=== PATIENT | male | born 1945 | race Caucasian/White ===

== ENCOUNTER 2017-10-16 05:05 | Observation (INO) | payer OTHER ==
[2017-10-16] MEDS ORDERED: D50W 25 GM/50 ML SYRINGE IV ONE ×2 (05:17→07:00)
[2017-10-16 05:52] LABS: Absolute Lymphocytes (CBC) 0.8 K/uL (0.7-4.9); Absolute Monocytes 0.8 K/uL (0.1-1.3); Absolute Neutrophil 6.9 K/uL (1.8-8.0); Basophils % 0.6 % (0-1.3); Eosinophils % 3.1 % (0-4.4); Hematocrit 25.1 % (39.6-49.0); Lymphocytes % 8.6 % (15.3-44.8); MCH 32.4 pg (27.0-35.0); MCV 94.5 fL (80-100); MPV 9.8 fL (7.6-11.3); Monocytes % 9.4 % (3.3-12.3); RBC Red Blood Cell Count 2.65 M/uL (4.33-5.43)
[2017-10-16 06:10] LABS: Protime INR 2.73
[2017-10-16 06:20] LABS: Albumin 2.8 g/dL (3.4-5.0); Bilirubin Direct 0.2 mg/dL (0-0.2); Bilirubin Total 0.5 mg/dL (0.2-1.0); CKMB Creatine Kinase MB 1.5 ng/mL (0.3-3.6); Magnesium 2.4 mg/dL (1.8-2.4); Potassium 3.4 mmol/L (3.5-5.1); Protein, Total 6.3 g/dL (6.4-8.2)
--- NOTE | 2017-10-16 06:49 | ER ---
Nurse's Notes [facility] Name: Fredi Moore Age: 71 yrs Sex: Male : 1945 Arrival Date: 10/16/2017 Time: 05:10 Bed 2 Private MD: Diagnosis: Type 2 diabetes mellitus;Hypokalemia;Weakness;Altered mental status, unspecified;End stage renal disease;Human immunodeficiency virus [HIV] disease Presentation: 10/16 05:10 Presenting complaint: EMS states: they were toned out for report of pt being bb unresponsive on their arrival pt had BGL of 33 they initiated 20 g IV to R AC and gave an amp of D50 along with Narcan 2 mg. Transition of care: patient was not received from another setting of care. Onset of symptoms was October 16, 2017. Risk Assessment: Do you want to hurt yourself or someone else? Patient reports no desire to harm self or others. Initial Sepsis Screen: Does the patient meet any 2 criteria? No. Patient's initial sepsis screen is negative. Does the patient have a suspected source of infection? No. Patient's initial sepsis screen is negative. Care prior to arrival: Medication(s) given: D50, 1 amp, Normal saline infusion, Narcan 2 mg IV initiated. 20 GA, in the right antecubital area, Glucose check: 33. 05:10 Method Of Arrival: EMS: [facility] bb 05:10 Acuity: LUCERO 2 bb Historical: - Allergies: 05:27 No Known Allergies; bb - Home Meds: 05:27 abacavir 300 mg Oral tab 1 tab 2 times per day [Active]; amlodipine 10 mg tab 1 tab bb once daily [Active]; atazanavir 300 mg Oral 1 cap once daily [Active]; atorvastatin 80 mg Oral tab 1 tab once daily [Active]; cyclosporin eye drops [Active]; furosemide 80 mg Oral tab 1 tab 2 times per day [Active]; gabapentin 300 mg oral cap 2 caps 3 times per day [Active]; hydroxyzine HCl 25 mg Oral tab 1 tab nightly [Active]; insulin asparte 10 units TID SQ [Active]; insulin glargine subcutaneous Sub-Q [Active]; lamivudine 100 mg Oral tab 0.5 tab once daily [Active]; ritonavir oral 100 mg oral 1 cap once daily [Active]; sevelamer HCl Oral 800mg, two tabs by mouth three times a day with meals. do not cursh [Active]; aspirin 81 mg Oral chew 1 tab once daily [Active]; - PMHx: 05:27 Diabetes - NIDDM; ESRD; Hypertension; HIV; colon cancer; bb - PSHx: 05:27 colon surgery; bb - Immunization history:: Adult Immunizations up to date. - Family history:: not pertinent. - Ebola Screening: : No symptoms or risks identified at this time. - Social history:: Smoking status: Patient/guardian denies using tobacco. Screenin:10 Abuse screen: Denies threats or abuse. Denies injuries from another. Nutritional lp1 screening: No deficits noted. Tuberculosis screening: No symptoms or risk factors identified. Fall Risk Total Barry Fall Scale indicates High Risk Score (45 or more points). Fall prevention measures have been instituted. Side Rails Up X 2 Family Present and informed to notify staff if the need to leave the bedside As available patient and family educated on Fall Prevention Program and Strategies. Assessment: 06:09 General: Appears in no apparent distress. Behavior is calm. Pain: Denies pain. Neuro: lp1 Level of Consciousness is awake, obeys commands, Oriented to person, place, situation. Cardiovascular: Patient's skin is warm and dry. Dialysis shunt: in the left bicep. Respiratory: Respiratory effort is even, unlabored, Respiratory pattern is regular, Breath sounds are clear bilaterally. GI: Abdomen is obese. : No signs and/or symptoms were reported regarding the genitourinary system. EENT: No signs and/or symptoms were reported regarding the EENT system. Derm: Skin is pink, warm \T\ dry. Musculoskeletal: Circulation, motion, and sensation intact. 07:04 Reassessment: Patient appears in no apparent distress at this time. Patient responsive, lp1 states feeling better, responding to questions but keeps eyes closed; eating turkey sandwich at this time. 08:00 Reassessment: Patient appears in no apparent distress at this time. Patient and/or ph family updated on plan of care and expected duration. Pain level reassessed. Patient is alert, oriented x 3, equal unlabored respirations, skin warm/dry/pink. Pt resting quietly, family at bedside. 08:55 Reassessment: Patient appears in no apparent distress at this time. Patient and/or ph family updated on plan of care and expected duration. Pain level reassessed. Patient is alert, oriented x 3, equal unlabored respirations, skin warm/dry/pink. Pt taken to inpatient room via stretcher, accompanied by pyrotechnician and family. Vital Signs: 05:27 BP 101 / 43; Pulse 61; Resp 16 S; Temp 96.2(TE); Pulse Ox 94% on R/A; Weight 113.4 kg bb (R); Height 5 ft. 11 in. (180.34 cm) (R); 06:19 BP 104 / 59; Pulse 54; Resp 14; Pulse Ox 95% on R/A; lp1 07:05 BP 126 / 70; Pulse 67; Resp 15; Pulse Ox 99% on R/A; lp1 08:30 BP 135 / 64; Pulse 56; Resp 16; Pulse Ox 100% on R/A; Pain 0/10; cc3 05:27 Body Mass Index 34.87 (113.40 kg, 180.34 cm) bb ED Course: 05:10 Patient arrived in ED. santi 05:10 Pan Jaramillo MD is Attending Physician. santi 05:14 Triage completed. bb 05:23 X-ray completed. Portable x-ray completed in exam room. Patient tolerated procedure kw well. 05:24 XRAY Chest (1 view) In Process Unspecified. EDMS 05:30 Arm band placed on Patient placed in an exam room, on a stretcher, on market editor, bb on pulse oximetry. 06:00 Maintain EMS IV. Dressing intact. Good blood return noted. Site clean \T\ dry. Gauge \T\ lp 1 site: 20g Right AC. 06:10 Patient has correct armband on for positive identification. Placed in gown. Bed in low lp1 position. Call light in reach. Side rails up X2. residential monitor on. Pulse ox on. NIBP on. 06:18 Lizzy Humphries RN is Primary Nurse. lp1 06:48 Nikki Napier MD is Hospitalizing Provider. santi 07:18 T\T\S collected, blood band applied to patient. eb 07:23 Type And Screen Sent. eb 07:47 CT completed. Patient tolerated procedure well. Patient moved to CT via stretcher. sj Patient moved back from CT. 08:30 Report given to EASTON Crabtree for room 211. cc3 09:07 No provider procedures requiring assistance completed. Patient admitted, IV remains in ph place. Administered Medications: 05:21 Drug: D50W 50 ml Route: IVP; Site: right antecubital; lp1 06:11 Follow up: Response: Blood sugar is elevated lp1 07:02 Drug: ProTONIX 40 mg Route: IVP; Site: right antecubital; lp1 07:26 Follow up: Response: No adverse reaction la1 07:04 Drug: D50W 50 ml Route: IVP; Site: right antecubital; lp1 07:51 Follow up: Response: Blood sugar is elevated la1 08:00 Drug: levofloxacin 500 mg Volume: 100 ml; Route: IVPB; Infused Over: 60 mins; Site: cc3 right antecubital; 09:08 Follow up: Response: No adverse reaction; IV Status: Completed infusion ph Point of Care Testing: Blood Glucose: 05:11 Blood Glucose: 55 mg/dL; pa 05:41 Blood Glucose: 131 mg/dL; bs1 06:53 Blood Glucose: 55 mg/dL; lp1 08:26 Blood Glucose: 167 mg/dL; cc3 Ranges: Outcome: 06:49 Decision to Hospitalize by Provider. [facility] 09:08 Admitted to Med/surg accompanied by tech, family with patient, via stretcher, room 211, with chart. 09:08 Condition: stable 09:08 Instructed on the need for admit. 09:10 Patient left the ED. Signatures: Dispatcher [employer] EDFL Pan Jaramillo MD MD cha Jones, Susan Sada Nolen RN RN Nataly Blunt Laura, RN RN lp1 Cordell Washington RN RN la1 Linh Navas RN RN Zeina Fink pa Claudia Epstein RN RN bs1 Leyda Hernández Charlene cc3 Corrections: (The following items were deleted from the chart) 05:38 05:27 BP 101 / 43; Pulse 61bpm; Resp 16bpm; Spontaneous; Pulse Ox 94% RA; 113.4 kg bb Reported; Height 5 ft. 11 in. Reported; BMI: 34.8; bb
--- NOTE | 2017-10-16 06:49 | EDPHYS ---
Physician Documentation [facility] Name: Fredi Moore Age: 71 yrs Sex: Male : 1945 Arrival Date: 10/16/2017 Time: 05:10 Bed 2 Private MD: CÉSAR Physician Pan Jaramillo HPI: 10/16 05:12 This 71 yrs old Male presents to ER via Unassigned with complaints of santi hypoglycemia. 05:12 This 71 yrs old Male presents to ER via Unassigned with complaints of santi hypoglycemia. 05:12 ams, weak. The patient presents with confusion, decreased mental status, trouble santi concentrating. Onset: The symptoms/episode began/occurred just prior to arrival, this morning. Possible causes: low blood sugar. Associated signs and symptoms: Pertinent positives: confusion. Current symptoms: In the emergency department the patient's symptoms have improved, moderately. Patient's baseline: Neuro: alert and fully oriented. Severity of symptoms: At their worst the symptoms were moderate in the emergency department the symptoms have improved moderately. The patient has experienced similar episodes in the past, a few times. Historical: - Allergies: 05:27 No Known Allergies; bb - Home Meds: 05:27 abacavir 300 mg Oral tab 1 tab 2 times per day [Active]; amlodipine 10 mg tab 1 tab bb once daily [Active]; atazanavir 300 mg Oral 1 cap once daily [Active]; atorvastatin 80 mg Oral tab 1 tab once daily [Active]; cyclosporin eye drops [Active]; furosemide 80 mg Oral tab 1 tab 2 times per day [Active]; gabapentin 300 mg oral cap 2 caps 3 times per day [Active]; hydroxyzine HCl 25 mg Oral tab 1 tab nightly [Active]; insulin asparte 10 units TID SQ [Active]; insulin glargine subcutaneous Sub-Q [Active]; lamivudine 100 mg Oral tab 0.5 tab once daily [Active]; ritonavir oral 100 mg oral 1 cap once daily [Active]; sevelamer HCl Oral 800mg, two tabs by mouth three times a day with meals. do not cursh [Active]; aspirin 81 mg Oral chew 1 tab once daily [Active]; - PMHx: 05:27 Diabetes - NIDDM; ESRD; Hypertension; HIV; colon cancer; bb - PSHx: 05:27 colon surgery; bb - Immunization history:: Adult Immunizations up to date. - Family history:: not pertinent. - Ebola Screening: : No symptoms or risks identified at this time. - Social history:: Smoking status: Patient/guardian denies using tobacco. ROS: 05:12 Constitutional: Negative for fever, chills, and weight loss, Eyes: Negative for injury, santi pain, redness, and discharge, ENT: Negative for injury, pain, and discharge, Neck: Negative for injury, pain, and swelling, Cardiovascular: Negative for chest pain, palpitations, and edema, Respiratory: Negative for shortness of breath, cough, wheezing, and pleuritic chest pain, Abdomen/GI: Negative for abdominal pain, nausea, vomiting, diarrhea, and constipation, Back: Negative for injury and pain, : Negative for injury, bleeding, discharge, and swelling, MS/Extremity: Negative for injury and deformity, Skin: Negative for injury, rash, and discoloration, Psych: Negative for depression, anxiety, suicide ideation, homicidal ideation, and hallucinations, Allergy/Immunology: Negative for hives, rash, and allergies, Endocrine: Negative for neck swelling, polydipsia, polyuria, polyphagia, and marked weight changes, Hematologic/Lymphatic: Negative for swollen nodes, abnormal bleeding, and unusual bruising. 05:12 Neuro: Positive for altered mental status, weakness. Exam: 05:12 Constitutional: This is a well developed, well nourished patient who is awake, alert, santi and in no acute distress. Head/Face: Normocephalic, atraumatic. Eyes: Pupils equal round and reactive to light, extra-ocular motions intact. Lids and lashes normal. Conjunctiva and sclera are non-icteric and not injected. Cornea within normal limits. Periorbital areas with no swelling, redness, or edema. ENT: Nares patent. No nasal discharge, no septal abnormalities noted. Tympanic membranes are normal and external auditory canals are clear. Oropharynx with no redness, swelling, or masses, exudates, or evidence of obstruction, uvula midline. Mucous membranes moist. Neck: Trachea midline, no thyromegaly or masses palpated, and no cervical lymphadenopathy. Supple, full range of motion without nuchal rigidity, or vertebral point tenderness. No Meningismus. Chest/axilla: Normal chest wall appearance and motion. Nontender with no deformity. No lesions are appreciated. Cardiovascular: Regular rate and rhythm with a normal S1 and S2. No gallops, murmurs, or rubs. Normal PMI, no JVD. No pulse deficits. Respiratory: Lungs have equal breath sounds bilaterally, clear to auscultation and percussion. No rales, rhonchi or wheezes noted. No increased work of breathing, no retractions or nasal flaring. Abdomen/GI: Soft, non-tender, with normal bowel sounds. No distension or tympany. No guarding or rebound. No evidence of tenderness throughout. Back: No spinal tenderness. No costovertebral tenderness. Full range of motion. Male : Normal genitalia with no discharge or lesions. Skin: Warm, dry with normal turgor. Normal color with no rashes, no lesions, and no evidence of cellulitis. MS/ Extremity: Pulses equal, no cyanosis. Neurovascular intact. Full, normal range of motion. Psych: Awake, alert, with orientation to person, place and time. Behavior, mood, and affect are within normal limits. 05:12 Neuro: Orientation: is normal, appropriate for stated age, no acute changes, Mentation: slow to respond, Memory: is normal, appropriate for stated age, no acute changes, Cranial nerves: grossly normal, is grossly normal based on the patient's age, no acute changes, Cerebellar function: is grossly normal, is grossly normal based on the patient's age, Motor: is normal, is grossly normal based on the patient's age, Gait: Deep tendon reflexes are 2+ (normal) in the bilateral brachioradialis, bicep, tricep and patellar and Achilles tendons, seizure activity, is not displayed by the patient. Vital Signs: 05:27 BP 101 / 43; Pulse 61; Resp 16 S; Temp 96.2(TE); Pulse Ox 94% on R/A; Weight 113.4 kg bb (R); Height 5 ft. 11 in. (180.34 cm) (R); 06:19 BP 104 / 59; Pulse 54; Resp 14; Pulse Ox 95% on R/A; lp1 07:05 BP 126 / 70; Pulse 67; Resp 15; Pulse Ox 99% on R/A; lp1 08:30 BP 135 / 64; Pulse 56; Resp 16; Pulse Ox 100% on R/A; Pain 0/10; cc3 05:27 Body Mass Index 34.87 (113.40 kg, 180.34 cm) bb MDM: 05:[address] [facility] 05:17 Data reviewed: vital signs, nurses notes, lab test result(s), EKG, radiologic studies, santi plain films. 10/16 05:11 Order name: Basic Metabolic Panel; Complete Time: 06:[address] [facility] 10/16 05:11 Order name: CBC with Diff; Complete Time: 06:[address] [facility] 10/16 05:11 Order name: Ckmb; Complete Time: 06:[address] [facility] 10/16 05:11 Order name: CPK; Complete Time: 06:[address] [facility] 10/16 05:11 Order name: LFT's; Complete Time: 06:[address] [facility] 10/16 05:11 Order name: Magnesium; Complete Time: 06:[address] [facility] 10/16 05:11 Order name: NT PRO-BNP; Complete Time: 06:[address] [facility] 10/16 05:11 Order name: PT-INR; Complete Time: 06:[address] [facility] 10/16 05:11 Order name: Ptt, Activated; Complete Time: 06:[address] [facility] 10/16 05:11 Order name: Troponin (emerg Dept Use Only); Complete Time: 06:[address] [facility] 10/16 06:47 Order name: Type And Screen [facility] 10/16 07:29 Order name: Blood Culture Adult (2) [facility] 10/16 07:42 Order name: Glucose, Ancillary Testing [facility] 10/16 07:42 Order name: Glucose, Ancillary Testing [facility] 10/16 05:11 Order name: XRAY Chest (1 view); Complete Time: 07:[address] [facility] 10/16 05:11 Order name: EKG; Complete Time: 05:[address] [facility] 10/16 05:11 Order name: Diet Regular; Complete Time: 05:[address] [facility] 10/16 07:29 Order name: CT Chest Wo Con [facility] 10/16 07:42 Order name: Glucose, Ancillary Testing [facility] 10/16 07:42 Order name: Glucose, Ancillary Testing [facility] 10/16 08:06 Order name: CT [facility] 10/16 08:27 Order name: Glucose, Ancillary Testing [facility] 10/16 08:32 Order name: Hemoglobin A1c [facility] 10/16 08:32 Order name: T4 Free [facility] 10/16 08:32 Order name: Thyroid Stimulating Hormone [facility] 10/16 08:34 Order name: Cortisol [facility] 10/16 05:11 Order name: Cardiac monitoring; Complete Time: 05:[address] [facility] 10/16 05:11 Order name: EKG - Nurse/Tech; Complete Time: 05:[address] [facility] 10/16 05:11 Order name: IV Saline Lock; Complete Time: 05:[address] [facility] 10/16 05:11 Order name: Labs collected and sent; Complete Time: 05:[address] [facility] 10/16 05:11 Order name: O2 Per Protocol; Complete Time: 05:[address] [facility] 10/16 05:11 Order name: O2 Sat Monitoring; Complete Time: 05:[address] [facility] 10/16 05:12 Order name: Blood Glucose Level; Complete Time: 05:13 [place] 10/16 06:55 Order name: CONS Physician Consult; Complete Time: 07:51 EDMS Administered Medications: 05:21 Drug: D50W 50 ml Route: IVP; Site: right antecubital; lp1 06:11 Follow up: Response: Blood sugar is elevated lp1 07:02 Drug: ProTONIX 40 mg Route: IVP; Site: right antecubital; lp1 07:26 Follow up: Response: No adverse reaction la1 07:04 Drug: D50W 50 ml Route: IVP; Site: right antecubital; lp1 07:51 Follow up: Response: Blood sugar is elevated la1 08:00 Drug: levofloxacin 500 mg Volume: 100 ml; Route: IVPB; Infused Over: 60 mins; Site: cc3 right antecubital; 09:08 Follow up: Response: No adverse reaction; IV Status: Completed infusion ph Point of Care Testing: Blood Glucose: 05:11 Blood Glucose: 55 mg/dL; mt 05:41 Blood Glucose: 131 mg/dL; bs1 06:53 Blood Glucose: 55 mg/dL; lp1 08:26 Blood Glucose: 167 mg/dL; cc3 Ranges: Critical Glucose Levels:Adult <50 mg/dl or >400 mg/dl <40 mg/dl or >180 mg/dl Disposition: 10/16/17 06:49 Hospitalization ordered by Nikki Naiper for Observation. Preliminary diagnosis are Type 2 diabetes mellitus, Hypokalemia, Weakness, Altered mental status, unspecified, End stage renal disease, Human immunodeficiency virus [HIV] disease. - Bed requested for Telemetry/MedSurg (observation). - Status is Observation. ph - Condition is Fair. - Problem is new. - Symptoms have improved. UTI on Admission? No Signatures: Dispatcher [employer] [facility] Ling Vitael RN RN dw Anderson, Corey, MD MD cha Ballard, Brenda, RN RN bb Lizzy Humphries RN RN lp1 Linh Navas RN RN Aleks [facility] ErichConstanza 3 Cordell Washington RN la1 Corrections: (The following items were deleted from the chart) 06:49 06:49 Hospitalization Ordered by Nikki Napier MD for Observation. Preliminary santi diagnosis is Type 2 diabetes mellitus; Hypokalemia; Weakness; Altered mental status, unspecified; End stage renal disease. Bed requested for Telemetry/MedSurg (observation). Status is Observation. Condition is Fair. Problem is new. Symptoms have improved. UTI on Admission? No. [facility] 06:55 06:54 CONS Physician Consult ordered. [facility] 08:04 06:49 10/16/2017 06:49 Hospitalization Ordered by Nikki Napier MD for Observation. dw Preliminary diagnosis is Type 2 diabetes mellitus; Hypokalemia; Weakness; Altered mental status, unspecified; End stage renal disease; Human immunodeficiency virus [HIV] disease. Bed requested for Telemetry/MedSurg (observation). Status is Observation. Condition is Fair. Problem is new. Symptoms have improved. UTI on Admission? No. [facility] 09:10 08:04 10/16/2017 06:49 Hospitalization Ordered by Nikki Napier MD for Observation. ph Preliminary diagnosis is Type 2 diabetes mellitus; Hypokalemia; Weakness; Altered mental status, unspecified; End stage renal disease; Human immunodeficiency virus [HIV] disease. Bed requested for Telemetry/MedSurg (observation). Status is Observation. Condition is Fair. Problem is new. Symptoms have improved. UTI on Admission? No. dw
[2017-10-16] MEDS ORDERED: D50W 25 GM/50 ML SYRINGE IV PRN (06:53)
[2017-10-16] MEDS ORDERED: GLUCAGON 1 MG/VIAL IM PRN (06:53)
[2017-10-16] MEDS ORDERED: PANTOPRAZOLE 40 MG INJ ONE (06:56)
--- NOTE | 2017-10-16 07:19 | RAD REPORT ---
EXAM DESCRIPTION: RAD - Chest Single View - 10/16/2017 5:26 am CLINICAL HISTORY: Unresponsive, shortness of breath COMPARISON: January 2017 TECHNIQUE: AP portable chest image was obtained 0514 hours . FINDINGS: Lung volumes are low. There is no dense consolidation. However, mid and lower left lung fi eld markings are prominent and greater than seen on the right. Trachea is midline. Heart and vasculat ure are normal. No measurable pleural effusion and no pneumothorax. No gross bony abnormality seen. N o acute aortic findings suspected. IMPRESSION: Shallow inspiration film suspicious for left lung field pneumonia.
[2017-10-16] MEDS ORDERED: MORPHINE 2 MG/ML SYR IV PRN (07:22)
[2017-10-16] MEDS ORDERED: ACETAMINOPHEN 500 MG TAB PO PRN (07:22)
[2017-10-16] MEDS ORDERED: ONDANSETRON 4 MG/2 ML VIAL IV PRN (07:22)
[2017-10-16] MEDS: INSULIN -REGULAR HUMAN 50 UNIT/0.5 ML ML SQ SCH ×4 (07:30→21:38)
--- NOTE | 2017-10-16 07:33 | P.HP ---
Certification for Inpatient Patient admitted to: Observation With expected LOS: <2 Midnights Patient will require the following post-hospital care: None Practitioner: I am a practitioner with admitting privileges, knowledge of patient current condition, hospital course, and medical plan of care. Services: Services provided to patient in accordance with Admission requirements found in Title 42 Section 412.3 of the Code of Federal Regulations Patient History Date of Service: 10/16/17 Reason for admission: Unresponsive History of Present Illness: Patient is a 71-year-old gentleman who came into the hospital unresponsive. Patient's was having a hard time waking him up. She tried on multiple occasions but since she was unsuccessful she called 911. EMS arrived and found patient be hypoglycemic. I am not sure of the exact number. Patient was brought into the emergency room and given dextrose. Patient was also is started on a diet. He clinically is more awake and alert. Patient states he is feeling cool and lethargic. He will need to be admitted to the hospital for evaluation. Allergies No Known Allergies Allergy (Unverified 01/30/17 17:00) Home Medications: Abacavir Sulfate [Ziagen] 2 tab PO DAILY 01/30/17 Amlodipine Besylate 10 mg PO DAILY 01/30/17 Atazanavir Sulfate [Reyataz] 300 mg PO DAILY 01/30/17 Atorvastatin Calcium [Lipitor] 80 mg PO BEDTIME 01/30/17 Doxycycline Hyclate 100 mg PO BID 01/30/17 Furosemide 80 mg PO BID 01/30/17 Gabapentin [Neurontin*] 2 tab PO DAILY 01/30/17 Insulin Aspart [Novolog] 10 unit SQ TID 01/30/17 Metoprolol Succinate [Toprol Xl] 100 mg PO DAILY 01/30/17 Ritonavir [Norvir] 1 tab PO DAILY 01/30/17 Sevelamer Carbonate 2 tab PO TID 01/30/17 Vit B Comp&C/Folic Acid/Vit D3 [Dialyvite 800 Plus D Wafer] 1 tab PO DAILY 01/30 hydrOXYzine pamoate [Hydroxyzine Pamoate] 1 tab PO BEDTIME 01/30/17 lamiVUDine [Lamivudine] 50 mg PO DAILY 01/30/17 Aspirin [Aspirin EC 325 MG] 325 mg PO DAILY #30 tablet. 02/01/17 - Past Medical/Surgical History Diabetic: Yes -: diabetes NIDDM -: HTN -: ESRD -: Dialysis -: HIV infection -: partial removal of colon -: appendectomy -: fistula to left arm - Family History Father Family History: Reviewed- Non-Contributory - Social History Alcohol use: No CD- Drugs: No Caffeine use: Yes Review of Systems 10-point ROS is otherwise unremarkable Physical Examination - Vital Signs Temperature: 98 F Blood Pressure: 140/94 Pulse: 85 Respirations: 82 Pulse Ox (%): 98 - Physical Exam General: Alert, In no apparent distress, Oriented x3, Other (Slightly lethargic and confused) HEENT: Atraumatic, Normocephalic, PERRLA Neck: Supple, 2+ carotid pulse no bruit, JVD not distended, No Thyromegaly Respiratory: Clear to auscultation bilaterally, Normal air movement Cardiovascular: Regular rate/rhythm, Normal S1 S2, No murmurs Gastrointestinal: Normal bowel sounds, Hypoactive, Soft and benign, Non- distended Musculoskeletal: No clubbing, No swelling, No contractures Integumentary: No rashes Neurological: Normal gait, Normal speech, Normal strength at 5/5 x4 extr, Normal tone, Sensation intact, Cranial nerves 3-12 intact, Normal reflexes 2+ Lymphatics: No axilla or inguinal lymphadenopathy - Studies Laboratory Data (last 24 hrs) 10/16/17 05:20: PT 32.6 H, INR 2.73, APTT 52.2 H 10/16/17 05:20: WBC 8.9, Hgb 8.6 L, Hct 25.1 L, Plt Count 176 10/16/17 05:20: Sodium 136, Potassium 3.4 L, BUN 54 H, Creatinine 6.30 H*, Glucose 233 H, Magnesium 2.4, Total Bilirubin 0.5, AST 10 L, ALT 16, Alkaline Phosphatase 41 L Assessment & Plan - Problems (Diagnosis) (1) Hypoglycemia Current Visit: Yes Status: Acute (2) Unresponsive Current Visit: Yes Status: Acute (3) Hypertension Current Visit: Yes Status: Acute (4) ESRD (end stage renal disease) Onset Date: 01/31/17 Current Visit: No Status: Acute (5) Anemia, chronic renal failure Current Visit: Yes Status: Acute - Plan PLAN: 1. ACCUCHECKS QAC & HS. 2. CHECK HEMOGLOBIN A1C 3. NEPHROLOGY CONSULTATION 4. HEMODIALYSIS 5. BLOOD PRESSURE AND BLOOD SUGAR MONITORING CLOSELY 6. CHECK INSULIN LEVEL 7. GI AND DVT PROPHYLAXIS Discharge Plan: Home Plan to discharge in: Greater than 2 days - Advance Directives Does patient have a Living Will: No Does patient have a Durable POA for Healthcare: No - Code Status/Comfort Care Code Status Assessed: Yes Code Status: Full Code Critical Care: No Time Spent Managing PTS Care (In Minutes): 50
[2017-10-16] MEDS ORDERED: Levofloxacin500mg IV 500 MG/100 ML BAG IV ONE (07:44)
[2017-10-16] MEDS ORDERED: NA CHLORIDE 0.9% 1,000 ML IV SCH (08:00)
--- NOTE | 2017-10-16 08:05 | RAD REPORT ---
EXAM DESCRIPTION: CT - Thorax Wo Con - 10/16/2017 7:48 am CLINICAL HISTORY: Unresponsive, abnormal chest film, shortness of breath COMPARISON: Herbal chest October 16 TECHNIQUE: Axial 5 mm thick images of the chest were obtained without IV contrast. All CT scans are performed using dose optimization technique as appropriate and may include automated exposure control or mA/KV adjustment according to patient size. FINDINGS: No large mass or consolidation identifiable. There is a trace amount of alveolar opacifica tion in the right upper lobe abutting the minor fissure. Scarring and/ or atelectasis present in the medial gutter on the right. In the posterior left upper lobe adjacent to the fissure and in the super ior portion of the left lower lobe there is interstitial and sparse alveolar opacification. Scarring in the lateral gutter on the left present. Irregular patchy opacification present in the anteromedial base right middle lobe. No pleural thickening or pleural effusion. No pneumothorax. No abnormal mediastinal or hilar masses or lymphadenopathy seen. No gross aortic or pulmonary artery finding suspected. Borderline to mild cardiomegaly. No pericardial effusion. Aortic valve and Mcwilliams ry artery calcifications are present. No chest wall mass or abnormal axillary lymphadenopathy. IMPRESSION: Patchy interstitial and alveolar pneumonia changes are evident in the mid left lung fiel d as detailed as well is in the anterior base right middle lobe.
[2017-10-16 08:31] LABS: Thyroid Stimulating Hormone 1.34 uIU/mL (0.36-3.74)
[2017-10-16] MEDS ORDERED: AMLODIPINE 10 MG TAB PO SCH (09:00)
--- NOTE | 2017-10-16 09:00 | EKG ---
Test Date: 2017-10-16 Test Time: 05:13:48 Regional Liaison: MONALISA MEASUREMENT RESULTS: Intervals: Rate: 60 WI: QRSD: 100 QT: 494 QTc: 494 [place]: P: WI: QRS: -20 T: 56 INTERPRETIVE STATEMENTS: Atrial fibrillation Minimal voltage criteria for LVH, may be normal variant Prolonged QT Abnormal ECG Compared to ECG 01/30/2017 13:51:16 Left ventricular hypertrophy now present Prolonged QT interval now present Atrial flutter no longer present ST (T wave) deviation no longer present Electronically Signed On 10-16-17 09:00:19 CDT by Shahram Nelson
[2017-10-16] MEDS: NEPRO SHAKE 237 ML CAN PO SCH ×2 (10:40→21:38)
[2017-10-16] MEDS ORDERED: TEMAZEPAM 15 MG CAP PO PRN (17:33)
[2017-10-16] MEDS ORDERED: BENZONATATE 100 MG CAP PO PRN (17:35)
--- NOTE | 2017-10-16 17:38 | P.PN ---
Subjective Date of Service: 10/16/17 Chief Complaint: Unresponsive no new complaints Physical Examination - Vital Signs Temperature: 97.6 F Blood Pressure: 151/70 Pulse: 54 Respirations: 18 Pulse Ox (%): 97 - Physical Exam General: Alert, In no apparent distress HEENT: Atraumatic, PERRLA, EOMI Neck: Supple, JVD not distended Respiratory: Clear to auscultation bilaterally, Normal air movement Cardiovascular: Regular rate/rhythm, Normal S1 S2 Gastrointestinal: Normal bowel sounds, No tenderness Musculoskeletal: No tenderness Integumentary: No rashes Neurological: Normal speech, Normal tone, Normal affect Lymphatics: No axilla or inguinal lymphadenopathy - Studies Laboratory Data (last 24 hrs) 10/16/17 05:20: PT 32.6 H, INR 2.73, APTT 52.2 H 10/16/17 05:20: WBC 8.9, Hgb 8.6 L, Hct 25.1 L, Plt Count 176 10/16/17 05:20: Sodium 136, Potassium 3.4 L, BUN 54 H, Creatinine 6.30 H*, Glucose 233 H, Magnesium 2.4, Total Bilirubin 0.5, AST 10 L, ALT 16, Alkaline Phosphatase 41 L Medications List Reviewed: Yes Assessment And Plan - Current Problems (Diagnosis) (1) Anemia, chronic renal failure Current Visit: Yes Status: Acute (2) Hypoglycemia Current Visit: Yes Status: Acute (3) ESRD (end stage renal disease) Onset Date: 01/31/17 Current Visit: No Status: Acute - Plan --cont current meds --C peptide level --Dialysis --May DC tomorrow
[2017-10-16] MEDS ORDERED: HYDROCODONE/CHLORPHEN 5 ML/OSYR PO ONE (18:00)
--- NOTE | 2017-10-16 20:58 | P.CNS ---
Date of Consult: 10/16/17 Reason for Consult: ESRD Requesting Physician: Nikki Napier Chief Complaint: Unresponsive History of Present Illness: 71 yo WM CKD, HTN presented to the ER with PNA. Uncontrolled RLS. Persistent insomnia. Persistent Cough. Patient is a 71-year-old gentleman who came into the hospital unresponsive. Patient's was having a hard time waking him up. She tried on multiple occasions but since she was unsuccessful she called 911. EMS arrived and found patient be hypoglycemic. I am not sure of the exact number. Patient was brought into the emergency room and given dextrose. Patient was also is started on a diet. He clinically is more awake and alert. Patient states he is feeling cool and lethargic. He will need to be admitted to the hospital for evaluation. 05:12 This 71 yrs old Male presents to ER via Unassigned with complaints of santi hypoglycemia. 05:12 This 71 yrs old Male presents to ER via Unassigned with complaints of santi hypoglycemia. 05:12 ams, weak. The patient presents with confusion, decreased mental status, trouble santi concentrating. Onset: The symptoms/episode began/occurred just prior to arrival, this morning. Possible causes: low blood sugar. Associated signs and symptoms: Pertinent positives: confusion. Current symptoms: In the emergency department the patient's symptoms have improved, moderately. Patient's baseline: Neuro: alert and fully oriented. Severity of symptoms: At their worst the symptoms were moderate in the emergency department the symptoms have improved moderately. The patient has experienced similar episodes in the past, a few times. Allergies No Known Allergies Allergy (Verified 10/16/17 10:06) Home medications list reviewed: Yes Home Medications: Abacavir Sulfate [Ziagen] 2 tab PO DAILY 01/30/17 Amlodipine Besylate 10 mg PO DAILY 01/30/17 Atazanavir Sulfate [Reyataz] 300 mg PO DAILY 01/30/17 Atorvastatin Calcium [Lipitor] 80 mg PO BEDTIME 01/30/17 Furosemide 80 mg PO DAILY 01/30/17 Gabapentin [Neurontin*] 2 tab PO DAILY 01/30/17 Metoprolol Succinate [Toprol Xl] 100 mg PO DAILY 01/30/17 Ritonavir [Norvir] 1 tab PO DAILY 01/30/17 Sevelamer Carbonate 2 tab PO TID 01/30/17 Vit B Comp&C/Folic Acid/Vit D3 [Dialyvite 800 Plus D Wafer] 1 tab PO DAILY 01/30 hydrOXYzine pamoate [Hydroxyzine Pamoate] 1 tab PO BEDTIME 01/30/17 Pregabalin [Lyrica] 75 mg PO BID PRN 10/16/17 Tizanidine [Zanaflex] 4 mg PO BID 10/16/17 - Past Medical/Surgical History Diabetic: Yes -: diabetes NIDDM -: HTN -: ESRD -: Dialysis -: HIV infection -: partial removal of colon -: appendectomy -: fistula to left arm - Family History Father Medical History: Cancer Family History: Reviewed- Non-Contributory - Social History Alcohol use: No CD- Drugs: No Caffeine use: Yes Place of Residence: Home Review of Systems 10-point ROS is otherwise unremarkable General: Weakness, Malaise Respiratory: SOB with Excertion Cardiovascular: Edema Physical Examination Temp Pulse Resp BP Pulse Ox 97.6 F 54 18 151/70 H 97 10/16/17 17:38 10/16/17 17:38 10/16/17 17:38 10/16/17 17:38 10/16/17 17:38 General: Oriented x3, Cooperative HEENT: Atraumatic Neck: Supple Respiratory: Clear to auscultation bilaterally, Normal air movement Cardiovascular: Regular rate/rhythm, No rubs Gastrointestinal: Soft and benign, Non-distended Musculoskeletal: No clubbing, No contractures Integumentary: No rashes, No cyanosis Laboratory Data (last 24 hrs) 10/16/17 05:20: PT 32.6 H, INR 2.73, APTT 52.2 H 10/16/17 05:20: WBC 8.9, Hgb 8.6 L, Hct 25.1 L, Plt Count 176 10/16/17 05:20: Sodium 136, Potassium 3.4 L, BUN 54 H, Creatinine 6.30 H*, Glucose 233 H, Magnesium 2.4, Total Bilirubin 0.5, AST 10 L, ALT 16, Alkaline Phosphatase 41 L Imagings Data: Reason for Exam: COUGH Report Status: Signed EXAM DESCRIPTION: RAD - Chest Single View - 10/16/2017 5:26 am CLINICAL HISTORY: Unresponsive, shortness of breath COMPARISON: January 2017 TECHNIQUE: AP portable chest image was obtained 0514 hours . FINDINGS: Lung volumes are low. There is no dense consolidation. However, mid and lower left lung field markings are prominent and greater than seen on the right. Trachea is midline. Heart and vasculature are normal. No measurable pleural effusion and no pneumothorax. No gross bony abnormality seen. No acute aortic findings suspected. IMPRESSION: Shallow inspiration film suspicious for left lung field pneumonia. EXAM DESCRIPTION: CT - Thorax Wo José - 10/16/2017 7:48 am CLINICAL HISTORY: Unresponsive, abnormal chest film, shortness of breath COMPARISON: Herbal chest October 16 TECHNIQUE: Axial 5 mm thick images of the chest were obtained without IV contrast. All CT scans are performed using dose optimization technique as appropriate and may include automated exposure control or mA/KV adjustment according to patient size. FINDINGS: No large mass or consolidation identifiable. There is a trace amount of alveolar opacification in the right upper lobe abutting the minor fissure. Scarring and/ or atelectasis present in the medial gutter on the right. In the posterior left upper lobe adjacent to the fissure and in the superior portion of the left lower lobe there is interstitial and sparse alveolar opacification. Scarring in the lateral gutter on the left present. Irregular patchy opacification present in the anteromedial base right middle lobe. No pleural thickening or pleural effusion. No pneumothorax. No abnormal mediastinal or hilar masses or lymphadenopathy seen. No gross aortic or pulmonary artery finding suspected. Borderline to mild cardiomegaly. No pericardial effusion. Aortic valve and Coronary artery calcifications are present. No chest wall mass or abnormal axillary lymphadenopathy. IMPRESSION: Patchy interstitial and alveolar pneumonia changes are evident in the mid left lung field as detailed as well is in the anterior base right middle lobe. Conclusions/Impression: A/ ESRD on HD MWF. Hypokalemia. HTN with CKD. Anemia with CKD. Diastolic CHF, chronic. DM II with CKD. ABE/ Secondary HyperPTH. HIV. LLL PNA. RLS. P/ Continue current POC and Medications. Arrange for acute HD tomorrow. Agree with abx. Give cough medicine. Start ropinirole. PRBC transfusion as needed. Restart home medications as indicated. No NSAIDs. AM labs. Daily weight. Thank you kindly for the consultation.
[2017-10-16] MEDS ORDERED: ROPINIROLE HCL 1 MG TAB PO SCH (21:00)
[2017-10-16] MEDS ORDERED: EPOETIN ALFA 10,000 UNIT/ML SQ ONE (21:07)
[2017-10-16] MEDS ORDERED: NA CHLORIDE 0.9% 1,000 ML IV PRN (21:15)
[2017-10-16] MEDS ORDERED: EPOETIN ALFA 10,000 UNIT/ML VIAL IV SCH (21:15)
[2017-10-16] MEDS ORDERED: MANNITOL 25% 12.5 GM/50 ML VIAL IV PRN (21:15)
[2017-10-16] MEDS ORDERED: ALBUMIN HUMAN 25% 50 ML IV SCH (22:00)
[2017-10-17] MEDS ORDERED: METOPROLOL TAR 50 MG TAB PO ONE (00:30)
[2017-10-17] MEDS ORDERED: HYDRALAZINE HCL 20 MG/ML VIAL IV PRN (02:41)
[2017-10-17 05:53] LABS: Albumin 3.1 g/dL (3.4-5.0); Bilirubin Total 0.4 mg/dL (0.2-1.0); Magnesium 2.6 mg/dL (1.8-2.4); Phosphorus 8.5 mg/dL (2.5-4.9); Potassium 4.7 mmol/L (3.5-5.1); Protein, Total 6.9 g/dL (6.4-8.2)
[2017-10-17] MEDS: AMLODIPINE 10 MG TAB PO SCH ×2 (06:03→08:19)
[2017-10-17 06:32] LABS: Absolute Lymphocytes (CBC) 1.3 K/uL (0.7-4.9); Absolute Monocytes 1.1 K/uL (0.1-1.3); Absolute Neutrophil 7.9 K/uL (1.8-8.0); Basophils % 0.7 % (0-1.3); Eosinophils % 5.3 % (0-4.4); Hematocrit 30.3 % (39.6-49.0); MCV 93.4 fL (80-100); MPV 10.1 fL (7.6-11.3); Monocytes % 10.3 % (3.3-12.3); RBC Red Blood Cell Count 3.24 M/uL (4.33-5.43)
[2017-10-17] MEDS: INSULIN -REGULAR HUMAN 50 UNIT/0.5 ML ML SQ SCH ×2 (07:30→11:30)
[2017-10-17] MEDS: SEVELAMER CARBONATE 800 MG TABLET PO SCH ×2 (08:20→12:00)
[2017-10-17] MEDS: NEPRO SHAKE 237 ML CAN PO SCH (08:23)
--- NOTE | 2017-10-17 08:55 | RAD REPORT ---
EXAM DESCRIPTION: RAD - Chest Single View - 10/17/2017 6:30 am CLINICAL HISTORY: dyspnea Chest pain. COMPARISON: Chest Single View dated 10/16/2017; Chest Pa And Lat (2 Views) dated 01/31/2017; Chest Sin gle View dated 01/30/2017; CHEST SINGLE VIEW dated 05/02/2010; Thorax Wo Con dated 10/16/2017 FINDINGS: Portable technique limits examination quality. Mild ill-defined left lower lobe pulmonary opacities are noted, probably related to atelectasis. Over all, lung aeration appears stable since 10/16/2017. The heart is mildly enlarged in size. No displace d fractures. IMPRESSION: Stable chest since 10/16/2017 study.
[2017-10-17] MEDS ORDERED: METOPROLOL XL 50 MG TAB PO SCH (09:00)
[2017-10-17] MEDS ORDERED: CALCITROL 0.25 MCG CAP PO SCH (09:00)
[2017-10-17] MEDS ORDERED: VITAMIN D 5,000 UNIT CAP PO SCH (09:00)
--- NOTE | 2017-10-17 15:36 | P.DS ---
Admission Date: 10/16/17 Discharge Date: 10/17/17 Disposition: ROUTINE DISCHARGE Discharge Condition: FAIR Reason for Admission: Unresponsive - Problems (1) Anemia, chronic renal failure Onset Date: 10/17/17 Current Visit: Yes Status: Acute (2) Hypoglycemia Onset Date: 10/17/17 Current Visit: Yes Status: Acute (3) ESRD (end stage renal disease) Onset Date: 01/31/17 Current Visit: No Status: Acute Brief History of Present Illness: Patient is a 71-year-old gentleman who came into the hospital unresponsive. Patient's was having a hard time waking him up. She tried on multiple occasions but since she was unsuccessful she called 911. EMS arrived and found patient be hypoglycemic. I am not sure of the exact number. Patient was brought into the emergency room and given dextrose. Patient was also is started on a diet. He clinically is more awake and alert. Patient states he is feeling cool and lethargic. He will need to be admitted to the hospital for evaluation Hospital Course: He was admitted for hypoglycemia. He has no more episodes. He is discharged home in stable condition. Vital Signs/Physical Exam: Temp Pulse Resp BP Pulse Ox 97.7 F 66 16 187/82 H 98 10/17/17 08:00 10/17/17 08:20 10/17/17 08:00 10/17/17 08:20 10/17/17 08:00 General: Alert, In no apparent distress HEENT: Atraumatic, PERRLA, EOMI Neck: Supple, JVD not distended Respiratory: Clear to auscultation bilaterally, Normal air movement Cardiovascular: Regular rate/rhythm, Normal S1 S2 Gastrointestinal: Normal bowel sounds, No tenderness Musculoskeletal: No tenderness Integumentary: No rashes Neurological: Normal speech, Normal tone, Normal affect Lymphatics: No axilla or inguinal lymphadenopathy Laboratory Data at Discharge: WBC 11.0 K/uL (4.3-10.9) H D 10/17/17 04:45 Hgb 10.4 g/dL (13.6-17.9) L 10/17/17 04:45 Hct 30.3 % (39.6-49.0) L D 10/17/17 04:45 Plt Count 226 K/uL (152-406) D 10/17/17 04:45 PT 32.6 SECONDS (9.5-12.5) H 10/16/17 05:20 INR 2.73 10/16/17 05:20 APTT 52.2 SECONDS (24.3-36.9) H 10/16/17 05:20 Sodium 138 mmol/L (136-145) 10/17/17 04:45 Potassium 4.7 mmol/L (3.5-5.1) 10/17/17 04:45 BUN 76 mg/dL (7-18) H D 10/17/17 04:45 Creatinine 7.90 mg/dL (0.55-1.3) H* D 10/17/17 04:45 Glucose 161 mg/dL (74-106) H 10/17/17 04:45 Phosphorus 8.5 mg/dL (2.5-4.9) H 10/17/17 04:45 Magnesium 2.6 mg/dL (1.8-2.4) H 10/17/17 04:45 Total Bilirubin 0.4 mg/dL (0.2-1.0) 10/17/17 04:45 AST 13 U/L (15-37) L 10/17/17 04:45 ALT 18 U/L (12-78) 10/17/17 04:45 Alkaline Phosphatase 56 U/L (45-117) 10/17/17 04:45 Home Medications: Abacavir Sulfate [Ziagen] 2 tab PO DAILY 01/30/17 Amlodipine Besylate 10 mg PO DAILY 01/30/17 Atazanavir Sulfate [Reyataz] 300 mg PO DAILY 01/30/17 Atorvastatin Calcium [Lipitor] 80 mg PO BEDTIME 01/30/17 Furosemide 80 mg PO DAILY 01/30/17 Gabapentin [Neurontin*] 2 tab PO DAILY 01/30/17 Ritonavir [Norvir] 1 tab PO DAILY 01/30/17 Sevelamer Carbonate 2 tab PO TID 01/30/17 Vit B Comp&C/Folic Acid/Vit D3 [Dialyvite 800 Plus D Wafer] 1 tab PO DAILY 01/30 hydrOXYzine pamoate [Hydroxyzine Pamoate] 1 tab PO BEDTIME 01/30/17 Pregabalin [Lyrica*] 75 mg PO BID PRN 10/16/17 Tizanidine [Zanaflex*] 4 mg PO BID 10/16/17 Benzonatate [Tessalon Perle*] 100 mg PO TID PRN #30 cap 10/17/17 Calcitrol [Rocaltrol*] 0.5 mcg PO DAILY #30 cap 10/17/17 Cholecalciferol (Vitamin D3) [Vitamin D 5,000 IU Cap*] 5,000 unit PO DAILY #30 cap 10/17/17 Metoprolol Succinate [Toprol Xl*] 50 mg PO DAILY #30 tab 10/17/17 Ropinirole HCl [Requip*] 2 mg PO BEDTIME tab 10/17/17 Sevelamer Carbonate [Renvela*] 800 mg PO TIDWM tablet 10/17/17 Temazepam [Restoril*] 15 mg PO BEDTIME PRN PRN cap 10/17/17 New Medications: Benzonatate [Tessalon Perle*] 100 mg PO TID PRN #30 cap PRN Reason: Cough Calcitrol [Rocaltrol*] 0.5 mcg PO DAILY #30 cap Cholecalciferol (Vitamin D3) [Vitamin D 5,000 IU Cap*] 5,000 unit PO DAILY #30 cap Metoprolol Succinate [Toprol Xl*] 50 mg PO DAILY #30 tab Time spent managing pt's care (in minutes): 15
[2017-10-19 20:46] LABS: C-Peptide 4.8 ng/mL (0.80-3.85)
== END 2017-10-17 16:35 | disposition home or self-care (01) ==
LOC: ER 05:05 → ERHOLD 06:50 → 2ND 08:38
PROVIDERS: ADMIT Hospitalist; ATTEND Hospitalist
DX: E11.649 Type 2 diabetes mellitus with hypoglycemia without coma (principal); J18.9 Pneumonia, unspecified organism; I13.2 Hypertensive heart and chronic kidney disease with heart failure and with stage 5 chronic kidney disease, or end stage renal disease; E11.22 Type 2 diabetes mellitus with diabetic chronic kidney disease; N18.6 End stage renal disease; I50.32 Chronic diastolic (congestive) heart failure; Z99.2 Dependence on renal dialysis; D63.1 Anemia in chronic kidney disease; Z21 Asymptomatic human immunodeficiency virus [HIV] infection status; E87.6 Hypokalemia
CPT/HCPCS: 36415 ×2; 71045 ×2; 71250; 80048; 80053; 80076; 82533; 82550; 82553; 82962 ×11; 83036 ×2; 83525; 83735 ×2; 83880; 84100; 84439; 84443; 84484; 84681; 85025 ×2; 85610; 85730; 86850; 86900; 86901; 87040 ×2; 93005; 96365; 96375; 99285; C9113; G0257; G0378 ×2; Q4081; J0885

== ENCOUNTER 2017-11-12 02:51 | Observation (INO) | payer OTHER ==
[2017-11-12] MEDS ORDERED: D50W 25 GM/50 ML SYRINGE IV ONE ×2 (03:06→05:35)
[2017-11-12 04:22] LABS: Absolute Lymphocytes (CBC) 1.1 K/uL (0.7-4.9); Absolute Monocytes 0.7 K/uL (0.1-1.3); Basophils % 0.6 % (0-1.3); Eosinophils % 4.6 % (0-4.4); Hematocrit 29.3 % (39.6-49.0); MCH 32.7 pg (27.0-35.0); MCV 95.3 fL (80-100); MPV 9.4 fL (7.6-11.3); Monocytes % 8.7 % (3.3-12.3); RBC Red Blood Cell Count 3.08 M/uL (4.33-5.43)
[2017-11-12 04:23] LABS: Protime INR 1.56
[2017-11-12] MEDS ORDERED: ACETAMINOPHEN 500 MG TAB PO PRN (04:26)
[2017-11-12] MEDS ORDERED: MORPHINE 2 MG/ML SYR IV PRN (04:26)
[2017-11-12] MEDS ORDERED: ONDANSETRON 4 MG/2 ML VIAL IV PRN (04:26)
[2017-11-12 04:35] LABS: Albumin 3.4 g/dL (3.4-5.0); Bilirubin Direct 0.2 mg/dL (0-0.2); Bilirubin Total 0.8 mg/dL (0.2-1.0); CKMB Creatine Kinase MB 1.4 ng/mL (0.3-3.6); Magnesium 2.6 mg/dL (1.8-2.4); Potassium 3.7 mmol/L (3.5-5.1); Protein, Total 7.1 g/dL (6.4-8.2); Troponin (Emerg Dept Use Only) 0.06 ng/mL (0.0-0.045)
--- NOTE | 2017-11-12 04:36 | ER ---
Nurse's Notes [facility] Name: Fredi Moore Age: 71 yrs Sex: Male : 1945 Arrival Date: 11/12/2017 Time: 02:54 Bed 28 Private MD: Diagnosis: Altered mental status. Hypoglycemia. Chronic renal disease Presentation: 11/12 02:55 Presenting complaint: EMS states: pt called due to AMS. pt FSBG 40 upon EMS ak1 arrival. pt given 1/2 amp D50 IV and 1 Liter NS bolus. pt is due for dialysis at 0500 today. Transition of care: patient was not received from another setting of care. Onset of symptoms was November 12, 2017. Risk Assessment: Do you want to hurt yourself or someone else? Patient reports no desire to harm self or others. Initial Sepsis Screen: Does the patient meet any 2 criteria? No. Patient's initial sepsis screen is negative. Does the patient have a suspected source of infection? No. Patient's initial sepsis screen is negative. Note pt has dialysis M/W/F. shunt to left upper arm. Care prior to arrival: None. 02:55 Method Of Arrival: EMS: [facility] ak1 02:55 Acuity: LUCERO 3 ak1 Triage Assessment: 02:59 General: Appears in no apparent distress. Behavior is calm, cooperative, appropriate ak1 for age. Pain: Denies pain. EENT: No signs and/or symptoms were reported regarding the EENT system. Neuro: Level of Consciousness is awake, alert, obeys commands, Oriented to person, place, time, situation, [employer] are equal bilaterally Moves all extremities. Gait is steady, Speech is normal, Facial symmetry appears normal. Cardiovascular: No deficits noted. Respiratory: No deficits noted. GI: No signs and/or symptoms were reported involving the gastrointestinal system. : No signs and/or symptoms were reported regarding the genitourinary system. Derm: No signs and/or symptoms reported regarding the dermatologic system. Musculoskeletal: No signs and/or symptoms reported regarding the musculoskeletal system. Historical: - Allergies: : No Known Allergies; ak1 - Home Meds: :59 abacavir 300 mg Oral tab 1 tab 2 times per day [Active]; amlodipine 10 mg tab 1 tab ak1 once daily [Active]; aspirin 81 mg Oral chew 1 tab once daily [Active]; atazanavir 300 mg Oral 1 cap once daily [Active]; atorvastatin 80 mg Oral tab 1 tab once daily [Active]; cyclosporin eye drops [Active]; furosemide 80 mg Oral tab 1 tab 2 times per day [Active]; gabapentin 300 mg Oral cap 2 caps 3 times per day [Active]; hydroxyzine HCl 25 mg Oral tab 1 tab nightly [Active]; insulin asparte 10 units TID SQ [Active]; insulin glargine subcutaneous Sub-Q [Active]; lamivudine 100 mg Oral tab 0.5 tab once daily [Active]; sevelamer HCl Oral 800mg, two tabs by mouth three times a day with meals. do not cursh [Active]; ritonavir 100 mg Oral 1 cap once daily [Active]; - PMHx: 02:59 colon cancer; ESRD; Diabetes - NIDDM; HIV; Hypertension; ak1 - PSHx: 02:59 colon surgery; ak1 - Immunization history:: Adult Immunizations unknown. - Social history:: Smoking status: unknown. - Ebola Screening: : No symptoms or risks identified at this time. Screenin:01 Abuse screen: Denies threats or abuse. Denies injuries from another. Nutritional ak1 screening: No deficits noted. Tuberculosis screening: No symptoms or risk factors identified. Fall Risk None identified. Assessment: 02:59 Reassessment: Dr Owens notified pt BGL 67 new order received. Pt medicated see MAY. bb 03:27 Reassessment: verbal orders from Dr. Owens while at pt bedside for hourly FSBG and meal ak1 tray. will continue to monitor. . 03:38 Reassessment: pt remains drowsy. no meal tray available, pt given protein meal ak1 replacement drink and crackers from the 2nd floor. 04:10 Reassessment: pt took in 4oz [employer] nutrition and 4 crackers. will re ak1 check FSBG at 0420.. 07:05 Reassessment: REPORT GIVEN TO NIRAV MCCORMACK. ak1 Vital Signs: 02:55 BP 164 / 82; Pulse 61; Resp 18; Pulse Ox 98% on R/A; Weight 113.4 kg (R); Height 5 ft. ak1 11 in. (180.34 cm) (R); Pain 0/10; 04:07 Temp 97.0(TE); ak1 07:20 BP 153 / 72; Pulse 64; Resp 18; Temp 97.0; Pulse Ox 99% on R/A; ph 02:55 Body Mass Index 34.87 (113.40 kg, 180.34 cm) ak1 ED Course: 02:54 Patient arrived in ED. ak1 02:57 Triage completed. ak1 02:59 Arm band placed on Patient placed in an exam room, on a stretcher, on pulse oximetry. ak1 03:01 Sandee Ferro, RN is Primary Nurse. ak1 03:01 Patient has correct armband on for positive identification. Bed in low position. Call ak1 light in reach. Side rails up X 1. Adult w/ patient. Pulse ox on. NIBP on. 03:17 David Owens MD is Attending Physician. pkl 04:03 X-ray completed. Portable x-ray completed in exam room. Patient tolerated procedure kw well. 04:04 XRAY Chest (1 view) In Process Unspecified. EDMS 04:27 Maintain EMS IV. Dressing intact. Good blood return noted. Site clean \T\ dry. Gauge \T\ ak 1 site: 20g right AC. 04:34 Nikki Napier MD is Hospitalizing Provider. pkl 05:40 No provider procedures requiring assistance completed. Patient admitted, IV remains in ak1 place. Administered Medications: 03:05 Drug: D50W 25 ml Route: IVP; Site: right antecubital; jd3 03:53 Follow up: Response: No adverse reaction ak1 03:29 Drug: D50W 25 ml Route: IVP; Site: right antecubital; jd3 03:53 Follow up: Response: No adverse reaction ak1 05:39 Drug: D50W 25 ml Route: IVP; Site: right antecubital; ak1 05:40 Follow up: Response: No adverse reaction ak1 Point of Care Testing: Blood Glucose: 02:59 Blood Glucose: 67 mg/dL; ak1 03:24 Blood Glucose: 85 mg/dL; ak1 04:20 Blood Glucose: 95 mg/dL; ak1 05:20 Blood Glucose: 67 mg/dL; ak1 07:20 Blood Glucose: 138 mg/dL; ph Ranges: Outcome: 04:35 Decision to Hospitalize by Provider. pkl 05:40 Admitted to ER Hold. Please see [email or web address] for further documentation. ak1 05:40 Condition: stable 05:40 Instructed on the need for admit. 09:18 Patient left the ED. sv Signatures: Dispatcher [employer] Neida Inman, RN RN David Zimmerman MD MD pkl Ballard, Brenda, RN RN bb Whitley, Kimberlee kw Krenek, Amber RN RN ak1 Linh Navas RN RN Toro Pisano RN RN jd3
--- NOTE | 2017-11-12 04:36 | EDPHYS ---
Physician Documentation [facility] Name: Fredi Moore Age: 71 yrs Sex: Male : 1945 Arrival Date: 11/12/2017 Time: 02:54 Bed 28 Private MD: ED Physician David Owens HPI: 11/12 03:25 This 71 yrs old Male presents to ER via EMS with complaints of Low Blood pkl Sugar. 03:25 The patient presents with decreased mental status. Onset: The symptoms/episode pkl began/occurred just prior to arrival. Possible causes: low blood sugar. Associated signs and symptoms: The patient has no apparent associated signs or symptoms. The patient has experienced similar episodes in the past, several times. Historical: - Allergies: :59 No Known Allergies; ak1 - Home Meds: 02:59 abacavir 300 mg Oral tab 1 tab 2 times per day [Active]; amlodipine 10 mg tab 1 tab ak1 once daily [Active]; aspirin 81 mg Oral chew 1 tab once daily [Active]; atazanavir 300 mg Oral 1 cap once daily [Active]; atorvastatin 80 mg Oral tab 1 tab once daily [Active]; cyclosporin eye drops [Active]; furosemide 80 mg Oral tab 1 tab 2 times per day [Active]; gabapentin 300 mg Oral cap 2 caps 3 times per day [Active]; hydroxyzine HCl 25 mg Oral tab 1 tab nightly [Active]; insulin asparte 10 units TID SQ [Active]; insulin glargine subcutaneous Sub-Q [Active]; lamivudine 100 mg Oral tab 0.5 tab once daily [Active]; sevelamer HCl Oral 800mg, two tabs by mouth three times a day with meals. do not cursh [Active]; ritonavir 100 mg Oral 1 cap once daily [Active]; - PMHx: 02:59 colon cancer; ESRD; Diabetes - NIDDM; HIV; Hypertension; ak1 - PSHx: 02:59 colon surgery; ak1 - Immunization history:: Adult Immunizations unknown. - Social history:: Smoking status: unknown. - Ebola Screening: : No symptoms or risks identified at this time. ROS: 03:25 Eyes: Negative for injury, pain, redness, and discharge, ENT: Negative for injury, pkl pain, and discharge, Neck: Negative for injury, pain, and swelling, Cardiovascular: Negative for chest pain, palpitations, and edema, Respiratory: Negative for shortness of breath, cough, wheezing, and pleuritic chest pain, Abdomen/GI: Negative for abdominal pain, nausea, vomiting, diarrhea, and constipation, Back: Negative for injury and pain, : Negative for injury, bleeding, discharge, and swelling, MS/Extremity: Negative for injury and deformity, Skin: Negative for injury, rash, and discoloration. 03:25 Neuro: Positive for altered mental status. Exam: 03:25 Head/Face: Normocephalic, atraumatic. Eyes: Pupils equal round and reactive to light, pkl extra-ocular motions intact. Lids and lashes normal. Conjunctiva and sclera are non-icteric and not injected. Cornea within normal limits. Periorbital areas with no swelling, redness, or edema. ENT: Nares patent. No nasal discharge, no septal abnormalities noted. Tympanic membranes are normal and external auditory canals are clear. Oropharynx with no redness, swelling, or masses, exudates, or evidence of obstruction, uvula midline. Mucous membranes moist. Neck: Trachea midline, no thyromegaly or masses palpated, and no cervical lymphadenopathy. Supple, full range of motion without nuchal rigidity, or vertebral point tenderness. No Meningismus. Chest/axilla: Normal chest wall appearance and motion. Nontender with no deformity. No lesions are appreciated. Cardiovascular: Regular rate and rhythm with a normal S1 and S2. No gallops, murmurs, or rubs. Normal PMI, no JVD. No pulse deficits. Respiratory: Lungs have equal breath sounds bilaterally, clear to auscultation and percussion. No rales, rhonchi or wheezes noted. No increased work of breathing, no retractions or nasal flaring. Abdomen/GI: Soft, non-tender, with normal bowel sounds. No distension or tympany. No guarding or rebound. No evidence of tenderness throughout. Back: No spinal tenderness. No costovertebral tenderness. Full range of motion. Skin: Warm, dry with normal turgor. Normal color with no rashes, no lesions, and no evidence of cellulitis. MS/ Extremity: Pulses equal, no cyanosis. Neurovascular intact. Full, normal range of motion. 03:25 Neuro: Orientation: appropriate for stated age, Mentation: slow to respond, Cranial nerves: grossly normal, Motor: is normal. Vital Signs: 02:55 BP 164 / 82; Pulse 61; Resp 18; Pulse Ox 98% on R/A; Weight 113.4 kg (R); Height 5 ft. ak1 11 in. (180.34 cm) (R); Pain 0/10; 04:07 Temp 97.0(TE); ak1 07:20 BP 153 / 72; Pulse 64; Resp 18; Temp 97.0; Pulse Ox 99% on R/A; ph 02:55 Body Mass Index 34.87 (113.40 kg, 180.34 cm) ak1 MDM: 03:17 Patient medically screened. pkl 04:33 Data reviewed: vital signs, nurses notes, lab test result(s), EKG, radiologic studies, pkl plain films. 11/12 03:48 Order name: Basic Metabolic Panel; Complete Time: 04:39 pkl 11/12 03:48 Order name: CBC with Diff; Complete Time: 04:39 pkl 11/12 03:48 Order name: Ckmb; Complete Time: 04:39 pkl 11/12 03:48 Order name: CPK; Complete Time: 04:39 pkl 11/12 03:48 Order name: LFT's; Complete Time: 04:39 pkl 11/12 03:48 Order name: Magnesium; Complete Time: 04:39 pkl 11/12 03:48 Order name: NT PRO-BNP; Complete Time: 04:39 pkl 11/12 03:48 Order name: PT-INR; Complete Time: 04:39 pkl 11/12 03:48 Order name: Ptt, Activated; Complete Time: 04:39 pkl 11/12 03:48 Order name: Troponin (emerg Dept Use Only); Complete Time: 04:39 pkl 11/12 04:29 Order name: Basic Metabolic Panel EDMS 11/12 04:29 Order name: Lipase EDMS 11/12 04:29 Order name: Magnesium EDMS 11/12 03:48 Order name: XRAY Chest (1 view) pkl 11/12 03:48 Order name: EKG; Complete Time: 03:49 pkl 11/12 03:48 Order name: Cardiac monitoring; Complete Time: 03:58 pkl 11/12 03:48 Order name: EKG - Nurse/Tech; Complete Time: 03:58 pkl 11/12 03:48 Order name: IV Saline Lock; Complete Time: 03:53 pkl 11/12 04:29 Order name: Phosphorus EDND 11/12 04:29 Order name: CONS Pharmacy Consult EDND 11/12 04:29 Order name: Heart Healthy EDND 11/12 04:29 Order name: CBC with Automated Diff EDND 11/12 04:29 Order name: Hemoglobin A1c EDND 11/12 04:29 Order name: CONS Physician Consult EDND 11/12 05:34 Order name: Urine Dipstick--Ancillary (enter results) ms 11/12 06:01 Order name: Urine Dipstick-Ancillary EDND 11/12 03:48 Order name: Labs collected and sent; Complete Time: 03:53 pkl 11/12 03:48 Order name: O2 Per Protocol; Complete Time: 03:53 pkl 11/12 03:48 Order name: O2 Sat Monitoring; Complete Time: 03:53 pkl 11/12 03:48 Order name: Urine Dipstick-Ancillary (obtain specimen); Complete Time: 05:41 pkl 11/12 03:48 Order name: Accucheck: q hourly; Complete Time: 03:53 pkl Administered Medications: 03:05 Drug: D50W 25 ml Route: IVP; Site: right antecubital; jd3 03:53 Follow up: Response: No adverse reaction ak1 03:29 Drug: D50W 25 ml Route: IVP; Site: right antecubital; jd3 03:53 Follow up: Response: No adverse reaction ak1 05:39 Drug: D50W 25 ml Route: IVP; Site: right antecubital; ak1 05:40 Follow up: Response: No adverse reaction ak1 Point of Care Testing: Blood Glucose: 02:59 Blood Glucose: 67 mg/dL; ak1 03:24 Blood Glucose: 85 mg/dL; ak1 04:20 Blood Glucose: 95 mg/dL; ak1 05:20 Blood Glucose: 67 mg/dL; ak1 07:20 Blood Glucose: 138 mg/dL; ph Ranges: Critical Glucose Levels:Adult <50 mg/dl or >400 mg/dl <40 mg/dl or >180 mg/dl Disposition: 11/12/17 04:35 Hospitalization ordered by Nikki Napier for Observation. Preliminary diagnosis is Altered mental status. Hypoglycemia. Chronic renal disease. - Bed requested for Telemetry/MedSurg (observation). - Status is Observation. sv - Condition is Stable. - Problem is new. - Symptoms are unchanged. UTI on Admission? No Signatures: Dispatcher [employer] EDMS Neida Avelar, RN EASTON sv Ling Vitale, RN RN David Bryson MD MD pkl Sada Nolen RN RN Yani Lui ms Angélicaapril, Sandee, RN RN ak1 Toro Remy, RN RN jd3 Corrections: (The following items were deleted from the chart) 03:50 03:49 HEMOGLOBIN A1C+CHEM A1C.LAB.BRZ ordered. [facility] EDMS 05:42 04:35 Hospitalization Ordered by Nikki Napier MD for Observation. Preliminary ms diagnosis is Altered mental status. Hypoglycemia. Chronic renal disease. Bed requested for Telemetry/MedSurg (observation). Status is Observation. Condition is Stable. Problem is new. Symptoms are unchanged. UTI on Admission? No. pkl 07:56 05:42 11/12/2017 04:35 Hospitalization Ordered by Nikki Napier MD for Observation. dw Preliminary diagnosis is Altered mental status. Hypoglycemia. Chronic renal disease. Bed requested for [facility] ER HOLD. Status is Observation. Condition is Stable. Problem is new. Symptoms are unchanged. UTI on Admission? No. ms 09:18 07:56 11/12/2017 04:35 Hospitalization Ordered by Nikki Napier MD for Observation. sv Preliminary diagnosis is Altered mental status. Hypoglycemia. Chronic renal disease. Bed requested for Telemetry/MedSurg (observation). Status is Observation. Condition is Stable. Problem is new. Symptoms are unchanged. UTI on Admission? No. dw
[2017-11-12] MEDS ORDERED: D5W 1,000 ML IV SCH (05:00)
[2017-11-12 06:00] LABS: Urine Glucose TRACE (NEG)
[2017-11-12 06:01] LABS: Urine Blood 1+ (NEG); Urine Protein 3+ (NEG); Urine pH 7.5 (5.0-7.0)
--- NOTE | 2017-11-12 07:43 | P.HP ---
Certification for Inpatient Patient admitted to: Observation With expected LOS: <2 Midnights Patient will require the following post-hospital care: None Practitioner: I am a practitioner with admitting privileges, knowledge of patient current condition, hospital course, and medical plan of care. Services: Services provided to patient in accordance with Admission requirements found in Title 42 Section 412.3 of the Code of Federal Regulations Patient History Date of Service: 11/12/17 Reason for admission: Hypoglycemia History of Present Illness: Patient is a 71-year-old who has a history of end-stage renal disease along with hypertension, diabetes type 2, colon cancer, and HIV. Patient has had frequent episodes of hypoglycemia and this is his 2nd admission to the hospital for hypoglycemic advanced. He continues to take his insulin. His last hemoglobin A1c about a month ago was 6.1. He probably does not need to take the large doses that he had been taking in the past as he is end-stage renal disease. He also is not sure what oral diabetic meds he takes but he knows he is taking them. Have advised to stop all insulin and diabetic meds unless were able to determine what he can and cannot take. He also needs to have his sugars monitored while in the hospital so with no if these at risk for hypoglycemia with a new medicine we put him on. I have repeated a A1c to see what his levels are at. Allergies No Known Allergies Allergy (Verified 10/16/17 10:06) Home Medications: Abacavir Sulfate [Ziagen] 2 tab PO DAILY 01/30/17 Amlodipine Besylate 10 mg PO DAILY 01/30/17 Atazanavir Sulfate [Reyataz] 300 mg PO DAILY 01/30/17 Atorvastatin Calcium [Lipitor] 80 mg PO BEDTIME 01/30/17 Furosemide 80 mg PO DAILY 01/30/17 Gabapentin [Neurontin*] 2 tab PO DAILY 01/30/17 Ritonavir [Norvir] 1 tab PO DAILY 01/30/17 Sevelamer Carbonate 2 tab PO TID 01/30/17 Vit B Comp&C/Folic Acid/Vit D3 [Dialyvite 800 Plus D Wafer] 1 tab PO DAILY 01/30 hydrOXYzine pamoate [Hydroxyzine Pamoate] 1 tab PO BEDTIME 01/30/17 Pregabalin [Lyrica*] 75 mg PO BID PRN 10/16/17 Tizanidine [Zanaflex*] 4 mg PO BID 10/16/17 Benzonatate [Tessalon Perle*] 100 mg PO TID PRN #30 cap 10/17/17 Calcitrol [Rocaltrol*] 0.5 mcg PO DAILY #30 cap 10/17/17 Cholecalciferol (Vitamin D3) [Vitamin D 5,000 IU Cap*] 5,000 unit PO DAILY #30 cap 10/17/17 Metoprolol Succinate [Toprol Xl*] 50 mg PO DAILY #30 tab 10/17/17 Ropinirole HCl [Requip*] 2 mg PO BEDTIME tab 10/17/17 Sevelamer Carbonate [Renvela*] 800 mg PO TIDWM tablet 10/17/17 Temazepam [Restoril*] 15 mg PO BEDTIME PRN PRN cap 10/17/17 - Past Medical/Surgical History Has patient received pneumonia vaccine in the past: No Diabetic: Yes -: diabetes NIDDM -: HTN -: ESRD -: Dialysis -: HIV infection -: COLON CANCER -: partial removal of colon -: appendectomy -: fistula to left arm - Family History Father Medical History: Cancer - Social History Smoking Status: Unknown if ever smoked Alcohol use: No CD- Drugs: No Caffeine use: Yes Place of Residence: Home Review of Systems Difficult to obtain because of altered mentation Physical Examination - Vital Signs Temperature: 98 Blood Pressure: 153/81 Pulse: 65 Respirations: 16 Pulse Ox (%): 97 - Physical Exam General: Alert, In no apparent distress, Oriented x3 HEENT: Atraumatic, Normocephalic Neck: Supple, 2+ carotid pulse no bruit, JVD not distended, No Thyromegaly, No LAD Respiratory: Clear to auscultation bilaterally, Normal air movement Cardiovascular: Regular rate/rhythm, Normal S1 S2, No murmurs Gastrointestinal: Normal bowel sounds, Soft and benign, Non-distended, No tenderness, No rebound, No guarding Musculoskeletal: No clubbing, No swelling, No warmth Integumentary: No rashes Neurological: Normal speech, Sensation intact, Cranial nerves 3-12 intact, Abnormal gait, Abnormal speech, Abnormal strength, Abnormal tone - Studies Laboratory Data (last 24 hrs) 11/12/17 03:30: PT 18.5 H, INR 1.56, APTT 36.5 11/12/17 03:30: WBC 8.2, Hgb 10.1 L, Hct 29.3 L, Plt Count 156 11/12/17 03:30: Sodium 139, Potassium 3.7, BUN 59 H, Creatinine 6.90 H*, Glucose 69 L, Magnesium 2.6 H, Total Bilirubin 0.8, AST 15, ALT 20, Alkaline Phosphatase 54 Assessment & Plan - Problems (Diagnosis) (1) Anemia, chronic renal failure Onset Date: 10/17/17 Current Visit: No Status: Acute (2) Atrial flutter Onset Date: 01/31/17 Current Visit: No Status: Acute (3) ESRD (end stage renal disease) Onset Date: 01/31/17 Current Visit: No Status: Acute (4) Hypertension Onset Date: 10/17/17 Current Visit: No Status: Acute (5) Hypoglycemia Onset Date: 10/17/17 Current Visit: No Status: Acute (6) Unresponsive Onset Date: 10/17/17 Current Visit: No Status: Acute - Plan Plan: 1. Patient needs to refrain from insulin use until we can get a better idea on what his blood sugars run day-to-day. 2. Check a hemoglobin A1c level 3. Consul nephrology for hemodialysis 4. May need to check insulin level, C-peptide level, and proinsulin level prior to discharge 5. Strict blood pressure and blood sugar control 6. GI and DVT prophylaxis Discharge Plan: Home Plan to discharge in: 48 Hours - Advance Directives Does patient have a Living Will: No Does patient have a Durable POA for Healthcare: No - Code Status/Comfort Care Code Status Assessed: Yes Code Status: Full Code Critical Care: No Time Spent Managing PTS Care (In Minutes): 50
--- NOTE | 2017-11-12 08:36 | RAD REPORT ---
EXAM DESCRIPTION: RAD - Chest Single View - 11/12/2017 4:04 am CLINICAL HISTORY: alterted mental status Chest pain. COMPARISON: Chest Single View dated 10/17/2017; Chest Single View dated 10/16/2017; Chest Pa And Lat ( 2 Views) dated 01/31/2017; Chest Single View dated 01/30/2017 FINDINGS: Portable technique limits examination quality. The lungs are grossly clear. The heart is normal in size. No displaced fractures. IMPRESSION: No acute intrathoracic process suspected.
[2017-11-12] MEDS ORDERED: PNEUMOCOCCAL VACCINE 0.5 ML IMVAC ONE (10:00)
[2017-11-12 11:52] LABS: Magnesium 2.8 mg/dL (1.8-2.4); Phosphorus 7.4 mg/dL (2.5-4.9); Potassium 4.6 mmol/L (3.5-5.1)
--- NOTE | 2017-11-12 12:10 | EKG ---
Test Date: 2017-11-12 Test Time: 03:58:14 Software Lead: MONALISA MEASUREMENT RESULTS: Intervals: Rate: 75 DC: QRSD: 92 QT: 454 QTc: 506 [place]: P: DC: QRS: -18 T: 61 INTERPRETIVE STATEMENTS: Undetermined rhythm Prolonged QT Abnormal ECG Compared to ECG 10/16/2017 05:13:48 Atrial fibrillation no longer present Left ventricular hypertrophy no longer present Electronically Signed On 11-12-17 12:08:30 CDT by Doe Shoemaker
[2017-11-12 13:27] LABS: Absolute Lymphocytes (CBC) 1.5 K/uL (0.7-4.9); Absolute Monocytes 0.8 K/uL (0.1-1.3); Absolute Neutrophil 7.3 K/uL (1.8-8.0); Basophils % 0.8 % (0-1.3); Eosinophils % 4.3 % (0-4.4); Hematocrit 31.3 % (39.6-49.0); Lymphocytes % 14.7 % (15.3-44.8); MCV 93.3 fL (80-100); MPV 9.8 fL (7.6-11.3); Monocytes % 8.1 % (3.3-12.3); RBC Red Blood Cell Count 3.36 M/uL (4.33-5.43)
[2017-11-12] MEDS ORDERED: BENZONATATE 100 MG CAP PO PRN (18:50)
[2017-11-12] MEDS ORDERED: TEMAZEPAM 15 MG CAP PO PRN (18:50)
[2017-11-12] MEDS ORDERED: PREGABALIN 75 MG CAP PO PRN (18:50)
[2017-11-12] MEDS ORDERED: FUROSEMIDE 40 MG/4 ML VIAL IV ONE (18:52)
[2017-11-12] MEDS ORDERED: HYDRALAZINE HCL 20 MG/ML VIAL IV ONE (18:52)
[2017-11-12] MEDS ORDERED: HYDRALAZINE HCL 20 MG/ML VIAL IV PRN (18:52)
--- NOTE | 2017-11-12 19:29 | CON ---
Date of Consultation: 11/12/2017 Reason For Consult: ESRD, on dialysis. History Of Present Illness: Mr. Moore is a 71-year-old male with past medical history significa nt for ESRD, on dialysis; history of hypertension; and type 2 diabetes. The patient is on insulin, p resented to [facility] with recurrent episodes of hypoglycemia. The patient states that he has had multiple episodes recently and has been eating hard candy to help with his hypoglycemia. The patient also has history of colon cancer and HIV. The patient was found to have severe hypoglycemia , has been started on D5 drip, and Nephrology is being consulted for his dialysis. Past Medical History: Significant for history of HIV, on medications; hypertension; chronic pain; ty pe 2 diabetes; with history of colon cancer and partial removal of colon; history of appendectomy; an d left arm fistula surgery. Family History: Significant for history of cancer in his father. Social History: No history of smoking or alcohol use reported at this time. Review of Systems: Positive for weakness, lethargy, recurrent episodes of hypoglycemia. Denies any chest pain or shortn ess of breath. Denies any abdominal pain, nausea, vomiting, or diarrhea. Denies any other drug abus e at this time. Physical Examination: Vital signs: Are showing temperature of 97.3, pulse rate of 65, respiratory rate 20, blood pressure 217/78. General: He appears in no acute distress. Lungs: Clear to auscultation. Heart: Auscultation of the heart revealed regular rate and rhythm. Abdomen: Soft and nontender. Extremities: Without any evidence of edema. Laboratory Data: Showing sodium of 138, potassium of 4.6, chloride of 100, BUN of 62, and creatinine of 7.4. CBC showing stable hemoglobin, hematocrit, and platelet count. Medications: Current medications include Tylenol, amlodipine 10 mg a day, D5 water at 30 cc an hour, Lasix 80 mg a day, metoprolol, morphine p.r.n. Home medications have been reviewed. The patient is on Levemir 60 units a day and Humalog 10 units w ith meals. Impression: 1.Hypoglycemia, secondary to possibly increased insulin usage. The patient was advised to stop the Humalog completely and cut down on the Levemir to 30 units a day and monitor his sugars closely. Als o, not clear if the patient is on any oral hypoglycemics at home. We will review his medications fro m the dialysis unit, and I have advised him to stop all oral hypoglycemic drugs as well. 2.End-stage renal disease, on dialysis. The patient is on Friday, Friday, Friday dialysis. 3.Anemia, related to chronic disease. 4.Human immunodeficiency virus, on medications. Plan: The patient is overall doing okay. We will go ahead and discontinue the D5 drip at this time. Monitor his sugars closely through dialysis, and if he is doing okay, he can be discharged off Lori log and with decreased dose of Levemir and off all oral hypoglycemic drugs. Other home medications c an be resumed. We will run an interaction check to see if any of the HIV medications, that he is on, can lead to recurrent episodes of hypoglycemia. MARIEL/JACK Voice ID: [id number] Report ID: [id number]
[2017-11-12] MEDS ORDERED: ROPINIROLE HCL 1 MG TAB PO SCH (21:00)
[2017-11-12] MEDS ORDERED: TIZANIDINE 4 MG TABLET PO SCH (21:00)
[2017-11-13] MEDS ORDERED: METOPROLOL XL 50 MG TAB PO SCH ×2 (06:00→09:00)
[2017-11-13] MEDS ORDERED: SEVELAMER CARBONATE 800 MG TABLET PO SCH (08:00)
[2017-11-13] MEDS ORDERED: GABAPENTIN 100 MG CAP PO SCH (09:00)
[2017-11-13] MEDS ORDERED: FUROSEMIDE 40 MG TABLET PO SCH (09:00)
[2017-11-13] MEDS ORDERED: AMLODIPINE 10 MG TAB PO SCH ×2 (09:00)
[2017-11-13] MEDS ORDERED: CALCITROL 0.25 MCG CAP PO SCH (09:00)
[2017-11-13] MEDS ORDERED: METOPROLOL TAR 50 MG TAB PO SCH (09:00)
[2017-11-13] MEDS ORDERED: VITAMIN D 5,000 UNIT CAP PO SCH (09:00)
[2017-11-13] MEDS ORDERED: ABACAVIR SULFATE PO SCH (09:00)
[2017-11-13] MEDS ORDERED: RITONAVIR PO SCH (09:00)
== END 2017-11-12 20:20 | disposition home or self-care (01) ==
LOC: ER 02:51 → ERHOLD 04:26 → 4TH 08:53
PROVIDERS: ADMIT Hospitalist; ATTEND Family Medicine
PROC: 5A1D70Z Performance of Urinary Filtration, Intermittent, Less than 6 Hours Per Day (ICD-10-PCS; principal; 2017-11-12)
DX: E11.649 Type 2 diabetes mellitus with hypoglycemia without coma (principal); E11.22 Type 2 diabetes mellitus with diabetic chronic kidney disease; I12.0 Hypertensive chronic kidney disease with stage 5 chronic kidney disease or end stage renal disease; N18.6 End stage renal disease; Z99.2 Dependence on renal dialysis; D63.1 Anemia in chronic kidney disease; Z79.4 Long term (current) use of insulin; Z21 Asymptomatic human immunodeficiency virus [HIV] infection status; G89.29 Other chronic pain; Z85.038 Personal history of other malignant neoplasm of large intestine; I48.92 Unspecified atrial flutter
CPT/HCPCS: 36415; 71045; 80048; 80076; 81003; 82550; 82553; 82962; 83036; 83690; 83735; 83880; 84100; 84484; 85025; 85610; 85730; 90935; 93005; 96374; 99285; G0257; G0378; J0360; J2270; J7060

== ENCOUNTER 2018-06-23 10:10 | Observation (INO) | payer OTHER ==
--- OUTSIDE RECORDS SUMMARY | 2018-06-23 10:12 | XMS REPORT ---
:1945 Author Organization [facility] Address [address] [place] [address] Care Team Providers Name Role Phone RUSSELL CALDERON Unavailable Unavailable Problems This patient has no known problems. Allergies, Adverse Reactions, Alerts This patient has no known allergies or adverse reactions. Medications This patient has no known medications. Results Test Description Test Time Test Comments Text Results Atomic Results Result Comments RAD, CHEST, 2 2018-03-23 18:51:00 Reason for FINAL REPORT PATIENT VIEWS exam:->ABNORMAL IMAGING ID: [id number] Chest, 2 RESULT views, 03/23/2018 6:20 PM. Comparison: None available. Discussion: The cardiac silhouette is mildly enlarged but the pulmonary vasculature is within normal limits. Linear opacities are present at the lung bases with minimal blunting of the costophrenic sulci. There are no acute osseous abnormalities. Left subclavian vascular stent is noted. The soft tissues are unremarkable. IMPRESSION: Mild cardiomegaly with bibasilar atelectasis and small bilateral pleural effusions, but no evidence of myla pulmonary edema. Signed: Gallo Delgado Verified Date/Time: 03/23/2018 18:51:08 Reading Location: [address] Consult Reading Room B-TYPE NATRIURETIC FACTOR (BNP) 2018-03-23 18:29:00 Test Item Value Reference Range Comments B-TYPE NATRIURETIC PEPTIDE (BEAKER) (test oaxw=034) 1420 pg/mL 0-100 RAPID [id number] 18:27:00 Test Item Value Reference Range Comments RAPID MYOGLOBIN (BEAKER) (test khkx=4817) 438 ng/mL <107 RAPID [id number] 18:27:00 Test Item Value Reference Range Comments RAPID CKMB (BEAKER) (test uqrc=1053) 3.2 ng/mL 0.0-4.3 RAPID TROPONIN [id number] 18:27:00 Test Item Value Reference Range Comments RAPID TROPONIN I (BEAKER) (test bgmo=6104) < ng/mL <0.05 [id number] 18:23:00 Test Item Value Reference Range Comments PROTIME (BEAKER) (test pytd=861) 11.3 seconds 9.8-12.0 INR (BEAKER) (test nwab=613) 1.1 <=5.9 PARTIAL THROMBOPLASTIN TIME (BEAKER) (test 22.5 seconds 25.8-34.5 lnln=623) RECOMMENDED COUMADIN/WARFARIN INR THERAPY RANGESSTANDARD DOSE: 2.0 - 3.0 Includes: PROPHYLAXIS forvenous thrombosis, systemic embolization; TREATMENT for venous thrombosis and/or pulmonary embolus.HIGH RISK: Target INR is 2.5-3.5 for patients with mechanical heart valves.BASIC METABOLIC [id number] 18:21: 00 Test Item Value Reference Range Comments SODIUM (BEAKER) (test 138 meq/L 135-148 rzuj=796) POTASSIUM (BEAKER) (test 4.7 meq/L 3.6-5.5 hnca=050) CHLORIDE (BEAKER) (test 99 meq/L 98-106 dztv=550) CO2 (BEAKER) (test 29 meq/L 24-32 asum=684) BLOOD UREA NITROGEN 36 mg/dL 10-26 (BEAKER) (test axqw=436) CREATININE (BEAKER) (test 5.15 mg/dL 0.50-1.20 ggsr=873) GLUCOSE RANDOM (BEAKER) 94 mg/dL 70-110 (test fztd=922) CALCIUM (BEAKER) (test 9.2 mg/dL 8.5-10.5 lady=825) EGFR (BEAKER) (test 11 mL/min/1.73 sq m ESTIMATED GFR IS NOT srgt=9122) ACCURATE CREATININE CLEARANCE IN PREDICTING GLOMERULAR FILTRATION RATE. ESTIMATED GFR IS NOT APPLICABLE FOR DIALYSIS PATIENTS. [id number] 18:18:00 Test Item Value Reference Range Comments MAGNESIUM (BEAKER) (test qgvv=035) 2.3 mg/dL 1.5-3.0 CREATINE KINASE (CK)2018-03-23 18:18:00 Test Item Value Reference Range Comments CREATINE KINASE TOTAL (BEAKER) (test pphz=622) 50 U/L 40-250 CBC W/PLT COUNT & AUTO [id number] 18:15:00 Test Item Value Reference Range Comments WHITE BLOOD CELL COUNT (BEAKER) (test ckkx=238) 9.3 K/ L 4.0-10.0 RED BLOOD CELL COUNT (BEAKER) (test udcj=075) 3.48 M/ L 4.20-5.80 HEMOGLOBIN (BEAKER) (test woou=280) 10.9 GM/DL 13.0-16.8 HEMATOCRIT (BEAKER) (test ytlv=658) 33.0 % 40.0-50.0 MEAN CORPUSCULAR VOLUME (BEAKER) (test hmvv=113) 94.8 fL 82.0-98.0 MEAN CORPUSCULAR HEMOGLOBIN (BEAKER) (test 31.2 pg 27.0-33.0 ikpm=431) MEAN CORPUSCULAR HEMOGLOBIN CONC (BEAKER) (test 32.9 GM/DL 32.0-36.0 rsix=571) RED CELL DISTRIBUTION WIDTH (BEAKER) (test 13.7 % 10.3-14.2 ghxe=732) PLATELET COUNT (BEAKER) (test qvnt=538) 277 K/CU MM 150-430 MEAN PLATELET VOLUME (BEAKER) (test sprl=677) 8.8 fL 6.5-10.5 NEUTROPHILS RELATIVE PERCENT (BEAKER) (test 72 % bffm=674) LYMPHOCYTES RELATIVE PERCENT (BEAKER) (test 15 % bnqg=124) MONOCYTES RELATIVE PERCENT (BEAKER) (test 9 % enzy=796) EOSINOPHILS RELATIVE PERCENT (BEAKER) (test 3 % apxb=851) BASOPHILS RELATIVE PERCENT (BEAKER) (test 1 % xfdf=029) NEUTROPHILS ABSOLUTE COUNT (BEAKER) (test 6.68 K/ L 1.80-8.00 fwyf=313) LYMPHOCYTES ABSOLUTE COUNT (BEAKER) (test 1.41 K/ L 1.48-4.50 hlty=299) MONOCYTES ABSOLUTE COUNT (BEAKER) (test 0.83 K/ L 0.00-1.30 hkhv=308) EOSINOPHILS ABSOLUTE COUNT (BEAKER) (test 0.32 K/ L 0.00-0.50 ouwk=496) BASOPHILS ABSOLUTE COUNT (BEAKER) (test 0.05 K/ L 0.00-0.20 svgm=693)
--- OUTSIDE RECORDS SUMMARY | 2018-06-23 10:12 | XMS REPORT | Clinical Summary ---
:1945 Author Organization [facility] Address [address] [place] [address] Care Team Providers Name Role Phone Unavailable Primary Care Provider Unavailable Allergies No Known Allergies Medications Medication Sig Dispensed Refills Start End Date Status Date insulin glargine Inject 60 Units 0 Active (LANTUS) 100 unit/mL subcutaneously injection nightly Use as directed . insulin aspart U-100 Inject 10 Units 0 Active (NOVOLOG) 100 unit/mL subcutaneously 3 InPn (three) times daily before meals. hydroCHLOROthiazide Take 25 mg by 0 Active (HYDRODIURIL) 25 MG mouth daily. tablet lamiVUDine (EPIVIR) 100 Take 100 mg by 0 Active MG tablet mouth 2 (two) times daily. amLODIPine (NORVASC) 10 Take 10 mg by 0 Active MG tablet mouth daily. metoprolol (LOPRESSOR) Take 100 mg by 0 Active 100 MG tablet mouth 2 (two) times daily. gabapentin (NEURONTIN) Take 600 mg by 0 Active 600 MG tablet mouth 3 (three) times daily. atorvastatin (LIPITOR) Take 80 mg by 0 Active 80 MG tablet mouth daily. atazanavir (REYATAZ) Take 300 mg by 0 Active 300 MG capsule mouth daily with breakfast. furosemide (LASIX) 40 Take 40 mg by 0 Active MG tablet mouth 2 (two) times daily. pregabalin (LYRICA) 75 Take 75 mg by 0 Active MG capsule mouth 2 (two) times daily. sevelamer (RENVELA) 800 Take 800 mg by 0 Active mg tablet mouth 3 (three) times daily with meals. ritonavir (NORVIR) 100 Take by mouth 2 0 Active mg capsule (two) times daily. warfarin (COUMADIN) 5 Take 1 tablet (5 20 tablet 0 03/23/19 Active MG tablet mg total) by mouth 9 20 daily. dilTIAZem (CARDIZEM SR) Take 1 capsule (60 20 capsule 0 Active 60 MG 12 hr capsule mg total) by mouth 9 20 2 (two) times daily. benzonatate (TESSALON) Take 1 capsule 30 capsule 0 03/30/19 100 MG capsule (100 mg total) by 9 19 mouth every 8 (eight) hours for 7 days. Active Problems Not on file Encounters Date Type Specialty Care Team Description 03/23/2018 Emergency Emergency Medicine Avel Dominguez MD SOB (shortness of breath) (Primary Dx); Typical atrial flutter (HCC); ESRD (end stage renal disease) (HCC) 03/23/2018 Orders Only General Internal Medicine 03/23/2018 Travel after 06/22/2017 Social History Tobacco Use Types Packs/Day Years Used Date Never Smoker Smokeless Tobacco: Never Used Alcohol Use Drinks/Week oz/Week Comments No Alcohol Habits Answer Date Recorded How often do you have a drink containing alcohol? Never 03/23/2018 How many drinks containing alcohol do you have on a typical Not asked day when you are drinking? How often do you have six or more drinks on one occasion? Not asked Sex Assigned at Date Recorded Not on file Job Start Date Occupation Industry Not on file Not on file Not on file Travel History Travel Start Travel End No recent travel history available. Last Filed Vital Signs Vital Sign Reading Time Taken Blood Pressure 135/56 03/23/2018 6:45 PM [employer] Pulse 88 03/23/2018 6:45 PM [employer] Temperature 36.7 C (98.1 F) 03/23/2018 5:31 PM [employer] Respiratory Rate 20 03/23/2018 5:31 PM [employer] Oxygen Saturation 96% 03/23/2018 6:45 PM [employer] Inhaled Oxygen Concentration - - Weight 111.6 kg (246 lb) 03/23/2018 5:31 PM [employer] Height 177.8 cm (5' 10") 03/23/2018 5:31 PM [employer] Body Mass Index 35.3 03/23/2018 5:31 PM [employer] Plan of Treatment Not on file Procedures Procedure Name Priority Date/Time Associated Comments Diagnosis REPORT OF PROCEDURE - 05/13/2018 3:40 ENDOSCOPY SCAN PM CDT RHYTHM STRIP - SCAN 03/26/2018 1:43 PM [employer] XR CHEST 2 VIEWS STAT 03/23/2018 6:17 Results for this PM [employer] procedure are in the results section. CBC W/PLT COUNT & AUTO STAT 03/23/2018 6:05 Results for this DIFFERENTIAL PM [employer] procedure are in the results section. CREATINE KINASE (CK) STAT 03/23/2018 6:05 Results for this PM [employer] procedure are in the results section. RAPID TROPONIN I STAT 03/23/2018 6:05 Results for this PM [employer] procedure are in the results section. B-TYPE NATRIURETIC STAT 03/23/2018 6:05 Results for this FACTOR (BNP) PM [employer] procedure are in the results section. RAPID CK-MB STAT 03/23/2018 6:05 Results for this PM [employer] procedure are in the results section. RAPID MYOGLOBIN STAT 03/23/2018 6:05 Results for this PM [employer] procedure are in the results section. PT/APTT STAT 03/23/2018 6:05 Results for this PM [employer] procedure are in the results section. CBC W/PLT COUNT & AUTO STAT 03/23/2018 6:05 Results for this DIFFERENTIAL PM [employer] procedure are in the results section. MAGNESIUM STAT 03/23/2018 6:05 Results for this PM [employer] procedure are in the results section. BASIC METABOLIC PANEL STAT 03/23/2018 6:05 Results for this (7) PM [employer] procedure are in the results section. ED ECG INTERPRETATION Routine 03/23/2018 5:42 Results for this PM [employer] procedure are in the results section. ECG 12-LEAD Routine 03/23/2018 5:38 PM [employer] Procedure Note - Interface, External Ris In - 03/23/2018 6:20 PM [employer] Ventricular Rate 126 BPM Atrial Rate 278 BPM QRS Duration 88 ms Q-T Interval 376 ms QTC Calculation(Bazett) 544 ms R [place] 28 degrees T [place] 85 degrees Atrial flutter with variable A-V block Abnormal ECG No previous ECGs available ECG 12-LEAD STAT 03/23/2018 5:38 PM [employer] after 06/22/2017 Results EKG-SCANNED (05/13/2018 3:40 PM CDT) Narrative Performed At RHYTHM STRIP - SCAN (03/26/2018 1:43 PM [employer]) Narrative Performed At XR chest 2 views (03/23/2018 6:17 PM [employer]) Specimen Narrative Performed At FINAL REPORT [facility] Chest, 2 views, 03/23/2018 6:20 PM. Comparison: None available. Discussion:The cardiac silhouette is mildly enlarged but the [...] of myla pulmonary edema. Signed: Gallo Delgado MD Report Verified Date/Time:03/23/2018 18:51:08 Reading Location: [facility] B1 C013W Consult Reading Room Procedure Note Interface, External Ris In - 03/23/2018 6:53 PM [employer] FINAL REPORT Chest, 2 views, 03/23/2018 6:20 PM. Comparison: None available. [...] of myla pulmonary edema. Signed: Gallo Delgado MD Report Verified Date/Time: 03/23/2018 18:51:08 Reading Location: [facility] B1 C013W Consult Reading Room Performing Organization Address City/[facility] Phone Number [facility] Rapid Myoglobin (03/23/2018 6:05 PM [employer]) Rapid Myoglobin 438 (H) <107 ng/mL [facility] Specimen Blood Performing Organization Address City/[facility]/Zipcode Phone Number [facility] [address] [place] [address] [facility] EMERGENCY [facility] Rapid Troponin I (03/23/2018 6:05 PM [employer]) Rapid Troponin I <0.05 <0.05 ng/mL [facility] Specimen Blood Performing Organization Address City/[facility] Hospitalcode Phone Number IFEANYI COYNE [address] [place] [address] [facility], [facility] [place] LABORATORY Rapid CK-MB (03/23/2018 6:05 PM [employer]) Rapid CKMB 3.2 0.0 - 4.3 ng/mL [facility] Specimen Blood Performing Organization Address [facility] Phone Number [facility] [address] [address] [facility], [facility] LABORATORY PT/PTT (03/23/2018 6:05 PM [employer]) Protime 11.3 9.8 - 12.0 seconds [facility] [place] [facility] INR 1.1 <=5.9 [facility] PTT 22.5 (L) 25.8 - 34.5 seconds [facility] Specimen Blood Narrative Performed At RECOMMENDED COUMADIN/WARFARIN INR THERAPY [facility] STANDARD DOSE: 2.0 - 3.0 Includes: EMER[facility]ENCY CENTER, [place] LABORATORY PROPHYLAXIS for venous thrombosis, systemic embolization; TREATMENT for venous thrombosis and/or pulmonary embolus. HIGH RISK: Target INR is 2.5-3.5 for patients with mechanical heart valves. Performing Organization Address [facility] Phone Number [address] [address] [place] [address] [facility], [facility] LABORATORY CBC with platelet count + automated diff (03/23/2018 6:05 PM [employer]) WBC 9.3 4.0 - 10.0 K/L [facility] RBC 3.48 (L) 4.20 - 5.80 M/L [facility] Hemoglobin 10.9 (L) 13.0 - 16.8 GM/DL [facility] Hematocrit 33.0 (L) 40.0 - 50.0 % [facility] MCV 94.8 82.0 - 98.0 fL [facility] MCH 31.2 27.0 - 33.0 pg [facility] MCHC 32.9 32.0 - 36.0 GM/DL [facility] RDW 13.7 10.3 - 14.2 % [facility] Platelets 277 150 - 430 K/CU MM [facility] MPV 8.8 6.5 - 10.5 fL [facility] % Neutros 72 % [facility] % Lymphs 15 % [facility] [place] [facility] % Monos 9 % [facility] % Eos 3 % [facility] [place] [facility] % Baso 1 % [facility] # Neutros 6.68 1.80 - 8.00 K/L [facility] # Lymphs 1.41 (L) 1.48 - 4.50 K/L [facility] # Monos 0.83 0.00 - 1.30 K/L [facility] [place] LAB[facility] # Eos 0.32 0.00 - 0.50 K/L [facility] [place] [facility] # Baso 0.05 0.00 - 0.20 K/L [facility] Specimen Blood Performing Organization Address City/[facility] Phone Number [address] [address] [facility] LABORATORY B-type Natriuretic Factor (BNP) (03/23/2018 6:05 PM [employer]) BNP 1,420 (H) 0 - 100 pg/mL [facility] Specimen Blood Performing Organization Address [facility] Phone Number [address] [address] [facility] LABORATORY Magnesium (03/23/2018 6:05 PM [employer]) Magnesium 2.3 1.5 - 3.0 mg/dL [facility] Specimen Blood Performing Organization Address [facility] Phone Number [address] [address] [phone] [place] [address] LABORATORY Creatine Kinase (CK) (03/23/2018 6:05 PM [employer]) Total CK 50 40 - 250 U/L [facility] Specimen Blood Performing Organization Address [facility] Phone Number [address] [address] [facility] LABORATORY Basic Metabolic Panel (03/23/2018 6:05 PM [employer]) Sodium 138 135 - 148 meq/L [facility], [facility], [place] LAB[facility] Potassium 4.7 3.6 - 5.5 meq/L [facility], [facility] LAB[facility] Chloride 99 98 - 106 meq/L [facility] CO2 29 24 - 32 meq/L [facility] BUN 36 (H) 10 - 26 mg/dL [facility] Creatinine 5.15 (H) 0.50 - 1.20 mg/dL [facility] Glucose 94 70 - 110 mg/dL [facility] Calcium 9.2 8.5 - 10.5 mg/dL [facility] [place] LAB[facility] EGFR 11Comment: ESTIMATED GFR IS mL/min/1.73 sq m [facility] NOT ACCURATE [facility], CREATININE CLEARANCE IN [facility], PREDICTING GLOMERULAR [facility] FILTRATION RATE. ESTIMATED GFR IS NOT APPLICABLE FOR DIALYSIS PATIENTS. Specimen Blood Performing Organization Address City/State/Zipcode Phone Number [facility] [place] [address] [place] [address] [facility] [place] LABORATORY ECG/EKG Interpretation (03/23/2018 5:42 PM [employer]) Narrative Performed At Avel Dominguez MD 03/23/20186:53 PM ECG/EKG Interpretation Date/Time: 03/23/2018 5:50 PM Performed by: Avel Dominguez MD Authorized by: Avel Dominguez MD The ECG was interpreted by ED physician. This ECG was not compared with previous ECG(s).The ECG is interpreted as atrial flutter. Rate is tachycardic. Conduction: conduction normal. ST segments abnormal. T waves normal. [place] is normal. Other findings: no other findings. Clinical Impression: dysrhythmia - atrial ECG 12 lead (03/23/2018 5:38 PM [employer]) Specimen Narrative Performed At Ventricular Rate 126 BPM GE MUSE Atrial Rate 278 BPM QRS Duration 88 ms Q-T Interval 376 ms QTC Calculation(Bazett) 544 ms R [place] 28 degrees T [place] 85 degrees Atrial flutter with variable A-V block Abnormal ECG No previous ECGs available Confirmed by Luci GARCIA MICHAEL ([id number]) on 03/24/2018 7:45:15 AM Procedure Note Interface, External Ris In - 03/24/2018 7:45 AM [employer] Ventricular Rate 126 BPM Atrial Rate 278 BPM QRS Duration 88 ms Q-T Interval 376 ms QTC Calculation(Bazett) 544 ms R [place] 28 degrees T [place] 85 degrees Atrial flutter with variable A-V block Abnormal ECG No previous ECGs available Confirmed by Luci GARCIA MICHAEL ([id number]) on 03/24/2018 7:45:15 AM Performing Organization Address City/State/Zipcode Phone Number GE MUSE after 06/22/2017 Insurance Payer Benefit Plan / Group Subscriber ID Type Phone Address MEDICARE MEDICARE A B xxxxxxxxxxx Medicare CIGNA - MGD CARE CIGNA [facility] xxxxxxxxxxx HMO/POS
--- NOTE | 2018-06-23 12:24 | RAD REPORT ---
EXAM DESCRIPTION: RAD - Chest Single View - 06/23/2018 12:13 pm CLINICAL HISTORY: COUGH Chest pain. COMPARISON: Chest Single View dated 11/12/2017; Chest Single View dated 10/17/2017; Chest Single View dated 10/16/2017; Chest Pa And Lat (2 Views) dated 01/31/2017 FINDINGS: Portable technique limits examination quality. Mild interstitial pulmonary edema is seen. The heart is moderately enlarged in size. No displaced fra ctures. IMPRESSION: Mild CHF versus volume overload pattern.
[2018-06-23 12:47] LABS: Absolute Lymphocytes (CBC) 0.6 K/uL (0.7-4.9); Absolute Monocytes 0.5 K/uL (0.1-1.3); Basophils % 0.7 % (0-1.3); Hematocrit 34.8 % (39.6-49.0); Lymphocytes % 6.4 % (15.3-44.8); MPV 9.4 fL (7.6-11.3); Monocytes % 5.8 % (3.3-12.3); RBC Red Blood Cell Count 3.72 M/uL (4.33-5.43)
[2018-06-23 12:48] LABS: Protime INR 1.08
[2018-06-23 13:09] LABS: Albumin 3.9 g/dL (3.4-5.0); Bilirubin Direct 0.2 mg/dL (0-0.2); Bilirubin Total 0.6 mg/dL (0.2-1.0); Magnesium 3.1 mg/dL (1.8-2.4); Potassium 4.7 mmol/L (3.5-5.1); Protein, Total 8.2 g/dL (6.4-8.2); Troponin (Emerg Dept Use Only) 0.06 ng/mL (0.0-0.045)
--- NOTE | 2018-06-23 13:40 | ER ---
Nurse's Notes [facility] Name: Fredi Moore Age: 72 yrs Sex: Male : 1945 Arrival Date: 06/23/2018 Time: 10:12 Bed 19 Private MD: Diagnosis: Dyspnea;End stage renal disease;Unspecified combined systolic (congestive) and diastolic (congestive) heart failure;Hypoxemia;Type 2 diabetes mellitus;Anemia, unspecified Presentation: 06/23 10:19 Presenting complaint: Patient states: vomiting on and off x 3-4 days ago, pt also c/o aa5 nasal drainage. Last Dialysis was on Friday. Transition of care: patient was not received from another setting of care. Onset of symptoms was June 2018. Risk Assessment: Do you want to hurt yourself or someone else? Patient reports no desire to harm self or others. Care prior to arrival: None. 10:19 Method Of Arrival: Wheelchair aa5 10:19 Acuity: LUCERO 3 aa5 10:22 Initial Sepsis Screen: Does the patient meet any 2 criteria? No. Patient's initial aa5 sepsis screen is negative. Does the patient have a suspected source of infection? No. Patient's initial sepsis screen is negative. Triage Assessment: 10:30 General: Appears in no apparent distress. uncomfortable, obese, Behavior is appropriate bp for age, anxious, uncooperative. Pain: Denies pain. EENT: No deficits noted. Neuro: Level of Consciousness is awake, alert, obeys commands, Oriented to person, place, time, situation, Appropriate for age. Cardiovascular: Rhythm is sinus rhythm. Respiratory: Airway is patent Respiratory effort is even, labored, Respiratory pattern is regular, symmetrical. GI: Reports vomiting. : No signs and/or symptoms were reported regarding the genitourinary system. Derm: No deficits noted. Musculoskeletal: Circulation, motion, and sensation intact. Range of motion: intact in all extremities. Historical: - Allergies: 10:20 No Known Allergies; aa5 - PMHx: 10:20 colon cancer; Diabetes - NIDDM; ESRD; HIV; Hypertension; aa5 10:20 Dialysis; aa5 - PSHx: 10:20 colon surgery; aa5 10:20 Dialysis fistula to left arm; aa5 - Immunization history:: Flu vaccine is up to date. - Social history:: Smoking status: Patient/guardian denies using tobacco. - Ebola Screening: : No symptoms or risks identified at this time. Screenin:51 Abuse screen: Denies threats or abuse. Denies injuries from another. Nutritional bp screening: No deficits noted. Tuberculosis screening: No symptoms or risk factors identified. Fall Risk None identified. Assessment: 10:30 General: SEE TRIAGE NOTE. bp 11:50 Reassessment: PT REFUSING PIV REPEATEDLY, NOTIFIED. PT AGREES TO ALLOW LAB TO bp ATTEMPT PHLEBOTOMY. 12:20 Reassessment: Blood drawn and sent to lab, pt refused IV. . aa5 15:07 Reassessment: PT DEBATING MD GABRIELA AT B/S TO TRACTOR OPERATOR LASER LEVELING PT ON OPTIONS. ADMIT ON HOLD bp PENDING NEPHROLOGY C/S. Vital Signs: 10:20 BP 156 / 101; Pulse 96; Resp 18 S; Temp 97.7(TE); Pulse Ox 97% on R/A; Weight 107.05 kg aa5 (R); Height 5 ft. 11 in. (180.34 cm) (R); Pain 0/10; 12:00 BP 157 / 105; Pulse 87; Resp 16; Pulse Ox 95% ; bp 13:30 BP 163 / 111; Pulse 93; Resp 20; Pulse Ox 95% ; bp 14:54 BP 161 / 112; Pulse 84; Resp 20; Pulse Ox 96% on R/A; bp 10:20 Body Mass Index 32.91 (107.05 kg, 180.34 cm) aa5 ED Course: 10:12 Patient arrived in ED. as 10:19 Triage completed. aa5 10:19 Arm band placed on. aa5 10:22 Dio Grimm, RN is Primary Nurse. bp 10:36 Pan Jaramillo MD is Attending Physician. santi 11:51 Patient has correct armband on for positive identification. Bed in low position. Call bp light in reach. Side rails up X2. Adult w/ patient. 12:13 X-ray completed. Portable x-ray completed in exam room. Patient tolerated procedure mh1 well. 12:14 XRAY Chest (1 view) In Process Unspecified. EDMS 13:16 EKG done, by [employer]fd[employer] technical architect. reviewed by Pan Jaramillo MD. tc 13:38 Radha Loja MD is Hospitalizing Provider. santi 16:24 No provider procedures requiring assistance completed. Patient did not have IV access iw during this emergency room visit. PT CONTINUES TO REFUSE. Administered Medications: No medications were administered Outcome: 13:39 Decision to Hospitalize by Provider. santi 16:24 Admitted to Med/surg accompanied by tech, family with patient, via wheelchair, room iw 212, with chart, Report called to AMANDA MCCORMACK 16:24 Condition: stable 16:24 Instructed on the need for admit. 16:36 Patient left the ED. bp Signatures: Dispatcher [employer] EDMS Pan Jaramillo MD MD cha Harvey, Martha mh1 Kristin Duffy Irene, RN RN iw Stacey Vega RN RN aa5 Janna Hemphill, psychology clinician EKG [facility] Dio Grimm RN RN bp Corrections: (The following items were deleted from the chart) 10:21 10:19 Presenting complaint: Patient states: vomiting on and off x 3-4 days ago, pt also aa5 c/o nasal drainage. aa5 10:23 10:19 Presenting complaint: Patient states: vomiting on and off x 3-4 days ago, pt also aa5 c/o nasal drainage. aa5 10:23 10:20 BP 156 / 101; Pulse 96bpm; Resp 18bpm; Spontaneous; Pulse Ox 97% RA; Temp 97.7F aa5 Temporal; aa5
--- NOTE | 2018-06-23 13:40 | EDPHYS ---
Physician Documentation [facility] Name: Fredi Moore Age: 72 yrs Sex: Male : 1945 Arrival Date: 06/23/2018 Time: 10:12 Bed 19 Private MD: ED Physician Pan Jaramillo HPI: 06/23 11:30 This 72 yrs old Male presents to ER via Wheelchair with complaints of Sinus santi Congestion, Vomiting. 11:30 The patient or guardian reports cough, difficulty breathing. Onset: The santi symptoms/episode began/occurred 1 day(s) ago. Severity of symptoms: At their worst the symptoms were mild, in the emergency department the symptoms are unchanged. Modifying factors: The symptoms are alleviated by nothing, the symptoms are aggravated by. Associated signs and symptoms: The patient has no apparent associated signs or symptoms. The patient has not experienced similar symptoms in the past. Historical: - Allergies: 10:20 No Known Allergies; aa5 - PMHx: 10:20 colon cancer; Diabetes - NIDDM; ESRD; HIV; Hypertension; aa5 10:20 Dialysis; aa5 - PSHx: 10:20 colon surgery; aa5 10:20 Dialysis fistula to left arm; aa5 - Immunization history:: Flu vaccine is up to date. - Social history:: Smoking status: Patient/guardian denies using tobacco. - Ebola Screening: : No symptoms or risks identified at this time. ROS: 11:31 Constitutional: Negative for fever, chills, and weight loss, Eyes: Negative for injury, santi pain, redness, and discharge, ENT: Negative for injury, pain, and discharge, Neck: Negative for injury, pain, and swelling, Cardiovascular: Negative for chest pain, palpitations, and edema, Respiratory: Negative for shortness of breath, cough, wheezing, and pleuritic chest pain, Back: Negative for injury and pain, : Negative for injury, bleeding, discharge, and swelling, MS/Extremity: Negative for injury and deformity, Skin: Negative for injury, rash, and discoloration, Neuro: Negative for headache, weakness, numbness, tingling, and seizure, Psych: Negative for depression, anxiety, suicide ideation, homicidal ideation, and hallucinations, Allergy/Immunology: Negative for hives, rash, and allergies, Endocrine: Negative for neck swelling, polydipsia, polyuria, polyphagia, and marked weight changes, Hematologic/Lymphatic: Negative for swollen nodes, abnormal bleeding, and unusual bruising. 11:31 Abdomen/GI: Positive for nausea and vomiting. Exam: 11:31 Constitutional: This is a well developed, well nourished patient who is awake, alert, santi and in no acute distress. Eyes: Pupils equal round and reactive to light, extra-ocular motions intact. Lids and lashes normal. Conjunctiva and sclera are non-icteric and not injected. Cornea within normal limits. Periorbital areas with no swelling, redness, or edema. ENT: Nares patent. No nasal discharge, no septal abnormalities noted. Tympanic membranes are normal and external auditory canals are clear. Oropharynx with no redness, swelling, or masses, exudates, or evidence of obstruction, uvula midline. Mucous membranes moist. Neck: Trachea midline, no thyromegaly or masses palpated, and no cervical lymphadenopathy. Supple, full range of motion without nuchal rigidity, or vertebral point tenderness. No Meningismus. Chest/axilla: Normal chest wall appearance and motion. Nontender with no deformity. No lesions are appreciated. Cardiovascular: Regular rate and rhythm with a normal S1 and S2. No gallops, murmurs, or rubs. Normal PMI, no JVD. No pulse deficits. Abdomen/GI: Soft, non-tender, with normal bowel sounds. No distension or tympany. No guarding or rebound. No evidence of tenderness throughout. Back: No spinal tenderness. No costovertebral tenderness. Full range of motion. Male : Normal genitalia with no discharge or lesions. Skin: Warm, dry with normal turgor. Normal color with no rashes, no lesions, and no evidence of cellulitis. MS/ Extremity: Pulses equal, no cyanosis. Neurovascular intact. Full, normal range of motion. Neuro: Awake and alert, GCS 15, oriented to person, place, time, and situation. Cranial nerves II-XII grossly intact. Motor strength 5/5 in all extremities. Sensory grossly intact. Cerebellar exam normal. Normal gait. Psych: Awake, alert, with orientation to person, place and time. Behavior, mood, and affect are within normal limits. 11:31 Head/face: Noted is tenderness, that is mild, of the right eye, right cheek, left cheek and left eye. 11:31 ENT: Posterior pharynx: Tonsils: bilaterally enlarged, with erythema, Uvula: edematous, erythema, swelling, that is mild, erythema, that is mild, exudate, is not appreciated. Vital Signs: 10:20 BP 156 / 101; Pulse 96; Resp 18 S; Temp 97.7(TE); Pulse Ox 97% on R/A; Weight 107.05 kg aa5 (R); Height 5 ft. 11 in. (180.34 cm) (R); Pain 0/10; 12:00 BP 157 / 105; Pulse 87; Resp 16; Pulse Ox 95% ; bp 13:30 BP 163 / 111; Pulse 93; Resp 20; Pulse Ox 95% ; bp 14:54 BP 161 / 112; Pulse 84; Resp 20; Pulse Ox 96% on R/A; bp 10:20 Body Mass Index 32.91 (107.05 kg, 180.34 cm) aa5 MDM: 10:36 Patient medically screened. [facility] 11:33 Data reviewed: vital signs, nurses notes, lab test result(s), EKG, radiologic studies, [facility] CT scan, plain films. 06/23 11:30 Order name: Basic Metabolic Panel [facility] 06/23 11:30 Order name: CBC with Diff [facility] 06/23 11:30 Order name: LFT's; Complete Time: 13:33 [facility] 06/23 11:30 Order name: Magnesium; Complete Time: 13:33 [facility] 06/23 11:30 Order name: NT PRO-BNP; Complete Time: 13:33 [facility] 06/23 11:30 Order name: PT-INR; Complete Time: 13:33 [facility] 06/23 11:30 Order name: Troponin (emerg Dept Use Only); Complete Time: 13:33 [facility] 06/23 11:30 Order name: Blood Culture Adult (2) [facility] 06/23 11:30 Order name: Procalcitonin; Complete Time: 13:33 [facility] 06/23 11:30 Order name: Lipase; Complete Time: 13:33 [facility] 06/23 11:31 Order name: Basic Metabolic Panel; Complete Time: 13:33 [facility] 06/23 11:34 Order name: Urine Culture [facility] 06/23 13:02 Order name: CBC Smear Scan [facility] 06/23 14:46 Order name: Urine Dipstick--Ancillary (enter results) 06/23 11:30 Order name: XRAY Chest (1 view); Complete Time: 12:48 [facility] 06/23 11:30 Order name: EKG; Complete Time: 11:32 [facility] 06/23 11:30 Order name: Cardiac monitoring; Complete Time: 11:47 [facility] 06/23 11:30 Order name: EKG - Nurse/Tech; Complete Time: 11:47 [facility] 06/23 11:30 Order name: Labs collected and sent; Complete Time: 12:29 [facility] 06/23 11:30 Order name: O2 Per Protocol; Complete Time: 11:47 [facility] 06/23 11:30 Order name: O2 Sat Monitoring; Complete Time: 11:47 [facility] 06/23 11:30 Order name: Urine Dipstick-Ancillary (obtain specimen); Complete Time: 15:08 [facility] 06/23 14:32 Order name: CONS Physician Consult [facility] 06/23 14:32 Order name: Heart Healthy [facility] 06/23 16:09 Order name: Diet Regular; Complete Time: 16:09 bd Administered Medications: No medications were administered Disposition: 06/23/18 13:39 Hospitalization ordered by Radha Loja for Inpatient Admission. Preliminary diagnosis are Dyspnea, End stage renal disease, Unspecified combined systolic (congestive) and diastolic (congestive) heart failure, Hypoxemia, Type 2 diabetes mellitus, Anemia, unspecified. - Bed requested for Telemetry/MedSurg (Inpatient). - Status is Inpatient Admission. bp - Condition is Fair. - Problem is new. - Symptoms have improved. UTI on Admission? No Signatures: Dispatcher [employer] [facility] JennyShilpi macias Pan Jaramillo MD MD cha Calderon, Audri, RN RN aa5 Dio Grimm, RN RN bp Corrections: (The following items were deleted from the chart) 12:29 11:30 IV Saline Lock ordered. [facility] aa5 15:17 13:39 Hospitalization Ordered by Radha Loja MD for Inpatient Admission. Preliminary bd diagnosis is Dyspnea; End stage renal disease; Unspecified combined systolic (congestive) and diastolic (congestive) heart failure; Hypoxemia; Type 2 diabetes mellitus; Anemia, unspecified. Bed requested for Telemetry/MedSurg (Inpatient). Status is Inpatient Admission. Condition is Fair. Problem is new. Symptoms have improved. UTI on Admission? No. santi 16:36 15:17 06/23/2018 13:39 Hospitalization Ordered by Radha Loja MD for Inpatient bp Admission. Preliminary diagnosis is Dyspnea; End stage renal disease; Unspecified combined systolic (congestive) and diastolic (congestive) heart failure; Hypoxemia; Type 2 diabetes mellitus; Anemia, unspecified. Bed requested for Telemetry/MedSurg (Inpatient). Status is Inpatient Admission. Condition is Fair. Problem is new. Symptoms have improved. UTI on Admission? No. bd
--- NOTE | 2018-06-23 14:58 | EKG ---
Test Date: 2018-06-23 Test Time: 12:23:06 Video Recorder Mechanic: SHERWIN MEASUREMENT RESULTS: Intervals: Rate: 110 NM: QRSD: 88 QT: 368 QTc: 498 [place]: P: NM: QRS: -51 T: 94 INTERPRETIVE STATEMENTS: Atrial fibrillation with rapid ventricular response Left axis deviation Nonspecific T wave abnormality, probably digitalis effect Abnormal ECG Compared to ECG 11/12/2017 03:58:14 Left-axis deviation now present T-wave abnormality now present Prolonged QT interval no longer present Electronically Signed On 06-23-18 14:56:46 CDT by Doe Shoemaker
[2018-06-23 15:29] LABS: Urine Blood 1+ (NEG); Urine Glucose 1+ (NEG); Urine Protein 3+ (NEG)
[2018-06-23] MEDS ORDERED: ONDANSETRON 4 MG/2 ML VIAL IV PRN (16:25)
--- NOTE | 2018-06-23 16:29 | P.HP ---
Certification for Inpatient Patient admitted to: Observation With expected LOS: <2 Midnights Patient will require the following post-hospital care: None Practitioner: I am a practitioner with admitting privileges, knowledge of patient current condition, hospital course, and medical plan of care. Services: Services provided to patient in accordance with Admission requirements found in Title 42 Section 412.3 of the Code of Federal Regulations Patient History Date of Service: 06/23/18 History of Present Illness: This is a 72-year-old male with significant past medical history of hypertension , diabetes, end-stage renal disease on Friday dialysis, HIV infection, valvular disease, diastolic heart failure, presented to the ED complaining of having some nausea and vomiting that started about 4-5 days ago. Patient stated that he has missed his dialysis since last week and the last time he went to his dialysis that he remembers office on Friday which was about 2 hr as well. Patient stated that he has not been to dialysis after that as he was not feeling well and he wanted to rest at home. Patient stated that his nausea vomiting started getting worse and thus he decided to come to the ER. Patient also started having some shortness of breath and was not able to lie flat at home. Patient stated that he had been doing well before that overall. Denies having any chest pain abdominal pain fever chills or any other associated symptoms at this time In the ER patient had extensive lab work and imaging done after which she was admitted to the hospital for CHF exacerbation most likely secondary to missed dialysis along with volume overload. Patient's vital signs were stable he was saturating okay on room air, blood pressure was on a little bit of an elevated side. Physical exam patient had a muscle twitch along with lethargy, crackles on lung exam along with edema of 2+ lower extremity. Allergies No Known Allergies Allergy (Verified 10/16/17 10:06) Home Medications: Abacavir Sulfate [Ziagen] 2 tab PO DAILY 01/30/17 Amlodipine Besylate 10 mg PO DAILY 01/30/17 Atazanavir Sulfate [Reyataz] 300 mg PO DAILY 01/30/17 Furosemide 80 mg PO DAILY 01/30/17 Gabapentin [Neurontin*] 2 tab PO DAILY 01/30/17 Ritonavir [Norvir] 1 tab PO DAILY 01/30/17 Sevelamer Carbonate 2 tab PO TID 01/30/17 Vit B Comp&C/Folic Acid/Vit D3 [Dialyvite 800 Plus D Wafer] 1 tab PO DAILY 01/30 hydrOXYzine pamoate [Hydroxyzine Pamoate] 1 tab PO BEDTIME 01/30/17 Pregabalin [Lyrica*] 75 mg PO BID PRN 10/16/17 Tizanidine [Zanaflex*] 4 mg PO BID 10/16/17 Benzonatate [Tessalon Perle*] 100 mg PO TID PRN #30 cap 10/17/17 Calcitrol [Rocaltrol*] 0.5 mcg PO DAILY #30 cap 10/17/17 Cholecalciferol (Vitamin D3) [Vitamin D 5,000 IU Cap*] 5,000 unit PO DAILY #30 cap 10/17/17 Metoprolol Succinate [Toprol Xl*] 50 mg PO DAILY #30 tab 10/17/17 Ropinirole HCl [Requip*] 2 mg PO BEDTIME tab 10/17/17 Sevelamer Carbonate [Renvela*] 800 mg PO TIDWM tablet 10/17/17 Temazepam [Restoril*] 15 mg PO BEDTIME PRN PRN cap 10/17/17 Astart Insulin 10 units SQ DAILY 11/12/17 Insulin Glargine,Hum.rec.anlog [Lantus] 60 unit SQ BEDTIME 11/12/17 - Past Medical/Surgical History Diabetic: Yes -: diabetes NIDDM -: HTN -: ESRD -: Dialysis -: HIV infection -: COLON CANCER -: partial removal of colon -: appendectomy -: fistula to left arm - Family History Father -: Cancer - Social History Alcohol use: No CD- Drugs: No Caffeine use: Yes Review of Systems 10-point ROS is otherwise unremarkable Physical Examination - Physical Exam General: Alert, Oriented x3, Acute distress, Other (Lethargic) HEENT: Atraumatic, PERRLA, Mucous membr. moist/pink, EOMI, Sclerae nonicteric Neck: Supple, No LAD, JVD distended Respiratory: Normal air movement, Crackles/rales, Expiratory wheezes, Inspiratory wheezes Cardiovascular: Normal S1 S2, Irregular heart rate/rhythm, Systolic murmur Gastrointestinal: Normal bowel sounds, Soft and benign, Non-distended, No tenderness Musculoskeletal: No tenderness Integumentary: No rashes Neurological: Normal speech, Normal strength at 5/5 x4 extr, Other (Muscle twitching noticed), Abnormal tone Lymphatics: No axilla or inguinal lymphadenopathy - Studies Laboratory Data (last 24 hrs) 06/23/18 12:20: PT 12.7 H, INR 1.08 06/23/18 12:20: WBC 9.4, Hgb 11.6 L, Hct 34.8 L, Plt Count 236 06/23/18 12:20: Sodium 140, Potassium 4.7, BUN 87 H, Creatinine 10.60 H*, Glucose 139 H, Magnesium 3.1 H, Total Bilirubin 0.6, AST 11 L, ALT 16, Alkaline Phosphatase 67, Lipase 134 Assessment and Plan - Problems (Diagnosis) (1) Volume overload Current Visit: Yes Status: Acute Plan: Volume overload most likely secondary to missed hemodialysis -will start patient on IV Lasix 80 mg b.i.d. at this time -will also get emergent hemodialysis done -nephrology consulted. Appreciated recommendations at this time -will monitor patient closely Qualifiers: Hypervolemia type: other Qualified Code(s): E87.79 - Other fluid overload (2) Diastolic dysfunction Current Visit: Yes Status: Acute Plan: Diastolic dysfunction with acute exacerbation secondary to volume overload secondary to missed hemodialysis -2017 echocardiogram done with diastolic dysfunction along with possible valvular disease -will restart home medication at this time along with IV lasix (3) Atrial fibrillation Current Visit: Yes Status: Chronic Plan: Patient with initially fibrillation with RVR in the ER most likely secondary to volume overload -will get cardiology consultation done at this time -will restart home medication at this time. -echocardiogram done in 2017 with normal ejection fraction with diastolic dysfunction will repeat 1 at this time Qualifiers: Atrial fibrillation type: chronic Qualified Code(s): I48.2 - Chronic atrial fibrillation (4) ESRD (end stage renal disease) Onset Date: 01/31/17 Current Visit: No Status: Acute Plan: Patient with end-stage renal disease with Friday dialysis now with missed dialysis -nephrology consulted. Appreciate recommendation at this time -patient scheduled for dialysis today (5) Hypertension Onset Date: 10/17/17 Current Visit: No Status: Chronic Qualifiers: Hypertension type: essential hypertension Qualified Code(s): I10 - Essential (primary) hypertension Discharge Plan: Home Plan to discharge in: Greater than 2 days - Advance Directives Does patient have a Living Will: No Does patient have a Durable POA for Healthcare: No - Code Status/Comfort Care Code Status Assessed: Yes Critical Care: No
[2018-06-23] MEDS ORDERED: NA CHLORIDE 0.9% 1,000 ML IV PRN (17:16)
[2018-06-23] MEDS ORDERED: MANNITOL 25% 12.5 GM/50 ML VIAL IV PRN (17:16)
[2018-06-23] MEDS ORDERED: FUROSEMIDE 40 MG/4 ML VIAL IV SCH (18:00)
[2018-06-23] MEDS ORDERED: ALBUMIN HUMAN 25% 50 ML IV SCH (18:00)
[2018-06-23 18:02] LABS: Blood Morphology Comment NOT SEEN (NOT SEEN); Platelet Estimate ADEQ; Urine White Blood Cell Casts OK
--- NOTE | 2018-06-24 12:20 | P.SSS ---
Patient History Date of Service: 06/24/18 History of Present Illness: This is a 72-year-old male with significant past medical history of hypertension , diabetes, end-stage renal disease on Friday dialysis, HIV infection, valvular disease, diastolic heart failure, presented to the ED complaining of having some nausea and vomiting that started about 4-5 days ago. Patient stated that he has missed his dialysis since last week and the last time he went to his dialysis that he remembers office on Friday which was about 2 hr as well. Patient stated that he has not been to dialysis after that as he was not feeling well and he wanted to rest at home. Patient stated that his nausea vomiting started getting worse and thus he decided to come to the ER. Patient also started having some shortness of breath and was not able to lie flat at home. Patient stated that he had been doing well before that overall. Denies having any chest pain abdominal pain fever chills or any other associated symptoms at this time In the ER patient had extensive lab work and imaging done after which she was admitted to the hospital for CHF exacerbation most likely secondary to missed dialysis along with volume overload. Patient's vital signs were stable he was saturating okay on room air, blood pressure was on a little bit of an elevated side. Physical exam patient had a muscle twitch along with lethargy, crackles on lung exam along with edema of 2+ lower extremity. Allergies No Known Allergies Allergy (Verified 10/16/17 10:06) Home Medications: Amlodipine Besylate 1 tab PO DAILY 06/23/18 Atazanavir Sulfate [Reyataz] 1 cap PO DAILY 06/23/18 Atorvastatin Calcium [Lipitor] 1 tab PO BEDTIME 06/23/18 Furosemide [Lasix] 40 mg PO BID 06/23/18 Gabapentin 1 tab PO TID 06/23/18 Insulin Aspart [Novolog] 10 units SQ TIDWM 06/23/18 Insulin Glargine,Hum.rec.anlog [Lantus] 60 units SQ BEDTIME 06/23/18 Lamivudine [Lamivudine Hbv] 50 mg PO DAILY 06/23/18 Metoprolol Succinate [Toprol Xl] 100 mg PO DAILY 06/23/18 Pregabalin [Lyrica] 75 mg PO BID 06/23/18 Ritonavir 1 tab PO DAILY 06/23/18 Sevelamer Carbonate [Renvela] 1,600 mg PO TIDWM 06/23/18 hydroCHLOROthiazide [Hydrochlorothiazide] 1 tab PO DAILY 06/23/18 - Past Medical/Surgical History Has patient received pneumonia vaccine in the past: Yes Diabetic: Yes -: diabetes NIDDM -: HTN -: ESRD -: Dialysis -: HIV infection -: COLON CANCER -: partial removal of colon -: appendectomy -: fistula to left arm - Family History Father -: Cancer - Social History Smoking Status: Never smoker Alcohol use: No CD- Drugs: No Caffeine use: Yes Place of Residence: Home Review of Systems 10-point ROS is otherwise unremarkable Physical Examination - Vital Signs Temperature: 98.1 F Blood Pressure: 132/80 Pulse: 89 Respirations: 18 Pulse Ox (%): 97 - Physical Exam General: Alert, Mild distress, Other (PE is from 06/23/18. I was not able to see the patient when he left AMA) Neck: JVD distended Respiratory: Normal air movement, Crackles/rales, Expiratory wheezes, Inspiratory wheezes, Rhonchi/gurgles Cardiovascular: Regular rate/rhythm, Normal S1 S2 Gastrointestinal: Normal bowel sounds, No tenderness Musculoskeletal: No tenderness Integumentary: No rashes Neurological: Normal gait, Normal speech, Normal strength at 5/5 x4 extr, Normal tone, Normal affect Lymphatics: No axilla or inguinal lymphadenopathy - Studies Laboratory Data (last 24 hrs) 06/23/18 12:20: PT 12.7 H, INR 1.08 06/23/18 12:20: WBC 9.4, Hgb 11.6 L, Hct 34.8 L, Plt Count 236 06/23/18 12:20: Sodium 140, Potassium 4.7, BUN 87 H, Creatinine 10.60 H*, Glucose 139 H, Magnesium 3.1 H, Total Bilirubin 0.6, AST 11 L, ALT 16, Alkaline Phosphatase 67, Lipase 134 - Diagnosis (Problem(s)) (1) Volume overload Status: Acute Qualifiers: Hypervolemia type: other Qualified Code(s): E87.79 - Other fluid overload (2) Diastolic dysfunction Status: Acute (3) Atrial fibrillation Status: Chronic Qualifiers: Atrial fibrillation type: chronic Qualified Code(s): I48.2 - Chronic atrial fibrillation (4) ESRD (end stage renal disease) Onset Date: 01/31/17 Status: Acute (5) Hypertension Onset Date: 10/17/17 Status: Chronic Qualifiers: Hypertension type: essential hypertension Qualified Code(s): I10 - Essential (primary) hypertension Treatment Summary: Pt left AMA from the hospital. I was not able to see the patient as he left before I could examine him when I was off shift - Disposition Disposition: AMA-LEFT AGAINST MEDICAL ADVIC Condition: GOOD
== END 2018-06-23 22:45 | disposition left against medical advice (07) ==
LOC: ER 10:10 → ERHOLD 14:30 → 2ND 16:27
PROVIDERS: ADMIT Family Medicine; ATTEND Family Medicine
PROC: 5A1D70Z Performance of Urinary Filtration, Intermittent, Less than 6 Hours Per Day (ICD-10-PCS; principal; 2018-06-23)
DX: I13.2 Hypertensive heart and chronic kidney disease with heart failure and with stage 5 chronic kidney disease, or end stage renal disease (principal); I50.33 Acute on chronic diastolic (congestive) heart failure; E11.22 Type 2 diabetes mellitus with diabetic chronic kidney disease; I48.2 Chronic atrial fibrillation; N18.6 End stage renal disease; C18.9 Malignant neoplasm of colon, unspecified; Z99.2 Dependence on renal dialysis; Z91.15 Patient's noncompliance with renal dialysis; Z90.49 Acquired absence of other specified parts of digestive tract
CPT/HCPCS: 93005; 87040 ×2; 87088; 85025; 87086; 80048; 36415; 83735; 85610; 82962; 80076; 81003; 84484; 83690; 84145; 83880; 71045; 90935 ×2; J1940; 99285

== ENCOUNTER 2018-07-25 21:46 | Emergency (ER) | payer OTHER ==
--- OUTSIDE RECORDS SUMMARY | 2018-07-25 21:49 | XMS REPORT ---
:1945 [facility] Address [address] [place] [address] [place] [address] Care Team Providers Name Role Phone RUSSELL [...] FINAL REPORT PATIENT VIEWS exam:->ABNORMAL IMAGING ID: [id number] Chest, 2 RESULT views, 03/23/2018 6:20 PM. [...] of myla pulmonary edema. Signed: Gallo Delgado MDReport Verified Date/Time: 03/23/2018 18:51:08 Reading Location: [facility] B1 C013W Consult Reading Room B-TYPE NATRIURETIC FACTOR (BNP) 2018-03-23 18:29:00 Test Item Value Reference Range Comments B-TYPE NATRIURETIC PEPTIDE (BEAKER) (test wblj=300) 1420 pg/mL 0-100 RAPID [id number] 18:27:00 Test Item Value Reference Range Comments RAPID MYOGLOBIN (BEAKER) (test rrho=4774) 438 ng/mL <107 RAPID [id number] 18:27:00 Test Item Value Reference Range Comments RAPID CKMB (BEAKER) (test aukd=4862) 3.2 ng/mL 0.0-4.3 RAPID TROPONIN [id number] 18:27:00 Test Item Value Reference Range Comments RAPID TROPONIN I (BEAKER) (test dmst=0803) < ng/mL <0.05 [id number] 18:23:00 Test Item Value Reference Range Comments PROTIME (BEAKER) (test ycyk=303) 11.3 seconds 9.8-12.0 INR (BEAKER) (test ofyt=236) 1.1 <=5.9 PARTIAL THROMBOPLASTIN TIME (BEAKER) (test 22.5 seconds 25.8-34.5 slpo=999) RECOMMENDED COUMADIN/WARFARIN INR THERAPY RANGESSTANDARD DOSE: 2.0 - 3.0 Includes: PROPHYLAXIS forvenous thrombosis, systemic embolization; TREATMENT for venous thrombosis and/or pulmonary embolus.HIGH RISK: Target INR is 2.5-3.5 for patients with mechanical heart valves.BASIC METABOLIC [id number] 18:21: 00 Test Item Value Reference Range Comments SODIUM (BEAKER) (test 138 meq/L 135-148 tpwk=598) POTASSIUM (BEAKER) (test 4.7 meq/L 3.6-5.5 bnqc=977) CHLORIDE (BEAKER) (test 99 meq/L 98-106 brhq=961) CO2 (BEAKER) (test 29 meq/L 24-32 bbpp=002) BLOOD UREA NITROGEN 36 mg/dL 10-26 (BEAKER) (test ywmu=246) CREATININE (BEAKER) (test 5.15 mg/dL 0.50-1.20 ubma=571) GLUCOSE RANDOM (BEAKER) 94 mg/dL 70-110 (test lcgz=018) CALCIUM (BEAKER) (test 9.2 mg/dL 8.5-10.5 khwj=585) EGFR (BEAKER) (test 11 mL/min/1.73 sq m ESTIMATED GFR IS NOT dene=3651) ACCURATE CREATININE CLEARANCE IN PREDICTING GLOMERULAR FILTRATION RATE. ESTIMATED GFR IS NOT APPLICABLE FOR DIALYSIS PATIENTS. [id number] 18:18:00 Test Item Value Reference Range Comments MAGNESIUM (BEAKER) (test ieyq=224) 2.3 mg/dL 1.5-3.0 CREATINE KINASE (CK)2018-03-23 18:18:00 Test Item Value Reference Range Comments CREATINE KINASE TOTAL (BEAKER) (test qhzl=258) 50 U/L 40-250 CBC W/PLT COUNT & AUTO [id number] 18:15:00 Test Item Value Reference Range Comments WHITE BLOOD CELL COUNT (BEAKER) (test ijav=162) 9.3 K/ L 4.0-10.0 RED BLOOD CELL COUNT (BEAKER) (test nllt=563) 3.48 M/ L 4.20-5.80 HEMOGLOBIN (BEAKER) (test kbmz=738) 10.9 GM/DL 13.0-16.8 HEMATOCRIT (BEAKER) (test qtgb=436) 33.0 % 40.0-50.0 MEAN CORPUSCULAR VOLUME (BEAKER) (test ngdf=331) 94.8 fL 82.0-98.0 MEAN CORPUSCULAR HEMOGLOBIN (BEAKER) (test 31.2 pg 27.0-33.0 qafr=067) MEAN CORPUSCULAR HEMOGLOBIN CONC (BEAKER) (test 32.9 GM/DL 32.0-36.0 hqin=500) RED CELL DISTRIBUTION WIDTH (BEAKER) (test 13.7 % 10.3-14.2 xcsg=084) PLATELET COUNT (BEAKER) (test lljd=265) 277 K/CU MM 150-430 MEAN PLATELET VOLUME (BEAKER) (test kvit=526) 8.8 fL 6.5-10.5 NEUTROPHILS RELATIVE PERCENT (BEAKER) (test 72 % fwro=556) LYMPHOCYTES RELATIVE PERCENT (BEAKER) (test 15 % suui=028) MONOCYTES RELATIVE PERCENT (BEAKER) (test 9 % yeea=114) EOSINOPHILS RELATIVE PERCENT (BEAKER) (test 3 % mrej=494) BASOPHILS RELATIVE PERCENT (BEAKER) (test 1 % gxuc=081) NEUTROPHILS ABSOLUTE COUNT (BEAKER) (test 6.68 K/ L 1.80-8.00 ngni=945) LYMPHOCYTES ABSOLUTE COUNT (BEAKER) (test 1.41 K/ L 1.48-4.50 rxvp=807) MONOCYTES ABSOLUTE COUNT (BEAKER) (test 0.83 K/ L 0.00-1.30 ldse=886) EOSINOPHILS ABSOLUTE COUNT (BEAKER) (test 0.32 K/ L 0.00-0.50 quec=738) BASOPHILS ABSOLUTE COUNT (BEAKER) (test 0.05 K/ L 0.00-0.20 ojxs=664)
--- OUTSIDE RECORDS SUMMARY | 2018-07-25 21:49 | XMS REPORT | Clinical Summary ---
:1945 Author Organization [facility] Address [address] [place] [address] Care Team Providers Name Role Phone Unavailable [...] Only General Internal Medicine 03/23/2018 Travel after 07/24/2017 Social History Tobacco Use Types Packs/Day Years [...] Taken Blood Pressure 135/56 03/23/2018 6:45 PM PICU NURSE Pulse 88 03/23/2018 6:45 PM PICU NURSE Temperature 36.7 C (98.1 F) 03/23/2018 5:31 PM PICU NURSE Respiratory Rate 20 03/23/2018 5:31 PM PICU NURSE Oxygen Saturation 96% 03/23/2018 6:45 PM PICU NURSE Inhaled Oxygen Concentration - - Weight 111.6 kg (246 lb) 03/23/2018 5:31 PM PICU NURSE Height 177.8 cm (5' 10") 03/23/2018 5:31 PM PICU NURSE Body Mass Index 35.3 03/23/2018 5:31 PM PICU NURSE Plan of Treatment Not on file Procedures Procedure Name Priority Date/Time Associated Comments Diagnosis REPORT OF PROCEDURE - 05/13/2018 3:40 ENDOSCOPY SCAN PM CDT RHYTHM STRIP - SCAN 03/26/2018 1:43 PM PICU NURSE XR CHEST 2 VIEWS STAT 03/23/2018 6:17 Results for this PM PICU NURSE procedure are in the results section. CBC W/PLT COUNT & AUTO STAT 03/23/2018 6:05 Results for this DIFFERENTIAL PM PICU NURSE procedure are in the results section. CREATINE KINASE (CK) STAT 03/23/2018 6:05 Results for this PM PICU NURSE procedure are in the results section. RAPID TROPONIN I STAT 03/23/2018 6:05 Results for this PM PICU NURSE procedure are in the results section. B-TYPE NATRIURETIC STAT 03/23/2018 6:05 Results for this FACTOR (BNP) PM PICU NURSE procedure are in the results section. RAPID CK-MB STAT 03/23/2018 6:05 Results for this PM PICU NURSE procedure are in the results section. RAPID MYOGLOBIN STAT 03/23/2018 6:05 Results for this PM PICU NURSE procedure are in the results section. PT/APTT STAT 03/23/2018 6:05 Results for this PM PICU NURSE procedure are in the results section. CBC W/PLT COUNT & AUTO STAT 03/23/2018 6:05 Results for this DIFFERENTIAL PM PICU NURSE procedure are in the results section. MAGNESIUM STAT 03/23/2018 6:05 Results for this PM PICU NURSE procedure are in the results section. BASIC METABOLIC PANEL STAT 03/23/2018 6:05 Results for this (7) PM PICU NURSE procedure are in the results section. ED ECG INTERPRETATION Routine 03/23/2018 5:42 Results for this PM PICU NURSE procedure are in the results section. ECG 12-LEAD Routine 03/23/2018 5:38 PM PICU NURSE Procedure Note - Interface, External Ris In - 03/23/2018 6:20 PM PICU NURSE Ventricular Rate 126 BPM Atrial Rate 278 BPM QRS Duration 88 ms Q-T Interval 376 ms QTC Calculation(Bazett) 544 ms R Linden 28 degrees T Linden 85 degrees Atrial flutter with variable A-V block Abnormal ECG No previous ECGs available ECG 12-LEAD STAT 03/23/2018 5:38 PM PICU NURSE after 07/24/2017 Results EKG-SCANNED (05/13/2018 3:40 PM CDT) Narrative Performed At RHYTHM STRIP - SCAN (03/26/2018 1:43 PM PICU NURSE) Narrative Performed At XR chest 2 views (03/23/2018 6:17 PM PICU NURSE) Specimen Narrative Performed At FINAL REPORT [facility] Chest, 2 views, 03/23/2018 6:20 PM. [...] MD Report Verified Date/Time:03/23/2018 18:51:08 Reading Location: [facility] B1 C013W Consult Reading Room Procedure Note Interface, External Ris In - 03/23/2018 6:53 PM PICU NURSE FINAL REPORT Chest, 2 views, 03/23/2018 6:20 [...] Report Verified Date/Time: 03/23/2018 18:51:08 Reading Location: [facility] B1 C013W Consult Reading Room Performing Organization Address City/[facility] Phone Number [facility] Rapid Myoglobin (03/23/2018 6:05 PM PICU NURSE) Rapid Myoglobin 438 (H) <107 ng/mL [facility] Specimen Blood Performing Organization Address City/[facility]/Zipcode Phone Number [facility] [address] [place] [address] [facility] EMERGENCY [facility] Rapid Troponin I (03/23/2018 6:05 PM PICU NURSE) Rapid Troponin I <0.05 <0.05 ng/mL [facility] Specimen Blood Performing Organization Address City/[facility] Phone Number IFEANYI COYNE [address] [place] [address] [facility], [facility], [place] [facility] Rapid CK-MB (03/23/2018 6:05 PM PICU NURSE) Rapid CKMB 3.2 0.0 - 4.3 ng/mL [facility] Specimen Blood Performing Organization Address [facility] Phone Number [facility] [address] [address] [facility], [facility] LABORATORY PT/PTT (03/23/2018 6:05 PM PICU NURSE) Protime 11.3 9.8 - 12.0 seconds [facility] [place] [facility] INR 1.1 <=5.9 [facility] PTT 22.5 (L) 25.8 - 34.5 seconds [facility] Specimen Blood Narrative Performed At RECOMMENDED COUMADIN/WARFARIN INR THERAPY [facility] STANDARD DOSE: 2.0 - 3.0 Includes: EMER[facility]ENCY CENTER, [place] [facility] PROPHYLAXIS for venous thrombosis, systemic embolization; TREATMENT for venous thrombosis and/or pulmonary embolus. HIGH RISK: Target INR is 2.5-3.5 for patients with mechanical heart valves. Performing Organization Address [facility] Phone Number IFEANYI [place]YNE [address] [place] [address] [facility], [facility] LAB[facility]ATORY CBC with platelet count + automated diff (03/23/2018 6:05 PM PICU NURSE) WBC 9.3 4.0 - 10.0 K/L [facility] RBC 3.48 (L) 4.20 - 5.80 M/L [facility] Hemoglobin 10.9 (L) 13.0 - 16.8 GM/DL [facility] Hematocrit 33.0 (L) 40.0 - 50.0 % [facility] MCV 94.8 82.0 - 98.0 fL [facility] MCH 31.2 27.0 - 33.0 pg [facility] MCHC 32.9 32.0 - 36.0 GM/DL [facility] RDW 13.7 10.3 - 14.2 % [facility] Platelets 277 150 - 430 K/CU MM [facility] MPV 8.8 6.5 - 10.5 fL [facility] % Neutros 72 % [facility] % Lymphs 15 % [facility], [place] [facility] % Monos 9 % [facility] % Eos 3 % [facility], [place] [facility] % Baso 1 % [facility] # Neutros 6.68 1.80 - 8.00 K/L [facility] # Lymphs 1.41 (L) 1.48 - 4.50 K/L [facility] # Monos 0.83 0.00 - 1.30 K/L [facility] [place] [facility] # Eos 0.32 0.00 - 0.50 K/L [facility] [place] [facility] # Baso 0.05 0.00 - 0.20 K/L [facility] Specimen Blood Performing Organization Address City/[facility] Phone Number [address] [address] [facility] LABORATORY B-type Natriuretic Factor (BNP) (03/23/2018 6:05 PM PICU NURSE) BNP 1,420 (H) 0 - 100 pg/mL [facility] Specimen Blood Performing Organization Address [facility] Phone Number [address] [address] [facility] LABORATORY Magnesium (03/23/2018 6:05 PM PICU NURSE) Magnesium 2.3 1.5 - 3.0 mg/dL [facility] Specimen Blood Performing Organization Address [facility] Phone Number [address] [address] [phone] [place] [address] LABORATORY Creatine Kinase (CK) (03/23/2018 6:05 PM PICU NURSE) Total CK 50 40 - 250 U/L [facility] Specimen Blood Performing Organization Address [facility] Phone Number [address] [address] [facility] LABORATORY Basic Metabolic Panel (03/23/2018 6:05 PM PICU NURSE) Sodium 138 135 - 148 meq/L [facility], [place] [facility] Potassium 4.7 3.6 - 5.5 meq/L [facility], [facility] LAB[facility] Chloride 99 98 - 106 meq/L [facility] CO2 29 24 - 32 meq/L [facility] BUN 36 (H) 10 - 26 mg/dL [facility] Creatinine 5.15 (H) 0.50 - 1.20 mg/dL [facility] Glucose 94 70 - 110 mg/dL [facility] Calcium 9.2 8.5 - 10.5 mg/dL [facility] [place] [facility] EGFR 11Comment: ESTIMATED GFR IS mL/min/1.73 sq m [facility] NOT ACCURATE [facility], CREATININE CLEARANCE IN [facility], PREDICTING GLOMERULAR [facility] FILTRATION RATE. ESTIMATED GFR IS NOT APPLICABLE FOR DIALYSIS PATIENTS. Specimen Blood Performing Organization Address City/State/Zipcode Phone Number [facility] [address] [place] [address] [facility], [place] [facility] ECG/EKG Interpretation (03/23/2018 5:42 PM PICU NURSE) Narrative Performed At Avel Dominguez MD 03/23/20186:53 PM ECG/EKG Interpretation Date/Time: 03/23/2018 5:50 PM Performed by: Avel Dominguez MD Authorized by: Avel Dominguez MD The ECG was interpreted by ED physician. This ECG was not compared with previous ECG(s).The ECG is interpreted as atrial flutter. Rate is tachycardic. Conduction: conduction normal. ST segments abnormal. T waves normal. Linden is normal. Other findings: no other findings. Clinical Impression: dysrhythmia - atrial ECG 12 lead (03/23/2018 5:38 PM PICU NURSE) Specimen Narrative Performed At Ventricular Rate 126 BPM [facility] Atrial Rate 278 BPM QRS Duration 88 ms Q-T Interval 376 ms QTC Calculation(Bazett) 544 ms R Linden 28 degrees T Linden 85 degrees Atrial flutter with variable A-V block Abnormal ECG No previous ECGs available Confirmed by Luci GARCIA MICHAEL ([id number]) on 03/24/2018 7:45:15 AM Procedure Note Interface, External Ris In - 03/24/2018 7:45 AM PICU NURSE Ventricular Rate 126 BPM Atrial Rate 278 BPM QRS Duration 88 ms Q-T Interval 376 ms QTC Calculation(Bazett) 544 ms R Linden 28 degrees T Linden 85 degrees Atrial flutter with variable A-V block Abnormal ECG No previous ECGs available Confirmed by Luci GARCIA MICHAEL ([id number]) on 03/24/2018 7:45:15 AM Performing Organization Address City/State/Zipcode Phone Number GE MUSE after 07/24/2017 Insurance Payer Benefit Plan / Group Subscriber ID Type Phone Address MEDICARE MEDICARE A B xxxxxxxxxxx Medicare CIGNA - MGD CARE CIGNA [facility] xxxxxxxxxxx HMO/POS
[2018-07-25 22:29] LABS: Absolute Lymphocytes (CBC) 0.8 K/uL (0.7-4.9); Absolute Monocytes 1.8 K/uL (0.1-1.3); Basophils % 0.3 % (0-1.3); Eosinophils % 0.1 % (0-4.4); Hematocrit 39.1 % (39.6-49.0); Lymphocytes % 5.3 % (15.3-44.8); Monocytes % 12.3 % (3.3-12.3); RBC Red Blood Cell Count 4.09 M/uL (4.33-5.43)
[2018-07-25 22:35] LABS: Protime INR 1.69
[2018-07-25] MEDS ORDERED: MORPHINE 4 MG/ML SYR ONE (23:01)
[2018-07-25] MEDS ORDERED: ONDANSETRON 4 MG/2 ML VIAL ONE (23:01)
[2018-07-25] MEDS ORDERED: HYDROCODONE/CHLORPHEN 5 ML/OSYR ONE (23:02)
[2018-07-25 23:07] LABS: Albumin 3.5 g/dL (3.4-5.0); Alkaline Phosphatase 64 U/L (45-117); BUN Blood Urea Nitrogen 76 mg/dL (7-18); Bicarbonate 19 mmol/L (21-32); Bilirubin Direct 0.8 mg/dL (0-0.2); Bilirubin Total 1.4 mg/dL (0.2-1.0); Glucose Level 99 mg/dL (74-106); Lipase 95 U/L (73-393); Magnesium 2.8 mg/dL (1.8-2.4); NT PRO-BNP > 175000 pg/mL (<125); Protein, Total 7.8 g/dL (6.4-8.2); Sodium Level 132 mmol/L (136-145)
[2018-07-25 23:08] LABS: ALT/SGPT 1064 U/L (12-78); AST/SGOT 1659 U/L (15-37); Troponin (Emerg Dept Use Only) 1.04 ng/mL (0.0-0.045)
[2018-07-25 23:09] LABS: Potassium 6.2 mmol/L (3.5-5.1)
[2018-07-25 23:56] LABS: Arterial Blood Carboxyhemoglob 0.9 % (0-1.5); Blood O2 Saturation 87.8 % (92-98.5)
[2018-07-26] MEDS ORDERED: INSULIN -REGULAR HUMAN 50 UNIT/0.5 ML ML ONE
[2018-07-26] MEDS ORDERED: ALBUTEROL 2.5 MG/3 ML NEB SOL ONE
[2018-07-26] MEDS ORDERED: SOD POLYSTYREN SUL 15 GM/60 ML UCUP ONE
[2018-07-26] MEDS ORDERED: D50W 25 GM/50 ML SYRINGE IV ONE ×2 (00:01→01:50)
[2018-07-26] MEDS ORDERED: Caclcium Chloride 10% INJ SYR IV ONE (00:01)
[2018-07-26] MEDS ORDERED: SODIUM BICARB 50 MEQ/50ML VIAL ONE (00:01)
[2018-07-26] MEDS ORDERED: NA CHLORIDE 0.9% 1,000 ML ONE ×2 (00:02→03:21)
[2018-07-26] MEDS ORDERED: NA CHLORIDE 0.9% 100 ML IV ONE (00:02)
[2018-07-26 02:25] LABS: Potassium 5.4 mmol/L (3.5-5.1)
[2018-07-26 03:09] LABS: CKMB Creatine Kinase MB 4.7 ng/mL (0.3-3.6)
--- NOTE | 2018-07-26 04:22 | ER ---
Nurse's Notes [facility] Name: Fredi Moore Age: 72 yrs Sex: Male : 1945 Arrival Date: 07/25/2018 Time: 21:47 Bed 6 Private MD: Diagnosis: Abdominal pain. Vomiting. Elevated liver functions. Altered mental status. Chronic renal disease Presentation: 07/25 21:48 Acuity: LUCERO 2 la1 22:29 Presenting complaint: states: He has been feeling ill for a few weeks but much la1 worse today, he passed out a few times at home before we got here. Pt appears clammy, slow to open eyes. Transition of care: patient was not received from another setting of care. Onset of symptoms was July 25, 2018. Risk Assessment: Do you want to hurt yourself or someone else? Patient reports no desire to harm self or others. Initial Sepsis Screen: Does the patient meet any 2 criteria? No. Patient's initial sepsis screen is negative. Does the patient have a suspected source of infection? No. Patient's initial sepsis screen is negative. Care prior to arrival: None. 22:29 Method Of Arrival: Ambulatory la1 Historical: - Allergies: 22:48 Morphine; fc - Home Meds: 23:03 insulin glargine subcutaneous Sub-Q daily [Active]; atorvastatin 80 mg Oral tab 1 tab fc nightly [Active]; ritonavir 100 mg Oral 1 cap once daily [Active]; hydroxyzine HCl 25 mg Oral tab 1 tab nightly [Active]; atazanavir 300 mg Oral 1 cap once daily [Active]; furosemide 40 mg oral tab 1 tab 2 times per day [Active]; insulin asparte 10 units TID SQ [Active]; lamivudine 100 mg Oral tab 0.5 tab once daily [Active]; sevelamer HCl Oral 2 tabs 3 times per day [Active]; gabapentin 600 mg oral tab 1 tab 3 times per day [Active]; amlodipine 10 mg tab 1 tab once daily [Active]; abacavir 300 mg Oral tab 1 tab 2 times per day [Active]; metoprolol tartrate 100 mg Oral tab 1 tab once daily [Active]; Lyrica 75 mg Oral 2 times per day [Active]; - PMHx: 22:31 colon cancer; Diabetes - NIDDM; Dialysis; ESRD; HIV; Hypertension; la1 - PSHx: 23:03 colon surgery; Dialysis fistula to left arm; fc - Immunization history:: Adult Immunizations up to date. - Social history:: Smoking status: unknown. - Ebola Screening: : No symptoms or risks identified at this time. Screenin:43 Abuse screen: Denies threats or abuse. Nutritional screening: No deficits noted. ea Tuberculosis screening: No symptoms or risk factors identified. Fall Risk IV access (20 points). Assessment: 22:00 General: Appears uncomfortable, Behavior is cooperative, restless. Pain: Denies pain. ea Neuro: Level of Consciousness is awake, Oriented to person. Cardiovascular: Patient's skin is warm and dry. Respiratory: Parent/caregiver reports the patient having cough that is productive. GI: No signs and/or symptoms were reported involving the gastrointestinal system. Derm: Skin is clammy, Skin is flushed, Skin temperature is cool. 23:55 Reassessment: Patient and/or family updated on plan of care and expected duration. Pain ea level reassessed. Pt resting with eyes closed, respirations even and unlabored. Chest expansions even and symmetrical, s/s of pain or discomfort noted at this time. 07/26 00:50 Reassessment: Patient and/or family updated on plan of care and expected duration. Pain ea level reassessed. Pt resting with eyes closed, respirations even and unlabored. Chest expansions even and symmetrical. No s/s of pain or discomfort noted at this time. Awaiting on lab results. 01:00 Reassessment: Patient and/or family updated on plan of care and expected duration. Pain ea level reassessed. Pt resting with eyes closed. Respirations even and unlabored. Chest expansions even and symmetrical. No s/s of pain or discomfort noted at this time. 01:36 Reassessment: [phone] that [facility] no ICU fc beds available there at [facility]. 02:30 Reassessment: Patient and/or family updated on plan of care and expected duration. Pain ea level reassessed. Pt resting with eyes closed, respirations even and unlabored. Chest expansions even and symmetrical. No s/s of pain or discomfort noted at this time. 03:50 Reassessment: Patient and/or family updated on plan of care and expected duration. Pain ea level reassessed. Pt resting with eyes closed, respirations even and unlabored, chest expansion even and symmetrical. 04:50 Reassessment: Patient and/or family updated on plan of care and expected duration. Pain ea level reassessed. Pt resting with eyes closed, respirations even and symmetrical. No s/s of pain or discomfort noted at this time. 05:07 Reassessment: Report called to Christin MCCORMACK at [facility]. ea 05:54 Reassessment: Patient and/or family updated on plan of care and expected duration. Pain ea level reassessed. Pt alert oriented to self, at bedside. No s/s of pain or discomfort noted at this time. Awaiting on transport. 06:50 Reassessment: Patient and/or family updated on plan of care and expected duration. Pain ea level reassessed. Pt resting with eyes closed, respirations even and unlabored. Chest expansions even and symmetrical. No s/s of pain or discomfort noted at this time. 07:05 Reassessment: Pt resting in bed with eyes closed, respirations even and unlabored, skin aa5 is warm/dry. Pt easy to awaken to verbal stimuli. Pt currently alert and oriented x person and place, pt able to follow commands. Awaiting EMS for transfer, pt notified of wait time. . 08:00 Reassessment: Pt resting in bed with eyes closed, respirations even and unlabored, skin aa5 is warm/dry. . Vital Signs: 07/25 21:47 BP 140 / 82; Pulse 91; Resp 16; Temp 98.4; Pulse Ox 98% on R/A; la1 21:55 BP 131 / 94; Pulse 108; Resp 20; Pulse Ox 95% 2 lpm ; ea 07/26 00:17 BP 154 / 79; Pulse 101; Resp 20; Pulse Ox 99% ; ea 01:20 Temp 97.6(O); ea 01:20 BP 160 / 87; Pulse 120; Resp 18; Pulse Ox 97% on 2 lpm NC; ea 01:54 BP 156 / 92; Pulse 120; Resp 20; Pulse Ox 99% on 2 lpm NC; ea 02:30 BP 164 / 100; Pulse 108; Resp 18; Temp 97.8; Pulse Ox 100% on 2 lpm NC; ea 03:30 BP 139 / 76; Pulse 110; Resp 18; Pulse Ox 98% on 2 lpm NC; ea 04:00 BP 133 / 69; Pulse 110; Resp 18; Temp 97.7; Pulse Ox 98% on 2 lpm NC; ea 05:30 BP 120 / 99; Pulse 110; Resp 19; Pulse Ox 97% on R/A; ea 06:45 BP 136 / 95; Pulse 110; Resp 18; Pulse Ox 97% on 2 lpm NC; ea 07:30 BP 105 / 76; Pulse 115; Resp 16 S; Pulse Ox 99% on 2 lpm NC; Pain 0/10; aa5 08:00 BP 101 / 78; Pulse 112; Resp 18 S; Temp 98.0(TE); Pulse Ox 100% on 2 lpm NC; Pain 0/10; aa5 ED Course: 07/25 21:45 Missed attempt(s): 20 gauge in right antecubital area. fc 21:47 Patient arrived in ED. la1 21:48 Triage completed. la1 22:00 Patient has correct armband on for positive identification. Placed in gown. Bed in low ea position. Call light in reach. Side rails up X2. 22:00 Initial lab(s) drawn, by ED staff, sent to lab. First set of blood cultures drawn. fc Missed attempt(s): 20 gauge in right forearm. per Martine maldonado RN. 22:19 David Owens MD is Attending Physician. pkl 22:31 XRAY Chest (1 view) In Process Unspecified. EDMS 22:31 Arm band placed on right wrist. la1 22:35 Second set of blood cultures drawn by me. Inserted 18 gauge 10 cm midline to right fc upper basilic vein on first attempt. Line with good blood return and flushes well. 22:42 Lara Laboy, RN is Primary Nurse. ea 23:08 Notified ED physician of a critical lab result(s). lactate 4.9, K-6.2, Cr, 9.37, ast la1 1659, alt 1064, Trop 1.04. 23:[address] In Process Unspecified. EDMS 07/26 06:06 No provider procedures requiring assistance completed. Patient transferred, IV remains ea in place. 07:10 Report given to Elvis MCCORMACK. ea Administered Medications: 07/25 22:49 Not Given (Pt allergic): morphine 4 mg IVP once fc 22:50 Drug: Tussionex Pennkinetic ER 5 ml Route: PO; ea 23:15 Follow up: Response: No adverse reaction; Marked relief of symptoms ea 22:54 Drug: Zofran 4 mg Route: IVP; Site: right upper arm; ea 23:40 Follow up: Response: No adverse reaction; Marked relief of symptoms ea 23:45 Drug: Albuterol 2.5 mg Route: Inhalation; ea 23:46 Drug: D50W 50 ml Route: IVP; Site: right upper arm; ea 07/26 00:30 Follow up: Response: No adverse reaction ea 07/25 23:50 Drug: Sodium Bicarbonate 1 amp Route: IVP; Site: right upper arm; ea 07/26 01:00 Follow up: Response: No adverse reaction ea 07/25 23:54 Drug: Insulin Regular Human 10 units {Co-Signature: kayli (Cordell Washington RN).} Route: IVP; ea Site: right upper arm; 07/26 01:14 Follow up: Response: No adverse reaction ea 00:00 Drug: Kayexalate 60 grams Route: PO; ea 01:00 Follow up: Response: No adverse reaction ea 00:00 Drug: Albuterol 2.5 mg Route: Inhalation; ea 00:02 Drug: Calcium Gluconate 1 grams Route: IVPB; Infused Over: 60 mins; Site: right upper ea arm; 01:00 Follow up: Response: No adverse reaction; IV Status: Completed infusion ea 00:15 Drug: Albuterol 2.5 mg Route: Inhalation; ea 01:35 Drug: D50W 50 ml Route: IVP; Site: right upper arm; ea 02:30 Follow up: Response: No adverse reaction ea 03:30 Drug: NS 0.9% 1000 ml Route: IV; Rate: 50 ml/hr; Site: right upper arm; ea 06:56 Follow up: IV Status: Infusion continued upon transfer hj Point of Care Testing: Blood Glucose: 07/25 21:47 Blood Glucose: 99 mg/dL; la1 07/26 01:34 Blood Glucose: 63 mg/dL; ea Ranges: Outcome: 04:22 ER care complete, transfer ordered by MD. akbar 05:00 Instructed on the need for admit. ea 08:12 Transferred by ground EMS to [facility], Transfer form completed. aa5 X-rays sent w/ patient. Note: Report given to [facility] 08:12 Condition: stable 08:16 Patient left the ED. aa5 Signatures: Dispatcher [employer] EDMS David Owens MD MD pkl Chretien, Felicia, RN RN Stacey Vega RN RN aa5 Cordell Washington RN RN la1 Elvis Shanks RN RN hj Antunez, Elena, RN RN ea Lee Attema RN la1 Corrections: (The following items were deleted from the chart) 07/25 22:48 22:31 Allergies: No Known Allergies; la1 23: 22:48 Home Meds: abacavir 300 mg Oral tab 1 tab 2 times per day [Inactive]; [facility] : 22:48 Home Meds: amlodipine 10 mg tab 1 tab once daily [Inactive]; [facility] : 22:48 Home Meds: atazanavir 300 mg Oral 1 cap once daily [Inactive]; [facility] : 22:48 Home Meds: atorvastatin 80 mg Oral tab 1 tab once daily [Inactive]; [facility] : 22:48 Home Meds: furosemide 80 mg Oral tab 1 tab 2 times per day [Inactive]; [facility] : 22:48 Home Meds: gabapentin 300 mg Oral cap 2 caps 3 times per day [Inactive]; [facility] : 22:48 Home Meds: hydroxyzine HCl 25 mg Oral tab 1 tab nightly [Inactive]; [facility] : 22:48 Home Meds: lamivudine 100 mg Oral tab 0.5 tab once daily [Inactive]; [facility] : 22:48 Home Meds: sevelamer HCl Oral 800mg, two tabs by mouth three times a day with fc meals. do not cursh [Inactive]; : 22:48 Home Meds: insulin asparte 10 units TID SQ [Inactive]; [facility] : 22:48 Home Meds: insulin glargine subcutaneous Sub-Q; 60 units daily SQ [Inactive]; [facility] : 22:48 Home Meds: ritonavir 100 mg Oral 1 cap once daily [Inactive]; [facility] : 23:08 Notified ED physician of a critical lab result(s). lactate 4.9, AK-6.2, Cr, 9.37, la1 ast 1659, alt 1064, Trop 1.04 la1 07/26 01:55 01:20 BP 160 / 87; Pulse 120bpm; Resp 18bpm; Pulse Ox 97%; ea ea
--- NOTE | 2018-07-26 04:23 | EDPHYS ---
Physician Documentation [facility] Name: Fredi Moore Age: 72 yrs Sex: Male : 1945 Arrival Date: 07/25/2018 Time: 21:47 Bed 6 Private MD: ED Physician David Owens HPI: 07/26 01:28 This 72 yrs old Male presents to ER via Ambulatory with unknown complaint. pkl 01:28 The patient presents with abdominal pain in the upper abdomen. Onset: The pkl symptoms/episode began/occurred 3 day(s) ago. The symptoms do not radiate. Associated signs and symptoms: Pertinent positives: nausea and vomiting, cough. Historical: - Allergies: 07/25 22:48 Morphine; fc - Home Meds: 23:03 insulin glargine subcutaneous Sub-Q daily [Active]; atorvastatin 80 mg Oral tab 1 tab fc nightly [Active]; ritonavir 100 mg Oral 1 cap once daily [Active]; hydroxyzine HCl 25 mg Oral tab 1 tab nightly [Active]; atazanavir 300 mg Oral 1 cap once daily [Active]; furosemide 40 mg oral tab 1 tab 2 times per day [Active]; insulin asparte 10 units TID SQ [Active]; lamivudine 100 mg Oral tab 0.5 tab once daily [Active]; sevelamer HCl Oral 2 tabs 3 times per day [Active]; gabapentin 600 mg oral tab 1 tab 3 times per day [Active]; amlodipine 10 mg tab 1 tab once daily [Active]; abacavir 300 mg Oral tab 1 tab 2 times per day [Active]; metoprolol tartrate 100 mg Oral tab 1 tab once daily [Active]; Lyrica 75 mg Oral 2 times per day [Active]; - PMHx: 22:31 colon cancer; Diabetes - NIDDM; Dialysis; ESRD; HIV; Hypertension; la1 - PSHx: 23:03 colon surgery; Dialysis fistula to left arm; fc - Immunization history:: Adult Immunizations up to date. - Social history:: Smoking status: unknown. - Ebola Screening: : No symptoms or risks identified at this time. ROS: 07/26 01:28 Eyes: Negative for injury, pain, redness, and discharge, ENT: Negative for injury, pkl pain, and discharge, Neck: Negative for injury, pain, and swelling, Cardiovascular: Negative for chest pain, palpitations, and edema, Respiratory: Negative for shortness of breath, cough, wheezing, and pleuritic chest pain. Abdomen/GI: Positive for abdominal pain, nausea and vomiting, of the right upper quadrant and left upper quadrant. Back: Negative for acute changes. : Negative for urinary symptoms. MS/extremity: Negative for acute changes. Skin: Negative for rash. Neuro: Negative for altered mental status. Exam: 01: Head/Face: Normocephalic, atraumatic. Eyes: Pupils equal round and reactive to light, pkl extra-ocular motions intact. Lids and lashes normal. Conjunctiva and sclera are non-icteric and not injected. Cornea within normal limits. Periorbital areas with no swelling, redness, or edema. ENT: Nares patent. No nasal discharge, no septal abnormalities noted. Tympanic membranes are normal and external auditory canals are clear. Oropharynx with no redness, swelling, or masses, exudates, or evidence of obstruction, uvula midline. Mucous membranes moist. Neck: Trachea midline, no thyromegaly or masses palpated, and no cervical lymphadenopathy. Supple, full range of motion without nuchal rigidity, or vertebral point tenderness. No Meningismus. Chest/axilla: Normal chest wall appearance and motion. Nontender with no deformity. No lesions are appreciated. Cardiovascular: Regular rate and rhythm with a normal S1 and S2. No gallops, murmurs, or rubs. Normal PMI, no JVD. No pulse deficits. Respiratory: Lungs have equal breath sounds bilaterally, clear to auscultation and percussion. No rales, rhonchi or wheezes noted. No increased work of breathing, no retractions or nasal flaring. 01:28 Abdomen/GI: Palpation: soft, mild abdominal tenderness, in the right upper quadrant and left upper quadrant. : Back: Exam negative for acute changes. : : Exam negative for acute changes. : Musculoskeletal/extremity: Exam is negative for acute changes. : Skin: Exam negative for rash. :28 Neuro: Exam negative for acute changes. Vital Signs: 07/25 21:47 BP 140 / 82; Pulse 91; Resp 16; Temp 98.4; Pulse Ox 98% on R/A; la1 21:55 BP 131 / 94; Pulse 108; Resp 20; Pulse Ox 95% 2 lpm ; ea 07/26 00:17 BP 154 / 79; Pulse 101; Resp 20; Pulse Ox 99% ; ea 01:20 Temp 97.6(O); ea 01:20 BP 160 / 87; Pulse 120; Resp 18; Pulse Ox 97% on 2 lpm NC; ea 01:54 BP 156 / 92; Pulse 120; Resp 20; Pulse Ox 99% on 2 lpm NC; ea 02:30 BP 164 / 100; Pulse 108; Resp 18; Temp 97.8; Pulse Ox 100% on 2 lpm NC; ea 03:30 BP 139 / 76; Pulse 110; Resp 18; Pulse Ox 98% on 2 lpm NC; ea 04:00 BP 133 / 69; Pulse 110; Resp 18; Temp 97.7; Pulse Ox 98% on 2 lpm NC; ea 05:30 BP 120 / 99; Pulse 110; Resp 19; Pulse Ox 97% on R/A; ea 06:45 BP 136 / 95; Pulse 110; Resp 18; Pulse Ox 97% on 2 lpm NC; ea 07:30 BP 105 / 76; Pulse 115; Resp 16 S; Pulse Ox 99% on 2 lpm NC; Pain 0/10; aa5 08:00 BP 101 / 78; Pulse 112; Resp 18 S; Temp 98.0(TE); Pulse Ox 100% on 2 lpm NC; Pain 0/10; aa5 MDM: 07/25 22:19 Patient medically screened. pkl 07/26 02:57 Data reviewed: vital signs, nurses notes, lab test result(s), EKG, radiologic studies, pkl CT scan, plain films. 03:03 ED course: Talked to Dr. Napier, recommend transfer tertiary facility. pkl 04:18 ED course: Talked to Dr. Nick Flynn, transfer to [facility]. pkl 07/25 21:47 Order name: glucometer results - FOR PT WITH NO ID; Complete Time: 01:16 la1 07/25 22:16 Order name: Lactate fc 07/25 22:16 Order name: Basic Metabolic Panel 07/25 22:16 Order name: CBC with Diff fc 07/25 22:16 Order name: LFT's 07/25 22:16 Order name: Magnesium fc 07/25 22:16 Order name: NT PRO-BNP; Complete Time: 01:16 07/25 22:16 Order name: PT-INR; Complete Time: : 07/25 22:16 Order name: Troponin (emerg Dept Use Only); Complete Time: : 07/25 22:18 Order name: Lactate; Complete Time: 01:16 EDHI 07/25 22:18 Order name: Basic Metabolic Panel; Complete Time: : EDHI 07/25 22:18 Order name: CBC with Automated Diff; Complete Time: : EDHI 07/25 22:18 Order name: Liver (Hepatic) Function; Complete Time: : EDHI 07/25 22:19 Order name: Magnesium; Complete Time: : EDHI 07/25 22:27 Order name: Blood Culture Adult (2) pkl 07/25 22:34 Order name: Lipase; Complete Time: 01:16 [facility] 07/25 23:38 Order name: ABG; Complete Time: : 07/26 00:19 Order name: BMP; Complete Time: 02:59 07/26 02:28 Order name: Lactate Sepsis 2 HR Follow-up; Complete Time: 02:59 EDHI 07/26 02:41 Order name: CKMB Creatine Kinase MB; Complete Time: 04:23 EDHI 07/26 02:41 Order name: Creatine Phosphokinase; Complete Time: 04:23 [facility] 07/25 22:16 Order name: XRAY Chest (1 view) 07/25 22:16 Order name: EKG; Complete Time: 22:22 07/25 22:16 Order name: Cardiac monitoring; Complete Time: 22:16 07/25 22:16 Order name: EKG - Nurse/Tech; Complete Time: 22:17 07/25 22:16 Order name: IV Saline Lock; Complete Time: 22:57 07/25 22:16 Order name: Labs collected and sent; Complete Time: :57 07/25 22:16 Order name: O2 Per Protocol; Complete Time: 22:17 07/25 22:16 Order name: O2 Sat Monitoring; Complete Time: 22:17 07/25 23:07 Order name: Chest Wo Con CT la1 07/25 23:16 Order name: Misc. Order: BMP 30 minutes after combination of medications for potassium la1 ; Complete Time: 01:13 07/26 02:58 Order name: AMMONIA; Complete Time: 04:23 pkl Administered Medications: 07/25 22:49 Not Given (Pt allergic): morphine 4 mg IVP once fc 22:50 Drug: Tussionex Pennkinetic ER 5 ml Route: PO; ea 23:15 Follow up: Response: No adverse reaction; Marked relief of symptoms ea 22:54 Drug: Zofran 4 mg Route: IVP; Site: right upper arm; ea 23:40 Follow up: Response: No adverse reaction; Marked relief of symptoms ea 23:45 Drug: Albuterol 2.5 mg Route: Inhalation; ea 23:46 Drug: D50W 50 ml Route: IVP; Site: right upper arm; ea 07/26 00:30 Follow up: Response: No adverse reaction ea 07/25 23:50 Drug: Sodium Bicarbonate 1 amp Route: IVP; Site: right upper arm; ea 07/26 01:00 Follow up: Response: No adverse reaction ea 07/25 23:54 Drug: Insulin Regular Human 10 units {Co-Signature: kayli (Cordell Washington RN).} Route: IVP; ea Site: right upper arm; 07/26 01:14 Follow up: Response: No adverse reaction ea 00:00 Drug: Kayexalate 60 grams Route: PO; ea 01:00 Follow up: Response: No adverse reaction ea 00:00 Drug: Albuterol 2.5 mg Route: Inhalation; ea 00:02 Drug: Calcium Gluconate 1 grams Route: IVPB; Infused Over: 60 mins; Site: right upper ea arm; 01:00 Follow up: Response: No adverse reaction; IV Status: Completed infusion ea 00:15 Drug: Albuterol 2.5 mg Route: Inhalation; ea 01:35 Drug: D50W 50 ml Route: IVP; Site: right upper arm; ea 02:30 Follow up: Response: No adverse reaction ea 03:30 Drug: NS 0.9% 1000 ml Route: IV; Rate: 50 ml/hr; Site: right upper arm; ea 06:56 Follow up: IV Status: Infusion continued upon transfer hj Point of Care Testing: Blood Glucose: 07/25 21:47 Blood Glucose: 99 mg/dL; la1 07/26 01:34 Blood Glucose: 63 mg/dL; obed Ranges: Critical Glucose Levels:Adult <50 mg/dl or >400 mg/dl <40 mg/dl or >180 mg/dl Disposition: 07/26/18 04:22 Transfer ordered to [facility]. Diagnosis is Abdominal pain. Vomiting. Elevated liver functions. Altered mental status. Chronic renal disease. - Reason for transfer: Higher level of care. - Accepting physician is Dr. Nick Flynn. - Condition is Stable. - Problem is new. - Symptoms are unchanged. Critical care time excluding procedures: 04:22 Critical care time: Bedside Care: 30 minutes, Consultation: 10 minutes, Family pkl Intervention: 10 minutes. Total time: 50 minutes Signatures: Dispatcher [employer] EDMS David Owens MD MD pkl Chretien, Felicia, RN RN fc Calderon, Audri RN EASTON aa5 Cordell Washington RN RN la1 Lara Laboy RN RN ea Joaquin, Henry RN hj Lee Attema RN la1 Corrections: (The following items were deleted from the chart) 07/25 22:21 22:20 Lactate ordered. [facility] EDMS 22:21 22:20 Basic Metabolic Panel ordered. [facility] EDHI 22:21 22:20 CBC with Automated Diff ordered. [facility] EDHI 22:21 22:20 Liver (Hepatic) Function ordered. [facility] EDHI 22:21 22:20 Magnesium ordered. [facility] EDMS 22:21 22:21 NT PRO-BNP ordered. [facility] EDHI 22:21 22:21 Protime (+INR) ordered. [facility] EDHI 22:21 22:21 Troponin (Emerg Dept Use Only) ordered. [facility] EDHI 22:34 22:29 LIPASE+C.LAB.BRZ ordered. [facility] EDMS 22:48 22:31 Allergies: No Known Allergies; la1 23:03 22:48 Home Meds: abacavir 300 mg Oral tab 1 tab 2 times per day [Inactive]; [facility] 23:03 22:48 Home Meds: amlodipine 10 mg tab 1 tab once daily [Inactive]; [facility] 23:03 22:48 Home Meds: atazanavir 300 mg Oral 1 cap once daily [Inactive]; [facility] 23:03 22:48 Home Meds: atorvastatin 80 mg Oral tab 1 tab once daily [Inactive]; [facility] : 22:48 Home Meds: furosemide 80 mg Oral tab 1 tab 2 times per day [Inactive]; [facility] 22:48 Home Meds: gabapentin 300 mg Oral cap 2 caps 3 times per day [Inactive]; [facility] 22:48 Home Meds: hydroxyzine HCl 25 mg Oral tab 1 tab nightly [Inactive]; [facility] : 22:48 Home Meds: lamivudine 100 mg Oral tab 0.5 tab once daily [Inactive]; [facility] : 22:48 Home Meds: sevelamer HCl Oral 800mg, two tabs by mouth three times a day with meals. do not cursh [Inactive]; : 22:48 Home Meds: insulin asparte 10 units TID SQ [Inactive]; [facility] 22:48 Home Meds: insulin glargine subcutaneous Sub-Q; 60 units daily SQ [Inactive]; [facility] : 22:48 Home Meds: ritonavir 100 mg Oral 1 cap once daily [Inactive]; [facility] 07/26 08:16 04:22 07/26/2018 04:22 Transfer ordered to [facility]. Diagnosis is aa5 Abdominal pain. Vomiting. Elevated liver functions. Altered mental status. Chronic renal disease. Reason for transfer: Higher level of care. Accepting physician is Dr. Nick Flynn. Condition is Stable. Problem is new. Symptoms are unchanged. pkl
--- NOTE | 2018-07-26 08:04 | RAD REPORT ---
EXAM DESCRIPTION: RAD - Chest Single View - 07/25/2018 10:31 pm CLINICAL HISTORY: Cough and congestion COMPARISON: June 2018 TECHNIQUE: AP portable chest image was obtained 2230 hours . FINDINGS: Lung volumes are low. Left base assessment is limited. Retrocardiac left base is relativel y dense. Pneumonia cannot be excluded. If tolerable, follow-up two-view chest imaging could be perfor med. Trachea is midline. Heart and vasculature are normal. No measurable pleural effusion and no pneu mothorax. No acute bony abnormality seen. No acute aortic findings suspected. IMPRESSION: Limited common shallow inspiration portable chest. Retrocardiac left base assessment is limited and pneumonia not excluded. If tolerable, followup two v iew imaging could be performed.
--- NOTE | 2018-07-26 10:07 | EKG ---
Test Date: 2018-07-25 Test Time: 21:47:08 Cartography Technician: GAUDENCIO MEASUREMENT RESULTS: Intervals: Rate: 108 [place]: 256 QRSD: 108 QT: 322 QTc: 431 [place]: P: -81 [place]: 256 QRS: -62 T: 75 INTERPRETIVE STATEMENTS: Unusual P axis, possible ectopic atrial tachycardia Left axis deviation Incomplete right bundle branch block Nonspecific T wave abnormality Abnormal ECG Compared to ECG 06/23/2018 12:23:06 Incomplete right bundle-branch block now present Atrial fibrillation no longer present T-wave abnormality still present Electronically Signed On 07-26-18 10:05:21 CDT by Doe Shoemaker
--- NOTE | 2018-07-26 22:37 | P.CNS ---
Date of Consult: 07/26/18 Reason for Consult: Elevated liver enzymes/ESRD/AMS/h/o of HIV Requesting Physician: David Owens Chief Complaint: AMS History of Present Illness: Patient is a 72-year-old gentleman who came to the hospital with altered mental status. Patient's states she had to come to dialysis a couple of days ago. This was Friday and he was doing okay. However, he started behaving a little erratically yesterday. He did not really want to eat anything but was drinking fluids. His mentation continued to worsen, so decision was made to bring the patient to the hospital for further evaluation. Patient is very confused and really does not answer any questions appropriately. His normal baseline is he is able do all his ADLs. Patient has a history of HIV. Patient does not drink and the states that there was not anything unusual and his diet nor were there any new medication changes. He could have an opportunistic infection depending on what his CD4 count is. 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 He may benefit from a ERCP. He may also need neurology consultation which we unfortunately do not have available either. Patient would need an MRI of the brain for the AMS, as well as a MRCP to evaluate the bile duct because of the elevated LFTs, but this isn't available. We do have Nephrology on-call and could provide us with dialysis; however, with everything the patient is meeting in addition to the dialysis may be best to transfer him to higher level of care. Allergies No Known Allergies Allergy (Verified 10/16/17 10:06) Home Medications: Amlodipine Besylate 1 tab PO DAILY 06/23/18 Atazanavir Sulfate [Reyataz] 1 cap PO DAILY 06/23/18 Atorvastatin Calcium [Lipitor] 1 tab PO BEDTIME 06/23/18 Furosemide [Lasix] 40 mg PO BID 06/23/18 Gabapentin 1 tab PO TID 06/23/18 Insulin Aspart [Novolog] 10 units SQ TIDWM 06/23/18 Insulin Glargine,Hum.rec.anlog [Lantus] 60 units SQ BEDTIME 06/23/18 Lamivudine [Lamivudine Hbv] 50 mg PO DAILY 06/23/18 Metoprolol Succinate [Toprol Xl] 100 mg PO DAILY 06/23/18 Pregabalin [Lyrica] 75 mg PO BID 06/23/18 Ritonavir 1 tab PO DAILY 06/23/18 Sevelamer Carbonate [Renvela] 1,600 mg PO TIDWM 06/23/18 hydroCHLOROthiazide [Hydrochlorothiazide] 1 tab PO DAILY 06/23/18 - Past Medical/Surgical History Diabetic: Yes -: diabetes NIDDM -: HTN -: ESRD -: Dialysis -: HIV infection -: COLON CANCER -: partial removal of colon -: appendectomy -: fistula to left arm - Family History Father Medical History: Cancer - Social History Smoking Status: Unknown if ever smoked Alcohol use: No CD- Drugs: No Caffeine use: Yes Review of Systems is unable to be obtained Physical Examination Temp Pulse Resp BP Pulse Ox 98.0 F 112 H 18 101/78 07/26/18 08:00 07/26/18 08:00 07/26/18 08:00 07/26/18 08:00 General: Confused, Delirious HEENT: Atraumatic, PERRLA, Mucous membr. moist/pink, EOMI, Scleral icterus Neck: Supple, 2+ carotid pulse no bruit, No LAD, Without JVD or thyroid abnormality Respiratory: Diminished Cardiovascular: Regular rate/rhythm, Normal S1 S2, Systolic murmur Gastrointestinal: Normal bowel sounds, Soft and benign, Non-distended, Tenderness (minimal) Musculoskeletal: No tenderness Integumentary: No rashes Neurological: Abnormal gait, Abnormal speech, Abnormal strength, Abnormal affect Lymphatics: No axilla or inguinal lymphadenopathy Laboratory Data (last 24 hrs) 07/26/18 01:51: Sodium 135 L, Potassium 5.4 H, BUN 79 H, Creatinine 9.40 H*, Glucose 163 H 07/25/18 22:27: Lipase Cancelled 07/25/18 22:00: PT 19.5 H, INR 1.69 07/25/18 22:00: WBC 14.6 H, Hgb 12.5 L, Hct 39.1 L, Plt Count 224 07/25/18 22:00: Sodium 132 L, Potassium 6.2 H*, BUN 76 H, Creatinine 9.37 H*, Glucose 99, Magnesium 2.8 H, Total Bilirubin 1.4 H, AST 1659 H*, ALT 1064 H*, Alkaline Phosphatase 64, Lipase 95 - Problems (1) Altered mental status Status: Acute (2) HIV (human immunodeficiency virus infection) Status: Acute (3) Acute hepatic failure Status: Acute (4) ESRD (end stage renal disease) Onset Date: 01/31/17 Status: Acute (5) Atrial fibrillation Status: Chronic Qualifiers: Atrial fibrillation type: chronic Qualified Code(s): I48.2 - Chronic atrial fibrillation (6) Hypertension Onset Date: 10/17/17 Status: Chronic Qualifiers: Hypertension type: essential hypertension Qualified Code(s): I10 - Essential (primary) hypertension Conclusions/ Impression: Plan: 1. GI/hepatology consultation 2. Neurology consultation 3. MRI of the brain as well as an MRCP of the bile duct 4. nephrology consultation for hemodialysis as scheduled 5. CD4 count and HIV viral load 6. Transfer to tertiary care center Critical Care: Yes Time Spent Managing Pts care (In Minutes): 50
--- NOTE | 2018-07-28 10:53 | RAD REPORT ---
EXAM DESCRIPTION: CT - Thorax Wo Con - 07/25/2018 11:56 pm CLINICAL HISTORY: 72 years Male cough COMPARISON: October 16, 2017. TECHNIQUE: Images were obtained in axial, sagittal, and coronal planes. No intravenous contrast was administered. This exam was performed according to our departmental dose-optimization program which includes use of Automated Exposure Control, adjustment of the mA and/or kV according to patient size and/or use of i terative reconstruction technique. FINDINGS: Enlarged heart with coronary artery calcification. Aortic root is dilated measuring 4.3 cm in greatest anterior posterior dimension. No pericardial effusion. Small right pleural effusion incr eased. No pleural effusion on left 2.7 cm right paratracheal lymph node with eccentric fatty replacement unchanged when correlated with the prior study.. Additional increased number of normal-sized lymph nodes aortopulmonary window. No pneumothorax. Minimal atelectatic change versus infiltrate medial right upper lobe. This has decre ased when correlated with the prior study. No infiltrates on left. No lung parenchymal nodules bilate rally. The No acute osseous abnormality. Marked degenerative change thoracolumbar spine. Marked vascular calcification upper abdomen. Cholelithiasis.. IMPRESSION: Dilated aortic root. Small right pleural effusion increased when correlated with the karoline or study. Enlarged right paratracheal lymph node unchanged. Atelectatic change versus infiltrate medial right upper lobe decreased when correlated with the prior study. Previously noted left lower lobe infiltrate and atelectatic change has resolved. Electronically signed by: Ghislaine Gomez MD 07/26/2018 12:12 AM CDT Due to temporary technical issues with the PACS/Fluency reporting system, reports are being signed by the in house radiologist as a courtesy to ensure prompt reporting. The interpreting radiologist is f ully responsible for the content of the report.
== END 2018-07-26 08:16 | disposition short-term general hospital (02) ==
LOC: ER 21:46
DX: R11.10 Vomiting, unspecified (principal); R79.89 Other specified abnormal findings of blood chemistry; R41.82 Altered mental status, unspecified; E11.22 Type 2 diabetes mellitus with diabetic chronic kidney disease; I12.0 Hypertensive chronic kidney disease with stage 5 chronic kidney disease or end stage renal disease; N18.6 End stage renal disease; Z21 Asymptomatic human immunodeficiency virus [HIV] infection status; Z79.4 Long term (current) use of insulin; Z88.5 Allergy status to narcotic agent; Z85.038 Personal history of other malignant neoplasm of large intestine; Z99.2 Dependence on renal dialysis
CPT/HCPCS: 96365; 96361; 93005; 87040 ×2; 85025; 80048 ×2; 36415; 82140; 83735; 82550; 85610; 82962 ×2; 80076; 83605 ×2; 84484; 82553; 83690; 83880; 71250; 71045; 82805; 96375; 99285; J7030 ×2; J2405

== ENCOUNTER 2018-08-17 08:18 | Inpatient (IN) | payer OTHER ==
--- OUTSIDE RECORDS SUMMARY | 2018-08-17 08:25 | XMS REPORT | Clinical Summary ---
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 insulin aspart U-100 Inject 10 Units 0 Active (NOVOLOG) 100 unit/mL subcutaneously 3 InPn (three) times daily before meals. hydroCHLOROthiazide Take 25 mg by 0 Active (HYDRODIURIL) 25 MG mouth daily. tablet lamiVUDine (EPIVIR) Take 100 mg by 0 Active 100 MG tablet mouth 2 (two) times daily. amLODIPine (NORVASC) Take 10 mg by 0 Active 10 MG tablet mouth daily. metoprolol (LOPRESSOR) Take [...] mouth 2 (two) times daily. sevelamer (RENVELA) Take 800 mg by 0 Active 800 mg tablet mouth 3 (three) times daily with meals. ritonavir (NORVIR) 100 Take by mouth 2 0 Active mg capsule (two) times daily. warfarin (COUMADIN) 5 Take 1 tablet (5 20 tablet 0 03/23/1903/23/ Active MG tablet mg total) by 2019 mouth daily. dilTIAZem (CARDIZEM Take 1 capsule 20 capsule 0 03/23/03/23/ Active SR) 60 MG 12 hr (60 mg total) by 2019 capsule mouth 2 (two) times daily. lamiVUDine (EPIVIR) Take 50 mg by 0 Active 100 MG tablet mouth daily. abacavir (ZIAGEN) 300 Take 300 mg by 0 Active mg tabletIndications: mouth 2 (two) HIV infection times daily. ritonavir (NORVIR) 100 Take 100 mg by 0 Active mg capsuleIndications: mouth 2 (two) HIV infection times daily. atazanavir (REYATAZ) Take 300 mg by 0 Active 300 MG mouth daily with capsuleIndications: breakfast. HIV infection gabapentin (NEURONTIN) Take 1 capsule 30 capsule 08/14/1908/12/ Active 100 MG capsule (100 mg total) by 2019 mouth nightly. insulin glargine Inject 12 Units 10 mL 3 08/14/1909/12/ Active (LANTUS) 100 unit/mL subcutaneously 2018 injectionIndications: every morning for type 2 diabetes 30 days Use as mellitus directed . metoprolol (TOPROL-XL) Take 1 tablet (25 30 tablet 08/15/1908/13/ Active 25 MG 24 hr tablet mg total) by 2019 mouth daily. sevelamer (RENVELA) Take 3 tablets 270 tablet 08/14/1908/12/ Active 800 mg tablet (2,400 mg total) 2019 by mouth 3 (three) times daily with meals. amiodarone (PACERONE) Take 1 tablet 30 tablet 08/15/1908/13/ Active 200 MG tablet (200 mg total) by 2019 mouth daily. aspirin 81 MG EC Take 1 tablet (81 30 tablet 08/15/1908/13/ Active tablet mg total) by 2019 mouth daily. benzonatate (TESSALON) Take 1 capsule 60 capsule 3 08/14/1910/12/ Active 200 MG capsule (200 mg total) by 2018 mouth 3 (three) times daily as needed for Cough for up to 60 days. cetirizine (ZYRTEC) 10 Take 1 tablet (10 30 tablet 08/15/1908/13/ Active MG tablet mg total) by 2019 mouth daily. famotidine (PEPCID) 20 Take 1 tablet (20 30 tablet 08/15/19 Active MG tablet mg total) by mouth daily. fluticasone propionate 1 spray by Nasal 9.9 mL 08/15/1908/13/ Active (FLONASE) 50 route daily. 2019 mcg/actuation nasal spray lactulose (CHRONULAC) Take 30 mLs (20 g 900 mL 08/14/1909/12/ Active 20 gram/30 mL solution total) by mouth 2018 daily for 30 days. melatonin 5 mg Tab Take 1 tablet (5 30 tablet 08/14/1909/12/ Active tablet mg total) by 2018 mouth nightly for 30 days. rOPINIRole (REQUIP) Take 1 tablet 30 tablet 08/14/1908/12/ Active 0.5 MG tablet (0.5 mg total) by 2019 mouth nightly. warfarin (COUMADIN) 5 Take 1 tablet (5 60 tablet 08/14/1908/12/ Active MG tablet mg total) by 2019 mouth daily (Take 1.5 tab po daily x3 days THEN 1 tab daily after that). benzonatate (TESSALON) Take 1 capsule 30 capsule 0 03/23/1903/30/ 100 MG capsule (100 mg total) by 2018 mouth every 8 (eight) hours for 7 days. insulin glargine Inject 60 Units 0 08/13/ Discontinued (LANTUS) 100 unit/mL subcutaneously 2019 injectionIndications: every morning Use type 2 diabetes as directed . mellitus insulin aspart U-100 Inject 10 Units 0 08/13/ Discontinued (NOVOLOG) 100 unit/mL subcutaneously 3 2018 injectionIndications: (three) times type 2 diabetes daily before mellitus meals. hydroCHLOROthiazide Take 25 mg by 0 08/13/ Discontinued (HYDRODIURIL) 25 MG mouth daily. 2019 tablet amLODIPine (NORVASC) Take 10 mg by 0 08/13/ Discontinued 10 MG mouth daily. 2019 tabletIndications: hypertension metoprolol (TOPROL-XL) Take 100 mg by 0 08/13/ Discontinued 200 MG 24 hr tablet mouth daily. 2019 gabapentin (NEURONTIN) Take 600 mg by 0 08/13/ Discontinued 600 MG tablet mouth 3 (three) 2019 times daily. atorvastatin (LIPITOR) Take 80 mg by 0 08/13/ Discontinued 80 MG tablet mouth nightly. 2018 furosemide (LASIX) 40 Take 40 mg by 0 08/13/ Discontinued MG tablet mouth 2 (two) 2019 times daily. pregabalin (LYRICA) 75 Take 75 mg by 0 08/13/ Discontinued MG capsule mouth 2 (two) 2019 times daily. sevelamer (RENVELA) Take 800 mg by 0 08/13/ Discontinued 800 mg mouth 3 (three) 2018 tabletIndications: times daily with Renal Osteodystrophy meals. with Hyperphosphatemia Active Problems Problem Noted Date Non-ischemic cardiomyopathy 08/09/2018 Acute on chronic systolic congestive heart failure 08/09/2018 Cardiogenic shock 07/27/2018 Asymptomatic HIV infection 07/26/2018 Elevated LFTs 07/26/2018 ESRD (end stage renal disease) on dialysis 07/26/2018 Cardiac volume overload 07/26/2018 Cough 07/26/2018 Transaminitis 07/26/2018 Syncope 07/26/2018 Aortic stenosis 07/26/2018 Encounters Date Type Specialty Care Team Description 07/28/2018 Surgery Randolph Marroquin CATH & PCI MD Davonte 07/26/2018 - Hospital Encounter General Internal Radha Luna Rheumatic aortic stenosis; 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 Medicine MD Eliseo Delirium due to another medical condition Haven Farley MD Zalavarria, Jonard Herbias, MD 07/26/2018 Orders Only General Internal Medicine 03/23/2018 Emergency Emergency Medicine Avel Dominguez SOB (shortness of breath) (Primary Dx); Typical atrial flutter (HCC); ESRD (end stage renal disease) (HCC) 03/23/2018 Orders Only General Internal Medicine 03/23/2018 Travel after 08/16/2017 Social History Tobacco Use Types Packs/Day Years Used Date Never Smoker Alcohol Use Drinks/Week oz/Week Comments No Alcohol Habits Answer Date Recorded How often do you have a drink containing alcohol? Never 03/23/2018 How many drinks containing alcohol do you have on a typical Not asked 2018 day when you are drinking? How often do you have six or more drinks on one occasion? Not asked 2018 Sex Assigned at Date Recorded Not on file Job Start Date Occupation Industry Not on file Not on file Not on file Travel History Travel Start Travel End No recent travel history available. Last Filed Vital Signs Vital Sign Reading Time Taken Blood Pressure 99/41 08/13/2018 7:22 AM CDT Pulse 74 08/13/2018 1:25 PM CDT Temperature 36.9 C (98.4 F) 08/13/2018 7:22 AM CDT Respiratory Rate 18 08/13/2018 1:25 PM CDT Oxygen Saturation 98% 08/13/2018 1:25 PM CDT Inhaled Oxygen Concentration 21% 08/10/2018 9:25 PM CDT Weight 102 kg (224 lb 12.8 oz) 08/13/2018 6:00 AM CDT Height 180.3 cm (5' 11") 07/26/2018 8:00 PM CDT Body Mass Index 31.35 08/13/2018 6:00 AM CDT Plan of Treatment Not on file Implants Implanted Type Area Mobile Security Specialist Device Shelf Model / Identifier Expiration Serial / Lot Date Angioseal Right: TERUMO:TERUMO 04/02/2019 [id number] / Implanted: Qty: 1 on 07/28/2018 by Davonte Marroquin MD [facility] / [id number] Procedures Procedure Name Priority Date/Time Associated Comments Diagnosis RHYTHM STRIP - SCAN 08/14/2018 2:22 PM CDT CARDIAC CATH REPORT - 08/14/2018 12:00 SCAN PM CDT RHYTHM STRIP - SCAN 08/14/2018 12:00 PM CDT REPORT OF PROCEDURE - 08/14/2018 7:58 ENDOSCOPY SCAN AM CDT RHYTHM STRIP - SCAN 08/14/2018 7:58 AM CDT POCT-GLUCOSE METER Routine 08/13/2018 12:24 Results for this PM CDT procedure are in the results section. POCT-GLUCOSE METER Routine 08/13/2018 7:21 Results for this AM CDT procedure are in the results section. CBC W/PLT COUNT & AUTO Routine 08/13/2018 5:55 Results for this DIFFERENTIAL AM CDT procedure are in the results section. PROTHROMBIN TIME/INR Routine 08/13/2018 5:55 Results for this AM CDT procedure are in the results section. PHOSPHORUS Routine 08/13/2018 5:55 Results for this AM CDT procedure are in the results section. MAGNESIUM Routine 08/13/2018 5:55 Results for this AM CDT procedure are in the results section. BASIC METABOLIC PANEL Routine 08/13/2018 5:55 Results for this (7) AM CDT procedure are in the results section. CBC W/PLT COUNT & AUTO Routine 08/13/2018 5:55 Results for this DIFFERENTIAL AM CDT procedure are in the results section. POCT-GLUCOSE METER Routine 08/12/2018 8:55 Results for this PM CDT procedure are in the results section. POCT-GLUCOSE METER Routine 08/12/2018 6:10 Results for this PM CDT procedure are in the results section. POCT-GLUCOSE METER Routine 08/12/2018 12:17 Results for this PM CDT procedure are in the results section. POCT-GLUCOSE METER Routine 08/12/2018 7:38 Results for this AM CDT procedure are in the results section. CBC W/PLT COUNT & AUTO Routine 08/12/2018 6:17 Results for this DIFFERENTIAL AM CDT procedure are in the results section. APTT STAT 08/12/2018 6:17 Results for this AM CDT procedure are in the results section. PROTHROMBIN TIME/INR Routine 08/12/2018 6:17 Results for this AM CDT procedure are in the results section. PHOSPHORUS Routine 08/12/2018 6:17 Results for this AM CDT procedure are in the results section. MAGNESIUM Routine 08/12/2018 6:17 Results for this AM CDT procedure are in the results section. BASIC METABOLIC PANEL Routine 08/12/2018 6:17 Results for this (7) AM CDT procedure are in the results section. CBC W/PLT COUNT & AUTO Routine 08/12/2018 6:17 Results for this DIFFERENTIAL AM CDT procedure are in the results section. PERIPHERAL VASCULAR 08/11/2018 9:23 REPORT - SCAN PM CDT POCT-GLUCOSE METER Routine 08/11/2018 8:53 Results for this PM CDT procedure are in the results section. POCT-GLUCOSE METER Routine 08/11/2018 5:06 Results for this PM CDT procedure are in the results section. POCT-GLUCOSE METER Routine 08/11/2018 11:32 Results for this AM CDT procedure are in the results section. POCT-GLUCOSE METER Routine 08/11/2018 7:16 Results for this AM CDT procedure are in the results section. CBC W/PLT COUNT & AUTO Routine 08/11/2018 5:46 Results for this DIFFERENTIAL AM CDT procedure are in the results section. APTT Routine 08/11/2018 5:46 Results for this AM CDT procedure are in the results section. PROTHROMBIN TIME/INR Routine 08/11/2018 5:46 Results for this AM CDT procedure are in the results section. PHOSPHORUS Routine 08/11/2018 5:46 Results for this AM CDT procedure are in the results section. MAGNESIUM Routine 08/11/2018 5:46 Results for this AM CDT procedure are in the results section. BASIC METABOLIC PANEL Routine 08/11/2018 5:46 Results for this (7) AM CDT procedure are in the results section. CBC W/PLT COUNT & AUTO Routine 08/11/2018 5:46 Results for this DIFFERENTIAL AM CDT procedure are in the results section. POCT-GLUCOSE METER Routine 08/10/2018 9:10 Results for this PM CDT procedure are in the results section. VENOUS DOPPLER LEGS Routine 08/10/2018 7:20 Results for this BILATERAL PM CDT procedure are in the results section. POCT-GLUCOSE METER Routine 08/10/2018 5:35 Results for this PM CDT procedure are in the results section. POCT-GLUCOSE METER Routine 08/10/2018 2:08 Results for this PM CDT procedure are in the results section. HEMODIALYSIS INPATIENT Routine 08/10/2018 11:19 AM CDT POCT-GLUCOSE METER Routine 08/10/2018 8:57 Results for this AM CDT procedure are in the results section. CBC W/PLT COUNT & AUTO Routine 08/10/2018 8:27 Results for this DIFFERENTIAL AM CDT procedure are in the results section. CBC W/PLT COUNT & AUTO Routine 08/10/2018 8:27 Results for this DIFFERENTIAL AM CDT procedure are in the results section. POCT-GLUCOSE METER Routine 08/10/2018 7:44 Results for this AM CDT procedure are in the results section. CBC W/PLT COUNT & AUTO STAT 08/10/2018 5:02 Results for this DIFFERENTIAL AM CDT procedure are in the results section. APTT Routine 08/10/2018 5:02 Results for this AM CDT procedure are in the results section. PROTHROMBIN TIME/INR Routine 08/10/2018 5:02 Results for this AM CDT procedure are in the results section. MAGNESIUM Routine 08/10/2018 5:02 Results for this AM CDT procedure are in the results section. CBC W/PLT COUNT & AUTO STAT 08/10/2018 5:02 Results for this DIFFERENTIAL AM CDT procedure are in the results section. COMPREHENSIVE Routine 08/10/2018 5:02 Results for this METABOLIC PANEL AM CDT procedure are in the results section. POCT-GLUCOSE METER Routine 08/09/2018 8:51 Results for this PM CDT procedure are in the results section. POCT-GLUCOSE METER Routine 08/09/2018 5:01 Results for this PM CDT procedure are in the results section. APTT Routine 08/09/2018 12:52 Results for this PM CDT procedure are in the results section. POCT-GLUCOSE METER Routine 08/09/2018 12:06 Results for this PM CDT procedure are in the results section. ECG 12-LEAD Routine 08/09/2018 11:38 AM CDT Procedure Note - Interface, External Ris In - 08/09/2018 11:39 AM CDT Ventricular Rate 73 BPM Atrial Rate 227 BPM QRS Duration 106 ms Q-T Interval 440 ms QTC Calculation(Bazett) 484 ms P Jbphh 84 degrees R Jbphh -48 degrees T Jbphh 100 degrees Atrial flutter with variable A-V block Left axis deviation Pulmonary disease pattern Minimal voltage criteria for LVH, may be normal variant Nonspecific ST and T wave abnormality Prolonged QT Abnormal ECG When compared with ECG of 08-AUG-2018 16:41, T wave inversion less evident in Lateral leads QT has lengthened ECG 12-LEAD Routine 08/09/2018 11:38 AM CDT POCT-GLUCOSE METER Routine 08/09/2018 7:28 AM CDT CBC W/PLT COUNT & AUTO STAT 08/09/2018 5:23 AM CDT Results for this DIFFERENTIAL procedure are in the results section. PROTHROMBIN TIME/INR Routine 08/09/2018 5:23 AM CDT MAGNESIUM Routine 08/09/2018 5:23 AM CDT CBC W/PLT COUNT & AUTO STAT 08/09/2018 5:23 AM CDT Results for this DIFFERENTIAL procedure are in the results section. COMPREHENSIVE METABOLIC Routine 08/09/2018 5:23 AM CDT Results for this PANEL procedure are in the results section. POCT-GLUCOSE METER Routine 08/08/2018 10:01 PM CDT POCT-GLUCOSE METER Routine 08/08/2018 4:43 PM CDT ECG 12-LEAD Routine 08/08/2018 4:41 PM CDT Procedure Note - Interface, External Ris In - 08/08/2018 4:46 PM CDT Ventricular Rate 59 BPM Atrial Rate 236 BPM QRS Duration 98 ms Q-T Interval 414 ms QTC Calculation(Bazett) 409 ms P Jbphh 73 degrees R Jbphh -54 degrees T Jbphh 95 degrees Atrial flutter with 4:1 A-V conduction Incomplete right bundle branch block Left anterior fascicular block Voltage criteria for left ventricular hypertrophy Nonspecific ST and T wave abnormality Abnormal ECG When compared with ECG of 06-AUG-2018 05:17, Atrial flutter has replaced Atrial fibrillation Vent. rate has decreased BY 40 BPM Incomplete right bundle branch block is now Present Minimal criteria for Septal infarct are no longer Present ECG 12-LEAD Routine 08/08/2018 4:41 PM CDT XR CHEST 1 VIEW Routine 08/08/2018 1:20 PM CDT Results for this PORTABLE/BEDSIDE procedure are in the results section. POCT-GLUCOSE METER Routine 08/08/2018 7:21 AM CDT CBC W/PLT COUNT & AUTO STAT 08/08/2018 5:50 AM CDT Results for this DIFFERENTIAL procedure are in the results section. PT/APTT Routine 08/08/2018 5:50 AM CDT PROTHROMBIN TIME/INR Routine 08/08/2018 5:50 AM CDT PHOSPHORUS Routine 08/08/2018 5:50 AM CDT MAGNESIUM Routine 08/08/2018 5:50 AM CDT CBC W/PLT COUNT & AUTO STAT 08/08/2018 5:50 AM CDT Results for this DIFFERENTIAL procedure are in the results section. COMPREHENSIVE METABOLIC Routine 08/08/2018 5:50 AM CDT Results for this PANEL procedure are in the results section. POCT-GLUCOSE METER Routine 08/07/2018 8:51 PM CDT POCT-GLUCOSE METER Routine 08/07/2018 5:40 PM CDT ARTERIAL DOPPLER LEGS STAT 08/07/2018 5:34 PM CDT Results for this BILATERAL procedure are in the results section. HEMODIALYSIS INPATIENT Routine 08/07/2018 1:32 PM CDT POCT-GLUCOSE METER Routine 08/07/2018 12:48 PM CDT POCT-GLUCOSE METER Routine 08/07/2018 11:47 AM CDT CBC W/PLT COUNT & AUTO Routine 08/07/2018 11:28 AM CDT Results for this DIFFERENTIAL procedure are in the results section. MAGNESIUM Routine 08/07/2018 11:28 AM CDT CBC W/PLT COUNT & AUTO Routine 08/07/2018 11:28 AM CDT Results for this DIFFERENTIAL procedure are in the results section. COMPREHENSIVE METABOLIC Routine 08/07/2018 11:28 AM CDT Results for this PANEL procedure are in the results section. PT/APTT Routine 08/07/2018 11:27 AM CDT POCT-GLUCOSE METER Routine 08/06/2018 9:[address]/CTA ABDOMEN & PELVIS Routine 08/06/2018 4:[address]/CTA CHEST Routine 08/06/2018 4:05 PM CDT POCT-GLUCOSE METER Routine 08/06/2018 11:20 AM CDT POCT-GLUCOSE METER Routine 08/06/2018 7:25 AM CDT ECG 12-LEAD Routine 08/06/2018 5:17 AM CDT CBC W/PLT COUNT & AUTO STAT 08/06/2018 1:51 AM CDT Results for this DIFFERENTIAL procedure are in the results section. APTT STAT 08/06/2018 1:51 AM CDT PHOSPHORUS Routine 08/06/2018 1:51 AM CDT MAGNESIUM Routine 08/06/2018 1:51 AM CDT PROTHROMBIN TIME/INR Routine 08/06/2018 1:51 AM CDT COMPREHENSIVE METABOLIC Routine 08/06/2018 1:51 AM CDT Results for this PANEL procedure are in the results section. CBC W/PLT COUNT & AUTO STAT 08/06/2018 1:51 AM CDT Results for this DIFFERENTIAL procedure are in the results section. POCT-GLUCOSE METER Routine 08/05/2018 9:14 PM CDT POCT-GLUCOSE METER Routine 08/05/2018 7:11 PM CDT HEMODIALYSIS INPATIENT Routine 08/05/2018 7:06 PM CDT HEMODIALYSIS INPATIENT Routine 08/05/2018 7:06 PM CDT VASCULAR DIAGRAM -SCAN 08/05/2018 3:21 PM CDT HEMODIALYSIS INPATIENT Routine 08/05/2018 1:39 PM CDT IR AV SHUNT/FISTULAGRAM NELDA 08/05/2018 11:55 AM CDT POCT-GLUCOSE METER Routine 08/05/2018 7:24 AM CDT ECG 12-LEAD Routine 08/05/2018 6:15 AM CDT Procedure Note - Interface, External Ris In - 08/05/2018 6:26 AM CDT Ventricular Rate 85 BPM Atrial Rate 242 BPM QRS Duration 96 ms Q-T Interval 394 ms QTC Calculation(Bazett) 468 ms R Jbphh -57 degrees T Jbphh 104 degrees Atrial flutter with variable A-V block Left anterior fascicular block Left ventricular hypertrophy with repolarization abnormality Abnormal ECG When compared with ECG of 03-AUG-2018 04:19, Incomplete right bundle branch block is no longer Present ECG 12-LEAD Routine 08/05/2018 6:15 AM CDT CBC W/PLT COUNT & AUTO STAT 08/05/2018 1:31 AM CDT Results for this DIFFERENTIAL procedure are in the results section. PROTHROMBIN TIME/INR Routine 08/05/2018 1:31 AM CDT COMPREHENSIVE METABOLIC Routine 08/05/2018 1:31 AM CDT Results for this PANEL procedure are in the results section. CBC W/PLT COUNT & AUTO STAT 08/05/2018 1:31 AM CDT Results for this DIFFERENTIAL procedure are in the results section. PHOSPHORUS Routine 08/05/2018 1:31 AM CDT MAGNESIUM Routine 08/05/2018 1:31 AM CDT APTT Routine 08/05/2018 1:31 AM CDT APTT Routine 08/04/2018 8:41 PM CDT POCT-GLUCOSE METER Routine 08/04/2018 8:34 PM CDT POCT-GLUCOSE METER Routine 08/04/2018 4:45 PM CDT APTT Routine 08/04/2018 1:36 PM CDT PERIPHERAL BLOOD SMEAR - STAT 08/04/2018 1:35 PM CDT Results for this HOLD ONLY procedure are in the results section. POCT-GLUCOSE METER Routine 08/04/2018 12:27 PM CDT APTT Routine 08/04/2018 8:02 AM CDT POCT-GLUCOSE METER Routine 08/04/2018 7:31 AM CDT CBC W/PLT COUNT & AUTO STAT 08/04/2018 3:34 AM CDT Results for this DIFFERENTIAL procedure are in the results section. APTT STAT 08/04/2018 3:34 AM CDT PROTHROMBIN TIME/INR Routine 08/04/2018 3:34 AM CDT COMPREHENSIVE METABOLIC Routine 08/04/2018 3:34 AM CDT Results for this PANEL procedure are in the results section. CBC W/PLT COUNT & AUTO STAT 08/04/2018 3:34 AM CDT Results for this DIFFERENTIAL procedure are in the results section. MAGNESIUM Routine 08/04/2018 3:34 AM CDT POCT-GLUCOSE METER Routine 08/03/2018 10:54 PM CDT APTT Routine 08/03/2018 9:21 PM CDT POCT-GLUCOSE METER Routine 08/03/2018 4:27 PM CDT HEXAGONAL PHOSPHOLIPID AP Routine 08/03/2018 1:51 PM CDT SEROTONIN RELEASE ASSAY Routine 08/03/2018 1:51 PM CDT THROMBIN TIME AP Routine 08/03/2018 1:51 PM CDT EQUAL MIX, NORMAL PLASMA AP Routine 08/03/2018 1:51 PM CDT CARDIOLIPIN ANTIBODIES, IGG Routine 08/03/2018 1:51 PM CDT Results for this AND IGM procedure are in the results section. LUPUS ANTICOAGULANT SCREEN AP Routine 08/03/2018 1:51 PM CDT Results for this WITH REFLEX TO CONFIRMATORY procedure are in the results section. IMMUNOGLOBULIN A (IGA) Routine 08/03/2018 1:51 PM CDT IMMUNOGLOBULIN M (IGM) Routine 08/03/2018 1:51 PM CDT IMMUNOGLOBULIN G (IGG) Routine 08/03/2018 1:51 PM CDT VITAMIN B12 AND FOLATE Routine 08/03/2018 1:51 PM CDT IRON, TIBC, % SAT. (WITHOUT Routine 08/03/2018 1:51 PM CDT Results for this FERRITIN) procedure are in the results section. FERRITIN Routine 08/03/2018 1:51 PM CDT PROTEIN ELECTROPHORESIS, Routine 08/03/2018 1:51 PM CDT Results for this SERUM procedure are in the results section. HEPARIN ANTIBODY STAT 08/03/2018 1:51 PM CDT PERIPHERAL BLOOD SMEAR - STAT 08/03/2018 1:49 PM CDT Results for this PATHOLOGIST REVIEW procedure are in the results section. POCT-GLUCOSE METER Routine 08/03/2018 12:25 PM CDT CBC W/PLT COUNT & AUTO STAT 08/03/2018 11:20 AM CDT Results for this DIFFERENTIAL procedure are in the results section. CBC W/PLT COUNT & AUTO STAT 08/03/2018 11:20 AM CDT Results for this DIFFERENTIAL procedure are in the results section. APTT Routine 08/03/2018 8:55 AM CDT POCT-GLUCOSE METER Routine 08/03/2018 7:58 AM CDT ECG 12-LEAD Routine 08/03/2018 4:19 AM CDT Procedure Note - Interface, External Ris In - 08/03/2018 4:21 AM CDT Ventricular Rate 79 BPM Atrial Rate 241 BPM QRS Duration 102 ms Q-T Interval 428 ms QTC Calculation(Bazett) 490 ms P Jbphh 78 degrees R Jbphh -70 degrees T Jbphh 90 degrees Atrial flutter with variable A-V block Incomplete right bundle branch block Left anterior fascicular block Left ventricular hypertrophy with repolarization abnormality Prolonged QT Abnormal ECG When compared with ECG of 31-JUL-2018 06:21, Incomplete right bundle branch block is now Present ECG 12-LEAD Routine 08/03/2018 4:19 AM CDT PROTHROMBIN TIME/INR Routine 08/03/2018 2:07 AM CDT COMPREHENSIVE METABOLIC Routine 08/03/2018 2:07 AM CDT Results for this PANEL procedure are in the results section. APTT Routine 08/03/2018 2:07 AM CDT PHOSPHORUS Routine 08/03/2018 2:07 AM CDT MAGNESIUM Routine 08/03/2018 2:07 AM CDT VENOUS DOPPLER ARM, RIGHT Routine 08/03/2018 12:11 AM CDT POCT-GLUCOSE METER Routine 08/02/2018 9:16 PM CDT POCT-GLUCOSE METER Routine 08/02/2018 6:19 PM CDT POCT-GLUCOSE METER Routine 08/02/2018 2:41 PM CDT POCT-GLUCOSE METER Routine 08/02/2018 7:09 AM CDT CBC W/PLT COUNT & AUTO STAT 08/02/2018 4:26 AM CDT Results for this DIFFERENTIAL procedure are in the results section. APTT Routine 08/02/2018 4:26 AM CDT PROTHROMBIN TIME/INR Routine 08/02/2018 4:26 AM CDT COMPREHENSIVE METABOLIC Routine 08/02/2018 4:26 AM CDT Results for this PANEL procedure are in the results section. CBC W/PLT COUNT & AUTO STAT 08/02/2018 4:26 AM CDT Results for this DIFFERENTIAL procedure are in the results section. PHOSPHORUS Routine 08/02/2018 4:26 AM CDT MAGNESIUM Routine 08/02/2018 4:26 AM CDT POCT-GLUCOSE METER Routine 08/01/2018 5:47 PM CDT POCT-GLUCOSE METER Routine 08/01/2018 11:51 AM CDT POCT-GLUCOSE METER Routine 08/01/2018 7:38 AM CDT CBC W/PLT COUNT & AUTO STAT 08/01/2018 5:28 AM CDT Results for this DIFFERENTIAL procedure are in the results section. APTT Routine 08/01/2018 5:28 AM CDT PROTHROMBIN TIME/INR Routine 08/01/2018 5:28 AM CDT COMPREHENSIVE METABOLIC Routine 08/01/2018 5:28 AM CDT Results for this PANEL procedure are in the results section. CBC W/PLT COUNT & AUTO STAT 08/01/2018 5:28 AM CDT Results for this DIFFERENTIAL procedure are in the results section. HEPATIC FUNCTION PANEL Routine 08/01/2018 5:28 AM CDT POCT-GLUCOSE METER Routine 07/31/2018 11:43 PM CDT APTT Routine 07/31/2018 11:32 PM CDT HEMODIALYSIS INPATIENT Routine 07/31/2018 7:11 PM CDT POCT-GLUCOSE METER Routine 07/31/2018 6:10 PM CDT APTT Routine 07/31/2018 4:44 PM CDT XR CHEST 1 VIEW STAT 07/31/2018 3:31 PM CDT Results for this PORTABLE/BEDSIDE procedure are in the results section. POCT-GLUCOSE METER Routine 07/31/2018 11:44 AM CDT APTT Routine 07/31/2018 11:[address] BRAIN WITHOUT IV CONTRAST STAT 07/31/2018 10:21 AM CDT AMMONIA Routine 07/31/2018 9:48 AM CDT BLOOD GAS, ARTERIAL STAT 07/31/2018 8:37 AM CDT POCT-GLUCOSE METER Routine 07/31/2018 8:20 AM CDT ECG 12-LEAD Routine 07/31/2018 6:21 AM CDT POCT-GLUCOSE METER Routine 07/31/2018 5:36 AM CDT CBC W/PLT COUNT & AUTO STAT 07/31/2018 4:24 AM CDT Results for this DIFFERENTIAL procedure are in the results section. APTT Routine 07/31/2018 4:24 AM CDT PROTHROMBIN TIME/INR Routine 07/31/2018 4:24 AM CDT COMPREHENSIVE METABOLIC Routine 07/31/2018 4:24 AM CDT Results for this PANEL procedure are in the results section. CBC W/PLT COUNT & AUTO STAT 07/31/2018 4:24 AM CDT Results for this DIFFERENTIAL procedure are in the results section. PHOSPHORUS Routine 07/31/2018 4:24 AM CDT MAGNESIUM Routine 07/31/2018 4:24 AM CDT POCT-GLUCOSE METER Routine 07/30/2018 11:31 PM CDT APTT Routine 07/30/2018 10:02 PM CDT POCT-GLUCOSE METER Routine 07/30/2018 5:57 PM CDT APTT Routine 07/30/2018 4:20 PM CDT POCT-GLUCOSE METER Routine 07/30/2018 12:27 PM CDT ECG 12-LEAD Routine 07/30/2018 7:52 AM CDT Procedure Note - Interface, External Ris In - 07/30/2018 8:08 AM CDT Ventricular Rate 82 BPM Atrial Rate 267 BPM QRS Duration 102 ms Q-T Interval 434 ms QTC Calculation(Bazett) 507 ms P Jbphh 265 degrees R Jbphh -50 degrees T Jbphh 147 degrees Atrial flutter with variable A-V block Pulmonary disease pattern Left anterior fascicular block Nonspecific ST and T wave abnormality Prolonged QT Abnormal ECG When compared with ECG of 30-JUL-2018 07:52, No significant change was found ECG 12-LEAD Routine 07/30/2018 7:52 AM CDT ECG 12-LEAD Routine 07/30/2018 7:52 AM CDT Procedure Note - Interface, External Ris In - 07/30/2018 8:07 AM CDT Ventricular Rate 85 BPM Atrial Rate 242 BPM QRS Duration 110 ms Q-T Interval 450 ms QTC Calculation(Bazett) 535 ms P Jbphh 110 degrees R Jbphh -48 degrees T Jbphh 104 degrees Atrial flutter with variable A-V block Pulmonary disease pattern Left anterior fascicular block Nonspecific ST and T wave abnormality Prolonged QT Abnormal ECG When compared with ECG of 26-JUL-2018 10:34, Atrial flutter has replaced Sinus rhythm ST no longer elevated in Inferior leads CBC W/PLT COUNT & AUTO STAT 07/30/2018 6:11 AM Results for this DIFFERENTIAL CDT procedure are in the results section. COMPREHENSIVE METABOLIC Routine 07/30/2018 6:11 AM Results for this PANEL CDT procedure are in the results section. CBC W/PLT COUNT & AUTO STAT 07/30/2018 6:11 AM Results for this DIFFERENTIAL CDT procedure are in the results section. MAGNESIUM Routine 07/30/2018 6:11 AM Results for this CDT procedure are in the results section. AMMONIA Routine 07/30/2018 6:11 AM Results for this CDT procedure are in the results section. PROTHROMBIN TIME/INR Routine 07/30/2018 6:11 AM Results for this CDT procedure are in the results section. POCT-GLUCOSE METER Routine 07/30/2018 5:32 AM Results for this CDT procedure are in the results section. POCT-GLUCOSE METER Routine 07/30/2018 12:01 AM Results for this CDT procedure are in the results section. HEMODIALYSIS INPATIENT Routine 07/29/2018 11:07 PM Results for this CDT procedure are in the results section. POCT-GLUCOSE METER Routine 07/29/2018 5:12 PM Results for this CDT procedure are in the results section. POCT-GLUCOSE METER Routine 07/29/2018 5:41 AM Results for this CDT procedure are in the results section. CBC W/PLT COUNT & AUTO STAT 07/29/2018 3:14 AM Results for this DIFFERENTIAL CDT procedure are in the results section. COMPREHENSIVE METABOLIC Routine 07/29/2018 3:14 AM Results for this PANEL CDT procedure are in the results section. CBC W/PLT COUNT & AUTO STAT 07/29/2018 3:14 AM Results for this DIFFERENTIAL CDT procedure are in the results section. PROTHROMBIN TIME/INR Routine 07/29/2018 3:14 AM Results for this CDT procedure are in the results section. MAGNESIUM Routine 07/29/2018 3:14 AM Results for this CDT procedure are in the results section. TSH/FREE T4 IF Routine 07/29/2018 3:14 AM Results for this INDICATED CDT procedure are in the results section. POCT-GLUCOSE METER Routine 07/28/2018 11:40 PM Results for this CDT procedure are in the results section. POCT-GLUCOSE METER Routine 07/28/2018 6:25 PM Results for this CDT procedure are in the results section. L CATH & PCI 07/28/2018 5:45 PM Non-STEMI (non-ST CDT elevated myocardial infarction) (HCC) APTT Routine 07/28/2018 2:16 PM Results for this CDT procedure are in the results section. LACTIC ACID, VENOUS STAT 07/28/2018 2:16 PM Results for this CDT procedure are in the results section. BASIC METABOLIC PANEL STAT 07/28/2018 2:16 PM Results for this (7) CDT procedure are in the results section. AMMONIA Routine 07/28/2018 2:16 PM Results for this CDT procedure are in the results section. POCT-GLUCOSE METER Routine 07/28/2018 1:04 PM Results for this CDT procedure are in the results section. POCT-GLUCOSE METER Routine 07/28/2018 8:18 AM Results for this CDT procedure are in the results section. LACTIC ACID, VENOUS STAT 07/28/2018 8:13 AM Results for this CDT procedure are in the results section. PROTHROMBIN TIME/INR Routine 07/28/2018 8:13 AM Results for this CDT procedure are in the results section. APTT Routine 07/28/2018 8:13 AM Results for this CDT procedure are in the results section. POCT-GLUCOSE METER Routine 07/28/2018 6:06 AM Results for this CDT procedure are in the results section. (CELLAVISION MANUAL STAT 07/28/2018 4:09 AM Results for this DIFF) CDT procedure are in the results section. CBC W/PLT COUNT & AUTO STAT 07/28/2018 4:09 AM Results for this DIFFERENTIAL CDT procedure are in the results section. PHOSPHORUS Routine 07/28/2018 4:09 AM Results for this CDT procedure are in the results section. COMPREHENSIVE METABOLIC STAT 07/28/2018 4:09 AM Results for this PANEL CDT procedure are in the results section. CBC W/PLT COUNT & AUTO STAT 07/28/2018 4:09 AM Results for this DIFFERENTIAL CDT procedure are in the results section. PTH, INTACT Routine 07/28/2018 4:09 AM Results for this CDT procedure are in the results section. APTT Routine 07/28/2018 1:45 AM Results for this CDT procedure are in the results section. POCT-GLUCOSE METER Routine 07/28/2018 12:10 AM Results for this CDT procedure are in the results section. APTT STAT 07/28/2018 12:04 AM Results for this CDT procedure are in the results section. BASIC METABOLIC PANEL STAT 07/28/2018 12:04 AM Results for this (7) CDT procedure are in the results section. ECHOCARDIOGRAM REPORT - 07/27/2018 9:22 PM SCAN CDT POCT-GLUCOSE METER Routine 07/27/2018 5:58 PM Results for this CDT procedure are in the results section. APTT Routine 07/27/2018 5:14 PM Results for this CDT procedure are in the results section. POCT-GLUCOSE METER Routine 07/27/2018 1:33 PM Results for this CDT procedure are in the results section. HEMODIALYSIS INPATIENT Routine 07/27/2018 12:46 PM Results for this CDT procedure are in the results section. PT/APTT Routine 07/27/2018 10:06 AM Results for this CDT procedure are in the results section. HEPATITIS B SURFACE Routine 07/27/2018 8:36 AM Results for this ANTIGEN CDT procedure are in the results section. POCT-GLUCOSE METER Routine 07/27/2018 6:34 AM Results for this CDT procedure are in the results section. TROPONIN I STAT 07/27/2018 6:32 AM Results for this CDT procedure are in the results section. CBC W/PLT COUNT & AUTO Routine 07/27/2018 1:36 AM Results for this DIFFERENTIAL CDT procedure are in the results section. PHOSPHORUS Routine 07/27/2018 1:36 AM Results for this CDT procedure are in the results section. COMPREHENSIVE METABOLIC STAT 07/27/2018 1:36 AM Results for this PANEL CDT procedure are in the results section. CBC W/PLT COUNT & AUTO Routine 07/27/2018 1:36 AM Results for this DIFFERENTIAL CDT procedure are in the results section. BASIC METABOLIC PANEL Routine 07/27/2018 1:36 AM Results for this (7) CDT procedure are in the results section. LACTIC ACID, VENOUS Routine 07/27/2018 1:36 AM Results for this CDT procedure are in the results section. TROPONIN I STAT 07/27/2018 1:36 AM Results for this CDT procedure are in the results section. APTT Routine 07/27/2018 1:30 AM Results for this CDT procedure are in the results section. POCT-GLUCOSE METER Routine 07/26/2018 11:20 PM Results for this CDT procedure are in the results section. BLOOD GAS, ARTERIAL STAT 07/26/2018 9:53 PM Results for this CDT procedure are in the results section. RESPIRATORY PANEL SLHS STAT 07/26/2018 8:30 PM Results for this CDT procedure are in the results section. ECHO W CONTRAST & STAT 07/26/2018 8:03 PM Results for this DOPPLER CDT procedure are in the results section. POCT-GLUCOSE METER Routine 07/26/2018 7:53 PM Results for this CDT procedure are in the results section. CT BRAIN WITHOUT IV STAT 07/26/2018 7:22 PM Results for this CONTRAST CDT procedure are in the results section. BLOOD CULTURE Routine 07/26/2018 6:45 PM Results for this CDT procedure are in the results section. BASIC METABOLIC PANEL Routine 07/26/2018 6:44 PM Results for this (7) CDT procedure are in the results section. LACTIC ACID, VENOUS Routine 07/26/2018 6:44 PM Results for this CDT procedure are in the results section. TROPONIN I STAT 07/26/2018 6:44 PM Results for this CDT procedure are in the results section. APTT Routine 07/26/2018 6:44 PM Results for this CDT procedure are in the results section. HEMOGLOBIN A1C Routine 07/26/2018 6:44 PM Results for this CDT procedure are in the results section. POCT-GLUCOSE METER Routine 07/26/2018 6:43 PM Results for this CDT procedure are in the results section. POCT-GLUCOSE METER Routine 07/26/2018 2:12 PM Results for this CDT procedure are in the results section. BLOOD GAS, ARTERIAL Routine 07/26/2018 12:15 PM Results for this CDT procedure are in the results section. HIV-1 PCR, QUANTITATIVE Routine 07/26/2018 12:11 PM Results for this CDT procedure are in the results section. LACTIC ACID, VENOUS STAT 07/26/2018 12:11 PM Results for this CDT procedure are in the results section. (CELLAVISION MANUAL STAT 07/26/2018 12:10 PM Results for this DIFF) CDT procedure are in the results section. CBC W/PLT COUNT & AUTO STAT 07/26/2018 12:10 PM Results for this DIFFERENTIAL CDT procedure are in the results section. HEPATIC FUNCTION PANEL Routine 07/26/2018 12:10 PM Results for this CDT procedure are in the results section. CD4 T CELL SUBSET Routine 07/26/2018 12:10 PM Results for this CDT procedure are in the results section. COMPREHENSIVE METABOLIC STAT 07/26/2018 12:10 PM Results for this PANEL CDT procedure are in the results section. PROCALCITONIN STAT 07/26/2018 12:10 PM Results for this CDT procedure are in the results section. LIPASE Routine 07/26/2018 12:10 PM Results for this CDT procedure are in the results section. PROTHROMBIN TIME/INR Routine 07/26/2018 12:10 PM Results for this CDT procedure are in the results section. CBC W/PLT COUNT & AUTO STAT 07/26/2018 12:10 PM Results for this DIFFERENTIAL CDT procedure are in the results section. TROPONIN I STAT 07/26/2018 12:10 PM Results for this CDT procedure are in the results section. POCT-GLUCOSE METER Routine 07/26/2018 11:42 AM Results for this CDT procedure are in the results section. B-TYPE NATRIURETIC Routine 07/26/2018 11:22 AM Results for this FACTOR (BNP) CDT procedure are in the results section. XR CHEST 1 VIEW STAT 07/26/2018 11:05 AM Results for this PORTABLE/BEDSIDE CDT procedure are in the results section. US ABDOMEN LIMITED STAT 07/26/2018 11:04 AM Results for this CDT procedure are in the results section. ECG 12-LEAD STAT 07/26/2018 10:34 AM Results for this CDT procedure are in the results section. BLOOD CULTURE Routine 07/26/2018 10:30 AM Results for this CDT procedure are in the results section. XR CHEST 2 VIEWS STAT 03/23/2018 6:17 PM Results for this [employer] procedure are in the results section. CBC W/PLT COUNT & AUTO STAT 03/23/2018 6:05 PM Results for this DIFFERENTIAL [employer] procedure are in the results section. CREATINE KINASE (CK) STAT 03/23/2018 6:05 PM Results for this [employer] procedure are in the results section. RAPID TROPONIN I STAT 03/23/2018 6:05 PM Results for this [employer] procedure are in the results section. B-TYPE NATRIURETIC STAT 03/23/2018 6:05 PM Results for this FACTOR (BNP) [employer] procedure are in the results section. RAPID CK-MB STAT 03/23/2018 6:05 PM Results for this [employer] procedure are in the results section. RAPID MYOGLOBIN STAT 03/23/2018 6:05 PM Results for this [employer] procedure are in the results section. PT/APTT STAT 03/23/2018 6:05 PM Results for this [employer] procedure are in the results section. CBC W/PLT COUNT & AUTO STAT 03/23/2018 6:05 PM Results for this DIFFERENTIAL [employer] procedure are in the results section. MAGNESIUM STAT 03/23/2018 6:05 PM Results for this [employer] procedure are in the results section. BASIC METABOLIC PANEL STAT 03/23/2018 6:05 PM Results for this (7) [employer] procedure are in the results section. ED ECG INTERPRETATION Routine 03/23/2018 5:42 PM Results for this [employer] procedure are in the results section. ECG 12-LEAD Routine 03/23/2018 5:38 PM [employer] Procedure Note - Interface, External Ris In - 03/23/2018 6:20 PM [employer] Ventricular Rate 126 BPM Atrial Rate 278 BPM QRS Duration 88 ms Q-T Interval 376 ms QTC Calculation(Bazett) 544 ms R Jbphh 28 degrees T Jbphh 85 degrees Atrial flutter with variable A-V block Abnormal ECG No previous ECGs available ECG 12-LEAD STAT 03/23/2018 5:38 PM [employer] after 08/16/2017 Results RHYTHM STRIP - SCAN (08/14/2018 2:22 PM CDT)Only the most recent of3 resultswithin the time period is included. Narrative Performed At CARDIAC CATH REPORT - SCAN (08/14/2018 12:00 PM CDT) Narrative Performed At EKG-SCANNED (08/14/2018 7:58 AM CDT) Narrative Performed At POC-Glucose meter (08/13/2018 12:24 PM CDT)Only the most recent of73 resultswithin the time period is included. POC-Glucose Meter 131 (H)Comment: TESTED AT 70 - 110 mg/dL [facility] [address] [facility] [address] Specimen Blood Performing Organization Address City/State/Zipcode Phone Number [address] [address] [phone] CENTER CBC with platelet count + automated diff (08/13/2018 5:55 AM CDT)Only the most recent of21 resultswithin the time period is included. WBC 9.4 3.5 - 10.5 K/L [facility] RBC 3.25 (L) 4.63 - 6.08 M/L [facility] Hemoglobin 10.2 (L) 13.7 - 17.5 GM/DL [facility] Hematocrit 33.0 (L) 40.1 - 51.0 % [facility] MCV 101.5 (H) 79.0 - 92.2 fL [facility] MCH 31.4 25.7 - 32.2 pg [facility] MCHC 30.9 (L) 32.3 - 36.5 GM/DL [facility] RDW 18.5 (H) 11.6 - 14.4 % [facility] Platelets 202 150 - 450 K/CU MM [facility] MPV 10.8 9.4 - 12.4 fL [facility] nRBC 0 0 - 0 /100 WBC [facility] % Neutros 81 % [facility] % Lymphs 7 % [facility] % Monos 8 % [facility] % Eos 2 % [facility] % Baso 1 % [facility] # Neutros 7.63 (H) 1.78 - 5.38 K/L [facility] # Lymphs 0.70 (L) 1.32 - 3.57 K/L [facility] # Monos 0.78 0.30 - 0.82 K/L [facility] # Eos 0.18 0.04 - 0.54 K/L [facility] # Baso 0.06 0.01 - 0.08 K/L [facility] Immature 1 0 - 1 % [facility] Granulocytes-[facility] Specimen Blood Performing Organization Address City/State/Zipcode Phone Number [facility] [address] [place] [address] CENTER Daily Prothrombin time/INR while on warfarin (08/13/2018 5:55 AM CDT)Only the most recent of17 resultswithin the time period is included. Protime 18.4 (H) 11.9 - 14.2 seconds [facility] INR 1.6 <=5.9 [facility] Specimen Blood Narrative Performed At Effective 07/29/2018: PT Reference Range [facility] Change New: 11.9-14.2Previous: 11.7-14.7 RECOMMENDED COUMADIN/WARFARIN INR THERAPY RANGES STANDARD DOSE: 2.0-3.0Includes: PROPHYLAXIS for venous thrombosis, systemic embolization; TREATMENT for venous thrombosis and/or pulmonary embolus. HIGH RISK: Target INR is 2.5-3.5 for patients wiht mechanical heart valves. While on warfarin. Performing Organization Address City/[facility] Phone Number [address] [address] CENTER Phosphorus (08/13/2018 5:55 AM CDT)Only the most recent of11 resultswithin the time period is included. Phosphorus 3.7 2.3 - 4.7 mg/dL [facility] Specimen Blood Performing Organization Address [facility] Phone Number [address] [address] CENTER Magnesium (08/13/2018 5:55 AM CDT)Only the most recent of16 resultswithin the time period is included. Magnesium 2.6 1.6 - 2.6 mg/dL [facility] Specimen Blood Performing Organization Address [facility] Phone Number [address] [address] [phone] CENTER Basic Metabolic Panel (08/13/2018 5:55 AM CDT)Only the most recent of8 resultswithin the time period is included. Sodium 137 136 - 145 meq/L [facility] Potassium 4.4 3.5 - 5.1 meq/L [facility] Chloride 99 98 - 107 meq/L [facility] CO2 29 22 - 29 meq/L [facility] BUN 31 (H) 7 - 21 mg/dL [facility] Creatinine 5.05 (H) 0.57 - 1.25 mg/dL [facility] Glucose 146 (H) 70 - 105 mg/dL [facility] Calcium 9.0 8.4 - 10.2 mg/dL [facility] EGFR 11Comment: ESTIMATED GFR IS mL/min/1.73 sq m [facility] NOT ACCURATE CREATININE [facility] CLEARANCE IN PREDICTING GLOMERULAR FILTRATION RATE. ESTIMATED GFR IS NOT APPLICABLE FOR DIALYSIS PATIENTS. Specimen Blood Performing Organization Address City/[facility] Phone Number [address] [address] [place] aPTT (08/12/2018 6:17 AM CDT)Only the most recent of28 resultswithin the time period is included. PTT 89.2 (H) 22.5 - 36.0 seconds [facility] Specimen Blood Narrative Performed At 4 hours after the start of continuous [facility] infusion and 4 hours after any rate change While on warfarin. Performing Organization Address City/[facility] Phone Number [address] [address] [place] PERIPHERAL VASCULAR REPORT - SCAN (08/11/2018 9:23 PM CDT) Narrative Performed At Venous doppler legs bilateral (08/10/2018 7:20 PM CDT) Ejection Fraction [facility] Specimen Impressions Performed At Right Impression [facility] 1. There is no deep venous obstruction in the common femoral, profunda femoral, femoral, popliteal, posterior tibial or peroneal veins. 2. There is no superficial venous obstruction in the great saphenous vein. Left Impression 1. There is no deep venous obstruction in the common femoral, profunda femoral, femoral, popliteal, posterior tibial or peroneal veins. 2. There is no superficial venous obstruction in the great saphenous vein. Conclusions Summary Venous duplex imaging and compression of the bilateral lower extremities were performed. The veins were adequately visualized. The bilateral venous systems were patent and compressible with no evidence of thrombus. The venous Doppler waveforms were phasic with respiration . Signature Velocities are measured in cm/s ; Diameters are measured in cm Narrative Performed At [facility] - Lower Extremities DVT Study [facility] Demographics Patient Shira Davila of Study 08/10/2018 Age 72 Visit [id number] GenderMale Date of 1945 Referring Elmo Ibarra, Room Number 914 Physician Boardmarker Dio Price STELLAmago MUNOZ Procedure Type of Study: Veins: Lower Extremities DVT Study, VENOUS DOPPLER LEG, BILATERAL. Indications for Study:Swelling. Patient Status:Routine. Study Location:Vascular Lab. Technical Quality:Adequate visualization. Risk Factors History of Disease + +----+ + !Diagnosis!Date!Comments ! 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 !Factors: !!HIV, HTN, HLD, DM, H/o Colon Cancer, Carotid Stenosis, ! ! !!Dry Ulcers on Dorsal Toes, Right Arm Invasive Lines, ! ! !!Left Subclavian Dialysis Catheter, Started on Heparin! ! !!08/02/18 ! + +----+ + Procedure Note Interface, External Ris In - 08/11/2018 3:40 PM CDT [facility] - Lower Extremities DVT Study Demographics Patient Name CIERRA SALINAS Date of Study 08/10/2018 Age 72 Visit Number [id number] Gender Male Accession Number [id number] Date of 1945 Referring Nishaangela Stacey, Room Number 914 Physician Boardmarker Dio Stoddard Interpreting Connie Price T Physician Procedure Type of Study: Veins: Lower Extremities DVT Study, VENOUS DOPPLER LEG, BILATERAL. Indications for Study:Swelling. Patient Status:Routine. Study Location:Vascular Lab. Technical Quality:Adequate visualization. Risk Factors History of Disease + +----+ + !Diagnosis !Date!Comments ! + +----+ + !History/Risk ! !ERSD, Rt Arm AVF (Clotted 08/02/18), Aortic Stenosis, ! !Factors: ! !HIV, HTN, HLD, DM, H/o Colon Cancer, Carotid Stenosis, ! ! ! !Dry Ulcers on Dorsal Toes, Right Arm Invasive Lines, ! ! ! !Left Subclavian Dialysis Catheter, Started on Heparin ! ! ! !08/02/18 ! + +----+ + Impressions Right Impression 1. There is no deep venous obstruction in the common femoral, profunda femoral, femoral, popliteal, posterior tibial or peroneal veins. 2. There is no superficial venous obstruction in the great saphenous vein. Left Impression 1. There is no deep venous obstruction in the common femoral, profunda femoral, femoral, popliteal, posterior tibial or peroneal veins. 2. There is no superficial venous obstruction in the great saphenous vein. Conclusions Summary Venous duplex imaging and compression of the bilateral lower extremities were performed. The veins were adequately visualized. The bilateral venous systems were patent and compressible with no evidence of thrombus. The venous Doppler waveforms were phasic with respiration . Signature Velocities are measured in cm/s ; Diameters are measured in cm Performing Organization Address City/State/Zipcode Phone Number [facility] Comprehensive metabolic panel (08/10/2018 5:02 AM CDT)Only the most recent of16 resultswithin the time period is included. Protein, Total 6.1 6.0 - 8.3 gm/dL [facility] Albumin 3.1 (L) 3.5 - 5.0 g/dL [facility] Alkaline Phosphatase 131 40 - 150 U/L [facility] Total Bilirubin 2.7 (H) 0.2 - 1.2 mg/dL [facility] Sodium 132 (L) 136 - 145 meq/L [facility] Potassium 4.9 3.5 - 5.1 meq/L [facility] Chloride 95 (L) 98 - 107 meq/L [facility] CO2 25 22 - 29 meq/L [facility] BUN 59 (H) 7 - 21 mg/dL [facility] Creatinine 7.24 (H) 0.57 - 1.25 mg/dL [facility] Glucose 138 (H) 70 - 105 mg/dL [facility] Calcium 9.3 8.4 - 10.2 mg/dL [facility] AST 38 (H) 5 - 34 U/L [facility] ALT 86 (H) 6 - 55 U/L [facility] EGFR 7Comment: ESTIMATED GFR mL/min/1.73 sq m [facility] IS NOT ACCURATE [facility] CREATININE CLEARANCE IN PREDICTING GLOMERULAR FILTRATION RATE. ESTIMATED GFR IS NOT APPLICABLE FOR DIALYSIS PATIENTS. Specimen Blood Narrative Performed At Specimen slightly icteric [facility] Performing Organization Address City/State/Zipcode Phone Number [facility] [address] [place] [address] CENTER ECG 12 lead (08/09/2018 11:38 AM CDT)Only the most recent of9 resultswithin the time period is included. Specimen Narrative Performed At Ventricular Rate 73 BPM GE MUSE Atrial Rate 227 BPM QRS Duration 106 ms Q-T Interval 440 ms QTC Calculation(Bazett) 484 ms P Jbphh 84 degrees R Jbphh -48 degrees T Jbphh 100 degrees Atrial flutter with variable A-V block Left axis deviation Pulmonary disease pattern Minimal voltage criteria for LVH, may be normal variant Nonspecific ST and T wave abnormality Prolonged QT Abnormal ECG When compared with ECG of 08-AUG-2018 16:41, QT has lengthened Confirmed by MD SUYAPA, DEMETRIUS ([id number]) on 08/10/2018 6:03:30 AM Procedure Note Interface, External Ris In - 08/10/2018 6:03 AM CDT Ventricular Rate 73 BPM Atrial Rate 227 BPM QRS Duration 106 ms Q-T Interval 440 ms QTC Calculation(Bazett) 484 ms P Jbphh 84 degrees R Jbphh -48 degrees T Jbphh 100 degrees Atrial flutter with variable A-V block Left axis deviation Pulmonary disease pattern Minimal voltage criteria for LVH, may be normal variant Nonspecific ST and T wave abnormality Prolonged QT Abnormal ECG When compared with ECG of 08-AUG-2018 16:41, QT has lengthened Confirmed by MD DALE YOCHAI ([id number]) on 08/10/2018 6:03:30 AM Performing Organization Address [facility]/Zipcode Phone Number GE MUSE XR chest 1 view portable / bedside (08/08/2018 1:20 PM CDT)Only the most recent of3 resultswithin the time period is included. Specimen Narrative Performed At FINAL REPORT [facility] Portable chest. CLINICAL HISTORY: cough. COMPARISON STUDY: July 31, 2018. FINDINGS: The cardiac silhouette is enlarged. The pulmonary parenchyma demonstrates mild interstitial markings. A left jugular line remains. No pneumothorax is seen. Degenerative changes are noted. IMPRESSION: No significant change. Signed: Daniel Gibbs MD Report Verified Date/Time:08/08/2018 15:38:51 Reading Location: [facility] B1 C013X Ortho Consult Reading Room Procedure Note Interface, External Ris In - 08/08/2018 3:41 PM CDT FINAL REPORT Portable chest. CLINICAL HISTORY: cough. COMPARISON STUDY: July 31, 2018. FINDINGS: The cardiac silhouette is enlarged. The pulmonary parenchyma demonstrates mild interstitial markings. A left jugular line remains. No pneumothorax is seen. Degenerative changes are noted. IMPRESSION: No significant change. Signed: Daniel Gibbs MD Report Verified Date/Time: 08/08/2018 15:38:51 Reading Location: [facility] B1 [id number] Ortho Consult Reading Room Performing Organization Address City/State/Zipcode Phone Number RIS PT/aPTT (08/08/2018 5:50 AM CDT)Only the most recent of4 resultswithin the time period is included. Protime 17.6 (H) 11.9 - 14.2 seconds [facility] INR 1.5 <=5.9 [facility] PTT 69.4 (H) 22.5 - 36.0 seconds [facility] Specimen Blood Narrative Performed At Effective 07/29/2018: PT Reference Range [facility] Change New: 11.9-14.2Previous: 11.7-14.7 RECOMMENDED COUMADIN/WARFARIN INR THERAPY RANGES STANDARD DOSE: 2.0-3.0Includes: PROPHYLAXIS for venous thrombosis, systemic embolization; TREATMENT for venous thrombosis and/or pulmonary embolus. HIGH RISK: Target INR is 2.5-3.5 for patients wiht mechanical heart valves. While on warfarin. While on warfarin. Performing Organization Address City/State/Zipcode Phone Number [address] [address] CENTER Arterial doppler legs bilateral (08/07/2018 5:34 PM CDT) Ejection Fraction [facility] CPACS Specimen Impressions Performed At Right Impression [facility] 1. The common femoral, profunda femoral, superficial femoral, popliteal, posterior tibial and anterior tibial arteries are patent with triphasic/biphasic Doppler waveforms throughout. 2. The PT pressures and DP pressures can not be obtained due to non-compressible arteries. 3. The great toe pressure is absent colorflow and Doppler signals. 4. The 2nd, 3rd, 4th and 5th digits have adequate flow by PPG waveforms. 5. The peroneal artery is not visualized due to edema. Left Impression 1. The common femoral, profunda femoral, superficial femoral, popliteal, posterior tibial and anterior tibial arteries are patent with triphasic/biphasic Doppler waveforms throughout. 2. The PT pressures and DP pressures can not be obtained due to non-compressible arteries. 3. The great toe pressure is absent colorflow and Doppler signals. 4. The 2nd and 3rd digits have adequate flow by PPG waveforms. 5. The 4th and 5th digits are absent flow by PPG. 6. The peroneal artery is not visualized due to edema. Conclusions Summary Arterial pressures and Doppler analysis were performed bilaterally. The arteries were adequately visualized; however, technically difficult due to patients inability to lay still, coughing and edema. Adequate Doppler signals were obtained. Doppler waveforms were triphasic/biphasic. The right and left QUYEN's were not obtained due to non-compressible arteries bilaterally. The toe pressure, TBI and digital waveforms were absent. No evidence of significant arterial occlusive disease was seen in the lower extremities. Signature Velocities are measured in cm/s ; Diameters are measured in cm LE Duplex Measurements Right Left + + + + + + + + + + !Location ! !PSV!EDV !Waveform ! !PSV!EDV !Waveform ! + + + + + + + + + + !Mid Common Femoral ! !115! ! ! !94.3 !! ! + + + + + + + + + + !Prox PFA ! !75.4 !! ! !40.1 !! ! + + + + + + + + + + !Prox SFA ! !66.3 !! ! !81.5 !! ! + + + + + + + + + + !Mid SFA ! !62.7 !! ! !67.4 !! ! + + + + + + + + + + !Dist SFA ! !54.2 !! ! !86.4 !! ! + + + + + + + + + + !Prox Popliteal ! !49.5 !! ! !43.2 !! ! + + + + + + + + + + !Dist Popliteal ! !47.5 !! ! !32.4 !! ! + + + + + + + + + + !Prox CASE LINER ! !77.8 !! ! !33.8 !! ! + + + + + + + + + + !Mid CASE LINER ! !26.9 !! ! !32.9 !! ! + + + + + + + + + + !Dist CASE LINER ! !60.5 !! ! !71.5 !! ! + + + + + + + + + + !Prox MIRLANDE ! !49.9 !! ! !30.2 !! ! + + + + + + + + + + !Mid MIRLANDE ! !52.6 !! ! !72.1 !! ! + + + + + + + + + + !Dist MIRLANDE ! !59.8 !! ! + + + + + + Narrative Performed At LAB - Lower Extremity Arterial Duplex [facility] Demographics Patient NameShira SALINAS of Study 08/07/2018 Age 72 Visit [id number] GenderMale Date of 1945 Referring Elmo Ibarra, Room Number 914 Physician Boardmarker Dio Price, [facility] T Procedure Type of Study: Extremities Arteries: Lower Extremities Arterial Duplex, ARTERIAL DOPPLER LEGS, BILATERAL. Indications for Study:Toe pain and Gangrenous toes . Patient Status:STAT. Study Location:Vascular Lab. Technical Quality:Technically Difficult. Risk Factors History of Disease + +----+ + !Diagnosis!Date!Comments ! 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 !Factors: !!HIV, HTN, HLD, DM, H/o Colon Cancer, Carotid Stenosis, ! ! !!Dry Ulcers on Dorsal Toes, Right Arm Invasive Lines, ! ! !!Left Subclavian Dialysis Catheter, Started on Heparin! ! !!08/02/18 ! + +----+ + Procedure Note Interface, External Ris In - 08/07/2018 9:01 PM CDT PV LAB - Lower Extremity Arterial Duplex Demographics Patient Name CIERRA SALINAS Date of Study 08/07/2018 Age 72 Visit Number [id number] Gender Male Accession Number [id number] Date of 1945 Referring Elmo Ibarra, Room Number 914 Physician Boardmarker Dio Stoddard Interpreting Connie Price, RVT Physician MD Caitlin Craven RVT Procedure Type of Study: Extremities Arteries: Lower Extremities Arterial Duplex, ARTERIAL DOPPLER LEGS, BILATERAL. Indications for Study:Toe pain and Gangrenous toes . Patient Status:STAT. Study Location:Vascular Lab. Technical Quality:Technically Difficult. Risk Factors History of Disease + +----+ + !Diagnosis !Date!Comments ! + +----+ + !History/Risk ! !ERSD, Rt Arm AVF (Clotted 08/02/18), Aortic Stenosis, ! !Factors: ! !HIV, HTN, HLD, DM, H/o Colon Cancer, Carotid Stenosis, ! ! ! !Dry Ulcers on Dorsal Toes, Right Arm Invasive Lines, ! ! ! !Left Subclavian Dialysis Catheter, Started on Heparin ! ! ! !08/02/18 ! + +----+ + Impressions Right Impression 1. The common femoral, profunda femoral, superficial femoral, popliteal, posterior tibial and anterior tibial arteries are patent with triphasic/biphasic Doppler waveforms throughout. 2. The PT pressures and DP pressures can not be obtained due to non-compressible arteries. 3. The great toe pressure is absent colorflow and Doppler signals. 4. The 2nd, 3rd, 4th and 5th digits have adequate flow by PPG waveforms. 5. The peroneal artery is not visualized due to edema. Left Impression 1. The common femoral, profunda femoral, superficial femoral, popliteal, posterior tibial and anterior tibial arteries are patent with triphasic/biphasic Doppler waveforms throughout. 2. The PT pressures and DP pressures can not be obtained due to non-compressible arteries. 3. The great toe pressure is absent colorflow and Doppler signals. 4. The 2nd and 3rd digits have adequate flow by PPG waveforms. 5. The 4th and 5th digits are absent flow by PPG. 6. The peroneal artery is not visualized due to edema. Conclusions Summary Arterial pressures and Doppler analysis were performed bilaterally. The arteries were adequately visualized; however, technically difficult due to patients inability to lay still, coughing and edema. Adequate Doppler signals were obtained. Doppler waveforms were triphasic/biphasic. The right and left QUYEN's were not obtained due to non-compressible arteries bilaterally. The toe pressure, TBI and digital waveforms were absent. No evidence of significant arterial occlusive disease was seen in the lower extremities. Signature Velocities are measured in cm/s ; Diameters are measured in cm LE Duplex Measurements Right Left + + + -------+ + + + +------- + + !Location ! !PSV !EDV !Waveform ! !PSV !EDV !Waveform ! + + + -------+ + + + +------- + + !Mid Common Femoral ! !115 ! ! ! !94.3 ! ! ! + + + -------+ + + + +------- + + !Prox PFA ! !75.4 ! ! ! !40.1 ! ! ! + + + -------+ + + + +------- + + !Prox SFA ! !66.3 ! ! ! !81.5 ! ! ! + + + -------+ + + + +------- + + !Mid SFA ! !62.7 ! ! ! !67.4 ! ! ! + + + -------+ + + + +------- + + !Dist SFA ! !54.2 ! ! ! !86.4 ! ! ! + + + -------+ + + + +------- + + !Prox Popliteal ! !49.5 ! ! ! !43.2 ! ! ! + + + -------+ + + + +------- + + !Dist Popliteal ! !47.5 ! ! ! !32.4 ! ! ! + + + -------+ + + + +------- + + !Prox CASE LINER ! !77.8 ! ! ! !33.8 ! ! ! + + + -------+ + + + +------- + + !Mid CASE LINER ! !26.9 ! ! ! !32.9 ! ! ! + + + -------+ + + + +------- + + !Dist CASE LINER ! !60.5 ! ! ! !71.5 ! ! ! + + + -------+ + + + +------- + + !Prox MIRLANDE ! !49.9 ! ! ! !30.2 ! ! ! + + + -------+ + + + +------- + + !Mid MIRLANDE ! !52.6 ! ! ! !72.1 ! ! ! + + + -------+ + + + +------- + + !Dist MIRLANDE ! !59.8 ! ! ! + + + -------+ + + Performing Organization Address City/State/[facility] Phone Number [facility] HEMODIALYSIS INPATIENT (08/07/2018 1:32 PM CDT) Narrative Performed At Katarzyna Whimtore RN 08/07/20181:34 PM Completed hd x 4 hrs via left IJ upper armAVF. Tolerated hd well with net UF of 3500 ml today. Report given to EASTON Bowen. Lab Results Component Value Date GLUCOSE 103 08/07/2018 CALCIUM 9.2 08/07/2018 NA 138 08/07/2018 K 3.5 08/07/2018 CO2 28 08/07/2018 CL 101 08/07/2018 BUN 22 (H) 08/07/2018 CREATININE 3.20 (H) 08/07/2018 MG 1.8 08/07/2018 PHOS 4.1 08/06/2018 Lab Results Component Value Date WBC 11.2 (H) 08/07/2018 HGB 11.2 (L) 08/07/2018 HCT 34.1 (L) 08/07/2018 MCV 97.2 (H) 08/07/2018 PLT 138 (L) 08/07/2018 Lab Results Component Value Date HEPBSAG Nonreactive 07/27/2018 CTA chest (08/06/2018 4:05 PM CDT) Specimen Narrative Performed At Addendum Begins [facility] REPORT STATUS:A ADDENDUM: Study reviewed by radiology. Agree with the nonvascular findings as described below. 1.4 cm right upper lobe groundglass opacity with ill-defined margins may be followed with CT in 6 months. Signed: Gallo Delgado MD Report Verified Date/Time:08/06/2018 18:58:59 Reading Location: [facility] P048 Angio Body Reading Room Addendum Ends FINAL REPORT CT angiography of the thoracoabdominal aorta and pelvic arteries, 06 August 2018 INDICATION: This is a 72 year old male with a diagnosis of aortic stenosis, presents for preprocedure TAVR assessment. This study is performed in an attempt to avoid an invasive procedure. TECHNIQUE: Spiral acquisition before and during intravenous contrast administration using a Mattie multidetector CT scanner. Images were obtained before and during the dynamic passage of intravenous contrast material.Multi-planar 3-D volume-rendering reconstruction was performed using an independent workstation interactively by the interpreting physician as well as the 3-D specialist for optimal visualisation of the thoracoabdominal aorta, the pelvic arteries as well as its proximal branches. Please refer to the contrast sheet scanned in the EPIC system for the amount and route of contrast given. This exam was performed according to our departmental dose-optimisation programme, which includes automated exposure control, adjustment of the mA and/or kV according to patient size and/or use of iterative reconstruction technique. Dose modulation, iterative reconstruction, and/or weight based adjustment of the mA/kV was utilized to reduce the radiation dose to as low as reasonably achievable. FINDINGS: VASCULAR: The pericardium appears unremarkable. No pericardial effusion is identified. A central venous catheter is seen, with tip in the SVC. In addition, there is also another linear structure identified, in the right brachiocephalic vein, for length of approximately 2.7 cm. It is uncertain if this could represent a fragment of a catheter versus calcification. See arrows The central pulmonary artery is prominent. The cardiac chambers demonstrate normal atrioventricular and ventriculoarterial concordance, and systemic and pulmonary venous return. The left ventricle is normal in size. Mitral annular calcification is identified in the posterior mitral valve annulus. Left and right atrial prominence is identified. Coronary artery origins are normal and coronary artery desiccation is seen in all 3 coronary territories. Patient has a diagnosis of aortic stenosis.The aortic valve is tricuspid. The aortic Agatston score is 2589.The aortic valve area is 69 mm2. The location of aortic valvular calcification can be seen in reformatted data set sent to PACS. The thoracic aorta is overall has minimal calcification identified in the aortic root. Thereafter the ascending thoracic aorta is free of calcification. Mild calcification seen in the transverse arch and descending thoracic aorta. Abdominal aorta has a rim of circumferential calcification identified. No ectasia or aneurysmal dilation is seen.There is no evidence of acute aortic pathology, specifically, there is no dissection, intramural hematoma, or contained rupture. The arch vessel branching pattern is normal and the visualized arch vessels are widely patent proximally. The left vertebral artery arises directly from the transverse arch, a normal variant. The left vertebral artery study larger in size than the right vertebral artery. Minimal calcification is identified at the takeoff of the left subclavian artery, at image 10, it measures 8 to 9 mm in diameter. The right ablation artery and mild calcific lesion identified, and at image 12, it measures 9 mm in diameter. No stenosis is present. There are single left and right renal arteries that are widely patent proximally and nonobstructive calcification is identified. The coeliac axis is widely patent, and the hepatic and splenic arteries also widely patent though diffuse calcification is seen in the splenic artery. The SMA is widely patent. The NURY is patent. Single left and right renal veins are seen draining normally into the IVC. The common iliac, external iliac, common femoral, and the visualized superficial femoral arteries, bilaterally, are widely patent. Scattered calcification is identified in the common iliac level, with no stenosis present. Dimensions that may be helpful for TAVR as follows: The thoracic aorta is overall has minimal calcification identified in the aortic root. Thereafter the ascending thoracic aorta is free of calcification. The major and minor aortic annulus diameter measures 29.0 and 23.2 mm, respectively. The aortic annulus perimeter measured 82 mm and the cross-sectional area measures 521 mm2. The aortic annulus diameter at the traditional LVOT and coronal LVOT measures 23.8 and 23.9 mm, respectively. For reference purpose, per [facility] S3 brochure, recommendation are as follows: CT area between 273 to 345 mm2 (20 mm valve); 338 to 430 mm2 (23 mm valve); 430 to 546 mm2 (26 mm valve); 540 to 683 mm2 (29 mm valve). For reference purpose, per [employer] brochure, recommendation are as follows: CT perimeter between 56.5-62.8 mm (23 mm valve); 62.8-72.3 mm (26 mm valve); 72.3-81.7 mm (29 mm valve); and 81.7-94.2. mm (34 mm valve). Agatston Score is 2589. The aortic valve area is 69 mm2. The sinus of Valsalva height, RCC (diastole): 13.3 mm The sinus of Valsalva height, LCC (diastole): 11.1 mm The sinus of Valsalva diameter, RCC (diastole): 32.3 mm The sinus of Valsalva diameter, LCC (diastole): 33.3 mm The sinus of Valsalva diameter, NCC (diastole): 32.7 mm The sinotubular junction .2 x 29.3 mm. The aortic root angulation measures 45.4 degrees. The angle of delivery is SENEGALESE 5 CAU 19. The minimal and perpendicular abdominal aortic diameter measure 14.9 and 15.2 mm, respectively. There is no evidence of thoracoabdominal aortic aneurysm or stent placement present. The minimum and the perpendicular left common iliac artery measures 8.8 and 11.1 mm, respectively with mildtortuosity and mild focal calcific atherosclerosis present. The minimum and the perpendicular left external iliac artery measures 8.9 and 9.0 mm, respectively with moderatetortuosity and minimalcalcific atherosclerosis present. The minimum and the perpendicular left femoral artery measures 7.9 and 8.5 mm, respectively with notortuosity and mild focalcalcific atherosclerosis present. The takeoff of the left SFA, is at image 603, immediately below the mid level of the left femoral head. The minimum and the perpendicular right common iliac artery measures 7.6 and 10.3 mm, respectively with mildtortuosity and mild calcific atherosclerosis present. The minimum and the perpendicular rightexternal iliac artery measures 7.4 and 7.8 mm, respectively with mild to moderatetortuosity and minimalcalcific atherosclerosis present. The minimum and the perpendicular right femoral artery measures 6.1 and 7.1 mm, respectively with minimal tortuosity and mildcalcific atherosclerosis present. The takeoff of the right SFA, is at image 610, below the mid level of the right femoral head. NON-VASCULAR: The visualised thyroid gland appears unremarkable. The chest wall and mediastinum appear normal. There are number of lymph nodes identified in the mediastinum, the numbers are more than expected. Much of them are small in size. More prominent one has fatty hilum identified, and is also calcified lymph nodes seen in the right hilum overall suggesting prior granulomatous disease. In the lung windows, no obvious endobronchial lesion is seen and no pleural effusion is identified. Some subsegmental atelectatic changes is seen. No pleural effusion is identified. There is patchy groundglass opacity identified in the right upper lobe, at image 55, measure 1.4 cm in diameter. An addendum will be dictated thereafter if follow-up examination is required. Finally, some patchy opacity is identified, at image 67, in the anterior aspect of the right upper lobe. In the abdomen, the liver and spleen appears unremarkable. No abnormal enhancing structure is identified. The gallbladder is contracted. The pancreas appears unremarkable. The adrenal glands are not enlarged. The kidneys are normal in size and shape. No hydronephrosis or perirenal fluid collection is identified.No acute renal pathology is seen. Some cortical scarring is identified bilaterally. Bowel is not well assessed by CT angiography as enteric contrast is not given. No obvious bowel dilation is identified. Small bilateral fat-containing inguinal hernia is seen. The prostate gland is unremarkable. The bladder has contrast present. There is no significant retroperitoneal adenopathy.No free fluid or free air is identified. Mild subcutaneous oedema/anasarca is present. No acute bony pathology is seen; mild degenerative changes is present. CONCLUSIONS: 1. Patient has a diagnosis of aortic stenosis. The aortic valve is tricuspid.The aortic Agatston Score is over 2500and aortic valve area is 69 mm2. Mild mitral annular calcification is seen in the posterior mitral valve annulus. There is calcification identified in at the level of the aortic root and ascending thoracic aorta is free of calcification. Dimensions that may be helpful for TAVR as described above. 2.Coronary artery origins are normal and diffuse artery calcification identified. 3.The central pulmonary artery is mildly prominent. Patchy groundglass opacity is identified in the right upper lobe. Evidence of prior granulomatous disease. 4.Other findings as described above. 5.An addendum will be dictated regarding the non-vascular findings by the Fire Protection Fabricator Radiologist. Signed: Edgar Torres MD Report Verified Date/Time:08/06/2018 17:20:23 Reading Location: [place] [address] Cardiology MRI Procedure Note Interface, External Ris In - 08/06/2018 7:01 PM CDT Addendum Begins REPORT STATUS:A ADDENDUM: Study reviewed by radiology. Agree with the nonvascular findings as described below. 1.4 cm right upper lobe groundglass opacity with ill-defined margins may be followed with CT in 6 months. Signed: Gallo Delgado MD Report Verified Date/Time: 08/06/2018 18:58:59 Reading Location: [place] [id number] Angio Body Reading Room Addendum Ends FINAL REPORT CT angiography of the thoracoabdominal aorta and pelvic arteries, 06 August 2018 INDICATION: This is a 72 year old male with a diagnosis of aortic stenosis, presents for preprocedure TAVR assessment. This study is performed in an attempt to avoid an invasive procedure. TECHNIQUE: Spiral acquisition before and during intravenous contrast administration using a Mattie multidetector CT scanner. Images were obtained before and during the dynamic passage of intravenous contrast material. Multi-planar 3-D volume-rendering reconstruction was performed using an independent workstation interactively by the interpreting physician as well as the 3-D specialist for optimal visualisation of the thoracoabdominal aorta, the pelvic arteries as well as its proximal branches. Please refer to the contrast sheet scanned in the EPIC system for the amount and route of contrast given. This exam was performed according to our departmental dose-optimisation programme, which includes automated exposure control, adjustment of the mA and/or kV according to patient size and/or use of iterative reconstruction technique. Dose modulation, iterative reconstruction, and/or weight based adjustment of the mA/kV was utilized to reduce the radiation dose to as low as reasonably achievable. FINDINGS: VASCULAR: The pericardium appears unremarkable. No pericardial effusion is identified. A central venous catheter is seen, with tip in the SVC. In addition, there is also another linear structure identified, in the right brachiocephalic vein, for length of approximately 2.7 cm. It is uncertain if this could represent a fragment of a catheter versus calcification. See arrows The central pulmonary artery is prominent. The cardiac chambers demonstrate normal atrioventricular and ventriculoarterial concordance, and systemic and pulmonary venous return. The left ventricle is normal in size. Mitral annular calcification is identified in the posterior mitral valve annulus. Left and right atrial prominence is identified. Coronary artery origins are normal and coronary artery desiccation is seen in all 3 coronary territories. Patient has a diagnosis of aortic stenosis. The aortic valve is tricuspid. The aortic Agatston score is 2589. The aortic valve area is 69 mm2. The location of aortic valvular calcification can be seen in reformatted data set sent to PACS. The thoracic aorta is overall has minimal calcification identified in the aortic root. Thereafter the ascending thoracic aorta is free of calcification. Mild calcification seen in the transverse arch and descending thoracic aorta. Abdominal aorta has a rim of circumferential calcification identified. No ectasia or aneurysmal dilation is seen. There is no evidence of acute aortic pathology, specifically, there is no dissection, intramural hematoma, or contained rupture. The arch vessel branching pattern is normal and the visualized arch vessels are widely patent proximally. The left vertebral artery arises directly from the transverse arch, a normal variant. The left vertebral artery study larger in size than the right vertebral artery. Minimal calcification is identified at the takeoff of the left subclavian artery, at image 10, it measures 8 to 9 mm in diameter. The right ablation artery and mild calcific lesion identified, and at image 12, it measures 9 mm in diameter. No stenosis is present. There are single left and right renal arteries that are widely patent proximally and nonobstructive calcification is identified. The coeliac axis is widely patent, and the hepatic and splenic arteries also widely patent though diffuse calcification is seen in the splenic artery. The SMA is widely patent. The NURY is patent. Single left and right renal veins are seen draining normally into the IVC. The common iliac, external iliac, common femoral, and the visualized superficial femoral arteries, bilaterally, are widely patent. Scattered calcification is identified in the common iliac level, with no stenosis present. Dimensions that may be helpful for TAVR as follows: The thoracic aorta is overall has minimal calcification identified in the aortic root. Thereafter the ascending thoracic aorta is free of calcification. The major and minor aortic annulus diameter measures 29.0 and 23.2 mm, respectively. The aortic annulus perimeter measured 82 mm and the cross-sectional area measures 521 mm2. The aortic annulus diameter at the traditional LVOT and coronal LVOT measures 23.8 and 23.9 mm, respectively. For reference purpose, per [facility] S3 brochure, recommendation are as follows: CT area between 273 to 345 mm2 (20 mm valve); 338 to 430 mm2 (23 mm valve); 430 to 546 mm2 (26 mm valve); 540 to 683 mm2 (29 mm valve). For reference purpose, per [employer] brochure, recommendation are as follows: CT perimeter between 56.5-62.8 mm (23 mm valve); 62.8-72.3 mm (26 mm valve); 72.3-81.7 mm (29 mm valve); and 81.7-94.2. mm (34 mm valve). Agatston Score is 2589. The aortic valve area is 69 mm2. The sinus of Valsalva height, RCC (diastole): 13.3 mm The sinus of Valsalva height, LCC (diastole): 11.1 mm The sinus of Valsalva diameter, RCC (diastole): 32.3 mm The sinus of Valsalva diameter, LCC (diastole): 33.3 mm The sinus of Valsalva diameter, NCC (diastole): 32.7 mm The sinotubular junction measures 29.2 x 29.3 mm. The aortic root angulation measures 45.4 degrees. The angle of delivery is [place] 5 CAU 19. The minimal and perpendicular abdominal aortic diameter measure 14.9 and 15.2 mm, respectively. There is no evidence of thoracoabdominal aortic aneurysm or stent placement present. The minimum and the perpendicular left common iliac artery measures 8.8 and 11.1 mm, respectively with mild tortuosity and mild focal calcific atherosclerosis present. The minimum and the perpendicular left external iliac artery measures 8.9 and 9.0 mm, respectively with moderate tortuosity and minimal calcific atherosclerosis present. The minimum and the perpendicular left femoral artery measures 7.9 and 8.5 mm, respectively with no tortuosity and mild focal calcific atherosclerosis present. The takeoff of the left SFA, is at image 603, immediately below the mid level of the left femoral head. The minimum and the perpendicular right common iliac artery measures 7.6 and 10.3 mm, respectively with mild tortuosity and mild calcific atherosclerosis present. The minimum and the perpendicular right external iliac artery measures 7.4 and 7.8 mm, respectively with mild to moderate tortuosity and minimal calcific atherosclerosis present. The minimum and the perpendicular right femoral artery measures 6.1 and 7.1 mm, respectively with minimal tortuosity and mild calcific atherosclerosis present. The takeoff of the right SFA, is at image 610, below the mid level of the right femoral head. NON-VASCULAR: The visualised thyroid gland appears unremarkable. The chest wall and mediastinum appear normal. There are number of lymph nodes identified in the mediastinum, the numbers are more than expected. Much of them are small in size. More prominent one has fatty hilum identified, and is also calcified lymph nodes seen in the right hilum overall suggesting prior granulomatous disease. In the lung windows, no obvious endobronchial lesion is seen and no pleural effusion is identified. Some subsegmental atelectatic changes is seen. No pleural effusion is identified. There is patchy groundglass opacity identified in the right upper lobe, at image 55, measure 1.4 cm in diameter. An addendum will be dictated thereafter if follow-up examination is required. Finally, some patchy opacity is identified, at image 67, in the anterior aspect of the right upper lobe. In the abdomen, the liver and spleen appears unremarkable. No abnormal enhancing structure is identified. The gallbladder is contracted. The pancreas appears unremarkable. The adrenal glands are not enlarged. The kidneys are normal in size and shape. No hydronephrosis or perirenal fluid collection is identified. No acute renal pathology is seen. Some cortical scarring is identified bilaterally. Bowel is not well assessed by CT angiography as enteric contrast is not given. No obvious bowel dilation is identified. Small bilateral fat-containing inguinal hernia is seen. The prostate gland is unremarkable. The bladder has contrast present. There is no significant retroperitoneal adenopathy. No free fluid or free air is identified. Mild subcutaneous oedema/anasarca is present. No acute bony pathology is seen; mild degenerative changes is present. CONCLUSIONS: 1. Patient has a diagnosis of aortic stenosis. The aortic valve is tricuspid. The aortic Agatston Score is over 2500 and aortic valve area is 69 mm2. Mild mitral annular calcification is seen in the posterior mitral valve annulus. There is calcification identified in at the level of the aortic root and ascending thoracic aorta is free of calcification. Dimensions that may be helpful for TAVR as described above. 2. Coronary artery origins are normal and diffuse artery calcification identified. 3. The central pulmonary artery is mildly prominent. Patchy groundglass opacity is identified in the right upper lobe. Evidence of prior granulomatous disease. 4. Other findings as described above. 5. An addendum will be dictated regarding the non-vascular findings by the [employer] Radiologist. Signed: Edgar Torres MD Report Verified Date/Time: 08/06/2018 17:20:23 Reading Location: [place] [address] Cardiology MRI Performing Organization Address City/State/Zipcode Phone Number [facility] CTA abdomen & pelvis (08/06/2018 4:05 PM CDT) Specimen Narrative Performed At Addendum Begins [facility] REPORT STATUS:A ADDENDUM: Study reviewed by radiology. Agree with the nonvascular findings as described below. 1.4 cm right upper lobe groundglass opacity with ill-defined margins may be followed with CT in 6 months. Signed: Gallo Delgado MD Report Verified Date/Time:08/06/2018 18:58:59 Reading Location: [facility] [address] Angio Body Reading Room Addendum Ends FINAL REPORT CT angiography of the thoracoabdominal aorta and pelvic arteries, 06 August 2018 INDICATION: This is a 72 year old male with a diagnosis of aortic stenosis, presents for preprocedure TAVR assessment. This study is performed in an attempt to avoid an invasive procedure. TECHNIQUE: Spiral acquisition before and during intravenous contrast administration using a Mattie multidetector CT scanner. Images were obtained before and during the dynamic passage of intravenous contrast material.Multi-planar 3-D volume-rendering reconstruction was performed using an independent workstation interactively by the interpreting physician as well as the 3-D specialist for optimal visualisation of the thoracoabdominal aorta, the pelvic arteries as well as its proximal branches. Please refer to the contrast sheet scanned in the EPIC system for the amount and route of contrast given. This exam was performed according to our departmental dose-optimisation programme, which includes automated exposure control, adjustment of the mA and/or kV according to patient size and/or use of iterative reconstruction technique. Dose modulation, iterative reconstruction, and/or weight based adjustment of the mA/kV was utilized to reduce the radiation dose to as low as reasonably achievable. FINDINGS: VASCULAR: The pericardium appears unremarkable. No pericardial effusion is identified. A central venous catheter is seen, with tip in the SVC. In addition, there is also another linear structure identified, in the right brachiocephalic vein, for length of approximately 2.7 cm. It is uncertain if this could represent a fragment of a catheter versus calcification. See arrows The central pulmonary artery is prominent. The cardiac chambers demonstrate normal atrioventricular and ventriculoarterial concordance, and systemic and pulmonary venous return. The left ventricle is normal in size. Mitral annular calcification is identified in the posterior mitral valve annulus. Left and right atrial prominence is identified. Coronary artery origins are normal and coronary artery desiccation is seen in all 3 coronary territories. Patient has a diagnosis of aortic stenosis.The aortic valve is tricuspid. The aortic Agatston score is 2589.The aortic valve area is 69 mm2. The location of aortic valvular calcification can be seen in reformatted data set sent to PACS. The thoracic aorta is overall has minimal calcification identified in the aortic root. Thereafter the ascending thoracic aorta is free of calcification. Mild calcification seen in the transverse arch and descending thoracic aorta. Abdominal aorta has a rim of circumferential calcification identified. No ectasia or aneurysmal dilation is seen.There is no evidence of acute aortic pathology, specifically, there is no dissection, intramural hematoma, or contained rupture. The arch vessel branching pattern is normal and the visualized arch vessels are widely patent proximally. The left vertebral artery arises directly from the transverse arch, a normal variant. The left vertebral artery study larger in size than the right vertebral artery. Minimal calcification is identified at the takeoff of the left subclavian artery, at image 10, it measures 8 to 9 mm in diameter. The right ablation artery and mild calcific lesion identified, and at image 12, it measures 9 mm in diameter. No stenosis is present. There are single left and right renal arteries that are widely patent proximally and nonobstructive calcification is identified. The coeliac axis is widely patent, and the hepatic and splenic arteries also widely patent though diffuse calcification is seen in the splenic artery. The SMA is widely patent. The NURY is patent. Single left and right renal veins are seen draining normally into the IVC. The common iliac, external iliac, common femoral, and the visualized superficial femoral arteries, bilaterally, are widely patent. Scattered calcification is identified in the common iliac level, with no stenosis present. Dimensions that may be helpful for TAVR as follows: The thoracic aorta is overall has minimal calcification identified in the aortic root. Thereafter the ascending thoracic aorta is free of calcification. The major and minor aortic annulus diameter measures 29.0 and 23.2 mm, respectively. The aortic annulus perimeter measured 82 mm and the cross-sectional area measures 521 mm2. The aortic annulus diameter at the traditional LVOT and coronal LVOT measures 23.8 and 23.9 mm, respectively. For reference purpose, per [facility] S3 brochure, recommendation are as follows: CT area between 273 to 345 mm2 (20 mm valve); 338 to 430 mm2 (23 mm valve); 430 to 546 mm2 (26 mm valve); 540 to 683 mm2 (29 mm valve). For reference purpose, per [employer] R [place], recommendation are as follows: CT perimeter between 56.5-62.8 mm (23 mm valve); 62.8-72.3 mm (26 mm valve); 72.3-81.7 mm (29 mm valve); and 81.7-94.2. mm (34 mm valve). Agatston Score is 2589. The aortic valve area is 69 mm2. The sinus of Valsalva height, RCC (diastole): 13.3 mm The sinus of Valsalva height, LCC (diastole): 11.1 mm The sinus of Valsalva diameter, RCC (diastole): 32.3 mm The sinus of Valsalva diameter, LCC (diastole): 33.3 mm The sinus of Valsalva diameter, NCC (diastole): 32.7 mm The sinotubular junction [id number] x 29.3 mm. The aortic root angulation measures 45.4 degrees. The angle of delivery is [place] 5 CAU 19. The minimal and perpendicular abdominal aortic diameter measure 14.9 and 15.2 mm, respectively. There is no evidence of thoracoabdominal aortic aneurysm or stent placement present. The minimum and the perpendicular left common iliac artery measures 8.8 and 11.1 mm, respectively with mildtortuosity and mild focal calcific atherosclerosis present. The minimum and the perpendicular left external iliac artery measures 8.9 and 9.0 mm, respectively with moderatetortuosity and minimalcalcific atherosclerosis present. The minimum and the perpendicular left femoral artery measures 7.9 and 8.5 mm, respectively with notortuosity and mild focalcalcific atherosclerosis present. The takeoff of the left SFA, is at image 603, immediately below the mid level of the left femoral head. The minimum and the perpendicular right common iliac artery measures 7.6 and 10.3 mm, respectively with mildtortuosity and mild calcific atherosclerosis present. The minimum and the perpendicular rightexternal iliac artery measures 7.4 and 7.8 mm, respectively with mild to moderatetortuosity and minimalcalcific atherosclerosis present. The minimum and the perpendicular right femoral artery measures 6.1 and 7.1 mm, respectively with minimal tortuosity and mildcalcific atherosclerosis present. The takeoff of the right SFA, is at image 610, below the mid level of the right femoral head. NON-VASCULAR: The visualised thyroid gland appears unremarkable. The chest wall and mediastinum appear normal. There are number of lymph nodes identified in the mediastinum, the numbers are more than expected. Much of them are small in size. More prominent one has fatty hilum identified, and is also calcified lymph nodes seen in the right hilum overall suggesting prior granulomatous disease. In the lung windows, no obvious endobronchial lesion is seen and no pleural effusion is identified. Some subsegmental atelectatic changes is seen. No pleural effusion is identified. There is patchy groundglass opacity identified in the right upper lobe, at image 55, measure 1.4 cm in diameter. An addendum will be dictated thereafter if follow-up examination is required. Finally, some patchy opacity is identified, at image 67, in the anterior aspect of the right upper lobe. In the abdomen, the liver and spleen appears unremarkable. No abnormal enhancing structure is identified. The gallbladder is contracted. The pancreas appears unremarkable. The adrenal glands are not enlarged. The kidneys are normal in size and shape. No hydronephrosis or perirenal fluid collection is identified.No acute renal pathology is seen. Some cortical scarring is identified bilaterally. Bowel is not well assessed by CT angiography as enteric contrast is not given. No obvious bowel dilation is identified. Small bilateral fat-containing inguinal hernia is seen. The prostate gland is unremarkable. The bladder has contrast present. There is no significant retroperitoneal adenopathy.No free fluid or free air is identified. Mild subcutaneous oedema/anasarca is present. No acute bony pathology is seen; mild degenerative changes is present. CONCLUSIONS: 1. Patient has a diagnosis of aortic stenosis. The aortic valve is tricuspid.The aortic Agatston Score is over 2500and aortic valve area is 69 mm2. Mild mitral annular calcification is seen in the posterior mitral valve annulus. There is calcification identified in at the level of the aortic root and ascending thoracic aorta is free of calcification. Dimensions that may be helpful for TAVR as described above. 2.Coronary artery origins are normal and diffuse artery calcification identified. 3.The central pulmonary artery is mildly prominent. Patchy groundglass opacity is identified in the right upper lobe. Evidence of prior granulomatous disease. 4.Other findings as described above. 5.An addendum will be dictated regarding the non-vascular findings by the [employer] Radiologist. Signed: Edgar Torres MD Report Verified Date/Time:08/06/2018 17:20:23 Reading Location: [place] [address] Cardiology MRI Procedure Note Interface, External Ris In - 08/06/2018 7:01 PM CDT Addendum Begins REPORT STATUS:A ADDENDUM: Study reviewed by radiology. Agree with the nonvascular findings as described below. 1.4 cm right upper lobe groundglass opacity with ill-defined margins may be followed with CT in 6 months. Signed: Gallo Delgado MD Report Verified Date/Time: 08/06/2018 18:58:59 Reading Location: [place] [address] Angio Body Reading Room Addendum Ends FINAL REPORT CT angiography of the thoracoabdominal aorta and pelvic arteries, 06 August 2018 INDICATION: This is a 72 year old male with a diagnosis of aortic stenosis, presents for preprocedure TAVR assessment. This study is performed in an attempt to avoid an invasive procedure. TECHNIQUE: Spiral acquisition before and during intravenous contrast administration using a Mattie multidetector CT scanner. Images were obtained before and during the dynamic passage of intravenous contrast material. Multi-planar 3-D volume-rendering reconstruction was performed using an independent workstation interactively by the interpreting physician as well as the 3-D specialist for optimal visualisation of the thoracoabdominal aorta, the pelvic arteries as well as its proximal branches. Please refer to the contrast sheet scanned in the EPIC system for the amount and route of contrast given. This exam was performed according to our departmental dose-optimisation programme, which includes automated exposure control, adjustment of the mA and/or kV according to patient size and/or use of iterative reconstruction technique. Dose modulation, iterative reconstruction, and/or weight based adjustment of the mA/kV was utilized to reduce the radiation dose to as low as reasonably achievable. FINDINGS: VASCULAR: The pericardium appears unremarkable. No pericardial effusion is identified. A central venous catheter is seen, with tip in the SVC. In addition, there is also another linear structure identified, in the right brachiocephalic vein, for length of approximately 2.7 cm. It is uncertain if this could represent a fragment of a catheter versus calcification. See arrows The central pulmonary artery is prominent. The cardiac chambers demonstrate normal atrioventricular and ventriculoarterial concordance, and systemic and pulmonary venous return. The left ventricle is normal in size. Mitral annular calcification is identified in the posterior mitral valve annulus. Left and right atrial prominence is identified. Coronary artery origins are normal and coronary artery desiccation is seen in all 3 coronary territories. Patient has a diagnosis of aortic stenosis. The aortic valve is tricuspid. The aortic Agatston score is 2589. The aortic valve area is 69 mm2. The location of aortic valvular calcification can be seen in reformatted data set sent to PACS. The thoracic aorta is overall has minimal calcification identified in the aortic root. Thereafter the ascending thoracic aorta is free of calcification. Mild calcification seen in the transverse arch and descending thoracic aorta. Abdominal aorta has a rim of circumferential calcification identified. No ectasia or aneurysmal dilation is seen. There is no evidence of acute aortic pathology, specifically, there is no dissection, intramural hematoma, or contained rupture. The arch vessel branching pattern is normal and the visualized arch vessels are widely patent proximally. The left vertebral artery arises directly from the transverse arch, a normal variant. The left vertebral artery study larger in size than the right vertebral artery. Minimal calcification is identified at the takeoff of the left subclavian artery, at image 10, it measures 8 to 9 mm in diameter. The right ablation artery and mild calcific lesion identified, and at image 12, it measures 9 mm in diameter. No stenosis is present. There are single left and right renal arteries that are widely patent proximally and nonobstructive calcification is identified. The coeliac axis is widely patent, and the hepatic and splenic arteries also widely patent though diffuse calcification is seen in the splenic artery. The SMA is widely patent. The NURY is patent. Single left and right renal veins are seen draining normally into the IVC. The common iliac, external iliac, common femoral, and the visualized superficial femoral arteries, bilaterally, are widely patent. Scattered calcification is identified in the common iliac level, with no stenosis present. Dimensions that may be helpful for TAVR as follows: The thoracic aorta is overall has minimal calcification identified in the aortic root. Thereafter the ascending thoracic aorta is free of calcification. The major and minor aortic annulus diameter measures 29.0 and 23.2 mm, respectively. The aortic annulus perimeter measured 82 mm and the cross-sectional area measures 521 mm2. The aortic annulus diameter at the traditional LVOT and coronal LVOT measures 23.8 and 23.9 mm, respectively. For reference purpose, per [facility] S3 brochure, recommendation are as follows: CT area between 273 to 345 mm2 (20 mm valve); 338 to 430 mm2 (23 mm valve); 430 to 546 mm2 (26 mm valve); 540 to 683 mm2 (29 mm valve). For reference purpose, per [employer] R brochure, recommendation are as follows: CT perimeter between 56.5-62.8 mm (23 mm valve); 62.8-72.3 mm (26 mm valve); 72.3-81.7 mm (29 mm valve); and 81.7-94.2. mm (34 mm valve). Agatston Score is 2589. The aortic valve area is 69 mm2. The sinus of Valsalva height, RCC (diastole): 13.3 mm The sinus of Valsalva height, LCC (diastole): 11.1 mm The sinus of Valsalva diameter, RCC (diastole): 32.3 mm The sinus of Valsalva diameter, LCC (diastole): 33.3 mm The sinus of Valsalva diameter, NCC (diastole): 32.7 mm The sinotubular junction measures 29.2 x 29.3 mm. The aortic root angulation measures 45.4 degrees. The angle of delivery is SENEGAL[place] 5 CAU 19. The minimal and perpendicular abdominal aortic diameter measure 14.9 and 15.2 mm, respectively. There is no evidence of thoracoabdominal aortic aneurysm or stent placement present. The minimum and the perpendicular left common iliac artery measures 8.8 and 11.1 mm, respectively with mild tortuosity and mild focal calcific atherosclerosis present. The minimum and the perpendicular left external iliac artery measures 8.9 and 9.0 mm, respectively with moderate tortuosity and minimal calcific atherosclerosis present. The minimum and the perpendicular left femoral artery measures 7.9 and 8.5 mm, respectively with no tortuosity and mild focal calcific atherosclerosis present. The takeoff of the left SFA, is at image 603, immediately below the mid level of the left femoral head. The minimum and the perpendicular right common iliac artery measures 7.6 and 10.3 mm, respectively with mild tortuosity and mild calcific atherosclerosis present. The minimum and the perpendicular right external iliac artery measures 7.4 and 7.8 mm, respectively with mild to moderate tortuosity and minimal calcific atherosclerosis present. The minimum and the perpendicular right femoral artery measures 6.1 and 7.1 mm, respectively with minimal tortuosity and mild calcific atherosclerosis present. The takeoff of the right SFA, is at image 610, below the mid level of the right femoral head. NON-VASCULAR: The visualised thyroid gland appears unremarkable. The chest wall and mediastinum appear normal. There are number of lymph nodes identified in the mediastinum, the numbers are more than expected. Much of them are small in size. More prominent one has fatty hilum identified, and is also calcified lymph nodes seen in the right hilum overall suggesting prior granulomatous disease. In the lung windows, no obvious endobronchial lesion is seen and no pleural effusion is identified. Some subsegmental atelectatic changes is seen. No pleural effusion is identified. There is patchy groundglass opacity identified in the right upper lobe, at image 55, measure 1.4 cm in diameter. An addendum will be dictated thereafter if follow-up examination is required. Finally, some patchy opacity is identified, at image 67, in the anterior aspect of the right upper lobe. In the abdomen, the liver and spleen appears unremarkable. No abnormal enhancing structure is identified. The gallbladder is contracted. The pancreas appears unremarkable. The adrenal glands are not enlarged. The kidneys are normal in size and shape. No hydronephrosis or perirenal fluid collection is identified. No acute renal pathology is seen. Some cortical scarring is identified bilaterally. Bowel is not well assessed by CT angiography as enteric contrast is not given. No obvious bowel dilation is identified. Small bilateral fat-containing inguinal hernia is seen. The prostate gland is unremarkable. The bladder has contrast present. There is no significant retroperitoneal adenopathy. No free fluid or free air is identified. Mild subcutaneous oedema/anasarca is present. No acute bony pathology is seen; mild degenerative changes is present. CONCLUSIONS: 1. Patient has a diagnosis of aortic stenosis. The aortic valve is tricuspid. The aortic Agatston Score is over 2500 and aortic valve area is 69 mm2. Mild mitral annular calcification is seen in the posterior mitral valve annulus. There is calcification identified in at the level of the aortic root and ascending thoracic aorta is free of calcification. Dimensions that may be helpful for TAVR as described above. 2. Coronary artery origins are normal and diffuse artery calcification identified. 3. The central pulmonary artery is mildly prominent. Patchy groundglass opacity is identified in the right upper lobe. Evidence of prior granulomatous disease. 4. Other findings as described above. 5. An addendum will be dictated regarding the non-vascular findings by the Fire Protection Fabricator Radiologist. Signed: Edgar Torres MD Report Verified Date/Time: 08/06/2018 17:20:23 Reading Location: [place] [address] Cardiology MRI Performing Organization Address City/State/Zipcode Phone Number [facility] VASCULAR DIAGRAM -SCAN (08/05/2018 3:21 PM CDT) Narrative Performed At IR AV Shunt/Fistulagram (08/05/2018 11:55 AM CDT) Specimen Narrative Performed At FINAL REPORT [facility] Left upper extremity AV fistula declot. History: Thrombosed left upper extremity AV fistula. Modality: Ultrasound and fluoroscopy Sedation: None Anesthesia:Two percent Lidocaine without epinephrine. Approach:Left upper extremity AV fistula Estimated blood loss:< 5 cc. Specimen: None. asphalt distributor operator: Jean-Claude Jones MD. Welder Production Line Arc: MD Deshaun. Fluoroscopy Time: 12.6 min. Reference Air Kerma (Ka, r): 50.1 mGy. Technique: Informed written consent was obtained. Discussion of risks, benefits, and alternatives were made with the patient. The patient expressed understanding and agreed to proceed.A universal timeout was performed prior to starting the procedure.All elements maximal sterile barrier technique was utilized for this procedure, including utilization of sterile scrub solution for skin prep, a large sterile sheet to cover the areas of the patient that were not prepped, and hand hygiene, mask, head covering, and sterile gown for performing radiologist and scrub technologist. Ultrasound of the patient's left upper extremity AV fistula demonstrated that it was thrombosed and noncompressible. This patient's skin was locally anesthetized with lidocaine 1%. 1st a 21-gauge micropuncture needle was used to access the venous outflow of the fistula and an antegrade fashion away from the arterial anastomosis. A micropuncture sheath was placed. The access was scaled up in a standard fashion and a Glidewire and Berenstein catheter were advanced centrally past a cephalic arch stent. The wire was removed and a DSA was performed which demonstrated that the brachiocephalic and SVC are patent. A pullback venogram was then performed through the cephalic stent which demonstrated that the stent was stenosed and there was thrombus throughout the cephalic arch stent. A wire was advanced across the stent and the Berenstein catheter was removed. An 8 x 4 cm [place] balloon was then used to macerate the thrombus within the stent and dilate the in-stent stenosis. The thrombus was then cleared with a Trerotola device. Repeat angioplasty through the cephalic arch stent demonstrated improved flow post angioplasty and mechanical thrombectomy. Access was then obtained to the fistula and an antegrade fashion using a similar technique above and a Berenstein catheter and Glidewire were advanced into the brachial artery. A 6 mm x 2 cm balloon was then used to pull the arterial plug. Additional thrombus was macerated with the Trerotola device. Flow was then restored to the fistula. The access sheaths were then removed and hemostasis was achieved with 2-0 chromic pursestring sutures. The patient tolerated the procedure well. Impression: Technically successful uncomplicated left upper extremity AV fistula declotting including balloon angioplasty and mechanical thrombectomy. Signed: Jean-Claude Jones MD Report Verified Date/Time:08/07/2018 16:46:54 Reading Location: [place] [address] Angio Body Reading Room Procedure Note Interface, External Ris In - 08/07/2018 4:49 PM CDT FINAL REPORT Left upper extremity AV fistula declot. History: Thrombosed left upper extremity AV fistula. Modality: Ultrasound and fluoroscopy Sedation: None Anesthesia: Two percent Lidocaine without epinephrine. Approach: Left upper extremity AV fistula Estimated blood loss: < 5 cc. Specimen: None. asphalt distributor operator: Jean-Claude Jones MD. Welder Production Line Arc: MD Deshaun. Fluoroscopy Time: 12.6 min. Reference Air Kerma (Ka, r): 50.1 mGy. Technique: Informed written consent was obtained. Discussion of risks, benefits, and alternatives were made with the patient. The patient expressed understanding and agreed to proceed. A universal timeout was performed prior to starting the procedure. All elements maximal sterile barrier technique was utilized for this procedure, including utilization of sterile scrub solution for skin prep, a large sterile sheet to cover the areas of the patient that were not prepped, and hand hygiene, mask, head covering, and sterile gown for performing radiologist and scrub technologist. Ultrasound of the patient's left upper extremity AV fistula demonstrated that it was thrombosed and noncompressible. This patient's skin was locally anesthetized with lidocaine 1%. 1st a 21-gauge micropuncture needle was used to access the venous outflow of the fistula and an antegrade fashion away from the arterial anastomosis. A micropuncture sheath was placed. The access was scaled up in a standard fashion and a Glidewire and Berenstein catheter were advanced centrally past a cephalic arch stent. The wire was removed and a DSA was performed which demonstrated that the brachiocephalic and SVC are patent. A pullback venogram was then performed through the cephalic stent which demonstrated that the stent was stenosed and there was thrombus throughout the cephalic arch stent. A wire was advanced across the stent and the Berenstein catheter was removed. An 8 x 4 cm [place] balloon was then used to macerate the thrombus within the stent and dilate the in-stent stenosis. The thrombus was then cleared with a Trerotola device. Repeat angioplasty through the cephalic arch stent demonstrated improved flow post angioplasty and mechanical thrombectomy. Access was then obtained to the fistula and an antegrade fashion using a similar technique above and a Berenstein catheter and Glidewire were advanced into the brachial artery. A 6 mm x 2 cm balloon was then used to pull the arterial plug. Additional thrombus was macerated with the Trerotola device. Flow was then restored to the fistula. The access sheaths were then removed and hemostasis was achieved with 2-0 chromic pursestring sutures. The patient tolerated the procedure well. Impression: Technically successful uncomplicated left upper extremity AV fistula declotting including balloon angioplasty and mechanical thrombectomy. Signed: Jean-Claude Jones MD Report Verified Date/Time: 08/07/2018 16:46:54 Reading Location: [place] [id number] Angio Body Reading Room Performing Organization Address City/[facility]/Zipcode Phone Number GE RIS Peripheral Blood Smear - Hold only (08/04/2018 1:35 PM CDT) Peripheral Smear Save SAVE [facility] Specimen Blood Performing Organization Address City/State/Zipcode Phone Number [facility] [address] [place] [address] CENTER Hexagonal Phospholipid (08/03/2018 1:51 PM CDT) Hexagonal Phospholipid Positive [facility] Specimen Blood Performing Organization Address [facility] Phone Number [address] [address] [place] Lupus Anticoagulant Screen with Reflex To Confirmatory (08/03/2018 1:51 PM CDT) DRVV Screen Ratio 1.21 (H) <1.20 [facility] DRVV Confirm Ratio 1.09 [facility] DRVV Normalized Ratio 1.11 <1.20 [facility] Interpretations 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 Suggest repeat testing in 12 weeks and when patient not receiving anticoagulant therapy. Protime 14.9 (H) 11.9 - 14.2 [facility] INR 1.2 <=5.9 [facility] PTT 44.9 (H) 22.5 - 36.0 [facility] PTT-LA 55.1 (H) 32.0 - 41.8 [facility] Pathologist: Maynor Hayward M.D. [facility] (electonic signature) [facility] Specimen Blood Performing Organization Address [facility]/Zipcode Phone Number [facility] [address] [place] [address] CENTER Vitamin B12 and Folate (08/03/2018 1:51 PM CDT) Vitamin B12 >2000 (H) 213 - 816 pg/mL [facility] Folate 7.7 >=7.0 ng/mL [facility] Specimen Blood Performing Organization Address City/[facility] Phone Number [facility] [address] [place] [address] CENTER Serotonin release assay (08/03/2018 1:51 PM CDT) Scan Result BLOOD [facility] Low Dose 0.1 IU/mL 0 % BLOOD [facility] High Dose 100 IU/mL 0 % BLOOD [facility] SYLVESTER Result Negative [facility] Specimen Blood Narrative Performed At Performing Organization Address [facility] Phone Number [facility] [address] [place] [phone] Iron, TIBC, % sat. (without ferritin) (08/03/2018 1:51 PM CDT) Iron 29.0 (L) 40.0 - 160.0 ug/dL [facility] TIBC 186 (L) 250 - 450 ug/dL [facility] Iron % Saturation 16 (L) 20 - 55 % [facility] Specimen Blood Performing Organization Address [facility] Phone Number [address] [address] [phone] CENTER 1:1 MIXING STUDY, NON-INCUBATED (08/03/2018 1:51 PM CDT) Protime 14.9 (H) 11.9 - 14.2 seconds [facility] PTT 44.9 (H) 22.5 - 36.0 seconds [facility] PT 03/03 Mix 13.6 11.7 - 14.7 SECS [facility] PTT 03/03 Mix 34.8 22.5 - 36.0 SECS [facility] Specimen Blood Performing Organization Address City/[facility] Phone Number [address] [address] [place] Heparin antibody (08/03/2018 1:51 PM CDT) Heparin Ab Positive-See Serotonin Negative [facility] Release Assay for MEDICAL CENTER Confirmation (A) Heparin Antibody Optical 0.516 (H) <0.400 [facility] Density [facility] 4T Total Score 6 [facility] Specimen Blood Narrative Performed At Probability of HIT based on scoring [facility] system: 6-8=High probability; 4-5=intermediate probability; 0-3=low probability Performing Organization Address [facility] Phone Number [address] [address] [phone] [place] Cardiolipin Antibodies, IgG and IgM (08/03/2018 1:51 PM CDT) Anticardiolipin IgG <1.6 <20.0 GPL [facility] Anticardiolipin IgM 0.6 <20.0 MPL [facility] Specimen Blood Narrative Performed At Anticardiolipin IgG Result Interpretation: [facility] <20.0 GPL Normal >/=20.0 GPL Positive Anticardiolipin IgM Result Interpretation: <20.0 MPL Normal >/=20.0 MPL Positive Performing Organization Address [facility] Phone Number [address] [address] [phone] [place] Thrombin time (08/03/2018 1:51 PM CDT) Thrombin Time 23.0 (H) 13.8 - 20.0 secs [facility] Specimen Blood Performing Organization Address [facility] Phone Number [address] [address] [phone] [place] Protein electrophoresis, serum (08/03/2018 1:51 PM CDT) Albumin Fraction 2.8 (L) 3.5 - 5.5 g/dL [facility] Alpha 1 Fraction 0.4 0.2 - 0.4 g/dL [facility] Alpha 2 Fraction 0.6 0.5 - 0.9 g/dL [facility] Beta Fraction 0.4 (L) 0.6 - 1.1 g/dL [facility] Gamma Globulin Fraction 1.4 0.7 - 1.7 g/dL [facility] Interpretation Albumin decreased. [facility] Alpha globulin-1 [facility] percentage increased. This suggests an acute phase response. Pathologist: Maynor Hayward M.D. [facility] (electonic signature) [facility] Protein, Total 5.6 (L) 6.0 - 8.3 gm/dL [facility] Specimen Blood Narrative Performed At Low beta globulin content also noted. [facility] Performing Organization Address City/[facility] Phone Number [address] [address] CENTER Immunoglobulin A (IgA) (08/03/2018 1:51 PM CDT) IgA 222 63 - 484 mg/dL [facility] Specimen Blood Performing Organization Address [facility] Phone Number [address] [address] CENTER Immunoglobulin M (IgM) (08/03/2018 1:51 PM CDT) IgM 86 22 - 293 mg/dL [facility] Specimen Blood Performing Organization Address City/[facility] Phone Number [address] [address] [phone] CENTER Immunoglobulin G (IgG) (08/03/2018 1:51 PM CDT) IgG 1,163 540-1,822 mg/dL [facility] Specimen Blood Performing Organization Address City/[facility]/Zipcode Phone Number [facility] [address] [place] [address] [place] Ferritin (08/03/2018 1:51 PM CDT) Ferritin 3,900 (H) 5 - 275 ng/mL [facility] Specimen Blood Performing Organization Address [facility]/Zipcode Phone Number [facility] [address] [place] [address] [place] Peripheral Blood Smear - Path Review (08/03/2018 1:49 PM CDT) RBC Morphology Comment: Hypochromic, [facility] macrocytic anemia with mild [facility] anisopoikilocytosis, including echinocytes and occasional elliptocytes. Rare schistocytes. Increased polychromasia. WBC Morphology Comment: Increased. [facility] Primarily comprised by [facility] neutrophils, few with toxic granulation features. Platelet Morphology Comment: Decrease with normal [facility] granular morphology. [facility] Occasional large and rare giant forms. No significant platelet aggregates/clumping identified. Pathologist: Jon Roger MD (electronic [facility] signature) [facility] Specimen Blood Performing Organization Address [facility] Phone Number [facility] [address] [place] [address] [phone] [place] Venous doppler arm, right (08/03/2018 12:11 AM CDT) Ejection Fraction [facility] Specimen Impressions Performed At Right Impression [facility] 1. There is partial echolucent deep venous obstruction in the axillary vein. 2. There is no deep venous obstruction in the jugular, subclavian, brachial, radial or ulnar veins where visualized. 3. There is total echolucent superficial venous obstruction in the basilic vein (surrounding the midline). 4. There is no superficial venous obstruction in the cephalic vein where visualized. Conclusions Summary Venous duplex imaging and compression of the right upper extremity were performed. The veins were adequately visualized. The right deep and superficial venous systems were positive with acute thrombus. Signature Velocities are measured in cm/s ; Diameters are measured in cm Narrative Performed At [facility] - Upper Extremities Veins [facility] Demographics Patient Shria Davila of Study 08/02/2018 Age 72 Visit [id number] GenderMale Date of 1945 Referring Elmo Ibarra, Room Number 914 Physician Boardmarker Jaspreet Price Physician Procedure Type of Study: Veins: Upper Extremities Veins, VENOUS DOPPLER ARM, RIGHT. Indications for Study:Rule out DVT and Right arm swelling . Patient Status:Routine. Study Location:Portable. Technical Quality:Adequate visualization. - Results were reported to: Dr. Long @ 1:00AM. Risk Factors History of Disease + +----+ + !Diagnosis!Date!Comments ! 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 !Factors: !!HIV, HTN, HLD, DM, H/o Colon Cancer, Carotid Stenosis, ! ! !!Dry Ulcers on Dorsal Toes, Right Arm Invasive Lines, ! ! !!Left Subclavian Dialysis Catheter, Started on Heparin! ! !!08/02/18 ! + +----+ + Procedure Note Interface, External Ris In - 08/03/2018 12:40 PM CDT [facility] - Upper Extremities Veins Demographics Patient Name CIERRA SALINAS Date of Study 08/02/2018 Age 72 Visit Number [id number] Gender Male Accession Number [id number] Date of 1945 Referring Elmo Ibarra, Room Number 914 Physician Boardmarker Jaspreet Kim Interpreting Connie Price Physician Procedure Type of Study: Veins: Upper Extremities Veins, VENOUS DOPPLER ARM, RIGHT. Indications for Study:Rule out DVT and Right arm swelling . Patient Status:Routine. Study Location:Portable. Technical Quality:Adequate visualization. - Results were reported to: Dr. Long @ 1:00AM. Risk Factors History of Disease + +----+ + !Diagnosis !Date!Comments ! + +----+ + !History/Risk ! !ERSD, Rt Arm AVF (Clotted 08/02/18), Aortic Stenosis, ! !Factors: ! !HIV, HTN, HLD, DM, H/o Colon Cancer, Carotid Stenosis, ! ! ! !Dry Ulcers on Dorsal Toes, Right Arm Invasive Lines, ! ! ! !Left Subclavian Dialysis Catheter, Started on Heparin ! ! ! !08/02/18 ! + +----+ + Impressions Right Impression 1. There is partial echolucent deep venous obstruction in the axillary vein. 2. There is no deep venous obstruction in the jugular, subclavian, brachial, radial or ulnar veins where visualized. 3. There is total echolucent superficial venous obstruction in the basilic vein (surrounding the midline). 4. There is no superficial venous obstruction in the cephalic vein where visualized. Conclusions Summary Venous duplex imaging and compression of the right upper extremity were performed. The veins were adequately visualized. The right deep and superficial venous systems were positive with acute thrombus. Signature Velocities are measured in cm/s ; Diameters are measured in cm Performing Organization Address City/State/Zipcode Phone Number [facility] Hepatic function panel (08/01/2018 5:28 AM CDT)Only the most recent of2 resultswithin the time period is included. Protein, Total 5.8 (L) 6.0 - 8.3 gm/dL [facility] Albumin 3.1 (L) 3.5 - 5.0 g/dL [facility] Total Bilirubin 3.9 (H) 0.2 - 1.2 mg/dL [facility] Bilirubin, Direct 2.4 (H) 0.1 - 0.5 mg/dL [facility] Alkaline Phosphatase 73 40 - 150 U/L [facility] AST 140 (H) 5 - 34 U/L [facility] ALT 598 (H) 6 - 55 U/L [facility] Specimen Blood Narrative Performed At Specimen slightly icteric [facility] Performing Organization Address City/State/Zipcode Phone Number [facility] [address] [place] [address] [phone] brain without IV contrast (07/31/2018 10:21 AM CDT)Only the most recent of2 resultswithin the time period is included. Specimen Narrative Performed At FINAL REPORT [employer] [facility] FACILITY CT Head without contrast CLINICAL HISTORY: Encephalopathy TECHNIQUE: Contiguous axial CT images through the head without contrast. This exam was performed according to the departmental dose optimization program which includes automated exposure control, adjustment of the mA and/or kV according to the patient size, and/or use of an iterative reconstruction technique. COMPARISON: 07/26/2018 FINDINGS: There is no CT evidence of acute infarct or intracranial hemorrhage. There is periventricular and subcortical white matter hypodensity which is nonspecific but compatible with chronic microvascular ischemic change. There are atherosclerotic calcifications of the intracranial circulation. There is generalized parenchymal volume loss without hydrocephalus, midline shift, or apparent mass effect. There are no extra-axial fluid collections. The skull is intact. The visualized paranasal sinuses are well-aerated. IMPRESSION: No CT evidence of acute infarct, hemorrhage, or hydrocephalus. Signed: Stephanie Santacruz MD Report Verified Date/Time:07/31/2018 10:24:48 Reading Location: [facility] B1 C013V Neuro Reading Room Procedure Note Interface, External Ris In - 07/31/2018 10:27 AM CDT FINAL REPORT CT Head without contrast CLINICAL HISTORY: Encephalopathy TECHNIQUE: Contiguous axial CT images through the head without contrast. This exam was performed according to the departmental dose optimization program which includes automated exposure control, adjustment of the mA and/or kV according to the patient size, and/or use of an iterative reconstruction technique. COMPARISON: 07/26/2018 FINDINGS: There is no CT evidence of acute infarct or intracranial hemorrhage. There is periventricular and subcortical white matter hypodensity which is nonspecific but compatible with chronic microvascular ischemic change. There are atherosclerotic calcifications of the intracranial circulation. There is generalized parenchymal volume loss without hydrocephalus, midline shift, or apparent mass effect. There are no extra-axial fluid collections. The skull is intact. The visualized paranasal sinuses are well-aerated. IMPRESSION: No CT evidence of acute infarct, hemorrhage, or hydrocephalus. Signed: Stephanie Santacruz MD Report Verified Date/Time: 07/31/2018 10:24:48 Reading Location: [facility] C013V Neuro Reading Room Performing Organization Address City/State/Zipcode Phone Number [facility] Ammonia (07/31/2018 9:48 AM CDT)Only the most recent of3 resultswithin the time period is included. Ammonia 46 18 - 72 mol/L [facility] Specimen Blood Performing Organization Address City/State/Zipcode Phone Number [address] [address] CENTER Blood gas, arterial (07/31/2018 8:37 AM CDT)Only the most recent of3 resultswithin the time period is included. pH, Arterial 7.37 7.35 - 7.45 [facility] pCO2, Arterial 44 35 - 45 mmHg [facility] pO2, Arterial 229 (H) 80 - 90 mmHg [facility] O2 Sat, Arterial 99.5 (H) 96.0 - 97.0 % [facility] HCO3, Arterial 25 21 - 29 mmol/L [facility] Base Excess, Arterial -0.7 -2.0 - 3.0 mmol/L [facility] Patient Temperature 37.0 C [facility] FIO2 21.0 % [facility] Specimen Blood, Arterial Performing Organization Address City/State/Zipcode Phone Number [facility] [address] [place] [address] CENTER HEMODIALYSIS INPATIENT (07/29/2018 11:07 PM CDT) Narrative Performed At Therese Rodriguez RN 07/29/2018 11:09 PM Lab Results Component Value Date GLUCOSE 130 (H) 07/29/2018 CALCIUM 10.0 07/29/2018 NA 136 07/29/2018 K 5.2 (H) 07/29/2018 CO2 18 (L) 07/29/2018 CL 92 (L) 07/29/2018 BUN 85 (H) 07/29/2018 CREATININE 9.03 (H) 07/29/2018 Lab Results Component Value Date WBC 16.9 (H) 07/29/2018 HGB 13.1 (L) 07/29/2018 HCT 40.2 07/29/2018 MCV 96.6 (H) 07/29/2018 PLT 202 07/29/2018 Results for CIERRA SALINAS ( ) as of 07/29/2018 19:45 Ref. Range 07/27/2018 08:36 Hepatitis B Surface Ag Latest Ref Range: NonreactiveNonreactive HD X 4 hours ended early after 3 hours.Patient very agitated at end of treatment and unable to hold his left arm still.Dr Khan was notified and aware that Net UF of 2L had been removed already.Bled from fistula after needles removed requiring pressure to site X approx 30 minutes.Pressure dressing applied. Report to primary RN.Therese Rodriguez RN TSH/Free T4 If Indicated (07/29/2018 3:14 AM CDT) TSH 0.85 0.35 - 4.94 uIU/mL [facility] Specimen Blood Performing Organization Address City/State/Zipcode Phone Number [facility] [address] [place] [address] [phone] CENTER Lactic acid, venous (07/28/2018 2:16 PM CDT)Only the most recent of5 resultswithin the time period is included. Lactate, Venous 5.3 (H) 0.5 - 2.2 mmol/L [facility] Specimen Blood Narrative Performed At Specimen slightly icteric [facility] Performing Organization Address City/State/Zipcode Phone Number [facility] [address] [place], [place] [phone] CENTER Manual Differential (07/28/2018 4:09 AM CDT)Only the most recent of2 resultswithin the time period is included. % Neutros 90 % [facility] % Lymphs 3 % [facility] % Monos 4 % [facility] % Bands 3 0 - 10 % [facility] # Neutros 17.64 (H) 1.78 - 5.38 K/ul [facility] # Lymphs 0.59 (L) 1.32 - 3.57 K/ul [facility] # Monos 0.78 0.30 - 0.82 K/uL [facility] # Bands 0.59 0.00 - 0.80 K/uL [facility] Total Counted 100 [facility] WBC Morphology Normal [facility] Platelet Morphology Normal [facility] Anisocytosis 1+ few [facility] Macrocytes 1+ few [facility] Poikilocytes 1+ few [facility] Artifact Present [facility] Platelet Conc Adequate [facility] Specimen Blood Narrative Performed At Received comment: [facility] User comments: Slide comments: Performing Organization Address City/State/Zipcode Phone Number [facility] [address] [place], [place] [phone] TINNIE PTH, intact (07/28/2018 4:09 AM CDT) PTH 578.6 (H) 8.5 - 72.5 pg/mL [facility] Specimen Blood Performing Organization Address City/[facility]/Zipcode Phone Number [facility] [address] [place] [address] [phone] CENTER ECHOCARDIOGRAM REPORT - SCAN (07/27/2018 9:22 PM CDT) Narrative Performed At HEMODIALYSIS INPATIENT (07/27/2018 12:46 PM CDT) Narrative Performed At Farhat Savage RN 07/27/2018 12:46 PM HD x 3.5 hrs. UF net 0. Unable to pull desired UF due to HR was above 120. Pt awake and alert. Lab Results Component Value Date WBC 13.2 (H) 07/27/2018 HGB 11.6 (L) 07/27/2018 HCT 35.4 (L) 07/27/2018 MCV 94.4 (H) 07/27/2018 PLT 144 (L) 07/27/2018 Lab Results Component Value Date GLUCOSE 126 (H) 07/27/2018 GLUCOSE 126 (H) 07/27/2018 CALCIUM 10.5 (H) 07/27/2018 CALCIUM 10.5 (H) 07/27/2018 NA 138 07/27/2018 NA 138 07/27/2018 K 4.9 07/27/2018 K 4.9 07/27/2018 CO2 21 (L) 07/27/2018 CO2 21 (L) 07/27/2018 CL 94 (L) 07/27/2018 CL 94 (L) 07/27/2018 BUN 99 (H) 07/27/2018 BUN 99 (H) 07/27/2018 CREATININE 10.86 (H) 07/27/2018 CREATININE 10.86 (H) 07/27/2018 Lab Results Component Value Date HEPBSAG Nonreactive 07/27/2018 Vitals: 07/27/18 1215 BP: Pulse: 99 Resp: 15 Temp: 97.4 F (36.3 C) SpO2: 98% Hepatitis B surface antigen (07/27/2018 8:36 AM CDT) hepatitis B Surface Ag NON-REACTIVE Nonreactive [facility] Specimen Blood Narrative Performed At For chronic HD patients, draw HBsAg with each [facility] admission then every 30 days. Performing Organization Address City/[facility] Phone Number [address] [address] [phone] TINNIE Troponin I (07/27/2018 6:32 AM CDT)Only the most recent of4 resultswithin the time period is included. Troponin I 0.98 (HH) 0.00 - 0.03 ng/mL [facility] Specimen Blood Narrative Performed At Troponin I (TnI) levels must be interpreted [facility] in the context of the presenting symptoms and the clinical findings. Elevated TnI levels indicate myocardial damage, but are not specific for ischemic heart disease. Elevated TnI levels are seen in patients with other cardiac conditions (including myocarditis and congestive heart failure), and slight TnI elevations occur in patients with other conditions, including sepsis, renal failure, acidosis, acute neurological disease, and persistent tachyarrhythmia. Performing Organization Address [facility] Phone Number [address] [address] TINNIE Respiratory Panel [facility] (07/26/2018 8:30 PM CDT) Human Metapneumovirus Not detected Not detected, [facility] Rhinovirus Not detected Not detected, [facility] Influenza A Not detected Not detected, [facility] INFLUENZA A (NO SUBTYPE) Not detected, [facility] Influenza A subtype H1 Not detected, [facility] Influenza A Subtype H3 Not detected, [facility] Influenza A Subtype H1-2009 Not detected, [facility] Influenza B Not detected Not detected, [facility] Respiratory Syncytial Virus Not detected Not detected, [facility] Parainfluenza Virus 1 Not detected Not detected, [facility] Parainfluenza Virus 2 Not detected Not detected, [facility] Parainfluenza virus 3 Not detected Not detected, [facility] Parainfluenza Virus 4 Not detected Not detected, [facility] Adenovirus Not detected Not detected, [facility] Coronavirus 229E Not detected Not detected, [facility] Coronavirus HKU1 Not detected Not detected, [facility] Coronavirus NL63 Not detected Not detected, [facility] Coronavirus OC43 Not detected Not detected, [facility] Bordetella Pertussis Not detected Not detected, [facility] Chlamydophila Pneumoniae Not detected Not detected, [facility] Mycoplasma Pneumoniae Not detected Not detected, [facility] Specimen Nasopharyngeal Narrative Performed At Other viruses and bacteria not targeted by [facility] this PCR panel cannot be excluded; therefore clinical correlation and follow up of serology, culture results, and other molecular studies is required. The results are not intended to be used as the sole means for clinical diagnosis or patient management decisions. This sample was tested at the [facility] Molecular Diagnostics Laboratory using the BizGreetArray Respiratory Panel. It is FDA cleared and has been verified and approved by the [facility] Molecular Diagnostics Laboratory for clinical use on nasopharyngeal swab specimens. The performance of the FilmArray RP has not been established in individuals who received influenza vaccine.Recent administration of a nasal influenza vaccine may cause false positive results for Influenza A and/or Influenza B. Performing Organization Address City/State/Zipcode Phone Number [facility] [address] CENTER ECHO W CONTRAST & DOPPLER (07/26/2018 8:03 PM CDT) Ejection Fraction [facility] ECHO HEARTLAB [facility] Specimen Narrative Performed At Transthoracic Echocardiography Report (TTE) [facility] ECHO HEARTLAB [facility] Demographics Patient NameCIERRA SALINAS Date of Study07/26/2018 Male Visit [id number] Unknown Room [id number] Number Date of 4Referring Toby Cr MD Age 72 year(s)Boardmarker Neida Lancaster RDCS, RVT Interpreting Joy Cramer FellowHeahuseyin Blackwell MD Procedure Type of Study TTE procedure:2DECHO W/CONTRAST & DOPPLER (STAT) Indications:Eval EF Function. Clinical History bubble study. , DM, ESRD, HIV, HTN, AV FISTULA HGB 12 HCT 36.5 % Contrast Medium: Definity. Amount - 2 ml Height: 71 inches Weight: 121.56 kg (268 lbs) BSA: 2.39 m^2 BMI: 37.38 kg/m^2 HR: 120 bpm BP: 81/65 mmHg Summary Rapid rhythm during the exam. LV endocardium is adequately visualized with IV ultrasound enhancing agent. The left ventricle is chamber size (by vol index) is normal (male - LVED vol - 34-74ml/m2). Mild concentric LV hypertrophy. LVEF by Alexandra's method of disk assessment is severely reduced (25-29%) . All of the LV segments are mildly hypokinetic . Degree of diastolic dysfunction (LAP assessment) is inconclusive due to arrhythmia . RV is partially visualized. RV chamber size is mildly enlarged . Global RV systolic function is depressed . AoV cusp mobility is severely decreased . Severe aortic stenosis with YULY 0.74, mean gradient 30mmHg, peak 48mmHg, DVI 0.19. Lower gradients likely due to relatively low flow state. The estimated RA pressure by IVC dynamics 16-20mmHg . Estimated peak systolic PA pressure cannot be determined due to inadequate TR velocity signal . Signature Findings Rhythm/BPRapid rhythm during the exam. Left Ventricle LV endocardium is adequately visualized with IV ul trasound enhancing agent. Th e left ventricle is chamber size (by vol index) is normal (male - LVED vol - 34-74ml/m2). Mi ld concentric LV hypertrophy. LV EF by Alexandra's method of disk assessment is se verely reduced (25-29%) . Al l of the LV segments are mildly hypokinetic . De gree of diastolic dysfunction (LAP assessment) is in conclusive due to arrhythmia . Left AtriumLA size is severely enlarged (>48 ml/m2) . Right VentricleRV is partially visualized. RV chamber size is mildly enlarged . Gl obal RV systolic function is depressed . Right Atrium RA size is severely dilated. Atrial SeptumThe interatrial septum is adequately visualized. IV saline contrast injection was negative for a PFO (p atent foramen ovale) at rest. IV saline contrast with delayed imaging is negative fo r intra pulmonic shunting. Aortic Valve Moderate AoV cusp thickening. Se felicitas AoV cusp calcification. Ao V cusp mobility is severely decreased . Se felicitas aortic stenosis with YULY 0.74, mean gradient 30 mmHg, peak 48mmHg, DVI 0.19. Lower gradients li rivka due to relatively low flow state. Mitral Valve Mild MV leaflet thickening. Mi ld mitral annular calcification. Mi ld mitral regurgitation. Tricuspid ValveTV structure is normal. A trace of tricuspid regurgitation. Es timated peak systolic PA pressure cannot be de termined due to inadequate TR velocity signal . Pulmonic Valve PV is not well visualized; function appears normal by Doppler visualized. A trace of pulmonary regurgitation. AortaAortic root size (SInus of Valsalva diameter) is no rmal . PericardiumNo significant pericardial effusion is visualized. IVC/SVC/PA/PV/PleuralThe estimated RA pressure by IVC dynamics 16-20mmHg . Chambers/Structures Left Atrium LA Volume: 124.26 mlLA Area: 34.66 cm^2 LA Vol. Index: 52 ml/m^2 Left Ventricle LVIDd: 5.15 cm LVIDs: 4.21 cm LV Septum Diastolic: 1.47 cm LV PW Diastolic: 1.36 cmLV FS: 18.3 % LVEDV Alexandra's:83.31 ml LVESV Alexandra's:58.94 mlLVEDVI: 35 ml/m^2 LVEF Alexandra's: 29.3 %LVESV I: 25 ml/m^2 LVOT Diameter: 2.23 cm Aorta Ao Root S of Deanne.: 3.04 cm Doppler/Quantitative Measurements Mitral Valve Mean Velocity: 0.77 m/s Mean Gradient: 2.59 mmHg Area (continuity): 3.02 cm^2 MV VTI: 13.6 cm MV David. Peak: 1.06 m/s Aortic Valve Peak Velocity: 3.49 m/sMean Velocity: 2.59 m/s Peak Gradient: 48.73 mmHgMean Gradient: 30.36 mmHg AV Area (continuity): 0.73 cm^2 AV VTI: 56.05 cm AV DVI: 0.19 LVOT Peak Velocity: 0.67 m/s Peak Gradient: 1.78 mmHg Mean Velocity: 0.42 m/s Mean Gradient: 0.84 mmHg LVOT Diameter: 2.23 cmLVOT VTI: 10.52 cm LVOT Area: 3.91 cm^2LVOT SV:41.07 ml LVOT CO: 4.93 l/min LVOT CI: 2.06 l/min/m^2 Procedure Note Interface, External Ris In - 07/27/2018 5:47 PM CDT Transthoracic Echocardiography Report (TTE) Demographics Patient Name CIERRA SALINAS Date of Study 07/26/2018 Gender Male Visit Number [id number] Race Unknown Room Number [id number] Number Date of 1945 Referring Toby Law MD Age 72 year(s) Boardmarker Neida Lancaster RDCS, RVT Interpreting Physician Shoaib Fellow Marilyn Blackwell MD Procedure Type of Study TTE procedure:2DECHO W/CONTRAST & DOPPLER (STAT) Indications:Eval EF Function. Clinical History bubble study. , DM, ESRD, HIV, HTN, AV FISTULA HGB 12 HCT 36.5 % Contrast Medium: Definity. Amount - 2 ml Height: 71 inches Weight: 121.56 kg (268 lbs) BSA: 2.39 m^2 BMI: 37.38 kg/m^2 HR: 120 bpm BP: 81/65 mmHg Summary Rapid rhythm during the exam. LV endocardium is adequately visualized with IV ultrasound enhancing agent. The left ventricle is chamber size (by vol index) is normal (male - LVED vol - 34-74ml/m2). Mild concentric LV hypertrophy. LVEF by Alexandra's method of disk assessment is severely reduced (25-29%) . All of the LV segments are mildly hypokinetic . Degree of diastolic dysfunction (LAP assessment) is inconclusive due to arrhythmia . RV is partially visualized. RV chamber size is mildly enlarged . Global RV systolic function is depressed . AoV cusp mobility is severely decreased . Severe aortic stenosis with YULY 0.74, mean gradient 30mmHg, peak 48mmHg, DVI 0.19. Lower gradients likely due to relatively low flow state. The estimated RA pressure by IVC dynamics 16-20mmHg . Estimated peak systolic PA pressure cannot be determined due to inadequate TR velocity signal . Signature Findings Rhythm/BP Rapid rhythm during the exam. Left Ventricle LV endocardium is adequately visualized with IV ultrasound enhancing agent. The left ventricle is chamber size (by vol index) is normal (male - LVED vol - 34-74ml/m2). Mild concentric LV hypertrophy. LVEF by Alexandra's method of disk assessment is severely reduced (25-29%) . All of the LV segments are mildly hypokinetic . Degree of diastolic dysfunction (LAP assessment) is inconclusive due to arrhythmia . Left Atrium LA size is severely enlarged (>48 ml/m2) . Right Ventricle RV is partially visualized. RV chamber size is mildly enlarged . Global RV systolic function is depressed . Right Atrium RA size is severely dilated. Atrial Septum The interatrial septum is adequately visualized. IV saline contrast injection was negative for a PFO (patent foramen ovale) at rest. IV saline contrast with delayed imaging is negative for intra pulmonic shunting. Aortic Valve Moderate AoV cusp thickening. Severe AoV cusp calcification. AoV cusp mobility is severely decreased . Severe aortic stenosis with YULY 0.74, mean gradient 30mmHg, peak 48mmHg, DVI 0.19. Lower gradients likely due to relatively low flow state. Mitral Valve Mild MV leaflet thickening. Mild mitral annular calcification. Mild mitral regurgitation. Tricuspid Valve TV structure is normal. A trace of tricuspid regurgitation. Estimated peak systolic PA pressure cannot be determined due to inadequate TR velocity signal . Pulmonic Valve PV is not well visualized; function appears normal by Doppler visualized. A trace of pulmonary regurgitation. Aorta Aortic root size (SInus of Valsalva diameter) is normal . Pericardium No significant pericardial effusion is visualized. IVC/SVC/PA/PV/Pleural The estimated RA pressure by IVC dynamics 16-20mmHg . Chambers/Structures Left Atrium LA Volume: 124.26 ml LA Area: 34.66 cm^2 LA Vol. Index: 52 ml/m^2 Left Ventricle LVIDd: 5.15 cm LVIDs: 4.21 cm LV Septum Diastolic: 1.47 cm LV PW Diastolic: 1.36 cm LV FS: 18.3 % LVEDV Alexandra's:83.31 ml LVESV Alexandra's:58.94 ml LVEDVI: 35 ml/m^2 LVEF Alexandra's: 29.3 % LVESVI: 25 ml/m^2 LVOT Diameter: 2.23 cm Aorta Ao Root S of Deanne.: 3.04 cm Doppler/Quantitative Measurements Mitral Valve Mean Velocity: 0.77 m/s Mean Gradient: 2.59 mmHg Area (continuity): 3.02 cm^2 MV VTI: 13.6 cm MV David. Peak: 1.06 m/s Aortic Valve Peak Velocity: 3.49 m/s Mean Velocity: 2.59 m/s Peak Gradient: 48.73 mmHg Mean Gradient: 30.36 mmHg AV Area (continuity): 0.73 cm^2 AV VTI: 56.05 cm AV DVI: 0.19 LVOT Peak Velocity: 0.67 m/s Peak Gradient: 1.78 mmHg Mean Velocity: 0.42 m/s Mean Gradient: 0.84 mmHg LVOT Diameter: 2.23 cm LVOT VTI: 10.52 cm LVOT Area: 3.91 cm^2 LVOT SV:41.07 ml LVOT CO: 4.93 l/min LVOT CI: 2.06 l/min/m^2 Performing Organization Address City/[facility] Phone Number [facility] Blood Culture - Routine (Right Venipuncture) (07/26/2018 6:45 PM CDT)Only the most recent of2 resultswithin the time period is included. Result No growth in 5 days [facility] Specimen Blood Performing Organization Address [facility] Phone Number [address] [address] CENTER Hemoglobin A1c (07/26/2018 6:44 PM CDT) Hemoglobin A1C 5.8 4.3 - 6.1 % [facility] Specimen Blood Performing Organization Address [facility] Phone Number [address] [address] [phone] CENTER HIV-1 PCR, Quantitative (07/26/2018 12:11 PM CDT) HIV-1 PCR, Quantitative 1,060 (H) <20 Cp/mL [facility] Specimen Blood Narrative Performed At This test uses a Real-Time Polymerase Chain [facility] Reaction (RT-PCR) methodology to detect a highly conserved region of the HIV-1 gag gene and was performed using the [employer] AmpliPrep/OLESYA TaqMan HIV-1 test kit version 2.0 ([employer] Reportable range for this assay is 20 - 10,000,000 copies per mL (1.3 - 7.0 Log copies/mL). Performing Organization Address City/[facility] Phone Number [address] [phone] TINNIE Procalcitonin (07/26/2018 12:10 PM CDT) Procalcitonin 0.72 (H) <0.05 ng/mL [facility] Specimen Blood Narrative Performed At SEPSIS RISK (ng/mL) [facility] Low:0.05-0.50 Intermediate: 0.51-2.00 High: >=2.01 Performing Organization Address [facility] Phone Number [address] [address] [phone] TINNIE CD4 T Cell Subset (07/26/2018 12:10 PM CDT) Total Lymphocytes 679 /cu mm [facility] CD3+ T Lymphocytes % 81 49 - 84 % [facility] CD3+ T Lymphocytes Absolute 553 (L) 603-2,990 /cu mm [facility] CD3+/CD8+ T Lymph cells % 13 10 - 40 % [facility] CD3+/CD8+ T Lymph cells 86 (L) 125-1,312 /cu mm [facility] Absolute [facility] CD3+/CD4+ T Lymph cells% 69 (H) 28 - 63 % [facility] CD3+/CD4+ T Lymph Cells 468 441-2,156 /cu mm [facility] CENTER T Lymphocytes CD4/CD8 ratio 5.46 (H) 0.70 - 3.23 [facility] CD16+/CD56+ NK Cells % 11 4 - 25 % [facility] CD16+/CD56+ NK Cells Absolute 72 (L) 95 - 640 /cu mm [facility] CD19+ B Lymphocytes % 7 6 - 27 % [facility] CD19+ B Lymphocytes Absolute 49 (L) 107 - 698 /cu mm [facility] Specimen Blood Performing Organization Address City/State/Zipcode Phone Number [address] [address] [phone] TINNIE Lipase (07/26/2018 12:10 PM CDT) Lipase 18 8 - 78 U/L [facility] Specimen Blood Performing Organization Address City/[facility]/Zipcode Phone Number [address] [address] CENTER B-type Natriuretic Factor (BNP) (07/26/2018 11:22 AM CDT)Only the most recent of2 resultswithin the time period is included. BNP 4,832 (H) 0 - 100 pg/mL [facility] Specimen Blood Performing Organization Address [facility] Phone Number [address] [address] [place] US abdomen limited (07/26/2018 11:04 AM CDT) Specimen Narrative Performed At FINAL REPORT [facility] INDICATION: Abnormal liver function tests. TECHNIQUE: Abdominal ultrasound limited (right upper quadrant). COMPARISON: None. FINDINGS: Pancreas to the extent visualized unremarkable. Liver echotexture, contour, and size unremarkable. Main portal vein patent and normal in diameter measuring 0.9 cm. Transverse diameter of the gallbladder is 3.0 cm. No pericholecystic fluid and no gallstones. Common bile duct not visualized. Intrahepatic cava and hepatic veins are prominent. Right kidney measures 10.1 x 4.8 x 4.3 cm. Proximal abdominal aorta and visualized part of the IVC unremarkable. Distal abdominal aorta not visualized because of bowel gas. IMPRESSION: Unremarkable right upper quadrant ultrasound exam. Signed: Nolan Martinez MD Report Verified Date/Time:07/26/2018 11:45:22 Reading Location: [facility] B1 C013Y CT Body Reading Room Procedure Note Interface, External Ris In - 07/26/2018 11:47 AM CDT FINAL REPORT INDICATION: Abnormal liver function tests. TECHNIQUE: Abdominal ultrasound limited (right upper quadrant). COMPARISON: None. FINDINGS: Pancreas to the extent visualized unremarkable. Liver echotexture, contour, and size unremarkable. Main portal vein patent and normal in diameter measuring 0.9 cm. Transverse diameter of the gallbladder is 3.0 cm. No pericholecystic fluid and no gallstones. Common bile duct not visualized. Intrahepatic cava and hepatic veins are prominent. Right kidney measures 10.1 x 4.8 x 4.3 cm. Proximal abdominal aorta and visualized part of the IVC unremarkable. Distal abdominal aorta not visualized because of bowel gas. IMPRESSION: Unremarkable right upper quadrant ultrasound exam. Signed: Nolan Martinez MD Report Verified Date/Time: 07/26/2018 11:45:22 Reading Location: [facility] B1 C013Y CT Body Reading Room Performing Organization Address City/State/Zipcode Phone Number [facility] XR chest 2 views (03/23/2018 6:17 PM COMMERCIAL INSTALLER) Specimen Narrative Performed At FINAL REPORT [facility] Chest, 2 views, 03/23/2018 6:20 PM. Comparison: [...] MD Report Verified Date/Time:03/23/2018 18:51:08 Reading Location: [facility] C013W Consult Reading Room Procedure Note Interface, External Ris In - 03/23/2018 6:53 PM COMMERCIAL INST[employer] FINAL REPORT Chest, 2 views, 03/23/2018 6:20 [...] Report Verified Date/Time: 03/23/2018 18:51:08 Reading Location: [facility] C0[facility] Consult Reading Room Performing Organization Address [facility] Phone Number [facility] Rapid Myoglobin (03/23/2018 6:05 PM COMMERCIAL INSTALLER) Rapid Myoglobin 438 (H) <107 ng/mL [facility] Specimen Blood Performing Organization Address [facility] Phone Number [address] [phone] [facility] Rapid Troponin I (03/23/2018 6:05 PM COMMERCIAL INSTALLER) Rapid Troponin I <0.05 <0.05 ng/mL [facility] Specimen Blood Performing Organization Address [facility] Phone Number [facility] [phone] [place] [phone] [facility] Rapid CK-MB (03/23/2018 6:05 PM COMMERCIAL INSTALLER) Rapid CKMB 3.2 0.0 - 4.3 ng/mL [facility] Specimen Blood Performing Organization Address [facility] Phone Number [address] [address] [facility] [place] [facility] Creatine Kinase (CK) (03/23/2018 6:05 PM COMMERCIAL INSTALLER) Total CK 50 40 - 250 U/L [facility] Specimen Blood Performing Organization Address City/State/Zipcode Phone Number [place] [address] [place] [address] [facility] LAB[facility] ECG/EKG Interpretation (03/23/2018 5:42 PM COMMERCIAL INSTALLER) Narrative Performed At Avel Dominguez MD 03/23/20186:53 PM ECG/EKG Interpretation Date/Time: 03/23/2018 5:50 PM Performed by: Avel Dominguez MD Authorized by: Avel Dominguez MD The ECG was interpreted by ED physician. This ECG was not compared with previous ECG(s).The ECG is interpreted as atrial flutter. Rate is tachycardic. Conduction: conduction normal. ST segments abnormal. T waves normal. Jbphh is normal. Other findings: no other findings. Clinical Impression: dysrhythmia - atrial after 08/16/2017 Insurance Payer Benefit Plan / Group Subscriber ID Type Phone Address MEDICARE MEDICARE A B xxxxxxxxxxx Medicare MEDICARE MEDICARE A B xxxxxxxxxx Medicare C[employer] - [place] CARE [employer] xxxxxxxxxxx HMO/POS [employer] - [employer] CARE [employer] xxxxxxxxxxx HMO/POS Advance Directives For more information, please contact:[place] [address] [address] [place], [place] [phone] Code Status Date Activated Date Inactivated Comments Full Code 07/26/2018 10:26 AM 08/13/2018 5:48 PM This code status was determined by: Patient
--- OUTSIDE RECORDS SUMMARY | 2018-08-17 08:31 | XMS REPORT ---
:1945 [facility] Address [address] [place] [address] Dr. Coleman [address] [place] [address] Care Team Providers Name Role Phone YOEL FELICIANO Unavailable Unavailable RUSSELL CALDERON Unavailable Unavailable Problems This patient has no known problems. Allergies, Adverse Reactions, Alerts This patient has no known allergies or adverse reactions. Medications This patient has no known medications. Results Test Description Test Time Test Comments Text Results Atomic Results Result Comments POCT-GLUCOSE METER 2018-08-13 12:56:00 Test Item Value Reference Range Comments POC-GLUCOSE METER (BEAKER) (test 131 mg/dL 70-110 TESTED AT [address] valj=5482) [facility] [address] POCT-GLUCOSE [id number] 07:42:00 Test Item Value Reference Range Comments POC-GLUCOSE METER (BEAKER) 132 mg/dL 70-110 TESTED AT [address] (test bkka=2253) [place] [id number] BASIC METABOLIC [id number] 06:40:00 Test Item Value Reference Range Comments SODIUM (BEAKER) (test 137 meq/L 136-145 rqck=582) POTASSIUM (BEAKER) (test 4.4 meq/L 3.5-5.1 wuqm=517) CHLORIDE (BEAKER) (test 99 meq/L 98-107 vlnn=411) CO2 (BEAKER) (test 29 meq/L 22-29 qlrf=205) BLOOD UREA NITROGEN 31 mg/dL 7-21 (BEAKER) (test jzld=144) CREATININE (BEAKER) (test 5.05 mg/dL 0.57-1.25 ezlx=954) GLUCOSE RANDOM (BEAKER) 146 mg/dL 70-105 (test jftj=614) CALCIUM (BEAKER) (test 9.0 mg/dL 8.4-10.2 culc=146) EGFR (BEAKER) (test 11 mL/min/1.73 sq m ESTIMATED GFR IS NOT wifd=8960) ACCURATE CREATININE CLEARANCE IN PREDICTING GLOMERULAR FILTRATION RATE. ESTIMATED GFR IS NOT APPLICABLE FOR DIALYSIS PATIENTS. [id number] 06:39:00 Test Item Value Reference Range Comments PHOSPHORUS (BEAKER) (test yqdc=798) 3.7 mg/dL 2.3-4.7 [id number] 06:39:00 Test Item Value Reference Range Comments MAGNESIUM (BEAKER) (test iolo=060) 2.6 mg/dL 1.6-2.6 CBC W/PLT COUNT & AUTO [id number] 06:38:00 Test Item Value Reference Range Comments WHITE BLOOD CELL COUNT (BEAKER) (test xszq=369) 9.4 K/ L 3.5-10.5 RED BLOOD CELL COUNT (BEAKER) (test fdmg=116) 3.25 M/ L 4.63-6.08 HEMOGLOBIN (BEAKER) (test jthw=129) 10.2 GM/DL 13.7-17.5 HEMATOCRIT (BEAKER) (test oxpk=839) 33.0 % 40.1-51.0 MEAN CORPUSCULAR VOLUME (BEAKER) (test cgvz=008) 101.5 fL 79.0-92.2 MEAN CORPUSCULAR HEMOGLOBIN (BEAKER) (test 31.4 pg 25.7-32.2 fnuj=683) MEAN CORPUSCULAR HEMOGLOBIN CONC (BEAKER) (test 30.9 GM/DL 32.3-36.5 exnd=707) RED CELL DISTRIBUTION WIDTH (BEAKER) (test 18.5 % 11.6-14.4 erdi=573) PLATELET COUNT (BEAKER) (test axdi=372) 202 K/CU MM 150-450 MEAN PLATELET VOLUME (BEAKER) (test rlsa=605) 10.8 fL 9.4-12.4 NUCLEATED RED BLOOD CELLS (BEAKER) (test 0 /100 WBC 0-0 xbwf=956) NEUTROPHILS RELATIVE PERCENT (BEAKER) (test 81 % xyaq=749) LYMPHOCYTES RELATIVE PERCENT (BEAKER) (test 7 % cfql=898) MONOCYTES RELATIVE PERCENT (BEAKER) (test 8 % oaii=913) EOSINOPHILS RELATIVE PERCENT (BEAKER) (test 2 % rnww=584) BASOPHILS RELATIVE PERCENT (BEAKER) (test 1 % qqzp=204) NEUTROPHILS ABSOLUTE COUNT (BEAKER) (test 7.63 K/ L 1.78-5.38 nfuy=326) LYMPHOCYTES ABSOLUTE COUNT (BEAKER) (test 0.70 K/ L 1.32-3.57 ffng=137) MONOCYTES ABSOLUTE COUNT (BEAKER) (test 0.78 K/ L 0.30-0.82 qgbs=553) EOSINOPHILS ABSOLUTE COUNT (BEAKER) (test 0.18 K/ L 0.04-0.54 qtse=897) BASOPHILS ABSOLUTE COUNT (BEAKER) (test 0.06 K/ L 0.01-0.08 lxwb=707) IMMATURE GRANULOCYTES-RELATIVE PERCENT (BEAKER) 1 % 0-1 (test zqlp=5425) PROTHROMBIN [id number] 06:25:00 Test Item Value Reference Range Comments PROTIME (BEAKER) (test fnrg=041) 18.4 seconds 11.9-14.2 INR (BEAKER) (test jdhp=887) 1.6 <=5.9 Effective 07/29/2018: PT Reference Range ChangeNew: 11.9-14.2 Previous: 11.7- 14.7RECOMMENDED COUMADIN/WARFARIN INR THERAPY RANGESSTANDARD DOSE: 2.0-3.0 Includes: PROPHYLAXIS for venous thrombosis, systemic embolization; TREATMENT for venous thrombosis and/or pulmonary embolus.HIGH RISK: Target INR is2.5-3.5 for patients wiht mechanical heart valves.While on warfarin.POCT-GLUCOSE [id number] 21:17:00 Test Item Value Reference Range Comments POC-GLUCOSE METER (BEAKER) 143 mg/dL 70-110 TESTED AT [address] (test yosv=0264) [facility] [address] POCT-GLUCOSE [id number] 18:22:00 Test Item Value Reference Range Comments POC-GLUCOSE METER (BEAKER) 67 mg/dL 70-110 TESTED AT [address] (test plco=6863) [facility] [address] POCT-GLUCOSE [id number] 12:29:00 Test Item Value Reference Range Comments POC-GLUCOSE METER (BEAKER) 154 mg/dL 70-110 TESTED AT [address] (test retq=8349) [facility] [address] POCT-GLUCOSE [id number] 07:50:00 Test Item Value Reference Range Comments POC-GLUCOSE METER (BEAKER) 107 mg/dL 70-110 TESTED AT [facility] [address] (test xkmp=4177) [facility] [address] BASIC METABOLIC [id number] 07:03:00 Test Item Value Reference Range Comments SODIUM (BEAKER) (test 130 meq/L 136-145 rmon=124) POTASSIUM (BEAKER) (test 4.5 meq/L 3.5-5.1 ptuz=899) CHLORIDE (BEAKER) (test 95 meq/L 98-107 znof=108) CO2 (BEAKER) (test 25 meq/L 22-29 gfnd=700) BLOOD UREA NITROGEN 45 mg/dL 7-21 (BEAKER) (test rzdp=175) CREATININE (BEAKER) (test 6.26 mg/dL 0.57-1.25 tlbi=143) GLUCOSE RANDOM (BEAKER) 100 mg/dL 70-105 (test mjhe=464) CALCIUM (BEAKER) (test 9.2 mg/dL 8.4-10.2 dvxf=111) EGFR (BEAKER) (test 9 mL/min/1.73 sq m ESTIMATED GFR IS NOT cobg=0667) ACCURATE CREATININE CLEARANCE IN PREDICTING GLOMERULAR FILTRATION RATE. ESTIMATED GFR IS NOT APPLICABLE FOR DIALYSIS PATIENTS. [id number] 07:01:00 Test Item Value Reference Range Comments PHOSPHORUS (BEAKER) (test nidn=383) 4.4 mg/dL 2.3-4.7 [id number] 07:01:00 Test Item Value Reference Range Comments MAGNESIUM (BEAKER) (test segc=510) 2.8 mg/dL 1.6-2.6 [id number] 06:43:00 Test Item Value Reference Range Comments PARTIAL THROMBOPLASTIN TIME (BEAKER) (test 89.2 seconds 22.5-36.0 rlrz=053) 4 hours after the start of continuous infusion and 4 hours after any rate changeWhile on warfarin.PROTHROMBIN [id number] 06:41:00 Test Item Value Reference Range Comments PROTIME (BEAKER) (test aphg=878) 21.2 seconds 11.9-14.2 INR (BEAKER) (test plgp=291) 2.0 <=5.9 Effective 07/29/2018: PT Reference Range ChangeNew: 11.9-14.2 Previous: 11.7- 14.7RECOMMENDED COUMADIN/WARFARIN INR THERAPY RANGESSTANDARD DOSE: 2.0-3.0 Includes: PROPHYLAXIS for venous thrombosis, systemic embolization; TREATMENT for venous thrombosis and/or pulmonary embolus.HIGH RISK: Target INR is2.5-3.5 for patients wiht mechanical heart valves.4 hours after the start of continuous infusion and4 hours after any rate changeWhile on warfarin.CBC W/PLT COUNT &amp ; AUTO [id number] 06:38:00 Test Item Value Reference Range Comments WHITE BLOOD CELL COUNT (BEAKER) (test mqos=066) 10.7 K/ L 3.5-10.5 RED BLOOD CELL COUNT (BEAKER) (test nuwx=686) 3.21 M/ L 4.63-6.08 HEMOGLOBIN (BEAKER) (test mhlx=803) 10.1 GM/DL 13.7-17.5 HEMATOCRIT (BEAKER) (test efgc=943) 31.9 % 40.1-51.0 MEAN CORPUSCULAR VOLUME (BEAKER) (test hpwr=561) 99.4 fL 79.0-92.2 MEAN CORPUSCULAR HEMOGLOBIN (BEAKER) (test 31.5 pg 25.7-32.2 ngvw=998) MEAN CORPUSCULAR HEMOGLOBIN CONC (BEAKER) (test 31.7 GM/DL 32.3-36.5 dzvt=829) RED CELL DISTRIBUTION WIDTH (BEAKER) (test 18.2 % 11.6-14.4 nclv=484) PLATELET COUNT (BEAKER) (test nwbo=775) 205 K/CU MM 150-450 MEAN PLATELET VOLUME (BEAKER) (test tgmm=446) 11.0 fL 9.4-12.4 NUCLEATED RED BLOOD CELLS (BEAKER) (test 0 /100 WBC 0-0 btgt=855) NEUTROPHILS RELATIVE PERCENT (BEAKER) (test 81 % upde=400) LYMPHOCYTES RELATIVE PERCENT (BEAKER) (test 8 % faft=578) MONOCYTES RELATIVE PERCENT (BEAKER) (test 8 % vrfe=976) EOSINOPHILS RELATIVE PERCENT (BEAKER) (test 2 % lcwm=257) BASOPHILS RELATIVE PERCENT (BEAKER) (test 1 % svlx=535) NEUTROPHILS ABSOLUTE COUNT (BEAKER) (test 8.71 K/ L 1.78-5.38 khro=165) LYMPHOCYTES ABSOLUTE COUNT (BEAKER) (test 0.83 K/ L 1.32-3.57 tirn=208) MONOCYTES ABSOLUTE COUNT (BEAKER) (test 0.84 K/ L 0.30-0.82 uofj=356) EOSINOPHILS ABSOLUTE COUNT (BEAKER) (test 0.20 K/ L 0.04-0.54 cbhh=862) BASOPHILS ABSOLUTE COUNT (BEAKER) (test 0.05 K/ L 0.01-0.08 uryj=483) IMMATURE GRANULOCYTES-RELATIVE PERCENT (BEAKER) 1 % 0-1 (test rpgv=8244) POCT-GLUCOSE [id number] 21:28:00 Test Item Value Reference Range Comments POC-GLUCOSE METER (BEAKER) 176 mg/dL 70-110 TESTED AT [address] (test jbdc=6014) [place] [id number] POCT-GLUCOSE [id number] 17:49:00 Test Item Value Reference Range Comments POC-GLUCOSE METER (BEAKER) 131 mg/dL 70-110 TESTED AT [address] (test jebi=7301) [place] [id number] POCT-GLUCOSE [id number] 12:14:00 Test Item Value Reference Range Comments POC-GLUCOSE METER (BEAKER) 189 mg/dL 70-110 TESTED AT [address] (test ddtf=0942) [place] [id number] 09:14:00 Test Item Value Reference Range Comments PHOSPHORUS (BEAKER) (test xawr=837) 3.7 mg/dL 2.3-4.7 [id number] 09:14:00 Test Item Value Reference Range Comments MAGNESIUM (BEAKER) (test fmbg=145) 2.7 mg/dL 1.6-2.6 BASIC METABOLIC [id number] 09:14:00 Test Item Value Reference Range Comments SODIUM (BEAKER) (test 130 meq/L 136-145 hfxh=741) POTASSIUM (BEAKER) (test 3.9 meq/L 3.5-5.1 hyar=820) CHLORIDE (BEAKER) (test 94 meq/L 98-107 xwbr=533) CO2 (BEAKER) (test 29 meq/L 22-29 anre=883) BLOOD UREA NITROGEN 36 mg/dL 7-21 (BEAKER) (test qdau=501) CREATININE (BEAKER) (test 5.45 mg/dL 0.57-1.25 ytqi=739) GLUCOSE RANDOM (BEAKER) 127 mg/dL 70-105 (test bqbg=693) CALCIUM (BEAKER) (test 8.7 mg/dL 8.4-10.2 snrp=490) EGFR (BEAKER) (test 10 mL/min/1.73 sq m ESTIMATED GFR IS NOT towl=0737) ACCURATE CREATININE CLEARANCE IN PREDICTING GLOMERULAR FILTRATION RATE. ESTIMATED GFR IS NOT APPLICABLE FOR DIALYSIS PATIENTS. Specimen slightly ictericPOCT-GLUCOSE [id number] 08:55:00 Test Item Value Reference Range Comments POC-GLUCOSE METER (BEAKER) 139 mg/dL 70-110 TESTED AT [facility] [address] [facility] (test vfte=3942) [facility] [address] CBC W/PLT COUNT & AUTO [id number] 06:21:00 Test Item Value Reference Range Comments WHITE BLOOD CELL COUNT (BEAKER) (test sgle=395) 9.9 K/ L 3.5-10.5 RED BLOOD CELL COUNT (BEAKER) (test cips=098) 3.18 M/ L 4.63-6.08 HEMOGLOBIN (BEAKER) (test uqtz=888) 10.0 GM/DL 13.7-17.5 HEMATOCRIT (BEAKER) (test gbbt=024) 32.4 % 40.1-51.0 MEAN CORPUSCULAR VOLUME (BEAKER) (test mmqa=576) 101.9 fL 79.0-92.2 MEAN CORPUSCULAR HEMOGLOBIN (BEAKER) (test 31.4 pg 25.7-32.2 uxld=719) MEAN CORPUSCULAR HEMOGLOBIN CONC (BEAKER) (test 30.9 GM/DL 32.3-36.5 bmbq=331) RED CELL DISTRIBUTION WIDTH (BEAKER) (test 18.6 % 11.6-14.4 kvgc=186) PLATELET COUNT (BEAKER) (test pyxc=543) 199 K/CU MM 150-450 MEAN PLATELET VOLUME (BEAKER) (test giyv=178) 10.3 fL 9.4-12.4 NUCLEATED RED BLOOD CELLS (BEAKER) (test 0 /100 WBC 0-0 cgko=503) NEUTROPHILS RELATIVE PERCENT (BEAKER) (test 83 % bfex=028) LYMPHOCYTES RELATIVE PERCENT (BEAKER) (test 6 % aidr=374) MONOCYTES RELATIVE PERCENT (BEAKER) (test 8 % ggvg=450) EOSINOPHILS RELATIVE PERCENT (BEAKER) (test 2 % wrnt=180) BASOPHILS RELATIVE PERCENT (BEAKER) (test 1 % pxpr=306) NEUTROPHILS ABSOLUTE COUNT (BEAKER) (test 8.20 K/ L 1.78-5.38 tmyl=130) LYMPHOCYTES ABSOLUTE COUNT (BEAKER) (test 0.61 K/ L 1.32-3.57 lghf=539) MONOCYTES ABSOLUTE COUNT (BEAKER) (test 0.79 K/ L 0.30-0.82 ejip=220) EOSINOPHILS ABSOLUTE COUNT (BEAKER) (test 0.18 K/ L 0.04-0.54 jyzx=852) BASOPHILS ABSOLUTE COUNT (BEAKER) (test 0.06 K/ L 0.01-0.08 sbxq=295) IMMATURE GRANULOCYTES-RELATIVE PERCENT (BEAKER) 1 % 0-1 (test isyy=1931) PROTHROMBIN [id number] 06:14:00 Test Item Value Reference Range Comments PROTIME (BEAKER) (test tblw=524) 19.5 seconds 11.9-14.2 INR (BEAKER) (test ndgd=015) 1.8 <=5.9 Effective 07/29/2018: PT Reference Range ChangeNew: 11.9-14.2 Previous: 11.7- 14.7RECOMMENDED COUMADIN/WARFARIN INR THERAPY RANGESSTANDARD DOSE: 2.0-3.0 Includes: PROPHYLAXIS for venous thrombosis, systemic embolization; TREATMENT for venous thrombosis and/or pulmonary embolus.HIGH RISK: Target INR is2.5-3.5 for patients wiht mechanical heart valves.While on warfarin.[id number] 06:14 :00 Test Item Value Reference Range Comments PARTIAL THROMBOPLASTIN TIME (BEAKER) (test 77.3 seconds 22.5-36.0 xuhz=197) POCT-GLUCOSE [id number] 21:26:00 Test Item Value Reference Range Comments POC-GLUCOSE METER (BEAKER) 147 mg/dL 70-110 TESTED AT [facility] [address] [facility] (test vqnx=4570) [facility] [address] POCT-GLUCOSE [id number] 17:59:00 Test Item Value Reference Range Comments POC-GLUCOSE METER (BEAKER) 114 mg/dL 70-110 TESTED AT [facility] [address] [facility] (test sino=3675) [facility] [address] POCT-GLUCOSE [id number] 14:16:00 Test Item Value Reference Range Comments POC-GLUCOSE METER (BEAKER) 141 mg/dL 70-110 TESTED AT [facility] [address] [facility] (test glox=5918) [facility] [address] CBC W/PLT COUNT & AUTO [id number] 12:14:00 Test Item Value Reference Range Comments WHITE BLOOD CELL COUNT (BEAKER) (test plqm=435) 12.0 K/ L 3.5-10.5 RED BLOOD CELL COUNT (BEAKER) (test ekdj=050) 3.31 M/ L 4.63-6.08 HEMOGLOBIN (BEAKER) (test yknc=907) 10.5 GM/DL 13.7-17.5 HEMATOCRIT (BEAKER) (test ylvz=982) 32.9 % 40.1-51.0 MEAN CORPUSCULAR VOLUME (BEAKER) (test hmlq=468) 99.4 fL 79.0-92.2 MEAN CORPUSCULAR HEMOGLOBIN (BEAKER) (test 31.7 pg 25.7-32.2 rurs=822) MEAN CORPUSCULAR HEMOGLOBIN CONC (BEAKER) (test 31.9 GM/DL 32.3-36.5 ucwp=047) RED CELL DISTRIBUTION WIDTH (BEAKER) (test 18.6 % 11.6-14.4 dnoe=843) PLATELET COUNT (BEAKER) (test ujvf=101) 247 K/CU MM 150-450 MEAN PLATELET VOLUME (BEAKER) (test xanw=337) 11.0 fL 9.4-12.4 NUCLEATED RED BLOOD CELLS (BEAKER) (test 0 /100 WBC 0-0 qupd=165) NEUTROPHILS RELATIVE PERCENT (BEAKER) (test 85 % qrgw=797) LYMPHOCYTES RELATIVE PERCENT (BEAKER) (test 7 % tfyw=798) MONOCYTES RELATIVE PERCENT (BEAKER) (test 6 % tqad=143) EOSINOPHILS RELATIVE PERCENT (BEAKER) (test 1 % gsyx=572) BASOPHILS RELATIVE PERCENT (BEAKER) (test 0 % jcjn=401) NEUTROPHILS ABSOLUTE COUNT (BEAKER) (test 10.21 K/ L 1.78-5.38 nxwm=308) LYMPHOCYTES ABSOLUTE COUNT (BEAKER) (test 0.78 K/ L 1.32-3.57 xmib=330) MONOCYTES ABSOLUTE COUNT (BEAKER) (test 0.72 K/ L 0.30-0.82 ctbj=857) EOSINOPHILS ABSOLUTE COUNT (BEAKER) (test 0.16 K/ L 0.04-0.54 srdo=435) BASOPHILS ABSOLUTE COUNT (BEAKER) (test 0.05 K/ L 0.01-0.08 whpe=822) IMMATURE GRANULOCYTES-RELATIVE PERCENT (BEAKER) 1 % 0-1 (test tsgy=0868) POCT-GLUCOSE [id number] 11:22:00 Test Item Value Reference Range Comments POC-GLUCOSE METER (BEAKER) 137 mg/dL 70-110 TESTED AT [address] (test dcxd=4898) [place] [id number] POCT-GLUCOSE [id number] 09:39:00 Test Item Value Reference Range Comments POC-GLUCOSE METER (BEAKER) 118 mg/dL 70-110 TESTED AT [address] (test gfws=7988) [facility] [address] [id number] 07:36:00 Test Item Value Reference Range Comments PARTIAL THROMBOPLASTIN TIME (BEAKER) (test 67.9 seconds 22.5-36.0 jrlj=405) While on warfarin.COMPREHENSIVE METABOLIC [id number] 06:51:00 Test Item Value Reference Range Comments TOTAL PROTEIN (BEAKER) 6.1 gm/dL 6.0-8.3 (test zlqk=194) ALBUMIN (BEAKER) (test 3.1 g/dL 3.5-5.0 ltbq=2861) ALKALINE PHOSPHATASE 131 U/L 40-150 (BEAKER) (test zqix=000) BILIRUBIN TOTAL (BEAKER) 2.7 mg/dL 0.2-1.2 (test knpk=943) SODIUM (BEAKER) (test 132 meq/L 136-145 hrjk=795) POTASSIUM (BEAKER) (test 4.9 meq/L 3.5-5.1 culh=734) CHLORIDE (BEAKER) (test 95 meq/L 98-107 bjig=186) CO2 (BEAKER) (test 25 meq/L 22-29 rpsj=684) BLOOD UREA NITROGEN 59 mg/dL 7-21 (BEAKER) (test hwoz=914) CREATININE (BEAKER) (test 7.24 mg/dL 0.57-1.25 mexq=219) GLUCOSE RANDOM (BEAKER) 138 mg/dL 70-105 (test ytdr=195) CALCIUM (BEAKER) (test 9.3 mg/dL 8.4-10.2 ndkp=562) AST (SGOT) (BEAKER) (test 38 U/L 5-34 npof=133) ALT (SGPT) (BEAKER) (test 86 U/L 6-55 tdwc=238) EGFR (BEAKER) (test 7 mL/min/1.73 sq m ESTIMATED GFR IS NOT wppo=1032) ACCURATE CREATININE CLEARANCE IN PREDICTING GLOMERULAR FILTRATION RATE. ESTIMATED GFR IS NOT APPLICABLE FOR DIALYSIS PATIENTS. Specimen slightly [id number] 06:32:00 Test Item Value Reference Range Comments MAGNESIUM (BEAKER) (test dcne=360) 3.2 mg/dL 1.6-2.6 CBC W/PLT COUNT & AUTO [id number] 05:57:00 Test Item Value Reference Range Comments WHITE BLOOD CELL COUNT (BEAKER) (test gcfd=690) 11.3 K/ L 3.5-10.5 RED BLOOD CELL COUNT (BEAKER) (test dpts=053) 3.34 M/ L 4.63-6.08 HEMOGLOBIN (BEAKER) (test wvzk=537) 10.4 GM/DL 13.7-17.5 HEMATOCRIT (BEAKER) (test enht=143) 32.9 % 40.1-51.0 MEAN CORPUSCULAR VOLUME (BEAKER) (test tlxu=271) 98.5 fL 79.0-92.2 MEAN CORPUSCULAR HEMOGLOBIN (BEAKER) (test 31.1 pg 25.7-32.2 gbmf=327) MEAN CORPUSCULAR HEMOGLOBIN CONC (BEAKER) (test 31.6 GM/DL 32.3-36.5 ayex=006) RED CELL DISTRIBUTION WIDTH (BEAKER) (test 18.6 % 11.6-14.4 cmrt=127) PLATELET COUNT (BEAKER) (test ldmp=936) 206 K/CU MM 150-450 MEAN PLATELET VOLUME (BEAKER) (test katf=826) 10.8 fL 9.4-12.4 NUCLEATED RED BLOOD CELLS (BEAKER) (test 0 /100 WBC 0-0 kqhy=670) NEUTROPHILS RELATIVE PERCENT (BEAKER) (test 85 % lxnq=233) LYMPHOCYTES RELATIVE PERCENT (BEAKER) (test 6 % qkxt=297) MONOCYTES RELATIVE PERCENT (BEAKER) (test 6 % olth=367) EOSINOPHILS RELATIVE PERCENT (BEAKER) (test 2 % odwi=322) BASOPHILS RELATIVE PERCENT (BEAKER) (test 1 % efbe=658) NEUTROPHILS ABSOLUTE COUNT (BEAKER) (test 9.61 K/ L 1.78-5.38 byun=355) LYMPHOCYTES ABSOLUTE COUNT (BEAKER) (test 0.63 K/ L 1.32-3.57 nccs=753) MONOCYTES ABSOLUTE COUNT (BEAKER) (test 0.72 K/ L 0.30-0.82 chiv=838) EOSINOPHILS ABSOLUTE COUNT (BEAKER) (test 0.18 K/ L 0.04-0.54 aagl=200) BASOPHILS ABSOLUTE COUNT (BEAKER) (test 0.06 K/ L 0.01-0.08 gpxt=955) IMMATURE GRANULOCYTES-RELATIVE PERCENT (BEAKER) 1 % 0-1 (test qscr=1854) PROTHROMBIN [id number] 05:52:00 Test Item Value Reference Range Comments PROTIME (BEAKER) (test uvxd=750) 23.2 seconds 11.9-14.2 INR (BEAKER) (test mvsc=387) 2.2 <=5.9 Effective 07/29/2018: PT Reference Range ChangeNew: 11.9-14.2 Previous: 11.7- 14.7RECOMMENDED COUMADIN/WARFARIN INR THERAPY RANGESSTANDARD DOSE: 2.0-3.0 Includes: PROPHYLAXIS for venous thrombosis, systemic embolization; TREATMENT for venous thrombosis and/or pulmonary embolus.HIGH RISK: Target INR is2.5-3.5 for patients wiht mechanical heart valves.While on warfarin.POCT-GLUCOSE [id number] 21:23:00 Test Item Value Reference Range Comments POC-GLUCOSE METER (BEAKER) 156 mg/dL 70-110 TESTED AT [facility] [address] [facility] (test fmub=4243) [facility] [address] POCT-GLUCOSE [id number] 17:07:00 Test Item Value Reference Range Comments POC-GLUCOSE METER (BEAKER) 158 mg/dL 70-110 TESTED AT [address] (test fbqk=7360) [facility] [address] [id number] 13:25:00 Test Item Value Reference Range Comments PARTIAL THROMBOPLASTIN TIME (BEAKER) (test 89.3 seconds 22.5-36.0 ndhy=920) POCT-GLUCOSE [id number] 12:20:00 Test Item Value Reference Range Comments POC-GLUCOSE METER (BEAKER) 167 mg/dL 70-110 TESTED AT [address] (test ytrc=3734) [facility] [address] POCT-GLUCOSE [id number] 07:42:00 Test Item Value Reference Range Comments POC-GLUCOSE METER (BEAKER) 132 mg/dL 70-110 TESTED AT [address] (test nbns=8020) [facility] [address] COMPREHENSIVE METABOLIC [id number] 07:04:00 Test Item Value Reference Range Comments TOTAL PROTEIN (BEAKER) 6.6 gm/dL 6.0-8.3 (test ldxn=537) ALBUMIN (BEAKER) (test 3.4 g/dL 3.5-5.0 nhjc=0350) ALKALINE PHOSPHATASE 131 U/L 40-150 (BEAKER) (test gnog=131) BILIRUBIN TOTAL (BEAKER) 3.4 mg/dL 0.2-1.2 (test pmaq=724) SODIUM (BEAKER) (test 131 meq/L 136-145 rdkl=040) POTASSIUM (BEAKER) (test 4.4 meq/L 3.5-5.1 jvpt=238) CHLORIDE (BEAKER) (test 95 meq/L 98-107 qtpy=235) CO2 (BEAKER) (test 23 meq/L 22-29 dtfq=370) BLOOD UREA NITROGEN 47 mg/dL 7-21 (BEAKER) (test eerb=813) CREATININE (BEAKER) (test 6.18 mg/dL 0.57-1.25 qaej=698) GLUCOSE RANDOM (BEAKER) 120 mg/dL 70-105 (test hvaq=380) CALCIUM (BEAKER) (test 9.4 mg/dL 8.4-10.2 lhxj=003) AST (SGOT) (BEAKER) (test 40 U/L 5-34 cffz=493) ALT (SGPT) (BEAKER) (test 101 U/L 6-55 nvfg=108) EGFR (BEAKER) (test 9 mL/min/1.73 sq m ESTIMATED GFR IS NOT ysle=2246) ACCURATE CREATININE CLEARANCE IN PREDICTING GLOMERULAR FILTRATION RATE. ESTIMATED GFR IS NOT APPLICABLE FOR DIALYSIS PATIENTS. Specimen slightly [id number] 07:01:00 Test Item Value Reference Range Comments MAGNESIUM (BEAKER) (test rlbc=845) 2.8 mg/dL 1.6-2.6 PROTHROMBIN [id number] 06:40:00 Test Item Value Reference Range Comments PROTIME (BEAKER) (test qubw=673) 18.5 seconds 11.9-14.2 INR (BEAKER) (test qozi=248) 1.6 <=5.9 Effective 07/29/2018: PT Reference Range ChangeNew: 11.9-14.2 Previous: 11.7- 14.7RECOMMENDED COUMADIN/WARFARIN INR THERAPY RANGESSTANDARD DOSE: 2.0-3.0 Includes: PROPHYLAXIS for venous thrombosis, systemic embolization; TREATMENT for venous thrombosis and/or pulmonary embolus.HIGH RISK: Target INR is2.5-3.5 for patients wiht mechanical heart valves.While on warfarin.CBC W/PLT COUNT &amp ; AUTO [id number] 06:36:00 Test Item Value Reference Range Comments WHITE BLOOD CELL COUNT (BEAKER) (test ikwy=402) 11.2 K/ L 3.5-10.5 RED BLOOD CELL COUNT (BEAKER) (test afim=555) 3.72 M/ L 4.63-6.08 HEMOGLOBIN (BEAKER) (test alrb=269) 11.7 GM/DL 13.7-17.5 HEMATOCRIT (BEAKER) (test oein=520) 38.3 % 40.1-51.0 MEAN CORPUSCULAR VOLUME (BEAKER) (test kpck=116) 103.0 fL 79.0-92.2 MEAN CORPUSCULAR HEMOGLOBIN (BEAKER) (test 31.5 pg 25.7-32.2 mcqd=665) MEAN CORPUSCULAR HEMOGLOBIN CONC (BEAKER) (test 30.5 GM/DL 32.3-36.5 mtac=469) RED CELL DISTRIBUTION WIDTH (BEAKER) (test 19.1 % 11.6-14.4 gule=001) PLATELET COUNT (BEAKER) (test nbvs=192) 205 K/CU MM 150-450 MEAN PLATELET VOLUME (BEAKER) (test znzl=622) 11.3 fL 9.4-12.4 NUCLEATED RED BLOOD CELLS (BEAKER) (test 0 /100 WBC 0-0 dafg=893) NEUTROPHILS RELATIVE PERCENT (BEAKER) (test 82 % iong=367) LYMPHOCYTES RELATIVE PERCENT (BEAKER) (test 7 % moyx=212) MONOCYTES RELATIVE PERCENT (BEAKER) (test 8 % qeql=444) EOSINOPHILS RELATIVE PERCENT (BEAKER) (test 1 % lhvf=603) BASOPHILS RELATIVE PERCENT (BEAKER) (test 1 % ikjb=497) NEUTROPHILS ABSOLUTE COUNT (BEAKER) (test 9.19 K/ L 1.78-5.38 equs=508) LYMPHOCYTES ABSOLUTE COUNT (BEAKER) (test 0.79 K/ L 1.32-3.57 pakh=275) MONOCYTES ABSOLUTE COUNT (BEAKER) (test 0.86 K/ L 0.30-0.82 aqpz=449) EOSINOPHILS ABSOLUTE COUNT (BEAKER) (test 0.16 K/ L 0.04-0.54 hbyp=628) BASOPHILS ABSOLUTE COUNT (BEAKER) (test 0.07 K/ L 0.01-0.08 ujzf=266) IMMATURE GRANULOCYTES-RELATIVE PERCENT (BEAKER) 1 % 0-1 (test detc=4342) POCT-GLUCOSE [id number] 22:24:00 Test Item Value Reference Range Comments POC-GLUCOSE METER (BEAKER) 152 mg/dL 70-110 TESTED AT [facility] [address] [facility] (test bjuv=1927) [facility] [address] POCT-GLUCOSE [id number] 17:15:00 Test Item Value Reference Range Comments POC-GLUCOSE METER (BEAKER) 157 mg/dL 70-110 TESTED AT [facility] [address] [facility] (test lssm=7300) [facility] [address] RAD, CHEST, 1 VIEW, NON [id number] 15:38:00Reason for exam:->coughShould this be performed at the bedside?->YesFINAL REPORT Portable chest. CLINICAL HISTORY: cough. COMPARISON STUDY: July 31, 2018. FINDINGS: The cardiac silhouette is enlarged. The pulmonary parenchyma demonstrates mild interstitial markings. A left jugular line remains. No pneumothorax is seen. Degenerative changes are noted. IMPRESSION: No significant change. Signed: Daniel Gibbs MDReport Verified Date/Time: 2018 15:38:51 Reading Location: [facility] [id number] Ortho Consult Reading Room POCT- GLUCOSE [id number] 07:50:00 Test Item Value Reference Range Comments POC-GLUCOSE METER (BEAKER) 132 mg/dL 70-110 TESTED AT [facility] [address] [facility] (test oyru=8755) [facility] [address] COMPREHENSIVE METABOLIC [id number] 07:16:00 Test Item Value Reference Range Comments TOTAL PROTEIN (BEAKER) 6.1 gm/dL 6.0-8.3 (test cbmn=553) ALBUMIN (BEAKER) (test 3.1 g/dL 3.5-5.0 ccio=5724) ALKALINE PHOSPHATASE 123 U/L 40-150 (BEAKER) (test nnmg=624) BILIRUBIN TOTAL (BEAKER) 3.1 mg/dL 0.2-1.2 (test axwk=182) SODIUM (BEAKER) (test 136 meq/L 136-145 hgyn=556) POTASSIUM (BEAKER) (test 4.0 meq/L 3.5-5.1 aocj=205) CHLORIDE (BEAKER) (test 99 meq/L 98-107 uzgl=888) CO2 (BEAKER) (test 27 meq/L 22-29 pdqy=309) BLOOD UREA NITROGEN 37 mg/dL 7-21 (BEAKER) (test ijoh=673) CREATININE (BEAKER) (test 5.17 mg/dL 0.57-1.25 toki=338) GLUCOSE RANDOM (BEAKER) 155 mg/dL 70-105 (test myxs=598) CALCIUM (BEAKER) (test 9.2 mg/dL 8.4-10.2 pvtc=117) AST (SGOT) (BEAKER) (test 53 U/L 5-34 rqnz=385) ALT (SGPT) (BEAKER) (test 124 U/L 6-55 yveh=844) EGFR (BEAKER) (test 11 mL/min/1.73 sq m ESTIMATED GFR IS NOT onfo=2327) ACCURATE CREATININE CLEARANCE IN PREDICTING GLOMERULAR FILTRATION RATE. ESTIMATED GFR IS NOT APPLICABLE FOR DIALYSIS PATIENTS. Specimen slightly [id number] 07:02:00 Test Item Value Reference Range Comments PHOSPHORUS (BEAKER) (test sprr=803) 4.3 mg/dL 2.3-4.7 [id number] 07:02:00 Test Item Value Reference Range Comments MAGNESIUM (BEAKER) (test hgwo=065) 2.5 mg/dL 1.6-2.6 CBC W/PLT COUNT & AUTO [id number] 06:31:00 Test Item Value Reference Range Comments WHITE BLOOD CELL COUNT (BEAKER) (test tglc=016) 10.8 K/ L 3.5-10.5 RED BLOOD CELL COUNT (BEAKER) (test vlgr=526) 3.47 M/ L 4.63-6.08 HEMOGLOBIN (BEAKER) (test vgfr=421) 10.7 GM/DL 13.7-17.5 HEMATOCRIT (BEAKER) (test ndif=989) 34.7 % 40.1-51.0 MEAN CORPUSCULAR VOLUME (BEAKER) (test qaek=079) 100.0 fL 79.0-92.2 MEAN CORPUSCULAR HEMOGLOBIN (BEAKER) (test 30.8 pg 25.7-32.2 bwco=632) MEAN CORPUSCULAR HEMOGLOBIN CONC (BEAKER) (test 30.8 GM/DL 32.3-36.5 nwfy=208) RED CELL DISTRIBUTION WIDTH (BEAKER) (test 19.4 % 11.6-14.4 haql=343) PLATELET COUNT (BEAKER) (test jdxy=586) 179 K/CU MM 150-450 MEAN PLATELET VOLUME (BEAKER) (test tlio=635) 11.0 fL 9.4-12.4 NUCLEATED RED BLOOD CELLS (BEAKER) (test 0 /100 WBC 0-0 useg=842) NEUTROPHILS RELATIVE PERCENT (BEAKER) (test 82 % ehko=088) LYMPHOCYTES RELATIVE PERCENT (BEAKER) (test 6 % hykx=760) MONOCYTES RELATIVE PERCENT (BEAKER) (test 10 % ffmc=346) EOSINOPHILS RELATIVE PERCENT (BEAKER) (test 2 % mksa=365) BASOPHILS RELATIVE PERCENT (BEAKER) (test 0 % riyg=061) NEUTROPHILS ABSOLUTE COUNT (BEAKER) (test 8.79 K/ L 1.78-5.38 xcvq=335) LYMPHOCYTES ABSOLUTE COUNT (BEAKER) (test 0.67 K/ L 1.32-3.57 qxhi=538) MONOCYTES ABSOLUTE COUNT (BEAKER) (test 1.03 K/ L 0.30-0.82 yppd=082) EOSINOPHILS ABSOLUTE COUNT (BEAKER) (test 0.16 K/ L 0.04-0.54 lvjo=576) BASOPHILS ABSOLUTE COUNT (BEAKER) (test 0.03 K/ L 0.01-0.08 ygmv=837) IMMATURE GRANULOCYTES-RELATIVE PERCENT (BEAKER) 1 % 0-1 (test yeun=3389) [id number] 06:22:00 Test Item Value Reference Range Comments PROTIME (BEAKER) (test dype=015) 17.6 seconds 11.9-14.2 INR (BEAKER) (test zypo=477) 1.5 <=5.9 PARTIAL THROMBOPLASTIN TIME (BEAKER) (test 69.4 seconds 22.5-36.0 kmqd=222) Effective 07/29/2018: PT Reference Range ChangeNew: 11.9-14.2 Previous: 11.7- 14.7RECOMMENDED COUMADIN/WARFARIN INR THERAPY RANGESSTANDARD DOSE: 2.0-3.0 Includes: PROPHYLAXIS for venous thrombosis, systemic embolization; TREATMENT for venous thrombosis and/or pulmonary embolus.HIGH RISK: Target INR is2.5-3.5 for patients wiht mechanical heart valves.While on warfarin.While on warfarin.PROTHROMBIN [id number] 06:21:00 Test Item Value Reference Range Comments PROTIME (BEAKER) (test lcyx=936) 17.6 seconds 11.9-14.2 INR (BEAKER) (test ehqx=417) 1.5 <=5.9 Effective 07/29/2018: PT Reference Range ChangeNew: 11.9-14.2 Previous: 11.7- 14.7RECOMMENDED COUMADIN/WARFARIN INR THERAPY RANGESSTANDARD DOSE: 2.0-3.0 Includes: PROPHYLAXIS for venous thrombosis, systemic embolization; TREATMENT for venous thrombosis and/or pulmonary embolus.HIGH RISK: Target INR is2.5-3.5 for patients wiht mechanical heart valves.POCT-GLUCOSE [id number] 21:12:00 Test Item Value Reference Range Comments POC-GLUCOSE METER (BEAKER) 129 mg/dL 70-110 TESTED AT [facility] [address] [facility] (test jmee=2286) [facility] [address] POCT-GLUCOSE [id number] 17:43:00 Test Item Value Reference Range Comments POC-GLUCOSE METER (BEAKER) 192 mg/dL 70-110 TESTED AT [facility] [address] [facility] (test mmdv=6242) [facility] [address] ANG, AV-SHUNT, CATH INTRO WITH [id number] 16:46:00Reason for exam:-> clotted AVFFINAL REPORT Left upper extremity AV fistula declot. History: Thrombosed left upper extremity AV fistula. Modality: Ultrasound and fluoroscopy Sedation: None Anesthesia: Two percent Lidocaine without epinephrine. Approach: Left upper extremity AV fistula Estimated blood loss: < 5 cc. Specimen: None. acetaldehyde converter operator: Jean-Claude Jones MD. Cardiac Sonographer: MD Deshaun. Fluoroscopy Time: 12.6 min.Reference Air Kerma (Ka, r): 50.1 mGy. Technique: Informed written consent was obtained. Discussion of risks , benefits, and alternatives were made with the patient. The patient expressed understanding and agreed to proceed. A universal timeout was performedprior to starting the procedure. All elements maximal sterile barrier technique was utilized for this procedure, including utilization of sterile scrub solution for skin prep, a large sterile sheet tocover the areas of the patient that were not prepped, and hand hygiene, mask, head covering, and sterile gown for performing radiologist and scrub technologist. Ultrasound of the patient's left upper extremity AV fistula demonstrated that it was thrombosed and noncompressible. This patient's skin was locally anesthetized with lidocaine 1% . 1st a 21-gauge micropuncture needle was used [...] was removed. An 8 x 4 cm [place] balloon was then used to macerate the [...] angioplasty and mechanical thrombectomy. 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 Suggest repeat testing in 12 weeks and when patient not receiving anticoagulant therapy. PROTIME (BEAKER) (test 14.9 seconds 11.9-14.2 nbrm=185) INR (BEAKER) (test cpyk=612) 1.2 <=5.9 PARTIAL THROMBOPLASTIN TIME 44.9 seconds 22.5-36.0 (BEAKER) (test grvl=737) PTT-LA (BEAKER) (test 55.1 32.0-41.8 accp=[id number]) SVMM-IRGMCTKOWXG-797 (BEAKER) Maynor Hayward M.D. (test kfpx=7924) (electonic signature) HEXAGONAL [id number] 13:24:00 Test Item Value Reference Range Comments HEXAGONAL PHOSPHOLIPID (BEAKER) (test rlce=0763) Positive POCT-GLUCOSE [id number] 12:57:00 Test Item Value Reference Range Comments POC-GLUCOSE METER (BEAKER) 93 mg/dL 70-110 TESTED AT [facility] [address] [facility] (test dobr=2857) [facility] [address] COMPREHENSIVE METABOLIC [id number] 12:54:00 Test Item Value Reference Range Comments TOTAL PROTEIN (BEAKER) 6.3 gm/dL 6.0-8.3 (test sodt=149) ALBUMIN (BEAKER) (test 3.1 g/dL 3.5-5.0 mres=0186) ALKALINE PHOSPHATASE 128 U/L 40-150 (BEAKER) (test xqkm=517) BILIRUBIN TOTAL (BEAKER) 3.9 mg/dL 0.2-1.2 (test ukku=068) SODIUM (BEAKER) (test 138 meq/L 136-145 egls=152) POTASSIUM (BEAKER) (test 3.5 meq/L 3.5-5.1 byxa=218) CHLORIDE (BEAKER) (test 101 meq/L 98-107 aybn=674) CO2 (BEAKER) (test 28 meq/L 22-29 wkaj=061) BLOOD UREA NITROGEN 22 mg/dL 7-21 (BEAKER) (test krcz=771) CREATININE (BEAKER) (test 3.20 mg/dL 0.57-1.25 dvpc=102) GLUCOSE RANDOM (BEAKER) 103 mg/dL 70-105 (test zidw=875) CALCIUM (BEAKER) (test 9.2 mg/dL 8.4-10.2 hgqo=134) AST (SGOT) (BEAKER) (test 54 U/L 5-34 xrao=037) ALT (SGPT) (BEAKER) (test 133 U/L 6-55 ijzg=226) EGFR (BEAKER) (test 19 mL/min/1.73 sq m ESTIMATED GFR IS NOT nxgo=9111) ACCURATE CREATININE CLEARANCE IN PREDICTING GLOMERULAR FILTRATION RATE. ESTIMATED GFR IS NOT APPLICABLE FOR DIALYSIS PATIENTS. Specimen moderately [id number] 12:37:00 Test Item Value Reference Range Comments MAGNESIUM (BEAKER) (test eoie=574) 1.8 mg/dL 1.6-2.6 POCT-GLUCOSE [id number] 11:49:00 Test Item Value Reference Range Comments POC-GLUCOSE METER (BEAKER) 86 mg/dL 70-110 TESTED AT [facility] [address] [facility] (test ljqj=4881) [facility] [address] [id number] 11:48:00 Test Item Value Reference Range Comments PROTIME (BEAKER) (test phgv=180) 17.4 seconds 11.9-14.2 INR (BEAKER) (test gbxi=400) 1.5 <=5.9 PARTIAL THROMBOPLASTIN TIME (BEAKER) (test 66.0 seconds 22.5-36.0 vmnv=045) Effective 07/29/2018: PT Reference Range ChangeNew: 11.9-14.2 Previous: 11.7- 14.7RECOMMENDED COUMADIN/WARFARIN INR THERAPY RANGESSTANDARD DOSE: 2.0-3.0 Includes: PROPHYLAXIS for venous thrombosis, systemic embolization; TREATMENT for venous thrombosis and/or pulmonary embolus.HIGH RISK: Target INR is2.5-3.5 for patients wiht mechanical heart valves.CBC W/PLT COUNT & AUTO [id number] 11:40:00 Test Item Value Reference Range Comments WHITE BLOOD CELL COUNT (BEAKER) (test bcqo=565) 11.2 K/ L 3.5-10.5 RED BLOOD CELL COUNT (BEAKER) (test ykin=140) 3.51 M/ L 4.63-6.08 HEMOGLOBIN (BEAKER) (test khgs=590) 11.2 GM/DL 13.7-17.5 HEMATOCRIT (BEAKER) (test qcxs=947) 34.1 % 40.1-51.0 MEAN CORPUSCULAR VOLUME (BEAKER) (test beom=946) 97.2 fL 79.0-92.2 MEAN CORPUSCULAR HEMOGLOBIN (BEAKER) (test 31.9 pg 25.7-32.2 joxc=445) MEAN CORPUSCULAR HEMOGLOBIN CONC (BEAKER) (test 32.8 GM/DL 32.3-36.5 zrnz=137) RED CELL DISTRIBUTION WIDTH (BEAKER) (test 19.6 % 11.6-14.4 drwz=899) PLATELET COUNT (BEAKER) (test wzyt=767) 138 K/CU MM 150-450 MEAN PLATELET VOLUME (BEAKER) (test lgmf=589) 10.7 fL 9.4-12.4 NUCLEATED RED BLOOD CELLS (BEAKER) (test 0 /100 WBC 0-0 vevk=913) NEUTROPHILS RELATIVE PERCENT (BEAKER) (test 81 % igbi=711) LYMPHOCYTES RELATIVE PERCENT (BEAKER) (test 7 % wsrd=316) MONOCYTES RELATIVE PERCENT (BEAKER) (test 10 % pbhl=510) EOSINOPHILS RELATIVE PERCENT (BEAKER) (test 2 % dkmg=431) BASOPHILS RELATIVE PERCENT (BEAKER) (test 0 % kxik=399) NEUTROPHILS ABSOLUTE COUNT (BEAKER) (test 9.02 K/ L 1.78-5.38 unid=388) LYMPHOCYTES ABSOLUTE COUNT (BEAKER) (test 0.73 K/ L 1.32-3.57 txhi=229) MONOCYTES ABSOLUTE COUNT (BEAKER) (test 1.09 K/ L 0.30-0.82 grtz=530) EOSINOPHILS ABSOLUTE COUNT (BEAKER) (test 0.21 K/ L 0.04-0.54 uujj=933) BASOPHILS ABSOLUTE COUNT (BEAKER) (test 0.03 K/ L 0.01-0.08 fwcy=164) IMMATURE GRANULOCYTES-RELATIVE PERCENT (BEAKER) 1 % 0-1 (test anef=6469) 1:1 MIXING STUDY, [id number] 11:18:00 Test Item Value Reference Range Comments PROTIME (BEAKER) (test lrnp=704) 14.9 seconds 11.9-14.2 PARTIAL THROMBOPLASTIN TIME (BEAKER) (test 44.9 seconds 22.5-36.0 qxrk=010) PT 1/1 MIX (BEAKER) (test isjd=0068) 13.6 SECS 11.7-14.7 PTT 1/1 MIX (BEAKER) (test xpcn=9054) 34.8 SECS 22.5-36.0 THROMBIN [id number] 10:46:00 Test Item Value Reference Range Comments THROMBIN TIME (BEAKER) (test phdn=743) 23.0 secs 13.8-20.0 POCT-GLUCOSE [id number] 21:46:00 Test Item Value Reference Range Comments POC-GLUCOSE METER (MARTIR) 169 mg/dL 70-110 TESTED AT [facility] [address] (test scpa=6099) [facility] [address] CT, CTA, [id number] 18:58:00Addendum BeginsREPORT STATUS:A ADDENDUM: Study reviewed by radiology. Agree with the nonvascular findings as described below. 1.4 cm right upper lobe groundglass opacity with ill-defined margins may be followed with CT in 6 months. Signed: Gallo Delgado MDReport Verified Date/Time: 08/06/2018 18:58:59 Reading Location: [place] [address] Angio Body Reading RoomAddendum EndsFINAL REPORT CT angiography of the thoracoabdominal aorta [...] Dose modulation, iterative reconstruction, and/or weight based adjustmentof the mA/kV was utilized to reduce the radiation dose to as low as reasonably achievable. FINDINGS: VASCULAR: The pericardium appears unremarkable. No pericardial effusion is identified. A central venous catheter is seen, with tip in the SVC. In addition, there is also another linear structure identified, in the right brachiocephalic vein, for length of approximately 2.7 cm. It is uncertain if thiscould represent a fragment of a catheter versus [...] present. There are single left and right renalarteries that are widely patent proximally and nonobstructive calcification is identified. The coeliac axis is widely patent, and the hepatic and splenic arteries also widely patent though diffuse calcification is seen in the splenic artery. The SMA is widely patent. The NURY is patent. Single left and right renal veins are seen draining normally into the IVC. The common iliac, external iliac, common femoral , and the visualized superficial femoral arteries, bilaterally, are widely patent. Scatteredcalcification is identified in the common iliac level, with no stenosis present. Dimensions that maybe helpful for TAVR as follows: The thoracic aorta is overall has minimal calcification identified in the aortic root. Thereafter the ascending thoracic aorta is free of calcification. The major and minor aortic annulus diameter measures 29.0 and 23.2 mm, respectively. The aortic annulus perimeter measured 82 mm and the cross- sectional area measures 521 mm2. The aortic annulus [...] are as follows: CT perimeter between 56.5-62.8 mm(23 mm valve); 62.8-72.3 mm (26 mm valve); 72.3-81.7 mm (29 mm valve); and 81.7-94.2. mm (34 mm valve). Agatston Score is 2589. The aortic valve area is 69 mm2. The sinus of Valsalva height, RCC (diastole): 13.3 mmThe sinus of Valsalva height, LCC (diastole): 11.1 mm The sinus of Valsalva diameter, RCC (diastole): 32.3 mmThe sinus of Valsalva diameter, LCC (diastole) : 33.3 mmThe sinus of Valsalva diameter, NCC (diastole): 32.7 mm The sinotubular junction measures 29.2 x 29.3 mm. The aortic root angulation measures 45.4 degrees. The angle of delivery is MOZAMBICAN 5 CAU 19. The minimal and perpendicular [...] of the left SFA, is at image 603,immediately below the mid level of the left femoral head. The minimum and the perpendicular right common iliac artery measures 7.6 and 10.3 mm , respectively with mild tortuosity and mild calcific atherosclerosis present. The minimum and the perpendicular right external iliac artery measures 7.4 and7.8 mm, respectively with mild to moderate tortuosity and minimal calcific atherosclerosis present. The minimum and the perpendicular right femoral artery measures 6.1 and 7.1 mm, respectively with minimal tortuosity and mild calcific atherosclerosis present. The takeoff of the right SFA, is at image 610, below the mid level of the right femoral head. NON- VASCULAR: The visualised thyroid gland appears unremarkable. The chest wall and mediastinum appear normal. There are number of lymph nodes identified in the mediastinum, the numbers are more than expected. Much of them are small in size. More prominent one has fatty hilum identified, and is also calcified lymph nodes seen in the right hilumoverall suggesting prior granulomatous disease. In the lung windows, no obvious endobronchial lesionis seen and no pleural effusion is identified. [...] in size and shape. No hydronephrosis or perirenalfluid collection is identified. No acute renal pathology [...] air is identified. Mild subcutaneous oedema/anasarca is present.No acute bony pathology is seen; mild degenerative changes is present. CONCLUSIONS: 1. Patient hasa diagnosis of aortic stenosis. The aortic valve [...] may be helpful for TAVR as described above.2. Coronary artery origins are normal and diffuse artery calcification identified. 3. The central pulmonary artery is mildly prominent. Patchy groundglass opacity is identified in the right upper lobe. Evidence of prior granulomatous disease. 4. Other findings as described above. 5. An addendum will be dictated regarding the non-vascular findings by the Content Strategy Lead Radiologist. Signed: Edgar Torres Verified Date/Time : 08/06/2018 17:20:23 Reading Location: [facility] [address], CTA [id number] 18:58:00Addendum BeginsREPORT STATUS:A ADDENDUM: Study reviewed by radiology. Agree with the nonvascular findings as described below. 1.4 cm right upper lobe groundglass opacity with ill-defined margins may be followed with CT in 6 months. Signed: Gallo Delgado Verified Date/Time: 08/06/2018 18:58:59 Reading Location: [facility] [address] Angio Body Reading RoomAddendum EndsFINAL REPORT CT angiography of the thoracoabdominal aorta [...] Dose modulation, iterative reconstruction, and/or weight based adjustmentof the mA/kV was utilized to reduce the radiation dose to as low as reasonably achievable. FINDINGS: VASCULAR: The pericardium appears unremarkable. No pericardial effusion is identified. A central venous catheter is seen, with tip in the SVC. In addition, there is also another linear structure identified, in the right brachiocephalic vein, for length of approximately 2.7 cm. It is uncertain if thiscould represent a fragment of a catheter versus [...] present. There are single left and right renalarteries that are widely patent proximally and nonobstructive calcification is identified. The coeliac axis is widely patent, and the hepatic and splenic arteries also widely patent though diffuse calcification is seen in the splenic artery. The SMA is widely patent. The NURY is patent. Single left and right renal veins are seen draining normally into the IVC. The common iliac, external iliac, common femoral , and the visualized superficial femoral arteries, bilaterally, are widely patent. Scatteredcalcification is identified in the common iliac level, with no stenosis present. Dimensions that maybe helpful for TAVR as follows: The thoracic aorta is overall has minimal calcification identified in the aortic root. Thereafter the ascending thoracic aorta is free of calcification. The major and minor aortic annulus diameter measures 29.0 and 23.2 mm, respectively. The aortic annulus perimeter measured 82 mm and the cross- sectional area measures 521 mm2. The aortic annulus [...] are as follows: CT perimeter between 56.5-62.8 mm(23 mm valve); 62.8-72.3 mm (26 mm valve); 72.3-81.7 mm (29 mm valve); and 81.7-94.2. mm (34 mm valve). Agatston Score is 2589. The aortic valve area is 69 mm2. The sinus of Valsalva height, RCC (diastole): 13.3 mmThe sinus of Valsalva height, LCC (diastole): 11.1 mm The sinus of Valsalva diameter, RCC (diastole): 32.3 mmThe sinus of Valsalva diameter, LCC (diastole) : 33.3 mmThe sinus of Valsalva diameter, NCC (diastole): 32.7 mm The sinotubular junction measures 29.2 x 29.3 mm. The aortic root angulation measures 45.4 degrees. The angle of delivery is MOZAMBICAN 5 CAU 19. The minimal and perpendicular [...] of the left SFA, is at image 603,immediately below the mid level of the left femoral head. The minimum and the perpendicular right common iliac artery measures 7.6 and 10.3 mm , respectively with mild tortuosity and mild calcific atherosclerosis present. The minimum and the perpendicular right external iliac artery measures 7.4 and7.8 mm, respectively with mild to moderate tortuosity and minimal calcific atherosclerosis present. The minimum and the perpendicular right femoral artery measures 6.1 and 7.1 mm, respectively with minimal tortuosity and mild calcific atherosclerosis present. The takeoff of the right SFA, is at image 610, below the mid level of the right femoral head. NON- VASCULAR: The visualised thyroid gland appears unremarkable. The chest wall and mediastinum appear normal. There are number of lymph nodes identified in the mediastinum, the numbers are more than expected. Much of them are small in size. More prominent one has fatty hilum identified, and is also calcified lymph nodes seen in the right hilumoverall suggesting prior granulomatous disease. In the lung windows, no obvious endobronchial lesionis seen and no pleural effusion is identified. [...] in size and shape. No hydronephrosis or perirenalfluid collection is identified. No acute renal pathology [...] air is identified. Mild subcutaneous oedema/anasarca is present.No acute bony pathology is seen; mild degenerative changes is present. CONCLUSIONS: 1. Patient hasa diagnosis of aortic stenosis. The aortic valve [...] may be helpful for TAVR as described above.2. Coronary artery origins are normal and diffuse artery calcification identified. 3. The central pulmonary artery is mildly prominent. Patchy groundglass opacity is identified in the right upper lobe. Evidence of prior granulomatous disease. 4. Other findings as described above. 5. An addendum will be dictated regarding the non-vascular findings by the Content Strategy Lead Radiologist. Signed: Edgar Torres Verified Date/Time : 08/06/2018 17:20:23 Reading Location: [place] [address] Cardiology MRI POCT- GLUCOSE [id number] 12:37:00 Test Item Value Reference Range Comments POC-GLUCOSE METER (BEAKER) 204 mg/dL 70-110 TESTED AT [facility] [address] [place] [address] (test iqno=8312) [facility] [address] POCT-GLUCOSE [id number] 09:10:00 Test Item Value Reference Range Comments POC-GLUCOSE METER (BEAKER) 166 mg/dL 70-110 TESTED AT [address] (test phmp=5801) [facility] [address] COMPREHENSIVE METABOLIC [id number] 02:39:00 Test Item Value Reference Range Comments TOTAL PROTEIN (BEAKER) 6.0 gm/dL 6.0-8.3 (test ovfh=023) ALBUMIN (BEAKER) (test 3.0 g/dL 3.5-5.0 cudb=9465) ALKALINE PHOSPHATASE 140 U/L 40-150 (BEAKER) (test vsrn=775) BILIRUBIN TOTAL (BEAKER) 4.9 mg/dL 0.2-1.2 (test awux=922) SODIUM (BEAKER) (test 135 meq/L 136-145 hsbg=098) POTASSIUM (BEAKER) (test 3.9 meq/L 3.5-5.1 wbwq=263) CHLORIDE (BEAKER) (test 100 meq/L 98-107 ltwt=014) CO2 (BEAKER) (test 25 meq/L 22-29 mvcv=586) BLOOD UREA NITROGEN 41 mg/dL 7-21 (BEAKER) (test kxil=985) CREATININE (BEAKER) (test 5.53 mg/dL 0.57-1.25 qifp=681) GLUCOSE RANDOM (BEAKER) 182 mg/dL 70-105 (test cnqx=326) CALCIUM (BEAKER) (test 9.3 mg/dL 8.4-10.2 hoac=753) AST (SGOT) (BEAKER) (test 104 U/L 5-34 pcmj=739) ALT (SGPT) (BEAKER) (test 171 U/L 6-55 oise=992) EGFR (BEAKER) (test 10 mL/min/1.73 sq m ESTIMATED GFR IS NOT uhfk=4272) ACCURATE CREATININE CLEARANCE IN PREDICTING GLOMERULAR FILTRATION RATE. ESTIMATED GFR IS NOT APPLICABLE FOR DIALYSIS PATIENTS. Specimen moderately [id number] 02:32:00 Test Item Value Reference Range Comments PHOSPHORUS (BEAKER) (test cmfl=034) 4.1 mg/dL 2.3-4.7 [id number] 02:32:00 Test Item Value Reference Range Comments MAGNESIUM (BEAKER) (test fsoc=308) 2.0 mg/dL 1.6-2.6 [id number] 02:21:00 Test Item Value Reference Range Comments PARTIAL THROMBOPLASTIN TIME (BEAKER) (test 66.8 seconds 22.5-36.0 wjdb=908) 4 hours after the start of continuous infusion and 4 hours after any rate changeWhile on warfarin.PROTHROMBIN [id number] 02:20:00 Test Item Value Reference Range Comments PROTIME (BEAKER) (test vtrv=550) 19.0 seconds 11.9-14.2 INR (BEAKER) (test iwup=609) 1.7 <=5.9 Effective 07/29/2018: PT Reference Range ChangeNew: 11.9-14.2 Previous: 11.7- 14.7RECOMMENDED COUMADIN/WARFARIN INR THERAPY RANGESSTANDARD DOSE: 2.0-3.0 Includes: PROPHYLAXIS for venous thrombosis, systemic embolization; TREATMENT for venous thrombosis and/or pulmonary embolus.HIGH RISK: Target INR is2.5-3.5 for patients wiht mechanical heart valves.4 hours after the start of continuous infusion and4 hours after any rate changeWhile on warfarin.CBC W/PLT COUNT &amp ; AUTO [id number] 02:02:00 Test Item Value Reference Range Comments WHITE BLOOD CELL COUNT (BEAKER) (test oldb=534) 10.6 K/ L 3.5-10.5 RED BLOOD CELL COUNT (BEAKER) (test hmkv=844) 3.68 M/ L 4.63-6.08 HEMOGLOBIN (BEAKER) (test fbqr=848) 11.8 GM/DL 13.7-17.5 HEMATOCRIT (BEAKER) (test ouuc=777) 35.7 % 40.1-51.0 MEAN CORPUSCULAR VOLUME (BEAKER) (test delr=803) 97.0 fL 79.0-92.2 MEAN CORPUSCULAR HEMOGLOBIN (BEAKER) (test 32.1 pg 25.7-32.2 efbk=372) MEAN CORPUSCULAR HEMOGLOBIN CONC (BEAKER) (test 33.1 GM/DL 32.3-36.5 vjcu=743) RED CELL DISTRIBUTION WIDTH (BEAKER) (test 19.9 % 11.6-14.4 vdfk=121) PLATELET COUNT (BEAKER) (test ujpo=932) 115 K/CU MM 150-450 MEAN PLATELET VOLUME (BEAKER) (test choq=642) 11.4 fL 9.4-12.4 NUCLEATED RED BLOOD CELLS (BEAKER) (test 0 /100 WBC 0-0 milu=863) NEUTROPHILS RELATIVE PERCENT (BEAKER) (test 80 % tzip=825) LYMPHOCYTES RELATIVE PERCENT (BEAKER) (test 5 % jjsq=030) MONOCYTES RELATIVE PERCENT (BEAKER) (test 12 % fjrg=222) EOSINOPHILS RELATIVE PERCENT (BEAKER) (test 2 % zcvl=278) BASOPHILS RELATIVE PERCENT (BEAKER) (test 0 % jjrh=265) NEUTROPHILS ABSOLUTE COUNT (BEAKER) (test 8.48 K/ L 1.78-5.38 tfbn=852) LYMPHOCYTES ABSOLUTE COUNT (BEAKER) (test 0.50 K/ L 1.32-3.57 qwkn=502) MONOCYTES ABSOLUTE COUNT (BEAKER) (test 1.31 K/ L 0.30-0.82 goge=453) EOSINOPHILS ABSOLUTE COUNT (BEAKER) (test 0.17 K/ L 0.04-0.54 exah=264) BASOPHILS ABSOLUTE COUNT (BEAKER) (test 0.03 K/ L 0.01-0.08 rvhm=969) IMMATURE GRANULOCYTES-RELATIVE PERCENT (BEAKER) 1 % 0-1 (test qumu=7384) POCT-GLUCOSE [id number] 21:39:00 Test Item Value Reference Range Comments POC-GLUCOSE METER (BEAKER) 216 mg/dL 70-110 TESTED AT [address] (test mpje=2937) [place] [address] POCT-GLUCOSE [id number] 21:39:00 Test Item Value Reference Range Comments POC-GLUCOSE METER (BEAKER) 140 mg/dL 70-110 TESTED AT [address] (test zgsb=8649) [place] [address] PROTEIN ELECTROPHORESIS, [id number] 15:47:00 Test Item Value Reference Range Comments ALBUMIN FRACTION (BEAKER) 2.8 g/dL 3.5-5.5 (test imhy=908) ALPHA 1 FRACTION (BEAKER) 0.4 g/dL 0.2-0.4 (test osko=553) ALPHA 2 FRACTION (BEAKER) 0.6 g/dL 0.5-0.9 (test hjld=537) BETA FRACTION (BEAKER) (test 0.4 g/dL 0.6-1.1 vwmg=613) GAMMA GLOBULIN FRACTION 1.4 g/dL 0.7-1.7 (BEAKER) (test fsla=951) INTERPRETATION-119 (BEAKER) Albumin decreased. Alpha (test dgsw=1500) globulin-1 percentage increased. This suggests an acute phase response. DMOT-RSFQMKFOYOK-574 (BEAKER) Maynor Hayward M.D. (electonic (test eqpc=1829) signature) PROTEIN TOTAL SERUM, SPEP 5.6 gm/dL 6.0-8.3 (BEAKER) (test meoo=7527) Low beta globulin content also noted.POCT-GLUCOSE [id number] 09:01:00 Test Item Value Reference Range Comments POC-GLUCOSE METER (BEAKER) 175 mg/dL 70-110 TESTED AT [address] (test fyce=9157) [place] [address] COMPREHENSIVE METABOLIC [id number] 02:05:00 Test Item Value Reference Range Comments TOTAL PROTEIN (BEAKER) 5.7 gm/dL 6.0-8.3 (test rmyb=878) ALBUMIN (BEAKER) (test 2.9 g/dL 3.5-5.0 qzbp=0058) ALKALINE PHOSPHATASE 89 U/L 40-150 (BEAKER) (test kgdw=322) BILIRUBIN TOTAL (BEAKER) 5.7 mg/dL 0.2-1.2 (test qdwj=766) SODIUM (BEAKER) (test 137 meq/L 136-145 wzfs=600) POTASSIUM (BEAKER) (test 4.0 meq/L 3.5-5.1 zrka=781) CHLORIDE (BEAKER) (test 98 meq/L 98-107 fhas=935) CO2 (BEAKER) (test 26 meq/L 22-29 vaoa=681) BLOOD UREA NITROGEN 66 mg/dL 7-21 (BEAKER) (test dltb=128) CREATININE (BEAKER) (test 7.46 mg/dL 0.57-1.25 fmnh=860) GLUCOSE RANDOM (BEAKER) 177 mg/dL 70-105 (test sygi=513) CALCIUM (BEAKER) (test 9.2 mg/dL 8.4-10.2 huof=015) AST (SGOT) (BEAKER) (test 66 U/L 5-34 kohw=463) ALT (SGPT) (BEAKER) (test 194 U/L 6-55 rzjz=330) EGFR (BEAKER) (test 7 mL/min/1.73 sq m ESTIMATED GFR IS NOT mitu=6748) ACCURATE CREATININE CLEARANCE IN PREDICTING GLOMERULAR FILTRATION RATE. ESTIMATED GFR IS NOT APPLICABLE FOR DIALYSIS PATIENTS. Specimen moderately [id number] 02:00:00 Test Item Value Reference Range Comments PHOSPHORUS (BEAKER) (test jjvs=716) 6.7 mg/dL 2.3-4.7 [id number] 02:00:00 Test Item Value Reference Range Comments MAGNESIUM (BEAKER) (test jjqg=734) 2.3 mg/dL 1.6-2.6 CBC W/PLT COUNT & AUTO [id number] 01:50:00 Test Item Value Reference Range Comments WHITE BLOOD CELL COUNT (BEAKER) (test bvky=907) 9.6 K/ L 3.5-10.5 RED BLOOD CELL COUNT (BEAKER) (test nzxg=540) 3.78 M/ L 4.63-6.08 HEMOGLOBIN (BEAKER) (test wjlr=151) 11.9 GM/DL 13.7-17.5 HEMATOCRIT (BEAKER) (test vdxp=657) 37.0 % 40.1-51.0 MEAN CORPUSCULAR VOLUME (BEAKER) (test amns=203) 97.9 fL 79.0-92.2 MEAN CORPUSCULAR HEMOGLOBIN (BEAKER) (test 31.5 pg 25.7-32.2 qcth=725) MEAN CORPUSCULAR HEMOGLOBIN CONC (BEAKER) (test 32.2 GM/DL 32.3-36.5 mevt=055) RED CELL DISTRIBUTION WIDTH (BEAKER) (test 19.9 % 11.6-14.4 sitq=488) PLATELET COUNT (BEAKER) (test vjbo=937) 89 K/CU MM 150-450 MEAN PLATELET VOLUME (BEAKER) (test rvvv=352) 12.1 fL 9.4-12.4 NUCLEATED RED BLOOD CELLS (BEAKER) (test 0 /100 WBC 0-0 iets=871) NEUTROPHILS RELATIVE PERCENT (BEAKER) (test 79 % ubhq=616) LYMPHOCYTES RELATIVE PERCENT (BEAKER) (test 5 % wkoo=327) MONOCYTES RELATIVE PERCENT (BEAKER) (test 13 % roix=730) EOSINOPHILS RELATIVE PERCENT (BEAKER) (test 2 % napl=009) BASOPHILS RELATIVE PERCENT (BEAKER) (test 0 % fknu=818) NEUTROPHILS ABSOLUTE COUNT (BEAKER) (test 7.57 K/ L 1.78-5.38 jezn=683) LYMPHOCYTES ABSOLUTE COUNT (BEAKER) (test 0.51 K/ L 1.32-3.57 nfev=771) MONOCYTES ABSOLUTE COUNT (BEAKER) (test jtxl=619) 1.24 K/ L 0.30-0.82 EOSINOPHILS ABSOLUTE COUNT (BEAKER) (test 0.16 K/ L 0.04-0.54 sgzw=713) BASOPHILS ABSOLUTE COUNT (BEAKER) (test odac=193) 0.02 K/ L 0.01-0.08 IMMATURE GRANULOCYTES-RELATIVE PERCENT (BEAKER) 1 % 0-1 (test yqtk=0324) [id number] 01:49:00 Test Item Value Reference Range Comments PARTIAL THROMBOPLASTIN TIME (BEAKER) (test 71.2 seconds 22.5-36.0 nlra=781) While on warfarin.PROTHROMBIN TIME/[id number] 01:48:00 Test Item Value Reference Range Comments PROTIME (BEAKER) (test dcci=320) 18.6 seconds 11.9-14.2 INR (BEAKER) (test cikj=418) 1.6 <=5.9 Effective 07/29/2018: PT Reference Range ChangeNew: 11.9-14.2 Previous: 11.7- 14.7RECOMMENDED COUMADIN/WARFARIN INR THERAPY RANGESSTANDARD DOSE: 2.0-3.0 Includes: PROPHYLAXIS for venous thrombosis, systemic embolization; TREATMENT for venous thrombosis and/or pulmonary embolus.HIGH RISK: Target INR is2.5-3.5 for patients wiht mechanical heart valves.While on warfarin.POCT-GLUCOSE [id number] 21:44:00 Test Item Value Reference Range Comments POC-GLUCOSE METER (BEAKER) 242 mg/dL 70-110 TESTED AT [address] (test syvy=2414) [place] [address] [id number] 21:02:00 Test Item Value Reference Range Comments PARTIAL THROMBOPLASTIN TIME (BEAKER) (test 59.9 seconds 22.5-36.0 bduh=341) POCT-GLUCOSE [id number] 16:52:00 Test Item Value Reference Range Comments POC-GLUCOSE METER (BEAKER) 130 mg/dL 70-110 TESTED AT [address] (test kqjy=7643) [place] [id number] HEPARIN [id number] 14:23:00 Test Item Value Reference Range Comments HEPARIN ANTIBODY (BEAKER) Positive-See Serotonin Release Negative (test hwdz=561) Assay for Confirmation HEPARIN ANTIBODY OD (BEAKER) 0.516 <0.400 (test xecd=0281) 4T TOTAL SCORE (BEAKER) 6 (test wfpt=3014) Probability of HIT based on scoring system: 6-8=High probability; 4-5= intermediate probability; 0-3=low probabilityPERIPHERAL BLOOD SMEAR - HOLD [id number] 14:09:00 Test Item Value Reference Range Comments PERIPHERAL SMEAR SAVE (BEAKER) (test gbat=8083) SAVE [id number] 13:57:00 Test Item Value Reference Range Comments PARTIAL THROMBOPLASTIN TIME (BEAKER) (test 50.3 seconds 22.5-36.0 dqkj=698) POCT-GLUCOSE [id number] 12:31:00 Test Item Value Reference Range Comments POC-GLUCOSE METER (BEAKER) 90 mg/dL 70-110 TESTED AT [address] (test xkri=6247) [place] [address] CARDIOLIPIN ANTIBODIES, IGG AND [id number] 10:36:00 Test Item Value Reference Range Comments ANTICARDIOLIPIN IGG ANTIBODY (BEAKER) (test < GPL <20.0 xljj=949) ANTICARDIOLIPIN IGM ANTIBODY (BEAKER) (test 0.6 MPL <20.0 btpr=760) Anticardiolipin IgG Result Interpretation: <20.0 GPL Normal>/=20.0 GPL PositiveAnticardiolipin IgM Result Interpretation: <20.0 MPL Normal>/= 20.0 MPL [id number] 08:20:00 Test Item Value Reference Range Comments PARTIAL THROMBOPLASTIN TIME (BEAKER) (test 47.3 seconds 22.5-36.0 aepg=054) POCT-GLUCOSE [id number] 07:52:00 Test Item Value Reference Range Comments POC-GLUCOSE METER (BEAKER) 90 mg/dL 70-110 TESTED AT [address] (test xsiq=3000) [place] [address] COMPREHENSIVE METABOLIC [id number] 04:34:00 Test Item Value Reference Range Comments TOTAL PROTEIN (BEAKER) 6.1 gm/dL 6.0-8.3 (test ggxc=455) ALBUMIN (BEAKER) (test 3.0 g/dL 3.5-5.0 zmdw=6108) ALKALINE PHOSPHATASE 81 U/L 40-150 (BEAKER) (test qrxn=148) BILIRUBIN TOTAL (BEAKER) 6.0 mg/dL 0.2-1.2 (test cbwz=918) SODIUM (BEAKER) (test 136 meq/L 136-145 xdyl=100) POTASSIUM (BEAKER) (test 4.1 meq/L 3.5-5.1 soqw=185) CHLORIDE (BEAKER) (test 98 meq/L 98-107 mbpd=067) CO2 (BEAKER) (test 26 meq/L 22-29 nwnu=309) BLOOD UREA NITROGEN 54 mg/dL 7-21 (BEAKER) (test kgnr=888) CREATININE (BEAKER) (test 6.38 mg/dL 0.57-1.25 xkbs=855) GLUCOSE RANDOM (BEAKER) 123 mg/dL 70-105 (test visa=323) CALCIUM (BEAKER) (test 9.0 mg/dL 8.4-10.2 uacl=789) AST (SGOT) (BEAKER) (test 44 U/L 5-34 nlfc=678) ALT (SGPT) (BEAKER) (test 224 U/L 6-55 pxgk=428) EGFR (BEAKER) (test 9 mL/min/1.73 sq m ESTIMATED GFR IS NOT ouot=1182) ACCURATE CREATININE CLEARANCE IN PREDICTING GLOMERULAR FILTRATION RATE. ESTIMATED GFR IS NOT APPLICABLE FOR DIALYSIS PATIENTS. Specimen moderately [id number] 04:27:00 Test Item Value Reference Range Comments MAGNESIUM (BEAKER) (test bgle=174) 2.1 mg/dL 1.6-2.6 CBC W/PLT COUNT & AUTO [id number] 03:53:00 Test Item Value Reference Range Comments WHITE BLOOD CELL COUNT (BEAKER) (test pxvs=597) 10.5 K/ L 3.5-10.5 RED BLOOD CELL COUNT (BEAKER) (test ocvh=548) 3.90 M/ L 4.63-6.08 HEMOGLOBIN (BEAKER) (test gkro=196) 12.2 GM/DL 13.7-17.5 HEMATOCRIT (BEAKER) (test ztpt=582) 37.0 % 40.1-51.0 MEAN CORPUSCULAR VOLUME (BEAKER) (test mmcb=327) 94.9 fL 79.0-92.2 MEAN CORPUSCULAR HEMOGLOBIN (BEAKER) (test 31.3 pg 25.7-32.2 yfij=909) MEAN CORPUSCULAR HEMOGLOBIN CONC (BEAKER) (test 33.0 GM/DL 32.3-36.5 llrz=387) RED CELL DISTRIBUTION WIDTH (BEAKER) (test 20.5 % 11.6-14.4 hyhh=093) PLATELET COUNT (BEAKER) (test pojp=670) 87 K/CU MM 150-450 MEAN PLATELET VOLUME (BEAKER) (test jijt=752) 11.5 fL 9.4-12.4 NUCLEATED RED BLOOD CELLS (BEAKER) (test 0 /100 WBC 0-0 pdfj=147) NEUTROPHILS RELATIVE PERCENT (BEAKER) (test 84 % ycfk=577) LYMPHOCYTES RELATIVE PERCENT (BEAKER) (test 4 % zfnp=816) MONOCYTES RELATIVE PERCENT (BEAKER) (test 10 % egfr=975) EOSINOPHILS RELATIVE PERCENT (BEAKER) (test 1 % ctrv=571) BASOPHILS RELATIVE PERCENT (BEAKER) (test 0 % yykp=711) NEUTROPHILS ABSOLUTE COUNT (BEAKER) (test 8.79 K/ L 1.78-5.38 itql=149) LYMPHOCYTES ABSOLUTE COUNT (BEAKER) (test 0.44 K/ L 1.32-3.57 aiog=847) MONOCYTES ABSOLUTE COUNT (BEAKER) (test flrm=783) 1.03 K/ L 0.30-0.82 EOSINOPHILS ABSOLUTE COUNT (BEAKER) (test 0.11 K/ L 0.04-0.54 gcve=310) BASOPHILS ABSOLUTE COUNT (BEAKER) (test qyzh=747) 0.01 K/ L 0.01-0.08 IMMATURE GRANULOCYTES-RELATIVE PERCENT (BEAKER) 1 % 0-1 (test sjcb=6633) [id number] 03:52:00 Test Item Value Reference Range Comments PARTIAL THROMBOPLASTIN TIME (BEAKER) (test 56.9 seconds 22.5-36.0 vzcz=943) 4 hours after the start of continuous infusion and 4 hours after any rate changeWhile on warfarin.PROTHROMBIN TIME/[id number] 03:51:00 Test Item Value Reference Range Comments PROTIME (BEAKER) (test fzqf=384) 17.2 seconds 11.9-14.2 INR (BEAKER) (test wiwx=598) 1.5 <=5.9 Effective 07/29/2018: PT Reference Range ChangeNew: 11.9-14.2 Previous: 11.7- 14.7RECOMMENDED COUMADIN/WARFARIN INR THERAPY RANGESSTANDARD DOSE: 2.0-3.0 Includes: PROPHYLAXIS for venous thrombosis, systemic embolization; TREATMENT for venous thrombosis and/or pulmonary embolus.HIGH RISK: Target INR is2.5-3.5 for patients wiht mechanical heart valves.4 hours after the start of continuous infusion and4 hours after any rate changeWhile on warfarin.POCT-GLUCOSE [id number] 23:01:00 Test Item Value Reference Range Comments POC-GLUCOSE METER (BEAKER) 147 mg/dL 70-110 TESTED AT [address] (test zyaw=5474) [facility] [address] [id number] 21:35:00 Test Item Value Reference Range Comments PARTIAL THROMBOPLASTIN TIME (BEAKER) (test 33.6 seconds 22.5-36.0 riyc=698) BLOOD [id number] 20:01:00 Test Item Value Reference Range Comments CULTURE (BEAKER) (test xkrk=6899) No growth in 5 days PERIPHERAL BLOOD SMEAR - PATHOLOGIST [id number] 17:51:00 Test Item Value Reference Range Comments RBC MORPHOLOGY (BEAKER) Hypochromic, macrocytic (test futp=1373) anemia with mild anisopoikilocytosis, including echinocytes and occasional elliptocytes. Rare schistocytes. Increased polychromasia. WBC MORPHOLOGY (BEAKER) Increased. Primarily (test atmk=4985) comprised by neutrophils, few with toxic granulation features. PLT MORPHOLOGY (BEAKER) Decrease with normal (test yqaq=4134) granular morphology. Occasional large and rare giant forms. No significant platelet aggregates/clumping identified. [id number] Jon Roger MD (BEAKER) (test kkcr=5856) (electronic signature) [id number] 16:42:00 Test Item Value Reference Range Comments FERRITIN (BEAKER) (test zuzu=760) 3900 ng/mL 5-275 POCT-GLUCOSE [id number] 16:28:00 Test Item Value Reference Range Comments POC-GLUCOSE METER (BEAKER) 100 mg/dL 70-110 TESTED AT [address] (test jfdw=9199) [facility] [address] VITAMIN B12 AND [id number] 15:22:00 Test Item Value Reference Range Comments VITAMIN B12 (BEAKER) (test igtp=888) > pg/mL 213-816 FOLATE (BEAKER) (test ngxw=935) 7.7 ng/mL >=7.0 IMMUNOGLOBULIN G (IGG)2018-08-03 14:38:00 Test Item Value Reference Range Comments IMMUNOGLOBULIN G (IGG) (BEAKER) (test kcnr=755) 1163 mg/dL 540-1,822 IMMUNOGLOBULIN M (IGM)2018-08-03 14:38:00 Test Item Value Reference Range Comments IMMUNOGLOBULIN M (IGM) (BEAKER) (test brns=833) 86 mg/dL 22-293 IMMUNOGLOBULIN A (IGA)2018-08-03 14:38:00 Test Item Value Reference Range Comments IMMUNOGLOBULIN A (IGA) (BEAKER) (test xkar=590) 222 mg/dL 63-484 IRON, TIBC, % SAT. (WITHOUT FERRITIN)2018-08-03 14:38:00 Test Item Value Reference Range Comments IRON (BEAKER) (test mzxs=984) 29.0 ug/dL 40.0-160.0 TOTAL IRON BINDING CAPACITY (BEAKER) (test 186 ug/dL 250-450 xiqc=415) IRON % SATURATION (2) (BEAKER) (test nwwe=9326) 16 % 20-55 POCT-GLUCOSE [id number] 12:40:00 Test Item Value Reference Range Comments POC-GLUCOSE METER (BEAKER) 118 mg/dL 70-110 TESTED AT [facility] [address] [facility] (test asno=4413) [facility] [address] CBC W/PLT COUNT & AUTO [id number] 11:38:00 Test Item Value Reference Range Comments WHITE BLOOD CELL COUNT (BEAKER) (test wjdj=929) 12.6 K/ L 3.5-10.5 RED BLOOD CELL COUNT (BEAKER) (test ifec=859) 3.87 M/ L 4.63-6.08 HEMOGLOBIN (BEAKER) (test pgno=777) 12.4 GM/DL 13.7-17.5 HEMATOCRIT (BEAKER) (test ehgl=475) 36.5 % 40.1-51.0 MEAN CORPUSCULAR VOLUME (BEAKER) (test xnyj=176) 94.3 fL 79.0-92.2 MEAN CORPUSCULAR HEMOGLOBIN (BEAKER) (test 32.0 pg 25.7-32.2 tjlt=239) MEAN CORPUSCULAR HEMOGLOBIN CONC (BEAKER) (test 34.0 GM/DL 32.3-36.5 bnbe=812) RED CELL DISTRIBUTION WIDTH (BEAKER) (test 20.3 % 11.6-14.4 ziec=720) PLATELET COUNT (BEAKER) (test sjxv=705) 97 K/CU MM 150-450 MEAN PLATELET VOLUME (BEAKER) (test avvz=981) 11.5 fL 9.4-12.4 NUCLEATED RED BLOOD CELLS (BEAKER) (test 0 /100 WBC 0-0 wcku=670) NEUTROPHILS RELATIVE PERCENT (BEAKER) (test 83 % qbyo=376) LYMPHOCYTES RELATIVE PERCENT (BEAKER) (test 5 % vjmj=395) MONOCYTES RELATIVE PERCENT (BEAKER) (test 10 % gjlt=390) EOSINOPHILS RELATIVE PERCENT (BEAKER) (test 1 % ziwt=385) BASOPHILS RELATIVE PERCENT (BEAKER) (test 0 % hpsw=850) NEUTROPHILS ABSOLUTE COUNT (BEAKER) (test 10.45 K/ L 1.78-5.38 udtj=148) LYMPHOCYTES ABSOLUTE COUNT (BEAKER) (test 0.63 K/ L 1.32-3.57 xhxq=938) MONOCYTES ABSOLUTE COUNT (BEAKER) (test nkgc=199) 1.21 K/ L 0.30-0.82 EOSINOPHILS ABSOLUTE COUNT (BEAKER) (test 0.18 K/ L 0.04-0.54 hnfb=258) BASOPHILS ABSOLUTE COUNT (BEAKER) (test tsqg=732) 0.01 K/ L 0.01-0.08 IMMATURE GRANULOCYTES-RELATIVE PERCENT (BEAKER) 1 % 0-1 (test jnrl=8760) [id number] 09:34:00 Test Item Value Reference Range Comments PARTIAL THROMBOPLASTIN TIME (BEAKER) (test 56.9 seconds 22.5-36.0 jkbk=553) POCT-GLUCOSE [id number] 08:07:00 Test Item Value Reference Range Comments POC-GLUCOSE METER (BEAKER) 117 mg/dL 70-110 TESTED AT [facility] [address] [facility] (test civd=5215) [facility] [address] COMPREHENSIVE METABOLIC [id number] 03:40:00 Test Item Value Reference Range Comments TOTAL PROTEIN (BEAKER) 6.0 gm/dL 6.0-8.3 (test ugmi=514) ALBUMIN (BEAKER) (test 3.1 g/dL 3.5-5.0 aifi=2185) ALKALINE PHOSPHATASE 87 U/L 40-150 (BEAKER) (test fern=284) BILIRUBIN TOTAL (BEAKER) 5.1 mg/dL 0.2-1.2 (test ipkq=828) SODIUM (BEAKER) (test 132 meq/L 136-145 nuxu=561) POTASSIUM (BEAKER) (test 4.8 meq/L 3.5-5.1 qksd=193) CHLORIDE (BEAKER) (test 95 meq/L 98-107 pkpu=389) CO2 (BEAKER) (test 21 meq/L 22-29 ljxw=146) BLOOD UREA NITROGEN 88 mg/dL 7-21 (BEAKER) (test sjmp=367) CREATININE (BEAKER) (test 8.78 mg/dL 0.57-1.25 mbiz=744) GLUCOSE RANDOM (BEAKER) 154 mg/dL 70-105 (test mdxw=561) CALCIUM (BEAKER) (test 9.2 mg/dL 8.4-10.2 fuhk=064) AST (SGOT) (BEAKER) (test 78 U/L 5-34 vxcr=509) ALT (SGPT) (BEAKER) (test 320 U/L 6-55 zlxx=223) EGFR (BEAKER) (test 6 mL/min/1.73 sq m ESTIMATED GFR IS NOT hjyn=8863) ACCURATE CREATININE CLEARANCE IN PREDICTING GLOMERULAR FILTRATION RATE. ESTIMATED GFR IS NOT APPLICABLE FOR DIALYSIS PATIENTS. Specimen moderately [id number] 03:26:00 Test Item Value Reference Range Comments PHOSPHORUS (BEAKER) (test vcby=803) 9.7 mg/dL 2.3-4.7 PROTHROMBIN [id number] 03:20:00 Test Item Value Reference Range Comments PROTIME (BEAKER) (test ycde=781) 15.3 seconds 11.9-14.2 INR (BEAKER) (test hqaj=843) 1.3 <=5.9 Effective 07/29/2018: PT Reference Range ChangeNew: 11.9-14.2 Previous: 11.7- 14.7RECOMMENDED COUMADIN/WARFARIN INR THERAPY RANGESSTANDARD DOSE: 2.0-3.0 Includes: PROPHYLAXIS for venous thrombosis, systemic embolization; TREATMENT for venous thrombosis and/or pulmonary embolus.HIGH RISK: Target INR is2.5-3.5 for patients wiht mechanical heart valves.While on warfarin.[id number] 02:42:00 Test Item Value Reference Range Comments MAGNESIUM (BEAKER) (test cete=990) 2.6 mg/dL 1.6-2.6 [id number] 02:37:00 Test Item Value Reference Range Comments PARTIAL THROMBOPLASTIN TIME (BEAKER) (test 59.7 seconds 22.5-36.0 lddg=487) POCT-GLUCOSE [id number] 21:25:00 Test Item Value Reference Range Comments POC-GLUCOSE METER (BEAKER) 153 mg/dL 70-110 TESTED AT [address] (test piyj=8306) [place] [id number] POCT-GLUCOSE [id number] 18:23:00 Test Item Value Reference Range Comments POC-GLUCOSE METER (BEAKER) 179 mg/dL 70-110 TESTED AT [address] (test regg=5026) [place] [id number] POCT-GLUCOSE [id number] 14:45:00 Test Item Value Reference Range Comments POC-GLUCOSE METER (BEAKER) 198 mg/dL 70-110 TESTED AT [address] (test dldw=8934) [facility] [address] POCT-GLUCOSE [id number] 09:20:00 Test Item Value Reference Range Comments POC-GLUCOSE METER (BEAKER) 196 mg/dL 70-110 TESTED AT [address] (test sxbj=0363) [facility] [address] CBC W/PLT COUNT & AUTO [id number] 05:23:00 Test Item Value Reference Range Comments WHITE BLOOD CELL COUNT (BEAKER) (test bbao=560) 13.2 K/ L 3.5-10.5 RED BLOOD CELL COUNT (BEAKER) (test xfwc=136) 4.01 M/ L 4.63-6.08 HEMOGLOBIN (BEAKER) (test ffao=361) 12.6 GM/DL 13.7-17.5 HEMATOCRIT (BEAKER) (test ltrq=190) 39.0 % 40.1-51.0 MEAN CORPUSCULAR VOLUME (BEAKER) (test yoco=747) 97.3 fL 79.0-92.2 MEAN CORPUSCULAR HEMOGLOBIN (BEAKER) (test 31.4 pg 25.7-32.2 zizy=855) MEAN CORPUSCULAR HEMOGLOBIN CONC (BEAKER) (test 32.3 GM/DL 32.3-36.5 neup=746) RED CELL DISTRIBUTION WIDTH (BEAKER) (test 20.0 % 11.6-14.4 rqxp=402) PLATELET COUNT (BEAKER) (test kqhv=937) 112 K/CU MM 150-450 MEAN PLATELET VOLUME (BEAKER) (test dqni=773) 11.9 fL 9.4-12.4 NUCLEATED RED BLOOD CELLS (BEAKER) (test 0 /100 WBC 0-0 hejv=034) NEUTROPHILS RELATIVE PERCENT (BEAKER) (test 84 % mzac=449) LYMPHOCYTES RELATIVE PERCENT (BEAKER) (test 4 % jrkt=226) MONOCYTES RELATIVE PERCENT (BEAKER) (test 10 % kmyv=389) EOSINOPHILS RELATIVE PERCENT (BEAKER) (test 1 % ielk=194) BASOPHILS RELATIVE PERCENT (BEAKER) (test 0 % mdni=715) NEUTROPHILS ABSOLUTE COUNT (BEAKER) (test 11.13 K/ L 1.78-5.38 qpae=674) LYMPHOCYTES ABSOLUTE COUNT (BEAKER) (test 0.55 K/ L 1.32-3.57 zmol=876) MONOCYTES ABSOLUTE COUNT (BEAKER) (test 1.27 K/ L 0.30-0.82 rhui=992) EOSINOPHILS ABSOLUTE COUNT (BEAKER) (test 0.10 K/ L 0.04-0.54 tqod=155) BASOPHILS ABSOLUTE COUNT (BEAKER) (test 0.02 K/ L 0.01-0.08 mrdg=460) IMMATURE GRANULOCYTES-RELATIVE PERCENT (BEAKER) 1 % 0-1 (test vpxb=0118) [id number] 05:14:00 Test Item Value Reference Range Comments PHOSPHORUS (BEAKER) (test nvdb=330) 9.0 mg/dL 2.3-4.7 COMPREHENSIVE METABOLIC [id number] 05:11:00 Test Item Value Reference Range Comments TOTAL PROTEIN (BEAKER) 6.1 gm/dL 6.0-8.3 (test lwah=709) ALBUMIN (BEAKER) (test 3.2 g/dL 3.5-5.0 nyte=2834) ALKALINE PHOSPHATASE 74 U/L 40-150 (BEAKER) (test tnip=055) BILIRUBIN TOTAL (BEAKER) 4.8 mg/dL 0.2-1.2 (test buok=650) SODIUM (BEAKER) (test 134 meq/L 136-145 nwdx=910) POTASSIUM (BEAKER) (test 4.6 meq/L 3.5-5.1 ejsm=310) CHLORIDE (BEAKER) (test 98 meq/L 98-107 jpkb=353) CO2 (BEAKER) (test 21 meq/L 22-29 vyzc=284) BLOOD UREA NITROGEN 72 mg/dL 7-21 (BEAKER) (test sjgs=550) CREATININE (BEAKER) (test 8.05 mg/dL 0.57-1.25 itit=167) GLUCOSE RANDOM (BEAKER) 176 mg/dL 70-105 (test ppop=277) CALCIUM (BEAKER) (test 9.4 mg/dL 8.4-10.2 vivn=348) AST (SGOT) (BEAKER) (test 103 U/L 5-34 pgpm=036) ALT (SGPT) (BEAKER) (test 471 U/L 6-55 zrfz=408) EGFR (BEAKER) (test 7 mL/min/1.73 sq m ESTIMATED GFR IS NOT cmmw=3419) ACCURATE CREATININE CLEARANCE IN PREDICTING GLOMERULAR FILTRATION RATE. ESTIMATED GFR IS NOT APPLICABLE FOR DIALYSIS PATIENTS. Specimen moderately [id number] 05:09:00 Test Item Value Reference Range Comments MAGNESIUM (BEAKER) (test zqwo=666) 2.4 mg/dL 1.6-2.6 [id number] 05:04:00 Test Item Value Reference Range Comments PARTIAL THROMBOPLASTIN TIME (BEAKER) (test 68.6 seconds 22.5-36.0 ahad=210) While on warfarin.PROTHROMBIN [id number] 05:03:00 Test Item Value Reference Range Comments PROTIME (BEAKER) (test gaoq=897) 16.5 seconds 11.9-14.2 INR (BEAKER) (test ifyh=130) 1.4 <=5.9 Effective 07/29/2018: PT Reference Range ChangeNew: 11.9-14.2 Previous: 11.7- 14.7RECOMMENDED COUMADIN/WARFARIN INR THERAPY RANGESSTANDARD DOSE: 2.0-3.0 Includes: PROPHYLAXIS for venous thrombosis, systemic embolization; TREATMENT for venous thrombosis and/or pulmonary embolus.HIGH RISK: Target INR is2.5-3.5 for patients wiht mechanical heart valves.While on warfarin.POCT-GLUCOSE [id number] 17:50:00 Test Item Value Reference Range Comments POC-GLUCOSE METER (BEAKER) 202 mg/dL 70-110 TESTED AT [facility] [address] [facility] (test agwh=0252) [place] [id number] POCT-GLUCOSE [id number] 11:57:00 Test Item Value Reference Range Comments POC-GLUCOSE METER (BEAKER) 144 mg/dL 70-110 TESTED AT [address] (test mhpm=7303) [place] [id number] POCT-GLUCOSE [id number] 07:43:00 Test Item Value Reference Range Comments POC-GLUCOSE METER (BEAKER) 143 mg/dL 70-110 TESTED AT [address] (test tfxe=1856) [place] [id number] COMPREHENSIVE METABOLIC [id number] 06:25:00 Test Item Value Reference Range Comments TOTAL PROTEIN (BEAKER) 5.8 gm/dL 6.0-8.3 (test uunr=702) ALBUMIN (BEAKER) (test 3.1 g/dL 3.5-5.0 jhow=5565) ALKALINE PHOSPHATASE 73 U/L 40-150 (BEAKER) (test exwy=234) BILIRUBIN TOTAL (BEAKER) 3.9 mg/dL 0.2-1.2 (test bssk=322) SODIUM (BEAKER) (test 139 meq/L 136-145 udjf=853) POTASSIUM (BEAKER) (test 4.5 meq/L 3.5-5.1 jxso=953) CHLORIDE (BEAKER) (test 102 meq/L 98-107 tkqg=198) CO2 (BEAKER) (test 23 meq/L 22-29 rnvv=343) BLOOD UREA NITROGEN 54 mg/dL 7-21 (BEAKER) (test tznw=909) CREATININE (BEAKER) (test 6.73 mg/dL 0.57-1.25 yfzk=979) GLUCOSE RANDOM (BEAKER) 134 mg/dL 70-105 (test ufuf=601) CALCIUM (BEAKER) (test 9.3 mg/dL 8.4-10.2 wnuy=597) AST (SGOT) (BEAKER) (test 140 U/L 5-34 jwpp=909) ALT (SGPT) (BEAKER) (test 598 U/L 6-55 piji=950) EGFR (BEAKER) (test 8 mL/min/1.73 sq m ESTIMATED GFR IS NOT ooec=3872) ACCURATE CREATININE CLEARANCE IN PREDICTING GLOMERULAR FILTRATION RATE. ESTIMATED GFR IS NOT APPLICABLE FOR DIALYSIS PATIENTS. Specimen slightly ictericHEPATIC FUNCTION [id number] 06:15:00 Test Item Value Reference Range Comments TOTAL PROTEIN (BEAKER) (test gmuz=960) 5.8 gm/dL 6.0-8.3 ALBUMIN (BEAKER) (test yryg=0024) 3.1 g/dL 3.5-5.0 BILIRUBIN TOTAL (BEAKER) (test qjua=052) 3.9 mg/dL 0.2-1.2 BILIRUBIN DIRECT (BEAKER) (test urcz=282) 2.4 mg/dL 0.1-0.5 ALKALINE PHOSPHATASE (BEAKER) (test gcwe=564) 73 U/L 40-150 AST (SGOT) (BEAKER) (test hszw=129) 140 U/L 5-34 ALT (SGPT) (BEAKER) (test egzv=194) 598 U/L 6-55 Specimen slightly ictericCBC W/PLT COUNT & AUTO [id number] 06:01 :00 Test Item Value Reference Range Comments WHITE BLOOD CELL COUNT (BEAKER) (test cwwa=418) 12.1 K/ L 3.5-10.5 RED BLOOD CELL COUNT (BEAKER) (test gcfs=079) 4.15 M/ L 4.63-6.08 HEMOGLOBIN (BEAKER) (test jrke=666) 12.9 GM/DL 13.7-17.5 HEMATOCRIT (BEAKER) (test jyvn=071) 40.9 % 40.1-51.0 MEAN CORPUSCULAR VOLUME (BEAKER) (test kwdm=100) 98.6 fL 79.0-92.2 MEAN CORPUSCULAR HEMOGLOBIN (BEAKER) (test 31.1 pg 25.7-32.2 etnt=082) MEAN CORPUSCULAR HEMOGLOBIN CONC (BEAKER) (test 31.5 GM/DL 32.3-36.5 wmru=993) RED CELL DISTRIBUTION WIDTH (BEAKER) (test 20.1 % 11.6-14.4 jtsm=485) PLATELET COUNT (BEAKER) (test jdsv=190) 105 K/CU MM 150-450 MEAN PLATELET VOLUME (BEAKER) (test furx=242) 11.2 fL 9.4-12.4 NUCLEATED RED BLOOD CELLS (BEAKER) (test 1 /100 WBC 0-0 qeri=373) NEUTROPHILS RELATIVE PERCENT (BEAKER) (test 85 % ahbn=271) LYMPHOCYTES RELATIVE PERCENT (BEAKER) (test 4 % nmdc=607) MONOCYTES RELATIVE PERCENT (BEAKER) (test 9 % jzse=328) EOSINOPHILS RELATIVE PERCENT (BEAKER) (test 1 % xhzg=755) BASOPHILS RELATIVE PERCENT (BEAKER) (test 0 % fuqt=136) NEUTROPHILS ABSOLUTE COUNT (BEAKER) (test 10.25 K/ L 1.78-5.38 jrof=557) LYMPHOCYTES ABSOLUTE COUNT (BEAKER) (test 0.46 K/ L 1.32-3.57 nple=464) MONOCYTES ABSOLUTE COUNT (BEAKER) (test 1.13 K/ L 0.30-0.82 wuhr=517) EOSINOPHILS ABSOLUTE COUNT (BEAKER) (test 0.10 K/ L 0.04-0.54 acdu=379) BASOPHILS ABSOLUTE COUNT (BEAKER) (test 0.03 K/ L 0.01-0.08 ldmb=205) IMMATURE GRANULOCYTES-RELATIVE PERCENT (BEAKER) 1 % 0-1 (test bclr=1219) [id number] 06:00:00 Test Item Value Reference Range Comments PARTIAL THROMBOPLASTIN TIME (BEAKER) (test 71.3 seconds 22.5-36.0 dnwe=381) While on warfarin.PROTHROMBIN [id number] 05:59:00 Test Item Value Reference Range Comments PROTIME (BEAKER) (test jrvu=969) 18.5 seconds 11.9-14.2 INR (BEAKER) (test oufz=336) 1.6 <=5.9 Effective 07/29/2018: PT Reference Range ChangeNew: 11.9-14.2 Previous: 11.7- 14.7RECOMMENDED COUMADIN/WARFARIN INR THERAPY RANGESSTANDARD DOSE: 2.0-3.0 Includes: PROPHYLAXIS for venous thrombosis, systemic embolization; TREATMENT for venous thrombosis and/or pulmonary embolus.HIGH RISK: Target INR is2.5-3.5 for patients wiht mechanical heart valves.While on warfarin.BLOOD [id number] 02:00:00 Test Item Value Reference Range Comments CULTURE (BEAKER) (test sgwi=6950) No growth in 5 days [id number] 00:14:00 Test Item Value Reference Range Comments PARTIAL THROMBOPLASTIN TIME (BEAKER) (test 90.2 seconds 22.5-36.0 irrd=066) POCT-GLUCOSE [id number] 23:48:00 Test Item Value Reference Range Comments POC-GLUCOSE METER (BEAKER) 130 mg/dL 70-110 TESTED AT [place] [id number] [facility] (test xbal=9750) [facility] [address] POCT-GLUCOSE [id number] 18:15:00 Test Item Value Reference Range Comments POC-GLUCOSE METER (BEAKER) 122 mg/dL 70-110 TESTED AT [address] (test cvfj=3468) [place] [address] [id number] 17:13:00 Test Item Value Reference Range Comments PARTIAL THROMBOPLASTIN TIME (BEAKER) (test 110.6 seconds 22.5-36.0 gidi=038) RAD, CHEST, 1 VIEW, NON [id number] 15:38:00Reason for exam:->Central line placementShould this be performed at the bedside?->YesFINAL REPORT RAD, CHEST, 1 VIEW, NON DEPT INDICATION: Central line placement COMPARISON: Prior day's exam FINDINGS: Portable frontal view of the chest. IMPRESSION: Support Lines: Left IJ central venous catheter terminates at the junction of the subclavian vein and superior vena cava. Lungs and pleura : No new congestion has developed. Bibasilar subsegmental atelectasis is mild. The right costophrenic sulcus is excluded from view. No pneumothorax.Heart and mediastinum: Stablecontours.Additional findings: None. Signed: JR Biggs Robert MDReport Verified Date/Time: 07/31/2018 15:38:10 Reading Location: [facility] [id number] Consult Reading Room [id number] 11:49:00 Test Item Value Reference Range Comments PARTIAL THROMBOPLASTIN TIME (BEAKER) (test 88.8 seconds 22.5-36.0 rplo=915) POCT-GLUCOSE [id number] 11:46:00 Test Item Value Reference Range Comments POC-GLUCOSE METER (BEAKER) 145 mg/dL 70-110 TESTED AT [facility] [address] (test dmzf=1637) [facility] [address] CT, BRAIN, WITHOUT [id number] 10:24:00FINAL REPORT CT Head without contrast CLINICAL HISTORY: [...] There is generalized parenchymal volume loss without hydrocephalus , midline shift, or apparent mass effect. There are no extra-axial fluid collections. The skull is intact. The visualized paranasal sinuses are well- aerated. IMPRESSION: No CT evidence of acute infarct, hemorrhage, or hydrocephalus. Signed: Stephanie Santacruz MDReport Verified Date/Time: 07/31/2018 10 :24:48 Reading Location: [address] Neuro Reading Room [id number] 10:15:00 Test Item Value Reference Range Comments AMMONIA (BEAKER) (test ilrv=834) 46 mol/L 18-72 BLOOD GAS, [id number] 08:44:00 Test Item Value Reference Range Comments PH ARTERIAL (BEAKER) (test gdqs=703) 7.37 7.35-7.45 PCO2 ARTERIAL (BEAKER) (test dwmm=398) 44 mmHg 35-45 PO2 ARTERIAL (BEAKER) (test yqud=049) 229 mmHg 80-90 O2 SATURATION ARTERIAL (BEAKER) (test xyxm=647) 99.5 % 96.0-97.0 HCO3 ARTERIAL (BEAKER) (test gddz=801) 25 mmol/L 21-29 BASE EXCESS ARTERIAL (BEAKER) (test vitg=418) -0.7 mmol/L -2.0-3.0 PATIENT TEMPERATURE (BEAKER) (test akyk=2540) 37.0 C FIO2 (BEAKER) (test scdy=6693) 21.0 % POCT-GLUCOSE [id number] 08:22:00 Test Item Value Reference Range Comments POC-GLUCOSE METER (BEAKER) 170 mg/dL 70-110 TESTED AT [facility] [address] [facility] (test nnkh=4061) [facility] [address] POCT-GLUCOSE [id number] 05:39:00 Test Item Value Reference Range Comments POC-GLUCOSE METER (BEAKER) 163 mg/dL 70-110 TESTED AT [place] [id number] [facility] (test qcgu=4326) [facility] [address] CBC W/PLT COUNT & AUTO [id number] 05:18:00 Test Item Value Reference Range Comments WHITE BLOOD CELL COUNT (BEAKER) (test rnoj=477) 11.9 K/ L 3.5-10.5 RED BLOOD CELL COUNT (BEAKER) (test lehy=933) 3.71 M/ L 4.63-6.08 HEMOGLOBIN (BEAKER) (test plot=349) 11.4 GM/DL 13.7-17.5 HEMATOCRIT (BEAKER) (test gqmg=180) 35.1 % 40.1-51.0 MEAN CORPUSCULAR VOLUME (BEAKER) (test wfub=871) 94.6 fL 79.0-92.2 MEAN CORPUSCULAR HEMOGLOBIN (BEAKER) (test 30.7 pg 25.7-32.2 floz=399) MEAN CORPUSCULAR HEMOGLOBIN CONC (BEAKER) (test 32.5 GM/DL 32.3-36.5 atyq=014) RED CELL DISTRIBUTION WIDTH (BEAKER) (test 18.1 % 11.6-14.4 rhvf=157) PLATELET COUNT (BEAKER) (test vafr=173) 112 K/CU MM 150-450 MEAN PLATELET VOLUME (BEAKER) (test hubz=008) 10.8 fL 9.4-12.4 NUCLEATED RED BLOOD CELLS (BEAKER) (test 1 /100 WBC 0-0 mjmx=964) NEUTROPHILS RELATIVE PERCENT (BEAKER) (test 81 % iyih=815) LYMPHOCYTES RELATIVE PERCENT (BEAKER) (test 7 % roxi=552) MONOCYTES RELATIVE PERCENT (BEAKER) (test 9 % kgfx=088) EOSINOPHILS RELATIVE PERCENT (BEAKER) (test 1 % mpsn=835) BASOPHILS RELATIVE PERCENT (BEAKER) (test 0 % njwl=160) NEUTROPHILS ABSOLUTE COUNT (BEAKER) (test 9.72 K/ L 1.78-5.38 defn=016) LYMPHOCYTES ABSOLUTE COUNT (BEAKER) (test 0.86 K/ L 1.32-3.57 xnnp=209) MONOCYTES ABSOLUTE COUNT (BEAKER) (test 1.09 K/ L 0.30-0.82 dnuj=669) EOSINOPHILS ABSOLUTE COUNT (BEAKER) (test 0.09 K/ L 0.04-0.54 piiy=793) BASOPHILS ABSOLUTE COUNT (BEAKER) (test 0.01 K/ L 0.01-0.08 osyf=015) IMMATURE GRANULOCYTES-RELATIVE PERCENT (BEAKER) 1 % 0-1 (test phgj=7092) [id number] 05:12:00 Test Item Value Reference Range Comments PHOSPHORUS (BEAKER) (test 10.1 mg/dL 2.3-4.7 Specimen slightly hemolyzed vxue=873) COMPREHENSIVE METABOLIC [id number] 05:12:00 Test Item Value Reference Range Comments TOTAL PROTEIN (BEAKER) 5.4 gm/dL 6.0-8.3 Specimen slightly (test kqyd=968) hemolyzed ALBUMIN (BEAKER) (test 3.0 g/dL 3.5-5.0 Specimen slightly wrws=8641) hemolyzed ALKALINE PHOSPHATASE 66 U/L 40-150 (BEAKER) (test vytw=160) BILIRUBIN TOTAL (BEAKER) 3.6 mg/dL 0.2-1.2 Specimen slightly (test bdxe=443) hemolyzed SODIUM (BEAKER) (test 133 meq/L 136-145 rzrb=332) POTASSIUM (BEAKER) (test 4.0 meq/L 3.5-5.1 Specimen slightly tynt=095) hemolyzed CHLORIDE (BEAKER) (test 95 meq/L 98-107 mwnu=299) CO2 (BEAKER) (test 21 meq/L 22-29 vpcc=308) BLOOD UREA NITROGEN 86 mg/dL 7-21 (BEAKER) (test lzlg=912) CREATININE (BEAKER) (test 8.92 mg/dL 0.57-1.25 Specimen slightly nlmu=891) hemolyzed GLUCOSE RANDOM (BEAKER) 152 mg/dL 70-105 (test eciy=002) CALCIUM (BEAKER) (test 9.2 mg/dL 8.4-10.2 admb=761) AST (SGOT) (BEAKER) (test 182 U/L 5-34 Specimen slightly uwqm=052) hemolyzed ALT (SGPT) (BEAKER) (test 694 U/L 6-55 Specimen slightly pdyj=775) hemolyzed EGFR (BEAKER) (test 6 mL/min/1.73 sq m ESTIMATED GFR IS NOT stbu=5340) ACCURATE CREATININE CLEARANCE IN PREDICTING GLOMERULAR FILTRATION RATE. ESTIMATED GFR IS NOT APPLICABLE FOR DIALYSIS PATIENTS. Specimen slightly [id number] 05:08:00 Test Item Value Reference Range Comments MAGNESIUM (BEAKER) (test 2.7 mg/dL 1.6-2.6 Specimen slightly hemolyzed bvql=988) [id number] 04:52:00 Test Item Value Reference Range Comments PARTIAL THROMBOPLASTIN TIME (BEAKER) (test 70.9 seconds 22.5-36.0 hoyg=570) While on warfarin.PROTHROMBIN [id number] 04:51:00 Test Item Value Reference Range Comments PROTIME (BEAKER) (test fboz=653) 19.8 seconds 11.9-14.2 INR (BEAKER) (test wpxt=603) 1.8 <=5.9 Effective 07/29/2018: PT Reference Range ChangeNew: 11.9-14.2 Previous: 11.7- 14.7RECOMMENDED COUMADIN/WARFARIN INR THERAPY RANGESSTANDARD DOSE: 2.0-3.0 Includes: PROPHYLAXIS for venous thrombosis, systemic embolization; TREATMENT for venous thrombosis and/or pulmonary embolus.HIGH RISK: Target INR is2.5-3.5 for patients wiht mechanical heart valves.While on warfarin.POCT-GLUCOSE [id number] 23:36:00 Test Item Value Reference Range Comments POC-GLUCOSE METER (BEAKER) 190 mg/dL 70-110 TESTED AT [facility] [address] [facility] (test bebl=4794) [facility] [address] [id number] 22:33:00 Test Item Value Reference Range Comments PARTIAL THROMBOPLASTIN TIME (BEAKER) (test 57.7 seconds 22.5-36.0 hdtx=578) POCT-GLUCOSE [id number] 18:20:00 Test Item Value Reference Range Comments POC-GLUCOSE METER (BEAKER) 170 mg/dL 70-110 TESTED AT [address] (test uuer=7107) [place] [address] [id number] 16:52:00 Test Item Value Reference Range Comments PARTIAL THROMBOPLASTIN TIME (BEAKER) (test 24.5 seconds 22.5-36.0 erci=009) 6 hours after starting heparin infusion and as indicated per sliding scalePOCT- GLUCOSE [id number] 12:30:00 Test Item Value Reference Range Comments POC-GLUCOSE METER (BEAKER) 160 mg/dL 70-110 TESTED AT [address] (test webf=0481) [place] [address] HIV-1 PCR, [id number] 10:23:00 Test Item Value Reference Range Comments HIV-1 NUMERIC RESULT (AKER) (test rebp=8567) 1060 Cp/mL <20 This test uses a Real-Time Polymerase Chain Reaction (RT-PCR) methodology to detect a highly conserved region of the HIV-1 gag gene and was performed using the [employer] AmpliPrep/OLESYA TaqMan HIV-1 test kit version 2.0 ([employer]Reportable range for this assay is 20 - 10,000,000 copies per mL (1.3 - 7.0 Log copies/mL).COMPREHENSIVE METABOLIC [id number] 06:59:00 Test Item Value Reference Range Comments TOTAL PROTEIN (BEAKER) 6.1 gm/dL 6.0-8.3 Specimen slightly (test royh=246) hemolyzed ALBUMIN (BEAKER) (test 3.4 g/dL 3.5-5.0 Specimen slightly pdnd=1667) hemolyzed ALKALINE PHOSPHATASE 75 U/L 40-150 (BEAKER) (test hqgg=281) BILIRUBIN TOTAL (BEAKER) 3.7 mg/dL 0.2-1.2 Specimen slightly (test idux=639) hemolyzed SODIUM (BEAKER) (test 136 meq/L 136-145 scdu=942) POTASSIUM (BEAKER) (test 4.3 meq/L 3.5-5.1 Specimen slightly fkhs=500) hemolyzed CHLORIDE (BEAKER) (test 97 meq/L 98-107 imoy=215) CO2 (BEAKER) (test 20 meq/L 22-29 kkhi=663) BLOOD UREA NITROGEN 66 mg/dL 7-21 (BEAKER) (test pfdg=005) CREATININE (BEAKER) (test 7.56 mg/dL 0.57-1.25 Specimen slightly lpjd=361) hemolyzed GLUCOSE RANDOM (BEAKER) 139 mg/dL 70-105 (test kedh=768) CALCIUM (BEAKER) (test 9.9 mg/dL 8.4-10.2 idop=507) AST (SGOT) (BEAKER) (test 376 U/L 5-34 Specimen slightly pdwm=005) hemolyzed ALT (SGPT) (BEAKER) (test 1109 U/L 6-55 Specimen slightly xlqg=838) hemolyzed EGFR (BEAKER) (test 7 mL/min/1.73 sq m ESTIMATED GFR IS NOT ctdp=6105) ACCURATE CREATININE CLEARANCE IN PREDICTING GLOMERULAR FILTRATION RATE. ESTIMATED GFR IS NOT APPLICABLE FOR DIALYSIS PATIENTS. Specimen slightly [id number] 06:51:00 Test Item Value Reference Range Comments MAGNESIUM (BEAKER) (test 2.4 mg/dL 1.6-2.6 Specimen slightly hemolyzed pcex=343) PROTHROMBIN [id number] 06:44:00 Test Item Value Reference Range Comments PROTIME (BEAKER) (test nbxr=017) 20.7 seconds 11.9-14.2 INR (BEAKER) (test msfq=951) 1.9 <=5.9 Effective 07/29/2018: PT Reference Range ChangeNew: 11.9-14.2 Previous: 11.7- 14.7RECOMMENDED COUMADIN/WARFARIN INR THERAPY RANGESSTANDARD DOSE: 2.0-3.0 Includes: PROPHYLAXIS for venous thrombosis, systemic embolization; TREATMENT for venous thrombosis and/or pulmonary embolus.HIGH RISK: Target INR is2.5-3.5 for patients wiht mechanical heart valves.[id number] 06:37:00 Test Item Value Reference Range Comments AMMONIA (BEAKER) (test 65 mol/L 18-72 Specimen slightly hemolyzed choi=913) CBC W/PLT COUNT & AUTO [id number] 06:31:00 Test Item Value Reference Range Comments WHITE BLOOD CELL COUNT (BEAKER) (test sbsv=186) 15.7 K/ L 3.5-10.5 RED BLOOD CELL COUNT (BEAKER) (test vtkk=457) 3.96 M/ L 4.63-6.08 HEMOGLOBIN (BEAKER) (test blap=622) 12.2 GM/DL 13.7-17.5 HEMATOCRIT (BEAKER) (test sucg=962) 37.6 % 40.1-51.0 MEAN CORPUSCULAR VOLUME (BEAKER) (test hqmc=948) 94.9 fL 79.0-92.2 MEAN CORPUSCULAR HEMOGLOBIN (BEAKER) (test 30.8 pg 25.7-32.2 vvqj=335) MEAN CORPUSCULAR HEMOGLOBIN CONC (BEAKER) (test 32.4 GM/DL 32.3-36.5 kdtw=297) RED CELL DISTRIBUTION WIDTH (BEAKER) (test 17.7 % 11.6-14.4 exbb=501) PLATELET COUNT (BEAKER) (test tyxq=429) 157 K/CU MM 150-450 MEAN PLATELET VOLUME (BEAKER) (test llwa=969) 11.1 fL 9.4-12.4 NUCLEATED RED BLOOD CELLS (BEAKER) (test 2 /100 WBC 0-0 mxqz=649) NEUTROPHILS RELATIVE PERCENT (BEAKER) (test 84 % gvcz=869) LYMPHOCYTES RELATIVE PERCENT (BEAKER) (test 5 % nkru=681) MONOCYTES RELATIVE PERCENT (BEAKER) (test 10 % pdkw=199) EOSINOPHILS RELATIVE PERCENT (BEAKER) (test 0 % ylgx=382) BASOPHILS RELATIVE PERCENT (BEAKER) (test 0 % vnqi=471) NEUTROPHILS ABSOLUTE COUNT (BEAKER) (test 13.20 K/ L 1.78-5.38 xfvt=924) LYMPHOCYTES ABSOLUTE COUNT (BEAKER) (test 0.73 K/ L 1.32-3.57 boee=091) MONOCYTES ABSOLUTE COUNT (BEAKER) (test 1.51 K/ L 0.30-0.82 ibqq=797) EOSINOPHILS ABSOLUTE COUNT (BEAKER) (test 0.05 K/ L 0.04-0.54 nraj=935) BASOPHILS ABSOLUTE COUNT (BEAKER) (test 0.03 K/ L 0.01-0.08 ydjy=032) IMMATURE GRANULOCYTES-RELATIVE PERCENT (BEAKER) 1 % 0-1 (test qbjz=8307) POCT-GLUCOSE [id number] 05:38:00 Test Item Value Reference Range Comments POC-GLUCOSE METER (BEAKER) 154 mg/dL 70-110 TESTED AT [address] (test wove=4214) [facility] [address] POCT-GLUCOSE [id number] 00:02:00 Test Item Value Reference Range Comments POC-GLUCOSE METER (BEAKER) 160 mg/dL 70-110 TESTED AT [address] (test xznl=0741) [facility] [address] POCT-GLUCOSE [id number] 17:15:00 Test Item Value Reference Range Comments POC-GLUCOSE METER (BEAKER) 179 mg/dL 70-110 TESTED AT [address] (test navz=2228) [facility] [address] POCT-GLUCOSE [id number] 05:46:00 Test Item Value Reference Range Comments POC-GLUCOSE METER (BEAKER) 126 mg/dL 70-110 TESTED AT [address] (test jhkg=5472) [facility] [address] CBC W/PLT COUNT & AUTO [id number] 04:13:00 Test Item Value Reference Range Comments WHITE BLOOD CELL COUNT (BEAKER) (test thcm=980) 16.9 K/ L 3.5-10.5 RED BLOOD CELL COUNT (BEAKER) (test etep=666) 4.16 M/ L 4.63-6.08 HEMOGLOBIN (BEAKER) (test jsgq=566) 13.1 GM/DL 13.7-17.5 HEMATOCRIT (BEAKER) (test fcwl=264) 40.2 % 40.1-51.0 MEAN CORPUSCULAR VOLUME (BEAKER) (test hwji=732) 96.6 fL 79.0-92.2 MEAN CORPUSCULAR HEMOGLOBIN (BEAKER) (test 31.5 pg 25.7-32.2 pbvq=973) MEAN CORPUSCULAR HEMOGLOBIN CONC (BEAKER) (test 32.6 GM/DL 32.3-36.5 qmil=510) RED CELL DISTRIBUTION WIDTH (BEAKER) (test 17.1 % 11.6-14.4 rzli=596) PLATELET COUNT (BEAKER) (test kzsc=766) 202 K/CU MM 150-450 MEAN PLATELET VOLUME (BEAKER) (test durq=522) 11.0 fL 9.4-12.4 NUCLEATED RED BLOOD CELLS (BEAKER) (test 2 /100 WBC 0-0 idyp=193) NEUTROPHILS RELATIVE PERCENT (BEAKER) (test 85 % aftu=732) LYMPHOCYTES RELATIVE PERCENT (BEAKER) (test 6 % utnc=460) MONOCYTES RELATIVE PERCENT (BEAKER) (test 8 % okgi=851) EOSINOPHILS RELATIVE PERCENT (BEAKER) (test 0 % sdce=428) BASOPHILS RELATIVE PERCENT (BEAKER) (test 0 % aruu=661) NEUTROPHILS ABSOLUTE COUNT (BEAKER) (test 14.25 K/ L 1.78-5.38 qjok=742) LYMPHOCYTES ABSOLUTE COUNT (BEAKER) (test 0.97 K/ L 1.32-3.57 mjbf=842) MONOCYTES ABSOLUTE COUNT (BEAKER) (test 1.30 K/ L 0.30-0.82 enfr=198) EOSINOPHILS ABSOLUTE COUNT (BEAKER) (test 0.02 K/ L 0.04-0.54 sdiy=551) BASOPHILS ABSOLUTE COUNT (BEAKER) (test 0.04 K/ L 0.01-0.08 antg=424) IMMATURE GRANULOCYTES-RELATIVE PERCENT (BEAKER) 2 % 0-1 (test zkjv=4581) TSH/FREE T4 IF [id number] 04:05:00 Test Item Value Reference Range Comments THYROID STIMULATING HORMONE (BEAKER) (test 0.85 uIU/mL 0.35-4.94 oqjb=598) [id number] 03:41:00 Test Item Value Reference Range Comments MAGNESIUM (BEAKER) (test ivwf=283) 2.5 mg/dL 1.6-2.6 COMPREHENSIVE METABOLIC [id number] 03:41:00 Test Item Value Reference Range Comments TOTAL PROTEIN (BEAKER) 6.4 gm/dL 6.0-8.3 (test sfrd=293) ALBUMIN (BEAKER) (test 3.6 g/dL 3.5-5.0 flgu=2696) ALKALINE PHOSPHATASE 70 U/L 40-150 (BEAKER) (test mdsw=630) BILIRUBIN TOTAL (BEAKER) 3.3 mg/dL 0.2-1.2 (test mjnv=150) SODIUM (BEAKER) (test 136 meq/L 136-145 rjxu=097) POTASSIUM (BEAKER) (test 5.2 meq/L 3.5-5.1 rleg=071) CHLORIDE (BEAKER) (test 92 meq/L 98-107 rwqo=535) CO2 (BEAKER) (test 18 meq/L 22-29 isdb=249) BLOOD UREA NITROGEN 85 mg/dL 7-21 (BEAKER) (test wmyd=483) CREATININE (BEAKER) (test 9.03 mg/dL 0.57-1.25 oeya=735) GLUCOSE RANDOM (BEAKER) 130 mg/dL 70-105 (test kzlp=337) CALCIUM (BEAKER) (test 10.0 mg/dL 8.4-10.2 owuz=808) AST (SGOT) (BEAKER) (test 859 U/L 5-34 nvaa=289) ALT (SGPT) (BEAKER) (test 1588 U/L 6-55 iikh=218) EGFR (BEAKER) (test 6 mL/min/1.73 sq m ESTIMATED GFR IS NOT rvan=3071) ACCURATE CREATININE CLEARANCE IN PREDICTING GLOMERULAR FILTRATION RATE. ESTIMATED GFR IS NOT APPLICABLE FOR DIALYSIS PATIENTS. Specimen slightly ictericPROTHROMBIN [id number] 03:29:00 Test Item Value Reference Range Comments PROTIME (BEAKER) (test bsyg=884) 25.5 seconds 11.9-14.2 INR (BEAKER) (test habc=977) 2.5 <=5.9 RECOMMENDED COUMADIN/WARFARIN INR THERAPY RANGESSTANDARD DOSE: 2.0 - 3.0 Includes: PROPHYLAXIS forvenous thrombosis, systemic embolization; TREATMENT for venous thrombosis and/or pulmonary embolus.HIGH RISK: Target INR is 2.5-3.5 for patients with mechanical heart valves.POCT-GLUCOSE [id number] 23:42:00 Test Item Value Reference Range Comments POC-GLUCOSE METER (BEAKER) 79 mg/dL 70-110 TESTED AT [facility] [address] [facility] (test sodx=4661) [facility] [address] POCT-GLUCOSE [id number] 23:34:00 Test Item Value Reference Range Comments POC-GLUCOSE METER (BEAKER) 75 mg/dL 70-110 TESTED AT [facility] [address] [facility] (test jgcm=1197) [facility] [address] POCT-GLUCOSE [id number] 18:28:00 Test Item Value Reference Range Comments POC-GLUCOSE METER (BEAKER) 87 mg/dL 70-110 TESTED AT [address] (test tnre=5386) [facility] [address] LACTIC ACID, [id number] 14:47:00 Test Item Value Reference Range Comments LACTATE BLOOD VENOUS (2) (BEAKER) (test 5.3 mmol/L 0.5-2.2 oifx=8942) Specimen slightly ictericBASIC METABOLIC [id number] 14:40:00 Test Item Value Reference Range Comments SODIUM (BEAKER) (test 138 meq/L 136-145 nbyr=540) POTASSIUM (BEAKER) (test 5.0 meq/L 3.5-5.1 Specimen slightly xsjs=913) hemolyzed CHLORIDE (BEAKER) (test 94 meq/L 98-107 wkyo=269) CO2 (BEAKER) (test 21 meq/L 22-29 dkuo=332) BLOOD UREA NITROGEN 69 mg/dL 7-21 (BEAKER) (test txaa=203) CREATININE (BEAKER) (test 8.21 mg/dL 0.57-1.25 Specimen slightly umxs=409) hemolyzed GLUCOSE RANDOM (BEAKER) 84 mg/dL 70-105 (test weeh=805) CALCIUM (BEAKER) (test 9.6 mg/dL 8.4-10.2 cbzq=637) EGFR (BEAKER) (test 6 mL/min/1.73 sq m ESTIMATED GFR IS NOT numx=5843) ACCURATE CREATININE CLEARANCE IN PREDICTING GLOMERULAR FILTRATION RATE. ESTIMATED GFR IS NOT APPLICABLE FOR DIALYSIS PATIENTS. Specimen slightly [id number] 14:34:00 Test Item Value Reference Range Comments PARTIAL THROMBOPLASTIN TIME (BEAKER) (test 91.0 seconds 22.5-36.0 mtud=493) [id number] 14:30:00 Test Item Value Reference Range Comments AMMONIA (BEAKER) (test ooid=901) 96 mol/L 18-72 POCT-GLUCOSE [id number] 13:06:00 Test Item Value Reference Range Comments POC-GLUCOSE METER (BEAKER) 87 mg/dL 70-110 TESTED AT [address] (test wnvt=5422) [facility] [address] CD4 T CELL [id number] 09:28:00 Test Item Value Reference Range Comments TOTAL LYMPHOCYTES FC (BEAKER) (test povn=4293) 679 /cu mm CD3+ TOTAL T CELLS % FC (BEAKER) (test kvcr=0149) 81 % 49-84 CD3+ TOTAL T CELLS ABSOLUTE FC (BEAKER) (test 553 /cu mm 603-2,990 aind=5846) CD3+/CD8+ T SUPPRESSOR CELLS % FC (BEAKER) (test 13 % 10-40 dmge=8571) CD3+/CD8+ T SUPPRESSOR CELLS ABS FC (BEAKER) 86 /cu mm 125-1,312 (test xney=7464) CD3+/CD4+ T HELPER CELLS % FC (BEAKER) (test 69 % 28-63 grlz=1792) CD3+/CD4+ T HELPER CELLS ABS FC (BEAKER) (test 468 /cu mm 441-2,156 uqhz=8567) CD4/CD8 RATIO FC (BEAKER) (test qfkw=3596) 5.46 0.70-3.23 CD16+/CD56+ NATURAL KILLER CELLS % FC (BEAKER) 11 % 4-25 (test mvnn=9485) CD16+/CD56+ NATURAL KILLER CELLS ABS FC (BEAKER) 72 /cu mm 95-640 (test vaya=5377) CD19+ TOTAL B CELLS % FC (BEAKER) (test 7 % 6-27 ucyw=9652) CD19+ TOTAL B CELLS ABS FC (BEAKER) (test 49 /cu mm 107-698 zlvz=4246) CBC W/PLT COUNT & AUTO [id number] 08:53:00 Test Item Value Reference Range Comments WHITE BLOOD CELL COUNT (BEAKER) (test qaji=530) 19.6 K/ L 3.5-10.5 RED BLOOD CELL COUNT (BEAKER) (test dlll=054) 4.06 M/ L 4.63-6.08 HEMOGLOBIN (BEAKER) (test jsmv=799) 12.5 GM/DL 13.7-17.5 HEMATOCRIT (BEAKER) (test anms=352) 40.2 % 40.1-51.0 MEAN CORPUSCULAR VOLUME (BEAKER) (test dcol=557) 99.0 fL 79.0-92.2 MEAN CORPUSCULAR HEMOGLOBIN (BEAKER) (test 30.8 pg 25.7-32.2 lvts=495) MEAN CORPUSCULAR HEMOGLOBIN CONC (BEAKER) (test 31.1 GM/DL 32.3-36.5 zuiy=487) RED CELL DISTRIBUTION WIDTH (BEAKER) (test 16.5 % 11.6-14.4 dykb=523) PLATELET COUNT (BEAKER) (test aenu=400) 170 K/CU MM 150-450 MEAN PLATELET VOLUME (BEAKER) (test eipm=175) 11.3 fL 9.4-12.4 NUCLEATED RED BLOOD CELLS (BEAKER) (test 2 /100 WBC 0-0 fsjd=869) (CELLAVISION MANUAL DIFF)2018-07-28 08:53:00 Test Item Value Reference Range Comments NEUTROPHILS - REL (CELLAVISION)(BEAKER) (test 90 % msss=2920) LYMPHOCYTES - REL (CELLAVISION)(BEAKER) (test 3 % gcak=2232) MONOCYTES - REL (CELLAVISION)(BEAKER) (test 4 % kubw=3146) BANDS - REL (CELLAVISION)(BEAKER) (test 3 % 0-10 xocs=4838) NEUTROPHILS - ABS (CELLAVISION)(BEAKER) (test 17.64 K/ul 1.78-5.38 eati=4918) LYMPHOCYTES - ABS (CELLAVISION)(BEAKER) (test 0.59 K/ul 1.32-3.57 xfet=4180) MONOCYTES - ABS (CELLAVISION)(BEAKER) (test 0.78 K/uL 0.30-0.82 fxkx=3090) BANDS - ABS (CELLAVISION)(BEAKER) (test 0.59 K/uL 0.00-0.80 farn=6769) TOTAL COUNTED (BEAKER) (test hxeb=3629) 100 WBC MORPHOLOGY (BEAKER) (test vvoq=617) Normal PLT MORPHOLOGY (BEAKER) (test funq=648) Normal ANISOCYTOSIS (BEAKER) (test boqg=111) 1+ few MACROCYTES (BEAKER) (test kvci=950) 1+ few POIKILOCYTES (BEAKER) (test ungt=405) 1+ few ARTIFACT (CELLAVISION)(BEAKER) (test ftbp=3399) Present PLATELET CONCENTRATION (CELLAVISION)(BEAKER) Adequate (test ohpr=4270) Received comment: User comments: Slide comments:[id number] 08:35:00 Test Item Value Reference Range Comments PARTIAL THROMBOPLASTIN TIME (BEAKER) (test 74.6 seconds 22.5-36.0 cywv=974) PROTHROMBIN [id number] 08:34:00 Test Item Value Reference Range Comments PROTIME (BEAKER) (test icoy=179) 25.2 seconds 11.7-14.7 INR (BEAKER) (test rutb=115) 2.4 <=5.9 RECOMMENDED COUMADIN/WARFARIN INR THERAPY RANGESSTANDARD DOSE: 2.0 - 3.0 Includes: PROPHYLAXIS forvenous thrombosis, systemic embolization; TREATMENT for venous thrombosis and/or pulmonary embolus.HIGH RISK: Target INR is 2.5-3.5 for patients with mechanical heart valves.LACTIC ACID, [id number] 08:32:00 Test Item Value Reference Range Comments LACTATE BLOOD VENOUS (2) 5.7 mmol/L 0.5-2.2 Specimen slightly hemolyzed (BEAKER) (test skqz=0229) POCT-GLUCOSE [id number] 08:20:00 Test Item Value Reference Range Comments POC-GLUCOSE METER (BEAKER) 88 mg/dL 70-110 TESTED AT [address] (test sodx=1301) [facility] [address] [id number] 05:11:00 Test Item Value Reference Range Comments PHOSPHORUS (BEAKER) (test rvaw=544) 10.5 mg/dL 2.3-4.7 COMPREHENSIVE METABOLIC [id number] 04:58:00 Test Item Value Reference Range Comments TOTAL PROTEIN (BEAKER) 6.3 gm/dL 6.0-8.3 (test upqt=114) ALBUMIN (BEAKER) (test 3.5 g/dL 3.5-5.0 lhin=3285) ALKALINE PHOSPHATASE 65 U/L 40-150 (BEAKER) (test zgfn=557) BILIRUBIN TOTAL (BEAKER) 2.3 mg/dL 0.2-1.2 (test zztq=252) SODIUM (BEAKER) (test 139 meq/L 136-145 nqws=018) POTASSIUM (BEAKER) (test 5.0 meq/L 3.5-5.1 awfk=965) CHLORIDE (BEAKER) (test 95 meq/L 98-107 ftvd=039) CO2 (BEAKER) (test 22 meq/L 22-29 gggc=451) BLOOD UREA NITROGEN 61 mg/dL 7-21 (BEAKER) (test vtet=797) CREATININE (BEAKER) (test 7.77 mg/dL 0.57-1.25 gskk=081) GLUCOSE RANDOM (BEAKER) 79 mg/dL 70-105 (test kgth=355) CALCIUM (BEAKER) (test 9.8 mg/dL 8.4-10.2 ytje=120) AST (SGOT) (BEAKER) (test 1175 U/L 5-34 bfra=106) ALT (SGPT) (BEAKER) (test 1724 U/L 6-55 xhed=474) EGFR (BEAKER) (test 7 mL/min/1.73 sq m ESTIMATED GFR IS NOT xyyu=3162) ACCURATE CREATININE CLEARANCE IN PREDICTING GLOMERULAR FILTRATION RATE. ESTIMATED GFR IS NOT APPLICABLE FOR DIALYSIS PATIENTS. Specimen slightly ictericPTH, [id number] 04:57:00 Test Item Value Reference Range Comments PARATHYROID HORMONE INTACT (BEAKER) (test 578.6 pg/mL 8.5-72.5 lvxb=141) [id number] 02:13:00 Test Item Value Reference Range Comments PARTIAL THROMBOPLASTIN TIME (BEAKER) (test 53.4 seconds 22.5-36.0 hkbh=341) [id number] 01:40:00 Test Item Value Reference Range Comments PARTIAL THROMBOPLASTIN TIME (BEAKER) (test > seconds 22.5-36.0 ocrf=731) BASIC METABOLIC [id number] 00:55:00 Test Item Value Reference Range Comments SODIUM (BEAKER) (test 136 meq/L 136-145 atgs=643) POTASSIUM (BEAKER) (test 4.8 meq/L 3.5-5.1 uvvc=721) CHLORIDE (BEAKER) (test 95 meq/L 98-107 grgo=058) CO2 (BEAKER) (test 20 meq/L 22-29 aemi=168) BLOOD UREA NITROGEN 54 mg/dL 7-21 (BEAKER) (test dlzk=377) CREATININE (BEAKER) (test 7.39 mg/dL 0.57-1.25 jbfa=298) GLUCOSE RANDOM (BEAKER) 106 mg/dL 70-105 (test vorx=255) CALCIUM (BEAKER) (test 9.6 mg/dL 8.4-10.2 yyxt=180) EGFR (BEAKER) (test 7 mL/min/1.73 sq m ESTIMATED GFR IS NOT effp=6635) ACCURATE CREATININE CLEARANCE IN PREDICTING GLOMERULAR FILTRATION RATE. ESTIMATED GFR IS NOT APPLICABLE FOR DIALYSIS PATIENTS. Specimen slightly ictericPOCT-GLUCOSE [id number] 00:15:00 Test Item Value Reference Range Comments POC-GLUCOSE METER (BEAKER) 123 mg/dL 70-110 TESTED AT [address] (test dgvi=4619) [place] [address] POCT-GLUCOSE [id number] 18:01:00 Test Item Value Reference Range Comments POC-GLUCOSE METER (BEAKER) 90 mg/dL 70-110 TESTED AT [address] (test ufag=3620) [place] [address] [id number] 17:47:00 Test Item Value Reference Range Comments PARTIAL THROMBOPLASTIN TIME (BEAKER) (test 56.1 seconds 22.5-36.0 ttvz=012) POCT-GLUCOSE [id number] 17:27:00 Test Item Value Reference Range Comments POC-GLUCOSE METER (BEAKER) 99 mg/dL 70-110 TESTED AT [address] (test ucxc=2324) [place] [address] RESPIRATORY PANEL [id number] 10:42:00 Test Item Value Reference Range Comments HUMAN METAPNEUMOVIRUS (BEAKER) (test Not detected Not detected, Equivocal hhhu=8200) RHINOVIRUS (BEAKER) (test mhbg=5703) Not detected Not detected, Equivocal INFLUENZA A (BEAKER) (test dwma=6240) Not detected Not detected, Equivocal INFLUENZA A (NO SUBTYPE) (test Not detected, Equivocal hawm=1048) INFLUENZA A SUBTYPE H1 (BEAKER) (test Not detected, Equivocal mxsk=7081) INFLUENZA A SUBTYPE H3 (BEAKER) (test Not detected, Equivocal ynfr=4370) INFLUENZA A SUBTYPE H1-2009 (BEAKER) Not detected, Equivocal (test doti=5915) INFLUENZA B (BEAKER) (test xvny=9421) Not detected Not detected, Equivocal RESPIRATORY SYNCYTIAL VIRUS (BEAKER) Not detected Not detected, Equivocal (test lplq=1090) PARAINFLUENZA VIRUS 1 (BEAKER) (test Not detected Not detected, Equivocal cgda=4525) PARAINFLUENZA VIRUS 2 (BEAKER) (test Not detected Not detected, Equivocal ltnt=3314) PARAINFLUENZA VIRUS 3 (BEAKER) (test Not detected Not detected, Equivocal mokh=6576) PARAINFLUENZA VIRUS 4 (BEAKER) (test Not detected Not detected, Equivocal ixta=3696) ADENOVIRUS (BEAKER) (test ojwa=3942) Not detected Not detected, Equivocal CORONAVIRUS 229E (BEAKER) (test Not detected Not detected, Equivocal gcpg=4268) CORONAVIRUS HKU1 (BEAKER) (test Not detected Not detected, Equivocal mwah=2312) CORONAVIRUS NL63 (BEAKER) (test Not detected Not detected, Equivocal ibrw=8255) CORONAVIRUS OC43 (BEAKER) (test Not detected Not detected, Equivocal ahlt=4473) BORDETELLA PERTUSSIS (BEAKER) (test Not detected Not detected, Equivocal tnau=5397) CHLAMYDOPHILA PNEUMONIAE (BEAKER) (test Not detected Not detected, Equivocal ddgq=5415) MYCOPLASMA PNEUMONIAE (BEAKER) (test Not detected Not detected, Equivocal dukn=7674) Other viruses and bacteria not targeted by this PCR panel cannot be excluded; therefore clinical correlation and follow up of serology, culture results, and other molecular studies is required. The results are not intended to be used as the sole means for clinical diagnosis or patient management decisions. This sample was tested at the [facility] using the AddMyBestArray Respiratory Panel. It is FDA cleared and has been verified and approved by the [facility] for clinical use on nasopharyngeal swab specimens.The performance of the FilmArrayRP has not been established in individuals who received influenza vaccine. Recent administration ofa nasal influenza vaccine may cause false positive results for Influenza A and/orInfluenza B.PT/[id number] 10:30:00 Test Item Value Reference Range Comments PROTIME (BEAKER) (test rdld=100) 22.7 seconds 11.7-14.7 INR (BEAKER) (test llne=742) 2.1 <=5.9 PARTIAL THROMBOPLASTIN TIME (BEAKER) (test 51.6 seconds 22.5-36.0 gkti=621) RECOMMENDED COUMADIN/WARFARIN INR THERAPY RANGESSTANDARD DOSE: 2.0 - 3.0 Includes: PROPHYLAXIS forvenous thrombosis, systemic embolization; TREATMENT for venous thrombosis and/or pulmonary embolus.HIGH RISK: Target INR is 2.5-3.5 for patients with mechanical heart valves.HEPATITIS B SURFACE [id number] 09:41:00 Test Item Value Reference Range Comments HEPATITIS B SURFACE ANTIGEN (2) (2CRisk) (test Nonreactive Nonreactive ydok=1810) For chronic HD patients, draw HBsAg with each admission then every 30 days.TROPONIN [id number] 07:24:00 Test Item Value Reference Range Comments TROPONIN I (BEAKER) (test xwth=561) 0.98 ng/mL 0.00-0.03 Troponin I (TnI) levels must be interpreted in the context of the presenting symptoms and the clinical findings. Elevated TnI levels indicate myocardial damage, but are not specific for ischemic heart disease. Elevated TnI levels are seen in patients with other cardiac conditions (including myocarditis and congestive heart failure), and slight TnI elevations occur in patients with other conditions, including sepsis, renal failure, acidosis, acute neurological disease, and persistent tachyarrhythmia.POCT-GLUCOSE [id number] 06:38:00 Test Item Value Reference Range Comments POC-GLUCOSE METER (2CRisk) 108 mg/dL 70-110 TESTED AT [address] (test hbja=5371) [facility] [address] TROPONIN [id number] 02:40:00 Test Item Value Reference Range Comments TROPONIN I (2CRisk) (test idir=395) 1.10 ng/mL 0.00-0.03 Troponin I (TnI) levels must be interpreted in the context of the presenting symptoms and the clinical findings. Elevated TnI levels indicate myocardial damage, but are not specific for ischemic heart disease. Elevated TnI levels are seen in patients with other cardiac conditions (including myocarditis and congestive heart failure), and slight TnI elevations occur in patients with other conditions, including sepsis, renal failure, acidosis, acute neurological disease, and persistent tachyarrhythmia.COMPREHENSIVE METABOLIC [id number] 02:40:00 Test Item Value Reference Range Comments TOTAL PROTEIN (ApportableAKER) 6.6 gm/dL 6.0-8.3 (test fnnh=273) ALBUMIN (BEAKER) (test 3.7 g/dL 3.5-5.0 luos=9089) ALKALINE PHOSPHATASE 58 U/L 40-150 (BEAKER) (test wweu=049) BILIRUBIN TOTAL (BEAKER) 1.6 mg/dL 0.2-1.2 (test wbcg=331) SODIUM (BEAKER) (test 138 meq/L 136-145 luzf=202) POTASSIUM (BEAKER) (test 4.9 meq/L 3.5-5.1 facn=963) CHLORIDE (BEAKER) (test 94 meq/L 98-107 acxz=358) CO2 (BEAKER) (test 21 meq/L 22-29 ueuv=596) BLOOD UREA NITROGEN 99 mg/dL 7-21 (BEAKER) (test dcmw=580) CREATININE (BEAKER) (test 10.86 mg/dL 0.57-1.25 yajf=612) GLUCOSE RANDOM (BEAKER) 126 mg/dL 70-105 (test arvm=451) CALCIUM (BEAKER) (test 10.5 mg/dL 8.4-10.2 yspl=696) AST (SGOT) (BEAKER) (test 1853 U/L 5-34 ijgm=782) ALT (SGPT) (BEAKER) (test 1752 U/L 6-55 bejv=249) EGFR (BEAKER) (test 5 mL/min/1.73 sq m ESTIMATED GFR IS NOT hmoj=3720) ACCURATE CREATININE CLEARANCE IN PREDICTING GLOMERULAR FILTRATION RATE. ESTIMATED GFR IS NOT APPLICABLE FOR DIALYSIS PATIENTS. [id number] 02:39:00 Test Item Value Reference Range Comments PHOSPHORUS (BEAKER) (test nrik=622) 12.8 mg/dL 2.3-4.7 CBC W/PLT COUNT & AUTO [id number] 02:33:00 Test Item Value Reference Range Comments WHITE BLOOD CELL COUNT (BEAKER) (test ozvn=745) 13.2 K/ L 3.5-10.5 RED BLOOD CELL COUNT (BEAKER) (test zglz=333) 3.75 M/ L 4.63-6.08 HEMOGLOBIN (BEAKER) (test hyhg=119) 11.6 GM/DL 13.7-17.5 HEMATOCRIT (BEAKER) (test ijda=958) 35.4 % 40.1-51.0 MEAN CORPUSCULAR VOLUME (BEAKER) (test kxku=776) 94.4 fL 79.0-92.2 MEAN CORPUSCULAR HEMOGLOBIN (BEAKER) (test 30.9 pg 25.7-32.2 ldxr=163) MEAN CORPUSCULAR HEMOGLOBIN CONC (BEAKER) (test 32.8 GM/DL 32.3-36.5 txbw=116) RED CELL DISTRIBUTION WIDTH (BEAKER) (test 15.4 % 11.6-14.4 ceyv=483) PLATELET COUNT (BEAKER) (test oxal=950) 144 K/CU MM 150-450 MEAN PLATELET VOLUME (BEAKER) (test fmzr=725) 11.1 fL 9.4-12.4 NUCLEATED RED BLOOD CELLS (BEAKER) (test 1 /100 WBC 0-0 cggo=096) NEUTROPHILS RELATIVE PERCENT (BEAKER) (test 82 % avjb=729) LYMPHOCYTES RELATIVE PERCENT (BEAKER) (test 6 % knsd=365) MONOCYTES RELATIVE PERCENT (BEAKER) (test 10 % aapk=028) EOSINOPHILS RELATIVE PERCENT (BEAKER) (test 1 % heho=217) BASOPHILS RELATIVE PERCENT (BEAKER) (test 0 % fvyn=128) NEUTROPHILS ABSOLUTE COUNT (BEAKER) (test 10.82 K/ L 1.78-5.38 rqnn=957) LYMPHOCYTES ABSOLUTE COUNT (BEAKER) (test 0.84 K/ L 1.32-3.57 xyoj=576) MONOCYTES ABSOLUTE COUNT (BEAKER) (test 1.32 K/ L 0.30-0.82 feww=577) EOSINOPHILS ABSOLUTE COUNT (BEAKER) (test 0.08 K/ L 0.04-0.54 vtjn=896) BASOPHILS ABSOLUTE COUNT (BEAKER) (test 0.04 K/ L 0.01-0.08 zoou=230) IMMATURE GRANULOCYTES-RELATIVE PERCENT (BEAKER) 1 % 0-1 (test fkot=1049) BASIC METABOLIC [id number] 02:32:00 Test Item Value Reference Range Comments SODIUM (BEAKER) (test 138 meq/L 136-145 dgfg=758) POTASSIUM (BEAKER) (test 4.9 meq/L 3.5-5.1 pomm=320) CHLORIDE (BEAKER) (test 94 meq/L 98-107 wfit=218) CO2 (BEAKER) (test 21 meq/L 22-29 uolr=179) BLOOD UREA NITROGEN 99 mg/dL 7-21 (BEAKER) (test kson=543) CREATININE (BEAKER) (test 10.86 mg/dL 0.57-1.25 fvzw=835) GLUCOSE RANDOM (BEAKER) 126 mg/dL 70-105 (test shfs=772) CALCIUM (BEAKER) (test 10.5 mg/dL 8.4-10.2 hter=616) EGFR (BEAKER) (test 5 mL/min/1.73 sq m ESTIMATED GFR IS NOT dcqv=3193) ACCURATE CREATININE CLEARANCE IN PREDICTING GLOMERULAR FILTRATION RATE. ESTIMATED GFR IS NOT APPLICABLE FOR DIALYSIS PATIENTS. [id number] 02:26:00 Test Item Value Reference Range Comments PARTIAL THROMBOPLASTIN TIME (BEAKER) (test 49.1 seconds 22.5-36.0 ebni=233) LACTIC ACID, [id number] 02:00:00 Test Item Value Reference Range Comments LACTATE BLOOD VENOUS (2) (BEAKER) (test 2.7 mmol/L 0.5-2.2 azlh=9667) POCT-GLUCOSE [id number] 23:58:00 Test Item Value Reference Range Comments POC-GLUCOSE METER (BEAKER) 105 mg/dL 70-110 TESTED AT [facility] [address] [facility] (test ddtt=2343) [facility] [address] BLOOD GAS, [id number] 22:15:00 Test Item Value Reference Range Comments PH ARTERIAL (BEAKER) (test dtao=207) 7.39 7.35-7.45 PCO2 ARTERIAL (BEAKER) (test ugtb=403) 36 mmHg 35-45 PO2 ARTERIAL (BEAKER) (test qgab=217) 209 mmHg 80-90 O2 SATURATION ARTERIAL (BEAKER) (test csnw=281) 99.4 % 96.0-97.0 HCO3 ARTERIAL (BEAKER) (test nzpq=440) 21 mmol/L 21-29 BASE EXCESS ARTERIAL (BEAKER) (test only=461) -3.3 mmol/L -2.0-3.0 PATIENT TEMPERATURE (BEAKER) (test bukb=0728) 36.5 C FIO2 (BEAKER) (test lsyc=9001) 50.0 % HEMOGLOBIN [id number] 21:35:00 Test Item Value Reference Range Comments HEMOGLOBIN A1C (BEAKER) (test qcuo=536) 5.8 % 4.3-6.1 TROPONIN [id number] 21:06:00 Test Item Value Reference Range Comments TROPONIN I (BEAKER) (test icwe=064) 1.34 ng/mL 0.00-0.03 Troponin I (TnI) levels must be interpreted in the context of the presenting symptoms and the clinical findings. Elevated TnI levels indicate myocardial damage, but are not specific for ischemic heart disease. Elevated TnI levels are seen in patients with other cardiac conditions (including myocarditis and congestive heart failure), and slight TnI elevations occur in patients with other conditions, including sepsis, renal failure, acidosis, acute neurological disease, and persistent tachyarrhythmia.BASIC METABOLIC [id number] 20:49:00 Test Item Value Reference Range Comments SODIUM (BEAKER) (test 136 meq/L 136-145 kikq=863) POTASSIUM (BEAKER) (test 5.9 meq/L 3.5-5.1 Specimen slightly iykn=177) hemolyzed CHLORIDE (BEAKER) (test 94 meq/L 98-107 ihwk=986) CO2 (BEAKER) (test 19 meq/L 22-29 loih=630) BLOOD UREA NITROGEN 93 mg/dL 7-21 (BEAKER) (test llet=129) CREATININE (BEAKER) (test 10.26 mg/dL 0.57-1.25 Specimen slightly sfns=312) hemolyzed GLUCOSE RANDOM (BEAKER) 65 mg/dL 70-105 (test duen=601) CALCIUM (BEAKER) (test 10.6 mg/dL 8.4-10.2 vjam=948) EGFR (BEAKER) (test 5 mL/min/1.73 sq m ESTIMATED GFR IS NOT ents=4649) ACCURATE CREATININE CLEARANCE IN PREDICTING GLOMERULAR FILTRATION RATE. ESTIMATED GFR IS NOT APPLICABLE FOR DIALYSIS PATIENTS. LACTIC ACID, [id number] 20:44:00 Test Item Value Reference Range Comments LACTATE BLOOD VENOUS (2) 3.1 mmol/L 0.5-2.2 Specimen slightly hemolyzed (BEAKER) (test zunl=7656) [id number] 20:38:00 Test Item Value Reference Range Comments PARTIAL THROMBOPLASTIN TIME (BEAKER) (test 37.2 seconds 22.5-36.0 djjg=079) POCT-GLUCOSE [id number] 19:57:00 Test Item Value Reference Range Comments POC-GLUCOSE METER (BEAKER) 84 mg/dL 70-110 TESTED AT [address] (test ddsb=1874) [place] [id number] [place], BRAIN, WITHOUT [id number] 19:39:00FINAL REPORT CT Head without contrast CLINICAL HISTORY: Decreased alertness TECHNIQUE: Contiguous axial images through the head without contrast. This exam was performed according to the departmental dose optimization program which includes automated exposure control, adjustmentof the mA and/or kV according to the patient size, and/or use of an iterative reconstruction technique. COMPARISON: None FINDINGS: There is no CT evidence of acute infarct or intracranial hemorrhage. There is periventricular and subcortical white matter hypodensity which is nonspecific but compatible with chronic microvascular ischemic change. There are atherosclerotic calcifications of the intracranial circulation. There is generalized parenchymal volume loss without hydrocephalus , midline shift, or apparent mass effect. Basilar cisterns are patent. There are no extra-axial fluid collections. The skull is intact. The visualized paranasal sinuses are well-aerated. Intraorbital contents are unremarkable. IMPRESSION: No CT evidence of acute intercranial abnormality. Signed: Gisel Vega Verified Date/Time: 07/26/2018 19:39:58 Reading Location: [address] Transitional Reading Room POCT-GLUCOSE [id number] 19:06:00 Test Item Value Reference Range Comments POC-GLUCOSE METER (BEAKER) 61 mg/dL 70-110 TESTED AT [address] (test nrna=3222) [place] [id number] POCT-GLUCOSE [id number] 14:25:00 Test Item Value Reference Range Comments POC-GLUCOSE METER (BEAKER) 85 mg/dL 70-110 TESTED AT [address] (test clzn=4230) [place] [id number] CBC W/PLT COUNT & AUTO [id number] 13:27:00 Test Item Value Reference Range Comments WHITE BLOOD CELL COUNT (BEAKER) (test ctcs=561) 14.8 K/ L 3.5-10.5 RED BLOOD CELL COUNT (BEAKER) (test sscu=331) 3.85 M/ L 4.63-6.08 HEMOGLOBIN (BEAKER) (test zwbw=796) 12.0 GM/DL 13.7-17.5 HEMATOCRIT (BEAKER) (test wram=220) 36.5 % 40.1-51.0 MEAN CORPUSCULAR VOLUME (BEAKER) (test wfok=031) 94.8 fL 79.0-92.2 MEAN CORPUSCULAR HEMOGLOBIN (BEAKER) (test 31.2 pg 25.7-32.2 nbuv=182) MEAN CORPUSCULAR HEMOGLOBIN CONC (BEAKER) (test 32.9 GM/DL 32.3-36.5 pbek=072) RED CELL DISTRIBUTION WIDTH (BEAKER) (test 15.5 % 11.6-14.4 gygl=572) PLATELET COUNT (BEAKER) (test ldyd=902) 156 K/CU MM 150-450 MEAN PLATELET VOLUME (BEAKER) (test ofki=138) 11.0 fL 9.4-12.4 NUCLEATED RED BLOOD CELLS (BEAKER) (test 0 /100 WBC 0-0 ldqa=218) (CELLAVISION MANUAL DIFF)2018-07-26 13:27:00 Test Item Value Reference Range Comments NEUTROPHILS - REL (CELLAVISION)(BEAKER) (test 86 % kjwq=4696) LYMPHOCYTES - REL (CELLAVISION)(BEAKER) (test 2 % gmfu=1829) MONOCYTES - REL (CELLAVISION)(BEAKER) (test 11 % ktkk=6467) EOSINOPHILS - REL (CELLAVISION)(BEAKER) (test 1 % bvek=2286) NEUTROPHILS - ABS (CELLAVISION)(BEAKER) (test 12.73 K/ul 1.78-5.38 ocgi=8444) LYMPHOCYTES - ABS (CELLAVISION)(BEAKER) (test 0.30 K/ul 1.32-3.57 vlgk=1079) MONOCYTES - ABS (CELLAVISION)(BEAKER) (test 1.63 K/uL 0.30-0.82 cjjd=5856) EOSINOPHILS - ABS (CELLAVISION)(BEAKER) (test 0.15 K/uL 0.04-0.54 lryb=1964) TOTAL COUNTED (BEAKER) (test koll=5692) 100 WBC MORPHOLOGY (BEAKER) (test budz=606) Normal PLT MORPHOLOGY (BEAKER) (test sasn=469) Normal ANISOCYTOSIS (BEAKER) (test rwrd=694) 1+ few POIKILOCYTES (BEAKER) (test vcji=880) 1+ few ARTIFACT (CELLAVISION)(BEAKER) (test mtgu=1705) Present PLATELET CONCENTRATION (CELLAVISION)(BEAKER) Adequate (test xpiz=4949) Received comment: User comments: Slide comments:[id number] 13:23:00 Test Item Value Reference Range Comments PROCALCITONIN (BEAKER) (test kvwh=9903) 0.72 ng/mL <0.05 SEPSIS RISK (ng/mL)Low: 0.05-0.50Intermediate: 0.51-2.00High: & gt;=2.01TROPONIN [id number] 12:55:00 Test Item Value Reference Range Comments TROPONIN I (BEAKER) (test cpzb=404) 1.34 ng/mL 0.00-0.03 Troponin I (TnI) levels must be interpreted in the context of the presenting symptoms and the clinical findings. Elevated TnI levels indicate myocardial damage, but are not specific for ischemic heart disease. Elevated TnI levels are seen in patients with other cardiac conditions (including myocarditis and congestive heart failure), and slight TnI elevations occur in patients with other conditions, including sepsis, renal failure, acidosis, acute neurological disease, and persistent tachyarrhythmia.COMPREHENSIVE METABOLIC [id number] 12:50:00 Test Item Value Reference Range Comments TOTAL PROTEIN (BEAKER) 6.6 gm/dL 6.0-8.3 (test ckxm=584) ALBUMIN (BEAKER) (test 3.8 g/dL 3.5-5.0 hbla=5600) ALKALINE PHOSPHATASE 56 U/L 40-150 (BEAKER) (test euhn=753) BILIRUBIN TOTAL (BEAKER) 1.4 mg/dL 0.2-1.2 (test kvbd=470) SODIUM (BEAKER) (test 135 meq/L 136-145 hvsu=245) POTASSIUM (BEAKER) (test 5.7 meq/L 3.5-5.1 kjtj=139) CHLORIDE (BEAKER) (test 94 meq/L 98-107 lgbh=959) CO2 (BEAKER) (test 19 meq/L 22-29 bqpf=147) BLOOD UREA NITROGEN 90 mg/dL 7-21 (BEAKER) (test oxdo=938) CREATININE (BEAKER) (test 9.76 mg/dL 0.57-1.25 fjfl=365) GLUCOSE RANDOM (BEAKER) 88 mg/dL 70-105 (test hzaf=388) CALCIUM (BEAKER) (test 10.4 mg/dL 8.4-10.2 hamj=197) AST (SGOT) (BEAKER) (test 2387 U/L 5-34 faam=042) ALT (SGPT) (BEAKER) (test 1730 U/L 6-55 eziv=457) EGFR (BEAKER) (test 5 mL/min/1.73 sq m ESTIMATED GFR IS NOT ivnn=5304) ACCURATE CREATININE CLEARANCE IN PREDICTING GLOMERULAR FILTRATION RATE. ESTIMATED GFR IS NOT APPLICABLE FOR DIALYSIS PATIENTS. PROTHROMBIN [id number] 12:47:00 Test Item Value Reference Range Comments PROTIME (BEAKER) (test wdzf=958) 23.2 seconds 11.7-14.7 INR (BEAKER) (test flja=873) 2.2 <=5.9 RECOMMENDED COUMADIN/WARFARIN INR THERAPY RANGESSTANDARD DOSE: 2.0 - 3.0 Includes: PROPHYLAXIS forvenous thrombosis, systemic embolization; TREATMENT for venous thrombosis and/or pulmonary embolus.HIGH RISK: Target INR is 2.5-3.5 for patients with mechanical heart valves.B-TYPE NATRIURETIC FACTOR (BNP)2018-07 12:47:00 Test Item Value Reference Range Comments B-TYPE NATRIURETIC PEPTIDE (BEAKER) (test 4832 pg/mL 0-100 tcaq=904) [id number] 12:45:00 Test Item Value Reference Range Comments LIPASE (BEAKER) (test ncsp=951) 18 U/L 8-78 HEPATIC FUNCTION [id number] 12:45:00 Test Item Value Reference Range Comments TOTAL PROTEIN (BEAKER) (test xwxo=360) 6.6 gm/dL 6.0-8.3 ALBUMIN (BEAKER) (test inwz=7294) 3.8 g/dL 3.5-5.0 BILIRUBIN TOTAL (BEAKER) (test ajjr=827) 1.4 mg/dL 0.2-1.2 BILIRUBIN DIRECT (BEAKER) (test cvvl=647) 1.1 mg/dL 0.1-0.5 ALKALINE PHOSPHATASE (BEAKER) (test bzmi=815) 56 U/L 40-150 AST (SGOT) (BEAKER) (test qomn=429) 2387 U/L 5-34 ALT (SGPT) (BEAKER) (test ungj=349) 1730 U/L 6-55 LACTIC ACID, [id number] 12:39:00 Test Item Value Reference Range Comments LACTATE BLOOD VENOUS (2) 3.2 mmol/L 0.5-2.2 Specimen slightly hemolyzed (BEAKER) (test efpo=2630) BLOOD GAS, [id number] 12:25:00 Test Item Value Reference Range Comments PH ARTERIAL (BEAKER) (test cqvl=013) 7.35 7.35-7.45 PCO2 ARTERIAL (BEAKER) (test lcqz=668) 41 mmHg 35-45 PO2 ARTERIAL (BEAKER) (test rqjd=473) 85 mmHg 80-90 O2 SATURATION ARTERIAL (BEAKER) (test tmop=983) 96.2 % 96.0-97.0 HCO3 ARTERIAL (BEAKER) (test ptdt=499) 22 mmol/L 21-29 BASE EXCESS ARTERIAL (BEAKER) (test siyl=989) -3.4 mmol/L -2.0-3.0 PATIENT TEMPERATURE (BEAKER) (test gybs=9934) 36.4 C FIO2 (BEAKER) (test wvfd=7161) 28.0 % POCT-GLUCOSE [id number] 12:21:00 Test Item Value Reference Range Comments POC-GLUCOSE METER (BEAKER) 83 mg/dL 70-110 TESTED AT [facility] [address] [facility] (test lgsp=7698) [place] [address] U/S, ABDOMINAL, [id number] 11:45:00Abdomen limited area? Add comment if clarification is needed.->LiverReason for exam:->TransaminitisShould this be performed at the bedside?->YesFINAL REPORT INDICATION: Abnormal liver function tests. TECHNIQUE: Abdominal ultrasound limited (right upper quadrant). COMPARISON: None. FINDINGS:Pancreas to the extent visualized unremarkable.Liver echotexture, contour, and size unremarkable.Main portal vein patent and normal in diameter measuring 0.9 cm.Transverse diameter of the gallbladder is 3.0 cm.No pericholecystic fluid and no gallstones.Common bile duct not visualized.Intrahepatic cava and hepatic veins are prominent.Right kidney measures 10.1 x 4.8 x 4.3 cm.Proximal abdominal aorta and visualized part of the IVC unremarkable.Distal abdominal aorta not visualized because of bowel gas. IMPRESSION: Unremarkable rightupper quadrant ultrasound exam. Signed: Nolan Martinez [facility] Verified Date/Time : 07/26/2018 11:45:22 Reading Location: [address] Body Reading Room RAD , CHEST, 1 VIEW, NON [id number] 11:10:00Reason for exam:->Persistent coughShould this be performed at the bedside?->YesFINAL REPORT INDICATION: Persistent cough COMPARISON: None TECHNIQUE: Single frontal view of the chest. FINDINGS: Lungs and pleura: Clear lungs. No effusion.Heart and mediastinum: Normal heart size. Unremarkable mediastinal contours.Osseous structures: No acute abnormality.Other: Stent material is noted in the left subclavian region. IMPRESSION: No acute intrathoracic abnormality. Signed: JR Biggs Robert MDReport Verified Date/Time: 11:10:13 Reading Location: [facility] C013V Neuro Reading Room RAD, CHEST, 2 [id number] 18:51:00Reason for exam:->ABNORMAL IMAGING RESULTFINAL REPORT Chest, 2 views, 03/23/2018 6:20 PM. Comparison: None available. Discussion: The cardiac silhouette is mildly enlarged but the pulmonary vasculature is within normallimits. Linear opacities are present at the lung bases with minimal blunting of the costophrenic sulci. There are no acute osseous abnormalities. Left subclavian vascular stent is noted. The soft tissues are unremarkable. IMPRESSION: Mild cardiomegaly with bibasilar atelectasis and small bilateral pleural effusions, but no evidence of myla pulmonary edema. Signed: Gallo Delgado MDReport Verified Date/Time: 18:51:08 Reading Location: [facility] C013W Consult Reading Room Electronicallysigned by: GALLO DELGADO M.D. on 03/23/2018 06:51 PMB-TYPE NATRIURETIC FACTOR (BNP)2018-03-23 18:29:00 Test Item Value Reference Range Comments B-TYPE NATRIURETIC PEPTIDE (BEAKER) (test 1420 pg/mL 0-100 wkxj=434) RAPID [id number] 18:27:00 Test Item Value Reference Range Comments RAPID MYOGLOBIN (BEAKER) (test ounr=6159) 438 ng/mL <107 RAPID [id number] 18:27:00 Test Item Value Reference Range Comments RAPID CKMB (BEAKER) (test nyyh=5507) 3.2 ng/mL 0.0-4.3 RAPID TROPONIN [id number] 18:27:00 Test Item Value Reference Range Comments RAPID TROPONIN I (BEAKER) (test lwfe=4765) < ng/mL <0.05 [id number] 18:23:00 Test Item Value Reference Range Comments PROTIME (BEAKER) (test edus=354) 11.3 seconds 9.8-12.0 INR (BEAKER) (test jndu=076) 1.1 <=5.9 PARTIAL THROMBOPLASTIN TIME (BEAKER) (test 22.5 seconds 25.8-34.5 mliz=716) RECOMMENDED COUMADIN/WARFARIN INR THERAPY RANGESSTANDARD DOSE: 2.0 - 3.0 Includes: PROPHYLAXIS forvenous thrombosis, systemic embolization; TREATMENT for venous thrombosis and/or pulmonary embolus.HIGH RISK: Target INR is 2.5-3.5 for patients with mechanical heart valves.BASIC METABOLIC [id number] 18:21: 00 Test Item Value Reference Range Comments SODIUM (BEAKER) (test 138 meq/L 135-148 xsxz=538) POTASSIUM (BEAKER) (test 4.7 meq/L 3.6-5.5 rbfs=415) CHLORIDE (BEAKER) (test 99 meq/L 98-106 xysz=050) CO2 (BEAKER) (test 29 meq/L 24-32 cwlu=910) BLOOD UREA NITROGEN 36 mg/dL 10-26 (BEAKER) (test yvnp=946) CREATININE (BEAKER) (test 5.15 mg/dL 0.50-1.20 shfc=659) GLUCOSE RANDOM (BEAKER) 94 mg/dL 70-110 (test luvs=547) CALCIUM (BEAKER) (test 9.2 mg/dL 8.5-10.5 ulxj=966) EGFR (BEAKER) (test 11 mL/min/1.73 sq m ESTIMATED GFR IS NOT xvam=8663) ACCURATE CREATININE CLEARANCE IN PREDICTING GLOMERULAR FILTRATION RATE. ESTIMATED GFR IS NOT APPLICABLE FOR DIALYSIS PATIENTS. [id number] 18:18:00 Test Item Value Reference Range Comments MAGNESIUM (BEAKER) (test zyfs=234) 2.3 mg/dL 1.5-3.0 CREATINE KINASE (CK)2018-03-23 18:18:00 Test Item Value Reference Range Comments CREATINE KINASE TOTAL (BEAKER) (test gjcq=797) 50 U/L 40-250 CBC W/PLT COUNT & AUTO [id number] 18:15:00 Test Item Value Reference Range Comments WHITE BLOOD CELL COUNT (BEAKER) (test klff=799) 9.3 K/ L 4.0-10.0 RED BLOOD CELL COUNT (BEAKER) (test grxl=439) 3.48 M/ L 4.20-5.80 HEMOGLOBIN (BEAKER) (test ypac=043) 10.9 GM/DL 13.0-16.8 HEMATOCRIT (BEAKER) (test mpmy=049) 33.0 % 40.0-50.0 MEAN CORPUSCULAR VOLUME (BEAKER) (test neql=730) 94.8 fL 82.0-98.0 MEAN CORPUSCULAR HEMOGLOBIN (BEAKER) (test 31.2 pg 27.0-33.0 nsyp=950) MEAN CORPUSCULAR HEMOGLOBIN CONC (BEAKER) (test 32.9 GM/DL 32.0-36.0 mzml=318) RED CELL DISTRIBUTION WIDTH (BEAKER) (test 13.7 % 10.3-14.2 worb=145) PLATELET COUNT (BEAKER) (test csoj=834) 277 K/CU MM 150-430 MEAN PLATELET VOLUME (BEAKER) (test ghty=902) 8.8 fL 6.5-10.5 NEUTROPHILS RELATIVE PERCENT (BEAKER) (test 72 % tcgi=333) LYMPHOCYTES RELATIVE PERCENT (BEAKER) (test 15 % mrgu=962) MONOCYTES RELATIVE PERCENT (BEAKER) (test 9 % jjpo=304) EOSINOPHILS RELATIVE PERCENT (BEAKER) (test 3 % lfaf=729) BASOPHILS RELATIVE PERCENT (BEAKER) (test 1 % efre=727) NEUTROPHILS ABSOLUTE COUNT (BEAKER) (test 6.68 K/ L 1.80-8.00 hmhk=261) LYMPHOCYTES ABSOLUTE COUNT (BEAKER) (test 1.41 K/ L 1.48-4.50 bjma=063) MONOCYTES ABSOLUTE COUNT (BEAKER) (test 0.83 K/ L 0.00-1.30 hrxm=085) EOSINOPHILS ABSOLUTE COUNT (BEAKER) (test 0.32 K/ L 0.00-0.50 aidc=964) BASOPHILS ABSOLUTE COUNT (BEAKER) (test 0.05 K/ L 0.00-0.20 sbxj=403)
[2018-08-17 09:23] LABS: Absolute Lymphocytes (CBC) 0.7 K/uL (0.7-4.9); Basophils % 1.2 % (0-1.3); Eosinophils % 2.4 % (0-4.4); Hematocrit 31.4 % (39.6-49.0); Lymphocytes % 8.8 % (15.3-44.8); MPV 9.3 fL (7.6-11.3); Monocytes % 7.7 % (3.3-12.3); RBC Red Blood Cell Count 3.21 M/uL (4.33-5.43)
[2018-08-17] MEDS ORDERED: NA CHLORIDE 0.9% 250 ML ONE ×2 (09:31→15:56)
[2018-08-17 09:59] LABS: Potassium 4.4 mmol/L (3.5-5.1)
[2018-08-17 10:14] LABS: Protime INR 3.56
--- NOTE | 2018-08-17 10:35 | RAD REPORT ---
EXAM DESCRIPTION: RAD - Chest Single View - 08/17/2018 10:10 am CLINICAL HISTORY: dialysis, tachypnea Chest pain. COMPARISON: Chest Single View dated 07/25/2018; Chest Single View dated 06/23/2018; Chest Single View dated 11/12/2017; Chest Single View dated 10/17/2017 FINDINGS: Portable technique limits examination quality. The lungs are grossly clear. The heart is moderately prominent. No displaced fractures. IMPRESSION: No acute intrathoracic process suspected.
--- NOTE | 2018-08-17 11:37 | RAD REPORT ---
EXAM DESCRIPTION: US - UPPER EXTREMITY VENOUS UNILATE - 08/17/2018 9:24 am CLINICAL HISTORY: /left arm swelling. COMPARISON: None. FINDINGS: Left internal jugular vein, left subclavian vein, left axillary vein, left brachial vein, left cephalic, left basilic,veins demonstrate phasic signal. The veins are compressible. Doppler demo nstrates good flow. . Fistula within the left RV is patent. It appears to be between the subclavian artery and brachial vei n IMPRESSION: No sonographic evidence of thrombus involving the left upper extremity veins. Patent AV fistula
--- NOTE | 2018-08-17 12:06 | ER ---
Nurse's Notes [facility] Name: Fredi Moore Age: 72 yrs Sex: Male : 1945 Arrival Date: 08/17/2018 Time: 08:22 Bed 6 Private MD: Diagnosis: Altered mental status, unspecified;Weakness;End stage renal disease;Dehydration;Ulceration and complication of dialysis fistula;Hypotension, unspecified Presentation: 08/17 08:30 Presenting complaint: Patient states: my dialysis nurse thinks my L upper arm port is ch infected. they did not do my dialysis today. my port was bleeding Friday, Friday it had a scab. I was in the hospital last week. Transition of care: patient was not received from another setting of care. Onset of symptoms was August 17, 2018 at 08:32. Risk Assessment: Do you want to hurt yourself or someone else? Patient reports no desire to harm self or others. Initial Sepsis Screen: Does the patient meet any 2 criteria? No. Patient's initial sepsis screen is negative. Does the patient have a suspected source of infection? No. Patient's initial sepsis screen is negative. Care prior to arrival: None. 08:30 Method Of Arrival: Wheelchair 08:30 Acuity: LUCERO 3 ch Historical: - Allergies: 08:35 Morphine; ch - Home Meds: 08:35 abacavir 300 mg Oral tab 1 tab 2 times per day [Active]; amlodipine 10 mg tab 1 tab ch once daily [Active]; atazanavir 300 mg Oral 1 cap once daily [Active]; atorvastatin 80 mg Oral tab 1 tab nightly [Active]; furosemide 40 mg Oral tab 1 tab 2 times per day [Active]; gabapentin 600 mg Oral tab 1 tab 3 times per day [Active]; hydroxyzine HCl 25 mg Oral tab 1 tab nightly [Active]; insulin asparte 10 units TID SQ [Active]; insulin glargine subcutaneous Sub-Q daily [Active]; lamivudine 100 mg Oral tab 0.5 tab once daily [Active]; Lyrica 75 mg Oral 2 times per day [Active]; metoprolol tartrate 100 mg Oral tab 1 tab once daily [Active]; ritonavir 100 mg Oral 1 cap once daily [Active]; sevelamer HCl Oral 2 tabs 3 times per day [Active]; Warfarin Oral [Active]; 13:20 atrial flutter [Active]; ch - PMHx: 08:35 colon cancer; Diabetes - NIDDM; Dialysis; ESRD; HIV; Hypertension; blood clots; ch - PSHx: 08:35 colon surgery; Dialysis fistula to left arm; ch - Immunization history:: Adult Immunizations up to date. - Social history:: Smoking status: Patient/guardian denies using tobacco. - Ebola Screening: : Patient negative for fever greater than or equal to 101.5 degrees Fahrenheit, and additional compatible Ebola Virus Disease symptoms Patient denies exposure to infectious person Patient denies travel to an Ebola-affected area in the 21 days before illness onset No symptoms or risks identified at this time. - Family history:: not pertinent. - Hospitalizations: : Patient was recently seen at. Screenin:57 Abuse screen: Denies threats or abuse. Nutritional screening: No deficits noted. tw2 Tuberculosis screening: No symptoms or risk factors identified. Fall Risk Secondary diagnosis (15 points) impaired mobility. Assessment: 08:40 General: Appears in no apparent distress. comfortable, Behavior is calm, cooperative, ch appropriate for age. Pain: Complains of pain in right foot and left foot Pain currently is 3 out of 10 on a pain scale. Pain began suddenly. Neuro: Level of Consciousness is awake, alert, obeys commands, Oriented to person, place, time, situation, pt is slow to answer qustions, irritable, belligerent, and verbally abusive to staff and his family. . Cardiovascular: Heart tones S1 S2 present Capillary refill is sluggish in bilateral fingers toes Clubbing of nail beds is present Patient's skin is warm and dry. Pulses are all present. Edema is 3+ to right upper arm, right elbow, right forearm, right wrist, right hand, waist, left lower thigh, left knee, left midcalf, left ankle, left foot, left upper arm, left elbow, left forearm, left wrist, left hand, right lower thigh, right knee, right midcalf, right ankle and right foot pt edema is pitting. Respiratory: Airway is patent Trachea midline Respiratory effort is even, unlabored, Respiratory pattern is regular, Breath sounds are diminished bilaterally. in left posterior lower lobe and right posterior lower lobe. GI: Abdomen is round non-distended, Bowel sounds present X 4 quads. Abd is soft and non tender X 4 quads. : No signs and/or symptoms were reported regarding the genitourinary system. Derm: Skin is fragile, with poor turgor Skin is jaundiced, pale. 09:44 Reassessment: Patient appears in no apparent distress at this time. No changes from previously documented assessment. Patient and/or family updated on plan of care and expected duration. Pain level reassessed. Patient is alert, oriented x 3, equal unlabored respirations, skin warm/dry/pink. pt has finished his crackers, juice, resting quietly in the room. 10:46 Reassessment: Patient appears in no apparent distress at this time. Patient and/or ch family updated on plan of care and expected duration. Pain level reassessed. pt asleep in room. family at bedside. Dr. Baeza reviews plan of care. pt and family verb understanding. 11:41 Reassessment: Patient appears in no apparent distress at this time. pt and family ch decide they want to be admitted. dr baeza states he will start. 12:40 Reassessment: Patient appears in no apparent distress at this time. Patient and/or ch family updated on plan of care and expected duration. Pain level reassessed. pt is sleeping in room, requires loud talking or physical touch to wake up. pt states he wont be a good patient, she thinks this is bull shit he is being admitted. pt states he will still be admitted but thinks we are over reacting. states this is not the pt normal baseline. 13:15 Reassessment: Patient appears in no apparent distress at this time. No changes from previously documented assessment. Patient and/or family updated on plan of care and expected duration. Pain level reassessed. 14:06 Reassessment: Patient appears in no apparent distress at this time. pt eats all of his food, awaiting room assignment. Dr. Ivan has seen pt already. 14:27 Reassessment: Patient appears in no apparent distress at this time. attempting to call report now. pt is asleep in room. Vital Signs: 08:35 BP 98 / 51; Pulse 53; Resp 20; Pulse Ox 100% ; Pain 0/10; ch 08:56 Temp 96.4(TE); tw2 09:38 BP 102 / 84; Pulse 62; Resp 24; Temp 97.7(O); Pulse Ox 96% on R/A; Pain 3/10; ch 10:46 BP 102 / 56; Pulse 48; Resp 14; Temp 98.3; Pulse Ox 99% on R/A; Pain 0/10; ch 11:41 BP 100 / 51; Pulse 52; Resp 16; Temp 97.6; Pulse Ox 99% on R/A; Pain 0/10; ch 13:15 BP 99 / 46; Pulse 51; Resp 13; Temp 97.9; Pulse Ox 99% on R/A; Pain 0/10; ch 14:00 BP 98 / 41; Pulse 53; Resp 14; Pulse Ox 95% on R/A; Pain 0/10; ch 14:33 Weight 119.75 kg; Height 6 ft. (182.88 cm); ch 14:35 BP 101 / 42; Pulse 51; Resp 16; Temp 97.2; Pulse Ox 97% on R/A; Pain 0/10; ch 14:33 Body Mass Index 35.80 (119.75 kg, 182.88 cm) ED Course: 08:22 Patient arrived in ED. mr 08:24 Tom Baeza MD is Attending Physician. rn 08:30 Lyn Hernandez, E[place] is Primary Nurse. ch 08:30 Bed in low position. Call light in reach. Side rails up X2. Adult w/ patient. tw2 08:32 Triage completed. ch 08:35 Arm band placed on left wrist. Patient placed in an exam room, on a stretcher, on pulse ch oximetry. 08:50 EKG done, by materials tech. reviewed by Tom Baeza MD. dt2 09:10 No apparent distress. ch 09:10 No provider procedures requiring assistance completed. Inserted saline lock: 22 gauge ch in right forearm, using aseptic technique. ,using aseptic technique. Dr. Baeza gives order to put IV in R arm, even with pt hx of blood clots in R arm. Patient maintains SpO2 saturation greater than 95% on room air. 09:25 UPPER EXTREMITY VENOUS UNILATE In Process Unspecified. EDMS 09:38 threat monitoring analyst on. Pulse ox on. NIBP on. Warm blanket given. Pillow given. ch 10:11 XRAY Chest (1 view) In Process Unspecified. EDMS 12:05 Ivonne Ivan MD is Hospitalizing Provider. rn 14:34 Patient admitted, IV remains in place. Administered Medications: 10:48 Drug: NS 0.9% 250 ml Route: IV; Rate: 1 bolus; Site: right forearm; 11:43 Follow up: IV Status: Completed infusion; IV Intake: 250ml Point of Care Testing: Blood Glucose: 08:50 Blood Glucose: 67 mg/dL; 08:50 physician notified, pt given juice and crakers. Ranges: Intake: 11:43 IV: 250ml; Total: 250ml. Outcome: 12:06 Decision to Hospitalize by Provider. rn 14:34 Admitted to ICU accompanied by nurse, accompanied by tech, via stretcher, room 7, with chart, Report called to [facility] 14:34 Condition: stable 14:34 Instructed on the need for transfer. 15:00 Patient left the ED. Signatures: Dispatcher [employer] EDPA Lyn Hernandez RN RN ch Rivera, Mary mr Nieto, Roman, MD MD rn Wise, Tara, RN RN Gayatri Ortiz
--- NOTE | 2018-08-17 12:07 | EDPHYS ---
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 08:52 Went to dialysis today, staff would not access his LUE fistula due to possible rn infection, states hasn't been normal since having to be hospitalized this past week at [facility], reports sluggish, but no acute changes. Reports sleepier this morning and asking for food, feels like glucose is low. Patient denies fever, chills/sob/rash. Recently admitted and diagnosed with "blood clots", taking warfarin. Paperwork also shows that had clot of LUE fistula, which was cleared out successfully with surgical procedure. . Onset: The symptoms/episode began/occurred at an unknown time. Severity of symptoms: At their worst the symptoms were mild in the emergency department the symptoms are unchanged. The patient has not experienced similar symptoms in the past. The patient has been recently seen by a physician:. Historical: - Allergies: 08:35 Morphine; ch - Home Meds: 08:35 abacavir 300 mg Oral tab 1 tab 2 times per day [Active]; amlodipine 10 mg tab 1 tab ch once daily [Active]; atazanavir 300 mg Oral 1 cap once daily [Active]; atorvastatin 80 mg Oral tab 1 tab nightly [Active]; furosemide 40 mg Oral tab 1 tab 2 times per day [Active]; gabapentin 600 mg Oral tab 1 tab 3 times per day [Active]; hydroxyzine HCl 25 mg Oral tab 1 tab nightly [Active]; insulin asparte 10 units TID SQ [Active]; insulin glargine subcutaneous Sub-Q daily [Active]; lamivudine 100 mg Oral tab 0.5 tab once daily [Active]; Lyrica 75 mg Oral 2 times per day [Active]; metoprolol tartrate 100 mg Oral tab 1 tab once daily [Active]; ritonavir 100 mg Oral 1 cap once daily [Active]; sevelamer HCl Oral 2 tabs 3 times per day [Active]; Warfarin Oral [Active]; 13:20 atrial flutter [Active]; ch - PMHx: 08:35 colon cancer; Diabetes - NIDDM; Dialysis; ESRD; HIV; Hypertension; blood clots; ch - PSHx: 08:35 colon surgery; Dialysis fistula to left arm; ch - Immunization history:: Adult Immunizations up to date. - Social history:: Smoking status: Patient/guardian denies using tobacco. - Ebola Screening: : Patient negative for fever greater than or equal to 101.5 degrees Fahrenheit, and additional compatible Ebola Virus Disease symptoms Patient denies exposure to infectious person Patient denies travel to an Ebola-affected area in the 21 days before illness onset No symptoms or risks identified at this time. - Family history:: not pertinent. - Hospitalizations: : Patient was recently seen at. ROS: 08:52 Constitutional: Negative for fever, chills, and weight loss, Eyes: Negative for injury, rn pain, redness, and discharge, Neck: Negative for injury, pain, and swelling, Cardiovascular: Negative for chest pain, palpitations, and edema, Respiratory: Negative for shortness of breath, cough, wheezing, and pleuritic chest pain, Abdomen/GI: Negative for abdominal pain, nausea, vomiting, diarrhea, and constipation, MS/Extremity: Negative for injury and deformity, Skin: + ulceration over dialysis fistula Neuro: + generalized weakness Exam: 08:52 Constitutional: Overweight male, no acute distress Head/Face: Normocephalic, rn atraumatic. Eyes: Pupils equal round and reactive to light, extra-ocular motions intact. Lids and lashes normal. Conjunctiva and sclera are non-icteric and not injected. Cornea within normal limits. Periorbital areas with no swelling, redness, or edema. ENT: dry MM Cardiovascular: Regular, no murmur Respiratory: Mild tachypnea, speaking full sentences Abdomen/GI: soft, non-tender MS/ Extremity: + 1+ edema of all 4 extremities, LUE with fistula and + thrill, intact distal and proximal pulses, 1cm non-bleeding, non-erythematous ulceration overlying anterior-mid portion of fistula, strong pulsation visualized under ulcer. No pustular lesions. Neuro: Awake and alert, GCS 15, oriented to person, place, time, and situation. Cranial nerves II-XII grossly intact. Motor strength 5/5 in all extremities. Sensory grossly intact. Vital Signs: 08:35 BP 98 / 51; Pulse 53; Resp 20; Pulse Ox 100% ; Pain 0/10; ch 08:56 Temp 96.4(TE); tw2 09:38 BP 102 / 84; Pulse 62; Resp 24; Temp 97.7(O); Pulse Ox 96% on R/A; Pain 3/10; ch 10:46 BP 102 / 56; Pulse 48; Resp 14; Temp 98.3; Pulse Ox 99% on R/A; Pain 0/10; ch 11:41 BP 100 / 51; Pulse 52; Resp 16; Temp 97.6; Pulse Ox 99% on R/A; Pain 0/10; ch 13:15 BP 99 / 46; Pulse 51; Resp 13; Temp 97.9; Pulse Ox 99% on R/A; Pain 0/10; ch 14:00 BP 98 / 41; Pulse 53; Resp 14; Pulse Ox 95% on R/A; Pain 0/10; ch 14:33 Weight 119.75 kg; Height 6 ft. (182.88 cm); ch 14:35 BP 101 / 42; Pulse 51; Resp 16; Temp 97.2; Pulse Ox 97% on R/A; Pain 0/10; ch 14:33 Body Mass Index 35.80 (119.75 kg, 182.88 cm) ch MDM: 08:25 Patient medically screened. rn 10:01 ED course: Ultrasound shows patent fistula, and neg for DVT of LUE.. rn 10:09 ED course: Pt states the site on left fistula was bleeding after he peeled a scab off, rn initially had scraped it on furniture in bathroom. Bleeding controlled at home.. 10:28 ED course: Paged Dr. Orourke, waiting vehicle sales professional back.. rn 10:35 ED course: Consulted with Dr. Orourke, is going to check which dialysis nurse is on, rn agrees, states he doesn't seem at baseline, recommends admission for AMS, needs dialysis, and further w/u for somnolence/confusion. Patent fistula and no bleeding, does not need emergent vascular consult at this point.. 12:03 Differential Diagnosis altered mental status, sepsis. Data reviewed: vital signs, rn nurses notes, lab test result(s), EKG, radiologic studies, plain films, and as a result, I will admit patient. Counseling: I had a detailed discussion with the patient and/or guardian regarding: the historical points, exam findings, and any diagnostic results supporting the discharge/admit diagnosis, lab results, radiology results, the need for further work-up and treatment in the hospital. Response to treatment: There is no appreciated change of the patient's symptoms at this time, and as a result, I will admit patient. Admission orders: after a detailed discussion of the patient's condition and case, the admit orders are written by me. ED course: Pt still very somnolent, not at baseline per , normal neuro exam, improved only slightly after glucose corrected from 67, will admit for observation given AMS, not at baseline, needs dialysis and dialysis center center him here instead and did not want to access his fistula. BP borderline and upon presentation was low, a couple of reading have been below MAP of 65. . 08/17 08:51 Order name: CBC with Diff; Complete Time: 09:28 08/17 08:51 Order name: Basic Metabolic Panel; Complete Time: 10:13 08/17 08:51 Order name: N-Terminal Pro-brain Natriuretic Peptide; Complete Time: 10:13 08/17 08:51 Order name: Blood Culture Adult (2) 08/17 08:51 Order name: Procalcitonin; Complete Time: 10:13 08/17 08:51 Order name: AMMONIA; Complete Time: 10:03 08/17 08:51 Order name: Lactate; Complete Time: 10:03 08/17 08:55 Order name: Glucose, Ancillary Testing; Complete Time: 09:28 [facility] 08/17 08:58 Order name: Glucose, Ancillary Testing [facility] 08/17 10:01 Order name: PT-INR; Complete Time: 10:24 08/17 11:04 Order name: Glucose, Ancillary Testing; Complete Time: 12:03 [facility] 08/17 12:06 Order name: Urine Culture 08/17 13:07 Order name: Glucose, Ancillary Testing; Complete Time: 13:41 [facility] 08/17 08:51 Order name: IV Start; Complete Time: 09:44 08/17 08:52 Order name: Glucose Level; Complete Time: 08:53 08/17 08:58 Order name: UPPER EXTREMITY VENOUS UNILATE; Complete Time: 12:03 EDSC 08/17 08:59 Order name: XRAY Chest (1 view); Complete Time: 12:03 rn 08/17 10:19 Order name: EKG Electrocardiogram; Complete Time: 10:22 EDMS 08/17 11:43 Order name: Diet Ada 2000 Yoan; Complete Time: 11:45 ch 08/17 12:24 Order name: Head Brain Wo Cont; Complete Time: 13:41 EDMS Administered Medications: 10:48 Drug: NS 0.9% 250 ml Route: IV; Rate: 1 bolus; Site: right forearm; 11:43 Follow up: IV Status: Completed infusion; IV Intake: 250ml Point of Care Testing: Blood Glucose: 08:50 Blood Glucose: 67 mg/dL; ch 08:50 physician notified, pt given juice and crakers. ch Ranges: Critical Glucose Levels:Adult <50 mg/dl or >400 mg/dl <40 mg/dl or >180 mg/dl Disposition: 08/17/18 12:06 Hospitalization ordered by Ivonne Ivan for Inpatient Admission. Preliminary diagnosis are Altered mental status, unspecified, Weakness, End stage renal disease, Dehydration, Ulceration and complication of dialysis fistula, Hypotension, unspecified. - Bed requested for Intensive Care Unit. - Status is Inpatient Admission. ch - Condition is Stable. - Problem is new. - Symptoms are unchanged. UTI on Admission? No Signatures: Dispatcher [employer] [facility] Shilpi Garcia Christina, RN RN Tom Baeza MD MD rn care transition: (The following items were deleted from the chart) 08:58 08:55 Extremity Venous Uni Ltd+[email or web address].RAD.BRZ ordered. [facility] 14:07 12:06 Hospitalization Ordered by Ivonne Ivan MD for Observation. Preliminary diagnosis rn is Altered mental status, unspecified; Weakness; End stage renal disease; Dehydration; Ulceration and complication of dialysis fistula. Bed requested for Telemetry/MedSurg (observation). Status is Observation. Condition is Stable. Problem is new. Symptoms are unchanged. UTI on Admission? No. 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 Preliminary diagnosis is Altered mental status, unspecified; Weakness; End stage renal disease; Dehydration; Ulceration and complication of dialysis fistula. Bed requested for Telemetry/MedSurg (observation). Status is Inpatient Admission. Condition is Stable. Problem is new. Symptoms are unchanged. UTI on Admission? No. rn 14:15 14:08 08/17/2018 12:06 Hospitalization Ordered by Ivonne Ivan MD for Inpatient bd Admission. Preliminary diagnosis is Altered mental status, unspecified; Weakness; End stage renal disease; Dehydration; Ulceration and complication of dialysis fistula; Hypotension, unspecified. Bed requested for Telemetry/MedSurg (observation). Status is Inpatient Admission. Condition is Stable. Problem is new. Symptoms are unchanged. UTI on Admission? No. rn 15:00 14:15 08/17/2018 12:06 Hospitalization Ordered by Ivonne Ivan MD for Inpatient ch Admission. Preliminary diagnosis is Altered mental status, unspecified; Weakness; End stage renal disease; Dehydration; Ulceration and complication of dialysis fistula; Hypotension, unspecified. Bed requested for Intensive Care Unit. Status is Inpatient Admission. Condition is Stable. Problem is new. Symptoms are unchanged. UTI on Admission? No. bd
--- NOTE | 2018-08-17 12:38 | EKG ---
Test Date: 2018-08-17 Test Time: 08:44:30 Student Activities Director: KORTNEY MEASUREMENT RESULTS: Intervals: Rate: 53 MD: QRSD: 98 QT: 482 QTc: 452 [place]: P: 269 MD: QRS: -44 T: 204 INTERPRETIVE STATEMENTS: Atrial flutter with 4:1 AV conduction Left axis deviation Pulmonary disease pattern ST & T wave abnormality, consider inferior ischemia ST & T wave abnormality, consider anterolateral ischemia Abnormal ECG Compared to ECG 07/25/2018 21:47:08 ST (T wave) deviation now present Possible ischemia now present Incomplete right bundle-branch block no longer present T-wave abnormality no longer present Electronically Signed On 08-17-18 12:36:57 CDT by Shahram Nelson
--- NOTE | 2018-08-17 13:37 | RAD REPORT ---
EXAM DESCRIPTION: CT - Head Brain Wo Cont - 08/17/2018 1:08 pm CLINICAL HISTORY: Alteration of awareness/confusion COMPARISON: None TECHNIQUE: Computed axial tomography of the head was obtained. IV contrast was not requested. All CT scans are performed using dose optimization technique as appropriate and may include automated exposure control or mA/KV adjustment according to patient size. FINDINGS: An intracranial bleed is not seen . The ventricles are normal in caliber. No extra-axial fluid collection is noted. Cerebral atrophy is present. Fluid within the sinuses/ mastoids is not seen. IMPRESSION: No acute intracranial abnormality is seen. If patient's symptoms persist MRI of the bra in would be recommended.
[2018-08-17] MEDS ORDERED: ONDANSETRON 4 MG/2 ML VIAL IV PRN (15:57)
[2018-08-17] MEDS ORDERED: ACETAMINOPHEN 500 MG TAB PO PRN (15:57)
[2018-08-17] MEDS ORDERED: NOREPINEPHRINE 4 MG in D5W 250 ML IV PRN (15:57)
[2018-08-17] MEDS: INSULIN -REGULAR HUMAN 50 UNIT/0.5 ML ML SQ SCH ×2 (16:30→20:45)
[2018-08-17] MEDS ORDERED: SEVELAMER CARBONATE 800 MG TABLET PO SCH (17:00)
[2018-08-17] MEDS: BENZONATATE 100 MG CAP PO PRN (17:15)
--- NOTE | 2018-08-17 17:25 | RAD REPORT ---
EXAM DESCRIPTION: US - UPPER EXTREMITY VENOUS UNILATE - 08/17/2018 5:11 pm CLINICAL HISTORY: dvt Arm pain and swelling FINDINGS: Right upper extremity venous system was interrogated with Doppler technique. Thrombus is n oted in the right axillary and basilic veins. Elsewhere, no thrombus is seen. IMPRESSION: Moderate thrombus is present in the right axillary and basilic veins.
--- NOTE | 2018-08-17 17:50 | P.PN ---
Date of Service: 08/17/18 Nurse called due to low BP reading. Should be noted that we are unable to use either arm due to AV fistula on the left and subacute DVT on right. Patient has significant 3+ edema b/l lower ext and therefore I do not believe that this is an accurate BP reading. Patient is now awake, alert, oriented x3, sitting up conversing and eating his dinner. He states that he does not feel hypotensive as he has in the past after dialysis. He would not be able to do this with a SBP of 70 as currently showing. Spoke to Dr. Orourke and Dr. Duffy surgeon economist research assistant. INR is too high for arterial line. Patient also given option of transfer to [facility] for continuity of care - he refuses. Patient wants to be dialyzed in am and wants to keep his appt in [place] for 3pm for f/up from his recent DC. Patient understands he is in a critical condition. Overall guarded prognosis.
[2018-08-17] MEDS: LACTULOSE 20 GM/30 ML UCUP PO SCH (20:44)
[2018-08-17] MEDS: ABACAVIR SULFATE 300 MG PO SCH (20:45)
[2018-08-17] MEDS: RITONAVIR 100 MG PO SCH (20:45)
[2018-08-17] MEDS ORDERED: ROPINIROLE HCL 0.25 MG TAB PO SCH (21:00)
[2018-08-17] MEDS ORDERED: ATORVASTATIN 80 MG TAB PO SCH (21:00)
[2018-08-17] MEDS ORDERED: MELATONIN 5 MG TABLET PO SCH (21:00)
[2018-08-17] MEDS ORDERED: EPOETIN ALFA 10,000 UNIT/ML SQ ONE (21:47)
[2018-08-17] MEDS ORDERED: MANNITOL 25% 12.5 GM/50 ML VIAL IV PRN (21:48)
[2018-08-17] MEDS ORDERED: NA CHLORIDE 0.9% 1,000 ML IV PRN (21:48)
[2018-08-17] MEDS ORDERED: ALBUMIN HUMAN 25% 50 ML IV SCH (22:00)
[2018-08-17] MEDS ORDERED: EPOETIN ALFA 10,000 UNIT/ML VIAL IV SCH (22:00)
--- NOTE | 2018-08-17 22:00 | P.CNS ---
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 08:52 Went to dialysis today, staff would not access his LUE fistula due to possible rn infection, states hasn't been normal since having to be hospitalized this past week at [facility], reports sluggish, but no acute changes. Reports sleepier this morning and asking for food, feels like glucose is low. Patient denies fever, chills/sob/rash. Recently admitted and diagnosed with "blood clots", taking warfarin. Paperwork also shows that had clot of LUE fistula, which was cleared out successfully with surgical procedure. . Onset: The symptoms/episode began/occurred at an unknown time. Severity of symptoms: At their worst the symptoms were mild in the emergency department the symptoms are unchanged. The patient has not experienced similar symptoms in the past. The patient has been recently seen by a physician:. Allergies No Known Allergies Allergy (Verified 10/16/17 10:06) Home medications list reviewed: Yes Home Medications: Abacavir Sulfate [Ziagen] 300 mg PO BID 08/17/18 Amiodarone HCl [Cordarone*] 200 mg PO DAILY 08/17/18 Aspirin 81 mg PO DAILY 08/17/18 Atazanavir Sulfate [Reyataz] 300 mg PO BREAKFAST 08/17/18 Atorvastatin Calcium [Lipitor] 80 mg PO BEDTIME 08/17/18 Benzonatate 200 mg PO TIDP PRN 08/17/18 Cetirizine HCl [Zyrtec] 10 mg PO DAILY 08/17/18 Famotidine 20 mg PO DAILY 08/17/18 Fluticasone Propionate [24 Hour Allergy] 1 spr IH DAILY 08/17/18 Gabapentin 100 mg PO BEDTIME 08/17/18 Insulin Glargine,Hum.rec.anlog [Lantus] 12 units SQ DAILY 08/17/18 Lactulose 30 gm PO BID 08/17/18 Lamivudine [Lamivudine Hbv] 50 mg PO DAILY 08/17/18 Melatonin 5 mg PO BEDTIME 08/17/18 Metoprolol Succinate [Toprol Xl] 25 mg PO DAILY 08/17/18 Pregabalin [Lyrica*] 75 mg PO DAILYPRN PRN 08/17/18 Ritonavir [Norvir] 100 mg PO BID 08/17/18 Ropinirole HCl 0.5 mg PO BEDTIME 08/17/18 Sevelamer Carbonate 2,400 mg PO TIDWM 08/17/18 Warfarin Sodium 5 mg PO DAILY 08/17/18 - Past Medical/Surgical History Diabetic: Yes -: diabetes NIDDM -: HTN -: ESRD -: Hemodialysis -: HIV infection -: COLON CANCER -: AFlutter -: partial removal of colon -: appendectomy -: fistula to left arm - Family History Father Medical History: Cancer - Social History Smoking Status: Unknown if ever smoked Alcohol use: No CD- Drugs: No Caffeine use: No Place of Residence: Home Review of Systems 10-point ROS is otherwise unremarkable General: Weakness, Malaise Respiratory: SOB with Excertion Cardiovascular: Edema Neurological: Weakness Physical Examination Temp Pulse Resp BP Pulse Ox 97.5 F 53 19 115/66 98 08/17/18 14:58 08/17/18 18:00 08/17/18 18:00 08/17/18 16:00 08/17/18 16:00 General: Oriented x3, Cooperative HEENT: Atraumatic, Mucous membr. moist/pink Neck: Supple, JVD not distended Respiratory: Diminished Cardiovascular: Regular rate/rhythm, Edema Gastrointestinal: Soft and benign, Non-distended, No guarding Musculoskeletal: No clubbing, No contractures Integumentary: No rashes, No cyanosis Neurological: Normal speech Laboratory Data (last 24 hrs) 08/17/18 09:11: PT 40.0 H, INR 3.56 08/17/18 09:11: Sodium 135 L, Potassium 4.4, BUN 64 H, Creatinine 7.62 H*, Glucose 75 08/17/18 09:11: WBC 8.1, Hgb 10.2 L, Hct 31.4 L, Plt Count 239 Imagings Data: EXAM DESCRIPTION: RAD - Chest Single View - 08/17/2018 10:10 am CLINICAL HISTORY: dialysis, tachypnea Chest pain. COMPARISON: Chest Single View dated 07/25/2018; Chest Single View dated 2018; Chest Single View dated 11/12/2017; Chest Single View dated 10/17/2017 FINDINGS: Portable technique limits examination quality. The lungs are grossly clear. The heart is moderately prominent. No displaced fractures. IMPRESSION: No acute intrathoracic process suspected. Conclusions/Impression: A/ ESRD on HD. Diastolic CHF, A/C. HTN with CKD/ CHF complicated by hypotension concerning for sepsis. Anemia in CKD. ABE/ Secondary HyperPTH. Toxic metabolic encephalopathy. P/ Continue current POC and Medications. Arrange for acute HD in the am. Will start pressor therapy as needed. Start abx. Follow up blood cultures. Low sodium diet. No NSAIDs. AM labs. Daily weight. Thank you kindly for the consultation. Case discussed with Dr. Ivan and Dr. Baeza. Critical Care: Yes (Greater than 30 min)
[2018-08-18] MEDS: BENZONATATE 100 MG CAP PO PRN (00:12)
--- NOTE | 2018-08-18 00:27 | HP ---
Date of Admission: 08/17/2018 Code Status: Full. Chief Complaint: Altered mental status. History Of Present Illness: The patient is a 72-year-old male with past medical history of hypertens ion, diabetes, end-stage renal disease on dialysis Friday, Friday, Friday with last dialysis on Fr moi, HIV, valvular disease, diastolic heart failure, who recently was in the hospital in [facility] for 18 days due to AV fistula not functioning. The patient required angioplasty and stent plac violeta, also had clot development in the right upper extremity, currently on Coumadin. The patient wa s in his usual state of health until day of admission. When the patient showed up for dialysis, he w as found to be altered, was confused, and there was some difficulty getting his access. The patient also states that he ended up scratching his AV fistula site in the bathroom and scab was taken off an d he bled when he was coughing. The patient was therefore sent to the ER for further evaluation. Hi s symptoms are constant, moderate, progressively worsening. According to the , the patient is no t at his baseline. His blood pressure is also on the low side. In the ER, his blood pressure was sy stolic 50s. He was given 250 mL bolus for resuscitation. He also had a blood glucose level of 75. He was given some dextrose, however, did not have much response. BNP was 120,000. Procalcitonin was equivocal. White blood cell count was also normal. Chest x-ray was clear. Venous Doppler was done and the AV fistula is functional. The patient's INR was above limits at 3.56. The patient was refe rred for admission for confusion. When seen in the ER, he was asleep, but arousable, lethargic, mild ly confused, somewhat agitated. Past Medical History: Hypertension, diabetes, end-stage renal disease on hemodialysis Friday, , Friday; HIV; valvular disease; diastolic heart failure, colon cancer. Past Surgical History: The patient has had AV fistula placement, partial removal of the colon, appen dectomy, and stent to the fistula. Social History: The patient denies any tobacco use, alcohol use, or illicit drug use. The patient i s , independent in activities of daily living. Family History: Father had cancer. Allergies: NO KNOWN DRUG ALLERGIES. Medications: List reviewed. Review of Systems: Ten-point system reviewed, negative except as per HPI. Physical Examination: Vital Signs: Blood pressure 98/51, pulse 53, respirations 20, O2 100%, temperature 96.4. General: Asleep, but arousable. Elderly male, ill-appearing, obese. HEENT: Normocephalic, atraumatic. PERRLA. EOMI. Moist mucous membranes. Oropharynx is clear. Po or dentition. Conjunctivae anicteric. Neck: Supple. No JVD. Trachea midline. CV: S1, S2. Peripheral pulses present. Respiratory: Diminished breath sounds. No wheezing or stridor. No use of accessory muscles. Gastrointestinal: Abdomen is soft, nontender, nondistended. Positive bowel sounds. Extremities: No clubbing or cyanosis. The patient has 3+ edema, bilateral lower extremities. No ca lf tenderness. Skin: Left arm AV fistula with palpable thrill. Does have pressure bandage. The patient also has s ome ecchymosis around the anterior chest wall and the neck. Neurologic: Cranial nerves II through XII intact grossly. No focal neurological deficit. The patie nt was oriented, however, somewhat confused, slow to respond and appears lethargic. Laboratory Data: INR 3.56. WBC 8.1, H and H 10.2 and 31.4, platelets 239, neutrophils 79%. Sodium 135, potassium 4.4, chloride 96, CO2 33, BUN 64, creatinine 7.62, glucose 75, lactate 1.4, calcium 9. 1, ammonia 31. BNP 120,828. Procalcitonin 0.73. Blood cultures have been obtained. Imaging Studies: Chest x-ray personally reviewed, shows no acute intrathoracic process identified. Venous Doppler left upper extremity shows no sonographic evidence of thrombus involving the left uppe r extremity veins, patent AV fistula. Assessment: A 72-year-old male with: 1.Acute metabolic encephalopathy, unclear etiology. Chest x-ray does not show any acute infection. UA is pending. No clear source of infection. May be due to elevated BUN and due to his chronic kid rudy disease with no dialysis since Friday. We will obtain head CT scan to rule out any hemorrhage. The patient does have an elevated INR, is on Coumadin. Also has history of human immunodeficiency vi stacy. 2.Acute hypotension. The patient's systolic blood pressure in the 90s. MAP is around 60. We will start on Levophed to keep MAP above 65. The patient did not respond to IV fluid bolus, unable to res uscitate heavily with fluids due to chronic kidney disease with significant edema and risk of pulmona ry edema at this time. We will continue with supplemental oxygen. 3.Recent history of deep vein thrombosis in the left upper extremity, currently on Coumadin with sup ratherapeutic INR. We will hold Coumadin dose tonight. 4.End-stage renal disease, on hemodialysis. Last dialysis was on Friday. I spoke with Dr. Orourke. He will be scheduled for dialysis in a.m. We will continue to monitor electrolytes. 5.Diabetes mellitus type 2 with end-stage renal disease, on hemodialysis without long-term use of in sulin. We will continue with sliding scale insulin and monitor Accu-Cheks. 6.Valvular heart disease. 7.Diastolic heart failure, acute on chronic. 8.History of human immunodeficiency virus, on retroviral therapy. 9.Obesity. 10.Deep venous thrombosis prophylaxis. The patient already has supratherapeutic INR on Coumadin. Plan: Admit the patient to ICU, place as inpatient. Length of stay greater than 2 midnights. BROOKE Voice ID: [id number]
[2018-08-18] MEDS ORDERED: guaiFENesin 100 MG/5 ML UCUP PO PRN (03:48)
[2018-08-18 05:24] LABS: Absolute Lymphocytes (CBC) 0.9 K/uL (0.7-4.9); Basophils % 1.4 % (0-1.3); Eosinophils % 3.9 % (0-4.4); Hematocrit 29.8 % (39.6-49.0); Lymphocytes % 11.1 % (15.3-44.8); MPV 9.6 fL (7.6-11.3); Monocytes % 11.1 % (3.3-12.3); RBC Red Blood Cell Count 3.11 M/uL (4.33-5.43)
[2018-08-18 05:41] LABS: Albumin 2.5 g/dL (3.4-5.0); Bilirubin Total 0.8 mg/dL (0.2-1.0); Potassium 4.8 mmol/L (3.5-5.1)
[2018-08-18] MEDS: INSULIN -REGULAR HUMAN 50 UNIT/0.5 ML ML SQ SCH ×2 (07:30→10:24)
[2018-08-18 07:56] LABS: Protime INR 2.58
[2018-08-18] MEDS ORDERED: ATAZANAVIR SULFATE 300 MG PO SCH (08:00)
[2018-08-18] MEDS ORDERED: LAMIVUDINE 50 MG PO SCH (09:00)
[2018-08-18] MEDS ORDERED: CALCITROL 0.25 MCG CAP PO SCH (09:00)
[2018-08-18] MEDS ORDERED: AMIODARONE HCL 200 MG TAB PO SCH (09:00)
[2018-08-18] MEDS ORDERED: INSULIN GLARGINE 100 UNITS/ML SQ SCH (09:00)
[2018-08-18] MEDS ORDERED: FAMOTIDINE 20 MG TAB PO SCH (09:00)
[2018-08-18] MEDS: RITONAVIR 100 MG PO SCH (09:00)
[2018-08-18] MEDS: LACTULOSE 20 GM/30 ML UCUP PO SCH (09:00)
[2018-08-18] MEDS ORDERED: ASPIRIN 81 MG CHEWABLE TABLET PO SCH (09:00)
[2018-08-18] MEDS ORDERED: [UNRECOGNIZED DRUG - REMARK] IH SCH (09:00)
[2018-08-18] MEDS: ABACAVIR SULFATE 300 MG PO SCH (09:00)
[2018-08-18] MEDS ORDERED: CETIRIZINE HCL 5 MG TABLET PO SCH (09:00)
[2018-08-18] MEDS ORDERED: VITAMIN D 5,000 UNIT CAP PO SCH (09:00)
[2018-08-18] MEDS ORDERED: VITAMIN K (ADULT) 10 MG/ML IVP ONE (09:35)
[2018-08-18] MEDS ORDERED: PHYTONADIONE IVPB ONE (10:00)
[2018-08-18] MEDS ORDERED: NA CHLORIDE 0.9% IVPB ONE (10:00)
[2018-08-18] MEDS ORDERED: VITAMIN K (ADULT) 10 MG/ML ONE (10:06)
[2018-08-18] MEDS ORDERED: NA CHLORIDE 0.9% 250 ML ONE (10:42)
--- NOTE | 2018-08-18 10:55 | P.DS ---
Admission Date: 08/17/18 Discharge Date: 08/18/18 Disposition: TRANSFER TO [facility] Comment: Life flight Discharge Condition: SERIOUS Reason for Admission: AMS Consultations: Nephrology, Dr. Orourke Surgery, Dr. Duffy Brief History of Present Illness: The patient is a 72-year-old male with past medical history of hypertension, diabetes, end-stage renal disease on dialysis Friday, Friday, Friday with last dialysis on Friday, HIV, valvular disease, diastolic heart failure, who recently was in the hospital in [facility] for 18 days due to AV fistula not functioning. The patient required angioplasty and stent placement, also had clot development in the right upper extremity, currently on Coumadin. The patient was in his usual state of health until day of admission. When the patient showed up for dialysis, he was found to be altered, was confused, and there was some difficulty getting his access. The patient also states that he ended up scratching his AV fistula site in the bathroom and scab was taken off and he bled when he was coughing. The patient was therefore sent to the ER for further evaluation. His symptoms are constant, moderate, progressively worsening. According to the , the patient is not at his baseline. His blood pressure is also on the low side. In the ER, his blood pressure was systolic 50s. He was given 250 mL bolus for resuscitation. He also had a blood glucose level of 75. He was given some dextrose, however, did not have much response. BNP was 120,000. Procalcitonin was equivocal. White blood cell count was also normal. Chest x-ray was clear. Venous Doppler was done and the AV fistula is functional. The patient's INR was above limits at 3.56. The patient was referred for admission for confusion. When seen in the ER, he was asleep, but arousable, lethargic, mildly confused, somewhat agitated. Hospital Course: Patient was admitted for acute metabolic encephalopathy. Patient was recently discharged from [facility]. He spend 07/26-08/13 there. He was admitted at that time for a clogged AV fistula and he underwent a AV fistula declotting w/ baloon angioplasty and mechanical thrombectomy. This was complicated by a RUE DVT and he was started on warfarin. He was then discharged home. He recieved a few sessions of dialysis. The day of admission, he was at the dialysis center and they were not able to do dialysis as they though his AV site was infected. He was also hypotensive and altered and therefore was admitted at our facility. CT scan was negative for acute bleeding in the brain. He did have supratherapeutic INR on admission. It was thought that his BP was not an accurate reading as he was with generalized swelling and BP were being read from the legs. It was difficult to check BP in RUE d/t DVT and LUE d/t fistula. He was AAOx3 and in no acute distress. He was given IVF bolus but this did not really help. We were unable to put in art line as his INR was supratherapeutic. His coumadin was held and no vitamin K was given at that time as his INR was less than 5 and he was not actively bleeding. Patient was feeling better mentation castano and he wanted to go home and follow up in [place] today afternoon for his follow up appointment. Initially the plan was for him to be dialyzed here and then discharged home for outpatient followup. Unfortunately, during dialysis, he started having significant bleeding from fistula site after the site was examined. I examined the patient at bedside and he was bleeding significantly if pressure was loosened even slightly. Pressure was held for about 20 minutes without bleeding cessation. General surgery, Dr. Duffy, was called and he emergently evaluated the patient at bedside. A tournicate was placed along with quickclot at the site of bleeding. The tournicate was there but not inflated, peripheral pulse was felt and bleeding was controlled for the moment. He probably lost around 1 unit of blood. His INR did improve but he was given 15 IV vitamin K due to the active bleeding. He was started on 1 unit PRBC after being type and screened. The risk is that if there is any movement of the arm, he can restart bleeding anytime. Transfer was initiated to [facility] as we do not have Vascular surgery available here. Due to the emergency of the situation, patient was life flighted out to Medical center. Vital Signs/Physical Exam: Temp Pulse Resp BP Pulse Ox 100.3 F 66 20 94/58 L 98 08/18/18 00:00 08/18/18 05:07 08/18/18 04:00 08/18/18 04:00 08/17/18 16:00 General: Alert, In no apparent distress, Oriented x3 Respiratory: Clear to auscultation bilaterally, Normal air movement Cardiovascular: Regular rate/rhythm, Normal S1 S2 Integumentary: Other (Significant bleeding as noted in summary; ) Laboratory Data at Discharge: WBC 7.7 K/uL (4.3-10.9) 08/18/18 05:10 Hgb 10.2 g/dL (13.6-17.9) L 08/18/18 05:10 Hct 29.8 % (39.6-49.0) L 08/18/18 05:10 Plt Count 216 K/uL (152-406) 08/18/18 05:10 PT 29.3 SECONDS (9.5-12.5) H 08/18/18 07:20 INR 2.58 08/18/18 07:20 Sodium 134 mmol/L (136-145) L 08/18/18 05:10 Potassium 4.8 mmol/L (3.5-5.1) 08/18/18 05:10 BUN 74 mg/dL (7-18) H 08/18/18 05:10 Creatinine 9.00 mg/dL (0.55-1.3) H* D 08/18/18 05:10 Glucose 115 mg/dL (74-106) H 08/18/18 05:10 Total Bilirubin 0.8 mg/dL (0.2-1.0) 08/18/18 05:10 AST 35 U/L (15-37) 08/18/18 05:10 ALT 54 U/L (12-78) 08/18/18 05:10 Alkaline Phosphatase 166 U/L (45-117) H 08/18/18 05:10 Home Medications: RX: Abacavir Sulfate [Ziagen] 300 mg PO BID 08/17/18 RX: Amiodarone HCl [Cordarone*] 200 mg PO DAILY 08/17/18 RX: Aspirin 81 mg PO DAILY 08/17/18 RX: Atazanavir Sulfate [Reyataz] 300 mg PO BREAKFAST 08/17/18 RX: Atorvastatin Calcium [Lipitor] 80 mg PO BEDTIME 08/17/18 RX: Benzonatate 200 mg PO TIDP PRN 08/17/18 RX: Cetirizine HCl [Zyrtec] 10 mg PO DAILY 08/17/18 RX: Famotidine 20 mg PO DAILY 08/17/18 RX: Fluticasone Propionate [24 Hour Allergy] 1 spr IH DAILY 08/17/18 RX: Gabapentin 100 mg PO BEDTIME 08/17/18 RX: Insulin Glargine,Hum.rec.anlog [Lantus] 12 units SQ DAILY 08/17/18 RX: Lactulose 30 gm PO BID 08/17/18 RX: Lamivudine [Lamivudine Hbv] 50 mg PO DAILY 08/17/18 RX: Melatonin 5 mg PO BEDTIME 08/17/18 RX: Metoprolol Succinate [Toprol Xl] 25 mg PO DAILY 08/17/18 RX: Pregabalin [Lyrica*] 75 mg PO DAILYPRN PRN 08/17/18 RX: Ritonavir [Norvir] 100 mg PO BID 08/17/18 RX: Ropinirole HCl 0.5 mg PO BEDTIME 08/17/18 Sevelamer Carbonate 2,400 mg PO TIDWM 08/17/18 Warfarin Sodium 5 mg PO DAILY 08/17/18 Time spent managing pt's care (in minutes): 120
--- NOTE | 2018-08-18 17:40 | CON ---
Date of Consultation: 08/18/2018 Reason For Service: Bleeding through an AV graft. History Of Present Illness: This is the case of a 72-year-old patient, who just finished hemodialysi s. When this finished, the patient was doing well. They had some bleeding from the puncture site bu t they noticed that lower part of the graft had some skin changes, and when they looked at it, they s tarted to see some bleeding coming from that area and then it ruptured to the point to have them puls ating blood coming through the area. Finger pressure was applied by the nurse, and they were trying to control the area. They noticed that it was not bleeding. They did call for a stat consult for shavonne quintanilla. I happened to be in the first floor of institution, so I came immediately coming to this area . Not know much of the information of the patient, why he was here. I was consulted for stat consul t but with an INR of 3 due to a Coumadin use for a clot the patient has on the right arm. I also learnt that the graft was revised early as last with a stent placed in that area. A pparently, the did not want use the graft at the institution, so they sent the patient to the institution here. That is all I know about this patient right now. I will discuss the case with Dr. Jones and later to get some more information but at this moment, the patient was bleeding, so I have to do something right away. We put a blood pressure cuff just above the area of the graft. When we inflated that area, we were able to notice almost 0.5 cm opening patient has on t he arm. When we let go we will see pulsatile bleeding. I was trying to inspect the area from that o pen wound to see if I can just have something that we can just obtain proximal and distal control but there was nothing that I can do at this moment. So, I made a decision the patient may have to be ta marylu to the OR for control. I asked the vascular surgeon to be on the phone and we you once again in that case we placed as a last alternative before surgery a QuikClot hemostatic dressing over the area of the cavity. After we applied that one and basically we put a gauze on top and then we placed Cob an. When we deflated the cough once again, we did not see any bleeding coming from the incision. Th e patient has distal pulses with good capillary refill. The blood pressure cuff was just placed on a nd off for 30 seconds until we have control but never more than a minute. So once we have controlled that area, the transfer center called me once again and I discussed with them this current situation . I also talked to the vascular surgeons in that area, who like the patient to be there to revise th at graft. So far the blood pressure has been holding and patient is awake, alert, and oriented. The chest is clear. Abdomen is soft and depressible. The extremities have good capillary refill. Full range of motion of the hand and the elbow area. Good capillary refill and good radial pulses are pr esent. Once again, we revised this 15 minutes later and still with no bleeding over the area with no cuff or never any tourniquet applied. At that moment, we believed at this moment we may have a wind ow of opportunity. The Life [facility] was called and they came here for transfer. Then, after transfer time, the patient is awake and alert. Once again, the arm looks viable. No tourniquet or any cuff inflated. Just his dressings. Review of Systems: In this case unable to be obtained. Blood work showed hemoglobin of 10.2 but once again, during this emergent situation with the bleeding before may be low right now, so, we asked the patient to at least have type and cross for 2 units. Life Flight team to the ICU and then we gave control of the patient to them and the next institution. OBDULIO/JACK Voice ID: [id number] Report ID: [id number]
[2018-08-18] MEDS ORDERED: SEVELAMER CARBONATE 800 MG TABLET PO SCH (17:55)
--- NOTE | 2018-08-18 21:38 | P.PN ---
Date of Service: 08/18/18 Vital Signs Temp Pulse Resp BP Pulse Ox 97.5 F 58 17 94/51 L 98 08/18/18 11:00 08/18/18 11:00 08/18/18 11:00 08/18/18 11:00 08/17/18 16:00 Microbiology Results 08/17/18 09:11 Blood - Blood Aerobic Blood Culture - Preliminary No growth in 24 hours. 08/17/18 09:11 Blood - Blood Anaerobic Blood Culture - Preliminary No growth in 24 hours. 08/17/18 09:30 Blood - Blood Aerobic Blood Culture - Preliminary No growth in 24 hours. 08/17/18 09:30 Blood - Blood Anaerobic Blood Culture - Final Assessment/ Plan: Nephrology/ ICU. Seen and examined in the ICU this morning during HD. Due to bleeding at the AVF, HD was discontinued. The bleeding would not stop and worsened; surgery was emergently consulted. General: Oriented x3, Cooperative HEENT: Atraumatic, Mucous membr. moist/pink Neck: Supple, JVD not distended Respiratory: Diminished Cardiovascular: Regular rate/rhythm, Edema Gastrointestinal: Soft and benign, Non-distended, No guarding Musculoskeletal: No clubbing, No contractures Integumentary: No rashes, No cyanosis Neurological: Normal speech Laboratory Data (last 24 hrs) 08/17/18 09:11: PT 40.0 H, INR 3.56 08/17/18 09:11: Sodium 135 L, Potassium 4.4, BUN 64 H, Creatinine 7.62 H*, Glucose 75 08/17/18 09:11: WBC 8.1, Hgb 10.2 L, Hct 31.4 L, Plt Count 239 Greater than 30 min patient care. Imagings Data: EXAM DESCRIPTION: RAD - Chest Single View - 08/17/2018 10:10 am CLINICAL HISTORY: dialysis, tachypnea Chest pain. COMPARISON: Chest Single View dated 07/25/2018; Chest Single View dated 2018; Chest Single View dated 11/12/2017; Chest Single View dated 10/17/2017 FINDINGS: Portable technique limits examination quality. The lungs are grossly clear. The heart is moderately prominent. No displaced fractures. IMPRESSION: No acute intrathoracic process suspected. Conclusions/Impression: A/ ESRD on HD. Diastolic CHF, A/C. HTN with CKD/ CHF complicated by hypotension concerning for sepsis. Anemia in CKD. ABE/ Secondary HyperPTH. Toxic metabolic encephalopathy. Aneurysm and bleeding of AVF. P/ Continue current POC and Medications. Seen and examined on acute HD which was complicated by bleeding at the AVF. Surgery was emergently consulted and the patient was life flighted to [place] for vascular surgery evaluation. PRBCs ordered. Case discussed with Dr. Jones and Dr. Duffy. Low sodium diet. No NSAIDs. AM labs. Daily weight.
== END 2018-08-18 11:15 | disposition short-term general hospital (02) | DRG 291 ==
LOC: ER 08:18 → ERHOLD 12:21 → 3RD-ICU 14:35 → 4TH 16:00 → 3RD-ICU 16:46
PROVIDERS: ADMIT Family Medicine; ATTEND Family Medicine
PROC: 5A1D70Z Performance of Urinary Filtration, Intermittent, Less than 6 Hours Per Day (ICD-10-PCS; principal; 2018-08-18)
PROC: 30243N1 Transfusion of Nonautologous Red Blood Cells into Central Vein, Percutaneous Approach (ICD-10-PCS; 2018-08-18)
DX: I13.2 Hypertensive heart and chronic kidney disease with heart failure and with stage 5 chronic kidney disease, or end stage renal disease (principal); G93.41 Metabolic encephalopathy; N18.6 End stage renal disease; I50.33 Acute on chronic diastolic (congestive) heart failure; B20 Human immunodeficiency virus [HIV] disease; I38 Endocarditis, valve unspecified; T82.838A Hemorrhage due to vascular prosthetic devices, implants and grafts, initial encounter; I95.9 Hypotension, unspecified; E11.22 Type 2 diabetes mellitus with diabetic chronic kidney disease; Z99.2 Dependence on renal dialysis; E66.9 Obesity, unspecified; D63.1 Anemia in chronic kidney disease; Y83.2 Surgical operation with anastomosis, bypass or graft as the cause of abnormal reaction of the patient, or of later complication, without mention of misadventure at the time of the procedure; Z68.34 Body mass index [BMI] 34.0-34.9, adult; Z86.718 Personal history of other venous thrombosis and embolism; Z85.038 Personal history of other malignant neoplasm of large intestine; Z90.49 Acquired absence of other specified parts of digestive tract
CPT/HCPCS: 36415; 70450; 71045; 80048; 80053; 82140; 82962; 83605; 83880; 84145; 85025; 85610; 86850; 86900; 86901; 86922; 87040; 90935; 93005; 93971; 96365; 99285; J0885; J2405; J3430; P9016; Q4081

== ENCOUNTER 2018-09-15 17:22 | Observation (INO) | payer OTHER ==
--- OUTSIDE RECORDS SUMMARY | 2018-09-15 17:26 | XMS REPORT | CCD ---
:1945 Author Organization [facility] Care Team Providers Name Role Phone JAYLA Foster Consulting Provider Unavailable Cindy Bonner Consulting Provider Ofelia Short Consulting Provider Kathy Horvath Consulting Provider Rakel Hoyos Consulting Provider ChartServer, Login Consulting Provider Unavailable Scarlett Bartlett Consulting Provider Yani Godinez Consulting Provider [phone] Prudence Mi Consulting Provider Unavailable SYSTEM, SYSTEM Consulting Provider Unavailable Cam Koenig Consulting Provider [phone] Eduarda Rodas Consulting Provider [phone] Ben Dent Referring Provider Joanne Gamboa Consulting Provider Unavailable Cheri Obando Consulting Provider Unavailable Allergies, Adverse Reactions, Alerts Substance Reaction Status NKDA ?? Active Problem List Condition Effective Dates Status Hemodialysis1 05/12/2010 Active HIV ?? Active Renal disease ?? Active Syncope ?? Active 1Mon, Fri, Fri Medications Medication Instructions Start Date End Date Status fentanyl 25 microgram, Route: IVP, ONCE, Start 08/16/2010 08/16/2010 Completed date: 08/16/10 10:55:00, Stop date: 08/16/10 10:55:00 metoprolol 5 mg, 5 mL, Route: IVP, Drug form: INJ, 08/16/2010 08/16/2010 Completed ONCE, Start date: 08/16/10 11:48:00, Stop date: 08/16/10 11:48:00 Vital Signs Most recent to oldest 1 2 3 [Reference Range]: Height 180.34 cm 180.34 cm ?? (08/16/2010 08:13:00) ?? (08/14/2010 16:21:00) ?? Temperature Oral 98.1 DegF 98.5 DegF ?? [96.4-99.1 DegF] (08/16/2010 10:45:00) ?? (08/16/2010 07:20:00) ?? Systolic Blood Pressure 160 mmHg 155 mmHg 182 mmHg [90-140 mmHg] *HI* *HI* *HI* (08/16/2010 12:00:00) ?? (08/16/2010 11:45:00) ?? (08/16/2010 11:30:00) ?? Diastolic Blood Pressure 72 mmHg 73 mmHg 89 mmHg [60-90 mmHg] (08/16/2010 12:00:00) ?? (08/16/2010 11:45:00) ?? (08/16/2010 11:30:00) ?? Respiratory Rate [14-20 20 BRMIN 20 BRMIN 14 BRMIN BRMIN] (08/16/2010 12:00:00) ?? (08/16/2010 11:45:00) ?? (08/16/2010 11:30: 00) ?? Weight 105.909 kg 104.545 kg ?? (08/16/2010 08:13:00) ?? (08/14/2010 16:21:00) ?? Results BEDSIDE GLUCOSE TESTING Most recent to oldest [Reference Range]: 1 Gluc POC [place] [65-110 mg/dL] 177 mg/dL 1 *HI* (08/16/2010 08:57:00) ?? 1Interpretive Data: Upper Reportable Limit: 200 mg/dL.
--- OUTSIDE RECORDS SUMMARY | 2018-09-15 17:26 | XMS REPORT | Continuity of Care Document ---
:1945 Author Organization [employer] Care Team Providers Name Role Phone DoctorC Unavailable Unavailable Problems Problem Status Onset Classification Date Comments Source Date Reported Atrial Active Finding 02/01/[address] [facility] flutter 7 - [place] Pulmonary Active Finding 02/01/[address] [facility] edema 7 - [place] ESRD Active Finding 02/01/[address] [facility] 7 - [place] Pneumonia Active Finding 02/01/[address] [facility] 7 - [place] End-stage Active Finding 02/01/[address] [facility] renal disease 7 - [place] 585.6 ESRD Active [facility] 3 585.6/ [address]777/ Active [facility] 1 Hemodialysis1 Active Problem 08/17/2010 1Mon, Wed, [facility] 1 Fri HIV Active Problem 08/17/2010 [facility] Renal disease Active Problem 08/17/2010 [facility] Syncope Active Problem 08/17/2010 [facility] END STAGE Active [facility] RENAL DISEASE Medications Medication Details Route Status Patient Ordering Order Source Instructions Provider Date Aspirin DAILY Active Moncho [facility] [place] Abacavir DAILY [facility] [place] Amlodipine DAILY Active [facility] [place] Atazanavir DAILY Active [facility]17 [facility] [place] Doxycycline TWICE Active [facility] Hyclate DAILY [facility]17 [facility] [place] Furosemide TWICE Active [facility] DAILY [facility] [place] Hydroxyzine AT BEDTIME Active [facility] Pamoate [facility]17 [facility] [place] Insulin Aspart THREE Active [facility] TIMES A [facility]17 [facility] - DAY [place] Lamivudine DAILY Active [facility] St[facility] 017 [facility] [place] Atorvastatin AT BEDTIME Active [facility] St[facility] Calcium 017 [facility] [place] Metoprolol DAILY Active [facility] St[facility] Succinate 017 [facility] [place] Gabapentin DAILY Active [facility] 017 [facility] [place] Ritonavir DAILY Active [facility] 017 [facility] [place] Sevelamer THREE Active [facility] St. Carbonate TIMES A 017 [facility] - DAY [place] Vit B DAILY Active [facility]. Comp&C/Folic 017 [facility] - Acid/Vit D3 [place] metoprolol 5 mg, 5 IVP No Filipe [facility] mL, Route: Longer 011 IVP, Drug Active form: INJ, ONCE, Start date: 08/16/10 11:48:00, Stop date: 08/16/10 11:48:00 fentanyl 25 IVP No Clowney [facility] microgram, Longer 011 Route: Active IVP, ONCE, Start date: 08/16/10 10:55:00, Stop date: 08/16/10 10:55:00 Allergies, Adverse Reactions, Alerts No Known Medication Allergies Immunizations No Data Provided for This Section Results Order Name Results Value Reference Date Interpretation Comments Source Range Laboratory Vancomycin Level <3.5 5 - 20 02/01 [facility]. Studies Trough [employer] - [place] Laboratory Bedside Glucose 143 65 - 120 02/01 [facility]. [employer] [facility] - [place] Laboratory White Blood 6.7 4.3 - 10.9 02/01 [facility] [address] Studies Count /2016 [facility] [place] Laboratory Red Cell 13.3 12.1 - 02/01 [facility]. Studies Distribution 15.2 [facility] - Width [place] Laboratory Red Blood Count 3.33 4.33 - 12 [facility]. Studies 5.43 /2016 [employer] [facility] - [place] Laboratory Platelet Count 185 152 - 406 02/01 [facility]. /2016 [facility] [place] Laboratory Neutrophils % 66.1 41.7 - 12 [facility]. Studies 73.7 /2016 [facility] [place] Laboratory Monocytes % 13.0 3.3 - 12.3 02/01 [facility] [address] Studies /2016 [facility] [place] Laboratory Mean Platelet 8.9 7.6 - 11.3 02/01 [facility] [address] Studies Volume /2016 [facility] [place] Laboratory Mean Corpuscular 93.3 80 - 100 12 [facility] [address] Studies Volume /2016 [facility] [place] Laboratory Mean Corpuscular 34.8 32.0 - 12 [facility] [address] Studies Hemoglobin 36.0 /2016 [facility] - Concent [place] Laboratory Mean Corpuscular 32.5 27.0 - 12 [facility] [address] Studies Hemoglobin 35.0 /2016 [facility] [place] Laboratory Lymphocytes % 18.5 15.3 - 12 [facility] [address] Studies 44.8 /2016 [facility] [place] Laboratory Hemoglobin 10.8 13.6 - 02/01 [facility] [address] Studies 17.9 /2016 [facility] [place] Laboratory Hematocrit 31.1 39.6 - 02/01 [facility] [address] Studies 49.0 /2016 [facility] [place] Laboratory Eosinophils % 1.9 0 - 4.4 02/01 [facility] [address] Studies /2016 [facility] [place] Laboratory Basophils % 0.5 0 - 1.3 02/01 [facility] [address] Studies /2016 [facility] [place] Laboratory Absolute 4.4 1.8 - 8.0 02/01 [facility] [address] Studies Neutrophil /2016 [facility] [place] Laboratory Absolute 0.9 0.1 - 1.3 02/01 [facility]. Studies Monocytes (CBC) /2016 [facility] [place] Laboratory Absolute 1.2 0.7 - 4.9 02/01 [facility] [address] Studies Lymphocytes [facility] - (CBC) [place] Laboratory Absolute 0.1 0 - 0.5 02/01 [facility]. Studies Eosinophils /2016 [facility] - (CBC) [place] Laboratory Absolute 0.0 0 - 0.5 02/01 [facility]. Studies Basophils (CBC) /2016 [facility] [place] Laboratory Creatinine 6.09 0.61 - 02/01 [facility] [address] Studies 1.24 /2016 [facility] [place] Laboratory Total Bilirubin 0.8 0.3 - 1.2 02/01 [facility] [address] Studies /2016 [facility] [place] Laboratory Sodium Level 139 135 - 145 02/01 [facility] [address] Studies /2016 [facility] [place] Laboratory Serum Total 6.1 6.0 - 8.3 02/01 [facility] Studies Protein [facility] Potassium Level 4.1 3.6 - 5.0 02/01 [facility]. Studies [employer] [facility] Glucose Level 79 65 - 120 02/01 [facility]. [facility] Globulin 3.0 2.3 - 3.5 02/01 [facility] Studies [employer] [facility] Estimat 9 90 02/01 [facility]. Studies Glomerular [employer] - Filtration Rate [place] Laboratory Chloride Level 104 101 - 111 02/01 [facility]. Studies [facility] Carbon Dioxide 25 21 - 31 02/01 [facility] Studies Level [employer] [facility] Calcium Level 8.4 8.5 - 10.5 02/01 [facility] Studies [facility] [employer] [facility] Blood Urea 63 6 - 20 02/01 [facility] Studies Nitrogen [employer] [facility] Laboratory Aspartate Amino 47 10 - 42 02/01 [facility]. Studies Transf [employer] - (AST/SGOT) [facility] Laboratory Alkaline 35 42 - 121 02/01 [facility] Studies Phosphatase [facility] [facility] Albumin/Globulin 1.0 1.1 - 1.8 02/01 [facility] Studies Ratio [employer] [facility] - [facility] Albumin 3.1 3.2 - 5.5 02/01 [facility] Alanine 30 10 - 60 02/01 [facility] Studies Aminotransferase [employer] - (ALT/SGPT) [facility] Hemoglobin A1c 6.0 4 - 6.0 01/30 [facility]. [facility] Magnesium Level 2.2 1.8 - 2.5 01/30 [facility] [employer] [facility] Other Total 10.7 12 - 18 01/30 [facility] Studies Hemoglobin [employer] - (Blood Gas) [facility] Blood Gas pH 7.40 7.35 - 11 [facility]. Studies 7.45 [facility] [employer] [facility] Blood Gas PO2 65.8 75 - 100 01/30 [facility] [employer] [facility] Blood Gas PCO2 32.6 35 - 45 01/30 [facility] [address] Studies [employer] - [place] Laboratory Blood Gas 90.9 94 - 97 01/30 [facility] [address] Studies Oxyhemoglobin [employer] - [place] Laboratory Blood Gas 36.0 01/30 [facility] [address] Studies Inspired Oxygen [facility] - [place] Laboratory Blood Gas HCO3 19.5 22 - 28 01/30 St[facility] [place] Laboratory Blood Gas Base -4.5 01/30 [facility] [address] Studies Excess [facility] [place] Laboratory Arterial Blood 1.1 0 - 1.5 01/30 [facility] [address] Studies Methemoglobin /2016 [employer] - [place] Laboratory Arterial Blood 1.0 0 - 1.5 01/30 [facility] St[facility] Studies Carboxyhemoglobi /2016 [employer] - n [place] Laboratory Arterial Bld O2 92.9 92 - 98.5 01/30 [facility] St[facility] Studies Saturation [employer] - (Measur) [place] Laboratory Thyroid 1.59 0.34 - 01/30 [facility] Studies Stimulating 5.60 [employer] - Hormone (TSH) [place] Laboratory Procalcitonin 0.26 01/30 [facility] [address] Studies [employer] - [place] Laboratory B-Type 652 01/30 [facility] [address] Studies Natriuretic [employer] - Peptide [place] Laboratory Creatine Kinase 2.3 0.3 - 4.0 01/30 [facility] St[facility] Studies MB [facility] - [place] Laboratory Direct Bilirubin 0.2 0 - 0.2 01/30 [facility] [address] Studies [facility] [place] Laboratory Creatine Kinase 507 22 - 269 01/30 [facility] [address] Studies [facility] [place] Laboratory Amylase Level 35 28 - 100 01/30 [facility] [address] Studies [facility] [place] Laboratory Rapid Troponin I 0.06 01/30 [facility] [address] Studies [employer] - [place] Laboratory Lipase 21 22 - 51 01/30 [facility] [address] Studies [facility] [place] Laboratory Lactic Acid 12.1 4.5 - 19.8 01/30 [facility] [address] Studies Level /2016 [facility] [place] Laboratory Prothrombin Time 13.0 9.5 - 12.5 01/30 [facility] [address] Studies [facility] [place] Laboratory INR 1.10 01/30 [facility] Studies International /2017 [facility] - Normalized Ratio [place] Laboratory Activated 30.6 24.3 - 01/30 [facility] St[facility] Studies Partial 36.9 [facility] - Thromboplast [place] Time BEDSIDE Gluc POC Lifscn 177.0 65 - 110 08/16 HI <sup>1</sup GLUCOSE >Interpreti [facility] TESTING ve Data: Upper Reportable Limit: 200 mg/dL. Pathology Reports No Data Provided for This Section Diagnostic Reports No Data Provided for This Section Consultation Notes No Data Provided for This Section Discharge Summaries No Data Provided for This Section History and Physicals No Data Provided for This Section Vital Signs Vital Sign Value Date Comments Source Heart Rate 92 02/01/[address] [facility] [place] Respitory Rate 16 02/01/[address] [facility] [place] Systolic (mm Hg) 148 02/01/[address] [facility] [place] Diastolic (mm Hg) 70 02/01/[address] [facility] [place] Temperature Oral (F) 96.9 F 02/01/[address] [facility] [place] Height 71 01/31/[address] [facility] [place] Weight 250.00 01/31/[address] [facility] [place] Diastolic (mm Hg) 72.0 08/16/2010 [facility] Respitory Rate 20.0 08/16/2010 [facility] Systolic (mm Hg) 160.0 08/16/2010 [facility] Diastolic (mm Hg) 73.0 08/16/2010 [facility] Respitory Rate 20.0 08/16/2010 [facility] Systolic (mm Hg) 155.0 08/16/2010 [facility] Diastolic (mm Hg) 89.0 08/16/2010 [facility] Respitory Rate 14.0 08/16/2010 [facility] Systolic (mm Hg) 182.0 08/16/2010 [facility] Diastolic (mm Hg) 86.0 08/16/2010 [facility] Systolic (mm Hg) 171.0 08/16/2010 [facility] Respitory Rate 14.0 08/16/2010 [facility] Diastolic (mm Hg) 72.0 08/16/2010 [facility] Systolic (mm Hg) 153.0 08/16/2010 [facility] Respitory Rate 13.0 08/16/2010 [facility] Diastolic (mm Hg) 80.0 08/16/2010 [facility] Respitory Rate 9.0 08/16/2010 [facility] Temperature Oral (F) 98.1 F 08/16/2010 [facility] Systolic (mm Hg) 159.0 08/16/2010 [facility] Height 180.34 cm 08/16/2010 [facility] Weight 105.909 08/16/2010 [facility] Diastolic (mm Hg) 82.0 08/16/2010 [facility] Respitory Rate 16.0 08/16/2010 [facility] Temperature Oral (F) 98.5 F 08/16/2010 [facility] Systolic (mm Hg) 176.0 08/16/2010 [facility] Height 180.34 cm 08/14/2010 [facility] Weight 104.545 08/14/2010 [facility] Encounters Location Location Encounter Encounter Reason Attending ADM DC Status Source Details Type Number For Provider Date Date Visit [facility] [id number] 585.6/ ANETTE 08/16 08/16 Active [facility] 13344/ FILIPE /[address] [facility] [id number] 01/30 02/[address] [facility]2016 [facility] [place] [facility] [id number] 585.6 CAROLINA Cancel [facility] ESRD LOYD Jose dalton Procedures Procedure Code Date Perfomer Comments Source Chest Pa And Lat [id number] 01/31/[address] [facility] - (2 Views) [place] Anaerobic Blood [id number] 01/30/[address] [facility] - Culture [place] Aerobic Blood [id number] 01/30/[address] [facility] - Culture [place] Elmore Count [id number] 01/30/[address] [facility] - [place] [id number] 01/30/[address] [facility] - [place] Chest Single [id number] 01/30/[address] [facility] - View [place] Influenza Type B 01/30/[address] [facility] - Antigen Screen [place] Influenza Type A 01/30/[address] [facility] - Antigen Screen [place] Assessment and Plan No Data Provided for This Section Plan of Care Plan of Care Date Source Instructions 02/01/[address] [facility] - [place] Chronic Renal Failure DI for Atrial Fibrillation Instructions 02/01/[address] [facility] - [place] Chronic Renal Failure DI for Atrial Fibrillation Social History Social History Date Source Query Response Date Recorded Comment 02/01/2017 IFEANYI Guerrero Alcohol Use? No January 31, 2017 11:52am CD- Drugs? No January 31, 2017 11:52am Query Response Start Date Stop Date Smoking Status Never smoker Family History No Data Provided for This Section Advance Directives Order Name Results Value Date Source Advance Directives Advance Directives Advance Directive Response Recorded Date/Time 02/01/2017 IFEANYI Florez - Does Patient Have Living Will Darryl No February 01, 2017 6:00am Durable Power of Photographer Model for Health Care No January 30, 2017 5:17pm Would you like additional information No January 30, 2017 5:17pm Functional Status No Data Provided for This Section
--- OUTSIDE RECORDS SUMMARY | 2018-09-15 17:33 | XMS REPORT ---
:1945 [facility] [address] Coleman [address] [place] [id number] Care Team Providers Name Role Phone GUILLEN, HUMBERTO TIERNEY Unavailable Unavailable YOEL FELICIANO Unavailable Unavailable RUSSELL CALDERON Unavailable Unavailable Problems This patient has no known problems. Allergies, Adverse Reactions, Alerts This patient has no known allergies or adverse reactions. Medications This patient has no known medications. Results Test Description Test Time Test Comments Text Results Atomic Results Result Comments PT/APTT 2018-08-26 11:42:00 Test Item Value Reference Range Comments PROTIME (BEAKER) (test xwka=808) 24.7 seconds 11.9-14.2 INR (BEAKER) (test lkfi=912) 2.4 <=5.9 PARTIAL THROMBOPLASTIN TIME (BEAKER) (test smyo=980) 57.0 seconds 22.5-36.0 Effective 07/29/2018: PT Reference Range ChangeNew: 11.9-14.2 Previous: 11.7- 14.7RECOMMENDED COUMADIN/WARFARIN INR THERAPY RANGESSTANDARD DOSE: 2.0-3.0 Includes: PROPHYLAXIS for venous thrombosis, systemic embolization; TREATMENT for venous thrombosis and/or pulmonary embolus.HIGH RISK: Target INR is2.5-3.5 for patients wiht mechanical heart valves.RAD, CHEST, 1 VIEW, NON [id number] 11:15:00Reason for exam:->effusion vs atelectasisShould this be performed at the bedside?->YesFINAL REPORT Comparison: 2018 TECHNIQUE: Single view of the chest FINDINGS: Mild prominent interstitial markings again seen, relatively similar to previous. No large effusions. No gross new lung parenchymal changes. Cardiac silhouette is enlarged. Left-sided dialysis catheter again noted, stable. A stent projects over the left upper chest. Signed: Franklin Stuart MDReport Verified Date/Time: 08/26/2018 11:15:52 Reading Location: [facility] Radiology Reading Room [id number] 09:15:00 Test Item Value Reference Range Comments PHOSPHORUS (BEAKER) (test yrre=541) 2.9 mg/dL 2.3-4.7 [id number] 09:15:00 Test Item Value Reference Range Comments MAGNESIUM (BEAKER) (test qkxo=061) 1.6 mg/dL 1.6-2.6 COMPREHENSIVE METABOLIC [id number] 09:15:00 Test Item Value Reference Range Comments TOTAL PROTEIN (BEAKER) 5.7 gm/dL 6.0-8.3 (test cycs=445) ALBUMIN (BEAKER) (test 2.8 g/dL 3.5-5.0 mlww=6827) ALKALINE PHOSPHATASE 148 U/L 40-150 (BEAKER) (test lxfg=357) BILIRUBIN TOTAL (BEAKER) 1.5 mg/dL 0.2-1.2 (test ycez=580) SODIUM (BEAKER) (test 137 meq/L 136-145 scfx=401) POTASSIUM (BEAKER) (test 3.8 meq/L 3.5-5.1 hiwj=553) CHLORIDE (BEAKER) (test 102 meq/L 98-107 dxzu=990) CO2 (BEAKER) (test 29 meq/L 22-29 ibgr=131) BLOOD UREA NITROGEN 16 mg/dL 7-21 (BEAKER) (test lxem=253) CREATININE (BEAKER) (test 3.59 mg/dL 0.57-1.25 slmi=358) GLUCOSE RANDOM (BEAKER) 74 mg/dL 70-105 (test qujo=395) CALCIUM (BEAKER) (test 8.5 mg/dL 8.4-10.2 hrhl=327) AST (SGOT) (BEAKER) (test 24 U/L 5-34 naib=312) ALT (SGPT) (BEAKER) (test 8 U/L 6-55 wezy=128) EGFR (BEAKER) (test 17 mL/min/1.73 sq m ESTIMATED GFR IS NOT vmcz=6362) ACCURATE CREATININE CLEARANCE IN PREDICTING GLOMERULAR FILTRATION RATE. ESTIMATED GFR IS NOT APPLICABLE FOR DIALYSIS PATIENTS. POCT-GLUCOSE [id number] 09:06:00 Test Item Value Reference Range Comments POC-GLUCOSE METER (BEAKER) 85 mg/dL 70-110 TESTED AT [facility] [address] (test xrmv=9497) [facility] [address] CBC W/PLT COUNT & AUTO [id number] 08:34:00 Test Item Value Reference Range Comments WHITE BLOOD CELL COUNT (BEAKER) (test aeik=342) 7.5 K/ L 3.5-10.5 RED BLOOD CELL COUNT (BEAKER) (test ostv=971) 2.50 M/ L 4.63-6.08 HEMOGLOBIN (BEAKER) (test rcoi=883) 7.9 GM/DL 13.7-17.5 HEMATOCRIT (BEAKER) (test vdhf=447) 25.5 % 40.1-51.0 MEAN CORPUSCULAR VOLUME (BEAKER) (test sxln=996) 102.0 fL 79.0-92.2 MEAN CORPUSCULAR HEMOGLOBIN (BEAKER) (test 31.6 pg 25.7-32.2 gnst=495) MEAN CORPUSCULAR HEMOGLOBIN CONC (BEAKER) (test 31.0 GM/DL 32.3-36.5 dlup=052) RED CELL DISTRIBUTION WIDTH (BEAKER) (test 17.3 % 11.6-14.4 myoo=822) PLATELET COUNT (BEAKER) (test biwo=769) 140 K/CU MM 150-450 MEAN PLATELET VOLUME (BEAKER) (test flfp=055) 10.1 fL 9.4-12.4 NUCLEATED RED BLOOD CELLS (BEAKER) (test 0 /100 WBC 0-0 jypd=591) NEUTROPHILS RELATIVE PERCENT (BEAKER) (test 70 % fifj=249) LYMPHOCYTES RELATIVE PERCENT (BEAKER) (test 13 % msrs=451) MONOCYTES RELATIVE PERCENT (BEAKER) (test 11 % atui=244) EOSINOPHILS RELATIVE PERCENT (BEAKER) (test 5 % modw=538) BASOPHILS RELATIVE PERCENT (BEAKER) (test 1 % vcuh=423) NEUTROPHILS ABSOLUTE COUNT (BEAKER) (test 5.25 K/ L 1.78-5.38 yajg=979) LYMPHOCYTES ABSOLUTE COUNT (BEAKER) (test 0.97 K/ L 1.32-3.57 psgh=582) MONOCYTES ABSOLUTE COUNT (BEAKER) (test 0.84 K/ L 0.30-0.82 xxuq=887) EOSINOPHILS ABSOLUTE COUNT (BEAKER) (test 0.37 K/ L 0.04-0.54 kkfe=297) BASOPHILS ABSOLUTE COUNT (BEAKER) (test 0.05 K/ L 0.01-0.08 hviq=428) IMMATURE GRANULOCYTES-RELATIVE PERCENT (BEAKER) 1 % 0-1 (test adge=3113) BLOOD [id number] 08:01:00 Test Item Value Reference Range Comments CULTURE (BEAKER) (test vodf=1243) No growth in 5 days BLOOD [id number] 08:01:00 Test Item Value Reference Range Comments CULTURE (BEAKER) (test bmmq=8875) No growth in 5 days POCT-GLUCOSE [id number] 22:09:00 Test Item Value Reference Range Comments POC-GLUCOSE METER (BEAKER) 186 mg/dL 70-110 TESTED AT [address] (test fkhx=0493) [facility] [address] [id number] 18:27:00 Test Item Value Reference Range Comments MAGNESIUM (BEAKER) (test 1.8 mg/dL 1.6-2.6 Specimen slightly hemolyzed zoob=551) [id number] 18:27:00 Test Item Value Reference Range Comments PHOSPHORUS (BEAKER) (test 2.0 mg/dL 2.3-4.7 Specimen slightly hemolyzed yyfv=758) COMPREHENSIVE METABOLIC [id number] 18:27:00 Test Item Value Reference Range Comments TOTAL PROTEIN (BEAKER) 5.7 gm/dL 6.0-8.3 Specimen slightly (test rkaj=316) hemolyzed ALBUMIN (BEAKER) (test 2.8 g/dL 3.5-5.0 Specimen slightly ejay=2296) hemolyzed ALKALINE PHOSPHATASE 149 U/L 40-150 (BEAKER) (test cgcn=304) BILIRUBIN TOTAL (BEAKER) 1.5 mg/dL 0.2-1.2 Specimen slightly (test ikin=156) hemolyzed SODIUM (BEAKER) (test 139 meq/L 136-145 vvca=151) POTASSIUM (BEAKER) (test 3.8 meq/L 3.5-5.1 Specimen slightly jirl=446) hemolyzed CHLORIDE (BEAKER) (test 102 meq/L 98-107 cpmt=176) CO2 (BEAKER) (test 27 meq/L 22-29 xcbx=273) BLOOD UREA NITROGEN 8 mg/dL 7-21 (BEAKER) (test snbb=296) CREATININE (BEAKER) (test 2.16 mg/dL 0.57-1.25 Specimen slightly ktud=251) hemolyzed GLUCOSE RANDOM (BEAKER) 129 mg/dL 70-105 (test tfmb=130) CALCIUM (BEAKER) (test 8.5 mg/dL 8.4-10.2 ftty=092) AST (SGOT) (BEAKER) (test 34 U/L 5-34 Specimen slightly grfe=329) hemolyzed ALT (SGPT) (BEAKER) (test 10 U/L 6-55 Specimen slightly modh=589) hemolyzed EGFR (BEAKER) (test 30 mL/min/1.73 sq m ESTIMATED GFR IS NOT ygls=4668) ACCURATE CREATININE CLEARANCE IN PREDICTING GLOMERULAR FILTRATION RATE. ESTIMATED GFR IS NOT APPLICABLE FOR DIALYSIS PATIENTS. PROTHROMBIN [id number] 18:24:00 Test Item Value Reference Range Comments PROTIME (BEAKER) (test wcpm=831) 28.1 seconds 11.9-14.2 INR (BEAKER) (test zjlx=712) 2.8 <=5.9 Effective 07/29/2018: PT Reference Range ChangeNew: 11.9-14.2 Previous: 11.7- 14.7RECOMMENDED COUMADIN/WARFARIN INR THERAPY RANGESSTANDARD DOSE: 2.0-3.0 Includes: PROPHYLAXIS for venous thrombosis, systemic embolization; TREATMENT for venous thrombosis and/or pulmonary embolus.HIGH RISK: Target INR is2.5-3.5 for patients wiht mechanical heart valves.CBC W/PLT COUNT & AUTO [id number] 18:07:00 Test Item Value Reference Range Comments WHITE BLOOD CELL COUNT (BEAKER) (test qjqy=149) 7.4 K/ L 3.5-10.5 RED BLOOD CELL COUNT (BEAKER) (test grkd=881) 2.23 M/ L 4.63-6.08 HEMOGLOBIN (BEAKER) (test yfxf=493) 7.0 GM/DL 13.7-17.5 HEMATOCRIT (BEAKER) (test jzwv=913) 22.8 % 40.1-51.0 MEAN CORPUSCULAR VOLUME (BEAKER) (test uiua=278) 102.2 fL 79.0-92.2 MEAN CORPUSCULAR HEMOGLOBIN (BEAKER) (test 31.4 pg 25.7-32.2 fizr=128) MEAN CORPUSCULAR HEMOGLOBIN CONC (BEAKER) (test 30.7 GM/DL 32.3-36.5 ugoh=161) RED CELL DISTRIBUTION WIDTH (BEAKER) (test 17.5 % 11.6-14.4 jyvv=418) PLATELET COUNT (BEAKER) (test tyyu=027) 141 K/CU MM 150-450 MEAN PLATELET VOLUME (BEAKER) (test xlha=660) 10.4 fL 9.4-12.4 NUCLEATED RED BLOOD CELLS (BEAKER) (test 0 /100 WBC 0-0 jryy=201) NEUTROPHILS RELATIVE PERCENT (BEAKER) (test 76 % ynux=398) LYMPHOCYTES RELATIVE PERCENT (BEAKER) (test 7 % nhje=164) MONOCYTES RELATIVE PERCENT (BEAKER) (test 11 % fqyu=585) EOSINOPHILS RELATIVE PERCENT (BEAKER) (test 5 % olru=948) BASOPHILS RELATIVE PERCENT (BEAKER) (test 1 % ybip=656) NEUTROPHILS ABSOLUTE COUNT (BEAKER) (test 5.54 K/ L 1.78-5.38 xain=949) LYMPHOCYTES ABSOLUTE COUNT (BEAKER) (test 0.54 K/ L 1.32-3.57 uorb=292) MONOCYTES ABSOLUTE COUNT (BEAKER) (test 0.78 K/ L 0.30-0.82 bync=649) EOSINOPHILS ABSOLUTE COUNT (BEAKER) (test 0.37 K/ L 0.04-0.54 elhu=850) BASOPHILS ABSOLUTE COUNT (BEAKER) (test 0.06 K/ L 0.01-0.08 dloc=390) IMMATURE GRANULOCYTES-RELATIVE PERCENT (BEAKER) 1 % 0-1 (test njbe=4538) POCT-GLUCOSE [id number] 17:43:00 Test Item Value Reference Range Comments POC-GLUCOSE METER (BEAKER) 140 mg/dL 70-110 TESTED AT [facility] [address] [facility] (test tqiu=4157) [facility] [address] POCT-GLUCOSE [id number] 19:25:00 Test Item Value Reference Range Comments POC-GLUCOSE METER (BEAKER) 106 mg/dL 70-110 TESTED AT [facility] [address] [facility] (test jdvz=4098) [facility] [address] COMPREHENSIVE METABOLIC [id number] 17:30:00 Test Item Value Reference Range Comments TOTAL PROTEIN (BEAKER) 5.7 gm/dL 6.0-8.3 (test meis=884) ALBUMIN (BEAKER) (test 2.8 g/dL 3.5-5.0 fdqs=0999) ALKALINE PHOSPHATASE 166 U/L 40-150 (BEAKER) (test wmdt=985) BILIRUBIN TOTAL (BEAKER) 1.6 mg/dL 0.2-1.2 (test drtk=126) SODIUM (BEAKER) (test 135 meq/L 136-145 zgjh=104) POTASSIUM (BEAKER) (test 4.4 meq/L 3.5-5.1 yxlj=692) CHLORIDE (BEAKER) (test 99 meq/L 98-107 gjfl=717) CO2 (BEAKER) (test 29 meq/L 22-29 zxgu=932) BLOOD UREA NITROGEN 31 mg/dL 7-21 (BEAKER) (test rgtt=283) CREATININE (BEAKER) (test 5.20 mg/dL 0.57-1.25 wupg=810) GLUCOSE RANDOM (BEAKER) 127 mg/dL 70-105 (test blit=666) CALCIUM (BEAKER) (test 8.8 mg/dL 8.4-10.2 dzae=293) AST (SGOT) (BEAKER) (test 30 U/L 5-34 pxjl=711) ALT (SGPT) (BEAKER) (test 9 U/L 6-55 wjel=709) EGFR (BEAKER) (test 11 mL/min/1.73 sq m ESTIMATED GFR IS NOT xziz=0622) ACCURATE CREATININE CLEARANCE IN PREDICTING GLOMERULAR FILTRATION RATE. ESTIMATED GFR IS NOT APPLICABLE FOR DIALYSIS PATIENTS. [id number] 17:29:00 Test Item Value Reference Range Comments PHOSPHORUS (BEAKER) (test qihi=325) 4.0 mg/dL 2.3-4.7 [id number] 17:29:00 Test Item Value Reference Range Comments MAGNESIUM (BEAKER) (test otxj=464) 2.2 mg/dL 1.6-2.6 [id number] 17:25:00 Test Item Value Reference Range Comments PROTIME (BEAKER) (test mwba=229) 24.9 seconds 11.9-14.2 INR (BEAKER) (test avki=622) 2.4 <=5.9 PARTIAL THROMBOPLASTIN TIME (BEAKER) (test 49.8 seconds 22.5-36.0 lxxa=952) Effective 07/29/2018: PT Reference Range ChangeNew: 11.9-14.2 Previous: 11.7- 14.7RECOMMENDED COUMADIN/WARFARIN INR THERAPY RANGESSTANDARD DOSE: 2.0-3.0 Includes: PROPHYLAXIS for venous thrombosis, systemic embolization; TREATMENT for venous thrombosis and/or pulmonary embolus.HIGH RISK: Target INR is2.5-3.5 for patients wiht mechanical heart valves.Draw during dialysisDraw during dialysisPROTHROMBIN [id number] 17:24:00 Test Item Value Reference Range Comments PROTIME (BEAKER) (test vkbh=448) 24.9 seconds 11.9-14.2 INR (BEAKER) (test jmnz=033) 2.4 <=5.9 Effective 07/29/2018: PT Reference Range ChangeNew: 11.9-14.2 Previous: 11.7- 14.7RECOMMENDED COUMADIN/WARFARIN INR THERAPY RANGESSTANDARD DOSE: 2.0-3.0 Includes: PROPHYLAXIS for venous thrombosis, systemic embolization; TREATMENT for venous thrombosis and/or pulmonary embolus.HIGH RISK: Target INR is2.5-3.5 for patients wiht mechanical heart valves.CBC W/PLT COUNT & AUTO [id number] 17:17:00 Test Item Value Reference Range Comments WHITE BLOOD CELL COUNT (BEAKER) (test rzsx=120) 8.0 K/ L 3.5-10.5 RED BLOOD CELL COUNT (BEAKER) (test sxon=250) 2.31 M/ L 4.63-6.08 HEMOGLOBIN (BEAKER) (test xosc=000) 7.4 GM/DL 13.7-17.5 HEMATOCRIT (BEAKER) (test lgih=110) 23.0 % 40.1-51.0 MEAN CORPUSCULAR VOLUME (BEAKER) (test ujnu=897) 99.6 fL 79.0-92.2 MEAN CORPUSCULAR HEMOGLOBIN (BEAKER) (test 32.0 pg 25.7-32.2 pity=767) MEAN CORPUSCULAR HEMOGLOBIN CONC (BEAKER) (test 32.2 GM/DL 32.3-36.5 efmy=179) RED CELL DISTRIBUTION WIDTH (BEAKER) (test 17.6 % 11.6-14.4 bvnu=660) PLATELET COUNT (BEAKER) (test ntfw=313) 140 K/CU MM 150-450 MEAN PLATELET VOLUME (BEAKER) (test erlr=462) 10.6 fL 9.4-12.4 NUCLEATED RED BLOOD CELLS (BEAKER) (test 0 /100 WBC 0-0 lbsb=987) NEUTROPHILS RELATIVE PERCENT (BEAKER) (test 77 % rezb=829) LYMPHOCYTES RELATIVE PERCENT (BEAKER) (test 8 % xwns=134) MONOCYTES RELATIVE PERCENT (BEAKER) (test 10 % hphf=656) EOSINOPHILS RELATIVE PERCENT (BEAKER) (test 5 % hzbu=958) BASOPHILS RELATIVE PERCENT (BEAKER) (test 1 % oenq=632) NEUTROPHILS ABSOLUTE COUNT (BEAKER) (test 6.12 K/ L 1.78-5.38 jcvl=019) LYMPHOCYTES ABSOLUTE COUNT (BEAKER) (test 0.62 K/ L 1.32-3.57 nttz=597) MONOCYTES ABSOLUTE COUNT (BEAKER) (test 0.78 K/ L 0.30-0.82 haue=687) EOSINOPHILS ABSOLUTE COUNT (BEAKER) (test 0.38 K/ L 0.04-0.54 xpln=252) BASOPHILS ABSOLUTE COUNT (BEAKER) (test 0.04 K/ L 0.01-0.08 ehka=469) IMMATURE GRANULOCYTES-RELATIVE PERCENT (BEAKER) 1 % 0-1 (test enzr=7715) POCT-GLUCOSE [id number] 12:10:00 Test Item Value Reference Range Comments POC-GLUCOSE METER (BEAKER) 164 mg/dL 70-110 TESTED AT [facility] [address] [facility] (test zqyw=9640) [facility] [address] RAD, CHEST, 1 VIEW, NON [id number] 09:42:00Reason for exam:->effusion vs atelectasisShould this be performed at the bedside?->YesFINAL REPORT CLINICAL HISTORY: effusion vs atelectasis TECHNIQUE: 1 view of the chest. COMPARISON: 08/23/2018 IMPRESSION: The left central line is unchanged. Bilateral airspace opacities appear slightly decreased. There is no significant pleural fluid. The cardiomediastinal silhouette is magnified by technique. Signed: Stephanie Santacruz Verified Date/Time: 08/24/2018 09:42: 37 Reading Location: [facility] Radiology Reading Room POCT-GLUCOSE [id number] 08:18:00 Test Item Value Reference Range Comments POC-GLUCOSE METER (BEAKER) 145 mg/dL 70-110 TESTED AT [address] (test dowf=9360) [place] [id number] POCT-GLUCOSE [id number] 23:55:00 Test Item Value Reference Range Comments POC-GLUCOSE METER (BEAKER) 163 mg/dL 70-110 TESTED AT [address] (test sasa=5627) [place] [id number] POCT-GLUCOSE [id number] 18:04:00 Test Item Value Reference Range Comments POC-GLUCOSE METER (BEAKER) 141 mg/dL 70-110 TESTED AT [address] (test uhvb=4664) [place] [id number] POCT-GLUCOSE [id number] 08:04:00 Test Item Value Reference Range Comments POC-GLUCOSE METER (BEAKER) 138 mg/dL 70-110 TESTED AT [address] (test daof=6966) [place] [address] RAD, CHEST, 1 VIEW, NON [id number] 07:29:00Reason for exam:->effusion vs atelectasisShould this be performed at the bedside?->YesFINAL REPORT CLINICAL HISTORY: effusion vs atelectasis TECHNIQUE: 1 view of the chest. COMPARISON: 08/22/2018 IMPRESSION: The left central line is unchanged. There are low lung volumes with persistent pulmonary vascular congestion. Bilateral airspace opacities may be slightly increased. Subpulmonic pleural effusions cannot be excluded. The cardiomediastinal silhouette is magnified by technique. Signed: Santacruz, Stephanie MDReport Verified Date/Time: 07:29:02 Reading Location: [facility] C013V Neuro Reading Room COMPREHENSIVE METABOLIC [id number] 04:16:00 Test Item Value Reference Range Comments TOTAL PROTEIN (BEAKER) 5.6 gm/dL 6.0-8.3 (test qgha=072) ALBUMIN (BEAKER) (test 2.8 g/dL 3.5-5.0 zurf=7883) ALKALINE PHOSPHATASE 174 U/L 40-150 (BEAKER) (test ansc=574) BILIRUBIN TOTAL (BEAKER) 1.5 mg/dL 0.2-1.2 (test ptsn=254) SODIUM (BEAKER) (test 138 meq/L 136-145 jlfc=977) POTASSIUM (BEAKER) (test 4.0 meq/L 3.5-5.1 covs=529) CHLORIDE (BEAKER) (test 102 meq/L 98-107 higc=522) CO2 (BEAKER) (test 27 meq/L 22-29 qgwx=068) BLOOD UREA NITROGEN 19 mg/dL 7-21 (BEAKER) (test ihks=774) CREATININE (BEAKER) (test 3.43 mg/dL 0.57-1.25 mqau=008) GLUCOSE RANDOM (BEAKER) 146 mg/dL 70-105 (test onha=428) CALCIUM (BEAKER) (test 8.7 mg/dL 8.4-10.2 yzmz=405) AST (SGOT) (BEAKER) (test 31 U/L 5-34 sokk=790) ALT (SGPT) (BEAKER) (test 15 U/L 6-55 klnm=710) EGFR (BEAKER) (test 18 mL/min/1.73 sq m ESTIMATED GFR IS NOT omjo=3003) ACCURATE CREATININE CLEARANCE IN PREDICTING GLOMERULAR FILTRATION RATE. ESTIMATED GFR IS NOT APPLICABLE FOR DIALYSIS PATIENTS. [id number] 04:04:00 Test Item Value Reference Range Comments PHOSPHORUS (BEAKER) (test apwa=153) 2.8 mg/dL 2.3-4.7 [id number] 04:04:00 Test Item Value Reference Range Comments MAGNESIUM (BEAKER) (test gmpo=067) 1.9 mg/dL 1.6-2.6 CBC W/PLT COUNT & AUTO [id number] 03:34:00 Test Item Value Reference Range Comments WHITE BLOOD CELL COUNT (BEAKER) (test pzqp=073) 7.1 K/ L 3.5-10.5 RED BLOOD CELL COUNT (BEAKER) (test ykof=874) 2.48 M/ L 4.63-6.08 HEMOGLOBIN (BEAKER) (test etbc=388) 7.8 GM/DL 13.7-17.5 HEMATOCRIT (BEAKER) (test uosn=404) 25.0 % 40.1-51.0 MEAN CORPUSCULAR VOLUME (BEAKER) (test ddqf=918) 100.8 fL 79.0-92.2 MEAN CORPUSCULAR HEMOGLOBIN (BEAKER) (test 31.5 pg 25.7-32.2 yjwy=208) MEAN CORPUSCULAR HEMOGLOBIN CONC (BEAKER) (test 31.2 GM/DL 32.3-36.5 kwfl=897) RED CELL DISTRIBUTION WIDTH (BEAKER) (test 17.5 % 11.6-14.4 ttax=819) PLATELET COUNT (BEAKER) (test cvqd=618) 150 K/CU MM 150-450 MEAN PLATELET VOLUME (BEAKER) (test ckci=710) 10.5 fL 9.4-12.4 NUCLEATED RED BLOOD CELLS (BEAKER) (test 0 /100 WBC 0-0 dezp=857) NEUTROPHILS RELATIVE PERCENT (BEAKER) (test 72 % ijko=183) LYMPHOCYTES RELATIVE PERCENT (BEAKER) (test 12 % vjtn=022) MONOCYTES RELATIVE PERCENT (BEAKER) (test 10 % kfwu=787) EOSINOPHILS RELATIVE PERCENT (BEAKER) (test 5 % pcxf=027) BASOPHILS RELATIVE PERCENT (BEAKER) (test 1 % nehi=666) NEUTROPHILS ABSOLUTE COUNT (BEAKER) (test 5.08 K/ L 1.78-5.38 oegc=437) LYMPHOCYTES ABSOLUTE COUNT (BEAKER) (test 0.86 K/ L 1.32-3.57 enak=319) MONOCYTES ABSOLUTE COUNT (BEAKER) (test 0.68 K/ L 0.30-0.82 zfpa=008) EOSINOPHILS ABSOLUTE COUNT (BEAKER) (test 0.36 K/ L 0.04-0.54 tzal=796) BASOPHILS ABSOLUTE COUNT (BEAKER) (test 0.04 K/ L 0.01-0.08 nuok=848) IMMATURE GRANULOCYTES-RELATIVE PERCENT (BEAKER) 1 % 0-1 (test bwwf=2237) [id number] 03:34:00 Test Item Value Reference Range Comments PROTIME (BEAKER) (test tufd=683) 24.7 seconds 11.9-14.2 INR (BEAKER) (test rlnp=073) 2.4 <=5.9 PARTIAL THROMBOPLASTIN TIME (BEAKER) (test 78.1 seconds 22.5-36.0 uaru=601) Effective 07/29/2018: PT Reference Range ChangeNew: 11.9-14.2 Previous: 11.7- 14.7RECOMMENDED COUMADIN/WARFARIN INR THERAPY RANGESSTANDARD DOSE: 2.0-3.0 Includes: PROPHYLAXIS for venous thrombosis, systemic embolization; TREATMENT for venous thrombosis and/or pulmonary embolus.HIGH RISK: Target INR is2.5-3.5 for patients wiht mechanical heart valves.PROTHROMBIN [id number] 03:32: 00 Test Item Value Reference Range Comments PROTIME (BEAKER) (test qujx=621) 24.7 seconds 11.9-14.2 INR (BEAKER) (test nrpv=821) 2.4 <=5.9 Effective 07/29/2018: PT Reference Range ChangeNew: 11.9-14.2 Previous: 11.7- 14.7RECOMMENDED COUMADIN/WARFARIN INR THERAPY RANGESSTANDARD DOSE: 2.0-3.0 Includes: PROPHYLAXIS for venous thrombosis, systemic embolization; TREATMENT for venous thrombosis and/or pulmonary embolus.HIGH RISK: Target INR is2.5-3.5 for patients wiht mechanical heart valves.POCT-GLUCOSE [id number] 21:42:00 Test Item Value Reference Range Comments POC-GLUCOSE METER (BEAKER) 155 mg/dL 70-110 TESTED AT [facility] [address] [facility] (test huqh=9825) [facility] [address] HEPATITIS B SURFACE [id number] 18:37:00 Test Item Value Reference Range Comments HEPATITIS B SURFACE ANTIGEN (2) (BEAKER) (test Nonreactive Nonreactive nyll=8234) POCT-GLUCOSE [id number] 16:21:00 Test Item Value Reference Range Comments POC-GLUCOSE METER (BEAKER) 114 mg/dL 70-110 TESTED AT [facility] [address] (test ermp=6976) [facility] [address] RAD, CHEST, 1 VIEW, NON [id number] 10:26:00Reason for exam:->effusion vs atelectasisShould this be performed at the bedside?->YesFINAL REPORT Comparison: 08/21/2018 at 7:46 AM TECHNIQUE: Single view of the chest FINDINGS: Lung volumes are low. Some bibasilar densities may represent atelectasis. Otherwise lungs are clear. Left-sided dialysis catheter noted with tip projecting laterally against the SVC. Stents project over the left upper arm and chest. No acute skeletal abnormality. IMPRESSION: 1. No acute cardiopulmonary disease. Signed: Franklin Stuart MDReport Verified Date/Time: 08/22 10:26:49 Reading Location: [address] Transitional Reading Room COMPREHENSIVE METABOLIC [id number] 09:58:00 Test Item Value Reference Range Comments TOTAL PROTEIN (BEAKER) 5.7 gm/dL 6.0-8.3 Specimen slightly (test sfsh=952) hemolyzed ALBUMIN (BEAKER) (test 2.8 g/dL 3.5-5.0 Specimen slightly bhti=8420) hemolyzed ALKALINE PHOSPHATASE 179 U/L 40-150 (BEAKER) (test rndw=639) BILIRUBIN TOTAL (BEAKER) 1.2 mg/dL 0.2-1.2 Specimen slightly (test bzka=415) hemolyzed SODIUM (BEAKER) (test 137 meq/L 136-145 khrz=448) POTASSIUM (BEAKER) (test 4.8 meq/L 3.5-5.1 Specimen slightly eprv=051) hemolyzed CHLORIDE (BEAKER) (test 104 meq/L 98-107 mdsx=412) CO2 (BEAKER) (test 25 meq/L 22-29 hlmo=864) BLOOD UREA NITROGEN 30 mg/dL 7-21 (BEAKER) (test scnt=582) CREATININE (BEAKER) (test 4.82 mg/dL 0.57-1.25 Specimen slightly ecyj=843) hemolyzed GLUCOSE RANDOM (BEAKER) 139 mg/dL 70-105 (test ngcx=567) CALCIUM (BEAKER) (test 8.7 mg/dL 8.4-10.2 ucpn=638) AST (SGOT) (BEAKER) (test 38 U/L 5-34 Specimen slightly kduy=141) hemolyzed ALT (SGPT) (BEAKER) (test 18 U/L 6-55 Specimen slightly eqxm=130) hemolyzed EGFR (BEAKER) (test 12 mL/min/1.73 sq m ESTIMATED GFR IS NOT tsii=5664) ACCURATE CREATININE CLEARANCE IN PREDICTING GLOMERULAR FILTRATION RATE. ESTIMATED GFR IS NOT APPLICABLE FOR DIALYSIS PATIENTS. [id number] 09:41:00 Test Item Value Reference Range Comments MAGNESIUM (BEAKER) (test 2.3 mg/dL 1.6-2.6 Specimen slightly hemolyzed hlqv=445) [id number] 09:41:00 Test Item Value Reference Range Comments PHOSPHORUS (BEAKER) (test 3.8 mg/dL 2.3-4.7 Specimen slightly hemolyzed ktyv=907) BLOOD [id number] 09:14:00 Test Item Value Reference Range Comments CULTURE (BEAKER) (test STAPHYLOCOCCUS AUREUS From Aerobic And lzsg=9179) Anaerobic Bottles Staphylococcus aureus Clindamycin (test code=10) Erythromycin (test code=4) Linezolid (test code=40) Oxacillin (test code=14) Rifampin (test code=43) Tetracycline (test code=2) Trimethoprim + Sulfamethoxazole (test code=47) Vancomycin (test code=13) GRAM STAIN RESULT From aerobic and (BEAKER) (test lyul=4007) anaerobic bottles: gram positive cocci in pairs and clusters U/S, EXTREMITY (NON-VASCULAR) [id number] 08:59:00Reason for exam:-> AVF Left arm for fluid collection Should this be performed at the bedside?-> YesFINAL REPORT Ultrasound of the left upper extremity. HISTORY: Left arm for fluid collection. Comparison study: August 21, 2018. FINDINGS: Sonographic assessment of the left upper extremity at the site of the patient's AV fistula was performed with a high-resolution linear probe. An open wound is noted. The fistula is partially thrombosed. Only minimal fluid is seen , as on previous. IMPRESSION: Partially thrombosed left AV fistula. Minimal fluid seen. Signed: Daniel Gibbsort Verified Date/Time: 08/22/2018 08: 59:48 Reading Location: [address] Ortho Consult Reading Room POCT- GLUCOSE [id number] 07:15:00 Test Item Value Reference Range Comments POC-GLUCOSE METER (BEAKER) 160 mg/dL 70-110 TESTED AT [facility] [address] [facility] (test dhcj=9544) [facility] [address] [id number] 06:52:00 Test Item Value Reference Range Comments PROTIME (BEAKER) (test ewsw=990) 18.5 seconds 11.9-14.2 INR (BEAKER) (test rvjm=271) 1.6 <=5.9 PARTIAL THROMBOPLASTIN TIME (BEAKER) (test 72.0 seconds 22.5-36.0 jyfy=522) Effective 07/29/2018: PT Reference Range ChangeNew: 11.9-14.2 Previous: 11.7- 14.7RECOMMENDED COUMADIN/WARFARIN INR THERAPY RANGESSTANDARD DOSE: 2.0-3.0 Includes: PROPHYLAXIS for venous thrombosis, systemic embolization; TREATMENT for venous thrombosis and/or pulmonary embolus.HIGH RISK: Target INR is2.5-3.5 for patients wiht mechanical heart valves.CBC W/PLT COUNT & AUTO [id number] 06:44:00 Test Item Value Reference Range Comments WHITE BLOOD CELL COUNT 7.2 K/ L 3.5-10.5 (BEAKER) (test jums=205) RED BLOOD CELL COUNT (BEAKER) 2.58 M/ L 4.63-6.08 (test fslg=618) HEMOGLOBIN (BEAKER) (test 8.2 GM/DL 13.7-17.5 qizo=208) HEMATOCRIT (BEAKER) (test 26.4 % 40.1-51.0 qnyd=119) MEAN CORPUSCULAR VOLUME 102.3 fL 79.0-92.2 Discordant result compares (BEAKER) (test vtmy=213) with previous; clinical correlation requires. MEAN CORPUSCULAR HEMOGLOBIN 31.8 pg 25.7-32.2 (BEAKER) (test ukao=832) MEAN CORPUSCULAR HEMOGLOBIN 31.1 GM/DL 32.3-36.5 CONC (BEAKER) (test wtnv=155) RED CELL DISTRIBUTION WIDTH 18.0 % 11.6-14.4 (BEAKER) (test bzid=764) PLATELET COUNT (BEAKER) (test 172 K/CU MM 150-450 jmrm=539) MEAN PLATELET VOLUME (BEAKER) 10.9 fL 9.4-12.4 (test xhnv=826) NUCLEATED RED BLOOD CELLS 0 /100 WBC 0-0 (BEAKER) (test tuaj=370) NEUTROPHILS RELATIVE PERCENT 75 % (BEAKER) (test lpgo=016) LYMPHOCYTES RELATIVE PERCENT 8 % (BEAKER) (test luni=621) MONOCYTES RELATIVE PERCENT 10 % (BEAKER) (test jsmp=108) EOSINOPHILS RELATIVE PERCENT 5 % (BEAKER) (test nlxc=179) BASOPHILS RELATIVE PERCENT 1 % (BEAKER) (test kfbs=481) NEUTROPHILS ABSOLUTE COUNT 5.46 K/ L 1.78-5.38 (BEAKER) (test zuey=560) LYMPHOCYTES ABSOLUTE COUNT 0.59 K/ L 1.32-3.57 (BEAKER) (test wskk=543) MONOCYTES ABSOLUTE COUNT 0.75 K/ L 0.30-0.82 (BEAKER) (test ymgs=919) EOSINOPHILS ABSOLUTE COUNT 0.33 K/ L 0.04-0.54 (BEAKER) (test bywc=891) BASOPHILS ABSOLUTE COUNT 0.04 K/ L 0.01-0.08 (BEAKER) (test atjo=800) IMMATURE 1 % 0-1 GRANULOCYTES-RELATIVE PERCENT (BEAKER) (test ffvr=7070) POCT-GLUCOSE [id number] 22:02:00 Test Item Value Reference Range Comments POC-GLUCOSE METER (BEAKER) 194 mg/dL 70-110 TESTED AT [facility] [address] [facility] (test bjxr=3487) [facility] [address] U/S, EXTREMITY (NON-VASCULAR), LEFT, [id number] 20:03:00Reason for exam:- >left upper arm around fistula for fluid collectionFINAL REPORT Left arm dated 08/21/2018 Comment: High resolution ultrasound examination of the left arm was performed. There is diffusely increased echogenicity in subcutaneous soft tissue suggestive of subcutaneous edema. Fistula is identified in the left arm. Thrombus is seen inthe segment of the fistula. No fluid collection is present to suggest abscess or hematoma. Signed: Bridget Del Rosario MDReport Verified Date/Time: 08/21/2018 20:03:43 Reading Location: [facility] C013 Consult Reading Room POCT-GLUCOSE [id number] 17:27:00 Test Item Value Reference Range Comments POC-GLUCOSE METER (BEAKER) 202 mg/dL 70-110 TESTED AT [address] (test bieh=8028) [place] [address] POCT-GLUCOSE [id number] 11:50:00 Test Item Value Reference Range Comments POC-GLUCOSE METER (BEAKER) 130 mg/dL 70-110 TESTED AT [address] (test dzvx=7540) [place] [address] RAD, CHEST, 1 VIEW, NON [id number] 08:49:00Reason for exam:->effusion vs atelectasisShould this be performed at the bedside?->YesFINAL REPORT TECHNIQUE: Frontal view of the chest. INDICATION: 72-year-old man with pleural effusion versus atelectasis. COMPARISON: Chest radiograph 2018. FINDINGS: LINES/TUBES: Unchanged right internal jugular analysis catheter , the tip appears to be located within the azygos vein. LUNGS: No consolidation or pulmonary edema. PLEURA: No pneumothorax or significant pleural effusion. HEART AND MEDIASTINUM: The cardiomediastinal silhouette is unchanged. Atherosclerotic calcifications in the thoracic aorta. SOFT TISSUES AND BONES: Unremarkable. IMPRESSION:No acute cardiopulmonary abnormalities. Signed: Viraj De Oliveira MDReport Verified Date/Time: 08/21/2018 08:49:32 Reading Location: [facility] Radiology Reading Room POCT-GLUCOSE [id number] 08: 09:00 Test Item Value Reference Range Comments POC-GLUCOSE METER (BEAKER) 221 mg/dL 70-110 TESTED AT [facility] [address] (test kcvx=7832) [place] [address] COMPREHENSIVE METABOLIC [id number] 02:27:00 Test Item Value Reference Range Comments TOTAL PROTEIN (BEAKER) 5.5 gm/dL 6.0-8.3 Specimen slightly (test uuyz=253) hemolyzed ALBUMIN (BEAKER) (test 2.7 g/dL 3.5-5.0 Specimen slightly peta=0963) hemolyzed ALKALINE PHOSPHATASE 156 U/L 40-150 (BEAKER) (test leed=144) BILIRUBIN TOTAL (BEAKER) 1.2 mg/dL 0.2-1.2 Specimen slightly (test vtpv=983) hemolyzed SODIUM (BEAKER) (test 135 meq/L 136-145 hwoy=488) POTASSIUM (BEAKER) (test 4.7 meq/L 3.5-5.1 Specimen slightly dhaq=874) hemolyzed CHLORIDE (BEAKER) (test 98 meq/L 98-107 ygpa=530) CO2 (BEAKER) (test 28 meq/L 22-29 hwuo=040) BLOOD UREA NITROGEN 40 mg/dL 7-21 (BEAKER) (test hpfn=010) CREATININE (BEAKER) (test 6.42 mg/dL 0.57-1.25 Specimen slightly eurc=130) hemolyzed GLUCOSE RANDOM (BEAKER) 228 mg/dL 70-105 (test fgec=887) CALCIUM (BEAKER) (test 8.6 mg/dL 8.4-10.2 gmiz=174) AST (SGOT) (BEAKER) (test 38 U/L 5-34 Specimen slightly bchc=720) hemolyzed ALT (SGPT) (BEAKER) (test 28 U/L 6-55 Specimen slightly fuaz=199) hemolyzed EGFR (BEAKER) (test 9 mL/min/1.73 sq m ESTIMATED GFR IS NOT hmgl=1155) ACCURATE CREATININE CLEARANCE IN PREDICTING GLOMERULAR FILTRATION RATE. ESTIMATED GFR IS NOT APPLICABLE FOR DIALYSIS PATIENTS. [id number] 02:19:00 Test Item Value Reference Range Comments PROTIME (BEAKER) (test tsfs=069) 19.6 seconds 11.9-14.2 INR (BEAKER) (test jazl=161) 1.8 <=5.9 PARTIAL THROMBOPLASTIN TIME (BEAKER) (test 74.9 seconds 22.5-36.0 tkcb=370) Effective 07/29/2018: PT Reference Range ChangeNew: 11.9-14.2 Previous: 11.7- 14.7RECOMMENDED COUMADIN/WARFARIN INR THERAPY RANGESSTANDARD DOSE: 2.0-3.0 Includes: PROPHYLAXIS for venous thrombosis, systemic embolization; TREATMENT for venous thrombosis and/or pulmonary embolus.HIGH RISK: Target INR is2.5-3.5 for patients wiht mechanical heart valves.[id number] 02:15:00 Test Item Value Reference Range Comments MAGNESIUM (BEAKER) (test 2.3 mg/dL 1.6-2.6 Specimen slightly hemolyzed zhld=134) [id number] 02:15:00 Test Item Value Reference Range Comments PHOSPHORUS (BEAKER) (test 4.2 mg/dL 2.3-4.7 Specimen slightly hemolyzed dxfw=438) CBC W/PLT COUNT & AUTO [id number] 01:56:00 Test Item Value Reference Range Comments WHITE BLOOD CELL COUNT (BEAKER) (test nfzg=649) 7.5 K/ L 3.5-10.5 RED BLOOD CELL COUNT (BEAKER) (test irpd=959) 2.55 M/ L 4.63-6.08 HEMOGLOBIN (BEAKER) (test izfd=394) 8.2 GM/DL 13.7-17.5 HEMATOCRIT (BEAKER) (test yfqf=265) 24.9 % 40.1-51.0 MEAN CORPUSCULAR VOLUME (BEAKER) (test ctst=383) 97.6 fL 79.0-92.2 MEAN CORPUSCULAR HEMOGLOBIN (BEAKER) (test 32.2 pg 25.7-32.2 yxhm=910) MEAN CORPUSCULAR HEMOGLOBIN CONC (BEAKER) (test 32.9 GM/DL 32.3-36.5 gtdo=174) RED CELL DISTRIBUTION WIDTH (BEAKER) (test 17.7 % 11.6-14.4 aasw=415) PLATELET COUNT (BEAKER) (test ddsh=787) 171 K/CU MM 150-450 MEAN PLATELET VOLUME (BEAKER) (test hcxc=655) 10.5 fL 9.4-12.4 NUCLEATED RED BLOOD CELLS (BEAKER) (test 0 /100 WBC 0-0 wgtf=457) NEUTROPHILS RELATIVE PERCENT (BEAKER) (test 71 % abbl=449) LYMPHOCYTES RELATIVE PERCENT (BEAKER) (test 12 % ugjh=837) MONOCYTES RELATIVE PERCENT (BEAKER) (test 12 % yqdy=852) EOSINOPHILS RELATIVE PERCENT (BEAKER) (test 4 % vycz=339) BASOPHILS RELATIVE PERCENT (BEAKER) (test 1 % cjtb=623) NEUTROPHILS ABSOLUTE COUNT (BEAKER) (test 5.25 K/ L 1.78-5.38 xvuz=180) LYMPHOCYTES ABSOLUTE COUNT (BEAKER) (test 0.90 K/ L 1.32-3.57 oycr=391) MONOCYTES ABSOLUTE COUNT (BEAKER) (test 0.92 K/ L 0.30-0.82 iaom=882) EOSINOPHILS ABSOLUTE COUNT (BEAKER) (test 0.29 K/ L 0.04-0.54 lkgl=432) BASOPHILS ABSOLUTE COUNT (BEAKER) (test 0.04 K/ L 0.01-0.08 dojn=127) IMMATURE GRANULOCYTES-RELATIVE PERCENT (BEAKER) 1 % 0-1 (test iwwl=7208) POCT-GLUCOSE [id number] 22:44:00 Test Item Value Reference Range Comments POC-GLUCOSE METER (BEAKER) 220 mg/dL 70-110 TESTED AT [address] (test rfus=9753) [place] [address] POCT-GLUCOSE [id number] 22:44:00 Test Item Value Reference Range Comments POC-GLUCOSE METER (BEAKER) 160 mg/dL 70-110 TESTED AT [address] (test wlxb=3523) [place] [id number] POCT-GLUCOSE [id number] 18:37:00 Test Item Value Reference Range Comments POC-GLUCOSE METER (BEAKER) 239 mg/dL 70-110 TESTED AT [address] (test ttkf=8312) [place] [address] [id number] 13:41:00 Test Item Value Reference Range Comments PARTIAL THROMBOPLASTIN TIME (BEAKER) (test 89.2 seconds 22.5-36.0 sbyh=722) 4 hours after the start of continuous infusion and 4 hours after any rate changePOCT-GLUCOSE [id number] 12:27:00 Test Item Value Reference Range Comments POC-GLUCOSE METER (BEAKER) 147 mg/dL 70-110 TESTED AT [facility] [address] [facility] (test fiab=9463) [facility] [address] [id number] 10:01:00 Test Item Value Reference Range Comments PARTIAL THROMBOPLASTIN TIME (BEAKER) (test 84.5 seconds 22.5-36.0 iede=759) 4 hours after the start of continuous infusion and 4 hours after any rate changePOCT-GLUCOSE [id number] 05:44:00 Test Item Value Reference Range Comments POC-GLUCOSE METER (BEAKER) 190 mg/dL 70-110 TESTED AT [address] (test aelu=7437) [facility] [address] COMPREHENSIVE METABOLIC [id number] 04:54:00 Test Item Value Reference Range Comments TOTAL PROTEIN (BEAKER) 5.2 gm/dL 6.0-8.3 (test upmn=019) ALBUMIN (BEAKER) (test 2.7 g/dL 3.5-5.0 zbek=0669) ALKALINE PHOSPHATASE 160 U/L 40-150 (BEAKER) (test qvzk=607) BILIRUBIN TOTAL (BEAKER) 1.2 mg/dL 0.2-1.2 (test aizn=679) SODIUM (BEAKER) (test 139 meq/L 136-145 ofzj=199) POTASSIUM (BEAKER) (test 4.5 meq/L 3.5-5.1 mzvw=745) CHLORIDE (BEAKER) (test 104 meq/L 98-107 nnpe=714) CO2 (BEAKER) (test 24 meq/L 22-29 krov=722) BLOOD UREA NITROGEN 32 mg/dL 7-21 (BEAKER) (test ltmt=924) CREATININE (BEAKER) (test 5.06 mg/dL 0.57-1.25 herz=288) GLUCOSE RANDOM (BEAKER) 177 mg/dL 70-105 (test lolg=682) CALCIUM (BEAKER) (test 8.9 mg/dL 8.4-10.2 bcmw=618) AST (SGOT) (BEAKER) (test 32 U/L 5-34 mnew=595) ALT (SGPT) (BEAKER) (test 37 U/L 6-55 abte=071) EGFR (BEAKER) (test 11 mL/min/1.73 sq m ESTIMATED GFR IS NOT wfmf=5645) ACCURATE CREATININE CLEARANCE IN PREDICTING GLOMERULAR FILTRATION RATE. ESTIMATED GFR IS NOT APPLICABLE FOR DIALYSIS PATIENTS. CBC W/PLT COUNT & AUTO [id number] 04:36:00 Test Item Value Reference Range Comments WHITE BLOOD CELL COUNT (BEAKER) (test ledu=843) 7.4 K/ L 3.5-10.5 RED BLOOD CELL COUNT (BEAKER) (test mgiz=770) 2.65 M/ L 4.63-6.08 HEMOGLOBIN (BEAKER) (test ewxl=031) 8.4 GM/DL 13.7-17.5 HEMATOCRIT (BEAKER) (test cctq=964) 25.8 % 40.1-51.0 MEAN CORPUSCULAR VOLUME (BEAKER) (test rqqx=515) 97.4 fL 79.0-92.2 MEAN CORPUSCULAR HEMOGLOBIN (BEAKER) (test 31.7 pg 25.7-32.2 nsyg=779) MEAN CORPUSCULAR HEMOGLOBIN CONC (BEAKER) (test 32.6 GM/DL 32.3-36.5 pnbu=640) RED CELL DISTRIBUTION WIDTH (BEAKER) (test 17.6 % 11.6-14.4 szmv=954) PLATELET COUNT (BEAKER) (test mtqv=766) 155 K/CU MM 150-450 MEAN PLATELET VOLUME (BEAKER) (test otoa=342) 11.1 fL 9.4-12.4 NUCLEATED RED BLOOD CELLS (BEAKER) (test 0 /100 WBC 0-0 ukqn=052) NEUTROPHILS RELATIVE PERCENT (BEAKER) (test 73 % trqi=436) LYMPHOCYTES RELATIVE PERCENT (BEAKER) (test 9 % agvz=030) MONOCYTES RELATIVE PERCENT (BEAKER) (test 14 % xcmp=277) EOSINOPHILS RELATIVE PERCENT (BEAKER) (test 3 % xbeh=468) BASOPHILS RELATIVE PERCENT (BEAKER) (test 1 % fqye=912) NEUTROPHILS ABSOLUTE COUNT (BEAKER) (test 5.42 K/ L 1.78-5.38 ansd=761) LYMPHOCYTES ABSOLUTE COUNT (BEAKER) (test 0.65 K/ L 1.32-3.57 krhs=159) MONOCYTES ABSOLUTE COUNT (BEAKER) (test 1.00 K/ L 0.30-0.82 smvk=114) EOSINOPHILS ABSOLUTE COUNT (BEAKER) (test 0.22 K/ L 0.04-0.54 akcw=281) BASOPHILS ABSOLUTE COUNT (BEAKER) (test 0.05 K/ L 0.01-0.08 ucol=113) IMMATURE GRANULOCYTES-RELATIVE PERCENT (BEAKER) 1 % 0-1 (test dxkr=0424) [id number] 04:33:00 Test Item Value Reference Range Comments PHOSPHORUS (BEAKER) (test cbkp=060) 3.7 mg/dL 2.3-4.7 [id number] 04:33:00 Test Item Value Reference Range Comments MAGNESIUM (BEAKER) (test idwt=521) 2.2 mg/dL 1.6-2.6 VANCOMYCIN LEVEL, [id number] 04:33:00 Test Item Value Reference Range Comments VANCOMYCIN RANDOM (BEAKER) (test eykd=793) 9.2 ug/mL Reference Range: No [id number] 04:23:00 Test Item Value Reference Range Comments PROTIME (BEAKER) (test rmpt=551) 17.1 seconds 11.9-14.2 INR (BEAKER) (test fsga=531) 1.5 <=5.9 PARTIAL THROMBOPLASTIN TIME (BEAKER) (test 50.1 seconds 22.5-36.0 adau=569) Effective 07/29/2018: PT Reference Range ChangeNew: 11.9-14.2 Previous: 11.7- 14.7RECOMMENDED COUMADIN/WARFARIN INR THERAPY RANGESSTANDARD DOSE: 2.0-3.0 Includes: PROPHYLAXIS for venous thrombosis, systemic embolization; TREATMENT for venous thrombosis and/or pulmonary embolus.HIGH RISK: Target INR is2.5-3.5 for patients wiht mechanical heart valves.RAD, CHEST, 1 VIEW, NON [id number] 03:59:00Reason for exam:->effusion vs atelectasisShould this be performed at the bedside?->YesFINAL REPORT CLINICAL INDICATION : Effusion versus atelectasis Comparison: 08/19/2018 The cardiomediastinal contours are stable. Central vascular congestion has slightly improved.Retrocardiac opacity may reflect some comminution of atelectasis and edema. Pneumonitis should be excluded clinically. There is no pneumothorax. A tunneled left IJ dialysis catheter has been placed. The tip overlies the azygos arch/SVC. Signed: Moreno Blandon MDReport Verified Date/Time: 08/20/2018 03:59: 43 Reading Location: [address] Reading Room [id number] 00:43:00 Test Item Value Reference Range Comments PARTIAL THROMBOPLASTIN TIME (BEAKER) (test 46.3 seconds 22.5-36.0 klei=628) 4 hours after the start of continuous infusion and 4 hours after any rate changePOCT-GLUCOSE [id number] 00:10:00 Test Item Value Reference Range Comments POC-GLUCOSE METER (BEAKER) 169 mg/dL 70-110 TESTED AT [facility] [address] [facility] (test vwvu=9435) [facility] [address] BLOOD CULTURE IDENTIFICATION [id number] 23:35:00 Test Item Value Reference Range Comments LISTERIA MONOCYTOGENES Not detected Not detected (test lueb=1525092) STAPHYLOCOCCUS (test Detected Not detected eweb=3028010) STAPHYLOCOCCUS AUREUS Detected Not detected Methicillin-susceptible S. (test ouup=4467033) aureus (MSSA)First-line therapy: Cefazolin or Oxacillin (Oxacillin preferred if BRISKET PULLER involvement) ID CONSULTATION REQUIREDStaphylococcus aureus DETECTEDMecA NOT DETECTED Reference Range: Not Detected STREPTOCOCCUS (test Not detected Not detected onbt=1158295) STREPTOCOCCUS AGALACTIAE Not detected Not detected (GROUP B) (test emsx=6809083) STREPTOCOCCUS PNEUMONIAE Not detected Not detected (test vrdh=9108110) STREPTOCOCCUS PYOGENES Not detected Not detected (GROUP A) (test knex=4718615) ACINETOBACTER BAUMANNII Not detected Not detected (test lnug=2102729) HAEMOPHILUS INFLUENZAE Not detected Not detected (test thsg=0490966) NEISSERIA MENINGITIDIS Not detected Not detected (test cpgu=9350903) ENTEROBACTERIACEAE (test Not detected Not detected ljsp=7798306) ENTEROBACTER CLOACOE Not detected Not detected COMPLEX (test iqbw=4557483) KLEBSIELLA OXYTOCA (test Not detected Not detected xrff=3621064) KLEBSIELLA PNEUMONIAE Not detected Not detected (test mzrn=8802) PROTEUS (test Not detected Not detected ejiu=5645309) SERRATIA MARCESCENS (test Not detected Not detected wors=6269755) MITA ALBICANS (test Not detected Not detected ridb=8150694) MITA GLABRATA (test Not detected Not detected arpn=1754651) MITA KRUSEI (test Not detected Not detected fnnk=4936348) MITA PARAPSILOSIS (test Not detected Not detected ofll=8731552) MITA TROPICALIS (test Not detected Not detected pbws=8372453) ESCHERICHIA COLI (test Not detected Not detected otqk=5026986) METHICILLIN-RESISTANCE Not detected Not detected GENE (test fofw=2369475) VANCOMYCIN-RESISTANCE GENE Not detected (test kjhz=8641709) CARBAPENEM-RESISTANCE GENE Not detected (test wfhs=6284318) ENTEROCOCCUS-BEAKER (test Not detected Not detected ztge=2260519) PSEUDOMONAS Not detected Not detected AERUGINOSA-BEAKER (test yqds=6976569) Other bacteria and resistance markers not targeted by this PCR panel cannot be excluded; therefore clinical correlation and follow up of serology, culture results, and other molecular studies is required. The results are not intended to be used as the sole means for clinical diagnosis or patient management decisions. This sample was tested at the [facility] using the [employer] Blood Culture ID Panel. It is FDA cleared and has been verified and approved by the [facility] for clinical use. This laboratory is CLIA-certified and College ofAmerican Pathologists (CAP)-accredited to perform high complexity testing.[id number] 21:01:00 Test Item Value Reference Range Comments PARTIAL THROMBOPLASTIN TIME (BEAKER) (test 43.2 seconds 22.5-36.0 kowc=354) 4 hours after the start of continuous infusion and 4 hours after any rate changePOCT-GLUCOSE [id number] 17:58:00 Test Item Value Reference Range Comments POC-GLUCOSE METER (AKER) 127 mg/dL 70-110 TESTED AT [facility] [address] (test sdjz=7377) [facility] [address] [id number] 15:30:00 Test Item Value Reference Range Comments PARTIAL THROMBOPLASTIN TIME (BEAKER) (test 33.1 seconds 22.5-36.0 phtf=548) Draw baseline aPTT prior to infusionCBC (HEMOGRAM ONLY)2018-08-19 15:22:00 Test Item Value Reference Range Comments WHITE BLOOD CELL COUNT (BEAKER) (test pvgn=019) 6.9 K/ L 3.5-10.5 RED BLOOD CELL COUNT (BEAKER) (test zrlp=344) 2.87 M/ L 4.63-6.08 HEMOGLOBIN (BEAKER) (test sozo=769) 9.0 GM/DL 13.7-17.5 HEMATOCRIT (BEAKER) (test ohyt=768) 27.1 % 40.1-51.0 MEAN CORPUSCULAR VOLUME (BEAKER) (test bgrs=996) 94.4 fL 79.0-92.2 MEAN CORPUSCULAR HEMOGLOBIN (BEAKER) (test 31.4 pg 25.7-32.2 hmku=197) MEAN CORPUSCULAR HEMOGLOBIN CONC (BEAKER) (test 33.2 GM/DL 32.3-36.5 vjlm=077) RED CELL DISTRIBUTION WIDTH (BEAKER) (test 17.2 % 11.6-14.4 kuhn=918) PLATELET COUNT (BEAKER) (test xlgm=939) 145 K/CU MM 150-450 MEAN PLATELET VOLUME (BEAKER) (test fira=005) 10.2 fL 9.4-12.4 NUCLEATED RED BLOOD CELLS (BEAKER) (test 0 /100 WBC 0-0 ddwi=542) ANG, TUNNELED CATHETER [id number] 14:44:00Reason for exam:->ESRD requiring dialysis and malfuctioning left fistulaFINAL REPORT The Tunneled dialysis catheter insertion: Pertinent clinical information: Requiring dialysis access Modality: Sonography and fluoroscopy Conscious Sedation: No sedationAntibiotics: The patient is currently on antibiotics Anesthesia: Two percent Lidocaine injected subcutaneously at the insertion site and tunnel. Approach: Left internal jugular vein Fluoro time ( inminutes) and number of images: 10.9 minutes. Five images For maximum sterile barrier protection a mask, cap, sterile gloves, sterile drape, sterile gown, and a cutaneous antiseptic was utilized. Technique: After informed written consent was obtained, the patient was prepped and draped in the usual sterile manner. Access was obtained using sonographic guidance. Ultrasound was utilized to decrease the risk of hematoma and avoid unnecessary punctures. Ultrasound documented the vein to be patent. The left internal jugular vein was catheterized utilizing ultrasound guidance and the localization image was saved to PACS. A guide wire was advanced centrally. A 23 cm Duraflow catheter was advancedwith its distal tip terminating in the superior right atrium as documented by fluoroscopy. The ports were flushed and aspirated easily following placement. A subcutaneous tunnel was created in the left anterior chest wall by blunt dissection. The catheter was sutured to the skin to secure its placement. A small jugular incision site was closed using 2.0 chromic suture. Vital signs were monitoredthroughout the procedure by a nurse, and remained stable. The patient tolerated the procedure well and left the department in the same condition. Results: Spot radiograph of the chest demonstrates the new dialysis catheter to lie in the expected position with its tip overlying the superior right atrium. Initially an AV fistula declot was ordered. 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 The guidewire traverses pseudoaneurysm and the skin surface. The stromal lysis was not performed. A covered stent was considered on castano given the proximity to the skin surface. 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 The referring vascular surgeon was paged. At thetime the surgeon was scrubbed and in the operating room. He is vascular surgery fellow was made aware. Impression: Successful, uncomplicated placement of a left internal jugular tunneled dialysis catheter using ultrasound. Fluoroscopy guidance was also utilized . Signed: Mona Wick Verified Date/Time: 14:44:44 Reading Location: [place] [address] Angio Body Reading Room POCT-GLUCOSE [id number] 11:54:00 Test Item Value Reference Range Comments POC-GLUCOSE METER (BEAKER) 165 mg/dL 70-110 TESTED AT [address] (test ugzg=6987) [facility] [address] RAD, CHEST, 1 VIEW, NON [id number] 08:21:00Reason for exam:->effusion vs atelectasisShould this be performed at the bedside?->YesFINAL REPORT Comparison: 08/18/2018 TECHNIQUE: Single view of the chest FINDINGS: There is mild vascular congestion. There may be trace pleural effusions. No gross new lung parenchymal changes. Cardiac silhouette is enlarged. A stent projects over the left upper chest. Signed: Franklin Stuart MDReport Verified Date/Time: 08/19/2018 08:21:06 Reading Location: [facility] Radiology ReadingRoom Electronically signed by: FRANKLIN STUART M.D. on 08/19 08:21 AMPOCT-GLUCOSE [id number] 06:30:00 Test Item Value Reference Range Comments POC-GLUCOSE METER (BEAKER) 162 mg/dL 70-110 TESTED AT [facility] [address] [facility] (test samu=7618) [facility] [address] POCT-GLUCOSE [id number] 05:50:00 Test Item Value Reference Range Comments POC-GLUCOSE METER (BEAKER) 157 mg/dL 70-110 TESTED AT [facility] [address] [facility] (test yzhk=0169) [facility] [address] COMPREHENSIVE METABOLIC [id number] 05:23:00 Test Item Value Reference Range Comments TOTAL PROTEIN (BEAKER) 5.4 gm/dL 6.0-8.3 (test qlxt=905) ALBUMIN (BEAKER) (test 2.8 g/dL 3.5-5.0 rrlk=6440) ALKALINE PHOSPHATASE 172 U/L 40-150 (BEAKER) (test ajxv=951) BILIRUBIN TOTAL (BEAKER) 1.1 mg/dL 0.2-1.2 (test rmzc=962) SODIUM (BEAKER) (test 129 meq/L 136-145 dszw=888) POTASSIUM (BEAKER) (test 4.7 meq/L 3.5-5.1 pbiy=126) CHLORIDE (BEAKER) (test 96 meq/L 98-107 urad=786) CO2 (BEAKER) (test 24 meq/L 22-29 beou=179) BLOOD UREA NITROGEN 67 mg/dL 7-21 (BEAKER) (test jwmo=392) CREATININE (BEAKER) (test 8.22 mg/dL 0.57-1.25 ndyu=803) GLUCOSE RANDOM (BEAKER) 156 mg/dL 70-105 (test zpno=146) CALCIUM (BEAKER) (test 8.5 mg/dL 8.4-10.2 zbnb=132) AST (SGOT) (BEAKER) (test 29 U/L 5-34 fgef=872) ALT (SGPT) (BEAKER) (test 36 U/L 6-55 elco=190) EGFR (BEAKER) (test 6 mL/min/1.73 sq m ESTIMATED GFR IS NOT fuom=4696) ACCURATE CREATININE CLEARANCE IN PREDICTING GLOMERULAR FILTRATION RATE. ESTIMATED GFR IS NOT APPLICABLE FOR DIALYSIS PATIENTS. [id number] 05:22:00 Test Item Value Reference Range Comments PHOSPHORUS (BEAKER) (test ngiz=126) 4.7 mg/dL 2.3-4.7 [id number] 05:22:00 Test Item Value Reference Range Comments MAGNESIUM (BEAKER) (test tifj=546) 2.4 mg/dL 1.6-2.6 [id number] 05:19:00 Test Item Value Reference Range Comments PROTIME (BEAKER) (test ozhr=245) 15.3 seconds 11.9-14.2 INR (BEAKER) (test qeac=746) 1.3 <=5.9 PARTIAL THROMBOPLASTIN TIME (BEAKER) (test 34.9 seconds 22.5-36.0 avzs=692) Effective 07/29/2018: PT Reference Range ChangeNew: 11.9-14.2 Previous: 11.7- 14.7RECOMMENDED COUMADIN/WARFARIN INR THERAPY RANGESSTANDARD DOSE: 2.0-3.0 Includes: PROPHYLAXIS for venous thrombosis, systemic embolization; TREATMENT for venous thrombosis and/or pulmonary embolus.HIGH RISK: Target INR is2.5-3.5 for patients wiht mechanical heart valves.[id number] 05:02:00 Test Item Value Reference Range Comments AMMONIA (BEAKER) (test gkhs=098) 35 mol/L 18-72 CBC W/PLT COUNT & AUTO [id number] 04:55:00 Test Item Value Reference Range Comments WHITE BLOOD CELL COUNT (BEAKER) (test zfxw=038) 7.9 K/ L 3.5-10.5 RED BLOOD CELL COUNT (BEAKER) (test dwpi=905) 2.84 M/ L 4.63-6.08 HEMOGLOBIN (BEAKER) (test qqvz=940) 8.9 GM/DL 13.7-17.5 HEMATOCRIT (BEAKER) (test wjua=859) 27.6 % 40.1-51.0 MEAN CORPUSCULAR VOLUME (BEAKER) (test dyuq=127) 97.2 fL 79.0-92.2 MEAN CORPUSCULAR HEMOGLOBIN (BEAKER) (test 31.3 pg 25.7-32.2 giae=358) MEAN CORPUSCULAR HEMOGLOBIN CONC (BEAKER) (test 32.2 GM/DL 32.3-36.5 cigi=677) RED CELL DISTRIBUTION WIDTH (BEAKER) (test 17.6 % 11.6-14.4 ufmy=829) PLATELET COUNT (BEAKER) (test nigp=296) 169 K/CU MM 150-450 MEAN PLATELET VOLUME (BEAKER) (test uqnq=311) 11.0 fL 9.4-12.4 NUCLEATED RED BLOOD CELLS (BEAKER) (test 0 /100 WBC 0-0 chli=670) NEUTROPHILS RELATIVE PERCENT (BEAKER) (test 70 % okpo=159) LYMPHOCYTES RELATIVE PERCENT (BEAKER) (test 10 % utbi=146) MONOCYTES RELATIVE PERCENT (BEAKER) (test 13 % nitk=726) EOSINOPHILS RELATIVE PERCENT (BEAKER) (test 5 % nwri=750) BASOPHILS RELATIVE PERCENT (BEAKER) (test 1 % wzll=447) NEUTROPHILS ABSOLUTE COUNT (BEAKER) (test 5.50 K/ L 1.78-5.38 yuzg=049) LYMPHOCYTES ABSOLUTE COUNT (BEAKER) (test 0.82 K/ L 1.32-3.57 ydpz=534) MONOCYTES ABSOLUTE COUNT (BEAKER) (test 1.06 K/ L 0.30-0.82 kute=418) EOSINOPHILS ABSOLUTE COUNT (BEAKER) (test 0.36 K/ L 0.04-0.54 zvlh=818) BASOPHILS ABSOLUTE COUNT (BEAKER) (test 0.08 K/ L 0.01-0.08 mpuo=542) IMMATURE GRANULOCYTES-RELATIVE PERCENT (BEAKER) 1 % 0-1 (test hgav=3831) POCT-GLUCOSE [id number] 21:46:00 Test Item Value Reference Range Comments POC-GLUCOSE METER (BEAKER) 167 mg/dL 70-110 TESTED AT [facility] [address] [facility] (test dgru=9519) [facility] [address] BASIC METABOLIC [id number] 19:16:00 Test Item Value Reference Range Comments SODIUM (BEAKER) (test 132 meq/L 136-145 otrl=346) POTASSIUM (BEAKER) (test 4.7 meq/L 3.5-5.1 obry=586) CHLORIDE (BEAKER) (test 97 meq/L 98-107 xxva=382) CO2 (BEAKER) (test 24 meq/L 22-29 sybr=699) BLOOD UREA NITROGEN 61 mg/dL 7-21 (BEAKER) (test regv=443) CREATININE (BEAKER) (test 7.73 mg/dL 0.57-1.25 qofg=102) GLUCOSE RANDOM (BEAKER) 144 mg/dL 70-105 (test jcfq=286) CALCIUM (BEAKER) (test 9.2 mg/dL 8.4-10.2 sodx=564) EGFR (BEAKER) (test 7 mL/min/1.73 sq m ESTIMATED GFR IS NOT pfug=4389) ACCURATE CREATININE CLEARANCE IN PREDICTING GLOMERULAR FILTRATION RATE. ESTIMATED GFR IS NOT APPLICABLE FOR DIALYSIS PATIENTS. POCT-GLUCOSE [id number] 16:57:00 Test Item Value Reference Range Comments POC-GLUCOSE METER (BEAKER) 118 mg/dL 70-110 TESTED AT [facility] [address] [facility] (test piez=7326) [facility] [address] RAD, CHEST, 1 VIEW, NON [id number] 16:42:00Post-intubationReason for exam:-& gt;SOBShould this be performed at the bedside?->YesFINAL REPORT History: Shortness of breath. FINDINGS: Compared with August 08, 2018, the heart and mediastinum are stable. As before, the heart is mildly enlarged. Left internal jugular central venous catheter has been removed. No pneumothorax. Lung lines remain low. Lungs are otherwise clear. No edema, focal consolidation or visible effusions. Bones are unremarkable. IMPRESSION: 1. Mild cardiomegaly. No acute cardiopulmonary abnormalities. Signed: Gosia Nick Verified Date/Time: 08/18/2018 16:42:09 Reading Location: [address] Radiology Reading Room HEMOGLOBIN [id number] 13:45:00 Test Item Value Reference Range Comments HEMOGLOBIN A1C (BEAKER) (test sqfb=247) 5.5 % 4.3-6.1 COMPREHENSIVE METABOLIC [id number] 13:03:00 Test Item Value Reference Range Comments TOTAL PROTEIN (BEAKER) 6.9 gm/dL 6.0-8.3 Specimen moderately (test mjii=034) hemolyzed ALBUMIN (BEAKER) (test 3.2 g/dL 3.5-5.0 Specimen moderately zjql=4782) hemolyzed ALKALINE PHOSPHATASE 149 U/L 40-150 (BEAKER) (test zhys=148) BILIRUBIN TOTAL (BEAKER) 1.2 mg/dL 0.2-1.2 Specimen moderately (test yywp=777) hemolyzed SODIUM (BEAKER) (test 130 meq/L 136-145 twdq=424) POTASSIUM (BEAKER) (test 5.0 meq/L 3.5-5.1 Specimen moderately ylqx=422) hemolyzed CHLORIDE (BEAKER) (test 96 meq/L 98-107 azom=855) CO2 (BEAKER) (test 25 meq/L 22-29 znuy=226) BLOOD UREA NITROGEN 57 mg/dL 7-21 (BEAKER) (test hgrz=597) CREATININE (BEAKER) (test 7.51 mg/dL 0.57-1.25 Specimen moderately neof=208) hemolyzed GLUCOSE RANDOM (BEAKER) 91 mg/dL 70-105 (test timj=486) CALCIUM (BEAKER) (test 9.2 mg/dL 8.4-10.2 gmoe=665) AST (SGOT) (BEAKER) (test 46 U/L 5-34 Specimen moderately vomn=993) hemolyzed ALT (SGPT) (BEAKER) (test 46 U/L 6-55 Specimen moderately bbuu=585) hemolyzed EGFR (BEAKER) (test 7 mL/min/1.73 sq m ESTIMATED GFR IS NOT lgab=8098) ACCURATE CREATININE CLEARANCE IN PREDICTING GLOMERULAR FILTRATION RATE. ESTIMATED GFR IS NOT APPLICABLE FOR DIALYSIS PATIENTS. [id number] 12:59:00 Test Item Value Reference Range Comments MAGNESIUM (BEAKER) (test 2.8 mg/dL 1.6-2.6 Specimen moderately hemolyzed abla=604) [id number] 12:59:00 Test Item Value Reference Range Comments PHOSPHORUS (BEAKER) (test 4.2 mg/dL 2.3-4.7 Specimen moderately hemolyzed msrh=463) [id number] 12:42:00 Test Item Value Reference Range Comments PROTIME (BEAKER) (test lxiu=968) 19.1 seconds 11.9-14.2 INR (BEAKER) (test xnhq=446) 1.7 <=5.9 PARTIAL THROMBOPLASTIN TIME (BEAKER) (test 36.7 seconds 22.5-36.0 rcoe=975) Effective 07/29/2018: PT Reference Range ChangeNew: 11.9-14.2 Previous: 11.7- 14.7RECOMMENDED COUMADIN/WARFARIN INR THERAPY RANGESSTANDARD DOSE: 2.0-3.0 Includes: PROPHYLAXIS for venous thrombosis, systemic embolization; TREATMENT for venous thrombosis and/or pulmonary embolus.HIGH RISK: Target INR is2.5-3.5 for patients wiht mechanical heart valves.PROTHROMBIN [id number] 12:41: 00 Test Item Value Reference Range Comments PROTIME (BEAKER) (test lhgr=884) 19.1 seconds 11.9-14.2 INR (BEAKER) (test xcjx=565) 1.7 <=5.9 Effective 07/29/2018: PT Reference Range ChangeNew: 11.9-14.2 Previous: 11.7- 14.7RECOMMENDED COUMADIN/WARFARIN INR THERAPY RANGESSTANDARD DOSE: 2.0-3.0 Includes: PROPHYLAXIS for venous thrombosis, systemic embolization; TREATMENT for venous thrombosis and/or pulmonary embolus.HIGH RISK: Target INR is2.5-3.5 for patients wiht mechanical heart valves.CBC W/PLT COUNT & AUTO [id number] 12:24:00 Test Item Value Reference Range Comments WHITE BLOOD CELL COUNT (BEAKER) (test iyhl=944) 9.1 K/ L 3.5-10.5 RED BLOOD CELL COUNT (BEAKER) (test ufet=580) 3.40 M/ L 4.63-6.08 HEMOGLOBIN (BEAKER) (test odcw=715) 10.6 GM/DL 13.7-17.5 HEMATOCRIT (BEAKER) (test nxuh=940) 33.5 % 40.1-51.0 MEAN CORPUSCULAR VOLUME (BEAKER) (test ccqs=923) 98.5 fL 79.0-92.2 MEAN CORPUSCULAR HEMOGLOBIN (BEAKER) (test 31.2 pg 25.7-32.2 xpjb=171) MEAN CORPUSCULAR HEMOGLOBIN CONC (BEAKER) (test 31.6 GM/DL 32.3-36.5 rhat=919) RED CELL DISTRIBUTION WIDTH (BEAKER) (test 17.4 % 11.6-14.4 abhw=639) PLATELET COUNT (BEAKER) (test gova=042) 200 K/CU MM 150-450 MEAN PLATELET VOLUME (BEAKER) (test lbbl=898) 11.0 fL 9.4-12.4 NUCLEATED RED BLOOD CELLS (BEAKER) (test 0 /100 WBC 0-0 xjid=792) NEUTROPHILS RELATIVE PERCENT (BEAKER) (test 76 % kwqo=533) LYMPHOCYTES RELATIVE PERCENT (BEAKER) (test 9 % uukl=376) MONOCYTES RELATIVE PERCENT (BEAKER) (test 10 % jmuk=769) EOSINOPHILS RELATIVE PERCENT (BEAKER) (test 4 % vlza=157) BASOPHILS RELATIVE PERCENT (BEAKER) (test 1 % semf=188) NEUTROPHILS ABSOLUTE COUNT (BEAKER) (test 6.95 K/ L 1.78-5.38 zkmm=963) LYMPHOCYTES ABSOLUTE COUNT (BEAKER) (test 0.79 K/ L 1.32-3.57 pnrc=344) MONOCYTES ABSOLUTE COUNT (BEAKER) (test 0.88 K/ L 0.30-0.82 qrtu=653) EOSINOPHILS ABSOLUTE COUNT (BEAKER) (test 0.36 K/ L 0.04-0.54 zcwf=349) BASOPHILS ABSOLUTE COUNT (BEAKER) (test 0.07 K/ L 0.01-0.08 swak=553) IMMATURE GRANULOCYTES-RELATIVE PERCENT (BEAKER) 1 % 0-1 (test lxzo=2816) POCT-GLUCOSE [id number] 12:56:00 Test Item Value Reference Range Comments POC-GLUCOSE METER (BEAKER) 131 mg/dL 70-110 TESTED AT [address] (test knbh=6142) [place] [id number] POCT-GLUCOSE [id number] 07:42:00 Test Item Value Reference Range Comments POC-GLUCOSE METER (BEAKER) 132 mg/dL 70-110 TESTED AT [address] (test tqps=5229) [place] [id number] BASIC METABOLIC [id number] 06:40:00 Test Item Value Reference Range Comments SODIUM (BEAKER) (test 137 meq/L 136-145 ehri=183) POTASSIUM (BEAKER) (test 4.4 meq/L 3.5-5.1 ehki=260) CHLORIDE (BEAKER) (test 99 meq/L 98-107 kaxt=265) CO2 (BEAKER) (test 29 meq/L 22-29 rpoq=605) BLOOD UREA NITROGEN 31 mg/dL 7-21 (BEAKER) (test tuan=578) CREATININE (BEAKER) (test 5.05 mg/dL 0.57-1.25 tdgf=075) GLUCOSE RANDOM (BEAKER) 146 mg/dL 70-105 (test gbwj=725) CALCIUM (BEAKER) (test 9.0 mg/dL 8.4-10.2 cnnd=199) EGFR (BEAKER) (test 11 mL/min/1.73 sq m ESTIMATED GFR IS NOT qmmj=6982) ACCURATE CREATININE CLEARANCE IN PREDICTING GLOMERULAR FILTRATION RATE. ESTIMATED GFR IS NOT APPLICABLE FOR DIALYSIS PATIENTS. [id number] 06:39:00 Test Item Value Reference Range Comments PHOSPHORUS (BEAKER) (test ytlg=082) 3.7 mg/dL 2.3-4.7 [id number] 06:39:00 Test Item Value Reference Range Comments MAGNESIUM (BEAKER) (test euiq=959) 2.6 mg/dL 1.6-2.6 CBC W/PLT COUNT & AUTO [id number] 06:38:00 Test Item Value Reference Range Comments WHITE BLOOD CELL COUNT (BEAKER) (test uegd=368) 9.4 K/ L 3.5-10.5 RED BLOOD CELL COUNT (BEAKER) (test qcbd=830) 3.25 M/ L 4.63-6.08 HEMOGLOBIN (BEAKER) (test pcoi=896) 10.2 GM/DL 13.7-17.5 HEMATOCRIT (BEAKER) (test ucfh=370) 33.0 % 40.1-51.0 MEAN CORPUSCULAR VOLUME (BEAKER) (test rmaw=194) 101.5 fL 79.0-92.2 MEAN CORPUSCULAR HEMOGLOBIN (BEAKER) (test 31.4 pg 25.7-32.2 zeln=764) MEAN CORPUSCULAR HEMOGLOBIN CONC (BEAKER) (test 30.9 GM/DL 32.3-36.5 ayjv=530) RED CELL DISTRIBUTION WIDTH (BEAKER) (test 18.5 % 11.6-14.4 wxqw=136) PLATELET COUNT (BEAKER) (test zcvh=996) 202 K/CU MM 150-450 MEAN PLATELET VOLUME (BEAKER) (test eerd=838) 10.8 fL 9.4-12.4 NUCLEATED RED BLOOD CELLS (BEAKER) (test 0 /100 WBC 0-0 affm=741) NEUTROPHILS RELATIVE PERCENT (BEAKER) (test 81 % oywm=766) LYMPHOCYTES RELATIVE PERCENT (BEAKER) (test 7 % yyjf=701) MONOCYTES RELATIVE PERCENT (BEAKER) (test 8 % qeoi=370) EOSINOPHILS RELATIVE PERCENT (BEAKER) (test 2 % qguf=351) BASOPHILS RELATIVE PERCENT (BEAKER) (test 1 % acic=750) NEUTROPHILS ABSOLUTE COUNT (BEAKER) (test 7.63 K/ L 1.78-5.38 chhk=907) LYMPHOCYTES ABSOLUTE COUNT (BEAKER) (test 0.70 K/ L 1.32-3.57 nfku=259) MONOCYTES ABSOLUTE COUNT (BEAKER) (test 0.78 K/ L 0.30-0.82 qubc=303) EOSINOPHILS ABSOLUTE COUNT (BEAKER) (test 0.18 K/ L 0.04-0.54 wkfo=304) BASOPHILS ABSOLUTE COUNT (BEAKER) (test 0.06 K/ L 0.01-0.08 pymi=779) IMMATURE GRANULOCYTES-RELATIVE PERCENT (BEAKER) 1 % 0-1 (test mdgb=0258) PROTHROMBIN [id number] 06:25:00 Test Item Value Reference Range Comments PROTIME (BEAKER) (test iuap=680) 18.4 seconds 11.9-14.2 INR (BEAKER) (test nfmy=456) 1.6 <=5.9 Effective 07/29/2018: PT Reference Range ChangeNew: 11.9-14.2 Previous: 11.7- 14.7RECOMMENDED COUMADIN/WARFARIN INR THERAPY RANGESSTANDARD DOSE: 2.0-3.0 Includes: PROPHYLAXIS for venous thrombosis, systemic embolization; TREATMENT for venous thrombosis and/or pulmonary embolus.HIGH RISK: Target INR is2.5-3.5 for patients wiht mechanical heart valves.While on warfarin.POCT-GLUCOSE [id number] 21:17:00 Test Item Value Reference Range Comments POC-GLUCOSE METER (BEAKER) 143 mg/dL 70-110 TESTED AT [address] (test fpnf=7484) [facility] [address] POCT-GLUCOSE [id number] 18:22:00 Test Item Value Reference Range Comments POC-GLUCOSE METER (BEAKER) 67 mg/dL 70-110 TESTED AT [address] (test btzo=0433) [facility] [address] POCT-GLUCOSE [id number] 12:29:00 Test Item Value Reference Range Comments POC-GLUCOSE METER (BEAKER) 154 mg/dL 70-110 TESTED AT [address] (test qgvf=8505) [facility] [address] POCT-GLUCOSE [id number] 07:50:00 Test Item Value Reference Range Comments POC-GLUCOSE METER (BEAKER) 107 mg/dL 70-110 TESTED AT [address] (test jtun=9595) [facility] [address] BASIC METABOLIC [id number] 07:03:00 Test Item Value Reference Range Comments SODIUM (BEAKER) (test 130 meq/L 136-145 huqz=462) POTASSIUM (BEAKER) (test 4.5 meq/L 3.5-5.1 suqf=017) CHLORIDE (BEAKER) (test 95 meq/L 98-107 dlgk=621) CO2 (BEAKER) (test 25 meq/L 22-29 gegz=182) BLOOD UREA NITROGEN 45 mg/dL 7-21 (BEAKER) (test zwtg=932) CREATININE (BEAKER) (test 6.26 mg/dL 0.57-1.25 jvqo=016) GLUCOSE RANDOM (BEAKER) 100 mg/dL 70-105 (test ginv=773) CALCIUM (BEAKER) (test 9.2 mg/dL 8.4-10.2 urvc=216) EGFR (BEAKER) (test 9 mL/min/1.73 sq m ESTIMATED GFR IS NOT oyud=5999) ACCURATE CREATININE CLEARANCE IN PREDICTING GLOMERULAR FILTRATION RATE. ESTIMATED GFR IS NOT APPLICABLE FOR DIALYSIS PATIENTS. [id number] 07:01:00 Test Item Value Reference Range Comments PHOSPHORUS (BEAKER) (test mvmj=260) 4.4 mg/dL 2.3-4.7 [id number] 07:01:00 Test Item Value Reference Range Comments MAGNESIUM (BEAKER) (test zicl=056) 2.8 mg/dL 1.6-2.6 [id number] 06:43:00 Test Item Value Reference Range Comments PARTIAL THROMBOPLASTIN TIME (BEAKER) (test 89.2 seconds 22.5-36.0 baua=533) 4 hours after the start of continuous infusion and 4 hours after any rate changeWhile on warfarin.PROTHROMBIN [id number] 06:41:00 Test Item Value Reference Range Comments PROTIME (BEAKER) (test bvzy=046) 21.2 seconds 11.9-14.2 INR (BEAKER) (test tauq=146) 2.0 <=5.9 Effective 07/29/2018: PT Reference Range ChangeNew: 11.9-14.2 Previous: 11.7- 14.7RECOMMENDED COUMADIN/WARFARIN INR THERAPY RANGESSTANDARD DOSE: 2.0-3.0 Includes: PROPHYLAXIS for venous thrombosis, systemic embolization; TREATMENT for venous thrombosis and/or pulmonary embolus.HIGH RISK: Target INR is2.5-3.5 for patients wiht mechanical heart valves.4 hours after the start of continuous infusion and4 hours after any rate changeWhile on warfarin.CBC W/PLT COUNT &amp ; AUTO [id number] 06:38:00 Test Item Value Reference Range Comments WHITE BLOOD CELL COUNT (BEAKER) (test welp=231) 10.7 K/ L 3.5-10.5 RED BLOOD CELL COUNT (BEAKER) (test jjij=417) 3.21 M/ L 4.63-6.08 HEMOGLOBIN (BEAKER) (test eefp=810) 10.1 GM/DL 13.7-17.5 HEMATOCRIT (BEAKER) (test yujq=106) 31.9 % 40.1-51.0 MEAN CORPUSCULAR VOLUME (BEAKER) (test wqdp=792) 99.4 fL 79.0-92.2 MEAN CORPUSCULAR HEMOGLOBIN (BEAKER) (test 31.5 pg 25.7-32.2 gonp=044) MEAN CORPUSCULAR HEMOGLOBIN CONC (BEAKER) (test 31.7 GM/DL 32.3-36.5 cwhj=498) RED CELL DISTRIBUTION WIDTH (BEAKER) (test 18.2 % 11.6-14.4 zdbw=362) PLATELET COUNT (BEAKER) (test rtgo=858) 205 K/CU MM 150-450 MEAN PLATELET VOLUME (BEAKER) (test ndqw=797) 11.0 fL 9.4-12.4 NUCLEATED RED BLOOD CELLS (BEAKER) (test 0 /100 WBC 0-0 zcyv=878) NEUTROPHILS RELATIVE PERCENT (BEAKER) (test 81 % hgtc=050) LYMPHOCYTES RELATIVE PERCENT (BEAKER) (test 8 % hyta=115) MONOCYTES RELATIVE PERCENT (BEAKER) (test 8 % alxk=278) EOSINOPHILS RELATIVE PERCENT (BEAKER) (test 2 % uyxe=417) BASOPHILS RELATIVE PERCENT (BEAKER) (test 1 % jdmi=156) NEUTROPHILS ABSOLUTE COUNT (BEAKER) (test 8.71 K/ L 1.78-5.38 vbmd=352) LYMPHOCYTES ABSOLUTE COUNT (BEAKER) (test 0.83 K/ L 1.32-3.57 mvxj=965) MONOCYTES ABSOLUTE COUNT (BEAKER) (test 0.84 K/ L 0.30-0.82 ydps=586) EOSINOPHILS ABSOLUTE COUNT (BEAKER) (test 0.20 K/ L 0.04-0.54 trlc=757) BASOPHILS ABSOLUTE COUNT (BEAKER) (test 0.05 K/ L 0.01-0.08 nxpl=549) IMMATURE GRANULOCYTES-RELATIVE PERCENT (BEAKER) 1 % 0-1 (test pjix=9806) POCT-GLUCOSE [id number] 21:28:00 Test Item Value Reference Range Comments POC-GLUCOSE METER (BEAKER) 176 mg/dL 70-110 TESTED AT [address] (test gjiq=0442) [facility] [address] POCT-GLUCOSE [id number] 17:49:00 Test Item Value Reference Range Comments POC-GLUCOSE METER (BEAKER) 131 mg/dL 70-110 TESTED AT [address] (test uokj=1243) [facility] [address] POCT-GLUCOSE [id number] 12:14:00 Test Item Value Reference Range Comments POC-GLUCOSE METER (BEAKER) 189 mg/dL 70-110 TESTED AT [address] (test xiec=7518) [facility] [address] [id number] 09:14:00 Test Item Value Reference Range Comments PHOSPHORUS (BEAKER) (test lvtl=162) 3.7 mg/dL 2.3-4.7 [id number] 09:14:00 Test Item Value Reference Range Comments MAGNESIUM (BEAKER) (test jdqp=950) 2.7 mg/dL 1.6-2.6 BASIC METABOLIC [id number] 09:14:00 Test Item Value Reference Range Comments SODIUM (BEAKER) (test 130 meq/L 136-145 bheb=169) POTASSIUM (BEAKER) (test 3.9 meq/L 3.5-5.1 eviq=337) CHLORIDE (BEAKER) (test 94 meq/L 98-107 psvk=300) CO2 (BEAKER) (test 29 meq/L 22-29 ring=197) BLOOD UREA NITROGEN 36 mg/dL 7-21 (BEAKER) (test pfcm=573) CREATININE (BEAKER) (test 5.45 mg/dL 0.57-1.25 rxgo=203) GLUCOSE RANDOM (BEAKER) 127 mg/dL 70-105 (test nxmq=550) CALCIUM (BEAKER) (test 8.7 mg/dL 8.4-10.2 iltj=418) EGFR (BEAKER) (test 10 mL/min/1.73 sq m ESTIMATED GFR IS NOT fzze=8236) ACCURATE CREATININE CLEARANCE IN PREDICTING GLOMERULAR FILTRATION RATE. ESTIMATED GFR IS NOT APPLICABLE FOR DIALYSIS PATIENTS. Specimen slightly ictericPOCT-GLUCOSE [id number] 08:55:00 Test Item Value Reference Range Comments POC-GLUCOSE METER (BEAKER) 139 mg/dL 70-110 TESTED AT [facility] [address] [facility] (test zdvn=4451) [facility] [address] CBC W/PLT COUNT & AUTO [id number] 06:21:00 Test Item Value Reference Range Comments WHITE BLOOD CELL COUNT (BEAKER) (test fnlr=537) 9.9 K/ L 3.5-10.5 RED BLOOD CELL COUNT (BEAKER) (test tqma=709) 3.18 M/ L 4.63-6.08 HEMOGLOBIN (BEAKER) (test mrnl=914) 10.0 GM/DL 13.7-17.5 HEMATOCRIT (BEAKER) (test efoa=463) 32.4 % 40.1-51.0 MEAN CORPUSCULAR VOLUME (BEAKER) (test tifl=693) 101.9 fL 79.0-92.2 MEAN CORPUSCULAR HEMOGLOBIN (BEAKER) (test 31.4 pg 25.7-32.2 iued=128) MEAN CORPUSCULAR HEMOGLOBIN CONC (BEAKER) (test 30.9 GM/DL 32.3-36.5 ojqr=748) RED CELL DISTRIBUTION WIDTH (BEAKER) (test 18.6 % 11.6-14.4 nuao=430) PLATELET COUNT (BEAKER) (test afoi=448) 199 K/CU MM 150-450 MEAN PLATELET VOLUME (BEAKER) (test mjun=648) 10.3 fL 9.4-12.4 NUCLEATED RED BLOOD CELLS (BEAKER) (test 0 /100 WBC 0-0 uzmy=408) NEUTROPHILS RELATIVE PERCENT (BEAKER) (test 83 % uiad=218) LYMPHOCYTES RELATIVE PERCENT (BEAKER) (test 6 % wcfc=405) MONOCYTES RELATIVE PERCENT (BEAKER) (test 8 % xwiw=021) EOSINOPHILS RELATIVE PERCENT (BEAKER) (test 2 % ckwv=744) BASOPHILS RELATIVE PERCENT (BEAKER) (test 1 % njtq=884) NEUTROPHILS ABSOLUTE COUNT (BEAKER) (test 8.20 K/ L 1.78-5.38 qili=006) LYMPHOCYTES ABSOLUTE COUNT (BEAKER) (test 0.61 K/ L 1.32-3.57 hdtq=162) MONOCYTES ABSOLUTE COUNT (BEAKER) (test 0.79 K/ L 0.30-0.82 pmst=779) EOSINOPHILS ABSOLUTE COUNT (BEAKER) (test 0.18 K/ L 0.04-0.54 lfeu=585) BASOPHILS ABSOLUTE COUNT (BEAKER) (test 0.06 K/ L 0.01-0.08 uiuj=825) IMMATURE GRANULOCYTES-RELATIVE PERCENT (BEAKER) 1 % 0-1 (test goud=9846) PROTHROMBIN [id number] 06:14:00 Test Item Value Reference Range Comments PROTIME (BEAKER) (test tzmy=527) 19.5 seconds 11.9-14.2 INR (BEAKER) (test qatu=152) 1.8 <=5.9 Effective 07/29/2018: PT Reference Range ChangeNew: 11.9-14.2 Previous: 11.7- 14.7RECOMMENDED COUMADIN/WARFARIN INR THERAPY RANGESSTANDARD DOSE: 2.0-3.0 Includes: PROPHYLAXIS for venous thrombosis, systemic embolization; TREATMENT for venous thrombosis and/or pulmonary embolus.HIGH RISK: Target INR is2.5-3.5 for patients wiht mechanical heart valves.While on warfarin.[id number] 06:14 :00 Test Item Value Reference Range Comments PARTIAL THROMBOPLASTIN TIME (BEAKER) (test 77.3 seconds 22.5-36.0 mkxh=311) POCT-GLUCOSE [id number] 21:26:00 Test Item Value Reference Range Comments POC-GLUCOSE METER (BEAKER) 147 mg/dL 70-110 TESTED AT [address] (test wkch=0032) [place] [id number] POCT-GLUCOSE [id number] 17:59:00 Test Item Value Reference Range Comments POC-GLUCOSE METER (BEAKER) 114 mg/dL 70-110 TESTED AT [address] (test hnql=5870) [place] [id number] POCT-GLUCOSE [id number] 14:16:00 Test Item Value Reference Range Comments POC-GLUCOSE METER (BEAKER) 141 mg/dL 70-110 TESTED AT [address] (test jzbq=5094) [facility] [id number] CBC W/PLT COUNT & AUTO [id number] 12:14:00 Test Item Value Reference Range Comments WHITE BLOOD CELL COUNT (BEAKER) (test gyyh=849) 12.0 K/ L 3.5-10.5 RED BLOOD CELL COUNT (BEAKER) (test qibz=071) 3.31 M/ L 4.63-6.08 HEMOGLOBIN (BEAKER) (test zrhn=460) 10.5 GM/DL 13.7-17.5 HEMATOCRIT (BEAKER) (test duow=260) 32.9 % 40.1-51.0 MEAN CORPUSCULAR VOLUME (BEAKER) (test sjyp=248) 99.4 fL 79.0-92.2 MEAN CORPUSCULAR HEMOGLOBIN (BEAKER) (test 31.7 pg 25.7-32.2 aauj=281) MEAN CORPUSCULAR HEMOGLOBIN CONC (BEAKER) (test 31.9 GM/DL 32.3-36.5 rsyg=704) RED CELL DISTRIBUTION WIDTH (BEAKER) (test 18.6 % 11.6-14.4 kgjc=191) PLATELET COUNT (BEAKER) (test qbao=758) 247 K/CU MM 150-450 MEAN PLATELET VOLUME (BEAKER) (test hlkw=537) 11.0 fL 9.4-12.4 NUCLEATED RED BLOOD CELLS (BEAKER) (test 0 /100 WBC 0-0 volh=148) NEUTROPHILS RELATIVE PERCENT (BEAKER) (test 85 % gezj=439) LYMPHOCYTES RELATIVE PERCENT (BEAKER) (test 7 % mmty=703) MONOCYTES RELATIVE PERCENT (BEAKER) (test 6 % skwl=842) EOSINOPHILS RELATIVE PERCENT (BEAKER) (test 1 % fxxg=753) BASOPHILS RELATIVE PERCENT (BEAKER) (test 0 % ximr=331) NEUTROPHILS ABSOLUTE COUNT (BEAKER) (test 10.21 K/ L 1.78-5.38 nycx=737) LYMPHOCYTES ABSOLUTE COUNT (BEAKER) (test 0.78 K/ L 1.32-3.57 yamt=197) MONOCYTES ABSOLUTE COUNT (BEAKER) (test 0.72 K/ L 0.30-0.82 ylnz=977) EOSINOPHILS ABSOLUTE COUNT (BEAKER) (test 0.16 K/ L 0.04-0.54 taqm=415) BASOPHILS ABSOLUTE COUNT (BEAKER) (test 0.05 K/ L 0.01-0.08 jzjp=264) IMMATURE GRANULOCYTES-RELATIVE PERCENT (BEAKER) 1 % 0-1 (test tjnf=1599) POCT-GLUCOSE [id number] 11:22:00 Test Item Value Reference Range Comments POC-GLUCOSE METER (BEAKER) 137 mg/dL 70-110 TESTED AT [address] (test mpcf=1160) [facility] [id number] POCT-GLUCOSE [id number] 09:39:00 Test Item Value Reference Range Comments POC-GLUCOSE METER (BEAKER) 118 mg/dL 70-110 TESTED AT [address] (test vlay=1135) [facility] [id number] 07:36:00 Test Item Value Reference Range Comments PARTIAL THROMBOPLASTIN TIME (BEAKER) (test 67.9 seconds 22.5-36.0 ccrp=256) While on warfarin.COMPREHENSIVE METABOLIC [id number] 06:51:00 Test Item Value Reference Range Comments TOTAL PROTEIN (BEAKER) 6.1 gm/dL 6.0-8.3 (test ffvj=356) ALBUMIN (BEAKER) (test 3.1 g/dL 3.5-5.0 jctw=0576) ALKALINE PHOSPHATASE 131 U/L 40-150 (BEAKER) (test sykx=662) BILIRUBIN TOTAL (BEAKER) 2.7 mg/dL 0.2-1.2 (test aqsu=532) SODIUM (BEAKER) (test 132 meq/L 136-145 khba=417) POTASSIUM (BEAKER) (test 4.9 meq/L 3.5-5.1 eyci=519) CHLORIDE (BEAKER) (test 95 meq/L 98-107 xrml=792) CO2 (BEAKER) (test 25 meq/L 22-29 gsbn=819) BLOOD UREA NITROGEN 59 mg/dL 7-21 (BEAKER) (test adbd=200) CREATININE (BEAKER) (test 7.24 mg/dL 0.57-1.25 nbdw=324) GLUCOSE RANDOM (BEAKER) 138 mg/dL 70-105 (test diex=874) CALCIUM (BEAKER) (test 9.3 mg/dL 8.4-10.2 dmfa=274) AST (SGOT) (BEAKER) (test 38 U/L 5-34 ygzj=764) ALT (SGPT) (BEAKER) (test 86 U/L 6-55 cbex=544) EGFR (BEAKER) (test 7 mL/min/1.73 sq m ESTIMATED GFR IS NOT mdbj=3764) ACCURATE CREATININE CLEARANCE IN PREDICTING GLOMERULAR FILTRATION RATE. ESTIMATED GFR IS NOT APPLICABLE FOR DIALYSIS PATIENTS. Specimen slightly [id number] 06:32:00 Test Item Value Reference Range Comments MAGNESIUM (BEAKER) (test tvcg=976) 3.2 mg/dL 1.6-2.6 CBC W/PLT COUNT & AUTO [id number] 05:57:00 Test Item Value Reference Range Comments WHITE BLOOD CELL COUNT (BEAKER) (test bqvl=734) 11.3 K/ L 3.5-10.5 RED BLOOD CELL COUNT (BEAKER) (test brmv=773) 3.34 M/ L 4.63-6.08 HEMOGLOBIN (BEAKER) (test figp=696) 10.4 GM/DL 13.7-17.5 HEMATOCRIT (BEAKER) (test tfjn=167) 32.9 % 40.1-51.0 MEAN CORPUSCULAR VOLUME (BEAKER) (test dhoa=342) 98.5 fL 79.0-92.2 MEAN CORPUSCULAR HEMOGLOBIN (BEAKER) (test 31.1 pg 25.7-32.2 liye=510) MEAN CORPUSCULAR HEMOGLOBIN CONC (BEAKER) (test 31.6 GM/DL 32.3-36.5 mlfq=976) RED CELL DISTRIBUTION WIDTH (BEAKER) (test 18.6 % 11.6-14.4 euif=235) PLATELET COUNT (BEAKER) (test ixvc=263) 206 K/CU MM 150-450 MEAN PLATELET VOLUME (BEAKER) (test zzev=253) 10.8 fL 9.4-12.4 NUCLEATED RED BLOOD CELLS (BEAKER) (test 0 /100 WBC 0-0 ldav=620) NEUTROPHILS RELATIVE PERCENT (BEAKER) (test 85 % zgvd=767) LYMPHOCYTES RELATIVE PERCENT (BEAKER) (test 6 % rquo=484) MONOCYTES RELATIVE PERCENT (BEAKER) (test 6 % fwco=391) EOSINOPHILS RELATIVE PERCENT (BEAKER) (test 2 % unzq=455) BASOPHILS RELATIVE PERCENT (BEAKER) (test 1 % mkwb=951) NEUTROPHILS ABSOLUTE COUNT (BEAKER) (test 9.61 K/ L 1.78-5.38 gcix=049) LYMPHOCYTES ABSOLUTE COUNT (BEAKER) (test 0.63 K/ L 1.32-3.57 whbu=646) MONOCYTES ABSOLUTE COUNT (BEAKER) (test 0.72 K/ L 0.30-0.82 mugt=610) EOSINOPHILS ABSOLUTE COUNT (BEAKER) (test 0.18 K/ L 0.04-0.54 dhax=554) BASOPHILS ABSOLUTE COUNT (BEAKER) (test 0.06 K/ L 0.01-0.08 uzyu=023) IMMATURE GRANULOCYTES-RELATIVE PERCENT (BEAKER) 1 % 0-1 (test bajp=0995) PROTHROMBIN [id number] 05:52:00 Test Item Value Reference Range Comments PROTIME (BEAKER) (test wzil=325) 23.2 seconds 11.9-14.2 INR (BEAKER) (test rhtm=454) 2.2 <=5.9 Effective 07/29/2018: PT Reference Range ChangeNew: 11.9-14.2 Previous: 11.7- 14.7RECOMMENDED COUMADIN/WARFARIN INR THERAPY RANGESSTANDARD DOSE: 2.0-3.0 Includes: PROPHYLAXIS for venous thrombosis, systemic embolization; TREATMENT for venous thrombosis and/or pulmonary embolus.HIGH RISK: Target INR is2.5-3.5 for patients wiht mechanical heart valves.While on warfarin.POCT-GLUCOSE [id number] 21:23:00 Test Item Value Reference Range Comments POC-GLUCOSE METER (BEAKER) 156 mg/dL 70-110 TESTED AT [address] (test hzjk=1696) [place] [id number] POCT-GLUCOSE [id number] 17:07:00 Test Item Value Reference Range Comments POC-GLUCOSE METER (BEAKER) 158 mg/dL 70-110 TESTED AT [address] (test dedn=7920) [place] [address] [id number] 13:25:00 Test Item Value Reference Range Comments PARTIAL THROMBOPLASTIN TIME (BEAKER) (test 89.3 seconds 22.5-36.0 aelb=003) POCT-GLUCOSE [id number] 12:20:00 Test Item Value Reference Range Comments POC-GLUCOSE METER (BEAKER) 167 mg/dL 70-110 TESTED AT [address] (test rcqd=0425) [place] [id number] POCT-GLUCOSE [id number] 07:42:00 Test Item Value Reference Range Comments POC-GLUCOSE METER (BEAKER) 132 mg/dL 70-110 TESTED AT [address] (test xuqc=4263) [place] [address] COMPREHENSIVE METABOLIC [id number] 07:04:00 Test Item Value Reference Range Comments TOTAL PROTEIN (BEAKER) 6.6 gm/dL 6.0-8.3 (test rgxx=165) ALBUMIN (BEAKER) (test 3.4 g/dL 3.5-5.0 vpwq=2162) ALKALINE PHOSPHATASE 131 U/L 40-150 (BEAKER) (test cphc=936) BILIRUBIN TOTAL (BEAKER) 3.4 mg/dL 0.2-1.2 (test isot=462) SODIUM (BEAKER) (test 131 meq/L 136-145 jpfj=716) POTASSIUM (BEAKER) (test 4.4 meq/L 3.5-5.1 ftib=453) CHLORIDE (BEAKER) (test 95 meq/L 98-107 bpru=544) CO2 (BEAKER) (test 23 meq/L 22-29 lybx=033) BLOOD UREA NITROGEN 47 mg/dL 7-21 (BEAKER) (test vuzr=736) CREATININE (BEAKER) (test 6.18 mg/dL 0.57-1.25 cdrs=597) GLUCOSE RANDOM (BEAKER) 120 mg/dL 70-105 (test fmyv=464) CALCIUM (BEAKER) (test 9.4 mg/dL 8.4-10.2 oagv=843) AST (SGOT) (BEAKER) (test 40 U/L 5-34 arlb=522) ALT (SGPT) (BEAKER) (test 101 U/L 6-55 whmy=786) EGFR (BEAKER) (test 9 mL/min/1.73 sq m ESTIMATED GFR IS NOT sskv=6116) ACCURATE CREATININE CLEARANCE IN PREDICTING GLOMERULAR FILTRATION RATE. ESTIMATED GFR IS NOT APPLICABLE FOR DIALYSIS PATIENTS. Specimen slightly [id number] 07:01:00 Test Item Value Reference Range Comments MAGNESIUM (BEAKER) (test wccx=728) 2.8 mg/dL 1.6-2.6 PROTHROMBIN [id number] 06:40:00 Test Item Value Reference Range Comments PROTIME (BEAKER) (test fwih=177) 18.5 seconds 11.9-14.2 INR (BEAKER) (test utgc=844) 1.6 <=5.9 Effective 07/29/2018: PT Reference Range ChangeNew: 11.9-14.2 Previous: 11.7- 14.7RECOMMENDED COUMADIN/WARFARIN INR THERAPY RANGESSTANDARD DOSE: 2.0-3.0 Includes: PROPHYLAXIS for venous thrombosis, systemic embolization; TREATMENT for venous thrombosis and/or pulmonary embolus.HIGH RISK: Target INR is2.5-3.5 for patients wiht mechanical heart valves.While on warfarin.CBC W/PLT COUNT &amp ; AUTO [id number] 06:36:00 Test Item Value Reference Range Comments WHITE BLOOD CELL COUNT (BEAKER) (test hfmw=834) 11.2 K/ L 3.5-10.5 RED BLOOD CELL COUNT (BEAKER) (test qbre=495) 3.72 M/ L 4.63-6.08 HEMOGLOBIN (BEAKER) (test umri=568) 11.7 GM/DL 13.7-17.5 HEMATOCRIT (BEAKER) (test ujaj=626) 38.3 % 40.1-51.0 MEAN CORPUSCULAR VOLUME (BEAKER) (test furb=422) 103.0 fL 79.0-92.2 MEAN CORPUSCULAR HEMOGLOBIN (BEAKER) (test 31.5 pg 25.7-32.2 ttrh=127) MEAN CORPUSCULAR HEMOGLOBIN CONC (BEAKER) (test 30.5 GM/DL 32.3-36.5 whrl=428) RED CELL DISTRIBUTION WIDTH (BEAKER) (test 19.1 % 11.6-14.4 mlco=073) PLATELET COUNT (BEAKER) (test vkqy=390) 205 K/CU MM 150-450 MEAN PLATELET VOLUME (BEAKER) (test kfsp=059) 11.3 fL 9.4-12.4 NUCLEATED RED BLOOD CELLS (BEAKER) (test 0 /100 WBC 0-0 dxzf=220) NEUTROPHILS RELATIVE PERCENT (BEAKER) (test 82 % xpvm=439) LYMPHOCYTES RELATIVE PERCENT (BEAKER) (test 7 % vdgt=010) MONOCYTES RELATIVE PERCENT (BEAKER) (test 8 % ljrz=621) EOSINOPHILS RELATIVE PERCENT (BEAKER) (test 1 % qhgr=084) BASOPHILS RELATIVE PERCENT (BEAKER) (test 1 % ylui=385) NEUTROPHILS ABSOLUTE COUNT (BEAKER) (test 9.19 K/ L 1.78-5.38 hjso=228) LYMPHOCYTES ABSOLUTE COUNT (BEAKER) (test 0.79 K/ L 1.32-3.57 uvoo=679) MONOCYTES ABSOLUTE COUNT (BEAKER) (test 0.86 K/ L 0.30-0.82 fffi=045) EOSINOPHILS ABSOLUTE COUNT (BEAKER) (test 0.16 K/ L 0.04-0.54 nffs=164) BASOPHILS ABSOLUTE COUNT (BEAKER) (test 0.07 K/ L 0.01-0.08 nper=542) IMMATURE GRANULOCYTES-RELATIVE PERCENT (BEAKER) 1 % 0-1 (test wgfx=0732) POCT-GLUCOSE [id number] 22:24:00 Test Item Value Reference Range Comments POC-GLUCOSE METER (BEAKER) 152 mg/dL 70-110 TESTED AT [address] (test srao=8655) [facility] [address] POCT-GLUCOSE [id number] 17:15:00 Test Item Value Reference Range Comments POC-GLUCOSE METER (BEAKER) 157 mg/dL 70-110 TESTED AT [address] (test imxw=4915) [facility] [address] RAD, CHEST, 1 VIEW, NON [id number] 15:38:00Reason for exam:->coughShould this be performed at the bedside?->YesFINAL REPORT Portable chest. CLINICAL HISTORY: cough. COMPARISON STUDY: July 31, 2018. FINDINGS: The cardiac silhouette is enlarged. The pulmonary parenchyma demonstrates mild interstitial markings. A left jugular line remains. No pneumothorax is seen. Degenerative changes are noted. IMPRESSION: No significant change. Signed: Daniel Gibbs Verified Date/Time: 2018 15:38:51 Reading Location: [address] Ortho Consult Reading Room POCT- GLUCOSE [id number] 07:50:00 Test Item Value Reference Range Comments POC-GLUCOSE METER (BEAKER) 132 mg/dL 70-110 TESTED AT [address] (test ukzj=6735) [facility] [address] COMPREHENSIVE METABOLIC [id number] 07:16:00 Test Item Value Reference Range Comments TOTAL PROTEIN (BEAKER) 6.1 gm/dL 6.0-8.3 (test rzxv=387) ALBUMIN (BEAKER) (test 3.1 g/dL 3.5-5.0 otvm=1570) ALKALINE PHOSPHATASE 123 U/L 40-150 (BEAKER) (test hvkf=377) BILIRUBIN TOTAL (BEAKER) 3.1 mg/dL 0.2-1.2 (test xazi=283) SODIUM (BEAKER) (test 136 meq/L 136-145 lgtu=994) POTASSIUM (BEAKER) (test 4.0 meq/L 3.5-5.1 xthd=409) CHLORIDE (BEAKER) (test 99 meq/L 98-107 pjpi=162) CO2 (BEAKER) (test 27 meq/L 22-29 qcnw=449) BLOOD UREA NITROGEN 37 mg/dL 7-21 (BEAKER) (test nqrl=651) CREATININE (BEAKER) (test 5.17 mg/dL 0.57-1.25 nlmp=094) GLUCOSE RANDOM (BEAKER) 155 mg/dL 70-105 (test keon=448) CALCIUM (BEAKER) (test 9.2 mg/dL 8.4-10.2 micm=824) AST (SGOT) (BEAKER) (test 53 U/L 5-34 ozpb=808) ALT (SGPT) (BEAKER) (test 124 U/L 6-55 pdlo=177) EGFR (BEAKER) (test 11 mL/min/1.73 sq m ESTIMATED GFR IS NOT euor=5822) ACCURATE CREATININE CLEARANCE IN PREDICTING GLOMERULAR FILTRATION RATE. ESTIMATED GFR IS NOT APPLICABLE FOR DIALYSIS PATIENTS. Specimen slightly [id number] 07:02:00 Test Item Value Reference Range Comments PHOSPHORUS (BEAKER) (test fpmy=200) 4.3 mg/dL 2.3-4.7 [id number] 07:02:00 Test Item Value Reference Range Comments MAGNESIUM (BEAKER) (test pmhu=727) 2.5 mg/dL 1.6-2.6 CBC W/PLT COUNT & AUTO [id number] 06:31:00 Test Item Value Reference Range Comments WHITE BLOOD CELL COUNT (BEAKER) (test vvet=713) 10.8 K/ L 3.5-10.5 RED BLOOD CELL COUNT (BEAKER) (test wbyf=030) 3.47 M/ L 4.63-6.08 HEMOGLOBIN (BEAKER) (test dijj=364) 10.7 GM/DL 13.7-17.5 HEMATOCRIT (BEAKER) (test pcaz=572) 34.7 % 40.1-51.0 MEAN CORPUSCULAR VOLUME (BEAKER) (test vadp=718) 100.0 fL 79.0-92.2 MEAN CORPUSCULAR HEMOGLOBIN (BEAKER) (test 30.8 pg 25.7-32.2 urqf=591) MEAN CORPUSCULAR HEMOGLOBIN CONC (BEAKER) (test 30.8 GM/DL 32.3-36.5 bbcs=180) RED CELL DISTRIBUTION WIDTH (BEAKER) (test 19.4 % 11.6-14.4 alox=046) PLATELET COUNT (BEAKER) (test gfam=666) 179 K/CU MM 150-450 MEAN PLATELET VOLUME (BEAKER) (test nsem=665) 11.0 fL 9.4-12.4 NUCLEATED RED BLOOD CELLS (BEAKER) (test 0 /100 WBC 0-0 evsh=904) NEUTROPHILS RELATIVE PERCENT (BEAKER) (test 82 % vbyb=326) LYMPHOCYTES RELATIVE PERCENT (BEAKER) (test 6 % epqd=028) MONOCYTES RELATIVE PERCENT (BEAKER) (test 10 % eocs=283) EOSINOPHILS RELATIVE PERCENT (BEAKER) (test 2 % efdh=142) BASOPHILS RELATIVE PERCENT (BEAKER) (test 0 % vlqp=236) NEUTROPHILS ABSOLUTE COUNT (BEAKER) (test 8.79 K/ L 1.78-5.38 frol=519) LYMPHOCYTES ABSOLUTE COUNT (BEAKER) (test 0.67 K/ L 1.32-3.57 ohcx=883) MONOCYTES ABSOLUTE COUNT (BEAKER) (test 1.03 K/ L 0.30-0.82 aoie=940) EOSINOPHILS ABSOLUTE COUNT (BEAKER) (test 0.16 K/ L 0.04-0.54 pyxd=442) BASOPHILS ABSOLUTE COUNT (BEAKER) (test 0.03 K/ L 0.01-0.08 sibk=534) IMMATURE GRANULOCYTES-RELATIVE PERCENT (BEAKER) 1 % 0-1 (test hsla=7378) [id number] 06:22:00 Test Item Value Reference Range Comments PROTIME (BEAKER) (test pjrl=645) 17.6 seconds 11.9-14.2 INR (BEAKER) (test rpjq=464) 1.5 <=5.9 PARTIAL THROMBOPLASTIN TIME (BEAKER) (test 69.4 seconds 22.5-36.0 qfgd=858) Effective 07/29/2018: PT Reference Range ChangeNew: 11.9-14.2 Previous: 11.7- 14.7RECOMMENDED COUMADIN/WARFARIN INR THERAPY RANGESSTANDARD DOSE: 2.0-3.0 Includes: PROPHYLAXIS for venous thrombosis, systemic embolization; TREATMENT for venous thrombosis and/or pulmonary embolus.HIGH RISK: Target INR is2.5-3.5 for patients wiht mechanical heart valves.While on warfarin.While on warfarin.PROTHROMBIN TIME/[id number] 06:21:00 Test Item Value Reference Range Comments PROTIME (BEAKER) (test sjtm=921) 17.6 seconds 11.9-14.2 INR (BEAKER) (test jjrx=796) 1.5 <=5.9 Effective 07/29/2018: PT Reference Range ChangeNew: 11.9-14.2 Previous: 11.7- 14.7RECOMMENDED COUMADIN/WARFARIN INR THERAPY RANGESSTANDARD DOSE: 2.0-3.0 Includes: PROPHYLAXIS for venous thrombosis, systemic embolization; TREATMENT for venous thrombosis and/or pulmonary embolus.HIGH RISK: Target INR is2.5-3.5 for patients wiht mechanical heart valves.POCT-GLUCOSE [id number] 21:12:00 Test Item Value Reference Range Comments POC-GLUCOSE METER (BEAKER) 129 mg/dL 70-110 TESTED AT [address] (test zhnl=4121) [facility] [address] POCT-GLUCOSE [id number] 17:43:00 Test Item Value Reference Range Comments POC-GLUCOSE METER (BEAKER) 192 mg/dL 70-110 TESTED AT [address] (test crod=5817) [facility] [address] ANG, AV-SHUNT, CATH INTRO WITH [id number] 16:46:00Reason for exam:-> clotted AVFFINAL REPORT Left upper extremity AV fistula declot. History: Thrombosed left upper extremity AV fistula. Modality: Ultrasound and fluoroscopy Sedation: None Anesthesia: Two percent Lidocaine without epinephrine. Approach: Left upper extremity AV fistula Estimated blood loss: < 5 cc. Specimen: None. winding machine operator: Jean-Claude Jones MD. Laboratory Asst: MD Deshaun. Fluoroscopy Time: 12.6 min.Reference Air [...] was removed. 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 Suggest repeat testing in 12 weeks and when patient not receiving anticoagulant therapy. PROTIME (BEAKER) (test 14.9 seconds 11.9-14.2 fvex=009) INR (BEAKER) (test uahi=838) 1.2 <=5.9 PARTIAL THROMBOPLASTIN TIME 44.9 seconds 22.5-36.0 (BEAKER) (test ajiv=587) PTT-LA (BEAKER) (test 55.1 32.0-41.8 slji=[id number]) SCEX-DKXHEGXQUOA-949 (BEAKER) Maynor Hayward M.D. (test efge=8142) (electonic signature) HEXAGONAL [id number] 13:24:00 Test Item Value Reference Range Comments HEXAGONAL PHOSPHOLIPID (BEAKER) (test xlqe=3706) Positive POCT-GLUCOSE [id number] 12:57:00 Test Item Value Reference Range Comments POC-GLUCOSE METER (BEAKER) 93 mg/dL 70-110 TESTED AT [facility] [address] [place] [address] (test dmpi=5196) [facility] [address] COMPREHENSIVE METABOLIC [id number] 12:54:00 Test Item Value Reference Range Comments TOTAL PROTEIN (BEAKER) 6.3 gm/dL 6.0-8.3 (test lukf=764) ALBUMIN (BEAKER) (test 3.1 g/dL 3.5-5.0 rlpl=5983) ALKALINE PHOSPHATASE 128 U/L 40-150 (BEAKER) (test dquu=982) BILIRUBIN TOTAL (BEAKER) 3.9 mg/dL 0.2-1.2 (test sznu=106) SODIUM (BEAKER) (test 138 meq/L 136-145 vcgv=215) POTASSIUM (BEAKER) (test 3.5 meq/L 3.5-5.1 dsud=017) CHLORIDE (BEAKER) (test 101 meq/L 98-107 vokq=895) CO2 (BEAKER) (test 28 meq/L 22-29 imog=546) BLOOD UREA NITROGEN 22 mg/dL 7-21 (BEAKER) (test tkvt=389) CREATININE (BEAKER) (test 3.20 mg/dL 0.57-1.25 otuo=566) GLUCOSE RANDOM (BEAKER) 103 mg/dL 70-105 (test ipjd=505) CALCIUM (BEAKER) (test 9.2 mg/dL 8.4-10.2 hohr=027) AST (SGOT) (BEAKER) (test 54 U/L 5-34 eypo=279) ALT (SGPT) (BEAKER) (test 133 U/L 6-55 aynv=271) EGFR (BEAKER) (test 19 mL/min/1.73 sq m ESTIMATED GFR IS NOT nhyf=4225) ACCURATE CREATININE CLEARANCE IN PREDICTING GLOMERULAR FILTRATION RATE. ESTIMATED GFR IS NOT APPLICABLE FOR DIALYSIS PATIENTS. Specimen moderately [id number] 12:37:00 Test Item Value Reference Range Comments MAGNESIUM (BEAKER) (test ojwc=424) 1.8 mg/dL 1.6-2.6 POCT-GLUCOSE [id number] 11:49:00 Test Item Value Reference Range Comments POC-GLUCOSE METER (BEAKER) 86 mg/dL 70-110 TESTED AT [facility] [address] [facility] (test caas=2782) [facility] [address] PT/[id number] 11:48:00 Test Item Value Reference Range Comments PROTIME (BEAKER) (test hexi=691) 17.4 seconds 11.9-14.2 INR (BEAKER) (test rysi=949) 1.5 <=5.9 PARTIAL THROMBOPLASTIN TIME (BEAKER) (test 66.0 seconds 22.5-36.0 subu=490) Effective 07/29/2018: PT Reference Range ChangeNew: 11.9-14.2 Previous: 11.7- 14.7RECOMMENDED COUMADIN/WARFARIN INR THERAPY RANGESSTANDARD DOSE: 2.0-3.0 Includes: PROPHYLAXIS for venous thrombosis, systemic embolization; TREATMENT for venous thrombosis and/or pulmonary embolus.HIGH RISK: Target INR is2.5-3.5 for patients wiht mechanical heart valves.CBC W/PLT COUNT & AUTO [id number] 11:40:00 Test Item Value Reference Range Comments WHITE BLOOD CELL COUNT (BEAKER) (test bhyr=762) 11.2 K/ L 3.5-10.5 RED BLOOD CELL COUNT (BEAKER) (test kptz=805) 3.51 M/ L 4.63-6.08 HEMOGLOBIN (BEAKER) (test irrw=170) 11.2 GM/DL 13.7-17.5 HEMATOCRIT (BEAKER) (test mfcw=951) 34.1 % 40.1-51.0 MEAN CORPUSCULAR VOLUME (BEAKER) (test azed=348) 97.2 fL 79.0-92.2 MEAN CORPUSCULAR HEMOGLOBIN (BEAKER) (test 31.9 pg 25.7-32.2 wnvw=257) MEAN CORPUSCULAR HEMOGLOBIN CONC (BEAKER) (test 32.8 GM/DL 32.3-36.5 ocqf=673) RED CELL DISTRIBUTION WIDTH (BEAKER) (test 19.6 % 11.6-14.4 osth=714) PLATELET COUNT (BEAKER) (test ckqs=620) 138 K/CU MM 150-450 MEAN PLATELET VOLUME (BEAKER) (test jhtn=506) 10.7 fL 9.4-12.4 NUCLEATED RED BLOOD CELLS (BEAKER) (test 0 /100 WBC 0-0 tkpt=287) NEUTROPHILS RELATIVE PERCENT (BEAKER) (test 81 % qjng=800) LYMPHOCYTES RELATIVE PERCENT (BEAKER) (test 7 % adht=281) MONOCYTES RELATIVE PERCENT (BEAKER) (test 10 % yfsp=237) EOSINOPHILS RELATIVE PERCENT (BEAKER) (test 2 % lhcy=344) BASOPHILS RELATIVE PERCENT (BEAKER) (test 0 % subm=757) NEUTROPHILS ABSOLUTE COUNT (BEAKER) (test 9.02 K/ L 1.78-5.38 rvtv=544) LYMPHOCYTES ABSOLUTE COUNT (BEAKER) (test 0.73 K/ L 1.32-3.57 jmaz=312) MONOCYTES ABSOLUTE COUNT (BEAKER) (test 1.09 K/ L 0.30-0.82 bomj=825) EOSINOPHILS ABSOLUTE COUNT (BEAKER) (test 0.21 K/ L 0.04-0.54 cxte=600) BASOPHILS ABSOLUTE COUNT (BEAKER) (test 0.03 K/ L 0.01-0.08 razh=304) IMMATURE GRANULOCYTES-RELATIVE PERCENT (BEAKER) 1 % 0-1 (test ousy=6799) 1:1 MIXING STUDY, [id number] 11:18:00 Test Item Value Reference Range Comments PROTIME (BEAKER) (test mynz=658) 14.9 seconds 11.9-14.2 PARTIAL THROMBOPLASTIN TIME (BEAKER) (test 44.9 seconds 22.5-36.0 waco=508) PT 1/1 MIX (BEAKER) (test qjwx=1042) 13.6 SECS 11.7-14.7 PTT 1/1 MIX (BEAKER) (test wufy=9633) 34.8 SECS 22.5-36.0 THROMBIN [id number] 10:46:00 Test Item Value Reference Range Comments THROMBIN TIME (BEAKER) (test skfo=864) 23.0 secs 13.8-20.0 POCT-GLUCOSE [id number] 21:46:00 Test Item Value Reference Range Comments POC-GLUCOSE METER (BEAKER) 169 mg/dL 70-110 TESTED AT [address] (test ggqy=5968) [facility] [address] CT, CTA, [id number] 18:58:00Addendum BeginsREPORT STATUS:A ADDENDUM: Study reviewed by radiology. Agree with the nonvascular findings as described below. 1.4 cm right upper lobe groundglass opacity with ill-defined margins may be followed with CT in 6 months. Signed: Gallo Delgado MDReport Verified Date/Time: 08/06/2018 18:58:59 Reading Location: [place] [address] Angio Body Reading RoomAddendum EndsFINAL REPORT CT [...] 45.4 degrees. The angle of delivery is TUVALUAN 5 CAU 19. The minimal and perpendicular [...] dictated regarding the non-vascular findings by the Diagnostic Cardiac Sonographer Radiologist. Signed: Edgar Torres MDReport Verified Date/Time : 08/06/2018 17:20:23 Reading Location: [place] [id number] Cardiology MRI CT, CTA [id number] 18:58:00Addendum BeginsREPORT STATUS:A ADDENDUM: Study reviewed by radiology. Agree with the nonvascular findings as described below. 1.4 cm right upper lobe groundglass opacity with ill-defined margins may be followed with CT in 6 months. Signed: Gallo Delgado Verified Date/Time: 08/06/2018 18:58:59 Reading Location: [facility] B1 P048 Angio Body Reading RoomAddendum EndsFINAL REPORT [...] 45.4 degrees. The angle of delivery is TUVALUAN 5 CAU 19. The minimal and perpendicular [...] dictated regarding the non-vascular findings by the Diagnostic Cardiac Sonographer Radiologist. Signed: Edgar Torres MDReport Verified Date/Time : 08/06/2018 17:20:23 Reading Location: [place] [address] Cardiology MRI POCT- GLUCOSE [id number] 12:37:00 Test Item Value Reference Range Comments POC-GLUCOSE METER (BEAKER) 204 mg/dL 70-110 TESTED AT [address] (test saoh=3195) [facility] [address] POCT-GLUCOSE [id number] 09:10:00 Test Item Value Reference Range Comments POC-GLUCOSE METER (BEAKER) 166 mg/dL 70-110 TESTED AT [address] (test nahm=0980) [place] [id number] COMPREHENSIVE METABOLIC [id number] 02:39:00 Test Item Value Reference Range Comments TOTAL PROTEIN (BEAKER) 6.0 gm/dL 6.0-8.3 (test kazl=629) ALBUMIN (BEAKER) (test 3.0 g/dL 3.5-5.0 rnaw=1584) ALKALINE PHOSPHATASE 140 U/L 40-150 (BEAKER) (test yzyr=225) BILIRUBIN TOTAL (BEAKER) 4.9 mg/dL 0.2-1.2 (test rlqk=507) SODIUM (BEAKER) (test 135 meq/L 136-145 gvqm=115) POTASSIUM (BEAKER) (test 3.9 meq/L 3.5-5.1 liez=558) CHLORIDE (BEAKER) (test 100 meq/L 98-107 zeyt=554) CO2 (BEAKER) (test 25 meq/L 22-29 zdqm=926) BLOOD UREA NITROGEN 41 mg/dL 7-21 (BEAKER) (test egzn=879) CREATININE (BEAKER) (test 5.53 mg/dL 0.57-1.25 kmoq=737) GLUCOSE RANDOM (BEAKER) 182 mg/dL 70-105 (test vzrq=077) CALCIUM (BEAKER) (test 9.3 mg/dL 8.4-10.2 zgwp=078) AST (SGOT) (BEAKER) (test 104 U/L 5-34 tkyh=360) ALT (SGPT) (BEAKER) (test 171 U/L 6-55 vwna=520) EGFR (BEAKER) (test 10 mL/min/1.73 sq m ESTIMATED GFR IS NOT bjlo=6433) ACCURATE CREATININE CLEARANCE IN PREDICTING GLOMERULAR FILTRATION RATE. ESTIMATED GFR IS NOT APPLICABLE FOR DIALYSIS PATIENTS. Specimen moderately [id number] 02:32:00 Test Item Value Reference Range Comments PHOSPHORUS (BEAKER) (test okhw=323) 4.1 mg/dL 2.3-4.7 [id number] 02:32:00 Test Item Value Reference Range Comments MAGNESIUM (BEAKER) (test dslg=427) 2.0 mg/dL 1.6-2.6 [id number] 02:21:00 Test Item Value Reference Range Comments PARTIAL THROMBOPLASTIN TIME (BEAKER) (test 66.8 seconds 22.5-36.0 accg=712) 4 hours after the start of continuous infusion and 4 hours after any rate changeWhile on warfarin.PROTHROMBIN [id number] 02:20:00 Test Item Value Reference Range Comments PROTIME (BEAKER) (test oezs=005) 19.0 seconds 11.9-14.2 INR (BEAKER) (test nmem=195) 1.7 <=5.9 Effective 07/29/2018: PT Reference Range ChangeNew: 11.9-14.2 Previous: 11.7- 14.7RECOMMENDED COUMADIN/WARFARIN INR THERAPY RANGESSTANDARD DOSE: 2.0-3.0 Includes: PROPHYLAXIS for venous thrombosis, systemic embolization; TREATMENT for venous thrombosis and/or pulmonary embolus.HIGH RISK: Target INR is2.5-3.5 for patients wiht mechanical heart valves.4 hours after the start of continuous infusion and4 hours after any rate changeWhile on warfarin.CBC W/PLT COUNT &amp ; AUTO [id number] 02:02:00 Test Item Value Reference Range Comments WHITE BLOOD CELL COUNT (BEAKER) (test uovg=705) 10.6 K/ L 3.5-10.5 RED BLOOD CELL COUNT (BEAKER) (test ibke=841) 3.68 M/ L 4.63-6.08 HEMOGLOBIN (BEAKER) (test madh=074) 11.8 GM/DL 13.7-17.5 HEMATOCRIT (BEAKER) (test wvga=544) 35.7 % 40.1-51.0 MEAN CORPUSCULAR VOLUME (BEAKER) (test ylyw=345) 97.0 fL 79.0-92.2 MEAN CORPUSCULAR HEMOGLOBIN (BEAKER) (test 32.1 pg 25.7-32.2 tvji=589) MEAN CORPUSCULAR HEMOGLOBIN CONC (BEAKER) (test 33.1 GM/DL 32.3-36.5 qzcq=885) RED CELL DISTRIBUTION WIDTH (BEAKER) (test 19.9 % 11.6-14.4 tvxu=104) PLATELET COUNT (BEAKER) (test iysx=341) 115 K/CU MM 150-450 MEAN PLATELET VOLUME (BEAKER) (test jzji=262) 11.4 fL 9.4-12.4 NUCLEATED RED BLOOD CELLS (BEAKER) (test 0 /100 WBC 0-0 gepa=454) NEUTROPHILS RELATIVE PERCENT (BEAKER) (test 80 % wunw=891) LYMPHOCYTES RELATIVE PERCENT (BEAKER) (test 5 % rcwc=247) MONOCYTES RELATIVE PERCENT (BEAKER) (test 12 % vtdi=829) EOSINOPHILS RELATIVE PERCENT (BEAKER) (test 2 % lgpy=185) BASOPHILS RELATIVE PERCENT (BEAKER) (test 0 % edky=144) NEUTROPHILS ABSOLUTE COUNT (BEAKER) (test 8.48 K/ L 1.78-5.38 fkvw=410) LYMPHOCYTES ABSOLUTE COUNT (BEAKER) (test 0.50 K/ L 1.32-3.57 ytgx=093) MONOCYTES ABSOLUTE COUNT (BEAKER) (test 1.31 K/ L 0.30-0.82 agmh=611) EOSINOPHILS ABSOLUTE COUNT (BEAKER) (test 0.17 K/ L 0.04-0.54 qvav=190) BASOPHILS ABSOLUTE COUNT (BEAKER) (test 0.03 K/ L 0.01-0.08 arjt=713) IMMATURE GRANULOCYTES-RELATIVE PERCENT (BEAKER) 1 % 0-1 (test dvou=3349) POCT-GLUCOSE [id number] 21:39:00 Test Item Value Reference Range Comments POC-GLUCOSE METER (BEAKER) 216 mg/dL 70-110 TESTED AT [address] (test trqj=1163) [place] [id number] POCT-GLUCOSE [id number] 21:39:00 Test Item Value Reference Range Comments POC-GLUCOSE METER (BEAKER) 140 mg/dL 70-110 TESTED AT [address] (test goid=0784) [place] [id number] PROTEIN ELECTROPHORESIS, [id number] 15:47:00 Test Item Value Reference Range Comments ALBUMIN FRACTION (BEAKER) 2.8 g/dL 3.5-5.5 (test juwe=015) ALPHA 1 FRACTION (BEAKER) 0.4 g/dL 0.2-0.4 (test xvvr=988) ALPHA 2 FRACTION (BEAKER) 0.6 g/dL 0.5-0.9 (test pkye=377) BETA FRACTION (BEAKER) (test 0.4 g/dL 0.6-1.1 ehra=045) GAMMA GLOBULIN FRACTION 1.4 g/dL 0.7-1.7 (BEAKER) (test sazo=300) INTERPRETATION-119 (BEAKER) Albumin decreased. Alpha (test vyfb=9151) globulin-1 percentage increased. This suggests an acute phase response. [id number] (BEAKER) Maynor Hayward M.D. (electonic (test okko=5888) signature) PROTEIN TOTAL SERUM, SPEP 5.6 gm/dL 6.0-8.3 (BEAKER) (test zdiz=8705) Low beta globulin content also noted.POCT-GLUCOSE [id number] 09:01:00 Test Item Value Reference Range Comments POC-GLUCOSE METER (BEAKER) 175 mg/dL 70-110 TESTED AT [facility] [address] [facility] (test exmt=7614) [facility] [address] COMPREHENSIVE METABOLIC [id number] 02:05:00 Test Item Value Reference Range Comments TOTAL PROTEIN (BEAKER) 5.7 gm/dL 6.0-8.3 (test zure=140) ALBUMIN (BEAKER) (test 2.9 g/dL 3.5-5.0 tjvp=8418) ALKALINE PHOSPHATASE 89 U/L 40-150 (BEAKER) (test nfvx=103) BILIRUBIN TOTAL (BEAKER) 5.7 mg/dL 0.2-1.2 (test pqbm=449) SODIUM (BEAKER) (test 137 meq/L 136-145 vzgs=460) POTASSIUM (BEAKER) (test 4.0 meq/L 3.5-5.1 nsvl=677) CHLORIDE (BEAKER) (test 98 meq/L 98-107 babc=154) CO2 (BEAKER) (test 26 meq/L 22-29 vkxa=172) BLOOD UREA NITROGEN 66 mg/dL 7-21 (BEAKER) (test zexd=494) CREATININE (BEAKER) (test 7.46 mg/dL 0.57-1.25 oiun=874) GLUCOSE RANDOM (BEAKER) 177 mg/dL 70-105 (test vgrn=231) CALCIUM (BEAKER) (test 9.2 mg/dL 8.4-10.2 uveb=979) AST (SGOT) (BEAKER) (test 66 U/L 5-34 hhec=897) ALT (SGPT) (BEAKER) (test 194 U/L 6-55 bkwk=759) EGFR (BEAKER) (test 7 mL/min/1.73 sq m ESTIMATED GFR IS NOT gqdy=3335) ACCURATE CREATININE CLEARANCE IN PREDICTING GLOMERULAR FILTRATION RATE. ESTIMATED GFR IS NOT APPLICABLE FOR DIALYSIS PATIENTS. Specimen moderately [id number] 02:00:00 Test Item Value Reference Range Comments PHOSPHORUS (BEAKER) (test gjge=614) 6.7 mg/dL 2.3-4.7 [id number] 02:00:00 Test Item Value Reference Range Comments MAGNESIUM (BEAKER) (test duxb=365) 2.3 mg/dL 1.6-2.6 CBC W/PLT COUNT & AUTO [id number] 01:50:00 Test Item Value Reference Range Comments WHITE BLOOD CELL COUNT (BEAKER) (test izzs=058) 9.6 K/ L 3.5-10.5 RED BLOOD CELL COUNT (BEAKER) (test peuz=795) 3.78 M/ L 4.63-6.08 HEMOGLOBIN (BEAKER) (test rmyc=589) 11.9 GM/DL 13.7-17.5 HEMATOCRIT (BEAKER) (test ncki=289) 37.0 % 40.1-51.0 MEAN CORPUSCULAR VOLUME (BEAKER) (test cqko=596) 97.9 fL 79.0-92.2 MEAN CORPUSCULAR HEMOGLOBIN (BEAKER) (test 31.5 pg 25.7-32.2 wxwo=375) MEAN CORPUSCULAR HEMOGLOBIN CONC (BEAKER) (test 32.2 GM/DL 32.3-36.5 gbzs=786) RED CELL DISTRIBUTION WIDTH (BEAKER) (test 19.9 % 11.6-14.4 pbjt=867) PLATELET COUNT (BEAKER) (test mzlu=993) 89 K/CU MM 150-450 MEAN PLATELET VOLUME (BEAKER) (test rotj=059) 12.1 fL 9.4-12.4 NUCLEATED RED BLOOD CELLS (BEAKER) (test 0 /100 WBC 0-0 jqdv=672) NEUTROPHILS RELATIVE PERCENT (BEAKER) (test 79 % tmri=005) LYMPHOCYTES RELATIVE PERCENT (BEAKER) (test 5 % bgzd=712) MONOCYTES RELATIVE PERCENT (BEAKER) (test 13 % zddy=071) EOSINOPHILS RELATIVE PERCENT (BEAKER) (test 2 % cozm=518) BASOPHILS RELATIVE PERCENT (BEAKER) (test 0 % rila=042) NEUTROPHILS ABSOLUTE COUNT (BEAKER) (test 7.57 K/ L 1.78-5.38 uboz=599) LYMPHOCYTES ABSOLUTE COUNT (BEAKER) (test 0.51 K/ L 1.32-3.57 fjtm=111) MONOCYTES ABSOLUTE COUNT (BEAKER) (test bcti=117) 1.24 K/ L 0.30-0.82 EOSINOPHILS ABSOLUTE COUNT (BEAKER) (test 0.16 K/ L 0.04-0.54 zupw=519) BASOPHILS ABSOLUTE COUNT (BEAKER) (test luht=579) 0.02 K/ L 0.01-0.08 IMMATURE GRANULOCYTES-RELATIVE PERCENT (BEAKER) 1 % 0-1 (test qjlp=3755) [id number] 01:49:00 Test Item Value Reference Range Comments PARTIAL THROMBOPLASTIN TIME (BEAKER) (test 71.2 seconds 22.5-36.0 guan=501) While on warfarin.PROTHROMBIN [id number] 01:48:00 Test Item Value Reference Range Comments PROTIME (BEAKER) (test vmkq=467) 18.6 seconds 11.9-14.2 INR (BEAKER) (test cwwr=168) 1.6 <=5.9 Effective 07/29/2018: PT Reference Range ChangeNew: 11.9-14.2 Previous: 11.7- 14.7RECOMMENDED COUMADIN/WARFARIN INR THERAPY RANGESSTANDARD DOSE: 2.0-3.0 Includes: PROPHYLAXIS for venous thrombosis, systemic embolization; TREATMENT for venous thrombosis and/or pulmonary embolus.HIGH RISK: Target INR is2.5-3.5 for patients wiht mechanical heart valves.While on warfarin.POCT-GLUCOSE [id number] 21:44:00 Test Item Value Reference Range Comments POC-GLUCOSE METER (BEAKER) 242 mg/dL 70-110 TESTED AT [address] (test mxco=2405) [facility] [address] [id number] 21:02:00 Test Item Value Reference Range Comments PARTIAL THROMBOPLASTIN TIME (BEAKER) (test 59.9 seconds 22.5-36.0 efjf=351) POCT-GLUCOSE [id number] 16:52:00 Test Item Value Reference Range Comments POC-GLUCOSE METER (BEAKER) 130 mg/dL 70-110 TESTED AT [address] (test ukfq=7046) [place] [address] HEPARIN [id number] 14:23:00 Test Item Value Reference Range Comments HEPARIN ANTIBODY (BEAKER) Positive-See Serotonin Release Negative (test zjms=606) Assay for Confirmation HEPARIN ANTIBODY OD (BEAKER) 0.516 <0.400 (test ryxr=6218) 4T TOTAL SCORE (BEAKER) 6 (test qcff=0076) Probability of HIT based on scoring system: 6-8=High probability; 4-5= intermediate probability; 0-3=low probabilityPERIPHERAL BLOOD SMEAR - HOLD [id number] 14:09:00 Test Item Value Reference Range Comments PERIPHERAL SMEAR SAVE (AKER) (test oqaj=9790) SAVE [id number] 13:57:00 Test Item Value Reference Range Comments PARTIAL THROMBOPLASTIN TIME (BEAKER) (test 50.3 seconds 22.5-36.0 drwl=240) POCT-GLUCOSE [id number] 12:31:00 Test Item Value Reference Range Comments POC-GLUCOSE METER (BEAKER) 90 mg/dL 70-110 TESTED AT [address] (test zjca=7588) [place] [address] CARDIOLIPIN ANTIBODIES, IGG AND [id number] 10:36:00 Test Item Value Reference Range Comments ANTICARDIOLIPIN IGG ANTIBODY (BEAKER) (test < GPL <20.0 feaz=680) ANTICARDIOLIPIN IGM ANTIBODY (AKER) (test 0.6 MPL <20.0 zhhr=046) Anticardiolipin IgG Result Interpretation: <20.0 GPL Normal>/=20.0 GPL PositiveAnticardiolipin IgM Result Interpretation: <20.0 MPL Normal>/= 20.0 MPL [id number] 08:20:00 Test Item Value Reference Range Comments PARTIAL THROMBOPLASTIN TIME (BEAKER) (test 47.3 seconds 22.5-36.0 aubr=935) POCT-GLUCOSE [id number] 07:52:00 Test Item Value Reference Range Comments POC-GLUCOSE METER (BEAKER) 90 mg/dL 70-110 TESTED AT [address] (test ygif=5604) [place] [address] COMPREHENSIVE METABOLIC [id number] 04:34:00 Test Item Value Reference Range Comments TOTAL PROTEIN (BEAKER) 6.1 gm/dL 6.0-8.3 (test kfvv=960) ALBUMIN (BEAKER) (test 3.0 g/dL 3.5-5.0 gfym=1327) ALKALINE PHOSPHATASE 81 U/L 40-150 (BEAKER) (test lmkp=253) BILIRUBIN TOTAL (BEAKER) 6.0 mg/dL 0.2-1.2 (test gjtk=740) SODIUM (BEAKER) (test 136 meq/L 136-145 gjvz=627) POTASSIUM (BEAKER) (test 4.1 meq/L 3.5-5.1 unng=580) CHLORIDE (BEAKER) (test 98 meq/L 98-107 xeqj=794) CO2 (BEAKER) (test 26 meq/L 22-29 lsmy=298) BLOOD UREA NITROGEN 54 mg/dL 7-21 (BEAKER) (test hzgy=374) CREATININE (BEAKER) (test 6.38 mg/dL 0.57-1.25 ofgi=275) GLUCOSE RANDOM (BEAKER) 123 mg/dL 70-105 (test lasp=104) CALCIUM (BEAKER) (test 9.0 mg/dL 8.4-10.2 waoi=327) AST (SGOT) (BEAKER) (test 44 U/L 5-34 oizy=460) ALT (SGPT) (BEAKER) (test 224 U/L 6-55 cfet=630) EGFR (BEAKER) (test 9 mL/min/1.73 sq m ESTIMATED GFR IS NOT xdmw=8350) ACCURATE CREATININE CLEARANCE IN PREDICTING GLOMERULAR FILTRATION RATE. ESTIMATED GFR IS NOT APPLICABLE FOR DIALYSIS PATIENTS. Specimen moderately [id number] 04:27:00 Test Item Value Reference Range Comments MAGNESIUM (BEAKER) (test gpkc=553) 2.1 mg/dL 1.6-2.6 CBC W/PLT COUNT & AUTO [id number] 03:53:00 Test Item Value Reference Range Comments WHITE BLOOD CELL COUNT (BEAKER) (test fcvn=477) 10.5 K/ L 3.5-10.5 RED BLOOD CELL COUNT (BEAKER) (test rqnh=116) 3.90 M/ L 4.63-6.08 HEMOGLOBIN (BEAKER) (test uezd=237) 12.2 GM/DL 13.7-17.5 HEMATOCRIT (BEAKER) (test tcxx=067) 37.0 % 40.1-51.0 MEAN CORPUSCULAR VOLUME (BEAKER) (test utui=733) 94.9 fL 79.0-92.2 MEAN CORPUSCULAR HEMOGLOBIN (BEAKER) (test 31.3 pg 25.7-32.2 vbsq=672) MEAN CORPUSCULAR HEMOGLOBIN CONC (BEAKER) (test 33.0 GM/DL 32.3-36.5 pmlw=132) RED CELL DISTRIBUTION WIDTH (BEAKER) (test 20.5 % 11.6-14.4 vflf=620) PLATELET COUNT (BEAKER) (test qnke=635) 87 K/CU MM 150-450 MEAN PLATELET VOLUME (BEAKER) (test dxny=802) 11.5 fL 9.4-12.4 NUCLEATED RED BLOOD CELLS (BEAKER) (test 0 /100 WBC 0-0 glmq=727) NEUTROPHILS RELATIVE PERCENT (BEAKER) (test 84 % avvh=466) LYMPHOCYTES RELATIVE PERCENT (BEAKER) (test 4 % vgog=646) MONOCYTES RELATIVE PERCENT (BEAKER) (test 10 % mrms=761) EOSINOPHILS RELATIVE PERCENT (BEAKER) (test 1 % oyvl=338) BASOPHILS RELATIVE PERCENT (BEAKER) (test 0 % xqmz=268) NEUTROPHILS ABSOLUTE COUNT (BEAKER) (test 8.79 K/ L 1.78-5.38 fyjy=417) LYMPHOCYTES ABSOLUTE COUNT (BEAKER) (test 0.44 K/ L 1.32-3.57 peuh=948) MONOCYTES ABSOLUTE COUNT (BEAKER) (test jrta=787) 1.03 K/ L 0.30-0.82 EOSINOPHILS ABSOLUTE COUNT (BEAKER) (test 0.11 K/ L 0.04-0.54 nvad=045) BASOPHILS ABSOLUTE COUNT (BEAKER) (test xnjy=793) 0.01 K/ L 0.01-0.08 IMMATURE GRANULOCYTES-RELATIVE PERCENT (BEAKER) 1 % 0-1 (test gifb=8404) [id number] 03:52:00 Test Item Value Reference Range Comments PARTIAL THROMBOPLASTIN TIME (BEAKER) (test 56.9 seconds 22.5-36.0 ovgr=739) 4 hours after the start of continuous infusion and 4 hours after any rate changeWhile on warfarin.PROTHROMBIN [id number] 03:51:00 Test Item Value Reference Range Comments PROTIME (BEAKER) (test xsvp=288) 17.2 seconds 11.9-14.2 INR (BEAKER) (test uaer=509) 1.5 <=5.9 Effective 07/29/2018: PT Reference Range ChangeNew: 11.9-14.2 Previous: 11.7- 14.7RECOMMENDED COUMADIN/WARFARIN INR THERAPY RANGESSTANDARD DOSE: 2.0-3.0 Includes: PROPHYLAXIS for venous thrombosis, systemic embolization; TREATMENT for venous thrombosis and/or pulmonary embolus.HIGH RISK: Target INR is2.5-3.5 for patients wiht mechanical heart valves.4 hours after the start of continuous infusion and4 hours after any rate changeWhile on warfarin.POCT-GLUCOSE [id number] 23:01:00 Test Item Value Reference Range Comments POC-GLUCOSE METER (BEAKER) 147 mg/dL 70-110 TESTED AT [address] (test gbia=5467) [facility] [address] [id number] 21:35:00 Test Item Value Reference Range Comments PARTIAL THROMBOPLASTIN TIME (BEAKER) (test 33.6 seconds 22.5-36.0 hhil=337) BLOOD [id number] 20:01:00 Test Item Value Reference Range Comments CULTURE (BEAKER) (test vvkt=3784) No growth in 5 days PERIPHERAL BLOOD SMEAR - PATHOLOGIST [id number] 17:51:00 Test Item Value Reference Range Comments RBC MORPHOLOGY (BEAKER) Hypochromic, macrocytic (test nmyy=4254) anemia with mild anisopoikilocytosis, including echinocytes and occasional elliptocytes. Rare schistocytes. Increased polychromasia. WBC MORPHOLOGY (BEAKER) Increased. Primarily (test mbbg=9198) comprised by neutrophils, few with toxic granulation features. PLT MORPHOLOGY (BEAKER) Decrease with normal (test qtwe=7054) granular morphology. Occasional large and rare giant forms. No significant platelet aggregates/clumping identified. [id number] Jon Roger MD (BEAKER) (test hjal=7504) (electronic signature) [id number] 16:42:00 Test Item Value Reference Range Comments FERRITIN (BEAKER) (test olwq=987) 3900 ng/mL 5-275 POCT-GLUCOSE [id number] 16:28:00 Test Item Value Reference Range Comments POC-GLUCOSE METER (BEAKER) 100 mg/dL 70-110 TESTED AT [address] (test junu=8392) [place] [address] VITAMIN B12 AND [id number] 15:22:00 Test Item Value Reference Range Comments VITAMIN B12 (BEAKER) (test kfri=338) > pg/mL 213-816 FOLATE (BEAKER) (test xjmy=521) 7.7 ng/mL >=7.0 IMMUNOGLOBULIN G (IGG)2018-08-03 14:38:00 Test Item Value Reference Range Comments IMMUNOGLOBULIN G (IGG) (BEAKER) (test vnqx=567) 1163 mg/dL 540-1,822 IMMUNOGLOBULIN M (IGM)2018-08-03 14:38:00 Test Item Value Reference Range Comments IMMUNOGLOBULIN M (IGM) (BEAKER) (test uhdw=746) 86 mg/dL 22-293 IMMUNOGLOBULIN A (IGA)2018-08-03 14:38:00 Test Item Value Reference Range Comments IMMUNOGLOBULIN A (IGA) (BEAKER) (test tmck=778) 222 mg/dL 63-484 IRON, TIBC, % SAT. (WITHOUT FERRITIN)2018-08-03 14:38:00 Test Item Value Reference Range Comments IRON (BEAKER) (test rdss=718) 29.0 ug/dL 40.0-160.0 TOTAL IRON BINDING CAPACITY (BEAKER) (test 186 ug/dL 250-450 vwou=063) IRON % SATURATION (2) (BEAKER) (test aaqf=8106) 16 % 20-55 POCT-GLUCOSE [id number] 12:40:00 Test Item Value Reference Range Comments POC-GLUCOSE METER (BEAKER) 118 mg/dL 70-110 TESTED AT [address] (test afze=1474) [facility] [address] CBC W/PLT COUNT & AUTO [id number] 11:38:00 Test Item Value Reference Range Comments WHITE BLOOD CELL COUNT (BEAKER) (test cpkj=738) 12.6 K/ L 3.5-10.5 RED BLOOD CELL COUNT (BEAKER) (test bumc=437) 3.87 M/ L 4.63-6.08 HEMOGLOBIN (BEAKER) (test tjym=484) 12.4 GM/DL 13.7-17.5 HEMATOCRIT (BEAKER) (test sqxv=406) 36.5 % 40.1-51.0 MEAN CORPUSCULAR VOLUME (BEAKER) (test fhlv=613) 94.3 fL 79.0-92.2 MEAN CORPUSCULAR HEMOGLOBIN (BEAKER) (test 32.0 pg 25.7-32.2 lnnv=468) MEAN CORPUSCULAR HEMOGLOBIN CONC (BEAKER) (test 34.0 GM/DL 32.3-36.5 mzcq=122) RED CELL DISTRIBUTION WIDTH (BEAKER) (test 20.3 % 11.6-14.4 owiv=923) PLATELET COUNT (BEAKER) (test vogb=591) 97 K/CU MM 150-450 MEAN PLATELET VOLUME (BEAKER) (test vyqn=404) 11.5 fL 9.4-12.4 NUCLEATED RED BLOOD CELLS (BEAKER) (test 0 /100 WBC 0-0 hlka=895) NEUTROPHILS RELATIVE PERCENT (BEAKER) (test 83 % lgmn=363) LYMPHOCYTES RELATIVE PERCENT (BEAKER) (test 5 % eflp=324) MONOCYTES RELATIVE PERCENT (BEAKER) (test 10 % owos=365) EOSINOPHILS RELATIVE PERCENT (BEAKER) (test 1 % lcov=812) BASOPHILS RELATIVE PERCENT (BEAKER) (test 0 % ljrz=454) NEUTROPHILS ABSOLUTE COUNT (BEAKER) (test 10.45 K/ L 1.78-5.38 uzzg=685) LYMPHOCYTES ABSOLUTE COUNT (BEAKER) (test 0.63 K/ L 1.32-3.57 gqcm=242) MONOCYTES ABSOLUTE COUNT (BEAKER) (test jxrk=539) 1.21 K/ L 0.30-0.82 EOSINOPHILS ABSOLUTE COUNT (BEAKER) (test 0.18 K/ L 0.04-0.54 mwnw=056) BASOPHILS ABSOLUTE COUNT (BEAKER) (test kdeo=031) 0.01 K/ L 0.01-0.08 IMMATURE GRANULOCYTES-RELATIVE PERCENT (BEAKER) 1 % 0-1 (test gqap=0238) [id number] 09:34:00 Test Item Value Reference Range Comments PARTIAL THROMBOPLASTIN TIME (BEAKER) (test 56.9 seconds 22.5-36.0 niov=076) POCT-GLUCOSE [id number] 08:07:00 Test Item Value Reference Range Comments POC-GLUCOSE METER (BEAKER) 117 mg/dL 70-110 TESTED AT [facility] [address] [facility] (test amaw=3744) [facility] [address] COMPREHENSIVE METABOLIC [id number] 03:40:00 Test Item Value Reference Range Comments TOTAL PROTEIN (BEAKER) 6.0 gm/dL 6.0-8.3 (test bnpr=295) ALBUMIN (BEAKER) (test 3.1 g/dL 3.5-5.0 udec=9960) ALKALINE PHOSPHATASE 87 U/L 40-150 (BEAKER) (test aemg=728) BILIRUBIN TOTAL (BEAKER) 5.1 mg/dL 0.2-1.2 (test ycez=244) SODIUM (BEAKER) (test 132 meq/L 136-145 yxsa=295) POTASSIUM (BEAKER) (test 4.8 meq/L 3.5-5.1 aqon=076) CHLORIDE (BEAKER) (test 95 meq/L 98-107 duig=750) CO2 (BEAKER) (test 21 meq/L 22-29 sxur=746) BLOOD UREA NITROGEN 88 mg/dL 7-21 (BEAKER) (test lhxk=755) CREATININE (BEAKER) (test 8.78 mg/dL 0.57-1.25 ulqf=446) GLUCOSE RANDOM (BEAKER) 154 mg/dL 70-105 (test jzhv=249) CALCIUM (BEAKER) (test 9.2 mg/dL 8.4-10.2 xumm=376) AST (SGOT) (BEAKER) (test 78 U/L 5-34 ezhx=321) ALT (SGPT) (BEAKER) (test 320 U/L 6-55 mdxz=393) EGFR (BEAKER) (test 6 mL/min/1.73 sq m ESTIMATED GFR IS NOT dfbq=7895) ACCURATE CREATININE CLEARANCE IN PREDICTING GLOMERULAR FILTRATION RATE. ESTIMATED GFR IS NOT APPLICABLE FOR DIALYSIS PATIENTS. Specimen moderately [id number] 03:26:00 Test Item Value Reference Range Comments PHOSPHORUS (BEAKER) (test sbgw=358) 9.7 mg/dL 2.3-4.7 PROTHROMBIN [id number] 03:20:00 Test Item Value Reference Range Comments PROTIME (BEAKER) (test wqlc=683) 15.3 seconds 11.9-14.2 INR (BEAKER) (test hiaz=923) 1.3 <=5.9 Effective 07/29/2018: PT Reference Range ChangeNew: 11.9-14.2 Previous: 11.7- 14.7RECOMMENDED COUMADIN/WARFARIN INR THERAPY RANGESSTANDARD DOSE: 2.0-3.0 Includes: PROPHYLAXIS for venous thrombosis, systemic embolization; TREATMENT for venous thrombosis and/or pulmonary embolus.HIGH RISK: Target INR is2.5-3.5 for patients wiht mechanical heart valves.While on warfarin.[id number] 02:42:00 Test Item Value Reference Range Comments MAGNESIUM (BEAKER) (test kkry=936) 2.6 mg/dL 1.6-2.6 [id number] 02:37:00 Test Item Value Reference Range Comments PARTIAL THROMBOPLASTIN TIME (BEAKER) (test 59.7 seconds 22.5-36.0 djbf=605) POCT-GLUCOSE [id number] 21:25:00 Test Item Value Reference Range Comments POC-GLUCOSE METER (BEAKER) 153 mg/dL 70-110 TESTED AT [address] (test lltk=3942) [place] [id number] POCT-GLUCOSE [id number] 18:23:00 Test Item Value Reference Range Comments POC-GLUCOSE METER (BEAKER) 179 mg/dL 70-110 TESTED AT [address] (test ecdx=7115) [place] [id number] POCT-GLUCOSE [id number] 14:45:00 Test Item Value Reference Range Comments POC-GLUCOSE METER (BEAKER) 198 mg/dL 70-110 TESTED AT [address] (test nfbw=5379) [place] [address] POCT-GLUCOSE [id number] 09:20:00 Test Item Value Reference Range Comments POC-GLUCOSE METER (BEAKER) 196 mg/dL 70-110 TESTED AT [address] (test jdff=0078) [place] [address] CBC W/PLT COUNT & AUTO [id number] 05:23:00 Test Item Value Reference Range Comments WHITE BLOOD CELL COUNT (BEAKER) (test qchf=425) 13.2 K/ L 3.5-10.5 RED BLOOD CELL COUNT (BEAKER) (test vojr=127) 4.01 M/ L 4.63-6.08 HEMOGLOBIN (BEAKER) (test moco=673) 12.6 GM/DL 13.7-17.5 HEMATOCRIT (BEAKER) (test rtgt=982) 39.0 % 40.1-51.0 MEAN CORPUSCULAR VOLUME (BEAKER) (test wjqq=092) 97.3 fL 79.0-92.2 MEAN CORPUSCULAR HEMOGLOBIN (BEAKER) (test 31.4 pg 25.7-32.2 cqie=021) MEAN CORPUSCULAR HEMOGLOBIN CONC (BEAKER) (test 32.3 GM/DL 32.3-36.5 luhb=138) RED CELL DISTRIBUTION WIDTH (BEAKER) (test 20.0 % 11.6-14.4 vimh=176) PLATELET COUNT (BEAKER) (test slpc=092) 112 K/CU MM 150-450 MEAN PLATELET VOLUME (BEAKER) (test lajw=481) 11.9 fL 9.4-12.4 NUCLEATED RED BLOOD CELLS (BEAKER) (test 0 /100 WBC 0-0 dxdw=459) NEUTROPHILS RELATIVE PERCENT (BEAKER) (test 84 % safm=823) LYMPHOCYTES RELATIVE PERCENT (BEAKER) (test 4 % bejj=591) MONOCYTES RELATIVE PERCENT (BEAKER) (test 10 % rlst=234) EOSINOPHILS RELATIVE PERCENT (BEAKER) (test 1 % nmsl=415) BASOPHILS RELATIVE PERCENT (BEAKER) (test 0 % mztu=812) NEUTROPHILS ABSOLUTE COUNT (BEAKER) (test 11.13 K/ L 1.78-5.38 jpey=199) LYMPHOCYTES ABSOLUTE COUNT (BEAKER) (test 0.55 K/ L 1.32-3.57 xvqq=961) MONOCYTES ABSOLUTE COUNT (BEAKER) (test 1.27 K/ L 0.30-0.82 umns=207) EOSINOPHILS ABSOLUTE COUNT (BEAKER) (test 0.10 K/ L 0.04-0.54 ebja=362) BASOPHILS ABSOLUTE COUNT (BEAKER) (test 0.02 K/ L 0.01-0.08 cgaj=390) IMMATURE GRANULOCYTES-RELATIVE PERCENT (BEAKER) 1 % 0-1 (test msff=2675) [id number] 05:14:00 Test Item Value Reference Range Comments PHOSPHORUS (BEAKER) (test xlcm=924) 9.0 mg/dL 2.3-4.7 COMPREHENSIVE METABOLIC [id number] 05:11:00 Test Item Value Reference Range Comments TOTAL PROTEIN (BEAKER) 6.1 gm/dL 6.0-8.3 (test ynce=666) ALBUMIN (BEAKER) (test 3.2 g/dL 3.5-5.0 nand=1532) ALKALINE PHOSPHATASE 74 U/L 40-150 (BEAKER) (test xiva=759) BILIRUBIN TOTAL (BEAKER) 4.8 mg/dL 0.2-1.2 (test dbtq=355) SODIUM (BEAKER) (test 134 meq/L 136-145 fatj=398) POTASSIUM (BEAKER) (test 4.6 meq/L 3.5-5.1 fgac=768) CHLORIDE (BEAKER) (test 98 meq/L 98-107 hkjj=015) CO2 (BEAKER) (test 21 meq/L 22-29 zpvu=296) BLOOD UREA NITROGEN 72 mg/dL 7-21 (BEAKER) (test tlum=917) CREATININE (BEAKER) (test 8.05 mg/dL 0.57-1.25 mrnz=700) GLUCOSE RANDOM (BEAKER) 176 mg/dL 70-105 (test kavz=097) CALCIUM (BEAKER) (test 9.4 mg/dL 8.4-10.2 gdsb=666) AST (SGOT) (BEAKER) (test 103 U/L 5-34 bbjg=548) ALT (SGPT) (BEAKER) (test 471 U/L 6-55 wanj=059) EGFR (BEAKER) (test 7 mL/min/1.73 sq m ESTIMATED GFR IS NOT rzss=6695) ACCURATE CREATININE CLEARANCE IN PREDICTING GLOMERULAR FILTRATION RATE. ESTIMATED GFR IS NOT APPLICABLE FOR DIALYSIS PATIENTS. Specimen moderately [id number] 05:09:00 Test Item Value Reference Range Comments MAGNESIUM (BEAKER) (test hdre=184) 2.4 mg/dL 1.6-2.6 [id number] 05:04:00 Test Item Value Reference Range Comments PARTIAL THROMBOPLASTIN TIME (BEAKER) (test 68.6 seconds 22.5-36.0 dvuy=211) While on warfarin.PROTHROMBIN [id number] 05:03:00 Test Item Value Reference Range Comments PROTIME (BEAKER) (test skrt=579) 16.5 seconds 11.9-14.2 INR (BEAKER) (test qwwb=989) 1.4 <=5.9 Effective 07/29/2018: PT Reference Range ChangeNew: 11.9-14.2 Previous: 11.7- 14.7RECOMMENDED COUMADIN/WARFARIN INR THERAPY RANGESSTANDARD DOSE: 2.0-3.0 Includes: PROPHYLAXIS for venous thrombosis, systemic embolization; TREATMENT for venous thrombosis and/or pulmonary embolus.HIGH RISK: Target INR is2.5-3.5 for patients wiht mechanical heart valves.While on warfarin.POCT-GLUCOSE [id number] 17:50:00 Test Item Value Reference Range Comments POC-GLUCOSE METER (BEAKER) 202 mg/dL 70-110 TESTED AT [address] (test wkto=3908) [place] [id number] POCT-GLUCOSE [id number] 11:57:00 Test Item Value Reference Range Comments POC-GLUCOSE METER (BEAKER) 144 mg/dL 70-110 TESTED AT [address] (test jaoq=6131) [place] [id number] POCT-GLUCOSE [id number] 07:43:00 Test Item Value Reference Range Comments POC-GLUCOSE METER (BEAKER) 143 mg/dL 70-110 TESTED AT [address] (test mdvg=7248) [place] [id number] COMPREHENSIVE METABOLIC [id number] 06:25:00 Test Item Value Reference Range Comments TOTAL PROTEIN (BEAKER) 5.8 gm/dL 6.0-8.3 (test lkme=555) ALBUMIN (BEAKER) (test 3.1 g/dL 3.5-5.0 xbnz=9642) ALKALINE PHOSPHATASE 73 U/L 40-150 (BEAKER) (test lkar=961) BILIRUBIN TOTAL (BEAKER) 3.9 mg/dL 0.2-1.2 (test raix=082) SODIUM (BEAKER) (test 139 meq/L 136-145 ppfi=013) POTASSIUM (BEAKER) (test 4.5 meq/L 3.5-5.1 zmsl=392) CHLORIDE (BEAKER) (test 102 meq/L 98-107 ojpd=325) CO2 (BEAKER) (test 23 meq/L 22-29 dpqc=992) BLOOD UREA NITROGEN 54 mg/dL 7-21 (BEAKER) (test znwg=304) CREATININE (BEAKER) (test 6.73 mg/dL 0.57-1.25 wggp=548) GLUCOSE RANDOM (BEAKER) 134 mg/dL 70-105 (test xsvb=797) CALCIUM (BEAKER) (test 9.3 mg/dL 8.4-10.2 mkfo=863) AST (SGOT) (BEAKER) (test 140 U/L 5-34 orot=534) ALT (SGPT) (BEAKER) (test 598 U/L 6-55 gjon=910) EGFR (BEAKER) (test 8 mL/min/1.73 sq m ESTIMATED GFR IS NOT zbai=9610) ACCURATE CREATININE CLEARANCE IN PREDICTING GLOMERULAR FILTRATION RATE. ESTIMATED GFR IS NOT APPLICABLE FOR DIALYSIS PATIENTS. Specimen slightly ictericHEPATIC FUNCTION [id number] 06:15:00 Test Item Value Reference Range Comments TOTAL PROTEIN (BEAKER) (test jwzx=447) 5.8 gm/dL 6.0-8.3 ALBUMIN (BEAKER) (test sjam=4505) 3.1 g/dL 3.5-5.0 BILIRUBIN TOTAL (BEAKER) (test ipxz=951) 3.9 mg/dL 0.2-1.2 BILIRUBIN DIRECT (BEAKER) (test hthu=102) 2.4 mg/dL 0.1-0.5 ALKALINE PHOSPHATASE (BEAKER) (test okqi=734) 73 U/L 40-150 AST (SGOT) (BEAKER) (test oivl=973) 140 U/L 5-34 ALT (SGPT) (BEAKER) (test gijf=320) 598 U/L 6-55 Specimen slightly ictericCBC W/PLT COUNT & AUTO [id number] 06:01 :00 Test Item Value Reference Range Comments WHITE BLOOD CELL COUNT (BEAKER) (test wqqo=160) 12.1 K/ L 3.5-10.5 RED BLOOD CELL COUNT (BEAKER) (test eufy=706) 4.15 M/ L 4.63-6.08 HEMOGLOBIN (BEAKER) (test rmqa=822) 12.9 GM/DL 13.7-17.5 HEMATOCRIT (BEAKER) (test dqtk=649) 40.9 % 40.1-51.0 MEAN CORPUSCULAR VOLUME (BEAKER) (test wwwc=272) 98.6 fL 79.0-92.2 MEAN CORPUSCULAR HEMOGLOBIN (BEAKER) (test 31.1 pg 25.7-32.2 zafo=487) MEAN CORPUSCULAR HEMOGLOBIN CONC (BEAKER) (test 31.5 GM/DL 32.3-36.5 xtak=899) RED CELL DISTRIBUTION WIDTH (BEAKER) (test 20.1 % 11.6-14.4 crgv=598) PLATELET COUNT (BEAKER) (test ehvn=559) 105 K/CU MM 150-450 MEAN PLATELET VOLUME (BEAKER) (test updk=317) 11.2 fL 9.4-12.4 NUCLEATED RED BLOOD CELLS (BEAKER) (test 1 /100 WBC 0-0 bspm=572) NEUTROPHILS RELATIVE PERCENT (BEAKER) (test 85 % dhxe=054) LYMPHOCYTES RELATIVE PERCENT (BEAKER) (test 4 % jbbe=044) MONOCYTES RELATIVE PERCENT (BEAKER) (test 9 % udnm=356) EOSINOPHILS RELATIVE PERCENT (BEAKER) (test 1 % frse=025) BASOPHILS RELATIVE PERCENT (BEAKER) (test 0 % ynzk=762) NEUTROPHILS ABSOLUTE COUNT (BEAKER) (test 10.25 K/ L 1.78-5.38 sddq=130) LYMPHOCYTES ABSOLUTE COUNT (BEAKER) (test 0.46 K/ L 1.32-3.57 ocla=718) MONOCYTES ABSOLUTE COUNT (BEAKER) (test 1.13 K/ L 0.30-0.82 pxiv=246) EOSINOPHILS ABSOLUTE COUNT (BEAKER) (test 0.10 K/ L 0.04-0.54 ncta=807) BASOPHILS ABSOLUTE COUNT (BEAKER) (test 0.03 K/ L 0.01-0.08 eoio=919) IMMATURE GRANULOCYTES-RELATIVE PERCENT (BEAKER) 1 % 0-1 (test ggjd=2492) [id number] 06:00:00 Test Item Value Reference Range Comments PARTIAL THROMBOPLASTIN TIME (BEAKER) (test 71.3 seconds 22.5-36.0 dijx=591) While on warfarin.PROTHROMBIN [id number] 05:59:00 Test Item Value Reference Range Comments PROTIME (BEAKER) (test qkxk=056) 18.5 seconds 11.9-14.2 INR (BEAKER) (test edtz=216) 1.6 <=5.9 Effective 07/29/2018: PT Reference Range ChangeNew: 11.9-14.2 Previous: 11.7- 14.7RECOMMENDED COUMADIN/WARFARIN INR THERAPY RANGESSTANDARD DOSE: 2.0-3.0 Includes: PROPHYLAXIS for venous thrombosis, systemic embolization; TREATMENT for venous thrombosis and/or pulmonary embolus.HIGH RISK: Target INR is2.5-3.5 for patients wiht mechanical heart valves.While on warfarin.BLOOD [id number] 02:00:00 Test Item Value Reference Range Comments CULTURE (BEAKER) (test fhjq=4361) No growth in 5 days [id number] 00:14:00 Test Item Value Reference Range Comments PARTIAL THROMBOPLASTIN TIME (BEAKER) (test 90.2 seconds 22.5-36.0 voxd=112) POCT-GLUCOSE [id number] 23:48:00 Test Item Value Reference Range Comments POC-GLUCOSE METER (BEAKER) 130 mg/dL 70-110 TESTED AT [address] (test ouxq=0905) [place] [id number] POCT-GLUCOSE [id number] 18:15:00 Test Item Value Reference Range Comments POC-GLUCOSE METER (BEAKER) 122 mg/dL 70-110 TESTED AT [address] (test vyim=0438) [facility] [address] [id number] 17:13:00 Test Item Value Reference Range Comments PARTIAL THROMBOPLASTIN TIME (BEAKER) (test 110.6 seconds 22.5-36.0 tjfo=152) RAD, CHEST, 1 VIEW, NON [id number] 15:38:00Reason for exam:->Central line placementShould this be [...] MDReport Verified Date/Time: 07/31/2018 15:38:10 Reading Location: [place] [id number] Consult Reading Room [id number] 11:49:00 Test Item Value Reference Range Comments PARTIAL THROMBOPLASTIN TIME (BEAKER) (test 88.8 seconds 22.5-36.0 igzr=550) POCT-GLUCOSE [id number] 11:46:00 Test Item Value Reference Range Comments POC-GLUCOSE METER (BEAKER) 145 mg/dL 70-110 TESTED AT [address] (test oqul=5228) [facility] [address] CT, BRAIN, WITHOUT [id number] 10:24:00FINAL REPORT CT Head without contrast CLINICAL [...] infarct, hemorrhage, or hydrocephalus. Signed: Stephanie Santacruz Verified Date/Time: 07/31/2018 10 :24:48 Reading Location: [facility] C013V Neuro Reading Room [id number] 10:15:00 Test Item Value Reference Range Comments AMMONIA (BEAKER) (test bypa=645) 46 mol/L 18-72 BLOOD GAS, [id number] 08:44:00 Test Item Value Reference Range Comments PH ARTERIAL (BEAKER) (test mpnf=971) 7.37 7.35-7.45 PCO2 ARTERIAL (BEAKER) (test jozh=365) 44 mmHg 35-45 PO2 ARTERIAL (BEAKER) (test vpwn=476) 229 mmHg 80-90 O2 SATURATION ARTERIAL (BEAKER) (test pvis=818) 99.5 % 96.0-97.0 HCO3 ARTERIAL (BEAKER) (test awkq=597) 25 mmol/L 21-29 BASE EXCESS ARTERIAL (BEAKER) (test acno=293) -0.7 mmol/L -2.0-3.0 PATIENT TEMPERATURE (BEAKER) (test rugf=2006) 37.0 C FIO2 (BEAKER) (test wyjk=2400) 21.0 % POCT-GLUCOSE [id number] 08:22:00 Test Item Value Reference Range Comments POC-GLUCOSE METER (BEAKER) 170 mg/dL 70-110 TESTED AT [address] (test weep=4468) [place] [id number] POCT-GLUCOSE [id number] 05:39:00 Test Item Value Reference Range Comments POC-GLUCOSE METER (BEAKER) 163 mg/dL 70-110 TESTED AT [address] (test fjgt=8123) [facility] [address] CBC W/PLT COUNT & AUTO [id number] 05:18:00 Test Item Value Reference Range Comments WHITE BLOOD CELL COUNT (BEAKER) (test zuab=918) 11.9 K/ L 3.5-10.5 RED BLOOD CELL COUNT (BEAKER) (test kuqc=398) 3.71 M/ L 4.63-6.08 HEMOGLOBIN (BEAKER) (test xpua=307) 11.4 GM/DL 13.7-17.5 HEMATOCRIT (BEAKER) (test zeiu=266) 35.1 % 40.1-51.0 MEAN CORPUSCULAR VOLUME (BEAKER) (test tmxz=911) 94.6 fL 79.0-92.2 MEAN CORPUSCULAR HEMOGLOBIN (BEAKER) (test 30.7 pg 25.7-32.2 ttvo=453) MEAN CORPUSCULAR HEMOGLOBIN CONC (BEAKER) (test 32.5 GM/DL 32.3-36.5 pfdy=068) RED CELL DISTRIBUTION WIDTH (BEAKER) (test 18.1 % 11.6-14.4 onuu=868) PLATELET COUNT (BEAKER) (test skhz=159) 112 K/CU MM 150-450 MEAN PLATELET VOLUME (BEAKER) (test wshv=873) 10.8 fL 9.4-12.4 NUCLEATED RED BLOOD CELLS (BEAKER) (test 1 /100 WBC 0-0 gite=669) NEUTROPHILS RELATIVE PERCENT (BEAKER) (test 81 % gbuy=978) LYMPHOCYTES RELATIVE PERCENT (BEAKER) (test 7 % cvif=645) MONOCYTES RELATIVE PERCENT (BEAKER) (test 9 % qplq=402) EOSINOPHILS RELATIVE PERCENT (BEAKER) (test 1 % rdbj=114) BASOPHILS RELATIVE PERCENT (BEAKER) (test 0 % nnts=365) NEUTROPHILS ABSOLUTE COUNT (BEAKER) (test 9.72 K/ L 1.78-5.38 halc=767) LYMPHOCYTES ABSOLUTE COUNT (BEAKER) (test 0.86 K/ L 1.32-3.57 cxjl=497) MONOCYTES ABSOLUTE COUNT (BEAKER) (test 1.09 K/ L 0.30-0.82 vavv=214) EOSINOPHILS ABSOLUTE COUNT (BEAKER) (test 0.09 K/ L 0.04-0.54 brbi=819) BASOPHILS ABSOLUTE COUNT (BEAKER) (test 0.01 K/ L 0.01-0.08 spkx=563) IMMATURE GRANULOCYTES-RELATIVE PERCENT (BEAKER) 1 % 0-1 (test hyup=6516) [id number] 05:12:00 Test Item Value Reference Range Comments PHOSPHORUS (BEAKER) (test 10.1 mg/dL 2.3-4.7 Specimen slightly hemolyzed hsnp=811) COMPREHENSIVE METABOLIC [id number] 05:12:00 Test Item Value Reference Range Comments TOTAL PROTEIN (BEAKER) 5.4 gm/dL 6.0-8.3 Specimen slightly (test ckrt=312) hemolyzed ALBUMIN (BEAKER) (test 3.0 g/dL 3.5-5.0 Specimen slightly rsar=6066) hemolyzed ALKALINE PHOSPHATASE 66 U/L 40-150 (BEAKER) (test oiaz=708) BILIRUBIN TOTAL (BEAKER) 3.6 mg/dL 0.2-1.2 Specimen slightly (test yizu=849) hemolyzed SODIUM (BEAKER) (test 133 meq/L 136-145 lmru=364) POTASSIUM (BEAKER) (test 4.0 meq/L 3.5-5.1 Specimen slightly kvtj=315) hemolyzed CHLORIDE (BEAKER) (test 95 meq/L 98-107 idqo=790) CO2 (BEAKER) (test 21 meq/L 22-29 mppg=157) BLOOD UREA NITROGEN 86 mg/dL 7-21 (BEAKER) (test umif=580) CREATININE (BEAKER) (test 8.92 mg/dL 0.57-1.25 Specimen slightly imdi=428) hemolyzed GLUCOSE RANDOM (BEAKER) 152 mg/dL 70-105 (test icaw=202) CALCIUM (BEAKER) (test 9.2 mg/dL 8.4-10.2 dehq=222) AST (SGOT) (BEAKER) (test 182 U/L 5-34 Specimen slightly tnhp=476) hemolyzed ALT (SGPT) (BEAKER) (test 694 U/L 6-55 Specimen slightly qbsh=457) hemolyzed EGFR (BEAKER) (test 6 mL/min/1.73 sq m ESTIMATED GFR IS NOT jdgf=5053) ACCURATE CREATININE CLEARANCE IN PREDICTING GLOMERULAR FILTRATION RATE. ESTIMATED GFR IS NOT APPLICABLE FOR DIALYSIS PATIENTS. Specimen slightly [id number] 05:08:00 Test Item Value Reference Range Comments MAGNESIUM (BEAKER) (test 2.7 mg/dL 1.6-2.6 Specimen slightly hemolyzed eepe=595) [id number] 04:52:00 Test Item Value Reference Range Comments PARTIAL THROMBOPLASTIN TIME (BEAKER) (test 70.9 seconds 22.5-36.0 syxm=666) While on warfarin.PROTHROMBIN [id number] 04:51:00 Test Item Value Reference Range Comments PROTIME (BEAKER) (test otdb=224) 19.8 seconds 11.9-14.2 INR (BEAKER) (test iixf=338) 1.8 <=5.9 Effective 07/29/2018: PT Reference Range ChangeNew: 11.9-14.2 Previous: 11.7- 14.7RECOMMENDED COUMADIN/WARFARIN INR THERAPY RANGESSTANDARD DOSE: 2.0-3.0 Includes: PROPHYLAXIS for venous thrombosis, systemic embolization; TREATMENT for venous thrombosis and/or pulmonary embolus.HIGH RISK: Target INR is2.5-3.5 for patients wiht mechanical heart valves.While on warfarin.POCT-GLUCOSE [id number] 23:36:00 Test Item Value Reference Range Comments POC-GLUCOSE METER (BEAKER) 190 mg/dL 70-110 TESTED AT [address] (test qdhf=3229) [place] [address] [id number] 22:33:00 Test Item Value Reference Range Comments PARTIAL THROMBOPLASTIN TIME (BEAKER) (test 57.7 seconds 22.5-36.0 gxos=222) POCT-GLUCOSE [id number] 18:20:00 Test Item Value Reference Range Comments POC-GLUCOSE METER (BEAKER) 170 mg/dL 70-110 TESTED AT [address] (test ptja=0863) [place] [address] [id number] 16:52:00 Test Item Value Reference Range Comments PARTIAL THROMBOPLASTIN TIME (BEAKER) (test 24.5 seconds 22.5-36.0 cskc=121) 6 hours after starting heparin infusion and as indicated per sliding scalePOCT- GLUCOSE [id number] 12:30:00 Test Item Value Reference Range Comments POC-GLUCOSE METER (BEAKER) 160 mg/dL 70-110 TESTED AT [address] (test iphu=8912) [place] [address] HIV-1 PCR, [id number] 10:23:00 Test Item Value Reference Range Comments HIV-1 NUMERIC RESULT (BEAKER) (test zzjd=7789) 1060 Cp/mL <20 This test uses a Real-Time Polymerase Chain Reaction (RT-PCR) methodology to detect a highly conserved region of the HIV-1 gag gene and was performed using the [employer] AmpliPrep/OLESYA TaqMan HIV-1 test kit version 2.0 ([employer]Reportable range for this assay is 20 - 10,000,000 copies per mL (1.3 - 7.0 Log copies/mL).COMPREHENSIVE METABOLIC [id number] 06:59:00 Test Item Value Reference Range Comments TOTAL PROTEIN (BEAKER) 6.1 gm/dL 6.0-8.3 Specimen slightly (test cgbk=420) hemolyzed ALBUMIN (BEAKER) (test 3.4 g/dL 3.5-5.0 Specimen slightly rvuo=3054) hemolyzed ALKALINE PHOSPHATASE 75 U/L 40-150 (BEAKER) (test nekt=338) BILIRUBIN TOTAL (BEAKER) 3.7 mg/dL 0.2-1.2 Specimen slightly (test devf=923) hemolyzed SODIUM (BEAKER) (test 136 meq/L 136-145 zzjo=896) POTASSIUM (BEAKER) (test 4.3 meq/L 3.5-5.1 Specimen slightly kwkk=037) hemolyzed CHLORIDE (BEAKER) (test 97 meq/L 98-107 wumq=308) CO2 (BEAKER) (test 20 meq/L 22-29 veba=297) BLOOD UREA NITROGEN 66 mg/dL 7-21 (BEAKER) (test troa=049) CREATININE (BEAKER) (test 7.56 mg/dL 0.57-1.25 Specimen slightly sdkr=053) hemolyzed GLUCOSE RANDOM (BEAKER) 139 mg/dL 70-105 (test tpcp=229) CALCIUM (BEAKER) (test 9.9 mg/dL 8.4-10.2 vpyx=516) AST (SGOT) (BEAKER) (test 376 U/L 5-34 Specimen slightly xmsj=368) hemolyzed ALT (SGPT) (BEAKER) (test 1109 U/L 6-55 Specimen slightly wxso=259) hemolyzed EGFR (BEAKER) (test 7 mL/min/1.73 sq m ESTIMATED GFR IS NOT dwxz=9872) ACCURATE CREATININE CLEARANCE IN PREDICTING GLOMERULAR FILTRATION RATE. ESTIMATED GFR IS NOT APPLICABLE FOR DIALYSIS PATIENTS. Specimen slightly [id number] 06:51:00 Test Item Value Reference Range Comments MAGNESIUM (BEAKER) (test 2.4 mg/dL 1.6-2.6 Specimen slightly hemolyzed mkds=613) PROTHROMBIN [id number] 06:44:00 Test Item Value Reference Range Comments PROTIME (BEAKER) (test tnco=053) 20.7 seconds 11.9-14.2 INR (BEAKER) (test dvnp=190) 1.9 <=5.9 Effective 07/29/2018: PT Reference Range ChangeNew: 11.9-14.2 Previous: 11.7- 14.7RECOMMENDED COUMADIN/WARFARIN INR THERAPY RANGESSTANDARD DOSE: 2.0-3.0 Includes: PROPHYLAXIS for venous thrombosis, systemic embolization; TREATMENT for venous thrombosis and/or pulmonary embolus.HIGH RISK: Target INR is2.5-3.5 for patients wiht mechanical heart valves.[id number] 06:37:00 Test Item Value Reference Range Comments AMMONIA (BEAKER) (test 65 mol/L 18-72 Specimen slightly hemolyzed wzrt=987) CBC W/PLT COUNT & AUTO [id number] 06:31:00 Test Item Value Reference Range Comments WHITE BLOOD CELL COUNT (BEAKER) (test psdo=505) 15.7 K/ L 3.5-10.5 RED BLOOD CELL COUNT (BEAKER) (test hsrh=980) 3.96 M/ L 4.63-6.08 HEMOGLOBIN (BEAKER) (test sdyb=777) 12.2 GM/DL 13.7-17.5 HEMATOCRIT (BEAKER) (test oqeq=615) 37.6 % 40.1-51.0 MEAN CORPUSCULAR VOLUME (BEAKER) (test ezzo=424) 94.9 fL 79.0-92.2 MEAN CORPUSCULAR HEMOGLOBIN (BEAKER) (test 30.8 pg 25.7-32.2 xyfm=693) MEAN CORPUSCULAR HEMOGLOBIN CONC (BEAKER) (test 32.4 GM/DL 32.3-36.5 ptsq=640) RED CELL DISTRIBUTION WIDTH (BEAKER) (test 17.7 % 11.6-14.4 wqtl=336) PLATELET COUNT (BEAKER) (test suow=597) 157 K/CU MM 150-450 MEAN PLATELET VOLUME (BEAKER) (test nvyq=327) 11.1 fL 9.4-12.4 NUCLEATED RED BLOOD CELLS (BEAKER) (test 2 /100 WBC 0-0 bnyy=688) NEUTROPHILS RELATIVE PERCENT (BEAKER) (test 84 % gecp=426) LYMPHOCYTES RELATIVE PERCENT (BEAKER) (test 5 % nsyk=603) MONOCYTES RELATIVE PERCENT (BEAKER) (test 10 % flts=530) EOSINOPHILS RELATIVE PERCENT (BEAKER) (test 0 % odqg=012) BASOPHILS RELATIVE PERCENT (BEAKER) (test 0 % ckjj=560) NEUTROPHILS ABSOLUTE COUNT (BEAKER) (test 13.20 K/ L 1.78-5.38 rqsj=959) LYMPHOCYTES ABSOLUTE COUNT (BEAKER) (test 0.73 K/ L 1.32-3.57 elaz=989) MONOCYTES ABSOLUTE COUNT (BEAKER) (test 1.51 K/ L 0.30-0.82 zmqx=259) EOSINOPHILS ABSOLUTE COUNT (BEAKER) (test 0.05 K/ L 0.04-0.54 bkbz=253) BASOPHILS ABSOLUTE COUNT (BEAKER) (test 0.03 K/ L 0.01-0.08 dqnu=089) IMMATURE GRANULOCYTES-RELATIVE PERCENT (BEAKER) 1 % 0-1 (test akru=7676) POCT-GLUCOSE [id number] 05:38:00 Test Item Value Reference Range Comments POC-GLUCOSE METER (BEAKER) 154 mg/dL 70-110 TESTED AT [address] (test otjx=8520) [place] [address] POCT-GLUCOSE [id number] 00:02:00 Test Item Value Reference Range Comments POC-GLUCOSE METER (BEAKER) 160 mg/dL 70-110 TESTED AT [address] (test elvm=6920) [place] [address] POCT-GLUCOSE [id number] 17:15:00 Test Item Value Reference Range Comments POC-GLUCOSE METER (BEAKER) 179 mg/dL 70-110 TESTED AT [address] (test rsok=2790) [place] [id number] POCT-GLUCOSE [id number] 05:46:00 Test Item Value Reference Range Comments POC-GLUCOSE METER (BEAKER) 126 mg/dL 70-110 TESTED AT [address] (test ngxf=5216) [place] [address] CBC W/PLT COUNT & AUTO [id number] 04:13:00 Test Item Value Reference Range Comments WHITE BLOOD CELL COUNT (BEAKER) (test awek=091) 16.9 K/ L 3.5-10.5 RED BLOOD CELL COUNT (BEAKER) (test rhaz=162) 4.16 M/ L 4.63-6.08 HEMOGLOBIN (BEAKER) (test ygfv=359) 13.1 GM/DL 13.7-17.5 HEMATOCRIT (BEAKER) (test crhk=501) 40.2 % 40.1-51.0 MEAN CORPUSCULAR VOLUME (BEAKER) (test phve=280) 96.6 fL 79.0-92.2 MEAN CORPUSCULAR HEMOGLOBIN (BEAKER) (test 31.5 pg 25.7-32.2 xhpq=215) MEAN CORPUSCULAR HEMOGLOBIN CONC (BEAKER) (test 32.6 GM/DL 32.3-36.5 uycu=392) RED CELL DISTRIBUTION WIDTH (BEAKER) (test 17.1 % 11.6-14.4 ihom=454) PLATELET COUNT (BEAKER) (test swbe=400) 202 K/CU MM 150-450 MEAN PLATELET VOLUME (BEAKER) (test lutx=362) 11.0 fL 9.4-12.4 NUCLEATED RED BLOOD CELLS (BEAKER) (test 2 /100 WBC 0-0 anwn=249) NEUTROPHILS RELATIVE PERCENT (BEAKER) (test 85 % ypux=596) LYMPHOCYTES RELATIVE PERCENT (BEAKER) (test 6 % lzlf=112) MONOCYTES RELATIVE PERCENT (BEAKER) (test 8 % tcjx=981) EOSINOPHILS RELATIVE PERCENT (BEAKER) (test 0 % etzn=757) BASOPHILS RELATIVE PERCENT (BEAKER) (test 0 % hsbi=421) NEUTROPHILS ABSOLUTE COUNT (BEAKER) (test 14.25 K/ L 1.78-5.38 slwz=938) LYMPHOCYTES ABSOLUTE COUNT (BEAKER) (test 0.97 K/ L 1.32-3.57 alxd=836) MONOCYTES ABSOLUTE COUNT (BEAKER) (test 1.30 K/ L 0.30-0.82 rsfp=971) EOSINOPHILS ABSOLUTE COUNT (BEAKER) (test 0.02 K/ L 0.04-0.54 tpai=098) BASOPHILS ABSOLUTE COUNT (BEAKER) (test 0.04 K/ L 0.01-0.08 skva=358) IMMATURE GRANULOCYTES-RELATIVE PERCENT (BEAKER) 2 % 0-1 (test wyxg=5925) TSH/FREE T4 IF [id number] 04:05:00 Test Item Value Reference Range Comments THYROID STIMULATING HORMONE (BEAKER) (test 0.85 uIU/mL 0.35-4.94 plws=579) [id number] 03:41:00 Test Item Value Reference Range Comments MAGNESIUM (BEAKER) (test hqnq=441) 2.5 mg/dL 1.6-2.6 COMPREHENSIVE METABOLIC [id number] 03:41:00 Test Item Value Reference Range Comments TOTAL PROTEIN (BEAKER) 6.4 gm/dL 6.0-8.3 (test oqjf=772) ALBUMIN (BEAKER) (test 3.6 g/dL 3.5-5.0 ytoh=9481) ALKALINE PHOSPHATASE 70 U/L 40-150 (BEAKER) (test zgtw=716) BILIRUBIN TOTAL (BEAKER) 3.3 mg/dL 0.2-1.2 (test nwjw=186) SODIUM (BEAKER) (test 136 meq/L 136-145 earf=347) POTASSIUM (BEAKER) (test 5.2 meq/L 3.5-5.1 mtrf=059) CHLORIDE (BEAKER) (test 92 meq/L 98-107 jyis=340) CO2 (BEAKER) (test 18 meq/L 22-29 uvej=894) BLOOD UREA NITROGEN 85 mg/dL 7-21 (BEAKER) (test cmyr=164) CREATININE (BEAKER) (test 9.03 mg/dL 0.57-1.25 bqzs=350) GLUCOSE RANDOM (BEAKER) 130 mg/dL 70-105 (test vxrf=222) CALCIUM (BEAKER) (test 10.0 mg/dL 8.4-10.2 nmek=332) AST (SGOT) (BEAKER) (test 859 U/L 5-34 lujv=793) ALT (SGPT) (BEAKER) (test 1588 U/L 6-55 zeek=485) EGFR (BEAKER) (test 6 mL/min/1.73 sq m ESTIMATED GFR IS NOT gtps=6510) ACCURATE CREATININE CLEARANCE IN PREDICTING GLOMERULAR FILTRATION RATE. ESTIMATED GFR IS NOT APPLICABLE FOR DIALYSIS PATIENTS. Specimen slightly ictericPROTHROMBIN [id number] 03:29:00 Test Item Value Reference Range Comments PROTIME (BEAKER) (test iitd=289) 25.5 seconds 11.9-14.2 INR (BEAKER) (test rmui=210) 2.5 <=5.9 RECOMMENDED COUMADIN/WARFARIN INR THERAPY RANGESSTANDARD DOSE: 2.0 - 3.0 Includes: PROPHYLAXIS forvenous thrombosis, systemic embolization; TREATMENT for venous thrombosis and/or pulmonary embolus.HIGH RISK: Target INR is 2.5-3.5 for patients with mechanical heart valves.POCT-GLUCOSE [id number] 23:42:00 Test Item Value Reference Range Comments POC-GLUCOSE METER (BEAKER) 79 mg/dL 70-110 TESTED AT [address] (test gccy=1829) [facility] [address] POCT-GLUCOSE [id number] 23:34:00 Test Item Value Reference Range Comments POC-GLUCOSE METER (BEAKER) 75 mg/dL 70-110 TESTED AT [address] (test hohn=6540) [facility] [address] POCT-GLUCOSE [id number] 18:28:00 Test Item Value Reference Range Comments POC-GLUCOSE METER (BEAKER) 87 mg/dL 70-110 TESTED AT [address] (test xdwv=3202) [facility] [address] LACTIC ACID, [id number] 14:47:00 Test Item Value Reference Range Comments LACTATE BLOOD VENOUS (2) (BEAKER) (test 5.3 mmol/L 0.5-2.2 bgjs=2936) Specimen slightly ictericBASIC METABOLIC [id number] 14:40:00 Test Item Value Reference Range Comments SODIUM (BEAKER) (test 138 meq/L 136-145 qosa=597) POTASSIUM (BEAKER) (test 5.0 meq/L 3.5-5.1 Specimen slightly bafw=204) hemolyzed CHLORIDE (BEAKER) (test 94 meq/L 98-107 tukf=251) CO2 (BEAKER) (test 21 meq/L 22-29 umoi=286) BLOOD UREA NITROGEN 69 mg/dL 7-21 (BEAKER) (test zgqy=485) CREATININE (BEAKER) (test 8.21 mg/dL 0.57-1.25 Specimen slightly mxpw=949) hemolyzed GLUCOSE RANDOM (BEAKER) 84 mg/dL 70-105 (test qcrg=673) CALCIUM (BEAKER) (test 9.6 mg/dL 8.4-10.2 gobj=491) EGFR (BEAKER) (test 6 mL/min/1.73 sq m ESTIMATED GFR IS NOT iaxe=8086) ACCURATE CREATININE CLEARANCE IN PREDICTING GLOMERULAR FILTRATION RATE. ESTIMATED GFR IS NOT APPLICABLE FOR DIALYSIS PATIENTS. Specimen slightly [id number] 14:34:00 Test Item Value Reference Range Comments PARTIAL THROMBOPLASTIN TIME (BEAKER) (test 91.0 seconds 22.5-36.0 duak=191) [id number] 14:30:00 Test Item Value Reference Range Comments AMMONIA (BEAKER) (test vmbe=648) 96 mol/L 18-72 POCT-GLUCOSE [id number] 13:06:00 Test Item Value Reference Range Comments POC-GLUCOSE METER (BEAKER) 87 mg/dL 70-110 [facility] [address] [facility] (test qstd=9576) [place] [address] CD4 T CELL [id number] 09:28:00 Test Item Value Reference Range Comments TOTAL LYMPHOCYTES FC (BEAKER) (test nqul=6847) 679 /cu mm CD3+ TOTAL T CELLS % FC (BEAKER) (test okru=7441) 81 % 49-84 CD3+ TOTAL T CELLS ABSOLUTE FC (BEAKER) (test 553 /cu mm 603-2,990 batk=6586) CD3+/CD8+ T SUPPRESSOR CELLS % FC (BEAKER) (test 13 % 10-40 akpo=6150) CD3+/CD8+ T SUPPRESSOR CELLS ABS FC (BEAKER) 86 /cu mm 125-1,312 (test ftkh=9739) CD3+/CD4+ T HELPER CELLS % FC (BEAKER) (test 69 % 28-63 ejds=0264) CD3+/CD4+ T HELPER CELLS ABS FC (BEAKER) (test 468 /cu mm 441-2,156 nfsf=7596) CD4/CD8 RATIO FC (BEAKER) (test yxpk=9480) 5.46 0.70-3.23 CD16+/CD56+ NATURAL KILLER CELLS % FC (BEAKER) 11 % 4-25 (test jyql=4643) CD16+/CD56+ NATURAL KILLER CELLS ABS FC (BEAKER) 72 /cu mm 95-640 (test ausu=5235) CD19+ TOTAL B CELLS % FC (BEAKER) (test 7 % 6-27 odhx=7367) CD19+ TOTAL B CELLS ABS FC (BEAKER) (test 49 /cu mm 107-698 dagi=6873) CBC W/PLT COUNT & AUTO [id number] 08:53:00 Test Item Value Reference Range Comments WHITE BLOOD CELL COUNT (BEAKER) (test epgg=842) 19.6 K/ L 3.5-10.5 RED BLOOD CELL COUNT (BEAKER) (test gfds=761) 4.06 M/ L 4.63-6.08 HEMOGLOBIN (BEAKER) (test tjev=635) 12.5 GM/DL 13.7-17.5 HEMATOCRIT (BEAKER) (test sjsx=797) 40.2 % 40.1-51.0 MEAN CORPUSCULAR VOLUME (BEAKER) (test vctf=048) 99.0 fL 79.0-92.2 MEAN CORPUSCULAR HEMOGLOBIN (BEAKER) (test 30.8 pg 25.7-32.2 pcnp=491) MEAN CORPUSCULAR HEMOGLOBIN CONC (BEAKER) (test 31.1 GM/DL 32.3-36.5 lxpv=718) RED CELL DISTRIBUTION WIDTH (BEAKER) (test 16.5 % 11.6-14.4 rdpa=106) PLATELET COUNT (BEAKER) (test qypp=308) 170 K/CU MM 150-450 MEAN PLATELET VOLUME (BEAKER) (test jcjx=980) 11.3 fL 9.4-12.4 NUCLEATED RED BLOOD CELLS (BEAKER) (test 2 /100 WBC 0-0 dcyc=395) (CELLAVISION MANUAL DIFF)2018-07-28 08:53:00 Test Item Value Reference Range Comments NEUTROPHILS - REL (CELLAVISION)(BEAKER) (test 90 % qlry=9430) LYMPHOCYTES - REL (CELLAVISION)(BEAKER) (test 3 % jnsf=1497) MONOCYTES - REL (CELLAVISION)(BEAKER) (test 4 % kjde=0980) BANDS - REL (CELLAVISION)(BEAKER) (test 3 % 0-10 prmz=2256) NEUTROPHILS - ABS (CELLAVISION)(BEAKER) (test 17.64 K/ul 1.78-5.38 dmts=6515) LYMPHOCYTES - ABS (CELLAVISION)(BEAKER) (test 0.59 K/ul 1.32-3.57 zfja=4646) MONOCYTES - ABS (CELLAVISION)(BEAKER) (test 0.78 K/uL 0.30-0.82 fogn=7435) BANDS - ABS (CELLAVISION)(BEAKER) (test 0.59 K/uL 0.00-0.80 iwju=4123) TOTAL COUNTED (BEAKER) (test sfhe=5073) 100 WBC MORPHOLOGY (BEAKER) (test ltvl=384) Normal PLT MORPHOLOGY (BEAKER) (test spph=004) Normal ANISOCYTOSIS (BEAKER) (test ankk=162) 1+ few MACROCYTES (BEAKER) (test gcbp=572) 1+ few POIKILOCYTES (BEAKER) (test hpry=517) 1+ few ARTIFACT (CELLAVISION)(BEAKER) (test qnsz=3546) Present PLATELET CONCENTRATION (CELLAVISION)(BEAKER) Adequate (test eofz=3695) Received comment: User comments: Slide comments:[id number] 08:35:00 Test Item Value Reference Range Comments PARTIAL THROMBOPLASTIN TIME (BEAKER) (test 74.6 seconds 22.5-36.0 qjhf=164) PROTHROMBIN TIME/[id number] 08:34:00 Test Item Value Reference Range Comments PROTIME (BEAKER) (test cooy=918) 25.2 seconds 11.7-14.7 INR (BEAKER) (test hkio=050) 2.4 <=5.9 RECOMMENDED COUMADIN/WARFARIN INR THERAPY RANGESSTANDARD DOSE: 2.0 - 3.0 Includes: PROPHYLAXIS forvenous thrombosis, systemic embolization; TREATMENT for venous thrombosis and/or pulmonary embolus.HIGH RISK: Target INR is 2.5-3.5 for patients with mechanical heart valves.LACTIC ACID, [id number] 08:32:00 Test Item Value Reference Range Comments LACTATE BLOOD VENOUS (2) 5.7 mmol/L 0.5-2.2 Specimen slightly hemolyzed (BEAKER) (test rptl=7391) POCT-GLUCOSE [id number] 08:20:00 Test Item Value Reference Range Comments POC-GLUCOSE METER (BEAKER) 88 mg/dL 70-110 TESTED AT [facility] [address] [facility] (test ijyk=9752) [place] [address] [id number] 05:11:00 Test Item Value Reference Range Comments PHOSPHORUS (BEAKER) (test ksto=432) 10.5 mg/dL 2.3-4.7 COMPREHENSIVE METABOLIC [id number] 04:58:00 Test Item Value Reference Range Comments TOTAL PROTEIN (BEAKER) 6.3 gm/dL 6.0-8.3 (test odyi=458) ALBUMIN (BEAKER) (test 3.5 g/dL 3.5-5.0 izye=7836) ALKALINE PHOSPHATASE 65 U/L 40-150 (BEAKER) (test qeko=950) BILIRUBIN TOTAL (BEAKER) 2.3 mg/dL 0.2-1.2 (test hpvj=532) SODIUM (BEAKER) (test 139 meq/L 136-145 uhhv=421) POTASSIUM (BEAKER) (test 5.0 meq/L 3.5-5.1 wnxw=084) CHLORIDE (BEAKER) (test 95 meq/L 98-107 mreh=268) CO2 (BEAKER) (test 22 meq/L 22-29 wiiy=035) BLOOD UREA NITROGEN 61 mg/dL 7-21 (BEAKER) (test eaes=193) CREATININE (BEAKER) (test 7.77 mg/dL 0.57-1.25 idgi=600) GLUCOSE RANDOM (BEAKER) 79 mg/dL 70-105 (test ruxo=822) CALCIUM (BEAKER) (test 9.8 mg/dL 8.4-10.2 ycpy=230) AST (SGOT) (BEAKER) (test 1175 U/L 5-34 uelb=215) ALT (SGPT) (BEAKER) (test 1724 U/L 6-55 mjgk=419) EGFR (BEAKER) (test 7 mL/min/1.73 sq m ESTIMATED GFR IS NOT tkxy=2839) ACCURATE CREATININE CLEARANCE IN PREDICTING GLOMERULAR FILTRATION RATE. ESTIMATED GFR IS NOT APPLICABLE FOR DIALYSIS PATIENTS. Specimen slightly ictericPTH, [id number] 04:57:00 Test Item Value Reference Range Comments PARATHYROID HORMONE INTACT (BEAKER) (test 578.6 pg/mL 8.5-72.5 thoj=553) [id number] 02:13:00 Test Item Value Reference Range Comments PARTIAL THROMBOPLASTIN TIME (BEAKER) (test 53.4 seconds 22.5-36.0 apsh=572) [id number] 01:40:00 Test Item Value Reference Range Comments PARTIAL THROMBOPLASTIN TIME (BEAKER) (test > seconds 22.5-36.0 ggqm=461) BASIC METABOLIC [id number] 00:55:00 Test Item Value Reference Range Comments SODIUM (BEAKER) (test 136 meq/L 136-145 gzjz=296) POTASSIUM (BEAKER) (test 4.8 meq/L 3.5-5.1 suhs=281) CHLORIDE (BEAKER) (test 95 meq/L 98-107 exbe=716) CO2 (BEAKER) (test 20 meq/L 22-29 coqa=062) BLOOD UREA NITROGEN 54 mg/dL 7-21 (BEAKER) (test uvgd=798) CREATININE (BEAKER) (test 7.39 mg/dL 0.57-1.25 uhcd=234) GLUCOSE RANDOM (BEAKER) 106 mg/dL 70-105 (test orbs=311) CALCIUM (BEAKER) (test 9.6 mg/dL 8.4-10.2 amss=747) EGFR (BEAKER) (test 7 mL/min/1.73 sq m ESTIMATED GFR IS NOT zede=6360) ACCURATE CREATININE CLEARANCE IN PREDICTING GLOMERULAR FILTRATION RATE. ESTIMATED GFR IS NOT APPLICABLE FOR DIALYSIS PATIENTS. Specimen slightly ictericPOCT-GLUCOSE [id number] 00:15:00 Test Item Value Reference Range Comments POC-GLUCOSE METER (BEAKER) 123 mg/dL 70-110 TESTED AT [address] (test tvvx=3879) [place] [address] POCT-GLUCOSE [id number] 18:01:00 Test Item Value Reference Range Comments POC-GLUCOSE METER (BEAKER) 90 mg/dL 70-110 TESTED AT [address] (test qkci=4615) [place] [address] [id number] 17:47:00 Test Item Value Reference Range Comments PARTIAL THROMBOPLASTIN TIME (BEAKER) (test 56.1 seconds 22.5-36.0 bxgw=137) POCT-GLUCOSE [id number] 17:27:00 Test Item Value Reference Range Comments POC-GLUCOSE METER (BEAKER) 99 mg/dL 70-110 TESTED AT [address] (test jjin=7618) [place] [address] RESPIRATORY PANEL [id number] 10:42:00 Test Item Value Reference Range Comments HUMAN METAPNEUMOVIRUS (BEAKER) (test Not detected Not detected, Equivocal hadm=4881) RHINOVIRUS (BEAKER) (test mznc=8237) Not detected Not detected, Equivocal INFLUENZA A (BEAKER) (test ccgo=8042) Not detected Not detected, Equivocal INFLUENZA A (NO SUBTYPE) (test Not detected, Equivocal soxp=5136) INFLUENZA A SUBTYPE H1 (BEAKER) (test Not detected, Equivocal xklg=7227) INFLUENZA A SUBTYPE H3 (BEAKER) (test Not detected, Equivocal nufr=9844) INFLUENZA A SUBTYPE H1-2009 (BEAKER) Not detected, Equivocal (test eisg=0568) INFLUENZA B (BEAKER) (test bnhd=6981) Not detected Not detected, Equivocal RESPIRATORY SYNCYTIAL VIRUS (BEAKER) Not detected Not detected, Equivocal (test yhph=0048) PARAINFLUENZA VIRUS 1 (BEAKER) (test Not detected Not detected, Equivocal sccq=4333) PARAINFLUENZA VIRUS 2 (BEAKER) (test Not detected Not detected, Equivocal lvjv=3541) PARAINFLUENZA VIRUS 3 (BEAKER) (test Not detected Not detected, Equivocal stcg=9650) PARAINFLUENZA VIRUS 4 (BEAKER) (test Not detected Not detected, Equivocal jfeu=4701) ADENOVIRUS (BEAKER) (test pskz=0210) Not detected Not detected, Equivocal CORONAVIRUS 229E (BEAKER) (test Not detected Not detected, Equivocal ddxv=1256) CORONAVIRUS HKU1 (BEAKER) (test Not detected Not detected, Equivocal jrpf=5640) CORONAVIRUS NL63 (BEAKER) (test Not detected Not detected, Equivocal ftzr=8336) CORONAVIRUS OC43 (BEAKER) (test Not detected Not detected, Equivocal nepo=6301) BORDETELLA PERTUSSIS (BEAKER) (test Not detected Not detected, Equivocal pwqy=7626) CHLAMYDOPHILA PNEUMONIAE (BEAKER) (test Not detected Not detected, Equivocal dcax=0491) MYCOPLASMA PNEUMONIAE (BEAKER) (test Not detected Not detected, Equivocal nugr=1114) Other viruses and bacteria not targeted by this PCR panel cannot be excluded; therefore clinical correlation and follow up of serology, culture results, and other molecular studies is required. The results are not intended to be used as the sole means for clinical diagnosis or patient management decisions. This sample was tested at the [facility] using the [employer] FilmArray Respiratory Panel. It is FDA cleared and has been verified and approved by the [facility] for clinical use on nasopharyngeal swab specimens.The performance of the FilmArrayRP has not been established in individuals who received influenza vaccine. Recent administration ofa nasal influenza vaccine may cause false positive results for Influenza A and/orInfluenza B.PT/[id number] 10:30:00 Test Item Value Reference Range Comments PROTIME (BEAKER) (test kkxn=941) 22.7 seconds 11.7-14.7 INR (BEAKER) (test tzuw=246) 2.1 <=5.9 PARTIAL THROMBOPLASTIN TIME (BEAKER) (test 51.6 seconds 22.5-36.0 bknv=622) RECOMMENDED COUMADIN/WARFARIN INR THERAPY RANGESSTANDARD DOSE: 2.0 - 3.0 Includes: PROPHYLAXIS forvenous thrombosis, systemic embolization; TREATMENT for venous thrombosis and/or pulmonary embolus.HIGH RISK: Target INR is 2.5-3.5 for patients with mechanical heart valves.HEPATITIS B SURFACE [id number] 09:41:00 Test Item Value Reference Range Comments HEPATITIS B SURFACE ANTIGEN (2) (BEAKER) (test Nonreactive Nonreactive rvze=8050) For chronic HD patients, draw HBsAg with each admission then every 30 days.TROPONIN [id number] 07:24:00 Test Item Value Reference Range Comments TROPONIN I (BEAKER) (test vrxx=504) 0.98 ng/mL 0.00-0.03 Troponin I (TnI) levels [...] acidosis, acute neurological disease, and persistent tachyarrhythmia.POCT-GLUCOSE [id number] 06:38:00 Test Item Value Reference Range Comments POC-GLUCOSE METER (ValutaoAKER) 108 mg/dL 70-110 TESTED AT [facility] [address] [facility] (test dmfs=1629) [facility] [address] TROPONIN [id number] 02:40:00 Test Item Value Reference Range Comments TROPONIN I (BEAKER) (test pcss=593) 1.10 ng/mL 0.00-0.03 Troponin I (TnI) levels [...] acute neurological disease, and persistent tachyarrhythmia.COMPREHENSIVE METABOLIC [id number] 02:40:00 Test Item Value Reference Range Comments TOTAL PROTEIN (BEAKER) 6.6 gm/dL 6.0-8.3 (test lbaz=909) ALBUMIN (BEAKER) (test 3.7 g/dL 3.5-5.0 dszv=1897) ALKALINE PHOSPHATASE 58 U/L 40-150 (BEAKER) (test gwfi=479) BILIRUBIN TOTAL (BEAKER) 1.6 mg/dL 0.2-1.2 (test ossc=021) SODIUM (BEAKER) (test 138 meq/L 136-145 icgm=484) POTASSIUM (BEAKER) (test 4.9 meq/L 3.5-5.1 phil=108) CHLORIDE (BEAKER) (test 94 meq/L 98-107 njll=540) CO2 (BEAKER) (test 21 meq/L 22-29 phsh=797) BLOOD UREA NITROGEN 99 mg/dL 7-21 (BEAKER) (test gmfj=783) CREATININE (BEAKER) (test 10.86 mg/dL 0.57-1.25 erea=900) GLUCOSE RANDOM (BEAKER) 126 mg/dL 70-105 (test hvze=231) CALCIUM (BEAKER) (test 10.5 mg/dL 8.4-10.2 dxzc=196) AST (SGOT) (BEAKER) (test 1853 U/L 5-34 vyxx=577) ALT (SGPT) (BEAKER) (test 1752 U/L 6-55 jolx=057) EGFR (BEAKER) (test 5 mL/min/1.73 sq m ESTIMATED GFR IS NOT dphv=0693) ACCURATE CREATININE CLEARANCE IN PREDICTING GLOMERULAR FILTRATION RATE. ESTIMATED GFR IS NOT APPLICABLE FOR DIALYSIS PATIENTS. [id number] 02:39:00 Test Item Value Reference Range Comments PHOSPHORUS (BEAKER) (test bfrp=300) 12.8 mg/dL 2.3-4.7 CBC W/PLT COUNT & AUTO [id number] 02:33:00 Test Item Value Reference Range Comments WHITE BLOOD CELL COUNT (BEAKER) (test hdro=652) 13.2 K/ L 3.5-10.5 RED BLOOD CELL COUNT (BEAKER) (test tgts=631) 3.75 M/ L 4.63-6.08 HEMOGLOBIN (BEAKER) (test vdkz=959) 11.6 GM/DL 13.7-17.5 HEMATOCRIT (BEAKER) (test xgws=760) 35.4 % 40.1-51.0 MEAN CORPUSCULAR VOLUME (BEAKER) (test wowk=869) 94.4 fL 79.0-92.2 MEAN CORPUSCULAR HEMOGLOBIN (BEAKER) (test 30.9 pg 25.7-32.2 xiuq=669) MEAN CORPUSCULAR HEMOGLOBIN CONC (BEAKER) (test 32.8 GM/DL 32.3-36.5 noql=055) RED CELL DISTRIBUTION WIDTH (BEAKER) (test 15.4 % 11.6-14.4 pniy=657) PLATELET COUNT (BEAKER) (test hrav=758) 144 K/CU MM 150-450 MEAN PLATELET VOLUME (BEAKER) (test tcag=776) 11.1 fL 9.4-12.4 NUCLEATED RED BLOOD CELLS (BEAKER) (test 1 /100 WBC 0-0 ehqz=923) NEUTROPHILS RELATIVE PERCENT (BEAKER) (test 82 % zbwe=514) LYMPHOCYTES RELATIVE PERCENT (BEAKER) (test 6 % hqcu=425) MONOCYTES RELATIVE PERCENT (BEAKER) (test 10 % rdts=461) EOSINOPHILS RELATIVE PERCENT (BEAKER) (test 1 % kgoj=341) BASOPHILS RELATIVE PERCENT (BEAKER) (test 0 % mqvu=439) NEUTROPHILS ABSOLUTE COUNT (BEAKER) (test 10.82 K/ L 1.78-5.38 cxom=360) LYMPHOCYTES ABSOLUTE COUNT (BEAKER) (test 0.84 K/ L 1.32-3.57 oynb=136) MONOCYTES ABSOLUTE COUNT (BEAKER) (test 1.32 K/ L 0.30-0.82 gelb=259) EOSINOPHILS ABSOLUTE COUNT (BEAKER) (test 0.08 K/ L 0.04-0.54 qpuz=825) BASOPHILS ABSOLUTE COUNT (BEAKER) (test 0.04 K/ L 0.01-0.08 hjkf=474) IMMATURE GRANULOCYTES-RELATIVE PERCENT (BEAKER) 1 % 0-1 (test bjkj=6912) BASIC METABOLIC [id number] 02:32:00 Test Item Value Reference Range Comments SODIUM (BEAKER) (test 138 meq/L 136-145 sjzg=114) POTASSIUM (BEAKER) (test 4.9 meq/L 3.5-5.1 miky=364) CHLORIDE (BEAKER) (test 94 meq/L 98-107 ropl=036) CO2 (BEAKER) (test 21 meq/L 22-29 avns=180) BLOOD UREA NITROGEN 99 mg/dL 7-21 (BEAKER) (test zbxp=674) CREATININE (BEAKER) (test 10.86 mg/dL 0.57-1.25 tmbp=856) GLUCOSE RANDOM (BEAKER) 126 mg/dL 70-105 (test caqo=185) CALCIUM (BEAKER) (test 10.5 mg/dL 8.4-10.2 vzrg=419) EGFR (BEAKER) (test 5 mL/min/1.73 sq m ESTIMATED GFR IS NOT rgui=2959) ACCURATE CREATININE CLEARANCE IN PREDICTING GLOMERULAR FILTRATION RATE. ESTIMATED GFR IS NOT APPLICABLE FOR DIALYSIS PATIENTS. [id number] 02:26:00 Test Item Value Reference Range Comments PARTIAL THROMBOPLASTIN TIME (BEAKER) (test 49.1 seconds 22.5-36.0 rito=332) LACTIC ACID, [id number] 02:00:00 Test Item Value Reference Range Comments LACTATE BLOOD VENOUS (2) (BEAKER) (test 2.7 mmol/L 0.5-2.2 timn=0296) POCT-GLUCOSE [id number] 23:58:00 Test Item Value Reference Range Comments POC-GLUCOSE METER (BEAKER) 105 mg/dL 70-110 TESTED AT [facility] [address] [place] [address] (test zpvl=1283) [facility] [address] BLOOD GAS, [id number] 22:15:00 Test Item Value Reference Range Comments PH ARTERIAL (BEAKER) (test yhlv=222) 7.39 7.35-7.45 PCO2 ARTERIAL (BEAKER) (test qhme=613) 36 mmHg 35-45 PO2 ARTERIAL (BEAKER) (test aqwf=976) 209 mmHg 80-90 O2 SATURATION ARTERIAL (BEAKER) (test znxd=052) 99.4 % 96.0-97.0 HCO3 ARTERIAL (BEAKER) (test liya=936) 21 mmol/L 21-29 BASE EXCESS ARTERIAL (BEAKER) (test iwwu=971) -3.3 mmol/L -2.0-3.0 PATIENT TEMPERATURE (BEAKER) (test ekgs=8860) 36.5 C FIO2 (BEAKER) (test pkmb=4384) 50.0 % HEMOGLOBIN [id number] 21:35:00 Test Item Value Reference Range Comments HEMOGLOBIN A1C (BEAKER) (test andu=086) 5.8 % 4.3-6.1 TROPONIN [id number] 21:06:00 Test Item Value Reference Range Comments TROPONIN I (BEAKER) (test rpfh=415) 1.34 ng/mL 0.00-0.03 Troponin I (TnI) levels [...] acute neurological disease, and persistent tachyarrhythmia.BASIC METABOLIC [id number] 20:49:00 Test Item Value Reference Range Comments SODIUM (BEAKER) (test 136 meq/L 136-145 hpyh=972) POTASSIUM (BEAKER) (test 5.9 meq/L 3.5-5.1 Specimen slightly awsg=208) hemolyzed CHLORIDE (BEAKER) (test 94 meq/L 98-107 zsyv=930) CO2 (BEAKER) (test 19 meq/L 22-29 uzjg=057) BLOOD UREA NITROGEN 93 mg/dL 7-21 (BEAKER) (test tzsr=342) CREATININE (BEAKER) (test 10.26 mg/dL 0.57-1.25 Specimen slightly nxae=562) hemolyzed GLUCOSE RANDOM (BEAKER) 65 mg/dL 70-105 (test ourc=464) CALCIUM (BEAKER) (test 10.6 mg/dL 8.4-10.2 xijo=964) EGFR (BEAKER) (test 5 mL/min/1.73 sq m ESTIMATED GFR IS NOT ebge=9671) ACCURATE CREATININE CLEARANCE IN PREDICTING GLOMERULAR FILTRATION RATE. ESTIMATED GFR IS NOT APPLICABLE FOR DIALYSIS PATIENTS. LACTIC ACID, [id number] 20:44:00 Test Item Value Reference Range Comments LACTATE BLOOD VENOUS (2) 3.1 mmol/L 0.5-2.2 Specimen slightly hemolyzed (BEAKER) (test laey=7004) [id number] 20:38:00 Test Item Value Reference Range Comments PARTIAL THROMBOPLASTIN TIME (BEAKER) (test 37.2 seconds 22.5-36.0 cdwy=687) POCT-GLUCOSE [id number] 19:57:00 Test Item Value Reference Range Comments POC-GLUCOSE METER (BEAKER) 84 mg/dL 70-110 TESTED AT [facility] [address] [facility] (test kosm=0617) [facility] [address] CT, BRAIN, WITHOUT [id number] 19:39:00FINAL REPORT CT Head without contrast CLINICAL [...] Vega Verified Date/Time: 07/26/2018 19:39:58 Reading Location: [facility] [address] [place] [address] Reading Room POCT-GLUCOSE [id number] 19:06:00 Test Item Value Reference Range Comments POC-GLUCOSE METER (BEAKER) 61 mg/dL 70-110 TESTED AT [facility] [address] [facility] (test nvrk=9770) [facility] [address] POCT-GLUCOSE [id number] 14:25:00 Test Item Value Reference Range Comments POC-GLUCOSE METER (BEAKER) 85 mg/dL 70-110 TESTED AT [facility] [address] [facility] (test wygq=4072) [facility] [address] CBC W/PLT COUNT & AUTO [id number] 13:27:00 Test Item Value Reference Range Comments WHITE BLOOD CELL COUNT (BEAKER) (test ejkl=871) 14.8 K/ L 3.5-10.5 RED BLOOD CELL COUNT (BEAKER) (test wkeq=948) 3.85 M/ L 4.63-6.08 HEMOGLOBIN (BEAKER) (test xuea=625) 12.0 GM/DL 13.7-17.5 HEMATOCRIT (BEAKER) (test lsrh=719) 36.5 % 40.1-51.0 MEAN CORPUSCULAR VOLUME (BEAKER) (test fegv=524) 94.8 fL 79.0-92.2 MEAN CORPUSCULAR HEMOGLOBIN (BEAKER) (test 31.2 pg 25.7-32.2 icfv=334) MEAN CORPUSCULAR HEMOGLOBIN CONC (BEAKER) (test 32.9 GM/DL 32.3-36.5 yzes=508) RED CELL DISTRIBUTION WIDTH (BEAKER) (test 15.5 % 11.6-14.4 kaxl=411) PLATELET COUNT (BEAKER) (test vldc=182) 156 K/CU MM 150-450 MEAN PLATELET VOLUME (BEAKER) (test pxkq=447) 11.0 fL 9.4-12.4 NUCLEATED RED BLOOD CELLS (BEAKER) (test 0 /100 WBC 0-0 crdq=964) (CELLAVISION MANUAL DIFF)2018-07-26 13:27:00 Test Item Value Reference Range Comments NEUTROPHILS - REL (CELLAVISION)(BEAKER) (test 86 % gjsi=9593) LYMPHOCYTES - REL (CELLAVISION)(BEAKER) (test 2 % hpki=0388) MONOCYTES - REL (CELLAVISION)(BEAKER) (test 11 % viyh=8806) EOSINOPHILS - REL (CELLAVISION)(BEAKER) (test 1 % ndii=3264) NEUTROPHILS - ABS (CELLAVISION)(BEAKER) (test 12.73 K/ul 1.78-5.38 iujj=2875) LYMPHOCYTES - ABS (CELLAVISION)(BEAKER) (test 0.30 K/ul 1.32-3.57 eenh=4169) MONOCYTES - ABS (CELLAVISION)(BEAKER) (test 1.63 K/uL 0.30-0.82 bwkp=8070) EOSINOPHILS - ABS (CELLAVISION)(BEAKER) (test 0.15 K/uL 0.04-0.54 ygeo=8137) TOTAL COUNTED (BEAKER) (test gdby=9656) 100 WBC MORPHOLOGY (BEAKER) (test amav=329) Normal PLT MORPHOLOGY (BEAKER) (test htup=105) Normal ANISOCYTOSIS (BEAKER) (test kybx=679) 1+ few POIKILOCYTES (BEAKER) (test poff=706) 1+ few ARTIFACT (CELLAVISION)(BEAKER) (test rcrw=6283) Present PLATELET CONCENTRATION (CELLAVISION)(BEAKER) Adequate (test zmfc=6340) Received comment: User comments: Slide comments:[id number] 13:23:00 Test Item Value Reference Range Comments PROCALCITONIN (BEAKER) (test ysul=4877) 0.72 ng/mL <0.05 SEPSIS RISK (ng/mL)Low: 0.05-0.50Intermediate: 0.51-2.00High: & gt;=2.01TROPONIN [id number] 12:55:00 Test Item Value Reference Range Comments TROPONIN I (BEAKER) (test ygck=244) 1.34 ng/mL 0.00-0.03 Troponin I (TnI) levels [...] acute neurological disease, and persistent tachyarrhythmia.COMPREHENSIVE METABOLIC [id number] 12:50:00 Test Item Value Reference Range Comments TOTAL PROTEIN (BEAKER) 6.6 gm/dL 6.0-8.3 (test khch=854) ALBUMIN (BEAKER) (test 3.8 g/dL 3.5-5.0 thbk=4673) ALKALINE PHOSPHATASE 56 U/L 40-150 (BEAKER) (test htoh=429) BILIRUBIN TOTAL (BEAKER) 1.4 mg/dL 0.2-1.2 (test tfct=121) SODIUM (BEAKER) (test 135 meq/L 136-145 sbdx=437) POTASSIUM (BEAKER) (test 5.7 meq/L 3.5-5.1 chix=793) CHLORIDE (BEAKER) (test 94 meq/L 98-107 dltz=749) CO2 (BEAKER) (test 19 meq/L 22-29 ttlv=879) BLOOD UREA NITROGEN 90 mg/dL 7-21 (BEAKER) (test hpzl=660) CREATININE (BEAKER) (test 9.76 mg/dL 0.57-1.25 nekl=779) GLUCOSE RANDOM (BEAKER) 88 mg/dL 70-105 (test byfn=759) CALCIUM (BEAKER) (test 10.4 mg/dL 8.4-10.2 hnpx=586) AST (SGOT) (BEAKER) (test 2387 U/L 5-34 swjq=213) ALT (SGPT) (BEAKER) (test 1730 U/L 6-55 daef=600) EGFR (BEAKER) (test 5 mL/min/1.73 sq m ESTIMATED GFR IS NOT drfa=7886) ACCURATE CREATININE CLEARANCE IN PREDICTING GLOMERULAR FILTRATION RATE. ESTIMATED GFR IS NOT APPLICABLE FOR DIALYSIS PATIENTS. PROTHROMBIN TIME/[id number] 12:47:00 Test Item Value Reference Range Comments PROTIME (BEAKER) (test muvp=785) 23.2 seconds 11.7-14.7 INR (BEAKER) (test ehpi=223) 2.2 <=5.9 RECOMMENDED COUMADIN/WARFARIN INR THERAPY RANGESSTANDARD DOSE: 2.0 - 3.0 Includes: PROPHYLAXIS forvenous thrombosis, systemic embolization; TREATMENT for venous thrombosis and/or pulmonary embolus.HIGH RISK: Target INR is 2.5-3.5 for patients with mechanical heart valves.B-TYPE NATRIURETIC FACTOR (BNP)2018-07 12:47:00 Test Item Value Reference Range Comments B-TYPE NATRIURETIC PEPTIDE (BEAKER) (test 4832 pg/mL 0-100 eqxv=868) [id number] 12:45:00 Test Item Value Reference Range Comments LIPASE (BEAKER) (test erum=978) 18 U/L 8-78 HEPATIC FUNCTION [id number] 12:45:00 Test Item Value Reference Range Comments TOTAL PROTEIN (BEAKER) (test vekq=505) 6.6 gm/dL 6.0-8.3 ALBUMIN (BEAKER) (test vdoi=6133) 3.8 g/dL 3.5-5.0 BILIRUBIN TOTAL (BEAKER) (test yvue=348) 1.4 mg/dL 0.2-1.2 BILIRUBIN DIRECT (BEAKER) (test qstl=896) 1.1 mg/dL 0.1-0.5 ALKALINE PHOSPHATASE (BEAKER) (test kwkt=382) 56 U/L 40-150 AST (SGOT) (BEAKER) (test ltvt=657) 2387 U/L 5-34 ALT (SGPT) (BEAKER) (test lfgg=983) 1730 U/L 6-55 LACTIC ACID, [id number] 12:39:00 Test Item Value Reference Range Comments LACTATE BLOOD VENOUS (2) 3.2 mmol/L 0.5-2.2 Specimen slightly hemolyzed (BEAKER) (test uwpe=4239) BLOOD GAS, [id number] 12:25:00 Test Item Value Reference Range Comments PH ARTERIAL (BEAKER) (test qqtn=505) 7.35 7.35-7.45 PCO2 ARTERIAL (BEAKER) (test scvd=622) 41 mmHg 35-45 PO2 ARTERIAL (BEAKER) (test hmux=692) 85 mmHg 80-90 O2 SATURATION ARTERIAL (BEAKER) (test lnzc=368) 96.2 % 96.0-97.0 HCO3 ARTERIAL (BEAKER) (test muge=586) 22 mmol/L 21-29 BASE EXCESS ARTERIAL (BEAKER) (test swsd=227) -3.4 mmol/L -2.0-3.0 PATIENT TEMPERATURE (BEAKER) (test zmyf=9841) 36.4 C FIO2 (BEAKER) (test pcnl=8437) 28.0 % POCT-GLUCOSE [id number] 12:21:00 Test Item Value Reference Range Comments POC-GLUCOSE METER (BEAKER) 83 mg/dL 70-110 TESTED AT [facility] [address] (test jaaq=9544) [facility] [address] U/S, ABDOMINAL, [id number] 11:45:00Abdomen limited area? Add comment if clarification [...] rightupper quadrant ultrasound exam. Signed: Nolan Martinez MDReport Verified Date/Time : 07/26/2018 11:45:22 Reading Location: [facility] C013Y CT Body Reading Room RAD , CHEST, 1 VIEW, NON [id number] 11:10:00Reason for exam:->Persistent coughShould this be performed [...] Robert MDReport Verified Date/Time: 11:10:13 Reading Location: [facility] C013V Neuro Reading Room RAD, CHEST, 2 [id number] 18:51:00Reason for exam:->ABNORMAL IMAGING RESULTFINAL REPORT Chest, [...] pulmonary edema. Signed: Gallo Delgado Verified Date/Time: 18:51:08 Reading Location: [facility] C013W Consult Reading Room Electronicallysigned by: GALLO DELGADO M.D. on 03/23/2018 06:51 PMB-TYPE NATRIURETIC FACTOR (BNP)2018-03-23 18:29:00 Test Item Value Reference Range Comments B-TYPE NATRIURETIC PEPTIDE (BEAKER) (test 1420 pg/mL 0-100 sxig=998) RAPID [id number] 18:27:00 Test Item Value Reference Range Comments RAPID MYOGLOBIN (BEAKER) (test wzot=2142) 438 ng/mL <107 RAPID [id number] 18:27:00 Test Item Value Reference Range Comments RAPID CKMB (BEAKER) (test yrms=9014) 3.2 ng/mL 0.0-4.3 RAPID TROPONIN [id number] 18:27:00 Test Item Value Reference Range Comments RAPID TROPONIN I (BEAKER) (test espm=0828) < ng/mL <0.05 PT/[id number] 18:23:00 Test Item Value Reference Range Comments PROTIME (BEAKER) (test pjdo=316) 11.3 seconds 9.8-12.0 INR (BEAKER) (test whcp=623) 1.1 <=5.9 PARTIAL THROMBOPLASTIN TIME (BEAKER) (test 22.5 seconds 25.8-34.5 rzrx=086) RECOMMENDED COUMADIN/WARFARIN INR THERAPY RANGESSTANDARD DOSE: 2.0 - 3.0 Includes: PROPHYLAXIS forvenous thrombosis, systemic embolization; TREATMENT for venous thrombosis and/or pulmonary embolus.HIGH RISK: Target INR is 2.5-3.5 for patients with mechanical heart valves.BASIC METABOLIC [id number] 18:21: 00 Test Item Value Reference Range Comments SODIUM (BEAKER) (test 138 meq/L 135-148 ynlf=867) POTASSIUM (BEAKER) (test 4.7 meq/L 3.6-5.5 zuwv=370) CHLORIDE (BEAKER) (test 99 meq/L 98-106 molj=486) CO2 (BEAKER) (test 29 meq/L 24-32 eumi=619) BLOOD UREA NITROGEN 36 mg/dL 10-26 (BEAKER) (test ruea=739) CREATININE (BEAKER) (test 5.15 mg/dL 0.50-1.20 qciz=196) GLUCOSE RANDOM (BEAKER) 94 mg/dL 70-110 (test ptgt=850) CALCIUM (BEAKER) (test 9.2 mg/dL 8.5-10.5 uyxa=621) EGFR (BEAKER) (test 11 mL/min/1.73 sq m ESTIMATED GFR IS NOT hwiv=2435) ACCURATE CREATININE CLEARANCE IN PREDICTING GLOMERULAR FILTRATION RATE. ESTIMATED GFR IS NOT APPLICABLE FOR DIALYSIS PATIENTS. [id number] 18:18:00 Test Item Value Reference Range Comments MAGNESIUM (BEAKER) (test xyif=324) 2.3 mg/dL 1.5-3.0 CREATINE KINASE (CK)2018-03-23 18:18:00 Test Item Value Reference Range Comments CREATINE KINASE TOTAL (BEAKER) (test ynfv=303) 50 U/L 40-250 CBC W/PLT COUNT & AUTO [id number] 18:15:00 Test Item Value Reference Range Comments WHITE BLOOD CELL COUNT (BEAKER) (test ymnx=560) 9.3 K/ L 4.0-10.0 RED BLOOD CELL COUNT (BEAKER) (test ajze=843) 3.48 M/ L 4.20-5.80 HEMOGLOBIN (BEAKER) (test uxmm=520) 10.9 GM/DL 13.0-16.8 HEMATOCRIT (BEAKER) (test zfoo=915) 33.0 % 40.0-50.0 MEAN CORPUSCULAR VOLUME (BEAKER) (test cvnd=469) 94.8 fL 82.0-98.0 MEAN CORPUSCULAR HEMOGLOBIN (BEAKER) (test 31.2 pg 27.0-33.0 ecas=345) MEAN CORPUSCULAR HEMOGLOBIN CONC (BEAKER) (test 32.9 GM/DL 32.0-36.0 zzbe=421) RED CELL DISTRIBUTION WIDTH (BEAKER) (test 13.7 % 10.3-14.2 zogd=202) PLATELET COUNT (BEAKER) (test ysyi=290) 277 K/CU MM 150-430 MEAN PLATELET VOLUME (BEAKER) (test hduw=492) 8.8 fL 6.5-10.5 NEUTROPHILS RELATIVE PERCENT (BEAKER) (test 72 % mdns=745) LYMPHOCYTES RELATIVE PERCENT (BEAKER) (test 15 % mbgq=439) MONOCYTES RELATIVE PERCENT (BEAKER) (test 9 % gswo=194) EOSINOPHILS RELATIVE PERCENT (BEAKER) (test 3 % hfyk=263) BASOPHILS RELATIVE PERCENT (BEAKER) (test 1 % tfdz=062) NEUTROPHILS ABSOLUTE COUNT (BEAKER) (test 6.68 K/ L 1.80-8.00 uzvo=108) LYMPHOCYTES ABSOLUTE COUNT (BEAKER) (test 1.41 K/ L 1.48-4.50 wuga=943) MONOCYTES ABSOLUTE COUNT (BEAKER) (test 0.83 K/ L 0.00-1.30 pexm=495) EOSINOPHILS ABSOLUTE COUNT (BEAKER) (test 0.32 K/ L 0.00-0.50 vqdb=223) BASOPHILS ABSOLUTE COUNT (BEAKER) (test 0.05 K/ L 0.00-0.20 mhhw=467)
--- NOTE | 2018-09-15 18:07 | RAD REPORT ---
EXAM DESCRIPTION: CT - Ct Stroke Brain Wo Cont - 09/15/2018 6:01 pm CLINICAL HISTORY: DIZZINESS Headache, drowsiness, CVA COMPARISON: Head Brain Wo Cont dated 08/17/2018 TECHNIQUE: All CT scans are performed using dose optimization technique as appropriate and may inclu de automated exposure control or mA/KV adjustment according to patient size. FINDINGS: No intracranial hemorrhage, hydrocephalus or extra-axial fluid collection.No areas of brai n edema or evidence of midline shift. The paranasal sinuses and mastoids are clear. The calvarium is intact. Vertebral arteries are atheros clerotic, greater on the left. IMPRESSION: No acute intracranial abnormality. The findings were discussed with Dr. Jaramillo in the ER on 09/15/2018 at 6 p.m. by telephone.
--- NOTE | 2018-09-15 18:16 | RAD REPORT ---
EXAM DESCRIPTION: RAD - Chest Single View - 09/15/2018 6:04 pm CLINICAL HISTORY: dizziness Chest pain. COMPARISON: <Comparisons> FINDINGS: Portable technique limits examination quality. The lungs are grossly clear. The heart is moderately enlarged in size. Left-sided venous catheter tip in the SVC. IMPRESSION: No acute intrathoracic process suspected.
[2018-09-15] MEDS ORDERED: FOLIC ACID 5 MG/ML VIAL ONE (18:33)
[2018-09-15] MEDS ORDERED: NA CHLORIDE 0.9% 1,000 ML ONE (18:33)
[2018-09-15] MEDS ORDERED: NA CHLORIDE 0.9% 50 ML IV ONE ×2 (18:33→20:08)
--- NOTE | 2018-09-15 18:58 | RAD REPORT ---
EXAM DESCRIPTION: MRI - Brain Wo Cont - 09/15/2018 6:38 pm CLINICAL HISTORY: DIZZINESS Headache, drowsiness, CVA symptomology COMPARISON: Ct Stroke Brain Wo Cont dated 09/15/2018 TECHNIQUE: Multi-sequence, multiplanar MR imaging of the brain was performed without contrast. FINDINGS: No intracranial hemorrhage, hydrocephalus or extra-axial fluid collections.Mild T2 and FLA IR hyperintensities in the periventricular deep white matter are seen, compatible with chronic microv ascular ischemic changes. No edema or shift of midline structures. No findings to suspect brain mass. DWI is negative for acute CVA. Mild mucosal thickening involves the inferior left maxillary antrum. Paranasal sinuses mastoids are o therwise clear. No calvarial lesion. IMPRESSION: Negative for acute CVA or other acute intracranial process.
--- NOTE | 2018-09-15 19:39 | ER ---
Nurse's Notes [facility] Name: Fredi Moore Age: 72 yrs Sex: Male : 1945 Arrival Date: 09/15/2018 Time: 17:26 Bed 30 Private MD: Diagnosis: Altered mental status, unspecified;Weakness;End stage renal disease;Type 2 diabetes mellitus;Human immunodeficiency virus [HIV] disease;Atrial fibrillation and flutter;Anemia, unspecified Presentation: 09/15 17:26 Presenting complaint: EMS states: patient was unable to walk and been weak with mg2 dizziness for 2 days now. he did dialysis yesterday. he was discharged from [facility] 2 weeks ago for a heart condition.denies chest pain today. Transition of care: patient was not received from another setting of care. Onset of symptoms was September 14, 2018. Risk Assessment: Do you want to hurt yourself or someone else? Patient reports no desire to harm self or others. Initial Sepsis Screen: Does the patient meet any 2 criteria? No. Patient's initial sepsis screen is negative. Does the patient have a suspected source of infection? No. Patient's initial sepsis screen is negative. Care prior to arrival: None. 17:26 Method Of Arrival: EMS mg2 17:26 Acuity: LUCERO 2 mg2 Historical: - Allergies: 17:48 Morphine; mg2 - Home Meds: 17:48 abacavir 300 mg Oral tab 1 tab 2 times per day [Active]; amlodipine 10 mg tab 1 tab mg2 once daily [Active]; atazanavir 300 mg Oral 1 cap once daily [Active]; atorvastatin 80 mg Oral tab 1 tab nightly [Active]; atrial flutter [Active]; furosemide 40 mg Oral tab 1 tab 2 times per day [Active]; gabapentin 600 mg Oral tab 1 tab 3 times per day [Active]; hydroxyzine HCl 25 mg Oral tab 1 tab nightly [Active]; insulin asparte 10 units TID SQ [Active]; insulin glargine subcutaneous Sub-Q daily [Active]; lamivudine 100 mg Oral tab 0.5 tab once daily [Active]; Lyrica 75 mg Oral 2 times per day [Active]; metoprolol tartrate 100 mg Oral tab 1 tab once daily [Active]; ritonavir 100 mg Oral 1 cap once daily [Active]; sevelamer HCl Oral 2 tabs 3 times per day [Active]; Warfarin Oral [Active]; - PMHx: 17:48 blood clots; colon cancer; Diabetes - NIDDM; Dialysis; ESRD; HIV; Hypertension; mg2 - Immunization history:: Flu vaccine status is unknown. - Ebola Screening: : No symptoms or risks identified at this time. - Social history:: Smoking status: . - Family history:: not pertinent. Screenin:22 Abuse screen: Denies threats or abuse. Denies injuries from another. Nutritional mg2 screening: No deficits noted. Tuberculosis screening: No symptoms or risk factors identified. Fall Risk IV access (20 points). Gait- Weak (10 pts.). Assessment: 17:59 Reassessment: patient sent to ct scan via stretcher. mg2 18:23 General: Appears in no apparent distress. comfortable, Behavior is calm, cooperative. mg2 Pain: Denies pain. Neuro: Reports dizziness, since morning. Cardiovascular: Capillary refill < 3 seconds Patient's skin is warm and dry. Respiratory: Airway is patent Respiratory effort is even, unlabored, Respiratory pattern is regular, symmetrical. GI: No signs and/or symptoms were reported involving the gastrointestinal system. : No signs and/or symptoms were reported regarding the genitourinary system. EENT: No signs and/or symptoms were reported regarding the EENT system. Derm: Skin is intact, is healthy with good turgor, Skin is pink, warm \T\ dry. normal. Musculoskeletal: Reports weakness in right arm, left arm, right leg and left leg. 20:25 Reassessment: patient has been sleeping/snoring most of his stay. chest rub done mg2 patient responded. dr jaramillo is aware. 22:50 Reassessment: patient still sleeping. dr jaramillo and myself tried waking him up by mg2 chest rub and he screamed/responded. 23:14 Reassessment: patient sent to the floor via stretcher accompanied by the and ed mg2 [place], patient was moans, and moving his extremities whenever I try to wake him up. Vital Signs: 17:44 BP 120 / 69; Pulse 52; Resp 18; Temp 97.5; Pulse Ox 98% on 2 lpm NC; mg2 19:32 BP 90 / 48; Pulse 56; Resp 18; Pulse Ox 96% on R/A; mg2 19:59 BP 158 / 72; Pulse 50; Resp 18; Pulse Ox 95% on R/A; mg2 20:24 BP 137 / 71; Pulse 52; Resp 18; Pulse Ox 97% on R/A; mg2 21:45 BP 129 / 64; Pulse 57; Resp 18; Temp 96.9(TE); Pulse Ox 100% on 2 lpm NC; mg2 22:51 BP 136 / 72; Pulse 51; Resp 18; Temp 96.9(TE); Pulse Ox 100% on R/A; mg2 ED Course: 17:26 Patient arrived in ED. mg2 17:26 Justin Pimentel, RN is Primary Nurse. mg2 17:45 Pan Jaramillo MD is Attending Physician. santi 17:45 Arm band placed on. mg2 17:[address] via stretcher. em2 17:59 CT completed. Patient tolerated procedure well. em2 18:02 CT Stroke Brain w/o Contrast In Process Unspecified. EDMS 18:07 XRAY Chest (1 view) In Process Unspecified. EDMS 18:25 No provider procedures requiring assistance completed. mg2 18:27 Patient has correct armband on for positive identification. Door closed. Warm blanket mg2 given. 18:28 Triage completed. mg2 18:40 Brain Wo Cont In Process Unspecified. EDMS 19:29 Inserted saline lock: 18 gauge in right EJ, using aseptic technique. Blood collected. mg2 by Dr. jaramillo. 19:37 Nikki Napier MD is Hospitalizing Provider. santi 20:28 Straight cath inserted, using sterile technique, Returned 10 ml. Patient tolerated well.mg2 20:43 Notified ED physician of a critical lab result(s). INR of 4.19, Creatinine 6.55. Dr madison Jaramillo notified. 22:51 Patient admitted, IV remains in place. mg2 Administered Medications: 19:28 Drug: foLIC Acid 1 mg Route: IVPB; Site: right jugular; mg2 20:24 Follow up: Response: No adverse reaction; IV Status: Completed infusion mg2 19:28 Drug: NS 0.9% 1000 ml Route: IV; Rate: 75 ml/hr; Site: right jugular; mg2 22:41 Follow up: Response: No adverse reaction; IV Status: Infusion continued upon admission; mg2 IV Intake: 200ml 19:58 Drug: Thiamine 100 mg Route: IV; Rate: bolus; Site: right jugular; mg2 20:23 Follow up: Response: No adverse reaction; IV Status: Completed infusion mg2 19:58 Drug: NS 0.9% 250 ml Route: IV; Rate: bolus; Site: right jugular; mg2 20:22 Follow up: Response: No adverse reaction; IV Status: Completed infusion; IV Intake: mg2 250ml 20:23 Drug: Rocephin 1 grams Route: IV; Rate: per protocol; Site: right jugular; mg2 21:02 Follow up: Response: No adverse reaction; IV Status: Completed infusion mg2 22:34 Drug: Pepcid 20 mg Route: IVP; Site: right jugular; mg2 22:36 Follow up: Response: No adverse reaction mg2 Point of Care Testing: Blood Glucose: 20:18 Blood Glucose: 93 mg/dL; bb Ranges: Intake: 20:22 IV: 250ml; Total: 250ml. mg2 22:41 IV: 200ml; Total: 450ml. mg2 Outcome: 19:38 Decision to Hospitalize by Provider. santi 22:54 Admitted to Tele accompanied by tech, via stretcher, room 409, with oxygen, with chart, mg2 Report called to EASTON Weiss 22:54 Condition: stable 22:54 Instructed on the need for admit, Demonstrated understanding of instructions. 23:16 Patient left the ED. mg2 Signatures: Dispatcher [employer] Pan Skaggs MD MD cha Ballard, Brenda, RN RN Theron Astorga Michele, RN RN mg2
--- NOTE | 2018-09-15 19:39 | EDPHYS ---
Physician Documentation [facility] Name: Fredi Moore Age: 72 yrs Sex: Male : 1945 Arrival Date: 09/15/2018 Time: 17:26 Bed 30 Private MD: ED Physician Pan Jaramillo HPI: 09/15 19:24 This 72 yrs old Male presents to ER via EMS with complaints of ams and santi weakness. 19:24 weakness and altered, no trauma. The patient presents with decreased mental status. santi Onset: The symptoms/episode began/occurred 2 day(s) ago. Possible causes: unknown. Associated signs and symptoms: The patient has no apparent associated signs or symptoms. Patient's baseline: Neuro: alert and fully oriented. Severity of symptoms: At their worst the symptoms were mild moderate in the emergency department the symptoms are unchanged. The patient has not experienced similar symptoms in the past. Historical: - Allergies: 17:48 Morphine; mg2 - Home Meds: 17:48 abacavir 300 mg Oral tab 1 tab 2 times per day [Active]; amlodipine 10 mg tab 1 tab mg2 once daily [Active]; atazanavir 300 mg Oral 1 cap once daily [Active]; atorvastatin 80 mg Oral tab 1 tab nightly [Active]; atrial flutter [Active]; furosemide 40 mg Oral tab 1 tab 2 times per day [Active]; gabapentin 600 mg Oral tab 1 tab 3 times per day [Active]; hydroxyzine HCl 25 mg Oral tab 1 tab nightly [Active]; insulin asparte 10 units TID SQ [Active]; insulin glargine subcutaneous Sub-Q daily [Active]; lamivudine 100 mg Oral tab 0.5 tab once daily [Active]; Lyrica 75 mg Oral 2 times per day [Active]; metoprolol tartrate 100 mg Oral tab 1 tab once daily [Active]; ritonavir 100 mg Oral 1 cap once daily [Active]; sevelamer HCl Oral 2 tabs 3 times per day [Active]; Warfarin Oral [Active]; - PMHx: 17:48 blood clots; colon cancer; Diabetes - NIDDM; Dialysis; ESRD; HIV; Hypertension; mg2 - Immunization history:: Flu vaccine status is unknown. - Ebola Screening: : No symptoms or risks identified at this time. - Social history:: Smoking status: . - Family history:: not pertinent. ROS: 19:24 Constitutional: Negative for fever, chills, and weight loss, Eyes: Negative for injury, santi pain, redness, and discharge, ENT: Negative for injury, pain, and discharge, Neck: Negative for injury, pain, and swelling, Cardiovascular: Negative for chest pain, palpitations, and edema, Respiratory: Negative for shortness of breath, cough, wheezing, and pleuritic chest pain, Abdomen/GI: Negative for abdominal pain, nausea, vomiting, diarrhea, and constipation, Back: Negative for injury and pain, : Negative for injury, bleeding, discharge, and swelling, MS/Extremity: Negative for injury and deformity, Skin: Negative for injury, rash, and discoloration, Psych: Negative for depression, anxiety, suicide ideation, homicidal ideation, and hallucinations, Allergy/Immunology: Negative for hives, rash, and allergies, Endocrine: Negative for neck swelling, polydipsia, polyuria, polyphagia, and marked weight changes. 19:24 Neuro: Positive for altered mental status, weakness. Exam: 19:24 Constitutional: This is a well developed, well nourished patient who is awake, alert, santi and in no acute distress. Head/Face: Normocephalic, atraumatic. Eyes: Pupils equal round and reactive to light, extra-ocular motions intact. Lids and lashes normal. Conjunctiva and sclera are non-icteric and not injected. Cornea within normal limits. Periorbital areas with no swelling, redness, or edema. ENT: Nares patent. No nasal discharge, no septal abnormalities noted. Tympanic membranes are normal and external auditory canals are clear. Oropharynx with no redness, swelling, or masses, exudates, or evidence of obstruction, uvula midline. Mucous membranes moist. Neck: Trachea midline, no thyromegaly or masses palpated, and no cervical lymphadenopathy. Supple, full range of motion without nuchal rigidity, or vertebral point tenderness. No Meningismus. Chest/axilla: Normal chest wall appearance and motion. Nontender with no deformity. No lesions are appreciated. Respiratory: Lungs have equal breath sounds bilaterally, clear to auscultation and percussion. No rales, rhonchi or wheezes noted. No increased work of breathing, no retractions or nasal flaring. Abdomen/GI: Soft, non-tender, with normal bowel sounds. No distension or tympany. No guarding or rebound. No evidence of tenderness throughout. Back: No spinal tenderness. No costovertebral tenderness. Full range of motion. Male : Normal genitalia with no discharge or lesions. Skin: Warm, dry with normal turgor. Normal color with no rashes, no lesions, and no evidence of cellulitis. Psych: Awake, alert, with orientation to person, place and time. Behavior, mood, and affect are within normal limits. 19:24 Cardiovascular: Rate: bradycardic, Rhythm: regular, Pulses: no pulse deficits are appreciated, Heart sounds: normal, Edema: 2+ edema to level of left midcalf and right midcalf, JVD: is not appreciated. Vital Signs: 17:44 BP 120 / 69; Pulse 52; Resp 18; Temp 97.5; Pulse Ox 98% on 2 lpm NC; mg2 19:32 BP 90 / 48; Pulse 56; Resp 18; Pulse Ox 96% on R/A; mg2 19:59 BP 158 / 72; Pulse 50; Resp 18; Pulse Ox 95% on R/A; mg2 20:24 BP 137 / 71; Pulse 52; Resp 18; Pulse Ox 97% on R/A; mg2 21:45 BP 129 / 64; Pulse 57; Resp 18; Temp 96.9(TE); Pulse Ox 100% on 2 lpm NC; mg2 22:51 BP 136 / 72; Pulse 51; Resp 18; Temp 96.9(TE); Pulse Ox 100% on R/A; mg2 Procedures: 19:31 Peripheral line: by aseptic technique a peripheral line was placed in the right [facility] external jugular vein. MDM: 17:45 Patient medically screened. [facility] 19:29 Data reviewed: vital signs, nurses notes, lab test result(s), EKG, radiologic studies, [facility] CT scan, MRI, plain films. 09/15 17:40 Order name: Basic Metabolic Panel 09/15 17:40 Order name: CBC with Diff; Complete Time: 20:55 09/15 17:40 Order name: LFT's; Complete Time: 20:55 09/15 17:40 Order name: Magnesium; Complete Time: 20:55 09/15 17:40 Order name: NT PRO-BNP; Complete Time: 20:55 09/15 17:40 Order name: PT-INR; Complete Time: 20:55 09/15 17:40 Order name: Troponin (emerg Dept Use Only); Complete Time: 20:55 09/15 17:41 Order name: Basic Metabolic Panel; Complete Time: 20:55 [facility] 09/15 17:46 Order name: Urine Culture [facility] 09/15 19:24 Order name: ABG; Complete Time: 20:55 [facility] 09/15 19:30 Order name: Blood Culture Adult (2) [facility] 09/15 20:46 Order name: Urine Dipstick--Ancillary (enter results); Complete Time: 21:54 [facility] 09/15 21:23 Order name: Miscellaneous Test Lab [facility] 09/15 21:53 Order name: Type And Screen [facility] 09/15 17:39 Order name: CT Stroke Brain w/o Contrast; Complete Time: 19:23 09/15 17:40 Order name: XRAY Chest (1 view); Complete Time: 19:23 09/15 17:40 Order name: EKG; Complete Time: 17:42 09/15 18:39 Order name: Brain Wo Cont; Complete Time: 19:23 [facility] 09/15 21:09 Order name: CONS Pharmacy Consult [facility] 09/15 21:54 Order name: Glucose, Ancillary Testing [facility] 09/15 23:13 Order name: Type and Screen [facility] 09/15 17:40 Order name: Cardiac monitoring; Complete Time: 18:22 09/15 17:40 Order name: EKG - Nurse/Tech; Complete Time: 18:22 09/15 17:40 Order name: IV Saline Lock; Complete Time: 19:29 09/15 17:40 Order name: Labs collected and sent; Complete Time: 19:29 09/15 17:40 Order name: O2 Per Protocol; Complete Time: 18:22 09/15 17:40 Order name: O2 Sat Monitoring; Complete Time: 18:22 09/15 17:46 Order name: Urine Dipstick-Ancillary (obtain specimen); Complete Time: 20:19 [facility] 09/15 20:12 Order name: Blood Glucose Level; Complete Time: 20:19 [facility] Administered Medications: 19:28 Drug: foLIC Acid 1 mg Route: IVPB; Site: right jugular; mg2 20:24 Follow up: Response: No adverse reaction; IV Status: Completed infusion mg2 19:28 Drug: NS 0.9% 1000 ml Route: IV; Rate: 75 ml/hr; Site: right jugular; mg2 22:41 Follow up: Response: No adverse reaction; IV Status: Infusion continued upon admission; mg2 IV Intake: 200ml 19:58 Drug: Thiamine 100 mg Route: IV; Rate: bolus; Site: right jugular; mg2 20:23 Follow up: Response: No adverse reaction; IV Status: Completed infusion mg2 19:58 Drug: NS 0.9% 250 ml Route: IV; Rate: bolus; Site: right jugular; mg2 20:22 Follow up: Response: No adverse reaction; IV Status: Completed infusion; IV Intake: mg2 250ml 20:23 Drug: Rocephin 1 grams Route: IV; Rate: per protocol; Site: right jugular; mg2 21:02 Follow up: Response: No adverse reaction; IV Status: Completed infusion mg2 22:34 Drug: Pepcid 20 mg Route: IVP; Site: right jugular; mg2 22:36 Follow up: Response: No adverse reaction mg2 Point of Care Testing: Blood Glucose: 20:18 Blood Glucose: 93 mg/dL; bb Ranges: Critical Glucose Levels:Adult <50 mg/dl or >400 mg/dl <40 mg/dl or >180 mg/dl Disposition: 09/15/18 19:38 Hospitalization ordered by Nikki Napier for Inpatient Admission. Preliminary diagnosis are Altered mental status, unspecified, Weakness, End stage renal disease, Type 2 diabetes mellitus, Human immunodeficiency virus [HIV] disease, Atrial fibrillation and flutter, Anemia, unspecified. - Bed requested for Telemetry/MedSurg (Inpatient). - Status is Inpatient Admission. mg2 - Condition is Fair. - Problem is new. - Symptoms have improved. UTI on Admission? No Signatures: Dispatcher [employer] EDShilpi Coy Martha, RN RN mw Anderson, Corey, MD MD cha Gardose, Michele, EASTON RN mg2 Corrections: (The following items were deleted from the chart) 18:39 17:42 MR STROKE PROTOCOL+MRI.RAD.BRZ ordered. EDMS EDMS 19:42 19:38 Hospitalization Ordered by Nikki Napier MD for Inpatient Admission. Preliminary santi diagnosis is Altered mental status, unspecified; Weakness; End stage renal disease; Type 2 diabetes mellitus. Bed requested for Telemetry/MedSurg (Inpatient). Status is Inpatient Admission. Condition is Fair. Problem is new. Symptoms have improved. UTI on Admission? No. santi 20:57 19:42 09/15/2018 19:38 Hospitalization Ordered by Nikki Napier MD for Inpatient santi Admission. Preliminary diagnosis is Altered mental status, unspecified; Weakness; End stage renal disease; Type 2 diabetes mellitus; Human immunodeficiency virus [HIV] disease; Atrial fibrillation and flutter. Bed requested for Telemetry/MedSurg (Inpatient). Status is Inpatient Admission. Condition is Fair. Problem is new. Symptoms have improved. UTI on Admission? No. [facility] 21:33 20:57 09/15/2018 19:38 Hospitalization Ordered by Nikki Napier MD for Inpatient mw Admission. Preliminary diagnosis is Altered mental status, unspecified; Weakness; End stage renal disease; Type 2 diabetes mellitus; Human immunodeficiency virus [HIV] disease; Atrial fibrillation and flutter; Anemia, unspecified. Bed requested for Telemetry/MedSurg (Inpatient). Status is Inpatient Admission. Condition is Fair. Problem is new. Symptoms have improved. UTI on Admission? No. santi 23:16 21:33 09/15/2018 19:38 Hospitalization Ordered by Nikki Napier MD for Inpatient mg2 Admission. Preliminary diagnosis is Altered mental status, unspecified; Weakness; End stage renal disease; Type 2 diabetes mellitus; Human immunodeficiency virus [HIV] disease; Atrial fibrillation and flutter; Anemia, unspecified. Bed requested for Telemetry/MedSurg (Inpatient). Status is Inpatient Admission. Condition is Fair. Problem is new. Symptoms have improved. UTI on Admission? No. mw
[2018-09-15 20:06] LABS: Arterial Blood Carboxyhemoglob 2.4 % (0-1.5); Blood Gas Oxyhemoglobin 89.5 % (94-97); Blood O2 Saturation 92.3 % (92-98.5)
[2018-09-15] MEDS ORDERED: THIAMINE 200 MG/2 ML INJ ONE (20:07)
[2018-09-15] MEDS ORDERED: CEFTRIAXONE/SWI 1gm 1 GM/10 ML SYR ONE (20:08)
[2018-09-15 20:24] LABS: Absolute Lymphocytes (CBC) 0.8 K/uL (0.7-4.9); Basophils % 2.6 % (0-1.3); Eosinophils % 10.6 % (0-4.4); Hematocrit 29.8 % (39.6-49.0); MPV 8.4 fL (7.6-11.3); Monocytes % 12.2 % (3.3-12.3); RBC Red Blood Cell Count 2.96 M/uL (4.33-5.43)
[2018-09-15 20:39] LABS: Protime INR 4.19
[2018-09-15 20:41] LABS: ALT/SGPT 9 U/L (12-78); AST/SGOT 16 U/L (15-37); Albumin 2.9 g/dL (3.4-5.0); Alkaline Phosphatase 138 U/L (45-117); BUN Blood Urea Nitrogen 42 mg/dL (7-18); Bicarbonate 33 mmol/L (21-32); Bilirubin Direct 0.4 mg/dL (0-0.2); Bilirubin Total 0.7 mg/dL (0.2-1.0); Glucose Level 80 mg/dL (74-106); Magnesium 2.7 mg/dL (1.8-2.4); NT PRO-BNP 21237 pg/mL (<125); Potassium 4.7 mmol/L (3.5-5.1); Protein, Total 7.1 g/dL (6.4-8.2); Sodium Level 136 mmol/L (136-145); Troponin (Emerg Dept Use Only) < 0.02 ng/mL (0.0-0.045)
[2018-09-15] MEDS ORDERED: ONDANSETRON 4 MG/2 ML VIAL IV PRN (21:05)
[2018-09-15] MEDS ORDERED: MORPHINE 4 MG/ML SYR IV PRN (21:05)
[2018-09-15 21:16] LABS: Urine Blood 2+ (NEG); Urine Glucose NEGATIVE (NEG); Urine Protein 3+ (NEG); Urine pH 7.5 (5.0-7.0)
[2018-09-15] MEDS ORDERED: FAMOTIDINE 20 MG/2 ML VIAL IV ONE (22:24)
[2018-09-15] MEDS ORDERED: ROPINIROLE HCL 0.25 MG TAB PO SCH (23:00)
[2018-09-16] MEDS ORDERED: VANCOMYCIN 2 GM in NA CHLORIDE 0.9% 500 ML IVPB ONE (01:00)
[2018-09-16] MEDS ORDERED: NA CHLORIDE 0.9% 250 ML ONE (01:10)
[2018-09-16] MEDS ORDERED: NA CHLORIDE 0.9% 0 ML ONE (01:18)
[2018-09-16] MEDS ORDERED: VANCOMYCIN 1 GM/VIAL ONE (01:18)
[2018-09-16] MEDS ORDERED: FUROSEMIDE 40 MG/4 ML VIAL IV ONE (01:58)
--- NOTE | 2018-09-16 06:34 | P.HP ---
Certification for Inpatient Patient admitted to: Inpatient With expected LOS: >2 Midnights Patient will require the following post-hospital care: None Practitioner: I am a practitioner with admitting privileges, knowledge of patient current condition, hospital course, and medical plan of care. Services: Services provided to patient in accordance with Admission requirements found in Title 42 Section 412.3 of the Code of Federal Regulations Patient History Date of Service: 09/15/18 Reason for admission: Altered mental status History of Present Illness: Patient is a 72-year-old gentleman who has a history of end-stage renal disease and HIV who presents to the emergency room with altered mentation. Patient has similar symptoms happened before according to the -most of the information was obtained from his . These are normally related to his medications. He had recently come home from [facility]. Please see the discharge note from his hospitalization at our facility last month. She believes that he resumed some his older medications since being at home. I believe this combination of over medication has left him more lethargic. He will probably need to be dialyzed and once we get some of the medicines out of his system hopefully his mentation does improved. He takes both baclofen and Flexeril. He tends to have muscle spasms/pain. He was participating with physical therapy. His states he was able to get to the vehicle and they were able to drive around. However about 24 hr ago he became more lethargic. He was still wanting to do things but he was getting frustrated because he was very tired. Today he was very sleepy and she could not really get him to do much so they brought him into the emergency room. He was weak and lethargic. On arrival to the emergency room he had multiple diagnostic studies. They did a CT of the head which was negative. Multiple labs were also performed which did not reveal any worrisome findings. Patient also had an MRI of the brain which was negative. Throughout the evening patient has been doing a little bit more. Hopefully he continues to recur improve. I think he will improve much for after dialysis. He was able to pull the sheets back up on himself when I went to examine him. However, he he does not really respond to a lot of commands. He will need to be monitored closely and hopefully after dialysis we will see improvement. If not we may need neurology consultation as well. His denies any fever. He denies any back pain. He has not had any opportunistic infections from her recollection. And he has been taking his medications for his HIV. Will check a CD4 count and a viral load as well. Allergies morphine Allergy (Verified 09/16/18 00:16) unknown Home Medications: Abacavir Sulfate [Ziagen] 600 mg PO DAILY 08/17/18 Amiodarone HCl [Cordarone*] 200 mg PO DAILY 08/17/18 Aspirin 81 mg PO DAILY 08/17/18 Benzonatate 200 mg PO TIDP PRN 08/17/18 Famotidine 20 mg PO DAILY 08/17/18 Fluticasone Propionate [24 Hour Allergy] 1 spr IH DAILY 08/17/18 Gabapentin 200 mg PO BEDTIME 08/17/18 Lamivudine [Lamivudine Hbv] 50 mg PO DAILY 08/17/18 Metoprolol Succinate [Toprol Xl] 25 mg PO DAILY 08/17/18 Pregabalin [Lyrica*] 75 mg PO BID 08/17/18 Ritonavir [Norvir] 100 mg PO DAILY 08/17/18 Ropinirole HCl 0.5 mg PO BEDTIME 08/17/18 Sevelamer Carbonate 800 mg PO TIDWM 08/17/18 Amlodipine [Norvasc*] 1 tab PO DAILY 09/16/18 Baclofen 1 tab PO BEDTIME 09/16/18 Cetirizine HCl [Zyrtec*] 10 mg PO DAILY 09/16/18 Cyclobenzaprine [Flexeril*] 5 mg PO BID 09/16/18 Furosemide 1 tab PO BID 09/16/18 - Past Medical/Surgical History Has patient received pneumonia vaccine in the past: Yes Diabetic: Yes -: diabetes -: HTN -: ESRD -MWF -: Hemodialysis -: HIV infection -: COLON CANCER -: Afib -: partial removal of colon -: appendectomy -: fistula to left arm -: PermCath left chest - Family History Father Medical History: Hypertension Mother History Unknown: Yes - Social History Smoking Status: Never smoker Alcohol use: No CD- Drugs: No Caffeine use: No Place of Residence: Home Review of Systems is unable to be obtained Physical Examination - Vital Signs Temperature: 97.6 F Blood Pressure: 133/60 Pulse: 48 Respirations: 16 Pulse Ox (%): 100 - Physical Exam General: In no apparent distress, Confused, Other (Patient lethargic) HEENT: Atraumatic, PERRLA, Mucous membr. moist/pink, EOMI, Sclerae nonicteric Neck: Supple, 2+ carotid pulse no bruit, No LAD, Without JVD or thyroid abnormality Respiratory: Clear to auscultation bilaterally, Normal air movement Cardiovascular: Regular rate/rhythm, Normal S1 S2, No murmurs Gastrointestinal: Normal bowel sounds, Soft and benign, No tenderness Musculoskeletal: No clubbing, No swelling, No tenderness Integumentary: No rashes Neurological: Sensation intact, Cranial nerves 3-12 intact, Other (Patient moves all his extremities in response to pain in all 4 extremities) Lymphatics: No axilla or inguinal lymphadenopathy - Studies Laboratory Data (last 24 hrs) 09/15/18 19:20: PT 46.8 H, INR 4.19 H* 09/15/18 19:20: WBC 6.5, Hgb 9.6 L, Hct 29.8 L, Plt Count 219 09/15/18 19:20: Sodium 136, Potassium 4.7, BUN 42 H, Creatinine 6.55 H*, Glucose 80, Magnesium 2.7 H, Total Bilirubin 0.7, AST 16, ALT 9 L, Alkaline Phosphatase 138 H Assessment & Plan - Problems (Diagnosis) (1) Altered mental status Current Visit: Yes Status: Acute (2) Generalized weakness Current Visit: Yes Status: Acute (3) Atrial flutter Onset Date: 11/13/17 Current Visit: No Status: Acute (4) Diastolic dysfunction Current Visit: No Status: Acute (5) ESRD (end stage renal disease) Onset Date: 01/31/17 Current Visit: No Status: Acute (6) HIV (human immunodeficiency virus infection) Current Visit: No Status: Acute - Plan 1. Will try to get dialysis in the am; MRI and CT negative 2. Continue with antibiotics; hold muscle relaxers and anti hypertensives 3. Patient given FFP ease in the emergency room. Repeat PT/INR. 4. Check CD4 count and HIV viral load 5. Nephrology consultation 6. Monitor hemodynamics closely. 7. Neuro checks every 4 hr 8. GI and DVT prophylaxi Discharge Plan: Home Plan to discharge in: Greater than 2 days - Advance Directives Does patient have a Living Will: No Does patient have a Durable POA for Healthcare: No - Code Status/Comfort Care Code Status Assessed: Yes Code Status: Full Code Critical Care: No Time Spent Managing PTS Care (In Minutes): 45
[2018-09-16 07:18] LABS: Absolute Lymphocytes (CBC) 0.7 K/uL (0.7-4.9); Basophils % 2.8 % (0-1.3); Eosinophils % 11.3 % (0-4.4); Hematocrit 28.5 % (39.6-49.0); Lymphocytes % 12.4 % (15.3-44.8); MPV 8.9 fL (7.6-11.3); Monocytes % 12.6 % (3.3-12.3); RBC Red Blood Cell Count 2.86 M/uL (4.33-5.43)
[2018-09-16 07:23] LABS: Protime INR 3.19
[2018-09-16] MEDS: ATAZANAVIR SULFATE 300 MG PO SCH (08:00)
[2018-09-16] MEDS ORDERED: VANCOMYCIN/NS 1 gm 1 GM/250 ML BAG IV SCH (08:15)
[2018-09-16] MEDS ORDERED: INSULIN GLARGINE 100 UNITS/ML SQ SCH (09:00)
[2018-09-16] MEDS: METOPROLOL XL 25 MG TAB PO SCH (09:00)
[2018-09-16] MEDS: RITONAVIR 100 MG PO SCH ×2 (09:00→21:00)
[2018-09-16] MEDS: AMIODARONE HCL 200 MG TAB PO SCH (09:00)
[2018-09-16] MEDS: LAMIVUDINE 50 MG PO SCH (09:00)
[2018-09-16 09:08] LABS: Albumin 2.8 g/dL (3.4-5.0); Bilirubin Total 0.7 mg/dL (0.2-1.0); Potassium 4.9 mmol/L (3.5-5.1); Protein, Total 6.7 g/dL (6.4-8.2)
[2018-09-16] MEDS ORDERED: NA CHLORIDE 0.9% 1,000 ML IV PRN (10:24)
[2018-09-16] MEDS ORDERED: ALBUMIN HUMAN 25% 50 ML IV SCH (11:00)
[2018-09-16 11:02] LABS: Magnesium 2.6 mg/dL (1.8-2.4); Phosphorus 7.2 mg/dL (2.5-4.9)
[2018-09-16] MEDS: MANNITOL 25% 12.5 GM/50 ML VIAL IV PRN ×2 (13:14→13:16)
[2018-09-16] MEDS: EPOETIN ALFA 10,000 UNIT/ML VIAL IV SCH (13:42)
--- NOTE | 2018-09-16 15:07 | EKG ---
Test Date: 2018-09-15 Test Time: 17:45:16 Bedspring Assembler: ANA M MEASUREMENT RESULTS: Intervals: Rate: 50 NC: QRSD: 94 QT: 520 QTc: 474 [place]: P: NC: QRS: -33 T: 163 INTERPRETIVE STATEMENTS: Atrial fibrillation with slow ventricular response Left axis deviation Nonspecific ST and T wave abnormality, probably digitalis effect Prolonged QT Abnormal ECG Compared to ECG 08/17/2018 08:44:30 Prolonged QT interval now present ST (T wave) deviation still present Electronically Signed On 09-16-18 15:07:34 CDT by Shahram Nelson
--- NOTE | 2018-09-16 15:38 | P.PN ---
Subjective Date of Service: 09/16/18 Chief Complaint: Altered mental status Subjective: Improving Patient seen and examined at bedside. at bedside. Chart reviewed and case discussed with nursing staff. Patient alert and oriented x3 at the time of my exam, in no acute distress. Continues to complain of generalized weakness, has not tried to walk yet. Review of Systems 10-point ROS is otherwise unremarkable Physical Examination - Vital Signs Temperature: 97 F Blood Pressure: 109/52 Pulse: 50 Respirations: 18 Pulse Ox (%): 95 - Physical Exam General: Alert, In no apparent distress, Oriented x3, Other HEENT: Atraumatic, PERRLA, EOMI Neck: Supple, JVD not distended Respiratory: Clear to auscultation bilaterally, Normal air movement Gastrointestinal: Normal bowel sounds, No tenderness Integumentary: Other Neurological: Normal speech, Normal tone, Normal affect Lymphatics: No axilla or inguinal lymphadenopathy - Studies Laboratory Data (last 24 hrs) 09/15/18 19:20: PT 46.8 H, INR 4.19 H* 09/15/18 19:20: WBC 6.5, Hgb 9.6 L, Hct 29.8 L, Plt Count 219 09/15/18 19:20: Sodium 136, Potassium 4.7, BUN 42 H, Creatinine 6.55 H*, Glucose 80, Magnesium 2.7 H, Total Bilirubin 0.7, AST 16, ALT 9 L, Alkaline Phosphatase 138 H Microbiology Data (last 24 hrs): 09/15/18 19:50 Blood - Blood Anaerobic Blood Culture - Final 09/15/18 20:05 Blood - Blood Anaerobic Blood Culture - Final Assessment And Plan - Current Problems (Diagnosis) (1) Altered mental status Current Visit: Yes Status: Acute Plan: Improved - likely secondary to medication overdose. Patient currently on Flexeril, baclofen, ropinorole, gabapentin and Lyrica. - continue to hold above medications Qualifiers: Altered mental status type: unspecified Qualified Code(s): R41.82 - Altered mental status, unspecified (2) Generalized weakness Current Visit: Yes Status: Acute (3) ESRD (end stage renal disease) Onset Date: 01/31/17 Current Visit: No Status: Acute Plan: Continue dialysis per nephrology. (4) HIV (human immunodeficiency virus infection) Current Visit: No Status: Acute Plan: CD4 count and HIV viral load ordered, pending - continue to monitor vital signs, monitor closely for fever (5) Supratherapeutic INR Current Visit: Yes Status: Acute (6) Atrial fibrillation Current Visit: No Status: Chronic Plan: Patient was supratherapeutic INR on admission. Coumadin held. Will recheck INR , restart Coumadin as needed. - goal INR of 2.0-3.0 - status post FFP in the ER Qualifiers: Atrial fibrillation type: chronic Qualified Code(s): I48.2 - Chronic atrial fibrillation (7) Hypertension Onset Date: 10/17/17 Current Visit: No Status: Chronic Plan: Stable, continue home medication Qualifiers: Hypertension type: essential hypertension Qualified Code(s): I10 - Essential (primary) hypertension - Plan DVT prophylaxis: On home anticoagulation GI prophylaxis: None Diet: Renal Disposition: Pending symptomatic improvement. He will need thorough medication review/changes prior to discharge
[2018-09-16] MEDS: SEVELAMER CARBONATE 800 MG TABLET PO SCH (16:39)
[2018-09-16] MEDS: FUROSEMIDE 40 MG TABLET PO SCH (16:40)
[2018-09-16] MEDS ORDERED: CEFTRIAXONE/SWI 1gm 1 GM/10 ML SYR IV SCH (21:00)
[2018-09-16] MEDS ORDERED: HOME MED 1 EA UNK (Furosemide [Furosemide] 1 TAB) PO SCH (21:00)
--- NOTE | 2018-09-16 21:30 | P.CNS ---
Date of Consult: 09/16/18 Reason for Consult: ESRD Requesting Physician: Stefano Jones Chief Complaint: Altered mental status History of Present Illness: Patient is a 72-year-old gentleman who has a history of end-stage renal disease and HIV who presents to the emergency room with altered mentation. Patient has similar symptoms happened before according to the -most of the information was obtained from his . These are normally related to his medications. He had recently come home from [facility]. Please see the discharge note from his hospitalization at our facility last month. She believes that he resumed some his older medications since being at home. I believe this combination of over medication has left him more lethargic. He will probably need to be dialyzed and once we get some of the medicines out of his system hopefully his mentation does improved. He takes both baclofen and Flexeril. He tends to have muscle spasms/pain. He was participating with physical therapy. His states he was able to get to the vehicle and they were able to drive around. However about 24 hr ago he became more lethargic. He was still wanting to do things but he was getting frustrated because he was very tired. Today he was very sleepy and she could not really get him to do much so they brought him into the emergency room. He was weak and lethargic. On arrival to the emergency room he had multiple diagnostic studies. They did a CT of the head which was negative. Multiple labs were also performed which did not reveal any worrisome findings. Patient also had an MRI of the brain which was negative. Throughout the evening patient has been doing a little bit more. Hopefully he continues to recur improve. I think he will improve much for after dialysis. He was able to pull the sheets back up on himself when I went to examine him. However, he he does not really respond to a lot of commands. He will need to be monitored closely and hopefully after dialysis we will see improvement. If not we may need neurology consultation as well. His denies any fever. He denies any back pain. He has not had any opportunistic infections from her recollection. And he has been taking his medications for his HIV. Will check a CD4 count and a viral load as well. 19:24 This 72 yrs old Male presents to ER via EMS with complaints of ams and santi weakness. 19:24 weakness and altered, no trauma. The patient presents with decreased mental status. santi Onset: The symptoms/episode began/occurred 2 day(s) ago. Possible causes: unknown. Associated signs and symptoms: The patient has no apparent associated signs or symptoms. Patient's baseline: Neuro: alert and fully oriented. Severity of symptoms: At their worst the symptoms were mild moderate in the emergency department the symptoms are unchanged. The patient has not experienced similar symptoms in the past. Allergies morphine Allergy (Verified 09/16/18 00:16) unknown Home medications list reviewed: Yes Home Medications: Abacavir Sulfate [Ziagen] 600 mg PO DAILY 08/17/18 Amiodarone HCl [Cordarone*] 200 mg PO DAILY 08/17/18 Aspirin 81 mg PO DAILY 08/17/18 Benzonatate 200 mg PO TIDP PRN 08/17/18 Famotidine 20 mg PO DAILY 08/17/18 Fluticasone Propionate [24 Hour Allergy] 1 spr IH DAILY 08/17/18 Gabapentin 200 mg PO BEDTIME 08/17/18 Lamivudine [Lamivudine Hbv] 50 mg PO DAILY 08/17/18 Metoprolol Succinate [Toprol Xl] 25 mg PO DAILY 08/17/18 Pregabalin [Lyrica*] 75 mg PO BID 08/17/18 Ritonavir [Norvir] 100 mg PO DAILY 08/17/18 Ropinirole HCl 0.5 mg PO BEDTIME 08/17/18 Sevelamer Carbonate 800 mg PO TIDWM 08/17/18 Amlodipine [Norvasc*] 1 tab PO DAILY 09/16/18 Baclofen 1 tab PO BEDTIME 09/16/18 Cetirizine HCl [Zyrtec*] 10 mg PO DAILY 09/16/18 Cyclobenzaprine [Flexeril*] 5 mg PO BID 09/16/18 Furosemide 1 tab PO BID 09/16/18 - Past Medical/Surgical History Diabetic: Yes -: diabetes -: HTN -: ESRD -MWF -: Hemodialysis -: HIV infection -: COLON CANCER -: Afib -: partial removal of colon -: appendectomy -: fistula to left arm -: PermCath left chest - Family History Father Medical History: Hypertension Mother History Unknown: Yes - Social History Smoking Status: Unknown if ever smoked Alcohol use: No CD- Drugs: No Caffeine use: No Place of Residence: Home Review of Systems 10-point ROS is otherwise unremarkable General: Weakness, Malaise Respiratory: SOB with Excertion Cardiovascular: Edema Neurological: Weakness Physical Examination Temp Pulse Resp BP Pulse Ox 97.1 F 55 18 109/52 L 96 09/16/18 16:00 09/16/18 16:40 09/16/18 16:00 09/16/18 16:40 09/16/18 16:00 General: In no apparent distress, Cooperative, Confused HEENT: Atraumatic Neck: Supple Respiratory: Clear to auscultation bilaterally Cardiovascular: Regular rate/rhythm, Edema Gastrointestinal: Soft and benign, Non-distended Musculoskeletal: No clubbing, No contractures Integumentary: No rashes, No cyanosis Neurological: Normal speech Urinary: Dialysis catheter Blood work reviewed in the chart. Hgb 9.3 Imagings Data: EXAM DESCRIPTION: RAD - Chest Single View - 09/15/2018 6:04 pm CLINICAL HISTORY: dizziness Chest pain. COMPARISON: <Comparisons> FINDINGS: Portable technique limits examination quality. The lungs are grossly clear. The heart is moderately enlarged in size. Left- sided venous catheter tip in the SVC. IMPRESSION: No acute intrathoracic process suspected. Conclusions/Impression: A/ ESRD on HD. HTN with CKD/ CHF. DM II with CKD. Diastolic CHF, chronic. Anemia in CKD. ABE/ Secondary HyperPTH. Toxic metabolic encephalopathy. P/ Continue current POC and Medications. Restart home medications as indicated. Arrange for acute HD today with [facility]. Give Epo. Titrate insulin as needed. Agree with abx. Follow up cultures. No NSAIDs. AM labs. Daily weight. Thank you kindly for the consultation.
[2018-09-16] MEDS: HYDROCODONE/CHLORPHEN 5 ML/OSYR PO SCH (22:17)
[2018-09-17 05:59] LABS: Protime INR 2.27
[2018-09-17 06:17] LABS: Albumin 2.7 g/dL (3.4-5.0); Bilirubin Total 0.6 mg/dL (0.2-1.0); Potassium 5.4 mmol/L (3.5-5.1); Protein, Total 6.8 g/dL (6.4-8.2)
[2018-09-17 06:20] LABS: Absolute Lymphocytes (CBC) 0.9 K/uL (0.7-4.9); Basophils % 2.7 % (0-1.3); Eosinophils % 9.7 % (0-4.4); Hematocrit 28.7 % (39.6-49.0); Lymphocytes % 15.3 % (15.3-44.8); Monocytes % 14.6 % (3.3-12.3); RBC Red Blood Cell Count 2.86 M/uL (4.33-5.43)
[2018-09-17 06:29] VITALS: O2SAT 92
[2018-09-17] MEDS: ATAZANAVIR SULFATE 300 MG PO SCH (08:00)
[2018-09-17 08:30] LABS: Anisocytosis 1+; Blood Morphology Comment NOTED (NOT SEEN); Macrocytosis SLIGHT; Platelet Estimate ADEQ
[2018-09-17] MEDS: LAMIVUDINE 50 MG PO SCH (09:00)
[2018-09-17] MEDS: CETIRIZINE HCL 5 MG TABLET PO SCH (09:00)
[2018-09-17] MEDS: [UNRECOGNIZED DRUG - REMARK] IH SCH (09:00)
[2018-09-17] MEDS: ABACAVIR SULFATE 600 MG PO SCH (09:00)
[2018-09-17] MEDS: RITONAVIR 100 MG PO SCH ×2 (09:00→20:18)
[2018-09-17] MEDS: SEVELAMER CARBONATE 800 MG TABLET PO SCH ×3 (09:25→16:29)
[2018-09-17] MEDS: METOPROLOL XL 25 MG TAB PO SCH (09:25)
[2018-09-17] MEDS: ASPIRIN 81 MG CHEWABLE TABLET PO SCH (09:29)
[2018-09-17] MEDS: AMLODIPINE 10 MG TAB PO SCH (09:30)
[2018-09-17] MEDS: AMIODARONE HCL 200 MG TAB PO SCH (09:30)
[2018-09-17] MEDS: FUROSEMIDE 40 MG TABLET PO SCH ×2 (09:31→16:29)
[2018-09-17] MEDS: FAMOTIDINE 20 MG TAB PO SCH (09:32)
--- NOTE | 2018-09-17 16:28 | P.PN ---
Subjective Date of Service: 09/17/18 Chief Complaint: Altered mental status Subjective: Improving Patient seen and examined at bedside. at bedside. Chart reviewed and case discussed with nursing staff. Patient alert and oriented x3 at the time of my exam, in no acute distress. Continues to complain of generalized weakness. Working with physical therapy. States he is feeling better today. Review of Systems 10-point ROS is otherwise unremarkable Physical Examination - Vital Signs Temperature: 97.6 F Blood Pressure: 108/54 Pulse: 42 Respirations: 20 Pulse Ox (%): 96 - Physical Exam General: Alert, In no apparent distress, Oriented x3 HEENT: Atraumatic, PERRLA, EOMI Neck: Supple, JVD not distended Respiratory: Clear to auscultation bilaterally, Normal air movement Cardiovascular: Regular rate/rhythm, Normal S1 S2 Gastrointestinal: Normal bowel sounds, No tenderness Musculoskeletal: No tenderness Integumentary: No rashes Neurological: Normal speech, Normal tone, Normal affect Lymphatics: No axilla or inguinal lymphadenopathy - Studies Microbiology Data (last 24 hrs): 09/15/18 19:50 Blood - Blood Aerobic Blood Culture - Final 09/15/18 19:50 Blood - Blood Gram Stain - Final 09/15/18 19:50 Blood - Blood Anaerobic Blood Culture - Final 09/15/18 20:05 Blood - Blood Anaerobic Blood Culture - Final Assessment And Plan - Current Problems (Diagnosis) (1) Altered mental status Current Visit: Yes Status: Acute Plan: Resolved - likely secondary to medication overdose. Patient currently on Flexeril, baclofen, ropinorole, gabapentin and Lyrica. - continue to hold above medications Qualifiers: Altered mental status type: unspecified Qualified Code(s): R41.82 - Altered mental status, unspecified (2) Generalized weakness Current Visit: Yes Status: Acute Plan: Improving, continue working with physical therapy. - we did recommend home health physical therapy to patient. Patient states that he already has physical therapy at home, and he is trying to get rid of them as he does not like them. He refuses to get more physical therapy help at home at this time. (3) ESRD (end stage renal disease) Onset Date: 01/31/17 Current Visit: No Status: Acute Plan: Continue dialysis per nephrology. (4) HIV (human immunodeficiency virus infection) Current Visit: No Status: Acute Plan: CD4 count and HIV viral load ordered, pending - continue to monitor vital signs, monitor closely for fever (5) Supratherapeutic INR Current Visit: Yes Status: Acute Plan: INR not therapeutic. We will continue home Coumadin and monitor INR (6) Atrial fibrillation Current Visit: No Status: Chronic Plan: Patient was supratherapeutic INR on admission. Coumadin held. Restart Coumadin as INR now therapeutic - goal INR of 2.0-3.0 - status post FFP in the ER Qualifiers: Atrial fibrillation type: chronic Qualified Code(s): I48.2 - Chronic atrial fibrillation (7) Hypertension Onset Date: 10/17/17 Current Visit: No Status: Chronic Plan: Stable, continue home medication Qualifiers: Hypertension type: essential hypertension Qualified Code(s): I10 - Essential (primary) hypertension - Plan DVT prophylaxis: On home anticoagulation GI prophylaxis: None Diet: Renal Disposition: Pending symptomatic improvement. He will need thorough medication review/changes prior to discharge. Likely discharge home in the morning if feeling better. Discharge Plan: Home Plan to discharge in: 24 Hours
[2018-09-17] MEDS: MANNITOL 25% 12.5 GM/50 ML VIAL IV PRN (16:54)
[2018-09-17] MEDS: EPOETIN ALFA 10,000 UNIT/ML VIAL IV SCH (16:56)
[2018-09-17] MEDS: HYDROCODONE/CHLORPHEN 5 ML/OSYR PO SCH (20:16)
--- NOTE | 2018-09-17 22:10 | P.PN ---
Date of Service: 09/17/18 Vital Signs Temp Pulse Resp BP Pulse Ox 96.9 F 44 L 16 113/56 L 92 09/17/18 20:00 09/17/18 20:00 09/17/18 20:00 09/17/18 20:00 09/17/18 20:00 Medications Amiodarone HCl (Cordarone Tab) 200 mg PO DAILY [facility] Stop: 10/16/18 09:01 Last Admin: 09/17/18 09:30 Dose: 200 mg Amlodipine Besylate (Norvasc) 10 mg PO DAILY [facility] Stop: 10/17/18 09:01 Last Admin: 09/17/18 09:30 Dose: 10 mg Aspirin (Aspirin Chewable) 81 mg PO DAILY [facility] Stop: 10/17/18 09:01 Last Admin: 09/17/18 09:29 Dose: 81 mg Cetirizine HCl (Zyrtec) 10 mg PO DAILY [facility] Stop: 10/17/18 09:01 Last Admin: 09/17/18 09:00 Dose: 10 mg Chlorphenir/Hydrocodone Polistirex (Tussionex Oral Susp) 5 ml PO Q12HR TAYLOR Stop: 10/17/18 09:01 Last Admin: 09/17/18 20:16 Dose: 5 ml Epoetin Raji (Procrit) 10,000 unit IV EVERY HD [facility] Stop: 10/16/18 10:31 Last Admin: 09/17/18 16:56 Dose: 10,000 unit Famotidine (Pepcid) 20 mg PO DAILY [facility]; Protocol Stop: 10/17/18 09:01 Last Admin: 09/17/18 09:32 Dose: 20 mg Furosemide (Lasix) 80 mg PO BIDL TAYLOR Stop: 10/16/18 17:01 Last Admin: 09/17/18 16:29 Dose: Not Given Heparin Sodium (Porcine) (Heparin 1,000 Units/Ml) 6,000 unit IV EVERY HD PRN PRN Reason: FLUSH AFTER EACH USE Stop: 10/16/18 10:25 Last Admin: 09/17/18 16:56 Dose: 6,000 unit Heparin Sodium (Porcine) (Heparin 1,000 Units/Ml) 3,000 unit IV EVERY HD TAYLOR Stop: 09/20/18 11:01 Last Admin: 09/17/18 19:05 Dose: 3,000 unit Home Med (Atazanavir Sulfate [Reyataz]) 300 mg PO BREAKFAST TAYLOR Stop: 10/16/18 08:01 Last Admin: 09/17/18 08:00 Dose: Not Given Home Med (Lamivudine [Lamivudine Hbv]) 50 mg PO DAILY TAYLOR Stop: 10/16/18 09:01 Last Admin: 09/17/18 09:00 Dose: Not Given Home Med (Ritonavir [Norvir]) 100 mg PO BID TAYLOR Stop: 10/16/18 09:01 Last Admin: 09/17/18 20:18 Dose: Not Given Home Med (Abacavir Sulfate [Ziagen]) 600 mg PO DAILY TAYLOR Stop: 10/17/18 09:01 Last Admin: 09/17/18 09:00 Dose: Not Given Home Med (Fluticasone Propionate [24 Hour Allergy]) 1 spr IH DAILY [facility] Stop: 10/17/18 09:01 Last Admin: 09/17/18 09:00 Dose: Not Given Albumin Human (Albumin 25%) 50 mls @ 100 mls/hr IV EVERY HD [facility] Stop: 10/16/18 11:01 Insulin Glargine (Lantus) 12 units SQ DAILY [facility] Stop: 10/16/18 09:01 Mannitol (Mannitol 12.5 Gm/50 Ml Vial) 12.5 gm IV EVERY HD PRN PRN Reason: Titrate to SBP (MUST DEFINE) Stop: 10/16/18 10:25 Last Admin: 09/17/18 16:54 Dose: 12.5 gm Metoprolol Succinate (Toprol Xl) 25 mg PO DAILY [facility] Stop: 10/16/18 09:01 Last Admin: 09/17/18 09:25 Dose: 25 mg Morphine Sulfate (Morphine Sulfate) 4 mg IV Q4H PRN PRN Reason: Pain scale 8-10 (Severe) Stop: 10/15/18 21:06 Ondansetron HCl (Zofran) 4 mg IV Q6H PRN PRN Reason: NAUSEA / VOMITING Stop: 10/15/18 21:06 Ropinirole HCl (Requip) 0.5 mg PO BEDTIME TAYLOR Stop: 10/15/18 23:01 Last Admin: 09/15/18 23:00 Dose: Not Given Sevelamer Carbonate (Renvela) 800 mg PO TIDWM TAYLOR Stop: 10/16/18 17:01 Last Admin: 09/17/18 16:29 Dose: 800 mg Sodium Chloride (Normal Saline Flush) 10 ml IV BID TAYLOR Stop: 10/16/18 09:01 Last Admin: 09/17/18 20:16 Dose: 10 ml Microbiology Results 09/15/18 20:15 Catheterized Urine Loma Count - Preliminary <10,000 CFU/ML. 09/15/18 20:15 Catheterized Urine - Preliminary No growth. 09/15/18 19:50 Blood - Blood Aerobic Blood Culture - Final 09/15/18 19:50 Blood - Blood Gram Stain - Final 09/15/18 19:50 Blood - Blood Anaerobic Blood Culture - Final 09/15/18 20:05 Blood - Blood Aerobic Blood Culture - Preliminary No growth in 24 hours. 09/15/18 20:05 Blood - Blood Anaerobic Blood Culture - Final Assessment/ Plan: Nephrology. Feeling better today. CPS improved without CP or SOB. No acute events overnight. Vitals, medications, blood work and imaging reviewed in the chart. General: In no apparent distress, Cooperative, Confused HEENT: Atraumatic Neck: Supple Respiratory: Clear to auscultation bilaterally Cardiovascular: Regular rate/rhythm, Edema Gastrointestinal: Soft and benign, Non-distended Musculoskeletal: No clubbing, No contractures Integumentary: No rashes, No cyanosis Neurological: Normal speech Urinary: Dialysis catheter Blood work reviewed in the chart. Hgb 9.3 Imagings Data: EXAM DESCRIPTION: RAD - Chest Single View - 09/15/2018 6:04 pm CLINICAL HISTORY: dizziness Chest pain. COMPARISON: <Comparisons> FINDINGS: Portable technique limits examination quality. The lungs are grossly clear. The heart is moderately enlarged in size. Left- sided venous catheter tip in the SVC. IMPRESSION: No acute intrathoracic process suspected. Conclusions/Impression: A/ ESRD on HD. HTN with CKD/ CHF. DM II with CKD. Diastolic CHF, chronic. Anemia in CKD. ABE/ Secondary HyperPTH. Toxic metabolic encephalopathy due to multiple medications. P/ Continue current POC and Medications. Arrange for acute HD today. Next HD tomorrow. Titrate insulin as needed. Agree with abx. Follow up cultures. No NSAIDs. AM labs. Daily weight.
[2018-09-18 05:43] VITALS: BMI 32.8
[2018-09-18] MEDS: ATAZANAVIR SULFATE 300 MG PO SCH (08:00)
[2018-09-18] MEDS: RITONAVIR 100 MG PO SCH (09:00)
[2018-09-18] MEDS: [UNRECOGNIZED DRUG - REMARK] IH SCH (09:00)
[2018-09-18] MEDS: LAMIVUDINE 50 MG PO SCH (09:00)
[2018-09-18] MEDS: ABACAVIR SULFATE 600 MG PO SCH (09:00)
[2018-09-18] MEDS: CETIRIZINE HCL 5 MG TABLET PO SCH (09:46)
[2018-09-18] MEDS: ASPIRIN 81 MG CHEWABLE TABLET PO SCH (09:46)
[2018-09-18] MEDS: AMLODIPINE 10 MG TAB PO SCH (09:46)
[2018-09-18] MEDS: FAMOTIDINE 20 MG TAB PO SCH (09:47)
[2018-09-18] MEDS: FUROSEMIDE 40 MG TABLET PO SCH (09:47)
[2018-09-18] MEDS: AMIODARONE HCL 200 MG TAB PO SCH (09:47)
[2018-09-18] MEDS: SEVELAMER CARBONATE 800 MG TABLET PO SCH (09:48)
[2018-09-18] MEDS: HYDROCODONE/CHLORPHEN 5 ML/OSYR PO SCH (09:49)
[2018-09-18 16:25] VITALS: BP 107/53; TEMP 97
--- NOTE | 2018-09-18 21:42 | P.PN ---
Date of Service: 09/18/18 Vital Signs Temp Pulse Resp BP Pulse Ox 97 F 112 H 18 107/53 L 95 09/18/18 16:00 09/18/18 16:00 09/18/18 16:00 09/18/18 16:00 09/18/18 16:00 Microbiology Results 09/15/18 20:15 Catheterized Urine Rigby Count - Final 09/15/18 20:15 Catheterized Urine - Final No growth. 09/15/18 19:50 Blood - Blood Aerobic Blood Culture - Final 09/15/18 19:50 Blood - Blood Gram Stain - Final 09/15/18 19:50 Blood - Blood Anaerobic Blood Culture - Final 09/15/18 20:05 Blood - Blood Aerobic Blood Culture - Preliminary No growth in 24 hours. 09/15/18 20:05 Blood - Blood Anaerobic Blood Culture - Final Assessment/ Plan: Nephrology. Feeling better today. CPS improved without CP or SOB. No acute events overnight. Vitals, medications, blood work and imaging reviewed in the chart. General: In no apparent distress, Cooperative, Confused HEENT: Atraumatic Neck: Supple Respiratory: Clear to auscultation bilaterally Cardiovascular: Regular rate/rhythm, Edema Gastrointestinal: Soft and benign, Non-distended Musculoskeletal: No clubbing, No contractures Integumentary: No rashes, No cyanosis Neurological: Normal speech Urinary: Dialysis catheter Blood work reviewed in the chart. Hgb 9.3 Imagings Data: EXAM DESCRIPTION: RAD - Chest Single View - 09/15/2018 6:04 pm CLINICAL HISTORY: dizziness Chest pain. COMPARISON: <Comparisons> FINDINGS: Portable technique limits examination quality. The lungs are grossly clear. The heart is moderately enlarged in size. Left- sided venous catheter tip in the SVC. IMPRESSION: No acute intrathoracic process suspected. Conclusions/Impression: A/ ESRD on HD. HTN with CKD/ CHF. DM II with CKD. Diastolic CHF, chronic. Anemia in CKD. ABE/ Secondary HyperPTH. Toxic metabolic encephalopathy due to multiple medications. P/ Continue current POC and Medications. Arrange for acute HD today with possible discharge after HD today. Titrate insulin as needed. Agree with abx. Medication adjustment counseled. No NSAIDs. AM labs. Daily weight.
== END 2018-09-18 17:05 | disposition home or self-care (01) ==
LOC: ER 17:22 → INTOOBSV 21:23 → ERHOLD 21:23 → 4TH 22:52
PROVIDERS: ADMIT Hospitalist; ATTEND Hospitalist
DX: R41.82 Altered mental status, unspecified (principal); R53.1 Weakness; I13.2 Hypertensive heart and chronic kidney disease with heart failure and with stage 5 chronic kidney disease, or end stage renal disease; I50.32 Chronic diastolic (congestive) heart failure; N18.6 End stage renal disease; E11.22 Type 2 diabetes mellitus with diabetic chronic kidney disease; Z21 Asymptomatic human immunodeficiency virus [HIV] infection status; Z99.2 Dependence on renal dialysis; Z85.038 Personal history of other malignant neoplasm of large intestine; G92 Toxic encephalopathy; I48.2 Chronic atrial fibrillation; Z79.01 Long term (current) use of anticoagulants
CPT/HCPCS: 96365; 96367; 96361; 93005; 87040 ×2; 87088; 85025 ×3; 80048; 36415 ×2; 86900; 83735 ×2; 86850; 87205; 84100; 85610 ×3; 86901; 82962 ×11; 80076; 85730; 81003; 84484; 82607; 80053 ×2; 83880; 70450; 71045; 90935 ×2; 70551; 97116 ×3; 97163; 97530 ×2; 82805; 51702; 96375; 99285; J2150 ×4; J3411; J1940; Q4081 ×3; J1644 ×6; J0696 ×2; P9017; J7030; G0257; 87086

== ENCOUNTER 2018-11-10 19:47 | Inpatient (IN) | payer OTHER ==
[~2018-11-10 19:47] MED LIST: RSI MEDICATION KIT IV ONE
[2018-11-10] MEDS ORDERED: NA CHLORIDE 0.9% 1,000 ML ONE (19:48)
--- OUTSIDE RECORDS SUMMARY | 2018-11-10 19:49 | XMS REPORT | CCD ---
:1945 Author Organization [facility] Care Team Providers Name Role Phone JAYLA Foster Consulting Provider Unavailable Cindy Bonner Consulting Provider Ofelia Short Consulting Provider Kathy Horvath Consulting Provider Rakel Hoyos Consulting Provider [employer], Login Consulting Provider Unavailable Scarlett Bartlett Consulting Provider Yani Godinez Consulting Provider [phone] Prudence Mi Consulting Provider Unavailable SYSTEM, SYSTEM Consulting Provider Unavailable Cam Keonig Consulting Provider [phone] Eduarda Rodas Consulting Provider [phone] Ben Dent Referring Provider Joanne Gamboa Consulting [...]
--- OUTSIDE RECORDS SUMMARY | 2018-11-10 19:49 | XMS REPORT | Continuity of Care Document ---
:1945 Author Organization [employer] [facility] Care Team Providers Name Role Phone [employer] [facility] Unavailable Unavailable Problems Problem Status Onset Classification [...] disease 7 - [place] 585.6 ESRD Active [facility] 3 585.6/ [address]/ Active [facility] 1 Hemodialysis1 Active Problem 08/17/2010 1Mon, Wed, [facility] 1 Fri HIV Active Problem 08/17/2010 [facility] Renal disease Active Problem 08/17/2010 [facility] Syncope Active Problem 08/17/2010 [facility] END STAGE Active [facility] RENAL DISEASE Medications Medication Details Route [...] [facility] [place] Lamivudine DAILY Active [facility] St. 017 [facility] [place] Atorvastatin AT BEDTIME Active [facility] St. Calcium 017 [facility] [place] Metoprolol DAILY Active [facility] St. Succinate 017 [facility] [place] Gabapentin DAILY Active [facility] St. 017 [facility] - [place] Ritonavir DAILY Active [facility] St. 017 [facility] [place] Sevelamer THREE Active [facility] St. Carbonate TIMES A 017 [facility] [place] Vit B DAILY Active [facility]. Comp&C/Folic 017 [facility] - Acid/Vit D3 [place] metoprolol 5 mg, 5 IVP No Filipe [facility] mL, Route: Longer 011 IVP, Drug Active form: INJ, ONCE, Start date: 08/16/10 11:48:00, Stop date: 08/16/10 11:48:00 fentanyl 25 IVP No Clowney [facility] microgram, Longer 011 Route: Active IVP, ONCE, Start date: 08/16/10 10:55:00, Stop date: 08/16/10 10:55:00 Allergies, Adverse Reactions, Alerts No Known Medication Allergies Immunizations No Data Provided for This Section Results Order Name Results Value Reference Date Interpretation Comments Source Range Laboratory Vancomycin Level <3.5 5 - 20 02/[address] [facility] St. Studies Trough [employer] - [place] Laboratory Bedside Glucose 143 65 - 120 02/01 [facility]. [employer] - [place] Laboratory White Blood 6.7 4.3 - 10.9 02/[address] [facility] St. Studies Count /2016 [facility] [place] Laboratory Red Cell 13.3 12.1 - 02/[address] [facility] St. Studies Distribution 15.2 [facility] - Width [place] Laboratory Red Blood Count 3.33 4.33 - 02/[address] [facility] St. Studies 5.43 /2016 [employer] - [place] Laboratory Platelet Count 185 152 - 406 02/01 [facility]. /2016 [facility] [place] Laboratory Neutrophils % 66.1 41.7 - [address] [facility] St. Studies 73.7 /2016 [facility] [place] Laboratory Monocytes % 13.0 3.3 - 12.3 02/[address] [facility] St. Studies /2016 [facility] [place] Laboratory Mean Platelet 8.9 7.6 - 11.3 02/[address] [facility] St. Studies Volume /2016 [facility] [place] Laboratory Mean Corpuscular 93.3 80 - [address] [facility] St. Studies Volume /2016 [facility] [place] Laboratory Mean Corpuscular 34.8 32.0 - [address] [facility] St. Studies Hemoglobin 36.0 /2016 [facility] - Concent [place] Laboratory Mean Corpuscular 32.5 27.0 - [address] [facility] St. Studies Hemoglobin 35.0 /2016 [facility] [place] Laboratory Lymphocytes % 18.5 15.3 - [address] [facility] St. Studies 44.8 /2016 [facility] [place] Laboratory Hemoglobin 10.8 13.6 - 02/[address] [facility] St. Studies 17.9 /2016 [facility] [place] Laboratory Hematocrit 31.1 39.6 - 02/[address] [facility] St. Studies 49.0 /2016 [facility] [place] Laboratory Eosinophils % 1.9 0 - 4.4 02/[address] [facility] St. Studies /2016 [facility] [place] Laboratory Basophils % 0.5 0 - 1.3 02/[address] [facility] St. Studies /2016 [facility] [place] Laboratory Absolute 4.4 1.8 - 8.0 02/[address] [facility] St. Studies Neutrophil /2016 [facility] [place] Laboratory Absolute 0.9 0.1 - 1.3 02/01 [facility]. Studies Monocytes (CBC) /2016 [facility] [place] Laboratory Absolute 1.2 0.7 - 4.9 02/[address] [facility] St. Studies Lymphocytes [facility] - (CBC) [place] Laboratory Absolute 0.1 0 - 0.5 02/01 [facility]. Studies Eosinophils /2016 [facility] - (CBC) [place] Laboratory Absolute 0.0 0 - 0.5 02/01 [facility]. Studies Basophils (CBC) /2016 [facility] [place] Laboratory Creatinine 6.09 0.61 - 02/[address] [facility] St. Studies 1.24 /2016 [facility] [place] Laboratory Total Bilirubin 0.8 0.3 - 1.2 02/[address] [facility] St. Studies /2016 [facility] [place] Laboratory Sodium Level 139 135 - 145 02/[address] [facility] St. Studies /2016 [facility] [place] Laboratory Serum Total 6.1 6.0 - 8.3 02/01 [facility] Studies Protein [employer] - [place] Laboratory Potassium Level 4.1 3.6 - 5.0 02/01 [facility]. Studies [employer] - [place] Laboratory Glucose Level 79 65 - 120 02/01 [facility]. [facility] Globulin 3.0 2.3 - 3.5 02/01 [facility] [employer] [facility] Estimat 9 90 02/01 [facility]. Studies Glomerular [employer] - Filtration Rate [place] Laboratory Chloride Level 104 101 - 111 02/01 [facility]. Studies [employer] [facility] Carbon Dioxide 25 21 - 31 02/01 [facility] Studies Level [employer] [facility] Calcium Level 8.4 8.5 - 10.5 02/01 [facility] [employer] [facility] Blood Urea 63 6 - 20 02/01 [facility] Studies Nitrogen [employer] [facility] Aspartate Amino 47 10 - 42 02/01 [facility]. Studies Transf [employer] - (AST/SGOT) [facility] Alkaline 35 42 - 121 02/01 [facility] Studies Phosphatase [employer] [facility] Albumin/Globulin 1.0 1.1 - 1.8 02/01 [facility] Studies Ratio [employer] [facility] Albumin 3.1 3.2 - 5.5 02/01 [facility] [employer] [facility] Alanine 30 10 - 60 02/01 [facility] Studies Aminotransferase [employer] - (ALT/SGPT) [facility] Hemoglobin A1c 6.0 4 - 6.0 01/30 [facility]. [employer] [facility] Magnesium Level 2.2 1.8 - 2.5 01/30 [facility] [employer] - [place] Laboratory Other Total 10.7 12 - 18 01/30 [facility] Studies Hemoglobin [employer] - (Blood Gas) [facility] Blood Gas pH 7.40 7.35 - 11 [facility]. Studies 7. [employer] - [place] Laboratory Blood Gas PO2 65.8 75 - 100 01/30 [facility] [employer] [facility] Blood Gas PCO2 32.6 35 - 45 01/[address] [facility] St. Studies [employer] - [place] Laboratory Blood Gas 90.9 94 - 97 01/[address] [facility] St. Studies Oxyhemoglobin [employer] - [place] Laboratory Blood Gas 36.0 01/[address] [facility] St. Studies Inspired Oxygen [facility] [place] Laboratory Blood Gas HCO3 19.5 22 - 28 01/30 St. Studies [facility] [place] Laboratory Blood Gas Base -4.5 01/[address] [facility] St. Studies Excess [facility] [place] Laboratory Arterial Blood 1.1 0 - 1.5 01/[address] [facility] St. Studies Methemoglobin /2016 [facility] [place] Laboratory Arterial Blood 1.0 0 - 1.5 01/[address] [facility] St. Studies Carboxyhemoglobi /2016 [employer] - n [place] Laboratory Arterial Bld O2 92.9 92 - 98.5 01/30 [facility]. Studies Saturation [employer] - (Measur) [place] Laboratory Thyroid 1.59 0.34 - 01/[address] [facility] St. Studies Stimulating 5.60 [employer] - Hormone (TSH) [place] Laboratory Procalcitonin 0.26 01/[address] [facility] St. Studies [facility] [place] Laboratory B-Type 652 01/[address] [facility] St. Studies Natriuretic [employer] - Peptide [place] Laboratory Creatine Kinase 2.3 0.3 - 4.0 01/[address] [facility] St. Studies MB [facility] [place] Laboratory Direct Bilirubin 0.2 0 - 0.2 01/[address] [facility] St. Studies [facility] [place] Laboratory Creatine Kinase 507 22 - [address] [facility] St. Studies [facility] [place] Laboratory Amylase Level 35 28 - 100 01/[address] [facility] St. Studies [facility] [place] Laboratory Rapid Troponin I 0.06 01/[address] [facility] St. Studies [facility] [place] Laboratory Lipase 21 22 - 51 01/[address] [facility] St. Studies [facility] [place] Laboratory Lactic Acid 12.1 4.5 - 19.8 01/[address] [facility] St. Studies Level [facility] [place] [facility] Prothrombin Time 13.0 9.5 - 12.5 01/[address] [facility] St. Studies [facility] [place] Laboratory INR 1.10 01/[address] [facility] St. Studies International /2016 [facility] - Normalized Ratio [place] Laboratory Activated 30.6 24.3 - 01/[address] [facility] St. Studies Partial 36.9 [facility] - Thromboplast [place] Time BEDSIDE Gluc POC Lifscn 177.0 65 - 110 08/16 HI <sup>1</sup GLUCOSE >Interpreti [facility] TESTING ve Data: Upper Reportable Limit: 200 mg/dL. Pathology Reports No Data Provided for This Section Diagnostic Reports No Data Provided for This Section Consultation Notes No Data Provided for This Section Discharge Summaries No Data Provided for This Section History and Physicals No Data Provided for This Section Vital Signs Vital Sign Value Date Comments Source Heart Rate 92 02/01/[address] [facility] [place] Respitory Rate 16 02/01/[address] [facility] [place] Systolic (mm Hg) 148 02/01/[address] [facility] [place] Diastolic (mm Hg) 70 02/01/[address] [facility] [place] Temperature Oral (F) 96.9 F 02/01/[address] [facility] [place] Height 71 01/31/[address] [facility] [place] Weight 250.00 01/31/[address] [facility] [place] Diastolic (mm Hg) 72.0 08/16/2010 [facility] Respitory Rate 20.0 08/16/2010 [facility] Systolic (mm Hg) 160.0 08/16/2010 [facility] Diastolic (mm Hg) 73.0 08/16/2010 [facility] Respitory Rate 20.0 08/16/2010 [facility] Systolic (mm Hg) 155.0 08/16/2010 [facility] Diastolic (mm Hg) 89.0 08/16/2010 [facility] Respitory Rate 14.0 08/16/2010 [facility] Systolic (mm Hg) 182.0 08/16/2010 [facility] Diastolic (mm Hg) 86.0 08/16/2010 [facility] Systolic (mm Hg) 171.0 08/16/2010 [facility] Respitory Rate 14.0 08/16/2010 [facility] Diastolic (mm Hg) 72.0 08/16/2010 [facility] Systolic (mm Hg) 153.0 08/16/2010 [facility] Respitory Rate 13.0 08/16/2010 [facility] Diastolic (mm Hg) 80.0 08/16/2010 [facility] Respitory Rate 9.0 08/16/2010 [facility] Temperature Oral (F) 98.1 F 08/16/2010 [facility] Systolic (mm Hg) 159.0 08/16/2010 [facility] Height 180.34 cm 08/16/2010 [facility] Weight 105.909 08/16/2010 [facility] Diastolic (mm Hg) 82.0 08/16/2010 [facility] Respitory Rate 16.0 08/16/2010 [facility] Temperature Oral (F) 98.5 F 08/16/2010 [facility] Systolic (mm Hg) 176.0 08/16/2010 [facility] Height 180.34 cm 08/14/2010 [facility] Weight 104.545 08/14/2010 [facility] Encounters Location Location Encounter Encounter Reason Attending ADM DC Status Source Details Type Number For Provider Date Date Visit [facility] [id number] 585.6/ ANETTE 08/16 08/16 Active [facility] 78011/ FILIPE /[address] [facility] [id number] 01/30 02/[address] [facility]2016 [facility] [place] [facility] [id number] 585.6 CAROLINA Cancel [facility] ESRD LOYD Jose dalton Procedures Procedure Code Date Perfomer Comments Source Chest Pa And Lat [id number] 01/31/[address] [facility] - (2 Views) [place] Anaerobic Blood [id number] 01/30/[address] [facility] - Culture [place] Aerobic Blood [id number] 01/30/[address] [facility] Culture [place] Count [id number] 01/30/[address] [facility] [place] [id number] 01/30/[address] [facility] [place] Chest Single [id number] 01/30/[address] [facility] - View [place] [...] Query Response Date Recorded Comment 02/01/2017 IFEANYI Florez - Evanjona Alcohol Use? No January 31, 2017 11:52am [...] February 01, 2017 6:00am Durable Power of Radio Division Officer for Health Care No January 30, 2017 5:17pm Would you like additional information No January 30, 2017 5:17pm Functional Status No Data Provided for This Section
--- OUTSIDE RECORDS SUMMARY | 2018-11-10 19:58 | XMS REPORT ---
:1945 Author Organization [facility] Address [address] [place] [address] [address] [place] [address] Care Team Providers Name Role Phone JOSH POEKAELA Unavailable Unavailable LEONIE LIPSCOMB Unavailable Unavailable GUILLEN, HUMBERTO TIERNEY Unavailable Unavailable YOEL FELICIANO Unavailable Unavailable RUSSELL CALDERON Unavailable Unavailable Problems This patient has no known problems. Allergies, Adverse Reactions, Alerts This patient has no known allergies or adverse reactions. Medications This patient has no known medications. Results Test Description Test Time Test Comments Text Results Atomic Results Result Comments POCT-GLUCOSE METER 2018-11-05 08:00:00 Test Item Value Reference Range Comments POC-GLUCOSE METER (BEAKER) (test 99 mg/dL 70-110 TESTED AT [facility] [address] [facility] nddo=[id number]) [facility] [address] ANG, TUNNELED CATHETER [id number] 12:00:00Reason for exam:-> Hemodialysis patientFINAL REPORT Procedure: Tunneled hemodialysis catheter placement. Central venography. History: End-stage renal disease. Hemodialysis. Gallery Or Museum Curator: Jeremi Morley MD. Dubbing Machine Operator: Luci Burks Modality: Sonography and fluoroscopy. DOSE REDUCTION: The examination was performed according to departmental dose-optimization program which includes automated exposure control , adjustment of the mA and/or kV according to patient size and/or use of iterative reconstruction technique. Fluoro time: 3.8 minutes Radiation dose for this procedure was 48.7 mGy. Sedation: None. The patient was monitored by adedicated RN under direct supervision of Dr. Morley. Anesthesia: Lidocaine 2% local infiltration.Physician intra-service sedation time was not applicable. Estimated blood loss: < 5 cc. Technique: Informed written consent was obtained. Discussion of risks, benefits, and alternatives were made with the patient. The patient expressed understanding and agreed to proceed. A universal timeout was performed prior to starting the procedure. The procedure room personnel used personal protective equipment. The operators used sterile gowns and gloves additionally. A preliminary ultrasonogram was performed of the neck that revealed a patent and compressible right internal jugular vein. Pertinent ultrasound images were stored in the PACS for documentation. A sterile prep anddrape of the right neck and upper chest was performed using standard technique. Using aseptic precautions, real-time ultrasound guidance, the right internal jugular vein was accessed after local anesthetic infiltration and dermatotomy with a micropuncture needle. A 018 guidewire was advanced into the central venous system under fluoroscopic guidance. The guidewire could not be advanced beyond the proximal right innominate vein. Over the wire a 3 Albanian dilator of the micropuncture sheath was placed. This was used to perform a central venogram. It revealed an internal jugular vein with central protrusion and reflux of towards the head and into neck collaterals. This access was withdrawn. Hemostasis was achieved with manual compression and a Monocryl pursestring suture and Dermabond. Later an aseptic dressing was applied. The preliminary ultrasonography had revealed a patent right external jugular vein. It was included in the sterile prep field. After local anesthesia and dermatotomy, using real-time ultrasonographic guidance, this vein was accessed just above the clavicle with a micropunctureneedle. A 018 guidewire was advanced into the central venous system under fluoroscopy without difficulty. Over the wire a micropuncture sheath was placed. Through the micropuncture sheath, a 035 wire was advanced into the venous system under fluoroscopic guidance. After local anesthetic administration using sharp and blunt dissection, tunneled dialysis catheter was tunneled from a right infraclavicular skin exit site to the venotomy site. Over the wire following sequential dilatation of the tract, a peel-away sheath was placed. The catheter was introduced into the venous system through the peel-away sheath. After confirming satisfactory position of the catheter, the peel-away sheath was removed. The catheter ports aspirated and flushed well and were terminally packed with citrate. The patient isallergic to heparin. The catheter was secured to skin with nonabsorbable suture. The venotomy site was closed with Monocryl 3-0 and Dermabond. An aseptic dressing was applied. The patient was transferred to the recovery area and was discharged from the department in stable condition. Complications: None immediate. Findings: Occluded distal right internal jugular vein. Final image shows the catheter to be in good position with the catheter tip in the right atrium an excellent position for use. There is no complication. Impression: Successful ultrasound and fluoroscopic guided right external jugular vein route 23 cm cuff to tip length Duraflow tunneled hemodialysis catheter placement as described above. Occluded distal right internal jugular vein. Thank you for the opportunity to assist in the care of your patient.Signed: Jeremi Morley MDReport Verified Date/Time: 11/04/2018 12: 00:24 Reading Location: [facility] P048 Angio Body Reading Room POCT-GLUCOSE [id number] 11:59:00 Test Item Value Reference Range Comments POC-GLUCOSE METER (BEAKER) 203 mg/dL 70-110 TESTED AT [facility] [address] [facility] (test vhoi=2670) [facility] [address] BASIC METABOLIC [id number] 06:08:00 Test Item Value Reference Range Comments SODIUM (BEAKER) (test 133 meq/L 136-145 viyu=174) POTASSIUM (BEAKER) (test 4.8 meq/L 3.5-5.1 fybm=289) CHLORIDE (BEAKER) (test 99 meq/L 98-107 pzxh=605) CO2 (BEAKER) (test 24 meq/L 22-29 ecjf=529) BLOOD UREA NITROGEN 37 mg/dL 7-21 (BEAKER) (test lret=403) CREATININE (BEAKER) (test 6.24 mg/dL 0.57-1.25 oukx=756) GLUCOSE RANDOM (BEAKER) 98 mg/dL 70-105 (test jaqv=726) CALCIUM (BEAKER) (test 9.5 mg/dL 8.4-10.2 pjxh=852) EGFR (BEAKER) (test 9 mL/min/1.73 sq m ESTIMATED GFR IS NOT oeqy=7784) ACCURATE CREATININE CLEARANCE IN PREDICTING GLOMERULAR FILTRATION RATE. ESTIMATED GFR IS NOT APPLICABLE FOR DIALYSIS PATIENTS. [id number] 06:07:00 Test Item Value Reference Range Comments PHOSPHORUS (BEAKER) (test jhvc=582) 5.3 mg/dL 2.3-4.7 [id number] 06:07:00 Test Item Value Reference Range Comments MAGNESIUM (BEAKER) (test qtci=319) 2.5 mg/dL 1.6-2.6 CBC W/PLT COUNT & AUTO [id number] 05:28:00 Test Item Value Reference Range Comments WHITE BLOOD CELL COUNT (BEAKER) (test oemc=703) 7.4 K/ L 3.5-10.5 RED BLOOD CELL COUNT (BEAKER) (test digg=390) 3.18 M/ L 4.63-6.08 HEMOGLOBIN (BEAKER) (test utbd=445) 10.2 GM/DL 13.7-17.5 HEMATOCRIT (BEAKER) (test vxwr=895) 31.9 % 40.1-51.0 MEAN CORPUSCULAR VOLUME (BEAKER) (test jgzu=701) 100.3 fL 79.0-92.2 MEAN CORPUSCULAR HEMOGLOBIN (BEAKER) (test 32.1 pg 25.7-32.2 jbkv=504) MEAN CORPUSCULAR HEMOGLOBIN CONC (BEAKER) (test 32.0 GM/DL 32.3-36.5 wobh=542) RED CELL DISTRIBUTION WIDTH (BEAKER) (test 15.0 % 11.6-14.4 pujo=517) PLATELET COUNT (BEAKER) (test hohm=978) 177 K/CU MM 150-450 MEAN PLATELET VOLUME (BEAKER) (test odjo=193) 11.6 fL 9.4-12.4 NUCLEATED RED BLOOD CELLS (BEAKER) (test 0 /100 WBC 0-0 nocc=348) NEUTROPHILS RELATIVE PERCENT (BEAKER) (test 73 % ujsv=438) LYMPHOCYTES RELATIVE PERCENT (BEAKER) (test 9 % bjpt=217) MONOCYTES RELATIVE PERCENT (BEAKER) (test 11 % rjeg=013) EOSINOPHILS RELATIVE PERCENT (BEAKER) (test 4 % fcrm=762) BASOPHILS RELATIVE PERCENT (BEAKER) (test 2 % ljut=195) NEUTROPHILS ABSOLUTE COUNT (BEAKER) (test 5.42 K/ L 1.78-5.38 mqzw=515) LYMPHOCYTES ABSOLUTE COUNT (BEAKER) (test 0.68 K/ L 1.32-3.57 zfwm=375) MONOCYTES ABSOLUTE COUNT (BEAKER) (test 0.78 K/ L 0.30-0.82 okid=338) EOSINOPHILS ABSOLUTE COUNT (BEAKER) (test 0.29 K/ L 0.04-0.54 hlhb=810) BASOPHILS ABSOLUTE COUNT (BEAKER) (test 0.15 K/ L 0.01-0.08 gfxj=560) IMMATURE GRANULOCYTES-RELATIVE PERCENT (BEAKER) 1 % 0-1 (test lzga=9377) POCT-GLUCOSE [id number] 21:49:00 Test Item Value Reference Range Comments POC-GLUCOSE METER (BEAKER) 155 mg/dL 70-110 TESTED AT [address] (test sahz=7328) [place] [address] POCT-GLUCOSE [id number] 17:39:00 Test Item Value Reference Range Comments POC-GLUCOSE METER (BEAKER) 79 mg/dL 70-110 TESTED AT [address] (test euiq=4315) [place] [address] RAD, CHEST, 1 VIEW, NON [id number] 13:18:00Reason for exam:->sob.Should this be performed at the bedside?->YesFINAL REPORT CLINICAL HISTORY: sob. TECHNIQUE: 1 view of the chest. COMPARISON: 10/27/2018 IMPRESSION: A left jugular line is again seen. The vascular congestion is again noted with diffuse bilateral airspace opacities and layering pleural effusions, grossly unchanged. The cardiomediastinal silhouette is magnified by technique. Left axillary vascular stent is again noted. Signed: Stephanie Santacruz MDReport Verified Date/Time: 11/03/2018 13:18:35 Reading Location: [facility] Radiology Reading Room Electronically signed by: STEPHANIE SANTACRUZ M.D. on 01:18 PMPOCT-GLUCOSE [id number] 12:06:00 Test Item Value Reference Range Comments POC-GLUCOSE METER (BEAKER) 85 mg/dL 70-110 TESTED AT [address] (test xjtr=1513) [place] [address] POCT-GLUCOSE [id number] 08:42:00 Test Item Value Reference Range Comments POC-GLUCOSE METER (BEAKER) 87 mg/dL 70-110 TESTED AT [address] (test avyt=7371) [place] [address] BASIC METABOLIC [id number] 06:41:00 Test Item Value Reference Range Comments SODIUM (BEAKER) (test 135 meq/L 136-145 udqq=819) POTASSIUM (BEAKER) (test 4.4 meq/L 3.5-5.1 emrf=325) CHLORIDE (BEAKER) (test 100 meq/L 98-107 sftg=408) CO2 (BEAKER) (test 25 meq/L 22-29 sfme=588) BLOOD UREA NITROGEN 28 mg/dL 7-21 (BEAKER) (test zsby=373) CREATININE (BEAKER) (test 4.95 mg/dL 0.57-1.25 uluz=648) GLUCOSE RANDOM (BEAKER) 86 mg/dL 70-105 (test ztrm=683) CALCIUM (BEAKER) (test 9.1 mg/dL 8.4-10.2 ruvy=091) EGFR (BEAKER) (test 12 mL/min/1.73 sq m ESTIMATED GFR IS NOT zrcw=2258) ACCURATE CREATININE CLEARANCE IN PREDICTING GLOMERULAR FILTRATION RATE. ESTIMATED GFR IS NOT APPLICABLE FOR DIALYSIS PATIENTS. [id number] 06:35:00 Test Item Value Reference Range Comments MAGNESIUM (BEAKER) (test lwgs=996) 2.4 mg/dL 1.6-2.6 PROTHROMBIN [id number] 06:09:00 Test Item Value Reference Range Comments PROTIME (BEAKER) (test atyj=716) 14.8 seconds 11.9-14.2 INR (BEAKER) (test flyu=274) 1.2 <=5.9 Effective 07/29/2018: PT Reference Range ChangeNew: 11.9-14.2 Previous: 11.7- 14.7RECOMMENDED COUMADIN/WARFARIN INR THERAPY RANGESSTANDARD DOSE: 2.0-3.0 Includes: PROPHYLAXIS for venous thrombosis, systemic embolization; TREATMENT for venous thrombosis and/or pulmonary embolus.HIGH RISK: Target INR is2.5-3.5 for patients wiht mechanical heart valves.CBC W/PLT COUNT & AUTO [id number] 06:01:00 Test Item Value Reference Range Comments WHITE BLOOD CELL COUNT (BEAKER) (test buzx=036) 6.4 K/ L 3.5-10.5 RED BLOOD CELL COUNT (BEAKER) (test eqzg=166) 3.13 M/ L 4.63-6.08 HEMOGLOBIN (BEAKER) (test aibc=946) 9.8 GM/DL 13.7-17.5 HEMATOCRIT (BEAKER) (test fkap=464) 30.7 % 40.1-51.0 MEAN CORPUSCULAR VOLUME (BEAKER) (test eiuz=060) 98.1 fL 79.0-92.2 MEAN CORPUSCULAR HEMOGLOBIN (BEAKER) (test 31.3 pg 25.7-32.2 gjxr=156) MEAN CORPUSCULAR HEMOGLOBIN CONC (BEAKER) (test 31.9 GM/DL 32.3-36.5 auev=252) RED CELL DISTRIBUTION WIDTH (BEAKER) (test 15.1 % 11.6-14.4 rulq=622) PLATELET COUNT (BEAKER) (test defd=501) 171 K/CU MM 150-450 MEAN PLATELET VOLUME (BEAKER) (test jnld=969) 11.9 fL 9.4-12.4 NUCLEATED RED BLOOD CELLS (BEAKER) (test 0 /100 WBC 0-0 dkwh=247) NEUTROPHILS RELATIVE PERCENT (BEAKER) (test 75 % wvym=299) LYMPHOCYTES RELATIVE PERCENT (BEAKER) (test 10 % vaio=895) MONOCYTES RELATIVE PERCENT (BEAKER) (test 10 % ovoe=706) EOSINOPHILS RELATIVE PERCENT (BEAKER) (test 3 % uucu=317) BASOPHILS RELATIVE PERCENT (BEAKER) (test 2 % ywbp=271) NEUTROPHILS ABSOLUTE COUNT (BEAKER) (test 4.78 K/ L 1.78-5.38 yqvj=690) LYMPHOCYTES ABSOLUTE COUNT (BEAKER) (test 0.62 K/ L 1.32-3.57 goao=040) MONOCYTES ABSOLUTE COUNT (BEAKER) (test 0.62 K/ L 0.30-0.82 asmu=332) EOSINOPHILS ABSOLUTE COUNT (BEAKER) (test 0.21 K/ L 0.04-0.54 ukhg=160) BASOPHILS ABSOLUTE COUNT (BEAKER) (test 0.10 K/ L 0.01-0.08 fmaf=205) IMMATURE GRANULOCYTES-RELATIVE PERCENT (BEAKER) 1 % 0-1 (test mjyn=8343) POCT-GLUCOSE [id number] 20:51:00 Test Item Value Reference Range Comments POC-GLUCOSE METER (BEAKER) 184 mg/dL 70-110 TESTED AT [address] (test yscc=2809) [facility] [address] POCT-GLUCOSE [id number] 18:54:00 Test Item Value Reference Range Comments POC-GLUCOSE METER (BEAKER) 81 mg/dL 70-110 TESTED AT [address] (test diiq=4967) [facility] [address] POCT-GLUCOSE [id number] 12:00:00 Test Item Value Reference Range Comments POC-GLUCOSE METER (BEAKER) 105 mg/dL 70-110 TESTED AT [address] (test rsfx=7630) [place] [id number] POCT-GLUCOSE [id number] 08:30:00 Test Item Value Reference Range Comments POC-GLUCOSE METER (BEAKER) 102 mg/dL 70-110 TESTED AT [address] (test hgxc=6932) [facility] [address] BASIC METABOLIC [id number] 05:43:00 Test Item Value Reference Range Comments SODIUM (BEAKER) (test 131 meq/L 136-145 ageq=517) POTASSIUM (BEAKER) (test 5.1 meq/L 3.5-5.1 idfz=845) CHLORIDE (BEAKER) (test 97 meq/L 98-107 uyqc=002) CO2 (BEAKER) (test 20 meq/L 22-29 fiaj=206) BLOOD UREA NITROGEN 49 mg/dL 7-21 (BEAKER) (test zzcy=385) CREATININE (BEAKER) (test 6.79 mg/dL 0.57-1.25 owlv=897) GLUCOSE RANDOM (BEAKER) 102 mg/dL 70-105 (test kyuf=384) CALCIUM (BEAKER) (test 9.9 mg/dL 8.4-10.2 dlyk=659) EGFR (BEAKER) (test 8 mL/min/1.73 sq m ESTIMATED GFR IS NOT eogi=2696) ACCURATE CREATININE CLEARANCE IN PREDICTING GLOMERULAR FILTRATION RATE. ESTIMATED GFR IS NOT APPLICABLE FOR DIALYSIS PATIENTS. [id number] 04:51:00 Test Item Value Reference Range Comments MAGNESIUM (BEAKER) (test qviw=346) 2.5 mg/dL 1.6-2.6 POCT-GLUCOSE [id number] 20:52:00 Test Item Value Reference Range Comments POC-GLUCOSE METER (BEAKER) 108 mg/dL 70-110 TESTED AT [address] (test jcuc=6507) [place] [address] BLOOD [id number] 20:01:00 Test Item Value Reference Range Comments CULTURE (BEAKER) (test yung=0246) No growth in 5 days BLOOD [id number] 20:01:00 Test Item Value Reference Range Comments CULTURE (BEAKER) (test uzai=8183) No growth in 5 days POCT-GLUCOSE [id number] 17:02:00 Test Item Value Reference Range Comments POC-GLUCOSE METER (BEAKER) 125 mg/dL 70-110 TESTED AT [address] (test cwle=5494) [place] [address] POCT-GLUCOSE [id number] 11:38:00 Test Item Value Reference Range Comments POC-GLUCOSE METER (BEAKER) 128 mg/dL 70-110 TESTED AT [address] (test bqdq=0623) [place] [address] BASIC METABOLIC [id number] 08:12:00 Test Item Value Reference Range Comments SODIUM (BEAKER) (test 132 meq/L 136-145 kxjd=171) POTASSIUM (BEAKER) (test 4.4 meq/L 3.5-5.1 sevj=479) CHLORIDE (BEAKER) (test 99 meq/L 98-107 wucw=520) CO2 (BEAKER) (test 24 meq/L 22-29 mivd=630) BLOOD UREA NITROGEN 37 mg/dL 7-21 (BEAKER) (test gcdm=789) CREATININE (BEAKER) (test 5.72 mg/dL 0.57-1.25 btdh=515) GLUCOSE RANDOM (BEAKER) 107 mg/dL 70-105 (test iskg=239) CALCIUM (BEAKER) (test 9.4 mg/dL 8.4-10.2 bnak=603) EGFR (BEAKER) (test 10 mL/min/1.73 sq m ESTIMATED GFR IS NOT hmwq=5281) ACCURATE CREATININE CLEARANCE IN PREDICTING GLOMERULAR FILTRATION RATE. ESTIMATED GFR IS NOT APPLICABLE FOR DIALYSIS PATIENTS. POCT-GLUCOSE [id number] 08:11:00 Test Item Value Reference Range Comments POC-GLUCOSE METER (BEAKER) 110 mg/dL 70-110 TESTED AT [address] (test htis=8708) [place] [address] [id number] 07:53:00 Test Item Value Reference Range Comments MAGNESIUM (BEAKER) (test nddg=639) 2.4 mg/dL 1.6-2.6 CBC W/PLT COUNT & AUTO [id number] 06:20:00 Test Item Value Reference Range Comments WHITE BLOOD CELL COUNT (BEAKER) (test dnpf=165) 8.6 K/ L 3.5-10.5 RED BLOOD CELL COUNT (BEAKER) (test pobx=041) 3.24 M/ L 4.63-6.08 HEMOGLOBIN (BEAKER) (test igup=490) 10.5 GM/DL 13.7-17.5 HEMATOCRIT (BEAKER) (test jxgk=345) 32.0 % 40.1-51.0 MEAN CORPUSCULAR VOLUME (BEAKER) (test trwl=612) 98.8 fL 79.0-92.2 MEAN CORPUSCULAR HEMOGLOBIN (BEAKER) (test 32.4 pg 25.7-32.2 fnlb=301) MEAN CORPUSCULAR HEMOGLOBIN CONC (BEAKER) (test 32.8 GM/DL 32.3-36.5 pmjh=488) RED CELL DISTRIBUTION WIDTH (BEAKER) (test 15.0 % 11.6-14.4 dfmr=919) PLATELET COUNT (BEAKER) (test jqwf=977) 201 K/CU MM 150-450 MEAN PLATELET VOLUME (BEAKER) (test hpce=572) 11.3 fL 9.4-12.4 NUCLEATED RED BLOOD CELLS (BEAKER) (test 0 /100 WBC 0-0 mqmy=235) NEUTROPHILS RELATIVE PERCENT (BEAKER) (test 73 % xiro=583) LYMPHOCYTES RELATIVE PERCENT (BEAKER) (test 11 % hjqf=283) MONOCYTES RELATIVE PERCENT (BEAKER) (test 10 % ayyj=362) EOSINOPHILS RELATIVE PERCENT (BEAKER) (test 4 % rcde=144) BASOPHILS RELATIVE PERCENT (BEAKER) (test 1 % zqju=811) NEUTROPHILS ABSOLUTE COUNT (BEAKER) (test 6.25 K/ L 1.78-5.38 okfm=438) LYMPHOCYTES ABSOLUTE COUNT (BEAKER) (test 0.92 K/ L 1.32-3.57 jepy=490) MONOCYTES ABSOLUTE COUNT (BEAKER) (test 0.83 K/ L 0.30-0.82 bqot=772) EOSINOPHILS ABSOLUTE COUNT (BEAKER) (test 0.37 K/ L 0.04-0.54 ijia=451) BASOPHILS ABSOLUTE COUNT (BEAKER) (test 0.10 K/ L 0.01-0.08 utlv=867) IMMATURE GRANULOCYTES-RELATIVE PERCENT (BEAKER) 2 % 0-1 (test qjjl=0400) POCT-GLUCOSE [id number] 20:50:00 Test Item Value Reference Range Comments POC-GLUCOSE METER (BEAKER) 140 mg/dL 70-110 TESTED AT [address] (test lebo=5835) [place] [address] POCT-GLUCOSE [id number] 17:28:00 Test Item Value Reference Range Comments POC-GLUCOSE METER (BEAKER) 217 mg/dL 70-110 TESTED AT [address] (test jfao=6840) [place] [address] POCT-GLUCOSE [id number] 11:22:00 Test Item Value Reference Range Comments POC-GLUCOSE METER (BEAKER) 157 mg/dL 70-110 TESTED AT [address] (test nrvt=8283) [place] [address] POCT-GLUCOSE [id number] 07:42:00 Test Item Value Reference Range Comments POC-GLUCOSE METER (BEAKER) 130 mg/dL 70-110 TESTED AT [address] (test jnwt=9124) [place] [address] BLOOD [id number] 07:39:00 Test Item Value Reference Range Comments CULTURE (BEAKER) From Aerobic Bottle Only (test vypj=1442) Same organism has been isolated from cultures(s) of the same body site within 3 days. Repeat identification and susceptibility testing performed only after consultation with the clinical microbiology laboratory.Refer to previous culture ofStaphylococcus aureus GRAM STAIN RESULT From aerobic bottle (BEAKER) (test only: gram positive zsxo=2828) cocci in clusters BASIC METABOLIC [id number] 06:48:00 Test Item Value Reference Range Comments SODIUM (BEAKER) (test 138 meq/L 136-145 lhux=896) POTASSIUM (BEAKER) (test 4.2 meq/L 3.5-5.1 zezz=117) CHLORIDE (BEAKER) (test 102 meq/L 98-107 inlm=501) CO2 (BEAKER) (test 26 meq/L 22-29 dleg=016) BLOOD UREA NITROGEN 24 mg/dL 7-21 (BEAKER) (test kjod=702) CREATININE (BEAKER) (test 4.13 mg/dL 0.57-1.25 lwiv=471) GLUCOSE RANDOM (BEAKER) 106 mg/dL 70-105 (test twbr=401) CALCIUM (BEAKER) (test 9.0 mg/dL 8.4-10.2 pyja=512) EGFR (BEAKER) (test 14 mL/min/1.73 sq m ESTIMATED GFR IS NOT rpzb=8789) ACCURATE CREATININE CLEARANCE IN PREDICTING GLOMERULAR FILTRATION RATE. ESTIMATED GFR IS NOT APPLICABLE FOR DIALYSIS PATIENTS. [id number] 06:33:00 Test Item Value Reference Range Comments MAGNESIUM (BEAKER) (test nrzn=555) 2.1 mg/dL 1.6-2.6 CBC W/PLT COUNT & AUTO [id number] 04:46:00 Test Item Value Reference Range Comments WHITE BLOOD CELL COUNT (BEAKER) (test fvpm=401) 9.1 K/ L 3.5-10.5 RED BLOOD CELL COUNT (BEAKER) (test lech=805) 3.31 M/ L 4.63-6.08 HEMOGLOBIN (BEAKER) (test qbbc=118) 10.3 GM/DL 13.7-17.5 HEMATOCRIT (BEAKER) (test cgwe=243) 32.9 % 40.1-51.0 MEAN CORPUSCULAR VOLUME (BEAKER) (test hvgz=138) 99.4 fL 79.0-92.2 MEAN CORPUSCULAR HEMOGLOBIN (BEAKER) (test 31.1 pg 25.7-32.2 npok=036) MEAN CORPUSCULAR HEMOGLOBIN CONC (BEAKER) (test 31.3 GM/DL 32.3-36.5 jtqq=794) RED CELL DISTRIBUTION WIDTH (BEAKER) (test 15.0 % 11.6-14.4 nnfd=786) PLATELET COUNT (BEAKER) (test oksy=238) 207 K/CU MM 150-450 MEAN PLATELET VOLUME (BEAKER) (test bovd=568) 11.3 fL 9.4-12.4 NUCLEATED RED BLOOD CELLS (BEAKER) (test 0 /100 WBC 0-0 zaja=831) NEUTROPHILS RELATIVE PERCENT (BEAKER) (test 77 % bgda=813) LYMPHOCYTES RELATIVE PERCENT (BEAKER) (test 9 % gfla=656) MONOCYTES RELATIVE PERCENT (BEAKER) (test 8 % gusx=240) EOSINOPHILS RELATIVE PERCENT (BEAKER) (test 4 % xiag=989) BASOPHILS RELATIVE PERCENT (BEAKER) (test 1 % exel=265) NEUTROPHILS ABSOLUTE COUNT (BEAKER) (test 6.94 K/ L 1.78-5.38 gsni=322) LYMPHOCYTES ABSOLUTE COUNT (BEAKER) (test 0.84 K/ L 1.32-3.57 dsti=125) MONOCYTES ABSOLUTE COUNT (BEAKER) (test 0.72 K/ L 0.30-0.82 hfqp=136) EOSINOPHILS ABSOLUTE COUNT (BEAKER) (test 0.33 K/ L 0.04-0.54 ddps=925) BASOPHILS ABSOLUTE COUNT (BEAKER) (test 0.10 K/ L 0.01-0.08 gjxm=815) IMMATURE GRANULOCYTES-RELATIVE PERCENT (BEAKER) 2 % 0-1 (test vvwr=6071) POCT-GLUCOSE [id number] 20:45:00 Test Item Value Reference Range Comments POC-GLUCOSE METER (BEAKER) 94 mg/dL 70-110 TESTED AT [address] (test cwje=5046) [place] [id number] POCT-GLUCOSE [id number] 16:56:00 Test Item Value Reference Range Comments POC-GLUCOSE METER (BEAKER) 98 mg/dL 70-110 TESTED AT [address] (test vvmj=2875) [place] [address] POCT-GLUCOSE [id number] 16:23:00 Test Item Value Reference Range Comments POC-GLUCOSE METER (BEAKER) 90 mg/dL 70-110 TESTED AT [address] (test ziap=2516) [place] [address] POCT-GLUCOSE [id number] 07:53:00 Test Item Value Reference Range Comments POC-GLUCOSE METER (BEAKER) 84 mg/dL 70-110 TESTED AT [address] (test infx=9429) [place] [address] BASIC METABOLIC [id number] 06:59:00 Test Item Value Reference Range Comments SODIUM (BEAKER) (test 137 meq/L 136-145 rkmw=489) POTASSIUM (BEAKER) (test 4.1 meq/L 3.5-5.1 rqbe=756) CHLORIDE (BEAKER) (test 102 meq/L 98-107 tnvt=691) CO2 (BEAKER) (test 23 meq/L 22-29 fuyh=461) BLOOD UREA NITROGEN 38 mg/dL 7-21 (BEAKER) (test uwlv=619) CREATININE (BEAKER) (test 5.73 mg/dL 0.57-1.25 mdgv=016) GLUCOSE RANDOM (BEAKER) 87 mg/dL 70-105 (test qklm=654) CALCIUM (BEAKER) (test 9.3 mg/dL 8.4-10.2 sedh=535) EGFR (BEAKER) (test 10 mL/min/1.73 sq m ESTIMATED GFR IS NOT qbde=4412) ACCURATE CREATININE CLEARANCE IN PREDICTING GLOMERULAR FILTRATION RATE. ESTIMATED GFR IS NOT APPLICABLE FOR DIALYSIS PATIENTS. [id number] 06:51:00 Test Item Value Reference Range Comments MAGNESIUM (BEAKER) (test vnoa=253) 2.4 mg/dL 1.6-2.6 CBC W/PLT COUNT & AUTO [id number] 05:26:00 Test Item Value Reference Range Comments WHITE BLOOD CELL COUNT (BEAKER) (test yquw=424) 9.3 K/ L 3.5-10.5 RED BLOOD CELL COUNT (BEAKER) (test jlme=089) 3.07 M/ L 4.63-6.08 HEMOGLOBIN (BEAKER) (test nbkr=867) 9.9 GM/DL 13.7-17.5 HEMATOCRIT (BEAKER) (test xsgb=741) 30.8 % 40.1-51.0 MEAN CORPUSCULAR VOLUME (BEAKER) (test jbrt=000) 100.3 fL 79.0-92.2 MEAN CORPUSCULAR HEMOGLOBIN (BEAKER) (test 32.2 pg 25.7-32.2 qxxy=423) MEAN CORPUSCULAR HEMOGLOBIN CONC (BEAKER) (test 32.1 GM/DL 32.3-36.5 ywta=237) RED CELL DISTRIBUTION WIDTH (BEAKER) (test 15.1 % 11.6-14.4 oiij=949) PLATELET COUNT (BEAKER) (test oexd=064) 195 K/CU MM 150-450 MEAN PLATELET VOLUME (BEAKER) (test mocp=501) 11.4 fL 9.4-12.4 NUCLEATED RED BLOOD CELLS (BEAKER) (test 0 /100 WBC 0-0 eaqw=559) NEUTROPHILS RELATIVE PERCENT (BEAKER) (test 73 % gxum=321) LYMPHOCYTES RELATIVE PERCENT (BEAKER) (test 10 % lzdz=632) MONOCYTES RELATIVE PERCENT (BEAKER) (test 10 % ladr=050) EOSINOPHILS RELATIVE PERCENT (BEAKER) (test 4 % sbwq=264) BASOPHILS RELATIVE PERCENT (BEAKER) (test 1 % ugut=884) NEUTROPHILS ABSOLUTE COUNT (BEAKER) (test 6.76 K/ L 1.78-5.38 rfnb=221) LYMPHOCYTES ABSOLUTE COUNT (BEAKER) (test 0.97 K/ L 1.32-3.57 evrm=183) MONOCYTES ABSOLUTE COUNT (BEAKER) (test 0.92 K/ L 0.30-0.82 eara=972) EOSINOPHILS ABSOLUTE COUNT (BEAKER) (test 0.39 K/ L 0.04-0.54 bpij=110) BASOPHILS ABSOLUTE COUNT (BEAKER) (test 0.09 K/ L 0.01-0.08 rdiv=661) IMMATURE GRANULOCYTES-RELATIVE PERCENT (BEAKER) 2 % 0-1 (test ngzj=2002) POCT-GLUCOSE [id number] 21:43:00 Test Item Value Reference Range Comments POC-GLUCOSE METER (BEAKER) 135 mg/dL 70-110 TESTED AT [address] (test sbvl=3328) [place] [id number] POCT-GLUCOSE [id number] 17:15:00 Test Item Value Reference Range Comments POC-GLUCOSE METER (BEAKER) 158 mg/dL 70-110 TESTED AT [address] (test enir=3931) [place] [id number] POCT-GLUCOSE [id number] 14:21:00 Test Item Value Reference Range Comments POC-GLUCOSE METER (BEAKER) 165 mg/dL 70-110 TESTED AT [address] (test oqpr=3186) [place] [address] ANG, REMOVAL OF TUNNELED CVC W/O [id number] 14:06:00Reason for exam:-> bacteremiaFINAL REPORT Left IJ tunneled dialysis catheter removal History: Bacteremia Modality: None. Sedation : None Gallery Or [facility] Curator: Juan A Holden MD. Dubbing Machine Operator: BING Stapleton. Approach: Left anterior chest. Estimated blood loss: < 5 cc. Specimen: None. Technique: The procedure including risks and benefits were explained to the patient, who expressed understanding. After informed written consent was obtained, the patient's left anterior chest region was prepped and draped in the usual sterile fashion. The skin was anesthetized with lidocaine. The tunneled dialysis catheter was then removed in total with blunt dissection and gentle traction. The skin entry site was then dressed with sterile gauze and Tegaderm. The patient tolerated the procedure well. Impression: Successful, uncomplicated removal of a left chest tunneled dialysis catheter. Signed: Juan A Holden MDReport Verified Date/Time: 10/29/2018 14:06:46 Reading Location: [place] [address] Angio Body Reading Room Electronically signed by: JUAN A HOLDEN MD on 02:06 PMPOCT-GLUCOSE [id number] 07:46:00 Test Item Value Reference Range Comments POC-GLUCOSE METER (BEAKER) 140 mg/dL 70-110 TESTED AT [address] (test sovi=9938) [facility] [address] BASIC METABOLIC [id number] 06:42:00 Test Item Value Reference Range Comments SODIUM (BEAKER) (test 139 meq/L 136-145 aqtf=790) POTASSIUM (BEAKER) (test 3.8 meq/L 3.5-5.1 hcpz=319) CHLORIDE (BEAKER) (test 103 meq/L 98-107 wtdz=705) CO2 (BEAKER) (test 26 meq/L 22-29 orck=368) BLOOD UREA NITROGEN 25 mg/dL 7-21 (BEAKER) (test xjhr=052) CREATININE (BEAKER) (test 4.06 mg/dL 0.57-1.25 msok=587) GLUCOSE RANDOM (BEAKER) 99 mg/dL 70-105 (test ztqv=712) CALCIUM (BEAKER) (test 9.1 mg/dL 8.4-10.2 gypl=185) EGFR (BEAKER) (test 14 mL/min/1.73 sq m ESTIMATED GFR IS NOT cotx=5084) ACCURATE CREATININE CLEARANCE IN PREDICTING GLOMERULAR FILTRATION RATE. ESTIMATED GFR IS NOT APPLICABLE FOR DIALYSIS PATIENTS. [id number] 06:36:00 Test Item Value Reference Range Comments MAGNESIUM (BEAKER) (test dmoz=135) 2.4 mg/dL 1.6-2.6 CBC W/PLT COUNT & AUTO [id number] 06:00:00 Test Item Value Reference Range Comments WHITE BLOOD CELL COUNT (BEAKER) (test nprr=016) 8.9 K/ L 3.5-10.5 RED BLOOD CELL COUNT (BEAKER) (test ietv=308) 3.33 M/ L 4.63-6.08 HEMOGLOBIN (BEAKER) (test ohmb=416) 10.6 GM/DL 13.7-17.5 HEMATOCRIT (BEAKER) (test zbyc=501) 32.9 % 40.1-51.0 MEAN CORPUSCULAR VOLUME (BEAKER) (test xmpa=461) 98.8 fL 79.0-92.2 MEAN CORPUSCULAR HEMOGLOBIN (BEAKER) (test 31.8 pg 25.7-32.2 knrr=046) MEAN CORPUSCULAR HEMOGLOBIN CONC (BEAKER) (test 32.2 GM/DL 32.3-36.5 hwah=851) RED CELL DISTRIBUTION WIDTH (BEAKER) (test 14.9 % 11.6-14.4 lxbe=122) PLATELET COUNT (BEAKER) (test lqwo=698) 199 K/CU MM 150-450 MEAN PLATELET VOLUME (BEAKER) (test youn=962) 11.6 fL 9.4-12.4 NUCLEATED RED BLOOD CELLS (BEAKER) (test 0 /100 WBC 0-0 lkry=411) NEUTROPHILS RELATIVE PERCENT (BEAKER) (test 75 % hxjc=902) LYMPHOCYTES RELATIVE PERCENT (BEAKER) (test 9 % lvwo=139) MONOCYTES RELATIVE PERCENT (BEAKER) (test 9 % ohnk=531) EOSINOPHILS RELATIVE PERCENT (BEAKER) (test 4 % phvo=906) BASOPHILS RELATIVE PERCENT (BEAKER) (test 1 % evyj=573) NEUTROPHILS ABSOLUTE COUNT (BEAKER) (test 6.66 K/ L 1.78-5.38 bogz=656) LYMPHOCYTES ABSOLUTE COUNT (BEAKER) (test 0.81 K/ L 1.32-3.57 bhpk=447) MONOCYTES ABSOLUTE COUNT (BEAKER) (test 0.83 K/ L 0.30-0.82 aiyj=152) EOSINOPHILS ABSOLUTE COUNT (BEAKER) (test 0.36 K/ L 0.04-0.54 uusy=061) BASOPHILS ABSOLUTE COUNT (BEAKER) (test 0.07 K/ L 0.01-0.08 tvfj=754) IMMATURE GRANULOCYTES-RELATIVE PERCENT (BEAKER) 2 % 0-1 (test lykc=6157) POCT-GLUCOSE [id number] 00:22:00 Test Item Value Reference Range Comments POC-GLUCOSE METER (BEAKER) 114 mg/dL 70-110 TESTED AT [address] (test cpwu=6786) [place] [id number] POCT-GLUCOSE [id number] 13:17:00 Test Item Value Reference Range Comments POC-GLUCOSE METER (BEAKER) 127 mg/dL 70-110 TESTED AT [address] (test bjip=4269) [place] [address] POCT-GLUCOSE [id number] 08:16:00 Test Item Value Reference Range Comments POC-GLUCOSE METER (BEAKER) 95 mg/dL 70-110 TESTED AT [address] (test pclm=2214) [place] [address] BASIC METABOLIC [id number] 06:49:00 Test Item Value Reference Range Comments SODIUM (BEAKER) (test 133 meq/L 136-145 oyme=649) POTASSIUM (BEAKER) (test 3.9 meq/L 3.5-5.1 xvql=448) CHLORIDE (BEAKER) (test 98 meq/L 98-107 hbqb=090) CO2 (BEAKER) (test 24 meq/L 22-29 ugpb=743) BLOOD UREA NITROGEN 45 mg/dL 7-21 (BEAKER) (test okry=222) CREATININE (BEAKER) (test 5.45 mg/dL 0.57-1.25 ouez=580) GLUCOSE RANDOM (BEAKER) 89 mg/dL 70-105 (test tslw=036) CALCIUM (BEAKER) (test 9.2 mg/dL 8.4-10.2 mqiv=296) EGFR (BEAKER) (test 10 mL/min/1.73 sq m ESTIMATED GFR IS NOT gjpd=4767) ACCURATE CREATININE CLEARANCE IN PREDICTING GLOMERULAR FILTRATION RATE. ESTIMATED GFR IS NOT APPLICABLE FOR DIALYSIS PATIENTS. [id number] 06:46:00 Test Item Value Reference Range Comments MAGNESIUM (BEAKER) (test ohsg=308) 2.5 mg/dL 1.6-2.6 CBC W/PLT COUNT & AUTO [id number] 06:21:00 Test Item Value Reference Range Comments WHITE BLOOD CELL COUNT (BEAKER) (test lbjy=552) 8.3 K/ L 3.5-10.5 RED BLOOD CELL COUNT (BEAKER) (test wqwn=583) 3.16 M/ L 4.63-6.08 HEMOGLOBIN (BEAKER) (test kvaw=663) 10.2 GM/DL 13.7-17.5 HEMATOCRIT (BEAKER) (test rzbd=823) 31.6 % 40.1-51.0 MEAN CORPUSCULAR VOLUME (BEAKER) (test oinf=462) 100.0 fL 79.0-92.2 MEAN CORPUSCULAR HEMOGLOBIN (BEAKER) (test 32.3 pg 25.7-32.2 juwh=630) MEAN CORPUSCULAR HEMOGLOBIN CONC (BEAKER) (test 32.3 GM/DL 32.3-36.5 nhlo=187) RED CELL DISTRIBUTION WIDTH (BEAKER) (test 14.9 % 11.6-14.4 ohce=172) PLATELET COUNT (BEAKER) (test zekb=759) 155 K/CU MM 150-450 MEAN PLATELET VOLUME (BEAKER) (test ymos=718) 11.8 fL 9.4-12.4 NUCLEATED RED BLOOD CELLS (BEAKER) (test 0 /100 WBC 0-0 kdqg=579) NEUTROPHILS RELATIVE PERCENT (BEAKER) (test 70 % zekw=914) LYMPHOCYTES RELATIVE PERCENT (BEAKER) (test 10 % mvoy=365) MONOCYTES RELATIVE PERCENT (BEAKER) (test 12 % kspu=501) EOSINOPHILS RELATIVE PERCENT (BEAKER) (test 6 % cmrc=582) BASOPHILS RELATIVE PERCENT (BEAKER) (test 1 % clyi=665) NEUTROPHILS ABSOLUTE COUNT (BEAKER) (test 5.80 K/ L 1.78-5.38 afeo=711) LYMPHOCYTES ABSOLUTE COUNT (BEAKER) (test 0.86 K/ L 1.32-3.57 qfds=759) MONOCYTES ABSOLUTE COUNT (BEAKER) (test 0.96 K/ L 0.30-0.82 foso=226) EOSINOPHILS ABSOLUTE COUNT (BEAKER) (test 0.48 K/ L 0.04-0.54 bqtf=904) BASOPHILS ABSOLUTE COUNT (BEAKER) (test 0.09 K/ L 0.01-0.08 bwcn=879) IMMATURE GRANULOCYTES-RELATIVE PERCENT (BEAKER) 2 % 0-1 (test gkvy=5439) POCT-GLUCOSE [id number] 15:51:00 Test Item Value Reference Range Comments POC-GLUCOSE METER (BEAKER) 126 mg/dL 70-110 TESTED AT [address] (test fdhy=9760) [place] [address] RAD, CHEST, 1 VIEW, NON [id number] 15:03:00Reason for exam:->LIJ CVC placementShould this be performed at the bedside?->YesFINAL REPORT CHEST AP PORTABLE Comparison exam: 10/26/2018 History provided: Line placement Temporary dialysis catheter from the left IJ approach with tip at the junction of the left brachiocephalic vein with the SVC. Pulmonary edema pattern improved when compared with yesterday's study, though residual interstitial edema remains, asymmetrically greater on the right. Small rightpleural effusion persists. Signed: Clive Hurley MDReport Verified Date/Time : 10/27/2018 15:03:06 Reading Location: [facility] [address] Angio Body Reading Room POCT- GLUCOSE [id number] 12:34:00 Test Item Value Reference Range Comments POC-GLUCOSE METER (BEAKER) 220 mg/dL 70-110 TESTED AT [address] (test ptwi=2801) [place] [id number] POCT-GLUCOSE [id number] 12:33:00 Test Item Value Reference Range Comments POC-GLUCOSE METER (BEAKER) 118 mg/dL 70-110 TESTED AT [address] (test koxt=6555) [place] [id number] BASIC METABOLIC [id number] 05:06:00 Test Item Value Reference Range Comments SODIUM (BEAKER) (test 137 meq/L 136-145 pzkb=014) POTASSIUM (BEAKER) (test 3.7 meq/L 3.5-5.1 wcwy=791) CHLORIDE (BEAKER) (test 104 meq/L 98-107 lfxz=841) CO2 (BEAKER) (test 23 meq/L 22-29 void=584) BLOOD UREA NITROGEN 32 mg/dL 7-21 (BEAKER) (test hnwl=087) CREATININE (BEAKER) (test 3.88 mg/dL 0.57-1.25 gxji=110) GLUCOSE RANDOM (BEAKER) 122 mg/dL 70-105 (test umsc=413) CALCIUM (BEAKER) (test 9.6 mg/dL 8.4-10.2 wnws=432) EGFR (BEAKER) (test 15 mL/min/1.73 sq m ESTIMATED GFR IS NOT yscb=3710) ACCURATE CREATININE CLEARANCE IN PREDICTING GLOMERULAR FILTRATION RATE. ESTIMATED GFR IS NOT APPLICABLE FOR DIALYSIS PATIENTS. [id number] 04:49:00 Test Item Value Reference Range Comments MAGNESIUM (BEAKER) (test jbht=275) 2.3 mg/dL 1.6-2.6 CBC W/PLT COUNT & AUTO [id number] 04:46:00 Test Item Value Reference Range Comments WHITE BLOOD CELL COUNT (BEAKER) (test wrjy=412) 8.8 K/ L 3.5-10.5 RED BLOOD CELL COUNT (BEAKER) (test umyo=725) 3.09 M/ L 4.63-6.08 HEMOGLOBIN (BEAKER) (test ebcj=264) 9.9 GM/DL 13.7-17.5 HEMATOCRIT (BEAKER) (test zooh=978) 31.3 % 40.1-51.0 MEAN CORPUSCULAR VOLUME (BEAKER) (test srdp=588) 101.3 fL 79.0-92.2 MEAN CORPUSCULAR HEMOGLOBIN (BEAKER) (test 32.0 pg 25.7-32.2 vwha=198) MEAN CORPUSCULAR HEMOGLOBIN CONC (BEAKER) (test 31.6 GM/DL 32.3-36.5 ecwx=297) RED CELL DISTRIBUTION WIDTH (BEAKER) (test 15.1 % 11.6-14.4 mtse=498) PLATELET COUNT (BEAKER) (test usrc=093) 147 K/CU MM 150-450 MEAN PLATELET VOLUME (BEAKER) (test ktwr=053) 11.6 fL 9.4-12.4 NUCLEATED RED BLOOD CELLS (BEAKER) (test 0 /100 WBC 0-0 phou=875) NEUTROPHILS RELATIVE PERCENT (BEAKER) (test 72 % ohyz=429) LYMPHOCYTES RELATIVE PERCENT (BEAKER) (test 8 % zawt=037) MONOCYTES RELATIVE PERCENT (BEAKER) (test 12 % ejin=511) EOSINOPHILS RELATIVE PERCENT (BEAKER) (test 5 % bang=069) BASOPHILS RELATIVE PERCENT (BEAKER) (test 1 % ctny=047) NEUTROPHILS ABSOLUTE COUNT (BEAKER) (test 6.37 K/ L 1.78-5.38 vuyo=794) LYMPHOCYTES ABSOLUTE COUNT (BEAKER) (test 0.72 K/ L 1.32-3.57 emtv=054) MONOCYTES ABSOLUTE COUNT (BEAKER) (test 1.07 K/ L 0.30-0.82 dtna=763) EOSINOPHILS ABSOLUTE COUNT (BEAKER) (test 0.44 K/ L 0.04-0.54 agoa=892) BASOPHILS ABSOLUTE COUNT (BEAKER) (test 0.08 K/ L 0.01-0.08 qvxd=028) IMMATURE GRANULOCYTES-RELATIVE PERCENT (BEAKER) 1 % 0-1 (test rqzq=9857) POCT-GLUCOSE [id number] 22:42:00 Test Item Value Reference Range Comments POC-GLUCOSE METER (BEAKER) 143 mg/dL 70-110 TESTED AT [address] (test elkd=2948) [place] [address] POCT-GLUCOSE [id number] 19:01:00 Test Item Value Reference Range Comments POC-GLUCOSE METER (BEAKER) 175 mg/dL 70-110 TESTED AT [address] (test ljag=9249) [place] [address] POCT-GLUCOSE [id number] 12:50:00 Test Item Value Reference Range Comments POC-GLUCOSE METER (BEAKER) 122 mg/dL 70-110 TESTED AT [address] (test vacg=6407) [place] [address] BLOOD [id number] 10:24:00 Test Item Value Reference Range Comments CULTURE (BEAKER) From Aerobic And Anaerobic (test msca=5277) Bottles Same organism has been isolated from cultures(s) of the same body site within 3 days. Repeat identification and susceptibility testing performed only after consultation with the clinical microbiology laboratory.Refer to previous culture ofStaphylococcus aureus GRAM STAIN RESULT From aerobic and (BEAKER) (test anaerobic bottles: iibz=1123) gram positive cocci in clusters BLOOD [id number] 10:22:00 Test Item Value Reference Range Comments CULTURE (BEAKER) (test STAPHYLOCOCCUS AUREUS From Aerobic And pfke=4202) Anaerobic Bottles Staphylococcus aureus Clindamycin (test code=10) Erythromycin (test code=4) Linezolid (test code=40) Nitrofurantoin (test code=23) Oxacillin (test code=14) Rifampin (test code=43) Tetracycline (test code=2) Trimethoprim + Sulfamethoxazole (test code=47) Vancomycin (test code=13) GRAM STAIN RESULT From aerobic and (BEAKER) (test lgip=3477) anaerobic bottles: gram positive cocci in clusters PROTHROMBIN [id number] 07:36:00 Test Item Value Reference Range Comments PROTIME (BEAKER) (test tizb=881) 15.6 seconds 11.9-14.2 INR (BEAKER) (test ipdw=617) 1.3 <=5.9 Effective 07/29/2018: PT Reference Range ChangeNew: 11.9-14.2 Previous: 11.7- 14.7RECOMMENDED COUMADIN/WARFARIN INR THERAPY RANGESSTANDARD DOSE: 2.0-3.0 Includes: PROPHYLAXIS for venous thrombosis, systemic embolization; TREATMENT for venous thrombosis and/or pulmonary embolus.HIGH RISK: Target INR is2.5-3.5 for patients wiht mechanical heart valves.POCT-GLUCOSE [id number] 07:31:00 Test Item Value Reference Range Comments POC-GLUCOSE METER (BEAKER) 127 mg/dL 70-110 TESTED AT [facility] [address] [place] [address] (test ariu=0679) [facility] [address] RAD, CHEST, 1 VIEW, NON [id number] 04:36:00Reason for exam:->respiratory failureShould this be performed at the bedside?->YesFINAL REPORT RAD, CHEST, 1 VIEW, NON DEPT INDICATION: respiratory failure COMPARISON: Prior day's exam FINDINGS: Portable frontal view of the chest. IMPRESSION: Support Lines:No significant change. Lungs and pleura: Increased bilateral interstitial and parenchymal opacities suggestive of worsening pulmonary edema or infection. Small right pleural effusion has increased in size. Trace left pleural effusion is stable. No pneumothorax.Heart and mediastinum: Stable cardiomediastinal contour. Additional findings: None. Signed : Kvng Calloway MDReport Verified Date/Time: 10/26/2018 04:36:35 BASIC METABOLIC [id number] 04:30:00 Test Item Value Reference Range Comments SODIUM (BEAKER) (test 131 meq/L 136-145 wzxx=099) POTASSIUM (BEAKER) (test 4.3 meq/L 3.5-5.1 urzf=335) CHLORIDE (BEAKER) (test 98 meq/L 98-107 wvth=721) CO2 (BEAKER) (test 20 meq/L 22-29 oczs=489) BLOOD UREA NITROGEN 46 mg/dL 7-21 (BEAKER) (test wifc=159) CREATININE (BEAKER) (test 5.26 mg/dL 0.57-1.25 rhus=389) GLUCOSE RANDOM (BEAKER) 130 mg/dL 70-105 (test fkwh=767) CALCIUM (BEAKER) (test 9.8 mg/dL 8.4-10.2 nzdz=801) EGFR (BEAKER) (test 11 mL/min/1.73 sq m ESTIMATED GFR IS NOT ykjj=6474) ACCURATE CREATININE CLEARANCE IN PREDICTING GLOMERULAR FILTRATION RATE. ESTIMATED GFR IS NOT APPLICABLE FOR DIALYSIS PATIENTS. [id number] 04:24:00 Test Item Value Reference Range Comments PHOSPHORUS (BEAKER) (test swad=164) 4.2 mg/dL 2.3-4.7 [id number] 04:24:00 Test Item Value Reference Range Comments MAGNESIUM (BEAKER) (test smgx=475) 2.7 mg/dL 1.6-2.6 HEPATIC FUNCTION [id number] 04:24:00 Test Item Value Reference Range Comments TOTAL PROTEIN (BEAKER) (test yxfa=443) 6.8 gm/dL 6.0-8.3 ALBUMIN (BEAKER) (test pffi=2755) 3.4 g/dL 3.5-5.0 BILIRUBIN TOTAL (BEAKER) (test ipmk=850) 1.6 mg/dL 0.2-1.2 BILIRUBIN DIRECT (BEAKER) (test gnze=503) 0.8 mg/dL 0.1-0.5 ALKALINE PHOSPHATASE (BEAKER) (test anle=340) 96 U/L 40-150 AST (SGOT) (BEAKER) (test kosj=406) 23 U/L 5-34 ALT (SGPT) (BEAKER) (test qbog=437) 10 U/L 6-55 CBC W/PLT COUNT & AUTO [id number] 04:10:00 Test Item Value Reference Range Comments WHITE BLOOD CELL COUNT (BEAKER) (test jsbb=141) 11.2 K/ L 3.5-10.5 RED BLOOD CELL COUNT (BEAKER) (test bfjc=205) 3.28 M/ L 4.63-6.08 HEMOGLOBIN (BEAKER) (test kerb=515) 10.4 GM/DL 13.7-17.5 HEMATOCRIT (BEAKER) (test aybr=401) 33.9 % 40.1-51.0 MEAN CORPUSCULAR VOLUME (BEAKER) (test okxy=480) 103.4 fL 79.0-92.2 MEAN CORPUSCULAR HEMOGLOBIN (BEAKER) (test 31.7 pg 25.7-32.2 pypp=112) MEAN CORPUSCULAR HEMOGLOBIN CONC (BEAKER) (test 30.7 GM/DL 32.3-36.5 vpmq=655) RED CELL DISTRIBUTION WIDTH (BEAKER) (test 15.1 % 11.6-14.4 dllo=967) PLATELET COUNT (BEAKER) (test zhik=892) 136 K/CU MM 150-450 MEAN PLATELET VOLUME (BEAKER) (test giqc=637) 11.5 fL 9.4-12.4 NUCLEATED RED BLOOD CELLS (BEAKER) (test 0 /100 WBC 0-0 vsqx=233) NEUTROPHILS RELATIVE PERCENT (BEAKER) (test 78 % jmul=536) LYMPHOCYTES RELATIVE PERCENT (BEAKER) (test 7 % mnbw=085) MONOCYTES RELATIVE PERCENT (BEAKER) (test 10 % dmam=128) EOSINOPHILS RELATIVE PERCENT (BEAKER) (test 4 % ibfv=362) BASOPHILS RELATIVE PERCENT (BEAKER) (test 1 % xkjx=583) NEUTROPHILS ABSOLUTE COUNT (BEAKER) (test 8.76 K/ L 1.78-5.38 dqmo=562) LYMPHOCYTES ABSOLUTE COUNT (BEAKER) (test 0.78 K/ L 1.32-3.57 craj=528) MONOCYTES ABSOLUTE COUNT (BEAKER) (test 1.13 K/ L 0.30-0.82 huci=552) EOSINOPHILS ABSOLUTE COUNT (BEAKER) (test 0.41 K/ L 0.04-0.54 vmcz=313) BASOPHILS ABSOLUTE COUNT (BEAKER) (test 0.06 K/ L 0.01-0.08 amqf=368) IMMATURE GRANULOCYTES-RELATIVE PERCENT (BEAKER) 1 % 0-1 (test vtal=5298) U/S, EXTREMITY (NON-VASCULAR), LEFT, [id number] 02:10:00Reason for exam:- >old LUE AVF site. eval for abscessFINAL REPORT Ultrasound of the left upper extremity. HISTORY: Left arm for fluid collection. Comparison study: August 21, 2018. FINDINGS: Sonographic assessment of the left upper extremity at the site of the patient's AV fistula was performed with a high-resolution linear probe. The fistula is nearly completely thrombosed. Only minimal fluid is seen, as on previous. 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 No fluid collection is present to suggest abscess or hematoma. Signed: [facility] Verified Date/Time: 10/26/2018 02:10:19 POCT-GLUCOSE [id number] 21:28:00 Test Item Value Reference Range Comments POC-GLUCOSE METER (BEAKER) 224 mg/dL 70-110 TESTED AT [address] (test izsy=7889) [place] [id number] POCT-GLUCOSE [id number] 17:44:00 Test Item Value Reference Range Comments POC-GLUCOSE METER (BEAKER) 204 mg/dL 70-110 TESTED AT [address] (test abja=0425) [place] [id number] POCT-GLUCOSE [id number] 13:38:00 Test Item Value Reference Range Comments POC-GLUCOSE METER (BEAKER) 153 mg/dL 70-110 TESTED AT [address] (test hzpm=8936) [facility] [address] LACTIC ACID, [id number] 11:56:00 Test Item Value Reference Range Comments LACTATE BLOOD VENOUS (2) 1.4 mmol/L 0.5-2.2 Specimen slightly hemolyzed (BEAKER) (test hboj=1236) POCT-GLUCOSE [id number] 09:40:00 Test Item Value Reference Range Comments POC-GLUCOSE METER (BEAKER) 114 mg/dL 70-110 TESTED AT [facility] [address] (test itfv=7614) [facility] [address] RAD, CHEST, 1 VIEW, NON [id number] 08:01:00Reason for exam:->respiratory failureShould this be performed at the bedside?->YesFINAL REPORT RAD, CHEST, 1 VIEW, NON DEPT CLINICAL INDICATION: respiratory failure COMPARISON: Radiograph 10/24/2018 TECHNIQUE: AP view of the chest FINDINGS: Left IJ central venous catheter is unchanged. Interval near resolution of left pleural effusion. Persistent trace right pleural effusion versus atelectasis. Pulmonary edema is improved. No new focal consolidation or pneumothorax. Cardiomediastinal silhouette is unchanged. IMPRESSION:Improved pulmonary edema with near complete resolution of left pleural effusion. Signed: Prisca Giraldoeport Verified Date/Time: 10/25/2018 08:01:10 BASIC METABOLIC [id number] 04:46:00 Test Item Value Reference Range Comments SODIUM (BEAKER) (test 131 meq/L 136-145 frqs=299) POTASSIUM (BEAKER) (test 4.0 meq/L 3.5-5.1 wowi=094) CHLORIDE (BEAKER) (test 97 meq/L 98-107 dspb=235) CO2 (BEAKER) (test 22 meq/L 22-29 cpql=985) BLOOD UREA NITROGEN 23 mg/dL 7-21 (BEAKER) (test mddt=912) CREATININE (BEAKER) (test 3.47 mg/dL 0.57-1.25 uvgj=333) GLUCOSE RANDOM (BEAKER) 116 mg/dL 70-105 (test oqeb=541) CALCIUM (BEAKER) (test 9.9 mg/dL 8.4-10.2 Discordant CALCIUM mkda=165) result Compared to previous result, Clinical correlation required. EGFR (BEAKER) (test 17 mL/min/1.73 sq m ESTIMATED GFR IS NOT sokb=9452) ACCURATE CREATININE CLEARANCE IN PREDICTING GLOMERULAR FILTRATION RATE. ESTIMATED GFR IS NOT APPLICABLE FOR DIALYSIS PATIENTS. Specimen slightly [id number] 04:45:00 Test Item Value Reference Range Comments PHOSPHORUS (BEAKER) (test xfkx=003) 2.9 mg/dL 2.3-4.7 [id number] 04:45:00 Test Item Value Reference Range Comments MAGNESIUM (BEAKER) (test atcm=334) 2.4 mg/dL 1.6-2.6 TROPONIN [id number] 04:45:00 Test Item Value Reference Range Comments TROPONIN I (BEAKER) (test cxjp=638) 3.45 ng/mL 0.00-0.03 Troponin I (TnI) levels must [...] failure, acidosis, acute neurological disease, and persistent tachyarrhythmia.PT/[id number] 04:22:00 Test Item Value Reference Range Comments PROTIME (BEAKER) (test ujqi=173) 17.2 seconds 11.9-14.2 INR (BEAKER) (test otto=409) 1.5 <=5.9 PARTIAL THROMBOPLASTIN TIME (BEAKER) (test 43.5 seconds 22.5-36.0 kbhx=479) Effective 07/29/2018: PT Reference Range ChangeNew: 11.9-14.2 Previous: 11.7- 14.7RECOMMENDED COUMADIN/WARFARIN INR THERAPY RANGESSTANDARD DOSE: 2.0-3.0 Includes: PROPHYLAXIS for venous thrombosis, systemic embolization; TREATMENT for venous thrombosis and/or pulmonary embolus.HIGH RISK: Target INR is2.5-3.5 for patients wiht mechanical heart valves.PROTHROMBIN [id number] 04:21: 00 Test Item Value Reference Range Comments PROTIME (BEAKER) (test hxsp=226) 17.2 seconds 11.9-14.2 INR (BEAKER) (test nomk=096) 1.5 <=5.9 Effective 07/29/2018: PT Reference Range ChangeNew: 11.9-14.2 Previous: 11.7- 14.7RECOMMENDED COUMADIN/WARFARIN INR THERAPY RANGESSTANDARD DOSE: 2.0-3.0 Includes: PROPHYLAXIS for venous thrombosis, systemic embolization; TREATMENT for venous thrombosis and/or pulmonary embolus.HIGH RISK: Target INR is2.5-3.5 for patients wiht mechanical heart valves.CBC W/PLT COUNT & AUTO [id number] 04:00:00 Test Item Value Reference Range Comments WHITE BLOOD CELL COUNT (BEAKER) (test twel=356) 18.8 K/ L 3.5-10.5 RED BLOOD CELL COUNT (BEAKER) (test jefz=177) 3.19 M/ L 4.63-6.08 HEMOGLOBIN (BEAKER) (test eqil=231) 10.5 GM/DL 13.7-17.5 HEMATOCRIT (BEAKER) (test nqbb=280) 32.7 % 40.1-51.0 MEAN CORPUSCULAR VOLUME (BEAKER) (test aieo=432) 102.5 fL 79.0-92.2 MEAN CORPUSCULAR HEMOGLOBIN (BEAKER) (test 32.9 pg 25.7-32.2 plhx=488) MEAN CORPUSCULAR HEMOGLOBIN CONC (BEAKER) (test 32.1 GM/DL 32.3-36.5 riiq=059) RED CELL DISTRIBUTION WIDTH (BEAKER) (test 15.3 % 11.6-14.4 nxye=910) PLATELET COUNT (BEAKER) (test qnod=942) 128 K/CU MM 150-450 MEAN PLATELET VOLUME (BEAKER) (test puik=287) 10.8 fL 9.4-12.4 NUCLEATED RED BLOOD CELLS (BEAKER) (test 0 /100 WBC 0-0 imjg=040) NEUTROPHILS RELATIVE PERCENT (BEAKER) (test 88 % gbdw=691) LYMPHOCYTES RELATIVE PERCENT (BEAKER) (test 3 % pboh=041) MONOCYTES RELATIVE PERCENT (BEAKER) (test 6 % dcit=480) EOSINOPHILS RELATIVE PERCENT (BEAKER) (test 1 % nlpn=596) BASOPHILS RELATIVE PERCENT (BEAKER) (test 0 % rdko=230) NEUTROPHILS ABSOLUTE COUNT (BEAKER) (test 16.58 K/ L 1.78-5.38 crgp=489) LYMPHOCYTES ABSOLUTE COUNT (BEAKER) (test 0.59 K/ L 1.32-3.57 sumc=444) MONOCYTES ABSOLUTE COUNT (BEAKER) (test 1.18 K/ L 0.30-0.82 tucj=181) EOSINOPHILS ABSOLUTE COUNT (BEAKER) (test 0.13 K/ L 0.04-0.54 cpue=219) BASOPHILS ABSOLUTE COUNT (BEAKER) (test 0.07 K/ L 0.01-0.08 exmy=995) IMMATURE GRANULOCYTES-RELATIVE PERCENT (BEAKER) 1 % 0-1 (test txzo=2086) TROPONIN [id number] 00:28:00 Test Item Value Reference Range Comments TROPONIN I (BEAKER) (test txcn=844) 2.92 ng/mL 0.00-0.03 Troponin I (TnI) levels must [...] acidosis, acute neurological disease, and persistent tachyarrhythmia.POCT-GLUCOSE [id number] 22:16:00 Test Item Value Reference Range Comments POC-GLUCOSE METER (BEAKER) 135 mg/dL 70-110 TESTED AT [address] (test qkzh=8629) [facility] [id number] RAD, CHEST, 1 VIEW, NON [id number] 18:31:00Reason for exam:->sobShould this be performed at the bedside?->NoFINAL REPORT Chest dated 10/24/2018 COMPARISON: 10/23/2018 Clinical Information: sob Comment: Heart is enlarged. Pulmonary vasculature is indistinct. Interstitial disease is seen bilaterally suggestive of the lesser congestion or pulmonary edema worse as compared to the prior study. No pleural effusion or pneumothorax is seen. Impression: Interval worsening of pulmonary edema. Signed: Bridget Del Rosario Verified Date/Time: 10/24/2018 18:31:29 Reading Location: [address] Consult Reading Room Electronically signed by: BRIDGET DEL ROSARIO M.D. on 2018 06:31 PMTROPONIN [id number] 17:33:00 Test Item Value Reference Range Comments TROPONIN I (BEAKER) (test pkvi=095) 3.57 ng/mL 0.00-0.03 Troponin I (TnI) levels must [...] acidosis, acute neurological disease, and persistent tachyarrhythmia.POCT-GLUCOSE [id number] 16:59:00 Test Item Value Reference Range Comments POC-GLUCOSE METER (MARTIR) 131 mg/dL 70-110 TESTED AT [facility] [address] [facility] (test eshp=0404) [facility] [address] BLOOD CULTURE IDENTIFICATION [id number] 15:25:00 Test Item Value Reference Range Comments LISTERIA MONOCYTOGENES Not detected Not detected (test qjhv=[id number]) STAPHYLOCOCCUS (test Detected Not detected ugeq=9804189) STAPHYLOCOCCUS AUREUS Detected Not detected Methicillin-susceptible S. (test eole=9520887) aureus (MSSA)First-line therapy: Cefazolin or Oxacillin (Oxacillin preferred if PEER SPECIALIST involvement) ID CONSULTATION REQUIREDStaphylococcus aureus DETECTEDMecA NOT DETECTED Reference Range: Not Detected STREPTOCOCCUS (test Not detected Not detected efwa=8692083) STREPTOCOCCUS AGALACTIAE Not detected Not detected (GROUP B) (test ptuw=4886779) STREPTOCOCCUS PNEUMONIAE Not detected Not detected (test ryzw=6199375) STREPTOCOCCUS PYOGENES Not detected Not detected (GROUP A) (test yrgz=1206423) ACINETOBACTER BAUMANNII Not detected Not detected (test udll=5656484) HAEMOPHILUS INFLUENZAE Not detected Not detected (test dxni=6500556) NEISSERIA MENINGITIDIS Not detected Not detected (test oakk=9421823) ENTEROBACTERIACEAE (test Not detected Not detected xgui=8419157) ENTEROBACTER CLOACOE Not detected Not detected COMPLEX (test uldf=7789514) KLEBSIELLA OXYTOCA (test Not detected Not detected klys=3411217) KLEBSIELLA PNEUMONIAE Not detected Not detected (test hjqc=2389) PROTEUS (test Not detected Not detected augz=2484117) SERRATIA MARCESCENS (test Not detected Not detected ijcn=0499661) MITA ALBICANS (test Not detected Not detected ogyi=1707975) MITA GLABRATA (test Not detected Not detected oiep=3589085) MITA KRUSEI (test Not detected Not detected sxlc=3288343) MITA PARAPSILOSIS (test Not detected Not detected yjiz=6264687) MITA TROPICALIS (test Not detected Not detected dhfv=3813806) ESCHERICHIA COLI (test Not detected Not detected cfpc=8582396) METHICILLIN-RESISTANCE Not detected Not detected GENE (test euvc=5396300) VANCOMYCIN-RESISTANCE GENE (test jagq=8841937) CARBAPENEM-RESISTANCE GENE (test lkfa=1247765) ENTEROCOCCUS-BEAKER (test Not detected Not detected wmqm=8081313) PSEUDOMONAS Not detected Not detected AERUGINOSA-BEAKER (test zhue=5152786) Other bacteria and resistance markers not targeted by this PCR panel cannot be excluded; therefore clinical correlation and follow up of serology, culture results, and other molecular studies is required. The results are not intended to be used as the sole means for clinical diagnosis or patient management decisions. This sample was tested at the [facility] Molecular Diagnostics Laboratory using the [employer] Blood Culture ID Panel. It is FDA cleared and has been verified and approved by the [facility] Molecular Diagnostics Laboratory for clinical use. This laboratory is CLIA-certified and College ofAmerican Pathologists (CAP)-accredited to perform high complexity testing.POCT-GLUCOSE [id number] 11:41:00 Test Item Value Reference Range Comments POC-GLUCOSE METER ([facility]) 96 mg/dL 70-110 TESTED AT [facility] [address] (test pkqt=2984) [facility] [address] TROPONIN [id number] 08:33:00 Test Item Value Reference Range Comments TROPONIN I (Calibrus) (test kutw=582) 1.86 ng/mL 0.00-0.03 Troponin I (TnI) levels must [...] failure, acidosis, acute neurological disease, and persistent tachyarrhythmia.RAD, CHEST, 1 VIEW, NON [id number] 08:10:00Reason for exam:->respiratory failureShould this be performed at the bedside?->YesFINAL REPORT RAD, CHEST, 1 VIEW, NON DEPT CLINICAL INDICATION: respiratory failure COMPARISON: Radiograph 10/23/2018 TECHNIQUE: AP view of the chest FINDINGS: Left IJ central venous catheter is unchanged. Interval increase in trace bilateral pleural effusions. Unchanged pulmonaryedema. No pneumothorax. Cardiomediastinal silhouette, qing, and pulmonary vasculature are unchanged.IMPRESSION:Interval increase in small bilateral pleural effusions. Signed: Prisca Giraldo Verified Date/Time : 10/24/2018 08:10:08 CBC W/PLT COUNT & AUTO [id number] 07:56:00 Test Item Value Reference Range Comments WHITE BLOOD CELL COUNT (BEAKER) (test seaw=272) 32.3 K/ L 3.5-10.5 RED BLOOD CELL COUNT (BEAKER) (test kdue=254) 3.27 M/ L 4.63-6.08 HEMOGLOBIN (BEAKER) (test slvl=645) 10.6 GM/DL 13.7-17.5 HEMATOCRIT (BEAKER) (test aqjp=285) 33.7 % 40.1-51.0 MEAN CORPUSCULAR VOLUME (BEAKER) (test jney=281) 103.1 fL 79.0-92.2 MEAN CORPUSCULAR HEMOGLOBIN (BEAKER) (test 32.4 pg 25.7-32.2 meqg=685) MEAN CORPUSCULAR HEMOGLOBIN CONC (BEAKER) (test 31.5 GM/DL 32.3-36.5 vuek=259) RED CELL DISTRIBUTION WIDTH (BEAKER) (test 15.4 % 11.6-14.4 unsd=886) PLATELET COUNT (BEAKER) (test afkb=932) 162 K/CU MM 150-450 MEAN PLATELET VOLUME (BEAKER) (test pwhl=200) 11.2 fL 9.4-12.4 NUCLEATED RED BLOOD CELLS (BEAKER) (test 0 /100 WBC 0-0 axlm=029) (CELLAVISION MANUAL DIFF)2018-10-24 07:56:00 Test Item Value Reference Range Comments NEUTROPHILS - REL (CELLAVISION)(BEAKER) (test 81 % ppmx=5835) MONOCYTES - REL (CELLAVISION)(BEAKER) (test 5 % tatr=3509) BASOPHILS - REL (CELLAVISION)(BEAKER) (test 1 % lwdf=0380) METAMYELOCYTES - REL (CELLAVISION)(BEAKER) (test 1 % 0-0 nfgt=1345) BANDS - REL (CELLAVISION)(BEAKER) (test 12 % 0-10 twkc=1000) NEUTROPHILS - ABS (CELLAVISION)(BEAKER) (test 26.16 K/ul 1.78-5.38 zqab=6419) MONOCYTES - ABS (CELLAVISION)(BEAKER) (test 1.62 K/uL 0.30-0.82 ascl=5247) BASOPHILS - ABS (CELLAVISION)(BEAKER) (test 0.32 K/uL 0.01-0.08 ygbz=3494) METAMYELOCYTES - ABS (CELLAVISION)(BEAKER) (test 0.32 K/uL 0.00-0.00 zals=9856) BANDS - ABS (CELLAVISION)(BEAKER) (test 3.88 K/uL 0.00-0.80 ghkq=3910) TOTAL COUNTED (BEAKER) (test lvck=6363) 100 WBC MORPHOLOGY (BEAKER) (test bjia=336) Normal GIANT PLATELETS (BEAKER) (test yfof=588) Present LARGE PLT(BEAKER) (test agxr=2429) Present POLYCHROMATOPHILLIC RBCS(BEAKER) (test pzun=591) 1+ few ANISOCYTOSIS (BEAKER) (test vyta=420) 1+ few MACROCYTES (BEAKER) (test mjoa=624) 1+ few POIKILOCYTES (BEAKER) (test mkqi=559) 1+ few OVALOCYTES (BEAKER) (test durg=434) 1+ few TEAR DROP CELLS (BEAKER) (test akvh=396) 1+ few ARTIFACT (CELLAVISION)(BEAKER) (test dgpd=2017) Present PLATELET CONCENTRATION (CELLAVISION)(BEAKER) Adequate (test idja=2308) Received comment: User comments: Slide comments:LACTIC ACID, [id number] 03:32:00 Test Item Value Reference Range Comments LACTATE BLOOD ARTERIAL (2) 1.2 mmol/L 0.5-2.2 Specimen moderately hemolyzed (BEAKER) (test cddv=4529) Specimen slightly ictericBLOOD GAS, [id number] 03:03:00 Test Item Value Reference Range Comments PH ARTERIAL (BEAKER) (test ljww=755) 7.46 7.35-7.45 PCO2 ARTERIAL (BEAKER) (test rbqo=130) 33 mmHg 35-45 PO2 ARTERIAL (BEAKER) (test hrdr=182) 167 mmHg 80-90 O2 SATURATION ARTERIAL (BEAKER) (test jevs=064) 99.2 % 96.0-97.0 HCO3 ARTERIAL (BEAKER) (test sdde=289) 23 mmol/L 21-29 BASE EXCESS ARTERIAL (BEAKER) (test rsid=866) -0.8 mmol/L -2.0-3.0 PATIENT TEMPERATURE (BEAKER) (test juxl=4808) 36.6 C FIO2 (BEAKER) (test pxbl=8814) 95.0 % [id number] 02:56:00 Test Item Value Reference Range Comments PROCALCITONIN (BEAKER) (test wziv=3172) 3.47 ng/mL <0.05 SEPSIS RISK (ng/mL)Low: 0.05-0.50Intermediate: 0.51-2.00High: & gt;=2.01CBC W/PLT COUNT & AUTO [id number] 01:28:00 Test Item Value Reference Range Comments WHITE BLOOD CELL COUNT (BEAKER) (test dere=521) 23.1 K/ L 3.5-10.5 RED BLOOD CELL COUNT (BEAKER) (test dsdo=437) 2.96 M/ L 4.63-6.08 HEMOGLOBIN (BEAKER) (test hcbu=847) 9.9 GM/DL 13.7-17.5 HEMATOCRIT (BEAKER) (test lzde=487) 31.0 % 40.1-51.0 MEAN CORPUSCULAR VOLUME (BEAKER) (test zwtq=038) 104.7 fL 79.0-92.2 MEAN CORPUSCULAR HEMOGLOBIN (BEAKER) (test 33.4 pg 25.7-32.2 yfkj=958) MEAN CORPUSCULAR HEMOGLOBIN CONC (BEAKER) (test 31.9 GM/DL 32.3-36.5 cwun=214) RED CELL DISTRIBUTION WIDTH (BEAKER) (test 15.5 % 11.6-14.4 nwkw=570) PLATELET COUNT (BEAKER) (test bygf=007) 149 K/CU MM 150-450 MEAN PLATELET VOLUME (BEAKER) (test uwaw=657) 10.4 fL 9.4-12.4 NUCLEATED RED BLOOD CELLS (BEAKER) (test 0 /100 WBC 0-0 dmvs=467) (CELLAVISION MANUAL DIFF)2018-10-24 01:28:00 Test Item Value Reference Range Comments NEUTROPHILS - REL (CELLAVISION)(BEAKER) (test 92 % wsro=3960) MONOCYTES - REL (CELLAVISION)(BEAKER) (test 4 % wnii=2047) BANDS - REL (CELLAVISION)(BEAKER) (test 4 % 0-10 xvel=9943) NEUTROPHILS - ABS (CELLAVISION)(BEAKER) (test 21.25 K/ul 1.78-5.38 ctih=3398) MONOCYTES - ABS (CELLAVISION)(BEAKER) (test 0.92 K/uL 0.30-0.82 nhvz=8024) BANDS - ABS (CELLAVISION)(BEAKER) (test 0.92 K/uL 0.00-0.80 ijfb=6699) TOTAL COUNTED (BEAKER) (test bnxq=6564) 100 WBC MORPHOLOGY (BEAKER) (test btul=449) Normal GIANT PLATELETS (BEAKER) (test gwjh=722) Present ANISOCYTOSIS (BEAKER) (test kjrz=923) 1+ few MICROCYTES (BEAKER) (test kgoy=033) 1+ few PLATELET CONCENTRATION (CELLAVISION)(BEAKER) Adequate (test cqav=5967) Received comment: User comments: Slide comments:POCT-LACTIC ACID, [id number] 01:01:00 Test Item Value Reference Range Comments POC-LACTIC ACID, VENOUS 1.7 mmol/L 0.9-1.7 TESTED AT [facility] [address] [facility] (BEAKER) (test mtxa=4382) [place] [address] B-TYPE NATRIURETIC FACTOR (BNP)2018-10-24 00:39:00 Test Item Value Reference Range Comments B-TYPE NATRIURETIC PEPTIDE (BEAKER) (test 8224 pg/mL 0-100 pile=974) TROPONIN [id number] 00:27:00 Test Item Value Reference Range Comments TROPONIN I (BEAKER) (test eqqj=343) 0.75 ng/mL 0.00-0.03 Troponin I (TnI) levels must [...] acute neurological disease, and persistent tachyarrhythmia.BASIC METABOLIC [id number] 00:20:00 Test Item Value Reference Range Comments SODIUM (BEAKER) (test 137 meq/L 136-145 jhzr=981) POTASSIUM (BEAKER) (test 3.3 meq/L 3.5-5.1 lgxi=236) CHLORIDE (BEAKER) (test 106 meq/L 98-107 howd=473) CO2 (BEAKER) (test 23 meq/L 22-29 urnp=238) BLOOD UREA NITROGEN 12 mg/dL 7-21 (BEAKER) (test uejq=220) CREATININE (BEAKER) (test 2.47 mg/dL 0.57-1.25 ogsp=743) GLUCOSE RANDOM (BEAKER) 108 mg/dL 70-105 (test jfjo=022) CALCIUM (BEAKER) (test 8.3 mg/dL 8.4-10.2 lojp=240) EGFR (BEAKER) (test 26 mL/min/1.73 sq m ESTIMATED GFR IS NOT gitw=7198) ACCURATE CREATININE CLEARANCE IN PREDICTING GLOMERULAR FILTRATION RATE. ESTIMATED GFR IS NOT APPLICABLE FOR DIALYSIS PATIENTS. Specimen slightly [id number] 00:16:00 Test Item Value Reference Range Comments MAGNESIUM (BEAKER) (test tkzq=810) 1.7 mg/dL 1.6-2.6 HEPATIC FUNCTION [id number] 00:16:00 Test Item Value Reference Range Comments TOTAL PROTEIN (BEAKER) (test magv=136) 6.2 gm/dL 6.0-8.3 ALBUMIN (BEAKER) (test hkwn=5406) 3.3 g/dL 3.5-5.0 BILIRUBIN TOTAL (BEAKER) (test fypa=739) 2.7 mg/dL 0.2-1.2 BILIRUBIN DIRECT (BEAKER) (test sedg=372) 1.2 mg/dL 0.1-0.5 ALKALINE PHOSPHATASE (BEAKER) (test uopx=909) 77 U/L 40-150 AST (SGOT) (BEAKER) (test amzg=862) 20 U/L 5-34 ALT (SGPT) (BEAKER) (test wgpl=017) 16 U/L 6-55 Specimen slightly [id number] 00:16:00 Test Item Value Reference Range Comments LIPASE (BEAKER) (test brvj=498) 12 U/L 8-78 Specimen slightly ictericPT/[id number] 00:14:00 Test Item Value Reference Range Comments PROTIME (BEAKER) (test hghg=567) 16.8 seconds 11.9-14.2 INR (BEAKER) (test xoue=175) 1.4 <=5.9 PARTIAL THROMBOPLASTIN TIME (BEAKER) (test 31.6 seconds 22.5-36.0 ndor=797) Effective 07/29/2018: PT Reference Range ChangeNew: 11.9-14.2 Previous: 11.7- 14.7RECOMMENDED COUMADIN/WARFARIN INR THERAPY RANGESSTANDARD DOSE: 2.0-3.0 Includes: PROPHYLAXIS for venous thrombosis, systemic embolization; TREATMENT for venous thrombosis and/or pulmonary embolus.HIGH RISK: Target INR is2.5-3.5 for patients wiht mechanical heart valves.BLOOD [id number] 20:00:00 Test Item Value Reference Range Comments CULTURE (BEAKER) (test yrob=3179) No growth in 5 days BLOOD [id number] 20:00:00 Test Item Value Reference Range Comments CULTURE (BEAKER) (test dpdw=0828) No growth in 5 days T3, [id number] 14:07:00 Test Item Value Reference Range Comments T3 FREE (BEAKER) (test oiyc=287) 3.50 pg/mL 1.71-3.71 POCT-GLUCOSE [id number] 12:45:00 Test Item Value Reference Range Comments POC-GLUCOSE METER (BEAKER) 98 mg/dL 70-110 TESTED AT [address] (test jzir=6418) [facility] [address] RAD, CHEST, 1 VIEW, NON [id number] 11:35:00Reason for exam:->CHFFINAL REPORT RAD, CHEST, 1 VIEW, NON DEPT INDICATION: CHF COMPARISON: Prior day's exam FINDINGS: Portable frontal view of the chest. IMPRESSION: Support Lines: Stable. Lungs and pleura: Bilateral lower lobe subsegmental atelectasis. Trace left effusion. No pneumothorax.Heart and mediastinum: Stable contours. Stable surgical changes.Additional findings: None. Signed: Nikia Banda Verified Date/Time: 10/23/2018 11:35: 02 Reading Location: [facility] Radiology Reading Room POCT-GLUCOSE [id number] 07:42:00 Test Item Value Reference Range Comments POC-GLUCOSE METER (BEAKER) 116 mg/dL 70-110 TESTED AT [address] (test ehie=7957) [place] [id number] CBC W/PLT COUNT & AUTO [id number] 06:50:00 Test Item Value Reference Range Comments WHITE BLOOD CELL COUNT (BEAKER) (test zllf=643) 10.6 K/ L 3.5-10.5 RED BLOOD CELL COUNT (BEAKER) (test kxeh=483) 3.28 M/ L 4.63-6.08 HEMOGLOBIN (BEAKER) (test ndnv=906) 10.6 GM/DL 13.7-17.5 HEMATOCRIT (BEAKER) (test rwni=515) 33.4 % 40.1-51.0 MEAN CORPUSCULAR VOLUME (BEAKER) (test bcdn=968) 101.8 fL 79.0-92.2 MEAN CORPUSCULAR HEMOGLOBIN (BEAKER) (test 32.3 pg 25.7-32.2 qogy=517) MEAN CORPUSCULAR HEMOGLOBIN CONC (BEAKER) (test 31.7 GM/DL 32.3-36.5 zvud=812) RED CELL DISTRIBUTION WIDTH (BEAKER) (test 15.5 % 11.6-14.4 tqqf=638) PLATELET COUNT (BEAKER) (test fika=292) 207 K/CU MM 150-450 MEAN PLATELET VOLUME (BEAKER) (test apcw=858) 11.0 fL 9.4-12.4 NUCLEATED RED BLOOD CELLS (BEAKER) (test 0 /100 WBC 0-0 vozo=019) NEUTROPHILS RELATIVE PERCENT (BEAKER) (test 79 % xwer=206) LYMPHOCYTES RELATIVE PERCENT (BEAKER) (test 6 % bwcj=768) MONOCYTES RELATIVE PERCENT (BEAKER) (test 10 % xesk=769) EOSINOPHILS RELATIVE PERCENT (BEAKER) (test 4 % ubho=052) BASOPHILS RELATIVE PERCENT (BEAKER) (test 1 % ykrp=288) NEUTROPHILS ABSOLUTE COUNT (BEAKER) (test 8.33 K/ L 1.78-5.38 qjbw=040) LYMPHOCYTES ABSOLUTE COUNT (BEAKER) (test 0.67 K/ L 1.32-3.57 dtug=157) MONOCYTES ABSOLUTE COUNT (BEAKER) (test 1.10 K/ L 0.30-0.82 wzsd=479) EOSINOPHILS ABSOLUTE COUNT (BEAKER) (test 0.39 K/ L 0.04-0.54 rfqe=357) BASOPHILS ABSOLUTE COUNT (BEAKER) (test 0.06 K/ L 0.01-0.08 nbbr=405) IMMATURE GRANULOCYTES-RELATIVE PERCENT (BEAKER) 1 % 0-1 (test cycr=4234) POCT-GLUCOSE [id number] 21:47:00 Test Item Value Reference Range Comments POC-GLUCOSE METER (BEAKER) 200 mg/dL 70-110 TESTED AT [facility] [address] [facility] (test sppb=5664) [facility] [address] [id number] 21:38:00 Test Item Value Reference Range Comments POTASSIUM (BEAKER) (test qdmg=972) 3.6 meq/L 3.5-5.1 [id number] 21:38:00 Test Item Value Reference Range Comments MAGNESIUM (BEAKER) (test jkng=509) 2.3 mg/dL 1.6-2.6 [id number] 21:38:00 Test Item Value Reference Range Comments PHOSPHORUS (BEAKER) (test fytc=672) 2.0 mg/dL 2.3-4.7 [id number] 21:38:00 Test Item Value Reference Range Comments SODIUM (BEAKER) (test nfmh=596) 137 meq/L 136-145 CALCIUM, [id number] 21:11:00 Test Item Value Reference Range Comments CALCIUM IONIZED (BEAKER) (test uwlh=994) 1.20 mmol/L 1.12-1.27 PH, BLOOD (BEAKER) (test djow=4658) 7.45 POCT-GLUCOSE [id number] 17:07:00 Test Item Value Reference Range Comments POC-GLUCOSE METER (BEAKER) 100 mg/dL 70-110 TESTED AT [address] (test higl=5255) [facility] [address] HEPATITIS B SURFACE [id number] 15:15:00 Test Item Value Reference Range Comments HEPATITIS B SURFACE ANTIGEN (2) (BEAKER) (test Nonreactive Nonreactive zwmn=8229) [id number] 14:50:00 Test Item Value Reference Range Comments POTASSIUM (BEAKER) (test hubk=325) 3.8 meq/L 3.5-5.1 [id number] 12:43:00 Test Item Value Reference Range Comments POTASSIUM (BEAKER) (test vthq=762) 3.8 meq/L 3.5-5.1 POCT-GLUCOSE [id number] 12:17:00 Test Item Value Reference Range Comments POC-GLUCOSE METER (BEAKER) 154 mg/dL 70-110 TESTED AT [address] (test bksr=5020) [facility] [address] [id number] 08:29:00 Test Item Value Reference Range Comments PHOSPHORUS (BEAKER) (test jqzm=363) 3.6 mg/dL 2.3-4.7 [id number] 08:29:00 Test Item Value Reference Range Comments MAGNESIUM (BEAKER) (test teiv=390) 2.4 mg/dL 1.6-2.6 CALCIUM, [id number] 08:16:00 Test Item Value Reference Range Comments CALCIUM IONIZED (BEAKER) (test vwhy=991) 1.23 mmol/L 1.12-1.27 PH, BLOOD (BEAKER) (test rrhe=7578) 7.40 POCT-GLUCOSE [id number] 07:48:00 Test Item Value Reference Range Comments POC-GLUCOSE METER (BEAKER) 105 mg/dL 70-110 TESTED AT [address] (test mkby=6529) [facility] [address] TSH/FREE T4 IF [id number] 06:59:00 Test Item Value Reference Range Comments THYROID STIMULATING HORMONE (BEAKER) (test 5.42 uIU/mL 0.35-4.94 vnhr=380) T4, [id number] 06:14:00 Test Item Value Reference Range Comments FREE T4 (BEAKER) (test srgn=027) 1.34 ng/dL 0.70-1.48 BASIC METABOLIC [id number] 05:54:00 Test Item Value Reference Range Comments SODIUM (BEAKER) (test 135 meq/L 136-145 ysjb=429) POTASSIUM (BEAKER) (test 3.8 meq/L 3.5-5.1 qewt=321) CHLORIDE (BEAKER) (test 100 meq/L 98-107 qulc=088) CO2 (BEAKER) (test 26 meq/L 22-29 ipdl=953) BLOOD UREA NITROGEN 24 mg/dL 7-21 (BEAKER) (test pccz=367) CREATININE (BEAKER) (test 3.08 mg/dL 0.57-1.25 cuoo=658) GLUCOSE RANDOM (BEAKER) 107 mg/dL 70-105 (test pluq=689) CALCIUM (BEAKER) (test 9.5 mg/dL 8.4-10.2 bivq=909) EGFR (BEAKER) (test 20 mL/min/1.73 sq m ESTIMATED GFR IS NOT bsjg=7209) ACCURATE CREATININE CLEARANCE IN PREDICTING GLOMERULAR FILTRATION RATE. ESTIMATED GFR IS NOT APPLICABLE FOR DIALYSIS PATIENTS. [id number] 05:36:00 Test Item Value Reference Range Comments PHOSPHORUS (BEAKER) (test uskq=368) 3.9 mg/dL 2.3-4.7 [id number] 05:36:00 Test Item Value Reference Range Comments MAGNESIUM (BEAKER) (test hnpc=669) 2.3 mg/dL 1.6-2.6 CBC W/PLT COUNT & AUTO [id number] 04:13:00 Test Item Value Reference Range Comments WHITE BLOOD CELL COUNT (BEAKER) (test phqh=630) 7.6 K/ L 3.5-10.5 RED BLOOD CELL COUNT (BEAKER) (test uhvj=044) 2.66 M/ L 4.63-6.08 HEMOGLOBIN (BEAKER) (test gbbn=240) 8.7 GM/DL 13.7-17.5 HEMATOCRIT (BEAKER) (test tijj=040) 27.2 % 40.1-51.0 MEAN CORPUSCULAR VOLUME (BEAKER) (test zpyj=228) 102.3 fL 79.0-92.2 MEAN CORPUSCULAR HEMOGLOBIN (BEAKER) (test 32.7 pg 25.7-32.2 lrww=353) MEAN CORPUSCULAR HEMOGLOBIN CONC (BEAKER) (test 32.0 GM/DL 32.3-36.5 vmoo=720) RED CELL DISTRIBUTION WIDTH (BEAKER) (test 15.2 % 11.6-14.4 zwdm=050) PLATELET COUNT (BEAKER) (test mozz=917) 175 K/CU MM 150-450 MEAN PLATELET VOLUME (BEAKER) (test gedl=214) 10.5 fL 9.4-12.4 NUCLEATED RED BLOOD CELLS (BEAKER) (test 0 /100 WBC 0-0 pwty=136) NEUTROPHILS RELATIVE PERCENT (BEAKER) (test 75 % rvhn=144) LYMPHOCYTES RELATIVE PERCENT (BEAKER) (test 8 % fuig=820) MONOCYTES RELATIVE PERCENT (BEAKER) (test 14 % lkcf=873) EOSINOPHILS RELATIVE PERCENT (BEAKER) (test 3 % temo=429) BASOPHILS RELATIVE PERCENT (BEAKER) (test 1 % llsg=430) NEUTROPHILS ABSOLUTE COUNT (BEAKER) (test 5.69 K/ L 1.78-5.38 ekbt=423) LYMPHOCYTES ABSOLUTE COUNT (BEAKER) (test 0.60 K/ L 1.32-3.57 ckfm=492) MONOCYTES ABSOLUTE COUNT (BEAKER) (test 1.06 K/ L 0.30-0.82 qbem=612) EOSINOPHILS ABSOLUTE COUNT (BEAKER) (test 0.21 K/ L 0.04-0.54 vlbt=679) BASOPHILS ABSOLUTE COUNT (BEAKER) (test 0.04 K/ L 0.01-0.08 dqxh=638) IMMATURE GRANULOCYTES-RELATIVE PERCENT (BEAKER) 0 % 0-1 (test yvib=0476) [id number] 00:21:00 Test Item Value Reference Range Comments POTASSIUM (BEAKER) (test 3.9 meq/L 3.5-5.1 Specimen slightly hemolyzed mccg=695) POCT-GLUCOSE [id number] 22:00:00 Test Item Value Reference Range Comments POC-GLUCOSE METER (BEAKER) 163 mg/dL 70-110 TESTED AT [address] (test tmgh=9804) [place] [address] [id number] 21:02:00 Test Item Value Reference Range Comments MAGNESIUM (BEAKER) (test 2.3 mg/dL 1.6-2.6 Specimen slightly hemolyzed slkr=093) [id number] 21:02:00 Test Item Value Reference Range Comments PHOSPHORUS (BEAKER) (test 3.1 mg/dL 2.3-4.7 Specimen slightly hemolyzed xvst=789) [id number] 21:02:00 Test Item Value Reference Range Comments POTASSIUM (BEAKER) (test 3.9 meq/L 3.5-5.1 Specimen slightly hemolyzed fkva=352) [id number] 21:02:00 Test Item Value Reference Range Comments SODIUM (BEAKER) (test owve=701) 134 meq/L 136-145 CALCIUM, [id number] 20:24:00 Test Item Value Reference Range Comments CALCIUM IONIZED (BEAKER) (test bcwe=398) 1.17 mmol/L 1.12-1.27 PH, BLOOD (BEAKER) (test lljh=1881) 7.40 POCT-GLUCOSE [id number] 18:16:00 Test Item Value Reference Range Comments POC-GLUCOSE METER (BEAKER) 122 mg/dL 70-110 TESTED AT [address] (test ojjg=9466) [place] [address] [id number] 17:57:00 Test Item Value Reference Range Comments POTASSIUM (BEAKER) (test 3.9 meq/L 3.5-5.1 Specimen moderately hemolyzed ansp=570) POCT-GLUCOSE [id number] 12:30:00 Test Item Value Reference Range Comments POC-GLUCOSE METER (BEAKER) 104 mg/dL 70-110 TESTED AT [address] (test rpet=9858) [place] [address] [id number] 11:58:00 Test Item Value Reference Range Comments POTASSIUM (BEAKER) (test gsrl=524) 3.3 meq/L 3.5-5.1 POCT-GLUCOSE [id number] 07:50:00 Test Item Value Reference Range Comments POC-GLUCOSE METER (BEAKER) 87 mg/dL 70-110 TESTED AT [facility] [address] (test skys=9506) [facility] [address] RAD, CHEST, 1 VIEW, NON [id number] 07:31:00Reason for exam:->F/U PNAShould this be performed at the bedside?->YesFINAL REPORT RAD, CHEST, 1 VIEW, NON DEPT INDICATION: F/U PNA COMPARISON: October FINDINGS: Portable frontal view of the chest. IMPRESSION: Support Lines: Stable. Lungs and pleura: Persistent interstitial edema, slightly worsened since the prior examination. No new consolidation or effusion. No pneumothorax.Heart and mediastinum: Stable contours. Additional findings:None. Signed: JR Biggs Robert MDReport Verified Date/Time: 10/21/2018 07:31: 50 Reading Location: [address] Neuro Reading Room [id number] 04:53:00 Test Item Value Reference Range Comments PHOSPHORUS (BEAKER) (test lqge=477) 2.3 mg/dL 2.3-4.7 [id number] 04:53:00 Test Item Value Reference Range Comments MAGNESIUM (BEAKER) (test tljt=680) 2.1 mg/dL 1.6-2.6 BASIC METABOLIC [id number] 04:53:00 Test Item Value Reference Range Comments SODIUM (BEAKER) (test 135 meq/L 136-145 uyal=108) POTASSIUM (BEAKER) (test 3.7 meq/L 3.5-5.1 ixgr=496) CHLORIDE (BEAKER) (test 103 meq/L 98-107 uzmv=018) CO2 (BEAKER) (test 27 meq/L 22-29 zwpr=787) BLOOD UREA NITROGEN 17 mg/dL 7-21 (BEAKER) (test kips=070) CREATININE (BEAKER) (test 1.77 mg/dL 0.57-1.25 wbbn=561) GLUCOSE RANDOM (BEAKER) 75 mg/dL 70-105 (test qwhb=984) CALCIUM (BEAKER) (test 9.5 mg/dL 8.4-10.2 siki=063) EGFR (BEAKER) (test 38 mL/min/1.73 sq m ESTIMATED GFR IS NOT liif=2929) ACCURATE CREATININE CLEARANCE IN PREDICTING GLOMERULAR FILTRATION RATE. ESTIMATED GFR IS NOT APPLICABLE FOR DIALYSIS PATIENTS. HEPATIC FUNCTION [id number] 04:53:00 Test Item Value Reference Range Comments TOTAL PROTEIN (BEAKER) (test ypjz=991) 6.3 gm/dL 6.0-8.3 ALBUMIN (BEAKER) (test hjrg=2628) 3.3 g/dL 3.5-5.0 BILIRUBIN TOTAL (BEAKER) (test yxed=972) 0.9 mg/dL 0.2-1.2 BILIRUBIN DIRECT (BEAKER) (test paqc=871) 0.5 mg/dL 0.1-0.5 ALKALINE PHOSPHATASE (BEAKER) (test ikro=430) 85 U/L 40-150 AST (SGOT) (BEAKER) (test pfwm=925) 46 U/L 5-34 ALT (SGPT) (BEAKER) (test tlbd=836) 39 U/L 6-55 CALCIUM, [id number] 04:29:00 Test Item Value Reference Range Comments CALCIUM IONIZED (BEAKER) (test tklp=069) 1.20 mmol/L 1.12-1.27 PH, BLOOD (BEAKER) (test xtxe=5572) 7.41 CBC (HEMOGRAM ONLY)2018-10-21 04:28:00 Test Item Value Reference Range Comments WHITE BLOOD CELL COUNT (BEAKER) (test wjwk=518) 7.7 K/ L 3.5-10.5 RED BLOOD CELL COUNT (BEAKER) (test kiox=030) 3.11 M/ L 4.63-6.08 HEMOGLOBIN (BEAKER) (test loyk=984) 10.0 GM/DL 13.7-17.5 HEMATOCRIT (BEAKER) (test elwq=234) 31.8 % 40.1-51.0 MEAN CORPUSCULAR VOLUME (BEAKER) (test tlft=927) 102.3 fL 79.0-92.2 MEAN CORPUSCULAR HEMOGLOBIN (BEAKER) (test 32.2 pg 25.7-32.2 cbqz=205) MEAN CORPUSCULAR HEMOGLOBIN CONC (BEAKER) (test 31.4 GM/DL 32.3-36.5 dnth=117) RED CELL DISTRIBUTION WIDTH (BEAKER) (test 14.9 % 11.6-14.4 clpw=373) PLATELET COUNT (BEAKER) (test mkaq=911) 164 K/CU MM 150-450 MEAN PLATELET VOLUME (BEAKER) (test jnja=320) 11.0 fL 9.4-12.4 NUCLEATED RED BLOOD CELLS (BEAKER) (test 0 /100 WBC 0-0 bdka=362) [id number] 00:36:00 Test Item Value Reference Range Comments POTASSIUM (BEAKER) (test 3.8 meq/L 3.5-5.1 Specimen slightly hemolyzed amyt=339) [id number] 21:26:00 Test Item Value Reference Range Comments POTASSIUM (BEAKER) (test mdfi=357) 3.7 meq/L 3.5-5.1 POCT-GLUCOSE [id number] 21:17:00 Test Item Value Reference Range Comments POC-GLUCOSE METER (BEAKER) 127 mg/dL 70-110 TESTED AT [facility] [address] [facility] (test tdgf=4435) [facility] [address] CALCIUM, [id number] 21:02:00 Test Item Value Reference Range Comments CALCIUM IONIZED (BEAKER) (test kjuy=206) 1.19 mmol/L 1.12-1.27 PH, BLOOD (BEAKER) (test dqck=7096) 7.43 [id number] 17:52:00 Test Item Value Reference Range Comments MAGNESIUM (BEAKER) (test 2.2 mg/dL 1.6-2.6 Specimen slightly hemolyzed vher=963) [id number] 17:52:00 Test Item Value Reference Range Comments PHOSPHORUS (BEAKER) (test 3.6 mg/dL 2.3-4.7 Specimen slightly hemolyzed bjro=916) [id number] 17:52:00 Test Item Value Reference Range Comments POTASSIUM (BEAKER) (test 4.0 meq/L 3.5-5.1 Specimen slightly hemolyzed fbji=571) [id number] 17:52:00 Test Item Value Reference Range Comments SODIUM (BEAKER) (test slto=738) 135 meq/L 136-145 POCT-GLUCOSE [id number] 17:20:00 Test Item Value Reference Range Comments POC-GLUCOSE METER (BEAKER) 82 mg/dL 70-110 TESTED AT [address] (test cvhb=2705) [place] [id number] T3, [id number] 14:22:00 Test Item Value Reference Range Comments T3 FREE (BEAKER) (test ouie=206) 1.50 pg/mL 1.71-3.71 [id number] 13:00:00 Test Item Value Reference Range Comments POTASSIUM (BEAKER) (test 3.9 meq/L 3.5-5.1 Specimen slightly hemolyzed vxvp=841) POCT-GLUCOSE [id number] 12:31:00 Test Item Value Reference Range Comments POC-GLUCOSE METER (BEAKER) 144 mg/dL 70-110 TESTED AT [address] (test noli=4201) [place] [address] [id number] 08:30:00 Test Item Value Reference Range Comments POTASSIUM (BEAKER) (test fwgu=011) 3.9 meq/L 3.5-5.1 [id number] 08:30:00 Test Item Value Reference Range Comments MAGNESIUM (BEAKER) (test hhfk=090) 2.1 mg/dL 1.6-2.6 [id number] 08:30:00 Test Item Value Reference Range Comments PHOSPHORUS (BEAKER) (test thwn=001) 2.4 mg/dL 2.3-4.7 [id number] 08:30:00 Test Item Value Reference Range Comments SODIUM (BEAKER) (test chzf=914) 134 meq/L 136-145 CALCIUM, [id number] 08:06:00 Test Item Value Reference Range Comments CALCIUM IONIZED (BEAKER) (test uiix=302) 1.25 mmol/L 1.12-1.27 PH, BLOOD (BEAKER) (test xzbo=4984) 7.39 POCT-GLUCOSE [id number] 07:07:00 Test Item Value Reference Range Comments POC-GLUCOSE METER (BEAKER) 129 mg/dL 70-110 TESTED AT [address] (test gwhe=2110) [facility] [address] BASIC METABOLIC [id number] 04:36:00 Test Item Value Reference Range Comments SODIUM (BEAKER) (test 135 meq/L 136-145 nmpu=261) POTASSIUM (BEAKER) (test 4.1 meq/L 3.5-5.1 watb=872) CHLORIDE (BEAKER) (test 101 meq/L 98-107 almg=021) CO2 (BEAKER) (test 27 meq/L 22-29 lwkz=499) BLOOD UREA NITROGEN 27 mg/dL 7-21 (BEAKER) (test gqyp=538) CREATININE (BEAKER) (test 2.87 mg/dL 0.57-1.25 vaes=113) GLUCOSE RANDOM (BEAKER) 99 mg/dL 70-105 (test bqha=023) CALCIUM (BEAKER) (test 9.5 mg/dL 8.4-10.2 iqpf=475) EGFR (BEAKER) (test 22 mL/min/1.73 sq m ESTIMATED GFR IS NOT xafw=0775) ACCURATE CREATININE CLEARANCE IN PREDICTING GLOMERULAR FILTRATION RATE. ESTIMATED GFR IS NOT APPLICABLE FOR DIALYSIS PATIENTS. [id number] 04:33:00 Test Item Value Reference Range Comments PHOSPHORUS (BEAKER) (test fawg=446) 3.3 mg/dL 2.3-4.7 HEPATIC FUNCTION [id number] 04:33:00 Test Item Value Reference Range Comments TOTAL PROTEIN (BEAKER) (test qbxx=001) 6.5 gm/dL 6.0-8.3 ALBUMIN (BEAKER) (test fkec=8377) 3.3 g/dL 3.5-5.0 BILIRUBIN TOTAL (BEAKER) (test gklc=938) 0.6 mg/dL 0.2-1.2 BILIRUBIN DIRECT (BEAKER) (test wqfu=606) 0.4 mg/dL 0.1-0.5 ALKALINE PHOSPHATASE (BEAKER) (test acjd=325) 73 U/L 40-150 AST (SGOT) (BEAKER) (test cxoh=306) 86 U/L 5-34 ALT (SGPT) (BEAKER) (test cbby=276) 62 U/L 6-55 CBC (HEMOGRAM ONLY)2018-10-20 04:07:00 Test Item Value Reference Range Comments WHITE BLOOD CELL COUNT (BEAKER) (test ynav=544) 11.5 K/ L 3.5-10.5 RED BLOOD CELL COUNT (BEAKER) (test mgbj=423) 3.31 M/ L 4.63-6.08 HEMOGLOBIN (BEAKER) (test gzxa=757) 10.6 GM/DL 13.7-17.5 HEMATOCRIT (BEAKER) (test pnob=962) 33.3 % 40.1-51.0 MEAN CORPUSCULAR VOLUME (BEAKER) (test uozy=063) 100.6 fL 79.0-92.2 MEAN CORPUSCULAR HEMOGLOBIN (BEAKER) (test 32.0 pg 25.7-32.2 ygux=505) MEAN CORPUSCULAR HEMOGLOBIN CONC (BEAKER) (test 31.8 GM/DL 32.3-36.5 rnnw=897) RED CELL DISTRIBUTION WIDTH (BEAKER) (test 15.0 % 11.6-14.4 tpfl=805) PLATELET COUNT (BEAKER) (test turj=674) 177 K/CU MM 150-450 MEAN PLATELET VOLUME (BEAKER) (test ckya=960) 11.2 fL 9.4-12.4 NUCLEATED RED BLOOD CELLS (BEAKER) (test 0 /100 WBC 0-0 zinh=398) [id number] 00:24:00 Test Item Value Reference Range Comments POTASSIUM (BEAKER) (test 4.4 meq/L 3.5-5.1 Specimen slightly hemolyzed bbnd=236) POCT-GLUCOSE [id number] 21:42:00 Test Item Value Reference Range Comments POC-GLUCOSE METER (BEAKER) 148 mg/dL 70-110 TESTED AT [address] (test gdwv=3802) [facility] [address] [id number] 20:25:00 Test Item Value Reference Range Comments POTASSIUM (BEAKER) (test wcgj=757) 4.6 meq/L 3.5-5.1 CALCIUM, [id number] 20:14:00 Test Item Value Reference Range Comments CALCIUM IONIZED (BEAKER) (test okfj=812) 1.26 mmol/L 1.12-1.27 PH, BLOOD (BEAKER) (test evgf=0190) 7.37 POCT-GLUCOSE [id number] 17:34:00 Test Item Value Reference Range Comments POC-GLUCOSE METER (BEAKER) 125 mg/dL 70-110 TESTED AT [facility] [address] (test mwzj=7469) [facility] [address] [id number] 17:11:00 Test Item Value Reference Range Comments POTASSIUM (BEAKER) (test gagi=940) 4.3 meq/L 3.5-5.1 [id number] 17:11:00 Test Item Value Reference Range Comments MAGNESIUM (BEAKER) (test owgq=162) 2.1 mg/dL 1.6-2.6 [id number] 17:11:00 Test Item Value Reference Range Comments PHOSPHORUS (BEAKER) (test mqza=596) 3.1 mg/dL 2.3-4.7 [id number] 17:11:00 Test Item Value Reference Range Comments SODIUM (BEAKER) (test kbfw=961) 134 meq/L 136-145 RAD, CHEST, 1 VIEW, NON [id number] 17:04:00Reason for exam:-> hypoxiaShould this be performed at the bedside?->YesFINAL REPORT Chest dated 10/19/2018 COMPARISON: October 18, 2018 Clinical Information: hypoxia Comment: Heart is enlarged. Pulmonary vasculature is indistinct. Interstitial disease is seen bilaterally suggestive of vascular congestion or pulmonary edema improved since prior study. No pleural effusion or pneumothorax is seen. Left IJ central venous catheters remain in place. Impression: Interval improvement of interstitial pulmonary disease. Signed: Bridget Del Rosario [facility] VerifiedDate/Time: 10/19/2018 17:04:29 Reading Location: [facility] C013W Consult Reading Room TROPONIN [id number] 13:49:00 Test Item Value Reference Range Comments TROPONIN I (BEAKER) (test xwpb=359) 2.13 ng/mL 0.00-0.03 Troponin I (TnI) levels must [...] failure, acidosis, acute neurological disease, and persistent tachyarrhythmia.[id number] 13:35:00 Test Item Value Reference Range Comments POTASSIUM (BEAKER) (test 3.6 meq/L 3.5-5.1 Specimen slightly hemolyzed vvzx=151) PH, [id number] 10:16:00 Test Item Value Reference Range Comments PH VENOUS (BEAKER) (test xtom=477) 7.39 7.32-7.42 POCT-GLUCOSE [id number] 10:03:00 Test Item Value Reference Range Comments POC-GLUCOSE METER (BEAKER) 134 mg/dL 70-110 TESTED AT [facility] [address] [facility] (test adle=3637) [facility] [address] T4, [id number] 08:51:00 Test Item Value Reference Range Comments FREE T4 (BEAKER) (test zytw=616) 0.98 ng/dL 0.70-1.48 BLOOD GAS, [id number] 06:17:00 Test Item Value Reference Range Comments PH ARTERIAL (BEAKER) (test qzlq=041) 7.39 7.35-7.45 PCO2 ARTERIAL (BEAKER) (test jzst=599) 40 mm Hg 35-45 PO2 ARTERIAL (BEAKER) (test qpyc=105) 54 mm Hg 80-90 O2 SATURATION ARTERIAL (BEAKER) (test bcdq=676) 89.0 % 96.0-97.0 HCO3 ARTERIAL (BEAKER) (test pzrm=410) 24 mmol/L 21-29 BASE EXCESS ARTERIAL (BEAKER) (test ijlg=003) -1.4 mmol/L -2.0-3.0 PATIENT TEMPERATURE (BEAKER) (test mfre=7411) 36.4 FIO2 (BEAKER) (test evdv=3625) 40 BASIC METABOLIC [id number] 05:10:00 Test Item Value Reference Range Comments SODIUM (BEAKER) (test 135 meq/L 136-145 ndwy=455) POTASSIUM (BEAKER) (test 5.6 meq/L 3.5-5.1 Specimen slightly nhqc=487) hemolyzed CHLORIDE (BEAKER) (test 98 meq/L 98-107 ptkl=236) CO2 (BEAKER) (test 24 meq/L 22-29 kpfn=677) BLOOD UREA NITROGEN 56 mg/dL 7-21 (BEAKER) (test bmxs=056) CREATININE (BEAKER) (test 6.22 mg/dL 0.57-1.25 Specimen slightly iips=667) hemolyzed GLUCOSE RANDOM (BEAKER) 170 mg/dL 70-105 (test pxsm=202) CALCIUM (BEAKER) (test 10.1 mg/dL 8.4-10.2 fint=822) EGFR (BEAKER) (test 9 mL/min/1.73 sq m ESTIMATED GFR IS NOT bkjz=2951) ACCURATE CREATININE CLEARANCE IN PREDICTING GLOMERULAR FILTRATION RATE. ESTIMATED GFR IS NOT APPLICABLE FOR DIALYSIS PATIENTS. [id number] 05:07:00 Test Item Value Reference Range Comments MAGNESIUM (BEAKER) (test 2.5 mg/dL 1.6-2.6 Specimen slightly hemolyzed uqus=957) [id number] 05:07:00 Test Item Value Reference Range Comments PHOSPHORUS (BEAKER) (test 6.4 mg/dL 2.3-4.7 Specimen slightly hemolyzed hjjv=649) HEPATIC FUNCTION [id number] 05:07:00 Test Item Value Reference Range Comments TOTAL PROTEIN (BEAKER) (test 7.2 gm/dL 6.0-8.3 Specimen slightly hemolyzed sjdc=774) ALBUMIN (BEAKER) (test 3.8 g/dL 3.5-5.0 Specimen slightly hemolyzed toxz=1217) BILIRUBIN TOTAL (BEAKER) (test 0.6 mg/dL 0.2-1.2 Specimen slightly hemolyzed qxqc=928) BILIRUBIN DIRECT (BEAKER) (test 0.4 mg/dL 0.1-0.5 Specimen slightly hemolyzed wqvq=575) ALKALINE PHOSPHATASE (BEAKER) 78 U/L 40-150 (test vagm=119) AST (SGOT) (BEAKER) (test 80 U/L 5-34 Specimen slightly hemolyzed tdyu=030) ALT (SGPT) (BEAKER) (test 37 U/L 6-55 Specimen slightly hemolyzed eyuw=577) PROTHROMBIN [id number] 04:50:00 Test Item Value Reference Range Comments PROTIME (BEAKER) (test zdvq=789) 34.3 seconds 11.9-14.2 INR (BEAKER) (test nxbi=287) 3.6 <=5.9 Effective 07/29/2018: PT Reference Range ChangeNew: 11.9-14.2 Previous: 11.7- 14.7RECOMMENDED COUMADIN/WARFARIN INR THERAPY RANGESSTANDARD DOSE: 2.0-3.0 Includes: PROPHYLAXIS for venous thrombosis, systemic embolization; TREATMENT for venous thrombosis and/or pulmonary embolus.HIGH RISK: Target INR is2.5-3.5 for patients wiht mechanical heart valves.CBC (HEMOGRAM ONLY)2018-10-19 04:31:00 Test Item Value Reference Range Comments WHITE BLOOD CELL COUNT (BEAKER) (test cjre=746) 13.1 K/ L 3.5-10.5 RED BLOOD CELL COUNT (BEAKER) (test tdwb=700) 3.58 M/ L 4.63-6.08 HEMOGLOBIN (BEAKER) (test zcec=381) 11.6 GM/DL 13.7-17.5 HEMATOCRIT (BEAKER) (test fcbo=663) 36.2 % 40.1-51.0 MEAN CORPUSCULAR VOLUME (BEAKER) (test szda=077) 101.1 fL 79.0-92.2 MEAN CORPUSCULAR HEMOGLOBIN (BEAKER) (test 32.4 pg 25.7-32.2 bfhy=544) MEAN CORPUSCULAR HEMOGLOBIN CONC (BEAKER) (test 32.0 GM/DL 32.3-36.5 lcea=012) RED CELL DISTRIBUTION WIDTH (BEAKER) (test 15.1 % 11.6-14.4 gxzh=606) PLATELET COUNT (BEAKER) (test ifir=860) 204 K/CU MM 150-450 MEAN PLATELET VOLUME (BEAKER) (test ofhc=474) 11.1 fL 9.4-12.4 NUCLEATED RED BLOOD CELLS (BEAKER) (test 0 /100 WBC 0-0 pdmw=631) TROPONIN [id number] 01:12:00 Test Item Value Reference Range Comments TROPONIN I (BEAKER) (test ahet=844) 1.38 ng/mL 0.00-0.03 Troponin I (TnI) levels must [...] failure, acidosis, acute neurological disease, and persistent tachyarrhythmia.[id number] 01:02:00 Test Item Value Reference Range Comments POTASSIUM (BEAKER) (test sieq=361) 6.3 meq/L 3.5-5.1 CALCIUM, [id number] 00:09:00 Test Item Value Reference Range Comments CALCIUM IONIZED (BEAKER) (test uyvk=222) 1.22 mmol/L 1.12-1.27 PH, BLOOD (BEAKER) (test dyph=8763) 7.31 POCT-GLUCOSE [id number] 22:16:00 Test Item Value Reference Range Comments POC-GLUCOSE METER (BEAKER) 171 mg/dL 70-110 TESTED AT [facility] [address] [facility] (test aamf=7744) [facility] [address] TROPONIN [id number] 20:58:00 Test Item Value Reference Range Comments TROPONIN I (BEAKER) (test clzl=800) 0.42 ng/mL 0.00-0.03 Troponin I (TnI) levels must [...] failure, acidosis, acute neurological disease, and persistent tachyarrhythmia.[id number] 20:45:00 Test Item Value Reference Range Comments POTASSIUM (BEAKER) (test 6.6 meq/L 3.5-5.1 Specimen slightly hemolyzed cwbi=708) [id number] 20:43:00 Test Item Value Reference Range Comments MAGNESIUM (BEAKER) (test 2.8 mg/dL 1.6-2.6 Specimen slightly hemolyzed ezby=001) [id number] 20:43:00 Test Item Value Reference Range Comments PHOSPHORUS (BEAKER) (test 8.5 mg/dL 2.3-4.7 Specimen slightly hemolyzed agyc=912) [id number] 20:43:00 Test Item Value Reference Range Comments SODIUM (BEAKER) (test dozz=693) 133 meq/L 136-145 HEPATIC FUNCTION [id number] 20:43:00 Test Item Value Reference Range Comments TOTAL PROTEIN (BEAKER) (test 7.6 gm/dL 6.0-8.3 Specimen slightly hemolyzed pltd=120) ALBUMIN (BEAKER) (test 3.8 g/dL 3.5-5.0 Specimen slightly hemolyzed tlls=6536) BILIRUBIN TOTAL (BEAKER) (test 0.5 mg/dL 0.2-1.2 Specimen slightly hemolyzed xcqx=781) BILIRUBIN DIRECT (BEAKER) (test 0.3 mg/dL 0.1-0.5 Specimen slightly hemolyzed oihw=335) ALKALINE PHOSPHATASE (BEAKER) 80 U/L 40-150 (test nhje=566) AST (SGOT) (BEAKER) (test 82 U/L 5-34 Specimen slightly hemolyzed nkvk=427) ALT (SGPT) (BEAKER) (test 25 U/L 6-55 Specimen slightly hemolyzed tbgs=165) RAD, CHEST, 1 VIEW, NON [id number] 20:41:00Reason for exam:->IJ central lineShould this be performed at the bedside?->YesFINAL REPORT CLINICAL INDICATION: Left IJ line placement Comparison: Same date at 1652 hours graft the left costophrenic sulcus is excluded from the image. A left IJ CVC tip overlies the junction of the innominate vein and superior vena cava adjacent to a previously placed tunneled left IJ dialysis catheter. There is no associated pneumothorax or hematoma. The cardiomediastinal contours are stable. Central pulmonary vascular congestion and bilateral parenchymal opacities are unchanged. Signed: Moreno Blandon MDReport Verified Date/Time: 20:41:05 Reading Location: [address] Reading Room PH, [id number] 20:21:00 Test Item Value Reference Range Comments PH ARTERIAL (BEAKER) (test rggt=994) 7.29 7.35-7.45 [id number] 18:06:00 Test Item Value Reference Range Comments THYROID STIMULATING HORMONE (BEAKER) (test 4.98 uIU/mL 0.35-4.94 nbfa=196) B-TYPE NATRIURETIC FACTOR (BNP)2018-10-18 17:43:00 Test Item Value Reference Range Comments B-TYPE NATRIURETIC PEPTIDE (BEAKER) (test 8414 pg/mL 0-100 upad=941) RAD, CHEST, 1 VIEW, NON [id number] 17:14:00Reason for exam:->SOBShould this be performed at the bedside?->YesFINAL REPORT Comparison: 08/26/2018 TECHNIQUE: Single view of the chest FINDINGS: There are some nonspecific prominent interstitial markings bilaterally which may represent mild vascular congestion. Left lung base is outside of the field of view. There may be small pleural effusions. Cardiac silhouette is enlarged. A left-sided vascular stent is seen. Tip of left-sided dialysis catheter projects at the upper SVC. Signed: Franklin Juan MDReport Verified Date/Time: 10/18/2018 17:14:55 Reading Location: [address] Transitional Reading Room BASI METABOLIC [id number] 15:27:00 Test Item Value Reference Range Comments SODIUM (BEAKER) (test 135 meq/L 136-145 dkcn=272) POTASSIUM (BEAKER) (test 6.0 meq/L 3.5-5.1 Specimen slightly gqde=363) hemolyzed CHLORIDE (BEAKER) (test 97 meq/L 98-107 gsgu=588) CO2 (BEAKER) (test 16 meq/L 22-29 coyv=981) BLOOD UREA NITROGEN 70 mg/dL 7-21 (BEAKER) (test hken=453) CREATININE (BEAKER) (test 8.88 mg/dL 0.57-1.25 Specimen slightly tamd=576) hemolyzed GLUCOSE RANDOM (BEAKER) 163 mg/dL 70-105 (test belc=821) CALCIUM (BEAKER) (test 10.5 mg/dL 8.4-10.2 eeha=193) EGFR (BEAKER) (test 6 mL/min/1.73 sq m ESTIMATED GFR IS NOT lrgv=7907) ACCURATE CREATININE CLEARANCE IN PREDICTING GLOMERULAR FILTRATION RATE. ESTIMATED GFR IS NOT APPLICABLE FOR DIALYSIS PATIENTS. CBC W/PLT COUNT & AUTO [id number] 15:15:00 Test Item Value Reference Range Comments WHITE BLOOD CELL COUNT (BEAKER) (test loru=373) 15.4 K/ L 3.5-10.5 RED BLOOD CELL COUNT (BEAKER) (test vynf=901) 3.75 M/ L 4.63-6.08 HEMOGLOBIN (BEAKER) (test mlvo=247) 12.3 GM/DL 13.7-17.5 HEMATOCRIT (BEAKER) (test gvrz=135) 38.9 % 40.1-51.0 MEAN CORPUSCULAR VOLUME (BEAKER) (test fobg=759) 103.7 fL 79.0-92.2 MEAN CORPUSCULAR HEMOGLOBIN (BEAKER) (test 32.8 pg 25.7-32.2 iysd=008) MEAN CORPUSCULAR HEMOGLOBIN CONC (BEAKER) (test 31.6 GM/DL 32.3-36.5 qcpc=765) RED CELL DISTRIBUTION WIDTH (BEAKER) (test 15.2 % 11.6-14.4 azya=796) PLATELET COUNT (BEAKER) (test lzgl=559) 224 K/CU MM 150-450 MEAN PLATELET VOLUME (BEAKER) (test hwct=997) 11.8 fL 9.4-12.4 NUCLEATED RED BLOOD CELLS (BEAKER) (test 0 /100 WBC 0-0 whlq=902) (CELLAVISION MANUAL DIFF)2018-10-18 15:15:00 Test Item Value Reference Range Comments NEUTROPHILS - REL (CELLAVISION)(BEAKER) (test 87 % lpjx=7668) LYMPHOCYTES - REL (CELLAVISION)(BEAKER) (test 4 % rbcr=2100) MONOCYTES - REL (CELLAVISION)(BEAKER) (test 8 % vzjc=5855) METAMYELOCYTES - REL (CELLAVISION)(BEAKER) (test 1 % 0-0 jpmi=3749) NEUTROPHILS - ABS (CELLAVISION)(BEAKER) (test 13.40 K/ul 1.78-5.38 wygi=3944) LYMPHOCYTES - ABS (CELLAVISION)(BEAKER) (test 0.62 K/ul 1.32-3.57 padl=2258) MONOCYTES - ABS (CELLAVISION)(BEAKER) (test 1.23 K/uL 0.30-0.82 seyh=8819) METAMYELOCYTES - ABS (CELLAVISION)(BEAKER) (test 0.15 K/uL 0.00-0.00 sgxf=8167) TOTAL COUNTED (BEAKER) (test tmcw=3367) 100 WBC MORPHOLOGY (BEAKER) (test xmnr=784) Normal PLT MORPHOLOGY (BEAKER) (test ctrd=650) Normal ANISOCYTOSIS (BEAKER) (test utsg=977) 1+ few MACROCYTES (BEAKER) (test tjyj=286) 1+ few POIKILOCYTES (BEAKER) (test gzdf=674) 1+ few ARTIFACT (CELLAVISION)(BEAKER) (test hlii=6419) Present PLATELET CONCENTRATION (CELLAVISION)(BEAKER) Adequate (test tfbq=7628) Received comment: User comments: Slide comments:HEPATIC FUNCTION [id number] 15:08:00 Test Item Value Reference Range Comments TOTAL PROTEIN (BEAKER) (test 7.7 gm/dL 6.0-8.3 Specimen slightly hemolyzed rqgi=842) ALBUMIN (BEAKER) (test 3.9 g/dL 3.5-5.0 Specimen slightly hemolyzed urfu=3323) BILIRUBIN TOTAL (BEAKER) (test 0.6 mg/dL 0.2-1.2 Specimen slightly hemolyzed yyzm=314) BILIRUBIN DIRECT (BEAKER) (test 0.3 mg/dL 0.1-0.5 Specimen slightly hemolyzed kynz=523) ALKALINE PHOSPHATASE (BEAKER) 87 U/L 40-150 (test rdxm=472) AST (SGOT) (BEAKER) (test 53 U/L 5-34 Specimen slightly hemolyzed jksu=495) ALT (SGPT) (BEAKER) (test 19 U/L 6-55 Specimen slightly hemolyzed mbnb=117) [id number] 14:50:00 Test Item Value Reference Range Comments PROTIME (BEAKER) (test sngu=441) 38.6 seconds 11.9-14.2 INR (BEAKER) (test huny=547) 4.2 <=5.9 PARTIAL THROMBOPLASTIN TIME (BEAKER) (test 51.3 seconds 22.5-36.0 ggvk=119) Effective 07/29/2018: PT Reference Range ChangeNew: 11.9-14.2 Previous: 11.7- 14.7RECOMMENDED COUMADIN/WARFARIN INR THERAPY RANGESSTANDARD DOSE: 2.0-3.0 Includes: PROPHYLAXIS for venous thrombosis, systemic embolization; TREATMENT for venous thrombosis and/or pulmonary embolus.HIGH RISK: Target INR is2.5-3.5 for patients wiht mechanical heart valves.PT/[id number] 11:42:00 Test Item Value Reference Range Comments PROTIME (BEAKER) (test qmzl=383) 24.7 seconds 11.9-14.2 INR (BEAKER) (test sxzv=555) 2.4 <=5.9 PARTIAL THROMBOPLASTIN TIME (BEAKER) (test 57.0 seconds 22.5-36.0 gasr=303) Effective 07/29/2018: PT Reference Range ChangeNew: 11.9-14.2 Previous: 11.7- 14.7RECOMMENDED COUMADIN/WARFARIN INR THERAPY RANGESSTANDARD DOSE: 2.0-3.0 Includes: PROPHYLAXIS for venous thrombosis, systemic embolization; TREATMENT for venous thrombosis and/or pulmonary embolus.HIGH RISK: Target INR is2.5-3.5 for patients wiht mechanical heart valves.RAD, CHEST, 1 VIEW, NON [id number] 11:15:00Reason for exam:->effusion vs atelectasisShould this be performed at the bedside?->YesFINAL REPORT Comparison: 2018 TECHNIQUE: Single view of the chest FINDINGS: Mild prominent interstitial markings again seen, relatively similar to previous. No large effusions. No gross new lung parenchymal changes. Cardiac silhouette is enlarged. Left-sided dialysis catheter again noted, stable. A stent projects over the left upper chest. Signed: Franklin Juan Verified Date/Time: 08/26/2018 11:15:52 Reading Location: [facility] Radiology Reading Room [id number] 09:15:00 Test Item Value Reference Range Comments PHOSPHORUS (BEAKER) (test ofno=352) 2.9 mg/dL 2.3-4.7 [id number] 09:15:00 Test Item Value Reference Range Comments MAGNESIUM (BEAKER) (test mnnf=878) 1.6 mg/dL 1.6-2.6 COMPREHENSIVE METABOLIC [id number] 09:15:00 Test Item Value Reference Range Comments TOTAL PROTEIN (BEAKER) 5.7 gm/dL 6.0-8.3 (test ezpj=865) ALBUMIN (BEAKER) (test 2.8 g/dL 3.5-5.0 xczv=1036) ALKALINE PHOSPHATASE 148 U/L 40-150 (BEAKER) (test ipjh=120) BILIRUBIN TOTAL (BEAKER) 1.5 mg/dL 0.2-1.2 (test xipu=281) SODIUM (BEAKER) (test 137 meq/L 136-145 jrek=466) POTASSIUM (BEAKER) (test 3.8 meq/L 3.5-5.1 fftx=124) CHLORIDE (BEAKER) (test 102 meq/L 98-107 wkoq=849) CO2 (BEAKER) (test 29 meq/L 22-29 tekc=498) BLOOD UREA NITROGEN 16 mg/dL 7-21 (BEAKER) (test snhy=392) CREATININE (BEAKER) (test 3.59 mg/dL 0.57-1.25 rwua=325) GLUCOSE RANDOM (BEAKER) 74 mg/dL 70-105 (test lvqg=574) CALCIUM (BEAKER) (test 8.5 mg/dL 8.4-10.2 pwie=021) AST (SGOT) (BEAKER) (test 24 U/L 5-34 fxfw=276) ALT (SGPT) (BEAKER) (test 8 U/L 6-55 ctaz=876) EGFR (BEAKER) (test 17 mL/min/1.73 sq m ESTIMATED GFR IS NOT mmfm=7833) ACCURATE CREATININE CLEARANCE IN PREDICTING GLOMERULAR FILTRATION RATE. ESTIMATED GFR IS NOT APPLICABLE FOR DIALYSIS PATIENTS. POCT-GLUCOSE [id number] 09:06:00 Test Item Value Reference Range Comments POC-GLUCOSE METER (BEAKER) 85 mg/dL 70-110 TESTED AT [address] (test oybr=9322) [place] [address] CBC W/PLT COUNT & AUTO [id number] 08:34:00 Test Item Value Reference Range Comments WHITE BLOOD CELL COUNT (BEAKER) (test fmez=516) 7.5 K/ L 3.5-10.5 RED BLOOD CELL COUNT (BEAKER) (test qgfd=100) 2.50 M/ L 4.63-6.08 HEMOGLOBIN (BEAKER) (test dkqf=751) 7.9 GM/DL 13.7-17.5 HEMATOCRIT (BEAKER) (test gnfn=956) 25.5 % 40.1-51.0 MEAN CORPUSCULAR VOLUME (BEAKER) (test wnsj=316) 102.0 fL 79.0-92.2 MEAN CORPUSCULAR HEMOGLOBIN (BEAKER) (test 31.6 pg 25.7-32.2 digi=574) MEAN CORPUSCULAR HEMOGLOBIN CONC (BEAKER) (test 31.0 GM/DL 32.3-36.5 ygyq=988) RED CELL DISTRIBUTION WIDTH (BEAKER) (test 17.3 % 11.6-14.4 ppib=083) PLATELET COUNT (BEAKER) (test cwca=793) 140 K/CU MM 150-450 MEAN PLATELET VOLUME (BEAKER) (test wonk=333) 10.1 fL 9.4-12.4 NUCLEATED RED BLOOD CELLS (BEAKER) (test 0 /100 WBC 0-0 ilin=318) NEUTROPHILS RELATIVE PERCENT (BEAKER) (test 70 % xsib=043) LYMPHOCYTES RELATIVE PERCENT (BEAKER) (test 13 % jhng=779) MONOCYTES RELATIVE PERCENT (BEAKER) (test 11 % otpm=134) EOSINOPHILS RELATIVE PERCENT (BEAKER) (test 5 % vlyx=683) BASOPHILS RELATIVE PERCENT (BEAKER) (test 1 % ekqd=614) NEUTROPHILS ABSOLUTE COUNT (BEAKER) (test 5.25 K/ L 1.78-5.38 isht=828) LYMPHOCYTES ABSOLUTE COUNT (BEAKER) (test 0.97 K/ L 1.32-3.57 bwpn=850) MONOCYTES ABSOLUTE COUNT (BEAKER) (test 0.84 K/ L 0.30-0.82 lmqb=170) EOSINOPHILS ABSOLUTE COUNT (BEAKER) (test 0.37 K/ L 0.04-0.54 notr=234) BASOPHILS ABSOLUTE COUNT (BEAKER) (test 0.05 K/ L 0.01-0.08 llap=010) IMMATURE GRANULOCYTES-RELATIVE PERCENT (BEAKER) 1 % 0-1 (test deqw=6337) BLOOD [id number] 08:01:00 Test Item Value Reference Range Comments CULTURE (BEAKER) (test wtlg=6887) No growth in 5 days BLOOD [id number] 08:01:00 Test Item Value Reference Range Comments CULTURE (BEAKER) (test zfdk=4104) No growth in 5 days POCT-GLUCOSE [id number] 22:09:00 Test Item Value Reference Range Comments POC-GLUCOSE METER (BEAKER) 186 mg/dL 70-110 TESTED AT [facility] [address] [place] [address] (test bzam=3863) [facility] [address] [id number] 18:27:00 Test Item Value Reference Range Comments MAGNESIUM (BEAKER) (test 1.8 mg/dL 1.6-2.6 Specimen slightly hemolyzed tbjj=666) [id number] 18:27:00 Test Item Value Reference Range Comments PHOSPHORUS (BEAKER) (test 2.0 mg/dL 2.3-4.7 Specimen slightly hemolyzed poqy=093) COMPREHENSIVE METABOLIC [id number] 18:27:00 Test Item Value Reference Range Comments TOTAL PROTEIN (BEAKER) 5.7 gm/dL 6.0-8.3 Specimen slightly (test hqix=359) hemolyzed ALBUMIN (BEAKER) (test 2.8 g/dL 3.5-5.0 Specimen slightly cosm=3878) hemolyzed ALKALINE PHOSPHATASE 149 U/L 40-150 (BEAKER) (test saoo=115) BILIRUBIN TOTAL (BEAKER) 1.5 mg/dL 0.2-1.2 Specimen slightly (test nnfk=678) hemolyzed SODIUM (BEAKER) (test 139 meq/L 136-145 jsfu=790) POTASSIUM (BEAKER) (test 3.8 meq/L 3.5-5.1 Specimen slightly tmqb=713) hemolyzed CHLORIDE (BEAKER) (test 102 meq/L 98-107 nowj=136) CO2 (BEAKER) (test 27 meq/L 22-29 hrdf=810) BLOOD UREA NITROGEN 8 mg/dL 7-21 (BEAKER) (test aqac=059) CREATININE (BEAKER) (test 2.16 mg/dL 0.57-1.25 Specimen slightly ovxz=049) hemolyzed GLUCOSE RANDOM (BEAKER) 129 mg/dL 70-105 (test gdej=122) CALCIUM (BEAKER) (test 8.5 mg/dL 8.4-10.2 nque=843) AST (SGOT) (BEAKER) (test 34 U/L 5-34 Specimen slightly muih=341) hemolyzed ALT (SGPT) (BEAKER) (test 10 U/L 6-55 Specimen slightly uosw=625) hemolyzed EGFR (BEAKER) (test 30 mL/min/1.73 sq m ESTIMATED GFR IS NOT vsyb=2261) ACCURATE CREATININE CLEARANCE IN PREDICTING GLOMERULAR FILTRATION RATE. ESTIMATED GFR IS NOT APPLICABLE FOR DIALYSIS PATIENTS. PROTHROMBIN [id number] 18:24:00 Test Item Value Reference Range Comments PROTIME (BEAKER) (test pqwm=949) 28.1 seconds 11.9-14.2 INR (BEAKER) (test uywp=780) 2.8 <=5.9 Effective 07/29/2018: PT Reference Range ChangeNew: 11.9-14.2 Previous: 11.7- 14.7RECOMMENDED COUMADIN/WARFARIN INR THERAPY RANGESSTANDARD DOSE: 2.0-3.0 Includes: PROPHYLAXIS for venous thrombosis, systemic embolization; TREATMENT for venous thrombosis and/or pulmonary embolus.HIGH RISK: Target INR is2.5-3.5 for patients wiht mechanical heart valves.CBC W/PLT COUNT & AUTO [id number] 18:07:00 Test Item Value Reference Range Comments WHITE BLOOD CELL COUNT (BEAKER) (test muud=855) 7.4 K/ L 3.5-10.5 RED BLOOD CELL COUNT (BEAKER) (test hjyf=160) 2.23 M/ L 4.63-6.08 HEMOGLOBIN (BEAKER) (test hcpq=235) 7.0 GM/DL 13.7-17.5 HEMATOCRIT (BEAKER) (test cyzm=911) 22.8 % 40.1-51.0 MEAN CORPUSCULAR VOLUME (BEAKER) (test dksj=877) 102.2 fL 79.0-92.2 MEAN CORPUSCULAR HEMOGLOBIN (BEAKER) (test 31.4 pg 25.7-32.2 tctj=457) MEAN CORPUSCULAR HEMOGLOBIN CONC (BEAKER) (test 30.7 GM/DL 32.3-36.5 lkju=948) RED CELL DISTRIBUTION WIDTH (BEAKER) (test 17.5 % 11.6-14.4 saba=236) PLATELET COUNT (BEAKER) (test fiak=395) 141 K/CU MM 150-450 MEAN PLATELET VOLUME (BEAKER) (test mfxd=163) 10.4 fL 9.4-12.4 NUCLEATED RED BLOOD CELLS (BEAKER) (test 0 /100 WBC 0-0 flmd=794) NEUTROPHILS RELATIVE PERCENT (BEAKER) (test 76 % yeox=617) LYMPHOCYTES RELATIVE PERCENT (BEAKER) (test 7 % mhba=038) MONOCYTES RELATIVE PERCENT (BEAKER) (test 11 % uvcb=862) EOSINOPHILS RELATIVE PERCENT (BEAKER) (test 5 % hcau=172) BASOPHILS RELATIVE PERCENT (BEAKER) (test 1 % puba=606) NEUTROPHILS ABSOLUTE COUNT (BEAKER) (test 5.54 K/ L 1.78-5.38 bvyv=487) LYMPHOCYTES ABSOLUTE COUNT (BEAKER) (test 0.54 K/ L 1.32-3.57 bigo=001) MONOCYTES ABSOLUTE COUNT (BEAKER) (test 0.78 K/ L 0.30-0.82 ddxm=593) EOSINOPHILS ABSOLUTE COUNT (BEAKER) (test 0.37 K/ L 0.04-0.54 dcfr=773) BASOPHILS ABSOLUTE COUNT (BEAKER) (test 0.06 K/ L 0.01-0.08 jocc=333) IMMATURE GRANULOCYTES-RELATIVE PERCENT (BEAKER) 1 % 0-1 (test giyq=7219) POCT-GLUCOSE [id number] 17:43:00 Test Item Value Reference Range Comments POC-GLUCOSE METER (BEAKER) 140 mg/dL 70-110 TESTED AT [address] (test ygai=7969) [place] [address] POCT-GLUCOSE [id number] 19:25:00 Test Item Value Reference Range Comments POC-GLUCOSE METER (BEAKER) 106 mg/dL 70-110 TESTED AT [address] (test zmhq=5092) [place] [address] COMPREHENSIVE METABOLIC [id number] 17:30:00 Test Item Value Reference Range Comments TOTAL PROTEIN (BEAKER) 5.7 gm/dL 6.0-8.3 (test ktlw=828) ALBUMIN (BEAKER) (test 2.8 g/dL 3.5-5.0 xrzt=7985) ALKALINE PHOSPHATASE 166 U/L 40-150 (BEAKER) (test hjlx=927) BILIRUBIN TOTAL (BEAKER) 1.6 mg/dL 0.2-1.2 (test scoq=895) SODIUM (BEAKER) (test 135 meq/L 136-145 ifla=637) POTASSIUM (BEAKER) (test 4.4 meq/L 3.5-5.1 kuwj=650) CHLORIDE (BEAKER) (test 99 meq/L 98-107 uasq=838) CO2 (BEAKER) (test 29 meq/L 22-29 zaxa=317) BLOOD UREA NITROGEN 31 mg/dL 7-21 (BEAKER) (test wjqq=324) CREATININE (BEAKER) (test 5.20 mg/dL 0.57-1.25 lkfg=282) GLUCOSE RANDOM (BEAKER) 127 mg/dL 70-105 (test vljf=962) CALCIUM (BEAKER) (test 8.8 mg/dL 8.4-10.2 menr=597) AST (SGOT) (BEAKER) (test 30 U/L 5-34 ksah=500) ALT (SGPT) (BEAKER) (test 9 U/L 6-55 hnic=007) EGFR (BEAKER) (test 11 mL/min/1.73 sq m ESTIMATED GFR IS NOT yhhd=7311) ACCURATE CREATININE CLEARANCE IN PREDICTING GLOMERULAR FILTRATION RATE. ESTIMATED GFR IS NOT APPLICABLE FOR DIALYSIS PATIENTS. [id number] 17:29:00 Test Item Value Reference Range Comments PHOSPHORUS (BEAKER) (test qtzi=960) 4.0 mg/dL 2.3-4.7 [id number] 17:29:00 Test Item Value Reference Range Comments MAGNESIUM (BEAKER) (test lyex=240) 2.2 mg/dL 1.6-2.6 [id number] 17:25:00 Test Item Value Reference Range Comments PROTIME (BEAKER) (test uzly=798) 24.9 seconds 11.9-14.2 INR (BEAKER) (test gijf=379) 2.4 <=5.9 PARTIAL THROMBOPLASTIN TIME (BEAKER) (test 49.8 seconds 22.5-36.0 mtkl=293) Effective 07/29/2018: PT Reference Range ChangeNew: 11.9-14.2 Previous: 11.7- 14.7RECOMMENDED COUMADIN/WARFARIN INR THERAPY RANGESSTANDARD DOSE: 2.0-3.0 Includes: PROPHYLAXIS for venous thrombosis, systemic embolization; TREATMENT for venous thrombosis and/or pulmonary embolus.HIGH RISK: Target INR is2.5-3.5 for patients wiht mechanical heart valves.Draw during dialysisDraw during dialysisPROTHROMBIN [id number] 17:24:00 Test Item Value Reference Range Comments PROTIME (BEAKER) (test ariq=944) 24.9 seconds 11.9-14.2 INR (BEAKER) (test qcna=893) 2.4 <=5.9 Effective 07/29/2018: PT Reference Range ChangeNew: 11.9-14.2 Previous: 11.7- 14.7RECOMMENDED COUMADIN/WARFARIN INR THERAPY RANGESSTANDARD DOSE: 2.0-3.0 Includes: PROPHYLAXIS for venous thrombosis, systemic embolization; TREATMENT for venous thrombosis and/or pulmonary embolus.HIGH RISK: Target INR is2.5-3.5 for patients wiht mechanical heart valves.CBC W/PLT COUNT & AUTO [id number] 17:17:00 Test Item Value Reference Range Comments WHITE BLOOD CELL COUNT (BEAKER) (test yatp=224) 8.0 K/ L 3.5-10.5 RED BLOOD CELL COUNT (BEAKER) (test lgex=663) 2.31 M/ L 4.63-6.08 HEMOGLOBIN (BEAKER) (test ynll=354) 7.4 GM/DL 13.7-17.5 HEMATOCRIT (BEAKER) (test iyzc=091) 23.0 % 40.1-51.0 MEAN CORPUSCULAR VOLUME (BEAKER) (test wzgm=125) 99.6 fL 79.0-92.2 MEAN CORPUSCULAR HEMOGLOBIN (BEAKER) (test 32.0 pg 25.7-32.2 wnix=209) MEAN CORPUSCULAR HEMOGLOBIN CONC (BEAKER) (test 32.2 GM/DL 32.3-36.5 mtwc=326) RED CELL DISTRIBUTION WIDTH (BEAKER) (test 17.6 % 11.6-14.4 tvst=393) PLATELET COUNT (BEAKER) (test puvu=824) 140 K/CU MM 150-450 MEAN PLATELET VOLUME (BEAKER) (test xkjq=121) 10.6 fL 9.4-12.4 NUCLEATED RED BLOOD CELLS (BEAKER) (test 0 /100 WBC 0-0 ocxo=172) NEUTROPHILS RELATIVE PERCENT (BEAKER) (test 77 % mync=952) LYMPHOCYTES RELATIVE PERCENT (BEAKER) (test 8 % pjtw=437) MONOCYTES RELATIVE PERCENT (BEAKER) (test 10 % ymvo=888) EOSINOPHILS RELATIVE PERCENT (BEAKER) (test 5 % ywdm=699) BASOPHILS RELATIVE PERCENT (BEAKER) (test 1 % mlwa=732) NEUTROPHILS ABSOLUTE COUNT (BEAKER) (test 6.12 K/ L 1.78-5.38 xgrj=190) LYMPHOCYTES ABSOLUTE COUNT (BEAKER) (test 0.62 K/ L 1.32-3.57 sixs=704) MONOCYTES ABSOLUTE COUNT (BEAKER) (test 0.78 K/ L 0.30-0.82 gyat=505) EOSINOPHILS ABSOLUTE COUNT (BEAKER) (test 0.38 K/ L 0.04-0.54 vuef=353) BASOPHILS ABSOLUTE COUNT (BEAKER) (test 0.04 K/ L 0.01-0.08 gljy=294) IMMATURE GRANULOCYTES-RELATIVE PERCENT (BEAKER) 1 % 0-1 (test dqfk=5028) POCT-GLUCOSE [id number] 12:10:00 Test Item Value Reference Range Comments POC-GLUCOSE METER (BEAKER) 164 mg/dL 70-110 TESTED AT [address] (test pqld=3405) [facility] [address] RAD, CHEST, 1 VIEW, NON [id number] 09:42:00Reason for exam:->effusion vs atelectasisShould this be performed at the bedside?->YesFINAL REPORT CLINICAL HISTORY: effusion vs atelectasis TECHNIQUE: 1 view of the chest. COMPARISON: 08/23/2018 IMPRESSION: The left central line is unchanged. Bilateral airspace opacities appear slightly decreased. There is no significant pleural fluid. The cardiomediastinal silhouette is magnified by technique. Signed: Stephanie Santacruz MDReport Verified Date/Time: 08/24/2018 09:42: 37 [facility] POCT-GLUCOSE [id number] 08:18:00 Test Item Value Reference Range Comments POC-GLUCOSE METER (BEAKER) 145 mg/dL 70-110 TESTED AT [address] (test ypev=2307) [facility] [address] POCT-GLUCOSE [id number] 23:55:00 Test Item Value Reference Range Comments POC-GLUCOSE METER (BEAKER) 163 mg/dL 70-110 TESTED AT [address] (test mnqp=2866) [facility] [address] POCT-GLUCOSE [id number] 18:04:00 Test Item Value Reference Range Comments POC-GLUCOSE METER (BEAKER) 141 mg/dL 70-110 TESTED AT [address] (test ygae=5866) [facility] [address] POCT-GLUCOSE [id number] 08:04:00 Test Item Value Reference Range Comments POC-GLUCOSE METER (BEAKER) 138 mg/dL 70-110 TESTED AT [address] (test qeis=7619) [facility] [address] RAD, CHEST, 1 VIEW, NON [id number] 07:29:00Reason for exam:->effusion vs atelectasisShould this be [...] is magnified by technique. Signed: Stephanie Santacruz MDReport Verified Date/Time: 07:29:02 Reading Location: [facility] C013V Neuro Reading Room COMPREHENSIVE METABOLIC [id number] 04:16:00 Test Item Value Reference Range Comments TOTAL PROTEIN (BEAKER) 5.6 gm/dL 6.0-8.3 (test pcxb=505) ALBUMIN (BEAKER) (test 2.8 g/dL 3.5-5.0 kptz=6564) ALKALINE PHOSPHATASE 174 U/L 40-150 (BEAKER) (test ntsm=466) BILIRUBIN TOTAL (BEAKER) 1.5 mg/dL 0.2-1.2 (test uinn=218) SODIUM (BEAKER) (test 138 meq/L 136-145 esii=160) POTASSIUM (BEAKER) (test 4.0 meq/L 3.5-5.1 bnxz=673) CHLORIDE (BEAKER) (test 102 meq/L 98-107 kike=778) CO2 (BEAKER) (test 27 meq/L 22-29 sybw=468) BLOOD UREA NITROGEN 19 mg/dL 7-21 (BEAKER) (test vasn=143) CREATININE (BEAKER) (test 3.43 mg/dL 0.57-1.25 cebs=441) GLUCOSE RANDOM (BEAKER) 146 mg/dL 70-105 (test shko=821) CALCIUM (BEAKER) (test 8.7 mg/dL 8.4-10.2 aszb=718) AST (SGOT) (BEAKER) (test 31 U/L 5-34 dxdh=141) ALT (SGPT) (BEAKER) (test 15 U/L 6-55 kjye=039) EGFR (BEAKER) (test 18 mL/min/1.73 sq m ESTIMATED GFR IS NOT yhin=9716) ACCURATE CREATININE CLEARANCE IN PREDICTING GLOMERULAR FILTRATION RATE. ESTIMATED GFR IS NOT APPLICABLE FOR DIALYSIS PATIENTS. [id number] 04:04:00 Test Item Value Reference Range Comments PHOSPHORUS (BEAKER) (test pdgo=058) 2.8 mg/dL 2.3-4.7 [id number] 04:04:00 Test Item Value Reference Range Comments MAGNESIUM (BEAKER) (test dxqn=064) 1.9 mg/dL 1.6-2.6 CBC W/PLT COUNT & AUTO [id number] 03:34:00 Test Item Value Reference Range Comments WHITE BLOOD CELL COUNT (BEAKER) (test xzns=439) 7.1 K/ L 3.5-10.5 RED BLOOD CELL COUNT (BEAKER) (test mpvm=074) 2.48 M/ L 4.63-6.08 HEMOGLOBIN (BEAKER) (test guje=422) 7.8 GM/DL 13.7-17.5 HEMATOCRIT (BEAKER) (test yevf=820) 25.0 % 40.1-51.0 MEAN CORPUSCULAR VOLUME (BEAKER) (test svyy=172) 100.8 fL 79.0-92.2 MEAN CORPUSCULAR HEMOGLOBIN (BEAKER) (test 31.5 pg 25.7-32.2 wtkm=560) MEAN CORPUSCULAR HEMOGLOBIN CONC (BEAKER) (test 31.2 GM/DL 32.3-36.5 morr=173) RED CELL DISTRIBUTION WIDTH (BEAKER) (test 17.5 % 11.6-14.4 jjcw=580) PLATELET COUNT (BEAKER) (test dfai=629) 150 K/CU MM 150-450 MEAN PLATELET VOLUME (BEAKER) (test znce=590) 10.5 fL 9.4-12.4 NUCLEATED RED BLOOD CELLS (BEAKER) (test 0 /100 WBC 0-0 mvqf=621) NEUTROPHILS RELATIVE PERCENT (BEAKER) (test 72 % qclk=834) LYMPHOCYTES RELATIVE PERCENT (BEAKER) (test 12 % pgwe=181) MONOCYTES RELATIVE PERCENT (BEAKER) (test 10 % ckvg=847) EOSINOPHILS RELATIVE PERCENT (BEAKER) (test 5 % kwwx=445) BASOPHILS RELATIVE PERCENT (BEAKER) (test 1 % qnfd=151) NEUTROPHILS ABSOLUTE COUNT (BEAKER) (test 5.08 K/ L 1.78-5.38 jpqw=191) LYMPHOCYTES ABSOLUTE COUNT (BEAKER) (test 0.86 K/ L 1.32-3.57 hdkv=260) MONOCYTES ABSOLUTE COUNT (BEAKER) (test 0.68 K/ L 0.30-0.82 khpc=649) EOSINOPHILS ABSOLUTE COUNT (BEAKER) (test 0.36 K/ L 0.04-0.54 olna=199) BASOPHILS ABSOLUTE COUNT (BEAKER) (test 0.04 K/ L 0.01-0.08 dzzt=746) IMMATURE GRANULOCYTES-RELATIVE PERCENT (BEAKER) 1 % 0-1 (test xcek=5436) [id number] 03:34:00 Test Item Value Reference Range Comments PROTIME (BEAKER) (test zuqv=548) 24.7 seconds 11.9-14.2 INR (BEAKER) (test jsaw=674) 2.4 <=5.9 PARTIAL THROMBOPLASTIN TIME (BEAKER) (test 78.1 seconds 22.5-36.0 hvrv=655) Effective 07/29/2018: PT Reference Range ChangeNew: 11.9-14.2 Previous: 11.7- 14.7RECOMMENDED COUMADIN/WARFARIN INR THERAPY RANGESSTANDARD DOSE: 2.0-3.0 Includes: PROPHYLAXIS for venous thrombosis, systemic embolization; TREATMENT for venous thrombosis and/or pulmonary embolus.HIGH RISK: Target INR is2.5-3.5 for patients wiht mechanical heart valves.PROTHROMBIN [id number] 03:32: 00 Test Item Value Reference Range Comments PROTIME (BEAKER) (test pndw=163) 24.7 seconds 11.9-14.2 INR (BEAKER) (test qaiw=969) 2.4 <=5.9 Effective 07/29/2018: PT Reference Range ChangeNew: 11.9-14.2 Previous: 11.7- 14.7RECOMMENDED COUMADIN/WARFARIN INR THERAPY RANGESSTANDARD DOSE: 2.0-3.0 Includes: PROPHYLAXIS for venous thrombosis, systemic embolization; TREATMENT for venous thrombosis and/or pulmonary embolus.HIGH RISK: Target INR is2.5-3.5 for patients wiht mechanical heart valves.POCT-GLUCOSE [id number] 21:42:00 Test Item Value Reference Range Comments POC-GLUCOSE METER (BEAKER) 155 mg/dL 70-110 TESTED AT [address] (test dhab=9702) [place] [address] HEPATITIS B SURFACE [id number] 18:37:00 Test Item Value Reference Range Comments HEPATITIS B SURFACE ANTIGEN (2) (BEAKER) (test Nonreactive Nonreactive lycp=2846) POCT-GLUCOSE [id number] 16:21:00 Test Item Value Reference Range Comments POC-GLUCOSE METER (BEAKER) 114 mg/dL 70-110 TESTED AT [address] (test yvlb=3082) [place] [id number] RAD, CHEST, 1 VIEW, NON [id number] 10:26:00Reason for exam:->effusion vs atelectasisShould this be [...] 1. No acute cardiopulmonary disease. Signed: Franklin Juan MDReport Verified Date/Time: 08/22 10:26:49 Reading Location: [address] Transitional Reading Room COMPREHENSIVE METABOLIC [id number] 09:58:00 Test Item Value Reference Range Comments TOTAL PROTEIN (BEAKER) 5.7 gm/dL 6.0-8.3 Specimen slightly (test rnbd=651) hemolyzed ALBUMIN (BEAKER) (test 2.8 g/dL 3.5-5.0 Specimen slightly vlad=5781) hemolyzed ALKALINE PHOSPHATASE 179 U/L 40-150 (BEAKER) (test fgiu=660) BILIRUBIN TOTAL (BEAKER) 1.2 mg/dL 0.2-1.2 Specimen slightly (test pilb=887) hemolyzed SODIUM (BEAKER) (test 137 meq/L 136-145 ovpt=860) POTASSIUM (BEAKER) (test 4.8 meq/L 3.5-5.1 Specimen slightly skpu=238) hemolyzed CHLORIDE (BEAKER) (test 104 meq/L 98-107 gqcj=780) CO2 (BEAKER) (test 25 meq/L 22-29 ewel=301) BLOOD UREA NITROGEN 30 mg/dL 7-21 (BEAKER) (test hxqn=964) CREATININE (BEAKER) (test 4.82 mg/dL 0.57-1.25 Specimen slightly rghz=759) hemolyzed GLUCOSE RANDOM (BEAKER) 139 mg/dL 70-105 (test shpu=348) CALCIUM (BEAKER) (test 8.7 mg/dL 8.4-10.2 okfw=817) AST (SGOT) (BEAKER) (test 38 U/L 5-34 Specimen slightly mrsm=390) hemolyzed ALT (SGPT) (BEAKER) (test 18 U/L 6-55 Specimen slightly khfd=997) hemolyzed EGFR (BEAKER) (test 12 mL/min/1.73 sq m ESTIMATED GFR IS NOT rxie=2620) ACCURATE CREATININE CLEARANCE IN PREDICTING GLOMERULAR FILTRATION RATE. ESTIMATED GFR IS NOT APPLICABLE FOR DIALYSIS PATIENTS. [id number] 09:41:00 Test Item Value Reference Range Comments MAGNESIUM (BEAKER) (test 2.3 mg/dL 1.6-2.6 Specimen slightly hemolyzed xvpt=541) [id number] 09:41:00 Test Item Value Reference Range Comments PHOSPHORUS (BEAKER) (test 3.8 mg/dL 2.3-4.7 Specimen slightly hemolyzed zxaw=092) BLOOD [id number] 09:14:00 Test Item Value Reference Range Comments CULTURE (BEAKER) (test STAPHYLOCOCCUS AUREUS From Aerobic And gvsw=1853) Anaerobic Bottles Staphylococcus aureus Clindamycin (test code=10) Erythromycin (test code=4) Linezolid (test code=40) Oxacillin (test code=14) Rifampin (test code=43) Tetracycline (test code=2) Trimethoprim + Sulfamethoxazole (test code=47) Vancomycin (test code=13) GRAM STAIN RESULT From aerobic and (BEAKER) (test aglq=4988) anaerobic bottles: gram positive cocci in pairs and clusters U/S, EXTREMITY (NON-VASCULAR) [id number] 08:59:00Reason for exam:-> AVF Left arm for [...] AV fistula. Minimal fluid seen. Signed: Daniel Gibbs MDReport Verified Date/Time: 08/22/2018 08: 59:48 Reading Location: [facility] B1 C013X Ortho Consult Reading Room POCT- GLUCOSE [id number] 07:15:00 Test Item Value Reference Range Comments POC-GLUCOSE METER (BEAKER) 160 mg/dL 70-110 TESTED AT [facility] [address] [facility] (test cqta=7016) [place] [address] PT/[id number] 06:52:00 Test Item Value Reference Range Comments PROTIME (BEAKER) (test igha=350) 18.5 seconds 11.9-14.2 INR (BEAKER) (test jjnh=499) 1.6 <=5.9 PARTIAL THROMBOPLASTIN TIME (BEAKER) (test 72.0 seconds 22.5-36.0 qwxn=019) Effective 07/29/2018: PT Reference Range ChangeNew: 11.9-14.2 Previous: 11.7- 14.7RECOMMENDED COUMADIN/WARFARIN INR THERAPY RANGESSTANDARD DOSE: 2.0-3.0 Includes: PROPHYLAXIS for venous thrombosis, systemic embolization; TREATMENT for venous thrombosis and/or pulmonary embolus.HIGH RISK: Target INR is2.5-3.5 for patients wiht mechanical heart valves.CBC W/PLT COUNT & AUTO [id number] 06:44:00 Test Item Value Reference Range Comments WHITE BLOOD CELL COUNT 7.2 K/ L 3.5-10.5 (BEAKER) (test fdfc=034) RED BLOOD CELL COUNT (BEAKER) 2.58 M/ L 4.63-6.08 (test biov=360) HEMOGLOBIN (BEAKER) (test 8.2 GM/DL 13.7-17.5 osqi=653) HEMATOCRIT (BEAKER) (test 26.4 % 40.1-51.0 mxbm=320) MEAN CORPUSCULAR VOLUME 102.3 fL 79.0-92.2 Discordant result compares (BEAKER) (test fhqp=693) with previous; clinical correlation requires. MEAN CORPUSCULAR HEMOGLOBIN 31.8 pg 25.7-32.2 (BEAKER) (test qiih=384) MEAN CORPUSCULAR HEMOGLOBIN 31.1 GM/DL 32.3-36.5 CONC (BEAKER) (test abrk=448) RED CELL DISTRIBUTION WIDTH 18.0 % 11.6-14.4 (BEAKER) (test bilq=630) PLATELET COUNT (BEAKER) (test 172 K/CU MM 150-450 tlqq=942) MEAN PLATELET VOLUME (BEAKER) 10.9 fL 9.4-12.4 (test avgz=935) NUCLEATED RED BLOOD CELLS 0 /100 WBC 0-0 (BEAKER) (test yier=655) NEUTROPHILS RELATIVE PERCENT 75 % (BEAKER) (test kfdf=165) LYMPHOCYTES RELATIVE PERCENT 8 % (BEAKER) (test guwj=795) MONOCYTES RELATIVE PERCENT 10 % (BEAKER) (test uhpl=275) EOSINOPHILS RELATIVE PERCENT 5 % (BEAKER) (test sgwf=283) BASOPHILS RELATIVE PERCENT 1 % (BEAKER) (test zwff=313) NEUTROPHILS ABSOLUTE COUNT 5.46 K/ L 1.78-5.38 (BEAKER) (test arqw=176) LYMPHOCYTES ABSOLUTE COUNT 0.59 K/ L 1.32-3.57 (BEAKER) (test fsgf=287) MONOCYTES ABSOLUTE COUNT 0.75 K/ L 0.30-0.82 (BEAKER) (test zsnt=918) EOSINOPHILS ABSOLUTE COUNT 0.33 K/ L 0.04-0.54 (BEAKER) (test zfih=425) BASOPHILS ABSOLUTE COUNT 0.04 K/ L 0.01-0.08 (BEAKER) (test xzaq=567) IMMATURE 1 % 0-1 GRANULOCYTES-RELATIVE PERCENT (BEAKER) (test oetn=5613) POCT-GLUCOSE [id number] 22:02:00 Test Item Value Reference Range Comments POC-GLUCOSE METER (BEAKER) 194 mg/dL 70-110 TESTED AT [address] (test zukw=9076) [facility] [address] U/S, EXTREMITY (NON-VASCULAR), LEFT, [id number] 20:03:00Reason for exam:- >left upper arm around [...] MDReport Verified Date/Time: 08/21/2018 20:03:43 Reading Location: [facility] [id number] Consult Reading Room POCT-GLUCOSE [id number] 17:27:00 Test Item Value Reference Range Comments POC-GLUCOSE METER (BEAKER) 202 mg/dL 70-110 TESTED AT [address] (test hbkm=8849) [place] [address] POCT-GLUCOSE [id number] 11:50:00 Test Item Value Reference Range Comments POC-GLUCOSE METER (BEAKER) 130 mg/dL 70-110 TESTED AT [address] (test bvhu=1245) [place] [address] RAD, CHEST, 1 VIEW, NON [id number] 08:49:00Reason for exam:->effusion vs atelectasisShould this be [...] MDReport Verified Date/Time: 08/21/2018 08:49:32 Reading Location: [facility] Radiology Reading Room POCT-GLUCOSE [id number] 08: 09:00 Test Item Value Reference Range Comments POC-GLUCOSE METER (BEAKER) 221 mg/dL 70-110 TESTED AT [address] (test titn=4368) [place] [address] COMPREHENSIVE METABOLIC [id number] 02:27:00 Test Item Value Reference Range Comments TOTAL PROTEIN (BEAKER) 5.5 gm/dL 6.0-8.3 Specimen slightly (test ieph=908) hemolyzed ALBUMIN (BEAKER) (test 2.7 g/dL 3.5-5.0 Specimen slightly twsy=4915) hemolyzed ALKALINE PHOSPHATASE 156 U/L 40-150 (BEAKER) (test hkpx=584) BILIRUBIN TOTAL (BEAKER) 1.2 mg/dL 0.2-1.2 Specimen slightly (test cjhq=298) hemolyzed SODIUM (BEAKER) (test 135 meq/L 136-145 xhqf=861) POTASSIUM (BEAKER) (test 4.7 meq/L 3.5-5.1 Specimen slightly druq=391) hemolyzed CHLORIDE (BEAKER) (test 98 meq/L 98-107 tomz=302) CO2 (BEAKER) (test 28 meq/L 22-29 ofix=930) BLOOD UREA NITROGEN 40 mg/dL 7-21 (BEAKER) (test yans=289) CREATININE (BEAKER) (test 6.42 mg/dL 0.57-1.25 Specimen slightly oxlw=222) hemolyzed GLUCOSE RANDOM (BEAKER) 228 mg/dL 70-105 (test ewxo=508) CALCIUM (BEAKER) (test 8.6 mg/dL 8.4-10.2 esqy=284) AST (SGOT) (BEAKER) (test 38 U/L 5-34 Specimen slightly kstb=324) hemolyzed ALT (SGPT) (BEAKER) (test 28 U/L 6-55 Specimen slightly gqhb=608) hemolyzed EGFR (BEAKER) (test 9 mL/min/1.73 sq m ESTIMATED GFR IS NOT vcbc=0825) ACCURATE CREATININE CLEARANCE IN PREDICTING GLOMERULAR FILTRATION RATE. ESTIMATED GFR IS NOT APPLICABLE FOR DIALYSIS PATIENTS. [id number] 02:19:00 Test Item Value Reference Range Comments PROTIME (BEAKER) (test mkvc=633) 19.6 seconds 11.9-14.2 INR (BEAKER) (test qkfa=764) 1.8 <=5.9 PARTIAL THROMBOPLASTIN TIME (BEAKER) (test 74.9 seconds 22.5-36.0 bywo=209) Effective 07/29/2018: PT Reference Range ChangeNew: 11.9-14.2 Previous: 11.7- 14.7RECOMMENDED COUMADIN/WARFARIN INR THERAPY RANGESSTANDARD DOSE: 2.0-3.0 Includes: PROPHYLAXIS for venous thrombosis, systemic embolization; TREATMENT for venous thrombosis and/or pulmonary embolus.HIGH RISK: Target INR is2.5-3.5 for patients wiht mechanical heart valves.[id number] 02:15:00 Test Item Value Reference Range Comments MAGNESIUM (BEAKER) (test 2.3 mg/dL 1.6-2.6 Specimen slightly hemolyzed ldwy=879) [id number] 02:15:00 Test Item Value Reference Range Comments PHOSPHORUS (BEAKER) (test 4.2 mg/dL 2.3-4.7 Specimen slightly hemolyzed bpcp=520) CBC W/PLT COUNT & AUTO [id number] 01:56:00 Test Item Value Reference Range Comments WHITE BLOOD CELL COUNT (BEAKER) (test webv=899) 7.5 K/ L 3.5-10.5 RED BLOOD CELL COUNT (BEAKER) (test atma=656) 2.55 M/ L 4.63-6.08 HEMOGLOBIN (BEAKER) (test tens=830) 8.2 GM/DL 13.7-17.5 HEMATOCRIT (BEAKER) (test gkop=169) 24.9 % 40.1-51.0 MEAN CORPUSCULAR VOLUME (BEAKER) (test dqkh=732) 97.6 fL 79.0-92.2 MEAN CORPUSCULAR HEMOGLOBIN (BEAKER) (test 32.2 pg 25.7-32.2 ethx=792) MEAN CORPUSCULAR HEMOGLOBIN CONC (BEAKER) (test 32.9 GM/DL 32.3-36.5 hwzu=182) RED CELL DISTRIBUTION WIDTH (BEAKER) (test 17.7 % 11.6-14.4 atnx=246) PLATELET COUNT (BEAKER) (test oeda=358) 171 K/CU MM 150-450 MEAN PLATELET VOLUME (BEAKER) (test nikn=788) 10.5 fL 9.4-12.4 NUCLEATED RED BLOOD CELLS (BEAKER) (test 0 /100 WBC 0-0 nkgz=277) NEUTROPHILS RELATIVE PERCENT (BEAKER) (test 71 % ioyp=595) LYMPHOCYTES RELATIVE PERCENT (BEAKER) (test 12 % psga=341) MONOCYTES RELATIVE PERCENT (BEAKER) (test 12 % zpee=233) EOSINOPHILS RELATIVE PERCENT (BEAKER) (test 4 % pxyo=387) BASOPHILS RELATIVE PERCENT (BEAKER) (test 1 % dwen=793) NEUTROPHILS ABSOLUTE COUNT (BEAKER) (test 5.25 K/ L 1.78-5.38 petf=621) LYMPHOCYTES ABSOLUTE COUNT (BEAKER) (test 0.90 K/ L 1.32-3.57 jqsn=503) MONOCYTES ABSOLUTE COUNT (BEAKER) (test 0.92 K/ L 0.30-0.82 fssa=915) EOSINOPHILS ABSOLUTE COUNT (BEAKER) (test 0.29 K/ L 0.04-0.54 yuhw=726) BASOPHILS ABSOLUTE COUNT (BEAKER) (test 0.04 K/ L 0.01-0.08 xlhe=922) IMMATURE GRANULOCYTES-RELATIVE PERCENT (BEAKER) 1 % 0-1 (test ckdr=8225) POCT-GLUCOSE [id number] 22:44:00 Test Item Value Reference Range Comments POC-GLUCOSE METER (BEAKER) 220 mg/dL 70-110 TESTED AT [address] (test dflj=3148) [place] [address] POCT-GLUCOSE [id number] 22:44:00 Test Item Value Reference Range Comments POC-GLUCOSE METER (BEAKER) 160 mg/dL 70-110 TESTED AT [address] (test btwj=9406) [place] [address] POCT-GLUCOSE [id number] 18:37:00 Test Item Value Reference Range Comments POC-GLUCOSE METER (BEAKER) 239 mg/dL 70-110 TESTED AT [address] (test bjwo=4175) [place] [address] [id number] 13:41:00 Test Item Value Reference Range Comments PARTIAL THROMBOPLASTIN TIME (BEAKER) (test 89.2 seconds 22.5-36.0 wndq=151) 4 hours after the start of continuous infusion and 4 hours after any rate changePOCT-GLUCOSE [id number] 12:27:00 Test Item Value Reference Range Comments POC-GLUCOSE METER (BEAKER) 147 mg/dL 70-110 TESTED AT [address] (test txes=9535) [place] [address] [id number] 10:01:00 Test Item Value Reference Range Comments PARTIAL THROMBOPLASTIN TIME (BEAKER) (test 84.5 seconds 22.5-36.0 tokh=044) 4 hours after the start of continuous infusion and 4 hours after any rate changePOCT-GLUCOSE [id number] 05:44:00 Test Item Value Reference Range Comments POC-GLUCOSE METER (BEAKER) 190 mg/dL 70-110 TESTED AT [facility] [address] [facility] (test fdhu=6157) [facility] [address] COMPREHENSIVE METABOLIC [id number] 04:54:00 Test Item Value Reference Range Comments TOTAL PROTEIN (BEAKER) 5.2 gm/dL 6.0-8.3 (test crmv=478) ALBUMIN (BEAKER) (test 2.7 g/dL 3.5-5.0 yhyv=0319) ALKALINE PHOSPHATASE 160 U/L 40-150 (BEAKER) (test qfkv=988) BILIRUBIN TOTAL (BEAKER) 1.2 mg/dL 0.2-1.2 (test pyjd=839) SODIUM (BEAKER) (test 139 meq/L 136-145 qexf=552) POTASSIUM (BEAKER) (test 4.5 meq/L 3.5-5.1 cmwp=220) CHLORIDE (BEAKER) (test 104 meq/L 98-107 khab=462) CO2 (BEAKER) (test 24 meq/L 22-29 eksn=700) BLOOD UREA NITROGEN 32 mg/dL 7-21 (BEAKER) (test xjid=742) CREATININE (BEAKER) (test 5.06 mg/dL 0.57-1.25 jbqd=418) GLUCOSE RANDOM (BEAKER) 177 mg/dL 70-105 (test mwnf=682) CALCIUM (BEAKER) (test 8.9 mg/dL 8.4-10.2 nlhc=071) AST (SGOT) (BEAKER) (test 32 U/L 5-34 jdjb=205) ALT (SGPT) (BEAKER) (test 37 U/L 6-55 ttrd=523) EGFR (BEAKER) (test 11 mL/min/1.73 sq m ESTIMATED GFR IS NOT tavp=0293) ACCURATE CREATININE CLEARANCE IN PREDICTING GLOMERULAR FILTRATION RATE. ESTIMATED GFR IS NOT APPLICABLE FOR DIALYSIS PATIENTS. CBC W/PLT COUNT & AUTO [id number] 04:36:00 Test Item Value Reference Range Comments WHITE BLOOD CELL COUNT (BEAKER) (test fovt=028) 7.4 K/ L 3.5-10.5 RED BLOOD CELL COUNT (BEAKER) (test ewbh=067) 2.65 M/ L 4.63-6.08 HEMOGLOBIN (BEAKER) (test gcgk=837) 8.4 GM/DL 13.7-17.5 HEMATOCRIT (BEAKER) (test xomd=501) 25.8 % 40.1-51.0 MEAN CORPUSCULAR VOLUME (BEAKER) (test ncvd=601) 97.4 fL 79.0-92.2 MEAN CORPUSCULAR HEMOGLOBIN (BEAKER) (test 31.7 pg 25.7-32.2 lcnk=490) MEAN CORPUSCULAR HEMOGLOBIN CONC (BEAKER) (test 32.6 GM/DL 32.3-36.5 vtsw=388) RED CELL DISTRIBUTION WIDTH (BEAKER) (test 17.6 % 11.6-14.4 hgig=331) PLATELET COUNT (BEAKER) (test wevr=925) 155 K/CU MM 150-450 MEAN PLATELET VOLUME (BEAKER) (test kjqo=511) 11.1 fL 9.4-12.4 NUCLEATED RED BLOOD CELLS (BEAKER) (test 0 /100 WBC 0-0 dqjv=297) NEUTROPHILS RELATIVE PERCENT (BEAKER) (test 73 % mkuv=672) LYMPHOCYTES RELATIVE PERCENT (BEAKER) (test 9 % yagj=681) MONOCYTES RELATIVE PERCENT (BEAKER) (test 14 % addb=816) EOSINOPHILS RELATIVE PERCENT (BEAKER) (test 3 % ovyy=435) BASOPHILS RELATIVE PERCENT (BEAKER) (test 1 % yuaw=376) NEUTROPHILS ABSOLUTE COUNT (BEAKER) (test 5.42 K/ L 1.78-5.38 nzha=054) LYMPHOCYTES ABSOLUTE COUNT (BEAKER) (test 0.65 K/ L 1.32-3.57 xckw=809) MONOCYTES ABSOLUTE COUNT (BEAKER) (test 1.00 K/ L 0.30-0.82 lsbe=149) EOSINOPHILS ABSOLUTE COUNT (BEAKER) (test 0.22 K/ L 0.04-0.54 njqe=730) BASOPHILS ABSOLUTE COUNT (BEAKER) (test 0.05 K/ L 0.01-0.08 qgsn=356) IMMATURE GRANULOCYTES-RELATIVE PERCENT (BEAKER) 1 % 0-1 (test xaoz=0011) [id number] 04:33:00 Test Item Value Reference Range Comments PHOSPHORUS (BEAKER) (test odhs=102) 3.7 mg/dL 2.3-4.7 [id number] 04:33:00 Test Item Value Reference Range Comments MAGNESIUM (BEAKER) (test ltdt=952) 2.2 mg/dL 1.6-2.6 VANCOMYCIN LEVEL, [id number] 04:33:00 Test Item Value Reference Range Comments VANCOMYCIN RANDOM (BEAKER) (test wkxi=242) 9.2 ug/mL Reference Range: No NormalsPT/[id number] 04:23:00 Test Item Value Reference Range Comments PROTIME (BEAKER) (test eljl=691) 17.1 seconds 11.9-14.2 INR (BEAKER) (test haow=422) 1.5 <=5.9 PARTIAL THROMBOPLASTIN TIME (BEAKER) (test 50.1 seconds 22.5-36.0 osvc=595) Effective 07/29/2018: PT Reference Range ChangeNew: 11.9-14.2 Previous: 11.7- 14.7RECOMMENDED COUMADIN/WARFARIN INR THERAPY RANGESSTANDARD DOSE: 2.0-3.0 Includes: PROPHYLAXIS for venous thrombosis, systemic embolization; TREATMENT for venous thrombosis and/or pulmonary embolus.HIGH RISK: Target INR is2.5-3.5 for patients wiht mechanical heart valves.RAD, CHEST, 1 VIEW, NON [id number] 03:59:00Reason for exam:->effusion vs atelectasisShould this [...] Verified Date/Time: 08/20/2018 03:59: 43 Reading Location: [address] Reading Room [id number] 00:43:00 Test Item Value Reference Range Comments PARTIAL THROMBOPLASTIN TIME (BEAKER) (test 46.3 seconds 22.5-36.0 ktod=352) 4 hours after the start of continuous infusion and 4 hours after any rate changePOCT-GLUCOSE [id number] 00:10:00 Test Item Value Reference Range Comments POC-GLUCOSE METER (BEAKER) 169 mg/dL 70-110 TESTED AT [facility] [address] [facility] (test ocay=5634) [facility] [address] BLOOD CULTURE IDENTIFICATION [id number] 23:35:00 Test Item Value Reference Range Comments LISTERIA MONOCYTOGENES Not detected Not detected (test fwhy=2072403) STAPHYLOCOCCUS (test Detected Not detected ohke=6436669) STAPHYLOCOCCUS AUREUS Detected Not detected Methicillin-susceptible S. (test jgca=8330910) aureus (MSSA)First-line therapy: Cefazolin or Oxacillin (Oxacillin preferred if PEER SPECIALIST involvement) ID CONSULTATION REQUIREDStaphylococcus aureus DETECTEDMecA NOT DETECTED Reference Range: Not Detected STREPTOCOCCUS (test Not detected Not detected zmvd=[id number]) STREPTOCOCCUS AGALACTIAE Not detected Not detected (GROUP B) (test zdle=8093311) STREPTOCOCCUS PNEUMONIAE Not detected Not detected (test xcfv=2077463) STREPTOCOCCUS PYOGENES Not detected Not detected (GROUP A) (test sltk=6033988) ACINETOBACTER BAUMANNII Not detected Not detected (test ydth=0014822) HAEMOPHILUS INFLUENZAE Not detected Not detected (test adad=2765697) NEISSERIA MENINGITIDIS Not detected Not detected (test uhjj=7918609) ENTEROBACTERIACEAE (test Not detected Not detected tryr=4104155) ENTEROBACTER CLOACOE Not detected Not detected COMPLEX (test bhyn=6273909) KLEBSIELLA OXYTOCA (test Not detected Not detected mxuo=5133115) KLEBSIELLA PNEUMONIAE Not detected Not detected (test pekc=2551) PROTEUS (test Not detected Not detected uzja=1028550) SERRATIA MARCESCENS (test Not detected Not detected ccxt=7200593) MITA ALBICANS (test Not detected Not detected suar=2914888) MITA GLABRATA (test Not detected Not detected ziox=0495703) MITA KRUSEI (test Not detected Not detected xwjl=8597584) MITA PARAPSILOSIS (test Not detected Not detected xixi=7254655) MITA TROPICALIS (test Not detected Not detected hpbk=8503162) ESCHERICHIA COLI (test Not detected Not detected cjlm=5502117) METHICILLIN-RESISTANCE Not detected Not detected GENE (test htxj=1676304) VANCOMYCIN-RESISTANCE GENE Not detected (test jjsr=7043480) CARBAPENEM-RESISTANCE GENE Not detected (test nfhk=8219092) ENTEROCOCCUS-BEAKER (test Not detected Not detected enyp=1951932) PSEUDOMONAS Not detected Not detected AERUGINOSA-BEAKER (test knvq=0787167) Other bacteria and resistance markers not targeted by this PCR panel cannot be excluded; therefore clinical correlation and follow up of serology, culture results, and other molecular studies is required. The results are not intended to be used as the sole means for clinical diagnosis or patient management decisions. This sample was tested at the [facility] Molecular Diagnostics Laboratory using the [employer] Blood Culture ID Panel. It is FDA cleared and has been verified and approved by the [facility] Molecular Diagnostics [facility] for clinical use. This laboratory is CLIA-certified and College ofAmerican Pathologists (CAP)-accredited to perform high complexity testing.[id number] 21:01:00 Test Item Value Reference Range Comments PARTIAL THROMBOPLASTIN TIME (AKER) (test 43.2 seconds 22.5-36.0 kwxs=685) 4 hours after the start of continuous infusion and 4 hours after any rate changePOCT-GLUCOSE [id number] 17:58:00 Test Item Value Reference Range Comments POC-GLUCOSE METER ([facility]) 127 mg/dL 70-110 TESTED AT [facility] [address] (test rnju=3232) [facility] [address] [id number] 15:30:00 Test Item Value Reference Range Comments PARTIAL THROMBOPLASTIN TIME (BEAKER) (test 33.1 seconds 22.5-36.0 fxvx=589) Draw baseline aPTT prior to infusionCBC (HEMOGRAM ONLY)2018-08-19 15:22:00 Test Item Value Reference Range Comments WHITE BLOOD CELL COUNT (BEAKER) (test fgmu=987) 6.9 K/ L 3.5-10.5 RED BLOOD CELL COUNT (BEAKER) (test dhvo=674) 2.87 M/ L 4.63-6.08 HEMOGLOBIN (BEAKER) (test vkrj=629) 9.0 GM/DL 13.7-17.5 HEMATOCRIT (BEAKER) (test xbbw=236) 27.1 % 40.1-51.0 MEAN CORPUSCULAR VOLUME (BEAKER) (test ngby=580) 94.4 fL 79.0-92.2 MEAN CORPUSCULAR HEMOGLOBIN (BEAKER) (test 31.4 pg 25.7-32.2 drrs=347) MEAN CORPUSCULAR HEMOGLOBIN CONC (BEAKER) (test 33.2 GM/DL 32.3-36.5 wwdb=669) RED CELL DISTRIBUTION WIDTH (BEAKER) (test 17.2 % 11.6-14.4 nfao=246) PLATELET COUNT (BEAKER) (test eyou=687) 145 K/CU MM 150-450 MEAN PLATELET VOLUME (BEAKER) (test pixe=953) 10.2 fL 9.4-12.4 NUCLEATED RED BLOOD CELLS (BEAKER) (test 0 /100 WBC 0-0 rujl=820) ANG, TUNNELED CATHETER [id number] 14:44:00Reason for exam:->ESRD requiring dialysis and malfuctioning [...] Mona Wick Verified Date/Time: 14:44:44 Reading Location: [place] [address] Angio Body Reading Room POCT-GLUCOSE [id number] 11:54:00 Test Item Value Reference Range Comments POC-GLUCOSE METER (BEAKER) 165 mg/dL 70-110 TESTED AT [address] (test jhop=7334) [facility] [address] RAD, CHEST, 1 VIEW, NON [id number] 08:21:00Reason for exam:->effusion vs atelectasisShould this be performed at the bedside?->YesFINAL REPORT Comparison: 08/18/2018 TECHNIQUE: Single view of the chest FINDINGS: There is mild vascular congestion. There may be trace pleural effusions. No gross new lung parenchymal changes. Cardiac silhouette is enlarged. A stent projects over the left upper chest. Signed: Franklin Juan Verified Date/Time: 08/19/2018 08:21:06 Reading Location: [facility] Radiology ReadingRoom Electronically signed by: FRANKLIN JUAN M.D. on 08/19 08:21 AMPOCT-GLUCOSE [id number] 06:30:00 Test Item Value Reference Range Comments POC-GLUCOSE METER (BEAKER) 162 mg/dL 70-110 TESTED AT [facility] [address] [facility] (test tcai=2426) [facility] [address] POCT-GLUCOSE [id number] 05:50:00 Test Item Value Reference Range Comments POC-GLUCOSE METER (BEAKER) 157 mg/dL 70-110 TESTED AT [facility] [address] [facility] (test thhp=7624) [facility] [address] COMPREHENSIVE METABOLIC [id number] 05:23:00 Test Item Value Reference Range Comments TOTAL PROTEIN (BEAKER) 5.4 gm/dL 6.0-8.3 (test wuid=359) ALBUMIN (BEAKER) (test 2.8 g/dL 3.5-5.0 yate=6507) ALKALINE PHOSPHATASE 172 U/L 40-150 (BEAKER) (test yakv=574) BILIRUBIN TOTAL (BEAKER) 1.1 mg/dL 0.2-1.2 (test ltgn=502) SODIUM (BEAKER) (test 129 meq/L 136-145 qddq=823) POTASSIUM (BEAKER) (test 4.7 meq/L 3.5-5.1 pmuk=647) CHLORIDE (BEAKER) (test 96 meq/L 98-107 uzmo=126) CO2 (BEAKER) (test 24 meq/L 22-29 ydog=488) BLOOD UREA NITROGEN 67 mg/dL 7-21 (BEAKER) (test qzqw=074) CREATININE (BEAKER) (test 8.22 mg/dL 0.57-1.25 biov=127) GLUCOSE RANDOM (BEAKER) 156 mg/dL 70-105 (test pvon=673) CALCIUM (BEAKER) (test 8.5 mg/dL 8.4-10.2 noty=570) AST (SGOT) (BEAKER) (test 29 U/L 5-34 bmvr=431) ALT (SGPT) (BEAKER) (test 36 U/L 6-55 naqr=356) EGFR (BEAKER) (test 6 mL/min/1.73 sq m ESTIMATED GFR IS NOT tnbj=7463) ACCURATE CREATININE CLEARANCE IN PREDICTING GLOMERULAR FILTRATION RATE. ESTIMATED GFR IS NOT APPLICABLE FOR DIALYSIS PATIENTS. [id number] 05:22:00 Test Item Value Reference Range Comments PHOSPHORUS (BEAKER) (test olam=737) 4.7 mg/dL 2.3-4.7 [id number] 05:22:00 Test Item Value Reference Range Comments MAGNESIUM (BEAKER) (test bfod=476) 2.4 mg/dL 1.6-2.6 [id number] 05:19:00 Test Item Value Reference Range Comments PROTIME (BEAKER) (test ndbn=050) 15.3 seconds 11.9-14.2 INR (BEAKER) (test wmsw=058) 1.3 <=5.9 PARTIAL THROMBOPLASTIN TIME (BEAKER) (test 34.9 seconds 22.5-36.0 dhmo=932) Effective 07/29/2018: PT Reference Range ChangeNew: 11.9-14.2 Previous: 11.7- 14.7RECOMMENDED COUMADIN/WARFARIN INR THERAPY RANGESSTANDARD DOSE: 2.0-3.0 Includes: PROPHYLAXIS for venous thrombosis, systemic embolization; TREATMENT for venous thrombosis and/or pulmonary embolus.HIGH RISK: Target INR is2.5-3.5 for patients wiht mechanical heart valves.[id number] 05:02:00 Test Item Value Reference Range Comments AMMONIA (BEAKER) (test ugfr=555) 35 mol/L 18-72 CBC W/PLT COUNT & AUTO [id number] 04:55:00 Test Item Value Reference Range Comments WHITE BLOOD CELL COUNT (BEAKER) (test yiwn=067) 7.9 K/ L 3.5-10.5 RED BLOOD CELL COUNT (BEAKER) (test hczv=868) 2.84 M/ L 4.63-6.08 HEMOGLOBIN (BEAKER) (test jzrg=305) 8.9 GM/DL 13.7-17.5 HEMATOCRIT (BEAKER) (test ppjh=352) 27.6 % 40.1-51.0 MEAN CORPUSCULAR VOLUME (BEAKER) (test hhuv=376) 97.2 fL 79.0-92.2 MEAN CORPUSCULAR HEMOGLOBIN (BEAKER) (test 31.3 pg 25.7-32.2 vnbe=593) MEAN CORPUSCULAR HEMOGLOBIN CONC (BEAKER) (test 32.2 GM/DL 32.3-36.5 iwxn=598) RED CELL DISTRIBUTION WIDTH (BEAKER) (test 17.6 % 11.6-14.4 xcpg=892) PLATELET COUNT (BEAKER) (test lcly=081) 169 K/CU MM 150-450 MEAN PLATELET VOLUME (BEAKER) (test euuj=521) 11.0 fL 9.4-12.4 NUCLEATED RED BLOOD CELLS (BEAKER) (test 0 /100 WBC 0-0 cdub=388) NEUTROPHILS RELATIVE PERCENT (BEAKER) (test 70 % dwxg=968) LYMPHOCYTES RELATIVE PERCENT (BEAKER) (test 10 % pgsg=943) MONOCYTES RELATIVE PERCENT (BEAKER) (test 13 % wrno=199) EOSINOPHILS RELATIVE PERCENT (BEAKER) (test 5 % qhkc=568) BASOPHILS RELATIVE PERCENT (BEAKER) (test 1 % ajey=081) NEUTROPHILS ABSOLUTE COUNT (BEAKER) (test 5.50 K/ L 1.78-5.38 asqh=510) LYMPHOCYTES ABSOLUTE COUNT (BEAKER) (test 0.82 K/ L 1.32-3.57 czae=709) MONOCYTES ABSOLUTE COUNT (BEAKER) (test 1.06 K/ L 0.30-0.82 xmca=400) EOSINOPHILS ABSOLUTE COUNT (BEAKER) (test 0.36 K/ L 0.04-0.54 krif=403) BASOPHILS ABSOLUTE COUNT (BEAKER) (test 0.08 K/ L 0.01-0.08 luff=531) IMMATURE GRANULOCYTES-RELATIVE PERCENT (BEAKER) 1 % 0-1 (test vslg=9170) POCT-GLUCOSE [id number] 21:46:00 Test Item Value Reference Range Comments POC-GLUCOSE METER (BEAKER) 167 mg/dL 70-110 TESTED AT [address] (test xqyz=8084) [facility] [address] BASIC METABOLIC [id number] 19:16:00 Test Item Value Reference Range Comments SODIUM (BEAKER) (test 132 meq/L 136-145 jwhx=898) POTASSIUM (BEAKER) (test 4.7 meq/L 3.5-5.1 ssps=692) CHLORIDE (BEAKER) (test 97 meq/L 98-107 yvtw=072) CO2 (BEAKER) (test 24 meq/L 22-29 aixt=674) BLOOD UREA NITROGEN 61 mg/dL 7-21 (BEAKER) (test stkh=155) CREATININE (BEAKER) (test 7.73 mg/dL 0.57-1.25 fvcw=821) GLUCOSE RANDOM (BEAKER) 144 mg/dL 70-105 (test atla=560) CALCIUM (BEAKER) (test 9.2 mg/dL 8.4-10.2 aggy=039) EGFR (BEAKER) (test 7 mL/min/1.73 sq m ESTIMATED GFR IS NOT arzg=1076) ACCURATE CREATININE CLEARANCE IN PREDICTING GLOMERULAR FILTRATION RATE. ESTIMATED GFR IS NOT APPLICABLE FOR DIALYSIS PATIENTS. POCT-GLUCOSE [id number] 16:57:00 Test Item Value Reference Range Comments POC-GLUCOSE METER (BEAKER) 118 mg/dL 70-110 TESTED AT [facility] [address] (test ctrp=4122) [place] [address] RAD, CHEST, 1 VIEW, NON [id number] 16:42:00Post-intubationReason for exam:-& gt;SOBShould this be performed [...] Nick Verified Date/Time: 08/18/2018 16:42:09 Reading Location: [address] Radiology Reading Room HEMOGLOBIN [id number] 13:45:00 Test Item Value Reference Range Comments HEMOGLOBIN A1C (BEAKER) (test wtqe=134) 5.5 % 4.3-6.1 COMPREHENSIVE METABOLIC [id number] 13:03:00 Test Item Value Reference Range Comments TOTAL PROTEIN (BEAKER) 6.9 gm/dL 6.0-8.3 Specimen moderately (test xicn=550) hemolyzed ALBUMIN (BEAKER) (test 3.2 g/dL 3.5-5.0 Specimen moderately jrww=8141) hemolyzed ALKALINE PHOSPHATASE 149 U/L 40-150 (BEAKER) (test jhyr=799) BILIRUBIN TOTAL (BEAKER) 1.2 mg/dL 0.2-1.2 Specimen moderately (test tqjp=349) hemolyzed SODIUM (BEAKER) (test 130 meq/L 136-145 aiwe=278) POTASSIUM (BEAKER) (test 5.0 meq/L 3.5-5.1 Specimen moderately cjqh=650) hemolyzed CHLORIDE (BEAKER) (test 96 meq/L 98-107 eokx=907) CO2 (BEAKER) (test 25 meq/L 22-29 njug=386) BLOOD UREA NITROGEN 57 mg/dL 7-21 (BEAKER) (test zvuy=702) CREATININE (BEAKER) (test 7.51 mg/dL 0.57-1.25 Specimen moderately hqyx=274) hemolyzed GLUCOSE RANDOM (BEAKER) 91 mg/dL 70-105 (test getp=517) CALCIUM (BEAKER) (test 9.2 mg/dL 8.4-10.2 svsi=171) AST (SGOT) (BEAKER) (test 46 U/L 5-34 Specimen moderately gndv=241) hemolyzed ALT (SGPT) (BEAKER) (test 46 U/L 6-55 Specimen moderately iefu=909) hemolyzed EGFR (BEAKER) (test 7 mL/min/1.73 sq m ESTIMATED GFR IS NOT dbzb=8381) ACCURATE CREATININE CLEARANCE IN PREDICTING GLOMERULAR FILTRATION RATE. ESTIMATED GFR IS NOT APPLICABLE FOR DIALYSIS PATIENTS. [id number] 12:59:00 Test Item Value Reference Range Comments MAGNESIUM (BEAKER) (test 2.8 mg/dL 1.6-2.6 Specimen moderately hemolyzed qgtl=848) [id number] 12:59:00 Test Item Value Reference Range Comments PHOSPHORUS (BEAKER) (test 4.2 mg/dL 2.3-4.7 Specimen moderately hemolyzed hjas=840) PT/[id number] 12:42:00 Test Item Value Reference Range Comments PROTIME (BEAKER) (test wgtn=335) 19.1 seconds 11.9-14.2 INR (BEAKER) (test jyia=787) 1.7 <=5.9 PARTIAL THROMBOPLASTIN TIME (BEAKER) (test 36.7 seconds 22.5-36.0 zfht=793) Effective 07/29/2018: PT Reference Range ChangeNew: 11.9-14.2 Previous: 11.7- 14.7RECOMMENDED COUMADIN/WARFARIN INR THERAPY RANGESSTANDARD DOSE: 2.0-3.0 Includes: PROPHYLAXIS for venous thrombosis, systemic embolization; TREATMENT for venous thrombosis and/or pulmonary embolus.HIGH RISK: Target INR is2.5-3.5 for patients wiht mechanical heart valves.PROTHROMBIN [id number] 12:41: 00 Test Item Value Reference Range Comments PROTIME (BEAKER) (test wejz=815) 19.1 seconds 11.9-14.2 INR (BEAKER) (test caft=247) 1.7 <=5.9 Effective 07/29/2018: PT Reference Range ChangeNew: 11.9-14.2 Previous: 11.7- 14.7RECOMMENDED COUMADIN/WARFARIN INR THERAPY RANGESSTANDARD DOSE: 2.0-3.0 Includes: PROPHYLAXIS for venous thrombosis, systemic embolization; TREATMENT for venous thrombosis and/or pulmonary embolus.HIGH RISK: Target INR is2.5-3.5 for patients wiht mechanical heart valves.CBC W/PLT COUNT & AUTO [id number] 12:24:00 Test Item Value Reference Range Comments WHITE BLOOD CELL COUNT (BEAKER) (test fnlh=311) 9.1 K/ L 3.5-10.5 RED BLOOD CELL COUNT (BEAKER) (test pmgf=948) 3.40 M/ L 4.63-6.08 HEMOGLOBIN (BEAKER) (test gqpg=405) 10.6 GM/DL 13.7-17.5 HEMATOCRIT (BEAKER) (test irau=615) 33.5 % 40.1-51.0 MEAN CORPUSCULAR VOLUME (BEAKER) (test nram=373) 98.5 fL 79.0-92.2 MEAN CORPUSCULAR HEMOGLOBIN (BEAKER) (test 31.2 pg 25.7-32.2 esss=198) MEAN CORPUSCULAR HEMOGLOBIN CONC (BEAKER) (test 31.6 GM/DL 32.3-36.5 wqgg=605) RED CELL DISTRIBUTION WIDTH (BEAKER) (test 17.4 % 11.6-14.4 smez=075) PLATELET COUNT (BEAKER) (test khod=095) 200 K/CU MM 150-450 MEAN PLATELET VOLUME (BEAKER) (test kbsp=417) 11.0 fL 9.4-12.4 NUCLEATED RED BLOOD CELLS (BEAKER) (test 0 /100 WBC 0-0 dawi=805) NEUTROPHILS RELATIVE PERCENT (BEAKER) (test 76 % emcf=213) LYMPHOCYTES RELATIVE PERCENT (BEAKER) (test 9 % xvsg=098) MONOCYTES RELATIVE PERCENT (BEAKER) (test 10 % vsvv=868) EOSINOPHILS RELATIVE PERCENT (BEAKER) (test 4 % ppcl=419) BASOPHILS RELATIVE PERCENT (BEAKER) (test 1 % ixey=254) NEUTROPHILS ABSOLUTE COUNT (BEAKER) (test 6.95 K/ L 1.78-5.38 fwqs=498) LYMPHOCYTES ABSOLUTE COUNT (BEAKER) (test 0.79 K/ L 1.32-3.57 gshz=173) MONOCYTES ABSOLUTE COUNT (BEAKER) (test 0.88 K/ L 0.30-0.82 kyju=521) EOSINOPHILS ABSOLUTE COUNT (BEAKER) (test 0.36 K/ L 0.04-0.54 rlrc=475) BASOPHILS ABSOLUTE COUNT (BEAKER) (test 0.07 K/ L 0.01-0.08 wxgx=456) IMMATURE GRANULOCYTES-RELATIVE PERCENT (BEAKER) 1 % 0-1 (test bwnc=6373) POCT-GLUCOSE [id number] 12:56:00 Test Item Value Reference Range Comments POC-GLUCOSE METER (BEAKER) 131 mg/dL 70-110 TESTED AT [address] (test effz=1241) [place] [id number] POCT-GLUCOSE [id number] 07:42:00 Test Item Value Reference Range Comments POC-GLUCOSE METER (BEAKER) 132 mg/dL 70-110 TESTED AT [address] (test fprh=3758) [place] [id number] BASIC METABOLIC [id number] 06:40:00 Test Item Value Reference Range Comments SODIUM (BEAKER) (test 137 meq/L 136-145 wgkf=834) POTASSIUM (BEAKER) (test 4.4 meq/L 3.5-5.1 pvcm=185) CHLORIDE (BEAKER) (test 99 meq/L 98-107 nann=193) CO2 (BEAKER) (test 29 meq/L 22-29 cvvf=204) BLOOD UREA NITROGEN 31 mg/dL 7-21 (BEAKER) (test kobk=264) CREATININE (BEAKER) (test 5.05 mg/dL 0.57-1.25 lkgn=786) GLUCOSE RANDOM (BEAKER) 146 mg/dL 70-105 (test rqqj=438) CALCIUM (BEAKER) (test 9.0 mg/dL 8.4-10.2 iktc=536) EGFR (BEAKER) (test 11 mL/min/1.73 sq m ESTIMATED GFR IS NOT gzti=8381) ACCURATE CREATININE CLEARANCE IN PREDICTING GLOMERULAR FILTRATION RATE. ESTIMATED GFR IS NOT APPLICABLE FOR DIALYSIS PATIENTS. [id number] 06:39:00 Test Item Value Reference Range Comments PHOSPHORUS (BEAKER) (test gqfs=234) 3.7 mg/dL 2.3-4.7 [id number] 06:39:00 Test Item Value Reference Range Comments MAGNESIUM (BEAKER) (test aznm=482) 2.6 mg/dL 1.6-2.6 CBC W/PLT COUNT & AUTO [id number] 06:38:00 Test Item Value Reference Range Comments WHITE BLOOD CELL COUNT (BEAKER) (test zeft=655) 9.4 K/ L 3.5-10.5 RED BLOOD CELL COUNT (BEAKER) (test ihgg=808) 3.25 M/ L 4.63-6.08 HEMOGLOBIN (BEAKER) (test bafd=387) 10.2 GM/DL 13.7-17.5 HEMATOCRIT (BEAKER) (test kbbp=170) 33.0 % 40.1-51.0 MEAN CORPUSCULAR VOLUME (BEAKER) (test lsng=201) 101.5 fL 79.0-92.2 MEAN CORPUSCULAR HEMOGLOBIN (BEAKER) (test 31.4 pg 25.7-32.2 adpr=964) MEAN CORPUSCULAR HEMOGLOBIN CONC (BEAKER) (test 30.9 GM/DL 32.3-36.5 vpjb=322) RED CELL DISTRIBUTION WIDTH (BEAKER) (test 18.5 % 11.6-14.4 pufh=727) PLATELET COUNT (BEAKER) (test wbyv=456) 202 K/CU MM 150-450 MEAN PLATELET VOLUME (BEAKER) (test qsjj=820) 10.8 fL 9.4-12.4 NUCLEATED RED BLOOD CELLS (BEAKER) (test 0 /100 WBC 0-0 euyv=863) NEUTROPHILS RELATIVE PERCENT (BEAKER) (test 81 % tcpa=429) LYMPHOCYTES RELATIVE PERCENT (BEAKER) (test 7 % mkdo=260) MONOCYTES RELATIVE PERCENT (BEAKER) (test 8 % paxk=198) EOSINOPHILS RELATIVE PERCENT (BEAKER) (test 2 % qzxq=756) BASOPHILS RELATIVE PERCENT (BEAKER) (test 1 % jhbc=730) NEUTROPHILS ABSOLUTE COUNT (BEAKER) (test 7.63 K/ L 1.78-5.38 mknc=368) LYMPHOCYTES ABSOLUTE COUNT (BEAKER) (test 0.70 K/ L 1.32-3.57 buub=247) MONOCYTES ABSOLUTE COUNT (BEAKER) (test 0.78 K/ L 0.30-0.82 xbxn=478) EOSINOPHILS ABSOLUTE COUNT (BEAKER) (test 0.18 K/ L 0.04-0.54 fuqc=710) BASOPHILS ABSOLUTE COUNT (BEAKER) (test 0.06 K/ L 0.01-0.08 qtjd=202) IMMATURE GRANULOCYTES-RELATIVE PERCENT (BEAKER) 1 % 0-1 (test zyut=7038) PROTHROMBIN [id number] 06:25:00 Test Item Value Reference Range Comments PROTIME (BEAKER) (test awpu=480) 18.4 seconds 11.9-14.2 INR (BEAKER) (test liuh=894) 1.6 <=5.9 Effective 07/29/2018: PT Reference Range ChangeNew: 11.9-14.2 Previous: 11.7- 14.7RECOMMENDED COUMADIN/WARFARIN INR THERAPY RANGESSTANDARD DOSE: 2.0-3.0 Includes: PROPHYLAXIS for venous thrombosis, systemic embolization; TREATMENT for venous thrombosis and/or pulmonary embolus.HIGH RISK: Target INR is2.5-3.5 for patients wiht mechanical heart valves.While on warfarin.POCT-GLUCOSE [id number] 21:17:00 Test Item Value Reference Range Comments POC-GLUCOSE METER (BEAKER) 143 mg/dL 70-110 TESTED AT [address] (test scoc=3151) [facility] [address] POCT-GLUCOSE [id number] 18:22:00 Test Item Value Reference Range Comments POC-GLUCOSE METER (BEAKER) 67 mg/dL 70-110 TESTED AT [address] (test jnis=1359) [facility] [address] POCT-GLUCOSE [id number] 12:29:00 Test Item Value Reference Range Comments POC-GLUCOSE METER (BEAKER) 154 mg/dL 70-110 TESTED AT [address] (test sofm=3812) [facility] [address] POCT-GLUCOSE [id number] 07:50:00 Test Item Value Reference Range Comments POC-GLUCOSE METER (BEAKER) 107 mg/dL 70-110 TESTED AT [address] (test sqhw=7198) [facility] [address] BASIC METABOLIC [id number] 07:03:00 Test Item Value Reference Range Comments SODIUM (BEAKER) (test 130 meq/L 136-145 kmhd=507) POTASSIUM (BEAKER) (test 4.5 meq/L 3.5-5.1 nlnx=722) CHLORIDE (BEAKER) (test 95 meq/L 98-107 ooqu=416) CO2 (BEAKER) (test 25 meq/L 22-29 idyq=498) BLOOD UREA NITROGEN 45 mg/dL 7-21 (BEAKER) (test rzyy=410) CREATININE (BEAKER) (test 6.26 mg/dL 0.57-1.25 vyap=178) GLUCOSE RANDOM (BEAKER) 100 mg/dL 70-105 (test cegb=805) CALCIUM (BEAKER) (test 9.2 mg/dL 8.4-10.2 hmwv=405) EGFR (BEAKER) (test 9 mL/min/1.73 sq m ESTIMATED GFR IS NOT qijr=9798) ACCURATE CREATININE CLEARANCE IN PREDICTING GLOMERULAR FILTRATION RATE. ESTIMATED GFR IS NOT APPLICABLE FOR DIALYSIS PATIENTS. [id number] 07:01:00 Test Item Value Reference Range Comments PHOSPHORUS (BEAKER) (test abit=099) 4.4 mg/dL 2.3-4.7 [id number] 07:01:00 Test Item Value Reference Range Comments MAGNESIUM (BEAKER) (test tbtv=274) 2.8 mg/dL 1.6-2.6 [id number] 06:43:00 Test Item Value Reference Range Comments PARTIAL THROMBOPLASTIN TIME (BEAKER) (test 89.2 seconds 22.5-36.0 lhgn=730) 4 hours after the start of continuous infusion and 4 hours after any rate changeWhile on warfarin.PROTHROMBIN [id number] 06:41:00 Test Item Value Reference Range Comments PROTIME (BEAKER) (test ibzd=037) 21.2 seconds 11.9-14.2 INR (BEAKER) (test zdzb=367) 2.0 <=5.9 Effective 07/29/2018: PT Reference Range ChangeNew: 11.9-14.2 Previous: 11.7- 14.7RECOMMENDED COUMADIN/WARFARIN INR THERAPY RANGESSTANDARD DOSE: 2.0-3.0 Includes: PROPHYLAXIS for venous thrombosis, systemic embolization; TREATMENT for venous thrombosis and/or pulmonary embolus.HIGH RISK: Target INR is2.5-3.5 for patients wiht mechanical heart valves.4 hours after the start of continuous infusion and4 hours after any rate changeWhile on warfarin.CBC W/PLT COUNT &amp ; AUTO [id number] 06:38:00 Test Item Value Reference Range Comments WHITE BLOOD CELL COUNT (BEAKER) (test dbul=638) 10.7 K/ L 3.5-10.5 RED BLOOD CELL COUNT (BEAKER) (test ehfs=783) 3.21 M/ L 4.63-6.08 HEMOGLOBIN (BEAKER) (test nnzd=144) 10.1 GM/DL 13.7-17.5 HEMATOCRIT (BEAKER) (test ipps=400) 31.9 % 40.1-51.0 MEAN CORPUSCULAR VOLUME (BEAKER) (test hfva=003) 99.4 fL 79.0-92.2 MEAN CORPUSCULAR HEMOGLOBIN (BEAKER) (test 31.5 pg 25.7-32.2 rufy=684) MEAN CORPUSCULAR HEMOGLOBIN CONC (BEAKER) (test 31.7 GM/DL 32.3-36.5 sazb=140) RED CELL DISTRIBUTION WIDTH (BEAKER) (test 18.2 % 11.6-14.4 iwgi=806) PLATELET COUNT (BEAKER) (test xmov=851) 205 K/CU MM 150-450 MEAN PLATELET VOLUME (BEAKER) (test ehyl=727) 11.0 fL 9.4-12.4 NUCLEATED RED BLOOD CELLS (BEAKER) (test 0 /100 WBC 0-0 unhy=003) NEUTROPHILS RELATIVE PERCENT (BEAKER) (test 81 % ztlr=848) LYMPHOCYTES RELATIVE PERCENT (BEAKER) (test 8 % yoxg=390) MONOCYTES RELATIVE PERCENT (BEAKER) (test 8 % tcze=104) EOSINOPHILS RELATIVE PERCENT (BEAKER) (test 2 % owxi=557) BASOPHILS RELATIVE PERCENT (BEAKER) (test 1 % sqff=038) NEUTROPHILS ABSOLUTE COUNT (BEAKER) (test 8.71 K/ L 1.78-5.38 fjsz=151) LYMPHOCYTES ABSOLUTE COUNT (BEAKER) (test 0.83 K/ L 1.32-3.57 arxz=328) MONOCYTES ABSOLUTE COUNT (BEAKER) (test 0.84 K/ L 0.30-0.82 jrlw=482) EOSINOPHILS ABSOLUTE COUNT (BEAKER) (test 0.20 K/ L 0.04-0.54 qssz=764) BASOPHILS ABSOLUTE COUNT (BEAKER) (test 0.05 K/ L 0.01-0.08 bvjd=264) IMMATURE GRANULOCYTES-RELATIVE PERCENT (BEAKER) 1 % 0-1 (test gtah=7961) POCT-GLUCOSE [id number] 21:28:00 Test Item Value Reference Range Comments POC-GLUCOSE METER (BEAKER) 176 mg/dL 70-110 TESTED AT [address] (test lptw=6136) [place] [address] POCT-GLUCOSE [id number] 17:49:00 Test Item Value Reference Range Comments POC-GLUCOSE METER (BEAKER) 131 mg/dL 70-110 TESTED AT [address] (test mqbf=5066) [place] [address] POCT-GLUCOSE [id number] 12:14:00 Test Item Value Reference Range Comments POC-GLUCOSE METER (BEAKER) 189 mg/dL 70-110 TESTED AT [address] (test lvxs=0913) [place] [address] [id number] 09:14:00 Test Item Value Reference Range Comments PHOSPHORUS (BEAKER) (test fplp=780) 3.7 mg/dL 2.3-4.7 [id number] 09:14:00 Test Item Value Reference Range Comments MAGNESIUM (BEAKER) (test gxle=314) 2.7 mg/dL 1.6-2.6 BASIC METABOLIC [id number] 09:14:00 Test Item Value Reference Range Comments SODIUM (BEAKER) (test 130 meq/L 136-145 ghfq=630) POTASSIUM (BEAKER) (test 3.9 meq/L 3.5-5.1 rxbk=134) CHLORIDE (BEAKER) (test 94 meq/L 98-107 toex=309) CO2 (BEAKER) (test 29 meq/L 22-29 vtma=200) BLOOD UREA NITROGEN 36 mg/dL 7-21 (BEAKER) (test hukq=841) CREATININE (BEAKER) (test 5.45 mg/dL 0.57-1.25 qriq=150) GLUCOSE RANDOM (BEAKER) 127 mg/dL 70-105 (test cgte=137) CALCIUM (BEAKER) (test 8.7 mg/dL 8.4-10.2 wpcw=513) EGFR (BEAKER) (test 10 mL/min/1.73 sq m ESTIMATED GFR IS NOT yhbi=9910) ACCURATE CREATININE CLEARANCE IN PREDICTING GLOMERULAR FILTRATION RATE. ESTIMATED GFR IS NOT APPLICABLE FOR DIALYSIS PATIENTS. Specimen slightly ictericPOCT-GLUCOSE [id number] 08:55:00 Test Item Value Reference Range Comments POC-GLUCOSE METER (BEAKER) 139 mg/dL 70-110 TESTED AT [facility] [address] [facility] (test tffv=4210) [facility] [address] CBC W/PLT COUNT & AUTO [id number] 06:21:00 Test Item Value Reference Range Comments WHITE BLOOD CELL COUNT (BEAKER) (test otob=388) 9.9 K/ L 3.5-10.5 RED BLOOD CELL COUNT (BEAKER) (test ejvs=635) 3.18 M/ L 4.63-6.08 HEMOGLOBIN (BEAKER) (test glzr=038) 10.0 GM/DL 13.7-17.5 HEMATOCRIT (BEAKER) (test rumw=793) 32.4 % 40.1-51.0 MEAN CORPUSCULAR VOLUME (BEAKER) (test fhxe=223) 101.9 fL 79.0-92.2 MEAN CORPUSCULAR HEMOGLOBIN (BEAKER) (test 31.4 pg 25.7-32.2 hztq=956) MEAN CORPUSCULAR HEMOGLOBIN CONC (BEAKER) (test 30.9 GM/DL 32.3-36.5 mvee=015) RED CELL DISTRIBUTION WIDTH (BEAKER) (test 18.6 % 11.6-14.4 lqkg=931) PLATELET COUNT (BEAKER) (test fupf=737) 199 K/CU MM 150-450 MEAN PLATELET VOLUME (BEAKER) (test glis=510) 10.3 fL 9.4-12.4 NUCLEATED RED BLOOD CELLS (BEAKER) (test 0 /100 WBC 0-0 txwm=471) NEUTROPHILS RELATIVE PERCENT (BEAKER) (test 83 % przx=256) LYMPHOCYTES RELATIVE PERCENT (BEAKER) (test 6 % dqoa=569) MONOCYTES RELATIVE PERCENT (BEAKER) (test 8 % trpt=270) EOSINOPHILS RELATIVE PERCENT (BEAKER) (test 2 % fsok=464) BASOPHILS RELATIVE PERCENT (BEAKER) (test 1 % rhoy=760) NEUTROPHILS ABSOLUTE COUNT (BEAKER) (test 8.20 K/ L 1.78-5.38 mzki=556) LYMPHOCYTES ABSOLUTE COUNT (BEAKER) (test 0.61 K/ L 1.32-3.57 srde=117) MONOCYTES ABSOLUTE COUNT (BEAKER) (test 0.79 K/ L 0.30-0.82 pupm=360) EOSINOPHILS ABSOLUTE COUNT (BEAKER) (test 0.18 K/ L 0.04-0.54 lfmg=414) BASOPHILS ABSOLUTE COUNT (BEAKER) (test 0.06 K/ L 0.01-0.08 jhvc=140) IMMATURE GRANULOCYTES-RELATIVE PERCENT (BEAKER) 1 % 0-1 (test batk=3861) PROTHROMBIN [id number] 06:14:00 Test Item Value Reference Range Comments PROTIME (BEAKER) (test etuc=514) 19.5 seconds 11.9-14.2 INR (BEAKER) (test sleo=909) 1.8 <=5.9 Effective 07/29/2018: PT Reference Range ChangeNew: 11.9-14.2 Previous: 11.7- 14.7RECOMMENDED COUMADIN/WARFARIN INR THERAPY RANGESSTANDARD DOSE: 2.0-3.0 Includes: PROPHYLAXIS for venous thrombosis, systemic embolization; TREATMENT for venous thrombosis and/or pulmonary embolus.HIGH RISK: Target INR is2.5-3.5 for patients wiht mechanical heart valves.While on warfarin.[id number] 06:14 :00 Test Item Value Reference Range Comments PARTIAL THROMBOPLASTIN TIME (BEAKER) (test 77.3 seconds 22.5-36.0 zrwk=408) POCT-GLUCOSE [id number] 21:26:00 Test Item Value Reference Range Comments POC-GLUCOSE METER (BEAKER) 147 mg/dL 70-110 TESTED AT [address] (test msye=2569) [place] [id number] POCT-GLUCOSE [id number] 17:59:00 Test Item Value Reference Range Comments POC-GLUCOSE METER (BEAKER) 114 mg/dL 70-110 TESTED AT [address] (test wxzu=5996) [place] [id number] POCT-GLUCOSE [id number] 14:16:00 Test Item Value Reference Range Comments POC-GLUCOSE METER (BEAKER) 141 mg/dL 70-110 TESTED AT [address] (test yrny=6324) [facility] [address] CBC W/PLT COUNT & AUTO [id number] 12:14:00 Test Item Value Reference Range Comments WHITE BLOOD CELL COUNT (BEAKER) (test xizu=520) 12.0 K/ L 3.5-10.5 RED BLOOD CELL COUNT (BEAKER) (test fjyc=108) 3.31 M/ L 4.63-6.08 HEMOGLOBIN (BEAKER) (test odom=767) 10.5 GM/DL 13.7-17.5 HEMATOCRIT (BEAKER) (test enqc=303) 32.9 % 40.1-51.0 MEAN CORPUSCULAR VOLUME (BEAKER) (test kwgv=432) 99.4 fL 79.0-92.2 MEAN CORPUSCULAR HEMOGLOBIN (BEAKER) (test 31.7 pg 25.7-32.2 vwiv=088) MEAN CORPUSCULAR HEMOGLOBIN CONC (BEAKER) (test 31.9 GM/DL 32.3-36.5 nqyq=021) RED CELL DISTRIBUTION WIDTH (BEAKER) (test 18.6 % 11.6-14.4 qbph=803) PLATELET COUNT (BEAKER) (test yojv=752) 247 K/CU MM 150-450 MEAN PLATELET VOLUME (BEAKER) (test oodk=698) 11.0 fL 9.4-12.4 NUCLEATED RED BLOOD CELLS (BEAKER) (test 0 /100 WBC 0-0 fdka=283) NEUTROPHILS RELATIVE PERCENT (BEAKER) (test 85 % ikua=003) LYMPHOCYTES RELATIVE PERCENT (BEAKER) (test 7 % leqs=260) MONOCYTES RELATIVE PERCENT (BEAKER) (test 6 % esoc=941) EOSINOPHILS RELATIVE PERCENT (BEAKER) (test 1 % hksn=134) BASOPHILS RELATIVE PERCENT (BEAKER) (test 0 % gtjt=771) NEUTROPHILS ABSOLUTE COUNT (BEAKER) (test 10.21 K/ L 1.78-5.38 nmsv=068) LYMPHOCYTES ABSOLUTE COUNT (BEAKER) (test 0.78 K/ L 1.32-3.57 wsic=799) MONOCYTES ABSOLUTE COUNT (BEAKER) (test 0.72 K/ L 0.30-0.82 ygnd=010) EOSINOPHILS ABSOLUTE COUNT (BEAKER) (test 0.16 K/ L 0.04-0.54 yzlt=086) BASOPHILS ABSOLUTE COUNT (BEAKER) (test 0.05 K/ L 0.01-0.08 mwzb=296) IMMATURE GRANULOCYTES-RELATIVE PERCENT (BEAKER) 1 % 0-1 (test lpkz=9278) POCT-GLUCOSE [id number] 11:22:00 Test Item Value Reference Range Comments POC-GLUCOSE METER (BEAKER) 137 mg/dL 70-110 TESTED AT [address] (test hnop=2080) [place] [id number] POCT-GLUCOSE [id number] 09:39:00 Test Item Value Reference Range Comments POC-GLUCOSE METER (BEAKER) 118 mg/dL 70-110 TESTED AT [address] (test gqoq=9315) [facility] [address] [id number] 07:36:00 Test Item Value Reference Range Comments PARTIAL THROMBOPLASTIN TIME (BEAKER) (test 67.9 seconds 22.5-36.0 tjoa=981) While on warfarin.COMPREHENSIVE METABOLIC [id number] 06:51:00 Test Item Value Reference Range Comments TOTAL PROTEIN (BEAKER) 6.1 gm/dL 6.0-8.3 (test xcsn=198) ALBUMIN (BEAKER) (test 3.1 g/dL 3.5-5.0 pcio=5485) ALKALINE PHOSPHATASE 131 U/L 40-150 (BEAKER) (test aumq=678) BILIRUBIN TOTAL (BEAKER) 2.7 mg/dL 0.2-1.2 (test mnxr=334) SODIUM (BEAKER) (test 132 meq/L 136-145 iznl=615) POTASSIUM (BEAKER) (test 4.9 meq/L 3.5-5.1 jzto=140) CHLORIDE (BEAKER) (test 95 meq/L 98-107 rmny=205) CO2 (BEAKER) (test 25 meq/L 22-29 nuyz=510) BLOOD UREA NITROGEN 59 mg/dL 7-21 (BEAKER) (test lhcb=127) CREATININE (BEAKER) (test 7.24 mg/dL 0.57-1.25 smtc=335) GLUCOSE RANDOM (BEAKER) 138 mg/dL 70-105 (test pppi=549) CALCIUM (BEAKER) (test 9.3 mg/dL 8.4-10.2 vmfy=708) AST (SGOT) (BEAKER) (test 38 U/L 5-34 jdjx=758) ALT (SGPT) (BEAKER) (test 86 U/L 6-55 zhrt=202) EGFR (BEAKER) (test 7 mL/min/1.73 sq m ESTIMATED GFR IS NOT zuyb=9467) ACCURATE CREATININE CLEARANCE IN PREDICTING GLOMERULAR FILTRATION RATE. ESTIMATED GFR IS NOT APPLICABLE FOR DIALYSIS PATIENTS. Specimen slightly [id number] 06:32:00 Test Item Value Reference Range Comments MAGNESIUM (BEAKER) (test biwt=521) 3.2 mg/dL 1.6-2.6 CBC W/PLT COUNT & AUTO [id number] 05:57:00 Test Item Value Reference Range Comments WHITE BLOOD CELL COUNT (BEAKER) (test fftm=368) 11.3 K/ L 3.5-10.5 RED BLOOD CELL COUNT (BEAKER) (test fsld=742) 3.34 M/ L 4.63-6.08 HEMOGLOBIN (BEAKER) (test lrre=471) 10.4 GM/DL 13.7-17.5 HEMATOCRIT (BEAKER) (test vwcl=702) 32.9 % 40.1-51.0 MEAN CORPUSCULAR VOLUME (BEAKER) (test zfkv=898) 98.5 fL 79.0-92.2 MEAN CORPUSCULAR HEMOGLOBIN (BEAKER) (test 31.1 pg 25.7-32.2 bexn=527) MEAN CORPUSCULAR HEMOGLOBIN CONC (BEAKER) (test 31.6 GM/DL 32.3-36.5 twqu=150) RED CELL DISTRIBUTION WIDTH (BEAKER) (test 18.6 % 11.6-14.4 wjts=417) PLATELET COUNT (BEAKER) (test brzw=673) 206 K/CU MM 150-450 MEAN PLATELET VOLUME (BEAKER) (test itaj=793) 10.8 fL 9.4-12.4 NUCLEATED RED BLOOD CELLS (BEAKER) (test 0 /100 WBC 0-0 rcio=080) NEUTROPHILS RELATIVE PERCENT (BEAKER) (test 85 % zdbz=728) LYMPHOCYTES RELATIVE PERCENT (BEAKER) (test 6 % pmdr=807) MONOCYTES RELATIVE PERCENT (BEAKER) (test 6 % dihj=836) EOSINOPHILS RELATIVE PERCENT (BEAKER) (test 2 % ppxg=051) BASOPHILS RELATIVE PERCENT (BEAKER) (test 1 % fiuu=765) NEUTROPHILS ABSOLUTE COUNT (BEAKER) (test 9.61 K/ L 1.78-5.38 hojn=615) LYMPHOCYTES ABSOLUTE COUNT (BEAKER) (test 0.63 K/ L 1.32-3.57 ksxc=803) MONOCYTES ABSOLUTE COUNT (BEAKER) (test 0.72 K/ L 0.30-0.82 wayh=302) EOSINOPHILS ABSOLUTE COUNT (BEAKER) (test 0.18 K/ L 0.04-0.54 bmpl=055) BASOPHILS ABSOLUTE COUNT (BEAKER) (test 0.06 K/ L 0.01-0.08 vlyg=378) IMMATURE GRANULOCYTES-RELATIVE PERCENT (BEAKER) 1 % 0-1 (test vzmj=7179) PROTHROMBIN [id number] 05:52:00 Test Item Value Reference Range Comments PROTIME (BEAKER) (test gtjx=890) 23.2 seconds 11.9-14.2 INR (BEAKER) (test rfig=725) 2.2 <=5.9 Effective 07/29/2018: PT Reference Range ChangeNew: 11.9-14.2 Previous: 11.7- 14.7RECOMMENDED COUMADIN/WARFARIN INR THERAPY RANGESSTANDARD DOSE: 2.0-3.0 Includes: PROPHYLAXIS for venous thrombosis, systemic embolization; TREATMENT for venous thrombosis and/or pulmonary embolus.HIGH RISK: Target INR is2.5-3.5 for patients wiht mechanical heart valves.While on warfarin.POCT-GLUCOSE [id number] 21:23:00 Test Item Value Reference Range Comments POC-GLUCOSE METER (BEAKER) 156 mg/dL 70-110 TESTED AT [address] (test wtsn=4898) [facility] [address] POCT-GLUCOSE [id number] 17:07:00 Test Item Value Reference Range Comments POC-GLUCOSE METER (BEAKER) 158 mg/dL 70-110 TESTED AT [address] (test dlpw=0298) [facility] [address] [id number] 13:25:00 Test Item Value Reference Range Comments PARTIAL THROMBOPLASTIN TIME (BEAKER) (test 89.3 seconds 22.5-36.0 gahr=598) POCT-GLUCOSE [id number] 12:20:00 Test Item Value Reference Range Comments POC-GLUCOSE METER (BEAKER) 167 mg/dL 70-110 TESTED AT [address] (test qfmp=1635) [facility] [address] POCT-GLUCOSE [id number] 07:42:00 Test Item Value Reference Range Comments POC-GLUCOSE METER (BEAKER) 132 mg/dL 70-110 TESTED AT [address] (test ibdh=8546) [facility] [address] COMPREHENSIVE METABOLIC [id number] 07:04:00 Test Item Value Reference Range Comments TOTAL PROTEIN (BEAKER) 6.6 gm/dL 6.0-8.3 (test qmim=599) ALBUMIN (BEAKER) (test 3.4 g/dL 3.5-5.0 pukr=1526) ALKALINE PHOSPHATASE 131 U/L 40-150 (BEAKER) (test iihx=842) BILIRUBIN TOTAL (BEAKER) 3.4 mg/dL 0.2-1.2 (test vdti=535) SODIUM (BEAKER) (test 131 meq/L 136-145 fhmt=534) POTASSIUM (BEAKER) (test 4.4 meq/L 3.5-5.1 flip=929) CHLORIDE (BEAKER) (test 95 meq/L 98-107 hcgt=681) CO2 (BEAKER) (test 23 meq/L 22-29 tlap=752) BLOOD UREA NITROGEN 47 mg/dL 7-21 (BEAKER) (test hzok=425) CREATININE (BEAKER) (test 6.18 mg/dL 0.57-1.25 ufqr=595) GLUCOSE RANDOM (BEAKER) 120 mg/dL 70-105 (test hitw=315) CALCIUM (BEAKER) (test 9.4 mg/dL 8.4-10.2 tiyb=886) AST (SGOT) (BEAKER) (test 40 U/L 5-34 uzfb=750) ALT (SGPT) (BEAKER) (test 101 U/L 6-55 dapc=601) EGFR (BEAKER) (test 9 mL/min/1.73 sq m ESTIMATED GFR IS NOT yoor=3332) ACCURATE CREATININE CLEARANCE IN PREDICTING GLOMERULAR FILTRATION RATE. ESTIMATED GFR IS NOT APPLICABLE FOR DIALYSIS PATIENTS. Specimen slightly [id number] 07:01:00 Test Item Value Reference Range Comments MAGNESIUM (BEAKER) (test jpuq=715) 2.8 mg/dL 1.6-2.6 PROTHROMBIN [id number] 06:40:00 Test Item Value Reference Range Comments PROTIME (BEAKER) (test fszi=723) 18.5 seconds 11.9-14.2 INR (BEAKER) (test zfrp=851) 1.6 <=5.9 Effective 07/29/2018: PT Reference Range ChangeNew: 11.9-14.2 Previous: 11.7- 14.7RECOMMENDED COUMADIN/WARFARIN INR THERAPY RANGESSTANDARD DOSE: 2.0-3.0 Includes: PROPHYLAXIS for venous thrombosis, systemic embolization; TREATMENT for venous thrombosis and/or pulmonary embolus.HIGH RISK: Target INR is2.5-3.5 for patients wiht mechanical heart valves.While on warfarin.CBC W/PLT COUNT &amp ; AUTO [id number] 06:36:00 Test Item Value Reference Range Comments WHITE BLOOD CELL COUNT (BEAKER) (test deew=996) 11.2 K/ L 3.5-10.5 RED BLOOD CELL COUNT (BEAKER) (test asbt=385) 3.72 M/ L 4.63-6.08 HEMOGLOBIN (BEAKER) (test rspg=741) 11.7 GM/DL 13.7-17.5 HEMATOCRIT (BEAKER) (test sihp=398) 38.3 % 40.1-51.0 MEAN CORPUSCULAR VOLUME (BEAKER) (test curl=339) 103.0 fL 79.0-92.2 MEAN CORPUSCULAR HEMOGLOBIN (BEAKER) (test 31.5 pg 25.7-32.2 lanu=155) MEAN CORPUSCULAR HEMOGLOBIN CONC (BEAKER) (test 30.5 GM/DL 32.3-36.5 dhxv=127) RED CELL DISTRIBUTION WIDTH (BEAKER) (test 19.1 % 11.6-14.4 ldsr=163) PLATELET COUNT (BEAKER) (test xexc=261) 205 K/CU MM 150-450 MEAN PLATELET VOLUME (BEAKER) (test velc=314) 11.3 fL 9.4-12.4 NUCLEATED RED BLOOD CELLS (BEAKER) (test 0 /100 WBC 0-0 qyzr=764) NEUTROPHILS RELATIVE PERCENT (BEAKER) (test 82 % zdna=671) LYMPHOCYTES RELATIVE PERCENT (BEAKER) (test 7 % dnjg=310) MONOCYTES RELATIVE PERCENT (BEAKER) (test 8 % xdvb=815) EOSINOPHILS RELATIVE PERCENT (BEAKER) (test 1 % wgex=905) BASOPHILS RELATIVE PERCENT (BEAKER) (test 1 % kyvw=490) NEUTROPHILS ABSOLUTE COUNT (BEAKER) (test 9.19 K/ L 1.78-5.38 jylh=722) LYMPHOCYTES ABSOLUTE COUNT (BEAKER) (test 0.79 K/ L 1.32-3.57 wdpl=799) MONOCYTES ABSOLUTE COUNT (BEAKER) (test 0.86 K/ L 0.30-0.82 umiu=136) EOSINOPHILS ABSOLUTE COUNT (BEAKER) (test 0.16 K/ L 0.04-0.54 acqg=626) BASOPHILS ABSOLUTE COUNT (BEAKER) (test 0.07 K/ L 0.01-0.08 suai=415) IMMATURE GRANULOCYTES-RELATIVE PERCENT (BEAKER) 1 % 0-1 (test dxso=4469) POCT-GLUCOSE [id number] 22:24:00 Test Item Value Reference Range Comments POC-GLUCOSE METER (BEAKER) 152 mg/dL 70-110 TESTED AT [address] (test jkcn=0980) [place] [address] POCT-GLUCOSE [id number] 17:15:00 Test Item Value Reference Range Comments POC-GLUCOSE METER (BEAKER) 157 mg/dL 70-110 TESTED AT [address] (test kkqm=6319) [place] [address] RAD, CHEST, 1 VIEW, NON [id number] 15:38:00Reason for exam:->coughShould this be performed at the bedside?->YesFINAL REPORT Portable chest. CLINICAL HISTORY: cough. COMPARISON STUDY: July 31, 2018. FINDINGS: The cardiac silhouette is enlarged. The pulmonary parenchyma demonstrates mild interstitial markings. A left jugular line remains. No pneumothorax is seen. Degenerative changes are noted. IMPRESSION: No significant change. Signed: Daniel Gibbs MDReport Verified Date/Time: 2018 15:38:51 Reading Location: [address] Ortho Consult Reading Room POCT- GLUCOSE [id number] 07:50:00 Test Item Value Reference Range Comments POC-GLUCOSE METER (BEAKER) 132 mg/dL 70-110 TESTED AT [address] (test sjvj=7397) [facility] [id number] COMPREHENSIVE METABOLIC [id number] 07:16:00 Test Item Value Reference Range Comments TOTAL PROTEIN (BEAKER) 6.1 gm/dL 6.0-8.3 (test btnu=185) ALBUMIN (BEAKER) (test 3.1 g/dL 3.5-5.0 kghc=3066) ALKALINE PHOSPHATASE 123 U/L 40-150 (BEAKER) (test tylx=851) BILIRUBIN TOTAL (BEAKER) 3.1 mg/dL 0.2-1.2 (test sfti=167) SODIUM (BEAKER) (test 136 meq/L 136-145 uazx=932) POTASSIUM (BEAKER) (test 4.0 meq/L 3.5-5.1 albv=557) CHLORIDE (BEAKER) (test 99 meq/L 98-107 czxc=023) CO2 (BEAKER) (test 27 meq/L 22-29 buwg=755) BLOOD UREA NITROGEN 37 mg/dL 7-21 (BEAKER) (test tpvy=880) CREATININE (BEAKER) (test 5.17 mg/dL 0.57-1.25 yoeh=605) GLUCOSE RANDOM (BEAKER) 155 mg/dL 70-105 (test hphr=884) CALCIUM (BEAKER) (test 9.2 mg/dL 8.4-10.2 dpdj=319) AST (SGOT) (BEAKER) (test 53 U/L 5-34 hjvg=334) ALT (SGPT) (BEAKER) (test 124 U/L 6-55 wcpz=138) EGFR (BEAKER) (test 11 mL/min/1.73 sq m ESTIMATED GFR IS NOT vvrt=7932) ACCURATE CREATININE CLEARANCE IN PREDICTING GLOMERULAR FILTRATION RATE. ESTIMATED GFR IS NOT APPLICABLE FOR DIALYSIS PATIENTS. Specimen slightly [id number] 07:02:00 Test Item Value Reference Range Comments PHOSPHORUS (BEAKER) (test bunf=486) 4.3 mg/dL 2.3-4.7 [id number] 07:02:00 Test Item Value Reference Range Comments MAGNESIUM (BEAKER) (test sqwt=868) 2.5 mg/dL 1.6-2.6 CBC W/PLT COUNT & AUTO [id number] 06:31:00 Test Item Value Reference Range Comments WHITE BLOOD CELL COUNT (BEAKER) (test xheu=900) 10.8 K/ L 3.5-10.5 RED BLOOD CELL COUNT (BEAKER) (test kfjr=523) 3.47 M/ L 4.63-6.08 HEMOGLOBIN (BEAKER) (test itqb=564) 10.7 GM/DL 13.7-17.5 HEMATOCRIT (BEAKER) (test ynpu=410) 34.7 % 40.1-51.0 MEAN CORPUSCULAR VOLUME (BEAKER) (test evep=373) 100.0 fL 79.0-92.2 MEAN CORPUSCULAR HEMOGLOBIN (BEAKER) (test 30.8 pg 25.7-32.2 mczf=534) MEAN CORPUSCULAR HEMOGLOBIN CONC (BEAKER) (test 30.8 GM/DL 32.3-36.5 unni=990) RED CELL DISTRIBUTION WIDTH (BEAKER) (test 19.4 % 11.6-14.4 gmof=091) PLATELET COUNT (BEAKER) (test nloh=725) 179 K/CU MM 150-450 MEAN PLATELET VOLUME (BEAKER) (test cpkz=041) 11.0 fL 9.4-12.4 NUCLEATED RED BLOOD CELLS (BEAKER) (test 0 /100 WBC 0-0 zyzy=641) NEUTROPHILS RELATIVE PERCENT (BEAKER) (test 82 % vzin=840) LYMPHOCYTES RELATIVE PERCENT (BEAKER) (test 6 % dbgf=944) MONOCYTES RELATIVE PERCENT (BEAKER) (test 10 % daqs=735) EOSINOPHILS RELATIVE PERCENT (BEAKER) (test 2 % ukfe=816) BASOPHILS RELATIVE PERCENT (BEAKER) (test 0 % pref=244) NEUTROPHILS ABSOLUTE COUNT (BEAKER) (test 8.79 K/ L 1.78-5.38 atlo=503) LYMPHOCYTES ABSOLUTE COUNT (BEAKER) (test 0.67 K/ L 1.32-3.57 octp=137) MONOCYTES ABSOLUTE COUNT (BEAKER) (test 1.03 K/ L 0.30-0.82 ruuk=099) EOSINOPHILS ABSOLUTE COUNT (BEAKER) (test 0.16 K/ L 0.04-0.54 ctqq=817) BASOPHILS ABSOLUTE COUNT (BEAKER) (test 0.03 K/ L 0.01-0.08 nnaj=376) IMMATURE GRANULOCYTES-RELATIVE PERCENT (BEAKER) 1 % 0-1 (test erjd=1495) [id number] 06:22:00 Test Item Value Reference Range Comments PROTIME (BEAKER) (test psnp=811) 17.6 seconds 11.9-14.2 INR (BEAKER) (test kspx=139) 1.5 <=5.9 PARTIAL THROMBOPLASTIN TIME (BEAKER) (test 69.4 seconds 22.5-36.0 fode=011) Effective 07/29/2018: PT Reference Range ChangeNew: 11.9-14.2 Previous: 11.7- 14.7RECOMMENDED COUMADIN/WARFARIN INR THERAPY RANGESSTANDARD DOSE: 2.0-3.0 Includes: PROPHYLAXIS for venous thrombosis, systemic embolization; TREATMENT for venous thrombosis and/or pulmonary embolus.HIGH RISK: Target INR is2.5-3.5 for patients wiht mechanical heart valves.While on warfarin.While on warfarin.PROTHROMBIN TIME/[id number] 06:21:00 Test Item Value Reference Range Comments PROTIME (BEAKER) (test wqwu=917) 17.6 seconds 11.9-14.2 INR (BEAKER) (test htsp=086) 1.5 <=5.9 Effective 07/29/2018: PT Reference Range ChangeNew: 11.9-14.2 Previous: 11.7- 14.7RECOMMENDED COUMADIN/WARFARIN INR THERAPY RANGESSTANDARD DOSE: 2.0-3.0 Includes: PROPHYLAXIS for venous thrombosis, systemic embolization; TREATMENT for venous thrombosis and/or pulmonary embolus.HIGH RISK: Target INR is2.5-3.5 for patients wiht mechanical heart valves.POCT-GLUCOSE [id number] 21:12:00 Test Item Value Reference Range Comments POC-GLUCOSE METER (BEAKER) 129 mg/dL 70-110 TESTED AT [facility] [address] [facility] (test dckw=7972) [facility] [address] POCT-GLUCOSE [id number] 17:43:00 Test Item Value Reference Range Comments POC-GLUCOSE METER (BEAKER) 192 mg/dL 70-110 TESTED AT [address] (test gemh=4368) [facility] [address] ANG, AV-SHUNT, CATH INTRO WITH [id number] 16:46:00Reason for exam:-> clotted AVFFINAL REPORT Left upper extremity AV fistula declot. History: Thrombosed left upper extremity AV fistula. Modality: Ultrasound and fluoroscopy Sedation: None Anesthesia: Two percent Lidocaine without epinephrine. Approach: Left upper extremity AV fistula Estimated blood loss: < 5 cc. Specimen: None. gasoline truck operator: Jean-Claude Jones MD. Dubbing Machine Operator: MD Deshaun. Fluoroscopy Time: 12.6 min.Reference Air [...] was removed. An 8 x 4 cm Elsah balloon was then used to macerate the [...] MDReportVerified Date/ Time: 08/07/2018 16:46:54 Reading Location: [place] [address] Angio Body Reading Room LUPUS ANTICOAGULANT SCREEN WITH REFLEX TO [id number] 14:41:00 Test Item Value Reference Range Comments DRVV SCREEN RATIO (BEAKER) 1.21 <1.20 (test iyuv=6352) DRVV CONFIRM RATIO (test 1.09 tanv=3419) DRVV NORMALIZED RATIO (test 1.11 <1.20 gcjx=5431) DRVV INTERPRETATION (BEAKER) Prolonged lupus sensitive PTT (test fdqy=9635) (PTT-La) DRVV INTERPRETATION (BEAKER) Positive Hexagonal (test xhjl=437829) Phospholipid DRVV INTERPRETATION (BEAKER) Positive screen for Lupus (test zrss=679369) Anticoagulant. Suggest repeat testing in 12 weeks and when patient not receiving anticoagulant therapy. PROTIME (BEAKER) (test 14.9 seconds 11.9-14.2 theu=105) INR (BEAKER) (test qttp=582) 1.2 <=5.9 PARTIAL THROMBOPLASTIN TIME 44.9 seconds 22.5-36.0 (BEAKER) (test rxjr=422) PTT-LA (BEAKER) (test 55.1 32.0-41.8 apec=[id number]) QYKS-DOMNERQYCRM-741 (BEAKER) Maynor Hayward M.D. (test sray=5614) (electonic signature) HEXAGONAL [id number] 13:24:00 Test Item Value Reference Range Comments HEXAGONAL PHOSPHOLIPID (BEAKER) (test ykza=7111) Positive POCT-GLUCOSE [id number] 12:57:00 Test Item Value Reference Range Comments POC-GLUCOSE METER (BEAKER) 93 mg/dL 70-110 TESTED AT [facility] [address] [facility] (test wwqd=7202) [facility] [address] COMPREHENSIVE METABOLIC [id number] 12:54:00 Test Item Value Reference Range Comments TOTAL PROTEIN (BEAKER) 6.3 gm/dL 6.0-8.3 (test ggyh=028) ALBUMIN (BEAKER) (test 3.1 g/dL 3.5-5.0 lkkq=3240) ALKALINE PHOSPHATASE 128 U/L 40-150 (BEAKER) (test hhxm=601) BILIRUBIN TOTAL (BEAKER) 3.9 mg/dL 0.2-1.2 (test ptvm=382) SODIUM (BEAKER) (test 138 meq/L 136-145 rnqp=170) POTASSIUM (BEAKER) (test 3.5 meq/L 3.5-5.1 fugn=333) CHLORIDE (BEAKER) (test 101 meq/L 98-107 uqyu=989) CO2 (BEAKER) (test 28 meq/L 22-29 apwp=808) BLOOD UREA NITROGEN 22 mg/dL 7-21 (BEAKER) (test jfbd=959) CREATININE (BEAKER) (test 3.20 mg/dL 0.57-1.25 dbml=640) GLUCOSE RANDOM (BEAKER) 103 mg/dL 70-105 (test saho=023) CALCIUM (BEAKER) (test 9.2 mg/dL 8.4-10.2 ganz=079) AST (SGOT) (BEAKER) (test 54 U/L 5-34 ixnt=896) ALT (SGPT) (BEAKER) (test 133 U/L 6-55 naxq=647) EGFR (BEAKER) (test 19 mL/min/1.73 sq m ESTIMATED GFR IS NOT ydve=7044) ACCURATE CREATININE CLEARANCE IN PREDICTING GLOMERULAR FILTRATION RATE. ESTIMATED GFR IS NOT APPLICABLE FOR DIALYSIS PATIENTS. Specimen moderately [id number] 12:37:00 Test Item Value Reference Range Comments MAGNESIUM (BEAKER) (test dxoy=097) 1.8 mg/dL 1.6-2.6 POCT-GLUCOSE [id number] 11:49:00 Test Item Value Reference Range Comments POC-GLUCOSE METER (BEAKER) 86 mg/dL 70-110 TESTED AT [facility] [address] [facility] (test gdab=2967) [facility] [address] PT/[id number] 11:48:00 Test Item Value Reference Range Comments PROTIME (BEAKER) (test lfer=609) 17.4 seconds 11.9-14.2 INR (BEAKER) (test mxft=286) 1.5 <=5.9 PARTIAL THROMBOPLASTIN TIME (BEAKER) (test 66.0 seconds 22.5-36.0 kucj=607) Effective 07/29/2018: PT Reference Range ChangeNew: 11.9-14.2 Previous: 11.7- 14.7RECOMMENDED COUMADIN/WARFARIN INR THERAPY RANGESSTANDARD DOSE: 2.0-3.0 Includes: PROPHYLAXIS for venous thrombosis, systemic embolization; TREATMENT for venous thrombosis and/or pulmonary embolus.HIGH RISK: Target INR is2.5-3.5 for patients wiht mechanical heart valves.CBC W/PLT COUNT & AUTO [id number] 11:40:00 Test Item Value Reference Range Comments WHITE BLOOD CELL COUNT (BEAKER) (test hnvj=384) 11.2 K/ L 3.5-10.5 RED BLOOD CELL COUNT (BEAKER) (test ijkf=934) 3.51 M/ L 4.63-6.08 HEMOGLOBIN (BEAKER) (test bthe=298) 11.2 GM/DL 13.7-17.5 HEMATOCRIT (BEAKER) (test wdax=318) 34.1 % 40.1-51.0 MEAN CORPUSCULAR VOLUME (BEAKER) (test kgqd=466) 97.2 fL 79.0-92.2 MEAN CORPUSCULAR HEMOGLOBIN (BEAKER) (test 31.9 pg 25.7-32.2 txlp=278) MEAN CORPUSCULAR HEMOGLOBIN CONC (BEAKER) (test 32.8 GM/DL 32.3-36.5 havd=351) RED CELL DISTRIBUTION WIDTH (BEAKER) (test 19.6 % 11.6-14.4 nwrx=308) PLATELET COUNT (BEAKER) (test lndh=769) 138 K/CU MM 150-450 MEAN PLATELET VOLUME (BEAKER) (test uyzw=687) 10.7 fL 9.4-12.4 NUCLEATED RED BLOOD CELLS (BEAKER) (test 0 /100 WBC 0-0 ewfm=710) NEUTROPHILS RELATIVE PERCENT (BEAKER) (test 81 % pgrd=090) LYMPHOCYTES RELATIVE PERCENT (BEAKER) (test 7 % ntlj=766) MONOCYTES RELATIVE PERCENT (BEAKER) (test 10 % vcan=433) EOSINOPHILS RELATIVE PERCENT (BEAKER) (test 2 % esae=677) BASOPHILS RELATIVE PERCENT (BEAKER) (test 0 % nppb=184) NEUTROPHILS ABSOLUTE COUNT (BEAKER) (test 9.02 K/ L 1.78-5.38 ebev=322) LYMPHOCYTES ABSOLUTE COUNT (BEAKER) (test 0.73 K/ L 1.32-3.57 snvl=949) MONOCYTES ABSOLUTE COUNT (BEAKER) (test 1.09 K/ L 0.30-0.82 gumo=653) EOSINOPHILS ABSOLUTE COUNT (BEAKER) (test 0.21 K/ L 0.04-0.54 qeac=436) BASOPHILS ABSOLUTE COUNT (BEAKER) (test 0.03 K/ L 0.01-0.08 zvvj=821) IMMATURE GRANULOCYTES-RELATIVE PERCENT (BEAKER) 1 % 0-1 (test redd=8445) 1:1 MIXING STUDY, [id number] 11:18:00 Test Item Value Reference Range Comments PROTIME (BEAKER) (test weug=043) 14.9 seconds 11.9-14.2 PARTIAL THROMBOPLASTIN TIME (BEAKER) (test 44.9 seconds 22.5-36.0 namk=143) PT 1/1 MIX (BEAKER) (test walg=1519) 13.6 SECS 11.7-14.7 PTT 1/1 MIX (BEAKER) (test xbvm=9564) 34.8 SECS 22.5-36.0 THROMBIN [id number] 10:46:00 Test Item Value Reference Range Comments THROMBIN TIME (BEAKER) (test wqai=620) 23.0 secs 13.8-20.0 POCT-GLUCOSE [id number] 21:46:00 Test Item Value Reference Range Comments POC-GLUCOSE METER (BEAKER) 169 mg/dL 70-110 TESTED AT [facility] [address] [facility] (test agqo=2893) [facility] [address] CT, CTA, [id number] 18:58:00Addendum BeginsREPORT STATUS:A ADDENDUM: Study reviewed by radiology. Agree with the nonvascular findings as described below. 1.4 cm right upper lobe groundglass opacity with ill-defined margins may be followed with CT in 6 months. Signed: Gallo Delgado MDReport Verified Date/Time: 08/06/2018 18:58:59 Reading Location: [place] [address] Angio Body Reading RoomAddendum EndsFINAL REPORT CT [...] 45.4 degrees. The angle of delivery is HEBREW 5 CAU 19. The minimal and perpendicular [...] dictated regarding the non-vascular findings by the Developer Evangelist Radiologist. Signed: Edgar Torres Verified Date/Time : 08/06/2018 17:20:23 Reading Location: [place] [address], CTA [id number] 18:58:00Addendum BeginsREPORT STATUS:A ADDENDUM: Study reviewed by radiology. Agree with the nonvascular findings as described below. 1.4 cm right upper lobe groundglass opacity with ill-defined margins may be followed with CT in 6 months. Signed: Gallo Delgado Verified Date/Time: 08/06/2018 18:58:59 Reading Location: [place] [address] Angio Body Reading RoomAddendum EndsFINAL REPORT CT [...] 45.4 degrees. The angle of delivery is HEBREW 5 CAU 19. The minimal and perpendicular [...] dictated regarding the non-vascular findings by the Developer Evangelist Radiologist. Signed: Edgar Torres MDReport Verified Date/Time : 08/06/2018 17:20:23 Reading Location: [place] [address] Cardiology MRI POCT- GLUCOSE [id number] 12:37:00 Test Item Value Reference Range Comments POC-GLUCOSE METER (BEAKER) 204 mg/dL 70-110 TESTED AT [address] (test xydb=9035) [facility] [address] POCT-GLUCOSE [id number] 09:10:00 Test Item Value Reference Range Comments POC-GLUCOSE METER (BEAKER) 166 mg/dL 70-110 TESTED AT [address] (test inxw=3487) [facility] [address] COMPREHENSIVE METABOLIC [id number] 02:39:00 Test Item Value Reference Range Comments TOTAL PROTEIN (BEAKER) 6.0 gm/dL 6.0-8.3 (test esis=701) ALBUMIN (BEAKER) (test 3.0 g/dL 3.5-5.0 olnt=6405) ALKALINE PHOSPHATASE 140 U/L 40-150 (BEAKER) (test hubr=068) BILIRUBIN TOTAL (BEAKER) 4.9 mg/dL 0.2-1.2 (test uezb=073) SODIUM (BEAKER) (test 135 meq/L 136-145 zocw=108) POTASSIUM (BEAKER) (test 3.9 meq/L 3.5-5.1 wnmi=574) CHLORIDE (BEAKER) (test 100 meq/L 98-107 wiyr=389) CO2 (BEAKER) (test 25 meq/L 22-29 iivq=377) BLOOD UREA NITROGEN 41 mg/dL 7-21 (BEAKER) (test mupv=530) CREATININE (BEAKER) (test 5.53 mg/dL 0.57-1.25 cjqu=342) GLUCOSE RANDOM (BEAKER) 182 mg/dL 70-105 (test hcrc=037) CALCIUM (BEAKER) (test 9.3 mg/dL 8.4-10.2 lnxo=439) AST (SGOT) (BEAKER) (test 104 U/L 5-34 nnqf=354) ALT (SGPT) (BEAKER) (test 171 U/L 6-55 ckbm=534) EGFR (BEAKER) (test 10 mL/min/1.73 sq m ESTIMATED GFR IS NOT qwqf=7883) ACCURATE CREATININE CLEARANCE IN PREDICTING GLOMERULAR FILTRATION RATE. ESTIMATED GFR IS NOT APPLICABLE FOR DIALYSIS PATIENTS. Specimen moderately [id number] 02:32:00 Test Item Value Reference Range Comments PHOSPHORUS (BEAKER) (test lxxj=426) 4.1 mg/dL 2.3-4.7 [id number] 02:32:00 Test Item Value Reference Range Comments MAGNESIUM (BEAKER) (test sbim=537) 2.0 mg/dL 1.6-2.6 [id number] 02:21:00 Test Item Value Reference Range Comments PARTIAL THROMBOPLASTIN TIME (BEAKER) (test 66.8 seconds 22.5-36.0 rbgv=626) 4 hours after the start of continuous infusion and 4 hours after any rate changeWhile on warfarin.PROTHROMBIN TIME/[id number] 02:20:00 Test Item Value Reference Range Comments PROTIME (BEAKER) (test bone=318) 19.0 seconds 11.9-14.2 INR (BEAKER) (test fesj=474) 1.7 <=5.9 Effective 07/29/2018: PT Reference Range ChangeNew: 11.9-14.2 Previous: 11.7- 14.7RECOMMENDED COUMADIN/WARFARIN INR THERAPY RANGESSTANDARD DOSE: 2.0-3.0 Includes: PROPHYLAXIS for venous thrombosis, systemic embolization; TREATMENT for venous thrombosis and/or pulmonary embolus.HIGH RISK: Target INR is2.5-3.5 for patients wiht mechanical heart valves.4 hours after the start of continuous infusion and4 hours after any rate changeWhile on warfarin.CBC W/PLT COUNT &amp ; AUTO [id number] 02:02:00 Test Item Value Reference Range Comments WHITE BLOOD CELL COUNT (BEAKER) (test wovk=871) 10.6 K/ L 3.5-10.5 RED BLOOD CELL COUNT (BEAKER) (test jaax=416) 3.68 M/ L 4.63-6.08 HEMOGLOBIN (BEAKER) (test ipfm=581) 11.8 GM/DL 13.7-17.5 HEMATOCRIT (BEAKER) (test bbhd=916) 35.7 % 40.1-51.0 MEAN CORPUSCULAR VOLUME (BEAKER) (test mzgb=324) 97.0 fL 79.0-92.2 MEAN CORPUSCULAR HEMOGLOBIN (BEAKER) (test 32.1 pg 25.7-32.2 ylow=505) MEAN CORPUSCULAR HEMOGLOBIN CONC (BEAKER) (test 33.1 GM/DL 32.3-36.5 geby=039) RED CELL DISTRIBUTION WIDTH (BEAKER) (test 19.9 % 11.6-14.4 xtql=412) PLATELET COUNT (BEAKER) (test ysid=840) 115 K/CU MM 150-450 MEAN PLATELET VOLUME (BEAKER) (test awbk=391) 11.4 fL 9.4-12.4 NUCLEATED RED BLOOD CELLS (BEAKER) (test 0 /100 WBC 0-0 mimd=730) NEUTROPHILS RELATIVE PERCENT (BEAKER) (test 80 % qbce=528) LYMPHOCYTES RELATIVE PERCENT (BEAKER) (test 5 % yybv=168) MONOCYTES RELATIVE PERCENT (BEAKER) (test 12 % kkgc=617) EOSINOPHILS RELATIVE PERCENT (BEAKER) (test 2 % uutg=848) BASOPHILS RELATIVE PERCENT (BEAKER) (test 0 % xmsm=767) NEUTROPHILS ABSOLUTE COUNT (BEAKER) (test 8.48 K/ L 1.78-5.38 okdp=549) LYMPHOCYTES ABSOLUTE COUNT (BEAKER) (test 0.50 K/ L 1.32-3.57 zlfm=473) MONOCYTES ABSOLUTE COUNT (BEAKER) (test 1.31 K/ L 0.30-0.82 ftrg=497) EOSINOPHILS ABSOLUTE COUNT (BEAKER) (test 0.17 K/ L 0.04-0.54 wrog=012) BASOPHILS ABSOLUTE COUNT (BEAKER) (test 0.03 K/ L 0.01-0.08 tckb=656) IMMATURE GRANULOCYTES-RELATIVE PERCENT (BEAKER) 1 % 0-1 (test cgrg=3308) POCT-GLUCOSE [id number] 21:39:00 Test Item Value Reference Range Comments POC-GLUCOSE METER (BEAKER) 216 mg/dL 70-110 TESTED AT [facility] [address] [facility] (test bbuk=1956) [facility] [address] POCT-GLUCOSE [id number] 21:39:00 Test Item Value Reference Range Comments POC-GLUCOSE METER (BEAKER) 140 mg/dL 70-110 TESTED AT [address] (test ddhs=8232) [facility] [address] PROTEIN ELECTROPHORESIS, [id number] 15:47:00 Test Item Value Reference Range Comments ALBUMIN FRACTION (BEAKER) 2.8 g/dL 3.5-5.5 (test vytt=789) ALPHA 1 FRACTION (BEAKER) 0.4 g/dL 0.2-0.4 (test ycdw=194) ALPHA 2 FRACTION (BEAKER) 0.6 g/dL 0.5-0.9 (test tpfn=441) BETA FRACTION (BEAKER) (test 0.4 g/dL 0.6-1.1 atnb=738) GAMMA GLOBULIN FRACTION 1.4 g/dL 0.7-1.7 (BEAKER) (test pezl=529) INTERPRETATION-119 (BEAKER) Albumin decreased. Alpha (test xqld=1633) globulin-1 percentage increased. This suggests an acute phase response. FZCQ-SPULJVFIPBV-532 (BEAKER) Maynor Hayward M.D. (electonic (test zsyn=6587) signature) PROTEIN TOTAL SERUM, SPEP 5.6 gm/dL 6.0-8.3 (BEAKER) (test aidk=5647) Low beta globulin content also noted.POCT-GLUCOSE [id number] 09:01:00 Test Item Value Reference Range Comments POC-GLUCOSE METER (BEAKER) 175 mg/dL 70-110 TESTED AT [facility] [address] [facility] (test sdqg=8315) [facility] [address] COMPREHENSIVE METABOLIC [id number] 02:05:00 Test Item Value Reference Range Comments TOTAL PROTEIN (BEAKER) 5.7 gm/dL 6.0-8.3 (test fhus=413) ALBUMIN (BEAKER) (test 2.9 g/dL 3.5-5.0 kbfy=6852) ALKALINE PHOSPHATASE 89 U/L 40-150 (BEAKER) (test yyiz=624) BILIRUBIN TOTAL (BEAKER) 5.7 mg/dL 0.2-1.2 (test zwvl=146) SODIUM (BEAKER) (test 137 meq/L 136-145 eomi=556) POTASSIUM (BEAKER) (test 4.0 meq/L 3.5-5.1 cgyx=472) CHLORIDE (BEAKER) (test 98 meq/L 98-107 gdbd=579) CO2 (BEAKER) (test 26 meq/L 22-29 mktd=211) BLOOD UREA NITROGEN 66 mg/dL 7-21 (BEAKER) (test lejr=543) CREATININE (BEAKER) (test 7.46 mg/dL 0.57-1.25 rpex=989) GLUCOSE RANDOM (BEAKER) 177 mg/dL 70-105 (test pyqx=845) CALCIUM (BEAKER) (test 9.2 mg/dL 8.4-10.2 zayb=414) AST (SGOT) (BEAKER) (test 66 U/L 5-34 zhuq=190) ALT (SGPT) (BEAKER) (test 194 U/L 6-55 hyhn=728) EGFR (BEAKER) (test 7 mL/min/1.73 sq m ESTIMATED GFR IS NOT vgte=5077) ACCURATE CREATININE CLEARANCE IN PREDICTING GLOMERULAR FILTRATION RATE. ESTIMATED GFR IS NOT APPLICABLE FOR DIALYSIS PATIENTS. Specimen moderately [id number] 02:00:00 Test Item Value Reference Range Comments PHOSPHORUS (BEAKER) (test lxcj=822) 6.7 mg/dL 2.3-4.7 [id number] 02:00:00 Test Item Value Reference Range Comments MAGNESIUM (BEAKER) (test qarb=298) 2.3 mg/dL 1.6-2.6 CBC W/PLT COUNT & AUTO [id number] 01:50:00 Test Item Value Reference Range Comments WHITE BLOOD CELL COUNT (BEAKER) (test szvd=721) 9.6 K/ L 3.5-10.5 RED BLOOD CELL COUNT (BEAKER) (test njtm=671) 3.78 M/ L 4.63-6.08 HEMOGLOBIN (BEAKER) (test ryzy=303) 11.9 GM/DL 13.7-17.5 HEMATOCRIT (BEAKER) (test fqat=581) 37.0 % 40.1-51.0 MEAN CORPUSCULAR VOLUME (BEAKER) (test jlnw=076) 97.9 fL 79.0-92.2 MEAN CORPUSCULAR HEMOGLOBIN (BEAKER) (test 31.5 pg 25.7-32.2 pfdg=467) MEAN CORPUSCULAR HEMOGLOBIN CONC (BEAKER) (test 32.2 GM/DL 32.3-36.5 yepv=498) RED CELL DISTRIBUTION WIDTH (BEAKER) (test 19.9 % 11.6-14.4 kqxu=680) PLATELET COUNT (BEAKER) (test jsnr=479) 89 K/CU MM 150-450 MEAN PLATELET VOLUME (BEAKER) (test cdcl=862) 12.1 fL 9.4-12.4 NUCLEATED RED BLOOD CELLS (BEAKER) (test 0 /100 WBC 0-0 dkwr=155) NEUTROPHILS RELATIVE PERCENT (BEAKER) (test 79 % ifpa=426) LYMPHOCYTES RELATIVE PERCENT (BEAKER) (test 5 % wcvk=090) MONOCYTES RELATIVE PERCENT (BEAKER) (test 13 % nipp=193) EOSINOPHILS RELATIVE PERCENT (BEAKER) (test 2 % hnat=348) BASOPHILS RELATIVE PERCENT (BEAKER) (test 0 % fltg=308) NEUTROPHILS ABSOLUTE COUNT (BEAKER) (test 7.57 K/ L 1.78-5.38 tfyd=005) LYMPHOCYTES ABSOLUTE COUNT (BEAKER) (test 0.51 K/ L 1.32-3.57 xlco=431) MONOCYTES ABSOLUTE COUNT (BEAKER) (test axct=011) 1.24 K/ L 0.30-0.82 EOSINOPHILS ABSOLUTE COUNT (BEAKER) (test 0.16 K/ L 0.04-0.54 jkse=697) BASOPHILS ABSOLUTE COUNT (BEAKER) (test ocil=839) 0.02 K/ L 0.01-0.08 IMMATURE GRANULOCYTES-RELATIVE PERCENT (BEAKER) 1 % 0-1 (test loxt=1174) [id number] 01:49:00 Test Item Value Reference Range Comments PARTIAL THROMBOPLASTIN TIME (BEAKER) (test 71.2 seconds 22.5-36.0 vlud=838) While on warfarin.PROTHROMBIN TIME/[id number] 01:48:00 Test Item Value Reference Range Comments PROTIME (BEAKER) (test kimr=480) 18.6 seconds 11.9-14.2 INR (BEAKER) (test lgwv=950) 1.6 <=5.9 Effective 07/29/2018: PT Reference Range ChangeNew: 11.9-14.2 Previous: 11.7- 14.7RECOMMENDED COUMADIN/WARFARIN INR THERAPY RANGESSTANDARD DOSE: 2.0-3.0 Includes: PROPHYLAXIS for venous thrombosis, systemic embolization; TREATMENT for venous thrombosis and/or pulmonary embolus.HIGH RISK: Target INR is2.5-3.5 for patients wiht mechanical heart valves.While on warfarin.POCT-GLUCOSE [id number] 21:44:00 Test Item Value Reference Range Comments POC-GLUCOSE METER (BEAKER) 242 mg/dL 70-110 TESTED AT [address] (test aoqo=4397) [place] [address] [id number] 21:02:00 Test Item Value Reference Range Comments PARTIAL THROMBOPLASTIN TIME (BEAKER) (test 59.9 seconds 22.5-36.0 ovvx=670) POCT-GLUCOSE [id number] 16:52:00 Test Item Value Reference Range Comments POC-GLUCOSE METER (BEAKER) 130 mg/dL 70-110 TESTED AT [address] (test itls=1794) [facility] [address] HEPARIN [id number] 14:23:00 Test Item Value Reference Range Comments HEPARIN ANTIBODY (BEAKER) Positive-See Serotonin Release Negative (test cpcs=791) Assay for Confirmation HEPARIN ANTIBODY OD (BEAKER) 0.516 <0.400 (test ozyk=3070) 4T TOTAL SCORE (BEAKER) 6 (test kkmf=9962) Probability of HIT based on scoring system: 6-8=High probability; 4-5= intermediate probability; 0-3=low probabilityPERIPHERAL BLOOD SMEAR - HOLD [id number] 14:09:00 Test Item Value Reference Range Comments PERIPHERAL SMEAR SAVE (BEAKER) (test odxl=0974) SAVE [id number] 13:57:00 Test Item Value Reference Range Comments PARTIAL THROMBOPLASTIN TIME (BEAKER) (test 50.3 seconds 22.5-36.0 koob=327) POCT-GLUCOSE [id number] 12:31:00 Test Item Value Reference Range Comments POC-GLUCOSE METER (BEAKER) 90 mg/dL 70-110 TESTED AT [address] (test nlwg=4586) [place] [id number] CARDIOLIPIN ANTIBODIES, IGG AND [id number] 10:36:00 Test Item Value Reference Range Comments ANTICARDIOLIPIN IGG ANTIBODY (BEAKER) (test < GPL <20.0 clnw=596) ANTICARDIOLIPIN IGM ANTIBODY (BEAKER) (test 0.6 MPL <20.0 edmu=317) Anticardiolipin IgG Result Interpretation: <20.0 GPL Normal>/=20.0 GPL PositiveAnticardiolipin IgM Result Interpretation: <20.0 MPL Normal>/= 20.0 MPL [id number] 08:20:00 Test Item Value Reference Range Comments PARTIAL THROMBOPLASTIN TIME (BEAKER) (test 47.3 seconds 22.5-36.0 svye=181) POCT-GLUCOSE [id number] 07:52:00 Test Item Value Reference Range Comments POC-GLUCOSE METER (BEAKER) 90 mg/dL 70-110 TESTED AT [address] (test rhmk=9463) [place] [id number] COMPREHENSIVE METABOLIC [id number] 04:34:00 Test Item Value Reference Range Comments TOTAL PROTEIN (BEAKER) 6.1 gm/dL 6.0-8.3 (test uems=850) ALBUMIN (BEAKER) (test 3.0 g/dL 3.5-5.0 faod=9399) ALKALINE PHOSPHATASE 81 U/L 40-150 (BEAKER) (test mnwx=236) BILIRUBIN TOTAL (BEAKER) 6.0 mg/dL 0.2-1.2 (test essh=769) SODIUM (BEAKER) (test 136 meq/L 136-145 lduw=548) POTASSIUM (BEAKER) (test 4.1 meq/L 3.5-5.1 ekyx=162) CHLORIDE (BEAKER) (test 98 meq/L 98-107 xmfe=218) CO2 (BEAKER) (test 26 meq/L 22-29 nlcz=152) BLOOD UREA NITROGEN 54 mg/dL 7-21 (BEAKER) (test hkrl=629) CREATININE (BEAKER) (test 6.38 mg/dL 0.57-1.25 eqoj=427) GLUCOSE RANDOM (BEAKER) 123 mg/dL 70-105 (test imwr=937) CALCIUM (BEAKER) (test 9.0 mg/dL 8.4-10.2 mdoy=584) AST (SGOT) (BEAKER) (test 44 U/L 5-34 wxtv=686) ALT (SGPT) (BEAKER) (test 224 U/L 6-55 cesh=286) EGFR (BEAKER) (test 9 mL/min/1.73 sq m ESTIMATED GFR IS NOT xqll=3272) ACCURATE CREATININE CLEARANCE IN PREDICTING GLOMERULAR FILTRATION RATE. ESTIMATED GFR IS NOT APPLICABLE FOR DIALYSIS PATIENTS. Specimen moderately [id number] 04:27:00 Test Item Value Reference Range Comments MAGNESIUM (BEAKER) (test wnau=249) 2.1 mg/dL 1.6-2.6 CBC W/PLT COUNT & AUTO [id number] 03:53:00 Test Item Value Reference Range Comments WHITE BLOOD CELL COUNT (BEAKER) (test wdgz=945) 10.5 K/ L 3.5-10.5 RED BLOOD CELL COUNT (BEAKER) (test jhrk=718) 3.90 M/ L 4.63-6.08 HEMOGLOBIN (BEAKER) (test bxlc=381) 12.2 GM/DL 13.7-17.5 HEMATOCRIT (BEAKER) (test jhhn=003) 37.0 % 40.1-51.0 MEAN CORPUSCULAR VOLUME (BEAKER) (test jkuc=349) 94.9 fL 79.0-92.2 MEAN CORPUSCULAR HEMOGLOBIN (BEAKER) (test 31.3 pg 25.7-32.2 xofz=459) MEAN CORPUSCULAR HEMOGLOBIN CONC (BEAKER) (test 33.0 GM/DL 32.3-36.5 rlgl=075) RED CELL DISTRIBUTION WIDTH (BEAKER) (test 20.5 % 11.6-14.4 rufg=256) PLATELET COUNT (BEAKER) (test hmrm=972) 87 K/CU MM 150-450 MEAN PLATELET VOLUME (BEAKER) (test ywyh=719) 11.5 fL 9.4-12.4 NUCLEATED RED BLOOD CELLS (BEAKER) (test 0 /100 WBC 0-0 rxki=288) NEUTROPHILS RELATIVE PERCENT (BEAKER) (test 84 % sbqy=994) LYMPHOCYTES RELATIVE PERCENT (BEAKER) (test 4 % tero=896) MONOCYTES RELATIVE PERCENT (BEAKER) (test 10 % krfc=915) EOSINOPHILS RELATIVE PERCENT (BEAKER) (test 1 % rjpg=859) BASOPHILS RELATIVE PERCENT (BEAKER) (test 0 % dzmx=067) NEUTROPHILS ABSOLUTE COUNT (BEAKER) (test 8.79 K/ L 1.78-5.38 lsyl=161) LYMPHOCYTES ABSOLUTE COUNT (BEAKER) (test 0.44 K/ L 1.32-3.57 yxuu=581) MONOCYTES ABSOLUTE COUNT (BEAKER) (test lobu=201) 1.03 K/ L 0.30-0.82 EOSINOPHILS ABSOLUTE COUNT (BEAKER) (test 0.11 K/ L 0.04-0.54 dhxe=152) BASOPHILS ABSOLUTE COUNT (BEAKER) (test kevp=377) 0.01 K/ L 0.01-0.08 IMMATURE GRANULOCYTES-RELATIVE PERCENT (BEAKER) 1 % 0-1 (test wfif=9778) [id number] 03:52:00 Test Item Value Reference Range Comments PARTIAL THROMBOPLASTIN TIME (BEAKER) (test 56.9 seconds 22.5-36.0 qmxl=534) 4 hours after the start of continuous infusion and 4 hours after any rate changeWhile on warfarin.PROTHROMBIN TIME/[id number] 03:51:00 Test Item Value Reference Range Comments PROTIME (BEAKER) (test hzog=460) 17.2 seconds 11.9-14.2 INR (BEAKER) (test vxpk=298) 1.5 <=5.9 Effective 07/29/2018: PT Reference Range ChangeNew: 11.9-14.2 Previous: 11.7- 14.7RECOMMENDED COUMADIN/WARFARIN INR THERAPY RANGESSTANDARD DOSE: 2.0-3.0 Includes: PROPHYLAXIS for venous thrombosis, systemic embolization; TREATMENT for venous thrombosis and/or pulmonary embolus.HIGH RISK: Target INR is2.5-3.5 for patients wiht mechanical heart valves.4 hours after the start of continuous infusion and4 hours after any rate changeWhile on warfarin.POCT-GLUCOSE [id number] 23:01:00 Test Item Value Reference Range Comments POC-GLUCOSE METER (BEAKER) 147 mg/dL 70-110 TESTED AT [address] (test xbrc=5341) [facility] [address] [id number] 21:35:00 Test Item Value Reference Range Comments PARTIAL THROMBOPLASTIN TIME (BEAKER) (test 33.6 seconds 22.5-36.0 quxj=283) BLOOD [id number] 20:01:00 Test Item Value Reference Range Comments CULTURE (BEAKER) (test byfi=2348) No growth in 5 days PERIPHERAL BLOOD SMEAR - PATHOLOGIST [id number] 17:51:00 Test Item Value Reference Range Comments RBC MORPHOLOGY (BEAKER) Hypochromic, macrocytic (test lsov=5660) anemia with mild anisopoikilocytosis, including echinocytes and occasional elliptocytes. Rare schistocytes. Increased polychromasia. WBC MORPHOLOGY (BEAKER) Increased. Primarily (test ytbr=7008) comprised by neutrophils, few with toxic granulation features. PLT MORPHOLOGY (BEAKER) Decrease with normal (test amrj=8115) granular morphology. Occasional large and rare giant forms. No significant platelet aggregates/clumping identified. [id number] Jon Roger MD (BEAKER) (test rfka=5376) (electronic signature) [id number] 16:42:00 Test Item Value Reference Range Comments FERRITIN (BEAKER) (test pmpu=687) 3900 ng/mL 5-275 POCT-GLUCOSE [id number] 16:28:00 Test Item Value Reference Range Comments POC-GLUCOSE METER (BEAKER) 100 mg/dL 70-110 TESTED AT [address] (test ztgq=3173) [facility] [address] VITAMIN B12 AND [id number] 15:22:00 Test Item Value Reference Range Comments VITAMIN B12 (BEAKER) (test zujl=494) > pg/mL 213-816 FOLATE (BEAKER) (test wlpv=674) 7.7 ng/mL >=7.0 IMMUNOGLOBULIN G (IGG)2018-08-03 14:38:00 Test Item Value Reference Range Comments IMMUNOGLOBULIN G (IGG) (BEAKER) (test ccvu=966) 1163 mg/dL 540-1,822 IMMUNOGLOBULIN M (IGM)2018-08-03 14:38:00 Test Item Value Reference Range Comments IMMUNOGLOBULIN M (IGM) (BEAKER) (test qxnj=239) 86 mg/dL 22-293 IMMUNOGLOBULIN A (IGA)2018-08-03 14:38:00 Test Item Value Reference Range Comments IMMUNOGLOBULIN A (IGA) (BEAKER) (test iodl=949) 222 mg/dL 63-484 IRON, TIBC, % SAT. (WITHOUT FERRITIN)2018-08-03 14:38:00 Test Item Value Reference Range Comments IRON (BEAKER) (test vted=683) 29.0 ug/dL 40.0-160.0 TOTAL IRON BINDING CAPACITY (BEAKER) (test 186 ug/dL 250-450 mrxl=631) IRON % SATURATION (2) (BEAKER) (test rxqv=3175) 16 % 20-55 POCT-GLUCOSE [id number] 12:40:00 Test Item Value Reference Range Comments POC-GLUCOSE METER (BEAKER) 118 mg/dL 70-110 TESTED AT [address] (test svxm=2862) [facility] [address] CBC W/PLT COUNT & AUTO [id number] 11:38:00 Test Item Value Reference Range Comments WHITE BLOOD CELL COUNT (BEAKER) (test dppl=823) 12.6 K/ L 3.5-10.5 RED BLOOD CELL COUNT (BEAKER) (test izqi=865) 3.87 M/ L 4.63-6.08 HEMOGLOBIN (BEAKER) (test ajbx=314) 12.4 GM/DL 13.7-17.5 HEMATOCRIT (BEAKER) (test lkeq=734) 36.5 % 40.1-51.0 MEAN CORPUSCULAR VOLUME (BEAKER) (test dlvx=058) 94.3 fL 79.0-92.2 MEAN CORPUSCULAR HEMOGLOBIN (BEAKER) (test 32.0 pg 25.7-32.2 yutc=163) MEAN CORPUSCULAR HEMOGLOBIN CONC (BEAKER) (test 34.0 GM/DL 32.3-36.5 nscm=923) RED CELL DISTRIBUTION WIDTH (BEAKER) (test 20.3 % 11.6-14.4 chjl=597) PLATELET COUNT (BEAKER) (test huda=970) 97 K/CU MM 150-450 MEAN PLATELET VOLUME (BEAKER) (test gitq=435) 11.5 fL 9.4-12.4 NUCLEATED RED BLOOD CELLS (BEAKER) (test 0 /100 WBC 0-0 fyna=045) NEUTROPHILS RELATIVE PERCENT (BEAKER) (test 83 % ihhj=802) LYMPHOCYTES RELATIVE PERCENT (BEAKER) (test 5 % oxny=900) MONOCYTES RELATIVE PERCENT (BEAKER) (test 10 % vccz=162) EOSINOPHILS RELATIVE PERCENT (BEAKER) (test 1 % qnrk=551) BASOPHILS RELATIVE PERCENT (BEAKER) (test 0 % ghhj=952) NEUTROPHILS ABSOLUTE COUNT (BEAKER) (test 10.45 K/ L 1.78-5.38 ynfp=643) LYMPHOCYTES ABSOLUTE COUNT (BEAKER) (test 0.63 K/ L 1.32-3.57 kcoc=919) MONOCYTES ABSOLUTE COUNT (BEAKER) (test kljw=629) 1.21 K/ L 0.30-0.82 EOSINOPHILS ABSOLUTE COUNT (BEAKER) (test 0.18 K/ L 0.04-0.54 grff=769) BASOPHILS ABSOLUTE COUNT (BEAKER) (test algo=674) 0.01 K/ L 0.01-0.08 IMMATURE GRANULOCYTES-RELATIVE PERCENT (BEAKER) 1 % 0-1 (test eekn=9744) [id number] 09:34:00 Test Item Value Reference Range Comments PARTIAL THROMBOPLASTIN TIME (BEAKER) (test 56.9 seconds 22.5-36.0 sejt=626) POCT-GLUCOSE [id number] 08:07:00 Test Item Value Reference Range Comments POC-GLUCOSE METER (BEAKER) 117 mg/dL 70-110 TESTED AT [address] (test zvni=0423) [facility] [address] COMPREHENSIVE METABOLIC [id number] 03:40:00 Test Item Value Reference Range Comments TOTAL PROTEIN (BEAKER) 6.0 gm/dL 6.0-8.3 (test wflp=928) ALBUMIN (BEAKER) (test 3.1 g/dL 3.5-5.0 hgxa=6673) ALKALINE PHOSPHATASE 87 U/L 40-150 (BEAKER) (test ythb=809) BILIRUBIN TOTAL (BEAKER) 5.1 mg/dL 0.2-1.2 (test kbln=200) SODIUM (BEAKER) (test 132 meq/L 136-145 hitz=441) POTASSIUM (BEAKER) (test 4.8 meq/L 3.5-5.1 mxxd=532) CHLORIDE (BEAKER) (test 95 meq/L 98-107 prha=862) CO2 (BEAKER) (test 21 meq/L 22-29 kmgy=580) BLOOD UREA NITROGEN 88 mg/dL 7-21 (BEAKER) (test zqov=645) CREATININE (BEAKER) (test 8.78 mg/dL 0.57-1.25 jjgg=844) GLUCOSE RANDOM (BEAKER) 154 mg/dL 70-105 (test cxwf=641) CALCIUM (BEAKER) (test 9.2 mg/dL 8.4-10.2 yhwi=381) AST (SGOT) (BEAKER) (test 78 U/L 5-34 vbmp=471) ALT (SGPT) (BEAKER) (test 320 U/L 6-55 gkye=073) EGFR (BEAKER) (test 6 mL/min/1.73 sq m ESTIMATED GFR IS NOT lxft=7108) ACCURATE CREATININE CLEARANCE IN PREDICTING GLOMERULAR FILTRATION RATE. ESTIMATED GFR IS NOT APPLICABLE FOR DIALYSIS PATIENTS. Specimen moderately [id number] 03:26:00 Test Item Value Reference Range Comments PHOSPHORUS (BEAKER) (test gcct=624) 9.7 mg/dL 2.3-4.7 PROTHROMBIN [id number] 03:20:00 Test Item Value Reference Range Comments PROTIME (BEAKER) (test ftjl=231) 15.3 seconds 11.9-14.2 INR (BEAKER) (test whze=461) 1.3 <=5.9 Effective 07/29/2018: PT Reference Range ChangeNew: 11.9-14.2 Previous: 11.7- 14.7RECOMMENDED COUMADIN/WARFARIN INR THERAPY RANGESSTANDARD DOSE: 2.0-3.0 Includes: PROPHYLAXIS for venous thrombosis, systemic embolization; TREATMENT for venous thrombosis and/or pulmonary embolus.HIGH RISK: Target INR is2.5-3.5 for patients wiht mechanical heart valves.While on warfarin.[id number] 02:42:00 Test Item Value Reference Range Comments MAGNESIUM (BEAKER) (test ruwm=817) 2.6 mg/dL 1.6-2.6 [id number] 02:37:00 Test Item Value Reference Range Comments PARTIAL THROMBOPLASTIN TIME (BEAKER) (test 59.7 seconds 22.5-36.0 qmwu=018) POCT-GLUCOSE [id number] 21:25:00 Test Item Value Reference Range Comments POC-GLUCOSE METER (BEAKER) 153 mg/dL 70-110 TESTED AT [address] (test ffka=9658) [place] [address] POCT-GLUCOSE [id number] 18:23:00 Test Item Value Reference Range Comments POC-GLUCOSE METER (BEAKER) 179 mg/dL 70-110 TESTED AT [address] (test ggxb=3154) [place] [id number] POCT-GLUCOSE [id number] 14:45:00 Test Item Value Reference Range Comments POC-GLUCOSE METER (BEAKER) 198 mg/dL 70-110 TESTED AT [address] (test fcdk=2927) [place] [address] POCT-GLUCOSE [id number] 09:20:00 Test Item Value Reference Range Comments POC-GLUCOSE METER (BEAKER) 196 mg/dL 70-110 TESTED AT [address] (test zpgb=8601) [place] [id number] CBC W/PLT COUNT & AUTO [id number] 05:23:00 Test Item Value Reference Range Comments WHITE BLOOD CELL COUNT (BEAKER) (test cfbe=844) 13.2 K/ L 3.5-10.5 RED BLOOD CELL COUNT (BEAKER) (test zrxh=368) 4.01 M/ L 4.63-6.08 HEMOGLOBIN (BEAKER) (test tnlg=676) 12.6 GM/DL 13.7-17.5 HEMATOCRIT (BEAKER) (test acvi=926) 39.0 % 40.1-51.0 MEAN CORPUSCULAR VOLUME (BEAKER) (test nrgm=430) 97.3 fL 79.0-92.2 MEAN CORPUSCULAR HEMOGLOBIN (BEAKER) (test 31.4 pg 25.7-32.2 sfin=987) MEAN CORPUSCULAR HEMOGLOBIN CONC (BEAKER) (test 32.3 GM/DL 32.3-36.5 xhdg=691) RED CELL DISTRIBUTION WIDTH (BEAKER) (test 20.0 % 11.6-14.4 zzfq=222) PLATELET COUNT (BEAKER) (test kama=402) 112 K/CU MM 150-450 MEAN PLATELET VOLUME (BEAKER) (test rrix=160) 11.9 fL 9.4-12.4 NUCLEATED RED BLOOD CELLS (BEAKER) (test 0 /100 WBC 0-0 wbss=768) NEUTROPHILS RELATIVE PERCENT (BEAKER) (test 84 % zugw=506) LYMPHOCYTES RELATIVE PERCENT (BEAKER) (test 4 % lelo=617) MONOCYTES RELATIVE PERCENT (BEAKER) (test 10 % spgq=369) EOSINOPHILS RELATIVE PERCENT (BEAKER) (test 1 % dqad=908) BASOPHILS RELATIVE PERCENT (BEAKER) (test 0 % kqxm=770) NEUTROPHILS ABSOLUTE COUNT (BEAKER) (test 11.13 K/ L 1.78-5.38 dowd=503) LYMPHOCYTES ABSOLUTE COUNT (BEAKER) (test 0.55 K/ L 1.32-3.57 mljc=772) MONOCYTES ABSOLUTE COUNT (BEAKER) (test 1.27 K/ L 0.30-0.82 psmy=855) EOSINOPHILS ABSOLUTE COUNT (BEAKER) (test 0.10 K/ L 0.04-0.54 aqbx=969) BASOPHILS ABSOLUTE COUNT (BEAKER) (test 0.02 K/ L 0.01-0.08 yoan=424) IMMATURE GRANULOCYTES-RELATIVE PERCENT (BEAKER) 1 % 0-1 (test knin=6627) [id number] 05:14:00 Test Item Value Reference Range Comments PHOSPHORUS (BEAKER) (test nbfe=931) 9.0 mg/dL 2.3-4.7 COMPREHENSIVE METABOLIC [id number] 05:11:00 Test Item Value Reference Range Comments TOTAL PROTEIN (BEAKER) 6.1 gm/dL 6.0-8.3 (test cycd=429) ALBUMIN (BEAKER) (test 3.2 g/dL 3.5-5.0 ecxw=9272) ALKALINE PHOSPHATASE 74 U/L 40-150 (BEAKER) (test zqkq=184) BILIRUBIN TOTAL (BEAKER) 4.8 mg/dL 0.2-1.2 (test fdis=935) SODIUM (BEAKER) (test 134 meq/L 136-145 nwoy=274) POTASSIUM (BEAKER) (test 4.6 meq/L 3.5-5.1 ljvo=937) CHLORIDE (BEAKER) (test 98 meq/L 98-107 wwkn=848) CO2 (BEAKER) (test 21 meq/L 22-29 ylpf=991) BLOOD UREA NITROGEN 72 mg/dL 7-21 (BEAKER) (test ccme=055) CREATININE (BEAKER) (test 8.05 mg/dL 0.57-1.25 mzxt=704) GLUCOSE RANDOM (BEAKER) 176 mg/dL 70-105 (test wsft=601) CALCIUM (BEAKER) (test 9.4 mg/dL 8.4-10.2 dsjg=723) AST (SGOT) (BEAKER) (test 103 U/L 5-34 uayc=296) ALT (SGPT) (BEAKER) (test 471 U/L 6-55 xmyn=636) EGFR (BEAKER) (test 7 mL/min/1.73 sq m ESTIMATED GFR IS NOT liva=7740) ACCURATE CREATININE CLEARANCE IN PREDICTING GLOMERULAR FILTRATION RATE. ESTIMATED GFR IS NOT APPLICABLE FOR DIALYSIS PATIENTS. Specimen moderately [id number] 05:09:00 Test Item Value Reference Range Comments MAGNESIUM (BEAKER) (test ebdc=088) 2.4 mg/dL 1.6-2.6 [id number] 05:04:00 Test Item Value Reference Range Comments PARTIAL THROMBOPLASTIN TIME (BEAKER) (test 68.6 seconds 22.5-36.0 iwof=467) While on warfarin.PROTHROMBIN TIME/[id number] 05:03:00 Test Item Value Reference Range Comments PROTIME (BEAKER) (test eqdh=188) 16.5 seconds 11.9-14.2 INR (BEAKER) (test jvzg=106) 1.4 <=5.9 Effective 07/29/2018: PT Reference Range ChangeNew: 11.9-14.2 Previous: 11.7- 14.7RECOMMENDED COUMADIN/WARFARIN INR THERAPY RANGESSTANDARD DOSE: 2.0-3.0 Includes: PROPHYLAXIS for venous thrombosis, systemic embolization; TREATMENT for venous thrombosis and/or pulmonary embolus.HIGH RISK: Target INR is2.5-3.5 for patients wiht mechanical heart valves.While on warfarin.POCT-GLUCOSE [id number] 17:50:00 Test Item Value Reference Range Comments POC-GLUCOSE METER (BEAKER) 202 mg/dL 70-110 TESTED AT [address] (test xgao=3951) [facility] [address] POCT-GLUCOSE [id number] 11:57:00 Test Item Value Reference Range Comments POC-GLUCOSE METER (BEAKER) 144 mg/dL 70-110 TESTED AT [address] (test dddc=1642) [facility] [address] POCT-GLUCOSE [id number] 07:43:00 Test Item Value Reference Range Comments POC-GLUCOSE METER (BEAKER) 143 mg/dL 70-110 TESTED AT [address] (test wzlc=8568) [facility] [address] COMPREHENSIVE METABOLIC [id number] 06:25:00 Test Item Value Reference Range Comments TOTAL PROTEIN (BEAKER) 5.8 gm/dL 6.0-8.3 (test mkoq=893) ALBUMIN (BEAKER) (test 3.1 g/dL 3.5-5.0 xauj=6785) ALKALINE PHOSPHATASE 73 U/L 40-150 (BEAKER) (test igau=191) BILIRUBIN TOTAL (BEAKER) 3.9 mg/dL 0.2-1.2 (test dasu=685) SODIUM (BEAKER) (test 139 meq/L 136-145 jbbm=320) POTASSIUM (BEAKER) (test 4.5 meq/L 3.5-5.1 yygz=219) CHLORIDE (BEAKER) (test 102 meq/L 98-107 sleg=712) CO2 (BEAKER) (test 23 meq/L 22-29 rusp=386) BLOOD UREA NITROGEN 54 mg/dL 7-21 (BEAKER) (test yobj=657) CREATININE (BEAKER) (test 6.73 mg/dL 0.57-1.25 gees=434) GLUCOSE RANDOM (BEAKER) 134 mg/dL 70-105 (test vktz=617) CALCIUM (BEAKER) (test 9.3 mg/dL 8.4-10.2 caby=038) AST (SGOT) (BEAKER) (test 140 U/L 5-34 gkck=860) ALT (SGPT) (BEAKER) (test 598 U/L 6-55 kyqp=331) EGFR (BEAKER) (test 8 mL/min/1.73 sq m ESTIMATED GFR IS NOT ktph=5171) ACCURATE CREATININE CLEARANCE IN PREDICTING GLOMERULAR FILTRATION RATE. ESTIMATED GFR IS NOT APPLICABLE FOR DIALYSIS PATIENTS. Specimen slightly ictericHEPATIC FUNCTION [id number] 06:15:00 Test Item Value Reference Range Comments TOTAL PROTEIN (BEAKER) (test okpl=245) 5.8 gm/dL 6.0-8.3 ALBUMIN (BEAKER) (test hcsl=9766) 3.1 g/dL 3.5-5.0 BILIRUBIN TOTAL (BEAKER) (test smlg=325) 3.9 mg/dL 0.2-1.2 BILIRUBIN DIRECT (BEAKER) (test wrzf=241) 2.4 mg/dL 0.1-0.5 ALKALINE PHOSPHATASE (BEAKER) (test zmau=333) 73 U/L 40-150 AST (SGOT) (BEAKER) (test vdiu=071) 140 U/L 5-34 ALT (SGPT) (BEAKER) (test diit=126) 598 U/L 6-55 Specimen slightly ictericCBC W/PLT COUNT & AUTO [id number] 06:01 :00 Test Item Value Reference Range Comments WHITE BLOOD CELL COUNT (BEAKER) (test nshn=254) 12.1 K/ L 3.5-10.5 RED BLOOD CELL COUNT (BEAKER) (test nfru=061) 4.15 M/ L 4.63-6.08 HEMOGLOBIN (BEAKER) (test japn=676) 12.9 GM/DL 13.7-17.5 HEMATOCRIT (BEAKER) (test llto=380) 40.9 % 40.1-51.0 MEAN CORPUSCULAR VOLUME (BEAKER) (test clxu=960) 98.6 fL 79.0-92.2 MEAN CORPUSCULAR HEMOGLOBIN (BEAKER) (test 31.1 pg 25.7-32.2 qdio=942) MEAN CORPUSCULAR HEMOGLOBIN CONC (BEAKER) (test 31.5 GM/DL 32.3-36.5 gywy=366) RED CELL DISTRIBUTION WIDTH (BEAKER) (test 20.1 % 11.6-14.4 afza=512) PLATELET COUNT (BEAKER) (test lrqn=902) 105 K/CU MM 150-450 MEAN PLATELET VOLUME (BEAKER) (test feqn=233) 11.2 fL 9.4-12.4 NUCLEATED RED BLOOD CELLS (BEAKER) (test 1 /100 WBC 0-0 axze=076) NEUTROPHILS RELATIVE PERCENT (BEAKER) (test 85 % qngs=969) LYMPHOCYTES RELATIVE PERCENT (BEAKER) (test 4 % bppn=591) MONOCYTES RELATIVE PERCENT (BEAKER) (test 9 % mpvu=624) EOSINOPHILS RELATIVE PERCENT (BEAKER) (test 1 % sojq=806) BASOPHILS RELATIVE PERCENT (BEAKER) (test 0 % tokx=491) NEUTROPHILS ABSOLUTE COUNT (BEAKER) (test 10.25 K/ L 1.78-5.38 dcvr=386) LYMPHOCYTES ABSOLUTE COUNT (BEAKER) (test 0.46 K/ L 1.32-3.57 ljqf=399) MONOCYTES ABSOLUTE COUNT (BEAKER) (test 1.13 K/ L 0.30-0.82 xwbo=221) EOSINOPHILS ABSOLUTE COUNT (BEAKER) (test 0.10 K/ L 0.04-0.54 cqkq=746) BASOPHILS ABSOLUTE COUNT (BEAKER) (test 0.03 K/ L 0.01-0.08 pxdv=948) IMMATURE GRANULOCYTES-RELATIVE PERCENT (BEAKER) 1 % 0-1 (test uomg=8090) [id number] 06:00:00 Test Item Value Reference Range Comments PARTIAL THROMBOPLASTIN TIME (BEAKER) (test 71.3 seconds 22.5-36.0 rltc=530) While on warfarin.PROTHROMBIN TIME/[id number] 05:59:00 Test Item Value Reference Range Comments PROTIME (BEAKER) (test umfr=786) 18.5 seconds 11.9-14.2 INR (BEAKER) (test oeoi=161) 1.6 <=5.9 Effective 07/29/2018: PT Reference Range ChangeNew: 11.9-14.2 Previous: 11.7- 14.7RECOMMENDED COUMADIN/WARFARIN INR THERAPY RANGESSTANDARD DOSE: 2.0-3.0 Includes: PROPHYLAXIS for venous thrombosis, systemic embolization; TREATMENT for venous thrombosis and/or pulmonary embolus.HIGH RISK: Target INR is2.5-3.5 for patients wiht mechanical heart valves.While on warfarin.BLOOD [id number] 02:00:00 Test Item Value Reference Range Comments CULTURE (BEAKER) (test nlmv=1569) No growth in 5 days [id number] 00:14:00 Test Item Value Reference Range Comments PARTIAL THROMBOPLASTIN TIME (BEAKER) (test 90.2 seconds 22.5-36.0 yklc=886) POCT-GLUCOSE [id number] 23:48:00 Test Item Value Reference Range Comments POC-GLUCOSE METER (BEAKER) 130 mg/dL 70-110 TESTED AT [address] (test zpwj=8472) [facility] [address] POCT-GLUCOSE [id number] 18:15:00 Test Item Value Reference Range Comments POC-GLUCOSE METER (BEAKER) 122 mg/dL 70-110 TESTED AT [address] (test repk=8545) [facility] [address] [id number] 17:13:00 Test Item Value Reference Range Comments PARTIAL THROMBOPLASTIN TIME (BEAKER) (test 110.6 seconds 22.5-36.0 nkpw=217) RAD, CHEST, 1 VIEW, NON [id number] 15:38:00Reason for exam:->Central line placementShould this be [...] MDReport Verified Date/Time: 07/31/2018 15:38:10 Reading Location: [place] [id number] Consult Reading Room [id number] 11:49:00 Test Item Value Reference Range Comments PARTIAL THROMBOPLASTIN TIME (BEAKER) (test 88.8 seconds 22.5-36.0 bztx=577) POCT-GLUCOSE [id number] 11:46:00 Test Item Value Reference Range Comments POC-GLUCOSE METER (BEAKER) 145 mg/dL 70-110 TESTED AT [facility] [address] [place] [address] (test iams=9976) [facility] [address] CT, BRAIN, WITHOUT [id number] 10:24:00FINAL REPORT CT Head without contrast CLINICAL [...] Verified Date/Time: 07/31/2018 10 :24:48 Reading Location: [facility] B1 C013V Neuro Reading Room [id number] 10:15:00 Test Item Value Reference Range Comments AMMONIA (BEAKER) (test uohx=526) 46 mol/L 18-72 BLOOD GAS, [id number] 08:44:00 Test Item Value Reference Range Comments PH ARTERIAL (BEAKER) (test ncyi=634) 7.37 7.35-7.45 PCO2 ARTERIAL (BEAKER) (test lajc=162) 44 mmHg 35-45 PO2 ARTERIAL (BEAKER) (test pcpm=801) 229 mmHg 80-90 O2 SATURATION ARTERIAL (BEAKER) (test dtap=779) 99.5 % 96.0-97.0 HCO3 ARTERIAL (BEAKER) (test rnuj=731) 25 mmol/L 21-29 BASE EXCESS ARTERIAL (BEAKER) (test owtn=204) -0.7 mmol/L -2.0-3.0 PATIENT TEMPERATURE (BEAKER) (test uyre=1138) 37.0 C FIO2 (BEAKER) (test diim=7132) 21.0 % POCT-GLUCOSE [id number] 08:22:00 Test Item Value Reference Range Comments POC-GLUCOSE METER (BEAKER) 170 mg/dL 70-110 TESTED AT [address] (test qfig=9443) [place] [id number] POCT-GLUCOSE [id number] 05:39:00 Test Item Value Reference Range Comments POC-GLUCOSE METER (BEAKER) 163 mg/dL 70-110 TESTED AT [address] (test buoj=4252) [facility] [address] CBC W/PLT COUNT & AUTO [id number] 05:18:00 Test Item Value Reference Range Comments WHITE BLOOD CELL COUNT (BEAKER) (test cgpe=634) 11.9 K/ L 3.5-10.5 RED BLOOD CELL COUNT (BEAKER) (test nxak=912) 3.71 M/ L 4.63-6.08 HEMOGLOBIN (BEAKER) (test syst=294) 11.4 GM/DL 13.7-17.5 HEMATOCRIT (BEAKER) (test rzyv=416) 35.1 % 40.1-51.0 MEAN CORPUSCULAR VOLUME (BEAKER) (test piev=190) 94.6 fL 79.0-92.2 MEAN CORPUSCULAR HEMOGLOBIN (BEAKER) (test 30.7 pg 25.7-32.2 jnod=894) MEAN CORPUSCULAR HEMOGLOBIN CONC (BEAKER) (test 32.5 GM/DL 32.3-36.5 mvpe=928) RED CELL DISTRIBUTION WIDTH (BEAKER) (test 18.1 % 11.6-14.4 hcow=438) PLATELET COUNT (BEAKER) (test ukif=456) 112 K/CU MM 150-450 MEAN PLATELET VOLUME (BEAKER) (test lkxz=416) 10.8 fL 9.4-12.4 NUCLEATED RED BLOOD CELLS (BEAKER) (test 1 /100 WBC 0-0 rmxa=956) NEUTROPHILS RELATIVE PERCENT (BEAKER) (test 81 % caho=721) LYMPHOCYTES RELATIVE PERCENT (BEAKER) (test 7 % auvh=841) MONOCYTES RELATIVE PERCENT (BEAKER) (test 9 % czve=463) EOSINOPHILS RELATIVE PERCENT (BEAKER) (test 1 % zebn=849) BASOPHILS RELATIVE PERCENT (BEAKER) (test 0 % ybtz=637) NEUTROPHILS ABSOLUTE COUNT (BEAKER) (test 9.72 K/ L 1.78-5.38 lnhh=830) LYMPHOCYTES ABSOLUTE COUNT (BEAKER) (test 0.86 K/ L 1.32-3.57 zwbw=733) MONOCYTES ABSOLUTE COUNT (BEAKER) (test 1.09 K/ L 0.30-0.82 nszp=462) EOSINOPHILS ABSOLUTE COUNT (BEAKER) (test 0.09 K/ L 0.04-0.54 reyv=849) BASOPHILS ABSOLUTE COUNT (BEAKER) (test 0.01 K/ L 0.01-0.08 tnjq=109) IMMATURE GRANULOCYTES-RELATIVE PERCENT (BEAKER) 1 % 0-1 (test vxqk=6627) [id number] 05:12:00 Test Item Value Reference Range Comments PHOSPHORUS (BEAKER) (test 10.1 mg/dL 2.3-4.7 Specimen slightly hemolyzed xjqv=066) COMPREHENSIVE METABOLIC [id number] 05:12:00 Test Item Value Reference Range Comments TOTAL PROTEIN (BEAKER) 5.4 gm/dL 6.0-8.3 Specimen slightly (test vsys=065) hemolyzed ALBUMIN (BEAKER) (test 3.0 g/dL 3.5-5.0 Specimen slightly uovj=2403) hemolyzed ALKALINE PHOSPHATASE 66 U/L 40-150 (BEAKER) (test kpac=090) BILIRUBIN TOTAL (BEAKER) 3.6 mg/dL 0.2-1.2 Specimen slightly (test zppc=896) hemolyzed SODIUM (BEAKER) (test 133 meq/L 136-145 ffxt=787) POTASSIUM (BEAKER) (test 4.0 meq/L 3.5-5.1 Specimen slightly tjpk=933) hemolyzed CHLORIDE (BEAKER) (test 95 meq/L 98-107 btre=920) CO2 (BEAKER) (test 21 meq/L 22-29 rnmi=023) BLOOD UREA NITROGEN 86 mg/dL 7-21 (BEAKER) (test cufp=628) CREATININE (BEAKER) (test 8.92 mg/dL 0.57-1.25 Specimen slightly xzlb=135) hemolyzed GLUCOSE RANDOM (BEAKER) 152 mg/dL 70-105 (test zygh=288) CALCIUM (BEAKER) (test 9.2 mg/dL 8.4-10.2 lbrr=734) AST (SGOT) (BEAKER) (test 182 U/L 5-34 Specimen slightly vemm=102) hemolyzed ALT (SGPT) (BEAKER) (test 694 U/L 6-55 Specimen slightly onzj=187) hemolyzed EGFR (BEAKER) (test 6 mL/min/1.73 sq m ESTIMATED GFR IS NOT wpwo=1184) ACCURATE CREATININE CLEARANCE IN PREDICTING GLOMERULAR FILTRATION RATE. ESTIMATED GFR IS NOT APPLICABLE FOR DIALYSIS PATIENTS. Specimen slightly [id number] 05:08:00 Test Item Value Reference Range Comments MAGNESIUM (BEAKER) (test 2.7 mg/dL 1.6-2.6 Specimen slightly hemolyzed baem=630) [id number] 04:52:00 Test Item Value Reference Range Comments PARTIAL THROMBOPLASTIN TIME (BEAKER) (test 70.9 seconds 22.5-36.0 pdrw=003) While on warfarin.PROTHROMBIN [id number] 04:51:00 Test Item Value Reference Range Comments PROTIME (BEAKER) (test snym=469) 19.8 seconds 11.9-14.2 INR (BEAKER) (test tinx=464) 1.8 <=5.9 Effective 07/29/2018: PT Reference Range ChangeNew: 11.9-14.2 Previous: 11.7- 14.7RECOMMENDED COUMADIN/WARFARIN INR THERAPY RANGESSTANDARD DOSE: 2.0-3.0 Includes: PROPHYLAXIS for venous thrombosis, systemic embolization; TREATMENT for venous thrombosis and/or pulmonary embolus.HIGH RISK: Target INR is2.5-3.5 for patients wiht mechanical heart valves.While on warfarin.POCT-GLUCOSE [id number] 23:36:00 Test Item Value Reference Range Comments POC-GLUCOSE METER (BEAKER) 190 mg/dL 70-110 TESTED AT [address] (test hyeo=7603) [place] [address] [id number] 22:33:00 Test Item Value Reference Range Comments PARTIAL THROMBOPLASTIN TIME (BEAKER) (test 57.7 seconds 22.5-36.0 nvmi=989) POCT-GLUCOSE [id number] 18:20:00 Test Item Value Reference Range Comments POC-GLUCOSE METER (BEAKER) 170 mg/dL 70-110 TESTED AT [address] (test otsv=6894) [place] [address] [id number] 16:52:00 Test Item Value Reference Range Comments PARTIAL THROMBOPLASTIN TIME (BEAKER) (test 24.5 seconds 22.5-36.0 rnlw=871) 6 hours after starting heparin infusion and as indicated per sliding scalePOCT- GLUCOSE [id number] 12:30:00 Test Item Value Reference Range Comments POC-GLUCOSE METER (BEAKER) 160 mg/dL 70-110 TESTED AT [address] (test hhgd=3126) [place] [address] HIV-1 PCR, [id number] 10:23:00 Test Item Value Reference Range Comments HIV-1 NUMERIC RESULT (BEAKER) (test fswu=6178) 1060 Cp/mL <20 This test uses a Real-Time Polymerase Chain Reaction (RT-PCR) methodology to detect a highly conserved region of the HIV-1 gag gene and was performed using the [employer] AmpliPrep/OLESYA TaqMan HIV-1 test kit version 2.0 ([employer]Reportable range for this assay is 20 - 10,000,000 copies per mL (1.3 - 7.0 Log copies/mL).COMPREHENSIVE METABOLIC [id number] 06:59:00 Test Item Value Reference Range Comments TOTAL PROTEIN (BEAKER) 6.1 gm/dL 6.0-8.3 Specimen slightly (test srjb=810) hemolyzed ALBUMIN (BEAKER) (test 3.4 g/dL 3.5-5.0 Specimen slightly sude=9628) hemolyzed ALKALINE PHOSPHATASE 75 U/L 40-150 (BEAKER) (test wjzo=105) BILIRUBIN TOTAL (BEAKER) 3.7 mg/dL 0.2-1.2 Specimen slightly (test lsfn=312) hemolyzed SODIUM (BEAKER) (test 136 meq/L 136-145 kjbl=135) POTASSIUM (BEAKER) (test 4.3 meq/L 3.5-5.1 Specimen slightly hjit=992) hemolyzed CHLORIDE (BEAKER) (test 97 meq/L 98-107 owht=082) CO2 (BEAKER) (test 20 meq/L 22-29 ubjd=701) BLOOD UREA NITROGEN 66 mg/dL 7-21 (BEAKER) (test ufup=525) CREATININE (BEAKER) (test 7.56 mg/dL 0.57-1.25 Specimen slightly jixf=571) hemolyzed GLUCOSE RANDOM (BEAKER) 139 mg/dL 70-105 (test hazt=141) CALCIUM (BEAKER) (test 9.9 mg/dL 8.4-10.2 jxie=198) AST (SGOT) (BEAKER) (test 376 U/L 5-34 Specimen slightly qyhq=974) hemolyzed ALT (SGPT) (BEAKER) (test 1109 U/L 6-55 Specimen slightly ojlm=510) hemolyzed EGFR (BEAKER) (test 7 mL/min/1.73 sq m ESTIMATED GFR IS NOT uofu=1689) ACCURATE CREATININE CLEARANCE IN PREDICTING GLOMERULAR FILTRATION RATE. ESTIMATED GFR IS NOT APPLICABLE FOR DIALYSIS PATIENTS. Specimen slightly [id number] 06:51:00 Test Item Value Reference Range Comments MAGNESIUM (BEAKER) (test 2.4 mg/dL 1.6-2.6 Specimen slightly hemolyzed iiiw=965) PROTHROMBIN TIME/[id number] 06:44:00 Test Item Value Reference Range Comments PROTIME (BEAKER) (test axnl=533) 20.7 seconds 11.9-14.2 INR (BEAKER) (test patl=698) 1.9 <=5.9 Effective 07/29/2018: PT Reference Range ChangeNew: 11.9-14.2 Previous: 11.7- 14.7RECOMMENDED COUMADIN/WARFARIN INR THERAPY RANGESSTANDARD DOSE: 2.0-3.0 Includes: PROPHYLAXIS for venous thrombosis, systemic embolization; TREATMENT for venous thrombosis and/or pulmonary embolus.HIGH RISK: Target INR is2.5-3.5 for patients wiht mechanical heart valves.[id number] 06:37:00 Test Item Value Reference Range Comments AMMONIA (BEAKER) (test 65 mol/L 18-72 Specimen slightly hemolyzed lngn=814) CBC W/PLT COUNT & AUTO [id number] 06:31:00 Test Item Value Reference Range Comments WHITE BLOOD CELL COUNT (BEAKER) (test hwvu=082) 15.7 K/ L 3.5-10.5 RED BLOOD CELL COUNT (BEAKER) (test rdle=848) 3.96 M/ L 4.63-6.08 HEMOGLOBIN (BEAKER) (test eikz=049) 12.2 GM/DL 13.7-17.5 HEMATOCRIT (BEAKER) (test qbht=343) 37.6 % 40.1-51.0 MEAN CORPUSCULAR VOLUME (BEAKER) (test lyqj=050) 94.9 fL 79.0-92.2 MEAN CORPUSCULAR HEMOGLOBIN (BEAKER) (test 30.8 pg 25.7-32.2 xdlq=388) MEAN CORPUSCULAR HEMOGLOBIN CONC (BEAKER) (test 32.4 GM/DL 32.3-36.5 xcmi=505) RED CELL DISTRIBUTION WIDTH (BEAKER) (test 17.7 % 11.6-14.4 pspo=264) PLATELET COUNT (BEAKER) (test bbmi=785) 157 K/CU MM 150-450 MEAN PLATELET VOLUME (BEAKER) (test ntpo=113) 11.1 fL 9.4-12.4 NUCLEATED RED BLOOD CELLS (BEAKER) (test 2 /100 WBC 0-0 calr=394) NEUTROPHILS RELATIVE PERCENT (BEAKER) (test 84 % vqgj=776) LYMPHOCYTES RELATIVE PERCENT (BEAKER) (test 5 % hcgd=171) MONOCYTES RELATIVE PERCENT (BEAKER) (test 10 % hrrb=541) EOSINOPHILS RELATIVE PERCENT (BEAKER) (test 0 % kpnf=503) BASOPHILS RELATIVE PERCENT (BEAKER) (test 0 % vrcp=162) NEUTROPHILS ABSOLUTE COUNT (BEAKER) (test 13.20 K/ L 1.78-5.38 tfcs=697) LYMPHOCYTES ABSOLUTE COUNT (BEAKER) (test 0.73 K/ L 1.32-3.57 wgtz=900) MONOCYTES ABSOLUTE COUNT (BEAKER) (test 1.51 K/ L 0.30-0.82 syib=026) EOSINOPHILS ABSOLUTE COUNT (BEAKER) (test 0.05 K/ L 0.04-0.54 luco=287) BASOPHILS ABSOLUTE COUNT (BEAKER) (test 0.03 K/ L 0.01-0.08 cpie=920) IMMATURE GRANULOCYTES-RELATIVE PERCENT (BEAKER) 1 % 0-1 (test msut=2216) POCT-GLUCOSE [id number] 05:38:00 Test Item Value Reference Range Comments POC-GLUCOSE METER (BEAKER) 154 mg/dL 70-110 TESTED AT [address] (test nepg=8690) [place] [id number] POCT-GLUCOSE [id number] 00:02:00 Test Item Value Reference Range Comments POC-GLUCOSE METER (BEAKER) 160 mg/dL 70-110 TESTED AT [address] (test dond=6574) [place] [id number] POCT-GLUCOSE [id number] 17:15:00 Test Item Value Reference Range Comments POC-GLUCOSE METER (BEAKER) 179 mg/dL 70-110 TESTED AT [address] (test tdlk=6163) [place] [id number] POCT-GLUCOSE [id number] 05:46:00 Test Item Value Reference Range Comments POC-GLUCOSE METER (BEAKER) 126 mg/dL 70-110 TESTED AT [address] (test cpta=4536) [place] [id number] CBC W/PLT COUNT & AUTO [id number] 04:13:00 Test Item Value Reference Range Comments WHITE BLOOD CELL COUNT (BEAKER) (test irat=798) 16.9 K/ L 3.5-10.5 RED BLOOD CELL COUNT (BEAKER) (test pfvk=943) 4.16 M/ L 4.63-6.08 HEMOGLOBIN (BEAKER) (test htuo=476) 13.1 GM/DL 13.7-17.5 HEMATOCRIT (BEAKER) (test qldc=171) 40.2 % 40.1-51.0 MEAN CORPUSCULAR VOLUME (BEAKER) (test xfln=309) 96.6 fL 79.0-92.2 MEAN CORPUSCULAR HEMOGLOBIN (BEAKER) (test 31.5 pg 25.7-32.2 njcs=883) MEAN CORPUSCULAR HEMOGLOBIN CONC (BEAKER) (test 32.6 GM/DL 32.3-36.5 iphm=072) RED CELL DISTRIBUTION WIDTH (BEAKER) (test 17.1 % 11.6-14.4 kpij=360) PLATELET COUNT (BEAKER) (test mroi=394) 202 K/CU MM 150-450 MEAN PLATELET VOLUME (BEAKER) (test owbi=419) 11.0 fL 9.4-12.4 NUCLEATED RED BLOOD CELLS (BEAKER) (test 2 /100 WBC 0-0 hqvo=190) NEUTROPHILS RELATIVE PERCENT (BEAKER) (test 85 % qykf=812) LYMPHOCYTES RELATIVE PERCENT (BEAKER) (test 6 % pmzj=829) MONOCYTES RELATIVE PERCENT (BEAKER) (test 8 % ycul=120) EOSINOPHILS RELATIVE PERCENT (BEAKER) (test 0 % vpoo=951) BASOPHILS RELATIVE PERCENT (BEAKER) (test 0 % wgmo=772) NEUTROPHILS ABSOLUTE COUNT (BEAKER) (test 14.25 K/ L 1.78-5.38 infc=084) LYMPHOCYTES ABSOLUTE COUNT (BEAKER) (test 0.97 K/ L 1.32-3.57 cfpf=026) MONOCYTES ABSOLUTE COUNT (BEAKER) (test 1.30 K/ L 0.30-0.82 jpem=015) EOSINOPHILS ABSOLUTE COUNT (BEAKER) (test 0.02 K/ L 0.04-0.54 tyxb=404) BASOPHILS ABSOLUTE COUNT (BEAKER) (test 0.04 K/ L 0.01-0.08 qkuz=825) IMMATURE GRANULOCYTES-RELATIVE PERCENT (BEAKER) 2 % 0-1 (test kclo=2247) TSH/FREE T4 IF [id number] 04:05:00 Test Item Value Reference Range Comments THYROID STIMULATING HORMONE (BEAKER) (test 0.85 uIU/mL 0.35-4.94 mhnb=810) [id number] 03:41:00 Test Item Value Reference Range Comments MAGNESIUM (BEAKER) (test ejkw=454) 2.5 mg/dL 1.6-2.6 COMPREHENSIVE METABOLIC [id number] 03:41:00 Test Item Value Reference Range Comments TOTAL PROTEIN (BEAKER) 6.4 gm/dL 6.0-8.3 (test xmpg=985) ALBUMIN (BEAKER) (test 3.6 g/dL 3.5-5.0 dzog=7676) ALKALINE PHOSPHATASE 70 U/L 40-150 (BEAKER) (test ucwm=188) BILIRUBIN TOTAL (BEAKER) 3.3 mg/dL 0.2-1.2 (test ibmd=637) SODIUM (BEAKER) (test 136 meq/L 136-145 jddl=320) POTASSIUM (BEAKER) (test 5.2 meq/L 3.5-5.1 lucv=826) CHLORIDE (BEAKER) (test 92 meq/L 98-107 rint=372) CO2 (BEAKER) (test 18 meq/L 22-29 dgjn=210) BLOOD UREA NITROGEN 85 mg/dL 7-21 (BEAKER) (test vzqw=882) CREATININE (BEAKER) (test 9.03 mg/dL 0.57-1.25 xmgu=878) GLUCOSE RANDOM (BEAKER) 130 mg/dL 70-105 (test bqqj=838) CALCIUM (BEAKER) (test 10.0 mg/dL 8.4-10.2 fsxu=587) AST (SGOT) (BEAKER) (test 859 U/L 5-34 akwo=915) ALT (SGPT) (BEAKER) (test 1588 U/L 6-55 gxgr=178) EGFR (BEAKER) (test 6 mL/min/1.73 sq m ESTIMATED GFR IS NOT ummk=7043) ACCURATE CREATININE CLEARANCE IN PREDICTING GLOMERULAR FILTRATION RATE. ESTIMATED GFR IS NOT APPLICABLE FOR DIALYSIS PATIENTS. Specimen slightly ictericPROTHROMBIN TIME/[id number] 03:29:00 Test Item Value Reference Range Comments PROTIME (BEAKER) (test jstf=318) 25.5 seconds 11.9-14.2 INR (BEAKER) (test nxoz=998) 2.5 <=5.9 RECOMMENDED COUMADIN/WARFARIN INR THERAPY RANGESSTANDARD DOSE: 2.0 - 3.0 Includes: PROPHYLAXIS forvenous thrombosis, systemic embolization; TREATMENT for venous thrombosis and/or pulmonary embolus.HIGH RISK: Target INR is 2.5-3.5 for patients with mechanical heart valves.POCT-GLUCOSE [id number] 23:42:00 Test Item Value Reference Range Comments POC-GLUCOSE METER (BEAKER) 79 mg/dL 70-110 TESTED AT [facility] [address] [place] [address] (test ybmp=7647) [facility] [address] POCT-GLUCOSE [id number] 23:34:00 Test Item Value Reference Range Comments POC-GLUCOSE METER (BEAKER) 75 mg/dL 70-110 TESTED AT [address] (test wpju=9097) [facility] [address] POCT-GLUCOSE [id number] 18:28:00 Test Item Value Reference Range Comments POC-GLUCOSE METER (BEAKER) 87 mg/dL 70-110 TESTED AT [address] (test rxnw=1848) [facility] [address] LACTIC ACID, [id number] 14:47:00 Test Item Value Reference Range Comments LACTATE BLOOD VENOUS (2) (BEAKER) (test 5.3 mmol/L 0.5-2.2 bocb=1178) Specimen slightly ictericBASIC METABOLIC [id number] 14:40:00 Test Item Value Reference Range Comments SODIUM (BEAKER) (test 138 meq/L 136-145 axja=282) POTASSIUM (BEAKER) (test 5.0 meq/L 3.5-5.1 Specimen slightly vfds=858) hemolyzed CHLORIDE (BEAKER) (test 94 meq/L 98-107 hhgk=112) CO2 (BEAKER) (test 21 meq/L 22-29 kjik=418) BLOOD UREA NITROGEN 69 mg/dL 7-21 (BEAKER) (test xkyt=474) CREATININE (BEAKER) (test 8.21 mg/dL 0.57-1.25 Specimen slightly tsws=888) hemolyzed GLUCOSE RANDOM (BEAKER) 84 mg/dL 70-105 (test fflc=867) CALCIUM (BEAKER) (test 9.6 mg/dL 8.4-10.2 eeeo=106) EGFR (BEAKER) (test 6 mL/min/1.73 sq m ESTIMATED GFR IS NOT oglt=6366) ACCURATE CREATININE CLEARANCE IN PREDICTING GLOMERULAR FILTRATION RATE. ESTIMATED GFR IS NOT APPLICABLE FOR DIALYSIS PATIENTS. Specimen slightly [id number] 14:34:00 Test Item Value Reference Range Comments PARTIAL THROMBOPLASTIN TIME (BEAKER) (test 91.0 seconds 22.5-36.0 birs=412) [id number] 14:30:00 Test Item Value Reference Range Comments AMMONIA (BEAKER) (test hima=550) 96 mol/L 18-72 POCT-GLUCOSE [id number] 13:06:00 Test Item Value Reference Range Comments POC-GLUCOSE METER (BEAKER) 87 mg/dL 70-110 TESTED AT [facility] [address] (test axym=2481) [place] [address] CD4 T CELL [id number] 09:28:00 Test Item Value Reference Range Comments TOTAL LYMPHOCYTES FC (BEAKER) (test ygny=0227) 679 /cu mm CD3+ TOTAL T CELLS % FC (BEAKER) (test zppl=2228) 81 % 49-84 CD3+ TOTAL T CELLS ABSOLUTE FC (BEAKER) (test 553 /cu mm 603-2,990 qyer=8805) CD3+/CD8+ T SUPPRESSOR CELLS % FC (BEAKER) (test 13 % 10-40 mukl=6473) CD3+/CD8+ T SUPPRESSOR CELLS ABS FC (BEAKER) 86 /cu mm 125-1,312 (test qoks=6726) CD3+/CD4+ T HELPER CELLS % FC (BEAKER) (test 69 % 28-63 tcjg=4731) CD3+/CD4+ T HELPER CELLS ABS FC (BEAKER) (test 468 /cu mm 441-2,156 flak=1528) CD4/CD8 RATIO FC (BEAKER) (test ydhq=7449) 5.46 0.70-3.23 CD16+/CD56+ NATURAL KILLER CELLS % FC (BEAKER) 11 % 4-25 (test xqgy=9685) CD16+/CD56+ NATURAL KILLER CELLS ABS FC (BEAKER) 72 /cu mm 95-640 (test ggli=0346) CD19+ TOTAL B CELLS % FC (BEAKER) (test 7 % 6-27 yfkv=0665) CD19+ TOTAL B CELLS ABS FC (BEAKER) (test 49 /cu mm 107-698 uhph=2343) CBC W/PLT COUNT & AUTO [id number] 08:53:00 Test Item Value Reference Range Comments WHITE BLOOD CELL COUNT (BEAKER) (test venq=072) 19.6 K/ L 3.5-10.5 RED BLOOD CELL COUNT (BEAKER) (test przz=073) 4.06 M/ L 4.63-6.08 HEMOGLOBIN (BEAKER) (test nrum=303) 12.5 GM/DL 13.7-17.5 HEMATOCRIT (BEAKER) (test nggd=899) 40.2 % 40.1-51.0 MEAN CORPUSCULAR VOLUME (BEAKER) (test nmzv=161) 99.0 fL 79.0-92.2 MEAN CORPUSCULAR HEMOGLOBIN (BEAKER) (test 30.8 pg 25.7-32.2 hdvd=248) MEAN CORPUSCULAR HEMOGLOBIN CONC (BEAKER) (test 31.1 GM/DL 32.3-36.5 zlex=715) RED CELL DISTRIBUTION WIDTH (BEAKER) (test 16.5 % 11.6-14.4 iomu=669) PLATELET COUNT (BEAKER) (test gcfy=691) 170 K/CU MM 150-450 MEAN PLATELET VOLUME (BEAKER) (test drnt=062) 11.3 fL 9.4-12.4 NUCLEATED RED BLOOD CELLS (BEAKER) (test 2 /100 WBC 0-0 vnuy=994) (CELLAVISION MANUAL DIFF)2018-07-28 08:53:00 Test Item Value Reference Range Comments NEUTROPHILS - REL (CELLAVISION)(BEAKER) (test 90 % yclt=7132) LYMPHOCYTES - REL (CELLAVISION)(BEAKER) (test 3 % ihqk=8838) MONOCYTES - REL (CELLAVISION)(BEAKER) (test 4 % yuoc=4660) BANDS - REL (CELLAVISION)(BEAKER) (test 3 % 0-10 revl=0688) NEUTROPHILS - ABS (CELLAVISION)(BEAKER) (test 17.64 K/ul 1.78-5.38 mtly=3501) LYMPHOCYTES - ABS (CELLAVISION)(BEAKER) (test 0.59 K/ul 1.32-3.57 muky=1910) MONOCYTES - ABS (CELLAVISION)(BEAKER) (test 0.78 K/uL 0.30-0.82 eslg=2154) BANDS - ABS (CELLAVISION)(BEAKER) (test 0.59 K/uL 0.00-0.80 yjlq=5954) TOTAL COUNTED (BEAKER) (test vkvq=0086) 100 WBC MORPHOLOGY (BEAKER) (test kakd=988) Normal PLT MORPHOLOGY (BEAKER) (test ylbj=070) Normal ANISOCYTOSIS (BEAKER) (test vmle=430) 1+ few MACROCYTES (BEAKER) (test jccs=381) 1+ few POIKILOCYTES (BEAKER) (test tzqz=861) 1+ few ARTIFACT (CELLAVISION)(BEAKER) (test yfkj=9573) Present PLATELET CONCENTRATION (CELLAVISION)(BEAKER) Adequate (test tksj=9893) Received comment: User comments: Slide comments:[id number] 08:35:00 Test Item Value Reference Range Comments PARTIAL THROMBOPLASTIN TIME (BEAKER) (test 74.6 seconds 22.5-36.0 ilfp=529) PROTHROMBIN [id number] 08:34:00 Test Item Value Reference Range Comments PROTIME (BEAKER) (test hnoc=088) 25.2 seconds 11.7-14.7 INR (BEAKER) (test pjqb=453) 2.4 <=5.9 RECOMMENDED COUMADIN/WARFARIN INR THERAPY RANGESSTANDARD DOSE: 2.0 - 3.0 Includes: PROPHYLAXIS forvenous thrombosis, systemic embolization; TREATMENT for venous thrombosis and/or pulmonary embolus.HIGH RISK: Target INR is 2.5-3.5 for patients with mechanical heart valves.LACTIC ACID, [id number] 08:32:00 Test Item Value Reference Range Comments LACTATE BLOOD VENOUS (2) 5.7 mmol/L 0.5-2.2 Specimen slightly hemolyzed (BEAKER) (test volb=8926) POCT-GLUCOSE [id number] 08:20:00 Test Item Value Reference Range Comments POC-GLUCOSE METER (BEAKER) 88 mg/dL 70-110 TESTED AT [facility] [address] [facility] (test nxtp=9286) [facility] [address] [id number] 05:11:00 Test Item Value Reference Range Comments PHOSPHORUS (BEAKER) (test bbnv=418) 10.5 mg/dL 2.3-4.7 COMPREHENSIVE METABOLIC [id number] 04:58:00 Test Item Value Reference Range Comments TOTAL PROTEIN (BEAKER) 6.3 gm/dL 6.0-8.3 (test rrdc=450) ALBUMIN (BEAKER) (test 3.5 g/dL 3.5-5.0 xkka=3740) ALKALINE PHOSPHATASE 65 U/L 40-150 (BEAKER) (test jyhc=714) BILIRUBIN TOTAL (BEAKER) 2.3 mg/dL 0.2-1.2 (test mrij=830) SODIUM (BEAKER) (test 139 meq/L 136-145 ooch=818) POTASSIUM (BEAKER) (test 5.0 meq/L 3.5-5.1 mslc=033) CHLORIDE (BEAKER) (test 95 meq/L 98-107 sjre=132) CO2 (BEAKER) (test 22 meq/L 22-29 uvby=820) BLOOD UREA NITROGEN 61 mg/dL 7-21 (BEAKER) (test fjxk=648) CREATININE (BEAKER) (test 7.77 mg/dL 0.57-1.25 osiy=957) GLUCOSE RANDOM (BEAKER) 79 mg/dL 70-105 (test hrgs=181) CALCIUM (BEAKER) (test 9.8 mg/dL 8.4-10.2 nzwx=112) AST (SGOT) (BEAKER) (test 1175 U/L 5-34 yxfx=340) ALT (SGPT) (BEAKER) (test 1724 U/L 6-55 sfql=400) EGFR (BEAKER) (test 7 mL/min/1.73 sq m ESTIMATED GFR IS NOT fyqe=5560) ACCURATE CREATININE CLEARANCE IN PREDICTING GLOMERULAR FILTRATION RATE. ESTIMATED GFR IS NOT APPLICABLE FOR DIALYSIS PATIENTS. Specimen slightly ictericPTH, [id number] 04:57:00 Test Item Value Reference Range Comments PARATHYROID HORMONE INTACT (BEAKER) (test 578.6 pg/mL 8.5-72.5 lstf=210) [id number] 02:13:00 Test Item Value Reference Range Comments PARTIAL THROMBOPLASTIN TIME (BEAKER) (test 53.4 seconds 22.5-36.0 zlgw=789) [id number] 01:40:00 Test Item Value Reference Range Comments PARTIAL THROMBOPLASTIN TIME (BEAKER) (test > seconds 22.5-36.0 hbnt=642) BASIC METABOLIC [id number] 00:55:00 Test Item Value Reference Range Comments SODIUM (BEAKER) (test 136 meq/L 136-145 eyuc=625) POTASSIUM (BEAKER) (test 4.8 meq/L 3.5-5.1 xprt=532) CHLORIDE (BEAKER) (test 95 meq/L 98-107 oznu=373) CO2 (BEAKER) (test 20 meq/L 22-29 auaw=267) BLOOD UREA NITROGEN 54 mg/dL 7-21 (BEAKER) (test uppm=547) CREATININE (BEAKER) (test 7.39 mg/dL 0.57-1.25 bgks=932) GLUCOSE RANDOM (BEAKER) 106 mg/dL 70-105 (test quhp=120) CALCIUM (BEAKER) (test 9.6 mg/dL 8.4-10.2 rmjp=595) EGFR (BEAKER) (test 7 mL/min/1.73 sq m ESTIMATED GFR IS NOT wqij=3106) ACCURATE CREATININE CLEARANCE IN PREDICTING GLOMERULAR FILTRATION RATE. ESTIMATED GFR IS NOT APPLICABLE FOR DIALYSIS PATIENTS. Specimen slightly ictericPOCT-GLUCOSE [id number] 00:15:00 Test Item Value Reference Range Comments POC-GLUCOSE METER (BEAKER) 123 mg/dL 70-110 TESTED AT [address] (test ggaf=2797) [place] [address] POCT-GLUCOSE [id number] 18:01:00 Test Item Value Reference Range Comments POC-GLUCOSE METER (BEAKER) 90 mg/dL 70-110 TESTED AT [address] (test tmka=4739) [place] [address] [id number] 17:47:00 Test Item Value Reference Range Comments PARTIAL THROMBOPLASTIN TIME (BEAKER) (test 56.1 seconds 22.5-36.0 rvtx=281) POCT-GLUCOSE [id number] 17:27:00 Test Item Value Reference Range Comments POC-GLUCOSE METER (BEAKER) 99 mg/dL 70-110 TESTED AT [address] (test trjg=0567) [place] [address] RESPIRATORY PANEL [id number] 10:42:00 Test Item Value Reference Range Comments HUMAN METAPNEUMOVIRUS (BEAKER) (test Not detected Not detected, Equivocal brnz=6163) RHINOVIRUS (BEAKER) (test vzux=0957) Not detected Not detected, Equivocal INFLUENZA A (BEAKER) (test akxk=9875) Not detected Not detected, Equivocal INFLUENZA A (NO SUBTYPE) (test Not detected, Equivocal bkgt=7942) INFLUENZA A SUBTYPE H1 (BEAKER) (test Not detected, Equivocal zdwc=7350) INFLUENZA A SUBTYPE H3 (BEAKER) (test Not detected, Equivocal vtuo=4823) INFLUENZA A SUBTYPE H1-2009 (BEAKER) Not detected, Equivocal (test ydwq=5052) INFLUENZA B (BEAKER) (test wfkt=9986) Not detected Not detected, Equivocal RESPIRATORY SYNCYTIAL VIRUS (BEAKER) Not detected Not detected, Equivocal (test boeh=9529) PARAINFLUENZA VIRUS 1 (BEAKER) (test Not detected Not detected, Equivocal vanc=9246) PARAINFLUENZA VIRUS 2 (BEAKER) (test Not detected Not detected, Equivocal eqre=4446) PARAINFLUENZA VIRUS 3 (BEAKER) (test Not detected Not detected, Equivocal ivjz=8211) PARAINFLUENZA VIRUS 4 (BEAKER) (test Not detected Not detected, Equivocal jadn=0998) ADENOVIRUS (BEAKER) (test wyhi=6010) Not detected Not detected, Equivocal CORONAVIRUS 229E (BEAKER) (test Not detected Not detected, Equivocal rqgz=4535) CORONAVIRUS HKU1 (BEAKER) (test Not detected Not detected, Equivocal ulre=9618) CORONAVIRUS NL63 (BEAKER) (test Not detected Not detected, Equivocal bsjg=7550) CORONAVIRUS OC43 (BEAKER) (test Not detected Not detected, Equivocal vrio=1890) BORDETELLA PERTUSSIS (BEAKER) (test Not detected Not detected, Equivocal uhfg=6842) CHLAMYDOPHILA PNEUMONIAE (BEAKER) (test Not detected Not detected, Equivocal tjyc=3642) MYCOPLASMA PNEUMONIAE (BEAKER) (test Not detected Not detected, Equivocal debg=3400) Other viruses and bacteria not targeted by this PCR panel cannot be excluded; therefore clinical correlation and follow up of serology, culture results, and other molecular studies is required. The results are not intended to be used as the sole means for clinical diagnosis or patient management decisions. This sample was tested at the [facility] using the [employer] Respiratory Panel. It is FDA cleared and has been verified and approved by the [facility] for clinical use on nasopharyngeal swab specimens.The performance of the [employer] has not been established in individuals who received influenza vaccine. Recent administration ofa nasal influenza vaccine may cause false positive results for Influenza A and/orInfluenza B.PT/[id number] 10:30:00 Test Item Value Reference Range Comments PROTIME (BEAKER) (test lnak=703) 22.7 seconds 11.7-14.7 INR (BEAKER) (test mfvy=734) 2.1 <=5.9 PARTIAL THROMBOPLASTIN TIME (BEAKER) (test 51.6 seconds 22.5-36.0 cehs=892) RECOMMENDED COUMADIN/WARFARIN INR THERAPY RANGESSTANDARD DOSE: 2.0 - 3.0 Includes: PROPHYLAXIS forvenous thrombosis, systemic embolization; TREATMENT for venous thrombosis and/or pulmonary embolus.HIGH RISK: Target INR is 2.5-3.5 for patients with mechanical heart valves.HEPATITIS B SURFACE [id number] 09:41:00 Test Item Value Reference Range Comments HEPATITIS B SURFACE ANTIGEN (2) (BEAKER) (test Nonreactive Nonreactive cxkz=0174) For chronic HD patients, draw HBsAg with each admission then every 30 days.TROPONIN [id number] 07:24:00 Test Item Value Reference Range Comments TROPONIN I (BEAKER) (test koao=154) 0.98 ng/mL 0.00-0.03 Troponin I (TnI) levels [...] acidosis, acute neurological disease, and persistent tachyarrhythmia.POCT-GLUCOSE [id number] 06:38:00 Test Item Value Reference Range Comments POC-GLUCOSE METER (BEAKER) 108 mg/dL 70-110 TESTED AT [facility] [address] [facility] (test wrqf=2691) [facility] [address] TROPONIN [id number] 02:40:00 Test Item Value Reference Range Comments TROPONIN I (BEAKER) (test ekyx=529) 1.10 ng/mL 0.00-0.03 Troponin I (TnI) levels [...] acute neurological disease, and persistent tachyarrhythmia.COMPREHENSIVE METABOLIC [id number] 02:40:00 Test Item Value Reference Range Comments TOTAL PROTEIN (BEAKER) 6.6 gm/dL 6.0-8.3 (test kmzn=383) ALBUMIN (BEAKER) (test 3.7 g/dL 3.5-5.0 thcv=8925) ALKALINE PHOSPHATASE 58 U/L 40-150 (BEAKER) (test vubz=644) BILIRUBIN TOTAL (BEAKER) 1.6 mg/dL 0.2-1.2 (test utpt=374) SODIUM (BEAKER) (test 138 meq/L 136-145 oqps=574) POTASSIUM (BEAKER) (test 4.9 meq/L 3.5-5.1 rsmk=054) CHLORIDE (BEAKER) (test 94 meq/L 98-107 ryyv=308) CO2 (BEAKER) (test 21 meq/L 22-29 ukph=693) BLOOD UREA NITROGEN 99 mg/dL 7-21 (BEAKER) (test xmhr=233) CREATININE (BEAKER) (test 10.86 mg/dL 0.57-1.25 omya=395) GLUCOSE RANDOM (BEAKER) 126 mg/dL 70-105 (test wais=472) CALCIUM (BEAKER) (test 10.5 mg/dL 8.4-10.2 phot=678) AST (SGOT) (BEAKER) (test 1853 U/L 5-34 ekxi=415) ALT (SGPT) (BEAKER) (test 1752 U/L 6-55 qibw=726) EGFR (BEAKER) (test 5 mL/min/1.73 sq m ESTIMATED GFR IS NOT csnt=3536) ACCURATE CREATININE CLEARANCE IN PREDICTING GLOMERULAR FILTRATION RATE. ESTIMATED GFR IS NOT APPLICABLE FOR DIALYSIS PATIENTS. [id number] 02:39:00 Test Item Value Reference Range Comments PHOSPHORUS (BEAKER) (test ftqt=929) 12.8 mg/dL 2.3-4.7 CBC W/PLT COUNT & AUTO [id number] 02:33:00 Test Item Value Reference Range Comments WHITE BLOOD CELL COUNT (BEAKER) (test fajt=643) 13.2 K/ L 3.5-10.5 RED BLOOD CELL COUNT (BEAKER) (test ylen=073) 3.75 M/ L 4.63-6.08 HEMOGLOBIN (BEAKER) (test amle=820) 11.6 GM/DL 13.7-17.5 HEMATOCRIT (BEAKER) (test hkmu=611) 35.4 % 40.1-51.0 MEAN CORPUSCULAR VOLUME (BEAKER) (test gtqo=745) 94.4 fL 79.0-92.2 MEAN CORPUSCULAR HEMOGLOBIN (BEAKER) (test 30.9 pg 25.7-32.2 gppk=590) MEAN CORPUSCULAR HEMOGLOBIN CONC (BEAKER) (test 32.8 GM/DL 32.3-36.5 dobn=820) RED CELL DISTRIBUTION WIDTH (BEAKER) (test 15.4 % 11.6-14.4 gmdo=406) PLATELET COUNT (BEAKER) (test vsdl=574) 144 K/CU MM 150-450 MEAN PLATELET VOLUME (BEAKER) (test khll=285) 11.1 fL 9.4-12.4 NUCLEATED RED BLOOD CELLS (BEAKER) (test 1 /100 WBC 0-0 lgcx=557) NEUTROPHILS RELATIVE PERCENT (BEAKER) (test 82 % netd=827) LYMPHOCYTES RELATIVE PERCENT (BEAKER) (test 6 % hejy=764) MONOCYTES RELATIVE PERCENT (BEAKER) (test 10 % raxf=528) EOSINOPHILS RELATIVE PERCENT (BEAKER) (test 1 % bysc=522) BASOPHILS RELATIVE PERCENT (BEAKER) (test 0 % kbow=421) NEUTROPHILS ABSOLUTE COUNT (BEAKER) (test 10.82 K/ L 1.78-5.38 wgna=974) LYMPHOCYTES ABSOLUTE COUNT (BEAKER) (test 0.84 K/ L 1.32-3.57 zkfm=713) MONOCYTES ABSOLUTE COUNT (BEAKER) (test 1.32 K/ L 0.30-0.82 isyw=268) EOSINOPHILS ABSOLUTE COUNT (BEAKER) (test 0.08 K/ L 0.04-0.54 tejp=795) BASOPHILS ABSOLUTE COUNT (BEAKER) (test 0.04 K/ L 0.01-0.08 dxoy=634) IMMATURE GRANULOCYTES-RELATIVE PERCENT (BEAKER) 1 % 0-1 (test fpte=2045) BASIC METABOLIC [id number] 02:32:00 Test Item Value Reference Range Comments SODIUM (BEAKER) (test 138 meq/L 136-145 sovi=974) POTASSIUM (BEAKER) (test 4.9 meq/L 3.5-5.1 auan=971) CHLORIDE (BEAKER) (test 94 meq/L 98-107 krtc=424) CO2 (BEAKER) (test 21 meq/L 22-29 hxbx=455) BLOOD UREA NITROGEN 99 mg/dL 7-21 (BEAKER) (test uesw=081) CREATININE (BEAKER) (test 10.86 mg/dL 0.57-1.25 zidd=186) GLUCOSE RANDOM (BEAKER) 126 mg/dL 70-105 (test mdmm=648) CALCIUM (BEAKER) (test 10.5 mg/dL 8.4-10.2 ofoa=327) EGFR (BEAKER) (test 5 mL/min/1.73 sq m ESTIMATED GFR IS NOT ewfn=5349) ACCURATE CREATININE CLEARANCE IN PREDICTING GLOMERULAR FILTRATION RATE. ESTIMATED GFR IS NOT APPLICABLE FOR DIALYSIS PATIENTS. [id number] 02:26:00 Test Item Value Reference Range Comments PARTIAL THROMBOPLASTIN TIME (BEAKER) (test 49.1 seconds 22.5-36.0 uitw=409) LACTIC ACID, [id number] 02:00:00 Test Item Value Reference Range Comments LACTATE BLOOD VENOUS (2) (BEAKER) (test 2.7 mmol/L 0.5-2.2 ztur=7210) POCT-GLUCOSE [id number] 23:58:00 Test Item Value Reference Range Comments POC-GLUCOSE METER (BEAKER) 105 mg/dL 70-110 TESTED AT [address] (test pthz=1135) [facility] [address] BLOOD GAS, [id number] 22:15:00 Test Item Value Reference Range Comments PH ARTERIAL (BEAKER) (test egpy=894) 7.39 7.35-7.45 PCO2 ARTERIAL (BEAKER) (test jpkq=929) 36 mmHg 35-45 PO2 ARTERIAL (BEAKER) (test hmwe=739) 209 mmHg 80-90 O2 SATURATION ARTERIAL (BEAKER) (test soyj=781) 99.4 % 96.0-97.0 HCO3 ARTERIAL (BEAKER) (test cfiz=851) 21 mmol/L 21-29 BASE EXCESS ARTERIAL (BEAKER) (test njtj=073) -3.3 mmol/L -2.0-3.0 PATIENT TEMPERATURE (BEAKER) (test hgnv=7604) 36.5 C FIO2 (BEAKER) (test bbep=6988) 50.0 % HEMOGLOBIN [id number] 21:35:00 Test Item Value Reference Range Comments HEMOGLOBIN A1C (BEAKER) (test evit=810) 5.8 % 4.3-6.1 TROPONIN [id number] 21:06:00 Test Item Value Reference Range Comments TROPONIN I (BEAKER) (test itsa=712) 1.34 ng/mL 0.00-0.03 Troponin I (TnI) levels [...] acute neurological disease, and persistent tachyarrhythmia.BASIC METABOLIC [id number] 20:49:00 Test Item Value Reference Range Comments SODIUM (BEAKER) (test 136 meq/L 136-145 dggk=277) POTASSIUM (BEAKER) (test 5.9 meq/L 3.5-5.1 Specimen slightly shok=949) hemolyzed CHLORIDE (BEAKER) (test 94 meq/L 98-107 hlgt=378) CO2 (BEAKER) (test 19 meq/L 22-29 zawp=129) BLOOD UREA NITROGEN 93 mg/dL 7-21 (BEAKER) (test zrwh=212) CREATININE (BEAKER) (test 10.26 mg/dL 0.57-1.25 Specimen slightly ttvu=999) hemolyzed GLUCOSE RANDOM (BEAKER) 65 mg/dL 70-105 (test hwrv=553) CALCIUM (BEAKER) (test 10.6 mg/dL 8.4-10.2 hbrk=305) EGFR (BEAKER) (test 5 mL/min/1.73 sq m ESTIMATED GFR IS NOT aqga=6420) ACCURATE CREATININE CLEARANCE IN PREDICTING GLOMERULAR FILTRATION RATE. ESTIMATED GFR IS NOT APPLICABLE FOR DIALYSIS PATIENTS. LACTIC ACID, [id number] 20:44:00 Test Item Value Reference Range Comments LACTATE BLOOD VENOUS (2) 3.1 mmol/L 0.5-2.2 Specimen slightly hemolyzed (BEAKER) (test gltv=8501) [id number] 20:38:00 Test Item Value Reference Range Comments PARTIAL THROMBOPLASTIN TIME (BEAKER) (test 37.2 seconds 22.5-36.0 jsjn=392) POCT-GLUCOSE [id number] 19:57:00 Test Item Value Reference Range Comments POC-GLUCOSE METER (BEAKER) 84 mg/dL 70-110 TESTED AT [address] (test ejpn=3940) [place] [id number], BRAIN, WITHOUT [id number] 19:39:00FINAL REPORT CT Head without contrast CLINICAL [...] Vega Verified Date/Time: 07/26/2018 19:39:58 Reading Location: [facility] C013T Transitional Reading Room POCT-GLUCOSE [id number] 19:06:00 Test Item Value Reference Range Comments POC-GLUCOSE METER (BEAKER) 61 mg/dL 70-110 TESTED AT [address] (test uqfz=2426) [facility] [address] POCT-GLUCOSE [id number] 14:25:00 Test Item Value Reference Range Comments POC-GLUCOSE METER (BEAKER) 85 mg/dL 70-110 TESTED AT [facility] [address] (test imai=5875) [place] [address] CBC W/PLT COUNT & AUTO [id number] 13:27:00 Test Item Value Reference Range Comments WHITE BLOOD CELL COUNT (BEAKER) (test dxgh=380) 14.8 K/ L 3.5-10.5 RED BLOOD CELL COUNT (BEAKER) (test hgtb=003) 3.85 M/ L 4.63-6.08 HEMOGLOBIN (BEAKER) (test hqdo=043) 12.0 GM/DL 13.7-17.5 HEMATOCRIT (BEAKER) (test yfiz=818) 36.5 % 40.1-51.0 MEAN CORPUSCULAR VOLUME (BEAKER) (test elep=037) 94.8 fL 79.0-92.2 MEAN CORPUSCULAR HEMOGLOBIN (BEAKER) (test 31.2 pg 25.7-32.2 lcyy=346) MEAN CORPUSCULAR HEMOGLOBIN CONC (BEAKER) (test 32.9 GM/DL 32.3-36.5 lrdz=786) RED CELL DISTRIBUTION WIDTH (BEAKER) (test 15.5 % 11.6-14.4 hqwh=086) PLATELET COUNT (BEAKER) (test pumy=827) 156 K/CU MM 150-450 MEAN PLATELET VOLUME (BEAKER) (test svyq=845) 11.0 fL 9.4-12.4 NUCLEATED RED BLOOD CELLS (BEAKER) (test 0 /100 WBC 0-0 vpwa=185) (CELLAVISION MANUAL DIFF)2018-07-26 13:27:00 Test Item Value Reference Range Comments NEUTROPHILS - REL (CELLAVISION)(BEAKER) (test 86 % tekr=5089) LYMPHOCYTES - REL (CELLAVISION)(BEAKER) (test 2 % owpy=7141) MONOCYTES - REL (CELLAVISION)(BEAKER) (test 11 % blqk=1682) EOSINOPHILS - REL (CELLAVISION)(BEAKER) (test 1 % wlvq=8555) NEUTROPHILS - ABS (CELLAVISION)(BEAKER) (test 12.73 K/ul 1.78-5.38 ggyl=6778) LYMPHOCYTES - ABS (CELLAVISION)(BEAKER) (test 0.30 K/ul 1.32-3.57 hlvl=4132) MONOCYTES - ABS (CELLAVISION)(BEAKER) (test 1.63 K/uL 0.30-0.82 easq=2404) EOSINOPHILS - ABS (CELLAVISION)(BEAKER) (test 0.15 K/uL 0.04-0.54 bivb=0332) TOTAL COUNTED (BEAKER) (test vtad=6459) 100 WBC MORPHOLOGY (BEAKER) (test lmcx=395) Normal PLT MORPHOLOGY (BEAKER) (test jiqr=865) Normal ANISOCYTOSIS (BEAKER) (test ujzl=590) 1+ few POIKILOCYTES (BEAKER) (test xyyh=793) 1+ few ARTIFACT (CELLAVISION)(BEAKER) (test vxgk=9585) Present PLATELET CONCENTRATION (CELLAVISION)(BEAKER) Adequate (test kara=2941) Received comment: User comments: Slide comments:[id number] 13:23:00 Test Item Value Reference Range Comments PROCALCITONIN (BEAKER) (test yeud=7900) 0.72 ng/mL <0.05 SEPSIS RISK (ng/mL)Low: 0.05-0.50Intermediate: 0.51-2.00High: & gt;=2.01TROPONIN [id number] 12:55:00 Test Item Value Reference Range Comments TROPONIN I (BEAKER) (test njms=817) 1.34 ng/mL 0.00-0.03 Troponin I (TnI) levels [...] acute neurological disease, and persistent tachyarrhythmia.COMPREHENSIVE METABOLIC [id number] 12:50:00 Test Item Value Reference Range Comments TOTAL PROTEIN (BEAKER) 6.6 gm/dL 6.0-8.3 (test bohz=025) ALBUMIN (BEAKER) (test 3.8 g/dL 3.5-5.0 hspp=4402) ALKALINE PHOSPHATASE 56 U/L 40-150 (BEAKER) (test kzni=627) BILIRUBIN TOTAL (BEAKER) 1.4 mg/dL 0.2-1.2 (test fjsx=361) SODIUM (BEAKER) (test 135 meq/L 136-145 iehy=110) POTASSIUM (BEAKER) (test 5.7 meq/L 3.5-5.1 hncd=923) CHLORIDE (BEAKER) (test 94 meq/L 98-107 lpug=526) CO2 (BEAKER) (test 19 meq/L 22-29 qfhw=602) BLOOD UREA NITROGEN 90 mg/dL 7-21 (BEAKER) (test ccqj=196) CREATININE (BEAKER) (test 9.76 mg/dL 0.57-1.25 dwth=586) GLUCOSE RANDOM (BEAKER) 88 mg/dL 70-105 (test zcmf=541) CALCIUM (BEAKER) (test 10.4 mg/dL 8.4-10.2 kili=683) AST (SGOT) (BEAKER) (test 2387 U/L 5-34 czak=475) ALT (SGPT) (BEAKER) (test 1730 U/L 6-55 rymh=393) EGFR (BEAKER) (test 5 mL/min/1.73 sq m ESTIMATED GFR IS NOT gopl=8486) ACCURATE CREATININE CLEARANCE IN PREDICTING GLOMERULAR FILTRATION RATE. ESTIMATED GFR IS NOT APPLICABLE FOR DIALYSIS PATIENTS. PROTHROMBIN TIME/[id number] 12:47:00 Test Item Value Reference Range Comments PROTIME (BEAKER) (test baam=454) 23.2 seconds 11.7-14.7 INR (BEAKER) (test kcte=184) 2.2 <=5.9 RECOMMENDED COUMADIN/WARFARIN INR THERAPY RANGESSTANDARD DOSE: 2.0 - 3.0 Includes: PROPHYLAXIS forvenous thrombosis, systemic embolization; TREATMENT for venous thrombosis and/or pulmonary embolus.HIGH RISK: Target INR is 2.5-3.5 for patients with mechanical heart valves.B-TYPE NATRIURETIC FACTOR (BNP)2018-07 12:47:00 Test Item Value Reference Range Comments B-TYPE NATRIURETIC PEPTIDE (BEAKER) (test 4832 pg/mL 0-100 ytqt=817) [id number] 12:45:00 Test Item Value Reference Range Comments LIPASE (BEAKER) (test qvmt=538) 18 U/L 8-78 HEPATIC FUNCTION [id number] 12:45:00 Test Item Value Reference Range Comments TOTAL PROTEIN (BEAKER) (test yfhr=289) 6.6 gm/dL 6.0-8.3 ALBUMIN (BEAKER) (test gdit=6482) 3.8 g/dL 3.5-5.0 BILIRUBIN TOTAL (BEAKER) (test fopv=914) 1.4 mg/dL 0.2-1.2 BILIRUBIN DIRECT (BEAKER) (test obcy=732) 1.1 mg/dL 0.1-0.5 ALKALINE PHOSPHATASE (BEAKER) (test jhsy=655) 56 U/L 40-150 AST (SGOT) (BEAKER) (test dcsj=299) 2387 U/L 5-34 ALT (SGPT) (BEAKER) (test xfdd=451) 1730 U/L 6-55 LACTIC ACID, [id number] 12:39:00 Test Item Value Reference Range Comments LACTATE BLOOD VENOUS (2) 3.2 mmol/L 0.5-2.2 Specimen slightly hemolyzed (BEAKER) (test ohrs=1365) BLOOD GAS, [id number] 12:25:00 Test Item Value Reference Range Comments PH ARTERIAL (BEAKER) (test qfwj=994) 7.35 7.35-7.45 PCO2 ARTERIAL (BEAKER) (test nfyx=975) 41 mmHg 35-45 PO2 ARTERIAL (BEAKER) (test ikpq=986) 85 mmHg 80-90 O2 SATURATION ARTERIAL (BEAKER) (test ccum=535) 96.2 % 96.0-97.0 HCO3 ARTERIAL (BEAKER) (test tsfp=688) 22 mmol/L 21-29 BASE EXCESS ARTERIAL (BEAKER) (test rmwl=947) -3.4 mmol/L -2.0-3.0 PATIENT TEMPERATURE (BEAKER) (test eugc=9774) 36.4 C FIO2 (BEAKER) (test dtbg=1788) 28.0 % POCT-GLUCOSE [id number] 12:21:00 Test Item Value Reference Range Comments POC-GLUCOSE METER (BEAKER) 83 mg/dL 70-110 TESTED AT [facility] [address] [facility] (test tyrh=3586) [place] [address] U/S, ABDOMINAL, [id number] 11:45:00Abdomen limited area? Add comment if clarification [...] Unremarkable rightupper quadrant ultrasound exam. Signed: [facility] Verified Date/Time : 07/26/2018 11:45:22 Reading Location: [facility] C013Y CT Body Reading Room RAD , CHEST, 1 VIEW, NON [id number] 11:10:00Reason for exam:->Persistent coughShould this be performed at the bedside?->YesFINAL REPORT INDICATION: Persistent cough COMPARISON: None TECHNIQUE: Single frontal view of the chest. FINDINGS: Lungs and pleura: Clear lungs. No effusion.Heart and mediastinum: Normal heart size. Unremarkable mediastinal contours.Osseous structures: No acute abnormality.Other: Stent material is noted in the left subclavian region. IMPRESSION: No acute intrathoracic abnormality. Signed: JR Biggs Robert MDRabhijitort Verified Date/Time: 11:10:13 Reading Location: [facility] C013V Neuro Reading Room RAD, CHEST, 2 [id number] 18:51:00Reason for exam:->ABNORMAL IMAGING RESULTFINAL REPORT Chest, [...] Delgado MDReport Verified Date/Time: 18:51:08 Reading Location: [facility] B1 C013W Consult Reading Room Electronicallysigned by: GALLO DELGADO M.D. on 03/23/2018 06:51 PMB-TYPE NATRIURETIC FACTOR (BNP)2018-03-23 18:29:00 Test Item Value Reference Range Comments B-TYPE NATRIURETIC PEPTIDE (BEAKER) (test 1420 pg/mL 0-100 ldtv=880) RAPID [id number] 18:27:00 Test Item Value Reference Range Comments RAPID MYOGLOBIN (BEAKER) (test pomd=3248) 438 ng/mL <107 RAPID [id number] 18:27:00 Test Item Value Reference Range Comments RAPID CKMB (BEAKER) (test auzv=0354) 3.2 ng/mL 0.0-4.3 RAPID TROPONIN [id number] 18:27:00 Test Item Value Reference Range Comments RAPID TROPONIN I (BEAKER) (test nlxh=7657) < ng/mL <0.05 PT/[id number] 18:23:00 Test Item Value Reference Range Comments PROTIME (BEAKER) (test jrnh=579) 11.3 seconds 9.8-12.0 INR (BEAKER) (test rewh=762) 1.1 <=5.9 PARTIAL THROMBOPLASTIN TIME (BEAKER) (test 22.5 seconds 25.8-34.5 jdey=374) RECOMMENDED COUMADIN/WARFARIN INR THERAPY RANGESSTANDARD DOSE: 2.0 - 3.0 Includes: PROPHYLAXIS forvenous thrombosis, systemic embolization; TREATMENT for venous thrombosis and/or pulmonary embolus.HIGH RISK: Target INR is 2.5-3.5 for patients with mechanical heart valves.BASIC METABOLIC [id number] 18:21: 00 Test Item Value Reference Range Comments SODIUM (BEAKER) (test 138 meq/L 135-148 tibg=683) POTASSIUM (BEAKER) (test 4.7 meq/L 3.6-5.5 uvke=382) CHLORIDE (BEAKER) (test 99 meq/L 98-106 oido=243) CO2 (BEAKER) (test 29 meq/L 24-32 pfzq=118) BLOOD UREA NITROGEN 36 mg/dL 10-26 (BEAKER) (test rqip=104) CREATININE (BEAKER) (test 5.15 mg/dL 0.50-1.20 chyu=093) GLUCOSE RANDOM (BEAKER) 94 mg/dL 70-110 (test wndx=543) CALCIUM (BEAKER) (test 9.2 mg/dL 8.5-10.5 lxsy=193) EGFR (BEAKER) (test 11 mL/min/1.73 sq m ESTIMATED GFR IS NOT vvfo=0542) ACCURATE CREATININE CLEARANCE IN PREDICTING GLOMERULAR FILTRATION RATE. ESTIMATED GFR IS NOT APPLICABLE FOR DIALYSIS PATIENTS. [id number] 18:18:00 Test Item Value Reference Range Comments MAGNESIUM (BEAKER) (test ljej=033) 2.3 mg/dL 1.5-3.0 CREATINE KINASE (CK)2018-03-23 18:18:00 Test Item Value Reference Range Comments CREATINE KINASE TOTAL (BEAKER) (test dfpx=365) 50 U/L 40-250 CBC W/PLT COUNT & AUTO [id number] 18:15:00 Test Item Value Reference Range Comments WHITE BLOOD CELL COUNT (BEAKER) (test ivae=987) 9.3 K/ L 4.0-10.0 RED BLOOD CELL COUNT (BEAKER) (test ndeb=169) 3.48 M/ L 4.20-5.80 HEMOGLOBIN (BEAKER) (test ucgj=308) 10.9 GM/DL 13.0-16.8 HEMATOCRIT (BEAKER) (test cbuz=788) 33.0 % 40.0-50.0 MEAN CORPUSCULAR VOLUME (BEAKER) (test yekp=621) 94.8 fL 82.0-98.0 MEAN CORPUSCULAR HEMOGLOBIN (BEAKER) (test 31.2 pg 27.0-33.0 wipn=546) MEAN CORPUSCULAR HEMOGLOBIN CONC (BEAKER) (test 32.9 GM/DL 32.0-36.0 zaxz=618) RED CELL DISTRIBUTION WIDTH (BEAKER) (test 13.7 % 10.3-14.2 urqo=409) PLATELET COUNT (BEAKER) (test lvud=966) 277 K/CU MM 150-430 MEAN PLATELET VOLUME (BEAKER) (test vtxq=616) 8.8 fL 6.5-10.5 NEUTROPHILS RELATIVE PERCENT (BEAKER) (test 72 % rsql=814) LYMPHOCYTES RELATIVE PERCENT (BEAKER) (test 15 % qooj=158) MONOCYTES RELATIVE PERCENT (BEAKER) (test 9 % elvd=753) EOSINOPHILS RELATIVE PERCENT (BEAKER) (test 3 % fvav=878) BASOPHILS RELATIVE PERCENT (BEAKER) (test 1 % bsoc=071) NEUTROPHILS ABSOLUTE COUNT (BEAKER) (test 6.68 K/ L 1.80-8.00 ltsh=529) LYMPHOCYTES ABSOLUTE COUNT (BEAKER) (test 1.41 K/ L 1.48-4.50 iuta=095) MONOCYTES ABSOLUTE COUNT (BEAKER) (test 0.83 K/ L 0.00-1.30 gobe=832) EOSINOPHILS ABSOLUTE COUNT (BEAKER) (test 0.32 K/ L 0.00-0.50 pvij=514) BASOPHILS ABSOLUTE COUNT (BEAKER) (test 0.05 K/ L 0.00-0.20 ogef=268)
[2018-11-10 20:23] LABS: Absolute Lymphocytes (CBC) 1.6 K/uL (0.7-4.9); Basophils % 2.1 % (0-1.3); Hematocrit 35.3 % (39.6-49.0); Lymphocytes % 13.6 % (15.3-44.8)
[2018-11-10 20:24] LABS: Protime INR 1.04
[2018-11-10] MEDS ORDERED: MIDAZOLAM HCL 2 MG/2 ML INJ ONE (20:30)
[2018-11-10] MEDS ORDERED: DOPAMINE/D5W 400 MG/250 ML BAG IV ONE (20:33)
--- NOTE | 2018-11-10 20:39 | EDPHYS ---
Physician Documentation [facility] Name: Fredi Moore Age: 72 yrs Sex: Male : 1945 Arrival Date: 11/10/2018 Time: 19:49 Bed 4 Private MD: ED Physician Durga Donohue HPI: 11/11 05:26 This 72 yrs old Male presents to ER via EMS with complaints of respiratory tw4 distress. 05:26 The patient has shortness of breath at rest. Onset: The symptoms/episode began/occurred tw4 yesterday. Duration: The symptoms are continuous, and are steadily getting worse. The patient's shortness of breath has no apparent modifying factors. Associated signs and symptoms: The patient has no apparent associated signs or symptoms. Severity of symptoms: At their worst the symptoms were moderate in the emergency department the symptoms are unchanged. 05:26 The patient has experienced similar episodes in the past, several times. tw4 Historical: - Allergies: 11/10 20:10 Morphine; bb - Home Meds: 20:10 abacavir 300 mg Oral tab 1 tab 2 times per day [Active]; amlodipine 10 mg tab 1 tab bb once daily [Active]; atazanavir 300 mg Oral 1 cap once daily [Active]; atorvastatin 80 mg Oral tab 1 tab nightly [Active]; atrial flutter [Active]; furosemide 40 mg Oral tab 1 tab 2 times per day [Active]; gabapentin 600 mg Oral tab 1 tab 3 times per day [Active]; hydroxyzine HCl 25 mg Oral tab 1 tab nightly [Active]; insulin asparte 10 units TID SQ [Active]; insulin glargine subcutaneous Sub-Q daily [Active]; lamivudine 100 mg Oral tab 0.5 tab once daily [Active]; Lyrica 75 mg Oral 2 times per day [Active]; metoprolol tartrate 100 mg Oral tab 1 tab once daily [Active]; ritonavir 100 mg Oral 1 cap once daily [Active]; sevelamer HCl Oral 2 tabs 3 times per day [Active]; Warfarin Oral [Active]; - PMHx: 20:10 blood clots; colon cancer; Diabetes - NIDDM; Dialysis; ESRD; HIV; Hypertension; bb - Immunization history:: Adult Immunizations unknown. - Social history:: Smoking status: unknown. - Ebola Screening: : No symptoms or risks identified at this time. ROS: 11/11 05:26 Eyes: Negative for injury, pain, redness, and discharge, Cardiovascular: Negative for tw4 chest pain, palpitations, and edema, Abdomen/GI: Negative for abdominal pain, nausea, vomiting, diarrhea, and constipation. Back: Negative for injury and pain, MS/Extremity: Negative for injury and deformity, Skin: Negative for injury, rash, and discoloration, Neuro: Negative for headache, weakness, numbness, tingling, and seizure. Constitutional: Positive for malaise. Respiratory: Positive for shortness of breath, at rest. Exam: 05:26 Eyes: Pupils equal round and reactive to light, extra-ocular motions intact. Lids and tw4 lashes normal. Conjunctiva and sclera are non-icteric and not injected. Cornea within normal limits. Periorbital areas with no swelling, redness, or edema. ENT: Nares patent. No nasal discharge, no septal abnormalities noted. Tympanic membranes are normal and external auditory canals are clear. Oropharynx with no redness, swelling, or masses, exudates, or evidence of obstruction, uvula midline. Mucous membranes moist. 05:26 Skin: Warm, dry with normal turgor. Normal color with no rashes, no lesions, and no evidence of cellulitis. MS/ Extremity: Pulses equal, no cyanosis. Neurovascular intact. Full, normal range of motion. Neuro: Awake and alert, GCS 15, oriented to person, place, time, and situation. Cranial nerves II-XII grossly intact. Motor strength 5/5 in all extremities. Sensory grossly intact. Cerebellar exam normal. Normal gait. 05:26 Constitutional: The patient appears in obvious distress, severely distressed, uncomfortable. 05:26 Cardiovascular: Rate: tachycardic, Rhythm: regular. 05:26 Respiratory: severe repiratory distress is noted, Respirations: accessory muscle usage, that is moderate, intercostal retractions, shallow respirations, Breath sounds: rales, that are severe, are located in both bases. Vital Signs: 11/10 19:50 BP 117 / 86; Pulse 85; Resp 32; Pulse Ox 97% on BiPAP; Weight 119 kg (R); Height 6 ft. bb 2 in. (187.96 cm) (R); 20:46 BP 97 / 58; Pulse 72; Resp 18; Temp 96.4(C); Pulse Ox 100% on ETT vent; ea 21:53 BP 116 / 81; Pulse 72; Resp 21; Pulse Ox 100% on R/A; rv 19:50 Body Mass Index 33.68 (119.00 kg, 187.96 cm) bb Ventilator: 20:10 Fi02: 100%; Rate: 16min; T.V.: 620ml; Peep: 5cm; ET tube: 7.5 mm (Oral); bb MDM: 19:55 Patient medically screened. 11/11 05:26 Data reviewed: vital signs, nurses notes. Data interpreted: Pulse oximetry: tw4 Interpretation: hypoxia. Counseling: I had a detailed discussion with the patient and/or guardian regarding: the historical points, exam findings, and any diagnostic results supporting the discharge/admit diagnosis, lab results, radiology results. Physician consultation: Nikki Napier MD. Physician consultation: was contacted at 21:25, regarding patient's condition, and will see patient in inpatient room. Admission orders: after a detailed discussion of the patient's condition and case, the admit orders are written by me. 11/10 20:01 Order name: Basic Metabolic Panel 4 11/10 20:01 Order name: CBC with Diff 11/10 20:01 Order name: LFT's 11/10 20:01 Order name: Magnesium 11/10 20:01 Order name: NT PRO-BNP 11/10 20:01 Order name: PT-INR 11/10 20:01 Order name: Troponin (emerg Dept Use Only) 11/10 20:39 Order name: Lactate em1 11/10 20:54 Order name: Urine Dipstick--Ancillary (enter results) em1 11/10 21:19 Order name: CBC with Automated Diff EDMS 11/10 21:19 Order name: CBC with Automated Diff EDMS 11/10 21:19 Order name: Comprehensive Metabolic Panel EDMS 11/10 21:19 Order name: Comprehensive Metabolic Panel EDMS 11/10 21:19 Order name: Lipid Profile EDMS 11/10 21:19 Order name: Lipid Profile EDMS 11/10 21:19 Order name: Magnesium EDMS 11/10 21:19 Order name: Magnesium EDMS 11/10 21:19 Order name: Phosphorus EDMS 11/10 21:19 Order name: Phosphorus [facility] 11/10 21:19 Order name: NT PRO-BNP [facility] 11/10 21:19 Order name: NT PRO-BNP [facility] 11/10 21:19 Order name: Protime (+INR) [facility] 11/10 21:19 Order name: Protime (+INR) [facility] 11/10 21:19 Order name: PTT, Activated Partial Thromb [facility] 11/10 21:19 Order name: PTT, Activated Partial Thromb [facility] 11/10 21:20 Order name: T4 Free [facility] 11/10 21:20 Order name: T4 Free [facility] 11/10 21:20 Order name: Thyroid Stimulating Hormone [facility] 11/10 21:20 Order name: Thyroid Stimulating Hormone [facility] 11/10 21:20 Order name: Troponin I [facility] 11/10 20:01 Order name: XRAY Chest (1 view) [facility] 11/10 20:01 Order name: EKG; Complete Time: 20:02 [facility] 11/10 20:01 Order name: Cardiac monitoring; Complete Time: 20:11 [facility] 11/10 20:01 Order name: EKG - Nurse/Tech; Complete Time: 20:12 [facility] 11/10 20:01 Order name: IV Saline Lock; Complete Time: 20:12 [facility] 11/10 20:01 Order name: Labs collected and sent; Complete Time: 20:12 [facility] 11/10 20:01 Order name: O2 Per Protocol; Complete Time: 20:12 [facility] 11/10 20:01 Order name: O2 Sat Monitoring; Complete Time: 20:12 [facility] 11/10 21:19 Order name: CONS Physician Consult [facility] 11/10 21:19 Order name: CONS Physician Consult [facility] 11/10 21:19 Order name: NPO [facility] 11/10 21:20 Order name: Troponin I [facility] 11/10 21:20 Order name: Troponin I [facility] 11/10 21:51 Order name: ABG Arterial Blood Gas [facility] Administered Medications: 11/10 19:50 Drug: Etomidate 20 mg Route: IVP; Site: right antecubital; bb 19:50 Drug: VecuroNIUM 10 mg Route: IVP; Site: right antecubital; bb 20:35 Drug: Versed 1 mg Route: IVP; Site: right antecubital; rv 21:55 Follow up: Response: No adverse reaction; Marked relief of symptoms rv 21:54 Drug: Propofol 5 mcg/kg/min Route: IV; Rate: calculated rate; Site: right wrist; rv 21:55 Follow up: IV Status: Infusion continued upon admission rv Disposition: 11/10/18 20:37 Hospitalization ordered by Nikki Napier for Inpatient Admission. Preliminary diagnosis are Respiratory failure, unspecified with hypoxia, Acute pulmonary edema, Chronic kidney disease, stage 5, Hypertensive heart and chronic kidney disease with heart failure and with stage 5 chronic kidney disease, or end stage renal disease. - Bed requested for Intensive Care Unit. - Status is Inpatient Admission. rv - Condition is Stable. - Problem is new. - Symptoms have improved. UTI on Admission? No Signatures: Dispatcher [employer] EDMS Sada Nolen RN RN bb Analilia Platt RN RN cg Wadley, Terrence, MD MD tw4 Xavier Cartwright RN RN rv Corrections: (The following items were deleted from the chart) 20:10 20:02 Chest Single View+RAD.[email or web address].BRZ ordered. EDRI EDRI 21:25 20:37 Hospitalization Ordered by Nikki Napier MD for Inpatient Admission. Preliminary cg diagnosis is Respiratory failure, unspecified with hypoxia; Acute pulmonary edema; Chronic kidney disease, stage 5; Hypertensive heart and chronic kidney disease with heart failure and with stage 5 chronic kidney disease, or end stage renal disease. Bed requested for Telemetry/MedSurg (Inpatient). Status is Inpatient Admission. Condition is Stable. Problem is new. Symptoms have improved. UTI on Admission? No. tw4 21:56 21:25 11/10/2018 20:37 Hospitalization Ordered by Nikki Napier MD for Inpatient rv Admission. Preliminary diagnosis is Respiratory failure, unspecified with hypoxia; Acute pulmonary edema; Chronic kidney disease, stage 5; Hypertensive heart and chronic kidney disease with heart failure and with stage 5 chronic kidney disease, or end stage renal disease. Bed requested for Intensive Care Unit. Status is Inpatient Admission. Condition is Stable. Problem is new. Symptoms have improved. UTI on Admission? No. cg 11/11 05:28 05:26 The patient has not experienced similar symptoms in the past, tw4 tw4
--- NOTE | 2018-11-10 20:39 | ER ---
Nurse's Notes [facility] Name: Fredi Moore Age: 72 yrs Sex: Male : 1945 Arrival Date: 11/10/2018 Time: 19:49 Bed 4 Private MD: Diagnosis: Respiratory failure, unspecified with hypoxia;Acute pulmonary edema;Chronic kidney disease, stage 5;Hypertensive heart and chronic kidney disease with heart failure and with stage 5 chronic kidney disease, or end stage renal disease Presentation: 11/10 19:47 Presenting complaint: EMS states: they were toned out for report of pt having bb difficulty breathing on arrival pt O2 sats 71% on room air they placed pt on Cpap and sats went to 90s. Transition of care: patient was not received from another setting of care. Onset of symptoms was November 10, 2018. Risk Assessment: Do you want to hurt yourself or someone else? Unable to obtain. Initial Sepsis Screen: Does the patient meet any 2 criteria? RR > 20 per min. Altered Mental Status. Yes Does the patient have a suspected source of infection? Yes: Productive cough/pneumonia. Care prior to arrival: IV initiated. 20 GA, in the right antecubital area, Oxygen administered. via CPAP or BiPAP. 19:47 Method Of Arrival: EMS: [facility] bb 19:47 Acuity: LUCERO 1 bb Triage Assessment: 20:10 General: Appears distressed, Behavior is restless. Neuro: Level of Consciousness is bb awake. Cardiovascular: Heart tones S1 S2 present Capillary refill < 3 seconds. Respiratory: Respiratory effort is labored, Respiratory pattern is tachypnea Breath sounds with crackles bilaterally. GI: Abdomen is non-distended. Derm: Skin is diaphoretic, Skin is dusky. Musculoskeletal: Circulation, motion, and sensation intact. Historical: - Allergies: 20:10 Morphine; bb - Home Meds: 20:10 abacavir 300 mg Oral tab 1 tab 2 times per day [Active]; amlodipine 10 mg tab 1 tab bb once daily [Active]; atazanavir 300 mg Oral 1 cap once daily [Active]; atorvastatin 80 mg Oral tab 1 tab nightly [Active]; atrial flutter [Active]; furosemide 40 mg Oral tab 1 tab 2 times per day [Active]; gabapentin 600 mg Oral tab 1 tab 3 times per day [Active]; hydroxyzine HCl 25 mg Oral tab 1 tab nightly [Active]; insulin asparte 10 units TID SQ [Active]; insulin glargine subcutaneous Sub-Q daily [Active]; lamivudine 100 mg Oral tab 0.5 tab once daily [Active]; Lyrica 75 mg Oral 2 times per day [Active]; metoprolol tartrate 100 mg Oral tab 1 tab once daily [Active]; ritonavir 100 mg Oral 1 cap once daily [Active]; sevelamer HCl Oral 2 tabs 3 times per day [Active]; Warfarin Oral [Active]; - PMHx: 20:10 blood clots; colon cancer; Diabetes - NIDDM; Dialysis; ESRD; HIV; Hypertension; bb - Immunization history:: Adult Immunizations unknown. - Social history:: Smoking status: unknown. - Ebola Screening: : No symptoms or risks identified at this time. Screenin:10 Abuse screen: Denies threats or abuse. Denies injuries from another. Nutritional rv screening: No deficits noted. Tuberculosis screening: No symptoms or risk factors identified. Fall Risk None identified. Assessment: 19:47 Reassessment: pt is respiratory distress RT at bedside for intubation Dr Donohue, this madison RN, Xavier RN, Lara RN, and Isacc central sterile tech at bedside. 20:08 General: Appears distressed, uncomfortable, Behavior is drowsy. Pain: Denies pain. rv Neuro: Level of Consciousness is confused. Cardiovascular: Rhythm is sinus rhythm. Respiratory: Airway is compromised Respiratory effort is labored. GI: No signs and/or symptoms were reported involving the gastrointestinal system. : No signs and/or symptoms were reported regarding the genitourinary system. EENT: No signs and/or symptoms were reported regarding the EENT system. Derm: Skin is clammy, diaphoretic, Skin temperature is cold. Musculoskeletal: No signs and/or symptoms reported regarding the musculoskeletal system. 21:30 Reassessment: contact for pt is spouse Ludin Moore phone number is [phone]. bb Vital Signs: 19:50 BP 117 / 86; Pulse 85; Resp 32; Pulse Ox 97% on BiPAP; Weight 119 kg (R); Height 6 ft. bb 2 in. (187.96 cm) (R); 20:46 BP 97 / 58; Pulse 72; Resp 18; Temp 96.4(C); Pulse Ox 100% on ETT vent; ea 21:53 BP 116 / 81; Pulse 72; Resp 21; Pulse Ox 100% on R/A; rv 19:50 Body Mass Index 33.68 (119.00 kg, 187.96 cm) bb ED Course: 19:47 Assisted provider with intubation using 7.5 mm ETT via oral route. ET tube secured at bb 23cm at the lips. Set up intubation tray. Intubated by Durga Donohue MD Placement verified by CXR, CO2 detector w/ + color change, auscultating bilateral breath sounds, Patient tolerated well. 19:49 Patient arrived in ED. em1 19:53 oralgastric tube placement confirmed by auscultation and return of gastric contents and bb xray placed to low intermittent suction. 19:55 Durga Donohue MD is Attending Physician. tw4 20:08 Triage completed. bb 20:08 Xavier Cartwright, EASTON is Primary Nurse. rv 20:10 Patient has correct armband on for positive identification. Bed in low position. Call rv light in reach. Side rails up X 1. hospital monitor on. Pulse ox on. NIBP on. 20:10 Initial lab(s) drawn, by ED staff, sent to lab. Inserted saline lock: 22 gauge in right rv wrist, using aseptic technique. Maintain EMS IV. Dressing intact. Good blood return noted. Site clean \T\ dry. Gauge \T\ site: G20 RIGHT AC. 20:11 XRAY Chest (1 view) In Process Unspecified. EDMS 20:11 Arm band placed on right wrist. Patient placed in the treatment room, on a stretcher, rv on oxygen, on hospital monitor, on pulse oximetry. 20:33 3-way catheter inserted, using sterile technique, 16 Fr. oe 20:37 Nikki Napier MD is Hospitalizing Provider. tw4 20:50 Notified ED physician of a critical lab result(s). creatinine 7.39. jd3 21:02 Notified ED physician of a critical lab result(s). lactate 2.4. Dr Donohue notified. bb 21:55 Patient admitted, IV remains in place. rv Administered Medications: 19:50 Drug: Etomidate 20 mg Route: IVP; Site: right antecubital; bb 19:50 Drug: VecuroNIUM 10 mg Route: IVP; Site: right antecubital; bb 20:35 Drug: Versed 1 mg Route: IVP; Site: right antecubital; rv 21:55 Follow up: Response: No adverse reaction; Marked relief of symptoms rv 21:54 Drug: Propofol 5 mcg/kg/min Route: IV; Rate: calculated rate; Site: right wrist; rv 21:55 Follow up: IV Status: Infusion continued upon admission rv Ventilator: 20:10 Fi02: 100%; Rate: 16min; T.V.: 620ml; Peep: 5cm; ET tube: 7.5 mm (Oral); bb Outcome: 20:37 Decision to Hospitalize by Provider. tw4 21:55 Admitted to ICU accompanied by nurse, accompanied by tech, via stretcher, room 2, with rv oxygen, on monitor, with chart, Report called to ELDA MCCORMACK 21:55 Condition: stable 21:55 Instructed on the need for admit. 21:56 Patient left the ED. rv Signatures: Dispatcher [employer] EDMS Sada Nolen, RN RN Bipin Gracia emIsacc Jama Elena RN Toro Anderson ea RN RN Durga Ramsay MD MD tw4 Xavier Cartwright, RN RN rv Corrections: (The following items were deleted from the chart) 20:16 20:10 BP 117 / 86; Pulse 85bpm; Resp 32bpm; Pulse Ox 97% BiPAP; 99.79 kg; bb bb 20:37 20:33 3-way catheter inserted, using sterile technique, 16 Fr. oe oe 21:05 20:46 BP 97 / 58; Pulse 72bpm; Resp 18bpm; Pulse Ox 100%; Temp 96.4F Catheter; obed clay
--- NOTE | 2018-11-10 20:40 | RAD REPORT ---
EXAM DESCRIPTION: Slime Single View11/10/2018 8:10 pm CLINICAL HISTORY: sob COMPARISON: August 2017 FINDINGS: An endotracheal tube has its tip 6.5 centimeters from the becky. Nasogastric tube is present stomach. Central venous line in place 13 centimeter consolidation right lung. Mild additional bilateral pulmonary opacities. The heart is m ildly enlarged IMPRESSION: Mild bilateral pulmonary opacities may represent pulmonary edema 13 centimeter consolidation right lung may represent superimposed pneumonia. This should be followed until it is clear to help exclude an underlying mass/postobstructive process
[2018-11-10 20:49] LABS: AST/SGOT 18 U/L (15-37); Albumin 3.4 g/dL (3.4-5.0); Alkaline Phosphatase 128 U/L (45-117); BUN Blood Urea Nitrogen 52 mg/dL (7-18); Bicarbonate 28 mmol/L (21-32); Bilirubin Direct 0.3 mg/dL (0-0.2); Bilirubin Total 0.7 mg/dL (0.2-1.0); Glucose Level 193 mg/dL (74-106); Magnesium 2.7 mg/dL (1.8-2.4); NT PRO-BNP 105480 pg/mL (<125); Potassium 4.6 mmol/L (3.5-5.1); Protein, Total 7.6 g/dL (6.4-8.2); Sodium Level 139 mmol/L (136-145); Troponin (Emerg Dept Use Only) < 0.02 ng/mL (0.0-0.045)
[2018-11-10 20:56] LABS: ALT/SGPT < 6 U/L (12-78)
[2018-11-10] MEDS ORDERED: ALBUMIN HUMAN 25% 50 ML IV SCH (21:00)
[2018-11-10] MEDS ORDERED: NA CHLORIDE 0.9% 1,000 ML IV PRN (21:00)
[2018-11-10] MEDS ORDERED: ONDANSETRON 4 MG/2 ML VIAL IV PRN (21:09)
[2018-11-10] MEDS ORDERED: ACETAMINOPHEN 650MG/RECT SUPP RECT PRN (21:09)
[2018-11-10 21:12] LABS: Urine Blood 2+ (NEG); Urine Glucose TRACE (NEG); Urine Protein 3+ (NEG); Urine Specific Gravity 1.025 (1.005-1.030)
[2018-11-10] MEDS ORDERED: HALOPERIDOL LACT 5 MG/ML INJ IV PRN (21:35)
[2018-11-10] MEDS ORDERED: PROPOFOL 1,000 MG/100 ML VIAL IV PRN (21:35)
[2018-11-10] MEDS ORDERED: MIDAZOLAM HCL 2 MG/2 ML INJ IV PRN (21:35)
[2018-11-10] MEDS ORDERED: LORazepam 2 MG/ML VIAL IV PRN (21:35)
[2018-11-10] MEDS ORDERED: PROPOFOL 1,000 MG/100 ML VIAL IV ONE (21:45)
[2018-11-10 21:49] LABS: Arterial Blood Carboxyhemoglob 0.8 % (0-1.5)
[2018-11-10] MEDS ORDERED: HEPARIN 10,000 UNIT/10 ML VIAL IV PRN (22:53)
[2018-11-10] MEDS ORDERED: ALBUMIN HUMAN 25% 100 ML IV ONE (23:00)
[2018-11-10] MEDS: FENTANYL CITR 100 MCG/2 ML IV PRN (23:25)
[2018-11-11 05:15] LABS: Absolute Lymphocytes (CBC) 0.7 K/uL (0.7-4.9); Basophils % 2.1 % (0-1.3); Hematocrit 27.3 % (39.6-49.0); MPV 9.5 fL (7.6-11.3); RBC Red Blood Cell Count 2.75 M/uL (4.33-5.43)
[2018-11-11 05:18] LABS: Protime INR 1.06
[2018-11-11 05:44] LABS: Arterial Blood Carboxyhemoglob 1.6 % (0-1.5); Blood Gas Oxyhemoglobin 92.9 % (94-97); Blood O2 Saturation 95.1 % (92-98.5)
[2018-11-11] MEDS: FENTANYL CITR 100 MCG/2 ML IV PRN ×2 (05:45→12:19)
[2018-11-11 06:33] LABS: AST/SGOT 14 U/L (15-37); Albumin 2.7 g/dL (3.4-5.0); Alkaline Phosphatase 88 U/L (45-117); BUN Blood Urea Nitrogen 35 mg/dL (7-18); Bicarbonate 28 mmol/L (21-32); Bilirubin Total 0.7 mg/dL (0.2-1.0); Glucose Level 60 mg/dL (74-106); HDL Cholesterol 50 mg/dL (40-60); LDL Cholesterol, Calculated 55 (<130); Magnesium 2.3 mg/dL (1.8-2.4); NT PRO-BNP 113478 pg/mL (<125); Phosphorus 4.6 mg/dL (2.5-4.9); Potassium 4.8 mmol/L (3.5-5.1); Sodium Level 143 mmol/L (136-145)
[2018-11-11 06:37] LABS: ALT/SGPT < 6 U/L (12-78)
--- NOTE | 2018-11-11 08:26 | P.CNS ---
Date of Consult: 11/11/18 Reason for Consult: Respiratory failure Chief Complaint: Respiratory distress History of Present Illness: Patient is 72 years of age developed respiratory distress pulmonary edema was intubated transferred here to the ICU is currently doing well. Patient was dialyzed yesterday chest x-ray showed classic pulmonary edema with a back to wing pattern Allergies morphine Allergy (Verified 09/16/18 00:16) unknown Home Medications: Abacavir Sulfate [Ziagen] 600 mg PO DAILY 08/17/18 Amiodarone HCl [Cordarone*] 200 mg PO DAILY 08/17/18 Aspirin 81 mg PO DAILY 08/17/18 Famotidine 20 mg PO DAILY 08/17/18 Fluticasone Propionate [24 Hour Allergy] 1 spr IH DAILY 08/17/18 Lamivudine [Lamivudine Hbv] 50 mg PO DAILY 08/17/18 Metoprolol Succinate [Toprol Xl] 25 mg PO DAILY 08/17/18 Ritonavir [Norvir] 100 mg PO DAILY 08/17/18 Ropinirole HCl 0.5 mg PO BEDTIME 08/17/18 Sevelamer Carbonate 1,600 mg PO TIDWM 08/17/18 Amlodipine [Norvasc*] 1 tab PO DAILY 09/16/18 Cetirizine HCl [Zyrtec*] 10 mg PO DAILY 09/16/18 Furosemide 1 tab PO BID 09/16/18 Lactulose 30 ml PO BID 09/18/18 Warfarin Sodium [Coumadin] 5 mg PO DAILY 5 PM #15 tab 09/18/18 - Past Medical/Surgical History Diabetic: Yes -: diabetes -: HTN -: ESRD -MWF -: Hemodialysis -: HIV infection -: COLON CANCER -: Afib -: partial removal of colon -: appendectomy -: fistula to left arm -: PermCath left chest - Family History Father Medical History: Hypertension - Social History Smoking Status: Unknown if ever smoked Alcohol use: No CD- Drugs: No Caffeine use: No Review of Systems is unable to be obtained Physical Examination Temp Pulse Resp BP Pulse Ox 99.4 F 65 11 L 103/51 L 96 11/11/18 06:00 11/11/18 06:00 11/11/18 05:00 11/11/18 06:00 11/11/18 06:00 General: Unresponsive HEENT: Atraumatic Respiratory: Clear to auscultation bilaterally Cardiovascular: Edema Capillary refill: <2 Seconds Gastrointestinal: Normal bowel sounds, Soft and benign Laboratory Data (last 24 hrs) 11/10/18 19:50: PT 12.3, INR 1.04 11/10/18 19:50: WBC 11.4 H, Hgb 11.3 L, Hct 35.3 L, Plt Count 233 11/10/18 19:50: Sodium 139, Potassium 4.6, BUN 52 H, Creatinine 7.39 H*, Glucose 193 H, Magnesium 2.7 H, Total Bilirubin 0.7, AST 18, ALT < 6 L, Alkaline Phosphatase 128 H - Problems (1) Respiratory failure Current Visit: Yes Status: Acute Plan: Patient is 72 years of age with end-stage renal disease on dialysis admitted with pulmonary edema chest x-ray has improved plan to wean him off the propofol wean him off the ventilator and extubate minimal oxygen requirement white count is mildly elevated he is on Zosyn and cultures are negative Dc Zosyn BNP was very high troponin so far is negative Qualifiers: Chronicity: acute
--- NOTE | 2018-11-11 08:29 | RAD REPORT ---
EXAM DESCRIPTION: Slime Single View11/11/2018 6:39 am CLINICAL HISTORY: Shortness of breath COMPARISON: November 09 FINDINGS: Right consolidation has mostly resolved Small to moderate right and small left pleural effusion present. Mild bilateral pulmonary opacities h ave partially resolved. Lines and tubes in good position IMPRESSION: Right consolidation has mostly resolved Small to moderate right and small left pleural effusions Partial resolution in mild interstitial pulmonary edema
[2018-11-11] MEDS: PIPER/TAZO/NS 2.25gm 2.25 GM/50 ML BAG IV SCH ×2 (09:00→09:16)
[2018-11-11] MEDS ORDERED: LORazepam 2 MG/ML VIAL ONE (09:11)
[2018-11-11] MEDS: HEPARIN 5000 UNIT/ML 1 ML VIAL SQ SCH ×2 (09:16→19:48)
[2018-11-11] MEDS: FAMOTIDINE 20 MG/2 ML VIAL IV SCH (09:18)
[2018-11-11] MEDS ORDERED: VECURONIUM 10 MG/VIAL IV ONE (09:35)
[2018-11-11] MEDS ORDERED: ETOMIDATE 20 MG/10 ML VIAL IV ONE (09:35)
--- NOTE | 2018-11-11 10:46 | P.HP ---
Certification for Inpatient Patient admitted to: Inpatient With expected LOS: >2 Midnights Patient will require the following post-hospital care: None Practitioner: I am a practitioner with admitting privileges, knowledge of patient current condition, hospital course, and medical plan of care. Services: Services provided to patient in accordance with Admission requirements found in Title 42 Section 412.3 of the Code of Federal Regulations Patient History Date of Service: 11/10/18 Reason for admission: Respiratory distress History of Present Illness: Patient is a 72-year-old gentleman who has a history of end-stage renal disease, HIV, and noncompliance. patient came in fluid overloaded and in respiratory distress. In the ER, patient was intubated by emergency room physician. Patient was attempted to be diuresed but did not make any urine. Nephrology was consulted and hemodialysis nurse came out to dialyze the patient. Clinically, patient is much better. Plan to extubate in a.m.. Allergies morphine Allergy (Verified 09/16/18 00:16) unknown Home Medications: Abacavir Sulfate [Ziagen] 600 mg PO DAILY 08/17/18 Amiodarone HCl [Cordarone*] 200 mg PO DAILY 08/17/18 Aspirin 81 mg PO DAILY 08/17/18 Famotidine 20 mg PO DAILY 08/17/18 Fluticasone Propionate [24 Hour Allergy] 1 spr IH DAILY 08/17/18 Lamivudine [Lamivudine Hbv] 50 mg PO DAILY 08/17/18 Metoprolol Succinate [Toprol Xl] 25 mg PO DAILY 08/17/18 Ritonavir [Norvir] 100 mg PO DAILY 08/17/18 Ropinirole HCl 0.5 mg PO BEDTIME 08/17/18 Sevelamer Carbonate 1,600 mg PO TIDWM 08/17/18 Amlodipine [Norvasc*] 1 tab PO DAILY 09/16/18 Cetirizine HCl [Zyrtec*] 10 mg PO DAILY 09/16/18 Furosemide 1 tab PO BID 09/16/18 Lactulose 30 ml PO BID 09/18/18 Warfarin Sodium [Coumadin] 5 mg PO DAILY 5 PM #15 tab 09/18/18 - Past Medical/Surgical History Diabetic: Yes -: diabetes -: HTN -: ESRD -MWF -: Hemodialysis -: HIV infection -: COLON CANCER -: Afib -: partial removal of colon -: appendectomy -: fistula to left arm -: PermCath left chest - Family History Father Medical History: Hypertension - Social History Alcohol use: No CD- Drugs: No Caffeine use: No Review of Systems 10-point ROS is otherwise unremarkable Physical Examination - Vital Signs Temperature: 99.4 F Blood Pressure: 103/51 Pulse: 65 Respirations: 11 Pulse Ox (%): 96 - Physical Exam General: In no apparent distress, Severe distress HEENT: Atraumatic, PERRLA, Mucous membr. moist/pink, EOMI, Sclerae nonicteric Neck: Supple, 2+ carotid pulse no bruit, No LAD, Without JVD or thyroid abnormality Respiratory: Crackles/rales Cardiovascular: Regular rate/rhythm, Normal S1 S2 Gastrointestinal: Normal bowel sounds, No tenderness Musculoskeletal: No tenderness Integumentary: No rashes Neurological: Normal gait, Normal speech, Normal strength at 5/5 x4 extr, Normal tone, Sensation intact, Cranial nerves 3-12 intact, Normal affect Lymphatics: No axilla or inguinal lymphadenopathy - Studies Laboratory Data (last 24 hrs) 11/10/18 19:50: PT 12.3, INR 1.04 11/10/18 19:50: WBC 11.4 H, Hgb 11.3 L, Hct 35.3 L, Plt Count 233 11/10/18 19:50: Sodium 139, Potassium 4.6, BUN 52 H, Creatinine 7.39 H*, Glucose 193 H, Magnesium 2.7 H, Total Bilirubin 0.7, AST 18, ALT < 6 L, Alkaline Phosphatase 128 H Assessment & Plan - Problems (Diagnosis) (1) Respiratory failure Current Visit: Yes Status: Acute Qualifiers: Chronicity: acute (2) Diastolic dysfunction Current Visit: No Status: Acute (3) ESRD (end stage renal disease) Onset Date: 01/31/17 Current Visit: No Status: Acute (4) HIV (human immunodeficiency virus infection) Current Visit: No Status: Acute (5) Pulmonary edema Onset Date: 01/31/17 Current Visit: No Status: Acute (6) Volume overload Current Visit: No Status: Acute Qualifiers: Hypervolemia type: other Qualified Code(s): E87.79 - Other fluid overload (7) Atrial fibrillation Current Visit: No Status: Chronic Qualifiers: Atrial fibrillation type: chronic Qualified Code(s): I48.2 - Chronic atrial fibrillation (8) Hypertension Onset Date: 10/17/17 Current Visit: No Status: Chronic Qualifiers: Hypertension type: essential hypertension Qualified Code(s): I10 - Essential (primary) hypertension - Plan Plan: 1. Nephrology consultation 2. Hemodialysis 3. Monitor electrolytes closely 4. Vent management 5. It was dialyzed will attempt to extubate 6. Strict blood pressure and blood sugar control 7. GI and DVT prophylaxis Discharge Plan: Home Plan to discharge in: Greater than 2 days - Advance Directives Does patient have a Living Will: No Does patient have a Durable POA for Healthcare: No - Code Status/Comfort Care Code Status Assessed: Yes Code Status: Full Code Critical Care: Yes Time Spent Managing PTS Care (In Minutes): 45
[2018-11-11] MEDS: LORazepam 2 MG/ML VIAL IV PRN ×3 (11:20→14:50)
[2018-11-11] MEDS ORDERED: CEFAZOLIN 2 GM in NA CHLORIDE 0.9% 100 ML IVPB SCH (13:00)
--- NOTE | 2018-11-11 13:51 | P.PN ---
Subjective Date of Service: 11/11/18 Chief Complaint: Respiratory distress Patient seen and examined at bedside. No family at bedside. Chart reviewed and case discussed with nursing staff. Currently intubated and undergoing dialysis Review of Systems 10-point ROS is otherwise unremarkable Physical Examination - Vital Signs Temperature: 99.4 F Blood Pressure: 112/63 Pulse: 73 Respirations: 16 Pulse Ox (%): 96 - Physical Exam General: In no apparent distress, Other (Intubated, sedated) HEENT: Atraumatic, PERRLA, EOMI Neck: Supple, JVD not distended Respiratory: Diminished, Crackles/rales Cardiovascular: Regular rate/rhythm, Normal S1 S2 Gastrointestinal: Normal bowel sounds, No tenderness Musculoskeletal: No tenderness Integumentary: No rashes Neurological: Normal speech, Normal tone, Normal affect Lymphatics: No axilla or inguinal lymphadenopathy - Studies Laboratory Data (last 24 hrs) 11/10/18 19:50: PT 12.3, INR 1.04 11/10/18 19:50: WBC 11.4 H, Hgb 11.3 L, Hct 35.3 L, Plt Count 233 11/10/18 19:50: Sodium 139, Potassium 4.6, BUN 52 H, Creatinine 7.39 H*, Glucose 193 H, Magnesium 2.7 H, Total Bilirubin 0.7, AST 18, ALT < 6 L, Alkaline Phosphatase 128 H Assessment And Plan - Current Problems (Diagnosis) (1) Respiratory failure Current Visit: Yes Status: Acute Qualifiers: Chronicity: acute (2) Diastolic dysfunction Current Visit: No Status: Acute (3) ESRD (end stage renal disease) Onset Date: 01/31/17 Current Visit: No Status: Acute (4) HIV (human immunodeficiency virus infection) Current Visit: No Status: Acute (5) Pulmonary edema Onset Date: 01/31/17 Current Visit: No Status: Acute (6) Volume overload Current Visit: No Status: Acute Qualifiers: Hypervolemia type: other Qualified Code(s): E87.79 - Other fluid overload (7) Atrial fibrillation Current Visit: No Status: Chronic Qualifiers: Atrial fibrillation type: chronic Qualified Code(s): I48.2 - Chronic atrial fibrillation (8) Hypertension Onset Date: 10/17/17 Current Visit: No Status: Chronic Qualifiers: Hypertension type: essential hypertension Qualified Code(s): I10 - Essential (primary) hypertension - Plan 1. Nephrology consulted, dialysis sessions per nephrology. Recommendations appreciated. 2. Hemodialysis as per Nephrology. 3. Monitor electrolytes closely 4. Vent management per pulmonology. 5. attempt to extubate after dialysis session 6. Strict blood pressure and blood sugar control 7. GI and DVT prophylaxis Critical Care: Yes
[2018-11-11] MEDS: MANNITOL 25% 12.5 GM/50 ML VIAL IV PRN (14:22)
[2018-11-11] MEDS: EPOETIN ALFA 10,000 UNIT/ML VIAL IV SCH (15:36)
--- NOTE | 2018-11-11 15:55 | EKG ---
Test Date: 2018-11-11 Test Time: 15:04:17 Web Retailer: ANA M MEASUREMENT RESULTS: Intervals: Rate: 71 NM: 226 QRSD: 96 QT: 420 QTc: 456 [place]: P: 30 NM: 226 QRS: -5 T: 177 INTERPRETIVE STATEMENTS: Sinus rhythm with 1st degree AV block ST & T wave abnormality, consider inferolateral ischemia Abnormal ECG Compared to ECG 11/10/2018 20:14:31 Prolonged QT interval no longer present ST (T wave) deviation still present Possible ischemia still present Electronically Signed On 11-11-18 15:53:59 CDT by Doe Shoemaker
--- NOTE | 2018-11-11 15:58 | EKG ---
Test Date: 2018-11-10 Test Time: 20:14:31 Vending Route Driver: [place] MEASUREMENT RESULTS: Intervals: Rate: 76 NV: 262 QRSD: 116 QT: 422 QTc: 474 [place]: P: 52 NV: 262 QRS: 25 T: 106 INTERPRETIVE STATEMENTS: Sinus rhythm with 1st degree AV block ST & T wave abnormality, consider lateral ischemia Prolonged QT Abnormal ECG Compared to ECG 09/15/2018 17:45:16 First degree AV block now present Possible ischemia now present Atrial fibrillation no longer present Left-axis deviation no longer present ST (T wave) deviation still present Electronically Signed On 11-11-18 15:54:36 CDT by Doe Shoemaker
[2018-11-11] MEDS: CEFAZOLIN/SWI 2gm 2 GM/20 ML SYR IV SCH ×2 (16:20→17:00)
--- NOTE | 2018-11-11 17:50 | CON ---
Date of Consultation: 11/11/2018 Reason For Consult: ESRD, on dialysis. History Of Present Illness: Mr. Moore is a 72-year-old gentleman with past medical history sign ificant for history of ESRD, HIV, and severe noncompliance with diet and medications, presented to [facility] with fluid overload and respiratory distress. He was intubated in the emergency ro om for severe respiratory distress and ended up getting emergent dialysis last night. Patient is doi ng okay at this time and we are planning to do another dialysis session before we can extubate him. Past Medical History: Significant for history of ESRD with diabetes, hypertension, HIV, colon cancer , atrial fibrillation, partial removal of colon, appendectomy, fistula to the left arm, PermCath to t he left chest. Patient has been recently in and out of the hospital multiple times. He has been suf fering with bacteremia and is supposed to be getting Ancef post dialysis. Family History: Significant for father with history of hypertension. Social History: Unable to be obtained. Review of Systems: Unable to be obtained. Physical Examination: Vital Signs: At this time are showing temperature of 99.4, pulse rate of 65, respiratory rate of 16, and blood pressure 103/51. General: He is intubated and sedated. HEENT: Atraumatic head. Lungs: Auscultation of the lungs revealed bilateral equal air entry. Heart: Auscultation of the heart revealed a systolic ejection murmur/pansystolic murmur. Abdomen: Soft and nontender. Extremities: No evidence of edema. Laboratory Data: Has been reviewed. Sodium of 143, potassium of 4.8, chloride of 110, BUN of 35, an d creatinine of 5.71. ProBNP was elevated. CBC showing stable hemoglobin, hematocrit, and platelet count. Current Medications: Have been reviewed in detail. Impression: 1.End-stage renal disease, on dialysis. 2.Volume overload, leading to pulmonary edema. Patient is intubated at this time secondary to respi ratory distress. We will plan for dialysis and another 4 L of ultrafiltration. 3.Recent bacteremia. Patient is supposed to be on Ancef post dialysis. We will go ahead and contin ue Ancef post dialysis on Friday, Friday, and Friday. His blood pressure is borderline. We will plan to do albumin with dialysis to help with the volume removal. We will continue to assess his guilherme lysis needs based on his volume status and we will follow up closely. His anemia is stable. We will go ahead and give him a dose of Epogen to prevent further drops in his hemoglobin. His home medicat ions needs to be restarted. We will follow up closely. Thank you very much for this consultation. Please do not hesitate to call us with any questions or c oncerns. MARIEL/JACK Voice ID: [id number] Report ID: [id number]
[2018-11-11] MEDS ORDERED: FUROSEMIDE 40 MG/4 ML VIAL IV SCH (22:00)
[2018-11-12 08:53] LABS: Magnesium 2.4 mg/dL (1.8-2.4); Phosphorus 4.6 mg/dL (2.5-4.9)
[2018-11-12 08:56] LABS: Potassium 6.1 mmol/L (3.5-5.1)
[2018-11-12] MEDS: FAMOTIDINE 20 MG/2 ML VIAL IV SCH (10:18)
[2018-11-12] MEDS: HEPARIN 5000 UNIT/ML 1 ML VIAL SQ SCH ×2 (10:18→20:01)
--- NOTE | 2018-11-12 11:06 | EKG ---
Test Date: 2018-11-12 Test Time: 09:26:49 [employer]fdc Solution Architect: ANA M MEASUREMENT RESULTS: Intervals: Rate: 88 [place]: QRSD: 100 QT: 384 QTc: 464 [place]: P: [place]: QRS: -31 T: 130 INTERPRETIVE STATEMENTS: Atrial flutter with variable AV block Left axis deviation ST & T wave abnormality, consider lateral ischemia Prolonged QT Abnormal ECG Compared to ECG 11/11/2018 15:04:17 Left-axis deviation now present Prolonged QT interval now present Sinus rhythm no longer present First degree AV block no longer present ST (T wave) deviation still present Possible ischemia still present Electronically Signed On 11-12-18 11:05:48 CDT by Doe Shoemaker
--- NOTE | 2018-11-12 11:26 | ECHO ---
HEIGHT: 6 ft 2 in WEIGHT: 212 lb 11.2 oz DATE OF STUDY: 11/12/[address]: Scott Renee MD 2-DIMENSIONAL: YES M.MODE: YES DOPPLER: YES COLOR FLOW: YES TDS: NO PORTABLE: YES DEFINITY: NO BUBBLE STUDY: NO DIAGNOSIS: RESPIRATORY FAILURE CARDIAC HISTORY: CATHERIZATION: NO SURGERY: NO PROSTHETIC VALVE: NO PACEMAKER: NO MEASUREMENTS (cm) DIASTOLIC (NORMALS) SYSTOLIC (NORMALS) IVSd 1.2 (0.6-1.2) LA Diam 4.4 (1.9-4.0) LVEF 53% LVIDd 4.8 (3.5-5.7) LVIDs 3.5 (2.0-3.5) %FS 27% LVPWd 1.3 (0.6-1.2) Ao Diam 3.2 (2.0-3.7) 2 DIMENSIONAL ASSESSMENT: RIGHT ATRIUM: NORMAL LEFT ATRIUM: DILATED RIGHT VENTRICLE: NORMAL LEFT VENTRICLE: LEFT VENTRICULAR HYPERTROPHY TRICUSPID VALVE: NORMAL MITRAL VALVE: MITRAL ANNULAR CALCIFICATION PULMONIC VALVE: NORMAL AORTIC VALVE: STENOTIC PERICARDIAL EFFUSION: NONE AORTIC ROOT: NORMAL LEFT VENTRICULAR WALL MOTION: DIASTOLIC DYSFUNCTION. DOPPLER/COLOR FLOW: MILD TRICUSPID REGURGIATION. SEVERE AORTIC STENOSIS, GRADIENT 53mmHg. AORTIC VALVE AREA 0.8 CENTIMETERS SQUARED. COMMENTS: SEVERE AORTIC STENOSIS. AORTIC VALVE AREA 0.8 CENTIMETERS SQUARED. DECREASED LEFT VENTRICULAR COMPLIANCE. LEFT VENTRICULAR HYPERTROPHY. MILD TRICUSPID REGURGIATION. NORMAL LEFT VENTRICULAR EJECTION FRACTION. TECHNOLOGIST: Natali LEE
[2018-11-12] MEDS: MANNITOL 25% 12.5 GM/50 ML VIAL IV PRN (12:53)
[2018-11-12] MEDS: EPOETIN ALFA 10,000 UNIT/ML VIAL IV SCH (13:25)
[2018-11-12] MEDS: ROPINIROLE HCL 0.25 MG TAB PO SCH ×2 (14:22→20:00)
[2018-11-12] MEDS: CEFAZOLIN 2 GM in NA CHLORIDE 0.9% 100 ML IVPB ONE ×2 (15:48→16:03)
--- NOTE | 2018-11-12 15:51 | P.PN ---
Subjective Date of Service: 11/12/18 Chief Complaint: Respiratory distress Patient seen and examined at bedside. No family at bedside. Chart reviewed and case discussed with nursing staff. Awake and alert this morning. Hemodynamically stable. Reports feeling much better today. Status post another dialysis session today Review of Systems 10-point ROS is otherwise unremarkable Physical Examination - Vital Signs Temperature: 98.1 F Blood Pressure: 101/85 Pulse: 95 Respirations: 20 Pulse Ox (%): 98 - Physical Exam General: Alert, In no apparent distress, Oriented x3, Obese HEENT: Atraumatic, PERRLA, EOMI Neck: Supple, JVD not distended Respiratory: Clear to auscultation bilaterally, Normal air movement Cardiovascular: Regular rate/rhythm, Normal S1 S2 Gastrointestinal: Normal bowel sounds, No tenderness Musculoskeletal: No tenderness Integumentary: No rashes Neurological: Normal speech, Normal tone, Normal affect Lymphatics: No axilla or inguinal lymphadenopathy Assessment And Plan - Current Problems (Diagnosis) (1) Respiratory failure Current Visit: Yes Status: Acute Qualifiers: Chronicity: acute (2) Diastolic dysfunction Current Visit: No Status: Acute (3) ESRD (end stage renal disease) Onset Date: 01/31/17 Current Visit: No Status: Acute (4) HIV (human immunodeficiency virus infection) Current Visit: No Status: Acute (5) Pulmonary edema Onset Date: 01/31/17 Current Visit: No Status: Acute (6) Volume overload Current Visit: No Status: Acute Qualifiers: Hypervolemia type: other Qualified Code(s): E87.79 - Other fluid overload (7) Atrial fibrillation Current Visit: No Status: Chronic Qualifiers: Atrial fibrillation type: chronic Qualified Code(s): I48.2 - Chronic atrial fibrillation (8) Hypertension Onset Date: 10/17/17 Current Visit: No Status: Chronic Qualifiers: Hypertension type: essential hypertension Qualified Code(s): I10 - Essential (primary) hypertension - Plan 1. Nephrology consulted, Recommendations appreciated. 2. Hemodialysis as per Nephrology. 3. Monitor electrolytes closely - improved 4. successfully extubated. Doing well, satting well on nasal cannula. Will continue to wean as tolerated. 5. Strict blood pressure and blood sugar control 6. GI and DVT prophylaxis Disposition: Transfer to the floor as patient now hemodynamically stable. Anticipate discharge home in the next 24-48 hr once clinically improved. Discharge Plan: Home Plan to discharge in: 48 Hours
[2018-11-12] MEDS ORDERED: CEFAZOLIN/SWI 2gm 2 GM/20 ML SYR IVP SCH (16:00)
[2018-11-12] MEDS: AMIODARONE HCL 200 MG TAB PO SCH (17:43)
[2018-11-12] MEDS ORDERED: HOME MED 1 EA UNK (Ropinirole Hcl [Ropinirole Hcl] 0.5 MG) PO SCH (21:00)
[2018-11-13 06:37] VITALS: BMI 26.4
--- NOTE | 2018-11-13 07:23 | P.PN ---
Date of Service: 11/12/18 Vital Signs Temp Pulse Resp BP Pulse Ox 97.8 F 78 20 126/65 96 11/12/18 21:17 11/12/18 21:17 11/12/18 21:17 11/12/18 21:17 11/12/18 21:17 Medications Acetaminophen (Tylenol Suppository) 650 mg RECT Q6HP PRN PRN Reason: pain/fever Stop: 12/10/18 21:10 Amiodarone HCl (Cordarone Tab) 100 mg PO DAILY [facility] Stop: 12/13/18 09:01 Last Admin: 11/12/18 17:43 Dose: 100 mg Aspirin (Aspirin Chewable) 81 mg PO DAILY [facility] Stop: 12/13/18 09:01 Epoetin Raji (Retacrit) 10,000 unit IV EVERY HD [facility] Stop: 12/11/18 13:01 Last Admin: 11/12/18 13:25 Dose: 10,000 unit Famotidine (Pepcid) 20 mg IV DAILY [facility]; Protocol Stop: 12/11/18 09:01 Last Admin: 11/12/18 10:18 Dose: 20 mg Fentanyl Citrate (Sublimaze) 25 mcg IV Q4HP PRN PRN Reason: Pain scale 8-10 (Severe) Stop: 12/10/18 21:36 Last Admin: 11/11/18 12:19 Dose: 25 mcg Haloperidol Lactate (Haldol) 2 mg IV Q4HP PRN PRN Reason: AGITATION Stop: 12/10/18 21:36 Heparin Sodium (Porcine) (Heparin 5,000 Units/Ml) 5,000 unit SQ Q12HR [facility] Stop: 12/11/18 09:01 Last Admin: 11/12/18 20:01 Dose: 5,000 unit Heparin Sodium (Porcine) (Heparin 1,000 Units/Ml) 6,000 unit IV EVERY HD PRN PRN Reason: FLUSH AFTER EACH USE Stop: 11/16/18 14:08 Heparin Sodium (Porcine) (Heparin 1,000 Units/Ml) 5,000 unit IV EVERY HD PRN PRN Reason: hemodialysis Stop: 11/16/18 23:59 Last Admin: 11/12/18 12:53 Dose: 5,000 unit Albumin Human (Albumin 25%) 50 mls @ 100 mls/hr IV EVERY HD [facility] Stop: 12/10/18 21:01 Cefazolin Sodium (Ancef 2 Gm/20 Ml Swi Ivp) 2 gm in 20 mls @ 600 mls/hr IV [id number] [facility] Stop: 12/11/18 17:01 Last Admin: 11/11/18 17:00 Dose: Not Given Lorazepam (Ativan) 2 mg IV Q2H PRN PRN Reason: SEDATION Stop: 12/11/18 09:08 Last Admin: 11/11/18 14:50 Dose: 2 mg Mannitol (Mannitol 12.5 Gm/50 Ml Vial) 12.5 gm IV EVERY HD PRN PRN Reason: Titrate to SBP (MUST DEFINE) Stop: 12/10/18 21:01 Last Admin: 11/12/18 12:53 Dose: 12.5 gm Midazolam HCl (Versed) 2 mg IV Q2HP PRN PRN Reason: SEDATION Stop: 12/10/18 21:36 Ondansetron HCl (Zofran) 4 mg IV Q6HP PRN PRN Reason: NAUSEA / VOMITING Stop: 12/10/18 21:10 Ropinirole HCl (Requip) 0.5 mg PO BID [facility] Stop: 12/12/18 14:01 Last Admin: 11/12/18 20:00 Dose: 0.5 mg Sodium Chloride (Normal Saline Flush) 10 ml IV BID [facility] Stop: 12/11/18 09:01 Last Admin: 11/12/18 20:00 Dose: 10 ml Assessment/ Plan: Nephrology CPS improved without CP or SOB. Approximately 10L removed over the past three days. No acute events overnight. Seen and examined on HD. Vitals, medications, blood work and imaging reviewed in the chart. NAD. MMM. Neck supple. CTA. RRR. Soft Abd. No C/C. LE Edema trace to 1+. No rash. AAO. Normal Speech. SEVERE AORTIC STENOSIS. AORTIC VALVE AREA 0.8 CENTIMETERS SQUARED. DECREASED LEFT VENTRICULAR COMPLIANCE. LEFT VENTRICULAR HYPERTROPHY. MILD TRICUSPID REGURGIATION. NORMAL LEFT VENTRICULAR EJECTION FRACTION. A/ ESRD on HD. Diastolic CHF, A/C. Severe . Acute respiratory failure sp intubation, resolved. HTN with CKD/ CHF complicated by hypotension. Anemia in chronic illness. ABE/ Secondary HyperPTH. HIV. P/ Continue current POC and Medications. Acute daily HD as ordered. Give Epo. Continue Ancef for recent bacteremia. AM labs. Daily weight. No NSAIDs. Greater than 35 min patient care.
[2018-11-13] MEDS: AMIODARONE HCL 200 MG TAB PO SCH (08:40)
[2018-11-13] MEDS: ROPINIROLE HCL 0.25 MG TAB PO SCH (08:40)
[2018-11-13] MEDS: FAMOTIDINE 20 MG/2 ML VIAL IV SCH (08:40)
[2018-11-13] MEDS ORDERED: ASPIRIN 81 MG CHEWABLE TABLET PO SCH (09:00)
[2018-11-13] MEDS: HEPARIN 5000 UNIT/ML 1 ML VIAL SQ SCH (09:00)
[2018-11-13 09:46] VITALS: BP 103/56; TEMP 97.2
[2018-11-13 10:21] VITALS: O2SAT 98
[2018-11-13] MEDS: EPOETIN ALFA 10,000 UNIT/ML VIAL IV SCH (10:25)
[2018-11-13 10:36] LABS: Absolute Lymphocytes (CBC) 0.5 K/uL (0.7-4.9); Basophils % 3.1 % (0-1.3); Hematocrit 30.5 % (39.6-49.0); RBC Red Blood Cell Count 3.08 M/uL (4.33-5.43)
[2018-11-13 10:46] LABS: Potassium 3.7 mmol/L (3.5-5.1)
[2018-11-13 11:36] LABS: Blood Morphology Comment NOT SEEN (NOT SEEN); Platelet Estimate ADEQ; Urine White Blood Cell Casts OK
[2018-11-13] MEDS: MANNITOL 25% 12.5 GM/50 ML VIAL IV PRN (11:58)
--- NOTE | 2018-11-13 15:42 | P.DS ---
Admission Date: 11/10/18 Discharge Date: 11/13/18 Disposition: ROUTINE DISCHARGE Discharge Condition: FAIR Reason for Admission: Respiratory distress Consultations: Pulmonology nephrology Procedures: Intubation Extubation - Problems (1) Respiratory failure Status: Acute Qualifiers: Chronicity: acute (2) Diastolic dysfunction Status: Acute (3) ESRD (end stage renal disease) Onset Date: 01/31/17 Status: Acute (4) HIV (human immunodeficiency virus infection) Status: Acute (5) Pulmonary edema Onset Date: 01/31/17 Status: Acute (6) Volume overload Status: Acute Qualifiers: Hypervolemia type: other Qualified Code(s): E87.79 - Other fluid overload (7) Atrial fibrillation Status: Chronic Qualifiers: Atrial fibrillation type: chronic Qualified Code(s): I48.2 - Chronic atrial fibrillation (8) Hypertension Onset Date: 10/17/17 Status: Chronic Qualifiers: Hypertension type: essential hypertension Qualified Code(s): I10 - Essential (primary) hypertension Brief History of Present Illness: Patient is a 72-year-old gentleman who has a history of end-stage renal disease , HIV, and noncompliance. patient came in fluid overloaded and in respiratory distress. In the ER, patient was intubated by emergency room physician. Patient was attempted to be diuresed but did not make any urine. Nephrology was consulted and hemodialysis nurse came out to dialyze the patient. Clinically, patient is much better. Plan to extubate in a.m.. Hospital Course: Patient was admitted for respiratory failure secondary to fluid overload. This is likely secondary to his noncompliance. patient was intubated, admitted to the ICU. Pulmonology was consulted. Nephrology was also consulted for diuresis. Patient's respiratory status improved after diuresis and he was successfully extubated. he continued to receive dialysis and he continued to do well from the respiratory point of view. Once he was hemodynamically stable he was transferred to the regular floor out of the ICU. He he did well, his symptoms improved and he was satting well on room air. He was then cleared for discharge by nephrology as well as pulmonology. His diagnoses/treatment plan was explained to him, all questions were answered in verbalized understanding. He was then discharged in a safe and stable manner. He is to follow up with is primary care physician and kidney doctor in a couple weeks. He he will continue his scheduled dialysis. Vital Signs/Physical Exam: Temp Pulse Resp BP Pulse Ox 97.2 F 73 16 103/56 L 98 11/13/18 08:00 11/13/18 08:00 11/13/18 08:00 11/13/18 08:00 11/13/18 08:00 General: Alert, In no apparent distress HEENT: Atraumatic, PERRLA, EOMI Neck: Supple, JVD not distended Respiratory: Clear to auscultation bilaterally, Normal air movement Cardiovascular: Regular rate/rhythm, Normal S1 S2 Gastrointestinal: Normal bowel sounds, No tenderness Musculoskeletal: No tenderness Integumentary: No rashes Neurological: Normal speech, Normal tone, Normal affect Lymphatics: No axilla or inguinal lymphadenopathy Laboratory Data at Discharge: WBC 5.7 K/uL (4.3-10.9) 11/13/18 09:59 Hgb 10.1 g/dL (13.6-17.9) L 11/13/18 09:59 Hct 30.5 % (39.6-49.0) L 11/13/18 09:59 Plt Count 162 K/uL (152-406) 11/13/18 09:59 PT 12.5 SECONDS (9.5-12.5) 11/11/18 04:58 INR 1.06 11/11/18 04:58 APTT 23.1 SECONDS (24.3-36.9) L 11/11/18 04:58 Sodium 140 mmol/L (136-145) 11/13/18 09:59 Potassium 3.7 mmol/L (3.5-5.1) 11/13/18 09:59 BUN 25 mg/dL (7-18) H 11/13/18 09:59 Creatinine 4.71 mg/dL (0.55-1.3) H D 11/13/18 09:59 Glucose 100 mg/dL (74-106) 11/13/18 09:59 Phosphorus 4.6 mg/dL (2.5-4.9) 11/12/18 08:24 Magnesium 2.4 mg/dL (1.8-2.4) 11/12/18 08:24 Total Bilirubin 0.7 mg/dL (0.2-1.0) 11/11/18 04:58 AST 14 U/L (15-37) L 11/11/18 04:58 ALT < 6 U/L (12-78) L 11/11/18 04:58 Alkaline Phosphatase 88 U/L (45-117) 11/11/18 04:58 Troponin I 0.04 ng/mL (0.0-0.045) 11/11/18 04:58 Triglycerides 157 mg/dL (<150) H 11/11/18 04:58 Cholesterol 136 mg/dL (<200) 11/11/18 04:58 HDL Cholesterol 50 mg/dL (40-60) 11/11/18 04:58 Cholesterol/HDL Ratio 2.72 11/11/18 04:58 Home Medications: Abacavir Sulfate [Ziagen] 600 mg PO DAILY 08/17/18 Amiodarone HCl [Cordarone*] 100 mg PO DAILY 08/17/18 Aspirin 81 mg PO DAILY 08/17/18 Lamivudine [Lamivudine Hbv] 100 mg PO DAILY 08/17/18 Metoprolol Succinate [Toprol Xl] 25 mg PO DAILY 08/17/18 Ritonavir [Norvir] 100 mg PO DAILY 08/17/18 Ropinirole HCl 0.5 mg PO BEDTIME 08/17/18 Sevelamer Carbonate 2,400 mg PO TIDWM 08/17/18 Cetirizine HCl [Zyrtec*] 10 mg PO DAILY 09/16/18 Lactulose 30 ml PO BID 09/18/18 Atorvastatin Calcium [Lipitor*] 10 mg PO BEDTIME 11/11/18 Benzonatate 1 cap PO TID PRN 11/11/18 Famotidine [Pepcid*] 20 mg PO DAILY 11/11/18 Gabapentin 100 mg PO BEDTIME 11/11/18 Insulin Aspart [Novolog] 10 unit SQ DAILY 11/11/18 Insulin Detemir [Levemir] 12 units SQ DAILY 11/11/18 Levothyroxine Sodium 0.5 tab PO DAILY 11/11/18 Midodrine HCl 1 tab PO TID 11/11/18 Pregabalin [Lyrica*] 75 mg PO BID PRN 11/12/18 Patient Discharge Instructions: Please follow up with your primary care physician in 2-3 days. Please follow up with nephrology in 1 week. Please conitnue your regular dialysis schedule. Return to the ER for worsening symptoms. Diet: Renal Activity: Ad chalino Followup: Adan Orourke DO [ACTIVE - CAN ADMIT] - 1-2 Weeks (CALL TO SCHEDULE AN APPOINTMENT) Time spent managing pt's care (in minutes): 55
== END 2018-11-13 14:26 | disposition home or self-care (01) | DRG 208 ==
LOC: ER 19:47 → 3RD-ICU 21:09 → 4TH 11-12 20:45
PROVIDERS: ADMIT Hospitalist; ATTEND Family Medicine
PROC: 5A1935Z Respiratory Ventilation, Less than 24 Consecutive Hours (ICD-10-PCS; principal; 2018-11-10)
PROC: 5A1D70Z Performance of Urinary Filtration, Intermittent, Less than 6 Hours Per Day (ICD-10-PCS; 2018-11-10)
PROC: 0BH17EZ Insertion of Endotracheal Airway into Trachea, Via Natural or Artificial Opening (ICD-10-PCS; 2018-11-10)
PROC: 5A1D70Z Performance of Urinary Filtration, Intermittent, Less than 6 Hours Per Day (ICD-10-PCS; 2018-11-11)
PROC: 5A1D70Z Performance of Urinary Filtration, Intermittent, Less than 6 Hours Per Day (ICD-10-PCS; 2018-11-12)
PROC: 5A1D70Z Performance of Urinary Filtration, Intermittent, Less than 6 Hours Per Day (ICD-10-PCS; 2018-11-13)
DX: J96.00 Acute respiratory failure, unspecified whether with hypoxia or hypercapnia (principal); I50.33 Acute on chronic diastolic (congestive) heart failure; N18.6 End stage renal disease; I13.2 Hypertensive heart and chronic kidney disease with heart failure and with stage 5 chronic kidney disease, or end stage renal disease; N25.81 Secondary hyperparathyroidism of renal origin; E11.22 Type 2 diabetes mellitus with diabetic chronic kidney disease; Z21 Asymptomatic human immunodeficiency virus [HIV] infection status; I48.91 Unspecified atrial fibrillation; I35.0 Nonrheumatic aortic (valve) stenosis; D63.8 Anemia in other chronic diseases classified elsewhere; Z99.2 Dependence on renal dialysis; Z90.49 Acquired absence of other specified parts of digestive tract; Z91.19 Patient's noncompliance with other medical treatment and regimen; Z85.038 Personal history of other malignant neoplasm of large intestine
CPT/HCPCS: 31500; 36415; 71045; 80048; 80053; 80061; 80076; 81003; 82805; 82962; 83605; 83735; 83880; 84100; 84439; 84443; 84484; 85025; 85610; 85730; 87070; 87205; 90935; 93005; 93306; 94002; 94003; 96374; 96375; 99291; J0690; J1265; J1644; J2150; J2250; J2704; J3010; J7030; P9047

== ENCOUNTER 2018-12-14 05:49 | Emergency (ER) | payer OTHER ==
[2018-12-14] MEDS ORDERED: SOD POLYSTYREN SUL 15 GM/60 ML UCUP ONE (06:10)
[2018-12-14] MEDS ORDERED: D50W 25 GM/50 ML SYRINGE IV ONE (06:10)
[2018-12-14] MEDS ORDERED: Caclcium Chloride 10% INJ SYR IV ONE (06:10)
[2018-12-14] MEDS ORDERED: ALBUTEROL 2.5 MG/3 ML NEB SOL ONE (06:10)
[2018-12-14] MEDS ORDERED: INSULIN -REGULAR HUMAN 50 UNIT/0.5 ML ML ONE (06:10)
[2018-12-14] MEDS ORDERED: ATROPINE SULF 1 MG/10 ML SYR IV ONE ×3 (06:11→08:10)
[2018-12-14] MEDS ORDERED: NA CHLORIDE 0.9% 1,000 ML ONE (06:11)
[2018-12-14 06:33] LABS: Basophils % 1.1 % (0-1.3); Hematocrit 32.8 % (39.6-49.0); Lymphocytes % 9.8 % (15.3-44.8); MPV 9.3 fL (7.6-11.3); RBC Red Blood Cell Count 3.34 M/uL (4.33-5.43)
--- NOTE | 2018-12-14 06:54 | ER ---
Nurse's Notes [facility] Name: Fredi Moore Age: 73 yrs Sex: Male : 1945 Arrival Date: 12/14/2018 Time: 05:51 Bed 4 Private MD: Diagnosis: Other specified heart block;Bradycardia, unspecified Presentation: 12/14 06:00 Presenting complaint: states: "He is supposed to have his regular hemodialysis cc3 session today morning at 0500H but when we came there his heart rate and blood pressure was low so his hemodialysis was not done and they advised us to go to the ER". Transition of care: patient was not received from another setting of care. Onset of symptoms was December 14, 2018. Risk Assessment: Do you want to hurt yourself or someone else? Patient reports no desire to harm self or others. Initial Sepsis Screen: Does the patient meet any 2 criteria? No. Patient's initial sepsis screen is negative. Does the patient have a suspected source of infection? No. Patient's initial sepsis screen is negative. Care prior to arrival: None. 06:00 Method Of Arrival: Wheelchair cc3 06:00 Acuity: LUCERO 1 jb4 Triage Assessment: 06:00 General: Appears in no apparent distress. uncomfortable, Behavior is calm, cooperative, cc3 appropriate for age. Pain: Denies pain. Historical: - Allergies: 06:00 Morphine; cc3 - Home Meds: 06:00 abacavir 300 mg Oral tab 1 tab 2 times per day [Active]; amlodipine 10 mg tab 1 tab cc3 once daily [Active]; atazanavir 300 mg Oral 1 cap once daily [Active]; atorvastatin 80 mg Oral tab 1 tab nightly [Active]; atrial flutter [Active]; furosemide 40 mg Oral tab 1 tab 2 times per day [Active]; gabapentin 600 mg Oral tab 1 tab 3 times per day [Active]; hydroxyzine HCl 25 mg Oral tab 1 tab nightly [Active]; insulin asparte 10 units TID SQ [Active]; insulin glargine subcutaneous Sub-Q daily [Active]; lamivudine 100 mg Oral tab 0.5 tab once daily [Active]; Lyrica 75 mg Oral 2 times per day [Active]; metoprolol tartrate 100 mg Oral tab 1 tab once daily [Active]; ritonavir 100 mg Oral 1 cap once daily [Active]; sevelamer HCl Oral 2 tabs 3 times per day [Active]; Warfarin Oral [Active]; - PMHx: 06:00 blood clots; colon cancer; Diabetes - NIDDM; Dialysis; ESRD; HIV; Hypertension; cc3 - Immunization history:: Adult Immunizations up to date. - Social history:: Smoking status: Patient/guardian denies using tobacco, never smoked. - Ebola Screening: : No symptoms or risks identified at this time. Screenin:00 Abuse screen: Denies threats or abuse. Denies injuries from another. Nutritional cc3 screening: No deficits noted. Tuberculosis screening: No symptoms or risk factors identified. Fall Risk Ambulatory Aid- None/Bed Rest/Nurse Assist (0 pts). Gait- Normal/Bed Rest/Wheelchair (0 pts) Mental Status- Oriented to own ability (0 pts). Assessment: 06:10 General: Appears distressed, uncomfortable, Behavior is calm, cooperative. Pain: Denies jb4 pain. Neuro: Level of Consciousness is awake, alert, obeys commands, Oriented to person, place, time, situation. Cardiovascular: Heart tones S1 S2 present Murmur present Patient's skin is warm and dry. Rhythm is sinus bradycardia. Respiratory: Airway is patent Respiratory effort is even, unlabored, Respiratory pattern is regular, symmetrical, Breath sounds are clear bilaterally. GI: No deficits noted. No signs and/or symptoms were reported involving the gastrointestinal system. : No deficits noted. No signs and/or symptoms were reported regarding the genitourinary system. EENT: No deficits noted. No signs and/or symptoms were reported regarding the EENT system. Derm: Skin is intact, Skin is pink, warm \\T\\ dry. Musculoskeletal: Circulation, motion, and sensation intact. Range of motion: intact in all extremities. 06:30 Reassessment: Patient and/or family updated on plan of care and expected duration. Pain jb4 level reassessed. Patient is alert, oriented x 3, equal unlabored respirations, skin warm/dry/pink. Heart rate has increased after atropine administration. PT denies having pain, or feeling light headed or dizzy while sitting. Patient denies pain at this time. Patient states symptoms have improved. 07:08 Reassessment: Patient appears in no apparent distress at this time. Patient and/or tw2 family updated on plan of care and expected duration. Pain level reassessed. pt c/o "restless leg" and requesting medication for it, provider notified. 07:25 Reassessment: Dr. Nelson (Mattress Specialist) at bedside. . aa5 07:30 Reassessment: Pt sitting up in bed, states no complaints at this time. Equal unlabored aa5 respirations, skin is pink/warm/dry. . 07:30 Cardiovascular: Rhythm is sinus bradycardia. aa5 Vital Signs: 06:00 Pulse 28; Resp 16 S; Temp 97.4(O); Pulse Ox 96% on R/A; Weight 94.8 kg (R); Height 5 cc3 ft. 11 in. (180.34 cm) (R); 06:00 cc3 06:09 BP 114 / 52; Pulse 28; Resp 18 S; Pulse Ox 93% on R/A; cc3 06:17 BP 133 / 49; Pulse 45; Resp 18; Pulse Ox 93% on R/A; jb4 06:33 BP 125 / 55; Pulse 39; Resp 15; Pulse Ox 100% on R/A; jb4 06:40 BP 131 / 50; Pulse 41; Resp 16; Pulse Ox 100% on R/A; jb4 06:51 BP 116 / 50; Pulse 43; Resp 18; Pulse Ox 100% on R/A; Pain 0/10; jb4 07:07 BP 104 / 59; Pulse 44; Resp 18; Pulse Ox 95% on R/A; tw2 07:25 BP 115 / 52; Pulse 45; Resp 18 S; Pulse Ox 99% on R/A; aa5 07:41 BP 112 / 56; Pulse 42; Resp 18; Pulse Ox 98% on R/A; tw2 06:00 Body Mass Index 29.15 (94.80 kg, 180.34 cm) cc3 06:00 blood pressure cannot be read at this time cc3 ED Course: 05:51 Patient arrived in ED. ag3 06:00 Patient has correct armband on for positive identification. Placed in gown. Bed in low cc3 position. Call light in reach. Side rails up X2. monitoring coordinator on. Pulse ox on. NIBP on. 06:00 Arm band placed on right wrist. EKG completed in triage. Results shown to MD. [email or web address] 06:10 Initial lab(s) drawn, by me, sent to lab. Inserted saline lock: 18 gauge in right jb4 forearm, using aseptic technique. Blood collected. 06:12 Leonel Ledbetter MD is Attending Physician. gs 06:16 Triage completed. cc3 06:44 XRAY Chest (1 view) In Process Unspecified. EDMS 06:51 EKG done, by ED staff, reviewed by Leonel Ledbetter MD. mt 07:00 Katlin Lazo, E[place] is Primary Nurse. tw2 07:40 No provider procedures requiring assistance completed. Patient admitted, IV remains in tw2 place. Administered Medications: 06:13 Drug: Atropine 1 mg Route: IVP; Site: right forearm; jb4 06:30 Follow up: Response: No adverse reaction; No adverse reaction, Heart rate increase.; No jb4 adverse reaction, Heart rate increased 06:15 Drug: Calcium Chloride 1 grams Route: IVP; Site: right forearm; jb4 07:07 Follow up: Response: No adverse reaction jb4 06:20 Drug: Insulin Regular Human 10 units {Co-Signature: [email or web address] (Thompson Garcia RN).} Route: jb4 IVP; Site: right forearm; 07:07 Follow up: Response: No adverse reaction jb4 06:20 Drug: D50W 50 ml Route: IVP; Site: right forearm; jb4 07:07 Follow up: Response: No adverse reaction jb4 06:28 Drug: Albuterol 2.5 mg Route: Inhalation; jb4 07:07 Follow up: Response: No adverse reaction jb4 06:50 Drug: Atropine 1 mg Route: IVP; Site: right forearm; bb 07:08 Follow up: Response: No adverse reaction; No adverse reaction, Heart rate incresaed jb4 Outcome: 06:52 ER care complete, transfer ordered by . gs 07:40 Admitted to Eap Counselor accompanied by nurse, via stretcher, on monitor, with chart. tw2 07:40 Condition: stable 07:40 Instructed on the need for admit. 07:53 Patient left the ED. aa5 Signatures: Dispatcher [employer] EDMS Sada Nolen RN RN bb Stacey Vega RN RN aa5 Katlin Lazo RN RN 2 Gonzalo Lanier RN RN jb4 Zeina Fink mt, Gregory, MD MD gs Cordel, Charlene cc3 Brook Archer 3 Thompson Garcia RN [email or web address] Corrections: (The following items were deleted from the chart) 06:25 06:09 BP 114 / 52; cc3 cc3 07:11 06:00 Acuity: LUCERO 2 cc3 jb4 07:16 06:30 Reassessment: Patient appears in no apparent distress at this time. No changes jb4 from previously documented assessment. Patient and/or family updated on plan of care and expected duration. Pain level reassessed. Patient is alert, oriented x 3, equal unlabored respirations, skin warm/dry/pink. Heart rate has increased after atropine administration. jb4
--- NOTE | 2018-12-14 06:54 | EDPHYS ---
Physician Documentation [facility] Name: Fredi Moore Age: 73 yrs Sex: Male : 1945 Arrival Date: 12/14/2018 Time: 05:51 Bed 4 Private MD: ED Physician Leonel Ledbetter HPI: 12/14 06:40 This 73 yrs old Male presents to ER via Wheelchair with complaints of LOW gs HEART RATE. 06:40 The patient presents with lightheadedness. Onset: The symptoms/episode began/occurred gs yesterday, last night. Associated signs and symptoms: Pertinent negatives: chest pain. Severity of symptoms: At their worst the symptoms were severe in the emergency department the symptoms are unchanged. The patient has not experienced similar symptoms in the past. Historical: - Allergies: 06:00 Morphine; cc3 - Home Meds: 06:00 abacavir 300 mg Oral tab 1 tab 2 times per day [Active]; amlodipine 10 mg tab 1 tab cc3 once daily [Active]; atazanavir 300 mg Oral 1 cap once daily [Active]; atorvastatin 80 mg Oral tab 1 tab nightly [Active]; atrial flutter [Active]; furosemide 40 mg Oral tab 1 tab 2 times per day [Active]; gabapentin 600 mg Oral tab 1 tab 3 times per day [Active]; hydroxyzine HCl 25 mg Oral tab 1 tab nightly [Active]; insulin asparte 10 units TID SQ [Active]; insulin glargine subcutaneous Sub-Q daily [Active]; lamivudine 100 mg Oral tab 0.5 tab once daily [Active]; Lyrica 75 mg Oral 2 times per day [Active]; metoprolol tartrate 100 mg Oral tab 1 tab once daily [Active]; ritonavir 100 mg Oral 1 cap once daily [Active]; sevelamer HCl Oral 2 tabs 3 times per day [Active]; Warfarin Oral [Active]; - PMHx: 06:00 blood clots; colon cancer; Diabetes - NIDDM; Dialysis; ESRD; HIV; Hypertension; cc3 - Immunization history:: Adult Immunizations up to date. - Social history:: Smoking status: Patient/guardian denies using tobacco, never smoked. - Ebola Screening: : No symptoms or risks identified at this time. ROS: 06:40 All other systems are negative. gs Exam: 06:40 Head/Face: Normocephalic, atraumatic. Eyes: Pupils equal round and reactive to light, gs extra-ocular motions intact. Lids and lashes normal. Conjunctiva and sclera are non-icteric and not injected. Cornea within normal limits. Periorbital areas with no swelling, redness, or edema. ENT: Nares patent. No nasal discharge, no septal abnormalities noted. Tympanic membranes are normal and external auditory canals are clear. Oropharynx with no redness, swelling, or masses, exudates, or evidence of obstruction, uvula midline. Mucous membranes moist. Neck: Trachea midline, no thyromegaly or masses palpated, and no cervical lymphadenopathy. Supple, full range of motion without nuchal rigidity, or vertebral point tenderness. No Meningismus. Chest/axilla: Normal chest wall appearance and motion. Nontender with no deformity. No lesions are appreciated. 06:40 Abdomen/GI: Soft, non-tender, with normal bowel sounds. No distension or tympany. No guarding or rebound. No evidence of tenderness throughout. Back: No spinal tenderness. No costovertebral tenderness. Full range of motion. Skin: Warm, dry with normal turgor. Normal color with no rashes, no lesions, and no evidence of cellulitis. MS/ Extremity: Pulses equal, no cyanosis. Neurovascular intact. Full, normal range of motion. Neuro: Awake and alert, GCS 15, oriented to person, place, time, and situation. Cranial nerves II-XII grossly intact. Motor strength 5/5 in all extremities. Sensory grossly intact. Cerebellar exam normal. Normal gait. 06:40 Constitutional: The patient appears alert, awake, in obvious distress, severely distressed. 06:40 Cardiovascular: Rate: bradycardic, Rhythm: regular, Pulses: no pulse deficits are appreciated. 06:40 Respiratory: the patient does not display signs of respiratory distress, Respirations: normal, Breath sounds: are clear throughout. 06:40 ECG was reviewed by the Attending Physician. Vital Signs: 06:00 Pulse 28; Resp 16 S; Temp 97.4(O); Pulse Ox 96% on R/A; Weight 94.8 kg (R); Height 5 cc3 ft. 11 in. (180.34 cm) (R); 06:00 cc3 06:09 BP 114 / 52; Pulse 28; Resp 18 S; Pulse Ox 93% on R/A; cc3 06:17 BP 133 / 49; Pulse 45; Resp 18; Pulse Ox 93% on R/A; jb4 06:33 BP 125 / 55; Pulse 39; Resp 15; Pulse Ox 100% on R/A; jb4 06:40 BP 131 / 50; Pulse 41; Resp 16; Pulse Ox 100% on R/A; jb4 06:51 BP 116 / 50; Pulse 43; Resp 18; Pulse Ox 100% on R/A; Pain 0/10; jb4 07:07 BP 104 / 59; Pulse 44; Resp 18; Pulse Ox 95% on R/A; tw2 07:25 BP 115 / 52; Pulse 45; Resp 18 S; Pulse Ox 99% on R/A; aa5 07:41 BP 112 / 56; Pulse 42; Resp 18; Pulse Ox 98% on R/A; tw2 06:00 Body Mass Index 29.15 (94.80 kg, 180.34 cm) cc3 06:00 blood pressure cannot be read at this time cc3 MDM: 06:12 Patient medically screened. 06:40 Differential diagnosis: cardiac arrhythmia, hyperkalemia. Data reviewed: vital signs, nurses notes. Response to treatment: the patient's symptoms have mildly improved after treatment. 06:53 ED course: had presented case to plastic welder at [facility] who accepted, was told by [facility] transfer center that pt is demetrio atwood and will get [facility] cardiology and will call us back.. 12/14 06:13 Order name: Basic Metabolic Panel 12/14 06:13 Order name: CBC with Diff; Complete Time: 06:48 12/14 06:13 Order name: LFT's 12/14 06:13 Order name: Magnesium 12/14 06:13 Order name: NT PRO-BNP 12/14 06:13 Order name: PT-INR; Complete Time: 06:48 12/14 06:13 Order name: Troponin (emerg Dept Use Only) 12/14 06:13 Order name: XRAY Chest (1 view) 12/14 06:13 Order name: EKG; Complete Time: 06:14 12/14 06:13 Order name: Cardiac monitoring; Complete Time: 06:37 12/14 06:13 Order name: EKG - Nurse/Tech; Complete Time: 06:37 gs 12/14 06:13 Order name: IV Saline Lock; Complete Time: 06:37 gs 12/14 06:13 Order name: Labs collected and sent; Complete Time: 06:37 gs 12/14 06:13 Order name: O2 Per Protocol; Complete Time: 06:37 gs 12/14 06:13 Order name: O2 Sat Monitoring; Complete Time: 06:37 gs EC:40 Rate is 28 beats/min. Rhythm is regular. NC interval is prolonged. QRS interval is gs prolonged. T waves are Flattened. Clinical impression: Sinus bradycardia and heart block. Interpreted by me. Administered Medications: 06:13 Drug: Atropine 1 mg Route: IVP; Site: right forearm; jb4 06:30 Follow up: Response: No adverse reaction; No adverse reaction, Heart rate increase.; No jb4 adverse reaction, Heart rate increased 06:15 Drug: Calcium Chloride 1 grams Route: IVP; Site: right forearm; jb4 07:07 Follow up: Response: No adverse reaction jb4 06:20 Drug: Insulin Regular Human 10 units {Co-Signature: [email or web address] (Thompson Garcia RN).} Route: jb4 IVP; Site: right forearm; 07:07 Follow up: Response: No adverse reaction jb4 06:20 Drug: D50W 50 ml Route: IVP; Site: right forearm; jb4 07:07 Follow up: Response: No adverse reaction jb4 06:28 Drug: Albuterol 2.5 mg Route: Inhalation; jb4 07:07 Follow up: Response: No adverse reaction jb4 06:50 Drug: Atropine 1 mg Route: IVP; Site: right forearm; bb 07:08 Follow up: Response: No adverse reaction; No adverse reaction, Heart rate incresaed jb4 Disposition: 12/14/18 06:52 Transfer ordered to [facility]. Diagnosis are Other specified heart block, Bradycardia, unspecified. - Reason for transfer: Higher level of care. - Accepting physician is tbd. - Condition is Critical. - Problem is chronic. - Symptoms have improved. Signatures: Dispatcher [employer] Sada Barkley RN RN bb Stacey Vega RN RN aa5 Gonzalo Lanier RN RN jb4 Leonel Ledbetter MD MD Constanza Sharma cc3 Thompson Garcia RN [email or web address] Corrections: (The following items were deleted from the chart) 06:51 06:40 Rate is 28 beats/min. Rhythm is regular. NC interval is prolonged. QRS interval gs is prolonged. T waves are Flattened. Clinical impression: Sinus bradycardia. Interpreted by me. 06:56 06:52 12/14/2018 06:52 Transfer ordered to [facility]. Diagnosis is gs Other specified heart block. Reason for transfer: Higher level of care. Accepting physician is tbd. Condition is Critical. Problem is chronic. Symptoms have improved. 07:53 06:56 12/14/2018 06:52 Transfer ordered to [facility]. Diagnosis is aa5 Other specified heart block; Bradycardia, unspecified. Reason for transfer: Higher level of care. Accepting physician is tbd. Condition is Critical. Problem is chronic. Symptoms have improved.
[2018-12-14 07:05] LABS: ALT/SGPT 12 U/L (12-78); AST/SGOT 16 U/L (15-37); Albumin 3.7 g/dL (3.4-5.0); Alkaline Phosphatase 89 U/L (45-117); BUN Blood Urea Nitrogen 72 mg/dL (7-18); Bicarbonate 25 mmol/L (21-32); Bilirubin Direct 0.2 mg/dL (0-0.2); Bilirubin Total 0.5 mg/dL (0.2-1.0); Glucose Level 95 mg/dL (74-106); NT PRO-BNP 170112 pg/mL (<450); Protein, Total 7.7 g/dL (6.4-8.2); Sodium Level 133 mmol/L (136-145); Troponin (Emerg Dept Use Only) < 0.02 ng/mL (0.0-0.045)
[2018-12-14 07:08] LABS: Potassium 6.4 mmol/L (3.5-5.1)
[2018-12-14] MEDS ORDERED: LIDOCAINE 1% MPF 30 ML VIAL ONE (07:27)
[2018-12-14] MEDS ORDERED: HEPA 1000U/500MLS 1,000 UNIT/500 ML BAG IV ONE (07:27)
[2018-12-14 07:59] VITALS: TEMP 97.4
[2018-12-14 08:07] VITALS: BP 112/56; O2SAT 98
[2018-12-14] MEDS ORDERED: FENTANYL CITR 100 MCG/2 ML ONE (08:10)
[2018-12-14] MEDS ORDERED: MIDAZOLAM HCL 2 MG/2 ML INJ ONE (08:10)
--- NOTE | 2018-12-14 08:34 | RAD REPORT ---
EXAM DESCRIPTION: RAD - Chest Single View - 12/14/2018 6:44 am CLINICAL HISTORY: Chest pain COMPARISON: November 11 TECHNIQUE: AP portable chest image was obtained 0632 hours . FINDINGS: No peripheral mass or consolidation. Heart, vasculature and lung markings are within range of normal. No significant failure or volume overload. Double-lumen dialysis catheter is present on t he right. Resuscitation paddle is present lower right chest. No measurable pleural effusion and no pn eumothorax. No acute bony abnormality seen. No acute aortic findings suspected. IMPRESSION: No acute cardiopulmonary process.
--- NOTE | 2018-12-14 09:31 | CON ---
This is a 73-year-old man. Chief Complaint: Dizziness. History Of Present Illness: Mr. Moore is a gentleman, who has end-stage renal disease, on dialy sis. He was going to dialysis today with his heart rate was known to be in the 20s. He was sent to the emergency room. Mr. Moore is usually in atrial flutter. Heart rate in the 50s. He takes m etoprolol but he is not in atrial flutter now. He is in sinus rhythm, in complete heart block and wi th atropine and other medicines his heart rate is now in the 40s, but it is a complete heart block or high-degree AV block sometimes, now it is complete heart block with junctional escape. His aortic s tenosis is known to be critical. He is being evaluated for a TAVR. He does not take an anticoagulan t. He has an AV fistula in his left arm that no longer works. He has a temporary Teto type ruby ter for dialysis in the right subclavian. Presently, he feels much better than when he came in. His heart rate is in the 40s. He also has a history of colon cancer, hypertension, diabetes, and hemodi alysis since 2011. Medications: Outpatient medications have been amlodipine, atazanavir, atorvastatin, furosemide, myrtle pentin, hydroxyzine, insulin, Lyrica, metoprolol, ritonavir, sevelamer, and warfarin. He apparently is not taking his warfarin. His INR today is normal. The PT is 11.8, INR 1.0. Physical Examination: Vital Signs: His blood pressure is 108/50, heart rate 40, heart block sinus. HEENT: Unremarkable. Abdomen: Soft. Extremities: Reveal mild edema. Distal pulses are palpable. Heart: Reveals a 3 to 4/6 systolic ejection type murmur consistent with aortic stenosis. I do not a ppreciate a diastolic murmur. His last echocardiogram estimated the aortic valve area at 0.8 square cm. His ejection fraction 53% and there was LVH. Impression: The patient needs to be transferred to a tertiary care medical center to consider a perm anent pacemaker with an tobacco drummer. That procedure itself will be quite challenging because of his dialysis access issues. In order to make the transfer more safe I have recommended a tempora ry transvenous pacemaker using right femoral. He will be transferred to [facility] where his doctors were working up his aortic stenosis, he probably needs to get a permanent pacemaker and within a kenney rly short period of time, get a transcutaneous AVR, although he might need bypass surgery as well. AMADA/JACK Voice ID: [id number] Report ID: [id number]
--- NOTE | 2018-12-14 09:34 | OP ---
Surgeon: Shahram Nelson MD Rib Sawyer: Prudence Shafer. Procedure: Temporary pacemaker placement. Indication: Profound bradycardia with hypotension. Procedure In Detail: The patient gave informed consent. He was brought to the cardiac labor relations analyst in a fasting state. There was no sedation. He was prepared and draped in usual sterile fashion. Right femoral vein approach was used because the subclavian veins are compromised with dialysis access site s. 1% lidocaine was used to anesthetize tissues around the right femoral vein. The vein was entered using an 18-gauge needle, cannulated with a 0.035-inch guidewire. Seldinger technique used to place a 5-Swedish sheath. The sheath was flushed, sutured into place. Sheath was used to place a temporary pacing catheter from the right femoral vein to the right ventricular apex. We got excellent pacing and sensing thresholds. Sensing thresholds were more than 5 mV and a pacing threshold less than 0.6 mV. We set the pacemaker at 40, heart rate of 40, output 5, sensitivity 2, and he is in his own brittany ed sinus bradycardia. There was some heart block seen on telemetry, but that is not the case now. Sivakumar izaguirre is in profound sinus bradycardia. We think the best thing is to not pace him now, leave the pacema ker as a temporary device, see if he will regain his own rhythm. If not, he will need a permanent pa cemaker, that decision will be made at a different hospital. He is being transferred from here. The pacemaker was to make the transfer more reasonably safe. Complications From The Procedure: None. Estimated Blood Loss: 2 cc. AMADA/JACK Voice ID: [id number] Report ID: [id number]
--- NOTE | 2018-12-14 10:00 | EKG ---
Test Date: 2018-12-14 Test Time: 06:06:40 Size Tester: MONALISA MEASUREMENT RESULTS: Intervals: Rate: 29 RI: 270 QRSD: 112 QT: 562 QTc: 390 Hathorne: P: 80 RI: 270 QRS: -51 T: 92 INTERPRETIVE STATEMENTS: Marked sinus bradycardia with sinus arrhythmia with 1st degree AV block Left axis deviation Nonspecific T wave abnormality Abnormal ECG Compared to ECG 11/12/2018 09:26:49 First degree AV block now present Atrial flutter no longer present Prolonged QT interval no longer present Electronically Signed On 12-14-18 09:59:37 CDT by Shahram Nelson
== END 2018-12-14 07:53 | disposition short-term general hospital (02) ==
LOC: ER 05:49
DX: I45.5 Other specified heart block (principal); R00.1 Bradycardia, unspecified; E11.22 Type 2 diabetes mellitus with diabetic chronic kidney disease; I13.11 Hypertensive heart and chronic kidney disease without heart failure, with stage 5 chronic kidney disease, or end stage renal disease; N18.6 End stage renal disease; Z99.2 Dependence on renal dialysis; Z79.4 Long term (current) use of insulin; Z21 Asymptomatic human immunodeficiency virus [HIV] infection status; Z88.5 Allergy status to narcotic agent; Z85.038 Personal history of other malignant neoplasm of large intestine
CPT/HCPCS: 93005; 85025; 80048; 36415; 83735; 85610; 80076; 84484; 83880; 71045; 33210; C1893; J7030; 96374; 96375; 99291; J2250; J3010

== ENCOUNTER 2018-12-27 14:04 | Inpatient (IN) | payer OTHER ==
[2018-12-27] MEDS ORDERED: LEVALBUTEROL 1.25 MG/3 ML NEB ONE (14:36)
[2018-12-27] MEDS ORDERED: LEVALBUTEROL 0.63 MG/3 ML NEB ONE (14:36)
[2018-12-27 14:41] LABS: Absolute Lymphocytes (CBC) 0.2 K/uL (0.7-4.9); Basophils % 0.1 % (0-1.3); Lymphocytes % 0.7 % (15.3-44.8); MPV 9.6 fL (7.6-11.3); RBC Red Blood Cell Count 3.16 M/uL (4.33-5.43)
--- NOTE | 2018-12-27 15:04 | RAD REPORT ---
EXAM DESCRIPTION: RAD - Foot Left 3 View - 12/27/2018 2:51 pm CLINICAL HISTORY: eval for osteomyelitis 1st toe COMPARISON: No comparisons FINDINGS: Prominent vascular calcification is seen. Soft tissue swelling is seen along the dorsum of the forefoot. No finding is evident to suggest plain x-ray findings of osteomyelitis at this time. M R imaging followup would be suggested for more sensitive detection of osteomyelitis.
--- NOTE | 2018-12-27 15:06 | RAD REPORT ---
EXAM DESCRIPTION: RAD - Chest Single View - 12/27/2018 2:51 pm CLINICAL HISTORY: DYSPNEA Chest pain. COMPARISON: Chest Single View dated 12/14/2018; Chest Single View dated 11/11/2018; Chest Single View dated 11/10/2018; Chest Single View dated 09/15/2018 FINDINGS: Portable technique limits examination quality. Mild interstitial pulmonary edema seen. The heart is moderately enlarged. Right-sided venous catheter tip in the SVC. IMPRESSION: Mild CHF versus volume overload pattern.
[2018-12-27 15:17] LABS: ALT/SGPT 32 U/L (12-78); AST/SGOT 63 U/L (15-37); Albumin 3.5 g/dL (3.4-5.0); Alkaline Phosphatase 90 U/L (45-117); BUN Blood Urea Nitrogen 88 mg/dL (7-18); Bicarbonate 15 mmol/L (21-32); Bilirubin Direct 0.7 mg/dL (0-0.2); Bilirubin Total 1.9 mg/dL (0.2-1.0); Glucose Level 182 mg/dL (74-106); NT PRO-BNP > 175000 pg/mL (<450); Protein, Total 7.5 g/dL (6.4-8.2); Sodium Level 131 mmol/L (136-145); Troponin (Emerg Dept Use Only) 0.05 ng/mL (0.0-0.045)
[2018-12-27 15:18] LABS: Potassium 6.4 mmol/L (3.5-5.1)
[2018-12-27] MEDS ORDERED: FUROSEMIDE 40 MG/4 ML VIAL ONE (15:29)
[2018-12-27] MEDS ORDERED: INSULIN -REGULAR HUMAN 50 UNIT/0.5 ML ML ONE (15:45)
[2018-12-27] MEDS ORDERED: ALBUTEROL 2.5 MG/3 ML NEB SOL ONE (15:45)
[2018-12-27] MEDS ORDERED: SOD POLYSTYREN SUL 15 GM/60 ML UCUP ONE (15:46)
[2018-12-27] MEDS ORDERED: D50W 25 GM/50 ML SYRINGE IV ONE (15:46)
[2018-12-27] MEDS ORDERED: SODIUM BICARB 50 MEQ/50ML VIAL ONE (15:47)
[2018-12-27 15:55] LABS: Blood Morphology Comment NOT SEEN (NOT SEEN); Platelet Estimate ADEQ
[2018-12-27] MEDS ORDERED: CALCIUM GLUCONATE 1gm/100 ML NS (4.65 mEq/100mL) IV ONE ×2 (16:00)
--- NOTE | 2018-12-27 16:07 | ER ---
Nurse's Notes [facility] Name: Fredi Moore Age: 73 yrs Sex: Male : 1945 Arrival Date: 12/27/2018 Time: 14:06 Bed 4 Private MD: Diagnosis: Pulmonary edema;End stage renal disease;Hyperkalemia;Bradycardia, unspecified Presentation: 12/27 14:10 Presenting complaint: Patient states: c/o difficulty breathing, fever, cough since iw yesterday, was 91% on RA, placed on 3LNC , is due for heart stent. Transition of care: patient was not received from another setting of care. Onset of symptoms was December 26, 2018. Risk Assessment: Do you want to hurt yourself or someone else? Patient reports no desire to harm self or others. Initial Sepsis Screen: Does the patient meet any 2 criteria? No. Patient's initial sepsis screen is negative. Does the patient have a suspected source of infection? No. Patient's initial sepsis screen is negative. Care prior to arrival: None. 14:10 Method Of Arrival: [facility] iw 14:10 Acuity: LUCERO 2 iw Triage Assessment: 15:02 General: Appears uncomfortable. Respiratory: Reports shortness of breath at rest on ae4 exertion Onset: The symptoms/episode began/occurred gradually, the patient has moderate shortness of breath. Historical: - Allergies: 14:14 Morphine; iw - Home Meds: 14:14 abacavir 300 mg Oral tab 1 tab 2 times per day [Active]; amlodipine 10 mg tab 1 tab iw once daily [Active]; atazanavir 300 mg Oral 1 cap once daily [Active]; atorvastatin 80 mg Oral tab 1 tab nightly [Active]; furosemide 40 mg Oral tab 1 tab 2 times per day [Active]; gabapentin 600 mg Oral tab 1 tab 3 times per day [Active]; hydroxyzine HCl 25 mg Oral tab 1 tab nightly [Active]; insulin asparte 10 units TID SQ [Active]; insulin glargine subcutaneous Sub-Q daily [Active]; lamivudine 100 mg Oral tab 0.5 tab once daily [Active]; Lyrica 75 mg Oral 2 times per day [Active]; metoprolol tartrate 100 mg Oral tab 1 tab once daily [Active]; ritonavir 100 mg Oral 1 cap once daily [Active]; sevelamer HCl Oral 2 tabs 3 times per day [Active]; Warfarin Oral [Active]; - PMHx: 14:14 blood clots; colon cancer; Diabetes - NIDDM; Dialysis; ESRD; HIV; Hypertension; iw - Immunization history:: Adult Immunizations up to date. - Ebola Screening: : Patient negative for fever greater than or equal to 101.5 degrees Fahrenheit, and additional compatible Ebola Virus Disease symptoms Patient denies exposure to infectious person Patient denies travel to an Ebola-affected area in the 21 days before illness onset No symptoms or risks identified at this time. - Social history:: Smoking status: Patient/guardian denies using tobacco. - Family history:: not pertinent. - Hospitalizations: : Patient was recently seen at. Screenin:25 Abuse screen: Denies threats or abuse. Nutritional screening: No deficits noted. ae4 Tuberculosis screening: No symptoms or risk factors identified. Fall Risk No fall in past 12 months (0 pts). No secondary diagnosis (0 pts). IV access (20 points). Ambulatory Aid- None/Bed Rest/Nurse Assist (0 pts). Gait- Weak (10 pts.). Mental Status- Overestimates/Forgets Limitations (15 pts.). Assessment: 14:06 Reassessment: Patient is shivering and only opens eyes if instructed to. General: ae4 Appears uncomfortable, Behavior is cooperative, anxious, restless. Pain: Denies pain. Neuro: Level of Consciousness is awake, alert, obeys commands, Oriented to person, place, situation. Cardiovascular: Heart tones S1 S2 Skin is cool and dry.. Rhythm is irregular. Respiratory: Airway is patent Respiratory effort is even, shallow, Breath sounds with wheezes bilaterally. GI: No signs and/or symptoms were reported involving the gastrointestinal system. : No signs and/or symptoms were reported regarding the genitourinary system. EENT: No signs and/or symptoms were reported regarding the EENT system. Derm: Skin is pale. Musculoskeletal: Reports Generalized weakness. 15:22 Reassessment: Patient appears slightly more relaxed. Provider is at bedside discussing ae4 plan of care. 19:33 Reassessment: Patient appears in no apparent distress at this time. Patient and/or jb4 family updated on plan of care and expected duration. Pain level reassessed. Patient is alert, oriented x 3, equal unlabored respirations, skin warm/dry/pink. PT's is at the bedside. Pt and family updated on plan of care. 20:50 Reassessment: Patient appears in no apparent distress at this time. Patient and/or jb4 family updated on plan of care and expected duration. Pain level reassessed. Patient is alert, oriented x 3, equal unlabored respirations, skin warm/dry/pink. Pt transferred to ICU via stretcher on non re-breather. RT at the bed side. IV infused paused for transfer. Vital Signs: 14:14 BP 142 / 93; Pulse 42; Resp 20 S; Temp 98.0(O); Pulse Ox 91% on R/A; Weight 95.25 kg; iw Height 5 ft. 11 in. (180.34 cm); 14:30 BP 126 / 82; Pulse 44; Resp 19 S; Pulse Ox 93% on 4 lpm NC; ae4 15:00 BP 102 / 54; Pulse 44; Resp 22; Pulse Ox 96% ; sv 15:42 BP 111 / 92; Pulse 42; Resp 22; Pulse Ox 96% ; sv 16:00 BP 105 / 56; Pulse 49; Resp 21; Pulse Ox 95% ; sv 16:30 BP 117 / 89; Pulse 49; Resp 21; Pulse Ox 95% ; sv 17:00 BP 117 / 89; Pulse 50; Resp 22; Temp 98.2(O); Pulse Ox 100% on 45% BiPAP; ae4 17:30 BP 124 / 56; Pulse 52; Resp 17; Pulse Ox 99% ; sv 18:00 BP 122 / 68; Pulse 53; Resp 20; Pulse Ox 97% ; sv 19:30 BP 116 / 69; Pulse 51; Resp 20; Temp 99.6(A); Pulse Ox 100% on BiPAP; jb4 20:30 BP 123 / 59; Pulse 52; Resp 21; Pulse Ox 97% on 100% Non-rebreather mask; jb4 14:14 Body Mass Index 29.29 (95.25 kg, 180.34 cm) iw ED Course: 14:06 Patient arrived in ED. rn 14:06 Tom Baeza MD is Attending Physician. rn 14:09 Christopher Walton, EASTON is Primary Nurse. ae4 14:13 Triage completed. iw 14:15 Arm band placed on. iw 14:15 EKG done, by ED staff, reviewed by Tom Baeza MD. jb1 14:51 XRAY CXR (1 view) In Process Unspecified. EDMS 14:51 XRAY Foot LEFT 3 View In Process Unspecified. EDMS 15:01 Patient has correct armband on for positive identification. Placed in gown. Bed in low ae4 position. Call light in reach. Side rails up X2. Adult w/ patient. machine lead burner on. Pulse ox on. NIBP on. Warm blanket given. 16:06 Scott Renee MD is Hospitalizing Provider. rn 20:30 No provider procedures requiring assistance completed. Patient admitted, IV remains in jb4 place. Administered Medications: 14:45 Drug: Xopenex 1.25 mg Route: Inhalation; ae4 15:45 Drug: Albuterol 2.5 mg Route: Inhalation; ae4 15:46 Drug: Lasix 40 mg Route: IVP; Site: right antecubital; ae4 15:50 Drug: D50W 50 ml Route: IVP; Site: right antecubital; ae4 17:02 Follow up: Response: No adverse reaction ae4 15:54 Drug: Insulin Regular Human 5 units {Co-Signature: sv (Neida Avelar RN).} Route: ae4 IVP; Site: right antecubital; 16:02 Drug: Sodium Bicarbonate 1 amp Route: IVP; Site: right antecubital; ae4 17:02 Follow up: Response: No adverse reaction ae4 16:07 Drug: Calcium Gluconate 1 grams Route: IVPB; Infused Over: 60 mins; Site: right ae4 antecubital; 17:25 Follow up: Response: No adverse reaction; IV Status: Completed infusion; IV Intake: ae4 100ml 16:45 Drug: Rocephin - (cefTRIAXone) 1 grams Route: IVPB; Infused Over: 30 mins; Site: right ae4 antecubital; 17:02 Follow up: IV Status: Completed infusion; IV Intake: 5ml ae4 16:50 Drug: Lasix 60 mg Route: IVP; Site: right antecubital; ae4 20:54 Follow up: Response: No adverse reaction jb4 16:59 Not Given (Physician Discretion): Kayexalate 15 grams PO once ae4 Intake: 17:02 IV: 5ml; Total: 5ml. ae4 17:25 IV: 100ml; Total: 105ml. ae4 Outcome: 16:06 Decision to Hospitalize by Provider. rn 20:30 Admitted to ICU accompanied by nurse, via stretcher, room ICU 3, with oxygen, on jb4 monitor, with chart. 20:30 Condition: improved 20:30 Discharge instructions given to patient, family, Instructed on the need for admit, Demonstrated understanding of instructions. 21:09 Patient left the ED. jb4 Signatures: Dispatcher [employer] EDWilfredo Hernandez Stephanie, RN RN sv Yahaira Chávez RN EASTON Tom Baeza MD MD rn Bryson, James, RN RN jb4 Christopher Walton RN RN ae4 Neida Avelar RN
--- NOTE | 2018-12-27 16:08 | EDPHYS ---
Physician Documentation [facility] Name: Fredi Moore Age: 73 yrs Sex: Male : 1945 Arrival Date: 12/27/2018 Time: 14:06 Bed 4 Private MD: ED Physician Tom Baeza HPI: 12/27 15:41 This 73 yrs old Male presents to ER via EMS with complaints of Breathing rn Difficulty. 15:41 The patient has shortness of breath at rest. Onset: The symptoms/episode began/occurred rn yesterday. Duration: The symptoms are continuous. The patient's shortness of breath is aggravated by exertion, light activity. Severity of symptoms: At their worst the symptoms were moderate in the emergency department the symptoms are unchanged. The patient has experienced similar episodes in the past. reports increased difficulty breathing since yesterday, non-productive cough, subjective fever and chills. No fever documented. Reports dialysis MWF and sees Dr. Orourke. Reports abdomen sore from coughing but no focal abdominal pain. No vomiting. Did have one loose stool that was non-bloody. Told that needs aortic valve replaced, has another appt tomorrow, but does not have date scheduled, they want his health optimized. . 15:58 Transferred to [facility] last visit for bradycardia, told did not need a pacemaker at rn the time, but also not aware of other recommendations or explanation of bradycardia. . Historical: - Allergies: 14:14 Morphine; iw - Home Meds: 14:14 abacavir 300 mg Oral tab 1 tab 2 times per day [Active]; amlodipine 10 mg tab 1 tab iw once daily [Active]; atazanavir 300 mg Oral 1 cap once daily [Active]; atorvastatin 80 mg Oral tab 1 tab nightly [Active]; furosemide 40 mg Oral tab 1 tab 2 times per day [Active]; gabapentin 600 mg Oral tab 1 tab 3 times per day [Active]; hydroxyzine HCl 25 mg Oral tab 1 tab nightly [Active]; insulin asparte 10 units TID SQ [Active]; insulin glargine subcutaneous Sub-Q daily [Active]; lamivudine 100 mg Oral tab 0.5 tab once daily [Active]; Lyrica 75 mg Oral 2 times per day [Active]; metoprolol tartrate 100 mg Oral tab 1 tab once daily [Active]; ritonavir 100 mg Oral 1 cap once daily [Active]; sevelamer HCl Oral 2 tabs 3 times per day [Active]; Warfarin Oral [Active]; - PMHx: 14:14 blood clots; colon cancer; Diabetes - NIDDM; Dialysis; ESRD; HIV; Hypertension; iw - Immunization history:: Adult Immunizations up to date. - Ebola Screening: : Patient negative for fever greater than or equal to 101.5 degrees Fahrenheit, and additional compatible Ebola Virus Disease symptoms Patient denies exposure to infectious person Patient denies travel to an Ebola-affected area in the 21 days before illness onset No symptoms or risks identified at this time. - Social history:: Smoking status: Patient/guardian denies using tobacco. - Family history:: not pertinent. - Hospitalizations: : Patient was recently seen at. ROS: 15:58 Constitutional: + subjective fever and chills Eyes: Negative for injury, pain, redness, rn and discharge, ENT: Negative for injury, pain, and discharge, Neck: Negative for injury, pain, and swelling, Cardiovascular: Negative for chest pain, palpitations, and edema, Respiratory: Negative for wheezing, and pleuritic chest pain Abdomen/GI: Negative for abdominal pain, nausea, vomiting, and constipation, Back: Negative for injury and pain, MS/Extremity: Negative for injury and deformity, Skin: Negative for injury, rash, and discoloration, Neuro: Negative for headache, numbness, tingling, and seizure. Exam: 15:58 Constitutional: Overweight male, mild to moderate tachypnea, awake and reports sob. rn Head/Face: Normocephalic, atraumatic. ENT: dry MM Cardiovascular: Bradycardic, regular, + systolic murmur Respiratory: + coarse bilateral breath sounds, no wheezing, moderate tachypnea Abdomen/GI: soft, non-tender, no masses Skin: Warm, dry, + dry gangrene of left 1st toe, no open wounds. MS/ Extremity: Pulses equal, no cyanosis. Neurovascular intact. Full, normal range of motion. Equal circumference. Neuro: Awake and alert, GCS 15, oriented to person, place, time, and situation. Vital Signs: 14:14 BP 142 / 93; Pulse 42; Resp 20 S; Temp 98.0(O); Pulse Ox 91% on R/A; Weight 95.25 kg; iw Height 5 ft. 11 in. (180.34 cm); 14:30 BP 126 / 82; Pulse 44; Resp 19 S; Pulse Ox 93% on 4 lpm NC; ae4 15:00 BP 102 / 54; Pulse 44; Resp 22; Pulse Ox 96% ; sv 15:42 BP 111 / 92; Pulse 42; Resp 22; Pulse Ox 96% ; sv 16:00 BP 105 / 56; Pulse 49; Resp 21; Pulse Ox 95% ; sv 16:30 BP 117 / 89; Pulse 49; Resp 21; Pulse Ox 95% ; sv 17:00 BP 117 / 89; Pulse 50; Resp 22; Temp 98.2(O); Pulse Ox 100% on 45% BiPAP; ae4 17:30 BP 124 / 56; Pulse 52; Resp 17; Pulse Ox 99% ; sv 18:00 BP 122 / 68; Pulse 53; Resp 20; Pulse Ox 97% ; sv 19:30 BP 116 / 69; Pulse 51; Resp 20; Temp 99.6(A); Pulse Ox 100% on BiPAP; jb4 20:30 BP 123 / 59; Pulse 52; Resp 21; Pulse Ox 97% on 100% Non-rebreather mask; jb4 14:14 Body Mass Index 29.29 (95.25 kg, 180.34 cm) iw MDM: 14:06 Patient medically screened. rn 15:55 ED course: Admitted to Dr. Renee who is going to come see patient. Requests bipap. . house furnishings supervisor course: Reevaluated patient, states breathing a little better, and still no abdominal tenderness on re-exam. . 16:04 Differential diagnosis: Anemia CHF exacerbation, pneumonia, Pneumothorax pulmonary rn edema, Sepsis. Data reviewed: vital signs, nurses notes, lab test result(s), EKG, radiologic studies, plain films, and as a result, I will admit patient. Counseling: I had a detailed discussion with the patient and/or guardian regarding: the historical points, exam findings, and any diagnostic results supporting the discharge/admit diagnosis, lab results, radiology results, the need for further work-up and treatment in the hospital. Response to treatment: the patient's symptoms have mildly improved after treatment, and as a result, I will admit patient. 16:38 ED course: Consulted with Dr. Bruner for dialysis, requests an additional 60mg lasix rn after 40mg lasix given earlier, and will consult on patient. Requests repeat potassium while in ICU, and then will decide emergent dialysis vs in AM. . 16:52 ED course: Dr. Bruner called back, plans to dialyze patient tonight, dialysis nurse rn coming in about an hour. . 12/27 14:08 Order name: Hepatic Function; Complete Time: 15:29 rn 12/27 14:08 Order name: Blood Culture Adult (2) rn 12/27 14:08 Order name: BMP; Complete Time: 15:29 rn 12/27 14:08 Order name: CBC with Diff; Complete Time: 16:07 rn 12/27 14:08 Order name: NT PRO-BNP; Complete Time: 15:29 rn 12/27 14:08 Order name: Troponin (emerg Dept Use Only); Complete Time: 15:29 rn 12/27 14:08 Order name: XRAY CXR (1 view); Complete Time: 15:10 rn 12/27 14:08 Order name: Flu; Complete Time: 15:10 rn 12/27 14:08 Order name: Procalcitonin; Complete Time: 15:10 rn 12/27 14:08 Order name: XRAY Foot LEFT 3 View; Complete Time: 15:10 rn 12/27 14:20 Order name: Lactate rn 12/27 15:56 Order name: Manual Differential; Complete Time: 16:07 EDIA 12/27 16:07 Order name: ABG rn 12/27 16:08 Order name: BIPAP rn 12/27 14:08 Order name: EKG; Complete Time: 14:09 rn 12/27 14:08 Order name: Cardiac monitoring; Complete Time: 14:45 rn 12/27 14:08 Order name: EKG - Nurse/Tech; Complete Time: 14:46 rn 12/27 14:08 Order name: IV Saline Lock; Complete Time: 14:46 rn 12/27 14:08 Order name: Labs collected and sent; Complete Time: 14:46 rn 12/27 16:37 Order name: CONS Pharmacy Consult EDIA 12/27 14:08 Order name: O2 Per Protocol; Complete Time: 14:46 rn 12/27 14:08 Order name: O2 Sat Monitoring; Complete Time: 14:46 rn Administered Medications: 14:45 Drug: Xopenex 1.25 mg Route: Inhalation; ae4 15:45 Drug: Albuterol 2.5 mg Route: Inhalation; ae4 15:46 Drug: Lasix 40 mg Route: IVP; Site: right antecubital; ae4 15:50 Drug: D50W 50 ml Route: IVP; Site: right antecubital; ae4 17:02 Follow up: Response: No adverse reaction ae4 15:54 Drug: Insulin Regular Human 5 units {Co-Signature: joslyn (Neida Avelar RN).} Route: ae4 IVP; Site: right antecubital; 16:02 Drug: Sodium Bicarbonate 1 amp Route: IVP; Site: right antecubital; ae4 17:02 Follow up: Response: No adverse reaction ae4 16:07 Drug: Calcium Gluconate 1 grams Route: IVPB; Infused Over: 60 mins; Site: right ae4 antecubital; 17:25 Follow up: Response: No adverse reaction; IV Status: Completed infusion; IV Intake: ae4 100ml 16:45 Drug: Rocephin - (cefTRIAXone) 1 grams Route: IVPB; Infused Over: 30 mins; Site: right ae4 antecubital; 17:02 Follow up: IV Status: Completed infusion; IV Intake: 5ml ae4 16:50 Drug: Lasix 60 mg Route: IVP; Site: right antecubital; ae4 20:54 Follow up: Response: No adverse reaction jb4 16:59 Not Given (Physician Discretion): Kayexalate 15 grams PO once ae4 Disposition: 16:04 Critical Care:. rn Disposition: 12/27/18 16:06 Hospitalization ordered by Scott Renee for Inpatient Admission. Preliminary diagnosis are Pulmonary edema, End stage renal disease, Hyperkalemia, Bradycardia, unspecified. - Bed requested for Intensive Care Unit. - Status is Inpatient Admission. jb4 - Condition is Fair. - Problem is an ongoing problem. - Symptoms have improved. UTI on Admission? No Critical care time excluding procedures: 16:04 Critical care time: Bedside Care: 25 minutes, Family Intervention: 5 minutes. Total rn time: 30 minutes Signatures: Dispatcher MedHo Ling Benavides RN RN dw Williams, Irene, RN RN iw Nieto, Roman, MD MD rn Bryson, James, RN RN jb4 Christopher Walton, RN RN ae4 Neida Avelar RN sv Corrections: (The following items were deleted from the chart) 16:09 15:58 Constitutional: Overweight male, mild to moderate tachypnea, awake and reports rn sob. Head/Face: Normocephalic, atraumatic. ENT: dry MM Cardiovascular: Bradycardic, regular, + systolic murmur Respiratory: + coarse bilateral breath sounds, no wheezing, moderate tachypnea Abdomen/GI: soft, non-tender, no masses Skin: Warm, dry MS/ Extremity: Pulses equal, no cyanosis. Neurovascular intact. Full, normal range of motion. Equal circumference. Neuro: Awake and alert, GCS 15, oriented to person, place, time, and situation. rn 18:37 16:06 Hospitalization Ordered by Scott Renee MD for Inpatient Admission. dw Preliminary diagnosis is Pulmonary edema; End stage renal disease; Hyperkalemia; Bradycardia, unspecified. Bed requested for Intensive Care Unit. Status is Inpatient Admission. Condition is Fair. Problem is an ongoing problem. Symptoms have improved. UTI on Admission? No. rn 21:09 18:37 12/27/2018 16:06 Hospitalization Ordered by Scott Renee MD for Inpatient jb4 Admission. Preliminary diagnosis is Pulmonary edema; End stage renal disease; Hyperkalemia; Bradycardia, unspecified. Bed requested for Intensive Care Unit. Status is Inpatient Admission. Condition is Fair. Problem is an ongoing problem. Symptoms have improved. UTI on Admission? No. dw
[2018-12-27 16:21] LABS: Arterial Blood Carboxyhemoglob 1.2 % (0-1.5); Blood Gas Oxyhemoglobin 94.2 % (94-97); Blood O2 Saturation 96.8 % (92-98.5)
[2018-12-27] MEDS ORDERED: Pharmacy Consult 1 EA XX PRN (16:35)
[2018-12-27] MEDS ORDERED: FUROSEMIDE 100 MG/10 ML VIAL IV ONE (16:49)
[2018-12-27] MEDS ORDERED: GLUCAGON 1 MG/VIAL IM PRN (16:49)
[2018-12-27] MEDS ORDERED: CEFTRIAXONE/SWI 1gm 1 GM/10 ML SYR ONE (16:49)
[2018-12-27] MEDS ORDERED: D50W 25 GM/50 ML SYRINGE IV PRN (16:49)
--- NOTE | 2018-12-27 16:51 | P.HP ---
Certification for Inpatient Patient admitted to: Inpatient With expected LOS: >2 Midnights Patient will require the following post-hospital care: None Practitioner: I am a practitioner with admitting privileges, knowledge of patient current condition, hospital course, and medical plan of care. Services: Services provided to patient in accordance with Admission requirements found in Title 42 Section 412.3 of the Code of Federal Regulations Patient History Date of Service: 12/27/18 Reason for admission: Respiratory failure acidosis History of Present Illness: Patient is 73 years of age recurrent hospital admissions on dialysis he did undergo is dialysis recently developed altered mental status worsening shortness of breath Hospital was severe respiratory acidosis and hyperkalemia in addition to elevated white count patient is unresponsive currently on a BiPAP hemodynamically stable also has severe aortic stenosis and had a recent pacemaker placed Allergies morphine Allergy (Verified 09/16/18 00:16) unknown Home Medications: Abacavir Sulfate [Ziagen] 600 mg PO DAILY 08/17/18 Amiodarone HCl [Cordarone*] 100 mg PO DAILY 08/17/18 Aspirin 81 mg PO DAILY 08/17/18 Lamivudine [Lamivudine Hbv] 100 mg PO DAILY 08/17/18 Metoprolol Succinate [Toprol Xl] 25 mg PO DAILY 08/17/18 Ritonavir [Norvir] 100 mg PO DAILY 08/17/18 Ropinirole HCl 0.5 mg PO BEDTIME 08/17/18 Sevelamer Carbonate 2,400 mg PO TIDWM 08/17/18 Cetirizine HCl [Zyrtec*] 10 mg PO DAILY 09/16/18 Lactulose 30 ml PO BID 09/18/18 Atorvastatin Calcium [Lipitor*] 10 mg PO BEDTIME 11/11/18 Benzonatate 1 cap PO TID PRN 11/11/18 Famotidine [Pepcid*] 20 mg PO DAILY 11/11/18 Gabapentin 100 mg PO BEDTIME 11/11/18 Insulin Aspart [Novolog] 10 unit SQ DAILY 11/11/18 Insulin Detemir [Levemir] 12 units SQ DAILY 11/11/18 Levothyroxine Sodium 0.5 tab PO DAILY 11/11/18 Midodrine HCl 1 tab PO TID 11/11/18 Pregabalin [Lyrica*] 75 mg PO BID PRN 11/12/18 - Past Medical/Surgical History Diabetic: Yes -: diabetes -: HTN -: ESRD -MWF -: Hemodialysis -: HIV infection -: COLON CANCER -: Afib -: partial removal of colon -: appendectomy -: fistula to left arm -: PermCath left chest -: pacemaker - Family History Father -: Hypertension - Social History Alcohol use: No CD- Drugs: No Caffeine use: No Review of Systems is unable to be obtained Physical Examination - Vital Signs Temperature: 98 F Blood Pressure: 142/93 Pulse: 42 Respirations: 20 Pulse Ox (%): 91 - Physical Exam General: Moderate distress, Unresponsive HEENT: Atraumatic Neck: Supple Respiratory: Clear to auscultation bilaterally Cardiovascular: No edema, Normal S1 S2 Gastrointestinal: Normal bowel sounds, Soft and benign Musculoskeletal: No clubbing, No swelling Integumentary: Other (Patient appears to have a gangrenous lesion on the right toe) - Studies Laboratory Data (last 24 hrs) 12/27/18 14:20: WBC 33.0 H* D, Hgb 10.4 L, Hct 32.0 L, Plt Count 206 12/27/18 14:20: Sodium 131 L, Potassium 6.4 H*, BUN 88 H, Creatinine 9.30 H*, Glucose 182 H, Total Bilirubin 1.9 H, AST 63 H, ALT 32, Alkaline Phosphatase 90 Microbiology Data (last 24 hrs): 12/27/18 14:36 Nasopharnyx Influenza Type A Antigen Screen - Final 12/27/18 14:36 Nasopharnyx Influenza Type B Antigen Screen - Final Assessment and Plan - Problems (Diagnosis) (1) Respiratory failure Current Visit: No Status: Acute Plan: Patient is 73 years of age HIV-positive end-stage renal disease admitted with acute respiratory distress he has severe aortic stenosis pending aortic wall replacement in addition patient has a pacemaker placed . Patient is hyperkalemia white count is elevated chest x-ray shows cardiomegaly minimal interstitial changes BNP is very elevated patient started on BiPAP for allergy contacted will need emergency dialysis in view of acidosis and hyperkalemia broad-spectrum antibiotics blood cultures Qualifiers: Chronicity: acute - Advance Directives Does patient have a Living Will: No Does patient have a Durable POA for Healthcare: No
[2018-12-27] MEDS ORDERED: Meropenem 500 MG VIAL IV SCH (17:00)
[2018-12-27] MEDS ORDERED: VANCOMYCIN 2.25 GM in NA CHLORIDE 0.9% 500 ML IVPB ONE (18:00)
[2018-12-27] MEDS: Meropenem 500 MG in NA CHLORIDE 0.9% 100 ML IV SCH (18:00)
[2018-12-27] MEDS ORDERED: NA CHLORIDE 0.9% 1,000 ML IV PRN (20:09)
[2018-12-27] MEDS ORDERED: ALBUMIN HUMAN 25% 50 ML IV SCH (21:00)
[2018-12-27] MEDS ORDERED: INSULIN -REGULAR HUMAN 50 UNIT/0.5 ML ML SQ SCH (21:00)
[2018-12-27] MEDS: INSULIN -REGULAR HUMAN 50 UNIT/0.5 ML ML SQ SCH (21:00)
[2018-12-28 05:02] LABS: Absolute Lymphocytes (CBC) 0.4 K/uL (0.7-4.9); Basophils % 0.4 % (0-1.3); Hematocrit 29.1 % (39.6-49.0); Lymphocytes % 1.5 % (15.3-44.8); MPV 9.7 fL (7.6-11.3); RBC Red Blood Cell Count 2.96 M/uL (4.33-5.43)
[2018-12-28 05:31] LABS: Albumin 3.1 g/dL (3.4-5.0); Bilirubin Total 1.2 mg/dL (0.2-1.0); Magnesium 2.6 mg/dL (1.8-2.4); Potassium 5.1 mmol/L (3.5-5.1)
[2018-12-28] MEDS: INSULIN -REGULAR HUMAN 50 UNIT/0.5 ML ML SQ SCH ×4 (07:30→20:17)
--- NOTE | 2018-12-28 07:52 | EKG ---
Test Date: 2018-12-27 Test Time: 14:16:29 Asset Protection Assistant: RAMON MEASUREMENT RESULTS: Intervals: Rate: 44 WI: 308 QRSD: 136 QT: 566 QTc: 483 [place]: P: 93 WI: 308 QRS: -59 T: 85 INTERPRETIVE STATEMENTS: Marked sinus bradycardia with 1st degree AV block Left axis deviation Nonspecific intraventricular block Nonspecific T wave abnormality Abnormal ECG Compared to ECG 12/14/2018 06:06:40 Sinus arrhythmia no longer present T-wave abnormality still present Electronically Signed On 12-28-18 07:51:39 CDT by Shahram Nelson
[2018-12-28] MEDS ORDERED: BENZONATATE 100 MG CAP PO PRN (08:16)
--- NOTE | 2018-12-28 08:20 | RAD REPORT ---
EXAM DESCRIPTION: RAD - Chest Single View - 12/28/2018 6:55 am CLINICAL HISTORY: resp failure Chest pain. COMPARISON: Chest Single View dated 12/27/2018; Chest Single View dated 12/14/2018; Chest Single Vie w dated 11/11/2018; Chest Single View dated 11/10/2018 FINDINGS: Portable technique limits examination quality. Since 12/27/2018, mild improvement in lung aeration is seen. The heart is moderately enlarged in size . Right-sided venous catheter its tip in the SVC.
[2018-12-28] MEDS: RITONAVIR 100 MG PO SCH (09:00)
[2018-12-28] MEDS: ABACAVIR SULFATE 300 MG PO SCH (09:00)
[2018-12-28] MEDS: LAMIVUDINE 100 MG PO SCH (09:00)
[2018-12-28] MEDS: AMIODARONE HCL 200 MG TAB PO SCH (09:00)
[2018-12-28] MEDS ORDERED: LACTULOSE 20 GM/30 ML UCUP PO SCH (09:00)
--- NOTE | 2018-12-28 09:11 | P.PN ---
Subjective Date of Service: 12/28/18 Primary Care Provider: PCP-Josefina; Cardiology-Hector; Nephrology-Dr. Orourke Chief Complaint: Respiratory failure acidosis Subjective: Improving (Patient still requiring oxygen. Patient had dialysis last night and will have again today. Patient is scheduled to have aortic valve replacement within the next 1-2 months.) Physical Examination - Vital Signs Temperature: 98.6 F Blood Pressure: 102/60 Pulse: 76 Respirations: 20 Pulse Ox (%): 100 - Physical Exam General: Alert, Oriented x3, Cooperative, Mild distress HEENT: Atraumatic Neck: Supple Respiratory: Crackles/rales (Crackles to the bases) Cardiovascular: Normal pulses, Regular rate/rhythm Gastrointestinal: Normal bowel sounds, Soft and benign, Non-distended, No tenderness, No masses, No rebound, No guarding Musculoskeletal: No tenderness, No warmth Integumentary: Other (Black eschar noted to the left great toe. Mild edema with mild erythema) Neurological: Normal speech, Normal strength at 5/5 x4 extr, Normal tone, Normal affect - Studies Laboratory Data (last 24 hrs) 12/27/18 14:20: WBC 33.0 H* D, Hgb 10.4 L, Hct 32.0 L, Plt Count 206 12/27/18 14:20: Sodium 131 L, Potassium 6.4 H*, BUN 88 H, Creatinine 9.30 H*, Glucose 182 H, Total Bilirubin 1.9 H, AST 63 H, ALT 32, Alkaline Phosphatase 90 Microbiology Data (last 24 hrs): 12/27/18 14:46 Blood - Blood Anaerobic Blood Culture - Final 12/27/18 14:36 Nasopharnyx Influenza Type A Antigen Screen - Final 12/27/18 14:36 Nasopharnyx Influenza Type B Antigen Screen - Final Medications List Reviewed: Yes Assessment & Plan Discharge Plan: Home Plan to discharge in: Greater than 2 days Physician Review Additional Text: Impression: Acute on chronic respiratory failure with respiratory acidosis secondary to acute on chronic diastolic CHF and severe aortic stenosis Hyperkalemia with end-stage renal disease on hemodialysis Black eschar to the left great toe suspect osteomyelitis Chronic atrial fibrillation not on chronic anti coagulation therapy Diabetes mellitus type 2 non insulin dependent Hypothyroidism HIV Elevated liver function likely related to above Anemia of chronic disease Plan: Acute on chronic respiratory failure with respiratory acidosis secondary to acute on chronic diastolic CHF and severe aortic stenosis: Patient continues on nasal cannula. Patient had around 3500 out from dialysis last night. Dialysis is again scheduled for today. Continue to monitor in/out. Cardiology consulted. Patient is scheduled for aortic valve replacement in the next 1-2 months. Medications reviewed. Patient with black eschar suspect osteomyelitis. Will obtain MRI to further evaluate. Surgery has been consulted. Nephrology already consulted to address dialysis. Cardiology consulted to address CHF and severe aortic stenosis. Will add DVT prophylaxis- heparin. Await further recommendations from cardiology, surgery and nephrology. I will turn the service over to Dr. Loja tomorrow. I will go over the plan of care.. Hyperkalemia with end-stage renal disease on hemodialysis: Potassium now within normal range with hemodialysis. Will continue with hemodialysis. Await further recommendation. Dialysis is scheduled again for today. Black eschar to the left great toe suspect osteomyelitis: Will order MRI to evaluate for possible osteomyelitis. If positive patient will require long- term IV antibiotic therapy. Surgery consulted to further evaluate. Chronic atrial fibrillation not on chronic anti coagulation therapy: Restart amiodarone. Will provide DVT prophylaxis. Restart aspirin. Diabetes mellitus type 2 non insulin dependent: Will check A1c. Will continue with Accu-Cheks and sliding scale. Hypothyroidism: Restart levothyroxine. HIV: Restart HIV medication. Elevated liver function likely related to above: Continue to monitor closely. Anemia of chronic disease: Will check iron and B12 studies. Will monitor hemoglobin. Time Spent Managing Pts Care (In Minutes): 55
[2018-12-28] MEDS: LEVOTHYROXINE SOD 0.025 MG TAB PO SCH (09:31)
[2018-12-28] MEDS: FAMOTIDINE 20 MG TAB PO SCH (09:31)
[2018-12-28] MEDS: ASPIRIN 81 MG CHEWABLE TABLET PO SCH (09:31)
[2018-12-28] MEDS: GABAPENTIN 100 MG CAP PO SCH (09:31)
[2018-12-28] MEDS: MIDODRINE HCL 5 MG TABLET PO SCH ×3 (09:32→20:18)
--- NOTE | 2018-12-28 09:32 | RAD REPORT ---
EXAM DESCRIPTION: MRI - Foot Left Wo Cont - 12/28/2018 9:16 am CLINICAL HISTORY: toes gangrene COMPARISON: Foot Left 3 View dated 12/27/2018 FINDINGS: Soft tissue ulceration with diminished T1 signal and elevated T2 signal is identified in t he distal aspect of the distal phalanx of the great toe. This is most compatible with mild osteomyeli tis. Mild diminished T1 signal and elevated T2 signal is also seen in the middle phalanx of the secon d toe also suspicious for mild osteomyelitis. Elsewhere, no aggressive marrow pattern is observed. No fracture or dislocation seen. No soft tissue mass or hematoma. No evidence of abscess. IMPRESSION: Mild osteomyelitis is suspected involving the first and second toes distally as detailed
[2018-12-28] MEDS ORDERED: VANCOMYCIN/NS 1 gm 1 GM/250 ML BAG IV SCH (09:45)
[2018-12-28] MEDS ORDERED: IPRATROPIUM BROM 0.5MG/2.5ML ONE (09:50)
[2018-12-28] MEDS ORDERED: ALBUTEROL 2.5 MG/3 ML NEB SOL ONE (09:50)
[2018-12-28] MEDS ORDERED: ALBUTEROL 2.5 MG/3 ML NEB SOL NEB PRN (09:51)
[2018-12-28] MEDS ORDERED: IPRATROPIUM BROM 0.5MG/2.5ML NEB PRN (09:51)
[2018-12-28] MEDS ORDERED: LACTULOSE 20 GM/30 ML UCUP PO PRN (09:58)
--- NOTE | 2018-12-28 10:04 | P.CNS ---
Date of Consult: 12/28/18 Reason for Consult: esrd/chf/resp failure/left foot gangreen Primary Care Provider: PCP-Josefina; Cardiology-Hector; Nephrology-Dr. Orourke Chief Complaint: Respiratory failure Allergies No Known Allergies Allergy (Unverified 12/27/18 22:43) Home Medications: Abacavir Sulfate [Ziagen] 600 mg PO DAILY 08/17/18 Amiodarone HCl [Cordarone*] 100 mg PO DAILY 08/17/18 Aspirin 81 mg PO DAILY 08/17/18 Lamivudine [Lamivudine Hbv] 0.5 tab PO DAILY 08/17/18 Ritonavir [Norvir] 100 mg PO DAILY 08/17/18 Ropinirole HCl 0.5 mg PO BEDTIME 08/17/18 Sevelamer Carbonate 2,400 mg PO TIDWM 08/17/18 Cetirizine HCl [Zyrtec*] 10 mg PO DAILY 09/16/18 Lactulose 30 ml PO BID 09/18/18 Benzonatate 1 cap PO TID 11/11/18 Famotidine [Pepcid*] 20 mg PO DAILY 11/11/18 Gabapentin 100 mg PO DAILY 11/11/18 Levothyroxine Sodium 0.5 tab PO DAILY 11/11/18 Midodrine HCl 1 tab PO TID 11/11/18 - Past Medical/Surgical History Diabetic: Yes -: diabetes -: HTN -: ESRD -MWF -: Hemodialysis -: HIV infection -: COLON CANCER -: Afib -: partial removal of colon -: appendectomy -: fistula to left arm -: PermCath left chest -: pacemaker - Family History Father Medical History: Hypertension Notes: patient seen/examined. labs/meds reviewed. patient has ongoing shortness of breath but much improved since yesterday. still with some wheezing/crackles on lung exam. left foot with gangrene. has cough (chornic issue). has non compliance with fluid restriction/he cut his treatment on friday as he had an appointment to go to. breathing treatments with combivent requested and oxygen to keep o2 sats in 90 range. vs reviewed/stable. o2 sats go in high 80s with cough or off oxygen. lungs: few crackles/wheezing, improves with cough. cvs: regular/+ murmur. abd: soft. ext +edema/left foot gangrene. a/p: esrd/htn/pvd /cad, valvular heart disease/? osteomylitis/? bronchitis: on abx. hyperkalemia/ acidosis improved s/p hd yesteday. plan hd again today with uf to get closer to edw. counseled in detail about compliance with dialysis and fluid restriction. patient advsied to take fall precautions. riveter hand (DR. Nelson) on case and DR. Hinkle evaluating the issue with gangrene. patient on broad antibiotics ( vancomycin/meropenem); should also cover bronchitis. plan dialysis for tomorrow again to correct volume status/keep close to edw. - Social History Smoking Status: Never smoker Alcohol use: Yes CD- Drugs: No Caffeine use: Yes Place of Residence: Home Physical Examination Temp Pulse Resp BP Pulse Ox 98.6 F 76 20 102/60 100 12/28/18 09:26 12/28/18 09:26 12/28/18 09:26 12/28/18 09:26 12/28/18 09:26 Laboratory Data (last 24 hrs) 12/27/18 14:20: WBC 33.0 H* D, Hgb 10.4 L, Hct 32.0 L, Plt Count 206 12/27/18 14:20: Sodium 131 L, Potassium 6.4 H*, BUN 88 H, Creatinine 9.30 H*, Glucose 182 H, Total Bilirubin 1.9 H, AST 63 H, ALT 32, Alkaline Phosphatase 90
[2018-12-28 10:38] LABS: Transferrin 196 mg/dL (200-360)
[2018-12-28 10:40] LABS: Ferritin > 40000.0 ng/mL (26-388)
[2018-12-28] MEDS: SEVELAMER CARBONATE 800 MG TABLET PO SCH ×2 (12:00→17:00)
--- NOTE | 2018-12-28 13:24 | CON ---
History Of Present Illness: Mr. Moore came to the hospital with dyspnea and he was found to hav e pulmonary edema. Mr. Moore has critical aortic stenosis. He is being evaluated by the team a t [facility] and [facility] for a TAVR. He also has end-stage renal disease, get s dialysis Friday, Wednesdays, and Fridays. About 2 weeks ago, he had profound bradycardia. We put a temporary wire in. His bradycardia resolved with cessation of metoprolol. He had been on metoprol ol and often metoprolol is difficult for patient with dialysis to take. He is on amiodarone because he frequently has atrial fibrillation and atrial flutter, although he is in sinus rhythm now. He did not require a permanent pacemaker. The temporary wire was removed and he has been in sinus rhythm w ith no episodes of syncope or bradycardia since. He is not having chest pain. He is having shortnes s of breath and when he came to the hospital, he was found to be in mild pulmonary edema. He has had some diuresis and I believe he makes quite a bit of urine. I think he got a lot of diuretics and he will get dialysis today. Physical Examination: General: He is 5 feet 11 inches, 210 pounds. Alert, oriented, pleasant. He is not in distress. Lungs: Reveal sparse basilar crackles. Heart: Reveals a regular rate and rhythm. There is a 3 to 4/6 musical high-pitched systolic ejectio n murmur consistent with aortic stenosis. Imaging: His EKG showed marked sinus bradycardia with first degree AV block. Heart rate 44 in the I CU. His heart rate is about 80 beats per minute. It is listed as 76 in the chart. His blood pressu re is 102/60. Impression: The patient needs dialysis to get rid of the edema. He needs to do whatever he can to m ove up his TAVR date. I think the combination of renal failure, critical aortic stenosis are combini ng to give him a miserable time right now. If they could tell me the name of the director of patient care, I will contact him and see if he can do anything to move up the date. AMADA/JACK Voice ID: [id number] Report ID: [id number]
[2018-12-28] MEDS ORDERED: ROPINIROLE HCL 0.25 MG TAB PO PRN ×2 (15:13→15:26)
--- NOTE | 2018-12-28 15:54 | CON ---
Date of Consultation: 12/28/2018 Reason For Consultation: Left foot wound, rule out osteo. History Of Present Illness: Patient is a 73-year-old gentleman, who came in with difficulty breathin g. Was worked up to have respiratory failure with acidosis. He is a dialysis patient. He was very short of breath. When he came in, he had elevated white count. He had a dry gangrene on his left gr eat toe and I was consulted. Currently, he is breathing better. He states that the wound has been t here for about 2 months. He was in hospital in [place] and he does state that he did have some sort of vascular workup; there is another result that was several months ago. There is no purulent discha rge. There is no fever or chills. There is some dry cough. No dysuria. No sore throat, runny nose , cough, headaches, or dizziness. No chest pain and no current fever or chills. Review of Systems: Otherwise unremarkable. Past Medical History: Significant for end-stage renal disease, aortic stenosis, diabetes, hypertensi on, colon cancer, history of HIV. Past Surgical History: Dialysis catheter, pacemaker, fistula to the left arm, appendectomy, colectom y. Allergies: MORPHINE. Social History: Patient does not smoke or drink. Family History: Significant for hypertension. Physical Examination: Vital Signs: Stable. He is currently afebrile. General: He is awake, alert, and oriented x3. Head and Neck: No masses. Chest: Clear. Heart: Sounds. Abdomen: Soft. Extremities: Diminished dorsalis pedis and posterior tibial pulses. On the great toe of the left fo ot on the distal phalanx, there is approximately a 2 cm area of dry gangrene. There is no erythema s urrounding it. There is no purulence. There is no fluctuance. There is no induration. There is no warmth. Laboratory Data: White count yesterday was 33,000; today is 25.7. There is a left shift. His gas r eviewed, chemistry reviewed. He has uremia with elevated creatinine. His AST and ALT are slightly e levated at 201 and 125. His foot MRI shows mild osteo, first and second toes distally. Chest x-ray showed fluid overload. His blood cultures show gram-positive cocci in clusters. Assessment: A 73-year-old gentleman with multiple medical problems with septicemia, sepsis, osteomye litis. The source I doubt is the foot. I believe more likely the catheter is the culprit. Plan: Recommendation would be to continue the IV antibiotics as ordered. The patient is scheduled f or dialysis today. I recommended as soon as dialysis is over, culture should be done through the cat heter to see if that is a source. If it is, then the catheter needs to be removed and we will see if the fistula is ready for use for dialysis. We will discuss this further with the renal service. As far as the dry gangrene is concerned, I would not do anything at this time regarding that and we reshma uld get an arterial Doppler to assess his vascular status. Plan of care discussed in detail with Dr. Mann. PAPO/JACK Voice ID: [id number] Report ID: [id number]
[2018-12-28] MEDS: ROPINIROLE HCL 0.25 MG TAB PO SCH ×2 (15:59→20:18)
[2018-12-28] MEDS ORDERED: DIPHENHYDRAMINE 25 MG TAB/CAP PO PRN (18:43)
[2018-12-28] MEDS: IPRATROPIUM BROM 0.5MG/2.5ML NEB SCH (20:00)
[2018-12-28] MEDS: ALBUTEROL 2.5 MG/3 ML NEB SOL NEB SCH (20:00)
--- NOTE | 2018-12-28 20:07 | RAD REPORT ---
EXAM DESCRIPTION: US - Upper Lower Extrem Art Multi - 12/28/2018 7:56 pm CLINICAL HISTORY: Leg pain COMPARISON: None FINDINGS: The waveforms of right common femoral and right superficial femoral artery are triphasic. The waveform of the right popliteal artery is biphasic. The waveforms of the right dorsalis pedis and right posterior tibial arteries are monophasic The waveforms of the left common femoral and left superficial femoral arteries are triphasic. The waveform of the left popliteal artery is biphasic The waveform of the left posterior tibial and left dorsalis pedis arteries are monophasic. Mild to moderate plaque is scattered throughout the arteries. IMPRESSION: No high-grade stenosis/occlusion of the proximal and mid arteries of the lower extremiti es bilaterally Moderate disease involving the distal arteries of the lower extremities bilaterally
[2018-12-28] MEDS: Meropenem 500 MG in NA CHLORIDE 0.9% 100 ML IV SCH (20:15)
[2018-12-28] MEDS: HEPARIN 5000 UNIT/ML 1 ML VIAL SQ SCH (20:17)
[2018-12-28] MEDS ORDERED: LIDOCAINE 1% MPF 5 ML VIAL ONE (21:03)
[2018-12-29 05:07] LABS: Absolute Lymphocytes (CBC) 0.4 K/uL (0.7-4.9); Basophils % 0.5 % (0-1.3); Hematocrit 28.3 % (39.6-49.0); Lymphocytes % 2.6 % (15.3-44.8); MPV 9.4 fL (7.6-11.3); RBC Red Blood Cell Count 2.88 M/uL (4.33-5.43)
[2018-12-29 05:27] LABS: Albumin 2.7 g/dL (3.4-5.0); Bilirubin Total 1.2 mg/dL (0.2-1.0); Magnesium 2.4 mg/dL (1.8-2.4); Potassium 4.8 mmol/L (3.5-5.1)
[2018-12-29] MEDS: LEVOTHYROXINE SOD 0.025 MG TAB PO SCH (06:14)
[2018-12-29] MEDS: INSULIN -REGULAR HUMAN 50 UNIT/0.5 ML ML SQ SCH ×4 (07:30→21:00)
[2018-12-29 07:56] VITALS: BMI 29.3
[2018-12-29] MEDS: ALBUTEROL 2.5 MG/3 ML NEB SOL NEB SCH ×2 (08:07→20:00)
[2018-12-29] MEDS: IPRATROPIUM BROM 0.5MG/2.5ML NEB SCH ×2 (08:07→20:00)
[2018-12-29] MEDS: FAMOTIDINE 20 MG TAB PO SCH (08:36)
[2018-12-29] MEDS: GABAPENTIN 100 MG CAP PO SCH (08:36)
[2018-12-29] MEDS: NEPRO SHAKE 237 ML CAN PO SCH (08:36)
[2018-12-29] MEDS: HEPARIN 5000 UNIT/ML 1 ML VIAL SQ SCH ×2 (08:36→21:41)
[2018-12-29] MEDS: AMIODARONE HCL 200 MG TAB PO SCH (08:37)
[2018-12-29] MEDS: SEVELAMER CARBONATE 800 MG TABLET PO SCH ×3 (08:37→16:20)
[2018-12-29] MEDS: MIDODRINE HCL 5 MG TABLET PO SCH ×3 (08:37→21:40)
[2018-12-29] MEDS: LAMIVUDINE 100 MG PO SCH (08:37)
[2018-12-29] MEDS: ASPIRIN 81 MG CHEWABLE TABLET PO SCH (08:37)
[2018-12-29] MEDS: ABACAVIR SULFATE 300 MG PO SCH (08:38)
[2018-12-29] MEDS: RITONAVIR 100 MG PO SCH (08:39)
--- NOTE | 2018-12-29 10:18 | EKG ---
Test Date: 2018-12-28 Test Time: 20:27:16 Batch Heat Treat Operator: JO MEASUREMENT RESULTS: Intervals: Rate: 111 CO: QRSD: 116 QT: 308 QTc: 418 [place]: P: CO: QRS: -28 T: 150 INTERPRETIVE STATEMENTS: Atrial fibrillation with rapid ventricular response Left ventricular hypertrophy with QRS widening ST & T wave abnormality, consider inferolateral ischemia or digitalis effect Abnormal ECG Compared to ECG 12/27/2018 14:16:29 Left ventricular hypertrophy now present ST (T wave) deviation now present Possible ischemia now present Sinus bradycardia no longer present First degree AV block no longer present Left-axis deviation no longer present T-wave abnormality no longer present Electronically Signed On 12-29-18 10:16:10 CDT by Doe Shoemaker
--- NOTE | 2018-12-29 13:17 | P.PN ---
Subjective Date of Service: 12/29/18 Primary Care Provider: PCP-Josefina; Cardiology-Hector; Nephrology-Dr. Orourke Chief Complaint: Respiratory failure Pt seen and examined at bedside. Chart Reviewed. Case DW with Nephrology and cardiology. Pt is currently having HD done at bedside. Pt is complaining of having Nasal allergies. Denies having CP/N/V Review of Systems 10-point ROS is otherwise unremarkable Physical Examination - Vital Signs Temperature: 98 F Blood Pressure: 123/72 Pulse: 99 Respirations: 17 Pulse Ox (%): 97 - Physical Exam General: Alert, In no apparent distress HEENT: Atraumatic, PERRLA, EOMI Neck: Supple, JVD not distended Respiratory: Clear to auscultation bilaterally, Normal air movement Cardiovascular: Regular rate/rhythm, Normal S1 S2 Gastrointestinal: Normal bowel sounds, No tenderness Musculoskeletal: No tenderness Integumentary: No rashes Neurological: Normal speech, Normal tone, Normal affect Lymphatics: No axilla or inguinal lymphadenopathy - Studies Microbiology Data (last 24 hrs): 12/27/18 14:46 Blood - Blood Anaerobic Blood Culture - Final Medications List Reviewed: Yes Assessment And Plan - Current Problems (Diagnosis) (1) Respiratory failure Current Visit: No Status: Acute Plan: Acute respiratory failure 2.2 to CHF exacerbation and -Now on NC and will wean off as tolerated -Currently getting HD here in the hospital -Pt will need to schedule his AVR with his cardiology once his Osteomylitis has been treated -Cardiology is consulted. Appreciated Reccs Qualifiers: Chronicity: acute Respiratory failure complication: hypoxia Qualified Code(s): J96.01 - Acute respiratory failure with hypoxia (2) Diastolic dysfunction Current Visit: No Status: Acute Plan: Acute on chronic Diastolic Dysfunction with -As above (3) Osteomyelitis Current Visit: Yes Status: Acute Plan: Left great toe osteomyelitis -MRI with Mod Osteomyelitis -IV vanc and merrem -Will need IV abx for 6 weeks -Will f.u with Final Cultures Qualifiers: Osteomyelitis type: unspecified type Osteomyelitis location: unspecified site Qualified Code(s): M86.9 - Osteomyelitis, unspecified (4) ESRD (end stage renal disease) Onset Date: 01/31/17 Current Visit: No Status: Chronic Plan: ESRD -Nephrology consulted. Appreciated Reccs -Will continue with HD here in the hospital (5) Atrial fibrillation Current Visit: No Status: Chronic Plan: Chronic Afib -PO amiodraone and Heparin Qualifiers: Atrial fibrillation type: unspecified Qualified Code(s): I48.91 - Unspecified atrial fibrillation (6) Hypertension Onset Date: 10/17/17 Current Visit: No Status: Chronic Qualifiers: Hypertension type: essential hypertension Qualified Code(s): I10 - Essential (primary) hypertension - Plan Pending clinical Improvement at this time. Will continue with HD and IV abx. Will DW with nephrology if IV abx can be done during HD. If we are able to continue with Abx during Dialysis pt can be DC home and f.u with Surgery and Nephrology. Will transfer to the Reg floor. Discharge Plan: Home Plan to discharge in: Greater than 2 days - Code Status/Comfort Care Code Status Assessed: Yes Critical Care: No
[2018-12-29] MEDS ORDERED: ALBUTEROL 2.5 MG/3 ML NEB SOL NEB PRN (15:00)
[2018-12-29] MEDS ORDERED: IPRATROPIUM BROM 0.5MG/2.5ML NEB PRN (15:00)
[2018-12-29] MEDS: Meropenem 500 MG in NA CHLORIDE 0.9% 100 ML IV SCH (17:36)
[2018-12-29] MEDS ORDERED: VANCOMYCIN 1.75 GM in NA CHLORIDE 0.9% 500 ML IVPB SCH (18:00)
[2018-12-29] MEDS ORDERED: ONDANSETRON 4 MG/2 ML VIAL IV PRN (18:13)
--- NOTE | 2018-12-29 18:43 | PN ---
Patient was admitted to Dr. Mann on 12/27/2018. He was seen by Dr. Nelson yesterday. Today 2018, patient has end-stage renal disease, congestive heart failure, atrial fibrillation. He is on a miodarone. He is in sinus rhythm. Has critical aortic stenosis. Apparently, there is a plan for hi m for a TAVR. He is doing better today after dialysis treatment. He is still awaiting his TAVR. Ap parently, we are awaiting a phone call from his champagne maker in [place] to see if they can speed up h is TAVR date or maybe even transfer him to [place] for that procedure. MIGUEL/JACK Voice ID: [id number] Report ID: [id number]
--- NOTE | 2018-12-29 19:00 | PN ---
Date of Progress Note: 12/29/2018 Subjective: Patient is awake, alert. No new complaint. Cultures are pending from his Tesio cathete r. His Doppler reviewed, has no high-grade stenosis or occlusion of the proximal and mid arteries in the lower extremities. Moderate disease involving the distal arteries in the lower extremities with monophasic flow. Objective: Vital Signs: Stable. He is afebrile. His white count is down to 14.8. There is still a little left shift. Physical exam does not show any significant changes. Assessment: Dry gangrene with osteomyelitis, left foot. Recommendations: Patient needs his aortic valve replaced for aortic stenosis given his current issue with osteomyelitis, I would wait at least a couple of weeks prior to consideration for aortic valve replacement. In the meantime, continue IV antibiotics. We will check the cultures to make sure the Tesio catheter is not infected and if that is the case, then he can be discharged and follow up in [facility]. May need debridement of the dry gangrene down the road, but at this time, ere is no surrounding abscess or fluctuance or redness, so no intervention necessary at this time. P gabriel of care discussed with Dr. Loja. /JACK Voice ID: [id number] Report ID: [id number]
[2018-12-29] MEDS: ROPINIROLE HCL 0.25 MG TAB PO SCH (21:40)
--- NOTE | 2018-12-30 04:38 | PN ---
Date of Progress Note: 12/29/2018 Subjective: Patient is seen at the bedside. He has been transferred from ICU. Patient did have guilherme lysis today with 2 L of ultrafiltration. The patient did tolerate treatment well. He is currently s een at the bedside. He denies any fevers, chills, chest pain, shortness of breath, nausea, vomiting, or diarrhea. Objective: Vital Signs: Blood pressure is 103/55, pulse 95, afebrile. General: No acute distress. Heart: Regular rate and rhythm. No murmurs, rubs, gallops. Lungs: Crepitations heard at the bilateral bases. Abdomen: Soft, nontender, nondistended. Extremities: With no significant edema. Laboratory Data: Reviewed. Assessment: 1.End-stage renal disease, on hemodialysis. 2.Acute hypoxemic respiratory failure secondary to congestive heart failure exacerbation. 3.Acute diastolic congestive heart failure. 4.Osteomyelitis. 5.Aortic stenosis. 6.Atrial fibrillation. Plan: Patient is stable from of volume and electrolyte standpoint. Patient will have dialysis tomor row to keep patient on his usual Friday, Friday, Friday schedule. In terms of his osteomyelitis, appropriate antibiotic can be chosen, which will be Friday, Friday, Friday dosing. Followup cultu res and if the patient does require more than dialysis frequency of the antibiotic dosing, he may req uire a central line be placed for off dialysis day antibiotic administration. Case discussed with the patient as well as primary team. Again, next dialysis will be tomorrow. XI Voice ID: [id number] Report ID: [id number]
[2018-12-30] MEDS: LEVOTHYROXINE SOD 0.025 MG TAB PO SCH (05:35)
[2018-12-30 06:14] LABS: Absolute Lymphocytes (CBC) 0.4 K/uL (0.7-4.9); Basophils % 0.9 % (0-1.3); Hematocrit 27.4 % (39.6-49.0); Lymphocytes % 4.2 % (15.3-44.8); MPV 9.5 fL (7.6-11.3)
[2018-12-30 06:44] LABS: Albumin 2.8 g/dL (3.4-5.0); Bilirubin Total 1.4 mg/dL (0.2-1.0); Magnesium 2.3 mg/dL (1.8-2.4); Potassium 4.1 mmol/L (3.5-5.1); Protein, Total 6.5 g/dL (6.4-8.2)
[2018-12-30] MEDS: ASPIRIN 81 MG CHEWABLE TABLET PO SCH (08:17)
[2018-12-30] MEDS: FAMOTIDINE 20 MG TAB PO SCH (08:18)
[2018-12-30] MEDS: AMIODARONE HCL 200 MG TAB PO SCH (08:18)
[2018-12-30] MEDS: GABAPENTIN 100 MG CAP PO SCH (08:18)
[2018-12-30] MEDS: INSULIN -REGULAR HUMAN 50 UNIT/0.5 ML ML SQ SCH ×3 (08:19→16:20)
[2018-12-30] MEDS: SEVELAMER CARBONATE 800 MG TABLET PO SCH ×3 (08:19→17:00)
[2018-12-30] MEDS: HEPARIN 5000 UNIT/ML 1 ML VIAL SQ SCH (08:21)
[2018-12-30] MEDS: LAMIVUDINE 100 MG PO SCH (08:22)
[2018-12-30] MEDS: MIDODRINE HCL 5 MG TABLET PO SCH ×2 (08:22→13:55)
[2018-12-30] MEDS: ABACAVIR SULFATE 300 MG PO SCH (08:23)
[2018-12-30] MEDS: RITONAVIR 100 MG PO SCH (08:26)
[2018-12-30] MEDS: NEPRO SHAKE 237 ML CAN PO SCH ×2 (08:31)
[2018-12-30] MEDS: ALBUTEROL 2.5 MG/3 ML NEB SOL NEB SCH (08:41)
[2018-12-30] MEDS: IPRATROPIUM BROM 0.5MG/2.5ML NEB SCH (08:41)
[2018-12-30 10:46] VITALS: O2SAT 99
--- NOTE | 2018-12-30 12:14 | P.PN ---
Subjective Date of Service: 12/30/18 Primary Care Provider: PCP-Josefina; Cardiology-Hector; Nephrology-Dr. Orourke Chief Complaint: Respiratory failure Pt seen and examined at bedside. Chart Reviewed. Case DW with Nephrology and cardiology. Pt doing well overall. No c/o overnight. This AM seems to be upset about abdominal US. Educated on the need for the US. Review of Systems 10-point ROS is otherwise unremarkable Physical Examination - Vital Signs Temperature: 97.1 F Blood Pressure: 100/60 Pulse: 68 Respirations: 20 Pulse Ox (%): 100 - Physical Exam General: Alert, In no apparent distress HEENT: Atraumatic, PERRLA, EOMI Neck: Supple, JVD not distended Respiratory: Clear to auscultation bilaterally, Normal air movement Cardiovascular: Regular rate/rhythm, Normal S1 S2 Gastrointestinal: Normal bowel sounds, No tenderness Musculoskeletal: No tenderness Integumentary: No rashes Neurological: Normal speech, Normal tone, Normal affect Lymphatics: No axilla or inguinal lymphadenopathy - Studies Microbiology Data (last 24 hrs): 12/27/18 14:46 Blood - Blood Aerobic Blood Culture - Final Staph Aureus 12/27/18 14:46 Blood - Blood Gram Stain - Final 12/27/18 14:46 Blood - Blood Anaerobic Blood Culture - Final 12/27/18 14:20 Blood - Blood Aerobic Blood Culture - Final Staph Aureus 12/27/18 14:20 Blood - Blood Gram Stain - Final 12/27/18 14:20 Blood - Blood Anaerobic Blood Culture - Final Staph Aureus 12/27/18 14:20 Blood - Blood Gram Stain - Final Medications List Reviewed: Yes Assessment And Plan - Current Problems (Diagnosis) (1) Sepsis Current Visit: Yes Status: Acute Plan: Sepsis most likely 2.2 to Bactermia vs Osteomylitis -Blood culture + for Staph Aureus x 2 -Currently on IV vanc Will continue for total fo 6 week for osteomylitis -Wet Gangrenes of the left toe - Now S.P surgical Procedure -Wound culture pending. -Will continue with IV vanc and F.u with Culture Qualifiers: Sepsis type: methicillin susceptible Staphylococcus aureus Sepsis acute organ dysfunction status: with acute organ dysfunction Severe sepsis acute organ dysfunction type: acute respiratory failure Acute respiratory failure type: with hypoxia Severe sepsis shock status: without septic shock Qualified Code(s): A41.01 - Sepsis due to Methicillin susceptible Staphylococcus aureus; R65.20 - Severe sepsis without septic shock; J96.01 - Acute respiratory failure with hypoxia (2) Respiratory failure Current Visit: No Status: Acute Plan: Acute respiratory failure 2.2 to CHF exacerbation and -Now on RA. Doing well overall. -Currently getting HD here in the hospital -Pt will need to schedule his AVR with his cardiology once his Osteomylitis has been treated -Cardiology is consulted. Appreciated Reccs -Pulmonology consulted. Appreciated Reccs Qualifiers: Chronicity: acute Respiratory failure complication: hypoxia Qualified Code(s): J96.01 - Acute respiratory failure with hypoxia (3) Diastolic dysfunction Current Visit: No Status: Acute Plan: Acute on chronic Diastolic Dysfunction with -As above (4) Osteomyelitis Current Visit: Yes Status: Acute Plan: Left great toe osteomyelitis -MRI with Mod Osteomyelitis -IV vanc Now. Merrem DC today -Will need IV abx for 6 weeks -Will f.u with Final Cultures Qualifiers: Osteomyelitis type: unspecified type Osteomyelitis location: unspecified site Qualified Code(s): M86.9 - Osteomyelitis, unspecified (5) Elevated LFTs Current Visit: Yes Status: Acute Plan: Pt with elevated LFT's -Trending Up today -May be related to Medication -Stop all offending agents -Will get US of abdomen to r.o any acute abnormality (6) ESRD (end stage renal disease) Onset Date: 01/31/17 Current Visit: No Status: Chronic Plan: ESRD -Nephrology consulted. Appreciated Reccs -Will continue with HD here in the hospital (7) Atrial fibrillation Current Visit: No Status: Chronic Plan: Chronic Afib -PO amiodraone and Heparin Qualifiers: Atrial fibrillation type: unspecified Qualified Code(s): I48.91 - Unspecified atrial fibrillation (8) Hypertension Onset Date: 10/17/17 Current Visit: No Status: Chronic Qualifiers: Hypertension type: essential hypertension Qualified Code(s): I10 - Essential (primary) hypertension - Plan Pending clinical Improvement at this time. Will continue with HD and IV abx. F.u with US abd Discharge Plan: Home Plan to discharge in: Greater than 2 days - Code Status/Comfort Care Code Status Assessed: Yes Critical Care: No
[2018-12-30 16:19] VITALS: BP 140/60; TEMP 98
--- NOTE | 2018-12-30 16:59 | PN ---
Date of Progress Note: 12/30/2018 Subjective: Patient is awake, alert. No complain. His blood cultures from the catheter are still ne gative. His white count is normal. And he has no pain in his left foot. Objective: His vitals are stable. He is afebrile. His left foot is without change. Assessment: Left toe foot dry gangrene with osteomyelitis. Recommendations: IV antibiotics is ordered. Needs to be evaluated for an aortic stenosis repair, wh ich can probably done in a week or 2. [facility] upon [facility]. /MODL Voice ID: [id number] Report ID: [id number]
[2018-12-30 19:44] LABS: HBsAG Nonreactive (Nonreactive)
--- NOTE | 2018-12-31 12:54 | P.DS ---
Admission Date: 12/27/18 Discharge Date: 12/31/18 Primary Care Provider: PCP-Josefina; Cardiology-Hector; Nephrology-Dr. Orourke Disposition: AMA-LEFT AGAINST MEDICAL ADVIC Reason for Admission: Respiratory failure - Problems (1) Sepsis Status: Acute Qualifiers: Sepsis type: methicillin susceptible Staphylococcus aureus Sepsis acute organ dysfunction status: with acute organ dysfunction Severe sepsis acute organ dysfunction type: acute respiratory failure Acute respiratory failure type: with hypoxia Severe sepsis shock status: without septic shock Qualified Code(s): A41.01 - Sepsis due to Methicillin susceptible Staphylococcus aureus; R65.20 - Severe sepsis without septic shock; J96.01 - Acute respiratory failure with hypoxia (2) Respiratory failure Status: Acute Qualifiers: Chronicity: acute Respiratory failure complication: hypoxia Qualified Code(s): J96.01 - Acute respiratory failure with hypoxia (3) Diastolic dysfunction Status: Acute (4) Osteomyelitis Status: Acute Qualifiers: Osteomyelitis type: unspecified type Osteomyelitis location: unspecified site Qualified Code(s): M86.9 - Osteomyelitis, unspecified (5) Elevated LFTs Status: Acute (6) ESRD (end stage renal disease) Onset Date: 01/31/17 Status: Chronic (7) Atrial fibrillation Status: Chronic Qualifiers: Atrial fibrillation type: unspecified Qualified Code(s): I48.91 - Unspecified atrial fibrillation (8) Hypertension Onset Date: 10/17/17 Status: Chronic Qualifiers: Hypertension type: essential hypertension Qualified Code(s): I10 - Essential (primary) hypertension Brief History of Present Illness: Patient is 73 years of age recurrent hospital admissions on dialysis he did undergo is dialysis recently developed altered mental status worsening shortness of breath Hospital was severe respiratory acidosis and hyperkalemia in addition to elevated white count patient is unresponsive currently on a BiPAP hemodynamically stable also has severe aortic stenosis and had a recent pacemaker placed Hospital Course: Overall during the hospital stay patient remained stable Patient left the hospital AMA. Patient was seen and examined at bedside on the day when patient left against medical advice. Patient was initially admitted to the hospital for sepsis most likely secondary to left toe infection versus bacteremia. Patient has been receiving long-term antibiotics at the residential facility for his bacteremia. Patient has had a total of 3 rounds of 14 days of IV antibiotics for his bacteremia at the other outside facility. Patient however has not been able to have blood cultures that are negative for Staph aureus and thus has been seen by an infectious disease doctor in [place] for further evaluation. While here in the hospital patient was seen by general surgery and had debridement done for his left the wound cultures were collected which were negative for any acute abnormality. Patient was continued on IV antibiotics here in the hospital. Blood cultures like mentioned above did grow Staph aureus and patient was continued on IV antibiotics while here in the hospital. Patient also was seen by nephrology here for end-stage renal disease and was dialyzed in the hospital. Patient's dialysis catheter was removed and replaced as this could be the source of his Staph aureus and his blood. Patient however continued to have the blood cultures positive for Staph aureus. Patient however had declining white count and was doing well overall. Today patient was noted to have elevated liver enzymes, abdominal ultrasound was done. Patient's elevated enzymes are most likely secondary to Benadryl rule use versus Tylenol use here in the hospital it was advised the patient stay here in the hospital to monitor the liver enzymes however patient left the hospital AMA she is to go home and be taking care of at the house. Home health agency that gives patient IV antibiotics was called. Patient was supposed to be on cefazolin 2 g on the day of dialysis and 3 g on the day that he does not received dialysis. Vital Signs/Physical Exam: Temp Pulse Resp BP Pulse Ox 98 F 81 19 140/60 96 12/30/18 16:00 12/30/18 16:00 12/30/18 16:00 12/30/18 16:00 12/30/18 16:00 General: Alert, In no apparent distress HEENT: Atraumatic, PERRLA, EOMI Neck: Supple, JVD not distended Respiratory: Clear to auscultation bilaterally, Normal air movement Cardiovascular: Regular rate/rhythm, Normal S1 S2 Gastrointestinal: Normal bowel sounds, No tenderness Musculoskeletal: No tenderness Integumentary: No rashes Neurological: Normal speech, Normal tone, Normal affect Lymphatics: No axilla or inguinal lymphadenopathy Laboratory Data at Discharge: WBC 10.1 K/uL (4.3-10.9) D 12/30/18 05:38 Hgb 9.5 g/dL (13.6-17.9) L 12/30/18 05:38 Hct 27.4 % (39.6-49.0) L 12/30/18 05:38 Plt Count 161 K/uL (152-406) 12/30/18 05:38 Sodium 133 mmol/L (136-145) L 12/30/18 05:38 Potassium 4.1 mmol/L (3.5-5.1) 12/30/18 05:38 BUN 51 mg/dL (7-18) H 12/30/18 05:38 Creatinine 5.19 mg/dL (0.55-1.3) H* 12/30/18 05:38 Glucose 109 mg/dL (74-106) H 12/30/18 05:38 Magnesium 2.3 mg/dL (1.8-2.4) 12/30/18 05:38 Total Bilirubin 1.4 mg/dL (0.2-1.0) H 12/30/18 05:38 AST 279 U/L (15-37) H 12/30/18 05:38 ALT 353 U/L (12-78) H* D 12/30/18 05:38 Alkaline Phosphatase 86 U/L (45-117) 12/30/18 05:38 Home Medications: Abacavir Sulfate [Ziagen] 600 mg PO DAILY 08/17/18 Amiodarone HCl [Cordarone*] 100 mg PO DAILY 08/17/18 Aspirin 81 mg PO DAILY 08/17/18 Lamivudine [Lamivudine Hbv] 0.5 tab PO DAILY 08/17/18 Ritonavir [Norvir] 100 mg PO DAILY 08/17/18 Ropinirole HCl 0.5 mg PO BEDTIME 08/17/18 Sevelamer Carbonate 2,400 mg PO TIDWM 08/17/18 Cetirizine HCl [Zyrtec*] 10 mg PO DAILY 09/16/18 Lactulose 30 ml PO BID 09/18/18 Benzonatate 1 cap PO TID 11/11/18 Famotidine [Pepcid*] 20 mg PO DAILY 11/11/18 Gabapentin 100 mg PO DAILY 11/11/18 Levothyroxine Sodium 0.5 tab PO DAILY 11/11/18 Midodrine HCl 1 tab PO TID 11/11/18
--- OUTSIDE RECORDS SUMMARY | 2019-01-10 12:24 | XMS REPORT ---
:1945 [facility] [address] [place] [address] [address] [place] [address] Care Team Providers Name Role Phone JANES MARTINEZ Unavailable Unavailable JOSH POE Unavailable Unavailable LEONIE LIPSCOMB Unavailable Unavailable HUMBERTO GUILLEN Unavailable Unavailable YOEL FELICIANO Unavailable Unavailable RUSSELL CALDERON Unavailable Unavailable Problems This patient has no known problems. Allergies, Adverse Reactions, Alerts This patient has no known allergies or adverse reactions. Medications This patient has no known medications. Results Test Description Test Time Test Comments Text Results Atomic Results Result Comments POCT-GLUCOSE METER 2018-12-16 17:56:00 Test Item Value Reference Range Comments POC-GLUCOSE METER (BEAKER) (test 104 mg/dL 70-[address] [facility] [address] [facility] kdzb=6038) [facility] [address] POCT-GLUCOSE [id number] 13:02:00 Test Item Value Reference Range Comments POC-GLUCOSE METER (BEAKER) 104 mg/dL 70-110 TESTED AT [address] (test ugxa=8088) [facility] [address] BASIC METABOLIC [id number] 03:33:00 Test Item Value Reference Range Comments SODIUM (BEAKER) (test 140 meq/L 136-145 mkec=510) POTASSIUM (BEAKER) (test 4.2 meq/L 3.5-5.1 Specimen slightly ojqf=495) hemolyzed CHLORIDE (BEAKER) (test 104 meq/L 98-107 qtak=136) CO2 (BEAKER) (test 25 meq/L 22-29 etsl=120) BLOOD UREA NITROGEN 43 mg/dL 7-21 (BEAKER) (test pavb=169) CREATININE (BEAKER) (test 6.20 mg/dL 0.57-1.25 Specimen slightly tguw=260) hemolyzed GLUCOSE RANDOM (BEAKER) 76 mg/dL 70-105 (test pkin=683) CALCIUM (BEAKER) (test 9.2 mg/dL 8.4-10.2 futk=163) EGFR (BEAKER) (test 9 mL/min/1.73 sq m ESTIMATED GFR IS NOT licf=7329) ACCURATE CREATININE CLEARANCE IN PREDICTING GLOMERULAR FILTRATION RATE. ESTIMATED GFR IS NOT APPLICABLE FOR DIALYSIS PATIENTS. [id number] 03:24:00 Test Item Value Reference Range Comments MAGNESIUM (BEAKER) (test 2.3 mg/dL 1.6-2.6 Specimen slightly hemolyzed mhbi=197) CBC W/PLT COUNT & AUTO [id number] 03:22:00 Test Item Value Reference Range Comments WHITE BLOOD CELL COUNT (BEAKER) (test zsgv=516) 9.6 K/ L 3.5-10.5 RED BLOOD CELL COUNT (BEAKER) (test cqhf=814) 3.29 M/ L 4.63-6.08 HEMOGLOBIN (BEAKER) (test ipix=801) 10.5 GM/DL 13.7-17.5 HEMATOCRIT (BEAKER) (test nwzz=511) 33.4 % 40.1-51.0 MEAN CORPUSCULAR VOLUME (BEAKER) (test tksb=663) 101.5 fL 79.0-92.2 MEAN CORPUSCULAR HEMOGLOBIN (BEAKER) (test 31.9 pg 25.7-32.2 lycs=690) MEAN CORPUSCULAR HEMOGLOBIN CONC (BEAKER) (test 31.4 GM/DL 32.3-36.5 gcav=552) RED CELL DISTRIBUTION WIDTH (BEAKER) (test 15.1 % 11.6-14.4 ptvp=422) PLATELET COUNT (BEAKER) (test xouq=403) 175 K/CU MM 150-450 MEAN PLATELET VOLUME (BEAKER) (test whrz=506) 10.7 fL 9.4-12.4 NUCLEATED RED BLOOD CELLS (BEAKER) (test 0 /100 WBC 0-0 wazc=828) NEUTROPHILS RELATIVE PERCENT (BEAKER) (test 77 % tnfw=742) LYMPHOCYTES RELATIVE PERCENT (BEAKER) (test 7 % xheg=431) MONOCYTES RELATIVE PERCENT (BEAKER) (test 10 % sixe=051) EOSINOPHILS RELATIVE PERCENT (BEAKER) (test 4 % gadi=704) BASOPHILS RELATIVE PERCENT (BEAKER) (test 1 % shyp=333) NEUTROPHILS ABSOLUTE COUNT (BEAKER) (test 7.32 K/ L 1.78-5.38 tekq=848) LYMPHOCYTES ABSOLUTE COUNT (BEAKER) (test 0.70 K/ L 1.32-3.57 lwus=052) MONOCYTES ABSOLUTE COUNT (BEAKER) (test 0.98 K/ L 0.30-0.82 gxmr=245) EOSINOPHILS ABSOLUTE COUNT (BEAKER) (test 0.42 K/ L 0.04-0.54 kryp=916) BASOPHILS ABSOLUTE COUNT (BEAKER) (test 0.10 K/ L 0.01-0.08 srah=938) IMMATURE GRANULOCYTES-RELATIVE PERCENT (BEAKER) 1 % 0-1 (test wppj=3010) POCT-GLUCOSE [id number] 22:39:00 Test Item Value Reference Range Comments POC-GLUCOSE METER (BEAKER) 90 mg/dL 70-110 TESTED AT [address] (test atir=0389) [place] [address] POCT-GLUCOSE [id number] 18:45:00 Test Item Value Reference Range Comments POC-GLUCOSE METER (BEAKER) 86 mg/dL 70-110 TESTED AT [address] (test giob=1341) [place] [id number] POCT-GLUCOSE [id number] 12:18:00 Test Item Value Reference Range Comments POC-GLUCOSE METER (BEAKER) 91 mg/dL 70-110 TESTED AT [address] (test fpcv=1430) [place] [id number] POCT-GLUCOSE [id number] 08:39:00 Test Item Value Reference Range Comments POC-GLUCOSE METER (BEAKER) 74 mg/dL 70-110 TESTED AT [address] (test tmhy=3650) [place] [id number] BASIC METABOLIC [id number] 06:17:00 Test Item Value Reference Range Comments SODIUM (BEAKER) (test 142 meq/L 136-145 tpxe=740) POTASSIUM (BEAKER) (test 4.2 meq/L 3.5-5.1 rrey=650) CHLORIDE (BEAKER) (test 104 meq/L 98-107 jlqp=127) CO2 (BEAKER) (test 28 meq/L 22-29 rwkf=636) BLOOD UREA NITROGEN 31 mg/dL 7-21 (BEAKER) (test bnuz=110) CREATININE (BEAKER) (test 4.88 mg/dL 0.57-1.25 gdla=322) GLUCOSE RANDOM (BEAKER) 90 mg/dL 70-105 (test grgz=382) CALCIUM (BEAKER) (test 9.3 mg/dL 8.4-10.2 reoh=765) EGFR (BEAKER) (test 12 mL/min/1.73 sq m ESTIMATED GFR IS NOT pgio=6496) ACCURATE CREATININE CLEARANCE IN PREDICTING GLOMERULAR FILTRATION RATE. ESTIMATED GFR IS NOT APPLICABLE FOR DIALYSIS PATIENTS. TROPONIN [id number] 05:43:00 Test Item Value Reference Range Comments TROPONIN I (BEAKER) (test nvkv=055) 0.05 ng/mL 0.00-0.03 Troponin I (TnI) levels must [...] failure, acidosis, acute neurological disease, and persistent tachyarrhythmia.[id number] 05:35:00 Test Item Value Reference Range Comments MAGNESIUM (BEAKER) (test zjox=958) 2.3 mg/dL 1.6-2.6 CBC W/PLT COUNT & AUTO [id number] 05:25:00 Test Item Value Reference Range Comments WHITE BLOOD CELL COUNT (BEAKER) (test dsxd=435) 8.0 K/ L 3.5-10.5 RED BLOOD CELL COUNT (BEAKER) (test ymsl=172) 3.13 M/ L 4.63-6.08 HEMOGLOBIN (BEAKER) (test imby=909) 10.1 GM/DL 13.7-17.5 HEMATOCRIT (BEAKER) (test yzdw=104) 31.8 % 40.1-51.0 MEAN CORPUSCULAR VOLUME (BEAKER) (test bwem=230) 101.6 fL 79.0-92.2 MEAN CORPUSCULAR HEMOGLOBIN (BEAKER) (test 32.3 pg 25.7-32.2 qazg=081) MEAN CORPUSCULAR HEMOGLOBIN CONC (BEAKER) (test 31.8 GM/DL 32.3-36.5 qswi=963) RED CELL DISTRIBUTION WIDTH (BEAKER) (test 15.2 % 11.6-14.4 crcl=871) PLATELET COUNT (BEAKER) (test fjrt=392) 158 K/CU MM 150-450 MEAN PLATELET VOLUME (BEAKER) (test ybal=175) 10.5 fL 9.4-12.4 NUCLEATED RED BLOOD CELLS (BEAKER) (test 0 /100 WBC 0-0 lqty=835) NEUTROPHILS RELATIVE PERCENT (BEAKER) (test 84 % gjgv=270) LYMPHOCYTES RELATIVE PERCENT (BEAKER) (test 4 % lqrt=612) MONOCYTES RELATIVE PERCENT (BEAKER) (test 9 % ctmm=303) EOSINOPHILS RELATIVE PERCENT (BEAKER) (test 2 % begf=400) BASOPHILS RELATIVE PERCENT (BEAKER) (test 1 % onzr=677) NEUTROPHILS ABSOLUTE COUNT (BEAKER) (test 6.69 K/ L 1.78-5.38 nrqg=441) LYMPHOCYTES ABSOLUTE COUNT (BEAKER) (test 0.32 K/ L 1.32-3.57 insz=256) MONOCYTES ABSOLUTE COUNT (BEAKER) (test 0.72 K/ L 0.30-0.82 qcrz=182) EOSINOPHILS ABSOLUTE COUNT (BEAKER) (test 0.18 K/ L 0.04-0.54 cwnv=335) BASOPHILS ABSOLUTE COUNT (BEAKER) (test 0.04 K/ L 0.01-0.08 gxci=073) IMMATURE GRANULOCYTES-RELATIVE PERCENT (BEAKER) 0 % 0-1 (test jyzs=1758) POCT-GLUCOSE [id number] 22:18:00 Test Item Value Reference Range Comments POC-GLUCOSE METER (BEAKER) 92 mg/dL 70-110 TESTED AT [address] (test opax=8138) [place] [address] HEPATITIS B SURFACE [id number] 20:20:00 Test Item Value Reference Range Comments HEPATITIS B SURFACE ANTIGEN (2) (BEAKER) (test Nonreactive Nonreactive fxmc=7829) POCT-GLUCOSE [id number] 17:37:00 Test Item Value Reference Range Comments POC-GLUCOSE METER (BEAKER) 102 mg/dL 70-110 TESTED AT [address] (test xmjw=8232) [place] [address] T4, [id number] 16:09:00 Test Item Value Reference Range Comments FREE T4 (BEAKER) (test djew=422) 0.89 ng/dL 0.70-1.48 TSH/FREE T4 IF [id number] 15:35:00 Test Item Value Reference Range Comments THYROID STIMULATING HORMONE (BEAKER) (test 6.53 uIU/mL 0.35-4.94 qvev=642) TROPONIN [id number] 15:04:00 Test Item Value Reference Range Comments TROPONIN I (BEAKER) (test eezg=676) 0.05 ng/mL 0.00-0.03 Troponin I (TnI) levels must [...] acute neurological disease, and persistent tachyarrhythmia.COMPREHENSIVE METABOLIC [id number] 15:02:00 Test Item Value Reference Range Comments TOTAL PROTEIN (BEAKER) 7.0 gm/dL 6.0-8.3 Specimen slightly (test gluc=925) hemolyzed ALBUMIN (BEAKER) (test 3.6 g/dL 3.5-5.0 Specimen slightly kxxq=2451) hemolyzed ALKALINE PHOSPHATASE 68 U/L 40-150 (BEAKER) (test ymvt=953) BILIRUBIN TOTAL (BEAKER) 0.4 mg/dL 0.2-1.2 Specimen slightly (test nhbs=439) hemolyzed SODIUM (BEAKER) (test 132 meq/L 136-145 jewc=434) POTASSIUM (BEAKER) (test 6.3 meq/L 3.5-5.1 Specimen slightly xexi=532) hemolyzed CHLORIDE (BEAKER) (test 98 meq/L 98-107 pdve=401) CO2 (BEAKER) (test 19 meq/L 22-29 rzis=314) BLOOD UREA NITROGEN 76 mg/dL 7-21 (BEAKER) (test eijh=385) CREATININE (BEAKER) (test 8.43 mg/dL 0.57-1.25 Specimen slightly feuh=835) hemolyzed GLUCOSE RANDOM (BEAKER) 77 mg/dL 70-105 (test hjbg=839) CALCIUM (BEAKER) (test 9.5 mg/dL 8.4-10.2 vmnd=803) AST (SGOT) (BEAKER) (test 17 U/L 5-34 Specimen slightly tety=727) hemolyzed ALT (SGPT) (BEAKER) (test < U/L 6-55 Specimen slightly gius=316) hemolyzed EGFR (BEAKER) (test 6 mL/min/1.73 sq m ESTIMATED GFR IS NOT vast=9013) ACCURATE CREATININE CLEARANCE IN PREDICTING GLOMERULAR FILTRATION RATE. ESTIMATED GFR IS NOT APPLICABLE FOR DIALYSIS PATIENTS. B-TYPE NATRIURETIC FACTOR (BNP)2018-12-14 14:16:00 Test Item Value Reference Range Comments B-TYPE NATRIURETIC PEPTIDE (BEAKER) (test 7454 pg/mL 0-100 sbiz=410) [id number] 13:52:00 Test Item Value Reference Range Comments MAGNESIUM (BEAKER) (test 2.7 mg/dL 1.6-2.6 Specimen slightly hemolyzed omvb=735) [id number] 13:52:00 Test Item Value Reference Range Comments PHOSPHORUS (BEAKER) (test 7.4 mg/dL 2.3-4.7 Specimen slightly hemolyzed jmgp=996) CBC W/PLT COUNT & AUTO [id number] 13:30:00 Test Item Value Reference Range Comments WHITE BLOOD CELL COUNT (BEAKER) (test eohu=732) 7.9 K/ L 3.5-10.5 RED BLOOD CELL COUNT (BEAKER) (test bpcd=737) 3.07 M/ L 4.63-6.08 HEMOGLOBIN (BEAKER) (test xujs=093) 9.9 GM/DL 13.7-17.5 HEMATOCRIT (BEAKER) (test qkct=101) 30.9 % 40.1-51.0 MEAN CORPUSCULAR VOLUME (BEAKER) (test kvjr=337) 100.7 fL 79.0-92.2 MEAN CORPUSCULAR HEMOGLOBIN (BEAKER) (test 32.2 pg 25.7-32.2 edhl=439) MEAN CORPUSCULAR HEMOGLOBIN CONC (BEAKER) (test 32.0 GM/DL 32.3-36.5 ivel=125) RED CELL DISTRIBUTION WIDTH (BEAKER) (test 15.3 % 11.6-14.4 srta=847) PLATELET COUNT (BEAKER) (test qhus=849) 162 K/CU MM 150-450 MEAN PLATELET VOLUME (BEAKER) (test ypzg=854) 11.0 fL 9.4-12.4 NUCLEATED RED BLOOD CELLS (BEAKER) (test 0 /100 WBC 0-0 zimt=862) NEUTROPHILS RELATIVE PERCENT (BEAKER) (test 75 % ithc=185) LYMPHOCYTES RELATIVE PERCENT (BEAKER) (test 11 % xyfn=068) MONOCYTES RELATIVE PERCENT (BEAKER) (test 11 % ujes=823) EOSINOPHILS RELATIVE PERCENT (BEAKER) (test 2 % htgh=842) BASOPHILS RELATIVE PERCENT (BEAKER) (test 1 % pykw=966) NEUTROPHILS ABSOLUTE COUNT (BEAKER) (test 5.91 K/ L 1.78-5.38 liqf=320) LYMPHOCYTES ABSOLUTE COUNT (BEAKER) (test 0.86 K/ L 1.32-3.57 djka=297) MONOCYTES ABSOLUTE COUNT (BEAKER) (test 0.84 K/ L 0.30-0.82 upnr=371) EOSINOPHILS ABSOLUTE COUNT (BEAKER) (test 0.17 K/ L 0.04-0.54 nwyc=434) BASOPHILS ABSOLUTE COUNT (BEAKER) (test 0.08 K/ L 0.01-0.08 flrf=321) IMMATURE GRANULOCYTES-RELATIVE PERCENT (BEAKER) 0 % 0-1 (test yahv=0948) BLOOD GAS, [id number] 13:27:00 Test Item Value Reference Range Comments PH VENOUS (BEAKER) (test xqwn=143) 7.36 7.32-7.42 PCO2 VENOUS (BEAKER) (test bzlh=426) 44 mmHg 41-51 PO2 VENOUS (BEAKER) (test naut=663) 39 mmHg 25-40 O2 SATURATION VENOUS (BEAKER) (test aout=434) 74.1 % 40.0-70.0 HCO3 VENOUS (BEAKER) (test ojwn=907) 24 mmol/L 21-29 BASE EXCESS VENOUS (BEAKER) (test ouyg=776) -1.4 mmol/L -2.0-3.0 PATIENT TEMPERATURE (BEAKER) (test gkyd=9809) 36.3 C FIO2 (BEAKER) (test isrj=0483) 21.0 % POCT-GLUCOSE [id number] 13:08:00 Test Item Value Reference Range Comments POC-GLUCOSE METER (BEAKER) 81 mg/dL 70-110 TESTED AT [address] (test qjcu=3120) [facility] [address] RAD, CHEST, 1 VIEW, NON [id number] 12:53:00Reason for exam:-> Undifferentiated hypotensionShould this be performed at the bedside?-> YesFINAL REPORT RAD, CHEST, 1 VIEW, NON DEPT INDICATION: Undifferentiated hypotension COMPARISON: November 20 FINDINGS: Portable frontal view of the chest. IMPRESSION: Support Lines: Right IJ dual-lumen central venous catheter terminates over the superior vena cava. Lungs and pleura : No consolidation is present. No significant effusion. No pneumothorax.Heart and mediastinum: Stable contours. Additional findings: None. Signed: JR Biggs Robert MDReport Verified Date/Time: 12/14/2018 12:53:53 Reading Location: [facility] Radiology Reading Room POCT-GLUCOSE [id number] 08 :00:00 Test Item Value Reference Range Comments POC-GLUCOSE METER (BEAKER) 99 mg/dL 70-110 TESTED AT [address] (test uyfn=8435) [facility] [address] ANG, TUNNELED CATHETER [id number] 12:00:00Reason for exam:-> Hemodialysis patientFINAL REPORT Procedure: Tunneled hemodialysis catheter placement. Central venography. History: End-stage renal disease. Hemodialysis. Metal Turner: Jeremi Morley MD. Engineering Tech: Luci Burks Modality: Sonography and fluoroscopy. DOSE [...] innominate vein. Over the wire a 3 Latvian dilator of the micropuncture sheath was placed. [...] Verified Date/Time: 11/04/2018 12: 00:24 Reading Location: [place] [address] Angio Body Reading Room POCT-GLUCOSE [id number] 11:59:00 Test Item Value Reference Range Comments POC-GLUCOSE METER (BEAKER) 203 mg/dL 70-110 TESTED AT [address] (test vkgy=9025) [facility] [address] BASIC METABOLIC [id number] 06:08:00 Test Item Value Reference Range Comments SODIUM (BEAKER) (test 133 meq/L 136-145 uced=852) POTASSIUM (BEAKER) (test 4.8 meq/L 3.5-5.1 xndl=255) CHLORIDE (BEAKER) (test 99 meq/L 98-107 juxf=068) CO2 (BEAKER) (test 24 meq/L 22-29 bqvu=101) BLOOD UREA NITROGEN 37 mg/dL 7-21 (BEAKER) (test hrhv=159) CREATININE (BEAKER) (test 6.24 mg/dL 0.57-1.25 sjaz=826) GLUCOSE RANDOM (BEAKER) 98 mg/dL 70-105 (test uoks=301) CALCIUM (BEAKER) (test 9.5 mg/dL 8.4-10.2 wsoc=130) EGFR (BEAKER) (test 9 mL/min/1.73 sq m ESTIMATED GFR IS NOT mudi=5983) ACCURATE CREATININE CLEARANCE IN PREDICTING GLOMERULAR FILTRATION RATE. ESTIMATED GFR IS NOT APPLICABLE FOR DIALYSIS PATIENTS. [id number] 06:07:00 Test Item Value Reference Range Comments PHOSPHORUS (BEAKER) (test dngy=037) 5.3 mg/dL 2.3-4.7 [id number] 06:07:00 Test Item Value Reference Range Comments MAGNESIUM (BEAKER) (test jtiw=048) 2.5 mg/dL 1.6-2.6 CBC W/PLT COUNT & AUTO [id number] 05:28:00 Test Item Value Reference Range Comments WHITE BLOOD CELL COUNT (BEAKER) (test zhrq=188) 7.4 K/ L 3.5-10.5 RED BLOOD CELL COUNT (BEAKER) (test rupf=632) 3.18 M/ L 4.63-6.08 HEMOGLOBIN (BEAKER) (test jvga=061) 10.2 GM/DL 13.7-17.5 HEMATOCRIT (BEAKER) (test txzo=179) 31.9 % 40.1-51.0 MEAN CORPUSCULAR VOLUME (BEAKER) (test pifx=794) 100.3 fL 79.0-92.2 MEAN CORPUSCULAR HEMOGLOBIN (BEAKER) (test 32.1 pg 25.7-32.2 vyea=972) MEAN CORPUSCULAR HEMOGLOBIN CONC (BEAKER) (test 32.0 GM/DL 32.3-36.5 mivp=236) RED CELL DISTRIBUTION WIDTH (BEAKER) (test 15.0 % 11.6-14.4 imqy=995) PLATELET COUNT (BEAKER) (test srii=662) 177 K/CU MM 150-450 MEAN PLATELET VOLUME (BEAKER) (test gset=916) 11.6 fL 9.4-12.4 NUCLEATED RED BLOOD CELLS (BEAKER) (test 0 /100 WBC 0-0 aroc=955) NEUTROPHILS RELATIVE PERCENT (BEAKER) (test 73 % trkv=805) LYMPHOCYTES RELATIVE PERCENT (BEAKER) (test 9 % ynqd=128) MONOCYTES RELATIVE PERCENT (BEAKER) (test 11 % kytg=445) EOSINOPHILS RELATIVE PERCENT (BEAKER) (test 4 % uoht=415) BASOPHILS RELATIVE PERCENT (BEAKER) (test 2 % ebnn=901) NEUTROPHILS ABSOLUTE COUNT (BEAKER) (test 5.42 K/ L 1.78-5.38 kpdv=531) LYMPHOCYTES ABSOLUTE COUNT (BEAKER) (test 0.68 K/ L 1.32-3.57 dxhp=792) MONOCYTES ABSOLUTE COUNT (BEAKER) (test 0.78 K/ L 0.30-0.82 ovpz=254) EOSINOPHILS ABSOLUTE COUNT (BEAKER) (test 0.29 K/ L 0.04-0.54 svoe=082) BASOPHILS ABSOLUTE COUNT (BEAKER) (test 0.15 K/ L 0.01-0.08 shsx=913) IMMATURE GRANULOCYTES-RELATIVE PERCENT (BEAKER) 1 % 0-1 (test lrnt=6849) POCT-GLUCOSE [id number] 21:49:00 Test Item Value Reference Range Comments POC-GLUCOSE METER (BEAKER) 155 mg/dL 70-110 TESTED AT [address] (test ehtu=1602) [place] [address] POCT-GLUCOSE [id number] 17:39:00 Test Item Value Reference Range Comments POC-GLUCOSE METER (BEAKER) 79 mg/dL 70-110 TESTED AT [address] (test pvjt=2375) [place] [address] RAD, CHEST, 1 VIEW, NON [id number] 13:18:00Reason for exam:->sob.Should this be performed at [...] MDReport Verified Date/Time: 11/03/2018 13:18:35 Reading Location: [facility] Radiology Reading Room Electronically signed by: STEPHANIE SANTACRUZ M.D. on 01:18 PMPOCT-GLUCOSE [id number] 12:06:00 Test Item Value Reference Range Comments POC-GLUCOSE METER (BEAKER) 85 mg/dL 70-110 TESTED AT [address] (test kisc=6943) [facility] [address] POCT-GLUCOSE [id number] 08:42:00 Test Item Value Reference Range Comments POC-GLUCOSE METER (BEAKER) 87 mg/dL 70-110 TESTED AT [address] (test louw=9184) [facility] [address] BASIC METABOLIC [id number] 06:41:00 Test Item Value Reference Range Comments SODIUM (BEAKER) (test 135 meq/L 136-145 etha=069) POTASSIUM (BEAKER) (test 4.4 meq/L 3.5-5.1 ghok=852) CHLORIDE (BEAKER) (test 100 meq/L 98-107 dukj=472) CO2 (BEAKER) (test 25 meq/L 22-29 lrap=983) BLOOD UREA NITROGEN 28 mg/dL 7-21 (BEAKER) (test ddrg=588) CREATININE (BEAKER) (test 4.95 mg/dL 0.57-1.25 psmk=921) GLUCOSE RANDOM (BEAKER) 86 mg/dL 70-105 (test igvl=277) CALCIUM (BEAKER) (test 9.1 mg/dL 8.4-10.2 kmls=973) EGFR (BEAKER) (test 12 mL/min/1.73 sq m ESTIMATED GFR IS NOT pnau=7896) ACCURATE CREATININE CLEARANCE IN PREDICTING GLOMERULAR FILTRATION RATE. ESTIMATED GFR IS NOT APPLICABLE FOR DIALYSIS PATIENTS. [id number] 06:35:00 Test Item Value Reference Range Comments MAGNESIUM (BEAKER) (test bsnd=367) 2.4 mg/dL 1.6-2.6 PROTHROMBIN TIME/[id number] 06:09:00 Test Item Value Reference Range Comments PROTIME (BEAKER) (test sxas=708) 14.8 seconds 11.9-14.2 INR (BEAKER) (test bsie=335) 1.2 <=5.9 Effective 07/29/2018: PT Reference Range ChangeNew: 11.9-14.2 Previous: 11.7- 14.7RECOMMENDED COUMADIN/WARFARIN INR THERAPY RANGESSTANDARD DOSE: 2.0-3.0 Includes: PROPHYLAXIS for venous thrombosis, systemic embolization; TREATMENT for venous thrombosis and/or pulmonary embolus.HIGH RISK: Target INR is2.5-3.5 for patients wiht mechanical heart valves.CBC W/PLT COUNT & AUTO [id number] 06:01:00 Test Item Value Reference Range Comments WHITE BLOOD CELL COUNT (BEAKER) (test qdxn=272) 6.4 K/ L 3.5-10.5 RED BLOOD CELL COUNT (BEAKER) (test wwba=625) 3.13 M/ L 4.63-6.08 HEMOGLOBIN (BEAKER) (test sxpj=363) 9.8 GM/DL 13.7-17.5 HEMATOCRIT (BEAKER) (test iwkn=205) 30.7 % 40.1-51.0 MEAN CORPUSCULAR VOLUME (BEAKER) (test zify=374) 98.1 fL 79.0-92.2 MEAN CORPUSCULAR HEMOGLOBIN (BEAKER) (test 31.3 pg 25.7-32.2 ghlo=221) MEAN CORPUSCULAR HEMOGLOBIN CONC (BEAKER) (test 31.9 GM/DL 32.3-36.5 gxif=299) RED CELL DISTRIBUTION WIDTH (BEAKER) (test 15.1 % 11.6-14.4 xmyb=290) PLATELET COUNT (BEAKER) (test rfib=539) 171 K/CU MM 150-450 MEAN PLATELET VOLUME (BEAKER) (test aafw=187) 11.9 fL 9.4-12.4 NUCLEATED RED BLOOD CELLS (BEAKER) (test 0 /100 WBC 0-0 wlkm=072) NEUTROPHILS RELATIVE PERCENT (BEAKER) (test 75 % tbhy=238) LYMPHOCYTES RELATIVE PERCENT (BEAKER) (test 10 % uhed=323) MONOCYTES RELATIVE PERCENT (BEAKER) (test 10 % qdba=087) EOSINOPHILS RELATIVE PERCENT (BEAKER) (test 3 % pwlt=085) BASOPHILS RELATIVE PERCENT (BEAKER) (test 2 % hwbn=314) NEUTROPHILS ABSOLUTE COUNT (BEAKER) (test 4.78 K/ L 1.78-5.38 iucy=058) LYMPHOCYTES ABSOLUTE COUNT (BEAKER) (test 0.62 K/ L 1.32-3.57 qfyu=541) MONOCYTES ABSOLUTE COUNT (BEAKER) (test 0.62 K/ L 0.30-0.82 ytlb=364) EOSINOPHILS ABSOLUTE COUNT (BEAKER) (test 0.21 K/ L 0.04-0.54 huuh=280) BASOPHILS ABSOLUTE COUNT (BEAKER) (test 0.10 K/ L 0.01-0.08 wacb=426) IMMATURE GRANULOCYTES-RELATIVE PERCENT (BEAKER) 1 % 0-1 (test cqxz=7323) POCT-GLUCOSE [id number] 20:51:00 Test Item Value Reference Range Comments POC-GLUCOSE METER (BEAKER) 184 mg/dL 70-110 TESTED AT [address] (test mdke=5973) [facility] [address] POCT-GLUCOSE [id number] 18:54:00 Test Item Value Reference Range Comments POC-GLUCOSE METER (BEAKER) 81 mg/dL 70-110 TESTED AT [address] (test ffcj=4869) [facility] [address] POCT-GLUCOSE [id number] 12:00:00 Test Item Value Reference Range Comments POC-GLUCOSE METER (BEAKER) 105 mg/dL 70-110 TESTED AT [address] (test jinz=9557) [facility] [address] POCT-GLUCOSE [id number] 08:30:00 Test Item Value Reference Range Comments POC-GLUCOSE METER (BEAKER) 102 mg/dL 70-110 TESTED AT [address] (test zirr=1234) [facility] [address] BASIC METABOLIC [id number] 05:43:00 Test Item Value Reference Range Comments SODIUM (BEAKER) (test 131 meq/L 136-145 onds=303) POTASSIUM (BEAKER) (test 5.1 meq/L 3.5-5.1 jswf=351) CHLORIDE (BEAKER) (test 97 meq/L 98-107 ewtl=970) CO2 (BEAKER) (test 20 meq/L 22-29 zvtd=238) BLOOD UREA NITROGEN 49 mg/dL 7-21 (BEAKER) (test stem=462) CREATININE (BEAKER) (test 6.79 mg/dL 0.57-1.25 oubh=136) GLUCOSE RANDOM (BEAKER) 102 mg/dL 70-105 (test zuxb=630) CALCIUM (BEAKER) (test 9.9 mg/dL 8.4-10.2 ogdk=475) EGFR (BEAKER) (test 8 mL/min/1.73 sq m ESTIMATED GFR IS NOT yhej=2144) ACCURATE CREATININE CLEARANCE IN PREDICTING GLOMERULAR FILTRATION RATE. ESTIMATED GFR IS NOT APPLICABLE FOR DIALYSIS PATIENTS. [id number] 04:51:00 Test Item Value Reference Range Comments MAGNESIUM (BEAKER) (test jgmn=250) 2.5 mg/dL 1.6-2.6 POCT-GLUCOSE [id number] 20:52:00 Test Item Value Reference Range Comments POC-GLUCOSE METER (BEAKER) 108 mg/dL 70-110 TESTED AT [address] (test zoht=9880) [place] [id number] BLOOD [id number] 20:01:00 Test Item Value Reference Range Comments CULTURE (BEAKER) (test jrkz=9101) No growth in 5 days BLOOD [id number] 20:01:00 Test Item Value Reference Range Comments CULTURE (BEAKER) (test qrmg=1971) No growth in 5 days POCT-GLUCOSE [id number] 17:02:00 Test Item Value Reference Range Comments POC-GLUCOSE METER (BEAKER) 125 mg/dL 70-110 TESTED AT [address] (test nwst=9628) [place] [address] POCT-GLUCOSE [id number] 11:38:00 Test Item Value Reference Range Comments POC-GLUCOSE METER (BEAKER) 128 mg/dL 70-110 TESTED AT [address] (test qmfk=2386) [place] [address] BASIC METABOLIC [id number] 08:12:00 Test Item Value Reference Range Comments SODIUM (BEAKER) (test 132 meq/L 136-145 nfbs=879) POTASSIUM (BEAKER) (test 4.4 meq/L 3.5-5.1 jcjt=464) CHLORIDE (BEAKER) (test 99 meq/L 98-107 qevf=433) CO2 (BEAKER) (test 24 meq/L 22-29 czqf=907) BLOOD UREA NITROGEN 37 mg/dL 7-21 (BEAKER) (test iwjp=579) CREATININE (BEAKER) (test 5.72 mg/dL 0.57-1.25 yvzt=336) GLUCOSE RANDOM (BEAKER) 107 mg/dL 70-105 (test lrni=734) CALCIUM (BEAKER) (test 9.4 mg/dL 8.4-10.2 plme=449) EGFR (BEAKER) (test 10 mL/min/1.73 sq m ESTIMATED GFR IS NOT irfb=6506) ACCURATE CREATININE CLEARANCE IN PREDICTING GLOMERULAR FILTRATION RATE. ESTIMATED GFR IS NOT APPLICABLE FOR DIALYSIS PATIENTS. POCT-GLUCOSE [id number] 08:11:00 Test Item Value Reference Range Comments POC-GLUCOSE METER (BEAKER) 110 mg/dL 70-110 [address] (test lwej=7927) [facility] [address] [id number] 07:53:00 Test Item Value Reference Range Comments MAGNESIUM (BEAKER) (test kyqy=831) 2.4 mg/dL 1.6-2.6 CBC W/PLT COUNT & AUTO [id number] 06:20:00 Test Item Value Reference Range Comments WHITE BLOOD CELL COUNT (BEAKER) (test wzwz=179) 8.6 K/ L 3.5-10.5 RED BLOOD CELL COUNT (BEAKER) (test jyho=925) 3.24 M/ L 4.63-6.08 HEMOGLOBIN (BEAKER) (test vqcn=519) 10.5 GM/DL 13.7-17.5 HEMATOCRIT (BEAKER) (test aydo=219) 32.0 % 40.1-51.0 MEAN CORPUSCULAR VOLUME (BEAKER) (test ptzf=024) 98.8 fL 79.0-92.2 MEAN CORPUSCULAR HEMOGLOBIN (BEAKER) (test 32.4 pg 25.7-32.2 lzdk=635) MEAN CORPUSCULAR HEMOGLOBIN CONC (BEAKER) (test 32.8 GM/DL 32.3-36.5 xyit=523) RED CELL DISTRIBUTION WIDTH (BEAKER) (test 15.0 % 11.6-14.4 tuuw=567) PLATELET COUNT (BEAKER) (test yjea=734) 201 K/CU MM 150-450 MEAN PLATELET VOLUME (BEAKER) (test tmcw=205) 11.3 fL 9.4-12.4 NUCLEATED RED BLOOD CELLS (BEAKER) (test 0 /100 WBC 0-0 mgjs=002) NEUTROPHILS RELATIVE PERCENT (BEAKER) (test 73 % oxua=490) LYMPHOCYTES RELATIVE PERCENT (BEAKER) (test 11 % uirx=130) MONOCYTES RELATIVE PERCENT (BEAKER) (test 10 % yint=570) EOSINOPHILS RELATIVE PERCENT (BEAKER) (test 4 % lmdq=476) BASOPHILS RELATIVE PERCENT (BEAKER) (test 1 % haib=035) NEUTROPHILS ABSOLUTE COUNT (BEAKER) (test 6.25 K/ L 1.78-5.38 idej=781) LYMPHOCYTES ABSOLUTE COUNT (BEAKER) (test 0.92 K/ L 1.32-3.57 unht=499) MONOCYTES ABSOLUTE COUNT (BEAKER) (test 0.83 K/ L 0.30-0.82 kcwh=493) EOSINOPHILS ABSOLUTE COUNT (BEAKER) (test 0.37 K/ L 0.04-0.54 nfhh=740) BASOPHILS ABSOLUTE COUNT (BEAKER) (test 0.10 K/ L 0.01-0.08 hfad=954) IMMATURE GRANULOCYTES-RELATIVE PERCENT (BEAKER) 2 % 0-1 (test jioa=6532) POCT-GLUCOSE [id number] 20:50:00 Test Item Value Reference Range Comments POC-GLUCOSE METER (BEAKER) 140 mg/dL 70-110 TESTED AT [address] (test eewu=7409) [place] [address] POCT-GLUCOSE [id number] 17:28:00 Test Item Value Reference Range Comments POC-GLUCOSE METER (BEAKER) 217 mg/dL 70-110 TESTED AT [address] (test iowr=2113) [place] [address] POCT-GLUCOSE [id number] 11:22:00 Test Item Value Reference Range Comments POC-GLUCOSE METER (BEAKER) 157 mg/dL 70-110 TESTED AT [address] (test mydp=2680) [place] [address] POCT-GLUCOSE [id number] 07:42:00 Test Item Value Reference Range Comments POC-GLUCOSE METER (BEAKER) 130 mg/dL 70-110 TESTED AT [address] (test jyxa=2121) [place] [address] BLOOD [id number] 07:39:00 Test Item Value Reference Range Comments CULTURE (BEAKER) From Aerobic Bottle Only (test bqba=9696) Same organism has been isolated from cultures(s) of the same body site within 3 days. Repeat identification and susceptibility testing performed only after consultation with the clinical microbiology laboratory.Refer to previous culture ofStaphylococcus aureus GRAM STAIN RESULT From aerobic bottle (BEAKER) (test only: gram positive jnpr=2693) cocci in clusters BASIC METABOLIC [id number] 06:48:00 Test Item Value Reference Range Comments SODIUM (BEAKER) (test 138 meq/L 136-145 pyxm=003) POTASSIUM (BEAKER) (test 4.2 meq/L 3.5-5.1 qcpa=692) CHLORIDE (BEAKER) (test 102 meq/L 98-107 kkrv=382) CO2 (BEAKER) (test 26 meq/L 22-29 rcuy=369) BLOOD UREA NITROGEN 24 mg/dL 7-21 (BEAKER) (test qwkp=762) CREATININE (BEAKER) (test 4.13 mg/dL 0.57-1.25 xfor=682) GLUCOSE RANDOM (BEAKER) 106 mg/dL 70-105 (test qcjo=161) CALCIUM (BEAKER) (test 9.0 mg/dL 8.4-10.2 lnvt=947) EGFR (BEAKER) (test 14 mL/min/1.73 sq m ESTIMATED GFR IS NOT indf=5192) ACCURATE CREATININE CLEARANCE IN PREDICTING GLOMERULAR FILTRATION RATE. ESTIMATED GFR IS NOT APPLICABLE FOR DIALYSIS PATIENTS. [id number] 06:33:00 Test Item Value Reference Range Comments MAGNESIUM (BEAKER) (test poka=063) 2.1 mg/dL 1.6-2.6 CBC W/PLT COUNT & AUTO [id number] 04:46:00 Test Item Value Reference Range Comments WHITE BLOOD CELL COUNT (BEAKER) (test wrub=403) 9.1 K/ L 3.5-10.5 RED BLOOD CELL COUNT (BEAKER) (test qcid=872) 3.31 M/ L 4.63-6.08 HEMOGLOBIN (BEAKER) (test atpg=393) 10.3 GM/DL 13.7-17.5 HEMATOCRIT (BEAKER) (test ptfz=203) 32.9 % 40.1-51.0 MEAN CORPUSCULAR VOLUME (BEAKER) (test qggh=370) 99.4 fL 79.0-92.2 MEAN CORPUSCULAR HEMOGLOBIN (BEAKER) (test 31.1 pg 25.7-32.2 dcxr=388) MEAN CORPUSCULAR HEMOGLOBIN CONC (BEAKER) (test 31.3 GM/DL 32.3-36.5 ovup=947) RED CELL DISTRIBUTION WIDTH (BEAKER) (test 15.0 % 11.6-14.4 tenz=834) PLATELET COUNT (BEAKER) (test yzhj=693) 207 K/CU MM 150-450 MEAN PLATELET VOLUME (BEAKER) (test wtkz=718) 11.3 fL 9.4-12.4 NUCLEATED RED BLOOD CELLS (BEAKER) (test 0 /100 WBC 0-0 egzi=405) NEUTROPHILS RELATIVE PERCENT (BEAKER) (test 77 % qrqb=057) LYMPHOCYTES RELATIVE PERCENT (BEAKER) (test 9 % yrha=360) MONOCYTES RELATIVE PERCENT (BEAKER) (test 8 % yhmz=271) EOSINOPHILS RELATIVE PERCENT (BEAKER) (test 4 % xiln=122) BASOPHILS RELATIVE PERCENT (BEAKER) (test 1 % gteo=736) NEUTROPHILS ABSOLUTE COUNT (BEAKER) (test 6.94 K/ L 1.78-5.38 nain=898) LYMPHOCYTES ABSOLUTE COUNT (BEAKER) (test 0.84 K/ L 1.32-3.57 qejk=730) MONOCYTES ABSOLUTE COUNT (BEAKER) (test 0.72 K/ L 0.30-0.82 prmv=874) EOSINOPHILS ABSOLUTE COUNT (BEAKER) (test 0.33 K/ L 0.04-0.54 vred=558) BASOPHILS ABSOLUTE COUNT (BEAKER) (test 0.10 K/ L 0.01-0.08 ygcg=075) IMMATURE GRANULOCYTES-RELATIVE PERCENT (BEAKER) 2 % 0-1 (test beny=2237) POCT-GLUCOSE [id number] 20:45:00 Test Item Value Reference Range Comments POC-GLUCOSE METER (BEAKER) 94 mg/dL 70-110 TESTED AT [address] (test tdsw=6208) [place] [address] POCT-GLUCOSE [id number] 16:56:00 Test Item Value Reference Range Comments POC-GLUCOSE METER (BEAKER) 98 mg/dL 70-110 TESTED AT [address] (test bzqh=9759) [place] [address] POCT-GLUCOSE [id number] 16:23:00 Test Item Value Reference Range Comments POC-GLUCOSE METER (BEAKER) 90 mg/dL 70-110 TESTED AT [address] (test ibpk=7970) [place] [address] POCT-GLUCOSE [id number] 07:53:00 Test Item Value Reference Range Comments POC-GLUCOSE METER (BEAKER) 84 mg/dL 70-110 TESTED AT [address] (test pfzb=4002) [place] [address] BASIC METABOLIC [id number] 06:59:00 Test Item Value Reference Range Comments SODIUM (BEAKER) (test 137 meq/L 136-145 zlhp=601) POTASSIUM (BEAKER) (test 4.1 meq/L 3.5-5.1 kems=950) CHLORIDE (BEAKER) (test 102 meq/L 98-107 zxew=663) CO2 (BEAKER) (test 23 meq/L 22-29 tkmn=460) BLOOD UREA NITROGEN 38 mg/dL 7-21 (BEAKER) (test biig=744) CREATININE (BEAKER) (test 5.73 mg/dL 0.57-1.25 tngh=192) GLUCOSE RANDOM (BEAKER) 87 mg/dL 70-105 (test pwum=545) CALCIUM (BEAKER) (test 9.3 mg/dL 8.4-10.2 kzdk=081) EGFR (BEAKER) (test 10 mL/min/1.73 sq m ESTIMATED GFR IS NOT logc=6429) ACCURATE CREATININE CLEARANCE IN PREDICTING GLOMERULAR FILTRATION RATE. ESTIMATED GFR IS NOT APPLICABLE FOR DIALYSIS PATIENTS. [id number] 06:51:00 Test Item Value Reference Range Comments MAGNESIUM (BEAKER) (test xusf=258) 2.4 mg/dL 1.6-2.6 CBC W/PLT COUNT & AUTO [id number] 05:26:00 Test Item Value Reference Range Comments WHITE BLOOD CELL COUNT (BEAKER) (test ghiq=732) 9.3 K/ L 3.5-10.5 RED BLOOD CELL COUNT (BEAKER) (test lenx=382) 3.07 M/ L 4.63-6.08 HEMOGLOBIN (BEAKER) (test mkjr=575) 9.9 GM/DL 13.7-17.5 HEMATOCRIT (BEAKER) (test djay=145) 30.8 % 40.1-51.0 MEAN CORPUSCULAR VOLUME (BEAKER) (test bzrn=292) 100.3 fL 79.0-92.2 MEAN CORPUSCULAR HEMOGLOBIN (BEAKER) (test 32.2 pg 25.7-32.2 uaic=768) MEAN CORPUSCULAR HEMOGLOBIN CONC (BEAKER) (test 32.1 GM/DL 32.3-36.5 rqja=341) RED CELL DISTRIBUTION WIDTH (BEAKER) (test 15.1 % 11.6-14.4 aucu=534) PLATELET COUNT (BEAKER) (test murh=317) 195 K/CU MM 150-450 MEAN PLATELET VOLUME (BEAKER) (test nwps=855) 11.4 fL 9.4-12.4 NUCLEATED RED BLOOD CELLS (BEAKER) (test 0 /100 WBC 0-0 iebg=428) NEUTROPHILS RELATIVE PERCENT (BEAKER) (test 73 % fmmj=624) LYMPHOCYTES RELATIVE PERCENT (BEAKER) (test 10 % bpid=142) MONOCYTES RELATIVE PERCENT (BEAKER) (test 10 % jfxv=202) EOSINOPHILS RELATIVE PERCENT (BEAKER) (test 4 % ckbb=558) BASOPHILS RELATIVE PERCENT (BEAKER) (test 1 % xkyq=578) NEUTROPHILS ABSOLUTE COUNT (BEAKER) (test 6.76 K/ L 1.78-5.38 kqpg=037) LYMPHOCYTES ABSOLUTE COUNT (BEAKER) (test 0.97 K/ L 1.32-3.57 dpob=381) MONOCYTES ABSOLUTE COUNT (BEAKER) (test 0.92 K/ L 0.30-0.82 plbp=026) EOSINOPHILS ABSOLUTE COUNT (BEAKER) (test 0.39 K/ L 0.04-0.54 xayf=907) BASOPHILS ABSOLUTE COUNT (BEAKER) (test 0.09 K/ L 0.01-0.08 pmfl=570) IMMATURE GRANULOCYTES-RELATIVE PERCENT (BEAKER) 2 % 0-1 (test qcla=2553) POCT-GLUCOSE [id number] 21:43:00 Test Item Value Reference Range Comments POC-GLUCOSE METER (BEAKER) 135 mg/dL 70-110 TESTED AT [address] (test gajk=5454) [place] [address] POCT-GLUCOSE [id number] 17:15:00 Test Item Value Reference Range Comments POC-GLUCOSE METER (BEAKER) 158 mg/dL 70-110 TESTED AT [address] (test nudd=4679) [place] [id number] POCT-GLUCOSE [id number] 14:21:00 Test Item Value Reference Range Comments POC-GLUCOSE METER (BEAKER) 165 mg/dL 70-110 TESTED AT [address] (test ewht=4978) [place] [address] ANG, REMOVAL OF TUNNELED CVC W/O [id number] 14:06:00Reason for exam:-> bacteremiaFINAL REPORT Left IJ tunneled dialysis catheter removal History: Bacteremia Modality: None. Sedation : None Metal Turner: Juan A Holden MD. Engineering Tech: BING Stapleton. Approach: Left anterior chest. Estimated [...] MDReport Verified Date/Time: 10/29/2018 14:06:46 Reading Location: [place] [address] Angio Body Reading Room Electronically signed by: JUAN A HOLDEN MD on 02:06 PMPOCT-GLUCOSE [id number] 07:46:00 Test Item Value Reference Range Comments POC-GLUCOSE METER (BEAKER) 140 mg/dL 70-110 TESTED AT [address] (test ztcv=6074) [facility] [address] BASIC METABOLIC [id number] 06:42:00 Test Item Value Reference Range Comments SODIUM (BEAKER) (test 139 meq/L 136-145 iylo=831) POTASSIUM (BEAKER) (test 3.8 meq/L 3.5-5.1 nrzz=891) CHLORIDE (BEAKER) (test 103 meq/L 98-107 abdc=541) CO2 (BEAKER) (test 26 meq/L 22-29 bhuj=759) BLOOD UREA NITROGEN 25 mg/dL 7-21 (BEAKER) (test hyxi=300) CREATININE (BEAKER) (test 4.06 mg/dL 0.57-1.25 dqxc=675) GLUCOSE RANDOM (BEAKER) 99 mg/dL 70-105 (test vpgg=639) CALCIUM (BEAKER) (test 9.1 mg/dL 8.4-10.2 hwbb=462) EGFR (BEAKER) (test 14 mL/min/1.73 sq m ESTIMATED GFR IS NOT ywxi=6069) ACCURATE CREATININE CLEARANCE IN PREDICTING GLOMERULAR FILTRATION RATE. ESTIMATED GFR IS NOT APPLICABLE FOR DIALYSIS PATIENTS. [id number] 06:36:00 Test Item Value Reference Range Comments MAGNESIUM (BEAKER) (test spdo=148) 2.4 mg/dL 1.6-2.6 CBC W/PLT COUNT & AUTO [id number] 06:00:00 Test Item Value Reference Range Comments WHITE BLOOD CELL COUNT (BEAKER) (test baen=675) 8.9 K/ L 3.5-10.5 RED BLOOD CELL COUNT (BEAKER) (test ivwl=914) 3.33 M/ L 4.63-6.08 HEMOGLOBIN (BEAKER) (test higg=259) 10.6 GM/DL 13.7-17.5 HEMATOCRIT (BEAKER) (test lhov=663) 32.9 % 40.1-51.0 MEAN CORPUSCULAR VOLUME (BEAKER) (test jgir=662) 98.8 fL 79.0-92.2 MEAN CORPUSCULAR HEMOGLOBIN (BEAKER) (test 31.8 pg 25.7-32.2 ipwj=053) MEAN CORPUSCULAR HEMOGLOBIN CONC (BEAKER) (test 32.2 GM/DL 32.3-36.5 vfzi=625) RED CELL DISTRIBUTION WIDTH (BEAKER) (test 14.9 % 11.6-14.4 iqhj=840) PLATELET COUNT (BEAKER) (test hjgb=601) 199 K/CU MM 150-450 MEAN PLATELET VOLUME (BEAKER) (test yjgk=909) 11.6 fL 9.4-12.4 NUCLEATED RED BLOOD CELLS (BEAKER) (test 0 /100 WBC 0-0 rpim=671) NEUTROPHILS RELATIVE PERCENT (BEAKER) (test 75 % rpai=562) LYMPHOCYTES RELATIVE PERCENT (BEAKER) (test 9 % zubp=517) MONOCYTES RELATIVE PERCENT (BEAKER) (test 9 % lgen=178) EOSINOPHILS RELATIVE PERCENT (BEAKER) (test 4 % xgxz=820) BASOPHILS RELATIVE PERCENT (BEAKER) (test 1 % seci=759) NEUTROPHILS ABSOLUTE COUNT (BEAKER) (test 6.66 K/ L 1.78-5.38 vwad=816) LYMPHOCYTES ABSOLUTE COUNT (BEAKER) (test 0.81 K/ L 1.32-3.57 tifi=782) MONOCYTES ABSOLUTE COUNT (BEAKER) (test 0.83 K/ L 0.30-0.82 hhph=740) EOSINOPHILS ABSOLUTE COUNT (BEAKER) (test 0.36 K/ L 0.04-0.54 bcja=322) BASOPHILS ABSOLUTE COUNT (BEAKER) (test 0.07 K/ L 0.01-0.08 iual=685) IMMATURE GRANULOCYTES-RELATIVE PERCENT (BEAKER) 2 % 0-1 (test sggt=9257) POCT-GLUCOSE [id number] 00:22:00 Test Item Value Reference Range Comments POC-GLUCOSE METER (BEAKER) 114 mg/dL 70-110 TESTED AT [address] (test hxrk=0732) [place] [id number] POCT-GLUCOSE [id number] 13:17:00 Test Item Value Reference Range Comments POC-GLUCOSE METER (BEAKER) 127 mg/dL 70-110 TESTED AT [address] (test ibwm=1753) [place] [address] POCT-GLUCOSE [id number] 08:16:00 Test Item Value Reference Range Comments POC-GLUCOSE METER (BEAKER) 95 mg/dL 70-110 TESTED AT [address] (test hfmx=4442) [place] [id number] BASIC METABOLIC [id number] 06:49:00 Test Item Value Reference Range Comments SODIUM (BEAKER) (test 133 meq/L 136-145 invr=189) POTASSIUM (BEAKER) (test 3.9 meq/L 3.5-5.1 opah=036) CHLORIDE (BEAKER) (test 98 meq/L 98-107 yhtp=274) CO2 (BEAKER) (test 24 meq/L 22-29 ljxa=229) BLOOD UREA NITROGEN 45 mg/dL 7-21 (BEAKER) (test qlqc=769) CREATININE (BEAKER) (test 5.45 mg/dL 0.57-1.25 fdbv=467) GLUCOSE RANDOM (BEAKER) 89 mg/dL 70-105 (test wijy=657) CALCIUM (BEAKER) (test 9.2 mg/dL 8.4-10.2 kwte=718) EGFR (BEAKER) (test 10 mL/min/1.73 sq m ESTIMATED GFR IS NOT pcpn=4771) ACCURATE CREATININE CLEARANCE IN PREDICTING GLOMERULAR FILTRATION RATE. ESTIMATED GFR IS NOT APPLICABLE FOR DIALYSIS PATIENTS. [id number] 06:46:00 Test Item Value Reference Range Comments MAGNESIUM (BEAKER) (test tann=526) 2.5 mg/dL 1.6-2.6 CBC W/PLT COUNT & AUTO [id number] 06:21:00 Test Item Value Reference Range Comments WHITE BLOOD CELL COUNT (BEAKER) (test ktfd=399) 8.3 K/ L 3.5-10.5 RED BLOOD CELL COUNT (BEAKER) (test alko=023) 3.16 M/ L 4.63-6.08 HEMOGLOBIN (BEAKER) (test moic=113) 10.2 GM/DL 13.7-17.5 HEMATOCRIT (BEAKER) (test xluo=131) 31.6 % 40.1-51.0 MEAN CORPUSCULAR VOLUME (BEAKER) (test nuyt=547) 100.0 fL 79.0-92.2 MEAN CORPUSCULAR HEMOGLOBIN (BEAKER) (test 32.3 pg 25.7-32.2 sbav=952) MEAN CORPUSCULAR HEMOGLOBIN CONC (BEAKER) (test 32.3 GM/DL 32.3-36.5 duqv=672) RED CELL DISTRIBUTION WIDTH (BEAKER) (test 14.9 % 11.6-14.4 lexd=008) PLATELET COUNT (BEAKER) (test aihd=566) 155 K/CU MM 150-450 MEAN PLATELET VOLUME (BEAKER) (test eauu=125) 11.8 fL 9.4-12.4 NUCLEATED RED BLOOD CELLS (BEAKER) (test 0 /100 WBC 0-0 dodb=868) NEUTROPHILS RELATIVE PERCENT (BEAKER) (test 70 % iznz=095) LYMPHOCYTES RELATIVE PERCENT (BEAKER) (test 10 % zjjd=796) MONOCYTES RELATIVE PERCENT (BEAKER) (test 12 % abxm=344) EOSINOPHILS RELATIVE PERCENT (BEAKER) (test 6 % sjru=714) BASOPHILS RELATIVE PERCENT (BEAKER) (test 1 % szjh=298) NEUTROPHILS ABSOLUTE COUNT (BEAKER) (test 5.80 K/ L 1.78-5.38 pcwj=942) LYMPHOCYTES ABSOLUTE COUNT (BEAKER) (test 0.86 K/ L 1.32-3.57 tthl=477) MONOCYTES ABSOLUTE COUNT (BEAKER) (test 0.96 K/ L 0.30-0.82 utkl=193) EOSINOPHILS ABSOLUTE COUNT (BEAKER) (test 0.48 K/ L 0.04-0.54 lyze=803) BASOPHILS ABSOLUTE COUNT (BEAKER) (test 0.09 K/ L 0.01-0.08 fanq=335) IMMATURE GRANULOCYTES-RELATIVE PERCENT (BEAKER) 2 % 0-1 (test ldrr=5344) POCT-GLUCOSE [id number] 15:51:00 Test Item Value Reference Range Comments POC-GLUCOSE METER (BEAKER) 126 mg/dL 70-110 TESTED AT [address] (test rmra=3001) [place] [address] RAD, CHEST, 1 VIEW, NON [id number] 15:03:00Reason for exam:->LIJ CVC placementShould this be [...] Verified Date/Time : 10/27/2018 15:03:06 Reading Location: [place] [address] Angio Body Reading Room POCT- GLUCOSE [id number] 12:34:00 Test Item Value Reference Range Comments POC-GLUCOSE METER (BEAKER) 220 mg/dL 70-110 TESTED AT [address] (test tynf=6842) [place] [address] POCT-GLUCOSE [id number] 12:33:00 Test Item Value Reference Range Comments POC-GLUCOSE METER (BEAKER) 118 mg/dL 70-110 TESTED AT [address] (test fmvh=5578) [place] [id number] BASIC METABOLIC [id number] 05:06:00 Test Item Value Reference Range Comments SODIUM (BEAKER) (test 137 meq/L 136-145 fzit=306) POTASSIUM (BEAKER) (test 3.7 meq/L 3.5-5.1 jmgm=308) CHLORIDE (BEAKER) (test 104 meq/L 98-107 gxyp=305) CO2 (BEAKER) (test 23 meq/L 22-29 ahdr=540) BLOOD UREA NITROGEN 32 mg/dL 7-21 (BEAKER) (test nnvk=299) CREATININE (BEAKER) (test 3.88 mg/dL 0.57-1.25 cvxs=772) GLUCOSE RANDOM (BEAKER) 122 mg/dL 70-105 (test xpip=698) CALCIUM (BEAKER) (test 9.6 mg/dL 8.4-10.2 ilnz=931) EGFR (BEAKER) (test 15 mL/min/1.73 sq m ESTIMATED GFR IS NOT qzko=6872) ACCURATE CREATININE CLEARANCE IN PREDICTING GLOMERULAR FILTRATION RATE. ESTIMATED GFR IS NOT APPLICABLE FOR DIALYSIS PATIENTS. [id number] 04:49:00 Test Item Value Reference Range Comments MAGNESIUM (BEAKER) (test hmrh=380) 2.3 mg/dL 1.6-2.6 CBC W/PLT COUNT & AUTO [id number] 04:46:00 Test Item Value Reference Range Comments WHITE BLOOD CELL COUNT (BEAKER) (test jsua=382) 8.8 K/ L 3.5-10.5 RED BLOOD CELL COUNT (BEAKER) (test hlrv=743) 3.09 M/ L 4.63-6.08 HEMOGLOBIN (BEAKER) (test gupz=562) 9.9 GM/DL 13.7-17.5 HEMATOCRIT (BEAKER) (test hska=953) 31.3 % 40.1-51.0 MEAN CORPUSCULAR VOLUME (BEAKER) (test grhu=127) 101.3 fL 79.0-92.2 MEAN CORPUSCULAR HEMOGLOBIN (BEAKER) (test 32.0 pg 25.7-32.2 xenc=907) MEAN CORPUSCULAR HEMOGLOBIN CONC (BEAKER) (test 31.6 GM/DL 32.3-36.5 dgng=101) RED CELL DISTRIBUTION WIDTH (BEAKER) (test 15.1 % 11.6-14.4 igym=682) PLATELET COUNT (BEAKER) (test kmsa=959) 147 K/CU MM 150-450 MEAN PLATELET VOLUME (BEAKER) (test arrp=795) 11.6 fL 9.4-12.4 NUCLEATED RED BLOOD CELLS (BEAKER) (test 0 /100 WBC 0-0 bkpq=608) NEUTROPHILS RELATIVE PERCENT (BEAKER) (test 72 % bqlc=611) LYMPHOCYTES RELATIVE PERCENT (BEAKER) (test 8 % nwma=368) MONOCYTES RELATIVE PERCENT (BEAKER) (test 12 % wwgc=173) EOSINOPHILS RELATIVE PERCENT (BEAKER) (test 5 % maww=206) BASOPHILS RELATIVE PERCENT (BEAKER) (test 1 % xkba=422) NEUTROPHILS ABSOLUTE COUNT (BEAKER) (test 6.37 K/ L 1.78-5.38 qyml=655) LYMPHOCYTES ABSOLUTE COUNT (BEAKER) (test 0.72 K/ L 1.32-3.57 hwbg=491) MONOCYTES ABSOLUTE COUNT (BEAKER) (test 1.07 K/ L 0.30-0.82 umnd=402) EOSINOPHILS ABSOLUTE COUNT (BEAKER) (test 0.44 K/ L 0.04-0.54 oobb=726) BASOPHILS ABSOLUTE COUNT (BEAKER) (test 0.08 K/ L 0.01-0.08 guei=052) IMMATURE GRANULOCYTES-RELATIVE PERCENT (BEAKER) 1 % 0-1 (test soqg=1608) POCT-GLUCOSE [id number] 22:42:00 Test Item Value Reference Range Comments POC-GLUCOSE METER (BEAKER) 143 mg/dL 70-110 TESTED AT [address] (test bbxl=8506) [place] [address] POCT-GLUCOSE [id number] 19:01:00 Test Item Value Reference Range Comments POC-GLUCOSE METER (BEAKER) 175 mg/dL 70-110 TESTED AT [address] (test njrb=9974) [place] [address] POCT-GLUCOSE [id number] 12:50:00 Test Item Value Reference Range Comments POC-GLUCOSE METER (BEAKER) 122 mg/dL 70-110 TESTED AT [address] (test gdtp=3398) [place] [address] BLOOD [id number] 10:24:00 Test Item Value Reference Range Comments CULTURE (BEAKER) From Aerobic And Anaerobic (test knfd=1915) Bottles Same organism has been isolated from cultures(s) of the same body site within 3 days. Repeat identification and susceptibility testing performed only after consultation with the clinical microbiology laboratory.Refer to previous culture ofStaphylococcus aureus GRAM STAIN RESULT From aerobic and (BEAKER) (test anaerobic bottles: lbed=9225) gram positive cocci in clusters BLOOD [id number] 10:22:00 Test Item Value Reference Range Comments CULTURE (BEAKER) (test STAPHYLOCOCCUS AUREUS From Aerobic And qbbb=6932) Anaerobic Bottles Staphylococcus aureus Clindamycin (test code=10) Erythromycin (test code=4) Linezolid (test code=40) Nitrofurantoin (test code=23) Oxacillin (test code=14) Rifampin (test code=43) Tetracycline (test code=2) Trimethoprim + Sulfamethoxazole (test code=47) Vancomycin (test code=13) GRAM STAIN RESULT From aerobic and (BEAKER) (test yhdu=1922) anaerobic bottles: gram positive cocci in clusters PROTHROMBIN [id number] 07:36:00 Test Item Value Reference Range Comments PROTIME (BEAKER) (test nysw=773) 15.6 seconds 11.9-14.2 INR (BEAKER) (test qmwx=642) 1.3 <=5.9 Effective 07/29/2018: PT Reference Range ChangeNew: 11.9-14.2 Previous: 11.7- 14.7RECOMMENDED COUMADIN/WARFARIN INR THERAPY RANGESSTANDARD DOSE: 2.0-3.0 Includes: PROPHYLAXIS for venous thrombosis, systemic embolization; TREATMENT for venous thrombosis and/or pulmonary embolus.HIGH RISK: Target INR is2.5-3.5 for patients wiht mechanical heart valves.POCT-GLUCOSE [id number] 07:31:00 Test Item Value Reference Range Comments POC-GLUCOSE METER (BEAKER) 127 mg/dL 70-110 TESTED AT [address] (test kgzt=8341) [facility] [address] RAD, CHEST, 1 VIEW, NON [id number] 04:36:00Reason for exam:->respiratory failureShould this be performed [...] MDReport Verified Date/Time: 10/26/2018 04:36:35 BASIC METABOLIC [id number] 04:30:00 Test Item Value Reference Range Comments SODIUM (BEAKER) (test 131 meq/L 136-145 paro=904) POTASSIUM (BEAKER) (test 4.3 meq/L 3.5-5.1 abnc=272) CHLORIDE (BEAKER) (test 98 meq/L 98-107 zebu=743) CO2 (BEAKER) (test 20 meq/L 22-29 pwmf=915) BLOOD UREA NITROGEN 46 mg/dL 7-21 (BEAKER) (test jxsl=951) CREATININE (BEAKER) (test 5.26 mg/dL 0.57-1.25 vefu=374) GLUCOSE RANDOM (BEAKER) 130 mg/dL 70-105 (test rvvs=210) CALCIUM (BEAKER) (test 9.8 mg/dL 8.4-10.2 gtgs=614) EGFR (BEAKER) (test 11 mL/min/1.73 sq m ESTIMATED GFR IS NOT tifa=9297) ACCURATE CREATININE CLEARANCE IN PREDICTING GLOMERULAR FILTRATION RATE. ESTIMATED GFR IS NOT APPLICABLE FOR DIALYSIS PATIENTS. [id number] 04:24:00 Test Item Value Reference Range Comments PHOSPHORUS (BEAKER) (test jkae=127) 4.2 mg/dL 2.3-4.7 [id number] 04:24:00 Test Item Value Reference Range Comments MAGNESIUM (BEAKER) (test pjvy=618) 2.7 mg/dL 1.6-2.6 HEPATIC FUNCTION [id number] 04:24:00 Test Item Value Reference Range Comments TOTAL PROTEIN (BEAKER) (test pvrw=175) 6.8 gm/dL 6.0-8.3 ALBUMIN (BEAKER) (test erje=1970) 3.4 g/dL 3.5-5.0 BILIRUBIN TOTAL (BEAKER) (test bzki=184) 1.6 mg/dL 0.2-1.2 BILIRUBIN DIRECT (BEAKER) (test mwuj=003) 0.8 mg/dL 0.1-0.5 ALKALINE PHOSPHATASE (BEAKER) (test qghq=216) 96 U/L 40-150 AST (SGOT) (BEAKER) (test nspv=389) 23 U/L 5-34 ALT (SGPT) (BEAKER) (test mbrw=142) 10 U/L 6-55 CBC W/PLT COUNT & AUTO [id number] 04:10:00 Test Item Value Reference Range Comments WHITE BLOOD CELL COUNT (BEAKER) (test mkaf=515) 11.2 K/ L 3.5-10.5 RED BLOOD CELL COUNT (BEAKER) (test tnhd=349) 3.28 M/ L 4.63-6.08 HEMOGLOBIN (BEAKER) (test ruck=071) 10.4 GM/DL 13.7-17.5 HEMATOCRIT (BEAKER) (test gwcf=597) 33.9 % 40.1-51.0 MEAN CORPUSCULAR VOLUME (BEAKER) (test xgkg=421) 103.4 fL 79.0-92.2 MEAN CORPUSCULAR HEMOGLOBIN (BEAKER) (test 31.7 pg 25.7-32.2 zcry=998) MEAN CORPUSCULAR HEMOGLOBIN CONC (BEAKER) (test 30.7 GM/DL 32.3-36.5 jbfe=640) RED CELL DISTRIBUTION WIDTH (BEAKER) (test 15.1 % 11.6-14.4 mghl=560) PLATELET COUNT (BEAKER) (test wlrm=411) 136 K/CU MM 150-450 MEAN PLATELET VOLUME (BEAKER) (test dffx=166) 11.5 fL 9.4-12.4 NUCLEATED RED BLOOD CELLS (BEAKER) (test 0 /100 WBC 0-0 nymg=626) NEUTROPHILS RELATIVE PERCENT (BEAKER) (test 78 % pdun=268) LYMPHOCYTES RELATIVE PERCENT (BEAKER) (test 7 % wgmw=137) MONOCYTES RELATIVE PERCENT (BEAKER) (test 10 % wifm=121) EOSINOPHILS RELATIVE PERCENT (BEAKER) (test 4 % xusy=902) BASOPHILS RELATIVE PERCENT (BEAKER) (test 1 % nhsy=117) NEUTROPHILS ABSOLUTE COUNT (BEAKER) (test 8.76 K/ L 1.78-5.38 xpkt=699) LYMPHOCYTES ABSOLUTE COUNT (BEAKER) (test 0.78 K/ L 1.32-3.57 gkad=559) MONOCYTES ABSOLUTE COUNT (BEAKER) (test 1.13 K/ L 0.30-0.82 kojl=909) EOSINOPHILS ABSOLUTE COUNT (BEAKER) (test 0.41 K/ L 0.04-0.54 iukd=776) BASOPHILS ABSOLUTE COUNT (BEAKER) (test 0.06 K/ L 0.01-0.08 urie=774) IMMATURE GRANULOCYTES-RELATIVE PERCENT (BEAKER) 1 % 0-1 (test lbir=0975) U/S, EXTREMITY (NON-VASCULAR), LEFT, [id number] 02:10:00Reason for exam:- >old LUE AVF site. [...] to suggest abscess or hematoma. Signed: Gisel Vega Verified Date/Time: 10/26/2018 02:10:19 POCT-GLUCOSE [id number] 21:28:00 Test Item Value Reference Range Comments POC-GLUCOSE METER (BEAKER) 224 mg/dL 70-110 TESTED AT [address] (test htda=1809) [facility] [address] POCT-GLUCOSE [id number] 17:44:00 Test Item Value Reference Range Comments POC-GLUCOSE METER (BEAKER) 204 mg/dL 70-110 TESTED AT [address] (test moex=1161) [facility] [address] POCT-GLUCOSE [id number] 13:38:00 Test Item Value Reference Range Comments POC-GLUCOSE METER (BEAKER) 153 mg/dL 70-110 TESTED AT [address] (test wqar=0834) [facility] [address] LACTIC ACID, [id number] 11:56:00 Test Item Value Reference Range Comments LACTATE BLOOD VENOUS (2) 1.4 mmol/L 0.5-2.2 Specimen slightly hemolyzed (BEAKER) (test zfmu=3827) POCT-GLUCOSE [id number] 09:40:00 Test Item Value Reference Range Comments POC-GLUCOSE METER (BEAKER) 114 mg/dL 70-[address] [facility] [address] (test kzqi=6304) [facility] [address] RAD, CHEST, 1 VIEW, NON [id number] 08:01:00Reason for exam:->respiratory failureShould this be performed [...] resolution of left pleural effusion. Signed: Prisca Giraldo Verified Date/Time: 10/25/2018 08:01:10 BASIC METABOLIC [id number] 04:46:00 Test Item Value Reference Range Comments SODIUM (BEAKER) (test 131 meq/L 136-145 ctai=966) POTASSIUM (BEAKER) (test 4.0 meq/L 3.5-5.1 rvza=299) CHLORIDE (BEAKER) (test 97 meq/L 98-107 nbey=246) CO2 (BEAKER) (test 22 meq/L 22-29 hlcz=746) BLOOD UREA NITROGEN 23 mg/dL 7-21 (BEAKER) (test wcgf=738) CREATININE (BEAKER) (test 3.47 mg/dL 0.57-1.25 hyyx=130) GLUCOSE RANDOM (BEAKER) 116 mg/dL 70-105 (test kwui=924) CALCIUM (BEAKER) (test 9.9 mg/dL 8.4-10.2 Discordant CALCIUM zgim=388) result Compared to previous result, Clinical correlation required. EGFR (BEAKER) (test 17 mL/min/1.73 sq m ESTIMATED GFR IS NOT peom=8200) ACCURATE CREATININE CLEARANCE IN PREDICTING GLOMERULAR FILTRATION RATE. ESTIMATED GFR IS NOT APPLICABLE FOR DIALYSIS PATIENTS. Specimen slightly [id number] 04:45:00 Test Item Value Reference Range Comments PHOSPHORUS (BEAKER) (test jyja=799) 2.9 mg/dL 2.3-4.7 [id number] 04:45:00 Test Item Value Reference Range Comments MAGNESIUM (BEAKER) (test qcgi=006) 2.4 mg/dL 1.6-2.6 TROPONIN [id number] 04:45:00 Test Item Value Reference Range Comments TROPONIN I (BEAKER) (test lxio=844) 3.45 ng/mL 0.00-0.03 Troponin I (TnI) levels [...] failure, acidosis, acute neurological disease, and persistent tachyarrhythmia.PT/[id number] 04:22:00 Test Item Value Reference Range Comments PROTIME (BEAKER) (test fpdk=442) 17.2 seconds 11.9-14.2 INR (BEAKER) (test dmtu=290) 1.5 <=5.9 PARTIAL THROMBOPLASTIN TIME (BEAKER) (test 43.5 seconds 22.5-36.0 geks=714) Effective 07/29/2018: PT Reference Range ChangeNew: 11.9-14.2 Previous: 11.7- 14.7RECOMMENDED COUMADIN/WARFARIN INR THERAPY RANGESSTANDARD DOSE: 2.0-3.0 Includes: PROPHYLAXIS for venous thrombosis, systemic embolization; TREATMENT for venous thrombosis and/or pulmonary embolus.HIGH RISK: Target INR is2.5-3.5 for patients wiht mechanical heart valves.PROTHROMBIN [id number] 04:21: 00 Test Item Value Reference Range Comments PROTIME (BEAKER) (test lobi=861) 17.2 seconds 11.9-14.2 INR (BEAKER) (test ugam=286) 1.5 <=5.9 Effective 07/29/2018: PT Reference Range ChangeNew: 11.9-14.2 Previous: 11.7- 14.7RECOMMENDED COUMADIN/WARFARIN INR THERAPY RANGESSTANDARD DOSE: 2.0-3.0 Includes: PROPHYLAXIS for venous thrombosis, systemic embolization; TREATMENT for venous thrombosis and/or pulmonary embolus.HIGH RISK: Target INR is2.5-3.5 for patients wiht mechanical heart valves.CBC W/PLT COUNT & AUTO [id number] 04:00:00 Test Item Value Reference Range Comments WHITE BLOOD CELL COUNT (BEAKER) (test qncf=248) 18.8 K/ L 3.5-10.5 RED BLOOD CELL COUNT (BEAKER) (test zpsb=112) 3.19 M/ L 4.63-6.08 HEMOGLOBIN (BEAKER) (test anpl=384) 10.5 GM/DL 13.7-17.5 HEMATOCRIT (BEAKER) (test nmfh=389) 32.7 % 40.1-51.0 MEAN CORPUSCULAR VOLUME (BEAKER) (test tewh=455) 102.5 fL 79.0-92.2 MEAN CORPUSCULAR HEMOGLOBIN (BEAKER) (test 32.9 pg 25.7-32.2 tqsg=358) MEAN CORPUSCULAR HEMOGLOBIN CONC (BEAKER) (test 32.1 GM/DL 32.3-36.5 ewhj=830) RED CELL DISTRIBUTION WIDTH (BEAKER) (test 15.3 % 11.6-14.4 dqna=765) PLATELET COUNT (BEAKER) (test heth=519) 128 K/CU MM 150-450 MEAN PLATELET VOLUME (BEAKER) (test nwpf=896) 10.8 fL 9.4-12.4 NUCLEATED RED BLOOD CELLS (BEAKER) (test 0 /100 WBC 0-0 lgvb=556) NEUTROPHILS RELATIVE PERCENT (BEAKER) (test 88 % bnif=447) LYMPHOCYTES RELATIVE PERCENT (BEAKER) (test 3 % bwzc=327) MONOCYTES RELATIVE PERCENT (BEAKER) (test 6 % wbth=982) EOSINOPHILS RELATIVE PERCENT (BEAKER) (test 1 % ceap=537) BASOPHILS RELATIVE PERCENT (BEAKER) (test 0 % kvng=225) NEUTROPHILS ABSOLUTE COUNT (BEAKER) (test 16.58 K/ L 1.78-5.38 ikik=766) LYMPHOCYTES ABSOLUTE COUNT (BEAKER) (test 0.59 K/ L 1.32-3.57 mkgs=078) MONOCYTES ABSOLUTE COUNT (BEAKER) (test 1.18 K/ L 0.30-0.82 thnz=036) EOSINOPHILS ABSOLUTE COUNT (BEAKER) (test 0.13 K/ L 0.04-0.54 alpq=136) BASOPHILS ABSOLUTE COUNT (BEAKER) (test 0.07 K/ L 0.01-0.08 tqzq=203) IMMATURE GRANULOCYTES-RELATIVE PERCENT (BEAKER) 1 % 0-1 (test ronp=4135) TROPONIN [id number] 00:28:00 Test Item Value Reference Range Comments TROPONIN I (BEAKER) (test dyor=185) 2.92 ng/mL 0.00-0.03 Troponin I (TnI) levels [...] acidosis, acute neurological disease, and persistent tachyarrhythmia.POCT-GLUCOSE [id number] 22:16:00 Test Item Value Reference Range Comments POC-GLUCOSE METER (BEAKER) 135 mg/dL 70-110 TESTED AT [address] (test yqpp=0511) [facility] [address] RAD, CHEST, 1 VIEW, NON [id number] 18:31:00Reason for exam:->sobShould this be performed at the bedside?->NoFINAL REPORT Chest dated 10/24/2018 COMPARISON: 10/23/2018 Clinical Information: sob Comment: Heart is enlarged. Pulmonary vasculature is indistinct. Interstitial disease is seen bilaterally suggestive of the lesser congestion or pulmonary edema worse as compared to the prior study. No pleural effusion or pneumothorax is seen. Impression: Interval worsening of pulmonary edema. Signed: Bridget Del Rosarioeport Verified Date/Time: 10/24/2018 18:31:29 Reading Location: [facility] [id number] Ortho Consult Reading Room Electronically signed by: BRIDGET DEL ROSARIO M.D. on 2018 06:31 PMTROPONIN [id number] 17:33:00 Test Item Value Reference Range Comments TROPONIN I (MARTIR) (test qqzt=121) 3.57 ng/mL 0.00-0.03 Troponin I (TnI) levels [...] acidosis, acute neurological disease, and persistent tachyarrhythmia.POCT-GLUCOSE [id number] 16:59:00 Test Item Value Reference Range Comments POC-GLUCOSE METER (MARTIR) 131 mg/dL 70-[address] [facility] [address] [facility] (test wtnd=2977) [facility] [address] BLOOD CULTURE IDENTIFICATION [id number] 15:25:00 Test Item Value Reference Range Comments LISTERIA MONOCYTOGENES Not detected Not detected (test vcfr=3199893) STAPHYLOCOCCUS (test Detected Not detected fywj=4034729) STAPHYLOCOCCUS AUREUS Detected Not detected Methicillin-susceptible S. (test xzsz=9364434) aureus (MSSA)First-line therapy: Cefazolin or Oxacillin (Oxacillin preferred if VICE PRESIDENT EDUCATION involvement) ID CONSULTATION REQUIREDStaphylococcus aureus DETECTEDMecA NOT DETECTED Reference Range: Not Detected STREPTOCOCCUS (test Not detected Not detected oqxj=6536690) STREPTOCOCCUS AGALACTIAE Not detected Not detected (GROUP B) (test kxoz=2205869) STREPTOCOCCUS PNEUMONIAE Not detected Not detected (test rqws=0882129) STREPTOCOCCUS PYOGENES Not detected Not detected (GROUP A) (test eoiw=1333859) ACINETOBACTER BAUMANNII Not detected Not detected (test bslz=9806699) HAEMOPHILUS INFLUENZAE Not detected Not detected (test fnlx=1820272) NEISSERIA MENINGITIDIS Not detected Not detected (test odib=3729122) ENTEROBACTERIACEAE (test Not detected Not detected whbb=8186368) ENTEROBACTER CLOACOE Not detected Not detected COMPLEX (test qayi=4488620) KLEBSIELLA OXYTOCA (test Not detected Not detected juaa=4022383) KLEBSIELLA PNEUMONIAE Not detected Not detected (test eefr=5343) PROTEUS (test Not detected Not detected kydi=4126986) SERRATIA MARCESCENS (test Not detected Not detected jgcn=7577630) MITA ALBICANS (test Not detected Not detected aajs=0736370) MITA GLABRATA (test Not detected Not detected asuy=9205987) MITA KRUSEI (test Not detected Not detected bpxi=8779818) MITA PARAPSILOSIS (test Not detected Not detected ecqk=2887592) MITA TROPICALIS (test Not detected Not detected dqrc=7885235) ESCHERICHIA COLI (test Not detected Not detected vfhi=0131386) METHICILLIN-RESISTANCE Not detected Not detected GENE (test pmsi=9177345) VANCOMYCIN-RESISTANCE GENE (test wocg=4947070) CARBAPENEM-RESISTANCE GENE (test pygu=5147908) ENTEROCOCCUS-BEAKER (test Not detected Not detected bydt=4652911) PSEUDOMONAS Not detected Not detected AERUGINOSA-BEAKER (test puuf=2529646) Other bacteria and resistance markers not targeted by this PCR panel cannot be excluded; therefore clinical correlation and follow up of serology, culture results, and other molecular studies is required. The results are not intended to be used as the sole means for clinical diagnosis or patient management decisions. This sample was tested at the [facility] using the VISUAL NAC[employer] Blood Culture ID Panel. It is FDA cleared and has been verified and approved by the [facility] for clinical use. This laboratory is CLIA-certified and College ofAmerican Pathologists (CAP)-accredited to perform high complexity testing.POCT-GLUCOSE [id number] 11:41:00 Test Item Value Reference Range Comments POC-GLUCOSE METER (BEAKER) 96 mg/dL 70-[address] [facility] [address] (test fhiz=0633) [facility] [address] TROPONIN [id number] 08:33:00 Test Item Value Reference Range Comments TROPONIN I (BEAKER) (test svqr=274) 1.86 ng/mL 0.00-0.03 Troponin I (TnI) levels [...] and persistent tachyarrhythmia.RAD, CHEST, 1 VIEW, NON [id number] 08:10:00Reason for exam:->respiratory failureShould this be performed [...] 10/24/2018 08:10:08 CBC W/PLT COUNT & AUTO [id number] 07:56:00 Test Item Value Reference Range Comments WHITE BLOOD CELL COUNT (BEAKER) (test wcxb=160) 32.3 K/ L 3.5-10.5 RED BLOOD CELL COUNT (BEAKER) (test algv=900) 3.27 M/ L 4.63-6.08 HEMOGLOBIN (BEAKER) (test gsti=516) 10.6 GM/DL 13.7-17.5 HEMATOCRIT (BEAKER) (test kyup=714) 33.7 % 40.1-51.0 MEAN CORPUSCULAR VOLUME (BEAKER) (test tgsq=231) 103.1 fL 79.0-92.2 MEAN CORPUSCULAR HEMOGLOBIN (BEAKER) (test 32.4 pg 25.7-32.2 qjbk=563) MEAN CORPUSCULAR HEMOGLOBIN CONC (BEAKER) (test 31.5 GM/DL 32.3-36.5 flyx=118) RED CELL DISTRIBUTION WIDTH (BEAKER) (test 15.4 % 11.6-14.4 nfcx=814) PLATELET COUNT (BEAKER) (test ajpa=237) 162 K/CU MM 150-450 MEAN PLATELET VOLUME (BEAKER) (test zwiy=029) 11.2 fL 9.4-12.4 NUCLEATED RED BLOOD CELLS (BEAKER) (test 0 /100 WBC 0-0 yfrt=410) (CELLAVISION MANUAL DIFF)2018-10-24 07:56:00 Test Item Value Reference Range Comments NEUTROPHILS - REL (CELLAVISION)(BEAKER) (test 81 % ytuk=9604) MONOCYTES - REL (CELLAVISION)(BEAKER) (test 5 % ecky=3306) BASOPHILS - REL (CELLAVISION)(BEAKER) (test 1 % ckcl=3786) METAMYELOCYTES - REL (CELLAVISION)(BEAKER) (test 1 % 0-0 hozp=5539) BANDS - REL (CELLAVISION)(BEAKER) (test 12 % 0-10 oltt=5547) NEUTROPHILS - ABS (CELLAVISION)(BEAKER) (test 26.16 K/ul 1.78-5.38 eiej=9986) MONOCYTES - ABS (CELLAVISION)(BEAKER) (test 1.62 K/uL 0.30-0.82 ggqa=2297) BASOPHILS - ABS (CELLAVISION)(BEAKER) (test 0.32 K/uL 0.01-0.08 cozh=0525) METAMYELOCYTES - ABS (CELLAVISION)(BEAKER) (test 0.32 K/uL 0.00-0.00 bftg=9477) BANDS - ABS (CELLAVISION)(BEAKER) (test 3.88 K/uL 0.00-0.80 lwsf=9972) TOTAL COUNTED (BEAKER) (test slns=3911) 100 WBC MORPHOLOGY (BEAKER) (test zgru=131) Normal GIANT PLATELETS (BEAKER) (test mslr=357) Present LARGE PLT(BEAKER) (test fkvj=7903) Present POLYCHROMATOPHILLIC RBCS(BEAKER) (test kuwv=761) 1+ few ANISOCYTOSIS (BEAKER) (test zpls=735) 1+ few MACROCYTES (BEAKER) (test pmkv=632) 1+ few POIKILOCYTES (BEAKER) (test htit=988) 1+ few OVALOCYTES (BEAKER) (test tyhw=589) 1+ few TEAR DROP CELLS (BEAKER) (test uqhk=927) 1+ few ARTIFACT (CELLAVISION)(BEAKER) (test zsux=9810) Present PLATELET CONCENTRATION (CELLAVISION)(BEAKER) Adequate (test kvqw=6054) Received comment: User comments: Slide comments:LACTIC ACID, [id number] 03:32:00 Test Item Value Reference Range Comments LACTATE BLOOD ARTERIAL (2) 1.2 mmol/L 0.5-2.2 Specimen moderately hemolyzed (BEAKER) (test ajbc=1640) Specimen slightly ictericBLOOD GAS, [id number] 03:03:00 Test Item Value Reference Range Comments PH ARTERIAL (BEAKER) (test fgah=923) 7.46 7.35-7.45 PCO2 ARTERIAL (BEAKER) (test piap=917) 33 mmHg 35-45 PO2 ARTERIAL (BEAKER) (test mpne=528) 167 mmHg 80-90 O2 SATURATION ARTERIAL (BEAKER) (test gqlj=183) 99.2 % 96.0-97.0 HCO3 ARTERIAL (BEAKER) (test texs=943) 23 mmol/L 21-29 BASE EXCESS ARTERIAL (BEAKER) (test rmjh=777) -0.8 mmol/L -2.0-3.0 PATIENT TEMPERATURE (BEAKER) (test kuqp=0566) 36.6 C FIO2 (BEAKER) (test htxw=8669) 95.0 % [id number] 02:56:00 Test Item Value Reference Range Comments PROCALCITONIN (BEAKER) (test gppb=9231) 3.47 ng/mL <0.05 SEPSIS RISK (ng/mL)Low: 0.05-0.50Intermediate: 0.51-2.00High: & gt;=2.01CBC W/PLT COUNT & AUTO [id number] 01:28:00 Test Item Value Reference Range Comments WHITE BLOOD CELL COUNT (BEAKER) (test xzsa=236) 23.1 K/ L 3.5-10.5 RED BLOOD CELL COUNT (BEAKER) (test jwci=304) 2.96 M/ L 4.63-6.08 HEMOGLOBIN (BEAKER) (test kzlv=771) 9.9 GM/DL 13.7-17.5 HEMATOCRIT (BEAKER) (test pnsx=481) 31.0 % 40.1-51.0 MEAN CORPUSCULAR VOLUME (BEAKER) (test nkky=940) 104.7 fL 79.0-92.2 MEAN CORPUSCULAR HEMOGLOBIN (BEAKER) (test 33.4 pg 25.7-32.2 qhee=232) MEAN CORPUSCULAR HEMOGLOBIN CONC (BEAKER) (test 31.9 GM/DL 32.3-36.5 vvxo=098) RED CELL DISTRIBUTION WIDTH (BEAKER) (test 15.5 % 11.6-14.4 yaxs=410) PLATELET COUNT (BEAKER) (test dcri=529) 149 K/CU MM 150-450 MEAN PLATELET VOLUME (BEAKER) (test kddk=300) 10.4 fL 9.4-12.4 NUCLEATED RED BLOOD CELLS (BEAKER) (test 0 /100 WBC 0-0 xiga=592) (CELLAVISION MANUAL DIFF)2018-10-24 01:28:00 Test Item Value Reference Range Comments NEUTROPHILS - REL (CELLAVISION)(BEAKER) (test 92 % vwzy=0383) MONOCYTES - REL (CELLAVISION)(BEAKER) (test 4 % jmqn=4763) BANDS - REL (CELLAVISION)(BEAKER) (test 4 % 0-10 ftne=2567) NEUTROPHILS - ABS (CELLAVISION)(BEAKER) (test 21.25 K/ul 1.78-5.38 ilkj=1561) MONOCYTES - ABS (CELLAVISION)(BEAKER) (test 0.92 K/uL 0.30-0.82 byvk=8331) BANDS - ABS (CELLAVISION)(BEAKER) (test 0.92 K/uL 0.00-0.80 btsm=4542) TOTAL COUNTED (BEAKER) (test qqsf=1926) 100 WBC MORPHOLOGY (BEAKER) (test wihg=582) Normal GIANT PLATELETS (BEAKER) (test qlib=953) Present ANISOCYTOSIS (BEAKER) (test fwzh=706) 1+ few MICROCYTES (BEAKER) (test zsgl=854) 1+ few PLATELET CONCENTRATION (CELLAVISION)(BEAKER) Adequate (test qycc=7613) Received comment: User comments: Slide comments:POCT-LACTIC ACID, [id number] 01:01:00 Test Item Value Reference Range Comments POC-LACTIC ACID, VENOUS 1.7 mmol/L 0.9-1.[address] [facility] [address] [facility] (BEAKER[facility] (test ozfi=8091) [facility] [address] B-TYPE NATRIURETIC FACTOR (BNP)2018-10-24 00:39:00 Test Item Value Reference Range Comments B-TYPE NATRIURETIC PEPTIDE (BEAKER) (test 8224 pg/mL 0-100 bbyv=074) TROPONIN [id number] 00:27:00 Test Item Value Reference Range Comments TROPONIN I (BEAKER) (test cmvz=874) 0.75 ng/mL 0.00-0.03 Troponin I (TnI) levels [...] acute neurological disease, and persistent tachyarrhythmia.BASIC METABOLIC [id number] 00:20:00 Test Item Value Reference Range Comments SODIUM (BEAKER) (test 137 meq/L 136-145 mlue=011) POTASSIUM (BEAKER) (test 3.3 meq/L 3.5-5.1 ogms=150) CHLORIDE (BEAKER) (test 106 meq/L 98-107 zzre=495) CO2 (BEAKER) (test 23 meq/L 22-29 wxfw=712) BLOOD UREA NITROGEN 12 mg/dL 7-21 (BEAKER) (test hreq=824) CREATININE (BEAKER) (test 2.47 mg/dL 0.57-1.25 mveo=816) GLUCOSE RANDOM (BEAKER) 108 mg/dL 70-105 (test piaf=367) CALCIUM (BEAKER) (test 8.3 mg/dL 8.4-10.2 bzgc=924) EGFR (BEAKER) (test 26 mL/min/1.73 sq m ESTIMATED GFR IS NOT xkad=6261) ACCURATE CREATININE CLEARANCE IN PREDICTING GLOMERULAR FILTRATION RATE. ESTIMATED GFR IS NOT APPLICABLE FOR DIALYSIS PATIENTS. Specimen slightly [id number] 00:16:00 Test Item Value Reference Range Comments MAGNESIUM (BEAKER) (test efbf=428) 1.7 mg/dL 1.6-2.6 HEPATIC FUNCTION [id number] 00:16:00 Test Item Value Reference Range Comments TOTAL PROTEIN (BEAKER) (test unym=836) 6.2 gm/dL 6.0-8.3 ALBUMIN (BEAKER) (test ujyb=9063) 3.3 g/dL 3.5-5.0 BILIRUBIN TOTAL (BEAKER) (test wcfw=606) 2.7 mg/dL 0.2-1.2 BILIRUBIN DIRECT (BEAKER) (test onme=725) 1.2 mg/dL 0.1-0.5 ALKALINE PHOSPHATASE (BEAKER) (test erec=006) 77 U/L 40-150 AST (SGOT) (BEAKER) (test ydij=467) 20 U/L 5-34 ALT (SGPT) (BEAKER) (test xiph=345) 16 U/L 6-55 Specimen slightly [id number] 00:16:00 Test Item Value Reference Range Comments LIPASE (BEAKER) (test fpew=709) 12 U/L 8-78 Specimen slightly ictericPT/[id number] 00:14:00 Test Item Value Reference Range Comments PROTIME (BEAKER) (test khex=725) 16.8 seconds 11.9-14.2 INR (BEAKER) (test abvo=616) 1.4 <=5.9 PARTIAL THROMBOPLASTIN TIME (BEAKER) (test 31.6 seconds 22.5-36.0 dlhl=152) Effective 07/29/2018: PT Reference Range ChangeNew: 11.9-14.2 Previous: 11.7- 14.7RECOMMENDED COUMADIN/WARFARIN INR THERAPY RANGESSTANDARD DOSE: 2.0-3.0 Includes: PROPHYLAXIS for venous thrombosis, systemic embolization; TREATMENT for venous thrombosis and/or pulmonary embolus.HIGH RISK: Target INR is2.5-3.5 for patients wiht mechanical heart valves.BLOOD [id number] 20:00:00 Test Item Value Reference Range Comments CULTURE (BEAKER) (test elzi=2172) No growth in 5 days BLOOD [id number] 20:00:00 Test Item Value Reference Range Comments CULTURE (BEAKER) (test fusu=0607) No growth in 5 days T3, [id number] 14:07:00 Test Item Value Reference Range Comments T3 FREE (BEAKER) (test tmeb=343) 3.50 pg/mL 1.71-3.71 POCT-GLUCOSE [id number] 12:45:00 Test Item Value Reference Range Comments POC-GLUCOSE METER (BEAKER) 98 mg/dL 70-110 TESTED AT [address] (test hcaq=7017) [facility] [address] RAD, CHEST, 1 VIEW, NON [id number] 11:35:00Reason for exam:->CHFFINAL REPORT RAD, CHEST, 1 VIEW, NON DEPT INDICATION: CHF COMPARISON: Prior day's exam FINDINGS: Portable frontal view of the chest. IMPRESSION: Support Lines: Stable. Lungs and pleura: Bilateral lower lobe subsegmental atelectasis. Trace left effusion. No pneumothorax.Heart and mediastinum: Stable contours. Stable surgical changes.Additional findings: None. Signed: Nikia Banda Verified Date/Time: 10/23/2018 11:35: 02 Reading Location: [facility] Radiology Reading Room POCT-GLUCOSE [id number] 07:42:00 Test Item Value Reference Range Comments POC-GLUCOSE METER (BEAKER) 116 mg/dL 70-110 TESTED AT [address] (test jqlt=3325) [place] [address] CBC W/PLT COUNT & AUTO [id number] 06:50:00 Test Item Value Reference Range Comments WHITE BLOOD CELL COUNT (BEAKER) (test dkli=206) 10.6 K/ L 3.5-10.5 RED BLOOD CELL COUNT (BEAKER) (test jzha=577) 3.28 M/ L 4.63-6.08 HEMOGLOBIN (BEAKER) (test yoho=310) 10.6 GM/DL 13.7-17.5 HEMATOCRIT (BEAKER) (test tmyj=488) 33.4 % 40.1-51.0 MEAN CORPUSCULAR VOLUME (BEAKER) (test nizd=556) 101.8 fL 79.0-92.2 MEAN CORPUSCULAR HEMOGLOBIN (BEAKER) (test 32.3 pg 25.7-32.2 wbsn=427) MEAN CORPUSCULAR HEMOGLOBIN CONC (BEAKER) (test 31.7 GM/DL 32.3-36.5 cogr=636) RED CELL DISTRIBUTION WIDTH (BEAKER) (test 15.5 % 11.6-14.4 lkdr=323) PLATELET COUNT (BEAKER) (test qfua=466) 207 K/CU MM 150-450 MEAN PLATELET VOLUME (BEAKER) (test nnve=856) 11.0 fL 9.4-12.4 NUCLEATED RED BLOOD CELLS (BEAKER) (test 0 /100 WBC 0-0 rurt=093) NEUTROPHILS RELATIVE PERCENT (BEAKER) (test 79 % qvhu=442) LYMPHOCYTES RELATIVE PERCENT (BEAKER) (test 6 % ktif=625) MONOCYTES RELATIVE PERCENT (BEAKER) (test 10 % argt=883) EOSINOPHILS RELATIVE PERCENT (BEAKER) (test 4 % zwid=546) BASOPHILS RELATIVE PERCENT (BEAKER) (test 1 % xymo=428) NEUTROPHILS ABSOLUTE COUNT (BEAKER) (test 8.33 K/ L 1.78-5.38 aaro=350) LYMPHOCYTES ABSOLUTE COUNT (BEAKER) (test 0.67 K/ L 1.32-3.57 rzyp=847) MONOCYTES ABSOLUTE COUNT (BEAKER) (test 1.10 K/ L 0.30-0.82 gvhi=576) EOSINOPHILS ABSOLUTE COUNT (BEAKER) (test 0.39 K/ L 0.04-0.54 lqpk=286) BASOPHILS ABSOLUTE COUNT (BEAKER) (test 0.06 K/ L 0.01-0.08 krmk=068) IMMATURE GRANULOCYTES-RELATIVE PERCENT (BEAKER) 1 % 0-1 (test jeyb=4458) POCT-GLUCOSE [id number] 21:47:00 Test Item Value Reference Range Comments POC-GLUCOSE METER (BEAKER) 200 mg/dL 70-110 TESTED AT [address] (test zcof=3538) [facility] [address] [id number] 21:38:00 Test Item Value Reference Range Comments POTASSIUM (BEAKER) (test bhnd=494) 3.6 meq/L 3.5-5.1 [id number] 21:38:00 Test Item Value Reference Range Comments MAGNESIUM (BEAKER) (test lctw=408) 2.3 mg/dL 1.6-2.6 [id number] 21:38:00 Test Item Value Reference Range Comments PHOSPHORUS (BEAKER) (test been=562) 2.0 mg/dL 2.3-4.7 [id number] 21:38:00 Test Item Value Reference Range Comments SODIUM (BEAKER) (test ntab=729) 137 meq/L 136-145 CALCIUM, [id number] 21:11:00 Test Item Value Reference Range Comments CALCIUM IONIZED (BEAKER) (test gwwu=430) 1.20 mmol/L 1.12-1.27 PH, BLOOD (BEAKER) (test gryv=6800) 7.45 POCT-GLUCOSE [id number] 17:07:00 Test Item Value Reference Range Comments POC-GLUCOSE METER (BEAKER) 100 mg/dL 70-110 TESTED AT [address] (test wvvp=2541) [facility] [address] HEPATITIS B SURFACE [id number] 15:15:00 Test Item Value Reference Range Comments HEPATITIS B SURFACE ANTIGEN (2) (BEAKER) (test Nonreactive Nonreactive easa=9933) [id number] 14:50:00 Test Item Value Reference Range Comments POTASSIUM (BEAKER) (test ieac=347) 3.8 meq/L 3.5-5.1 [id number] 12:43:00 Test Item Value Reference Range Comments POTASSIUM (BEAKER) (test gjmq=204) 3.8 meq/L 3.5-5.1 POCT-GLUCOSE [id number] 12:17:00 Test Item Value Reference Range Comments POC-GLUCOSE METER (BEAKER) 154 mg/dL 70-110 TESTED AT [address] (test hkfp=1583) [facility] [address] [id number] 08:29:00 Test Item Value Reference Range Comments PHOSPHORUS (BEAKER) (test lazo=335) 3.6 mg/dL 2.3-4.7 [id number] 08:29:00 Test Item Value Reference Range Comments MAGNESIUM (BEAKER) (test dvai=305) 2.4 mg/dL 1.6-2.6 CALCIUM, [id number] 08:16:00 Test Item Value Reference Range Comments CALCIUM IONIZED (BEAKER) (test bkdh=758) 1.23 mmol/L 1.12-1.27 PH, BLOOD (BEAKER) (test jkfm=2873) 7.40 POCT-GLUCOSE [id number] 07:48:00 Test Item Value Reference Range Comments POC-GLUCOSE METER (BEAKER) 105 mg/dL 70-[address] [facility] [address] (test vopm=0915) [facility] [address] TSH/FREE T4 IF [id number] 06:59:00 Test Item Value Reference Range Comments THYROID STIMULATING HORMONE (BEAKER) (test 5.42 uIU/mL 0.35-4.94 pbqx=297) T4, [id number] 06:14:00 Test Item Value Reference Range Comments FREE T4 (BEAKER) (test ahlv=339) 1.34 ng/dL 0.70-1.48 BASIC METABOLIC [id number] 05:54:00 Test Item Value Reference Range Comments SODIUM (BEAKER) (test 135 meq/L 136-145 pvkm=876) POTASSIUM (BEAKER) (test 3.8 meq/L 3.5-5.1 lmmh=605) CHLORIDE (BEAKER) (test 100 meq/L 98-107 bldm=531) CO2 (BEAKER) (test 26 meq/L 22-29 zdkd=995) BLOOD UREA NITROGEN 24 mg/dL 7-21 (BEAKER) (test tfda=503) CREATININE (BEAKER) (test 3.08 mg/dL 0.57-1.25 esfy=338) GLUCOSE RANDOM (BEAKER) 107 mg/dL 70-105 (test bqcg=407) CALCIUM (BEAKER) (test 9.5 mg/dL 8.4-10.2 jlgu=819) EGFR (BEAKER) (test 20 mL/min/1.73 sq m ESTIMATED GFR IS NOT dzvb=7356) ACCURATE CREATININE CLEARANCE IN PREDICTING GLOMERULAR FILTRATION RATE. ESTIMATED GFR IS NOT APPLICABLE FOR DIALYSIS PATIENTS. [id number] 05:36:00 Test Item Value Reference Range Comments PHOSPHORUS (BEAKER) (test kljl=239) 3.9 mg/dL 2.3-4.7 [id number] 05:36:00 Test Item Value Reference Range Comments MAGNESIUM (BEAKER) (test tfxg=267) 2.3 mg/dL 1.6-2.6 CBC W/PLT COUNT & AUTO [id number] 04:13:00 Test Item Value Reference Range Comments WHITE BLOOD CELL COUNT (BEAKER) (test frwn=663) 7.6 K/ L 3.5-10.5 RED BLOOD CELL COUNT (BEAKER) (test aaxk=799) 2.66 M/ L 4.63-6.08 HEMOGLOBIN (BEAKER) (test bcmc=823) 8.7 GM/DL 13.7-17.5 HEMATOCRIT (BEAKER) (test zjaj=660) 27.2 % 40.1-51.0 MEAN CORPUSCULAR VOLUME (BEAKER) (test ycnm=637) 102.3 fL 79.0-92.2 MEAN CORPUSCULAR HEMOGLOBIN (BEAKER) (test 32.7 pg 25.7-32.2 hczv=734) MEAN CORPUSCULAR HEMOGLOBIN CONC (BEAKER) (test 32.0 GM/DL 32.3-36.5 qvio=032) RED CELL DISTRIBUTION WIDTH (BEAKER) (test 15.2 % 11.6-14.4 jgqy=852) PLATELET COUNT (BEAKER) (test kylt=826) 175 K/CU MM 150-450 MEAN PLATELET VOLUME (BEAKER) (test lgxd=441) 10.5 fL 9.4-12.4 NUCLEATED RED BLOOD CELLS (BEAKER) (test 0 /100 WBC 0-0 rhuf=420) NEUTROPHILS RELATIVE PERCENT (BEAKER) (test 75 % lowp=120) LYMPHOCYTES RELATIVE PERCENT (BEAKER) (test 8 % dgjh=644) MONOCYTES RELATIVE PERCENT (BEAKER) (test 14 % rrml=734) EOSINOPHILS RELATIVE PERCENT (BEAKER) (test 3 % vaju=376) BASOPHILS RELATIVE PERCENT (BEAKER) (test 1 % sufa=426) NEUTROPHILS ABSOLUTE COUNT (BEAKER) (test 5.69 K/ L 1.78-5.38 gwae=450) LYMPHOCYTES ABSOLUTE COUNT (BEAKER) (test 0.60 K/ L 1.32-3.57 nxqf=134) MONOCYTES ABSOLUTE COUNT (BEAKER) (test 1.06 K/ L 0.30-0.82 hxie=473) EOSINOPHILS ABSOLUTE COUNT (BEAKER) (test 0.21 K/ L 0.04-0.54 nvyc=913) BASOPHILS ABSOLUTE COUNT (BEAKER) (test 0.04 K/ L 0.01-0.08 huhj=892) IMMATURE GRANULOCYTES-RELATIVE PERCENT (BEAKER) 0 % 0-1 (test zdkd=0179) [id number] 00:21:00 Test Item Value Reference Range Comments POTASSIUM (BEAKER) (test 3.9 meq/L 3.5-5.1 Specimen slightly hemolyzed dkpn=709) POCT-GLUCOSE [id number] 22:00:00 Test Item Value Reference Range Comments POC-GLUCOSE METER (BEAKER) 163 mg/dL 70-110 TESTED AT [address] (test ytgj=7275) [place] [address] [id number] 21:02:00 Test Item Value Reference Range Comments MAGNESIUM (BEAKER) (test 2.3 mg/dL 1.6-2.6 Specimen slightly hemolyzed atiw=825) [id number] 21:02:00 Test Item Value Reference Range Comments PHOSPHORUS (BEAKER) (test 3.1 mg/dL 2.3-4.7 Specimen slightly hemolyzed yzib=004) [id number] 21:02:00 Test Item Value Reference Range Comments POTASSIUM (BEAKER) (test 3.9 meq/L 3.5-5.1 Specimen slightly hemolyzed gclc=278) [id number] 21:02:00 Test Item Value Reference Range Comments SODIUM (BEAKER) (test divx=839) 134 meq/L 136-145 CALCIUM, [id number] 20:24:00 Test Item Value Reference Range Comments CALCIUM IONIZED (BEAKER) (test yymb=461) 1.17 mmol/L 1.12-1.27 PH, BLOOD (BEAKER) (test wgsp=9722) 7.40 POCT-GLUCOSE [id number] 18:16:00 Test Item Value Reference Range Comments POC-GLUCOSE METER (BEAKER) 122 mg/dL 70-110 TESTED AT [address] (test ejaw=2605) [place] [id number] 17:57:00 Test Item Value Reference Range Comments POTASSIUM (BEAKER) (test 3.9 meq/L 3.5-5.1 Specimen moderately hemolyzed qado=169) POCT-GLUCOSE [id number] 12:30:00 Test Item Value Reference Range Comments POC-GLUCOSE METER (BEAKER) 104 mg/dL 70-110 TESTED AT [address] (test twqj=2976) [place] [address] [id number] 11:58:00 Test Item Value Reference Range Comments POTASSIUM (BEAKER) (test okhs=855) 3.3 meq/L 3.5-5.1 POCT-GLUCOSE [id number] 07:50:00 Test Item Value Reference Range Comments POC-GLUCOSE METER (BEAKER) 87 mg/dL 70-[address] [facility] [address] [facility] (test lnwf=0057) [place] [address] RAD, CHEST, 1 VIEW, NON [id number] 07:31:00Reason for exam:->F/U PNAShould this be performed [...] Verified Date/Time: 10/21/2018 07:31: 50 Reading Location: [address] Neuro Reading Room [id number] 04:53:00 Test Item Value Reference Range Comments PHOSPHORUS (BEAKER) (test krsx=355) 2.3 mg/dL 2.3-4.7 [id number] 04:53:00 Test Item Value Reference Range Comments MAGNESIUM (BEAKER) (test iags=675) 2.1 mg/dL 1.6-2.6 BASIC METABOLIC [id number] 04:53:00 Test Item Value Reference Range Comments SODIUM (BEAKER) (test 135 meq/L 136-145 cxqp=446) POTASSIUM (BEAKER) (test 3.7 meq/L 3.5-5.1 qxxu=064) CHLORIDE (BEAKER) (test 103 meq/L 98-107 usbz=873) CO2 (BEAKER) (test 27 meq/L 22-29 alcq=259) BLOOD UREA NITROGEN 17 mg/dL 7-21 (BEAKER) (test cose=815) CREATININE (BEAKER) (test 1.77 mg/dL 0.57-1.25 shuo=613) GLUCOSE RANDOM (BEAKER) 75 mg/dL 70-105 (test ixpg=285) CALCIUM (BEAKER) (test 9.5 mg/dL 8.4-10.2 epah=221) EGFR (BEAKER) (test 38 mL/min/1.73 sq m ESTIMATED GFR IS NOT tolc=4917) ACCURATE CREATININE CLEARANCE IN PREDICTING GLOMERULAR FILTRATION RATE. ESTIMATED GFR IS NOT APPLICABLE FOR DIALYSIS PATIENTS. HEPATIC FUNCTION [id number] 04:53:00 Test Item Value Reference Range Comments TOTAL PROTEIN (BEAKER) (test juka=323) 6.3 gm/dL 6.0-8.3 ALBUMIN (BEAKER) (test fplo=7215) 3.3 g/dL 3.5-5.0 BILIRUBIN TOTAL (BEAKER) (test foqy=122) 0.9 mg/dL 0.2-1.2 BILIRUBIN DIRECT (BEAKER) (test tsln=138) 0.5 mg/dL 0.1-0.5 ALKALINE PHOSPHATASE (BEAKER) (test jeef=734) 85 U/L 40-150 AST (SGOT) (BEAKER) (test wnnh=130) 46 U/L 5-34 ALT (SGPT) (BEAKER) (test weye=188) 39 U/L 6-55 CALCIUM, [id number] 04:29:00 Test Item Value Reference Range Comments CALCIUM IONIZED (BEAKER) (test melk=666) 1.20 mmol/L 1.12-1.27 PH, BLOOD (BEAKER) (test cqtj=3398) 7.41 CBC (HEMOGRAM ONLY)2018-10-21 04:28:00 Test Item Value Reference Range Comments WHITE BLOOD CELL COUNT (BEAKER) (test utce=041) 7.7 K/ L 3.5-10.5 RED BLOOD CELL COUNT (BEAKER) (test vcaw=939) 3.11 M/ L 4.63-6.08 HEMOGLOBIN (BEAKER) (test ccvo=212) 10.0 GM/DL 13.7-17.5 HEMATOCRIT (BEAKER) (test mqsg=854) 31.8 % 40.1-51.0 MEAN CORPUSCULAR VOLUME (BEAKER) (test xbzh=114) 102.3 fL 79.0-92.2 MEAN CORPUSCULAR HEMOGLOBIN (BEAKER) (test 32.2 pg 25.7-32.2 dwhn=434) MEAN CORPUSCULAR HEMOGLOBIN CONC (BEAKER) (test 31.4 GM/DL 32.3-36.5 ovzm=212) RED CELL DISTRIBUTION WIDTH (BEAKER) (test 14.9 % 11.6-14.4 xulw=177) PLATELET COUNT (BEAKER) (test vkqs=173) 164 K/CU MM 150-450 MEAN PLATELET VOLUME (BEAKER) (test csmc=007) 11.0 fL 9.4-12.4 NUCLEATED RED BLOOD CELLS (BEAKER) (test 0 /100 WBC 0-0 mcmz=021) [id number] 00:36:00 Test Item Value Reference Range Comments POTASSIUM (BEAKER) (test 3.8 meq/L 3.5-5.1 Specimen slightly hemolyzed dyqs=625) [id number] 21:26:00 Test Item Value Reference Range Comments POTASSIUM (BEAKER) (test qqhx=930) 3.7 meq/L 3.5-5.1 POCT-GLUCOSE [id number] 21:17:00 Test Item Value Reference Range Comments POC-GLUCOSE METER (BEAKER) 127 mg/dL 70-110 TESTED AT [address] (test lwif=3701) [facility] [address] CALCIUM, [id number] 21:02:00 Test Item Value Reference Range Comments CALCIUM IONIZED (BEAKER) (test dmhy=726) 1.19 mmol/L 1.12-1.27 PH, BLOOD (BEAKER) (test muim=9907) 7.43 [id number] 17:52:00 Test Item Value Reference Range Comments MAGNESIUM (BEAKER) (test 2.2 mg/dL 1.6-2.6 Specimen slightly hemolyzed rfmk=616) [id number] 17:52:00 Test Item Value Reference Range Comments PHOSPHORUS (BEAKER) (test 3.6 mg/dL 2.3-4.7 Specimen slightly hemolyzed etil=019) [id number] 17:52:00 Test Item Value Reference Range Comments POTASSIUM (BEAKER) (test 4.0 meq/L 3.5-5.1 Specimen slightly hemolyzed vvbm=699) [id number] 17:52:00 Test Item Value Reference Range Comments SODIUM (BEAKER) (test clcf=189) 135 meq/L 136-145 POCT-GLUCOSE [id number] 17:20:00 Test Item Value Reference Range Comments POC-GLUCOSE METER (BEAKER) 82 mg/dL 70-110 TESTED AT [address] (test xurf=7931) [place] [id number] T3, [id number] 14:22:00 Test Item Value Reference Range Comments T3 FREE (BEAKER) (test qcdb=789) 1.50 pg/mL 1.71-3.71 [id number] 13:00:00 Test Item Value Reference Range Comments POTASSIUM (BEAKER) (test 3.9 meq/L 3.5-5.1 Specimen slightly hemolyzed gzml=876) POCT-GLUCOSE [id number] 12:31:00 Test Item Value Reference Range Comments POC-GLUCOSE METER (BEAKER) 144 mg/dL 70-110 TESTED AT [address] (test jcfn=6480) [facility] [address] [id number] 08:30:00 Test Item Value Reference Range Comments POTASSIUM (BEAKER) (test nuwf=288) 3.9 meq/L 3.5-5.1 [id number] 08:30:00 Test Item Value Reference Range Comments MAGNESIUM (BEAKER) (test japa=189) 2.1 mg/dL 1.6-2.6 [id number] 08:30:00 Test Item Value Reference Range Comments PHOSPHORUS (BEAKER) (test biis=405) 2.4 mg/dL 2.3-4.7 [id number] 08:30:00 Test Item Value Reference Range Comments SODIUM (BEAKER) (test xpsk=724) 134 meq/L 136-145 CALCIUM, [id number] 08:06:00 Test Item Value Reference Range Comments CALCIUM IONIZED (BEAKER) (test vxma=117) 1.25 mmol/L 1.12-1.27 PH, BLOOD (BEAKER) (test tkab=8079) 7.39 POCT-GLUCOSE [id number] 07:07:00 Test Item Value Reference Range Comments POC-GLUCOSE METER (BEAKER) 129 mg/dL 70-[address] [facility] [address] [facility] (test oxiq=5333) [facility] [address] BASIC METABOLIC [id number] 04:36:00 Test Item Value Reference Range Comments SODIUM (BEAKER) (test 135 meq/L 136-145 rabb=164) POTASSIUM (BEAKER) (test 4.1 meq/L 3.5-5.1 xpyf=781) CHLORIDE (BEAKER) (test 101 meq/L 98-107 xege=987) CO2 (BEAKER) (test 27 meq/L 22-29 nnub=955) BLOOD UREA NITROGEN 27 mg/dL 7-21 (BEAKER) (test qdas=999) CREATININE (BEAKER) (test 2.87 mg/dL 0.57-1.25 biim=139) GLUCOSE RANDOM (BEAKER) 99 mg/dL 70-105 (test kmnl=164) CALCIUM (BEAKER) (test 9.5 mg/dL 8.4-10.2 gsqs=676) EGFR (BEAKER) (test 22 mL/min/1.73 sq m ESTIMATED GFR IS NOT wjrq=5668) ACCURATE CREATININE CLEARANCE IN PREDICTING GLOMERULAR FILTRATION RATE. ESTIMATED GFR IS NOT APPLICABLE FOR DIALYSIS PATIENTS. [id number] 04:33:00 Test Item Value Reference Range Comments PHOSPHORUS (BEAKER) (test vsir=604) 3.3 mg/dL 2.3-4.7 HEPATIC FUNCTION [id number] 04:33:00 Test Item Value Reference Range Comments TOTAL PROTEIN (BEAKER) (test jqkt=802) 6.5 gm/dL 6.0-8.3 ALBUMIN (BEAKER) (test msyz=4653) 3.3 g/dL 3.5-5.0 BILIRUBIN TOTAL (BEAKER) (test thts=977) 0.6 mg/dL 0.2-1.2 BILIRUBIN DIRECT (BEAKER) (test ekfw=211) 0.4 mg/dL 0.1-0.5 ALKALINE PHOSPHATASE (BEAKER) (test lewn=454) 73 U/L 40-150 AST (SGOT) (BEAKER) (test jadn=807) 86 U/L 5-34 ALT (SGPT) (BEAKER) (test sysu=706) 62 U/L 6-55 CBC (HEMOGRAM ONLY)2018-10-20 04:07:00 Test Item Value Reference Range Comments WHITE BLOOD CELL COUNT (BEAKER) (test tzdl=145) 11.5 K/ L 3.5-10.5 RED BLOOD CELL COUNT (BEAKER) (test wkit=549) 3.31 M/ L 4.63-6.08 HEMOGLOBIN (BEAKER) (test ucpk=594) 10.6 GM/DL 13.7-17.5 HEMATOCRIT (BEAKER) (test mgmx=565) 33.3 % 40.1-51.0 MEAN CORPUSCULAR VOLUME (BEAKER) (test fweh=384) 100.6 fL 79.0-92.2 MEAN CORPUSCULAR HEMOGLOBIN (BEAKER) (test 32.0 pg 25.7-32.2 lixr=293) MEAN CORPUSCULAR HEMOGLOBIN CONC (BEAKER) (test 31.8 GM/DL 32.3-36.5 uapu=851) RED CELL DISTRIBUTION WIDTH (BEAKER) (test 15.0 % 11.6-14.4 ootg=065) PLATELET COUNT (BEAKER) (test hnwn=556) 177 K/CU MM 150-450 MEAN PLATELET VOLUME (BEAKER) (test yyav=523) 11.2 fL 9.4-12.4 NUCLEATED RED BLOOD CELLS (BEAKER) (test 0 /100 WBC 0-0 dtki=632) [id number] 00:24:00 Test Item Value Reference Range Comments POTASSIUM (BEAKER) (test 4.4 meq/L 3.5-5.1 Specimen slightly hemolyzed dkjg=752) POCT-GLUCOSE [id number] 21:42:00 Test Item Value Reference Range Comments POC-GLUCOSE METER (BEAKER) 148 mg/dL 70-[address] [facility] [address] [facility] (test aign=8325) [facility] [address] [id number] 20:25:00 Test Item Value Reference Range Comments POTASSIUM (BEAKER) (test elzv=507) 4.6 meq/L 3.5-5.1 CALCIUM, [id number] 20:14:00 Test Item Value Reference Range Comments CALCIUM IONIZED (BEAKER) (test mqwm=311) 1.26 mmol/L 1.12-1.27 PH, BLOOD (BEAKER) (test myyk=5394) 7.37 POCT-GLUCOSE [id number] 17:34:00 Test Item Value Reference Range Comments POC-GLUCOSE METER (BEAKER) 125 mg/dL 70-[address] [facility] [address] (test yuzd=0801) [facility] [address] [id number] 17:11:00 Test Item Value Reference Range Comments POTASSIUM (BEAKER) (test apjr=148) 4.3 meq/L 3.5-5.1 [id number] 17:11:00 Test Item Value Reference Range Comments MAGNESIUM (BEAKER) (test hija=586) 2.1 mg/dL 1.6-2.6 [id number] 17:11:00 Test Item Value Reference Range Comments PHOSPHORUS (BEAKER) (test sgcg=908) 3.1 mg/dL 2.3-4.7 [id number] 17:11:00 Test Item Value Reference Range Comments SODIUM (BEAKER) (test gkmc=623) 134 meq/L 136-145 RAD, CHEST, 1 VIEW, NON [id number] 17:04:00Reason for exam:-> hypoxiaShould this be performed [...] interstitial pulmonary disease. Signed: Bridget Del Rosario MDReport VerifiedDate/Time: 10/19/2018 17:04:29 Reading Location: [address] Consult Reading Room TROPONIN [id number] 13:49:00 Test Item Value Reference Range Comments TROPONIN I (BEAKER) (test lqog=361) 2.13 ng/mL 0.00-0.03 Troponin I (TnI) levels [...] failure, acidosis, acute neurological disease, and persistent tachyarrhythmia.[id number] 13:35:00 Test Item Value Reference Range Comments POTASSIUM (BEAKER) (test 3.6 meq/L 3.5-5.1 Specimen slightly hemolyzed cmqf=569) PH, [id number] 10:16:00 Test Item Value Reference Range Comments PH VENOUS (BEAKER) (test xnoa=795) 7.39 7.32-7.42 POCT-GLUCOSE [id number] 10:03:00 Test Item Value Reference Range Comments POC-GLUCOSE METER (BEAKER) 134 mg/dL 70-[address] [facility] [address] [facility] (test jxuj=0275) [facility] [address] T4, [id number] 08:51:00 Test Item Value Reference Range Comments FREE T4 (BEAKER) (test ewkr=056) 0.98 ng/dL 0.70-1.48 BLOOD GAS, [id number] 06:17:00 Test Item Value Reference Range Comments PH ARTERIAL (BEAKER) (test rxqy=356) 7.39 7.35-7.45 PCO2 ARTERIAL (BEAKER) (test bhgf=399) 40 mm Hg 35-45 PO2 ARTERIAL (BEAKER) (test piyy=097) 54 mm Hg 80-90 O2 SATURATION ARTERIAL (BEAKER) (test uktz=173) 89.0 % 96.0-97.0 HCO3 ARTERIAL (BEAKER) (test ztfw=236) 24 mmol/L 21-29 BASE EXCESS ARTERIAL (BEAKER) (test qlru=361) -1.4 mmol/L -2.0-3.0 PATIENT TEMPERATURE (BEAKER) (test wrgu=9717) 36.4 FIO2 (BEAKER) (test mvka=9157) 40 BASIC METABOLIC [id number] 05:10:00 Test Item Value Reference Range Comments SODIUM (BEAKER) (test 135 meq/L 136-145 czfp=781) POTASSIUM (BEAKER) (test 5.6 meq/L 3.5-5.1 Specimen slightly ygbq=643) hemolyzed CHLORIDE (BEAKER) (test 98 meq/L 98-107 lszg=595) CO2 (BEAKER) (test 24 meq/L 22-29 gffx=382) BLOOD UREA NITROGEN 56 mg/dL 7-21 (BEAKER) (test olyc=877) CREATININE (BEAKER) (test 6.22 mg/dL 0.57-1.25 Specimen slightly hgyj=992) hemolyzed GLUCOSE RANDOM (BEAKER) 170 mg/dL 70-105 (test ziaf=924) CALCIUM (BEAKER) (test 10.1 mg/dL 8.4-10.2 hduf=517) EGFR (BEAKER) (test 9 mL/min/1.73 sq m ESTIMATED GFR IS NOT fbwv=4682) ACCURATE CREATININE CLEARANCE IN PREDICTING GLOMERULAR FILTRATION RATE. ESTIMATED GFR IS NOT APPLICABLE FOR DIALYSIS PATIENTS. [id number] 05:07:00 Test Item Value Reference Range Comments MAGNESIUM (BEAKER) (test 2.5 mg/dL 1.6-2.6 Specimen slightly hemolyzed mbhe=151) [id number] 05:07:00 Test Item Value Reference Range Comments PHOSPHORUS (BEAKER) (test 6.4 mg/dL 2.3-4.7 Specimen slightly hemolyzed vlbz=102) HEPATIC FUNCTION [id number] 05:07:00 Test Item Value Reference Range Comments TOTAL PROTEIN (BEAKER) (test 7.2 gm/dL 6.0-8.3 Specimen slightly hemolyzed rfbo=342) ALBUMIN (BEAKER) (test 3.8 g/dL 3.5-5.0 Specimen slightly hemolyzed kvdz=5612) BILIRUBIN TOTAL (BEAKER) (test 0.6 mg/dL 0.2-1.2 Specimen slightly hemolyzed rszj=222) BILIRUBIN DIRECT (BEAKER) (test 0.4 mg/dL 0.1-0.5 Specimen slightly hemolyzed rqdx=163) ALKALINE PHOSPHATASE (BEAKER) 78 U/L 40-150 (test cvgb=108) AST (SGOT) (BEAKER) (test 80 U/L 5-34 Specimen slightly hemolyzed polp=581) ALT (SGPT) (BEAKER) (test 37 U/L 6-55 Specimen slightly hemolyzed vpat=019) PROTHROMBIN [id number] 04:50:00 Test Item Value Reference Range Comments PROTIME (BEAKER) (test hlek=748) 34.3 seconds 11.9-14.2 INR (BEAKER) (test daye=475) 3.6 <=5.9 Effective 07/29/2018: PT Reference Range ChangeNew: 11.9-14.2 Previous: 11.7- 14.7RECOMMENDED COUMADIN/WARFARIN INR THERAPY RANGESSTANDARD DOSE: 2.0-3.0 Includes: PROPHYLAXIS for venous thrombosis, systemic embolization; TREATMENT for venous thrombosis and/or pulmonary embolus.HIGH RISK: Target INR is2.5-3.5 for patients wiht mechanical heart valves.CBC (HEMOGRAM ONLY)2018-10-19 04:31:00 Test Item Value Reference Range Comments WHITE BLOOD CELL COUNT (BEAKER) (test nyaq=493) 13.1 K/ L 3.5-10.5 RED BLOOD CELL COUNT (BEAKER) (test vtog=833) 3.58 M/ L 4.63-6.08 HEMOGLOBIN (BEAKER) (test drbc=892) 11.6 GM/DL 13.7-17.5 HEMATOCRIT (BEAKER) (test ztep=920) 36.2 % 40.1-51.0 MEAN CORPUSCULAR VOLUME (BEAKER) (test qfkw=911) 101.1 fL 79.0-92.2 MEAN CORPUSCULAR HEMOGLOBIN (BEAKER) (test 32.4 pg 25.7-32.2 nglq=646) MEAN CORPUSCULAR HEMOGLOBIN CONC (BEAKER) (test 32.0 GM/DL 32.3-36.5 dxbd=523) RED CELL DISTRIBUTION WIDTH (BEAKER) (test 15.1 % 11.6-14.4 uejf=641) PLATELET COUNT (BEAKER) (test fhta=817) 204 K/CU MM 150-450 MEAN PLATELET VOLUME (BEAKER) (test cbju=384) 11.1 fL 9.4-12.4 NUCLEATED RED BLOOD CELLS (BEAKER) (test 0 /100 WBC 0-0 htdt=771) TROPONIN [id number] 01:12:00 Test Item Value Reference Range Comments TROPONIN I (BEAKER) (test gcih=751) 1.38 ng/mL 0.00-0.03 Troponin I (TnI) levels [...] failure, acidosis, acute neurological disease, and persistent tachyarrhythmia.[id number] 01:02:00 Test Item Value Reference Range Comments POTASSIUM (BEAKER) (test gqmi=054) 6.3 meq/L 3.5-5.1 CALCIUM, [id number] 00:09:00 Test Item Value Reference Range Comments CALCIUM IONIZED (BEAKER) (test dabu=928) 1.22 mmol/L 1.12-1.27 PH, BLOOD (BEAKER) (test oefu=2858) 7.31 POCT-GLUCOSE [id number] 22:16:00 Test Item Value Reference Range Comments POC-GLUCOSE METER (BEAKER) 171 mg/dL 70-110 TESTED AT [address] (test pncc=3416) [facility] [address] TROPONIN [id number] 20:58:00 Test Item Value Reference Range Comments TROPONIN I (BEAKER) (test stid=061) 0.42 ng/mL 0.00-0.03 Troponin I (TnI) levels [...] failure, acidosis, acute neurological disease, and persistent tachyarrhythmia.[id number] 20:45:00 Test Item Value Reference Range Comments POTASSIUM (BEAKER) (test 6.6 meq/L 3.5-5.1 Specimen slightly hemolyzed sfhe=587) [id number] 20:43:00 Test Item Value Reference Range Comments MAGNESIUM (BEAKER) (test 2.8 mg/dL 1.6-2.6 Specimen slightly hemolyzed vgnx=494) [id number] 20:43:00 Test Item Value Reference Range Comments PHOSPHORUS (BEAKER) (test 8.5 mg/dL 2.3-4.7 Specimen slightly hemolyzed fnzw=758) [id number] 20:43:00 Test Item Value Reference Range Comments SODIUM (BEAKER) (test gowg=540) 133 meq/L 136-145 HEPATIC FUNCTION [id number] 20:43:00 Test Item Value Reference Range Comments TOTAL PROTEIN (BEAKER) (test 7.6 gm/dL 6.0-8.3 Specimen slightly hemolyzed jwmb=044) ALBUMIN (BEAKER) (test 3.8 g/dL 3.5-5.0 Specimen slightly hemolyzed iaqt=4296) BILIRUBIN TOTAL (BEAKER) (test 0.5 mg/dL 0.2-1.2 Specimen slightly hemolyzed lhqu=073) BILIRUBIN DIRECT (BEAKER) (test 0.3 mg/dL 0.1-0.5 Specimen slightly hemolyzed fztb=341) ALKALINE PHOSPHATASE (BEAKER) 80 U/L 40-150 (test rivj=975) AST (SGOT) (BEAKER) (test 82 U/L 5-34 Specimen slightly hemolyzed xuxw=881) ALT (SGPT) (BEAKER) (test 25 U/L 6-55 Specimen slightly hemolyzed axqa=137) RAD, CHEST, 1 VIEW, NON [id number] 20:41:00Reason for exam:->IJ central lineShould this be [...] bilateral parenchymal opacities are unchanged. Signed: Moreno [place] Verified Date/Time: 20:41:05 Reading Location: [address] Reading Room PH, [id number] 20:21:00 Test Item Value Reference Range Comments PH ARTERIAL (BEAKER) (test oiqu=504) 7.29 7.35-7.45 [id number] 18:06:00 Test Item Value Reference Range Comments THYROID STIMULATING HORMONE (BEAKER) (test 4.98 uIU/mL 0.35-4.94 vnec=337) B-TYPE NATRIURETIC FACTOR (BNP)2018-10-18 17:43:00 Test Item Value Reference Range Comments B-TYPE NATRIURETIC PEPTIDE (BEAKER) (test 8414 pg/mL 0-100 agbn=761) RAD, CHEST, 1 VIEW, NON [id number] 17:14:00Reason for exam:->SOBShould this be performed at [...] MDReport Verified Date/Time: 10/18/2018 17:14:55 Reading Location: [address] Transitional Reading Room BASIC METABOLIC [id number] 15:27:00 Test Item Value Reference Range Comments SODIUM (BEAKER) (test 135 meq/L 136-145 dtel=015) POTASSIUM (BEAKER) (test 6.0 meq/L 3.5-5.1 Specimen slightly npyr=199) hemolyzed CHLORIDE (BEAKER) (test 97 meq/L 98-107 qwbe=590) CO2 (BEAKER) (test 16 meq/L 22-29 roqi=683) BLOOD UREA NITROGEN 70 mg/dL 7-21 (BEAKER) (test ffrd=646) CREATININE (BEAKER) (test 8.88 mg/dL 0.57-1.25 Specimen slightly rdii=242) hemolyzed GLUCOSE RANDOM (BEAKER) 163 mg/dL 70-105 (test awrm=379) CALCIUM (BEAKER) (test 10.5 mg/dL 8.4-10.2 hmlp=134) EGFR (BEAKER) (test 6 mL/min/1.73 sq m ESTIMATED GFR IS NOT kvgs=2441) ACCURATE CREATININE CLEARANCE IN PREDICTING GLOMERULAR FILTRATION RATE. ESTIMATED GFR IS NOT APPLICABLE FOR DIALYSIS PATIENTS. CBC W/PLT COUNT & AUTO [id number] 15:15:00 Test Item Value Reference Range Comments WHITE BLOOD CELL COUNT (BEAKER) (test upab=305) 15.4 K/ L 3.5-10.5 RED BLOOD CELL COUNT (BEAKER) (test bdqx=808) 3.75 M/ L 4.63-6.08 HEMOGLOBIN (BEAKER) (test glem=110) 12.3 GM/DL 13.7-17.5 HEMATOCRIT (BEAKER) (test pcic=005) 38.9 % 40.1-51.0 MEAN CORPUSCULAR VOLUME (BEAKER) (test isgc=690) 103.7 fL 79.0-92.2 MEAN CORPUSCULAR HEMOGLOBIN (BEAKER) (test 32.8 pg 25.7-32.2 cfkm=916) MEAN CORPUSCULAR HEMOGLOBIN CONC (BEAKER) (test 31.6 GM/DL 32.3-36.5 pwlq=917) RED CELL DISTRIBUTION WIDTH (BEAKER) (test 15.2 % 11.6-14.4 uasp=703) PLATELET COUNT (BEAKER) (test eifh=902) 224 K/CU MM 150-450 MEAN PLATELET VOLUME (BEAKER) (test ptgm=506) 11.8 fL 9.4-12.4 NUCLEATED RED BLOOD CELLS (BEAKER) (test 0 /100 WBC 0-0 hqbx=655) (CELLAVISION MANUAL DIFF)2018-10-18 15:15:00 Test Item Value Reference Range Comments NEUTROPHILS - REL (CELLAVISION)(BEAKER) (test 87 % phnw=3360) LYMPHOCYTES - REL (CELLAVISION)(BEAKER) (test 4 % geqf=9063) MONOCYTES - REL (CELLAVISION)(BEAKER) (test 8 % axzm=3392) METAMYELOCYTES - REL (CELLAVISION)(BEAKER) (test 1 % 0-0 dyzi=1077) NEUTROPHILS - ABS (CELLAVISION)(BEAKER) (test 13.40 K/ul 1.78-5.38 vcbz=5957) LYMPHOCYTES - ABS (CELLAVISION)(BEAKER) (test 0.62 K/ul 1.32-3.57 qwnb=0691) MONOCYTES - ABS (CELLAVISION)(BEAKER) (test 1.23 K/uL 0.30-0.82 fpnk=8651) METAMYELOCYTES - ABS (CELLAVISION)(BEAKER) (test 0.15 K/uL 0.00-0.00 fqws=8439) TOTAL COUNTED (BEAKER) (test aphk=5970) 100 WBC MORPHOLOGY (BEAKER) (test tmdk=536) Normal PLT MORPHOLOGY (BEAKER) (test wbcn=397) Normal ANISOCYTOSIS (BEAKER) (test pnmq=112) 1+ few MACROCYTES (BEAKER) (test shmf=807) 1+ few POIKILOCYTES (BEAKER) (test zdhe=303) 1+ few ARTIFACT (CELLAVISION)(BEAKER) (test zqhf=2887) Present PLATELET CONCENTRATION (CELLAVISION)(BEAKER) Adequate (test fxkp=5900) Received comment: User comments: Slide comments:HEPATIC FUNCTION [id number] 15:08:00 Test Item Value Reference Range Comments TOTAL PROTEIN (BEAKER) (test 7.7 gm/dL 6.0-8.3 Specimen slightly hemolyzed ndba=478) ALBUMIN (BEAKER) (test 3.9 g/dL 3.5-5.0 Specimen slightly hemolyzed envb=6545) BILIRUBIN TOTAL (BEAKER) (test 0.6 mg/dL 0.2-1.2 Specimen slightly hemolyzed cyqq=140) BILIRUBIN DIRECT (BEAKER) (test 0.3 mg/dL 0.1-0.5 Specimen slightly hemolyzed rjms=525) ALKALINE PHOSPHATASE (BEAKER) 87 U/L 40-150 (test swrx=227) AST (SGOT) (BEAKER) (test 53 U/L 5-34 Specimen slightly hemolyzed dzjj=608) ALT (SGPT) (BEAKER) (test 19 U/L 6-55 Specimen slightly hemolyzed fnjv=622) PT/[id number] 14:50:00 Test Item Value Reference Range Comments PROTIME (BEAKER) (test bfsc=176) 38.6 seconds 11.9-14.2 INR (BEAKER) (test wghn=998) 4.2 <=5.9 PARTIAL THROMBOPLASTIN TIME (BEAKER) (test 51.3 seconds 22.5-36.0 wxbi=715) Effective 07/29/2018: PT Reference Range ChangeNew: 11.9-14.2 Previous: 11.7- 14.7RECOMMENDED COUMADIN/WARFARIN INR THERAPY RANGESSTANDARD DOSE: 2.0-3.0 Includes: PROPHYLAXIS for venous thrombosis, systemic embolization; TREATMENT for venous thrombosis and/or pulmonary embolus.HIGH RISK: Target INR is2.5-3.5 for patients wiht mechanical heart valves.PT/[id number] 11:42:00 Test Item Value Reference Range Comments PROTIME (BEAKER) (test uhkz=978) 24.7 seconds 11.9-14.2 INR (BEAKER) (test qlfg=735) 2.4 <=5.9 PARTIAL THROMBOPLASTIN TIME (BEAKER) (test 57.0 seconds 22.5-36.0 uszs=308) Effective 07/29/2018: PT Reference Range ChangeNew: 11.9-14.2 Previous: 11.7- 14.7RECOMMENDED COUMADIN/WARFARIN INR THERAPY RANGESSTANDARD DOSE: 2.0-3.0 Includes: PROPHYLAXIS for venous thrombosis, systemic embolization; TREATMENT for venous thrombosis and/or pulmonary embolus.HIGH RISK: Target INR is2.5-3.5 for patients wiht mechanical heart valves.RAD, CHEST, 1 VIEW, NON [id number] 11:15:00Reason for exam:->effusion vs atelectasisShould this [...] Juan Verified Date/Time: 08/26/2018 11:15:52 Reading Location: [facility] Radiology Reading Room [id number] 09:15:00 Test Item Value Reference Range Comments PHOSPHORUS (BEAKER) (test aptz=946) 2.9 mg/dL 2.3-4.7 [id number] 09:15:00 Test Item Value Reference Range Comments MAGNESIUM (BEAKER) (test mrri=657) 1.6 mg/dL 1.6-2.6 COMPREHENSIVE METABOLIC [id number] 09:15:00 Test Item Value Reference Range Comments TOTAL PROTEIN (BEAKER) 5.7 gm/dL 6.0-8.3 (test rcna=623) ALBUMIN (BEAKER) (test 2.8 g/dL 3.5-5.0 qayj=0313) ALKALINE PHOSPHATASE 148 U/L 40-150 (BEAKER) (test wvmw=975) BILIRUBIN TOTAL (BEAKER) 1.5 mg/dL 0.2-1.2 (test hfat=722) SODIUM (BEAKER) (test 137 meq/L 136-145 afin=363) POTASSIUM (BEAKER) (test 3.8 meq/L 3.5-5.1 ngxh=809) CHLORIDE (BEAKER) (test 102 meq/L 98-107 sgpu=543) CO2 (BEAKER) (test 29 meq/L 22-29 xmyf=277) BLOOD UREA NITROGEN 16 mg/dL 7-21 (BEAKER) (test npbr=032) CREATININE (BEAKER) (test 3.59 mg/dL 0.57-1.25 oiro=401) GLUCOSE RANDOM (BEAKER) 74 mg/dL 70-105 (test kajg=617) CALCIUM (BEAKER) (test 8.5 mg/dL 8.4-10.2 ligw=491) AST (SGOT) (BEAKER) (test 24 U/L 5-34 nlly=485) ALT (SGPT) (BEAKER) (test 8 U/L 6-55 hfdk=503) EGFR (BEAKER) (test 17 mL/min/1.73 sq m ESTIMATED GFR IS NOT ozxj=1272) ACCURATE CREATININE CLEARANCE IN PREDICTING GLOMERULAR FILTRATION RATE. ESTIMATED GFR IS NOT APPLICABLE FOR DIALYSIS PATIENTS. POCT-GLUCOSE [id number] 09:06:00 Test Item Value Reference Range Comments POC-GLUCOSE METER (BEAKER) 85 mg/dL 70-[address] [facility] [address] (test ijpq=9572) [facility] [address] CBC W/PLT COUNT & AUTO [id number] 08:34:00 Test Item Value Reference Range Comments WHITE BLOOD CELL COUNT (BEAKER) (test puhn=440) 7.5 K/ L 3.5-10.5 RED BLOOD CELL COUNT (BEAKER) (test ovfo=506) 2.50 M/ L 4.63-6.08 HEMOGLOBIN (BEAKER) (test cmmd=961) 7.9 GM/DL 13.7-17.5 HEMATOCRIT (BEAKER) (test bdbt=536) 25.5 % 40.1-51.0 MEAN CORPUSCULAR VOLUME (BEAKER) (test jktv=641) 102.0 fL 79.0-92.2 MEAN CORPUSCULAR HEMOGLOBIN (BEAKER) (test 31.6 pg 25.7-32.2 qfzy=625) MEAN CORPUSCULAR HEMOGLOBIN CONC (BEAKER) (test 31.0 GM/DL 32.3-36.5 fnjm=769) RED CELL DISTRIBUTION WIDTH (BEAKER) (test 17.3 % 11.6-14.4 njes=923) PLATELET COUNT (BEAKER) (test ghpd=778) 140 K/CU MM 150-450 MEAN PLATELET VOLUME (BEAKER) (test porr=040) 10.1 fL 9.4-12.4 NUCLEATED RED BLOOD CELLS (BEAKER) (test 0 /100 WBC 0-0 xqiz=390) NEUTROPHILS RELATIVE PERCENT (BEAKER) (test 70 % dsnf=394) LYMPHOCYTES RELATIVE PERCENT (BEAKER) (test 13 % xkeh=704) MONOCYTES RELATIVE PERCENT (BEAKER) (test 11 % pobk=904) EOSINOPHILS RELATIVE PERCENT (BEAKER) (test 5 % xczi=918) BASOPHILS RELATIVE PERCENT (BEAKER) (test 1 % sasx=244) NEUTROPHILS ABSOLUTE COUNT (BEAKER) (test 5.25 K/ L 1.78-5.38 iggg=536) LYMPHOCYTES ABSOLUTE COUNT (BEAKER) (test 0.97 K/ L 1.32-3.57 elor=752) MONOCYTES ABSOLUTE COUNT (BEAKER) (test 0.84 K/ L 0.30-0.82 kxnc=468) EOSINOPHILS ABSOLUTE COUNT (BEAKER) (test 0.37 K/ L 0.04-0.54 cyvw=894) BASOPHILS ABSOLUTE COUNT (BEAKER) (test 0.05 K/ L 0.01-0.08 dxye=796) IMMATURE GRANULOCYTES-RELATIVE PERCENT (BEAKER) 1 % 0-1 (test nigx=5889) BLOOD [id number] 08:01:00 Test Item Value Reference Range Comments CULTURE (BEAKER) (test lxea=2094) No growth in 5 days BLOOD [id number] 08:01:00 Test Item Value Reference Range Comments CULTURE (BEAKER) (test ceac=6428) No growth in 5 days POCT-GLUCOSE [id number] 22:09:00 Test Item Value Reference Range Comments POC-GLUCOSE METER (BEAKER) 186 mg/dL 70-[address] [facility] [address] [facility] (test yivu=0462) [facility] [address] [id number] 18:27:00 Test Item Value Reference Range Comments MAGNESIUM (BEAKER) (test 1.8 mg/dL 1.6-2.6 Specimen slightly hemolyzed zdyw=737) [id number] 18:27:00 Test Item Value Reference Range Comments PHOSPHORUS (BEAKER) (test 2.0 mg/dL 2.3-4.7 Specimen slightly hemolyzed ikrg=996) COMPREHENSIVE METABOLIC [id number] 18:27:00 Test Item Value Reference Range Comments TOTAL PROTEIN (BEAKER) 5.7 gm/dL 6.0-8.3 Specimen slightly (test kbcg=801) hemolyzed ALBUMIN (BEAKER) (test 2.8 g/dL 3.5-5.0 Specimen slightly gsbo=7680) hemolyzed ALKALINE PHOSPHATASE 149 U/L 40-150 (BEAKER) (test mfjn=820) BILIRUBIN TOTAL (BEAKER) 1.5 mg/dL 0.2-1.2 Specimen slightly (test qief=541) hemolyzed SODIUM (BEAKER) (test 139 meq/L 136-145 vqhr=227) POTASSIUM (BEAKER) (test 3.8 meq/L 3.5-5.1 Specimen slightly zupj=982) hemolyzed CHLORIDE (BEAKER) (test 102 meq/L 98-107 mlaw=974) CO2 (BEAKER) (test 27 meq/L 22-29 cyjj=695) BLOOD UREA NITROGEN 8 mg/dL 7-21 (BEAKER) (test jira=115) CREATININE (BEAKER) (test 2.16 mg/dL 0.57-1.25 Specimen slightly pdnh=964) hemolyzed GLUCOSE RANDOM (BEAKER) 129 mg/dL 70-105 (test jkzc=215) CALCIUM (BEAKER) (test 8.5 mg/dL 8.4-10.2 kkmx=168) AST (SGOT) (BEAKER) (test 34 U/L 5-34 Specimen slightly rtoo=045) hemolyzed ALT (SGPT) (BEAKER) (test 10 U/L 6-55 Specimen slightly dnfm=188) hemolyzed EGFR (BEAKER) (test 30 mL/min/1.73 sq m ESTIMATED GFR IS NOT bzgu=2917) ACCURATE CREATININE CLEARANCE IN PREDICTING GLOMERULAR FILTRATION RATE. ESTIMATED GFR IS NOT APPLICABLE FOR DIALYSIS PATIENTS. PROTHROMBIN [id number] 18:24:00 Test Item Value Reference Range Comments PROTIME (BEAKER) (test bgso=410) 28.1 seconds 11.9-14.2 INR (BEAKER) (test tqmd=480) 2.8 <=5.9 Effective 07/29/2018: PT Reference Range ChangeNew: 11.9-14.2 Previous: 11.7- 14.7RECOMMENDED COUMADIN/WARFARIN INR THERAPY RANGESSTANDARD DOSE: 2.0-3.0 Includes: PROPHYLAXIS for venous thrombosis, systemic embolization; TREATMENT for venous thrombosis and/or pulmonary embolus.HIGH RISK: Target INR is2.5-3.5 for patients wiht mechanical heart valves.CBC W/PLT COUNT & AUTO [id number] 18:07:00 Test Item Value Reference Range Comments WHITE BLOOD CELL COUNT (BEAKER) (test yhdk=671) 7.4 K/ L 3.5-10.5 RED BLOOD CELL COUNT (BEAKER) (test uyya=280) 2.23 M/ L 4.63-6.08 HEMOGLOBIN (BEAKER) (test hiwi=042) 7.0 GM/DL 13.7-17.5 HEMATOCRIT (BEAKER) (test dxft=072) 22.8 % 40.1-51.0 MEAN CORPUSCULAR VOLUME (BEAKER) (test yqdl=401) 102.2 fL 79.0-92.2 MEAN CORPUSCULAR HEMOGLOBIN (BEAKER) (test 31.4 pg 25.7-32.2 bucb=040) MEAN CORPUSCULAR HEMOGLOBIN CONC (BEAKER) (test 30.7 GM/DL 32.3-36.5 mfkh=536) RED CELL DISTRIBUTION WIDTH (BEAKER) (test 17.5 % 11.6-14.4 wmap=583) PLATELET COUNT (BEAKER) (test ojwb=319) 141 K/CU MM 150-450 MEAN PLATELET VOLUME (BEAKER) (test epyb=147) 10.4 fL 9.4-12.4 NUCLEATED RED BLOOD CELLS (BEAKER) (test 0 /100 WBC 0-0 gpmp=917) NEUTROPHILS RELATIVE PERCENT (BEAKER) (test 76 % nbga=907) LYMPHOCYTES RELATIVE PERCENT (BEAKER) (test 7 % ynwf=960) MONOCYTES RELATIVE PERCENT (BEAKER) (test 11 % mtun=622) EOSINOPHILS RELATIVE PERCENT (BEAKER) (test 5 % lrly=220) BASOPHILS RELATIVE PERCENT (BEAKER) (test 1 % swjn=754) NEUTROPHILS ABSOLUTE COUNT (BEAKER) (test 5.54 K/ L 1.78-5.38 lhfm=284) LYMPHOCYTES ABSOLUTE COUNT (BEAKER) (test 0.54 K/ L 1.32-3.57 jftp=790) MONOCYTES ABSOLUTE COUNT (BEAKER) (test 0.78 K/ L 0.30-0.82 ytwn=214) EOSINOPHILS ABSOLUTE COUNT (BEAKER) (test 0.37 K/ L 0.04-0.54 juxh=914) BASOPHILS ABSOLUTE COUNT (BEAKER) (test 0.06 K/ L 0.01-0.08 yeib=202) IMMATURE GRANULOCYTES-RELATIVE PERCENT (BEAKER) 1 % 0-1 (test qezb=8221) POCT-GLUCOSE [id number] 17:43:00 Test Item Value Reference Range Comments POC-GLUCOSE METER (BEAKER) 140 mg/dL 70-110 TESTED AT [place] [address] (test znrf=1631) [facility] [address] POCT-GLUCOSE [id number] 19:25:00 Test Item Value Reference Range Comments POC-GLUCOSE METER (BEAKER) 106 mg/dL 70-110 TESTED AT [place] [address] [address] (test mpuw=0271) [facility] [address] COMPREHENSIVE METABOLIC [id number] 17:30:00 Test Item Value Reference Range Comments TOTAL PROTEIN (BEAKER) 5.7 gm/dL 6.0-8.3 (test prcd=965) ALBUMIN (BEAKER) (test 2.8 g/dL 3.5-5.0 kcta=6338) ALKALINE PHOSPHATASE 166 U/L 40-150 (BEAKER) (test wxow=231) BILIRUBIN TOTAL (BEAKER) 1.6 mg/dL 0.2-1.2 (test fooj=976) SODIUM (BEAKER) (test 135 meq/L 136-145 pnyl=278) POTASSIUM (BEAKER) (test 4.4 meq/L 3.5-5.1 dizi=824) CHLORIDE (BEAKER) (test 99 meq/L 98-107 guwm=025) CO2 (BEAKER) (test 29 meq/L 22-29 ygjs=674) BLOOD UREA NITROGEN 31 mg/dL 7-21 (BEAKER) (test klqx=295) CREATININE (BEAKER) (test 5.20 mg/dL 0.57-1.25 glyz=908) GLUCOSE RANDOM (BEAKER) 127 mg/dL 70-105 (test mwqx=330) CALCIUM (BEAKER) (test 8.8 mg/dL 8.4-10.2 rlpt=844) AST (SGOT) (BEAKER) (test 30 U/L 5-34 geqi=933) ALT (SGPT) (BEAKER) (test 9 U/L 6-55 iqvz=485) EGFR (BEAKER) (test 11 mL/min/1.73 sq m ESTIMATED GFR IS NOT jord=0917) ACCURATE CREATININE CLEARANCE IN PREDICTING GLOMERULAR FILTRATION RATE. ESTIMATED GFR IS NOT APPLICABLE FOR DIALYSIS PATIENTS. [id number] 17:29:00 Test Item Value Reference Range Comments PHOSPHORUS (BEAKER) (test cmtt=946) 4.0 mg/dL 2.3-4.7 [id number] 17:29:00 Test Item Value Reference Range Comments MAGNESIUM (BEAKER) (test ucgk=939) 2.2 mg/dL 1.6-2.6 [id number] 17:25:00 Test Item Value Reference Range Comments PROTIME (BEAKER) (test ydms=176) 24.9 seconds 11.9-14.2 INR (BEAKER) (test chjn=996) 2.4 <=5.9 PARTIAL THROMBOPLASTIN TIME (BEAKER) (test 49.8 seconds 22.5-36.0 sdit=471) Effective 07/29/2018: PT Reference Range ChangeNew: 11.9-14.2 Previous: 11.7- 14.7RECOMMENDED COUMADIN/WARFARIN INR THERAPY RANGESSTANDARD DOSE: 2.0-3.0 Includes: PROPHYLAXIS for venous thrombosis, systemic embolization; TREATMENT for venous thrombosis and/or pulmonary embolus.HIGH RISK: Target INR is2.5-3.5 for patients wiht mechanical heart valves.Draw during dialysisDraw during dialysisPROTHROMBIN [id number] 17:24:00 Test Item Value Reference Range Comments PROTIME (BEAKER) (test ditd=576) 24.9 seconds 11.9-14.2 INR (BEAKER) (test llcj=374) 2.4 <=5.9 Effective 07/29/2018: PT Reference Range ChangeNew: 11.9-14.2 Previous: 11.7- 14.7RECOMMENDED COUMADIN/WARFARIN INR THERAPY RANGESSTANDARD DOSE: 2.0-3.0 Includes: PROPHYLAXIS for venous thrombosis, systemic embolization; TREATMENT for venous thrombosis and/or pulmonary embolus.HIGH RISK: Target INR is2.5-3.5 for patients wiht mechanical heart valves.CBC W/PLT COUNT & AUTO [id number] 17:17:00 Test Item Value Reference Range Comments WHITE BLOOD CELL COUNT (BEAKER) (test yzck=565) 8.0 K/ L 3.5-10.5 RED BLOOD CELL COUNT (BEAKER) (test gcvj=601) 2.31 M/ L 4.63-6.08 HEMOGLOBIN (BEAKER) (test arva=338) 7.4 GM/DL 13.7-17.5 HEMATOCRIT (BEAKER) (test ezuc=646) 23.0 % 40.1-51.0 MEAN CORPUSCULAR VOLUME (BEAKER) (test twrk=066) 99.6 fL 79.0-92.2 MEAN CORPUSCULAR HEMOGLOBIN (BEAKER) (test 32.0 pg 25.7-32.2 zfie=937) MEAN CORPUSCULAR HEMOGLOBIN CONC (BEAKER) (test 32.2 GM/DL 32.3-36.5 bobd=711) RED CELL DISTRIBUTION WIDTH (BEAKER) (test 17.6 % 11.6-14.4 zmya=354) PLATELET COUNT (BEAKER) (test xzvn=203) 140 K/CU MM 150-450 MEAN PLATELET VOLUME (BEAKER) (test vvvu=873) 10.6 fL 9.4-12.4 NUCLEATED RED BLOOD CELLS (BEAKER) (test 0 /100 WBC 0-0 usuh=264) NEUTROPHILS RELATIVE PERCENT (BEAKER) (test 77 % qdnt=282) LYMPHOCYTES RELATIVE PERCENT (BEAKER) (test 8 % pgvh=587) MONOCYTES RELATIVE PERCENT (BEAKER) (test 10 % mlbp=684) EOSINOPHILS RELATIVE PERCENT (BEAKER) (test 5 % fkuj=724) BASOPHILS RELATIVE PERCENT (BEAKER) (test 1 % dgms=362) NEUTROPHILS ABSOLUTE COUNT (BEAKER) (test 6.12 K/ L 1.78-5.38 kuro=117) LYMPHOCYTES ABSOLUTE COUNT (BEAKER) (test 0.62 K/ L 1.32-3.57 fcbt=106) MONOCYTES ABSOLUTE COUNT (BEAKER) (test 0.78 K/ L 0.30-0.82 xpdz=655) EOSINOPHILS ABSOLUTE COUNT (BEAKER) (test 0.38 K/ L 0.04-0.54 sehk=615) BASOPHILS ABSOLUTE COUNT (BEAKER) (test 0.04 K/ L 0.01-0.08 mvez=794) IMMATURE GRANULOCYTES-RELATIVE PERCENT (BEAKER) 1 % 0-1 (test lqds=2647) POCT-GLUCOSE [id number] 12:10:00 Test Item Value Reference Range Comments POC-GLUCOSE METER (BEAKER) 164 mg/dL 70-[address] [facility] [address] [facility] (test vcnx=1886) [facility] [address] RAD, CHEST, 1 VIEW, NON [id number] 09:42:00Reason for exam:->effusion vs atelectasisShould this be performed at the bedside?->YesFINAL REPORT CLINICAL HISTORY: effusion vs atelectasis TECHNIQUE: 1 view of the chest. COMPARISON: 08/23/2018 IMPRESSION: The left central line is unchanged. Bilateral airspace opacities appear slightly decreased. There is no significant pleural fluid. The cardiomediastinal silhouette is magnified by technique. Signed: Stephanie Santacruz Verified Date/Time: 08/24/2018 09:42: 37 Reading Location: [facility] Radiology Reading Room POCT-GLUCOSE [id number] 08:18:00 Test Item Value Reference Range Comments POC-GLUCOSE METER (BEAKER) 145 mg/dL 70-110 TESTED AT [address] (test boof=5494) [facility] [address] POCT-GLUCOSE [id number] 23:55:00 Test Item Value Reference Range Comments POC-GLUCOSE METER (BEAKER) 163 mg/dL 70-110 TESTED AT [address] (test gowx=6283) [place] [id number] POCT-GLUCOSE [id number] 18:04:00 Test Item Value Reference Range Comments POC-GLUCOSE METER (BEAKER) 141 mg/dL 70-110 TESTED AT [address] (test gpzl=0387) [facility] [address] POCT-GLUCOSE [id number] 08:04:00 Test Item Value Reference Range Comments POC-GLUCOSE METER (BEAKER) 138 mg/dL 70-110 TESTED AT [address] (test ylag=0769) [facility] [address] RAD, CHEST, 1 VIEW, NON [id number] 07:29:00Reason for exam:->effusion vs atelectasisShould this be [...] by technique. Signed: Stephanie Santacruz Verified Date/Time: 07:29:02 Reading Location: [facility] C013 Neuro Reading Room COMPREHENSIVE METABOLIC [id number] 04:16:00 Test Item Value Reference Range Comments TOTAL PROTEIN (BEAKER) 5.6 gm/dL 6.0-8.3 (test nrrj=703) ALBUMIN (BEAKER) (test 2.8 g/dL 3.5-5.0 rysf=8873) ALKALINE PHOSPHATASE 174 U/L 40-150 (BEAKER) (test espz=815) BILIRUBIN TOTAL (BEAKER) 1.5 mg/dL 0.2-1.2 (test pohi=879) SODIUM (BEAKER) (test 138 meq/L 136-145 kwfa=500) POTASSIUM (BEAKER) (test 4.0 meq/L 3.5-5.1 thse=816) CHLORIDE (BEAKER) (test 102 meq/L 98-107 ggzf=119) CO2 (BEAKER) (test 27 meq/L 22-29 tibt=571) BLOOD UREA NITROGEN 19 mg/dL 7-21 (BEAKER) (test umwi=308) CREATININE (BEAKER) (test 3.43 mg/dL 0.57-1.25 pbgf=023) GLUCOSE RANDOM (BEAKER) 146 mg/dL 70-105 (test cjpn=189) CALCIUM (BEAKER) (test 8.7 mg/dL 8.4-10.2 uzok=640) AST (SGOT) (BEAKER) (test 31 U/L 5-34 bycp=454) ALT (SGPT) (BEAKER) (test 15 U/L 6-55 oimn=044) EGFR (BEAKER) (test 18 mL/min/1.73 sq m ESTIMATED GFR IS NOT kdgv=9688) ACCURATE CREATININE CLEARANCE IN PREDICTING GLOMERULAR FILTRATION RATE. ESTIMATED GFR IS NOT APPLICABLE FOR DIALYSIS PATIENTS. [id number] 04:04:00 Test Item Value Reference Range Comments PHOSPHORUS (BEAKER) (test gigj=954) 2.8 mg/dL 2.3-4.7 [id number] 04:04:00 Test Item Value Reference Range Comments MAGNESIUM (BEAKER) (test guqg=497) 1.9 mg/dL 1.6-2.6 CBC W/PLT COUNT & AUTO [id number] 03:34:00 Test Item Value Reference Range Comments WHITE BLOOD CELL COUNT (BEAKER) (test xlwh=047) 7.1 K/ L 3.5-10.5 RED BLOOD CELL COUNT (BEAKER) (test rcnl=117) 2.48 M/ L 4.63-6.08 HEMOGLOBIN (BEAKER) (test ssmi=270) 7.8 GM/DL 13.7-17.5 HEMATOCRIT (BEAKER) (test nwfd=607) 25.0 % 40.1-51.0 MEAN CORPUSCULAR VOLUME (BEAKER) (test grlx=253) 100.8 fL 79.0-92.2 MEAN CORPUSCULAR HEMOGLOBIN (BEAKER) (test 31.5 pg 25.7-32.2 sgyj=727) MEAN CORPUSCULAR HEMOGLOBIN CONC (BEAKER) (test 31.2 GM/DL 32.3-36.5 sdbo=349) RED CELL DISTRIBUTION WIDTH (BEAKER) (test 17.5 % 11.6-14.4 amcy=912) PLATELET COUNT (BEAKER) (test yonl=674) 150 K/CU MM 150-450 MEAN PLATELET VOLUME (BEAKER) (test ndxl=362) 10.5 fL 9.4-12.4 NUCLEATED RED BLOOD CELLS (BEAKER) (test 0 /100 WBC 0-0 jnuh=614) NEUTROPHILS RELATIVE PERCENT (BEAKER) (test 72 % lcyx=928) LYMPHOCYTES RELATIVE PERCENT (BEAKER) (test 12 % xmva=068) MONOCYTES RELATIVE PERCENT (BEAKER) (test 10 % bkyt=326) EOSINOPHILS RELATIVE PERCENT (BEAKER) (test 5 % exhr=258) BASOPHILS RELATIVE PERCENT (BEAKER) (test 1 % buok=278) NEUTROPHILS ABSOLUTE COUNT (BEAKER) (test 5.08 K/ L 1.78-5.38 ohdf=623) LYMPHOCYTES ABSOLUTE COUNT (BEAKER) (test 0.86 K/ L 1.32-3.57 jqwr=042) MONOCYTES ABSOLUTE COUNT (BEAKER) (test 0.68 K/ L 0.30-0.82 nnst=454) EOSINOPHILS ABSOLUTE COUNT (BEAKER) (test 0.36 K/ L 0.04-0.54 jfqv=995) BASOPHILS ABSOLUTE COUNT (BEAKER) (test 0.04 K/ L 0.01-0.08 hilk=854) IMMATURE GRANULOCYTES-RELATIVE PERCENT (BEAKER) 1 % 0-1 (test gkys=5759) [id number] 03:34:00 Test Item Value Reference Range Comments PROTIME (BEAKER) (test ekhw=934) 24.7 seconds 11.9-14.2 INR (BEAKER) (test dntu=436) 2.4 <=5.9 PARTIAL THROMBOPLASTIN TIME (BEAKER) (test 78.1 seconds 22.5-36.0 cvzd=662) Effective 07/29/2018: PT Reference Range ChangeNew: 11.9-14.2 Previous: 11.7- 14.7RECOMMENDED COUMADIN/WARFARIN INR THERAPY RANGESSTANDARD DOSE: 2.0-3.0 Includes: PROPHYLAXIS for venous thrombosis, systemic embolization; TREATMENT for venous thrombosis and/or pulmonary embolus.HIGH RISK: Target INR is2.5-3.5 for patients wiht mechanical heart valves.PROTHROMBIN [id number] 03:32: 00 Test Item Value Reference Range Comments PROTIME (BEAKER) (test uwlk=620) 24.7 seconds 11.9-14.2 INR (BEAKER) (test fsbo=548) 2.4 <=5.9 Effective 07/29/2018: PT Reference Range ChangeNew: 11.9-14.2 Previous: 11.7- 14.7RECOMMENDED COUMADIN/WARFARIN INR THERAPY RANGESSTANDARD DOSE: 2.0-3.0 Includes: PROPHYLAXIS for venous thrombosis, systemic embolization; TREATMENT for venous thrombosis and/or pulmonary embolus.HIGH RISK: Target INR is2.5-3.5 for patients wiht mechanical heart valves.POCT-GLUCOSE [id number] 21:42:00 Test Item Value Reference Range Comments POC-GLUCOSE METER (BEAKER) 155 mg/dL 70-110 TESTED AT [address] (test wjxw=4256) [facility] [address] HEPATITIS B SURFACE [id number] 18:37:00 Test Item Value Reference Range Comments HEPATITIS B SURFACE ANTIGEN (2) (BEAKER) (test Nonreactive Nonreactive pulb=3779) POCT-GLUCOSE [id number] 16:21:00 Test Item Value Reference Range Comments POC-GLUCOSE METER (BEAKER) 114 mg/dL 70-110 TESTED AT [address] (test nkrt=9756) [facility] [address] RAD, CHEST, 1 VIEW, NON [id number] 10:26:00Reason for exam:->effusion vs atelectasisShould this be [...] 1. No acute cardiopulmonary disease. Signed: Franklin Juaneport Verified Date/Time: 08/22 10:26:49 Reading Location: [address] Transitional Reading Room COMPREHENSIVE METABOLIC [id number] 09:58:00 Test Item Value Reference Range Comments TOTAL PROTEIN (BEAKER) 5.7 gm/dL 6.0-8.3 Specimen slightly (test muqq=360) hemolyzed ALBUMIN (BEAKER) (test 2.8 g/dL 3.5-5.0 Specimen slightly lpfh=5781) hemolyzed ALKALINE PHOSPHATASE 179 U/L 40-150 (BEAKER) (test xrli=390) BILIRUBIN TOTAL (BEAKER) 1.2 mg/dL 0.2-1.2 Specimen slightly (test tfxo=538) hemolyzed SODIUM (BEAKER) (test 137 meq/L 136-145 vuzp=791) POTASSIUM (BEAKER) (test 4.8 meq/L 3.5-5.1 Specimen slightly tnxj=225) hemolyzed CHLORIDE (BEAKER) (test 104 meq/L 98-107 dofi=514) CO2 (BEAKER) (test 25 meq/L 22-29 hxtu=380) BLOOD UREA NITROGEN 30 mg/dL 7-21 (BEAKER) (test kyjs=272) CREATININE (BEAKER) (test 4.82 mg/dL 0.57-1.25 Specimen slightly lukq=962) hemolyzed GLUCOSE RANDOM (BEAKER) 139 mg/dL 70-105 (test sufu=060) CALCIUM (BEAKER) (test 8.7 mg/dL 8.4-10.2 pnkq=869) AST (SGOT) (BEAKER) (test 38 U/L 5-34 Specimen slightly nfix=394) hemolyzed ALT (SGPT) (BEAKER) (test 18 U/L 6-55 Specimen slightly tgbn=272) hemolyzed EGFR (BEAKER) (test 12 mL/min/1.73 sq m ESTIMATED GFR IS NOT iopa=6396) ACCURATE CREATININE CLEARANCE IN PREDICTING GLOMERULAR FILTRATION RATE. ESTIMATED GFR IS NOT APPLICABLE FOR DIALYSIS PATIENTS. [id number] 09:41:00 Test Item Value Reference Range Comments MAGNESIUM (BEAKER) (test 2.3 mg/dL 1.6-2.6 Specimen slightly hemolyzed yefv=571) [id number] 09:41:00 Test Item Value Reference Range Comments PHOSPHORUS (BEAKER) (test 3.8 mg/dL 2.3-4.7 Specimen slightly hemolyzed fhpz=557) BLOOD [id number] 09:14:00 Test Item Value Reference Range Comments CULTURE (BEAKER) (test STAPHYLOCOCCUS AUREUS From Aerobic And wwte=0427) Anaerobic Bottles Staphylococcus aureus Clindamycin (test code=10) Erythromycin (test code=4) Linezolid (test code=40) Oxacillin (test code=14) Rifampin (test code=43) Tetracycline (test code=2) Trimethoprim + Sulfamethoxazole (test code=47) Vancomycin (test code=13) GRAM STAIN RESULT From aerobic and (BEAKER) (test vzyk=8823) anaerobic bottles: gram positive cocci in pairs and clusters U/S, EXTREMITY (NON-VASCULAR) [id number] 08:59:00Reason for exam:-> AVF Left arm for [...] Verified Date/Time: 08/22/2018 08: 59:48 Reading Location: [facility] [id number] Ortho Consult Reading Room POCT- GLUCOSE [id number] 07:15:00 Test Item Value Reference Range Comments POC-GLUCOSE METER (BEAKER) 160 mg/dL 70-[address] [facility] [address] (test otla=9031) [facility] [address] [id number] 06:52:00 Test Item Value Reference Range Comments PROTIME (BEAKER) (test tkpo=967) 18.5 seconds 11.9-14.2 INR (BEAKER) (test umrh=976) 1.6 <=5.9 PARTIAL THROMBOPLASTIN TIME (BEAKER) (test 72.0 seconds 22.5-36.0 smfz=817) Effective 07/29/2018: PT Reference Range ChangeNew: 11.9-14.2 Previous: 11.7- 14.7RECOMMENDED COUMADIN/WARFARIN INR THERAPY RANGESSTANDARD DOSE: 2.0-3.0 Includes: PROPHYLAXIS for venous thrombosis, systemic embolization; TREATMENT for venous thrombosis and/or pulmonary embolus.HIGH RISK: Target INR is2.5-3.5 for patients wiht mechanical heart valves.CBC W/PLT COUNT & AUTO [id number] 06:44:00 Test Item Value Reference Range Comments WHITE BLOOD CELL COUNT 7.2 K/ L 3.5-10.5 (BEAKER) (test heoc=978) RED BLOOD CELL COUNT (BEAKER) 2.58 M/ L 4.63-6.08 (test qhdp=466) HEMOGLOBIN (BEAKER) (test 8.2 GM/DL 13.7-17.5 wcge=242) HEMATOCRIT (BEAKER) (test 26.4 % 40.1-51.0 dhxc=805) MEAN CORPUSCULAR VOLUME 102.3 fL 79.0-92.2 Discordant result compares (BEAKER) (test cilp=235) with previous; clinical correlation requires. MEAN CORPUSCULAR HEMOGLOBIN 31.8 pg 25.7-32.2 (BEAKER) (test ueva=799) MEAN CORPUSCULAR HEMOGLOBIN 31.1 GM/DL 32.3-36.5 CONC (BEAKER) (test knks=844) RED CELL DISTRIBUTION WIDTH 18.0 % 11.6-14.4 (BEAKER) (test pfht=930) PLATELET COUNT (BEAKER) (test 172 K/CU MM 150-450 tmel=658) MEAN PLATELET VOLUME (BEAKER) 10.9 fL 9.4-12.4 (test mxva=932) NUCLEATED RED BLOOD CELLS 0 /100 WBC 0-0 (BEAKER) (test wphi=710) NEUTROPHILS RELATIVE PERCENT 75 % (BEAKER) (test mwll=906) LYMPHOCYTES RELATIVE PERCENT 8 % (BEAKER) (test qarn=012) MONOCYTES RELATIVE PERCENT 10 % (BEAKER) (test zwdp=832) EOSINOPHILS RELATIVE PERCENT 5 % (BEAKER) (test jdqq=264) BASOPHILS RELATIVE PERCENT 1 % (BEAKER) (test kpbw=274) NEUTROPHILS ABSOLUTE COUNT 5.46 K/ L 1.78-5.38 (BEAKER) (test frxb=616) LYMPHOCYTES ABSOLUTE COUNT 0.59 K/ L 1.32-3.57 (BEAKER) (test yvwk=426) MONOCYTES ABSOLUTE COUNT 0.75 K/ L 0.30-0.82 (BEAKER) (test atuc=360) EOSINOPHILS ABSOLUTE COUNT 0.33 K/ L 0.04-0.54 (BEAKER) (test hhxp=808) BASOPHILS ABSOLUTE COUNT 0.04 K/ L 0.01-0.08 (BEAKER) (test yngt=697) IMMATURE 1 % 0-1 GRANULOCYTES-RELATIVE PERCENT (BEAKER) (test damb=2197) POCT-GLUCOSE [id number] 22:02:00 Test Item Value Reference Range Comments POC-GLUCOSE METER (BEAKER) 194 mg/dL 70-[address] [facility] [address] (test kefv=5171) [facility] [address] U/S, EXTREMITY (NON-VASCULAR), LEFT, [id number] 20:03:00Reason for exam:- >left upper arm around [...] suggest abscess or hematoma. Signed: Bridget Del Rosarioort Verified Date/Time: 08/21/2018 20:03:43 Reading Location: [facility] [id number] Consult Reading Room POCT-GLUCOSE [id number] 17:27:00 Test Item Value Reference Range Comments POC-GLUCOSE METER (BEAKER) 202 mg/dL 70-110 TESTED AT [address] (test eosg=3614) [place] [address] POCT-GLUCOSE [id number] 11:50:00 Test Item Value Reference Range Comments POC-GLUCOSE METER (BEAKER) 130 mg/dL 70-110 TESTED AT [address] (test mins=7875) [place] [address] RAD, CHEST, 1 VIEW, NON [id number] 08:49:00Reason for exam:->effusion vs atelectasisShould this be [...] MDReport Verified Date/Time: 08/21/2018 08:49:32 Reading Location: [facility] Reading Room POCT-GLUCOSE [id number] 08: 09:00 Test Item Value Reference Range Comments POC-GLUCOSE METER (BEAKER) 221 mg/dL 70-110 TESTED AT [address] (test jbmw=2956) [place] [address] COMPREHENSIVE METABOLIC [id number] 02:27:00 Test Item Value Reference Range Comments TOTAL PROTEIN (BEAKER) 5.5 gm/dL 6.0-8.3 Specimen slightly (test mtzl=697) hemolyzed ALBUMIN (BEAKER) (test 2.7 g/dL 3.5-5.0 Specimen slightly qyae=8511) hemolyzed ALKALINE PHOSPHATASE 156 U/L 40-150 (BEAKER) (test cjih=274) BILIRUBIN TOTAL (BEAKER) 1.2 mg/dL 0.2-1.2 Specimen slightly (test cwaq=896) hemolyzed SODIUM (BEAKER) (test 135 meq/L 136-145 yfjl=335) POTASSIUM (BEAKER) (test 4.7 meq/L 3.5-5.1 Specimen slightly adhl=019) hemolyzed CHLORIDE (BEAKER) (test 98 meq/L 98-107 wqgy=345) CO2 (BEAKER) (test 28 meq/L 22-29 snoz=642) BLOOD UREA NITROGEN 40 mg/dL 7-21 (BEAKER) (test yrwf=412) CREATININE (BEAKER) (test 6.42 mg/dL 0.57-1.25 Specimen slightly ypae=186) hemolyzed GLUCOSE RANDOM (BEAKER) 228 mg/dL 70-105 (test byfc=985) CALCIUM (BEAKER) (test 8.6 mg/dL 8.4-10.2 xxhu=993) AST (SGOT) (BEAKER) (test 38 U/L 5-34 Specimen slightly azvt=801) hemolyzed ALT (SGPT) (BEAKER) (test 28 U/L 6-55 Specimen slightly ypnc=176) hemolyzed EGFR (BEAKER) (test 9 mL/min/1.73 sq m ESTIMATED GFR IS NOT kxak=5817) ACCURATE CREATININE CLEARANCE IN PREDICTING GLOMERULAR FILTRATION RATE. ESTIMATED GFR IS NOT APPLICABLE FOR DIALYSIS PATIENTS. [id number] 02:19:00 Test Item Value Reference Range Comments PROTIME (BEAKER) (test frpa=977) 19.6 seconds 11.9-14.2 INR (BEAKER) (test ndws=890) 1.8 <=5.9 PARTIAL THROMBOPLASTIN TIME (BEAKER) (test 74.9 seconds 22.5-36.0 bwsm=127) Effective 07/29/2018: PT Reference Range ChangeNew: 11.9-14.2 Previous: 11.7- 14.7RECOMMENDED COUMADIN/WARFARIN INR THERAPY RANGESSTANDARD DOSE: 2.0-3.0 Includes: PROPHYLAXIS for venous thrombosis, systemic embolization; TREATMENT for venous thrombosis and/or pulmonary embolus.HIGH RISK: Target INR is2.5-3.5 for patients wiht mechanical heart valves.[id number] 02:15:00 Test Item Value Reference Range Comments MAGNESIUM (BEAKER) (test 2.3 mg/dL 1.6-2.6 Specimen slightly hemolyzed hiff=107) [id number] 02:15:00 Test Item Value Reference Range Comments PHOSPHORUS (BEAKER) (test 4.2 mg/dL 2.3-4.7 Specimen slightly hemolyzed qbie=738) CBC W/PLT COUNT & AUTO [id number] 01:56:00 Test Item Value Reference Range Comments WHITE BLOOD CELL COUNT (BEAKER) (test wvfj=546) 7.5 K/ L 3.5-10.5 RED BLOOD CELL COUNT (BEAKER) (test elgf=519) 2.55 M/ L 4.63-6.08 HEMOGLOBIN (BEAKER) (test qksk=444) 8.2 GM/DL 13.7-17.5 HEMATOCRIT (BEAKER) (test pslk=138) 24.9 % 40.1-51.0 MEAN CORPUSCULAR VOLUME (BEAKER) (test pryi=270) 97.6 fL 79.0-92.2 MEAN CORPUSCULAR HEMOGLOBIN (BEAKER) (test 32.2 pg 25.7-32.2 qmso=209) MEAN CORPUSCULAR HEMOGLOBIN CONC (BEAKER) (test 32.9 GM/DL 32.3-36.5 rywo=577) RED CELL DISTRIBUTION WIDTH (BEAKER) (test 17.7 % 11.6-14.4 nrvf=202) PLATELET COUNT (BEAKER) (test aaks=342) 171 K/CU MM 150-450 MEAN PLATELET VOLUME (BEAKER) (test miqz=765) 10.5 fL 9.4-12.4 NUCLEATED RED BLOOD CELLS (BEAKER) (test 0 /100 WBC 0-0 qnxs=462) NEUTROPHILS RELATIVE PERCENT (BEAKER) (test 71 % qoiw=775) LYMPHOCYTES RELATIVE PERCENT (BEAKER) (test 12 % ugqe=713) MONOCYTES RELATIVE PERCENT (BEAKER) (test 12 % ockd=684) EOSINOPHILS RELATIVE PERCENT (BEAKER) (test 4 % hncu=789) BASOPHILS RELATIVE PERCENT (BEAKER) (test 1 % hahn=373) NEUTROPHILS ABSOLUTE COUNT (BEAKER) (test 5.25 K/ L 1.78-5.38 ktap=771) LYMPHOCYTES ABSOLUTE COUNT (BEAKER) (test 0.90 K/ L 1.32-3.57 kqdk=527) MONOCYTES ABSOLUTE COUNT (BEAKER) (test 0.92 K/ L 0.30-0.82 hppd=553) EOSINOPHILS ABSOLUTE COUNT (BEAKER) (test 0.29 K/ L 0.04-0.54 dkdl=230) BASOPHILS ABSOLUTE COUNT (BEAKER) (test 0.04 K/ L 0.01-0.08 gcqb=461) IMMATURE GRANULOCYTES-RELATIVE PERCENT (BEAKER) 1 % 0-1 (test gmui=1649) POCT-GLUCOSE [id number] 22:44:00 Test Item Value Reference Range Comments POC-GLUCOSE METER (BEAKER) 220 mg/dL 70-110 TESTED AT [address] (test oaax=1092) [place] [id number] POCT-GLUCOSE [id number] 22:44:00 Test Item Value Reference Range Comments POC-GLUCOSE METER (BEAKER) 160 mg/dL 70-110 TESTED AT [address] (test fslf=7803) [place] [address] POCT-GLUCOSE [id number] 18:37:00 Test Item Value Reference Range Comments POC-GLUCOSE METER (BEAKER) 239 mg/dL 70-110 TESTED AT [address] (test uswy=8368) [place] [id number] 13:41:00 Test Item Value Reference Range Comments PARTIAL THROMBOPLASTIN TIME (BEAKER) (test 89.2 seconds 22.5-36.0 jhsj=346) 4 hours after the start of continuous infusion and 4 hours after any rate changePOCT-GLUCOSE [id number] 12:27:00 Test Item Value Reference Range Comments POC-GLUCOSE METER (BEAKER) 147 mg/dL 70-110 TESTED AT [address] (test lfwp=2685) [facility] [address] [id number] 10:01:00 Test Item Value Reference Range Comments PARTIAL THROMBOPLASTIN TIME (BEAKER) (test 84.5 seconds 22.5-36.0 eewj=568) 4 hours after the start of continuous infusion and 4 hours after any rate changePOCT-GLUCOSE [id number] 05:44:00 Test Item Value Reference Range Comments POC-GLUCOSE METER (BEAKER) 190 mg/dL 70-110 TESTED AT [address] (test dtsy=0107) [facility] [address] COMPREHENSIVE METABOLIC [id number] 04:54:00 Test Item Value Reference Range Comments TOTAL PROTEIN (BEAKER) 5.2 gm/dL 6.0-8.3 (test jmki=456) ALBUMIN (BEAKER) (test 2.7 g/dL 3.5-5.0 zscr=7288) ALKALINE PHOSPHATASE 160 U/L 40-150 (BEAKER) (test bhvg=488) BILIRUBIN TOTAL (BEAKER) 1.2 mg/dL 0.2-1.2 (test nmxr=001) SODIUM (BEAKER) (test 139 meq/L 136-145 sdac=663) POTASSIUM (BEAKER) (test 4.5 meq/L 3.5-5.1 qcwj=260) CHLORIDE (BEAKER) (test 104 meq/L 98-107 vfig=625) CO2 (BEAKER) (test 24 meq/L 22-29 uybm=530) BLOOD UREA NITROGEN 32 mg/dL 7-21 (BEAKER) (test tukl=041) CREATININE (BEAKER) (test 5.06 mg/dL 0.57-1.25 plen=352) GLUCOSE RANDOM (BEAKER) 177 mg/dL 70-105 (test czmp=922) CALCIUM (BEAKER) (test 8.9 mg/dL 8.4-10.2 gzrn=231) AST (SGOT) (BEAKER) (test 32 U/L 5-34 lrtl=007) ALT (SGPT) (BEAKER) (test 37 U/L 6-55 zjra=909) EGFR (BEAKER) (test 11 mL/min/1.73 sq m ESTIMATED GFR IS NOT tejz=1181) ACCURATE CREATININE CLEARANCE IN PREDICTING GLOMERULAR FILTRATION RATE. ESTIMATED GFR IS NOT APPLICABLE FOR DIALYSIS PATIENTS. CBC W/PLT COUNT & AUTO [id number] 04:36:00 Test Item Value Reference Range Comments WHITE BLOOD CELL COUNT (BEAKER) (test czsq=334) 7.4 K/ L 3.5-10.5 RED BLOOD CELL COUNT (BEAKER) (test deii=870) 2.65 M/ L 4.63-6.08 HEMOGLOBIN (BEAKER) (test fffe=799) 8.4 GM/DL 13.7-17.5 HEMATOCRIT (BEAKER) (test apcj=129) 25.8 % 40.1-51.0 MEAN CORPUSCULAR VOLUME (BEAKER) (test ojuw=630) 97.4 fL 79.0-92.2 MEAN CORPUSCULAR HEMOGLOBIN (BEAKER) (test 31.7 pg 25.7-32.2 dule=384) MEAN CORPUSCULAR HEMOGLOBIN CONC (BEAKER) (test 32.6 GM/DL 32.3-36.5 cfms=624) RED CELL DISTRIBUTION WIDTH (BEAKER) (test 17.6 % 11.6-14.4 kvcc=423) PLATELET COUNT (BEAKER) (test pdou=884) 155 K/CU MM 150-450 MEAN PLATELET VOLUME (BEAKER) (test psft=972) 11.1 fL 9.4-12.4 NUCLEATED RED BLOOD CELLS (BEAKER) (test 0 /100 WBC 0-0 htba=494) NEUTROPHILS RELATIVE PERCENT (BEAKER) (test 73 % xmzo=086) LYMPHOCYTES RELATIVE PERCENT (BEAKER) (test 9 % gisc=505) MONOCYTES RELATIVE PERCENT (BEAKER) (test 14 % muvy=102) EOSINOPHILS RELATIVE PERCENT (BEAKER) (test 3 % qhry=008) BASOPHILS RELATIVE PERCENT (BEAKER) (test 1 % pytx=053) NEUTROPHILS ABSOLUTE COUNT (BEAKER) (test 5.42 K/ L 1.78-5.38 ndoe=924) LYMPHOCYTES ABSOLUTE COUNT (BEAKER) (test 0.65 K/ L 1.32-3.57 vpzn=900) MONOCYTES ABSOLUTE COUNT (BEAKER) (test 1.00 K/ L 0.30-0.82 wqes=655) EOSINOPHILS ABSOLUTE COUNT (BEAKER) (test 0.22 K/ L 0.04-0.54 kkpu=418) BASOPHILS ABSOLUTE COUNT (BEAKER) (test 0.05 K/ L 0.01-0.08 gcvt=296) IMMATURE GRANULOCYTES-RELATIVE PERCENT (BEAKER) 1 % 0-1 (test xqgc=7818) [id number] 04:33:00 Test Item Value Reference Range Comments PHOSPHORUS (BEAKER) (test bvle=886) 3.7 mg/dL 2.3-4.7 [id number] 04:33:00 Test Item Value Reference Range Comments MAGNESIUM (BEAKER) (test xowf=218) 2.2 mg/dL 1.6-2.6 VANCOMYCIN LEVEL, [id number] 04:33:00 Test Item Value Reference Range Comments VANCOMYCIN RANDOM (BEAKER) (test wmct=597) 9.2 ug/mL Reference Range: No NormalsPT/[id number] 04:23:00 Test Item Value Reference Range Comments PROTIME (BEAKER) (test vguz=556) 17.1 seconds 11.9-14.2 INR (BEAKER) (test wpew=769) 1.5 <=5.9 PARTIAL THROMBOPLASTIN TIME (BEAKER) (test 50.1 seconds 22.5-36.0 ofsv=956) Effective 07/29/2018: PT Reference Range ChangeNew: 11.9-14.2 Previous: 11.7- 14.7RECOMMENDED COUMADIN/WARFARIN INR THERAPY RANGESSTANDARD DOSE: 2.0-3.0 Includes: PROPHYLAXIS for venous thrombosis, systemic embolization; TREATMENT for venous thrombosis and/or pulmonary embolus.HIGH RISK: Target INR is2.5-3.5 for patients wiht mechanical heart valves.RAD, CHEST, 1 VIEW, NON [id number] 03:59:00Reason for exam:->effusion vs atelectasisShould this [...] tip overlies the azygos arch/SVC. Signed: Moreno [place] Verified Date/Time: 08/20/2018 03:59: 43 Reading Location: [address] Reading Room [id number] 00:43:00 Test Item Value Reference Range Comments PARTIAL THROMBOPLASTIN TIME (BEAKER) (test 46.3 seconds 22.5-36.0 ivzw=337) 4 hours after the start of continuous infusion and 4 hours after any rate changePOCT-GLUCOSE [id number] 00:10:00 Test Item Value Reference Range Comments POC-GLUCOSE METER (BEAKER) 169 mg/dL 70-[address] [facility] [address] [place] [address] (test wmmy=7253) [facility] [address] BLOOD CULTURE IDENTIFICATION [id number] 23:35:00 Test Item Value Reference Range Comments LISTERIA MONOCYTOGENES Not detected Not detected (test sjfj=9547229) STAPHYLOCOCCUS (test Detected Not detected hjyl=6274169) STAPHYLOCOCCUS AUREUS Detected Not detected Methicillin-susceptible S. (test clxb=4690259) aureus (MSSA)First-line therapy: Cefazolin or Oxacillin (Oxacillin preferred if VICE PRESIDENT EDUCATION involvement) ID CONSULTATION REQUIREDStaphylococcus aureus DETECTEDMecA NOT DETECTED Reference Range: Not Detected STREPTOCOCCUS (test Not detected Not detected iyax=1767213) STREPTOCOCCUS AGALACTIAE Not detected Not detected (GROUP B) (test bsrt=0816224) STREPTOCOCCUS PNEUMONIAE Not detected Not detected (test fqhb=4784555) STREPTOCOCCUS PYOGENES Not detected Not detected (GROUP A) (test txqc=6929478) ACINETOBACTER BAUMANNII Not detected Not detected (test vuwi=2602837) HAEMOPHILUS INFLUENZAE Not detected Not detected (test wiim=0781400) NEISSERIA MENINGITIDIS Not detected Not detected (test lziv=0346808) ENTEROBACTERIACEAE (test Not detected Not detected kuih=2893254) ENTEROBACTER CLOACOE Not detected Not detected COMPLEX (test npey=3722566) KLEBSIELLA OXYTOCA (test Not detected Not detected bltc=0606638) KLEBSIELLA PNEUMONIAE Not detected Not detected (test kqoo=0587) PROTEUS (test Not detected Not detected czld=3035890) SERRATIA MARCESCENS (test Not detected Not detected qpso=4565928) MITA ALBICANS (test Not detected Not detected czpv=9892491) MITA GLABRATA (test Not detected Not detected zorj=6599053) MITA KRUSEI (test Not detected Not detected honk=8798591) MITA PARAPSILOSIS (test Not detected Not detected kdej=9439973) MITA TROPICALIS (test Not detected Not detected smyj=3368167) ESCHERICHIA COLI (test Not detected Not detected zqyf=6964319) METHICILLIN-RESISTANCE Not detected Not detected GENE (test pcnc=3618540) VANCOMYCIN-RESISTANCE GENE Not detected (test vana=0349172) CARBAPENEM-RESISTANCE GENE Not detected (test ujdd=7861232) ENTEROCOCCUS-BEAKER (test Not detected Not detected clrj=9291858) PSEUDOMONAS Not detected Not detected AERUGINOSA-BEAKER (test xipj=5615079) Other bacteria and resistance markers not targeted by this PCR panel cannot be excluded; therefore clinical correlation and follow up of serology, culture results, and other molecular studies is required. The results are not intended to be used as the sole means for clinical diagnosis or patient management decisions. This sample was tested at the [facility] using the VISUAL [employer]ERT Blood Culture ID Panel. It is FDA cleared and has been verified and approved by the [facility] for clinical use. This laboratory is CLIA-certified and College ofAmerican Pathologists (CAP)-accredited to perform high complexity testing.[id number] 21:01:00 Test Item Value Reference Range Comments PARTIAL THROMBOPLASTIN TIME (BEAKER) (test 43.2 seconds 22.5-36.0 rqkp=136) 4 hours after the start of continuous infusion and 4 hours after any rate changePOCT-GLUCOSE [id number] 17:58:00 Test Item Value Reference Range Comments POC-GLUCOSE METER ([facility]) 127 mg/dL 70-[address] [facility] [address] (test dkmq=0202) [facility] [address] [id number] 15:30:00 Test Item Value Reference Range Comments PARTIAL THROMBOPLASTIN TIME (BEAKER) (test 33.1 seconds 22.5-36.0 caeu=472) Draw baseline aPTT prior to infusionCBC (HEMOGRAM ONLY)2018-08-19 15:22:00 Test Item Value Reference Range Comments WHITE BLOOD CELL COUNT (BEAKER) (test wgzn=859) 6.9 K/ L 3.5-10.5 RED BLOOD CELL COUNT (BEAKER) (test rmah=561) 2.87 M/ L 4.63-6.08 HEMOGLOBIN (BEAKER) (test tvsd=418) 9.0 GM/DL 13.7-17.5 HEMATOCRIT (BEAKER) (test fnws=441) 27.1 % 40.1-51.0 MEAN CORPUSCULAR VOLUME (BEAKER) (test jxzj=615) 94.4 fL 79.0-92.2 MEAN CORPUSCULAR HEMOGLOBIN (BEAKER) (test 31.4 pg 25.7-32.2 exlb=070) MEAN CORPUSCULAR HEMOGLOBIN CONC (BEAKER) (test 33.2 GM/DL 32.3-36.5 pirf=760) RED CELL DISTRIBUTION WIDTH (BEAKER) (test 17.2 % 11.6-14.4 wxno=191) PLATELET COUNT (BEAKER) (test odkp=875) 145 K/CU MM 150-450 MEAN PLATELET VOLUME (BEAKER) (test qcie=786) 10.2 fL 9.4-12.4 NUCLEATED RED BLOOD CELLS (BEAKER) (test 0 /100 WBC 0-0 qdax=495) JHOAN TUNNELED CATHETER [id number] 14:44:00Reason for exam:->ESRD requiring dialysis and malfuctioning [...] Mona Wick Verified Date/Time: 14:44:44 Reading Location: [place] [address] Angio Body Reading Room POCT-GLUCOSE [id number] 11:54:00 Test Item Value Reference Range Comments POC-GLUCOSE METER (BEAKER) 165 mg/dL 70-110 TESTED AT [address] (test yqan=6071) [facility] [address] RAD, CHEST, 1 VIEW, NON [id number] 08:21:00Reason for exam:->effusion vs atelectasisShould this be performed at the bedside?->YesFINAL REPORT Comparison: 08/18/2018 TECHNIQUE: Single view of the chest FINDINGS: There is mild vascular congestion. There may be trace pleural effusions. No gross new lung parenchymal changes. Cardiac silhouette is enlarged. A stent projects over the left upper chest. Signed: Franklin Juan MDRabhijitort Verified Date/Time: 08/19/2018 08:21:06 Reading Location: [facility] Radiology ReadingRoom Electronically signed by: FRANKLIN JUAN M.D. on 08/19 08:21 AMPOCT-GLUCOSE [id number] 06:30:00 Test Item Value Reference Range Comments POC-GLUCOSE METER (BEAKER) 162 mg/dL 70-[address] [facility] [address] [facility] (test xoui=5831) [facility] [address] POCT-GLUCOSE [id number] 05:50:00 Test Item Value Reference Range Comments POC-GLUCOSE METER (BEAKER) 157 mg/dL 70-110 TESTED AT [place] [id number] [facility] (test ueqz=2253) [facility] [address] COMPREHENSIVE METABOLIC [id number] 05:23:00 Test Item Value Reference Range Comments TOTAL PROTEIN (BEAKER) 5.4 gm/dL 6.0-8.3 (test uguw=411) ALBUMIN (BEAKER) (test 2.8 g/dL 3.5-5.0 iyrn=1875) ALKALINE PHOSPHATASE 172 U/L 40-150 (BEAKER) (test tkfz=853) BILIRUBIN TOTAL (BEAKER) 1.1 mg/dL 0.2-1.2 (test wvsj=998) SODIUM (BEAKER) (test 129 meq/L 136-145 xalc=011) POTASSIUM (BEAKER) (test 4.7 meq/L 3.5-5.1 sytm=895) CHLORIDE (BEAKER) (test 96 meq/L 98-107 izhx=865) CO2 (BEAKER) (test 24 meq/L 22-29 dofb=736) BLOOD UREA NITROGEN 67 mg/dL 7-21 (BEAKER) (test lupu=332) CREATININE (BEAKER) (test 8.22 mg/dL 0.57-1.25 fpph=960) GLUCOSE RANDOM (BEAKER) 156 mg/dL 70-105 (test jawu=583) CALCIUM (BEAKER) (test 8.5 mg/dL 8.4-10.2 olej=224) AST (SGOT) (BEAKER) (test 29 U/L 5-34 hiie=771) ALT (SGPT) (BEAKER) (test 36 U/L 6-55 gkud=511) EGFR (BEAKER) (test 6 mL/min/1.73 sq m ESTIMATED GFR IS NOT abqb=1352) ACCURATE CREATININE CLEARANCE IN PREDICTING GLOMERULAR FILTRATION RATE. ESTIMATED GFR IS NOT APPLICABLE FOR DIALYSIS PATIENTS. [id number] 05:22:00 Test Item Value Reference Range Comments PHOSPHORUS (BEAKER) (test xvok=425) 4.7 mg/dL 2.3-4.7 [id number] 05:22:00 Test Item Value Reference Range Comments MAGNESIUM (BEAKER) (test snaq=462) 2.4 mg/dL 1.6-2.6 [id number] 05:19:00 Test Item Value Reference Range Comments PROTIME (BEAKER) (test logm=106) 15.3 seconds 11.9-14.2 INR (BEAKER) (test itev=150) 1.3 <=5.9 PARTIAL THROMBOPLASTIN TIME (BEAKER) (test 34.9 seconds 22.5-36.0 hurf=413) Effective 07/29/2018: PT Reference Range ChangeNew: 11.9-14.2 Previous: 11.7- 14.7RECOMMENDED COUMADIN/WARFARIN INR THERAPY RANGESSTANDARD DOSE: 2.0-3.0 Includes: PROPHYLAXIS for venous thrombosis, systemic embolization; TREATMENT for venous thrombosis and/or pulmonary embolus.HIGH RISK: Target INR is2.5-3.5 for patients wiht mechanical heart valves.[id number] 05:02:00 Test Item Value Reference Range Comments AMMONIA (BEAKER) (test ozgb=277) 35 mol/L 18-72 CBC W/PLT COUNT & AUTO [id number] 04:55:00 Test Item Value Reference Range Comments WHITE BLOOD CELL COUNT (BEAKER) (test rudb=261) 7.9 K/ L 3.5-10.5 RED BLOOD CELL COUNT (BEAKER) (test tjyo=918) 2.84 M/ L 4.63-6.08 HEMOGLOBIN (BEAKER) (test ntna=024) 8.9 GM/DL 13.7-17.5 HEMATOCRIT (BEAKER) (test msjj=586) 27.6 % 40.1-51.0 MEAN CORPUSCULAR VOLUME (BEAKER) (test imwb=843) 97.2 fL 79.0-92.2 MEAN CORPUSCULAR HEMOGLOBIN (BEAKER) (test 31.3 pg 25.7-32.2 qgcw=957) MEAN CORPUSCULAR HEMOGLOBIN CONC (BEAKER) (test 32.2 GM/DL 32.3-36.5 jghs=910) RED CELL DISTRIBUTION WIDTH (BEAKER) (test 17.6 % 11.6-14.4 kbsf=180) PLATELET COUNT (BEAKER) (test uefj=240) 169 K/CU MM 150-450 MEAN PLATELET VOLUME (BEAKER) (test hbwv=966) 11.0 fL 9.4-12.4 NUCLEATED RED BLOOD CELLS (BEAKER) (test 0 /100 WBC 0-0 aala=293) NEUTROPHILS RELATIVE PERCENT (BEAKER) (test 70 % bwdp=869) LYMPHOCYTES RELATIVE PERCENT (BEAKER) (test 10 % sbnm=405) MONOCYTES RELATIVE PERCENT (BEAKER) (test 13 % vuvp=502) EOSINOPHILS RELATIVE PERCENT (BEAKER) (test 5 % onqd=176) BASOPHILS RELATIVE PERCENT (BEAKER) (test 1 % mmpi=051) NEUTROPHILS ABSOLUTE COUNT (BEAKER) (test 5.50 K/ L 1.78-5.38 tlpt=761) LYMPHOCYTES ABSOLUTE COUNT (BEAKER) (test 0.82 K/ L 1.32-3.57 msoq=667) MONOCYTES ABSOLUTE COUNT (BEAKER) (test 1.06 K/ L 0.30-0.82 qkmb=883) EOSINOPHILS ABSOLUTE COUNT (BEAKER) (test 0.36 K/ L 0.04-0.54 gepa=240) BASOPHILS ABSOLUTE COUNT (BEAKER) (test 0.08 K/ L 0.01-0.08 namw=572) IMMATURE GRANULOCYTES-RELATIVE PERCENT (BEAKER) 1 % 0-1 (test kgyk=0685) POCT-GLUCOSE [id number] 21:46:00 Test Item Value Reference Range Comments POC-GLUCOSE METER (BEAKER) 167 mg/dL 70-[address] [facility] [address] [facility] (test ygme=9238) [facility] [address] BASIC METABOLIC [id number] 19:16:00 Test Item Value Reference Range Comments SODIUM (BEAKER) (test 132 meq/L 136-145 qlgs=476) POTASSIUM (BEAKER) (test 4.7 meq/L 3.5-5.1 flbg=826) CHLORIDE (BEAKER) (test 97 meq/L 98-107 txba=153) CO2 (BEAKER) (test 24 meq/L 22-29 ghzb=713) BLOOD UREA NITROGEN 61 mg/dL 7-21 (BEAKER) (test dvul=368) CREATININE (BEAKER) (test 7.73 mg/dL 0.57-1.25 ddmt=208) GLUCOSE RANDOM (BEAKER) 144 mg/dL 70-105 (test qtgi=083) CALCIUM (BEAKER) (test 9.2 mg/dL 8.4-10.2 vpah=819) EGFR (BEAKER) (test 7 mL/min/1.73 sq m ESTIMATED GFR IS NOT tvhc=1917) ACCURATE CREATININE CLEARANCE IN PREDICTING GLOMERULAR FILTRATION RATE. ESTIMATED GFR IS NOT APPLICABLE FOR DIALYSIS PATIENTS. POCT-GLUCOSE [id number] 16:57:00 Test Item Value Reference Range Comments POC-GLUCOSE METER (BEAKER) 118 mg/dL 70-110 TESTED AT [address] (test dqvk=1007) [facility] [id number] RAD, CHEST, 1 VIEW, NON [id number] 16:42:00Post-intubationReason for exam:-& gt;SOBShould this be performed [...] cardiomegaly. No acute cardiopulmonary abnormalities. Signed: Gosia Nickeport Verified Date/Time: 08/18/2018 16:42:09 Reading Location: [address] Radiology Reading Room HEMOGLOBIN [id number] 13:45:00 Test Item Value Reference Range Comments HEMOGLOBIN A1C (BEAKER) (test yrtm=515) 5.5 % 4.3-6.1 COMPREHENSIVE METABOLIC [id number] 13:03:00 Test Item Value Reference Range Comments TOTAL PROTEIN (BEAKER) 6.9 gm/dL 6.0-8.3 Specimen moderately (test bwmv=963) hemolyzed ALBUMIN (BEAKER) (test 3.2 g/dL 3.5-5.0 Specimen moderately qncn=7383) hemolyzed ALKALINE PHOSPHATASE 149 U/L 40-150 (BEAKER) (test ixmw=749) BILIRUBIN TOTAL (BEAKER) 1.2 mg/dL 0.2-1.2 Specimen moderately (test qefd=114) hemolyzed SODIUM (BEAKER) (test 130 meq/L 136-145 hoym=976) POTASSIUM (BEAKER) (test 5.0 meq/L 3.5-5.1 Specimen moderately tghr=140) hemolyzed CHLORIDE (BEAKER) (test 96 meq/L 98-107 aclz=161) CO2 (BEAKER) (test 25 meq/L 22-29 cveg=269) BLOOD UREA NITROGEN 57 mg/dL 7-21 (BEAKER) (test cjjm=645) CREATININE (BEAKER) (test 7.51 mg/dL 0.57-1.25 Specimen moderately bpai=959) hemolyzed GLUCOSE RANDOM (BEAKER) 91 mg/dL 70-105 (test onvi=337) CALCIUM (BEAKER) (test 9.2 mg/dL 8.4-10.2 zddm=787) AST (SGOT) (BEAKER) (test 46 U/L 5-34 Specimen moderately rtkk=810) hemolyzed ALT (SGPT) (BEAKER) (test 46 U/L 6-55 Specimen moderately actv=475) hemolyzed EGFR (BEAKER) (test 7 mL/min/1.73 sq m ESTIMATED GFR IS NOT tkcs=5450) ACCURATE CREATININE CLEARANCE IN PREDICTING GLOMERULAR FILTRATION RATE. ESTIMATED GFR IS NOT APPLICABLE FOR DIALYSIS PATIENTS. [id number] 12:59:00 Test Item Value Reference Range Comments MAGNESIUM (BEAKER) (test 2.8 mg/dL 1.6-2.6 Specimen moderately hemolyzed yhwk=953) [id number] 12:59:00 Test Item Value Reference Range Comments PHOSPHORUS (BEAKER) (test 4.2 mg/dL 2.3-4.7 Specimen moderately hemolyzed vvso=954) PT/[id number] 12:42:00 Test Item Value Reference Range Comments PROTIME (BEAKER) (test uiso=815) 19.1 seconds 11.9-14.2 INR (BEAKER) (test fjvf=843) 1.7 <=5.9 PARTIAL THROMBOPLASTIN TIME (BEAKER) (test 36.7 seconds 22.5-36.0 cgkj=979) Effective 07/29/2018: PT Reference Range ChangeNew: 11.9-14.2 Previous: 11.7- 14.7RECOMMENDED COUMADIN/WARFARIN INR THERAPY RANGESSTANDARD DOSE: 2.0-3.0 Includes: PROPHYLAXIS for venous thrombosis, systemic embolization; TREATMENT for venous thrombosis and/or pulmonary embolus.HIGH RISK: Target INR is2.5-3.5 for patients wiht mechanical heart valves.PROTHROMBIN [id number] 12:41: 00 Test Item Value Reference Range Comments PROTIME (BEAKER) (test ndxp=942) 19.1 seconds 11.9-14.2 INR (BEAKER) (test ktpd=615) 1.7 <=5.9 Effective 07/29/2018: PT Reference Range ChangeNew: 11.9-14.2 Previous: 11.7- 14.7RECOMMENDED COUMADIN/WARFARIN INR THERAPY RANGESSTANDARD DOSE: 2.0-3.0 Includes: PROPHYLAXIS for venous thrombosis, systemic embolization; TREATMENT for venous thrombosis and/or pulmonary embolus.HIGH RISK: Target INR is2.5-3.5 for patients wiht mechanical heart valves.CBC W/PLT COUNT & AUTO [id number] 12:24:00 Test Item Value Reference Range Comments WHITE BLOOD CELL COUNT (BEAKER) (test aoud=995) 9.1 K/ L 3.5-10.5 RED BLOOD CELL COUNT (BEAKER) (test anya=572) 3.40 M/ L 4.63-6.08 HEMOGLOBIN (BEAKER) (test gwoc=803) 10.6 GM/DL 13.7-17.5 HEMATOCRIT (BEAKER) (test blan=577) 33.5 % 40.1-51.0 MEAN CORPUSCULAR VOLUME (BEAKER) (test zhdn=776) 98.5 fL 79.0-92.2 MEAN CORPUSCULAR HEMOGLOBIN (BEAKER) (test 31.2 pg 25.7-32.2 buou=605) MEAN CORPUSCULAR HEMOGLOBIN CONC (BEAKER) (test 31.6 GM/DL 32.3-36.5 gdsj=539) RED CELL DISTRIBUTION WIDTH (BEAKER) (test 17.4 % 11.6-14.4 fzjk=838) PLATELET COUNT (BEAKER) (test wltm=581) 200 K/CU MM 150-450 MEAN PLATELET VOLUME (BEAKER) (test pwlq=271) 11.0 fL 9.4-12.4 NUCLEATED RED BLOOD CELLS (BEAKER) (test 0 /100 WBC 0-0 offz=553) NEUTROPHILS RELATIVE PERCENT (BEAKER) (test 76 % hqvc=370) LYMPHOCYTES RELATIVE PERCENT (BEAKER) (test 9 % ywfs=489) MONOCYTES RELATIVE PERCENT (BEAKER) (test 10 % xhgs=206) EOSINOPHILS RELATIVE PERCENT (BEAKER) (test 4 % hlzw=292) BASOPHILS RELATIVE PERCENT (BEAKER) (test 1 % nupm=235) NEUTROPHILS ABSOLUTE COUNT (BEAKER) (test 6.95 K/ L 1.78-5.38 bjfi=246) LYMPHOCYTES ABSOLUTE COUNT (BEAKER) (test 0.79 K/ L 1.32-3.57 bair=073) MONOCYTES ABSOLUTE COUNT (BEAKER) (test 0.88 K/ L 0.30-0.82 dopf=008) EOSINOPHILS ABSOLUTE COUNT (BEAKER) (test 0.36 K/ L 0.04-0.54 fjsf=871) BASOPHILS ABSOLUTE COUNT (BEAKER) (test 0.07 K/ L 0.01-0.08 rcam=545) IMMATURE GRANULOCYTES-RELATIVE PERCENT (BEAKER) 1 % 0-1 (test xcdr=5037) POCT-GLUCOSE [id number] 12:56:00 Test Item Value Reference Range Comments POC-GLUCOSE METER (BEAKER) 131 mg/dL 70-110 TESTED AT [address] (test lrhi=1078) [place] [address] POCT-GLUCOSE [id number] 07:42:00 Test Item Value Reference Range Comments POC-GLUCOSE METER (BEAKER) 132 mg/dL 70-110 TESTED AT [address] (test tpdi=9737) [place] [address] BASIC METABOLIC [id number] 06:40:00 Test Item Value Reference Range Comments SODIUM (BEAKER) (test 137 meq/L 136-145 tpyr=527) POTASSIUM (BEAKER) (test 4.4 meq/L 3.5-5.1 tsen=681) CHLORIDE (BEAKER) (test 99 meq/L 98-107 twss=258) CO2 (BEAKER) (test 29 meq/L 22-29 mlkh=938) BLOOD UREA NITROGEN 31 mg/dL 7-21 (BEAKER) (test mtov=095) CREATININE (BEAKER) (test 5.05 mg/dL 0.57-1.25 cxqy=801) GLUCOSE RANDOM (BEAKER) 146 mg/dL 70-105 (test labh=579) CALCIUM (BEAKER) (test 9.0 mg/dL 8.4-10.2 nxee=833) EGFR (BEAKER) (test 11 mL/min/1.73 sq m ESTIMATED GFR IS NOT udgs=5750) ACCURATE CREATININE CLEARANCE IN PREDICTING GLOMERULAR FILTRATION RATE. ESTIMATED GFR IS NOT APPLICABLE FOR DIALYSIS PATIENTS. [id number] 06:39:00 Test Item Value Reference Range Comments PHOSPHORUS (BEAKER) (test nzmb=038) 3.7 mg/dL 2.3-4.7 [id number] 06:39:00 Test Item Value Reference Range Comments MAGNESIUM (BEAKER) (test quyy=582) 2.6 mg/dL 1.6-2.6 CBC W/PLT COUNT & AUTO [id number] 06:38:00 Test Item Value Reference Range Comments WHITE BLOOD CELL COUNT (BEAKER) (test mrsd=971) 9.4 K/ L 3.5-10.5 RED BLOOD CELL COUNT (BEAKER) (test olsd=006) 3.25 M/ L 4.63-6.08 HEMOGLOBIN (BEAKER) (test yzpf=712) 10.2 GM/DL 13.7-17.5 HEMATOCRIT (BEAKER) (test ldbk=930) 33.0 % 40.1-51.0 MEAN CORPUSCULAR VOLUME (BEAKER) (test rkjk=691) 101.5 fL 79.0-92.2 MEAN CORPUSCULAR HEMOGLOBIN (BEAKER) (test 31.4 pg 25.7-32.2 fblw=957) MEAN CORPUSCULAR HEMOGLOBIN CONC (BEAKER) (test 30.9 GM/DL 32.3-36.5 blyc=994) RED CELL DISTRIBUTION WIDTH (BEAKER) (test 18.5 % 11.6-14.4 aqjt=573) PLATELET COUNT (BEAKER) (test pbmx=788) 202 K/CU MM 150-450 MEAN PLATELET VOLUME (BEAKER) (test xkdt=994) 10.8 fL 9.4-12.4 NUCLEATED RED BLOOD CELLS (BEAKER) (test 0 /100 WBC 0-0 kzhq=894) NEUTROPHILS RELATIVE PERCENT (BEAKER) (test 81 % ljkt=804) LYMPHOCYTES RELATIVE PERCENT (BEAKER) (test 7 % rqnv=516) MONOCYTES RELATIVE PERCENT (BEAKER) (test 8 % rndl=136) EOSINOPHILS RELATIVE PERCENT (BEAKER) (test 2 % fyab=990) BASOPHILS RELATIVE PERCENT (BEAKER) (test 1 % hhnq=411) NEUTROPHILS ABSOLUTE COUNT (BEAKER) (test 7.63 K/ L 1.78-5.38 mpha=177) LYMPHOCYTES ABSOLUTE COUNT (BEAKER) (test 0.70 K/ L 1.32-3.57 isaw=568) MONOCYTES ABSOLUTE COUNT (BEAKER) (test 0.78 K/ L 0.30-0.82 bhve=658) EOSINOPHILS ABSOLUTE COUNT (BEAKER) (test 0.18 K/ L 0.04-0.54 dxmq=889) BASOPHILS ABSOLUTE COUNT (BEAKER) (test 0.06 K/ L 0.01-0.08 chum=190) IMMATURE GRANULOCYTES-RELATIVE PERCENT (BEAKER) 1 % 0-1 (test makb=8747) PROTHROMBIN [id number] 06:25:00 Test Item Value Reference Range Comments PROTIME (BEAKER) (test ntjv=323) 18.4 seconds 11.9-14.2 INR (BEAKER) (test lumt=169) 1.6 <=5.9 Effective 07/29/2018: PT Reference Range ChangeNew: 11.9-14.2 Previous: 11.7- 14.7RECOMMENDED COUMADIN/WARFARIN INR THERAPY RANGESSTANDARD DOSE: 2.0-3.0 Includes: PROPHYLAXIS for venous thrombosis, systemic embolization; TREATMENT for venous thrombosis and/or pulmonary embolus.HIGH RISK: Target INR is2.5-3.5 for patients wiht mechanical heart valves.While on warfarin.POCT-GLUCOSE [id number] 21:17:00 Test Item Value Reference Range Comments POC-GLUCOSE METER (BEAKER) 143 mg/dL 70-[address] [facility] [address] [facility] (test iibf=7222) [facility] [address] POCT-GLUCOSE [id number] 18:22:00 Test Item Value Reference Range Comments POC-GLUCOSE METER (BEAKER) 67 mg/dL 70-110 TESTED AT [place] [id number] [facility] (test xoax=7563) [facility] [address] POCT-GLUCOSE [id number] 12:29:00 Test Item Value Reference Range Comments POC-GLUCOSE METER (BEAKER) 154 mg/dL 70-110 TESTED AT [address] (test npdi=3505) [facility] [address] POCT-GLUCOSE [id number] 07:50:00 Test Item Value Reference Range Comments POC-GLUCOSE METER (BEAKER) 107 mg/dL 70-110 TESTED AT [address] (test kbqv=3980) [facility] [address] BASIC METABOLIC [id number] 07:03:00 Test Item Value Reference Range Comments SODIUM (BEAKER) (test 130 meq/L 136-145 zyxz=318) POTASSIUM (BEAKER) (test 4.5 meq/L 3.5-5.1 rhqv=207) CHLORIDE (BEAKER) (test 95 meq/L 98-107 yyxs=171) CO2 (BEAKER) (test 25 meq/L 22-29 lvkb=564) BLOOD UREA NITROGEN 45 mg/dL 7-21 (BEAKER) (test uxwz=590) CREATININE (BEAKER) (test 6.26 mg/dL 0.57-1.25 oxwq=141) GLUCOSE RANDOM (BEAKER) 100 mg/dL 70-105 (test nude=350) CALCIUM (BEAKER) (test 9.2 mg/dL 8.4-10.2 ymvj=146) EGFR (BEAKER) (test 9 mL/min/1.73 sq m ESTIMATED GFR IS NOT cmft=7536) ACCURATE CREATININE CLEARANCE IN PREDICTING GLOMERULAR FILTRATION RATE. ESTIMATED GFR IS NOT APPLICABLE FOR DIALYSIS PATIENTS. [id number] 07:01:00 Test Item Value Reference Range Comments PHOSPHORUS (BEAKER) (test jryr=527) 4.4 mg/dL 2.3-4.7 [id number] 07:01:00 Test Item Value Reference Range Comments MAGNESIUM (BEAKER) (test dnfu=462) 2.8 mg/dL 1.6-2.6 [id number] 06:43:00 Test Item Value Reference Range Comments PARTIAL THROMBOPLASTIN TIME (BEAKER) (test 89.2 seconds 22.5-36.0 sfzf=110) 4 hours after the start of continuous infusion and 4 hours after any rate changeWhile on warfarin.PROTHROMBIN [id number] 06:41:00 Test Item Value Reference Range Comments PROTIME (BEAKER) (test qhxh=052) 21.2 seconds 11.9-14.2 INR (BEAKER) (test xqzt=818) 2.0 <=5.9 Effective 07/29/2018: PT Reference Range ChangeNew: 11.9-14.2 Previous: 11.7- 14.7RECOMMENDED COUMADIN/WARFARIN INR THERAPY RANGESSTANDARD DOSE: 2.0-3.0 Includes: PROPHYLAXIS for venous thrombosis, systemic embolization; TREATMENT for venous thrombosis and/or pulmonary embolus.HIGH RISK: Target INR is2.5-3.5 for patients wiht mechanical heart valves.4 hours after the start of continuous infusion and4 hours after any rate changeWhile on warfarin.CBC W/PLT COUNT &amp ; AUTO [id number] 06:38:00 Test Item Value Reference Range Comments WHITE BLOOD CELL COUNT (BEAKER) (test yatt=039) 10.7 K/ L 3.5-10.5 RED BLOOD CELL COUNT (BEAKER) (test njby=641) 3.21 M/ L 4.63-6.08 HEMOGLOBIN (BEAKER) (test mctn=511) 10.1 GM/DL 13.7-17.5 HEMATOCRIT (BEAKER) (test tafn=738) 31.9 % 40.1-51.0 MEAN CORPUSCULAR VOLUME (BEAKER) (test dlqs=511) 99.4 fL 79.0-92.2 MEAN CORPUSCULAR HEMOGLOBIN (BEAKER) (test 31.5 pg 25.7-32.2 wzjt=429) MEAN CORPUSCULAR HEMOGLOBIN CONC (BEAKER) (test 31.7 GM/DL 32.3-36.5 ncna=333) RED CELL DISTRIBUTION WIDTH (BEAKER) (test 18.2 % 11.6-14.4 ugbm=455) PLATELET COUNT (BEAKER) (test kcjq=501) 205 K/CU MM 150-450 MEAN PLATELET VOLUME (BEAKER) (test baeq=251) 11.0 fL 9.4-12.4 NUCLEATED RED BLOOD CELLS (BEAKER) (test 0 /100 WBC 0-0 lhwq=723) NEUTROPHILS RELATIVE PERCENT (BEAKER) (test 81 % npsc=291) LYMPHOCYTES RELATIVE PERCENT (BEAKER) (test 8 % lzfs=202) MONOCYTES RELATIVE PERCENT (BEAKER) (test 8 % niue=995) EOSINOPHILS RELATIVE PERCENT (BEAKER) (test 2 % gogt=078) BASOPHILS RELATIVE PERCENT (BEAKER) (test 1 % prsd=789) NEUTROPHILS ABSOLUTE COUNT (BEAKER) (test 8.71 K/ L 1.78-5.38 kesu=535) LYMPHOCYTES ABSOLUTE COUNT (BEAKER) (test 0.83 K/ L 1.32-3.57 ahxg=800) MONOCYTES ABSOLUTE COUNT (BEAKER) (test 0.84 K/ L 0.30-0.82 zpej=317) EOSINOPHILS ABSOLUTE COUNT (BEAKER) (test 0.20 K/ L 0.04-0.54 qysz=843) BASOPHILS ABSOLUTE COUNT (BEAKER) (test 0.05 K/ L 0.01-0.08 ptbp=562) IMMATURE GRANULOCYTES-RELATIVE PERCENT (BEAKER) 1 % 0-1 (test oitk=4011) POCT-GLUCOSE [id number] 21:28:00 Test Item Value Reference Range Comments POC-GLUCOSE METER (BEAKER) 176 mg/dL 70-110 TESTED AT [address] (test yote=0350) [place] [id number] POCT-GLUCOSE [id number] 17:49:00 Test Item Value Reference Range Comments POC-GLUCOSE METER (BEAKER) 131 mg/dL 70-110 TESTED AT [address] (test jxkm=3234) [place] [id number] POCT-GLUCOSE [id number] 12:14:00 Test Item Value Reference Range Comments POC-GLUCOSE METER (BEAKER) 189 mg/dL 70-110 TESTED AT [address] (test hxdq=1215) [place] [address] [id number] 09:14:00 Test Item Value Reference Range Comments PHOSPHORUS (BEAKER) (test fbkh=349) 3.7 mg/dL 2.3-4.7 [id number] 09:14:00 Test Item Value Reference Range Comments MAGNESIUM (BEAKER) (test ljry=425) 2.7 mg/dL 1.6-2.6 BASIC METABOLIC [id number] 09:14:00 Test Item Value Reference Range Comments SODIUM (BEAKER) (test 130 meq/L 136-145 bnsn=332) POTASSIUM (BEAKER) (test 3.9 meq/L 3.5-5.1 qpck=899) CHLORIDE (BEAKER) (test 94 meq/L 98-107 cdvv=651) CO2 (BEAKER) (test 29 meq/L 22-29 cebv=547) BLOOD UREA NITROGEN 36 mg/dL 7-21 (BEAKER) (test wxna=801) CREATININE (BEAKER) (test 5.45 mg/dL 0.57-1.25 kobz=651) GLUCOSE RANDOM (BEAKER) 127 mg/dL 70-105 (test fuao=335) CALCIUM (BEAKER) (test 8.7 mg/dL 8.4-10.2 jolo=490) EGFR (BEAKER) (test 10 mL/min/1.73 sq m ESTIMATED GFR IS NOT ogzd=5704) ACCURATE CREATININE CLEARANCE IN PREDICTING GLOMERULAR FILTRATION RATE. ESTIMATED GFR IS NOT APPLICABLE FOR DIALYSIS PATIENTS. Specimen slightly ictericPOCT-GLUCOSE [id number] 08:55:00 Test Item Value Reference Range Comments POC-GLUCOSE METER (BEAKER) 139 mg/dL 70-110 TESTED AT [address] (test vdxe=0973) [facility] [address] CBC W/PLT COUNT & AUTO [id number] 06:21:00 Test Item Value Reference Range Comments WHITE BLOOD CELL COUNT (BEAKER) (test zaad=516) 9.9 K/ L 3.5-10.5 RED BLOOD CELL COUNT (BEAKER) (test obxx=064) 3.18 M/ L 4.63-6.08 HEMOGLOBIN (BEAKER) (test xgns=223) 10.0 GM/DL 13.7-17.5 HEMATOCRIT (BEAKER) (test wvih=116) 32.4 % 40.1-51.0 MEAN CORPUSCULAR VOLUME (BEAKER) (test edyg=673) 101.9 fL 79.0-92.2 MEAN CORPUSCULAR HEMOGLOBIN (BEAKER) (test 31.4 pg 25.7-32.2 sivi=823) MEAN CORPUSCULAR HEMOGLOBIN CONC (BEAKER) (test 30.9 GM/DL 32.3-36.5 ffmh=813) RED CELL DISTRIBUTION WIDTH (BEAKER) (test 18.6 % 11.6-14.4 bkph=133) PLATELET COUNT (BEAKER) (test gqou=302) 199 K/CU MM 150-450 MEAN PLATELET VOLUME (BEAKER) (test ogsv=936) 10.3 fL 9.4-12.4 NUCLEATED RED BLOOD CELLS (BEAKER) (test 0 /100 WBC 0-0 yitg=616) NEUTROPHILS RELATIVE PERCENT (BEAKER) (test 83 % lohd=717) LYMPHOCYTES RELATIVE PERCENT (BEAKER) (test 6 % orxg=566) MONOCYTES RELATIVE PERCENT (BEAKER) (test 8 % foyi=595) EOSINOPHILS RELATIVE PERCENT (BEAKER) (test 2 % tjlr=175) BASOPHILS RELATIVE PERCENT (BEAKER) (test 1 % jdpz=965) NEUTROPHILS ABSOLUTE COUNT (BEAKER) (test 8.20 K/ L 1.78-5.38 tvpw=244) LYMPHOCYTES ABSOLUTE COUNT (BEAKER) (test 0.61 K/ L 1.32-3.57 bbmw=221) MONOCYTES ABSOLUTE COUNT (BEAKER) (test 0.79 K/ L 0.30-0.82 phza=473) EOSINOPHILS ABSOLUTE COUNT (BEAKER) (test 0.18 K/ L 0.04-0.54 fdzv=883) BASOPHILS ABSOLUTE COUNT (BEAKER) (test 0.06 K/ L 0.01-0.08 cmln=451) IMMATURE GRANULOCYTES-RELATIVE PERCENT (BEAKER) 1 % 0-1 (test qbch=3184) PROTHROMBIN [id number] 06:14:00 Test Item Value Reference Range Comments PROTIME (BEAKER) (test ygxr=056) 19.5 seconds 11.9-14.2 INR (BEAKER) (test myti=842) 1.8 <=5.9 Effective 07/29/2018: PT Reference Range ChangeNew: 11.9-14.2 Previous: 11.7- 14.7RECOMMENDED COUMADIN/WARFARIN INR THERAPY RANGESSTANDARD DOSE: 2.0-3.0 Includes: PROPHYLAXIS for venous thrombosis, systemic embolization; TREATMENT for venous thrombosis and/or pulmonary embolus.HIGH RISK: Target INR is2.5-3.5 for patients wiht mechanical heart valves.While on warfarin.[id number] 06:14 :00 Test Item Value Reference Range Comments PARTIAL THROMBOPLASTIN TIME (BEAKER) (test 77.3 seconds 22.5-36.0 hlhq=257) POCT-GLUCOSE [id number] 21:26:00 Test Item Value Reference Range Comments POC-GLUCOSE METER (BEAKER) 147 mg/dL 70-110 TESTED AT [address] (test rvro=0839) [facility] [address] POCT-GLUCOSE [id number] 17:59:00 Test Item Value Reference Range Comments POC-GLUCOSE METER (BEAKER) 114 mg/dL 70-110 TESTED AT [address] (test racg=0549) [facility] [address] POCT-GLUCOSE [id number] 14:16:00 Test Item Value Reference Range Comments POC-GLUCOSE METER (BEAKER) 141 mg/dL 70-110 TESTED AT [address] (test mjff=8286) [facility] [address] CBC W/PLT COUNT & AUTO [id number] 12:14:00 Test Item Value Reference Range Comments WHITE BLOOD CELL COUNT (BEAKER) (test xvif=153) 12.0 K/ L 3.5-10.5 RED BLOOD CELL COUNT (BEAKER) (test ivyh=953) 3.31 M/ L 4.63-6.08 HEMOGLOBIN (BEAKER) (test dcts=704) 10.5 GM/DL 13.7-17.5 HEMATOCRIT (BEAKER) (test ljay=417) 32.9 % 40.1-51.0 MEAN CORPUSCULAR VOLUME (BEAKER) (test hbte=423) 99.4 fL 79.0-92.2 MEAN CORPUSCULAR HEMOGLOBIN (BEAKER) (test 31.7 pg 25.7-32.2 krvr=733) MEAN CORPUSCULAR HEMOGLOBIN CONC (BEAKER) (test 31.9 GM/DL 32.3-36.5 einn=886) RED CELL DISTRIBUTION WIDTH (BEAKER) (test 18.6 % 11.6-14.4 ckaa=235) PLATELET COUNT (BEAKER) (test vmsb=052) 247 K/CU MM 150-450 MEAN PLATELET VOLUME (BEAKER) (test qrle=947) 11.0 fL 9.4-12.4 NUCLEATED RED BLOOD CELLS (BEAKER) (test 0 /100 WBC 0-0 qtot=386) NEUTROPHILS RELATIVE PERCENT (BEAKER) (test 85 % tjlz=425) LYMPHOCYTES RELATIVE PERCENT (BEAKER) (test 7 % bpkk=502) MONOCYTES RELATIVE PERCENT (BEAKER) (test 6 % vdym=617) EOSINOPHILS RELATIVE PERCENT (BEAKER) (test 1 % fjft=572) BASOPHILS RELATIVE PERCENT (BEAKER) (test 0 % bmai=233) NEUTROPHILS ABSOLUTE COUNT (BEAKER) (test 10.21 K/ L 1.78-5.38 vcqj=470) LYMPHOCYTES ABSOLUTE COUNT (BEAKER) (test 0.78 K/ L 1.32-3.57 ypsw=820) MONOCYTES ABSOLUTE COUNT (BEAKER) (test 0.72 K/ L 0.30-0.82 ewgh=882) EOSINOPHILS ABSOLUTE COUNT (BEAKER) (test 0.16 K/ L 0.04-0.54 cnwu=043) BASOPHILS ABSOLUTE COUNT (BEAKER) (test 0.05 K/ L 0.01-0.08 bbop=834) IMMATURE GRANULOCYTES-RELATIVE PERCENT (BEAKER) 1 % 0-1 (test ohtq=9683) POCT-GLUCOSE [id number] 11:22:00 Test Item Value Reference Range Comments POC-GLUCOSE METER (BEAKER) 137 mg/dL 70-110 TESTED AT [address] (test dbnl=1643) [place] [id number] POCT-GLUCOSE [id number] 09:39:00 Test Item Value Reference Range Comments POC-GLUCOSE METER (BEAKER) 118 mg/dL 70-110 TESTED AT [address] (test gofq=4360) [place] [id number] 07:36:00 Test Item Value Reference Range Comments PARTIAL THROMBOPLASTIN TIME (BEAKER) (test 67.9 seconds 22.5-36.0 imll=398) While on warfarin.COMPREHENSIVE METABOLIC [id number] 06:51:00 Test Item Value Reference Range Comments TOTAL PROTEIN (BEAKER) 6.1 gm/dL 6.0-8.3 (test fpyp=306) ALBUMIN (BEAKER) (test 3.1 g/dL 3.5-5.0 avic=6073) ALKALINE PHOSPHATASE 131 U/L 40-150 (BEAKER) (test oxto=702) BILIRUBIN TOTAL (BEAKER) 2.7 mg/dL 0.2-1.2 (test oetd=078) SODIUM (BEAKER) (test 132 meq/L 136-145 hklo=698) POTASSIUM (BEAKER) (test 4.9 meq/L 3.5-5.1 emrv=087) CHLORIDE (BEAKER) (test 95 meq/L 98-107 pshb=532) CO2 (BEAKER) (test 25 meq/L 22-29 ezxt=513) BLOOD UREA NITROGEN 59 mg/dL 7-21 (BEAKER) (test vepa=463) CREATININE (BEAKER) (test 7.24 mg/dL 0.57-1.25 ndmd=665) GLUCOSE RANDOM (BEAKER) 138 mg/dL 70-105 (test nhca=970) CALCIUM (BEAKER) (test 9.3 mg/dL 8.4-10.2 teaz=161) AST (SGOT) (BEAKER) (test 38 U/L 5-34 amic=062) ALT (SGPT) (BEAKER) (test 86 U/L 6-55 pkdw=944) EGFR (BEAKER) (test 7 mL/min/1.73 sq m ESTIMATED GFR IS NOT xdbp=1664) ACCURATE CREATININE CLEARANCE IN PREDICTING GLOMERULAR FILTRATION RATE. ESTIMATED GFR IS NOT APPLICABLE FOR DIALYSIS PATIENTS. Specimen slightly [id number] 06:32:00 Test Item Value Reference Range Comments MAGNESIUM (BEAKER) (test yoqi=700) 3.2 mg/dL 1.6-2.6 CBC W/PLT COUNT & AUTO [id number] 05:57:00 Test Item Value Reference Range Comments WHITE BLOOD CELL COUNT (BEAKER) (test aufv=817) 11.3 K/ L 3.5-10.5 RED BLOOD CELL COUNT (BEAKER) (test ndhb=808) 3.34 M/ L 4.63-6.08 HEMOGLOBIN (BEAKER) (test hpoz=839) 10.4 GM/DL 13.7-17.5 HEMATOCRIT (BEAKER) (test ggjg=111) 32.9 % 40.1-51.0 MEAN CORPUSCULAR VOLUME (BEAKER) (test cykv=105) 98.5 fL 79.0-92.2 MEAN CORPUSCULAR HEMOGLOBIN (BEAKER) (test 31.1 pg 25.7-32.2 hjha=796) MEAN CORPUSCULAR HEMOGLOBIN CONC (BEAKER) (test 31.6 GM/DL 32.3-36.5 kpsl=053) RED CELL DISTRIBUTION WIDTH (BEAKER) (test 18.6 % 11.6-14.4 gwdh=182) PLATELET COUNT (BEAKER) (test yyuk=240) 206 K/CU MM 150-450 MEAN PLATELET VOLUME (BEAKER) (test nnmd=878) 10.8 fL 9.4-12.4 NUCLEATED RED BLOOD CELLS (BEAKER) (test 0 /100 WBC 0-0 tmba=965) NEUTROPHILS RELATIVE PERCENT (BEAKER) (test 85 % vohm=667) LYMPHOCYTES RELATIVE PERCENT (BEAKER) (test 6 % exnq=960) MONOCYTES RELATIVE PERCENT (BEAKER) (test 6 % pmsb=524) EOSINOPHILS RELATIVE PERCENT (BEAKER) (test 2 % eowl=197) BASOPHILS RELATIVE PERCENT (BEAKER) (test 1 % ryxs=446) NEUTROPHILS ABSOLUTE COUNT (BEAKER) (test 9.61 K/ L 1.78-5.38 vlre=689) LYMPHOCYTES ABSOLUTE COUNT (BEAKER) (test 0.63 K/ L 1.32-3.57 whlh=072) MONOCYTES ABSOLUTE COUNT (BEAKER) (test 0.72 K/ L 0.30-0.82 tmqj=515) EOSINOPHILS ABSOLUTE COUNT (BEAKER) (test 0.18 K/ L 0.04-0.54 nkho=108) BASOPHILS ABSOLUTE COUNT (BEAKER) (test 0.06 K/ L 0.01-0.08 fdap=560) IMMATURE GRANULOCYTES-RELATIVE PERCENT (BEAKER) 1 % 0-1 (test bcxo=4996) PROTHROMBIN [id number] 05:52:00 Test Item Value Reference Range Comments PROTIME (BEAKER) (test feoe=398) 23.2 seconds 11.9-14.2 INR (BEAKER) (test leom=153) 2.2 <=5.9 Effective 07/29/2018: PT Reference Range ChangeNew: 11.9-14.2 Previous: 11.7- 14.7RECOMMENDED COUMADIN/WARFARIN INR THERAPY RANGESSTANDARD DOSE: 2.0-3.0 Includes: PROPHYLAXIS for venous thrombosis, systemic embolization; TREATMENT for venous thrombosis and/or pulmonary embolus.HIGH RISK: Target INR is2.5-3.5 for patients wiht mechanical heart valves.While on warfarin.POCT-GLUCOSE [id number] 21:23:00 Test Item Value Reference Range Comments POC-GLUCOSE METER (BEAKER) 156 mg/dL 70-110 TESTED AT [address] (test mxqb=2607) [place] [id number] POCT-GLUCOSE [id number] 17:07:00 Test Item Value Reference Range Comments POC-GLUCOSE METER (BEAKER) 158 mg/dL 70-110 TESTED AT [address] (test sofv=2208) [place] [address] [id number] 13:25:00 Test Item Value Reference Range Comments PARTIAL THROMBOPLASTIN TIME (BEAKER) (test 89.3 seconds 22.5-36.0 naze=071) POCT-GLUCOSE [id number] 12:20:00 Test Item Value Reference Range Comments POC-GLUCOSE METER (BEAKER) 167 mg/dL 70-110 TESTED AT [address] (test plgd=9989) [place] [id number] POCT-GLUCOSE [id number] 07:42:00 Test Item Value Reference Range Comments POC-GLUCOSE METER (BEAKER) 132 mg/dL 70-110 TESTED AT [address] (test khcs=5394) [place] [id number] COMPREHENSIVE METABOLIC [id number] 07:04:00 Test Item Value Reference Range Comments TOTAL PROTEIN (BEAKER) 6.6 gm/dL 6.0-8.3 (test ccaq=529) ALBUMIN (BEAKER) (test 3.4 g/dL 3.5-5.0 hzhi=7436) ALKALINE PHOSPHATASE 131 U/L 40-150 (BEAKER) (test gdhf=466) BILIRUBIN TOTAL (BEAKER) 3.4 mg/dL 0.2-1.2 (test rwlf=738) SODIUM (BEAKER) (test 131 meq/L 136-145 ricj=996) POTASSIUM (BEAKER) (test 4.4 meq/L 3.5-5.1 qsoh=011) CHLORIDE (BEAKER) (test 95 meq/L 98-107 vcjl=583) CO2 (BEAKER) (test 23 meq/L 22-29 gsgh=794) BLOOD UREA NITROGEN 47 mg/dL 7-21 (BEAKER) (test qxad=000) CREATININE (BEAKER) (test 6.18 mg/dL 0.57-1.25 emip=075) GLUCOSE RANDOM (BEAKER) 120 mg/dL 70-105 (test dmtc=386) CALCIUM (BEAKER) (test 9.4 mg/dL 8.4-10.2 gpgq=357) AST (SGOT) (BEAKER) (test 40 U/L 5-34 qzcm=770) ALT (SGPT) (BEAKER) (test 101 U/L 6-55 wzuc=702) EGFR (BEAKER) (test 9 mL/min/1.73 sq m ESTIMATED GFR IS NOT lojt=8320) ACCURATE CREATININE CLEARANCE IN PREDICTING GLOMERULAR FILTRATION RATE. ESTIMATED GFR IS NOT APPLICABLE FOR DIALYSIS PATIENTS. Specimen slightly [id number] 07:01:00 Test Item Value Reference Range Comments MAGNESIUM (BEAKER) (test jrvf=980) 2.8 mg/dL 1.6-2.6 PROTHROMBIN [id number] 06:40:00 Test Item Value Reference Range Comments PROTIME (BEAKER) (test wtem=447) 18.5 seconds 11.9-14.2 INR (BEAKER) (test hbgv=278) 1.6 <=5.9 Effective 07/29/2018: PT Reference Range ChangeNew: 11.9-14.2 Previous: 11.7- 14.7RECOMMENDED COUMADIN/WARFARIN INR THERAPY RANGESSTANDARD DOSE: 2.0-3.0 Includes: PROPHYLAXIS for venous thrombosis, systemic embolization; TREATMENT for venous thrombosis and/or pulmonary embolus.HIGH RISK: Target INR is2.5-3.5 for patients wiht mechanical heart valves.While on warfarin.CBC W/PLT COUNT &amp ; AUTO [id number] 06:36:00 Test Item Value Reference Range Comments WHITE BLOOD CELL COUNT (BEAKER) (test qjdd=643) 11.2 K/ L 3.5-10.5 RED BLOOD CELL COUNT (BEAKER) (test ldqf=230) 3.72 M/ L 4.63-6.08 HEMOGLOBIN (BEAKER) (test ilzh=627) 11.7 GM/DL 13.7-17.5 HEMATOCRIT (BEAKER) (test zbbz=098) 38.3 % 40.1-51.0 MEAN CORPUSCULAR VOLUME (BEAKER) (test kicw=214) 103.0 fL 79.0-92.2 MEAN CORPUSCULAR HEMOGLOBIN (BEAKER) (test 31.5 pg 25.7-32.2 fxro=807) MEAN CORPUSCULAR HEMOGLOBIN CONC (BEAKER) (test 30.5 GM/DL 32.3-36.5 kcvh=616) RED CELL DISTRIBUTION WIDTH (BEAKER) (test 19.1 % 11.6-14.4 vmyp=697) PLATELET COUNT (BEAKER) (test jwkp=713) 205 K/CU MM 150-450 MEAN PLATELET VOLUME (BEAKER) (test npgc=172) 11.3 fL 9.4-12.4 NUCLEATED RED BLOOD CELLS (BEAKER) (test 0 /100 WBC 0-0 kndt=858) NEUTROPHILS RELATIVE PERCENT (BEAKER) (test 82 % fyxb=252) LYMPHOCYTES RELATIVE PERCENT (BEAKER) (test 7 % ipxu=850) MONOCYTES RELATIVE PERCENT (BEAKER) (test 8 % gwvc=271) EOSINOPHILS RELATIVE PERCENT (BEAKER) (test 1 % npdm=706) BASOPHILS RELATIVE PERCENT (BEAKER) (test 1 % ipxk=062) NEUTROPHILS ABSOLUTE COUNT (BEAKER) (test 9.19 K/ L 1.78-5.38 mcnn=382) LYMPHOCYTES ABSOLUTE COUNT (BEAKER) (test 0.79 K/ L 1.32-3.57 mdjg=545) MONOCYTES ABSOLUTE COUNT (BEAKER) (test 0.86 K/ L 0.30-0.82 wrcq=774) EOSINOPHILS ABSOLUTE COUNT (BEAKER) (test 0.16 K/ L 0.04-0.54 djhz=398) BASOPHILS ABSOLUTE COUNT (BEAKER) (test 0.07 K/ L 0.01-0.08 krlm=808) IMMATURE GRANULOCYTES-RELATIVE PERCENT (BEAKER) 1 % 0-1 (test sslz=8579) POCT-GLUCOSE [id number] 22:24:00 Test Item Value Reference Range Comments POC-GLUCOSE METER (BEAKER) 152 mg/dL 70-[address] [facility] [address] [facility] (test npeb=1725) [facility] [address] POCT-GLUCOSE [id number] 17:15:00 Test Item Value Reference Range Comments POC-GLUCOSE METER (BEAKER) 157 mg/dL 70-110 TESTED AT [address] (test ujli=8762) [facility] [address] RAD, CHEST, 1 VIEW, NON [id number] 15:38:00Reason for exam:->coughShould this be performed at the bedside?->YesFINAL REPORT Portable chest. CLINICAL HISTORY: cough. COMPARISON STUDY: July 31, 2018. FINDINGS: The cardiac silhouette is enlarged. The pulmonary parenchyma demonstrates mild interstitial markings. A left jugular line remains. No pneumothorax is seen. Degenerative changes are noted. IMPRESSION: No significant change. Signed: Daniel Gibbs MDReport Verified Date/Time: 2018 15:38:51 Reading Location: [address] Ortho Consult Reading Room POCT- GLUCOSE [id number] 07:50:00 Test Item Value Reference Range Comments POC-GLUCOSE METER (BEAKER) 132 mg/dL 70-110 TESTED AT [address] (test jqqx=6186) [place] [id number] COMPREHENSIVE METABOLIC [id number] 07:16:00 Test Item Value Reference Range Comments TOTAL PROTEIN (BEAKER) 6.1 gm/dL 6.0-8.3 (test klvx=114) ALBUMIN (BEAKER) (test 3.1 g/dL 3.5-5.0 jerv=0939) ALKALINE PHOSPHATASE 123 U/L 40-150 (BEAKER) (test qecz=746) BILIRUBIN TOTAL (BEAKER) 3.1 mg/dL 0.2-1.2 (test yynd=043) SODIUM (BEAKER) (test 136 meq/L 136-145 eguj=825) POTASSIUM (BEAKER) (test 4.0 meq/L 3.5-5.1 ylid=397) CHLORIDE (BEAKER) (test 99 meq/L 98-107 aaym=122) CO2 (BEAKER) (test 27 meq/L 22-29 iqys=306) BLOOD UREA NITROGEN 37 mg/dL 7-21 (BEAKER) (test qbvz=943) CREATININE (BEAKER) (test 5.17 mg/dL 0.57-1.25 tffr=744) GLUCOSE RANDOM (BEAKER) 155 mg/dL 70-105 (test ekvk=565) CALCIUM (BEAKER) (test 9.2 mg/dL 8.4-10.2 vpew=576) AST (SGOT) (BEAKER) (test 53 U/L 5-34 zmhf=264) ALT (SGPT) (BEAKER) (test 124 U/L 6-55 bwsu=566) EGFR (BEAKER) (test 11 mL/min/1.73 sq m ESTIMATED GFR IS NOT yiuw=7662) ACCURATE CREATININE CLEARANCE IN PREDICTING GLOMERULAR FILTRATION RATE. ESTIMATED GFR IS NOT APPLICABLE FOR DIALYSIS PATIENTS. Specimen slightly [id number] 07:02:00 Test Item Value Reference Range Comments PHOSPHORUS (BEAKER) (test maoe=345) 4.3 mg/dL 2.3-4.7 [id number] 07:02:00 Test Item Value Reference Range Comments MAGNESIUM (BEAKER) (test ylfy=895) 2.5 mg/dL 1.6-2.6 CBC W/PLT COUNT & AUTO [id number] 06:31:00 Test Item Value Reference Range Comments WHITE BLOOD CELL COUNT (BEAKER) (test dzwd=875) 10.8 K/ L 3.5-10.5 RED BLOOD CELL COUNT (BEAKER) (test gqcc=544) 3.47 M/ L 4.63-6.08 HEMOGLOBIN (BEAKER) (test drno=736) 10.7 GM/DL 13.7-17.5 HEMATOCRIT (BEAKER) (test dibx=426) 34.7 % 40.1-51.0 MEAN CORPUSCULAR VOLUME (BEAKER) (test ffdq=542) 100.0 fL 79.0-92.2 MEAN CORPUSCULAR HEMOGLOBIN (BEAKER) (test 30.8 pg 25.7-32.2 qphu=128) MEAN CORPUSCULAR HEMOGLOBIN CONC (BEAKER) (test 30.8 GM/DL 32.3-36.5 gdbw=181) RED CELL DISTRIBUTION WIDTH (BEAKER) (test 19.4 % 11.6-14.4 epzw=039) PLATELET COUNT (BEAKER) (test nmpz=010) 179 K/CU MM 150-450 MEAN PLATELET VOLUME (BEAKER) (test prxw=501) 11.0 fL 9.4-12.4 NUCLEATED RED BLOOD CELLS (BEAKER) (test 0 /100 WBC 0-0 eati=477) NEUTROPHILS RELATIVE PERCENT (BEAKER) (test 82 % uloo=563) LYMPHOCYTES RELATIVE PERCENT (BEAKER) (test 6 % efgb=957) MONOCYTES RELATIVE PERCENT (BEAKER) (test 10 % fpgt=430) EOSINOPHILS RELATIVE PERCENT (BEAKER) (test 2 % weqm=300) BASOPHILS RELATIVE PERCENT (BEAKER) (test 0 % lonr=049) NEUTROPHILS ABSOLUTE COUNT (BEAKER) (test 8.79 K/ L 1.78-5.38 tqtn=033) LYMPHOCYTES ABSOLUTE COUNT (BEAKER) (test 0.67 K/ L 1.32-3.57 lngl=899) MONOCYTES ABSOLUTE COUNT (BEAKER) (test 1.03 K/ L 0.30-0.82 sapa=222) EOSINOPHILS ABSOLUTE COUNT (BEAKER) (test 0.16 K/ L 0.04-0.54 wphc=658) BASOPHILS ABSOLUTE COUNT (BEAKER) (test 0.03 K/ L 0.01-0.08 mdhn=233) IMMATURE GRANULOCYTES-RELATIVE PERCENT (BEAKER) 1 % 0-1 (test yzyg=2350) [id number] 06:22:00 Test Item Value Reference Range Comments PROTIME (BEAKER) (test dpjp=509) 17.6 seconds 11.9-14.2 INR (BEAKER) (test xquk=556) 1.5 <=5.9 PARTIAL THROMBOPLASTIN TIME (BEAKER) (test 69.4 seconds 22.5-36.0 ozgp=652) Effective 07/29/2018: PT Reference Range ChangeNew: 11.9-14.2 Previous: 11.7- 14.7RECOMMENDED COUMADIN/WARFARIN INR THERAPY RANGESSTANDARD DOSE: 2.0-3.0 Includes: PROPHYLAXIS for venous thrombosis, systemic embolization; TREATMENT for venous thrombosis and/or pulmonary embolus.HIGH RISK: Target INR is2.5-3.5 for patients wiht mechanical heart valves.While on warfarin.While on warfarin.PROTHROMBIN [id number] 06:21:00 Test Item Value Reference Range Comments PROTIME (BEAKER) (test bomg=601) 17.6 seconds 11.9-14.2 INR (BEAKER) (test kfvl=048) 1.5 <=5.9 Effective 07/29/2018: PT Reference Range ChangeNew: 11.9-14.2 Previous: 11.7- 14.7RECOMMENDED COUMADIN/WARFARIN INR THERAPY RANGESSTANDARD DOSE: 2.0-3.0 Includes: PROPHYLAXIS for venous thrombosis, systemic embolization; TREATMENT for venous thrombosis and/or pulmonary embolus.HIGH RISK: Target INR is2.5-3.5 for patients wiht mechanical heart valves.POCT-GLUCOSE [id number] 21:12:00 Test Item Value Reference Range Comments POC-GLUCOSE METER (BEAKER) 129 mg/dL 70-110 TESTED AT [place] [id number] [facility] (test iyag=5168) [place] [id number] POCT-GLUCOSE [id number] 17:43:00 Test Item Value Reference Range Comments POC-GLUCOSE METER (BEAKER) 192 mg/dL 70-110 TESTED AT [address] (test zlcz=8058) [place] [address] ANG, AV-SHUNT, CATH INTRO WITH [id number] 16:46:00Reason for exam:-> clotted AVFFINAL REPORT Left upper extremity AV fistula declot. History: Thrombosed left upper extremity AV fistula. Modality: Ultrasound and fluoroscopy Sedation: None Anesthesia: Two percent Lidocaine without epinephrine. Approach: Left upper extremity AV fistula Estimated blood loss: < 5 cc. Specimen: None. soyfreeze operator: Jean-Claude Jones MD. Engineering Tech: MD Deshaun. Fluoroscopy Time: 12.6 min.Reference Air [...] was removed. 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 Suggest repeat testing in 12 weeks and when patient not receiving anticoagulant therapy. PROTIME (BEAKER) (test 14.9 seconds 11.9-14.2 hgcl=680) INR (BEAKER) (test wmpf=038) 1.2 <=5.9 PARTIAL THROMBOPLASTIN TIME 44.9 seconds 22.5-36.0 (BEAKER) (test vyex=539) PTT-LA (BEAKER) (test 55.1 32.0-41.8 mopd=[id number]) DAYK-YSQCVGYETKI-319 (BEAKER) Maynor Hayward M.D. (test pizx=0172) (electonic signature) HEXAGONAL [id number] 13:24:00 Test Item Value Reference Range Comments HEXAGONAL PHOSPHOLIPID (BEAKER) (test kdhf=2942) Positive POCT-GLUCOSE [id number] 12:57:00 Test Item Value Reference Range Comments POC-GLUCOSE METER (BEAKER) 93 mg/dL 70-[address] [facility] [address] [facility] (test zulx=8979) [facility] [address] COMPREHENSIVE METABOLIC [id number] 12:54:00 Test Item Value Reference Range Comments TOTAL PROTEIN (BEAKER) 6.3 gm/dL 6.0-8.3 (test kxsz=177) ALBUMIN (BEAKER) (test 3.1 g/dL 3.5-5.0 paux=1376) ALKALINE PHOSPHATASE 128 U/L 40-150 (BEAKER) (test wszq=089) BILIRUBIN TOTAL (BEAKER) 3.9 mg/dL 0.2-1.2 (test xaro=014) SODIUM (BEAKER) (test 138 meq/L 136-145 imcw=828) POTASSIUM (BEAKER) (test 3.5 meq/L 3.5-5.1 cnev=373) CHLORIDE (BEAKER) (test 101 meq/L 98-107 sfum=477) CO2 (BEAKER) (test 28 meq/L 22-29 fahl=827) BLOOD UREA NITROGEN 22 mg/dL 7-21 (BEAKER) (test dlkj=814) CREATININE (BEAKER) (test 3.20 mg/dL 0.57-1.25 nmrl=421) GLUCOSE RANDOM (BEAKER) 103 mg/dL 70-105 (test tihp=128) CALCIUM (BEAKER) (test 9.2 mg/dL 8.4-10.2 ynaq=453) AST (SGOT) (BEAKER) (test 54 U/L 5-34 iypt=907) ALT (SGPT) (BEAKER) (test 133 U/L 6-55 ctoh=076) EGFR (BEAKER) (test 19 mL/min/1.73 sq m ESTIMATED GFR IS NOT ctlp=8324) ACCURATE CREATININE CLEARANCE IN PREDICTING GLOMERULAR FILTRATION RATE. ESTIMATED GFR IS NOT APPLICABLE FOR DIALYSIS PATIENTS. Specimen moderately [id number] 12:37:00 Test Item Value Reference Range Comments MAGNESIUM (BEAKER) (test xywm=282) 1.8 mg/dL 1.6-2.6 POCT-GLUCOSE [id number] 11:49:00 Test Item Value Reference Range Comments POC-GLUCOSE METER (BEAKER) 86 mg/dL 70-110 TESTED AT [address] (test ehyw=9562) [facility] [address] PT/[id number] 11:48:00 Test Item Value Reference Range Comments PROTIME (BEAKER) (test auvf=300) 17.4 seconds 11.9-14.2 INR (BEAKER) (test ggfp=631) 1.5 <=5.9 PARTIAL THROMBOPLASTIN TIME (BEAKER) (test 66.0 seconds 22.5-36.0 kydk=031) Effective 07/29/2018: PT Reference Range ChangeNew: 11.9-14.2 Previous: 11.7- 14.7RECOMMENDED COUMADIN/WARFARIN INR THERAPY RANGESSTANDARD DOSE: 2.0-3.0 Includes: PROPHYLAXIS for venous thrombosis, systemic embolization; TREATMENT for venous thrombosis and/or pulmonary embolus.HIGH RISK: Target INR is2.5-3.5 for patients wiht mechanical heart valves.CBC W/PLT COUNT & AUTO [id number] 11:40:00 Test Item Value Reference Range Comments WHITE BLOOD CELL COUNT (BEAKER) (test prxj=976) 11.2 K/ L 3.5-10.5 RED BLOOD CELL COUNT (BEAKER) (test byko=489) 3.51 M/ L 4.63-6.08 HEMOGLOBIN (BEAKER) (test kjza=659) 11.2 GM/DL 13.7-17.5 HEMATOCRIT (BEAKER) (test efcc=308) 34.1 % 40.1-51.0 MEAN CORPUSCULAR VOLUME (BEAKER) (test kkef=412) 97.2 fL 79.0-92.2 MEAN CORPUSCULAR HEMOGLOBIN (BEAKER) (test 31.9 pg 25.7-32.2 abbz=564) MEAN CORPUSCULAR HEMOGLOBIN CONC (BEAKER) (test 32.8 GM/DL 32.3-36.5 cpsr=321) RED CELL DISTRIBUTION WIDTH (BEAKER) (test 19.6 % 11.6-14.4 kugo=150) PLATELET COUNT (BEAKER) (test dfrp=504) 138 K/CU MM 150-450 MEAN PLATELET VOLUME (BEAKER) (test jnle=310) 10.7 fL 9.4-12.4 NUCLEATED RED BLOOD CELLS (BEAKER) (test 0 /100 WBC 0-0 cnau=998) NEUTROPHILS RELATIVE PERCENT (BEAKER) (test 81 % znzp=667) LYMPHOCYTES RELATIVE PERCENT (BEAKER) (test 7 % zkvx=472) MONOCYTES RELATIVE PERCENT (BEAKER) (test 10 % yzmq=335) EOSINOPHILS RELATIVE PERCENT (BEAKER) (test 2 % ebne=293) BASOPHILS RELATIVE PERCENT (BEAKER) (test 0 % wgfs=619) NEUTROPHILS ABSOLUTE COUNT (BEAKER) (test 9.02 K/ L 1.78-5.38 mwnc=664) LYMPHOCYTES ABSOLUTE COUNT (BEAKER) (test 0.73 K/ L 1.32-3.57 dari=339) MONOCYTES ABSOLUTE COUNT (BEAKER) (test 1.09 K/ L 0.30-0.82 amgh=612) EOSINOPHILS ABSOLUTE COUNT (BEAKER) (test 0.21 K/ L 0.04-0.54 oojm=284) BASOPHILS ABSOLUTE COUNT (BEAKER) (test 0.03 K/ L 0.01-0.08 omzh=750) IMMATURE GRANULOCYTES-RELATIVE PERCENT (BEAKER) 1 % 0-1 (test laxb=9949) 1:1 MIXING STUDY, [id number] 11:18:00 Test Item Value Reference Range Comments PROTIME (BEAKER) (test esxy=227) 14.9 seconds 11.9-14.2 PARTIAL THROMBOPLASTIN TIME (BEAKER) (test 44.9 seconds 22.5-36.0 rnyo=258) PT 1/1 MIX (BEAKER) (test pkui=0692) 13.6 SECS 11.7-14.7 PTT 1/1 MIX (BEAKER) (test asxv=7778) 34.8 SECS 22.5-36.0 THROMBIN [id number] 10:46:00 Test Item Value Reference Range Comments THROMBIN TIME (BEAKER) (test fimc=319) 23.0 secs 13.8-20.0 POCT-GLUCOSE [id number] 21:46:00 Test Item Value Reference Range Comments POC-GLUCOSE METER (BEAKER) 169 mg/dL 70-[address] [facility] [address] [facility] (test nxyr=5342) [facility] [address] CT, CTA, [id number] 18:58:00Addendum BeginsREPORT STATUS:A ADDENDUM: Study reviewed by radiology. Agree with the nonvascular findings as described below. 1.4 cm right upper lobe groundglass opacity with ill-defined margins may be followed with CT in 6 months. Signed: Gallo Delgado MDReport Verified Date/Time: 08/06/2018 18:58:59 Reading Location: [place] [address] Angio Body Reading RoomAddendum EndsFINAL REPORT CT [...] 45.4 degrees. The angle of delivery is [place] 5 CAU 19. The minimal and perpendicular [...] dictated regarding the non-vascular findings by the Scanning Clerk Radiologist. Signed: Edgar Torres Verified Date/Time : 08/06/2018 17:20:23 Reading Location: [facility] [address], CTA [id number] 18:58:00Addendum BeginsREPORT STATUS:A ADDENDUM: Study reviewed by radiology. Agree with the nonvascular findings as described below. 1.4 cm right upper lobe groundglass opacity with ill-defined margins may be followed with CT in 6 months. Signed: Gallo Delgado Verified Date/Time: 08/06/2018 18:58:59 Reading Location: [facility] B1 [address] Angio Body Reading RoomAddendum EndsFINAL [...] 45.4 degrees. The angle of delivery is [place] 5 CAU 19. The minimal and perpendicular [...] dictated regarding the non-vascular findings by the Scanning Clerk Radiologist. Signed: Edgar Torres Verified Date/Time : 08/06/2018 17:20:23 Reading Location: [place] [address] Cardiology MRI POCT- GLUCOSE [id number] 12:37:00 Test Item Value Reference Range Comments POC-GLUCOSE METER (BEAKER) 204 mg/dL 70-110 TESTED AT [address] (test huon=2492) [facility] [address] POCT-GLUCOSE [id number] 09:10:00 Test Item Value Reference Range Comments POC-GLUCOSE METER (BEAKER) 166 mg/dL 70-110 TESTED AT [address] (test qhpc=6970) [facility] [address] COMPREHENSIVE METABOLIC [id number] 02:39:00 Test Item Value Reference Range Comments TOTAL PROTEIN (BEAKER) 6.0 gm/dL 6.0-8.3 (test utpd=301) ALBUMIN (BEAKER) (test 3.0 g/dL 3.5-5.0 caci=3015) ALKALINE PHOSPHATASE 140 U/L 40-150 (BEAKER) (test eign=116) BILIRUBIN TOTAL (BEAKER) 4.9 mg/dL 0.2-1.2 (test ybfm=215) SODIUM (BEAKER) (test 135 meq/L 136-145 gyed=268) POTASSIUM (BEAKER) (test 3.9 meq/L 3.5-5.1 edwb=515) CHLORIDE (BEAKER) (test 100 meq/L 98-107 hrbx=081) CO2 (BEAKER) (test 25 meq/L 22-29 nzff=360) BLOOD UREA NITROGEN 41 mg/dL 7-21 (BEAKER) (test djrf=835) CREATININE (BEAKER) (test 5.53 mg/dL 0.57-1.25 zxjv=762) GLUCOSE RANDOM (BEAKER) 182 mg/dL 70-105 (test wxnh=245) CALCIUM (BEAKER) (test 9.3 mg/dL 8.4-10.2 ybtq=405) AST (SGOT) (BEAKER) (test 104 U/L 5-34 yvva=523) ALT (SGPT) (BEAKER) (test 171 U/L 6-55 aghr=575) EGFR (BEAKER) (test 10 mL/min/1.73 sq m ESTIMATED GFR IS NOT pkeo=9422) ACCURATE CREATININE CLEARANCE IN PREDICTING GLOMERULAR FILTRATION RATE. ESTIMATED GFR IS NOT APPLICABLE FOR DIALYSIS PATIENTS. Specimen moderately [id number] 02:32:00 Test Item Value Reference Range Comments PHOSPHORUS (BEAKER) (test fusm=457) 4.1 mg/dL 2.3-4.7 [id number] 02:32:00 Test Item Value Reference Range Comments MAGNESIUM (BEAKER) (test xrgo=810) 2.0 mg/dL 1.6-2.6 [id number] 02:21:00 Test Item Value Reference Range Comments PARTIAL THROMBOPLASTIN TIME (BEAKER) (test 66.8 seconds 22.5-36.0 erfu=429) 4 hours after the start of continuous infusion and 4 hours after any rate changeWhile on warfarin.PROTHROMBIN [id number] 02:20:00 Test Item Value Reference Range Comments PROTIME (BEAKER) (test nxlo=355) 19.0 seconds 11.9-14.2 INR (BEAKER) (test qdzk=128) 1.7 <=5.9 Effective 07/29/2018: PT Reference Range ChangeNew: 11.9-14.2 Previous: 11.7- 14.7RECOMMENDED COUMADIN/WARFARIN INR THERAPY RANGESSTANDARD DOSE: 2.0-3.0 Includes: PROPHYLAXIS for venous thrombosis, systemic embolization; TREATMENT for venous thrombosis and/or pulmonary embolus.HIGH RISK: Target INR is2.5-3.5 for patients wiht mechanical heart valves.4 hours after the start of continuous infusion and4 hours after any rate changeWhile on warfarin.CBC W/PLT COUNT &amp ; AUTO [id number] 02:02:00 Test Item Value Reference Range Comments WHITE BLOOD CELL COUNT (BEAKER) (test chsb=975) 10.6 K/ L 3.5-10.5 RED BLOOD CELL COUNT (BEAKER) (test wzgj=629) 3.68 M/ L 4.63-6.08 HEMOGLOBIN (BEAKER) (test tumq=257) 11.8 GM/DL 13.7-17.5 HEMATOCRIT (BEAKER) (test hzgw=415) 35.7 % 40.1-51.0 MEAN CORPUSCULAR VOLUME (BEAKER) (test qbac=626) 97.0 fL 79.0-92.2 MEAN CORPUSCULAR HEMOGLOBIN (BEAKER) (test 32.1 pg 25.7-32.2 cuwc=128) MEAN CORPUSCULAR HEMOGLOBIN CONC (BEAKER) (test 33.1 GM/DL 32.3-36.5 yvqa=752) RED CELL DISTRIBUTION WIDTH (BEAKER) (test 19.9 % 11.6-14.4 zofc=921) PLATELET COUNT (BEAKER) (test nryo=055) 115 K/CU MM 150-450 MEAN PLATELET VOLUME (BEAKER) (test fuqq=127) 11.4 fL 9.4-12.4 NUCLEATED RED BLOOD CELLS (BEAKER) (test 0 /100 WBC 0-0 ttec=281) NEUTROPHILS RELATIVE PERCENT (BEAKER) (test 80 % sgmz=706) LYMPHOCYTES RELATIVE PERCENT (BEAKER) (test 5 % oigj=041) MONOCYTES RELATIVE PERCENT (BEAKER) (test 12 % zbar=224) EOSINOPHILS RELATIVE PERCENT (BEAKER) (test 2 % wkaw=633) BASOPHILS RELATIVE PERCENT (BEAKER) (test 0 % xhyw=523) NEUTROPHILS ABSOLUTE COUNT (BEAKER) (test 8.48 K/ L 1.78-5.38 etuw=765) LYMPHOCYTES ABSOLUTE COUNT (BEAKER) (test 0.50 K/ L 1.32-3.57 zlrr=189) MONOCYTES ABSOLUTE COUNT (BEAKER) (test 1.31 K/ L 0.30-0.82 srkm=777) EOSINOPHILS ABSOLUTE COUNT (BEAKER) (test 0.17 K/ L 0.04-0.54 nubu=728) BASOPHILS ABSOLUTE COUNT (BEAKER) (test 0.03 K/ L 0.01-0.08 cnso=331) IMMATURE GRANULOCYTES-RELATIVE PERCENT (BEAKER) 1 % 0-1 (test lylt=9970) POCT-GLUCOSE [id number] 21:39:00 Test Item Value Reference Range Comments POC-GLUCOSE METER (BEAKER) 216 mg/dL 70-110 TESTED AT [address] (test xset=0219) [place] [address] POCT-GLUCOSE [id number] 21:39:00 Test Item Value Reference Range Comments POC-GLUCOSE METER (BEAKER) 140 mg/dL 70-110 TESTED AT [address] (test pkir=6872) [place] [address] PROTEIN ELECTROPHORESIS, [id number] 15:47:00 Test Item Value Reference Range Comments ALBUMIN FRACTION (BEAKER) 2.8 g/dL 3.5-5.5 (test balr=181) ALPHA 1 FRACTION (BEAKER) 0.4 g/dL 0.2-0.4 (test sjfm=329) ALPHA 2 FRACTION (BEAKER) 0.6 g/dL 0.5-0.9 (test rjef=220) BETA FRACTION (BEAKER) (test 0.4 g/dL 0.6-1.1 dmwo=626) GAMMA GLOBULIN FRACTION 1.4 g/dL 0.7-1.7 (BEAKER) (test idfh=947) INTERPRETATION-119 (BEAKER) Albumin decreased. Alpha (test szoh=6808) globulin-1 percentage increased. This suggests an acute phase response. VPKP-GFJZRMSOMNP-151 (BEAKER) Maynor Hayward M.D. (electonic (test dezh=0371) signature) PROTEIN TOTAL SERUM, SPEP 5.6 gm/dL 6.0-8.3 (BEAKER) (test auug=1831) Low beta globulin content also noted.POCT-GLUCOSE [id number] 09:01:00 Test Item Value Reference Range Comments POC-GLUCOSE METER (BEAKER) 175 mg/dL 70-[address] [facility] [address] [facility] (test nfkl=5590) [facility] [address] COMPREHENSIVE METABOLIC [id number] 02:05:00 Test Item Value Reference Range Comments TOTAL PROTEIN (BEAKER) 5.7 gm/dL 6.0-8.3 (test jdsk=648) ALBUMIN (BEAKER) (test 2.9 g/dL 3.5-5.0 rsed=6600) ALKALINE PHOSPHATASE 89 U/L 40-150 (BEAKER) (test rlkj=556) BILIRUBIN TOTAL (BEAKER) 5.7 mg/dL 0.2-1.2 (test emfn=398) SODIUM (BEAKER) (test 137 meq/L 136-145 iyor=236) POTASSIUM (BEAKER) (test 4.0 meq/L 3.5-5.1 cijz=335) CHLORIDE (BEAKER) (test 98 meq/L 98-107 mwni=746) CO2 (BEAKER) (test 26 meq/L 22-29 pcoq=603) BLOOD UREA NITROGEN 66 mg/dL 7-21 (BEAKER) (test rfzo=201) CREATININE (BEAKER) (test 7.46 mg/dL 0.57-1.25 tmta=691) GLUCOSE RANDOM (BEAKER) 177 mg/dL 70-105 (test yvnk=266) CALCIUM (BEAKER) (test 9.2 mg/dL 8.4-10.2 epfq=244) AST (SGOT) (BEAKER) (test 66 U/L 5-34 ajrw=171) ALT (SGPT) (BEAKER) (test 194 U/L 6-55 jkmj=273) EGFR (BEAKER) (test 7 mL/min/1.73 sq m ESTIMATED GFR IS NOT qnjr=4713) ACCURATE CREATININE CLEARANCE IN PREDICTING GLOMERULAR FILTRATION RATE. ESTIMATED GFR IS NOT APPLICABLE FOR DIALYSIS PATIENTS. Specimen moderately [id number] 02:00:00 Test Item Value Reference Range Comments PHOSPHORUS (BEAKER) (test qthy=998) 6.7 mg/dL 2.3-4.7 [id number] 02:00:00 Test Item Value Reference Range Comments MAGNESIUM (BEAKER) (test riur=169) 2.3 mg/dL 1.6-2.6 CBC W/PLT COUNT & AUTO [id number] 01:50:00 Test Item Value Reference Range Comments WHITE BLOOD CELL COUNT (BEAKER) (test gprg=645) 9.6 K/ L 3.5-10.5 RED BLOOD CELL COUNT (BEAKER) (test ziwq=361) 3.78 M/ L 4.63-6.08 HEMOGLOBIN (BEAKER) (test tixg=060) 11.9 GM/DL 13.7-17.5 HEMATOCRIT (BEAKER) (test pvey=095) 37.0 % 40.1-51.0 MEAN CORPUSCULAR VOLUME (BEAKER) (test jjws=330) 97.9 fL 79.0-92.2 MEAN CORPUSCULAR HEMOGLOBIN (BEAKER) (test 31.5 pg 25.7-32.2 hfhq=330) MEAN CORPUSCULAR HEMOGLOBIN CONC (BEAKER) (test 32.2 GM/DL 32.3-36.5 tbyf=484) RED CELL DISTRIBUTION WIDTH (BEAKER) (test 19.9 % 11.6-14.4 song=896) PLATELET COUNT (BEAKER) (test reav=861) 89 K/CU MM 150-450 MEAN PLATELET VOLUME (BEAKER) (test tycw=817) 12.1 fL 9.4-12.4 NUCLEATED RED BLOOD CELLS (BEAKER) (test 0 /100 WBC 0-0 fray=027) NEUTROPHILS RELATIVE PERCENT (BEAKER) (test 79 % wjdq=531) LYMPHOCYTES RELATIVE PERCENT (BEAKER) (test 5 % ssrs=124) MONOCYTES RELATIVE PERCENT (BEAKER) (test 13 % sxts=146) EOSINOPHILS RELATIVE PERCENT (BEAKER) (test 2 % ecod=419) BASOPHILS RELATIVE PERCENT (BEAKER) (test 0 % rbbx=059) NEUTROPHILS ABSOLUTE COUNT (BEAKER) (test 7.57 K/ L 1.78-5.38 lfty=562) LYMPHOCYTES ABSOLUTE COUNT (BEAKER) (test 0.51 K/ L 1.32-3.57 lqps=794) MONOCYTES ABSOLUTE COUNT (BEAKER) (test pohf=491) 1.24 K/ L 0.30-0.82 EOSINOPHILS ABSOLUTE COUNT (BEAKER) (test 0.16 K/ L 0.04-0.54 jetz=688) BASOPHILS ABSOLUTE COUNT (BEAKER) (test epqx=296) 0.02 K/ L 0.01-0.08 IMMATURE GRANULOCYTES-RELATIVE PERCENT (BEAKER) 1 % 0-1 (test gsla=3350) [id number] 01:49:00 Test Item Value Reference Range Comments PARTIAL THROMBOPLASTIN TIME (BEAKER) (test 71.2 seconds 22.5-36.0 znit=225) While on warfarin.PROTHROMBIN [id number] 01:48:00 Test Item Value Reference Range Comments PROTIME (BEAKER) (test avcz=460) 18.6 seconds 11.9-14.2 INR (BEAKER) (test pvxx=335) 1.6 <=5.9 Effective 07/29/2018: PT Reference Range ChangeNew: 11.9-14.2 Previous: 11.7- 14.7RECOMMENDED COUMADIN/WARFARIN INR THERAPY RANGESSTANDARD DOSE: 2.0-3.0 Includes: PROPHYLAXIS for venous thrombosis, systemic embolization; TREATMENT for venous thrombosis and/or pulmonary embolus.HIGH RISK: Target INR is2.5-3.5 for patients wiht mechanical heart valves.While on warfarin.POCT-GLUCOSE [id number] 21:44:00 Test Item Value Reference Range Comments POC-GLUCOSE METER (BEAKER) 242 mg/dL 70-110 TESTED AT [address] (test fxho=5771) [place] [id number] 21:02:00 Test Item Value Reference Range Comments PARTIAL THROMBOPLASTIN TIME (BEAKER) (test 59.9 seconds 22.5-36.0 qazf=201) POCT-GLUCOSE [id number] 16:52:00 Test Item Value Reference Range Comments POC-GLUCOSE METER (BEAKER) 130 mg/dL 70-110 TESTED AT [address] (test kwmp=1277) [facility] [id number] [place] [id number] 14:23:00 Test Item Value Reference Range Comments HEPARIN ANTIBODY (BEAKER) Positive-See Serotonin Release Negative (test myee=047) Assay for Confirmation HEPARIN ANTIBODY OD (BEAKER) 0.516 <0.400 (test bzxy=9924) 4T TOTAL SCORE (BEAKER) 6 (test yjir=1847) Probability of HIT based on scoring system: 6-8=High probability; 4-5= intermediate probability; 0-3=low probabilityPERIPHERAL BLOOD SMEAR - HOLD [id number] 14:09:00 Test Item Value Reference Range Comments PERIPHERAL SMEAR SAVE (BEAKER) (test azsw=9988) SAVE [id number] 13:57:00 Test Item Value Reference Range Comments PARTIAL THROMBOPLASTIN TIME (BEAKER) (test 50.3 seconds 22.5-36.0 fecu=160) POCT-GLUCOSE [id number] 12:31:00 Test Item Value Reference Range Comments POC-GLUCOSE METER (BEAKER) 90 mg/dL 70-110 TESTED AT [address] (test bxwg=9227) [place] [address] CARDIOLIPIN ANTIBODIES, IGG AND [id number] 10:36:00 Test Item Value Reference Range Comments ANTICARDIOLIPIN IGG ANTIBODY (BEAKER) (test < GPL <20.0 uilm=691) ANTICARDIOLIPIN IGM ANTIBODY (BEAKER) (test 0.6 MPL <20.0 fyap=749) Anticardiolipin IgG Result Interpretation: <20.0 GPL Normal>/=20.0 GPL PositiveAnticardiolipin IgM Result Interpretation: <20.0 MPL Normal>/= 20.0 MPL [id number] 08:20:00 Test Item Value Reference Range Comments PARTIAL THROMBOPLASTIN TIME (BEAKER) (test 47.3 seconds 22.5-36.0 kpvd=661) POCT-GLUCOSE [id number] 07:52:00 Test Item Value Reference Range Comments POC-GLUCOSE METER (BEAKER) 90 mg/dL 70-110 TESTED AT [address] (test ilxg=4743) [place] [address] COMPREHENSIVE METABOLIC [id number] 04:34:00 Test Item Value Reference Range Comments TOTAL PROTEIN (BEAKER) 6.1 gm/dL 6.0-8.3 (test tjpu=506) ALBUMIN (BEAKER) (test 3.0 g/dL 3.5-5.0 bscc=7714) ALKALINE PHOSPHATASE 81 U/L 40-150 (BEAKER) (test gilb=106) BILIRUBIN TOTAL (BEAKER) 6.0 mg/dL 0.2-1.2 (test qfsj=874) SODIUM (BEAKER) (test 136 meq/L 136-145 clyk=382) POTASSIUM (BEAKER) (test 4.1 meq/L 3.5-5.1 mmaf=402) CHLORIDE (BEAKER) (test 98 meq/L 98-107 pxdf=820) CO2 (BEAKER) (test 26 meq/L 22-29 kveg=150) BLOOD UREA NITROGEN 54 mg/dL 7-21 (BEAKER) (test ahjq=231) CREATININE (BEAKER) (test 6.38 mg/dL 0.57-1.25 nayz=327) GLUCOSE RANDOM (BEAKER) 123 mg/dL 70-105 (test xbzl=710) CALCIUM (BEAKER) (test 9.0 mg/dL 8.4-10.2 cbna=427) AST (SGOT) (BEAKER) (test 44 U/L 5-34 cfow=886) ALT (SGPT) (BEAKER) (test 224 U/L 6-55 ruax=928) EGFR (BEAKER) (test 9 mL/min/1.73 sq m ESTIMATED GFR IS NOT gvqe=2818) ACCURATE CREATININE CLEARANCE IN PREDICTING GLOMERULAR FILTRATION RATE. ESTIMATED GFR IS NOT APPLICABLE FOR DIALYSIS PATIENTS. Specimen moderately [id number] 04:27:00 Test Item Value Reference Range Comments MAGNESIUM (BEAKER) (test nnhk=304) 2.1 mg/dL 1.6-2.6 CBC W/PLT COUNT & AUTO [id number] 03:53:00 Test Item Value Reference Range Comments WHITE BLOOD CELL COUNT (BEAKER) (test xgnx=096) 10.5 K/ L 3.5-10.5 RED BLOOD CELL COUNT (BEAKER) (test jvit=878) 3.90 M/ L 4.63-6.08 HEMOGLOBIN (BEAKER) (test qonz=864) 12.2 GM/DL 13.7-17.5 HEMATOCRIT (BEAKER) (test nusx=479) 37.0 % 40.1-51.0 MEAN CORPUSCULAR VOLUME (BEAKER) (test xrxs=906) 94.9 fL 79.0-92.2 MEAN CORPUSCULAR HEMOGLOBIN (BEAKER) (test 31.3 pg 25.7-32.2 ikva=608) MEAN CORPUSCULAR HEMOGLOBIN CONC (BEAKER) (test 33.0 GM/DL 32.3-36.5 lrtk=905) RED CELL DISTRIBUTION WIDTH (BEAKER) (test 20.5 % 11.6-14.4 gmuw=100) PLATELET COUNT (BEAKER) (test neru=845) 87 K/CU MM 150-450 MEAN PLATELET VOLUME (BEAKER) (test lodc=465) 11.5 fL 9.4-12.4 NUCLEATED RED BLOOD CELLS (BEAKER) (test 0 /100 WBC 0-0 neca=735) NEUTROPHILS RELATIVE PERCENT (BEAKER) (test 84 % rmkb=247) LYMPHOCYTES RELATIVE PERCENT (BEAKER) (test 4 % tkoa=515) MONOCYTES RELATIVE PERCENT (BEAKER) (test 10 % jqsz=443) EOSINOPHILS RELATIVE PERCENT (BEAKER) (test 1 % mwuj=891) BASOPHILS RELATIVE PERCENT (BEAKER) (test 0 % sion=717) NEUTROPHILS ABSOLUTE COUNT (BEAKER) (test 8.79 K/ L 1.78-5.38 yjen=862) LYMPHOCYTES ABSOLUTE COUNT (BEAKER) (test 0.44 K/ L 1.32-3.57 nfvd=662) MONOCYTES ABSOLUTE COUNT (BEAKER) (test vmch=548) 1.03 K/ L 0.30-0.82 EOSINOPHILS ABSOLUTE COUNT (BEAKER) (test 0.11 K/ L 0.04-0.54 rqbr=374) BASOPHILS ABSOLUTE COUNT (BEAKER) (test clnj=242) 0.01 K/ L 0.01-0.08 IMMATURE GRANULOCYTES-RELATIVE PERCENT (BEAKER) 1 % 0-1 (test wsgw=6532) [id number] 03:52:00 Test Item Value Reference Range Comments PARTIAL THROMBOPLASTIN TIME (BEAKER) (test 56.9 seconds 22.5-36.0 bunm=135) 4 hours after the start of continuous infusion and 4 hours after any rate changeWhile on warfarin.PROTHROMBIN [id number] 03:51:00 Test Item Value Reference Range Comments PROTIME (BEAKER) (test zvjs=396) 17.2 seconds 11.9-14.2 INR (BEAKER) (test obvi=678) 1.5 <=5.9 Effective 07/29/2018: PT Reference Range ChangeNew: 11.9-14.2 Previous: 11.7- 14.7RECOMMENDED COUMADIN/WARFARIN INR THERAPY RANGESSTANDARD DOSE: 2.0-3.0 Includes: PROPHYLAXIS for venous thrombosis, systemic embolization; TREATMENT for venous thrombosis and/or pulmonary embolus.HIGH RISK: Target INR is2.5-3.5 for patients wiht mechanical heart valves.4 hours after the start of continuous infusion and4 hours after any rate changeWhile on warfarin.POCT-GLUCOSE [id number] 23:01:00 Test Item Value Reference Range Comments POC-GLUCOSE METER (BEAKER) 147 mg/dL 70-[address] [facility] [address] [facility] (test imsc=2730) [facility] [address] [id number] 21:35:00 Test Item Value Reference Range Comments PARTIAL THROMBOPLASTIN TIME (BEAKER) (test 33.6 seconds 22.5-36.0 nhot=555) BLOOD [id number] 20:01:00 Test Item Value Reference Range Comments CULTURE (BEAKER) (test jyua=3833) No growth in 5 days PERIPHERAL BLOOD SMEAR - PATHOLOGIST [id number] 17:51:00 Test Item Value Reference Range Comments RBC MORPHOLOGY (BEAKER) Hypochromic, macrocytic (test dnke=2890) anemia with mild anisopoikilocytosis, including echinocytes and occasional elliptocytes. Rare schistocytes. Increased polychromasia. WBC MORPHOLOGY (BEAKER) Increased. Primarily (test icix=5822) comprised by neutrophils, few with toxic granulation features. PLT MORPHOLOGY (BEAKER) Decrease with normal (test rcaa=6437) granular morphology. Occasional large and rare giant forms. No significant platelet aggregates/clumping identified. [id number] Jon Roger MD (BEAKER) (test lklf=4533) (electronic signature) [id number] 16:42:00 Test Item Value Reference Range Comments FERRITIN (BEAKER) (test tgsp=485) 3900 ng/mL 5-275 POCT-GLUCOSE [id number] 16:28:00 Test Item Value Reference Range Comments POC-GLUCOSE METER (BEAKER) 100 mg/dL 70-110 TESTED AT [address] (test scto=0514) [facility] [address] VITAMIN B12 AND [id number] 15:22:00 Test Item Value Reference Range Comments VITAMIN B12 (BEAKER) (test nyxm=758) > pg/mL 213-816 FOLATE (BEAKER) (test nrga=962) 7.7 ng/mL >=7.0 IMMUNOGLOBULIN G (IGG)2018-08-03 14:38:00 Test Item Value Reference Range Comments IMMUNOGLOBULIN G (IGG) (BEAKER) (test ulle=082) 1163 mg/dL 540-1,822 IMMUNOGLOBULIN M (IGM)2018-08-03 14:38:00 Test Item Value Reference Range Comments IMMUNOGLOBULIN M (IGM) (BEAKER) (test gjyk=733) 86 mg/dL 22-293 IMMUNOGLOBULIN A (IGA)2018-08-03 14:38:00 Test Item Value Reference Range Comments IMMUNOGLOBULIN A (IGA) (BEAKER) (test hssc=029) 222 mg/dL 63-484 IRON, TIBC, % SAT. (WITHOUT FERRITIN)2018-08-03 14:38:00 Test Item Value Reference Range Comments IRON (BEAKER) (test rywb=349) 29.0 ug/dL 40.0-160.0 TOTAL IRON BINDING CAPACITY (BEAKER) (test 186 ug/dL 250-450 nazp=562) IRON % SATURATION (2) (BEAKER) (test kuqt=9329) 16 % 20-55 POCT-GLUCOSE [id number] 12:40:00 Test Item Value Reference Range Comments POC-GLUCOSE METER (BEAKER) 118 mg/dL 70-110 TESTED AT [address] (test udvo=7651) [facility] [address] CBC W/PLT COUNT & AUTO [id number] 11:38:00 Test Item Value Reference Range Comments WHITE BLOOD CELL COUNT (BEAKER) (test yalz=063) 12.6 K/ L 3.5-10.5 RED BLOOD CELL COUNT (BEAKER) (test vtls=651) 3.87 M/ L 4.63-6.08 HEMOGLOBIN (BEAKER) (test quwv=154) 12.4 GM/DL 13.7-17.5 HEMATOCRIT (BEAKER) (test cnbz=838) 36.5 % 40.1-51.0 MEAN CORPUSCULAR VOLUME (BEAKER) (test nady=658) 94.3 fL 79.0-92.2 MEAN CORPUSCULAR HEMOGLOBIN (BEAKER) (test 32.0 pg 25.7-32.2 jqlv=310) MEAN CORPUSCULAR HEMOGLOBIN CONC (BEAKER) (test 34.0 GM/DL 32.3-36.5 atcf=854) RED CELL DISTRIBUTION WIDTH (BEAKER) (test 20.3 % 11.6-14.4 vgcv=695) PLATELET COUNT (BEAKER) (test jxgf=973) 97 K/CU MM 150-450 MEAN PLATELET VOLUME (BEAKER) (test uesi=591) 11.5 fL 9.4-12.4 NUCLEATED RED BLOOD CELLS (BEAKER) (test 0 /100 WBC 0-0 zelu=998) NEUTROPHILS RELATIVE PERCENT (BEAKER) (test 83 % qxcc=762) LYMPHOCYTES RELATIVE PERCENT (BEAKER) (test 5 % llzl=239) MONOCYTES RELATIVE PERCENT (BEAKER) (test 10 % vnww=417) EOSINOPHILS RELATIVE PERCENT (BEAKER) (test 1 % fasb=129) BASOPHILS RELATIVE PERCENT (BEAKER) (test 0 % trgf=333) NEUTROPHILS ABSOLUTE COUNT (BEAKER) (test 10.45 K/ L 1.78-5.38 birq=612) LYMPHOCYTES ABSOLUTE COUNT (BEAKER) (test 0.63 K/ L 1.32-3.57 scpg=277) MONOCYTES ABSOLUTE COUNT (BEAKER) (test eydg=966) 1.21 K/ L 0.30-0.82 EOSINOPHILS ABSOLUTE COUNT (BEAKER) (test 0.18 K/ L 0.04-0.54 wyrs=598) BASOPHILS ABSOLUTE COUNT (BEAKER) (test ctxl=937) 0.01 K/ L 0.01-0.08 IMMATURE GRANULOCYTES-RELATIVE PERCENT (BEAKER) 1 % 0-1 (test xeyw=5248) [id number] 09:34:00 Test Item Value Reference Range Comments PARTIAL THROMBOPLASTIN TIME (BEAKER) (test 56.9 seconds 22.5-36.0 nnkh=971) POCT-GLUCOSE [id number] 08:07:00 Test Item Value Reference Range Comments POC-GLUCOSE METER (BEAKER) 117 mg/dL 70-[address] [facility] [address] (test susd=6428) [facility] [address] COMPREHENSIVE METABOLIC [id number] 03:40:00 Test Item Value Reference Range Comments TOTAL PROTEIN (BEAKER) 6.0 gm/dL 6.0-8.3 (test bidb=808) ALBUMIN (BEAKER) (test 3.1 g/dL 3.5-5.0 wtti=0525) ALKALINE PHOSPHATASE 87 U/L 40-150 (BEAKER) (test peru=579) BILIRUBIN TOTAL (BEAKER) 5.1 mg/dL 0.2-1.2 (test jcqm=164) SODIUM (BEAKER) (test 132 meq/L 136-145 oelf=653) POTASSIUM (BEAKER) (test 4.8 meq/L 3.5-5.1 hbyo=993) CHLORIDE (BEAKER) (test 95 meq/L 98-107 vlog=221) CO2 (BEAKER) (test 21 meq/L 22-29 dzps=234) BLOOD UREA NITROGEN 88 mg/dL 7-21 (BEAKER) (test dvyh=469) CREATININE (BEAKER) (test 8.78 mg/dL 0.57-1.25 byde=659) GLUCOSE RANDOM (BEAKER) 154 mg/dL 70-105 (test icbu=761) CALCIUM (BEAKER) (test 9.2 mg/dL 8.4-10.2 krqv=611) AST (SGOT) (BEAKER) (test 78 U/L 5-34 oxga=402) ALT (SGPT) (BEAKER) (test 320 U/L 6-55 twgu=366) EGFR (BEAKER) (test 6 mL/min/1.73 sq m ESTIMATED GFR IS NOT fpsz=6234) ACCURATE CREATININE CLEARANCE IN PREDICTING GLOMERULAR FILTRATION RATE. ESTIMATED GFR IS NOT APPLICABLE FOR DIALYSIS PATIENTS. Specimen moderately [id number] 03:26:00 Test Item Value Reference Range Comments PHOSPHORUS (BEAKER) (test skvy=986) 9.7 mg/dL 2.3-4.7 PROTHROMBIN [id number] 03:20:00 Test Item Value Reference Range Comments PROTIME (BEAKER) (test wmof=132) 15.3 seconds 11.9-14.2 INR (BEAKER) (test ofwo=381) 1.3 <=5.9 Effective 07/29/2018: PT Reference Range ChangeNew: 11.9-14.2 Previous: 11.7- 14.7RECOMMENDED COUMADIN/WARFARIN INR THERAPY RANGESSTANDARD DOSE: 2.0-3.0 Includes: PROPHYLAXIS for venous thrombosis, systemic embolization; TREATMENT for venous thrombosis and/or pulmonary embolus.HIGH RISK: Target INR is2.5-3.5 for patients wiht mechanical heart valves.While on warfarin.[id number] 02:42:00 Test Item Value Reference Range Comments MAGNESIUM (BEAKER) (test jghs=769) 2.6 mg/dL 1.6-2.6 [id number] 02:37:00 Test Item Value Reference Range Comments PARTIAL THROMBOPLASTIN TIME (BEAKER) (test 59.7 seconds 22.5-36.0 kfcj=625) POCT-GLUCOSE [id number] 21:25:00 Test Item Value Reference Range Comments POC-GLUCOSE METER (BEAKER) 153 mg/dL 70-110 TESTED AT [address] (test zehw=9296) [place] [address] POCT-GLUCOSE [id number] 18:23:00 Test Item Value Reference Range Comments POC-GLUCOSE METER (BEAKER) 179 mg/dL 70-110 TESTED AT [address] (test nrkt=7044) [place] [address] POCT-GLUCOSE [id number] 14:45:00 Test Item Value Reference Range Comments POC-GLUCOSE METER (BEAKER) 198 mg/dL 70-110 TESTED AT [address] (test womo=7617) [place] [id number] POCT-GLUCOSE [id number] 09:20:00 Test Item Value Reference Range Comments POC-GLUCOSE METER (BEAKER) 196 mg/dL 70-110 TESTED AT [address] (test lnsi=8292) [place] [address] CBC W/PLT COUNT & AUTO [id number] 05:23:00 Test Item Value Reference Range Comments WHITE BLOOD CELL COUNT (BEAKER) (test rhmf=454) 13.2 K/ L 3.5-10.5 RED BLOOD CELL COUNT (BEAKER) (test bfjp=802) 4.01 M/ L 4.63-6.08 HEMOGLOBIN (BEAKER) (test ptlp=091) 12.6 GM/DL 13.7-17.5 HEMATOCRIT (BEAKER) (test cojf=841) 39.0 % 40.1-51.0 MEAN CORPUSCULAR VOLUME (BEAKER) (test neau=545) 97.3 fL 79.0-92.2 MEAN CORPUSCULAR HEMOGLOBIN (BEAKER) (test 31.4 pg 25.7-32.2 bqnz=824) MEAN CORPUSCULAR HEMOGLOBIN CONC (BEAKER) (test 32.3 GM/DL 32.3-36.5 smwy=821) RED CELL DISTRIBUTION WIDTH (BEAKER) (test 20.0 % 11.6-14.4 jest=194) PLATELET COUNT (BEAKER) (test kakd=461) 112 K/CU MM 150-450 MEAN PLATELET VOLUME (BEAKER) (test iltn=579) 11.9 fL 9.4-12.4 NUCLEATED RED BLOOD CELLS (BEAKER) (test 0 /100 WBC 0-0 sttc=782) NEUTROPHILS RELATIVE PERCENT (BEAKER) (test 84 % ynrd=557) LYMPHOCYTES RELATIVE PERCENT (BEAKER) (test 4 % wfaf=722) MONOCYTES RELATIVE PERCENT (BEAKER) (test 10 % yhth=025) EOSINOPHILS RELATIVE PERCENT (BEAKER) (test 1 % rtxk=259) BASOPHILS RELATIVE PERCENT (BEAKER) (test 0 % ailm=967) NEUTROPHILS ABSOLUTE COUNT (BEAKER) (test 11.13 K/ L 1.78-5.38 meni=944) LYMPHOCYTES ABSOLUTE COUNT (BEAKER) (test 0.55 K/ L 1.32-3.57 bdou=456) MONOCYTES ABSOLUTE COUNT (BEAKER) (test 1.27 K/ L 0.30-0.82 gdnr=787) EOSINOPHILS ABSOLUTE COUNT (BEAKER) (test 0.10 K/ L 0.04-0.54 cdaf=598) BASOPHILS ABSOLUTE COUNT (BEAKER) (test 0.02 K/ L 0.01-0.08 yxsc=272) IMMATURE GRANULOCYTES-RELATIVE PERCENT (BEAKER) 1 % 0-1 (test pmgs=7397) [id number] 05:14:00 Test Item Value Reference Range Comments PHOSPHORUS (BEAKER) (test rqac=596) 9.0 mg/dL 2.3-4.7 COMPREHENSIVE METABOLIC [id number] 05:11:00 Test Item Value Reference Range Comments TOTAL PROTEIN (BEAKER) 6.1 gm/dL 6.0-8.3 (test fkmk=369) ALBUMIN (BEAKER) (test 3.2 g/dL 3.5-5.0 knrx=8009) ALKALINE PHOSPHATASE 74 U/L 40-150 (BEAKER) (test yvab=499) BILIRUBIN TOTAL (BEAKER) 4.8 mg/dL 0.2-1.2 (test jufz=678) SODIUM (BEAKER) (test 134 meq/L 136-145 rbdw=997) POTASSIUM (BEAKER) (test 4.6 meq/L 3.5-5.1 twya=733) CHLORIDE (BEAKER) (test 98 meq/L 98-107 fidl=421) CO2 (BEAKER) (test 21 meq/L 22-29 cxgy=233) BLOOD UREA NITROGEN 72 mg/dL 7-21 (BEAKER) (test ntzf=752) CREATININE (BEAKER) (test 8.05 mg/dL 0.57-1.25 uaru=485) GLUCOSE RANDOM (BEAKER) 176 mg/dL 70-105 (test mkvm=941) CALCIUM (BEAKER) (test 9.4 mg/dL 8.4-10.2 ssgo=652) AST (SGOT) (BEAKER) (test 103 U/L 5-34 ahar=499) ALT (SGPT) (BEAKER) (test 471 U/L 6-55 fhuv=533) EGFR (BEAKER) (test 7 mL/min/1.73 sq m ESTIMATED GFR IS NOT iezw=2590) ACCURATE CREATININE CLEARANCE IN PREDICTING GLOMERULAR FILTRATION RATE. ESTIMATED GFR IS NOT APPLICABLE FOR DIALYSIS PATIENTS. Specimen moderately [id number] 05:09:00 Test Item Value Reference Range Comments MAGNESIUM (BEAKER) (test jogk=746) 2.4 mg/dL 1.6-2.6 [id number] 05:04:00 Test Item Value Reference Range Comments PARTIAL THROMBOPLASTIN TIME (BEAKER) (test 68.6 seconds 22.5-36.0 kyqi=740) While on warfarin.PROTHROMBIN [id number] 05:03:00 Test Item Value Reference Range Comments PROTIME (BEAKER) (test awnn=873) 16.5 seconds 11.9-14.2 INR (BEAKER) (test frdo=629) 1.4 <=5.9 Effective 07/29/2018: PT Reference Range ChangeNew: 11.9-14.2 Previous: 11.7- 14.7RECOMMENDED COUMADIN/WARFARIN INR THERAPY RANGESSTANDARD DOSE: 2.0-3.0 Includes: PROPHYLAXIS for venous thrombosis, systemic embolization; TREATMENT for venous thrombosis and/or pulmonary embolus.HIGH RISK: Target INR is2.5-3.5 for patients wiht mechanical heart valves.While on warfarin.POCT-GLUCOSE [id number] 17:50:00 Test Item Value Reference Range Comments POC-GLUCOSE METER (BEAKER) 202 mg/dL 70-110 TESTED AT [address] (test vsrn=9144) [place] [id number] POCT-GLUCOSE [id number] 11:57:00 Test Item Value Reference Range Comments POC-GLUCOSE METER (BEAKER) 144 mg/dL 70-110 TESTED AT [address] (test gqkh=4229) [place] [id number] POCT-GLUCOSE [id number] 07:43:00 Test Item Value Reference Range Comments POC-GLUCOSE METER (BEAKER) 143 mg/dL 70-110 TESTED AT [address] (test iuwc=0501) [facility] [address] COMPREHENSIVE METABOLIC [id number] 06:25:00 Test Item Value Reference Range Comments TOTAL PROTEIN (BEAKER) 5.8 gm/dL 6.0-8.3 (test akxc=042) ALBUMIN (BEAKER) (test 3.1 g/dL 3.5-5.0 xkou=2690) ALKALINE PHOSPHATASE 73 U/L 40-150 (BEAKER) (test gqtb=009) BILIRUBIN TOTAL (BEAKER) 3.9 mg/dL 0.2-1.2 (test ujto=618) SODIUM (BEAKER) (test 139 meq/L 136-145 odco=117) POTASSIUM (BEAKER) (test 4.5 meq/L 3.5-5.1 sjgu=034) CHLORIDE (BEAKER) (test 102 meq/L 98-107 coig=881) CO2 (BEAKER) (test 23 meq/L 22-29 pxda=251) BLOOD UREA NITROGEN 54 mg/dL 7-21 (BEAKER) (test yngx=803) CREATININE (BEAKER) (test 6.73 mg/dL 0.57-1.25 loek=075) GLUCOSE RANDOM (BEAKER) 134 mg/dL 70-105 (test fzjl=862) CALCIUM (BEAKER) (test 9.3 mg/dL 8.4-10.2 xgup=452) AST (SGOT) (BEAKER) (test 140 U/L 5-34 aflp=738) ALT (SGPT) (BEAKER) (test 598 U/L 6-55 fgiy=215) EGFR (BEAKER) (test 8 mL/min/1.73 sq m ESTIMATED GFR IS NOT mfoy=3805) ACCURATE CREATININE CLEARANCE IN PREDICTING GLOMERULAR FILTRATION RATE. ESTIMATED GFR IS NOT APPLICABLE FOR DIALYSIS PATIENTS. Specimen slightly ictericHEPATIC FUNCTION [id number] 06:15:00 Test Item Value Reference Range Comments TOTAL PROTEIN (BEAKER) (test umsf=282) 5.8 gm/dL 6.0-8.3 ALBUMIN (BEAKER) (test yfhm=6614) 3.1 g/dL 3.5-5.0 BILIRUBIN TOTAL (BEAKER) (test psfr=564) 3.9 mg/dL 0.2-1.2 BILIRUBIN DIRECT (BEAKER) (test djdm=909) 2.4 mg/dL 0.1-0.5 ALKALINE PHOSPHATASE (BEAKER) (test rabk=375) 73 U/L 40-150 AST (SGOT) (BEAKER) (test jnma=493) 140 U/L 5-34 ALT (SGPT) (BEAKER) (test tuku=576) 598 U/L 6-55 Specimen slightly ictericCBC W/PLT COUNT & AUTO [id number] 06:01 :00 Test Item Value Reference Range Comments WHITE BLOOD CELL COUNT (BEAKER) (test zvzp=300) 12.1 K/ L 3.5-10.5 RED BLOOD CELL COUNT (BEAKER) (test otoo=478) 4.15 M/ L 4.63-6.08 HEMOGLOBIN (BEAKER) (test pgsq=214) 12.9 GM/DL 13.7-17.5 HEMATOCRIT (BEAKER) (test izks=192) 40.9 % 40.1-51.0 MEAN CORPUSCULAR VOLUME (BEAKER) (test pxiv=740) 98.6 fL 79.0-92.2 MEAN CORPUSCULAR HEMOGLOBIN (BEAKER) (test 31.1 pg 25.7-32.2 njsf=196) MEAN CORPUSCULAR HEMOGLOBIN CONC (BEAKER) (test 31.5 GM/DL 32.3-36.5 mwds=459) RED CELL DISTRIBUTION WIDTH (BEAKER) (test 20.1 % 11.6-14.4 bxwm=496) PLATELET COUNT (BEAKER) (test fgzm=347) 105 K/CU MM 150-450 MEAN PLATELET VOLUME (BEAKER) (test ehbw=592) 11.2 fL 9.4-12.4 NUCLEATED RED BLOOD CELLS (BEAKER) (test 1 /100 WBC 0-0 lumx=642) NEUTROPHILS RELATIVE PERCENT (BEAKER) (test 85 % otde=254) LYMPHOCYTES RELATIVE PERCENT (BEAKER) (test 4 % lwjs=957) MONOCYTES RELATIVE PERCENT (BEAKER) (test 9 % fnmj=140) EOSINOPHILS RELATIVE PERCENT (BEAKER) (test 1 % kjrz=553) BASOPHILS RELATIVE PERCENT (BEAKER) (test 0 % gnik=580) NEUTROPHILS ABSOLUTE COUNT (BEAKER) (test 10.25 K/ L 1.78-5.38 lxmi=514) LYMPHOCYTES ABSOLUTE COUNT (BEAKER) (test 0.46 K/ L 1.32-3.57 fblx=718) MONOCYTES ABSOLUTE COUNT (BEAKER) (test 1.13 K/ L 0.30-0.82 fzna=659) EOSINOPHILS ABSOLUTE COUNT (BEAKER) (test 0.10 K/ L 0.04-0.54 wgqe=974) BASOPHILS ABSOLUTE COUNT (BEAKER) (test 0.03 K/ L 0.01-0.08 jmqt=766) IMMATURE GRANULOCYTES-RELATIVE PERCENT (BEAKER) 1 % 0-1 (test chgs=6818) [id number] 06:00:00 Test Item Value Reference Range Comments PARTIAL THROMBOPLASTIN TIME (BEAKER) (test 71.3 seconds 22.5-36.0 bfnb=468) While on warfarin.PROTHROMBIN [id number] 05:59:00 Test Item Value Reference Range Comments PROTIME (BEAKER) (test mtss=570) 18.5 seconds 11.9-14.2 INR (BEAKER) (test vukv=790) 1.6 <=5.9 Effective 07/29/2018: PT Reference Range ChangeNew: 11.9-14.2 Previous: 11.7- 14.7RECOMMENDED COUMADIN/WARFARIN INR THERAPY RANGESSTANDARD DOSE: 2.0-3.0 Includes: PROPHYLAXIS for venous thrombosis, systemic embolization; TREATMENT for venous thrombosis and/or pulmonary embolus.HIGH RISK: Target INR is2.5-3.5 for patients wiht mechanical heart valves.While on warfarin.BLOOD [id number] 02:00:00 Test Item Value Reference Range Comments CULTURE (BEAKER) (test cwtf=6810) No growth in 5 days [id number] 00:14:00 Test Item Value Reference Range Comments PARTIAL THROMBOPLASTIN TIME (BEAKER) (test 90.2 seconds 22.5-36.0 krtr=973) POCT-GLUCOSE [id number] 23:48:00 Test Item Value Reference Range Comments POC-GLUCOSE METER (BEAKER) 130 mg/dL 70-110 TESTED AT [place] [id number] [facility] (test zgzk=1225) [facility] [address] POCT-GLUCOSE [id number] 18:15:00 Test Item Value Reference Range Comments POC-GLUCOSE METER (BEAKER) 122 mg/dL 70-110 TESTED AT [address] (test vurr=4066) [facility] [address] [id number] 17:13:00 Test Item Value Reference Range Comments PARTIAL THROMBOPLASTIN TIME (BEAKER) (test 110.6 seconds 22.5-36.0 ystd=383) RAD, CHEST, 1 VIEW, NON [id number] 15:38:00Reason for exam:->Central line placementShould this be [...] MDReport Verified Date/Time: 07/31/2018 15:38:10 Reading Location: [facility] C013W Consult Reading Room [id number] 11:49:00 Test Item Value Reference Range Comments PARTIAL THROMBOPLASTIN TIME (BEAKER) (test 88.8 seconds 22.5-36.0 hjbl=218) POCT-GLUCOSE [id number] 11:46:00 Test Item Value Reference Range Comments POC-GLUCOSE METER (BEAKER) 145 mg/dL 70-110 TESTED AT [address] (test fewq=5975) [facility] [address] CT, BRAIN, WITHOUT [id number] 10:24:00FINAL REPORT CT Head without contrast CLINICAL [...] Verified Date/Time: 07/31/2018 10 :24:48 Reading Location: [facility] C013V Neuro Reading Room [id number] 10:15:00 Test Item Value Reference Range Comments AMMONIA (BEAKER) (test kfof=611) 46 mol/L 18-72 BLOOD GAS, [id number] 08:44:00 Test Item Value Reference Range Comments PH ARTERIAL (BEAKER) (test hfib=188) 7.37 7.35-7.45 PCO2 ARTERIAL (BEAKER) (test ukhg=917) 44 mmHg 35-45 PO2 ARTERIAL (BEAKER) (test hywl=918) 229 mmHg 80-90 O2 SATURATION ARTERIAL (BEAKER) (test wqkk=684) 99.5 % 96.0-97.0 HCO3 ARTERIAL (BEAKER) (test mnit=162) 25 mmol/L 21-29 BASE EXCESS ARTERIAL (BEAKER) (test yucm=777) -0.7 mmol/L -2.0-3.0 PATIENT TEMPERATURE (BEAKER) (test ptzw=5411) 37.0 C FIO2 (BEAKER) (test iklm=2888) 21.0 % POCT-GLUCOSE [id number] 08:22:00 Test Item Value Reference Range Comments POC-GLUCOSE METER (BEAKER) 170 mg/dL 70-110 TESTED AT [address] (test wrot=0782) [facility] [address] POCT-GLUCOSE [id number] 05:39:00 Test Item Value Reference Range Comments POC-GLUCOSE METER (BEAKER) 163 mg/dL 70-110 TESTED AT [address] (test qkcj=1743) [facility] [id number] CBC W/PLT COUNT & AUTO [id number] 05:18:00 Test Item Value Reference Range Comments WHITE BLOOD CELL COUNT (BEAKER) (test jevl=338) 11.9 K/ L 3.5-10.5 RED BLOOD CELL COUNT (BEAKER) (test ckcg=560) 3.71 M/ L 4.63-6.08 HEMOGLOBIN (BEAKER) (test dnhj=236) 11.4 GM/DL 13.7-17.5 HEMATOCRIT (BEAKER) (test fiiw=719) 35.1 % 40.1-51.0 MEAN CORPUSCULAR VOLUME (BEAKER) (test aztr=204) 94.6 fL 79.0-92.2 MEAN CORPUSCULAR HEMOGLOBIN (BEAKER) (test 30.7 pg 25.7-32.2 luyc=695) MEAN CORPUSCULAR HEMOGLOBIN CONC (BEAKER) (test 32.5 GM/DL 32.3-36.5 hydw=573) RED CELL DISTRIBUTION WIDTH (BEAKER) (test 18.1 % 11.6-14.4 vgya=379) PLATELET COUNT (BEAKER) (test ufgt=033) 112 K/CU MM 150-450 MEAN PLATELET VOLUME (BEAKER) (test jybu=901) 10.8 fL 9.4-12.4 NUCLEATED RED BLOOD CELLS (BEAKER) (test 1 /100 WBC 0-0 xhqz=315) NEUTROPHILS RELATIVE PERCENT (BEAKER) (test 81 % qpnx=681) LYMPHOCYTES RELATIVE PERCENT (BEAKER) (test 7 % roor=090) MONOCYTES RELATIVE PERCENT (BEAKER) (test 9 % dwth=571) EOSINOPHILS RELATIVE PERCENT (BEAKER) (test 1 % atnh=922) BASOPHILS RELATIVE PERCENT (BEAKER) (test 0 % ayob=533) NEUTROPHILS ABSOLUTE COUNT (BEAKER) (test 9.72 K/ L 1.78-5.38 zewn=942) LYMPHOCYTES ABSOLUTE COUNT (BEAKER) (test 0.86 K/ L 1.32-3.57 oydl=876) MONOCYTES ABSOLUTE COUNT (BEAKER) (test 1.09 K/ L 0.30-0.82 ngop=104) EOSINOPHILS ABSOLUTE COUNT (BEAKER) (test 0.09 K/ L 0.04-0.54 yzjx=199) BASOPHILS ABSOLUTE COUNT (BEAKER) (test 0.01 K/ L 0.01-0.08 qwxi=760) IMMATURE GRANULOCYTES-RELATIVE PERCENT (BEAKER) 1 % 0-1 (test nsgq=1790) [id number] 05:12:00 Test Item Value Reference Range Comments PHOSPHORUS (BEAKER) (test 10.1 mg/dL 2.3-4.7 Specimen slightly hemolyzed mpjh=431) COMPREHENSIVE METABOLIC [id number] 05:12:00 Test Item Value Reference Range Comments TOTAL PROTEIN (BEAKER) 5.4 gm/dL 6.0-8.3 Specimen slightly (test uspo=437) hemolyzed ALBUMIN (BEAKER) (test 3.0 g/dL 3.5-5.0 Specimen slightly pyif=0054) hemolyzed ALKALINE PHOSPHATASE 66 U/L 40-150 (BEAKER) (test uelm=925) BILIRUBIN TOTAL (BEAKER) 3.6 mg/dL 0.2-1.2 Specimen slightly (test xfvn=544) hemolyzed SODIUM (BEAKER) (test 133 meq/L 136-145 tkmm=738) POTASSIUM (BEAKER) (test 4.0 meq/L 3.5-5.1 Specimen slightly ekgn=468) hemolyzed CHLORIDE (BEAKER) (test 95 meq/L 98-107 mzhu=040) CO2 (BEAKER) (test 21 meq/L 22-29 mdqp=301) BLOOD UREA NITROGEN 86 mg/dL 7-21 (BEAKER) (test gzsd=997) CREATININE (BEAKER) (test 8.92 mg/dL 0.57-1.25 Specimen slightly glcr=125) hemolyzed GLUCOSE RANDOM (BEAKER) 152 mg/dL 70-105 (test owgj=778) CALCIUM (BEAKER) (test 9.2 mg/dL 8.4-10.2 swwt=047) AST (SGOT) (BEAKER) (test 182 U/L 5-34 Specimen slightly brlu=513) hemolyzed ALT (SGPT) (BEAKER) (test 694 U/L 6-55 Specimen slightly mfhp=187) hemolyzed EGFR (BEAKER) (test 6 mL/min/1.73 sq m ESTIMATED GFR IS NOT ultn=7738) ACCURATE CREATININE CLEARANCE IN PREDICTING GLOMERULAR FILTRATION RATE. ESTIMATED GFR IS NOT APPLICABLE FOR DIALYSIS PATIENTS. Specimen slightly [id number] 05:08:00 Test Item Value Reference Range Comments MAGNESIUM (BEAKER) (test 2.7 mg/dL 1.6-2.6 Specimen slightly hemolyzed yhdd=539) [id number] 04:52:00 Test Item Value Reference Range Comments PARTIAL THROMBOPLASTIN TIME (BEAKER) (test 70.9 seconds 22.5-36.0 wsmr=396) While on warfarin.PROTHROMBIN TIME/[id number] 04:51:00 Test Item Value Reference Range Comments PROTIME (BEAKER) (test ebjj=930) 19.8 seconds 11.9-14.2 INR (BEAKER) (test fmrx=851) 1.8 <=5.9 Effective 07/29/2018: PT Reference Range ChangeNew: 11.9-14.2 Previous: 11.7- 14.7RECOMMENDED COUMADIN/WARFARIN INR THERAPY RANGESSTANDARD DOSE: 2.0-3.0 Includes: PROPHYLAXIS for venous thrombosis, systemic embolization; TREATMENT for venous thrombosis and/or pulmonary embolus.HIGH RISK: Target INR is2.5-3.5 for patients wiht mechanical heart valves.While on warfarin.POCT-GLUCOSE [id number] 23:36:00 Test Item Value Reference Range Comments POC-GLUCOSE METER (BEAKER) 190 mg/dL 70-110 TESTED AT [address] (test cikz=3612) [place] [address] [id number] 22:33:00 Test Item Value Reference Range Comments PARTIAL THROMBOPLASTIN TIME (BEAKER) (test 57.7 seconds 22.5-36.0 lrqc=806) POCT-GLUCOSE [id number] 18:20:00 Test Item Value Reference Range Comments POC-GLUCOSE METER (BEAKER) 170 mg/dL 70-110 TESTED AT [address] (test yvdw=3339) [place] [address] [id number] 16:52:00 Test Item Value Reference Range Comments PARTIAL THROMBOPLASTIN TIME (BEAKER) (test 24.5 seconds 22.5-36.0 usls=880) 6 hours after starting heparin infusion and as indicated per sliding scalePOCT- GLUCOSE [id number] 12:30:00 Test Item Value Reference Range Comments POC-GLUCOSE METER (BEAKER) 160 mg/dL 70-110 TESTED AT [address] (test waea=3285) [place] [address] HIV-1 PCR, [id number] 10:23:00 Test Item Value Reference Range Comments HIV-1 NUMERIC RESULT (BEAKER) (test sxky=3628) 1060 Cp/mL <20 This test uses a Real-Time Polymerase Chain Reaction (RT-PCR) methodology to detect a highly conserved region of the HIV-1 gag gene and was performed using the OLESYA AmpliPrep/OLESYA TaqMan HIV-1 test kit version 2.0 ([employer]Reportable range for this assay is 20 - 10,000,000 copies per mL (1.3 - 7.0 Log copies/mL).COMPREHENSIVE METABOLIC [id number] 06:59:00 Test Item Value Reference Range Comments TOTAL PROTEIN (BEAKER) 6.1 gm/dL 6.0-8.3 Specimen slightly (test hhof=155) hemolyzed ALBUMIN (BEAKER) (test 3.4 g/dL 3.5-5.0 Specimen slightly zxaj=0162) hemolyzed ALKALINE PHOSPHATASE 75 U/L 40-150 (BEAKER) (test hanp=135) BILIRUBIN TOTAL (BEAKER) 3.7 mg/dL 0.2-1.2 Specimen slightly (test ahun=877) hemolyzed SODIUM (BEAKER) (test 136 meq/L 136-145 tnwl=492) POTASSIUM (BEAKER) (test 4.3 meq/L 3.5-5.1 Specimen slightly kgxh=868) hemolyzed CHLORIDE (BEAKER) (test 97 meq/L 98-107 jcyw=033) CO2 (BEAKER) (test 20 meq/L 22-29 zpxq=940) BLOOD UREA NITROGEN 66 mg/dL 7-21 (BEAKER) (test gpwv=270) CREATININE (BEAKER) (test 7.56 mg/dL 0.57-1.25 Specimen slightly ngnn=627) hemolyzed GLUCOSE RANDOM (BEAKER) 139 mg/dL 70-105 (test twug=499) CALCIUM (BEAKER) (test 9.9 mg/dL 8.4-10.2 mcyx=846) AST (SGOT) (BEAKER) (test 376 U/L 5-34 Specimen slightly jmmw=331) hemolyzed ALT (SGPT) (BEAKER) (test 1109 U/L 6-55 Specimen slightly oifo=797) hemolyzed EGFR (BEAKER) (test 7 mL/min/1.73 sq m ESTIMATED GFR IS NOT nzcn=3363) ACCURATE CREATININE CLEARANCE IN PREDICTING GLOMERULAR FILTRATION RATE. ESTIMATED GFR IS NOT APPLICABLE FOR DIALYSIS PATIENTS. Specimen slightly [id number] 06:51:00 Test Item Value Reference Range Comments MAGNESIUM (BEAKER) (test 2.4 mg/dL 1.6-2.6 Specimen slightly hemolyzed hyep=075) PROTHROMBIN [id number] 06:44:00 Test Item Value Reference Range Comments PROTIME (BEAKER) (test akyf=393) 20.7 seconds 11.9-14.2 INR (BEAKER) (test qbzn=407) 1.9 <=5.9 Effective 07/29/2018: PT Reference Range ChangeNew: 11.9-14.2 Previous: 11.7- 14.7RECOMMENDED COUMADIN/WARFARIN INR THERAPY RANGESSTANDARD DOSE: 2.0-3.0 Includes: PROPHYLAXIS for venous thrombosis, systemic embolization; TREATMENT for venous thrombosis and/or pulmonary embolus.HIGH RISK: Target INR is2.5-3.5 for patients wiht mechanical heart valves.[id number] 06:37:00 Test Item Value Reference Range Comments AMMONIA (BEAKER) (test 65 mol/L 18-72 Specimen slightly hemolyzed nxja=121) CBC W/PLT COUNT & AUTO [id number] 06:31:00 Test Item Value Reference Range Comments WHITE BLOOD CELL COUNT (BEAKER) (test zpmu=503) 15.7 K/ L 3.5-10.5 RED BLOOD CELL COUNT (BEAKER) (test agkt=035) 3.96 M/ L 4.63-6.08 HEMOGLOBIN (BEAKER) (test hsvl=263) 12.2 GM/DL 13.7-17.5 HEMATOCRIT (BEAKER) (test qnhs=094) 37.6 % 40.1-51.0 MEAN CORPUSCULAR VOLUME (BEAKER) (test tqgq=790) 94.9 fL 79.0-92.2 MEAN CORPUSCULAR HEMOGLOBIN (BEAKER) (test 30.8 pg 25.7-32.2 pmvs=504) MEAN CORPUSCULAR HEMOGLOBIN CONC (BEAKER) (test 32.4 GM/DL 32.3-36.5 vcab=051) RED CELL DISTRIBUTION WIDTH (BEAKER) (test 17.7 % 11.6-14.4 zhif=209) PLATELET COUNT (BEAKER) (test atse=168) 157 K/CU MM 150-450 MEAN PLATELET VOLUME (BEAKER) (test xhqh=395) 11.1 fL 9.4-12.4 NUCLEATED RED BLOOD CELLS (BEAKER) (test 2 /100 WBC 0-0 yqao=612) NEUTROPHILS RELATIVE PERCENT (BEAKER) (test 84 % xcki=006) LYMPHOCYTES RELATIVE PERCENT (BEAKER) (test 5 % dnjc=506) MONOCYTES RELATIVE PERCENT (BEAKER) (test 10 % nnss=691) EOSINOPHILS RELATIVE PERCENT (BEAKER) (test 0 % dndj=648) BASOPHILS RELATIVE PERCENT (BEAKER) (test 0 % ylth=735) NEUTROPHILS ABSOLUTE COUNT (BEAKER) (test 13.20 K/ L 1.78-5.38 iddd=117) LYMPHOCYTES ABSOLUTE COUNT (BEAKER) (test 0.73 K/ L 1.32-3.57 irkf=294) MONOCYTES ABSOLUTE COUNT (BEAKER) (test 1.51 K/ L 0.30-0.82 nqyo=238) EOSINOPHILS ABSOLUTE COUNT (BEAKER) (test 0.05 K/ L 0.04-0.54 vqub=350) BASOPHILS ABSOLUTE COUNT (BEAKER) (test 0.03 K/ L 0.01-0.08 pier=459) IMMATURE GRANULOCYTES-RELATIVE PERCENT (BEAKER) 1 % 0-1 (test nbmp=2037) POCT-GLUCOSE [id number] 05:38:00 Test Item Value Reference Range Comments POC-GLUCOSE METER (BEAKER) 154 mg/dL 70-110 TESTED AT [address] (test eibs=4558) [place] [id number] POCT-GLUCOSE [id number] 00:02:00 Test Item Value Reference Range Comments POC-GLUCOSE METER (BEAKER) 160 mg/dL 70-110 TESTED AT [address] (test kbva=9811) [place] [id number] POCT-GLUCOSE [id number] 17:15:00 Test Item Value Reference Range Comments POC-GLUCOSE METER (BEAKER) 179 mg/dL 70-110 TESTED AT [address] (test dvvt=6796) [facility] [address] POCT-GLUCOSE [id number] 05:46:00 Test Item Value Reference Range Comments POC-GLUCOSE METER (BEAKER) 126 mg/dL 70-110 TESTED AT [address] (test eikq=2644) [facility] [address] CBC W/PLT COUNT & AUTO [id number] 04:13:00 Test Item Value Reference Range Comments WHITE BLOOD CELL COUNT (BEAKER) (test pnph=825) 16.9 K/ L 3.5-10.5 RED BLOOD CELL COUNT (BEAKER) (test uzwv=955) 4.16 M/ L 4.63-6.08 HEMOGLOBIN (BEAKER) (test xcjm=049) 13.1 GM/DL 13.7-17.5 HEMATOCRIT (BEAKER) (test rqyh=163) 40.2 % 40.1-51.0 MEAN CORPUSCULAR VOLUME (BEAKER) (test ncay=811) 96.6 fL 79.0-92.2 MEAN CORPUSCULAR HEMOGLOBIN (BEAKER) (test 31.5 pg 25.7-32.2 utyb=202) MEAN CORPUSCULAR HEMOGLOBIN CONC (BEAKER) (test 32.6 GM/DL 32.3-36.5 iqta=487) RED CELL DISTRIBUTION WIDTH (BEAKER) (test 17.1 % 11.6-14.4 cpwv=718) PLATELET COUNT (BEAKER) (test dahw=398) 202 K/CU MM 150-450 MEAN PLATELET VOLUME (BEAKER) (test lvoh=828) 11.0 fL 9.4-12.4 NUCLEATED RED BLOOD CELLS (BEAKER) (test 2 /100 WBC 0-0 nbxp=726) NEUTROPHILS RELATIVE PERCENT (BEAKER) (test 85 % ulgd=712) LYMPHOCYTES RELATIVE PERCENT (BEAKER) (test 6 % hlcj=122) MONOCYTES RELATIVE PERCENT (BEAKER) (test 8 % rqrl=292) EOSINOPHILS RELATIVE PERCENT (BEAKER) (test 0 % tmlz=511) BASOPHILS RELATIVE PERCENT (BEAKER) (test 0 % ltuu=001) NEUTROPHILS ABSOLUTE COUNT (BEAKER) (test 14.25 K/ L 1.78-5.38 trqr=120) LYMPHOCYTES ABSOLUTE COUNT (BEAKER) (test 0.97 K/ L 1.32-3.57 puot=829) MONOCYTES ABSOLUTE COUNT (BEAKER) (test 1.30 K/ L 0.30-0.82 agdv=388) EOSINOPHILS ABSOLUTE COUNT (BEAKER) (test 0.02 K/ L 0.04-0.54 bkxz=489) BASOPHILS ABSOLUTE COUNT (BEAKER) (test 0.04 K/ L 0.01-0.08 petm=596) IMMATURE GRANULOCYTES-RELATIVE PERCENT (BEAKER) 2 % 0-1 (test mket=2977) TSH/FREE T4 IF [id number] 04:05:00 Test Item Value Reference Range Comments THYROID STIMULATING HORMONE (BEAKER) (test 0.85 uIU/mL 0.35-4.94 lsdg=774) [id number] 03:41:00 Test Item Value Reference Range Comments MAGNESIUM (BEAKER) (test lorn=062) 2.5 mg/dL 1.6-2.6 COMPREHENSIVE METABOLIC [id number] 03:41:00 Test Item Value Reference Range Comments TOTAL PROTEIN (BEAKER) 6.4 gm/dL 6.0-8.3 (test yqtr=810) ALBUMIN (BEAKER) (test 3.6 g/dL 3.5-5.0 bopp=8755) ALKALINE PHOSPHATASE 70 U/L 40-150 (BEAKER) (test vwhk=810) BILIRUBIN TOTAL (BEAKER) 3.3 mg/dL 0.2-1.2 (test ampc=339) SODIUM (BEAKER) (test 136 meq/L 136-145 wvln=175) POTASSIUM (BEAKER) (test 5.2 meq/L 3.5-5.1 pwik=990) CHLORIDE (BEAKER) (test 92 meq/L 98-107 vckf=164) CO2 (BEAKER) (test 18 meq/L 22-29 iijr=146) BLOOD UREA NITROGEN 85 mg/dL 7-21 (BEAKER) (test ekli=864) CREATININE (BEAKER) (test 9.03 mg/dL 0.57-1.25 cngp=990) GLUCOSE RANDOM (BEAKER) 130 mg/dL 70-105 (test uqyx=665) CALCIUM (BEAKER) (test 10.0 mg/dL 8.4-10.2 ffir=721) AST (SGOT) (BEAKER) (test 859 U/L 5-34 ugtg=220) ALT (SGPT) (BEAKER) (test 1588 U/L 6-55 zmqr=948) EGFR (BEAKER) (test 6 mL/min/1.73 sq m ESTIMATED GFR IS NOT ruhu=8679) ACCURATE CREATININE CLEARANCE IN PREDICTING GLOMERULAR FILTRATION RATE. ESTIMATED GFR IS NOT APPLICABLE FOR DIALYSIS PATIENTS. Specimen slightly ictericPROTHROMBIN [id number] 03:29:00 Test Item Value Reference Range Comments PROTIME (BEAKER) (test kjeo=445) 25.5 seconds 11.9-14.2 INR (BEAKER) (test oiuu=668) 2.5 <=5.9 RECOMMENDED COUMADIN/WARFARIN INR THERAPY RANGESSTANDARD DOSE: 2.0 - 3.0 Includes: PROPHYLAXIS forvenous thrombosis, systemic embolization; TREATMENT for venous thrombosis and/or pulmonary embolus.HIGH RISK: Target INR is 2.5-3.5 for patients with mechanical heart valves.POCT-GLUCOSE [id number] 23:42:00 Test Item Value Reference Range Comments POC-GLUCOSE METER (BEAKER) 79 mg/dL 70-110 TESTED AT [place] [id number] [facility] (test vcqj=0131) [facility] [address] POCT-GLUCOSE [id number] 23:34:00 Test Item Value Reference Range Comments POC-GLUCOSE METER (BEAKER) 75 mg/dL 70-110 TESTED AT [address] (test xjhv=2236) [facility] [address] POCT-GLUCOSE [id number] 18:28:00 Test Item Value Reference Range Comments POC-GLUCOSE METER (BEAKER) 87 mg/dL 70-110 TESTED AT [address] (test szky=2877) [place] [id number] LACTIC ACID, [id number] 14:47:00 Test Item Value Reference Range Comments LACTATE BLOOD VENOUS (2) (BEAKER) (test 5.3 mmol/L 0.5-2.2 cskn=6177) Specimen slightly ictericBASIC METABOLIC [id number] 14:40:00 Test Item Value Reference Range Comments SODIUM (BEAKER) (test 138 meq/L 136-145 ogcb=416) POTASSIUM (BEAKER) (test 5.0 meq/L 3.5-5.1 Specimen slightly oewr=157) hemolyzed CHLORIDE (BEAKER) (test 94 meq/L 98-107 gbhs=617) CO2 (BEAKER) (test 21 meq/L 22-29 bekq=889) BLOOD UREA NITROGEN 69 mg/dL 7-21 (BEAKER) (test dmni=534) CREATININE (BEAKER) (test 8.21 mg/dL 0.57-1.25 Specimen slightly rlgx=968) hemolyzed GLUCOSE RANDOM (BEAKER) 84 mg/dL 70-105 (test qtar=906) CALCIUM (BEAKER) (test 9.6 mg/dL 8.4-10.2 tedr=332) EGFR (BEAKER) (test 6 mL/min/1.73 sq m ESTIMATED GFR IS NOT pvna=5585) ACCURATE CREATININE CLEARANCE IN PREDICTING GLOMERULAR FILTRATION RATE. ESTIMATED GFR IS NOT APPLICABLE FOR DIALYSIS PATIENTS. Specimen slightly [id number] 14:34:00 Test Item Value Reference Range Comments PARTIAL THROMBOPLASTIN TIME (BEAKER) (test 91.0 seconds 22.5-36.0 nlll=965) [id number] 14:30:00 Test Item Value Reference Range Comments AMMONIA (BEAKER) (test nbnj=976) 96 mol/L 18-72 POCT-GLUCOSE [id number] 13:06:00 Test Item Value Reference Range Comments POC-GLUCOSE METER (BEAKER) 87 mg/dL 70-[address] [facility] [address] [facility] (test eyph=6128) [facility] [address] CD4 T CELL [id number] 09:28:00 Test Item Value Reference Range Comments TOTAL LYMPHOCYTES FC (BEAKER) (test lopx=2593) 679 /cu mm CD3+ TOTAL T CELLS % FC (BEAKER) (test ybyg=9129) 81 % 49-84 CD3+ TOTAL T CELLS ABSOLUTE FC (BEAKER) (test 553 /cu mm 603-2,990 lpsx=1792) CD3+/CD8+ T SUPPRESSOR CELLS % FC (BEAKER) (test 13 % 10-40 qupl=5383) CD3+/CD8+ T SUPPRESSOR CELLS ABS FC (BEAKER) 86 /cu mm 125-1,312 (test hzkj=0325) CD3+/CD4+ T HELPER CELLS % FC (BEAKER) (test 69 % 28-63 epck=1248) CD3+/CD4+ T HELPER CELLS ABS FC (BEAKER) (test 468 /cu mm 441-2,156 cbwj=4294) CD4/CD8 RATIO FC (BEAKER) (test lgry=0090) 5.46 0.70-3.23 CD16+/CD56+ NATURAL KILLER CELLS % FC (BEAKER) 11 % 4-25 (test grol=8719) CD16+/CD56+ NATURAL KILLER CELLS ABS FC (BEAKER) 72 /cu mm 95-640 (test pett=7172) CD19+ TOTAL B CELLS % FC (BEAKER) (test 7 % 6-27 ygaa=9698) CD19+ TOTAL B CELLS ABS FC (BEAKER) (test 49 /cu mm 107-698 eiyc=6088) CBC W/PLT COUNT & AUTO [id number] 08:53:00 Test Item Value Reference Range Comments WHITE BLOOD CELL COUNT (BEAKER) (test ozul=175) 19.6 K/ L 3.5-10.5 RED BLOOD CELL COUNT (BEAKER) (test ivsi=517) 4.06 M/ L 4.63-6.08 HEMOGLOBIN (BEAKER) (test egaa=657) 12.5 GM/DL 13.7-17.5 HEMATOCRIT (BEAKER) (test jwoj=313) 40.2 % 40.1-51.0 MEAN CORPUSCULAR VOLUME (BEAKER) (test ckmw=758) 99.0 fL 79.0-92.2 MEAN CORPUSCULAR HEMOGLOBIN (BEAKER) (test 30.8 pg 25.7-32.2 pxec=739) MEAN CORPUSCULAR HEMOGLOBIN CONC (BEAKER) (test 31.1 GM/DL 32.3-36.5 byrd=107) RED CELL DISTRIBUTION WIDTH (BEAKER) (test 16.5 % 11.6-14.4 rmid=554) PLATELET COUNT (BEAKER) (test bict=732) 170 K/CU MM 150-450 MEAN PLATELET VOLUME (BEAKER) (test pxov=373) 11.3 fL 9.4-12.4 NUCLEATED RED BLOOD CELLS (BEAKER) (test 2 /100 WBC 0-0 mlis=531) (CELLAVISION MANUAL DIFF)2018-07-28 08:53:00 Test Item Value Reference Range Comments NEUTROPHILS - REL (CELLAVISION)(BEAKER) (test 90 % cpeb=7354) LYMPHOCYTES - REL (CELLAVISION)(BEAKER) (test 3 % enrv=0444) MONOCYTES - REL (CELLAVISION)(BEAKER) (test 4 % eqcv=5314) BANDS - REL (CELLAVISION)(BEAKER) (test 3 % 0-10 ezoz=5998) NEUTROPHILS - ABS (CELLAVISION)(BEAKER) (test 17.64 K/ul 1.78-5.38 atxm=5465) LYMPHOCYTES - ABS (CELLAVISION)(BEAKER) (test 0.59 K/ul 1.32-3.57 oxfw=5793) MONOCYTES - ABS (CELLAVISION)(BEAKER) (test 0.78 K/uL 0.30-0.82 ucnr=8906) BANDS - ABS (CELLAVISION)(BEAKER) (test 0.59 K/uL 0.00-0.80 fyyx=3953) TOTAL COUNTED (BEAKER) (test bdka=8642) 100 WBC MORPHOLOGY (BEAKER) (test ampc=563) Normal PLT MORPHOLOGY (BEAKER) (test uive=558) Normal ANISOCYTOSIS (BEAKER) (test dofd=753) 1+ few MACROCYTES (BEAKER) (test lavj=836) 1+ few POIKILOCYTES (BEAKER) (test fkqn=147) 1+ few ARTIFACT (CELLAVISION)(BEAKER) (test rsbz=9297) Present PLATELET CONCENTRATION (CELLAVISION)(BEAKER) Adequate (test jzak=1556) Received comment: User comments: Slide comments:[id number] 08:35:00 Test Item Value Reference Range Comments PARTIAL THROMBOPLASTIN TIME (BEAKER) (test 74.6 seconds 22.5-36.0 rqtw=733) PROTHROMBIN [id number] 08:34:00 Test Item Value Reference Range Comments PROTIME (BEAKER) (test pbrv=507) 25.2 seconds 11.7-14.7 INR (BEAKER) (test zqmc=962) 2.4 <=5.9 RECOMMENDED COUMADIN/WARFARIN INR THERAPY RANGESSTANDARD DOSE: 2.0 - 3.0 Includes: PROPHYLAXIS forvenous thrombosis, systemic embolization; TREATMENT for venous thrombosis and/or pulmonary embolus.HIGH RISK: Target INR is 2.5-3.5 for patients with mechanical heart valves.LACTIC ACID, [id number] 08:32:00 Test Item Value Reference Range Comments LACTATE BLOOD VENOUS (2) 5.7 mmol/L 0.5-2.2 Specimen slightly hemolyzed (BEAKER) (test uipd=2769) POCT-GLUCOSE [id number] 08:20:00 Test Item Value Reference Range Comments POC-GLUCOSE METER (BEAKER) 88 mg/dL 70-[address] [facility] [address] [facility] (test jtjo=4047) [facility] [address] [id number] 05:11:00 Test Item Value Reference Range Comments PHOSPHORUS (BEAKER) (test oaqn=495) 10.5 mg/dL 2.3-4.7 COMPREHENSIVE METABOLIC [id number] 04:58:00 Test Item Value Reference Range Comments TOTAL PROTEIN (BEAKER) 6.3 gm/dL 6.0-8.3 (test sgth=838) ALBUMIN (BEAKER) (test 3.5 g/dL 3.5-5.0 mhmf=7948) ALKALINE PHOSPHATASE 65 U/L 40-150 (BEAKER) (test kkgx=415) BILIRUBIN TOTAL (BEAKER) 2.3 mg/dL 0.2-1.2 (test nlmb=845) SODIUM (BEAKER) (test 139 meq/L 136-145 tluh=629) POTASSIUM (BEAKER) (test 5.0 meq/L 3.5-5.1 dfdu=585) CHLORIDE (BEAKER) (test 95 meq/L 98-107 aucc=884) CO2 (BEAKER) (test 22 meq/L 22-29 fgqw=528) BLOOD UREA NITROGEN 61 mg/dL 7-21 (BEAKER) (test tlfn=983) CREATININE (BEAKER) (test 7.77 mg/dL 0.57-1.25 euum=444) GLUCOSE RANDOM (BEAKER) 79 mg/dL 70-105 (test ddij=863) CALCIUM (BEAKER) (test 9.8 mg/dL 8.4-10.2 xneo=205) AST (SGOT) (BEAKER) (test 1175 U/L 5-34 nvuh=580) ALT (SGPT) (BEAKER) (test 1724 U/L 6-55 cafc=808) EGFR (BEAKER) (test 7 mL/min/1.73 sq m ESTIMATED GFR IS NOT kjwe=6393) ACCURATE CREATININE CLEARANCE IN PREDICTING GLOMERULAR FILTRATION RATE. ESTIMATED GFR IS NOT APPLICABLE FOR DIALYSIS PATIENTS. Specimen slightly ictericPTH, [id number] 04:57:00 Test Item Value Reference Range Comments PARATHYROID HORMONE INTACT (BEAKER) (test 578.6 pg/mL 8.5-72.5 htzc=032) [id number] 02:13:00 Test Item Value Reference Range Comments PARTIAL THROMBOPLASTIN TIME (BEAKER) (test 53.4 seconds 22.5-36.0 ydml=224) [id number] 01:40:00 Test Item Value Reference Range Comments PARTIAL THROMBOPLASTIN TIME (BEAKER) (test > seconds 22.5-36.0 wpkc=990) BASIC METABOLIC [id number] 00:55:00 Test Item Value Reference Range Comments SODIUM (BEAKER) (test 136 meq/L 136-145 fovq=028) POTASSIUM (BEAKER) (test 4.8 meq/L 3.5-5.1 onhy=678) CHLORIDE (BEAKER) (test 95 meq/L 98-107 gitj=694) CO2 (BEAKER) (test 20 meq/L 22-29 paiw=646) BLOOD UREA NITROGEN 54 mg/dL 7-21 (BEAKER) (test kfuq=180) CREATININE (BEAKER) (test 7.39 mg/dL 0.57-1.25 grio=776) GLUCOSE RANDOM (BEAKER) 106 mg/dL 70-105 (test fpiz=637) CALCIUM (BEAKER) (test 9.6 mg/dL 8.4-10.2 wsas=111) EGFR (BEAKER) (test 7 mL/min/1.73 sq m ESTIMATED GFR IS NOT zdtd=7171) ACCURATE CREATININE CLEARANCE IN PREDICTING GLOMERULAR FILTRATION RATE. ESTIMATED GFR IS NOT APPLICABLE FOR DIALYSIS PATIENTS. Specimen slightly ictericPOCT-GLUCOSE [id number] 00:15:00 Test Item Value Reference Range Comments POC-GLUCOSE METER (BEAKER) 123 mg/dL 70-110 TESTED AT [address] (test cilz=9751) [place] [address] POCT-GLUCOSE [id number] 18:01:00 Test Item Value Reference Range Comments POC-GLUCOSE METER (BEAKER) 90 mg/dL 70-110 TESTED AT [address] (test ttmn=3363) [place] [address] [id number] 17:47:00 Test Item Value Reference Range Comments PARTIAL THROMBOPLASTIN TIME (BEAKER) (test 56.1 seconds 22.5-36.0 svuh=455) POCT-GLUCOSE [id number] 17:27:00 Test Item Value Reference Range Comments POC-GLUCOSE METER (BEAKER) 99 mg/dL 70-110 TESTED AT [address] (test xyjf=4153) [place] [id number] RESPIRATORY PANEL [id number] 10:42:00 Test Item Value Reference Range Comments HUMAN METAPNEUMOVIRUS (BEAKER) (test Not detected Not detected, Equivocal eror=5642) RHINOVIRUS (BEAKER) (test ueiz=6514) Not detected Not detected, Equivocal INFLUENZA A (BEAKER) (test kpnb=9556) Not detected Not detected, Equivocal INFLUENZA A (NO SUBTYPE) (test Not detected, Equivocal jafa=9231) INFLUENZA A SUBTYPE H1 (BEAKER) (test Not detected, Equivocal dxlp=5516) INFLUENZA A SUBTYPE H3 (BEAKER) (test Not detected, Equivocal pysk=5124) INFLUENZA A SUBTYPE H1-2009 (BEAKER) Not detected, Equivocal (test pwbt=8874) INFLUENZA B (BEAKER) (test uvss=2298) Not detected Not detected, Equivocal RESPIRATORY SYNCYTIAL VIRUS (BEAKER) Not detected Not detected, Equivocal (test druf=6022) PARAINFLUENZA VIRUS 1 (BEAKER) (test Not detected Not detected, Equivocal cmpw=2459) PARAINFLUENZA VIRUS 2 (BEAKER) (test Not detected Not detected, Equivocal saaq=7683) PARAINFLUENZA VIRUS 3 (BEAKER) (test Not detected Not detected, Equivocal uruv=1141) PARAINFLUENZA VIRUS 4 (BEAKER) (test Not detected Not detected, Equivocal mhck=0934) ADENOVIRUS (BEAKER) (test hzgh=2883) Not detected Not detected, Equivocal CORONAVIRUS 229E (BEAKER) (test Not detected Not detected, Equivocal qkdb=3580) CORONAVIRUS HKU1 (BEAKER) (test Not detected Not detected, Equivocal lrmq=7184) CORONAVIRUS NL63 (BEAKER) (test Not detected Not detected, Equivocal ppgc=7575) CORONAVIRUS OC43 (BEAKER) (test Not detected Not detected, Equivocal tadx=3410) BORDETELLA PERTUSSIS (BEAKER) (test Not detected Not detected, Equivocal wqvz=4255) CHLAMYDOPHILA PNEUMONIAE (BEAKER) (test Not detected Not detected, Equivocal wuer=6757) MYCOPLASMA PNEUMONIAE (BEAKER) (test Not detected Not detected, Equivocal xuyd=8403) Other viruses and bacteria not targeted by this PCR panel cannot be excluded; therefore clinical correlation and follow up of serology, culture results, and other molecular studies is required. The results are not intended to be used as the sole means for clinical diagnosis or patient management decisions. This sample was tested at the [facility] using the ShipuArray Respiratory Panel. It is FDA cleared and has been verified and approved by the [facility] for clinical use on nasopharyngeal swab specimens.The performance of the FilmArrayRP has not been established in individuals who received influenza vaccine. Recent administration ofa nasal influenza vaccine may cause false positive results for Influenza A and/orInfluenza B.[id number] 10:30:00 Test Item Value Reference Range Comments PROTIME ([facility]) (test ltsa=755) 22.7 seconds 11.7-14.7 INR (BEAKER) (test cois=416) 2.1 <=5.9 PARTIAL THROMBOPLASTIN TIME (BEAKER) (test 51.6 seconds 22.5-36.0 fiqy=697) RECOMMENDED COUMADIN/WARFARIN INR THERAPY RANGESSTANDARD DOSE: 2.0 - 3.0 Includes: PROPHYLAXIS forvenous thrombosis, systemic embolization; TREATMENT for venous thrombosis and/or pulmonary embolus.HIGH RISK: Target INR is 2.5-3.5 for patients with mechanical heart valves.HEPATITIS B SURFACE [id number] 09:41:00 Test Item Value Reference Range Comments HEPATITIS B SURFACE ANTIGEN (2) ([facility]) (test Nonreactive Nonreactive jjre=2167) For chronic HD patients, draw HBsAg with each admission then every 30 days.TROPONIN [id number] 07:24:00 Test Item Value Reference Range Comments TROPONIN I (BEAKER) (test cila=094) 0.98 ng/mL 0.00-0.03 Troponin I (TnI) levels [...] acidosis, acute neurological disease, and persistent tachyarrhythmia.POCT-GLUCOSE [id number] 06:38:00 Test Item Value Reference Range Comments POC-GLUCOSE METER ([facility]) 108 mg/dL 70-[address] [facility] [address] [facility] (test ncyq=3791) [facility] [address] TROPONIN [id number] 02:40:00 Test Item Value Reference Range Comments TROPONIN I (BEAKER) (test hrin=031) 1.10 ng/mL 0.00-0.03 Troponin I (TnI) levels [...] acute neurological disease, and persistent tachyarrhythmia.COMPREHENSIVE METABOLIC [id number] 02:40:00 Test Item Value Reference Range Comments TOTAL PROTEIN (BEAKER) 6.6 gm/dL 6.0-8.3 (test insu=267) ALBUMIN (BEAKER) (test 3.7 g/dL 3.5-5.0 akqu=7800) ALKALINE PHOSPHATASE 58 U/L 40-150 (BEAKER) (test gpgq=300) BILIRUBIN TOTAL (BEAKER) 1.6 mg/dL 0.2-1.2 (test wltc=463) SODIUM (BEAKER) (test 138 meq/L 136-145 gduw=525) POTASSIUM (BEAKER) (test 4.9 meq/L 3.5-5.1 flti=421) CHLORIDE (BEAKER) (test 94 meq/L 98-107 zthd=989) CO2 (BEAKER) (test 21 meq/L 22-29 yybb=556) BLOOD UREA NITROGEN 99 mg/dL 7-21 (BEAKER) (test owbw=905) CREATININE (BEAKER) (test 10.86 mg/dL 0.57-1.25 qsvy=603) GLUCOSE RANDOM (BEAKER) 126 mg/dL 70-105 (test rdgm=587) CALCIUM (BEAKER) (test 10.5 mg/dL 8.4-10.2 auaq=645) AST (SGOT) (BEAKER) (test 1853 U/L 5-34 eker=792) ALT (SGPT) (BEAKER) (test 1752 U/L 6-55 yria=006) EGFR (BEAKER) (test 5 mL/min/1.73 sq m ESTIMATED GFR IS NOT jkir=0885) ACCURATE CREATININE CLEARANCE IN PREDICTING GLOMERULAR FILTRATION RATE. ESTIMATED GFR IS NOT APPLICABLE FOR DIALYSIS PATIENTS. [id number] 02:39:00 Test Item Value Reference Range Comments PHOSPHORUS (BEAKER) (test rpsn=046) 12.8 mg/dL 2.3-4.7 CBC W/PLT COUNT & AUTO [id number] 02:33:00 Test Item Value Reference Range Comments WHITE BLOOD CELL COUNT (BEAKER) (test quiv=441) 13.2 K/ L 3.5-10.5 RED BLOOD CELL COUNT (BEAKER) (test uxll=116) 3.75 M/ L 4.63-6.08 HEMOGLOBIN (BEAKER) (test qjtt=995) 11.6 GM/DL 13.7-17.5 HEMATOCRIT (BEAKER) (test lboc=058) 35.4 % 40.1-51.0 MEAN CORPUSCULAR VOLUME (BEAKER) (test yuod=230) 94.4 fL 79.0-92.2 MEAN CORPUSCULAR HEMOGLOBIN (BEAKER) (test 30.9 pg 25.7-32.2 sruc=482) MEAN CORPUSCULAR HEMOGLOBIN CONC (BEAKER) (test 32.8 GM/DL 32.3-36.5 elwg=260) RED CELL DISTRIBUTION WIDTH (BEAKER) (test 15.4 % 11.6-14.4 vxam=465) PLATELET COUNT (BEAKER) (test jkwa=804) 144 K/CU MM 150-450 MEAN PLATELET VOLUME (BEAKER) (test pgrt=938) 11.1 fL 9.4-12.4 NUCLEATED RED BLOOD CELLS (BEAKER) (test 1 /100 WBC 0-0 zrjy=482) NEUTROPHILS RELATIVE PERCENT (BEAKER) (test 82 % mlmk=084) LYMPHOCYTES RELATIVE PERCENT (BEAKER) (test 6 % zvvq=432) MONOCYTES RELATIVE PERCENT (BEAKER) (test 10 % fipg=772) EOSINOPHILS RELATIVE PERCENT (BEAKER) (test 1 % qqvv=148) BASOPHILS RELATIVE PERCENT (BEAKER) (test 0 % ajzx=839) NEUTROPHILS ABSOLUTE COUNT (BEAKER) (test 10.82 K/ L 1.78-5.38 nsyt=876) LYMPHOCYTES ABSOLUTE COUNT (BEAKER) (test 0.84 K/ L 1.32-3.57 zpqn=119) MONOCYTES ABSOLUTE COUNT (BEAKER) (test 1.32 K/ L 0.30-0.82 tgci=063) EOSINOPHILS ABSOLUTE COUNT (BEAKER) (test 0.08 K/ L 0.04-0.54 shyu=929) BASOPHILS ABSOLUTE COUNT (BEAKER) (test 0.04 K/ L 0.01-0.08 ovod=292) IMMATURE GRANULOCYTES-RELATIVE PERCENT (BEAKER) 1 % 0-1 (test lmsb=0025) BASIC METABOLIC [id number] 02:32:00 Test Item Value Reference Range Comments SODIUM (BEAKER) (test 138 meq/L 136-145 qfdz=433) POTASSIUM (BEAKER) (test 4.9 meq/L 3.5-5.1 qnvf=910) CHLORIDE (BEAKER) (test 94 meq/L 98-107 coqj=534) CO2 (BEAKER) (test 21 meq/L 22-29 eppq=922) BLOOD UREA NITROGEN 99 mg/dL 7-21 (BEAKER) (test xmkv=160) CREATININE (BEAKER) (test 10.86 mg/dL 0.57-1.25 mvdv=519) GLUCOSE RANDOM (BEAKER) 126 mg/dL 70-105 (test zlqn=453) CALCIUM (BEAKER) (test 10.5 mg/dL 8.4-10.2 koaj=360) EGFR (BEAKER) (test 5 mL/min/1.73 sq m ESTIMATED GFR IS NOT nuol=8990) ACCURATE CREATININE CLEARANCE IN PREDICTING GLOMERULAR FILTRATION RATE. ESTIMATED GFR IS NOT APPLICABLE FOR DIALYSIS PATIENTS. [id number] 02:26:00 Test Item Value Reference Range Comments PARTIAL THROMBOPLASTIN TIME (BEAKER) (test 49.1 seconds 22.5-36.0 vqau=820) LACTIC ACID, [id number] 02:00:00 Test Item Value Reference Range Comments LACTATE BLOOD VENOUS (2) (BEAKER) (test 2.7 mmol/L 0.5-2.2 dhul=3887) POCT-GLUCOSE [id number] 23:58:00 Test Item Value Reference Range Comments POC-GLUCOSE METER (BEAKER) 105 mg/dL 70-[address] [facility] [address] [facility] (test azpb=9767) [facility] [address] BLOOD GAS, [id number] 22:15:00 Test Item Value Reference Range Comments PH ARTERIAL (BEAKER) (test wugl=773) 7.39 7.35-7.45 PCO2 ARTERIAL (BEAKER) (test gpir=103) 36 mmHg 35-45 PO2 ARTERIAL (BEAKER) (test osoh=506) 209 mmHg 80-90 O2 SATURATION ARTERIAL (BEAKER) (test gsdo=426) 99.4 % 96.0-97.0 HCO3 ARTERIAL (BEAKER) (test rdhm=896) 21 mmol/L 21-29 BASE EXCESS ARTERIAL (BEAKER) (test pvox=545) -3.3 mmol/L -2.0-3.0 PATIENT TEMPERATURE (BEAKER) (test rbyp=0801) 36.5 C FIO2 (BEAKER) (test cqne=4884) 50.0 % HEMOGLOBIN [id number] 21:35:00 Test Item Value Reference Range Comments HEMOGLOBIN A1C (BEAKER) (test rnlu=654) 5.8 % 4.3-6.1 TROPONIN [id number] 21:06:00 Test Item Value Reference Range Comments TROPONIN I (BEAKER) (test sfxy=703) 1.34 ng/mL 0.00-0.03 Troponin I (TnI) levels [...] acute neurological disease, and persistent tachyarrhythmia.BASIC METABOLIC [id number] 20:49:00 Test Item Value Reference Range Comments SODIUM (BEAKER) (test 136 meq/L 136-145 qrxv=653) POTASSIUM (BEAKER) (test 5.9 meq/L 3.5-5.1 Specimen slightly mcye=336) hemolyzed CHLORIDE (BEAKER) (test 94 meq/L 98-107 iaqf=192) CO2 (BEAKER) (test 19 meq/L 22-29 eylm=179) BLOOD UREA NITROGEN 93 mg/dL 7-21 (BEAKER) (test husg=762) CREATININE (BEAKER) (test 10.26 mg/dL 0.57-1.25 Specimen slightly kewu=748) hemolyzed GLUCOSE RANDOM (BEAKER) 65 mg/dL 70-105 (test qyli=155) CALCIUM (BEAKER) (test 10.6 mg/dL 8.4-10.2 tydq=571) EGFR (BEAKER) (test 5 mL/min/1.73 sq m ESTIMATED GFR IS NOT fuso=0677) ACCURATE CREATININE CLEARANCE IN PREDICTING GLOMERULAR FILTRATION RATE. ESTIMATED GFR IS NOT APPLICABLE FOR DIALYSIS PATIENTS. LACTIC ACID, [id number] 20:44:00 Test Item Value Reference Range Comments LACTATE BLOOD VENOUS (2) 3.1 mmol/L 0.5-2.2 Specimen slightly hemolyzed (BEAKER) (test mjnn=7942) [id number] 20:38:00 Test Item Value Reference Range Comments PARTIAL THROMBOPLASTIN TIME (BEAKER) (test 37.2 seconds 22.5-36.0 cqve=147) POCT-GLUCOSE [id number] 19:57:00 Test Item Value Reference Range Comments POC-GLUCOSE METER (BEAKER) 84 mg/dL 70-110 TESTED AT [address] (test ghda=2848) [place] [address] [address], BRAIN, WITHOUT [id number] 19:39:00FINAL REPORT CT Head without contrast CLINICAL [...] Vega Verified Date/Time: 07/26/2018 19:39:58 Reading Location: [address] Reading Room POCT-GLUCOSE [id number] 19:06:00 Test Item Value Reference Range Comments POC-GLUCOSE METER (BEAKER) 61 mg/dL 70-110 TESTED AT [address] (test fvyn=1718) [place] [id number] POCT-GLUCOSE [id number] 14:25:00 Test Item Value Reference Range Comments POC-GLUCOSE METER (BEAKER) 85 mg/dL 70-[address] [facility] [address] [facility] (test miva=4242) [facility] [address] CBC W/PLT COUNT & AUTO [id number] 13:27:00 Test Item Value Reference Range Comments WHITE BLOOD CELL COUNT (BEAKER) (test exhz=924) 14.8 K/ L 3.5-10.5 RED BLOOD CELL COUNT (BEAKER) (test vmvt=323) 3.85 M/ L 4.63-6.08 HEMOGLOBIN (BEAKER) (test hsep=027) 12.0 GM/DL 13.7-17.5 HEMATOCRIT (BEAKER) (test skaf=262) 36.5 % 40.1-51.0 MEAN CORPUSCULAR VOLUME (BEAKER) (test rhsd=814) 94.8 fL 79.0-92.2 MEAN CORPUSCULAR HEMOGLOBIN (BEAKER) (test 31.2 pg 25.7-32.2 fpxk=296) MEAN CORPUSCULAR HEMOGLOBIN CONC (BEAKER) (test 32.9 GM/DL 32.3-36.5 qxbi=078) RED CELL DISTRIBUTION WIDTH (BEAKER) (test 15.5 % 11.6-14.4 wbuf=275) PLATELET COUNT (BEAKER) (test csbk=327) 156 K/CU MM 150-450 MEAN PLATELET VOLUME (BEAKER) (test qokk=498) 11.0 fL 9.4-12.4 NUCLEATED RED BLOOD CELLS (BEAKER) (test 0 /100 WBC 0-0 heft=764) (CELLAVISION MANUAL DIFF)2018-07-26 13:27:00 Test Item Value Reference Range Comments NEUTROPHILS - REL (CELLAVISION)(BEAKER) (test 86 % bqzp=8382) LYMPHOCYTES - REL (CELLAVISION)(BEAKER) (test 2 % bior=5598) MONOCYTES - REL (CELLAVISION)(BEAKER) (test 11 % yrjc=2698) EOSINOPHILS - REL (CELLAVISION)(BEAKER) (test 1 % vwfp=8538) NEUTROPHILS - ABS (CELLAVISION)(BEAKER) (test 12.73 K/ul 1.78-5.38 vlju=1165) LYMPHOCYTES - ABS (CELLAVISION)(BEAKER) (test 0.30 K/ul 1.32-3.57 mrem=6205) MONOCYTES - ABS (CELLAVISION)(BEAKER) (test 1.63 K/uL 0.30-0.82 ldgp=5866) EOSINOPHILS - ABS (CELLAVISION)(BEAKER) (test 0.15 K/uL 0.04-0.54 qcux=5097) TOTAL COUNTED (BEAKER) (test tymo=5224) 100 WBC MORPHOLOGY (BEAKER) (test zjny=708) Normal PLT MORPHOLOGY (BEAKER) (test pdec=434) Normal ANISOCYTOSIS (BEAKER) (test eoge=406) 1+ few POIKILOCYTES (BEAKER) (test mtxw=280) 1+ few ARTIFACT (CELLAVISION)(BEAKER) (test pisk=5489) Present PLATELET CONCENTRATION (CELLAVISION)(BEAKER) Adequate (test epwm=5988) Received comment: User comments: Slide comments:[id number] 13:23:00 Test Item Value Reference Range Comments PROCALCITONIN (BEAKER) (test usds=2777) 0.72 ng/mL <0.05 SEPSIS RISK (ng/mL)Low: 0.05-0.50Intermediate: 0.51-2.00High: & gt;=2.01TROPONIN [id number] 12:55:00 Test Item Value Reference Range Comments TROPONIN I (BEAKER) (test xakm=125) 1.34 ng/mL 0.00-0.03 Troponin I (TnI) levels [...] acute neurological disease, and persistent tachyarrhythmia.COMPREHENSIVE METABOLIC [id number] 12:50:00 Test Item Value Reference Range Comments TOTAL PROTEIN (BEAKER) 6.6 gm/dL 6.0-8.3 (test guti=855) ALBUMIN (BEAKER) (test 3.8 g/dL 3.5-5.0 hjbx=6743) ALKALINE PHOSPHATASE 56 U/L 40-150 (BEAKER) (test tgja=293) BILIRUBIN TOTAL (BEAKER) 1.4 mg/dL 0.2-1.2 (test phnf=392) SODIUM (BEAKER) (test 135 meq/L 136-145 ljas=174) POTASSIUM (BEAKER) (test 5.7 meq/L 3.5-5.1 cajg=138) CHLORIDE (BEAKER) (test 94 meq/L 98-107 bqsz=151) CO2 (BEAKER) (test 19 meq/L 22-29 tqmb=478) BLOOD UREA NITROGEN 90 mg/dL 7-21 (BEAKER) (test trin=559) CREATININE (BEAKER) (test 9.76 mg/dL 0.57-1.25 jsfd=158) GLUCOSE RANDOM (BEAKER) 88 mg/dL 70-105 (test rzwp=000) CALCIUM (BEAKER) (test 10.4 mg/dL 8.4-10.2 sekr=219) AST (SGOT) (BEAKER) (test 2387 U/L 5-34 ptct=125) ALT (SGPT) (BEAKER) (test 1730 U/L 6-55 jvhx=843) EGFR (BEAKER) (test 5 mL/min/1.73 sq m ESTIMATED GFR IS NOT fgnv=9971) ACCURATE CREATININE CLEARANCE IN PREDICTING GLOMERULAR FILTRATION RATE. ESTIMATED GFR IS NOT APPLICABLE FOR DIALYSIS PATIENTS. PROTHROMBIN [id number] 12:47:00 Test Item Value Reference Range Comments PROTIME (BEAKER) (test kqql=474) 23.2 seconds 11.7-14.7 INR (BEAKER) (test tila=589) 2.2 <=5.9 RECOMMENDED COUMADIN/WARFARIN INR THERAPY RANGESSTANDARD DOSE: 2.0 - 3.0 Includes: PROPHYLAXIS forvenous thrombosis, systemic embolization; TREATMENT for venous thrombosis and/or pulmonary embolus.HIGH RISK: Target INR is 2.5-3.5 for patients with mechanical heart valves.B-TYPE NATRIURETIC FACTOR (BNP)2018-07 12:47:00 Test Item Value Reference Range Comments B-TYPE NATRIURETIC PEPTIDE (BEAKER) (test 4832 pg/mL 0-100 ehio=781) [id number] 12:45:00 Test Item Value Reference Range Comments LIPASE (BEAKER) (test dypl=867) 18 U/L 8-78 HEPATIC FUNCTION [id number] 12:45:00 Test Item Value Reference Range Comments TOTAL PROTEIN (BEAKER) (test ocbm=610) 6.6 gm/dL 6.0-8.3 ALBUMIN (BEAKER) (test ogss=2297) 3.8 g/dL 3.5-5.0 BILIRUBIN TOTAL (BEAKER) (test mvoy=346) 1.4 mg/dL 0.2-1.2 BILIRUBIN DIRECT (BEAKER) (test hyru=485) 1.1 mg/dL 0.1-0.5 ALKALINE PHOSPHATASE (BEAKER) (test nsmq=799) 56 U/L 40-150 AST (SGOT) (BEAKER) (test nzqp=100) 2387 U/L 5-34 ALT (SGPT) (BEAKER) (test euen=219) 1730 U/L 6-55 LACTIC ACID, [id number] 12:39:00 Test Item Value Reference Range Comments LACTATE BLOOD VENOUS (2) 3.2 mmol/L 0.5-2.2 Specimen slightly hemolyzed (BEAKER) (test lkds=0443) BLOOD GAS, [id number] 12:25:00 Test Item Value Reference Range Comments PH ARTERIAL (BEAKER) (test tbob=865) 7.35 7.35-7.45 PCO2 ARTERIAL (BEAKER) (test qeqr=608) 41 mmHg 35-45 PO2 ARTERIAL (BEAKER) (test lbjd=750) 85 mmHg 80-90 O2 SATURATION ARTERIAL (BEAKER) (test hbfx=196) 96.2 % 96.0-97.0 HCO3 ARTERIAL (BEAKER) (test jlus=122) 22 mmol/L 21-29 BASE EXCESS ARTERIAL (BEAKER) (test wxtb=582) -3.4 mmol/L -2.0-3.0 PATIENT TEMPERATURE (BEAKER) (test wjjo=7477) 36.4 C FIO2 (BEAKER) (test jrqo=1641) 28.0 % POCT-GLUCOSE [id number] 12:21:00 Test Item Value Reference Range Comments POC-GLUCOSE METER (BEAKER) 83 mg/dL 70-110 TESTED AT [address] (test adbv=1214) [facility] [address] U/S, ABDOMINAL, [id number] 11:45:00Abdomen limited area? Add comment if clarification [...] rightupper quadrant ultrasound exam. Signed: Nolan Martinez Verified Date/Time : 07/26/2018 11:45:22 Reading Location: [facility] C013Y CT Body Reading Room RAD , CHEST, 1 VIEW, NON [id number] 11:10:00Reason for exam:->Persistent coughShould this be performed [...] Robert MDReport Verified Date/Time: 11:10:13 Reading Location: [facility] B1 C013V Neuro Reading Room RAD, CHEST, 2 [id number] 18:51:00Reason for exam:->ABNORMAL IMAGING RESULTFINAL REPORT Chest, [...] Delgado MDReport Verified Date/Time: 18:51:08 Reading Location: [address] Consult Reading Room Electronicallysigned by: GALLO DELGADO M.D. on 03/23/2018 06:51 PMB-TYPE NATRIURETIC FACTOR (BNP)2018-03-23 18:29:00 Test Item Value Reference Range Comments B-TYPE NATRIURETIC PEPTIDE (BEAKER) (test 1420 pg/mL 0-100 fymj=839) RAPID [id number] 18:27:00 Test Item Value Reference Range Comments RAPID MYOGLOBIN (BEAKER) (test gkrv=5342) 438 ng/mL <107 RAPID [id number] 18:27:00 Test Item Value Reference Range Comments RAPID CKMB (BEAKER) (test juoy=8551) 3.2 ng/mL 0.0-4.3 RAPID TROPONIN [id number] 18:27:00 Test Item Value Reference Range Comments RAPID TROPONIN I (BEAKER) (test nozz=6086) < ng/mL <0.05 [id number] 18:23:00 Test Item Value Reference Range Comments PROTIME (BEAKER) (test cvkv=019) 11.3 seconds 9.8-12.0 INR (BEAKER) (test qsyh=205) 1.1 <=5.9 PARTIAL THROMBOPLASTIN TIME (BEAKER) (test 22.5 seconds 25.8-34.5 bnke=054) RECOMMENDED COUMADIN/WARFARIN INR THERAPY RANGESSTANDARD DOSE: 2.0 - 3.0 Includes: PROPHYLAXIS forvenous thrombosis, systemic embolization; TREATMENT for venous thrombosis and/or pulmonary embolus.HIGH RISK: Target INR is 2.5-3.5 for patients with mechanical heart valves.BASIC METABOLIC [id number] 18:21: 00 Test Item Value Reference Range Comments SODIUM (BEAKER) (test 138 meq/L 135-148 lfan=722) POTASSIUM (BEAKER) (test 4.7 meq/L 3.6-5.5 kecv=376) CHLORIDE (BEAKER) (test 99 meq/L 98-106 cwfy=925) CO2 (BEAKER) (test 29 meq/L 24-32 wrkk=151) BLOOD UREA NITROGEN 36 mg/dL 10-26 (BEAKER) (test cxhk=690) CREATININE (BEAKER) (test 5.15 mg/dL 0.50-1.20 aauv=281) GLUCOSE RANDOM (BEAKER) 94 mg/dL 70-110 (test nqnv=409) CALCIUM (BEAKER) (test 9.2 mg/dL 8.5-10.5 usat=002) EGFR (BEAKER) (test 11 mL/min/1.73 sq m ESTIMATED GFR IS NOT uevh=1765) ACCURATE CREATININE CLEARANCE IN PREDICTING GLOMERULAR FILTRATION RATE. ESTIMATED GFR IS NOT APPLICABLE FOR DIALYSIS PATIENTS. [id number] 18:18:00 Test Item Value Reference Range Comments MAGNESIUM (BEAKER) (test rqpc=515) 2.3 mg/dL 1.5-3.0 CREATINE KINASE (CK)2018-03-23 18:18:00 Test Item Value Reference Range Comments CREATINE KINASE TOTAL (BEAKER) (test lofg=684) 50 U/L 40-250 CBC W/PLT COUNT & AUTO [id number] 18:15:00 Test Item Value Reference Range Comments WHITE BLOOD CELL COUNT (BEAKER) (test eozt=852) 9.3 K/ L 4.0-10.0 RED BLOOD CELL COUNT (BEAKER) (test skku=515) 3.48 M/ L 4.20-5.80 HEMOGLOBIN (BEAKER) (test gcxo=611) 10.9 GM/DL 13.0-16.8 HEMATOCRIT (BEAKER) (test iadr=253) 33.0 % 40.0-50.0 MEAN CORPUSCULAR VOLUME (BEAKER) (test cuen=990) 94.8 fL 82.0-98.0 MEAN CORPUSCULAR HEMOGLOBIN (BEAKER) (test 31.2 pg 27.0-33.0 lrza=290) MEAN CORPUSCULAR HEMOGLOBIN CONC (BEAKER) (test 32.9 GM/DL 32.0-36.0 akhs=920) RED CELL DISTRIBUTION WIDTH (BEAKER) (test 13.7 % 10.3-14.2 mcgo=996) PLATELET COUNT (BEAKER) (test mjlt=404) 277 K/CU MM 150-430 MEAN PLATELET VOLUME (BEAKER) (test hogm=557) 8.8 fL 6.5-10.5 NEUTROPHILS RELATIVE PERCENT (BEAKER) (test 72 % uyfh=684) LYMPHOCYTES RELATIVE PERCENT (BEAKER) (test 15 % rjsq=610) MONOCYTES RELATIVE PERCENT (BEAKER) (test 9 % aamz=795) EOSINOPHILS RELATIVE PERCENT (BEAKER) (test 3 % zgcu=912) BASOPHILS RELATIVE PERCENT (BEAKER) (test 1 % hfae=461) NEUTROPHILS ABSOLUTE COUNT (BEAKER) (test 6.68 K/ L 1.80-8.00 gimv=232) LYMPHOCYTES ABSOLUTE COUNT (BEAKER) (test 1.41 K/ L 1.48-4.50 nkgd=061) MONOCYTES ABSOLUTE COUNT (BEAKER) (test 0.83 K/ L 0.00-1.30 oirq=882) EOSINOPHILS ABSOLUTE COUNT (BEAKER) (test 0.32 K/ L 0.00-0.50 ttlz=498) BASOPHILS ABSOLUTE COUNT (BEAKER) (test 0.05 K/ L 0.00-0.20 ajbr=414)
== END 2018-12-30 18:09 | disposition left against medical advice (07) | DRG 871 ==
LOC: SUPCPDRO 14:04 → ER 14:04 → ERHOLD 16:43 → 3RD-ICU 19:57 → 2ND 12-29 18:37
PROVIDERS: ADMIT Internal Medicine Sleep Medicine; ATTEND Internal Medicine Sleep Medicine
PROC: 5A1D70Z Performance of Urinary Filtration, Intermittent, Less than 6 Hours Per Day (ICD-10-PCS; principal; 2018-12-27)
PROC: 5A1D70Z Performance of Urinary Filtration, Intermittent, Less than 6 Hours Per Day (ICD-10-PCS; 2018-12-27)
PROC: 5A1D70Z Performance of Urinary Filtration, Intermittent, Less than 6 Hours Per Day (ICD-10-PCS; 2018-12-27)
PROC: 5A1D70Z Performance of Urinary Filtration, Intermittent, Less than 6 Hours Per Day (ICD-10-PCS; 2018-12-27)
DX: A41.02 Sepsis due to Methicillin resistant Staphylococcus aureus (principal); J96.01 Acute respiratory failure with hypoxia; I50.33 Acute on chronic diastolic (congestive) heart failure; N18.6 End stage renal disease; M86.172 Other acute osteomyelitis, left ankle and foot; I96 Gangrene, not elsewhere classified; I13.2 Hypertensive heart and chronic kidney disease with heart failure and with stage 5 chronic kidney disease, or end stage renal disease; I48.20 Chronic atrial fibrillation, unspecified; E87.2 Acidosis; R65.20 Severe sepsis without septic shock; I35.0 Nonrheumatic aortic (valve) stenosis; Z21 Asymptomatic human immunodeficiency virus [HIV] infection status; E87.5 Hyperkalemia; E03.9 Hypothyroidism, unspecified; R79.89 Other specified abnormal findings of blood chemistry; Z53.29 Procedure and treatment not carried out because of patient's decision for other reasons; Z85.038 Personal history of other malignant neoplasm of large intestine; Z99.2 Dependence on renal dialysis; Z95.0 Presence of cardiac pacemaker
CPT/HCPCS: 36415; 71045; 80048; 80053; 80076; 80202; 82607; 82728; 82805; 82947; 83036; 83540; 83605; 83735; 83880; 84132; 84145; 84466; 84484; 85025; 86317; 86704; 86706; 87040; 87077; 87086; 87088; 87186; 87205; 87340; 87804; 90935; 93005; 93923; 94640; 94660; 96365; 96375; 99285; J0610; J0696; J1644; J1940; J2405; J7040

== ENCOUNTER 2019-01-10 08:30 | Observation (INO) | payer OTHER ==
[2019-01-10] MEDS ORDERED: FUROSEMIDE 100 MG/10 ML VIAL IV ONE (09:06)
[2019-01-10 09:44] LABS: Absolute Lymphocytes (CBC) 0.7 K/uL (0.7-4.9); Basophils % 1.1 % (0-1.3); Hematocrit 29.2 % (39.6-49.0); MPV 8.4 fL (7.6-11.3); RBC Red Blood Cell Count 2.99 M/uL (4.33-5.43)
[2019-01-10 09:50] LABS: Protime INR 1.06
--- NOTE | 2019-01-10 09:53 | RAD REPORT ---
EXAM DESCRIPTION: Slime Single View01/10/2019 9:30 am CLINICAL HISTORY: sob COMPARISON: December 2018 FINDINGS: [id number] bilateral pulmonary opacities are present. The heart is mildly enlarged. Small pleural effusions. A central venous line in place IMPRESSION: Mild to moderate CHF
[2019-01-10 10:25] LABS: ALT/SGPT 27 U/L (12-78); AST/SGOT 16 U/L (15-37); Alkaline Phosphatase 124 U/L (45-117); BUN Blood Urea Nitrogen 53 mg/dL (7-18); Bicarbonate 33 mmol/L (21-32); Bilirubin Direct 0.3 mg/dL (0-0.2); Bilirubin Total 0.9 mg/dL (0.2-1.0); Creatine Phosphokinase 36 U/L (39-308); Glucose Level 122 mg/dL (74-106); Lipase 154 U/L (73-393); Magnesium 2.8 mg/dL (1.8-2.4); NT PRO-BNP > 35000 pg/mL (<450); Protein, Total 7.1 g/dL (6.4-8.2); Sodium Level 139 mmol/L (136-145); Troponin (Emerg Dept Use Only) 0.02 ng/mL (0.0-0.045)
--- NOTE | 2019-01-10 11:42 | ER ---
Nurse's Notes [facility] Name: Fredi Moore Age: 73 yrs Sex: Male : 1945 Arrival Date: 01/10/2019 Time: 08:32 Bed 7 Private MD: Diagnosis: Acute pulmonary edema Presentation: 01/10 08:44 Presenting complaint: Patient states: shortness of breath that began at 0200 this AM. ss Pt states, "I know what I need. I need dialysis to get some of this fluid off. I go tomorrow, but I don't think I can make it without until tomorrow.". Transition of care: patient was not received from another setting of care. Onset of symptoms was January 10, 2019. Risk Assessment: Do you want to hurt yourself or someone else? Patient reports no desire to harm self or others. Initial Sepsis Screen: Does the patient meet any 2 criteria? No. Patient's initial sepsis screen is negative. Does the patient have a suspected source of infection? No. Patient's initial sepsis screen is negative. Care prior to arrival: None. 08:44 Method Of Arrival: Wheelchair 08:44 Acuity: LUCERO 3 Triage Assessment: 09:45 Respiratory: hb Historical: - Allergies: 08:55 Morphine; ss 09:04 Betadine; ss - Home Meds: 08:55 Lantus 12 units SQ once in the morning [Active]; Novolog 100 unit/mL Sub-Q soln 10 unit ss three times a day [Active]; Dialyvite 100-1 mg oral tab 1 tab once daily [Active]; lamivudine 100 mg oral tab 0.5 tab once daily [Active]; amiodarone 100 mg Oral tab 1 tab once daily [Active]; levothyroxine oral [Active]; gabapentin 100 mg oral cap 1 caps daily [Active]; Lyrica 75 mg Oral 1 tab BID PRN [Active]; ritonavir oral 100 mg oral once daily [Active]; midodrine 2.5 mg oral tab 1 tab 3 times per day [Active]; aspirin 81 mg Oral TbEC 1 tab once daily [Active]; Renvela 800 mg oral tab 1 tab 3 times per day [Active]; cetirizine 10 mg oral tab 1 tab once daily [Active]; famotidine 20 mg Oral tab 1 tab once daily [Active]; benzonatate 200 mg oral cap 2 tab TID PRN cough [Active]; warfarin 2.5 mg Oral tab 1 tab Friday and [Active]; ropinirole 0.5 mg oral tab 1 tab nightly [Active]; lactulose 10 gram/15 mL (15 mL) Oral soln 30 mL once daily [Active]; 09:04 Warfarin 1.25 Oral 1 tab Mon, Wed, Fri, Sat, Sun [Active]; ss - PMHx: 08:55 blood clots; colon cancer; Diabetes - NIDDM; Dialysis; ESRD; HIV; Hypertension; ss - Immunization history:: Adult Immunizations up to date. - Social history:: Smoking status: Patient/guardian denies using tobacco, Patient/guardian denies using alcohol, street drugs, The patient lives with family. - Ebola Screening: : Patient denies exposure to infectious person Patient denies travel to an Ebola-affected area in the 21 days before illness onset. - Family history:: not pertinent. Screenin:44 Abuse screen: Denies threats or abuse. Denies injuries from another. Nutritional ss screening: No deficits noted. Tuberculosis screening: Never had TB. 09:45 Fall Risk None identified. hb Assessment: 08:44 Reassessment: at bedside evaluating pt. pt reports " heres the situation, I sg need dialysis. Nakia got fluid on my lungs and shortness of breath. I dont need anything extra, I just need dialysis and I feel like I cant wait until tomorrow.". 08:44 Reassessment: Patient refuses to get into gown and in exam bed for assessment/ ss evaluation. Pt is sitting in wheelchair. While connecting patient to BP cuff, pulse ox and cardiac monitoring, patient became upset, stating that he did not need telemetry at this time because he just needed dialysis, and everything else was excess. Educated patient on necessity to place telemetry on at this time. and patient verbalize understanding. Patient again verbalizes that he does not want an IV or blood work because he just needs dialysis. Dr. Yu notified. 09:40 Reassessment: Patient appears in no apparent distress at this time. No changes from hb previously documented assessment. Patient and/or family updated on plan of care and expected duration. Pain level reassessed. 10:30 Reassessment: pt reports he has not been taking any medication to make blood pressure sg high or low due to blood pressures being normal at home. 10:36 Reassessment: Patient appears in no apparent distress at this time. Patient and/or sg family updated on plan of care and expected duration. Pain level reassessed. Patient is alert, oriented x 3, equal unlabored respirations, skin warm/dry/pink. pt reports " what are we waiting on? I need to have this dialysis done so i can go home". 12:30 Reassessment: Patient appears in no apparent distress at this time. No changes from hb previously documented assessment. Patient and/or family updated on plan of care and expected duration. Pain level reassessed. Patient is alert, oriented x 3, equal unlabored respirations, skin warm/dry/pink. 13:30 Reassessment: Patient appears in no apparent distress at this time. No changes from hb previously documented assessment. Patient and/or family updated on plan of care and expected duration. Pain level reassessed. 14:30 Reassessment: Patient appears in no apparent distress at this time. No changes from sg previously documented assessment. Patient and/or family updated on plan of care and expected duration. Pain level reassessed. Vital Signs: 08:43 BP 138 / 72; Pulse 74; Resp 22; Temp 98.2; Pulse Ox 96% on R/A; Weight 95.25 kg; Height ss 5 ft. 11 in. (180.34 cm); Pain 0/10; 09:45 BP 90 / 76; Pulse 74; Resp 20; Pulse Ox 96% on R/A; hb 10:30 BP 89 / 45; Pulse 71; Resp 22; Pulse Ox 99% on 1 lpm NC; hb 11:25 BP 132 / 77; Pulse 77; Resp 21 S; Pulse Ox 100% on R/A; sg 13:00 BP 134 / 72; Pulse 76; Resp 15; Pulse Ox 100% on R/A; hb 08:43 Body Mass Index 29.29 (95.25 kg, 180.34 cm) ED Course: 08:32 Patient arrived in ED. mr 08:39 Nikki Olvera MD is Attending Physician. ma2 08:43 Arm band placed on right wrist. ss 08:44 Patient has correct armband on for positive identification. Bed in low position. Call light in reach. Adult w/ patient. processor inspector on. Pulse ox on. NIBP on. 08:45 Triage completed. 09:19 Initial lab(s) drawn, by la, sent to lab. Inserted saline lock: 22 gauge in right kj1 antecubital area, using aseptic technique. Blood collected. 09:28 XRAY CXR (1 view) In Process Unspecified. EDMS 09:44 Pilo Carpio, RN is Primary Nurse. 09:56 Notified ED physician of a critical lab result(s). D-Dimer elevated. 10:30 called and left message with Dr. Zee's answering service to please call Dr. ame Olvera for patient consult. 11:41 Eliseo Low is Hospitalizing Provider. [facility] 15:00 No provider procedures requiring assistance completed. 15:00 Patient admitted, IV remains in place. sg Administered Medications: 09:33 Drug: Lasix 80 mg Route: IVP; Site: right antecubital; 10:20 Follow up: Response: No adverse reaction sg Outcome: 11:42 Decision to Hospitalize by Provider. [facility] 15:00 Admitted to Med/surg accompanied by tech, via wheelchair, on monitor. 15:00 Condition: stable 15:00 Instructed on the need for admit, Demonstrated understanding of instructions. 15:05 Patient left the ED. Signatures: Dispatcher [employer] EDMA Pilo Carpio, RN EASTON Mona Frazier Cami Raza RN RN Marilyn Pryor RN RN Nikki Olvera MD MD [facility] Leyda Hernández Kandis [email or web address] Corrections: (The following items were deleted from the chart) 09:04 08:55 Home Meds: Warfarin 1.25 Oral 1 tab Mon, Wed, Fri, Sat, Sun; [facility] 18:22 18:21 No provider procedures requiring assistance completed. [facility]
--- NOTE | 2019-01-10 11:43 | EDPHYS ---
Physician Documentation [facility] Name: Fredi Moore Age: 73 yrs Sex: Male : 1945 Arrival Date: 01/10/2019 Time: 08:32 Bed 7 Private MD: ED Physician Nikki Olvera HPI: 01/10 08:57 This 73 yrs old Male presents to ER via Wheelchair with complaints of ma2 Breathing Difficulty. 08:57 The patient has shortness of breath at rest. Onset: The symptoms/episode began/occurred ma2 gradually, 2 day(s) ago. Associated signs and symptoms: Pertinent positives: shortness of breath \E\, Pertinent negatives: non-productive cough, productive cough, dizziness, hemoptysis, nausea, numbness in extremities. Severity of symptoms: At their worst the symptoms were moderate in the emergency department the symptoms are unchanged. The patient has experienced similar episodes in the past. Historical: - Allergies: 08:55 Morphine; ss 09:04 Betadine; ss - Home Meds: 08:55 Lantus 12 units SQ once in the morning [Active]; Novolog 100 unit/mL Sub-Q soln 10 unit ss three times a day [Active]; Dialyvite 100-1 mg oral tab 1 tab once daily [Active]; lamivudine 100 mg oral tab 0.5 tab once daily [Active]; amiodarone 100 mg Oral tab 1 tab once daily [Active]; levothyroxine oral [Active]; gabapentin 100 mg oral cap 1 caps daily [Active]; Lyrica 75 mg Oral 1 tab BID PRN [Active]; ritonavir oral 100 mg oral once daily [Active]; midodrine 2.5 mg oral tab 1 tab 3 times per day [Active]; aspirin 81 mg Oral TbEC 1 tab once daily [Active]; Renvela 800 mg oral tab 1 tab 3 times per day [Active]; cetirizine 10 mg oral tab 1 tab once daily [Active]; famotidine 20 mg Oral tab 1 tab once daily [Active]; benzonatate 200 mg oral cap 2 tab TID PRN cough [Active]; warfarin 2.5 mg Oral tab 1 tab Friday and [Active]; ropinirole 0.5 mg oral tab 1 tab nightly [Active]; lactulose 10 gram/15 mL (15 mL) Oral soln 30 mL once daily [Active]; 09:04 Warfarin 1.25 Oral 1 tab Mon, Wed, Fri, Sat, Sun [Active]; ss - PMHx: 08:55 blood clots; colon cancer; Diabetes - NIDDM; Dialysis; ESRD; HIV; Hypertension; ss - Immunization history:: Adult Immunizations up to date. - Social history:: Smoking status: Patient/guardian denies using tobacco, Patient/guardian denies using alcohol, street drugs, The patient lives with family. - Ebola Screening: : Patient denies exposure to infectious person Patient denies travel to an Ebola-affected area in the 21 days before illness onset. - Family history:: not pertinent. ROS: 08:57 Constitutional: Negative for fever, chills, and weight loss. ma2 08:57 All other systems are negative. Exam: 08:57 Constitutional: This is a well developed, well nourished patient who is awake, alert, ma2 and in no acute distress. Chest/axilla: Normal chest wall appearance and motion. Nontender with no deformity. No lesions are appreciated. Cardiovascular: Regular rate and rhythm with a normal S1 and S2. No gallops, murmurs, or rubs. Normal PMI, no JVD. No pulse deficits. Abdomen/GI: Soft, non-tender, with normal bowel sounds. No distension or tympany. No guarding or rebound. No evidence of tenderness throughout. Back: No spinal tenderness. No costovertebral tenderness. Full range of motion. MS/ Extremity: Pulses equal, no cyanosis. Neurovascular intact. Full, normal range of motion. Neuro: Awake and alert, GCS 15, oriented to person, place, time, and situation. Cranial nerves II-XII grossly intact. Motor strength 5/5 in all extremities. Sensory grossly intact. Cerebellar exam normal. Normal gait. 08:57 Respiratory: mild respiratory distress is noted, Respirations: labored breathing, Breath sounds: rales, that are moderate. Vital Signs: 08:43 BP 138 / 72; Pulse 74; Resp 22; Temp 98.2; Pulse Ox 96% on R/A; Weight 95.25 kg; Height ss 5 ft. 11 in. (180.34 cm); Pain 0/10; 09:45 BP 90 / 76; Pulse 74; Resp 20; Pulse Ox 96% on R/A; hb 10:30 BP 89 / 45; Pulse 71; Resp 22; Pulse Ox 99% on 1 lpm NC; hb 11:25 BP 132 / 77; Pulse 77; Resp 21 S; Pulse Ox 100% on R/A; sg 13:00 BP 134 / 72; Pulse 76; Resp 15; Pulse Ox 100% on R/A; hb 08:43 Body Mass Index 29.29 (95.25 kg, 180.34 cm) ss MDM: 08:39 Patient medically screened. ma2 08:57 Differential diagnosis: pneumonia, Pneumothorax pulmonary edema. mt2 11:40 Data reviewed: vital signs, nurses notes. Counseling: I had a detailed discussion with [facility] the patient and/or guardian regarding: the historical points, exam findings, and any diagnostic results supporting the discharge/admit diagnosis, the presence of at least one elevated blood pressure reading (>120/80) during this emergency department visit, the need for further work-up and treatment in the hospital. ED course: diswcussed with dr. aldrich and aaron. ED course: ptn need emergent HD volume overload pul edema bnp 35K . 11:56 ED course: discussed with dr. sow . [facility] 01/10 08:57 Order name: Blood Culture Adult (2) [facility] 01/10 08:57 Order name: BMP; Complete Time: 10:31 [facility] 01/10 08:57 Order name: CBC with Diff; Complete Time: 10:22 [facility] 01/10 08:57 Order name: Ckmb; Complete Time: 10:31 [facility] 01/10 08:57 Order name: CPK; Complete Time: 10:31 [facility] 01/10 08:57 Order name: D-Dimer; Complete Time: 10:22 [facility] 01/10 08:57 Order name: XRAY CXR (1 view) [facility] 01/10 08:57 Order name: Hepatic Function; Complete Time: 10:31 [facility] 01/10 08:57 Order name: Lipase; Complete Time: 10:31 [facility] 01/10 08:57 Order name: Magnesium; Complete Time: 10:31 [facility] 01/10 08:57 Order name: NT PRO-BNP; Complete Time: 10:31 [facility] 01/10 08:57 Order name: PT-INR; Complete Time: 10:22 01/10 08:57 Order name: Ptt, Activated; Complete Time: 10:22 01/10 08:57 Order name: Troponin (emerg Dept Use Only); Complete Time: 10:31 01/10 08:57 Order name: EKG; Complete Time: 08:58 01/10 08:57 Order name: Cardiac monitoring; Complete Time: 08:59 01/10 08:57 Order name: EKG - Nurse/Tech; Complete Time: 09:26 01/10 08:57 Order name: IV Saline Lock; Complete Time: 09:27 01/10 08:57 Order name: Labs collected and sent; Complete Time: 09:01/10 08:57 Order name: O2 Per Protocol; Complete Time: 08:59 01/10 08:57 Order name: O2 Sat Monitoring; Complete Time: 08:59 01/10 11:21 Order name: Diet Renal; Complete Time: 11:21 hb Administered Medications: 09:33 Drug: Lasix 80 mg Route: IVP; Site: right antecubital; hb 10:20 Follow up: Response: No adverse reaction sg Disposition: 01/10/19 11:42 Hospitalization ordered by Eliseo Low for Inpatient Admission. Preliminary diagnosis is Acute pulmonary edema. - Bed requested for Telemetry/MedSurg (Inpatient). - Status is Inpatient Admission. sg - Condition is Stable. - Problem is new. - Symptoms are unchanged. UTI on Admission? No Signatures: Dispatcher [employer] CÉSARNY Ling Vitale RN RN Pilo Carpio RN RN Cami Raza RN RN Marilyn Pryor RN RN Nikki Olvera MD MD [facility] Leyda Hernández Corrections: (The following items were deleted from the chart) 09:04 08:55 Home Meds: Warfarin 1.25 Oral 1 tab Mon, Wed, Fri, Sat, Sun; [facility] 11:53 11:42 Hospitalization Ordered by Eliseo Low for Inpatient Admission. Preliminary eb diagnosis is Acute pulmonary edema. Bed requested for Telemetry/MedSurg (Inpatient). Status is Inpatient Admission. Condition is Stable. Problem is new. Symptoms are unchanged. UTI on Admission? No. ma2 15:04 11:53 01/10/2019 11:42 Hospitalization Ordered by Eliseo Low for Inpatient dw Admission. Preliminary diagnosis is Acute pulmonary edema. Bed requested for Telemetry/MedSurg (Inpatient). Status is Inpatient Admission. Condition is Stable. Problem is new. Symptoms are unchanged. UTI on Admission? No. eb 15:05 15:04 01/10/2019 11:42 Hospitalization Ordered by Eliseo Low for Inpatient sg Admission. Preliminary diagnosis is Acute pulmonary edema. Bed requested for Telemetry/MedSurg (Inpatient). Status is Inpatient Admission. Condition is Stable. Problem is new. Symptoms are unchanged. UTI on Admission? No. dw
[2019-01-10] MEDS ORDERED: NA CHLORIDE 0.9% 1,000 ML IV PRN (12:25)
[2019-01-10] MEDS ORDERED: MANNITOL 25% 12.5 GM/50 ML VIAL IV PRN (12:25)
[2019-01-10] MEDS ORDERED: ALBUMIN HUMAN 25% 50 ML IV SCH (13:00)
--- NOTE | 2019-01-10 14:08 | P.HP ---
Certification for Inpatient Patient admitted to: Observation With expected LOS: <2 Midnights Practitioner: I am a practitioner with admitting privileges, knowledge of patient current condition, hospital course, and medical plan of care. Services: Services provided to patient in accordance with Admission requirements found in Title 42 Section 412.3 of the Code of Federal Regulations Patient History Date of Service: 01/10/19 Reason for admission: Shortness of breath History of Present Illness: 73-year-old gentleman with a history of end-stage renal disease on hemodialysis , HIV, chronic atrial fibrillation, DVT on Coumadin anticoagulation presented to the ED with a complaint of shortness of breath that has been present for 2 days. Patient felt he needed extra dialysis. He denied any chest pain. He denied any cough or palpitation. In the ED, chest x-ray demonstrated pulmonary edema. BNP elevated to 35,000. Patient deemed to need emergent hemodialysis. Nephrology was consulted in the ED for hemodialysis orders. Patient stated he does not want stay overnight and that he has an appointment to see his naval gunfire spotter tomorrow morning. He also stated he does not want any investigation to find out why he developed pulmonary edema. What he want is only hemodialysis and then discharged. He is placed under observation for emergent hemodialysis. Allergies No Known Allergies Allergy (Unverified 12/27/18 22:43) Home Medications: Abacavir Sulfate [Ziagen] 600 mg PO DAILY 08/17/18 Amiodarone HCl [Cordarone*] 100 mg PO DAILY 08/17/18 Aspirin 81 mg PO DAILY 08/17/18 Lamivudine [Lamivudine Hbv] 0.5 tab PO DAILY 08/17/18 Ritonavir [Norvir] 100 mg PO DAILY 08/17/18 Ropinirole HCl 0.5 mg PO BEDTIME 08/17/18 Sevelamer Carbonate 2,400 mg PO TIDWM 08/17/18 Cetirizine HCl [Zyrtec*] 10 mg PO DAILY 09/16/18 Lactulose 30 ml PO BID 09/18/18 Benzonatate 1 cap PO TID 11/11/18 Famotidine [Pepcid*] 20 mg PO DAILY 11/11/18 Gabapentin 100 mg PO DAILY 11/11/18 Levothyroxine Sodium 0.5 tab PO DAILY 11/11/18 Midodrine HCl 1 tab PO TID 11/11/18 - Past Medical/Surgical History Diabetic: Yes -: diabetes -: HTN -: ESRD -MWF -: Hemodialysis -: HIV infection -: COLON CANCER -: Afib -: partial removal of colon -: appendectomy -: fistula to left arm -: PermCath left chest -: pacemaker - Family History Father -: Hypertension Notes: patient seen/examined. labs/meds reviewed. patient has ongoing shortness of breath but much improved since yesterday. still with some wheezing/crackles on lung exam. left foot with gangrene. has cough (chornic issue). has non compliance with fluid restriction/he cut his treatment on friday as he had an appointment to go to. breathing treatments with combivent requested and oxygen to keep o2 sats in 90 range. vs reviewed/stable. o2 sats go in high 80s with cough or off oxygen. lungs: few crackles/wheezing, improves with cough. cvs: regular/+ murmur. abd: soft. ext +edema/left foot gangrene. a/p: esrd/htn/pvd /cad, valvular heart disease/? osteomylitis/? bronchitis: on abx. hyperkalemia/ acidosis improved s/p hd yesteday. plan hd again today with uf to get closer to edw. counseled in detail about compliance with dialysis and fluid restriction. patient advsied to take fall precautions. naval gunfire spotter (DR. Nelson) on case and DR. Hinkle evaluating the issue with gangrene. patient on broad antibiotics ( vancomycin/meropenem); should also cover bronchitis. plan dialysis for tomorrow again to correct volume status/keep close to edw. - Social History Alcohol use: Yes CD- Drugs: No Caffeine use: Yes Review of Systems Other: General: No fever, no malaise, no unintentional weight loss. Eyes: No eye discharge, CVS: No chest pain, no palpitation, no lightheadedness. GI: No abdominal pain, no nausea no vomit, no constipation, no diarrhea. Genitourinary: No dysuria, no urinary frequency, no incontinence, no hematuria. Musculoskeletal: No joint pains, or joint swelling, no gait instability. Neurology: No headache, no asymmetric, weakness, no problem with swallowing. Except as documented, all other systems reviewed and negative. Physical Examination - Physical Exam General: Alert, In no apparent distress, Oriented x3 HEENT: PERRLA, Mucous membr. moist/pink Neck: Supple, JVD not distended Respiratory: Normal air movement, Crackles/rales (Diffuse) Cardiovascular: Edema (1+ bilateral lower extremity pitting edema) Gastrointestinal: Normal bowel sounds, Soft and benign, Non-distended, No tenderness Musculoskeletal: No swelling Integumentary: No rashes Neurological: Normal speech, Normal strength at 5/5 x4 extr - Studies Laboratory Data (last 24 hrs) 01/10/19 09:19: PT 12.5, INR 1.06, APTT 33.8 01/10/19 09:19: WBC 9.3, Hgb 9.6 L, Hct 29.2 L, Plt Count 226 D 01/10/19 09:19: Sodium 139, Potassium 5.0, BUN 53 H, Creatinine 6.10 H*, Glucose 122 H, Magnesium 2.8 H D, Total Bilirubin 0.9, AST 16 D, ALT 27 D, Alkaline Phosphatase 124 H, Lipase 154 Assessment and Plan - Problems (Diagnosis) (1) Pulmonary edema Current Visit: Yes Status: Acute (2) ESRD (end stage renal disease) Onset Date: 01/31/17 Current Visit: No Status: Chronic (3) Diabetes mellitus type 2 in obese Current Visit: Yes Status: Acute (4) HIV (human immunodeficiency virus infection) Current Visit: No Status: Acute (5) Atrial fibrillation Current Visit: No Status: Chronic Qualifiers: Atrial fibrillation type: unspecified Qualified Code(s): I48.91 - Unspecified atrial fibrillation - Plan Place patient under observation. Nephrology consulted to evaluate for hemodialysis. Continue home medications for HIV Insulin sliding scale Continue amiodarone for AFib Continue Coumadin and monitor PT and INR. INR is currently subtherapeutic. Discharge after hemodialysis per his request. - Advance Directives Does patient have a Living Will: No Does patient have a Durable POA for Healthcare: No
[2019-01-10 15:46] VITALS: TEMP 98.1
[2019-01-10 15:51] VITALS: BP 153/85; O2SAT 100
--- NOTE | 2019-01-10 17:40 | P.SSS ---
Patient History Date of Service: 01/10/19 Reason for admission: Shortness of breath History of Present Illness: 73-year-old gentleman with a history of end-stage renal disease on hemodialysis , HIV, chronic atrial fibrillation, DVT on Coumadin anticoagulation presented to the ED with a complaint of shortness of breath that has been present for 2 days. Patient felt he needed extra dialysis. He denied any chest pain. He denied any cough or palpitation. In the ED, chest x-ray demonstrated pulmonary edema. BNP elevated to 35,000. Patient deemed to need emergent hemodialysis. Nephrology was consulted in the ED for hemodialysis orders. Patient stated he does not want stay overnight and that he has an appointment to see his dispatcher electric power tomorrow morning. He also stated he does not want any investigation to find out why he developed pulmonary edema. What he want is only hemodialysis and then discharged. He is placed under observation for emergent hemodialysis. Allergies No Known Allergies Allergy (Unverified 12/27/18 22:43) Home Medications: Abacavir Sulfate [Ziagen] 600 mg PO DAILY 08/17/18 Amiodarone HCl [Cordarone*] 100 mg PO DAILY 08/17/18 Aspirin 81 mg PO DAILY 08/17/18 Lamivudine [Lamivudine Hbv] 0.5 tab PO DAILY 08/17/18 Ritonavir [Norvir] 100 mg PO DAILY 08/17/18 Ropinirole HCl 0.5 mg PO BEDTIME 08/17/18 Sevelamer Carbonate 2,400 mg PO TIDWM 08/17/18 Cetirizine HCl [Zyrtec*] 10 mg PO DAILY 09/16/18 Lactulose 30 ml PO BID 09/18/18 Benzonatate 1 cap PO TID 11/11/18 Famotidine [Pepcid*] 20 mg PO DAILY 11/11/18 Gabapentin 100 mg PO DAILY 11/11/18 Levothyroxine Sodium 0.5 tab PO DAILY 11/11/18 Midodrine HCl 1 tab PO TID 11/11/18 Heparin [Heparin 1,000 units/mL *] 6,000 unit IV EVERY HD PRN vial 01/10/19 Mannitol 25% [Mannitol*] 12.5 gm IV EVERY HD PRN vial 01/10/19 - Past Medical/Surgical History Diabetic: Yes -: diabetes -: HTN -: ESRD -MWF -: Hemodialysis -: HIV infection -: COLON CANCER -: Afib -: partial removal of colon -: appendectomy -: fistula to left arm -: PermCath left chest -: pacemaker - Family History Father -: Hypertension - Social History Alcohol use: Yes CD- Drugs: No Caffeine use: Yes Physical Examination - Vital Signs Temperature: 98.1 F Blood Pressure: 153/85 Pulse: 67 Respirations: 17 - Physical Exam General: Alert, In no apparent distress, Oriented x3 HEENT: Mucous membr. moist/pink Neck: Supple, JVD not distended Respiratory: Crackles/rales Cardiovascular: Edema Gastrointestinal: Normal bowel sounds, Soft and benign, Non-distended, No tenderness Musculoskeletal: No swelling Integumentary: No rashes Neurological: Normal speech, Normal strength at 5/5 x4 extr - Studies Laboratory Data (last 24 hrs) 01/10/19 09:19: PT 12.5, INR 1.06, APTT 33.8 01/10/19 09:19: WBC 9.3, Hgb 9.6 L, Hct 29.2 L, Plt Count 226 D 01/10/19 09:19: Sodium 139, Potassium 5.0, BUN 53 H, Creatinine 6.10 H*, Glucose 122 H, Magnesium 2.8 H D, Total Bilirubin 0.9, AST 16 D, ALT 27 D, Alkaline Phosphatase 124 H, Lipase 154 - Diagnosis (Problem(s)) (1) Pulmonary edema Current Visit: Yes Status: Acute (2) ESRD (end stage renal disease) Onset Date: 01/31/17 Current Visit: No Status: Chronic (3) Diabetes mellitus type 2 in obese Current Visit: Yes Status: Acute (4) HIV (human immunodeficiency virus infection) Current Visit: No Status: Acute (5) Atrial fibrillation Current Visit: No Status: Chronic Qualifiers: Atrial fibrillation type: unspecified Qualified Code(s): I48.91 - Unspecified atrial fibrillation Treatment Summary: Pantient placed on the medical floor. He underwent dialysis. He stated he feels much better after dialysis and requested to go home stating he has an appointment with his Abatement Worker tomorrow morning and cannot wait here overnight for monitoring. Patient is discharged per his request. - Disposition Disposition: ROUTINE DISCHARGE Condition: FAIR Diet: ADA Activity: Ad chalino Time Spent Managing Pts Care (In Minutes): 52
--- NOTE | 2019-01-11 02:34 | CON ---
History Of Present Illness: Male with history of aortic valve disease, who presented to the hospital with shortness of breath. Patient denies any change in routine and denies any dietary indiscretion. The patient was seen in the emergency room and patient was found to have volume overload. Patient is being admitted for acute dialysis for volume management. Past Medical History: As per HPI. Family History: Noncontributory. Physical Examination: Vital Signs: Blood pressure 134/72, pulse 76, afebrile. General: No acute distress. Heart: Regular rate and rhythm. Positive systolic ejection murmur. Lungs: Decreased breath sounds at the bases. Crepitations heard in the mid lung solorzano. Abdomen: Soft, nontender, nondistended. Extremities: 2+ edema. Laboratory Data: Reviewed. Impression: 1. End-stage renal disease, on hemodialysis. 2. Volume overload in the setting of congestive heart failure. 3. Aortic valve disease. Plan: Patient will have dialysis today. Orders have been placed by Dr. Orourke and nursing staff was made aware in that regard. Patient had a cardiology visit tomorrow morning and he did not want to miss that appointment. I have recommended the patient strictly follows his fluid restriction as well as his renal diet. We will continue to follow up if he remains hospitalized. /JACK Voice ID: [id number] Report ID: [id number] MARKOS
--- OUTSIDE RECORDS SUMMARY | 2019-01-11 07:02 | XMS REPORT ---
:1945 Author Organization [facility] Address [address] [place] [address] [address]. [address] [place] [address] Care Team Providers Name Role Phone JANES [...] (BEAKER) (test 104 mg/dL 70-110 TESTED AT [facility] [address] [facility] firf=2160) [facility] [address] POCT-GLUCOSE [id number] 13:02:00 Test Item Value Reference Range Comments POC-GLUCOSE METER (BEAKER) 104 mg/dL 70-110 TESTED AT [address] (test tafb=5434) [facility] [address] BASIC METABOLIC [id number] 03:33:00 Test Item Value Reference Range Comments SODIUM (BEAKER) (test 140 meq/L 136-145 hdzw=087) POTASSIUM (BEAKER) (test 4.2 meq/L 3.5-5.1 Specimen slightly jtri=660) hemolyzed CHLORIDE (BEAKER) (test 104 meq/L 98-107 fwwn=512) CO2 (BEAKER) (test 25 meq/L 22-29 hjmn=334) BLOOD UREA NITROGEN 43 mg/dL 7-21 (BEAKER) (test tlwf=871) CREATININE (BEAKER) (test 6.20 mg/dL 0.57-1.25 Specimen slightly hcnf=178) hemolyzed GLUCOSE RANDOM (BEAKER) 76 mg/dL 70-105 (test nywa=102) CALCIUM (BEAKER) (test 9.2 mg/dL 8.4-10.2 wife=023) EGFR (BEAKER) (test 9 mL/min/1.73 sq m ESTIMATED GFR IS NOT ikfh=9295) ACCURATE CREATININE CLEARANCE IN PREDICTING GLOMERULAR FILTRATION RATE. ESTIMATED GFR IS NOT APPLICABLE FOR DIALYSIS PATIENTS. [id number] 03:24:00 Test Item Value Reference Range Comments MAGNESIUM (BEAKER) (test 2.3 mg/dL 1.6-2.6 Specimen slightly hemolyzed mssy=264) CBC W/PLT COUNT & AUTO [id number] 03:22:00 Test Item Value Reference Range Comments WHITE BLOOD CELL COUNT (BEAKER) (test qglv=559) 9.6 K/ L 3.5-10.5 RED BLOOD CELL COUNT (BEAKER) (test abes=931) 3.29 M/ L 4.63-6.08 HEMOGLOBIN (BEAKER) (test iuln=450) 10.5 GM/DL 13.7-17.5 HEMATOCRIT (BEAKER) (test vqfb=303) 33.4 % 40.1-51.0 MEAN CORPUSCULAR VOLUME (BEAKER) (test sjae=650) 101.5 fL 79.0-92.2 MEAN CORPUSCULAR HEMOGLOBIN (BEAKER) (test 31.9 pg 25.7-32.2 kmjn=364) MEAN CORPUSCULAR HEMOGLOBIN CONC (BEAKER) (test 31.4 GM/DL 32.3-36.5 nujz=608) RED CELL DISTRIBUTION WIDTH (BEAKER) (test 15.1 % 11.6-14.4 ijbs=547) PLATELET COUNT (BEAKER) (test yakl=543) 175 K/CU MM 150-450 MEAN PLATELET VOLUME (BEAKER) (test quja=030) 10.7 fL 9.4-12.4 NUCLEATED RED BLOOD CELLS (BEAKER) (test 0 /100 WBC 0-0 uqvs=157) NEUTROPHILS RELATIVE PERCENT (BEAKER) (test 77 % jiim=583) LYMPHOCYTES RELATIVE PERCENT (BEAKER) (test 7 % godz=945) MONOCYTES RELATIVE PERCENT (BEAKER) (test 10 % nbbo=608) EOSINOPHILS RELATIVE PERCENT (BEAKER) (test 4 % qvzm=202) BASOPHILS RELATIVE PERCENT (BEAKER) (test 1 % zjyn=380) NEUTROPHILS ABSOLUTE COUNT (BEAKER) (test 7.32 K/ L 1.78-5.38 vwbl=963) LYMPHOCYTES ABSOLUTE COUNT (BEAKER) (test 0.70 K/ L 1.32-3.57 cvbt=159) MONOCYTES ABSOLUTE COUNT (BEAKER) (test 0.98 K/ L 0.30-0.82 wzaz=525) EOSINOPHILS ABSOLUTE COUNT (BEAKER) (test 0.42 K/ L 0.04-0.54 qobj=614) BASOPHILS ABSOLUTE COUNT (BEAKER) (test 0.10 K/ L 0.01-0.08 kspk=218) IMMATURE GRANULOCYTES-RELATIVE PERCENT (BEAKER) 1 % 0-1 (test uxtk=1251) POCT-GLUCOSE [id number] 22:39:00 Test Item Value Reference Range Comments POC-GLUCOSE METER (BEAKER) 90 mg/dL 70-110 TESTED AT [address] (test ewte=9084) [place] [address] POCT-GLUCOSE [id number] 18:45:00 Test Item Value Reference Range Comments POC-GLUCOSE METER (BEAKER) 86 mg/dL 70-110 TESTED AT [address] (test lano=5626) [place] [id number] POCT-GLUCOSE [id number] 12:18:00 Test Item Value Reference Range Comments POC-GLUCOSE METER (BEAKER) 91 mg/dL 70-110 TESTED AT [address] (test lhft=7401) [place] [id number] POCT-GLUCOSE [id number] 08:39:00 Test Item Value Reference Range Comments POC-GLUCOSE METER (BEAKER) 74 mg/dL 70-110 TESTED AT [address] (test lghg=9184) [place] [id number] BASIC METABOLIC [id number] 06:17:00 Test Item Value Reference Range Comments SODIUM (BEAKER) (test 142 meq/L 136-145 ynih=895) POTASSIUM (BEAKER) (test 4.2 meq/L 3.5-5.1 bpkl=793) CHLORIDE (BEAKER) (test 104 meq/L 98-107 jrew=958) CO2 (BEAKER) (test 28 meq/L 22-29 nfli=539) BLOOD UREA NITROGEN 31 mg/dL 7-21 (BEAKER) (test hxwa=149) CREATININE (BEAKER) (test 4.88 mg/dL 0.57-1.25 nvqz=689) GLUCOSE RANDOM (BEAKER) 90 mg/dL 70-105 (test sfhe=516) CALCIUM (BEAKER) (test 9.3 mg/dL 8.4-10.2 iuhk=794) EGFR (BEAKER) (test 12 mL/min/1.73 sq m ESTIMATED GFR IS NOT paef=4825) ACCURATE CREATININE CLEARANCE IN PREDICTING GLOMERULAR FILTRATION RATE. ESTIMATED GFR IS NOT APPLICABLE FOR DIALYSIS PATIENTS. TROPONIN [id number] 05:43:00 Test Item Value Reference Range Comments TROPONIN I (BEAKER) (test kirz=536) 0.05 ng/mL 0.00-0.03 Troponin I (TnI) levels [...] failure, acidosis, acute neurological disease, and persistent tachyarrhythmia.[id number] 05:35:00 Test Item Value Reference Range Comments MAGNESIUM (BEAKER) (test vote=041) 2.3 mg/dL 1.6-2.6 CBC W/PLT COUNT & AUTO [id number] 05:25:00 Test Item Value Reference Range Comments WHITE BLOOD CELL COUNT (BEAKER) (test qxqn=285) 8.0 K/ L 3.5-10.5 RED BLOOD CELL COUNT (BEAKER) (test rcpc=000) 3.13 M/ L 4.63-6.08 HEMOGLOBIN (BEAKER) (test kqqv=405) 10.1 GM/DL 13.7-17.5 HEMATOCRIT (BEAKER) (test mybc=203) 31.8 % 40.1-51.0 MEAN CORPUSCULAR VOLUME (BEAKER) (test zusi=623) 101.6 fL 79.0-92.2 MEAN CORPUSCULAR HEMOGLOBIN (BEAKER) (test 32.3 pg 25.7-32.2 njff=726) MEAN CORPUSCULAR HEMOGLOBIN CONC (BEAKER) (test 31.8 GM/DL 32.3-36.5 llwt=369) RED CELL DISTRIBUTION WIDTH (BEAKER) (test 15.2 % 11.6-14.4 ymao=820) PLATELET COUNT (BEAKER) (test kejb=349) 158 K/CU MM 150-450 MEAN PLATELET VOLUME (BEAKER) (test titp=502) 10.5 fL 9.4-12.4 NUCLEATED RED BLOOD CELLS (BEAKER) (test 0 /100 WBC 0-0 bdtv=969) NEUTROPHILS RELATIVE PERCENT (BEAKER) (test 84 % umgx=497) LYMPHOCYTES RELATIVE PERCENT (BEAKER) (test 4 % vewt=137) MONOCYTES RELATIVE PERCENT (BEAKER) (test 9 % ytnk=646) EOSINOPHILS RELATIVE PERCENT (BEAKER) (test 2 % izzu=452) BASOPHILS RELATIVE PERCENT (BEAKER) (test 1 % ungu=254) NEUTROPHILS ABSOLUTE COUNT (BEAKER) (test 6.69 K/ L 1.78-5.38 rrkv=687) LYMPHOCYTES ABSOLUTE COUNT (BEAKER) (test 0.32 K/ L 1.32-3.57 jblg=576) MONOCYTES ABSOLUTE COUNT (BEAKER) (test 0.72 K/ L 0.30-0.82 ujqc=120) EOSINOPHILS ABSOLUTE COUNT (BEAKER) (test 0.18 K/ L 0.04-0.54 qsha=830) BASOPHILS ABSOLUTE COUNT (BEAKER) (test 0.04 K/ L 0.01-0.08 vjye=080) IMMATURE GRANULOCYTES-RELATIVE PERCENT (BEAKER) 0 % 0-1 (test nrxh=0366) POCT-GLUCOSE [id number] 22:18:00 Test Item Value Reference Range Comments POC-GLUCOSE METER (BEAKER) 92 mg/dL 70-110 TESTED AT [address] (test wxdi=9222) [place] [address] HEPATITIS B SURFACE [id number] 20:20:00 Test Item Value Reference Range Comments HEPATITIS B SURFACE ANTIGEN (2) (BEAKER) (test Nonreactive Nonreactive uxtp=6878) POCT-GLUCOSE [id number] 17:37:00 Test Item Value Reference Range Comments POC-GLUCOSE METER (BEAKER) 102 mg/dL 70-110 TESTED AT [address] (test jgie=4694) [place] [address] T4, [id number] 16:09:00 Test Item Value Reference Range Comments FREE T4 (BEAKER) (test lrya=576) 0.89 ng/dL 0.70-1.48 TSH/FREE T4 IF [id number] 15:35:00 Test Item Value Reference Range Comments THYROID STIMULATING HORMONE (BEAKER) (test 6.53 uIU/mL 0.35-4.94 ymls=309) TROPONIN [id number] 15:04:00 Test Item Value Reference Range Comments TROPONIN I (BEAKER) (test gtlo=338) 0.05 ng/mL 0.00-0.03 Troponin I (TnI) levels [...] acute neurological disease, and persistent tachyarrhythmia.COMPREHENSIVE METABOLIC [id number] 15:02:00 Test Item Value Reference Range Comments TOTAL PROTEIN (BEAKER) 7.0 gm/dL 6.0-8.3 Specimen slightly (test wpmp=783) hemolyzed ALBUMIN (BEAKER) (test 3.6 g/dL 3.5-5.0 Specimen slightly nnjb=7992) hemolyzed ALKALINE PHOSPHATASE 68 U/L 40-150 (BEAKER) (test tgdc=685) BILIRUBIN TOTAL (BEAKER) 0.4 mg/dL 0.2-1.2 Specimen slightly (test btdj=964) hemolyzed SODIUM (BEAKER) (test 132 meq/L 136-145 amhs=514) POTASSIUM (BEAKER) (test 6.3 meq/L 3.5-5.1 Specimen slightly oogo=141) hemolyzed CHLORIDE (BEAKER) (test 98 meq/L 98-107 dxwu=299) CO2 (BEAKER) (test 19 meq/L 22-29 ipza=222) BLOOD UREA NITROGEN 76 mg/dL 7-21 (BEAKER) (test mfwz=474) CREATININE (BEAKER) (test 8.43 mg/dL 0.57-1.25 Specimen slightly guwz=506) hemolyzed GLUCOSE RANDOM (BEAKER) 77 mg/dL 70-105 (test fetu=713) CALCIUM (BEAKER) (test 9.5 mg/dL 8.4-10.2 chnb=239) AST (SGOT) (BEAKER) (test 17 U/L 5-34 Specimen slightly xnqz=877) hemolyzed ALT (SGPT) (BEAKER) (test < U/L 6-55 Specimen slightly bybz=836) hemolyzed EGFR (BEAKER) (test 6 mL/min/1.73 sq m ESTIMATED GFR IS NOT gyws=3768) ACCURATE CREATININE CLEARANCE IN PREDICTING GLOMERULAR FILTRATION RATE. ESTIMATED GFR IS NOT APPLICABLE FOR DIALYSIS PATIENTS. B-TYPE NATRIURETIC FACTOR (BNP)2018-12-14 14:16:00 Test Item Value Reference Range Comments B-TYPE NATRIURETIC PEPTIDE (BEAKER) (test 7454 pg/mL 0-100 akdm=790) [id number] 13:52:00 Test Item Value Reference Range Comments MAGNESIUM (BEAKER) (test 2.7 mg/dL 1.6-2.6 Specimen slightly hemolyzed lcvz=374) [id number] 13:52:00 Test Item Value Reference Range Comments PHOSPHORUS (BEAKER) (test 7.4 mg/dL 2.3-4.7 Specimen slightly hemolyzed mxyp=907) CBC W/PLT COUNT & AUTO [id number] 13:30:00 Test Item Value Reference Range Comments WHITE BLOOD CELL COUNT (BEAKER) (test cjax=579) 7.9 K/ L 3.5-10.5 RED BLOOD CELL COUNT (BEAKER) (test vvez=794) 3.07 M/ L 4.63-6.08 HEMOGLOBIN (BEAKER) (test ilya=758) 9.9 GM/DL 13.7-17.5 HEMATOCRIT (BEAKER) (test ddzy=274) 30.9 % 40.1-51.0 MEAN CORPUSCULAR VOLUME (BEAKER) (test suvc=508) 100.7 fL 79.0-92.2 MEAN CORPUSCULAR HEMOGLOBIN (BEAKER) (test 32.2 pg 25.7-32.2 wvmv=769) MEAN CORPUSCULAR HEMOGLOBIN CONC (BEAKER) (test 32.0 GM/DL 32.3-36.5 vapz=674) RED CELL DISTRIBUTION WIDTH (BEAKER) (test 15.3 % 11.6-14.4 grvg=899) PLATELET COUNT (BEAKER) (test vrde=387) 162 K/CU MM 150-450 MEAN PLATELET VOLUME (BEAKER) (test xiux=178) 11.0 fL 9.4-12.4 NUCLEATED RED BLOOD CELLS (BEAKER) (test 0 /100 WBC 0-0 kjfw=900) NEUTROPHILS RELATIVE PERCENT (BEAKER) (test 75 % ccua=013) LYMPHOCYTES RELATIVE PERCENT (BEAKER) (test 11 % ezkg=257) MONOCYTES RELATIVE PERCENT (BEAKER) (test 11 % sglv=323) EOSINOPHILS RELATIVE PERCENT (BEAKER) (test 2 % jswb=040) BASOPHILS RELATIVE PERCENT (BEAKER) (test 1 % xyjv=441) NEUTROPHILS ABSOLUTE COUNT (BEAKER) (test 5.91 K/ L 1.78-5.38 iiud=519) LYMPHOCYTES ABSOLUTE COUNT (BEAKER) (test 0.86 K/ L 1.32-3.57 zzqw=234) MONOCYTES ABSOLUTE COUNT (BEAKER) (test 0.84 K/ L 0.30-0.82 gtpx=565) EOSINOPHILS ABSOLUTE COUNT (BEAKER) (test 0.17 K/ L 0.04-0.54 ckng=246) BASOPHILS ABSOLUTE COUNT (BEAKER) (test 0.08 K/ L 0.01-0.08 panv=345) IMMATURE GRANULOCYTES-RELATIVE PERCENT (BEAKER) 0 % 0-1 (test okby=3239) BLOOD GAS, [id number] 13:27:00 Test Item Value Reference Range Comments PH VENOUS (BEAKER) (test lkvb=712) 7.36 7.32-7.42 PCO2 VENOUS (BEAKER) (test elco=936) 44 mmHg 41-51 PO2 VENOUS (BEAKER) (test nqoi=885) 39 mmHg 25-40 O2 SATURATION VENOUS (BEAKER) (test xryj=583) 74.1 % 40.0-70.0 HCO3 VENOUS (BEAKER) (test hjvk=067) 24 mmol/L 21-29 BASE EXCESS VENOUS (BEAKER) (test ebwb=675) -1.4 mmol/L -2.0-3.0 PATIENT TEMPERATURE (BEAKER) (test kdkh=7184) 36.3 C FIO2 (BEAKER) (test lzpa=0002) 21.0 % POCT-GLUCOSE [id number] 13:08:00 Test Item Value Reference Range Comments POC-GLUCOSE METER (BEAKER) 81 mg/dL 70-110 TESTED AT [address] (test qvmq=7764) [facility] [address] RAD, CHEST, 1 VIEW, NON [id number] 12:53:00Reason for exam:-> Undifferentiated hypotensionShould this be [...] MDReport Verified Date/Time: 12/14/2018 12:53:53 Reading Location: [facility] Radiology Reading Room POCT-GLUCOSE [id number] 08 :00:00 Test Item Value Reference Range Comments POC-GLUCOSE METER (BEAKER) 99 mg/dL 70-110 TESTED AT [address] (test kbid=7783) [facility] [address] ANG, TUNNELED CATHETER [id number] 12:00:00Reason for exam:-> Hemodialysis patientFINAL REPORT Procedure: Tunneled hemodialysis catheter placement. Central venography. History: End-stage renal disease. Hemodialysis. Digital Media Planner: Jeremi Morley MD. Latin Professor: Luci Burks Modality: Sonography and fluoroscopy. DOSE [...] innominate vein. Over the wire a 3 Amharic dilator of the micropuncture sheath was placed. [...] Verified Date/Time: 11/04/2018 12: 00:24 Reading Location: [place] [address] Angio Body Reading Room POCT-GLUCOSE [id number] 11:59:00 Test Item Value Reference Range Comments POC-GLUCOSE METER (BEAKER) 203 mg/dL 70-110 TESTED AT [address] (test ijfl=6594) [facility] [address] BASIC METABOLIC [id number] 06:08:00 Test Item Value Reference Range Comments SODIUM (BEAKER) (test 133 meq/L 136-145 hwes=908) POTASSIUM (BEAKER) (test 4.8 meq/L 3.5-5.1 aepi=036) CHLORIDE (BEAKER) (test 99 meq/L 98-107 cufi=517) CO2 (BEAKER) (test 24 meq/L 22-29 yywx=944) BLOOD UREA NITROGEN 37 mg/dL 7-21 (BEAKER) (test mmml=037) CREATININE (BEAKER) (test 6.24 mg/dL 0.57-1.25 xoda=570) GLUCOSE RANDOM (BEAKER) 98 mg/dL 70-105 (test opnv=111) CALCIUM (BEAKER) (test 9.5 mg/dL 8.4-10.2 tjdc=653) EGFR (BEAKER) (test 9 mL/min/1.73 sq m ESTIMATED GFR IS NOT icnn=0394) ACCURATE CREATININE CLEARANCE IN PREDICTING GLOMERULAR FILTRATION RATE. ESTIMATED GFR IS NOT APPLICABLE FOR DIALYSIS PATIENTS. [id number] 06:07:00 Test Item Value Reference Range Comments PHOSPHORUS (BEAKER) (test fbjh=481) 5.3 mg/dL 2.3-4.7 [id number] 06:07:00 Test Item Value Reference Range Comments MAGNESIUM (BEAKER) (test ykej=671) 2.5 mg/dL 1.6-2.6 CBC W/PLT COUNT & AUTO [id number] 05:28:00 Test Item Value Reference Range Comments WHITE BLOOD CELL COUNT (BEAKER) (test impn=227) 7.4 K/ L 3.5-10.5 RED BLOOD CELL COUNT (BEAKER) (test sfzf=687) 3.18 M/ L 4.63-6.08 HEMOGLOBIN (BEAKER) (test cmkc=854) 10.2 GM/DL 13.7-17.5 HEMATOCRIT (BEAKER) (test tmsi=674) 31.9 % 40.1-51.0 MEAN CORPUSCULAR VOLUME (BEAKER) (test mykg=707) 100.3 fL 79.0-92.2 MEAN CORPUSCULAR HEMOGLOBIN (BEAKER) (test 32.1 pg 25.7-32.2 wnfu=432) MEAN CORPUSCULAR HEMOGLOBIN CONC (BEAKER) (test 32.0 GM/DL 32.3-36.5 bpbv=243) RED CELL DISTRIBUTION WIDTH (BEAKER) (test 15.0 % 11.6-14.4 jxos=103) PLATELET COUNT (BEAKER) (test ylux=024) 177 K/CU MM 150-450 MEAN PLATELET VOLUME (BEAKER) (test hett=437) 11.6 fL 9.4-12.4 NUCLEATED RED BLOOD CELLS (BEAKER) (test 0 /100 WBC 0-0 jvnf=331) NEUTROPHILS RELATIVE PERCENT (BEAKER) (test 73 % ykbx=627) LYMPHOCYTES RELATIVE PERCENT (BEAKER) (test 9 % ojhy=714) MONOCYTES RELATIVE PERCENT (BEAKER) (test 11 % xwoa=369) EOSINOPHILS RELATIVE PERCENT (BEAKER) (test 4 % xixr=287) BASOPHILS RELATIVE PERCENT (BEAKER) (test 2 % sskz=032) NEUTROPHILS ABSOLUTE COUNT (BEAKER) (test 5.42 K/ L 1.78-5.38 xvjy=680) LYMPHOCYTES ABSOLUTE COUNT (BEAKER) (test 0.68 K/ L 1.32-3.57 ogbo=699) MONOCYTES ABSOLUTE COUNT (BEAKER) (test 0.78 K/ L 0.30-0.82 qegf=279) EOSINOPHILS ABSOLUTE COUNT (BEAKER) (test 0.29 K/ L 0.04-0.54 mwox=690) BASOPHILS ABSOLUTE COUNT (BEAKER) (test 0.15 K/ L 0.01-0.08 eazf=291) IMMATURE GRANULOCYTES-RELATIVE PERCENT (BEAKER) 1 % 0-1 (test ocvf=3627) POCT-GLUCOSE [id number] 21:49:00 Test Item Value Reference Range Comments POC-GLUCOSE METER (BEAKER) 155 mg/dL 70-110 TESTED AT [address] (test iity=6334) [place] [address] POCT-GLUCOSE [id number] 17:39:00 Test Item Value Reference Range Comments POC-GLUCOSE METER (BEAKER) 79 mg/dL 70-110 TESTED AT [address] (test flky=4639) [place] [address] RAD, CHEST, 1 VIEW, NON [id number] 13:18:00Reason for exam:->sob.Should this be performed at [...] MDReport Verified Date/Time: 11/03/2018 13:18:35 Reading Location: [facility] Radiology Reading Room Electronically signed by: STEPHANIE SANTACRUZ M.D. on 01:18 PMPOCT-GLUCOSE [id number] 12:06:00 Test Item Value Reference Range Comments POC-GLUCOSE METER (BEAKER) 85 mg/dL 70-110 TESTED AT [address] (test ifkd=7185) [facility] [address] POCT-GLUCOSE [id number] 08:42:00 Test Item Value Reference Range Comments POC-GLUCOSE METER (BEAKER) 87 mg/dL 70-110 TESTED AT [address] (test vluu=9657) [facility] [address] BASIC METABOLIC [id number] 06:41:00 Test Item Value Reference Range Comments SODIUM (BEAKER) (test 135 meq/L 136-145 lhze=311) POTASSIUM (BEAKER) (test 4.4 meq/L 3.5-5.1 wcet=015) CHLORIDE (BEAKER) (test 100 meq/L 98-107 jqur=193) CO2 (BEAKER) (test 25 meq/L 22-29 hrzn=318) BLOOD UREA NITROGEN 28 mg/dL 7-21 (BEAKER) (test bcfu=260) CREATININE (BEAKER) (test 4.95 mg/dL 0.57-1.25 azao=131) GLUCOSE RANDOM (BEAKER) 86 mg/dL 70-105 (test pkeu=178) CALCIUM (BEAKER) (test 9.1 mg/dL 8.4-10.2 teyb=622) EGFR (BEAKER) (test 12 mL/min/1.73 sq m ESTIMATED GFR IS NOT ulbc=7141) ACCURATE CREATININE CLEARANCE IN PREDICTING GLOMERULAR FILTRATION RATE. ESTIMATED GFR IS NOT APPLICABLE FOR DIALYSIS PATIENTS. [id number] 06:35:00 Test Item Value Reference Range Comments MAGNESIUM (BEAKER) (test vqmd=361) 2.4 mg/dL 1.6-2.6 PROTHROMBIN TIME/[id number] 06:09:00 Test Item Value Reference Range Comments PROTIME (BEAKER) (test kfkq=005) 14.8 seconds 11.9-14.2 INR (BEAKER) (test ldeb=819) 1.2 <=5.9 Effective 07/29/2018: PT Reference Range ChangeNew: 11.9-14.2 Previous: 11.7- 14.7RECOMMENDED COUMADIN/WARFARIN INR THERAPY RANGESSTANDARD DOSE: 2.0-3.0 Includes: PROPHYLAXIS for venous thrombosis, systemic embolization; TREATMENT for venous thrombosis and/or pulmonary embolus.HIGH RISK: Target INR is2.5-3.5 for patients wiht mechanical heart valves.CBC W/PLT COUNT & AUTO [id number] 06:01:00 Test Item Value Reference Range Comments WHITE BLOOD CELL COUNT (BEAKER) (test tdmh=973) 6.4 K/ L 3.5-10.5 RED BLOOD CELL COUNT (BEAKER) (test ovjl=328) 3.13 M/ L 4.63-6.08 HEMOGLOBIN (BEAKER) (test idvs=927) 9.8 GM/DL 13.7-17.5 HEMATOCRIT (BEAKER) (test mlgr=817) 30.7 % 40.1-51.0 MEAN CORPUSCULAR VOLUME (BEAKER) (test hrtl=656) 98.1 fL 79.0-92.2 MEAN CORPUSCULAR HEMOGLOBIN (BEAKER) (test 31.3 pg 25.7-32.2 goyy=834) MEAN CORPUSCULAR HEMOGLOBIN CONC (BEAKER) (test 31.9 GM/DL 32.3-36.5 poyr=563) RED CELL DISTRIBUTION WIDTH (BEAKER) (test 15.1 % 11.6-14.4 noxr=224) PLATELET COUNT (BEAKER) (test fyuf=910) 171 K/CU MM 150-450 MEAN PLATELET VOLUME (BEAKER) (test oaim=103) 11.9 fL 9.4-12.4 NUCLEATED RED BLOOD CELLS (BEAKER) (test 0 /100 WBC 0-0 rcjq=830) NEUTROPHILS RELATIVE PERCENT (BEAKER) (test 75 % xagi=066) LYMPHOCYTES RELATIVE PERCENT (BEAKER) (test 10 % rjve=431) MONOCYTES RELATIVE PERCENT (BEAKER) (test 10 % qdbr=369) EOSINOPHILS RELATIVE PERCENT (BEAKER) (test 3 % sodu=854) BASOPHILS RELATIVE PERCENT (BEAKER) (test 2 % sirt=675) NEUTROPHILS ABSOLUTE COUNT (BEAKER) (test 4.78 K/ L 1.78-5.38 oxmc=698) LYMPHOCYTES ABSOLUTE COUNT (BEAKER) (test 0.62 K/ L 1.32-3.57 hoxz=100) MONOCYTES ABSOLUTE COUNT (BEAKER) (test 0.62 K/ L 0.30-0.82 cdiy=933) EOSINOPHILS ABSOLUTE COUNT (BEAKER) (test 0.21 K/ L 0.04-0.54 nlgr=147) BASOPHILS ABSOLUTE COUNT (BEAKER) (test 0.10 K/ L 0.01-0.08 xqjo=377) IMMATURE GRANULOCYTES-RELATIVE PERCENT (BEAKER) 1 % 0-1 (test mezt=0264) POCT-GLUCOSE [id number] 20:51:00 Test Item Value Reference Range Comments POC-GLUCOSE METER (BEAKER) 184 mg/dL 70-110 TESTED AT [address] (test ieya=0932) [facility] [address] POCT-GLUCOSE [id number] 18:54:00 Test Item Value Reference Range Comments POC-GLUCOSE METER (BEAKER) 81 mg/dL 70-110 TESTED AT [address] (test nsiz=7041) [facility] [id number] POCT-GLUCOSE [id number] 12:00:00 Test Item Value Reference Range Comments POC-GLUCOSE METER (BEAKER) 105 mg/dL 70-110 TESTED AT [address] (test lmei=9075) [facility] [address] POCT-GLUCOSE [id number] 08:30:00 Test Item Value Reference Range Comments POC-GLUCOSE METER (BEAKER) 102 mg/dL 70-110 TESTED AT [address] (test lawf=9985) [facility] [address] BASIC METABOLIC [id number] 05:43:00 Test Item Value Reference Range Comments SODIUM (BEAKER) (test 131 meq/L 136-145 nynu=707) POTASSIUM (BEAKER) (test 5.1 meq/L 3.5-5.1 zbvs=225) CHLORIDE (BEAKER) (test 97 meq/L 98-107 fizb=462) CO2 (BEAKER) (test 20 meq/L 22-29 qxcd=817) BLOOD UREA NITROGEN 49 mg/dL 7-21 (BEAKER) (test fqql=195) CREATININE (BEAKER) (test 6.79 mg/dL 0.57-1.25 xzbx=575) GLUCOSE RANDOM (BEAKER) 102 mg/dL 70-105 (test wwjl=302) CALCIUM (BEAKER) (test 9.9 mg/dL 8.4-10.2 ldzf=408) EGFR (BEAKER) (test 8 mL/min/1.73 sq m ESTIMATED GFR IS NOT mkok=9848) ACCURATE CREATININE CLEARANCE IN PREDICTING GLOMERULAR FILTRATION RATE. ESTIMATED GFR IS NOT APPLICABLE FOR DIALYSIS PATIENTS. [id number] 04:51:00 Test Item Value Reference Range Comments MAGNESIUM (BEAKER) (test tbav=914) 2.5 mg/dL 1.6-2.6 POCT-GLUCOSE [id number] 20:52:00 Test Item Value Reference Range Comments POC-GLUCOSE METER (BEAKER) 108 mg/dL 70-110 TESTED AT [address] (test orge=1923) [place] [id number] BLOOD [id number] 20:01:00 Test Item Value Reference Range Comments CULTURE (BEAKER) (test eqtj=8690) No growth in 5 days BLOOD [id number] 20:01:00 Test Item Value Reference Range Comments CULTURE (BEAKER) (test jjhq=6589) No growth in 5 days POCT-GLUCOSE [id number] 17:02:00 Test Item Value Reference Range Comments POC-GLUCOSE METER (BEAKER) 125 mg/dL 70-110 TESTED AT [address] (test mwys=6695) [place] [address] POCT-GLUCOSE [id number] 11:38:00 Test Item Value Reference Range Comments POC-GLUCOSE METER (BEAKER) 128 mg/dL 70-110 TESTED AT [address] (test vovv=1277) [place] [address] BASIC METABOLIC [id number] 08:12:00 Test Item Value Reference Range Comments SODIUM (BEAKER) (test 132 meq/L 136-145 wejt=402) POTASSIUM (BEAKER) (test 4.4 meq/L 3.5-5.1 muey=665) CHLORIDE (BEAKER) (test 99 meq/L 98-107 bary=093) CO2 (BEAKER) (test 24 meq/L 22-29 gttn=325) BLOOD UREA NITROGEN 37 mg/dL 7-21 (BEAKER) (test gzir=187) CREATININE (BEAKER) (test 5.72 mg/dL 0.57-1.25 nvwa=883) GLUCOSE RANDOM (BEAKER) 107 mg/dL 70-105 (test dkfh=702) CALCIUM (BEAKER) (test 9.4 mg/dL 8.4-10.2 cjcs=525) EGFR (BEAKER) (test 10 mL/min/1.73 sq m ESTIMATED GFR IS NOT ztxt=8150) ACCURATE CREATININE CLEARANCE IN PREDICTING GLOMERULAR FILTRATION RATE. ESTIMATED GFR IS NOT APPLICABLE FOR DIALYSIS PATIENTS. POCT-GLUCOSE [id number] 08:11:00 Test Item Value Reference Range Comments POC-GLUCOSE METER (BEAKER) 110 mg/dL 70-110 [address] (test zyaw=0344) [facility] [address] [id number] 07:53:00 Test Item Value Reference Range Comments MAGNESIUM (BEAKER) (test jowp=898) 2.4 mg/dL 1.6-2.6 CBC W/PLT COUNT & AUTO [id number] 06:20:00 Test Item Value Reference Range Comments WHITE BLOOD CELL COUNT (BEAKER) (test foln=424) 8.6 K/ L 3.5-10.5 RED BLOOD CELL COUNT (BEAKER) (test adcd=806) 3.24 M/ L 4.63-6.08 HEMOGLOBIN (BEAKER) (test mcqj=002) 10.5 GM/DL 13.7-17.5 HEMATOCRIT (BEAKER) (test yqwz=372) 32.0 % 40.1-51.0 MEAN CORPUSCULAR VOLUME (BEAKER) (test blfi=432) 98.8 fL 79.0-92.2 MEAN CORPUSCULAR HEMOGLOBIN (BEAKER) (test 32.4 pg 25.7-32.2 zdot=617) MEAN CORPUSCULAR HEMOGLOBIN CONC (BEAKER) (test 32.8 GM/DL 32.3-36.5 xdmj=054) RED CELL DISTRIBUTION WIDTH (BEAKER) (test 15.0 % 11.6-14.4 htcj=039) PLATELET COUNT (BEAKER) (test ylbq=609) 201 K/CU MM 150-450 MEAN PLATELET VOLUME (BEAKER) (test jdmb=203) 11.3 fL 9.4-12.4 NUCLEATED RED BLOOD CELLS (BEAKER) (test 0 /100 WBC 0-0 yyfg=899) NEUTROPHILS RELATIVE PERCENT (BEAKER) (test 73 % bjjj=393) LYMPHOCYTES RELATIVE PERCENT (BEAKER) (test 11 % ewmu=277) MONOCYTES RELATIVE PERCENT (BEAKER) (test 10 % cyan=449) EOSINOPHILS RELATIVE PERCENT (BEAKER) (test 4 % yuaa=383) BASOPHILS RELATIVE PERCENT (BEAKER) (test 1 % eaes=572) NEUTROPHILS ABSOLUTE COUNT (BEAKER) (test 6.25 K/ L 1.78-5.38 vags=519) LYMPHOCYTES ABSOLUTE COUNT (BEAKER) (test 0.92 K/ L 1.32-3.57 rjbi=218) MONOCYTES ABSOLUTE COUNT (BEAKER) (test 0.83 K/ L 0.30-0.82 xvnc=354) EOSINOPHILS ABSOLUTE COUNT (BEAKER) (test 0.37 K/ L 0.04-0.54 vkik=874) BASOPHILS ABSOLUTE COUNT (BEAKER) (test 0.10 K/ L 0.01-0.08 locd=710) IMMATURE GRANULOCYTES-RELATIVE PERCENT (BEAKER) 2 % 0-1 (test zfil=1542) POCT-GLUCOSE [id number] 20:50:00 Test Item Value Reference Range Comments POC-GLUCOSE METER (BEAKER) 140 mg/dL 70-110 TESTED AT [address] (test dszn=7538) [place] [address] POCT-GLUCOSE [id number] 17:28:00 Test Item Value Reference Range Comments POC-GLUCOSE METER (BEAKER) 217 mg/dL 70-110 TESTED AT [address] (test ieqk=3848) [place] [address] POCT-GLUCOSE [id number] 11:22:00 Test Item Value Reference Range Comments POC-GLUCOSE METER (BEAKER) 157 mg/dL 70-110 TESTED AT [address] (test xybb=0018) [place] [address] POCT-GLUCOSE [id number] 07:42:00 Test Item Value Reference Range Comments POC-GLUCOSE METER (BEAKER) 130 mg/dL 70-110 TESTED AT [address] (test vnxl=1570) [place] [address] BLOOD [id number] 07:39:00 Test Item Value Reference Range Comments CULTURE (BEAKER) From Aerobic Bottle Only (test pzje=3505) Same organism has been isolated from cultures(s) of the same body site within 3 days. Repeat identification and susceptibility testing performed only after consultation with the clinical microbiology laboratory.Refer to previous culture ofStaphylococcus aureus GRAM STAIN RESULT From aerobic bottle (BEAKER) (test only: gram positive nxyj=8383) cocci in clusters BASIC METABOLIC [id number] 06:48:00 Test Item Value Reference Range Comments SODIUM (BEAKER) (test 138 meq/L 136-145 ycnj=931) POTASSIUM (BEAKER) (test 4.2 meq/L 3.5-5.1 kbqn=570) CHLORIDE (BEAKER) (test 102 meq/L 98-107 utid=970) CO2 (BEAKER) (test 26 meq/L 22-29 bzsh=165) BLOOD UREA NITROGEN 24 mg/dL 7-21 (BEAKER) (test acgb=057) CREATININE (BEAKER) (test 4.13 mg/dL 0.57-1.25 zlti=375) GLUCOSE RANDOM (BEAKER) 106 mg/dL 70-105 (test rqqo=344) CALCIUM (BEAKER) (test 9.0 mg/dL 8.4-10.2 qbvm=776) EGFR (BEAKER) (test 14 mL/min/1.73 sq m ESTIMATED GFR IS NOT rcuo=3589) ACCURATE CREATININE CLEARANCE IN PREDICTING GLOMERULAR FILTRATION RATE. ESTIMATED GFR IS NOT APPLICABLE FOR DIALYSIS PATIENTS. [id number] 06:33:00 Test Item Value Reference Range Comments MAGNESIUM (BEAKER) (test ouws=259) 2.1 mg/dL 1.6-2.6 CBC W/PLT COUNT & AUTO [id number] 04:46:00 Test Item Value Reference Range Comments WHITE BLOOD CELL COUNT (BEAKER) (test cnvy=054) 9.1 K/ L 3.5-10.5 RED BLOOD CELL COUNT (BEAKER) (test iipg=732) 3.31 M/ L 4.63-6.08 HEMOGLOBIN (BEAKER) (test yasw=176) 10.3 GM/DL 13.7-17.5 HEMATOCRIT (BEAKER) (test zcic=883) 32.9 % 40.1-51.0 MEAN CORPUSCULAR VOLUME (BEAKER) (test yhls=520) 99.4 fL 79.0-92.2 MEAN CORPUSCULAR HEMOGLOBIN (BEAKER) (test 31.1 pg 25.7-32.2 wqpk=035) MEAN CORPUSCULAR HEMOGLOBIN CONC (BEAKER) (test 31.3 GM/DL 32.3-36.5 urdv=406) RED CELL DISTRIBUTION WIDTH (BEAKER) (test 15.0 % 11.6-14.4 yopy=164) PLATELET COUNT (BEAKER) (test zxdq=332) 207 K/CU MM 150-450 MEAN PLATELET VOLUME (BEAKER) (test ysul=475) 11.3 fL 9.4-12.4 NUCLEATED RED BLOOD CELLS (BEAKER) (test 0 /100 WBC 0-0 pegs=173) NEUTROPHILS RELATIVE PERCENT (BEAKER) (test 77 % lkpw=943) LYMPHOCYTES RELATIVE PERCENT (BEAKER) (test 9 % cfms=010) MONOCYTES RELATIVE PERCENT (BEAKER) (test 8 % lrbs=445) EOSINOPHILS RELATIVE PERCENT (BEAKER) (test 4 % mmij=707) BASOPHILS RELATIVE PERCENT (BEAKER) (test 1 % vega=250) NEUTROPHILS ABSOLUTE COUNT (BEAKER) (test 6.94 K/ L 1.78-5.38 sgkc=048) LYMPHOCYTES ABSOLUTE COUNT (BEAKER) (test 0.84 K/ L 1.32-3.57 vjna=184) MONOCYTES ABSOLUTE COUNT (BEAKER) (test 0.72 K/ L 0.30-0.82 qlnt=066) EOSINOPHILS ABSOLUTE COUNT (BEAKER) (test 0.33 K/ L 0.04-0.54 htxp=522) BASOPHILS ABSOLUTE COUNT (BEAKER) (test 0.10 K/ L 0.01-0.08 urrm=467) IMMATURE GRANULOCYTES-RELATIVE PERCENT (BEAKER) 2 % 0-1 (test rwff=5327) POCT-GLUCOSE [id number] 20:45:00 Test Item Value Reference Range Comments POC-GLUCOSE METER (BEAKER) 94 mg/dL 70-110 TESTED AT [address] (test bunb=3960) [place] [address] POCT-GLUCOSE [id number] 16:56:00 Test Item Value Reference Range Comments POC-GLUCOSE METER (BEAKER) 98 mg/dL 70-110 TESTED AT [address] (test mupi=7277) [place] [address] POCT-GLUCOSE [id number] 16:23:00 Test Item Value Reference Range Comments POC-GLUCOSE METER (BEAKER) 90 mg/dL 70-110 TESTED AT [address] (test gxec=0673) [place] [address] POCT-GLUCOSE [id number] 07:53:00 Test Item Value Reference Range Comments POC-GLUCOSE METER (BEAKER) 84 mg/dL 70-110 TESTED AT [address] (test fkqi=2979) [place] [address] BASIC METABOLIC [id number] 06:59:00 Test Item Value Reference Range Comments SODIUM (BEAKER) (test 137 meq/L 136-145 jntc=685) POTASSIUM (BEAKER) (test 4.1 meq/L 3.5-5.1 xkje=334) CHLORIDE (BEAKER) (test 102 meq/L 98-107 nnat=513) CO2 (BEAKER) (test 23 meq/L 22-29 txws=270) BLOOD UREA NITROGEN 38 mg/dL 7-21 (BEAKER) (test qptk=016) CREATININE (BEAKER) (test 5.73 mg/dL 0.57-1.25 xjdx=085) GLUCOSE RANDOM (BEAKER) 87 mg/dL 70-105 (test bxlj=320) CALCIUM (BEAKER) (test 9.3 mg/dL 8.4-10.2 hsqm=936) EGFR (BEAKER) (test 10 mL/min/1.73 sq m ESTIMATED GFR IS NOT dfeq=6060) ACCURATE CREATININE CLEARANCE IN PREDICTING GLOMERULAR FILTRATION RATE. ESTIMATED GFR IS NOT APPLICABLE FOR DIALYSIS PATIENTS. [id number] 06:51:00 Test Item Value Reference Range Comments MAGNESIUM (BEAKER) (test hzsz=542) 2.4 mg/dL 1.6-2.6 CBC W/PLT COUNT & AUTO [id number] 05:26:00 Test Item Value Reference Range Comments WHITE BLOOD CELL COUNT (BEAKER) (test caaw=499) 9.3 K/ L 3.5-10.5 RED BLOOD CELL COUNT (BEAKER) (test xzwb=556) 3.07 M/ L 4.63-6.08 HEMOGLOBIN (BEAKER) (test kwtl=318) 9.9 GM/DL 13.7-17.5 HEMATOCRIT (BEAKER) (test hpbu=164) 30.8 % 40.1-51.0 MEAN CORPUSCULAR VOLUME (BEAKER) (test lzed=653) 100.3 fL 79.0-92.2 MEAN CORPUSCULAR HEMOGLOBIN (BEAKER) (test 32.2 pg 25.7-32.2 mstm=704) MEAN CORPUSCULAR HEMOGLOBIN CONC (BEAKER) (test 32.1 GM/DL 32.3-36.5 migl=582) RED CELL DISTRIBUTION WIDTH (BEAKER) (test 15.1 % 11.6-14.4 wsaa=395) PLATELET COUNT (BEAKER) (test efxa=022) 195 K/CU MM 150-450 MEAN PLATELET VOLUME (BEAKER) (test mnbg=233) 11.4 fL 9.4-12.4 NUCLEATED RED BLOOD CELLS (BEAKER) (test 0 /100 WBC 0-0 qmhx=138) NEUTROPHILS RELATIVE PERCENT (BEAKER) (test 73 % aoqr=798) LYMPHOCYTES RELATIVE PERCENT (BEAKER) (test 10 % fymi=806) MONOCYTES RELATIVE PERCENT (BEAKER) (test 10 % yezq=327) EOSINOPHILS RELATIVE PERCENT (BEAKER) (test 4 % fkwl=603) BASOPHILS RELATIVE PERCENT (BEAKER) (test 1 % hmwm=484) NEUTROPHILS ABSOLUTE COUNT (BEAKER) (test 6.76 K/ L 1.78-5.38 hfxg=859) LYMPHOCYTES ABSOLUTE COUNT (BEAKER) (test 0.97 K/ L 1.32-3.57 ccky=189) MONOCYTES ABSOLUTE COUNT (BEAKER) (test 0.92 K/ L 0.30-0.82 ziex=614) EOSINOPHILS ABSOLUTE COUNT (BEAKER) (test 0.39 K/ L 0.04-0.54 cczj=333) BASOPHILS ABSOLUTE COUNT (BEAKER) (test 0.09 K/ L 0.01-0.08 oxnn=339) IMMATURE GRANULOCYTES-RELATIVE PERCENT (BEAKER) 2 % 0-1 (test umfv=8024) POCT-GLUCOSE [id number] 21:43:00 Test Item Value Reference Range Comments POC-GLUCOSE METER (BEAKER) 135 mg/dL 70-110 TESTED AT [address] (test ivps=9567) [place] [address] POCT-GLUCOSE [id number] 17:15:00 Test Item Value Reference Range Comments POC-GLUCOSE METER (BEAKER) 158 mg/dL 70-110 TESTED AT [address] (test hjii=6725) [place] [id number] POCT-GLUCOSE [id number] 14:21:00 Test Item Value Reference Range Comments POC-GLUCOSE METER (BEAKER) 165 mg/dL 70-110 TESTED AT [address] (test xunj=8272) [place] [address] ANG, REMOVAL OF TUNNELED CVC W/O [id number] 14:06:00Reason for exam:-> bacteremiaFINAL REPORT Left IJ tunneled dialysis catheter removal History: Bacteremia Modality: None. Sedation : None Digital Media Planner: Juan A Holden MD. Latin Professor: BING Stapleton. Approach: Left anterior chest. Estimated [...] MDReport Verified Date/Time: 10/29/2018 14:06:46 Reading Location: [place] [address] Angio Body Reading Room Electronically signed by: JUAN A HOLDEN MD on 02:06 PMPOCT-GLUCOSE [id number] 07:46:00 Test Item Value Reference Range Comments POC-GLUCOSE METER (BEAKER) 140 mg/dL 70-110 TESTED AT [address] (test ntpj=8863) [facility] [address] BASIC METABOLIC [id number] 06:42:00 Test Item Value Reference Range Comments SODIUM (BEAKER) (test 139 meq/L 136-145 hrur=390) POTASSIUM (BEAKER) (test 3.8 meq/L 3.5-5.1 sfvq=470) CHLORIDE (BEAKER) (test 103 meq/L 98-107 uohb=981) CO2 (BEAKER) (test 26 meq/L 22-29 lcnv=397) BLOOD UREA NITROGEN 25 mg/dL 7-21 (BEAKER) (test obqu=508) CREATININE (BEAKER) (test 4.06 mg/dL 0.57-1.25 mgpj=017) GLUCOSE RANDOM (BEAKER) 99 mg/dL 70-105 (test nsnd=689) CALCIUM (BEAKER) (test 9.1 mg/dL 8.4-10.2 ifes=917) EGFR (BEAKER) (test 14 mL/min/1.73 sq m ESTIMATED GFR IS NOT phvz=3167) ACCURATE CREATININE CLEARANCE IN PREDICTING GLOMERULAR FILTRATION RATE. ESTIMATED GFR IS NOT APPLICABLE FOR DIALYSIS PATIENTS. [id number] 06:36:00 Test Item Value Reference Range Comments MAGNESIUM (BEAKER) (test gbub=646) 2.4 mg/dL 1.6-2.6 CBC W/PLT COUNT & AUTO [id number] 06:00:00 Test Item Value Reference Range Comments WHITE BLOOD CELL COUNT (BEAKER) (test feog=539) 8.9 K/ L 3.5-10.5 RED BLOOD CELL COUNT (BEAKER) (test dura=760) 3.33 M/ L 4.63-6.08 HEMOGLOBIN (BEAKER) (test ylvc=865) 10.6 GM/DL 13.7-17.5 HEMATOCRIT (BEAKER) (test xkoj=223) 32.9 % 40.1-51.0 MEAN CORPUSCULAR VOLUME (BEAKER) (test svvu=669) 98.8 fL 79.0-92.2 MEAN CORPUSCULAR HEMOGLOBIN (BEAKER) (test 31.8 pg 25.7-32.2 lotz=456) MEAN CORPUSCULAR HEMOGLOBIN CONC (BEAKER) (test 32.2 GM/DL 32.3-36.5 eqye=946) RED CELL DISTRIBUTION WIDTH (BEAKER) (test 14.9 % 11.6-14.4 tygb=098) PLATELET COUNT (BEAKER) (test dsle=667) 199 K/CU MM 150-450 MEAN PLATELET VOLUME (BEAKER) (test tice=963) 11.6 fL 9.4-12.4 NUCLEATED RED BLOOD CELLS (BEAKER) (test 0 /100 WBC 0-0 iyne=659) NEUTROPHILS RELATIVE PERCENT (BEAKER) (test 75 % cmkh=572) LYMPHOCYTES RELATIVE PERCENT (BEAKER) (test 9 % qdkz=007) MONOCYTES RELATIVE PERCENT (BEAKER) (test 9 % kwnx=654) EOSINOPHILS RELATIVE PERCENT (BEAKER) (test 4 % lwln=127) BASOPHILS RELATIVE PERCENT (BEAKER) (test 1 % abrn=862) NEUTROPHILS ABSOLUTE COUNT (BEAKER) (test 6.66 K/ L 1.78-5.38 bkrf=644) LYMPHOCYTES ABSOLUTE COUNT (BEAKER) (test 0.81 K/ L 1.32-3.57 szbn=694) MONOCYTES ABSOLUTE COUNT (BEAKER) (test 0.83 K/ L 0.30-0.82 jhoy=189) EOSINOPHILS ABSOLUTE COUNT (BEAKER) (test 0.36 K/ L 0.04-0.54 xiqr=746) BASOPHILS ABSOLUTE COUNT (BEAKER) (test 0.07 K/ L 0.01-0.08 dgpe=640) IMMATURE GRANULOCYTES-RELATIVE PERCENT (BEAKER) 2 % 0-1 (test wbzn=5358) POCT-GLUCOSE [id number] 00:22:00 Test Item Value Reference Range Comments POC-GLUCOSE METER (BEAKER) 114 mg/dL 70-110 TESTED AT [address] (test jksx=5298) [place] [id number] POCT-GLUCOSE [id number] 13:17:00 Test Item Value Reference Range Comments POC-GLUCOSE METER (BEAKER) 127 mg/dL 70-110 TESTED AT [address] (test birs=0323) [place] [address] POCT-GLUCOSE [id number] 08:16:00 Test Item Value Reference Range Comments POC-GLUCOSE METER (BEAKER) 95 mg/dL 70-110 TESTED AT [address] (test sksd=4628) [place] [id number] BASIC METABOLIC [id number] 06:49:00 Test Item Value Reference Range Comments SODIUM (BEAKER) (test 133 meq/L 136-145 yguj=233) POTASSIUM (BEAKER) (test 3.9 meq/L 3.5-5.1 wptf=488) CHLORIDE (BEAKER) (test 98 meq/L 98-107 thtt=374) CO2 (BEAKER) (test 24 meq/L 22-29 wdjl=747) BLOOD UREA NITROGEN 45 mg/dL 7-21 (BEAKER) (test eqbb=608) CREATININE (BEAKER) (test 5.45 mg/dL 0.57-1.25 pwxm=855) GLUCOSE RANDOM (BEAKER) 89 mg/dL 70-105 (test risn=847) CALCIUM (BEAKER) (test 9.2 mg/dL 8.4-10.2 mmbk=193) EGFR (BEAKER) (test 10 mL/min/1.73 sq m ESTIMATED GFR IS NOT hxcb=5170) ACCURATE CREATININE CLEARANCE IN PREDICTING GLOMERULAR FILTRATION RATE. ESTIMATED GFR IS NOT APPLICABLE FOR DIALYSIS PATIENTS. [id number] 06:46:00 Test Item Value Reference Range Comments MAGNESIUM (BEAKER) (test sald=039) 2.5 mg/dL 1.6-2.6 CBC W/PLT COUNT & AUTO [id number] 06:21:00 Test Item Value Reference Range Comments WHITE BLOOD CELL COUNT (BEAKER) (test uxwd=998) 8.3 K/ L 3.5-10.5 RED BLOOD CELL COUNT (BEAKER) (test lkkt=412) 3.16 M/ L 4.63-6.08 HEMOGLOBIN (BEAKER) (test irqq=512) 10.2 GM/DL 13.7-17.5 HEMATOCRIT (BEAKER) (test otry=422) 31.6 % 40.1-51.0 MEAN CORPUSCULAR VOLUME (BEAKER) (test yyul=616) 100.0 fL 79.0-92.2 MEAN CORPUSCULAR HEMOGLOBIN (BEAKER) (test 32.3 pg 25.7-32.2 rlku=990) MEAN CORPUSCULAR HEMOGLOBIN CONC (BEAKER) (test 32.3 GM/DL 32.3-36.5 jrgc=681) RED CELL DISTRIBUTION WIDTH (BEAKER) (test 14.9 % 11.6-14.4 nrzm=945) PLATELET COUNT (BEAKER) (test ruur=681) 155 K/CU MM 150-450 MEAN PLATELET VOLUME (BEAKER) (test tvbr=499) 11.8 fL 9.4-12.4 NUCLEATED RED BLOOD CELLS (BEAKER) (test 0 /100 WBC 0-0 ckgr=757) NEUTROPHILS RELATIVE PERCENT (BEAKER) (test 70 % udze=801) LYMPHOCYTES RELATIVE PERCENT (BEAKER) (test 10 % asmn=404) MONOCYTES RELATIVE PERCENT (BEAKER) (test 12 % gdnr=261) EOSINOPHILS RELATIVE PERCENT (BEAKER) (test 6 % fiyn=153) BASOPHILS RELATIVE PERCENT (BEAKER) (test 1 % ttpx=655) NEUTROPHILS ABSOLUTE COUNT (BEAKER) (test 5.80 K/ L 1.78-5.38 hekw=348) LYMPHOCYTES ABSOLUTE COUNT (BEAKER) (test 0.86 K/ L 1.32-3.57 tmup=735) MONOCYTES ABSOLUTE COUNT (BEAKER) (test 0.96 K/ L 0.30-0.82 fjbz=190) EOSINOPHILS ABSOLUTE COUNT (BEAKER) (test 0.48 K/ L 0.04-0.54 lgct=833) BASOPHILS ABSOLUTE COUNT (BEAKER) (test 0.09 K/ L 0.01-0.08 jqay=335) IMMATURE GRANULOCYTES-RELATIVE PERCENT (BEAKER) 2 % 0-1 (test uqcr=3202) POCT-GLUCOSE [id number] 15:51:00 Test Item Value Reference Range Comments POC-GLUCOSE METER (BEAKER) 126 mg/dL 70-110 TESTED AT [address] (test ylcq=5792) [place] [address] RAD, CHEST, 1 VIEW, NON [id number] 15:03:00Reason for exam:->LIJ CVC placementShould this be [...] Verified Date/Time : 10/27/2018 15:03:06 Reading Location: [place] [address] Angio Body Reading Room POCT- GLUCOSE [id number] 12:34:00 Test Item Value Reference Range Comments POC-GLUCOSE METER (BEAKER) 220 mg/dL 70-110 TESTED AT [address] (test udvn=8948) [place] [address] POCT-GLUCOSE [id number] 12:33:00 Test Item Value Reference Range Comments POC-GLUCOSE METER (BEAKER) 118 mg/dL 70-110 TESTED AT [address] (test xahm=9246) [place] [id number] BASIC METABOLIC [id number] 05:06:00 Test Item Value Reference Range Comments SODIUM (BEAKER) (test 137 meq/L 136-145 exem=512) POTASSIUM (BEAKER) (test 3.7 meq/L 3.5-5.1 xszf=886) CHLORIDE (BEAKER) (test 104 meq/L 98-107 iyic=100) CO2 (BEAKER) (test 23 meq/L 22-29 gwbg=129) BLOOD UREA NITROGEN 32 mg/dL 7-21 (BEAKER) (test gypa=570) CREATININE (BEAKER) (test 3.88 mg/dL 0.57-1.25 fxza=995) GLUCOSE RANDOM (BEAKER) 122 mg/dL 70-105 (test uyqc=021) CALCIUM (BEAKER) (test 9.6 mg/dL 8.4-10.2 grbr=329) EGFR (BEAKER) (test 15 mL/min/1.73 sq m ESTIMATED GFR IS NOT hlrr=3159) ACCURATE CREATININE CLEARANCE IN PREDICTING GLOMERULAR FILTRATION RATE. ESTIMATED GFR IS NOT APPLICABLE FOR DIALYSIS PATIENTS. [id number] 04:49:00 Test Item Value Reference Range Comments MAGNESIUM (BEAKER) (test lvoq=272) 2.3 mg/dL 1.6-2.6 CBC W/PLT COUNT & AUTO [id number] 04:46:00 Test Item Value Reference Range Comments WHITE BLOOD CELL COUNT (BEAKER) (test mrtc=087) 8.8 K/ L 3.5-10.5 RED BLOOD CELL COUNT (BEAKER) (test hsyo=453) 3.09 M/ L 4.63-6.08 HEMOGLOBIN (BEAKER) (test docp=829) 9.9 GM/DL 13.7-17.5 HEMATOCRIT (BEAKER) (test fziw=879) 31.3 % 40.1-51.0 MEAN CORPUSCULAR VOLUME (BEAKER) (test jeii=371) 101.3 fL 79.0-92.2 MEAN CORPUSCULAR HEMOGLOBIN (BEAKER) (test 32.0 pg 25.7-32.2 gawl=597) MEAN CORPUSCULAR HEMOGLOBIN CONC (BEAKER) (test 31.6 GM/DL 32.3-36.5 vkyk=886) RED CELL DISTRIBUTION WIDTH (BEAKER) (test 15.1 % 11.6-14.4 jkco=161) PLATELET COUNT (BEAKER) (test xgfu=612) 147 K/CU MM 150-450 MEAN PLATELET VOLUME (BEAKER) (test ykkz=987) 11.6 fL 9.4-12.4 NUCLEATED RED BLOOD CELLS (BEAKER) (test 0 /100 WBC 0-0 skcg=437) NEUTROPHILS RELATIVE PERCENT (BEAKER) (test 72 % hbtk=079) LYMPHOCYTES RELATIVE PERCENT (BEAKER) (test 8 % ppel=299) MONOCYTES RELATIVE PERCENT (BEAKER) (test 12 % xobi=685) EOSINOPHILS RELATIVE PERCENT (BEAKER) (test 5 % ajqx=345) BASOPHILS RELATIVE PERCENT (BEAKER) (test 1 % xvjo=459) NEUTROPHILS ABSOLUTE COUNT (BEAKER) (test 6.37 K/ L 1.78-5.38 rhie=395) LYMPHOCYTES ABSOLUTE COUNT (BEAKER) (test 0.72 K/ L 1.32-3.57 lkrd=289) MONOCYTES ABSOLUTE COUNT (BEAKER) (test 1.07 K/ L 0.30-0.82 oxci=851) EOSINOPHILS ABSOLUTE COUNT (BEAKER) (test 0.44 K/ L 0.04-0.54 pkci=828) BASOPHILS ABSOLUTE COUNT (BEAKER) (test 0.08 K/ L 0.01-0.08 ndal=295) IMMATURE GRANULOCYTES-RELATIVE PERCENT (BEAKER) 1 % 0-1 (test ivlu=9919) POCT-GLUCOSE [id number] 22:42:00 Test Item Value Reference Range Comments POC-GLUCOSE METER (BEAKER) 143 mg/dL 70-110 TESTED AT [address] (test izdr=6801) [place] [address] POCT-GLUCOSE [id number] 19:01:00 Test Item Value Reference Range Comments POC-GLUCOSE METER (BEAKER) 175 mg/dL 70-110 TESTED AT [address] (test mqcf=2372) [place] [address] POCT-GLUCOSE [id number] 12:50:00 Test Item Value Reference Range Comments POC-GLUCOSE METER (BEAKER) 122 mg/dL 70-110 TESTED AT [address] (test fged=7304) [place] [address] BLOOD [id number] 10:24:00 Test Item Value Reference Range Comments CULTURE (BEAKER) From Aerobic And Anaerobic (test qhsd=8671) Bottles Same organism has been isolated from cultures(s) of the same body site within 3 days. Repeat identification and susceptibility testing performed only after consultation with the clinical microbiology laboratory.Refer to previous culture ofStaphylococcus aureus GRAM STAIN RESULT From aerobic and (BEAKER) (test anaerobic bottles: mmmn=0752) gram positive cocci in clusters BLOOD [id number] 10:22:00 Test Item Value Reference Range Comments CULTURE (BEAKER) (test STAPHYLOCOCCUS AUREUS From Aerobic And zapo=2080) Anaerobic Bottles Staphylococcus aureus Clindamycin (test code=10) Erythromycin (test code=4) Linezolid (test code=40) Nitrofurantoin (test code=23) Oxacillin (test code=14) Rifampin (test code=43) Tetracycline (test code=2) Trimethoprim + Sulfamethoxazole (test code=47) Vancomycin (test code=13) GRAM STAIN RESULT From aerobic and (BEAKER) (test moum=1688) anaerobic bottles: gram positive cocci in clusters PROTHROMBIN [id number] 07:36:00 Test Item Value Reference Range Comments PROTIME (BEAKER) (test vkzh=474) 15.6 seconds 11.9-14.2 INR (BEAKER) (test yyim=452) 1.3 <=5.9 Effective 07/29/2018: PT Reference Range ChangeNew: 11.9-14.2 Previous: 11.7- 14.7RECOMMENDED COUMADIN/WARFARIN INR THERAPY RANGESSTANDARD DOSE: 2.0-3.0 Includes: PROPHYLAXIS for venous thrombosis, systemic embolization; TREATMENT for venous thrombosis and/or pulmonary embolus.HIGH RISK: Target INR is2.5-3.5 for patients wiht mechanical heart valves.POCT-GLUCOSE [id number] 07:31:00 Test Item Value Reference Range Comments POC-GLUCOSE METER (BEAKER) 127 mg/dL 70-110 TESTED AT [address] (test jgfo=6698) [facility] [address] RAD, CHEST, 1 VIEW, NON [id number] 04:36:00Reason for exam:->respiratory failureShould this be performed [...] contour. Additional findings: None. Signed : Kvng [place] MDReport Verified Date/Time: 10/26/2018 04:36:35 BASIC METABOLIC [id number] 04:30:00 Test Item Value Reference Range Comments SODIUM (BEAKER) (test 131 meq/L 136-145 szmj=860) POTASSIUM (BEAKER) (test 4.3 meq/L 3.5-5.1 jcdx=723) CHLORIDE (BEAKER) (test 98 meq/L 98-107 vyoh=133) CO2 (BEAKER) (test 20 meq/L 22-29 nodt=956) BLOOD UREA NITROGEN 46 mg/dL 7-21 (BEAKER) (test teho=706) CREATININE (BEAKER) (test 5.26 mg/dL 0.57-1.25 xdkb=726) GLUCOSE RANDOM (BEAKER) 130 mg/dL 70-105 (test frem=995) CALCIUM (BEAKER) (test 9.8 mg/dL 8.4-10.2 juov=935) EGFR (BEAKER) (test 11 mL/min/1.73 sq m ESTIMATED GFR IS NOT oapt=8061) ACCURATE CREATININE CLEARANCE IN PREDICTING GLOMERULAR FILTRATION RATE. ESTIMATED GFR IS NOT APPLICABLE FOR DIALYSIS PATIENTS. [id number] 04:24:00 Test Item Value Reference Range Comments PHOSPHORUS (BEAKER) (test iurf=943) 4.2 mg/dL 2.3-4.7 [id number] 04:24:00 Test Item Value Reference Range Comments MAGNESIUM (BEAKER) (test uijp=396) 2.7 mg/dL 1.6-2.6 HEPATIC FUNCTION [id number] 04:24:00 Test Item Value Reference Range Comments TOTAL PROTEIN (BEAKER) (test lwiw=946) 6.8 gm/dL 6.0-8.3 ALBUMIN (BEAKER) (test cufa=9536) 3.4 g/dL 3.5-5.0 BILIRUBIN TOTAL (BEAKER) (test ygng=521) 1.6 mg/dL 0.2-1.2 BILIRUBIN DIRECT (BEAKER) (test cton=140) 0.8 mg/dL 0.1-0.5 ALKALINE PHOSPHATASE (BEAKER) (test qsgj=373) 96 U/L 40-150 AST (SGOT) (BEAKER) (test iekb=265) 23 U/L 5-34 ALT (SGPT) (BEAKER) (test gzlr=893) 10 U/L 6-55 CBC W/PLT COUNT & AUTO [id number] 04:10:00 Test Item Value Reference Range Comments WHITE BLOOD CELL COUNT (BEAKER) (test lppg=943) 11.2 K/ L 3.5-10.5 RED BLOOD CELL COUNT (BEAKER) (test ekvx=162) 3.28 M/ L 4.63-6.08 HEMOGLOBIN (BEAKER) (test hfib=449) 10.4 GM/DL 13.7-17.5 HEMATOCRIT (BEAKER) (test ouol=251) 33.9 % 40.1-51.0 MEAN CORPUSCULAR VOLUME (BEAKER) (test ashv=682) 103.4 fL 79.0-92.2 MEAN CORPUSCULAR HEMOGLOBIN (BEAKER) (test 31.7 pg 25.7-32.2 dvsx=338) MEAN CORPUSCULAR HEMOGLOBIN CONC (BEAKER) (test 30.7 GM/DL 32.3-36.5 ulzr=345) RED CELL DISTRIBUTION WIDTH (BEAKER) (test 15.1 % 11.6-14.4 tuln=258) PLATELET COUNT (BEAKER) (test kdsw=415) 136 K/CU MM 150-450 MEAN PLATELET VOLUME (BEAKER) (test ubsk=223) 11.5 fL 9.4-12.4 NUCLEATED RED BLOOD CELLS (BEAKER) (test 0 /100 WBC 0-0 djyo=724) NEUTROPHILS RELATIVE PERCENT (BEAKER) (test 78 % yvps=974) LYMPHOCYTES RELATIVE PERCENT (BEAKER) (test 7 % lasy=744) MONOCYTES RELATIVE PERCENT (BEAKER) (test 10 % fyom=102) EOSINOPHILS RELATIVE PERCENT (BEAKER) (test 4 % hzpn=027) BASOPHILS RELATIVE PERCENT (BEAKER) (test 1 % feer=474) NEUTROPHILS ABSOLUTE COUNT (BEAKER) (test 8.76 K/ L 1.78-5.38 qlie=803) LYMPHOCYTES ABSOLUTE COUNT (BEAKER) (test 0.78 K/ L 1.32-3.57 vhnl=337) MONOCYTES ABSOLUTE COUNT (BEAKER) (test 1.13 K/ L 0.30-0.82 pieh=236) EOSINOPHILS ABSOLUTE COUNT (BEAKER) (test 0.41 K/ L 0.04-0.54 ewfj=426) BASOPHILS ABSOLUTE COUNT (BEAKER) (test 0.06 K/ L 0.01-0.08 rjwl=206) IMMATURE GRANULOCYTES-RELATIVE PERCENT (BEAKER) 1 % 0-1 (test iyuz=8056) U/S, EXTREMITY (NON-VASCULAR), LEFT, [id number] 02:10:00Reason for exam:- >old LUE AVF site. [...] Gisel Vega Verified Date/Time: 10/26/2018 02:10:19 POCT-GLUCOSE [id number] 21:28:00 Test Item Value Reference Range Comments POC-GLUCOSE METER (BEAKER) 224 mg/dL 70-110 TESTED AT [address] (test tzlh=4275) [facility] [id number] POCT-GLUCOSE [id number] 17:44:00 Test Item Value Reference Range Comments POC-GLUCOSE METER (BEAKER) 204 mg/dL 70-110 TESTED AT [address] (test wvyx=6585) [facility] [address] POCT-GLUCOSE [id number] 13:38:00 Test Item Value Reference Range Comments POC-GLUCOSE METER (BEAKER) 153 mg/dL 70-110 TESTED AT [address] (test tkpp=5422) [facility] [address] LACTIC ACID, [id number] 11:56:00 Test Item Value Reference Range Comments LACTATE BLOOD VENOUS (2) 1.4 mmol/L 0.5-2.2 Specimen slightly hemolyzed (BEAKER) (test mnur=5363) POCT-GLUCOSE [id number] 09:40:00 Test Item Value Reference Range Comments POC-GLUCOSE METER (BEAKER) 114 mg/dL 70-110 TESTED AT [facility] [address] (test xflb=1646) [facility] [address] RAD, CHEST, 1 VIEW, NON [id number] 08:01:00Reason for exam:->respiratory failureShould this be performed [...] Giraldo Verified Date/Time: 10/25/2018 08:01:10 BASIC METABOLIC [id number] 04:46:00 Test Item Value Reference Range Comments SODIUM (BEAKER) (test 131 meq/L 136-145 lqld=208) POTASSIUM (BEAKER) (test 4.0 meq/L 3.5-5.1 dzyt=606) CHLORIDE (BEAKER) (test 97 meq/L 98-107 mxqk=041) CO2 (BEAKER) (test 22 meq/L 22-29 tyhv=578) BLOOD UREA NITROGEN 23 mg/dL 7-21 (BEAKER) (test vtdj=553) CREATININE (BEAKER) (test 3.47 mg/dL 0.57-1.25 ewzv=495) GLUCOSE RANDOM (BEAKER) 116 mg/dL 70-105 (test otgn=461) CALCIUM (BEAKER) (test 9.9 mg/dL 8.4-10.2 Discordant CALCIUM neqh=316) result Compared to previous result, Clinical correlation required. EGFR (BEAKER) (test 17 mL/min/1.73 sq m ESTIMATED GFR IS NOT ounf=3516) ACCURATE CREATININE CLEARANCE IN PREDICTING GLOMERULAR FILTRATION RATE. ESTIMATED GFR IS NOT APPLICABLE FOR DIALYSIS PATIENTS. Specimen slightly [id number] 04:45:00 Test Item Value Reference Range Comments PHOSPHORUS (BEAKER) (test ynfp=105) 2.9 mg/dL 2.3-4.7 [id number] 04:45:00 Test Item Value Reference Range Comments MAGNESIUM (BEAKER) (test goft=021) 2.4 mg/dL 1.6-2.6 TROPONIN [id number] 04:45:00 Test Item Value Reference Range Comments TROPONIN I (BEAKER) (test duuf=373) 3.45 ng/mL 0.00-0.03 Troponin I (TnI) levels [...] failure, acidosis, acute neurological disease, and persistent tachyarrhythmia.PT/[id number] 04:22:00 Test Item Value Reference Range Comments PROTIME (BEAKER) (test kdem=921) 17.2 seconds 11.9-14.2 INR (BEAKER) (test xihz=000) 1.5 <=5.9 PARTIAL THROMBOPLASTIN TIME (BEAKER) (test 43.5 seconds 22.5-36.0 zatq=197) Effective 07/29/2018: PT Reference Range ChangeNew: 11.9-14.2 Previous: 11.7- 14.7RECOMMENDED COUMADIN/WARFARIN INR THERAPY RANGESSTANDARD DOSE: 2.0-3.0 Includes: PROPHYLAXIS for venous thrombosis, systemic embolization; TREATMENT for venous thrombosis and/or pulmonary embolus.HIGH RISK: Target INR is2.5-3.5 for patients wiht mechanical heart valves.PROTHROMBIN TIME/[id number] 04:21: 00 Test Item Value Reference Range Comments PROTIME (BEAKER) (test sukm=859) 17.2 seconds 11.9-14.2 INR (BEAKER) (test frxu=871) 1.5 <=5.9 Effective 07/29/2018: PT Reference Range ChangeNew: 11.9-14.2 Previous: 11.7- 14.7RECOMMENDED COUMADIN/WARFARIN INR THERAPY RANGESSTANDARD DOSE: 2.0-3.0 Includes: PROPHYLAXIS for venous thrombosis, systemic embolization; TREATMENT for venous thrombosis and/or pulmonary embolus.HIGH RISK: Target INR is2.5-3.5 for patients wiht mechanical heart valves.CBC W/PLT COUNT & AUTO [id number] 04:00:00 Test Item Value Reference Range Comments WHITE BLOOD CELL COUNT (BEAKER) (test ldgz=496) 18.8 K/ L 3.5-10.5 RED BLOOD CELL COUNT (BEAKER) (test icbu=305) 3.19 M/ L 4.63-6.08 HEMOGLOBIN (BEAKER) (test tzvd=997) 10.5 GM/DL 13.7-17.5 HEMATOCRIT (BEAKER) (test fbvd=473) 32.7 % 40.1-51.0 MEAN CORPUSCULAR VOLUME (BEAKER) (test atqy=065) 102.5 fL 79.0-92.2 MEAN CORPUSCULAR HEMOGLOBIN (BEAKER) (test 32.9 pg 25.7-32.2 rfef=313) MEAN CORPUSCULAR HEMOGLOBIN CONC (BEAKER) (test 32.1 GM/DL 32.3-36.5 mzec=001) RED CELL DISTRIBUTION WIDTH (BEAKER) (test 15.3 % 11.6-14.4 urgm=869) PLATELET COUNT (BEAKER) (test hrex=929) 128 K/CU MM 150-450 MEAN PLATELET VOLUME (BEAKER) (test kgec=047) 10.8 fL 9.4-12.4 NUCLEATED RED BLOOD CELLS (BEAKER) (test 0 /100 WBC 0-0 ybxn=892) NEUTROPHILS RELATIVE PERCENT (BEAKER) (test 88 % jkxd=103) LYMPHOCYTES RELATIVE PERCENT (BEAKER) (test 3 % gjud=865) MONOCYTES RELATIVE PERCENT (BEAKER) (test 6 % rgsv=906) EOSINOPHILS RELATIVE PERCENT (BEAKER) (test 1 % ymhq=086) BASOPHILS RELATIVE PERCENT (BEAKER) (test 0 % ktlx=441) NEUTROPHILS ABSOLUTE COUNT (BEAKER) (test 16.58 K/ L 1.78-5.38 udvi=838) LYMPHOCYTES ABSOLUTE COUNT (BEAKER) (test 0.59 K/ L 1.32-3.57 dbyu=409) MONOCYTES ABSOLUTE COUNT (BEAKER) (test 1.18 K/ L 0.30-0.82 rird=076) EOSINOPHILS ABSOLUTE COUNT (BEAKER) (test 0.13 K/ L 0.04-0.54 htbk=660) BASOPHILS ABSOLUTE COUNT (BEAKER) (test 0.07 K/ L 0.01-0.08 ulic=763) IMMATURE GRANULOCYTES-RELATIVE PERCENT (BEAKER) 1 % 0-1 (test cgyh=1168) TROPONIN [id number] 00:28:00 Test Item Value Reference Range Comments TROPONIN I (BEAKER) (test ppro=049) 2.92 ng/mL 0.00-0.03 Troponin I (TnI) levels [...] acidosis, acute neurological disease, and persistent tachyarrhythmia.POCT-GLUCOSE [id number] 22:16:00 Test Item Value Reference Range Comments POC-GLUCOSE METER (BEAKER) 135 mg/dL 70-110 TESTED AT [address] (test sqws=7099) [facility] [address] RAD, CHEST, 1 VIEW, NON [id number] 18:31:00Reason for exam:->sobShould this be performed at [...] [place] Verified Date/Time: 10/24/2018 18:31:29 Reading Location: [facility] [id number] Ortho Consult Reading Room Electronically signed by: BRIDGET DEL ROSARIO M.D. on 2018 06:31 PMTROPONIN [id number] 17:33:00 Test Item Value Reference Range Comments TROPONIN I (MARTIR) (test phqz=688) 3.57 ng/mL 0.00-0.03 Troponin I (TnI) levels [...] acidosis, acute neurological disease, and persistent tachyarrhythmia.POCT-GLUCOSE [id number] 16:59:00 Test Item Value Reference Range Comments POC-GLUCOSE METER (MARTIR) 131 mg/dL 70-110 TESTED AT [facility] [address] [facility] [address] (test xxin=2699) [facility] [address] BLOOD CULTURE IDENTIFICATION [id number] 15:25:00 Test Item Value Reference Range Comments LISTERIA MONOCYTOGENES Not detected Not detected (test dzfm=1640271) STAPHYLOCOCCUS (test Detected Not detected illl=3362045) STAPHYLOCOCCUS AUREUS Detected Not detected Methicillin-susceptible S. (test xibx=6751945) aureus (MSSA)First-line therapy: Cefazolin or Oxacillin (Oxacillin preferred if WEATHERIZATION OPERATIONS MANAGER involvement) ID CONSULTATION REQUIREDStaphylococcus aureus DETECTEDMecA NOT DETECTED Reference Range: Not Detected STREPTOCOCCUS (test Not detected Not detected ochp=2948159) STREPTOCOCCUS AGALACTIAE Not detected Not detected (GROUP B) (test mmgh=2558509) STREPTOCOCCUS PNEUMONIAE Not detected Not detected (test dubl=1544721) STREPTOCOCCUS PYOGENES Not detected Not detected (GROUP A) (test gxvi=6797094) ACINETOBACTER BAUMANNII Not detected Not detected (test gdqo=2040814) HAEMOPHILUS INFLUENZAE Not detected Not detected (test whed=0528873) NEISSERIA MENINGITIDIS Not detected Not detected (test wail=6398234) ENTEROBACTERIACEAE (test Not detected Not detected rqdl=5208329) ENTEROBACTER CLOACOE Not detected Not detected COMPLEX (test jhfd=6056207) KLEBSIELLA OXYTOCA (test Not detected Not detected deuz=7293174) KLEBSIELLA PNEUMONIAE Not detected Not detected (test opwl=5778) PROTEUS (test Not detected Not detected rzpb=5099820) SERRATIA MARCESCENS (test Not detected Not detected fpfr=0180238) MITA ALBICANS (test Not detected Not detected ymnd=3781812) MITA GLABRATA (test Not detected Not detected gctw=5482188) MITA KRUSEI (test Not detected Not detected aerb=1537873) MITA PARAPSILOSIS (test Not detected Not detected kpey=0937912) MITA TROPICALIS (test Not detected Not detected sfik=4847031) ESCHERICHIA COLI (test Not detected Not detected yjaq=9187332) METHICILLIN-RESISTANCE Not detected Not detected GENE (test uuzr=5220608) VANCOMYCIN-RESISTANCE GENE (test jbzq=9851644) CARBAPENEM-RESISTANCE GENE (test htdr=3086013) ENTEROCOCCUS-BEAKER (test Not detected Not detected lvdl=4619283) PSEUDOMONAS Not detected Not detected AERUGINOSA-BEAKER (test xbgs=3390269) Other bacteria and resistance markers not targeted by this PCR panel cannot be excluded; therefore clinical correlation and follow up of serology, culture results, and other molecular studies is required. The results are not intended to be used as the sole means for clinical diagnosis or patient management decisions. This sample was tested at the [facility] Molecular [facility]ostics [facility] using the [employer]opoly Blood Culture ID Panel. It is FDA cleared and has been verified and approved by the [facility] for clinical use. This laboratory is CLIA-certified and College ofAmerican Pathologists (CAP)-accredited to perform high complexity testing.POCT-GLUCOSE [id number] 11:41:00 Test Item Value Reference Range Comments POC-GLUCOSE METER (BEAKER) 96 mg/dL 70-110 TESTED AT [facility] [address] (test lmse=9073) [facility] [address] TROPONIN [id number] 08:33:00 Test Item Value Reference Range Comments TROPONIN I (BEAKER) (test gnah=316) 1.86 ng/mL 0.00-0.03 Troponin I (TnI) levels [...] and persistent tachyarrhythmia.RAD, CHEST, 1 VIEW, NON [id number] 08:10:00Reason for exam:->respiratory failureShould this be performed [...] 10/24/2018 08:10:08 CBC W/PLT COUNT & AUTO [id number] 07:56:00 Test Item Value Reference Range Comments WHITE BLOOD CELL COUNT (BEAKER) (test sytj=600) 32.3 K/ L 3.5-10.5 RED BLOOD CELL COUNT (BEAKER) (test cnlc=734) 3.27 M/ L 4.63-6.08 HEMOGLOBIN (BEAKER) (test tzns=069) 10.6 GM/DL 13.7-17.5 HEMATOCRIT (BEAKER) (test aztt=754) 33.7 % 40.1-51.0 MEAN CORPUSCULAR VOLUME (BEAKER) (test vnnq=197) 103.1 fL 79.0-92.2 MEAN CORPUSCULAR HEMOGLOBIN (BEAKER) (test 32.4 pg 25.7-32.2 fxpz=276) MEAN CORPUSCULAR HEMOGLOBIN CONC (BEAKER) (test 31.5 GM/DL 32.3-36.5 xjsm=712) RED CELL DISTRIBUTION WIDTH (BEAKER) (test 15.4 % 11.6-14.4 bcjc=480) PLATELET COUNT (BEAKER) (test jtct=783) 162 K/CU MM 150-450 MEAN PLATELET VOLUME (BEAKER) (test tqnf=506) 11.2 fL 9.4-12.4 NUCLEATED RED BLOOD CELLS (BEAKER) (test 0 /100 WBC 0-0 rmth=187) (CELLAVISION MANUAL DIFF)2018-10-24 07:56:00 Test Item Value Reference Range Comments NEUTROPHILS - REL (CELLAVISION)(BEAKER) (test 81 % eoxv=3702) MONOCYTES - REL (CELLAVISION)(BEAKER) (test 5 % pcbd=0845) BASOPHILS - REL (CELLAVISION)(BEAKER) (test 1 % onzf=1781) METAMYELOCYTES - REL (CELLAVISION)(BEAKER) (test 1 % 0-0 mgvd=7531) BANDS - REL (CELLAVISION)(BEAKER) (test 12 % 0-10 vayh=4935) NEUTROPHILS - ABS (CELLAVISION)(BEAKER) (test 26.16 K/ul 1.78-5.38 ujkl=7801) MONOCYTES - ABS (CELLAVISION)(BEAKER) (test 1.62 K/uL 0.30-0.82 hfrw=2613) BASOPHILS - ABS (CELLAVISION)(BEAKER) (test 0.32 K/uL 0.01-0.08 nofj=1939) METAMYELOCYTES - ABS (CELLAVISION)(BEAKER) (test 0.32 K/uL 0.00-0.00 ftys=7723) BANDS - ABS (CELLAVISION)(BEAKER) (test 3.88 K/uL 0.00-0.80 axvi=3325) TOTAL COUNTED (BEAKER) (test lsmu=9843) 100 WBC MORPHOLOGY (BEAKER) (test hzoo=349) Normal GIANT PLATELETS (BEAKER) (test kafo=601) Present LARGE PLT(BEAKER) (test mbzw=4006) Present POLYCHROMATOPHILLIC RBCS(BEAKER) (test fymk=111) 1+ few ANISOCYTOSIS (BEAKER) (test eruj=729) 1+ few MACROCYTES (BEAKER) (test rpbh=670) 1+ few POIKILOCYTES (BEAKER) (test tryr=596) 1+ few OVALOCYTES (BEAKER) (test qqgf=317) 1+ few TEAR DROP CELLS (BEAKER) (test kwvt=630) 1+ few ARTIFACT (CELLAVISION)(BEAKER) (test ubtr=5678) Present PLATELET CONCENTRATION (CELLAVISION)(BEAKER) Adequate (test kxkv=1582) Received comment: User comments: Slide comments:LACTIC ACID, [id number] 03:32:00 Test Item Value Reference Range Comments LACTATE BLOOD ARTERIAL (2) 1.2 mmol/L 0.5-2.2 Specimen moderately hemolyzed (BEAKER) (test zwnk=1318) Specimen slightly ictericBLOOD GAS, [id number] 03:03:00 Test Item Value Reference Range Comments PH ARTERIAL (BEAKER) (test uacw=447) 7.46 7.35-7.45 PCO2 ARTERIAL (BEAKER) (test kwnt=434) 33 mmHg 35-45 PO2 ARTERIAL (BEAKER) (test urzy=540) 167 mmHg 80-90 O2 SATURATION ARTERIAL (BEAKER) (test vvlc=383) 99.2 % 96.0-97.0 HCO3 ARTERIAL (BEAKER) (test qgvt=776) 23 mmol/L 21-29 BASE EXCESS ARTERIAL (BEAKER) (test rzac=003) -0.8 mmol/L -2.0-3.0 PATIENT TEMPERATURE (BEAKER) (test qfvo=3486) 36.6 C FIO2 (BEAKER) (test qkzs=8102) 95.0 % [id number] 02:56:00 Test Item Value Reference Range Comments PROCALCITONIN (BEAKER) (test ewbi=3862) 3.47 ng/mL <0.05 SEPSIS RISK (ng/mL)Low: 0.05-0.50Intermediate: 0.51-2.00High: & gt;=2.01CBC W/PLT COUNT & AUTO [id number] 01:28:00 Test Item Value Reference Range Comments WHITE BLOOD CELL COUNT (BEAKER) (test yupn=640) 23.1 K/ L 3.5-10.5 RED BLOOD CELL COUNT (BEAKER) (test zjum=555) 2.96 M/ L 4.63-6.08 HEMOGLOBIN (BEAKER) (test tgll=614) 9.9 GM/DL 13.7-17.5 HEMATOCRIT (BEAKER) (test oclh=085) 31.0 % 40.1-51.0 MEAN CORPUSCULAR VOLUME (BEAKER) (test nhpd=386) 104.7 fL 79.0-92.2 MEAN CORPUSCULAR HEMOGLOBIN (BEAKER) (test 33.4 pg 25.7-32.2 aklj=009) MEAN CORPUSCULAR HEMOGLOBIN CONC (BEAKER) (test 31.9 GM/DL 32.3-36.5 lfwo=064) RED CELL DISTRIBUTION WIDTH (BEAKER) (test 15.5 % 11.6-14.4 iycz=926) PLATELET COUNT (BEAKER) (test qfda=583) 149 K/CU MM 150-450 MEAN PLATELET VOLUME (BEAKER) (test tafk=206) 10.4 fL 9.4-12.4 NUCLEATED RED BLOOD CELLS (BEAKER) (test 0 /100 WBC 0-0 shfo=655) (CELLAVISION MANUAL DIFF)2018-10-24 01:28:00 Test Item Value Reference Range Comments NEUTROPHILS - REL (CELLAVISION)(BEAKER) (test 92 % pfgm=1895) MONOCYTES - REL (CELLAVISION)(BEAKER) (test 4 % fkes=7757) BANDS - REL (CELLAVISION)(BEAKER) (test 4 % 0-10 gffv=1594) NEUTROPHILS - ABS (CELLAVISION)(BEAKER) (test 21.25 K/ul 1.78-5.38 mblq=4379) MONOCYTES - ABS (CELLAVISION)(BEAKER) (test 0.92 K/uL 0.30-0.82 fudd=9659) BANDS - ABS (CELLAVISION)(BEAKER) (test 0.92 K/uL 0.00-0.80 suxv=7480) TOTAL COUNTED (BEAKER) (test vdaf=4697) 100 WBC MORPHOLOGY (BEAKER) (test zzvp=743) Normal GIANT PLATELETS (BEAKER) (test gzew=499) Present ANISOCYTOSIS (BEAKER) (test lwqq=629) 1+ few MICROCYTES (BEAKER) (test emvx=998) 1+ few PLATELET CONCENTRATION (CELLAVISION)(BEAKER) Adequate (test mfzh=5006) Received comment: User comments: Slide comments:POCT-LACTIC ACID, [id number] 01:01:00 Test Item Value Reference Range Comments POC-LACTIC ACID, VENOUS 1.7 mmol/L 0.9-1.7 TESTED AT [facility] [address] [facility] (BEAKER) (test jvej=7275) [facility] [address] B-TYPE NATRIURETIC FACTOR (BNP)2018-10-24 00:39:00 Test Item Value Reference Range Comments B-TYPE NATRIURETIC PEPTIDE (BEAKER) (test 8224 pg/mL 0-100 ctgv=550) TROPONIN [id number] 00:27:00 Test Item Value Reference Range Comments TROPONIN I (BEAKER) (test gvny=688) 0.75 ng/mL 0.00-0.03 Troponin I (TnI) levels [...] acute neurological disease, and persistent tachyarrhythmia.BASIC METABOLIC [id number] 00:20:00 Test Item Value Reference Range Comments SODIUM (BEAKER) (test 137 meq/L 136-145 xuba=569) POTASSIUM (BEAKER) (test 3.3 meq/L 3.5-5.1 xizy=291) CHLORIDE (BEAKER) (test 106 meq/L 98-107 zuyl=187) CO2 (BEAKER) (test 23 meq/L 22-29 mlbg=087) BLOOD UREA NITROGEN 12 mg/dL 7-21 (BEAKER) (test ntyb=044) CREATININE (BEAKER) (test 2.47 mg/dL 0.57-1.25 fkka=428) GLUCOSE RANDOM (BEAKER) 108 mg/dL 70-105 (test nlwe=600) CALCIUM (BEAKER) (test 8.3 mg/dL 8.4-10.2 shje=946) EGFR (BEAKER) (test 26 mL/min/1.73 sq m ESTIMATED GFR IS NOT xubo=9212) ACCURATE CREATININE CLEARANCE IN PREDICTING GLOMERULAR FILTRATION RATE. ESTIMATED GFR IS NOT APPLICABLE FOR DIALYSIS PATIENTS. Specimen slightly [id number] 00:16:00 Test Item Value Reference Range Comments MAGNESIUM (BEAKER) (test dujc=395) 1.7 mg/dL 1.6-2.6 HEPATIC FUNCTION [id number] 00:16:00 Test Item Value Reference Range Comments TOTAL PROTEIN (BEAKER) (test bxcx=569) 6.2 gm/dL 6.0-8.3 ALBUMIN (BEAKER) (test reqf=0515) 3.3 g/dL 3.5-5.0 BILIRUBIN TOTAL (BEAKER) (test hpyy=589) 2.7 mg/dL 0.2-1.2 BILIRUBIN DIRECT (BEAKER) (test flek=769) 1.2 mg/dL 0.1-0.5 ALKALINE PHOSPHATASE (BEAKER) (test ypal=525) 77 U/L 40-150 AST (SGOT) (BEAKER) (test fsrl=378) 20 U/L 5-34 ALT (SGPT) (BEAKER) (test zwjd=294) 16 U/L 6-55 Specimen slightly [id number] 00:16:00 Test Item Value Reference Range Comments LIPASE (BEAKER) (test iubf=392) 12 U/L 8-78 Specimen slightly ictericPT/[id number] 00:14:00 Test Item Value Reference Range Comments PROTIME (BEAKER) (test pcwx=554) 16.8 seconds 11.9-14.2 INR (BEAKER) (test fkbp=403) 1.4 <=5.9 PARTIAL THROMBOPLASTIN TIME (BEAKER) (test 31.6 seconds 22.5-36.0 oaog=682) Effective 07/29/2018: PT Reference Range ChangeNew: 11.9-14.2 Previous: 11.7- 14.7RECOMMENDED COUMADIN/WARFARIN INR THERAPY RANGESSTANDARD DOSE: 2.0-3.0 Includes: PROPHYLAXIS for venous thrombosis, systemic embolization; TREATMENT for venous thrombosis and/or pulmonary embolus.HIGH RISK: Target INR is2.5-3.5 for patients wiht mechanical heart valves.BLOOD [id number] 20:00:00 Test Item Value Reference Range Comments CULTURE (BEAKER) (test yzvf=2406) No growth in 5 days BLOOD [id number] 20:00:00 Test Item Value Reference Range Comments CULTURE (BEAKER) (test faim=0939) No growth in 5 days T3, [id number] 14:07:00 Test Item Value Reference Range Comments T3 FREE (BEAKER) (test txxn=027) 3.50 pg/mL 1.71-3.71 POCT-GLUCOSE [id number] 12:45:00 Test Item Value Reference Range Comments POC-GLUCOSE METER (BEAKER) 98 mg/dL 70-110 TESTED AT [address] (test ybev=6127) [facility] [address] RAD, CHEST, 1 VIEW, NON [id number] 11:35:00Reason for exam:->CHFFINAL REPORT RAD, CHEST, 1 VIEW, NON DEPT INDICATION: CHF COMPARISON: Prior day's exam FINDINGS: Portable frontal view of the chest. IMPRESSION: Support Lines: Stable. Lungs and pleura: Bilateral lower lobe subsegmental atelectasis. Trace left effusion. No pneumothorax.Heart and mediastinum: Stable contours. Stable surgical changes.Additional findings: None. Signed: Nikia Banda Verified Date/Time: 10/23/2018 11:35: 02 Reading Location: [facility] Radiology Reading Room POCT-GLUCOSE [id number] 07:42:00 Test Item Value Reference Range Comments POC-GLUCOSE METER (BEAKER) 116 mg/dL 70-110 TESTED AT [address] (test ktin=3448) [place] [address] CBC W/PLT COUNT & AUTO [id number] 06:50:00 Test Item Value Reference Range Comments WHITE BLOOD CELL COUNT (BEAKER) (test vrsp=088) 10.6 K/ L 3.5-10.5 RED BLOOD CELL COUNT (BEAKER) (test nqsa=996) 3.28 M/ L 4.63-6.08 HEMOGLOBIN (BEAKER) (test meuu=189) 10.6 GM/DL 13.7-17.5 HEMATOCRIT (BEAKER) (test awyn=531) 33.4 % 40.1-51.0 MEAN CORPUSCULAR VOLUME (BEAKER) (test peny=073) 101.8 fL 79.0-92.2 MEAN CORPUSCULAR HEMOGLOBIN (BEAKER) (test 32.3 pg 25.7-32.2 citm=958) MEAN CORPUSCULAR HEMOGLOBIN CONC (BEAKER) (test 31.7 GM/DL 32.3-36.5 hqgv=959) RED CELL DISTRIBUTION WIDTH (BEAKER) (test 15.5 % 11.6-14.4 cjxo=596) PLATELET COUNT (BEAKER) (test hvrt=086) 207 K/CU MM 150-450 MEAN PLATELET VOLUME (BEAKER) (test dyrd=236) 11.0 fL 9.4-12.4 NUCLEATED RED BLOOD CELLS (BEAKER) (test 0 /100 WBC 0-0 dlbi=890) NEUTROPHILS RELATIVE PERCENT (BEAKER) (test 79 % uwye=396) LYMPHOCYTES RELATIVE PERCENT (BEAKER) (test 6 % mwoq=834) MONOCYTES RELATIVE PERCENT (BEAKER) (test 10 % bagt=038) EOSINOPHILS RELATIVE PERCENT (BEAKER) (test 4 % zvma=885) BASOPHILS RELATIVE PERCENT (BEAKER) (test 1 % hlwz=237) NEUTROPHILS ABSOLUTE COUNT (BEAKER) (test 8.33 K/ L 1.78-5.38 iqop=159) LYMPHOCYTES ABSOLUTE COUNT (BEAKER) (test 0.67 K/ L 1.32-3.57 axrz=367) MONOCYTES ABSOLUTE COUNT (BEAKER) (test 1.10 K/ L 0.30-0.82 npzo=838) EOSINOPHILS ABSOLUTE COUNT (BEAKER) (test 0.39 K/ L 0.04-0.54 crtr=762) BASOPHILS ABSOLUTE COUNT (BEAKER) (test 0.06 K/ L 0.01-0.08 lyrk=962) IMMATURE GRANULOCYTES-RELATIVE PERCENT (BEAKER) 1 % 0-1 (test llnh=1207) POCT-GLUCOSE [id number] 21:47:00 Test Item Value Reference Range Comments POC-GLUCOSE METER (BEAKER) 200 mg/dL 70-110 TESTED AT [address] (test eiog=2184) [facility] [address] [id number] 21:38:00 Test Item Value Reference Range Comments POTASSIUM (BEAKER) (test wqyd=108) 3.6 meq/L 3.5-5.1 [id number] 21:38:00 Test Item Value Reference Range Comments MAGNESIUM (BEAKER) (test pvik=702) 2.3 mg/dL 1.6-2.6 [id number] 21:38:00 Test Item Value Reference Range Comments PHOSPHORUS (BEAKER) (test uaax=502) 2.0 mg/dL 2.3-4.7 [id number] 21:38:00 Test Item Value Reference Range Comments SODIUM (BEAKER) (test wfgj=693) 137 meq/L 136-145 CALCIUM, [id number] 21:11:00 Test Item Value Reference Range Comments CALCIUM IONIZED (BEAKER) (test equa=115) 1.20 mmol/L 1.12-1.27 PH, BLOOD (BEAKER) (test hrsa=3744) 7.45 POCT-GLUCOSE [id number] 17:07:00 Test Item Value Reference Range Comments POC-GLUCOSE METER (BEAKER) 100 mg/dL 70-110 TESTED AT [address] (test egzj=3468) [facility] [address] HEPATITIS B SURFACE [id number] 15:15:00 Test Item Value Reference Range Comments HEPATITIS B SURFACE ANTIGEN (2) (BEAKER) (test Nonreactive Nonreactive qmjn=5465) [id number] 14:50:00 Test Item Value Reference Range Comments POTASSIUM (BEAKER) (test tdla=609) 3.8 meq/L 3.5-5.1 [id number] 12:43:00 Test Item Value Reference Range Comments POTASSIUM (BEAKER) (test dtyh=188) 3.8 meq/L 3.5-5.1 POCT-GLUCOSE [id number] 12:17:00 Test Item Value Reference Range Comments POC-GLUCOSE METER (BEAKER) 154 mg/dL 70-110 TESTED AT [address] (test zahn=8973) [facility] [address] [id number] 08:29:00 Test Item Value Reference Range Comments PHOSPHORUS (BEAKER) (test dvuh=401) 3.6 mg/dL 2.3-4.7 [id number] 08:29:00 Test Item Value Reference Range Comments MAGNESIUM (BEAKER) (test favy=372) 2.4 mg/dL 1.6-2.6 CALCIUM, [id number] 08:16:00 Test Item Value Reference Range Comments CALCIUM IONIZED (BEAKER) (test vqsh=192) 1.23 mmol/L 1.12-1.27 PH, BLOOD (BEAKER) (test xlob=1033) 7.40 POCT-GLUCOSE [id number] 07:48:00 Test Item Value Reference Range Comments POC-GLUCOSE METER (BEAKER) 105 mg/dL 70-110 TESTED AT [facility] [address] (test uefo=7714) [facility] [address] TSH/FREE T4 IF [id number] 06:59:00 Test Item Value Reference Range Comments THYROID STIMULATING HORMONE (BEAKER) (test 5.42 uIU/mL 0.35-4.94 tyle=295) T4, [id number] 06:14:00 Test Item Value Reference Range Comments FREE T4 (BEAKER) (test wvaf=810) 1.34 ng/dL 0.70-1.48 BASIC METABOLIC [id number] 05:54:00 Test Item Value Reference Range Comments SODIUM (BEAKER) (test 135 meq/L 136-145 bsjn=395) POTASSIUM (BEAKER) (test 3.8 meq/L 3.5-5.1 ogef=160) CHLORIDE (BEAKER) (test 100 meq/L 98-107 zwja=714) CO2 (BEAKER) (test 26 meq/L 22-29 hggm=748) BLOOD UREA NITROGEN 24 mg/dL 7-21 (BEAKER) (test iajo=418) CREATININE (BEAKER) (test 3.08 mg/dL 0.57-1.25 klps=272) GLUCOSE RANDOM (BEAKER) 107 mg/dL 70-105 (test ypgs=216) CALCIUM (BEAKER) (test 9.5 mg/dL 8.4-10.2 jsgj=761) EGFR (BEAKER) (test 20 mL/min/1.73 sq m ESTIMATED GFR IS NOT wocc=2458) ACCURATE CREATININE CLEARANCE IN PREDICTING GLOMERULAR FILTRATION RATE. ESTIMATED GFR IS NOT APPLICABLE FOR DIALYSIS PATIENTS. [id number] 05:36:00 Test Item Value Reference Range Comments PHOSPHORUS (BEAKER) (test dfrt=935) 3.9 mg/dL 2.3-4.7 [id number] 05:36:00 Test Item Value Reference Range Comments MAGNESIUM (BEAKER) (test ntvm=105) 2.3 mg/dL 1.6-2.6 CBC W/PLT COUNT & AUTO [id number] 04:13:00 Test Item Value Reference Range Comments WHITE BLOOD CELL COUNT (BEAKER) (test sgpi=855) 7.6 K/ L 3.5-10.5 RED BLOOD CELL COUNT (BEAKER) (test bvrc=947) 2.66 M/ L 4.63-6.08 HEMOGLOBIN (BEAKER) (test xqhf=388) 8.7 GM/DL 13.7-17.5 HEMATOCRIT (BEAKER) (test gfnb=110) 27.2 % 40.1-51.0 MEAN CORPUSCULAR VOLUME (BEAKER) (test mziu=746) 102.3 fL 79.0-92.2 MEAN CORPUSCULAR HEMOGLOBIN (BEAKER) (test 32.7 pg 25.7-32.2 zxbv=771) MEAN CORPUSCULAR HEMOGLOBIN CONC (BEAKER) (test 32.0 GM/DL 32.3-36.5 gwmj=099) RED CELL DISTRIBUTION WIDTH (BEAKER) (test 15.2 % 11.6-14.4 idxf=956) PLATELET COUNT (BEAKER) (test bryg=650) 175 K/CU MM 150-450 MEAN PLATELET VOLUME (BEAKER) (test eagx=724) 10.5 fL 9.4-12.4 NUCLEATED RED BLOOD CELLS (BEAKER) (test 0 /100 WBC 0-0 ojys=027) NEUTROPHILS RELATIVE PERCENT (BEAKER) (test 75 % dsty=709) LYMPHOCYTES RELATIVE PERCENT (BEAKER) (test 8 % kptq=120) MONOCYTES RELATIVE PERCENT (BEAKER) (test 14 % nrmp=506) EOSINOPHILS RELATIVE PERCENT (BEAKER) (test 3 % wdvw=159) BASOPHILS RELATIVE PERCENT (BEAKER) (test 1 % npya=526) NEUTROPHILS ABSOLUTE COUNT (BEAKER) (test 5.69 K/ L 1.78-5.38 glzi=318) LYMPHOCYTES ABSOLUTE COUNT (BEAKER) (test 0.60 K/ L 1.32-3.57 gxew=592) MONOCYTES ABSOLUTE COUNT (BEAKER) (test 1.06 K/ L 0.30-0.82 vtki=501) EOSINOPHILS ABSOLUTE COUNT (BEAKER) (test 0.21 K/ L 0.04-0.54 mtsz=864) BASOPHILS ABSOLUTE COUNT (BEAKER) (test 0.04 K/ L 0.01-0.08 otsc=512) IMMATURE GRANULOCYTES-RELATIVE PERCENT (BEAKER) 0 % 0-1 (test sfdz=6134) [id number] 00:21:00 Test Item Value Reference Range Comments POTASSIUM (BEAKER) (test 3.9 meq/L 3.5-5.1 Specimen slightly hemolyzed npuv=579) POCT-GLUCOSE [id number] 22:00:00 Test Item Value Reference Range Comments POC-GLUCOSE METER (BEAKER) 163 mg/dL 70-110 TESTED AT [address] (test ruhm=8540) [place] [address] [id number] 21:02:00 Test Item Value Reference Range Comments MAGNESIUM (BEAKER) (test 2.3 mg/dL 1.6-2.6 Specimen slightly hemolyzed jftv=005) [id number] 21:02:00 Test Item Value Reference Range Comments PHOSPHORUS (BEAKER) (test 3.1 mg/dL 2.3-4.7 Specimen slightly hemolyzed gdtd=170) [id number] 21:02:00 Test Item Value Reference Range Comments POTASSIUM (BEAKER) (test 3.9 meq/L 3.5-5.1 Specimen slightly hemolyzed xmwu=043) [id number] 21:02:00 Test Item Value Reference Range Comments SODIUM (BEAKER) (test iwid=391) 134 meq/L 136-145 CALCIUM, [id number] 20:24:00 Test Item Value Reference Range Comments CALCIUM IONIZED (BEAKER) (test dacd=214) 1.17 mmol/L 1.12-1.27 PH, BLOOD (BEAKER) (test oeel=9218) 7.40 POCT-GLUCOSE [id number] 18:16:00 Test Item Value Reference Range Comments POC-GLUCOSE METER (BEAKER) 122 mg/dL 70-110 TESTED AT [address] (test iopr=6353) [place] [id number] 17:57:00 Test Item Value Reference Range Comments POTASSIUM (BEAKER) (test 3.9 meq/L 3.5-5.1 Specimen moderately hemolyzed mkel=415) POCT-GLUCOSE [id number] 12:30:00 Test Item Value Reference Range Comments POC-GLUCOSE METER (BEAKER) 104 mg/dL 70-110 TESTED AT [address] (test vuot=0855) [place] [address] [id number] 11:58:00 Test Item Value Reference Range Comments POTASSIUM (BEAKER) (test znbq=566) 3.3 meq/L 3.5-5.1 POCT-GLUCOSE [id number] 07:50:00 Test Item Value Reference Range Comments POC-GLUCOSE METER (BEAKER) 87 mg/dL 70-110 TESTED AT [facility] [address] [facility] (test zctv=8063) [place] [address] RAD, CHEST, 1 VIEW, NON [id number] 07:31:00Reason for exam:->F/U PNAShould this be performed [...] Verified Date/Time: 10/21/2018 07:31: 50 Reading Location: [address] Neuro Reading Room [id number] 04:53:00 Test Item Value Reference Range Comments PHOSPHORUS (BEAKER) (test xvzz=407) 2.3 mg/dL 2.3-4.7 [id number] 04:53:00 Test Item Value Reference Range Comments MAGNESIUM (BEAKER) (test zxpv=813) 2.1 mg/dL 1.6-2.6 BASIC METABOLIC [id number] 04:53:00 Test Item Value Reference Range Comments SODIUM (BEAKER) (test 135 meq/L 136-145 deqw=560) POTASSIUM (BEAKER) (test 3.7 meq/L 3.5-5.1 ahnf=371) CHLORIDE (BEAKER) (test 103 meq/L 98-107 akuj=437) CO2 (BEAKER) (test 27 meq/L 22-29 pnmh=234) BLOOD UREA NITROGEN 17 mg/dL 7-21 (BEAKER) (test paiy=182) CREATININE (BEAKER) (test 1.77 mg/dL 0.57-1.25 lhpj=891) GLUCOSE RANDOM (BEAKER) 75 mg/dL 70-105 (test aqij=856) CALCIUM (BEAKER) (test 9.5 mg/dL 8.4-10.2 zjhu=010) EGFR (BEAKER) (test 38 mL/min/1.73 sq m ESTIMATED GFR IS NOT nxlh=2830) ACCURATE CREATININE CLEARANCE IN PREDICTING GLOMERULAR FILTRATION RATE. ESTIMATED GFR IS NOT APPLICABLE FOR DIALYSIS PATIENTS. HEPATIC FUNCTION [id number] 04:53:00 Test Item Value Reference Range Comments TOTAL PROTEIN (BEAKER) (test zfzz=991) 6.3 gm/dL 6.0-8.3 ALBUMIN (BEAKER) (test auxm=7543) 3.3 g/dL 3.5-5.0 BILIRUBIN TOTAL (BEAKER) (test asvj=808) 0.9 mg/dL 0.2-1.2 BILIRUBIN DIRECT (BEAKER) (test smrp=283) 0.5 mg/dL 0.1-0.5 ALKALINE PHOSPHATASE (BEAKER) (test dqet=459) 85 U/L 40-150 AST (SGOT) (BEAKER) (test etxb=157) 46 U/L 5-34 ALT (SGPT) (BEAKER) (test gqwe=626) 39 U/L 6-55 CALCIUM, [id number] 04:29:00 Test Item Value Reference Range Comments CALCIUM IONIZED (BEAKER) (test besj=300) 1.20 mmol/L 1.12-1.27 PH, BLOOD (BEAKER) (test xidu=1205) 7.41 CBC (HEMOGRAM ONLY)2018-10-21 04:28:00 Test Item Value Reference Range Comments WHITE BLOOD CELL COUNT (BEAKER) (test gcxz=780) 7.7 K/ L 3.5-10.5 RED BLOOD CELL COUNT (BEAKER) (test ugbo=729) 3.11 M/ L 4.63-6.08 HEMOGLOBIN (BEAKER) (test ciqj=370) 10.0 GM/DL 13.7-17.5 HEMATOCRIT (BEAKER) (test ubxg=056) 31.8 % 40.1-51.0 MEAN CORPUSCULAR VOLUME (BEAKER) (test khlk=328) 102.3 fL 79.0-92.2 MEAN CORPUSCULAR HEMOGLOBIN (BEAKER) (test 32.2 pg 25.7-32.2 feaw=623) MEAN CORPUSCULAR HEMOGLOBIN CONC (BEAKER) (test 31.4 GM/DL 32.3-36.5 riht=984) RED CELL DISTRIBUTION WIDTH (BEAKER) (test 14.9 % 11.6-14.4 fsxq=751) PLATELET COUNT (BEAKER) (test yacy=861) 164 K/CU MM 150-450 MEAN PLATELET VOLUME (BEAKER) (test crpd=731) 11.0 fL 9.4-12.4 NUCLEATED RED BLOOD CELLS (BEAKER) (test 0 /100 WBC 0-0 sril=947) [id number] 00:36:00 Test Item Value Reference Range Comments POTASSIUM (BEAKER) (test 3.8 meq/L 3.5-5.1 Specimen slightly hemolyzed tajz=044) [id number] 21:26:00 Test Item Value Reference Range Comments POTASSIUM (BEAKER) (test zfhg=296) 3.7 meq/L 3.5-5.1 POCT-GLUCOSE [id number] 21:17:00 Test Item Value Reference Range Comments POC-GLUCOSE METER (BEAKER) 127 mg/dL 70-110 TESTED AT [address] (test uxoi=4005) [facility] [address] CALCIUM, [id number] 21:02:00 Test Item Value Reference Range Comments CALCIUM IONIZED (BEAKER) (test fhtq=393) 1.19 mmol/L 1.12-1.27 PH, BLOOD (BEAKER) (test nali=3430) 7.43 [id number] 17:52:00 Test Item Value Reference Range Comments MAGNESIUM (BEAKER) (test 2.2 mg/dL 1.6-2.6 Specimen slightly hemolyzed ibjd=449) [id number] 17:52:00 Test Item Value Reference Range Comments PHOSPHORUS (BEAKER) (test 3.6 mg/dL 2.3-4.7 Specimen slightly hemolyzed usct=314) [id number] 17:52:00 Test Item Value Reference Range Comments POTASSIUM (BEAKER) (test 4.0 meq/L 3.5-5.1 Specimen slightly hemolyzed zlnc=469) [id number] 17:52:00 Test Item Value Reference Range Comments SODIUM (BEAKER) (test ychq=277) 135 meq/L 136-145 POCT-GLUCOSE [id number] 17:20:00 Test Item Value Reference Range Comments POC-GLUCOSE METER (BEAKER) 82 mg/dL 70-110 TESTED AT [address] (test kzka=5504) [place] [id number] T3, [id number] 14:22:00 Test Item Value Reference Range Comments T3 FREE (BEAKER) (test kjmw=183) 1.50 pg/mL 1.71-3.71 [id number] 13:00:00 Test Item Value Reference Range Comments POTASSIUM (BEAKER) (test 3.9 meq/L 3.5-5.1 Specimen slightly hemolyzed qegt=497) POCT-GLUCOSE [id number] 12:31:00 Test Item Value Reference Range Comments POC-GLUCOSE METER (BEAKER) 144 mg/dL 70-110 TESTED AT [address] (test pynv=5989) [facility] [address] [id number] 08:30:00 Test Item Value Reference Range Comments POTASSIUM (BEAKER) (test hltn=376) 3.9 meq/L 3.5-5.1 [id number] 08:30:00 Test Item Value Reference Range Comments MAGNESIUM (BEAKER) (test xrht=882) 2.1 mg/dL 1.6-2.6 [id number] 08:30:00 Test Item Value Reference Range Comments PHOSPHORUS (BEAKER) (test vflq=834) 2.4 mg/dL 2.3-4.7 [id number] 08:30:00 Test Item Value Reference Range Comments SODIUM (BEAKER) (test hiww=896) 134 meq/L 136-145 CALCIUM, [id number] 08:06:00 Test Item Value Reference Range Comments CALCIUM IONIZED (BEAKER) (test orly=119) 1.25 mmol/L 1.12-1.27 PH, BLOOD (BEAKER) (test siow=3612) 7.39 POCT-GLUCOSE [id number] 07:07:00 Test Item Value Reference Range Comments POC-GLUCOSE METER (BEAKER) 129 mg/dL 70-110 TESTED AT [facility] [address] [facility] (test cvit=6566) [facility] [address] BASIC METABOLIC [id number] 04:36:00 Test Item Value Reference Range Comments SODIUM (BEAKER) (test 135 meq/L 136-145 lzzl=422) POTASSIUM (BEAKER) (test 4.1 meq/L 3.5-5.1 wchr=253) CHLORIDE (BEAKER) (test 101 meq/L 98-107 nttg=639) CO2 (BEAKER) (test 27 meq/L 22-29 bhrm=496) BLOOD UREA NITROGEN 27 mg/dL 7-21 (BEAKER) (test okus=907) CREATININE (BEAKER) (test 2.87 mg/dL 0.57-1.25 qfco=658) GLUCOSE RANDOM (BEAKER) 99 mg/dL 70-105 (test shdz=455) CALCIUM (BEAKER) (test 9.5 mg/dL 8.4-10.2 apng=484) EGFR (BEAKER) (test 22 mL/min/1.73 sq m ESTIMATED GFR IS NOT prqe=1993) ACCURATE CREATININE CLEARANCE IN PREDICTING GLOMERULAR FILTRATION RATE. ESTIMATED GFR IS NOT APPLICABLE FOR DIALYSIS PATIENTS. [id number] 04:33:00 Test Item Value Reference Range Comments PHOSPHORUS (BEAKER) (test biov=348) 3.3 mg/dL 2.3-4.7 HEPATIC FUNCTION [id number] 04:33:00 Test Item Value Reference Range Comments TOTAL PROTEIN (BEAKER) (test cugv=706) 6.5 gm/dL 6.0-8.3 ALBUMIN (BEAKER) (test pihm=7362) 3.3 g/dL 3.5-5.0 BILIRUBIN TOTAL (BEAKER) (test rnub=282) 0.6 mg/dL 0.2-1.2 BILIRUBIN DIRECT (BEAKER) (test ksjz=531) 0.4 mg/dL 0.1-0.5 ALKALINE PHOSPHATASE (BEAKER) (test mfus=281) 73 U/L 40-150 AST (SGOT) (BEAKER) (test mbdz=374) 86 U/L 5-34 ALT (SGPT) (BEAKER) (test vyet=641) 62 U/L 6-55 CBC (HEMOGRAM ONLY)2018-10-20 04:07:00 Test Item Value Reference Range Comments WHITE BLOOD CELL COUNT (BEAKER) (test mlqb=397) 11.5 K/ L 3.5-10.5 RED BLOOD CELL COUNT (BEAKER) (test eqkp=271) 3.31 M/ L 4.63-6.08 HEMOGLOBIN (BEAKER) (test qxmp=974) 10.6 GM/DL 13.7-17.5 HEMATOCRIT (BEAKER) (test kyyx=437) 33.3 % 40.1-51.0 MEAN CORPUSCULAR VOLUME (BEAKER) (test ymfp=349) 100.6 fL 79.0-92.2 MEAN CORPUSCULAR HEMOGLOBIN (BEAKER) (test 32.0 pg 25.7-32.2 ktkz=500) MEAN CORPUSCULAR HEMOGLOBIN CONC (BEAKER) (test 31.8 GM/DL 32.3-36.5 sayq=072) RED CELL DISTRIBUTION WIDTH (BEAKER) (test 15.0 % 11.6-14.4 ehzf=650) PLATELET COUNT (BEAKER) (test nefy=943) 177 K/CU MM 150-450 MEAN PLATELET VOLUME (BEAKER) (test basx=458) 11.2 fL 9.4-12.4 NUCLEATED RED BLOOD CELLS (BEAKER) (test 0 /100 WBC 0-0 cndi=664) [id number] 00:24:00 Test Item Value Reference Range Comments POTASSIUM (BEAKER) (test 4.4 meq/L 3.5-5.1 Specimen slightly hemolyzed vgup=540) POCT-GLUCOSE [id number] 21:42:00 Test Item Value Reference Range Comments POC-GLUCOSE METER (BEAKER) 148 mg/dL 70-110 TESTED AT [facility] [address] [facility] (test oqyf=0459) [facility] [address] [id number] 20:25:00 Test Item Value Reference Range Comments POTASSIUM (BEAKER) (test wfmb=103) 4.6 meq/L 3.5-5.1 CALCIUM, [id number] 20:14:00 Test Item Value Reference Range Comments CALCIUM IONIZED (BEAKER) (test juxi=380) 1.26 mmol/L 1.12-1.27 PH, BLOOD (BEAKER) (test cqab=1850) 7.37 POCT-GLUCOSE [id number] 17:34:00 Test Item Value Reference Range Comments POC-GLUCOSE METER (BEAKER) 125 mg/dL 70-110 TESTED AT [facility] [address] (test odgd=1088) [facility] [address] [id number] 17:11:00 Test Item Value Reference Range Comments POTASSIUM (BEAKER) (test uzog=398) 4.3 meq/L 3.5-5.1 [id number] 17:11:00 Test Item Value Reference Range Comments MAGNESIUM (BEAKER) (test evcj=568) 2.1 mg/dL 1.6-2.6 [id number] 17:11:00 Test Item Value Reference Range Comments PHOSPHORUS (BEAKER) (test supm=720) 3.1 mg/dL 2.3-4.7 [id number] 17:11:00 Test Item Value Reference Range Comments SODIUM (BEAKER) (test tcww=443) 134 meq/L 136-145 RAD, CHEST, 1 VIEW, NON [id number] 17:04:00Reason for exam:-> hypoxiaShould this be performed [...] [place] VerifiedDate/Time: 10/19/2018 17:04:29 Reading Location: [address] Consult Reading Room TROPONIN [id number] 13:49:00 Test Item Value Reference Range Comments TROPONIN I (BEAKER) (test qgkm=769) 2.13 ng/mL 0.00-0.03 Troponin I (TnI) levels [...] failure, acidosis, acute neurological disease, and persistent tachyarrhythmia.[id number] 13:35:00 Test Item Value Reference Range Comments POTASSIUM (BEAKER) (test 3.6 meq/L 3.5-5.1 Specimen slightly hemolyzed whmw=465) PH, [id number] 10:16:00 Test Item Value Reference Range Comments PH VENOUS (BEAKER) (test rwli=122) 7.39 7.32-7.42 POCT-GLUCOSE [id number] 10:03:00 Test Item Value Reference Range Comments POC-GLUCOSE METER (BEAKER) 134 mg/dL 70-110 TESTED AT [facility] [address] [facility] (test fsih=7036) [facility] [address] T4, [id number] 08:51:00 Test Item Value Reference Range Comments FREE T4 (BEAKER) (test reiw=785) 0.98 ng/dL 0.70-1.48 BLOOD GAS, [id number] 06:17:00 Test Item Value Reference Range Comments PH ARTERIAL (BEAKER) (test dzkb=444) 7.39 7.35-7.45 PCO2 ARTERIAL (BEAKER) (test zgnn=605) 40 mm Hg 35-45 PO2 ARTERIAL (BEAKER) (test xbkn=249) 54 mm Hg 80-90 O2 SATURATION ARTERIAL (BEAKER) (test ljez=791) 89.0 % 96.0-97.0 HCO3 ARTERIAL (BEAKER) (test ilvf=889) 24 mmol/L 21-29 BASE EXCESS ARTERIAL (BEAKER) (test vnby=175) -1.4 mmol/L -2.0-3.0 PATIENT TEMPERATURE (BEAKER) (test vyfh=4275) 36.4 FIO2 (BEAKER) (test mjqk=0795) 40 BASIC METABOLIC [id number] 05:10:00 Test Item Value Reference Range Comments SODIUM (BEAKER) (test 135 meq/L 136-145 faay=309) POTASSIUM (BEAKER) (test 5.6 meq/L 3.5-5.1 Specimen slightly kmrh=564) hemolyzed CHLORIDE (BEAKER) (test 98 meq/L 98-107 jldg=836) CO2 (BEAKER) (test 24 meq/L 22-29 qdga=340) BLOOD UREA NITROGEN 56 mg/dL 7-21 (BEAKER) (test xeuq=390) CREATININE (BEAKER) (test 6.22 mg/dL 0.57-1.25 Specimen slightly jvrn=383) hemolyzed GLUCOSE RANDOM (BEAKER) 170 mg/dL 70-105 (test yfsj=191) CALCIUM (BEAKER) (test 10.1 mg/dL 8.4-10.2 ytdl=937) EGFR (BEAKER) (test 9 mL/min/1.73 sq m ESTIMATED GFR IS NOT yggo=8982) ACCURATE CREATININE CLEARANCE IN PREDICTING GLOMERULAR FILTRATION RATE. ESTIMATED GFR IS NOT APPLICABLE FOR DIALYSIS PATIENTS. [id number] 05:07:00 Test Item Value Reference Range Comments MAGNESIUM (BEAKER) (test 2.5 mg/dL 1.6-2.6 Specimen slightly hemolyzed macm=795) [id number] 05:07:00 Test Item Value Reference Range Comments PHOSPHORUS (BEAKER) (test 6.4 mg/dL 2.3-4.7 Specimen slightly hemolyzed rrcy=786) HEPATIC FUNCTION [id number] 05:07:00 Test Item Value Reference Range Comments TOTAL PROTEIN (BEAKER) (test 7.2 gm/dL 6.0-8.3 Specimen slightly hemolyzed jngu=044) ALBUMIN (BEAKER) (test 3.8 g/dL 3.5-5.0 Specimen slightly hemolyzed shba=7097) BILIRUBIN TOTAL (BEAKER) (test 0.6 mg/dL 0.2-1.2 Specimen slightly hemolyzed hdhs=165) BILIRUBIN DIRECT (BEAKER) (test 0.4 mg/dL 0.1-0.5 Specimen slightly hemolyzed mqjw=291) ALKALINE PHOSPHATASE (BEAKER) 78 U/L 40-150 (test rnhc=208) AST (SGOT) (BEAKER) (test 80 U/L 5-34 Specimen slightly hemolyzed bhhw=943) ALT (SGPT) (BEAKER) (test 37 U/L 6-55 Specimen slightly hemolyzed ioiq=629) PROTHROMBIN [id number] 04:50:00 Test Item Value Reference Range Comments PROTIME (BEAKER) (test cvxe=226) 34.3 seconds 11.9-14.2 INR (BEAKER) (test imxu=614) 3.6 <=5.9 Effective 07/29/2018: PT Reference Range ChangeNew: 11.9-14.2 Previous: 11.7- 14.7RECOMMENDED COUMADIN/WARFARIN INR THERAPY RANGESSTANDARD DOSE: 2.0-3.0 Includes: PROPHYLAXIS for venous thrombosis, systemic embolization; TREATMENT for venous thrombosis and/or pulmonary embolus.HIGH RISK: Target INR is2.5-3.5 for patients wiht mechanical heart valves.CBC (HEMOGRAM ONLY)2018-10-19 04:31:00 Test Item Value Reference Range Comments WHITE BLOOD CELL COUNT (BEAKER) (test ifaj=265) 13.1 K/ L 3.5-10.5 RED BLOOD CELL COUNT (BEAKER) (test ouuv=309) 3.58 M/ L 4.63-6.08 HEMOGLOBIN (BEAKER) (test fzuu=009) 11.6 GM/DL 13.7-17.5 HEMATOCRIT (BEAKER) (test ubrb=397) 36.2 % 40.1-51.0 MEAN CORPUSCULAR VOLUME (BEAKER) (test qmuf=289) 101.1 fL 79.0-92.2 MEAN CORPUSCULAR HEMOGLOBIN (BEAKER) (test 32.4 pg 25.7-32.2 cuqd=302) MEAN CORPUSCULAR HEMOGLOBIN CONC (BEAKER) (test 32.0 GM/DL 32.3-36.5 jztg=060) RED CELL DISTRIBUTION WIDTH (BEAKER) (test 15.1 % 11.6-14.4 ddpm=688) PLATELET COUNT (BEAKER) (test inkk=253) 204 K/CU MM 150-450 MEAN PLATELET VOLUME (BEAKER) (test kyds=378) 11.1 fL 9.4-12.4 NUCLEATED RED BLOOD CELLS (BEAKER) (test 0 /100 WBC 0-0 ralt=105) TROPONIN [id number] 01:12:00 Test Item Value Reference Range Comments TROPONIN I (BEAKER) (test tigu=541) 1.38 ng/mL 0.00-0.03 Troponin I (TnI) levels [...] failure, acidosis, acute neurological disease, and persistent tachyarrhythmia.[id number] 01:02:00 Test Item Value Reference Range Comments POTASSIUM (BEAKER) (test gltf=548) 6.3 meq/L 3.5-5.1 CALCIUM, [id number] 00:09:00 Test Item Value Reference Range Comments CALCIUM IONIZED (BEAKER) (test ehxi=352) 1.22 mmol/L 1.12-1.27 PH, BLOOD (BEAKER) (test adge=2762) 7.31 POCT-GLUCOSE [id number] 22:16:00 Test Item Value Reference Range Comments POC-GLUCOSE METER (BEAKER) 171 mg/dL 70-110 TESTED AT [address] (test olwf=5939) [facility] [address] TROPONIN [id number] 20:58:00 Test Item Value Reference Range Comments TROPONIN I (BEAKER) (test lohe=858) 0.42 ng/mL 0.00-0.03 Troponin I (TnI) levels [...] failure, acidosis, acute neurological disease, and persistent tachyarrhythmia.[id number] 20:45:00 Test Item Value Reference Range Comments POTASSIUM (BEAKER) (test 6.6 meq/L 3.5-5.1 Specimen slightly hemolyzed ihur=460) [id number] 20:43:00 Test Item Value Reference Range Comments MAGNESIUM (BEAKER) (test 2.8 mg/dL 1.6-2.6 Specimen slightly hemolyzed rzhn=468) [id number] 20:43:00 Test Item Value Reference Range Comments PHOSPHORUS (BEAKER) (test 8.5 mg/dL 2.3-4.7 Specimen slightly hemolyzed sgnl=572) [id number] 20:43:00 Test Item Value Reference Range Comments SODIUM (BEAKER) (test kola=548) 133 meq/L 136-145 HEPATIC FUNCTION [id number] 20:43:00 Test Item Value Reference Range Comments TOTAL PROTEIN (BEAKER) (test 7.6 gm/dL 6.0-8.3 Specimen slightly hemolyzed eihr=209) ALBUMIN (BEAKER) (test 3.8 g/dL 3.5-5.0 Specimen slightly hemolyzed dzxy=2959) BILIRUBIN TOTAL (BEAKER) (test 0.5 mg/dL 0.2-1.2 Specimen slightly hemolyzed bxvw=164) BILIRUBIN DIRECT (BEAKER) (test 0.3 mg/dL 0.1-0.5 Specimen slightly hemolyzed nebq=116) ALKALINE PHOSPHATASE (BEAKER) 80 U/L 40-150 (test culc=063) AST (SGOT) (BEAKER) (test 82 U/L 5-34 Specimen slightly hemolyzed fqhq=605) ALT (SGPT) (BEAKER) (test 25 U/L 6-55 Specimen slightly hemolyzed hqxr=040) RAD, CHEST, 1 VIEW, NON [id number] 20:41:00Reason for exam:->IJ central lineShould this be [...] [place] Verified Date/Time: 20:41:05 Reading Location: [address] Reading Room PH, [id number] 20:21:00 Test Item Value Reference Range Comments PH ARTERIAL (BEAKER) (test cniq=267) 7.29 7.35-7.45 [id number] 18:06:00 Test Item Value Reference Range Comments THYROID STIMULATING HORMONE (BEAKER) (test 4.98 uIU/mL 0.35-4.94 aekg=564) B-TYPE NATRIURETIC FACTOR (BNP)2018-10-18 17:43:00 Test Item Value Reference Range Comments B-TYPE NATRIURETIC PEPTIDE (BEAKER) (test 8414 pg/mL 0-100 gjrf=945) RAD, CHEST, 1 VIEW, NON [id number] 17:14:00Reason for exam:->SOBShould this be performed at [...] MDReport Verified Date/Time: 10/18/2018 17:14:55 Reading Location: [address] Transitional Reading Room BASIC METABOLIC [id number] 15:27:00 Test Item Value Reference Range Comments SODIUM (BEAKER) (test 135 meq/L 136-145 sssv=711) POTASSIUM (BEAKER) (test 6.0 meq/L 3.5-5.1 Specimen slightly sxyg=093) hemolyzed CHLORIDE (BEAKER) (test 97 meq/L 98-107 vozb=362) CO2 (BEAKER) (test 16 meq/L 22-29 lhvt=642) BLOOD UREA NITROGEN 70 mg/dL 7-21 (BEAKER) (test ochf=137) CREATININE (BEAKER) (test 8.88 mg/dL 0.57-1.25 Specimen slightly auhk=195) hemolyzed GLUCOSE RANDOM (BEAKER) 163 mg/dL 70-105 (test kwez=750) CALCIUM (BEAKER) (test 10.5 mg/dL 8.4-10.2 pabx=653) EGFR (BEAKER) (test 6 mL/min/1.73 sq m ESTIMATED GFR IS NOT otra=2903) ACCURATE CREATININE CLEARANCE IN PREDICTING GLOMERULAR FILTRATION RATE. ESTIMATED GFR IS NOT APPLICABLE FOR DIALYSIS PATIENTS. CBC W/PLT COUNT & AUTO [id number] 15:15:00 Test Item Value Reference Range Comments WHITE BLOOD CELL COUNT (BEAKER) (test gusz=210) 15.4 K/ L 3.5-10.5 RED BLOOD CELL COUNT (BEAKER) (test iaoh=670) 3.75 M/ L 4.63-6.08 HEMOGLOBIN (BEAKER) (test jgpv=316) 12.3 GM/DL 13.7-17.5 HEMATOCRIT (BEAKER) (test qtul=987) 38.9 % 40.1-51.0 MEAN CORPUSCULAR VOLUME (BEAKER) (test ycxz=352) 103.7 fL 79.0-92.2 MEAN CORPUSCULAR HEMOGLOBIN (BEAKER) (test 32.8 pg 25.7-32.2 cnqs=829) MEAN CORPUSCULAR HEMOGLOBIN CONC (BEAKER) (test 31.6 GM/DL 32.3-36.5 toaa=059) RED CELL DISTRIBUTION WIDTH (BEAKER) (test 15.2 % 11.6-14.4 llrs=341) PLATELET COUNT (BEAKER) (test ueyx=803) 224 K/CU MM 150-450 MEAN PLATELET VOLUME (BEAKER) (test wiow=864) 11.8 fL 9.4-12.4 NUCLEATED RED BLOOD CELLS (BEAKER) (test 0 /100 WBC 0-0 mrac=992) (CELLAVISION MANUAL DIFF)2018-10-18 15:15:00 Test Item Value Reference Range Comments NEUTROPHILS - REL (CELLAVISION)(BEAKER) (test 87 % qpze=2986) LYMPHOCYTES - REL (CELLAVISION)(BEAKER) (test 4 % yqoi=6982) MONOCYTES - REL (CELLAVISION)(BEAKER) (test 8 % qkql=3094) METAMYELOCYTES - REL (CELLAVISION)(BEAKER) (test 1 % 0-0 mdqv=3358) NEUTROPHILS - ABS (CELLAVISION)(BEAKER) (test 13.40 K/ul 1.78-5.38 mbai=6945) LYMPHOCYTES - ABS (CELLAVISION)(BEAKER) (test 0.62 K/ul 1.32-3.57 devl=3879) MONOCYTES - ABS (CELLAVISION)(BEAKER) (test 1.23 K/uL 0.30-0.82 lqnb=7224) METAMYELOCYTES - ABS (CELLAVISION)(BEAKER) (test 0.15 K/uL 0.00-0.00 mxei=8448) TOTAL COUNTED (BEAKER) (test ucjd=2352) 100 WBC MORPHOLOGY (BEAKER) (test faag=670) Normal PLT MORPHOLOGY (BEAKER) (test afle=392) Normal ANISOCYTOSIS (BEAKER) (test ncvj=731) 1+ few MACROCYTES (BEAKER) (test peaq=885) 1+ few POIKILOCYTES (BEAKER) (test mife=499) 1+ few ARTIFACT (CELLAVISION)(BEAKER) (test aggu=6244) Present PLATELET CONCENTRATION (CELLAVISION)(BEAKER) Adequate (test ebir=0533) Received comment: User comments: Slide comments:HEPATIC FUNCTION [id number] 15:08:00 Test Item Value Reference Range Comments TOTAL PROTEIN (BEAKER) (test 7.7 gm/dL 6.0-8.3 Specimen slightly hemolyzed selr=241) ALBUMIN (BEAKER) (test 3.9 g/dL 3.5-5.0 Specimen slightly hemolyzed syfz=4386) BILIRUBIN TOTAL (BEAKER) (test 0.6 mg/dL 0.2-1.2 Specimen slightly hemolyzed pvys=021) BILIRUBIN DIRECT (BEAKER) (test 0.3 mg/dL 0.1-0.5 Specimen slightly hemolyzed fppa=409) ALKALINE PHOSPHATASE (BEAKER) 87 U/L 40-150 (test mudb=248) AST (SGOT) (BEAKER) (test 53 U/L 5-34 Specimen slightly hemolyzed qmfu=857) ALT (SGPT) (BEAKER) (test 19 U/L 6-55 Specimen slightly hemolyzed upjn=185) [id number] 14:50:00 Test Item Value Reference Range Comments PROTIME (BEAKER) (test edao=613) 38.6 seconds 11.9-14.2 INR (BEAKER) (test hzmv=335) 4.2 <=5.9 PARTIAL THROMBOPLASTIN TIME (BEAKER) (test 51.3 seconds 22.5-36.0 mpml=799) Effective 07/29/2018: PT Reference Range ChangeNew: 11.9-14.2 Previous: 11.7- 14.7RECOMMENDED COUMADIN/WARFARIN INR THERAPY RANGESSTANDARD DOSE: 2.0-3.0 Includes: PROPHYLAXIS for venous thrombosis, systemic embolization; TREATMENT for venous thrombosis and/or pulmonary embolus.HIGH RISK: Target INR is2.5-3.5 for patients wiht mechanical heart valves.PT/[id number] 11:42:00 Test Item Value Reference Range Comments PROTIME (BEAKER) (test cphn=232) 24.7 seconds 11.9-14.2 INR (BEAKER) (test pyna=354) 2.4 <=5.9 PARTIAL THROMBOPLASTIN TIME (BEAKER) (test 57.0 seconds 22.5-36.0 pkbe=464) Effective 07/29/2018: PT Reference Range ChangeNew: 11.9-14.2 Previous: 11.7- 14.7RECOMMENDED COUMADIN/WARFARIN INR THERAPY RANGESSTANDARD DOSE: 2.0-3.0 Includes: PROPHYLAXIS for venous thrombosis, systemic embolization; TREATMENT for venous thrombosis and/or pulmonary embolus.HIGH RISK: Target INR is2.5-3.5 for patients wiht mechanical heart valves.RAD, CHEST, 1 VIEW, NON [id number] 11:15:00Reason for exam:->effusion vs atelectasisShould this [...] Juan Verified Date/Time: 08/26/2018 11:15:52 Reading Location: [facility] Radiology Reading Room [id number] 09:15:00 Test Item Value Reference Range Comments PHOSPHORUS (BEAKER) (test lahu=475) 2.9 mg/dL 2.3-4.7 [id number] 09:15:00 Test Item Value Reference Range Comments MAGNESIUM (BEAKER) (test gnya=764) 1.6 mg/dL 1.6-2.6 COMPREHENSIVE METABOLIC [id number] 09:15:00 Test Item Value Reference Range Comments TOTAL PROTEIN (BEAKER) 5.7 gm/dL 6.0-8.3 (test vnii=654) ALBUMIN (BEAKER) (test 2.8 g/dL 3.5-5.0 wxbu=5322) ALKALINE PHOSPHATASE 148 U/L 40-150 (BEAKER) (test kcev=133) BILIRUBIN TOTAL (BEAKER) 1.5 mg/dL 0.2-1.2 (test eaze=801) SODIUM (BEAKER) (test 137 meq/L 136-145 ajrb=896) POTASSIUM (BEAKER) (test 3.8 meq/L 3.5-5.1 nouc=084) CHLORIDE (BEAKER) (test 102 meq/L 98-107 pwbi=133) CO2 (BEAKER) (test 29 meq/L 22-29 twwf=775) BLOOD UREA NITROGEN 16 mg/dL 7-21 (BEAKER) (test unwn=759) CREATININE (BEAKER) (test 3.59 mg/dL 0.57-1.25 eyra=138) GLUCOSE RANDOM (BEAKER) 74 mg/dL 70-105 (test vpwf=021) CALCIUM (BEAKER) (test 8.5 mg/dL 8.4-10.2 pdan=172) AST (SGOT) (BEAKER) (test 24 U/L 5-34 smks=200) ALT (SGPT) (BEAKER) (test 8 U/L 6-55 gciy=773) EGFR (BEAKER) (test 17 mL/min/1.73 sq m ESTIMATED GFR IS NOT wjqb=6552) ACCURATE CREATININE CLEARANCE IN PREDICTING GLOMERULAR FILTRATION RATE. ESTIMATED GFR IS NOT APPLICABLE FOR DIALYSIS PATIENTS. POCT-GLUCOSE [id number] 09:06:00 Test Item Value Reference Range Comments POC-GLUCOSE METER (BEAKER) 85 mg/dL 70-110 TESTED AT [facility] [address] (test izla=9229) [facility] [id number] CBC W/PLT COUNT & AUTO [id number] 08:34:00 Test Item Value Reference Range Comments WHITE BLOOD CELL COUNT (BEAKER) (test fsrd=395) 7.5 K/ L 3.5-10.5 RED BLOOD CELL COUNT (BEAKER) (test cymu=666) 2.50 M/ L 4.63-6.08 HEMOGLOBIN (BEAKER) (test dzpo=112) 7.9 GM/DL 13.7-17.5 HEMATOCRIT (BEAKER) (test iyqe=485) 25.5 % 40.1-51.0 MEAN CORPUSCULAR VOLUME (BEAKER) (test wymf=650) 102.0 fL 79.0-92.2 MEAN CORPUSCULAR HEMOGLOBIN (BEAKER) (test 31.6 pg 25.7-32.2 dbvg=678) MEAN CORPUSCULAR HEMOGLOBIN CONC (BEAKER) (test 31.0 GM/DL 32.3-36.5 legl=296) RED CELL DISTRIBUTION WIDTH (BEAKER) (test 17.3 % 11.6-14.4 krkg=983) PLATELET COUNT (BEAKER) (test osgb=039) 140 K/CU MM 150-450 MEAN PLATELET VOLUME (BEAKER) (test dqie=923) 10.1 fL 9.4-12.4 NUCLEATED RED BLOOD CELLS (BEAKER) (test 0 /100 WBC 0-0 amsg=811) NEUTROPHILS RELATIVE PERCENT (BEAKER) (test 70 % qujs=463) LYMPHOCYTES RELATIVE PERCENT (BEAKER) (test 13 % bggs=096) MONOCYTES RELATIVE PERCENT (BEAKER) (test 11 % fvnc=730) EOSINOPHILS RELATIVE PERCENT (BEAKER) (test 5 % hddv=354) BASOPHILS RELATIVE PERCENT (BEAKER) (test 1 % fpce=944) NEUTROPHILS ABSOLUTE COUNT (BEAKER) (test 5.25 K/ L 1.78-5.38 hyff=089) LYMPHOCYTES ABSOLUTE COUNT (BEAKER) (test 0.97 K/ L 1.32-3.57 tznr=483) MONOCYTES ABSOLUTE COUNT (BEAKER) (test 0.84 K/ L 0.30-0.82 amws=196) EOSINOPHILS ABSOLUTE COUNT (BEAKER) (test 0.37 K/ L 0.04-0.54 maug=844) BASOPHILS ABSOLUTE COUNT (BEAKER) (test 0.05 K/ L 0.01-0.08 uulm=369) IMMATURE GRANULOCYTES-RELATIVE PERCENT (BEAKER) 1 % 0-1 (test scdc=1623) BLOOD [id number] 08:01:00 Test Item Value Reference Range Comments CULTURE (BEAKER) (test cxtk=9433) No growth in 5 days BLOOD [id number] 08:01:00 Test Item Value Reference Range Comments CULTURE (BEAKER) (test oquc=6394) No growth in 5 days POCT-GLUCOSE [id number] 22:09:00 Test Item Value Reference Range Comments POC-GLUCOSE METER (BEAKER) 186 mg/dL 70-110 TESTED AT [facility] [address] [facility] [address] (test devq=6310) [facility] [address] [id number] 18:27:00 Test Item Value Reference Range Comments MAGNESIUM (BEAKER) (test 1.8 mg/dL 1.6-2.6 Specimen slightly hemolyzed acak=507) [id number] 18:27:00 Test Item Value Reference Range Comments PHOSPHORUS (BEAKER) (test 2.0 mg/dL 2.3-4.7 Specimen slightly hemolyzed akwg=881) COMPREHENSIVE METABOLIC [id number] 18:27:00 Test Item Value Reference Range Comments TOTAL PROTEIN (BEAKER) 5.7 gm/dL 6.0-8.3 Specimen slightly (test olwq=034) hemolyzed ALBUMIN (BEAKER) (test 2.8 g/dL 3.5-5.0 Specimen slightly lulv=1160) hemolyzed ALKALINE PHOSPHATASE 149 U/L 40-150 (BEAKER) (test fclw=011) BILIRUBIN TOTAL (BEAKER) 1.5 mg/dL 0.2-1.2 Specimen slightly (test ixxc=951) hemolyzed SODIUM (BEAKER) (test 139 meq/L 136-145 esun=645) POTASSIUM (BEAKER) (test 3.8 meq/L 3.5-5.1 Specimen slightly xyvs=453) hemolyzed CHLORIDE (BEAKER) (test 102 meq/L 98-107 vdag=118) CO2 (BEAKER) (test 27 meq/L 22-29 wpzy=705) BLOOD UREA NITROGEN 8 mg/dL 7-21 (BEAKER) (test bqcv=144) CREATININE (BEAKER) (test 2.16 mg/dL 0.57-1.25 Specimen slightly sfce=028) hemolyzed GLUCOSE RANDOM (BEAKER) 129 mg/dL 70-105 (test rqia=043) CALCIUM (BEAKER) (test 8.5 mg/dL 8.4-10.2 uxty=346) AST (SGOT) (BEAKER) (test 34 U/L 5-34 Specimen slightly dgzf=330) hemolyzed ALT (SGPT) (BEAKER) (test 10 U/L 6-55 Specimen slightly avod=696) hemolyzed EGFR (BEAKER) (test 30 mL/min/1.73 sq m ESTIMATED GFR IS NOT dylu=8802) ACCURATE CREATININE CLEARANCE IN PREDICTING GLOMERULAR FILTRATION RATE. ESTIMATED GFR IS NOT APPLICABLE FOR DIALYSIS PATIENTS. PROTHROMBIN [id number] 18:24:00 Test Item Value Reference Range Comments PROTIME (BEAKER) (test csci=212) 28.1 seconds 11.9-14.2 INR (BEAKER) (test xsqh=115) 2.8 <=5.9 Effective 07/29/2018: PT Reference Range ChangeNew: 11.9-14.2 Previous: 11.7- 14.7RECOMMENDED COUMADIN/WARFARIN INR THERAPY RANGESSTANDARD DOSE: 2.0-3.0 Includes: PROPHYLAXIS for venous thrombosis, systemic embolization; TREATMENT for venous thrombosis and/or pulmonary embolus.HIGH RISK: Target INR is2.5-3.5 for patients wiht mechanical heart valves.CBC W/PLT COUNT & AUTO [id number] 18:07:00 Test Item Value Reference Range Comments WHITE BLOOD CELL COUNT (BEAKER) (test cuty=555) 7.4 K/ L 3.5-10.5 RED BLOOD CELL COUNT (BEAKER) (test dwvc=923) 2.23 M/ L 4.63-6.08 HEMOGLOBIN (BEAKER) (test isvq=833) 7.0 GM/DL 13.7-17.5 HEMATOCRIT (BEAKER) (test seub=725) 22.8 % 40.1-51.0 MEAN CORPUSCULAR VOLUME (BEAKER) (test bkwf=141) 102.2 fL 79.0-92.2 MEAN CORPUSCULAR HEMOGLOBIN (BEAKER) (test 31.4 pg 25.7-32.2 hnsl=549) MEAN CORPUSCULAR HEMOGLOBIN CONC (BEAKER) (test 30.7 GM/DL 32.3-36.5 orvu=862) RED CELL DISTRIBUTION WIDTH (BEAKER) (test 17.5 % 11.6-14.4 fbru=076) PLATELET COUNT (BEAKER) (test ltrw=515) 141 K/CU MM 150-450 MEAN PLATELET VOLUME (BEAKER) (test wovd=499) 10.4 fL 9.4-12.4 NUCLEATED RED BLOOD CELLS (BEAKER) (test 0 /100 WBC 0-0 huwz=000) NEUTROPHILS RELATIVE PERCENT (BEAKER) (test 76 % wvcr=152) LYMPHOCYTES RELATIVE PERCENT (BEAKER) (test 7 % tpfq=586) MONOCYTES RELATIVE PERCENT (BEAKER) (test 11 % sbse=355) EOSINOPHILS RELATIVE PERCENT (BEAKER) (test 5 % wjxx=896) BASOPHILS RELATIVE PERCENT (BEAKER) (test 1 % vnst=995) NEUTROPHILS ABSOLUTE COUNT (BEAKER) (test 5.54 K/ L 1.78-5.38 opbw=993) LYMPHOCYTES ABSOLUTE COUNT (BEAKER) (test 0.54 K/ L 1.32-3.57 nnlz=747) MONOCYTES ABSOLUTE COUNT (BEAKER) (test 0.78 K/ L 0.30-0.82 vsdj=615) EOSINOPHILS ABSOLUTE COUNT (BEAKER) (test 0.37 K/ L 0.04-0.54 hdln=473) BASOPHILS ABSOLUTE COUNT (BEAKER) (test 0.06 K/ L 0.01-0.08 vmoi=879) IMMATURE GRANULOCYTES-RELATIVE PERCENT (BEAKER) 1 % 0-1 (test afjs=1325) POCT-GLUCOSE [id number] 17:43:00 Test Item Value Reference Range Comments POC-GLUCOSE METER (BEAKER) 140 mg/dL 70-110 TESTED AT [place] [address] [address] (test jyxf=9841) [facility] [address] POCT-GLUCOSE [id number] 19:25:00 Test Item Value Reference Range Comments POC-GLUCOSE METER (BEAKER) 106 mg/dL 70-110 TESTED AT [place] [address] [address] (test clrf=3712) [facility] [address] COMPREHENSIVE METABOLIC [id number] 17:30:00 Test Item Value Reference Range Comments TOTAL PROTEIN (BEAKER) 5.7 gm/dL 6.0-8.3 (test lisk=317) ALBUMIN (BEAKER) (test 2.8 g/dL 3.5-5.0 lctn=9932) ALKALINE PHOSPHATASE 166 U/L 40-150 (BEAKER) (test emqw=793) BILIRUBIN TOTAL (BEAKER) 1.6 mg/dL 0.2-1.2 (test zuoi=607) SODIUM (BEAKER) (test 135 meq/L 136-145 thjc=145) POTASSIUM (BEAKER) (test 4.4 meq/L 3.5-5.1 tykx=272) CHLORIDE (BEAKER) (test 99 meq/L 98-107 hytu=340) CO2 (BEAKER) (test 29 meq/L 22-29 kjcw=258) BLOOD UREA NITROGEN 31 mg/dL 7-21 (BEAKER) (test copg=119) CREATININE (BEAKER) (test 5.20 mg/dL 0.57-1.25 bvvv=958) GLUCOSE RANDOM (BEAKER) 127 mg/dL 70-105 (test ikzv=680) CALCIUM (BEAKER) (test 8.8 mg/dL 8.4-10.2 yxkl=961) AST (SGOT) (BEAKER) (test 30 U/L 5-34 togd=790) ALT (SGPT) (BEAKER) (test 9 U/L 6-55 itva=350) EGFR (BEAKER) (test 11 mL/min/1.73 sq m ESTIMATED GFR IS NOT nhkt=5329) ACCURATE CREATININE CLEARANCE IN PREDICTING GLOMERULAR FILTRATION RATE. ESTIMATED GFR IS NOT APPLICABLE FOR DIALYSIS PATIENTS. [id number] 17:29:00 Test Item Value Reference Range Comments PHOSPHORUS (BEAKER) (test qbom=765) 4.0 mg/dL 2.3-4.7 [id number] 17:29:00 Test Item Value Reference Range Comments MAGNESIUM (BEAKER) (test ismr=025) 2.2 mg/dL 1.6-2.6 [id number] 17:25:00 Test Item Value Reference Range Comments PROTIME (BEAKER) (test kles=060) 24.9 seconds 11.9-14.2 INR (BEAKER) (test kemn=748) 2.4 <=5.9 PARTIAL THROMBOPLASTIN TIME (BEAKER) (test 49.8 seconds 22.5-36.0 qznj=759) Effective 07/29/2018: PT Reference Range ChangeNew: 11.9-14.2 Previous: 11.7- 14.7RECOMMENDED COUMADIN/WARFARIN INR THERAPY RANGESSTANDARD DOSE: 2.0-3.0 Includes: PROPHYLAXIS for venous thrombosis, systemic embolization; TREATMENT for venous thrombosis and/or pulmonary embolus.HIGH RISK: Target INR is2.5-3.5 for patients wiht mechanical heart valves.Draw during dialysisDraw during dialysisPROTHROMBIN [id number] 17:24:00 Test Item Value Reference Range Comments PROTIME (BEAKER) (test otsd=990) 24.9 seconds 11.9-14.2 INR (BEAKER) (test fpoc=687) 2.4 <=5.9 Effective 07/29/2018: PT Reference Range ChangeNew: 11.9-14.2 Previous: 11.7- 14.7RECOMMENDED COUMADIN/WARFARIN INR THERAPY RANGESSTANDARD DOSE: 2.0-3.0 Includes: PROPHYLAXIS for venous thrombosis, systemic embolization; TREATMENT for venous thrombosis and/or pulmonary embolus.HIGH RISK: Target INR is2.5-3.5 for patients wiht mechanical heart valves.CBC W/PLT COUNT & AUTO [id number] 17:17:00 Test Item Value Reference Range Comments WHITE BLOOD CELL COUNT (BEAKER) (test eiov=524) 8.0 K/ L 3.5-10.5 RED BLOOD CELL COUNT (BEAKER) (test iajz=896) 2.31 M/ L 4.63-6.08 HEMOGLOBIN (BEAKER) (test difg=265) 7.4 GM/DL 13.7-17.5 HEMATOCRIT (BEAKER) (test tmzb=117) 23.0 % 40.1-51.0 MEAN CORPUSCULAR VOLUME (BEAKER) (test yrun=216) 99.6 fL 79.0-92.2 MEAN CORPUSCULAR HEMOGLOBIN (BEAKER) (test 32.0 pg 25.7-32.2 knwa=181) MEAN CORPUSCULAR HEMOGLOBIN CONC (BEAKER) (test 32.2 GM/DL 32.3-36.5 bpex=945) RED CELL DISTRIBUTION WIDTH (BEAKER) (test 17.6 % 11.6-14.4 odpz=929) PLATELET COUNT (BEAKER) (test whhy=450) 140 K/CU MM 150-450 MEAN PLATELET VOLUME (BEAKER) (test fprg=781) 10.6 fL 9.4-12.4 NUCLEATED RED BLOOD CELLS (BEAKER) (test 0 /100 WBC 0-0 yblq=586) NEUTROPHILS RELATIVE PERCENT (BEAKER) (test 77 % lbaw=701) LYMPHOCYTES RELATIVE PERCENT (BEAKER) (test 8 % dwwj=493) MONOCYTES RELATIVE PERCENT (BEAKER) (test 10 % abwg=610) EOSINOPHILS RELATIVE PERCENT (BEAKER) (test 5 % tpem=162) BASOPHILS RELATIVE PERCENT (BEAKER) (test 1 % chqa=889) NEUTROPHILS ABSOLUTE COUNT (BEAKER) (test 6.12 K/ L 1.78-5.38 mgqj=351) LYMPHOCYTES ABSOLUTE COUNT (BEAKER) (test 0.62 K/ L 1.32-3.57 umuy=835) MONOCYTES ABSOLUTE COUNT (BEAKER) (test 0.78 K/ L 0.30-0.82 coxn=231) EOSINOPHILS ABSOLUTE COUNT (BEAKER) (test 0.38 K/ L 0.04-0.54 pqbm=090) BASOPHILS ABSOLUTE COUNT (BEAKER) (test 0.04 K/ L 0.01-0.08 ihlf=466) IMMATURE GRANULOCYTES-RELATIVE PERCENT (BEAKER) 1 % 0-1 (test xidk=8544) POCT-GLUCOSE [id number] 12:10:00 Test Item Value Reference Range Comments POC-GLUCOSE METER (BEAKER) 164 mg/dL 70-110 TESTED AT [facility] [address] [facility] [facility] (test sgzf=3285) [facility] [address] RAD, CHEST, 1 VIEW, NON [id number] 09:42:00Reason for exam:->effusion vs atelectasisShould this be performed at the bedside?->YesFINAL REPORT CLINICAL HISTORY: effusion vs atelectasis TECHNIQUE: 1 view of the chest. COMPARISON: 08/23/2018 IMPRESSION: The left central line is unchanged. Bilateral airspace opacities appear slightly decreased. There is no significant pleural fluid. The cardiomediastinal silhouette is magnified by technique. Signed: Stephanie Santacruz Verified Date/Time: 08/24/2018 09:42: 37 Reading Location: [facility] Radiology Reading Room POCT-GLUCOSE [id number] 08:18:00 Test Item Value Reference Range Comments POC-GLUCOSE METER (BEAKER) 145 mg/dL 70-110 TESTED AT [address] (test fpwy=8726) [facility] [address] POCT-GLUCOSE [id number] 23:55:00 Test Item Value Reference Range Comments POC-GLUCOSE METER (BEAKER) 163 mg/dL 70-110 TESTED AT [address] (test mrzc=9656) [place] [id number] POCT-GLUCOSE [id number] 18:04:00 Test Item Value Reference Range Comments POC-GLUCOSE METER (BEAKER) 141 mg/dL 70-110 TESTED AT [address] (test axog=4138) [facility] [address] POCT-GLUCOSE [id number] 08:04:00 Test Item Value Reference Range Comments POC-GLUCOSE METER (BEAKER) 138 mg/dL 70-110 TESTED AT [address] (test uspl=2213) [facility] [address] RAD, CHEST, 1 VIEW, NON [id number] 07:29:00Reason for exam:->effusion vs atelectasisShould this be performed at the bedside?->YesFINAL REPORT CLINICAL HISTORY: effusion vs atelectasis TECHNIQUE: 1 view of the chest. COMPARISON: 08/22/2018 IMPRESSION: The left central line is unchanged. There are low lung volumes with persistent pulmonary vascular congestion. Bilateral airspace opacities may be slightly increased. Subpulmonic pleural effusions cannot be excluded. The cardiomediastinal silhouette is magnified by technique. Signed: tSephanie Santacruz Verified Date/Time: 07:29:02 Reading Location: [facility] C013 Neuro Reading Room COMPREHENSIVE METABOLIC [id number] 04:16:00 Test Item Value Reference Range Comments TOTAL PROTEIN (BEAKER) 5.6 gm/dL 6.0-8.3 (test zbgk=640) ALBUMIN (BEAKER) (test 2.8 g/dL 3.5-5.0 yncq=9530) ALKALINE PHOSPHATASE 174 U/L 40-150 (BEAKER) (test wsrr=491) BILIRUBIN TOTAL (BEAKER) 1.5 mg/dL 0.2-1.2 (test gnbn=157) SODIUM (BEAKER) (test 138 meq/L 136-145 jstn=325) POTASSIUM (BEAKER) (test 4.0 meq/L 3.5-5.1 wltd=984) CHLORIDE (BEAKER) (test 102 meq/L 98-107 nekk=168) CO2 (BEAKER) (test 27 meq/L 22-29 wsqv=722) BLOOD UREA NITROGEN 19 mg/dL 7-21 (BEAKER) (test iiru=032) CREATININE (BEAKER) (test 3.43 mg/dL 0.57-1.25 gmqb=420) GLUCOSE RANDOM (BEAKER) 146 mg/dL 70-105 (test rqam=813) CALCIUM (BEAKER) (test 8.7 mg/dL 8.4-10.2 uiie=385) AST (SGOT) (BEAKER) (test 31 U/L 5-34 iyes=279) ALT (SGPT) (BEAKER) (test 15 U/L 6-55 toir=314) EGFR (BEAKER) (test 18 mL/min/1.73 sq m ESTIMATED GFR IS NOT hcje=9321) ACCURATE CREATININE CLEARANCE IN PREDICTING GLOMERULAR FILTRATION RATE. ESTIMATED GFR IS NOT APPLICABLE FOR DIALYSIS PATIENTS. [id number] 04:04:00 Test Item Value Reference Range Comments PHOSPHORUS (BEAKER) (test ydvi=808) 2.8 mg/dL 2.3-4.7 [id number] 04:04:00 Test Item Value Reference Range Comments MAGNESIUM (BEAKER) (test whcc=147) 1.9 mg/dL 1.6-2.6 CBC W/PLT COUNT & AUTO [id number] 03:34:00 Test Item Value Reference Range Comments WHITE BLOOD CELL COUNT (BEAKER) (test gvcm=065) 7.1 K/ L 3.5-10.5 RED BLOOD CELL COUNT (BEAKER) (test sztm=118) 2.48 M/ L 4.63-6.08 HEMOGLOBIN (BEAKER) (test cxxg=770) 7.8 GM/DL 13.7-17.5 HEMATOCRIT (BEAKER) (test xrbu=543) 25.0 % 40.1-51.0 MEAN CORPUSCULAR VOLUME (BEAKER) (test zmie=423) 100.8 fL 79.0-92.2 MEAN CORPUSCULAR HEMOGLOBIN (BEAKER) (test 31.5 pg 25.7-32.2 dfqm=894) MEAN CORPUSCULAR HEMOGLOBIN CONC (BEAKER) (test 31.2 GM/DL 32.3-36.5 kkzr=076) RED CELL DISTRIBUTION WIDTH (BEAKER) (test 17.5 % 11.6-14.4 rdoh=010) PLATELET COUNT (BEAKER) (test jjwc=240) 150 K/CU MM 150-450 MEAN PLATELET VOLUME (BEAKER) (test rtue=328) 10.5 fL 9.4-12.4 NUCLEATED RED BLOOD CELLS (BEAKER) (test 0 /100 WBC 0-0 pfwi=767) NEUTROPHILS RELATIVE PERCENT (BEAKER) (test 72 % fcce=231) LYMPHOCYTES RELATIVE PERCENT (BEAKER) (test 12 % zmmq=795) MONOCYTES RELATIVE PERCENT (BEAKER) (test 10 % xybv=293) EOSINOPHILS RELATIVE PERCENT (BEAKER) (test 5 % avlw=104) BASOPHILS RELATIVE PERCENT (BEAKER) (test 1 % zdtc=359) NEUTROPHILS ABSOLUTE COUNT (BEAKER) (test 5.08 K/ L 1.78-5.38 jlwj=223) LYMPHOCYTES ABSOLUTE COUNT (BEAKER) (test 0.86 K/ L 1.32-3.57 azsw=242) MONOCYTES ABSOLUTE COUNT (BEAKER) (test 0.68 K/ L 0.30-0.82 yvcr=104) EOSINOPHILS ABSOLUTE COUNT (BEAKER) (test 0.36 K/ L 0.04-0.54 cfmw=400) BASOPHILS ABSOLUTE COUNT (BEAKER) (test 0.04 K/ L 0.01-0.08 yymp=787) IMMATURE GRANULOCYTES-RELATIVE PERCENT (BEAKER) 1 % 0-1 (test kdiq=9780) [id number] 03:34:00 Test Item Value Reference Range Comments PROTIME (BEAKER) (test doix=902) 24.7 seconds 11.9-14.2 INR (BEAKER) (test ndwb=828) 2.4 <=5.9 PARTIAL THROMBOPLASTIN TIME (BEAKER) (test 78.1 seconds 22.5-36.0 evgh=941) Effective 07/29/2018: PT Reference Range ChangeNew: 11.9-14.2 Previous: 11.7- 14.7RECOMMENDED COUMADIN/WARFARIN INR THERAPY RANGESSTANDARD DOSE: 2.0-3.0 Includes: PROPHYLAXIS for venous thrombosis, systemic embolization; TREATMENT for venous thrombosis and/or pulmonary embolus.HIGH RISK: Target INR is2.5-3.5 for patients wiht mechanical heart valves.PROTHROMBIN [id number] 03:32: 00 Test Item Value Reference Range Comments PROTIME (BEAKER) (test idva=716) 24.7 seconds 11.9-14.2 INR (BEAKER) (test ozhc=481) 2.4 <=5.9 Effective 07/29/2018: PT Reference Range ChangeNew: 11.9-14.2 Previous: 11.7- 14.7RECOMMENDED COUMADIN/WARFARIN INR THERAPY RANGESSTANDARD DOSE: 2.0-3.0 Includes: PROPHYLAXIS for venous thrombosis, systemic embolization; TREATMENT for venous thrombosis and/or pulmonary embolus.HIGH RISK: Target INR is2.5-3.5 for patients wiht mechanical heart valves.POCT-GLUCOSE [id number] 21:42:00 Test Item Value Reference Range Comments POC-GLUCOSE METER (BEAKER) 155 mg/dL 70-110 TESTED AT [address] (test btkm=8615) [facility] [address] HEPATITIS B SURFACE [id number] 18:37:00 Test Item Value Reference Range Comments HEPATITIS B SURFACE ANTIGEN (2) (BEAKER) (test Nonreactive Nonreactive qwnp=8315) POCT-GLUCOSE [id number] 16:21:00 Test Item Value Reference Range Comments POC-GLUCOSE METER (BEAKER) 114 mg/dL 70-110 TESTED AT [address] (test qupo=9807) [facility] [address] RAD, CHEST, 1 VIEW, NON [id number] 10:26:00Reason for exam:->effusion vs atelectasisShould this be [...] [place] Verified Date/Time: 08/22 10:26:49 Reading Location: [address] Transitional Reading Room COMPREHENSIVE METABOLIC [id number] 09:58:00 Test Item Value Reference Range Comments TOTAL PROTEIN (BEAKER) 5.7 gm/dL 6.0-8.3 Specimen slightly (test fqix=566) hemolyzed ALBUMIN (BEAKER) (test 2.8 g/dL 3.5-5.0 Specimen slightly swje=7437) hemolyzed ALKALINE PHOSPHATASE 179 U/L 40-150 (BEAKER) (test tkey=583) BILIRUBIN TOTAL (BEAKER) 1.2 mg/dL 0.2-1.2 Specimen slightly (test rhai=430) hemolyzed SODIUM (BEAKER) (test 137 meq/L 136-145 lavd=235) POTASSIUM (BEAKER) (test 4.8 meq/L 3.5-5.1 Specimen slightly mpzw=607) hemolyzed CHLORIDE (BEAKER) (test 104 meq/L 98-107 ocpb=091) CO2 (BEAKER) (test 25 meq/L 22-29 ghox=332) BLOOD UREA NITROGEN 30 mg/dL 7-21 (BEAKER) (test hodv=765) CREATININE (BEAKER) (test 4.82 mg/dL 0.57-1.25 Specimen slightly deoz=392) hemolyzed GLUCOSE RANDOM (BEAKER) 139 mg/dL 70-105 (test xflm=116) CALCIUM (BEAKER) (test 8.7 mg/dL 8.4-10.2 tqpy=997) AST (SGOT) (BEAKER) (test 38 U/L 5-34 Specimen slightly fptc=783) hemolyzed ALT (SGPT) (BEAKER) (test 18 U/L 6-55 Specimen slightly ibcl=235) hemolyzed EGFR (BEAKER) (test 12 mL/min/1.73 sq m ESTIMATED GFR IS NOT bhby=9319) ACCURATE CREATININE CLEARANCE IN PREDICTING GLOMERULAR FILTRATION RATE. ESTIMATED GFR IS NOT APPLICABLE FOR DIALYSIS PATIENTS. [id number] 09:41:00 Test Item Value Reference Range Comments MAGNESIUM (BEAKER) (test 2.3 mg/dL 1.6-2.6 Specimen slightly hemolyzed byuj=413) [id number] 09:41:00 Test Item Value Reference Range Comments PHOSPHORUS (BEAKER) (test 3.8 mg/dL 2.3-4.7 Specimen slightly hemolyzed udmq=505) BLOOD [id number] 09:14:00 Test Item Value Reference Range Comments CULTURE (BEAKER) (test STAPHYLOCOCCUS AUREUS From Aerobic And bhha=8059) Anaerobic Bottles Staphylococcus aureus Clindamycin (test code=10) Erythromycin (test code=4) Linezolid (test code=40) Oxacillin (test code=14) Rifampin (test code=43) Tetracycline (test code=2) Trimethoprim + Sulfamethoxazole (test code=47) Vancomycin (test code=13) GRAM STAIN RESULT From aerobic and (BEAKER) (test joru=0158) anaerobic bottles: gram positive cocci in pairs and clusters U/S, EXTREMITY (NON-VASCULAR) [id number] 08:59:00Reason for exam:-> AVF Left arm for [...] Verified Date/Time: 08/22/2018 08: 59:48 Reading Location: [facility] [id number] Ortho Consult Reading Room POCT- GLUCOSE [id number] 07:15:00 Test Item Value Reference Range Comments POC-GLUCOSE METER (BEAKER) 160 mg/dL 70-110 TESTED AT [facility] [address] (test gqbv=9691) [facility] [address] [id number] 06:52:00 Test Item Value Reference Range Comments PROTIME (BEAKER) (test dzha=286) 18.5 seconds 11.9-14.2 INR (BEAKER) (test tjvh=536) 1.6 <=5.9 PARTIAL THROMBOPLASTIN TIME (BEAKER) (test 72.0 seconds 22.5-36.0 txzc=220) Effective 07/29/2018: PT Reference Range ChangeNew: 11.9-14.2 Previous: 11.7- 14.7RECOMMENDED COUMADIN/WARFARIN INR THERAPY RANGESSTANDARD DOSE: 2.0-3.0 Includes: PROPHYLAXIS for venous thrombosis, systemic embolization; TREATMENT for venous thrombosis and/or pulmonary embolus.HIGH RISK: Target INR is2.5-3.5 for patients wiht mechanical heart valves.CBC W/PLT COUNT & AUTO [id number] 06:44:00 Test Item Value Reference Range Comments WHITE BLOOD CELL COUNT 7.2 K/ L 3.5-10.5 (BEAKER) (test stvt=452) RED BLOOD CELL COUNT (BEAKER) 2.58 M/ L 4.63-6.08 (test qnzk=748) HEMOGLOBIN (BEAKER) (test 8.2 GM/DL 13.7-17.5 htne=445) HEMATOCRIT (BEAKER) (test 26.4 % 40.1-51.0 ojlh=889) MEAN CORPUSCULAR VOLUME 102.3 fL 79.0-92.2 Discordant result compares (BEAKER) (test ejlv=593) with previous; clinical correlation requires. MEAN CORPUSCULAR HEMOGLOBIN 31.8 pg 25.7-32.2 (BEAKER) (test hgox=978) MEAN CORPUSCULAR HEMOGLOBIN 31.1 GM/DL 32.3-36.5 CONC (BEAKER) (test fjid=416) RED CELL DISTRIBUTION WIDTH 18.0 % 11.6-14.4 (BEAKER) (test qcvh=554) PLATELET COUNT (BEAKER) (test 172 K/CU MM 150-450 nwdy=856) MEAN PLATELET VOLUME (BEAKER) 10.9 fL 9.4-12.4 (test rmye=524) NUCLEATED RED BLOOD CELLS 0 /100 WBC 0-0 (BEAKER) (test poqy=051) NEUTROPHILS RELATIVE PERCENT 75 % (BEAKER) (test ejyd=838) LYMPHOCYTES RELATIVE PERCENT 8 % (BEAKER) (test tchg=660) MONOCYTES RELATIVE PERCENT 10 % (BEAKER) (test kylo=898) EOSINOPHILS RELATIVE PERCENT 5 % (BEAKER) (test aqap=587) BASOPHILS RELATIVE PERCENT 1 % (BEAKER) (test okhr=806) NEUTROPHILS ABSOLUTE COUNT 5.46 K/ L 1.78-5.38 (BEAKER) (test uyme=940) LYMPHOCYTES ABSOLUTE COUNT 0.59 K/ L 1.32-3.57 (BEAKER) (test qnve=111) MONOCYTES ABSOLUTE COUNT 0.75 K/ L 0.30-0.82 (BEAKER) (test erek=692) EOSINOPHILS ABSOLUTE COUNT 0.33 K/ L 0.04-0.54 (BEAKER) (test kcvh=101) BASOPHILS ABSOLUTE COUNT 0.04 K/ L 0.01-0.08 (BEAKER) (test tbad=168) IMMATURE 1 % 0-1 GRANULOCYTES-RELATIVE PERCENT (BEAKER) (test ckgx=0901) POCT-GLUCOSE [id number] 22:02:00 Test Item Value Reference Range Comments POC-GLUCOSE METER (BEAKER) 194 mg/dL 70-110 TESTED AT [facility] [address] (test cxvz=2371) [facility] [address] U/S, EXTREMITY (NON-VASCULAR), LEFT, [id number] 20:03:00Reason for exam:- >left upper arm around [...] Rosarioort Verified Date/Time: 08/21/2018 20:03:43 Reading Location: [facility] [id number] Consult Reading Room POCT-GLUCOSE [id number] 17:27:00 Test Item Value Reference Range Comments POC-GLUCOSE METER (BEAKER) 202 mg/dL 70-110 TESTED AT [address] (test eqdu=7393) [place] [address] POCT-GLUCOSE [id number] 11:50:00 Test Item Value Reference Range Comments POC-GLUCOSE METER (BEAKER) 130 mg/dL 70-110 TESTED AT [address] (test vcvu=3405) [place] [address] RAD, CHEST, 1 VIEW, NON [id number] 08:49:00Reason for exam:->effusion vs atelectasisShould this be [...] Location: [facility] Reading Room POCT-GLUCOSE [id number] 08: 09:00 Test Item Value Reference Range Comments POC-GLUCOSE METER (BEAKER) 221 mg/dL 70-110 TESTED AT [address] (test hqpd=4079) [place] [address] COMPREHENSIVE METABOLIC [id number] 02:27:00 Test Item Value Reference Range Comments TOTAL PROTEIN (BEAKER) 5.5 gm/dL 6.0-8.3 Specimen slightly (test dure=202) hemolyzed ALBUMIN (BEAKER) (test 2.7 g/dL 3.5-5.0 Specimen slightly wchq=9970) hemolyzed ALKALINE PHOSPHATASE 156 U/L 40-150 (BEAKER) (test fsas=528) BILIRUBIN TOTAL (BEAKER) 1.2 mg/dL 0.2-1.2 Specimen slightly (test bepb=440) hemolyzed SODIUM (BEAKER) (test 135 meq/L 136-145 prse=427) POTASSIUM (BEAKER) (test 4.7 meq/L 3.5-5.1 Specimen slightly wpsj=004) hemolyzed CHLORIDE (BEAKER) (test 98 meq/L 98-107 cdon=600) CO2 (BEAKER) (test 28 meq/L 22-29 wmhe=977) BLOOD UREA NITROGEN 40 mg/dL 7-21 (BEAKER) (test gvfu=093) CREATININE (BEAKER) (test 6.42 mg/dL 0.57-1.25 Specimen slightly pspc=989) hemolyzed GLUCOSE RANDOM (BEAKER) 228 mg/dL 70-105 (test ieeb=908) CALCIUM (BEAKER) (test 8.6 mg/dL 8.4-10.2 citi=847) AST (SGOT) (BEAKER) (test 38 U/L 5-34 Specimen slightly bmtn=737) hemolyzed ALT (SGPT) (BEAKER) (test 28 U/L 6-55 Specimen slightly uxcf=166) hemolyzed EGFR (BEAKER) (test 9 mL/min/1.73 sq m ESTIMATED GFR IS NOT bvyt=8654) ACCURATE CREATININE CLEARANCE IN PREDICTING GLOMERULAR FILTRATION RATE. ESTIMATED GFR IS NOT APPLICABLE FOR DIALYSIS PATIENTS. PT/[id number] 02:19:00 Test Item Value Reference Range Comments PROTIME (BEAKER) (test pzzi=119) 19.6 seconds 11.9-14.2 INR (BEAKER) (test vizi=666) 1.8 <=5.9 PARTIAL THROMBOPLASTIN TIME (BEAKER) (test 74.9 seconds 22.5-36.0 gxyc=651) Effective 07/29/2018: PT Reference Range ChangeNew: 11.9-14.2 Previous: 11.7- 14.7RECOMMENDED COUMADIN/WARFARIN INR THERAPY RANGESSTANDARD DOSE: 2.0-3.0 Includes: PROPHYLAXIS for venous thrombosis, systemic embolization; TREATMENT for venous thrombosis and/or pulmonary embolus.HIGH RISK: Target INR is2.5-3.5 for patients wiht mechanical heart valves.[id number] 02:15:00 Test Item Value Reference Range Comments MAGNESIUM (BEAKER) (test 2.3 mg/dL 1.6-2.6 Specimen slightly hemolyzed mpvq=328) [id number] 02:15:00 Test Item Value Reference Range Comments PHOSPHORUS (BEAKER) (test 4.2 mg/dL 2.3-4.7 Specimen slightly hemolyzed ubyh=536) CBC W/PLT COUNT & AUTO [id number] 01:56:00 Test Item Value Reference Range Comments WHITE BLOOD CELL COUNT (BEAKER) (test anyi=728) 7.5 K/ L 3.5-10.5 RED BLOOD CELL COUNT (BEAKER) (test lutx=096) 2.55 M/ L 4.63-6.08 HEMOGLOBIN (BEAKER) (test azxq=403) 8.2 GM/DL 13.7-17.5 HEMATOCRIT (BEAKER) (test wlgu=136) 24.9 % 40.1-51.0 MEAN CORPUSCULAR VOLUME (BEAKER) (test uxkh=014) 97.6 fL 79.0-92.2 MEAN CORPUSCULAR HEMOGLOBIN (BEAKER) (test 32.2 pg 25.7-32.2 nvea=094) MEAN CORPUSCULAR HEMOGLOBIN CONC (BEAKER) (test 32.9 GM/DL 32.3-36.5 ytyi=619) RED CELL DISTRIBUTION WIDTH (BEAKER) (test 17.7 % 11.6-14.4 llzj=410) PLATELET COUNT (BEAKER) (test uoew=662) 171 K/CU MM 150-450 MEAN PLATELET VOLUME (BEAKER) (test wxrh=389) 10.5 fL 9.4-12.4 NUCLEATED RED BLOOD CELLS (BEAKER) (test 0 /100 WBC 0-0 xqns=040) NEUTROPHILS RELATIVE PERCENT (BEAKER) (test 71 % ugbp=446) LYMPHOCYTES RELATIVE PERCENT (BEAKER) (test 12 % zppp=472) MONOCYTES RELATIVE PERCENT (BEAKER) (test 12 % dzuh=246) EOSINOPHILS RELATIVE PERCENT (BEAKER) (test 4 % wlpr=864) BASOPHILS RELATIVE PERCENT (BEAKER) (test 1 % cada=996) NEUTROPHILS ABSOLUTE COUNT (BEAKER) (test 5.25 K/ L 1.78-5.38 ibds=760) LYMPHOCYTES ABSOLUTE COUNT (BEAKER) (test 0.90 K/ L 1.32-3.57 xwix=529) MONOCYTES ABSOLUTE COUNT (BEAKER) (test 0.92 K/ L 0.30-0.82 bhnd=272) EOSINOPHILS ABSOLUTE COUNT (BEAKER) (test 0.29 K/ L 0.04-0.54 bulf=336) BASOPHILS ABSOLUTE COUNT (BEAKER) (test 0.04 K/ L 0.01-0.08 raej=445) IMMATURE GRANULOCYTES-RELATIVE PERCENT (BEAKER) 1 % 0-1 (test qotg=0555) POCT-GLUCOSE [id number] 22:44:00 Test Item Value Reference Range Comments POC-GLUCOSE METER (BEAKER) 220 mg/dL 70-110 TESTED AT [address] (test pxox=9498) [place] [id number] POCT-GLUCOSE [id number] 22:44:00 Test Item Value Reference Range Comments POC-GLUCOSE METER (BEAKER) 160 mg/dL 70-110 TESTED AT [address] (test hgqn=0282) [place] [address] POCT-GLUCOSE [id number] 18:37:00 Test Item Value Reference Range Comments POC-GLUCOSE METER (BEAKER) 239 mg/dL 70-110 TESTED AT [address] (test jfdd=1826) [place] [id number] 13:41:00 Test Item Value Reference Range Comments PARTIAL THROMBOPLASTIN TIME (BEAKER) (test 89.2 seconds 22.5-36.0 hgnp=378) 4 hours after the start of continuous infusion and 4 hours after any rate changePOCT-GLUCOSE [id number] 12:27:00 Test Item Value Reference Range Comments POC-GLUCOSE METER (BEAKER) 147 mg/dL 70-110 TESTED AT [address] (test cpeh=7735) [facility] [address] [id number] 10:01:00 Test Item Value Reference Range Comments PARTIAL THROMBOPLASTIN TIME (BEAKER) (test 84.5 seconds 22.5-36.0 eauy=623) 4 hours after the start of continuous infusion and 4 hours after any rate changePOCT-GLUCOSE [id number] 05:44:00 Test Item Value Reference Range Comments POC-GLUCOSE METER (BEAKER) 190 mg/dL 70-110 TESTED AT [address] (test xnko=5446) [facility] [address] COMPREHENSIVE METABOLIC [id number] 04:54:00 Test Item Value Reference Range Comments TOTAL PROTEIN (BEAKER) 5.2 gm/dL 6.0-8.3 (test kwhp=069) ALBUMIN (BEAKER) (test 2.7 g/dL 3.5-5.0 gkrl=6478) ALKALINE PHOSPHATASE 160 U/L 40-150 (BEAKER) (test riod=512) BILIRUBIN TOTAL (BEAKER) 1.2 mg/dL 0.2-1.2 (test dohf=106) SODIUM (BEAKER) (test 139 meq/L 136-145 tgef=392) POTASSIUM (BEAKER) (test 4.5 meq/L 3.5-5.1 rqjw=946) CHLORIDE (BEAKER) (test 104 meq/L 98-107 dhuz=188) CO2 (BEAKER) (test 24 meq/L 22-29 kfju=480) BLOOD UREA NITROGEN 32 mg/dL 7-21 (BEAKER) (test krug=933) CREATININE (BEAKER) (test 5.06 mg/dL 0.57-1.25 izkd=048) GLUCOSE RANDOM (BEAKER) 177 mg/dL 70-105 (test vexe=283) CALCIUM (BEAKER) (test 8.9 mg/dL 8.4-10.2 krfg=354) AST (SGOT) (BEAKER) (test 32 U/L 5-34 iunx=668) ALT (SGPT) (BEAKER) (test 37 U/L 6-55 mfsv=264) EGFR (BEAKER) (test 11 mL/min/1.73 sq m ESTIMATED GFR IS NOT qobn=2558) ACCURATE CREATININE CLEARANCE IN PREDICTING GLOMERULAR FILTRATION RATE. ESTIMATED GFR IS NOT APPLICABLE FOR DIALYSIS PATIENTS. CBC W/PLT COUNT & AUTO [id number] 04:36:00 Test Item Value Reference Range Comments WHITE BLOOD CELL COUNT (BEAKER) (test aeww=937) 7.4 K/ L 3.5-10.5 RED BLOOD CELL COUNT (BEAKER) (test ydqq=527) 2.65 M/ L 4.63-6.08 HEMOGLOBIN (BEAKER) (test xwly=353) 8.4 GM/DL 13.7-17.5 HEMATOCRIT (BEAKER) (test idrv=725) 25.8 % 40.1-51.0 MEAN CORPUSCULAR VOLUME (BEAKER) (test hqda=913) 97.4 fL 79.0-92.2 MEAN CORPUSCULAR HEMOGLOBIN (BEAKER) (test 31.7 pg 25.7-32.2 xxug=267) MEAN CORPUSCULAR HEMOGLOBIN CONC (BEAKER) (test 32.6 GM/DL 32.3-36.5 wiln=863) RED CELL DISTRIBUTION WIDTH (BEAKER) (test 17.6 % 11.6-14.4 zlad=032) PLATELET COUNT (BEAKER) (test jiru=769) 155 K/CU MM 150-450 MEAN PLATELET VOLUME (BEAKER) (test duym=204) 11.1 fL 9.4-12.4 NUCLEATED RED BLOOD CELLS (BEAKER) (test 0 /100 WBC 0-0 mrbn=124) NEUTROPHILS RELATIVE PERCENT (BEAKER) (test 73 % yjfs=625) LYMPHOCYTES RELATIVE PERCENT (BEAKER) (test 9 % vgle=281) MONOCYTES RELATIVE PERCENT (BEAKER) (test 14 % hkkv=069) EOSINOPHILS RELATIVE PERCENT (BEAKER) (test 3 % mukw=380) BASOPHILS RELATIVE PERCENT (BEAKER) (test 1 % buzf=308) NEUTROPHILS ABSOLUTE COUNT (BEAKER) (test 5.42 K/ L 1.78-5.38 hyba=933) LYMPHOCYTES ABSOLUTE COUNT (BEAKER) (test 0.65 K/ L 1.32-3.57 grvr=017) MONOCYTES ABSOLUTE COUNT (BEAKER) (test 1.00 K/ L 0.30-0.82 xwmp=251) EOSINOPHILS ABSOLUTE COUNT (BEAKER) (test 0.22 K/ L 0.04-0.54 oeio=273) BASOPHILS ABSOLUTE COUNT (BEAKER) (test 0.05 K/ L 0.01-0.08 zqtr=364) IMMATURE GRANULOCYTES-RELATIVE PERCENT (BEAKER) 1 % 0-1 (test tjww=9427) [id number] 04:33:00 Test Item Value Reference Range Comments PHOSPHORUS (BEAKER) (test glsg=388) 3.7 mg/dL 2.3-4.7 [id number] 04:33:00 Test Item Value Reference Range Comments MAGNESIUM (BEAKER) (test uitp=062) 2.2 mg/dL 1.6-2.6 VANCOMYCIN LEVEL, [id number] 04:33:00 Test Item Value Reference Range Comments VANCOMYCIN RANDOM (BEAKER) (test hdgc=382) 9.2 ug/mL Reference Range: No NormalsPT/[id number] 04:23:00 Test Item Value Reference Range Comments PROTIME (BEAKER) (test wskf=019) 17.1 seconds 11.9-14.2 INR (BEAKER) (test zubw=168) 1.5 <=5.9 PARTIAL THROMBOPLASTIN TIME (BEAKER) (test 50.1 seconds 22.5-36.0 pgcu=210) Effective 07/29/2018: PT Reference Range ChangeNew: 11.9-14.2 Previous: 11.7- 14.7RECOMMENDED COUMADIN/WARFARIN INR THERAPY RANGESSTANDARD DOSE: 2.0-3.0 Includes: PROPHYLAXIS for venous thrombosis, systemic embolization; TREATMENT for venous thrombosis and/or pulmonary embolus.HIGH RISK: Target INR is2.5-3.5 for patients wiht mechanical heart valves.RAD, CHEST, 1 VIEW, NON [id number] 03:59:00Reason for exam:->effusion vs atelectasisShould this [...] Verified Date/Time: 08/20/2018 03:59: 43 Reading Location: [address] Reading Room [id number] 00:43:00 Test Item Value Reference Range Comments PARTIAL THROMBOPLASTIN TIME (BEAKER) (test 46.3 seconds 22.5-36.0 etpw=613) 4 hours after the start of continuous infusion and 4 hours after any rate changePOCT-GLUCOSE [id number] 00:10:00 Test Item Value Reference Range Comments POC-GLUCOSE METER (BEAKER) 169 mg/dL 70-110 TESTED AT [facility] [address] [place] [address] (test phaz=3663) [facility] [address] BLOOD CULTURE IDENTIFICATION [id number] 23:35:00 Test Item Value Reference Range Comments LISTERIA MONOCYTOGENES Not detected Not detected (test thbl=[id number]) STAPHYLOCOCCUS (test Detected Not detected xelf=6681252) STAPHYLOCOCCUS AUREUS Detected Not detected Methicillin-susceptible S. (test irnr=8738854) aureus (MSSA)First-line therapy: Cefazolin or Oxacillin (Oxacillin preferred if WEATHERIZATION OPERATIONS MANAGER involvement) ID CONSULTATION REQUIREDStaphylococcus aureus DETECTEDMecA NOT DETECTED Reference Range: Not Detected STREPTOCOCCUS (test Not detected Not detected nbov=7834630) STREPTOCOCCUS AGALACTIAE Not detected Not detected (GROUP B) (test eggu=0495168) STREPTOCOCCUS PNEUMONIAE Not detected Not detected (test pfdm=0455252) STREPTOCOCCUS PYOGENES Not detected Not detected (GROUP A) (test giwd=1440063) ACINETOBACTER BAUMANNII Not detected Not detected (test ycrl=1546604) HAEMOPHILUS INFLUENZAE Not detected Not detected (test obid=4238623) NEISSERIA MENINGITIDIS Not detected Not detected (test vvna=0381735) ENTEROBACTERIACEAE (test Not detected Not detected edjr=8033926) ENTEROBACTER CLOACOE Not detected Not detected COMPLEX (test jfbb=4005795) KLEBSIELLA OXYTOCA (test Not detected Not detected vcdg=4638979) KLEBSIELLA PNEUMONIAE Not detected Not detected (test sjrr=1659) PROTEUS (test Not detected Not detected dxne=5269058) SERRATIA MARCESCENS (test Not detected Not detected xwik=3621906) MITA ALBICANS (test Not detected Not detected xycc=9228872) MITA GLABRATA (test Not detected Not detected ejlu=3132967) MITA KRUSEI (test Not detected Not detected ovyb=9294002) MITA PARAPSILOSIS (test Not detected Not detected mcjg=0258332) MITA TROPICALIS (test Not detected Not detected drwo=8061695) ESCHERICHIA COLI (test Not detected Not detected xyiu=5651201) METHICILLIN-RESISTANCE Not detected Not detected GENE (test xftm=7910560) VANCOMYCIN-RESISTANCE GENE Not detected (test stgi=1723418) CARBAPENEM-RESISTANCE GENE Not detected (test wqdi=4821488) ENTEROCOCCUS-BEAKER (test Not detected Not detected kxql=4439038) PSEUDOMONAS Not detected Not detected AERUGINOSA-BEAKER (test rdex=1921222) Other bacteria and resistance markers not targeted by this PCR panel cannot be excluded; therefore clinical correlation and follow up of serology, culture results, and other molecular studies is required. The results are not intended to be used as the sole means for clinical diagnosis or patient management decisions. This sample was tested at the [facility] Molecular Diagnostics Laboratory using the [employer] Blood Culture ID Panel. It is FDA cleared and has been verified and approved by the [facility] for clinical use. This laboratory is CLIA-certified and College ofAmerican Pathologists (CAP)-accredited to perform high complexity testing.[id number] 21:01:00 Test Item Value Reference Range Comments PARTIAL THROMBOPLASTIN TIME (BEAKER) (test 43.2 seconds 22.5-36.0 osgo=554) 4 hours after the start of continuous infusion and 4 hours after any rate changePOCT-GLUCOSE [id number] 17:58:00 Test Item Value Reference Range Comments POC-GLUCOSE METER ([facility]) 127 mg/dL 70-110 TESTED AT [facility] [address] (test euhb=5829) [facility] [address] [id number] 15:30:00 Test Item Value Reference Range Comments PARTIAL THROMBOPLASTIN TIME (BEAKER) (test 33.1 seconds 22.5-36.0 cbff=012) Draw baseline aPTT prior to infusionCBC (HEMOGRAM ONLY)2018-08-19 15:22:00 Test Item Value Reference Range Comments WHITE BLOOD CELL COUNT (BEAKER) (test zvjw=629) 6.9 K/ L 3.5-10.5 RED BLOOD CELL COUNT (BEAKER) (test kwlu=290) 2.87 M/ L 4.63-6.08 HEMOGLOBIN (BEAKER) (test rerc=625) 9.0 GM/DL 13.7-17.5 HEMATOCRIT (BEAKER) (test edhq=774) 27.1 % 40.1-51.0 MEAN CORPUSCULAR VOLUME (BEAKER) (test gdif=700) 94.4 fL 79.0-92.2 MEAN CORPUSCULAR HEMOGLOBIN (BEAKER) (test 31.4 pg 25.7-32.2 mars=410) MEAN CORPUSCULAR HEMOGLOBIN CONC (BEAKER) (test 33.2 GM/DL 32.3-36.5 iktu=671) RED CELL DISTRIBUTION WIDTH (BEAKER) (test 17.2 % 11.6-14.4 kqsq=026) PLATELET COUNT (BEAKER) (test dlgr=903) 145 K/CU MM 150-450 MEAN PLATELET VOLUME (BEAKER) (test zlan=530) 10.2 fL 9.4-12.4 NUCLEATED RED BLOOD CELLS (BEAKER) (test 0 /100 WBC 0-0 vfet=682) JHOAN TUNNELED CATHETER [id number] 14:44:00Reason for exam:->ESRD requiring dialysis and malfuctioning [...] Mona Wick Verified Date/Time: 14:44:44 Reading Location: [place] [address] Angio Body Reading Room POCT-GLUCOSE [id number] 11:54:00 Test Item Value Reference Range Comments POC-GLUCOSE METER (BEAKER) 165 mg/dL 70-110 TESTED AT [address] (test asoy=5227) [facility] [address] RAD, CHEST, 1 VIEW, NON [id number] 08:21:00Reason for exam:->effusion vs atelectasisShould this be performed at the bedside?->YesFINAL REPORT Comparison: 08/18/2018 TECHNIQUE: Single view of the chest FINDINGS: There is mild vascular congestion. There may be trace pleural effusions. No gross new lung parenchymal changes. Cardiac silhouette is enlarged. A stent projects over the left upper chest. Signed: Franklin Juan MDRabhijitort Verified Date/Time: 08/19/2018 08:21:06 Reading Location: [facility] Radiology ReadingRoom Electronically signed by: FRANKLIN JUAN M.D. on 08/19 08:21 AMPOCT-GLUCOSE [id number] 06:30:00 Test Item Value Reference Range Comments POC-GLUCOSE METER (BEAKER) 162 mg/dL 70-110 TESTED AT [facility] [address] [facility] (test icxv=6199) [facility] [address] POCT-GLUCOSE [id number] 05:50:00 Test Item Value Reference Range Comments POC-GLUCOSE METER (BEAKER) 157 mg/dL 70-110 TESTED AT [place] [id number] [facility] (test alyf=7909) [facility] [address] COMPREHENSIVE METABOLIC [id number] 05:23:00 Test Item Value Reference Range Comments TOTAL PROTEIN (BEAKER) 5.4 gm/dL 6.0-8.3 (test vwzc=219) ALBUMIN (BEAKER) (test 2.8 g/dL 3.5-5.0 ooeo=2952) ALKALINE PHOSPHATASE 172 U/L 40-150 (BEAKER) (test qjsv=351) BILIRUBIN TOTAL (BEAKER) 1.1 mg/dL 0.2-1.2 (test caod=660) SODIUM (BEAKER) (test 129 meq/L 136-145 vjby=388) POTASSIUM (BEAKER) (test 4.7 meq/L 3.5-5.1 kgpl=904) CHLORIDE (BEAKER) (test 96 meq/L 98-107 hnlg=488) CO2 (BEAKER) (test 24 meq/L 22-29 ywxz=110) BLOOD UREA NITROGEN 67 mg/dL 7-21 (BEAKER) (test eozc=743) CREATININE (BEAKER) (test 8.22 mg/dL 0.57-1.25 sewq=693) GLUCOSE RANDOM (BEAKER) 156 mg/dL 70-105 (test qqit=421) CALCIUM (BEAKER) (test 8.5 mg/dL 8.4-10.2 gvwn=729) AST (SGOT) (BEAKER) (test 29 U/L 5-34 geqq=860) ALT (SGPT) (BEAKER) (test 36 U/L 6-55 qpqj=231) EGFR (BEAKER) (test 6 mL/min/1.73 sq m ESTIMATED GFR IS NOT bkwp=7463) ACCURATE CREATININE CLEARANCE IN PREDICTING GLOMERULAR FILTRATION RATE. ESTIMATED GFR IS NOT APPLICABLE FOR DIALYSIS PATIENTS. [id number] 05:22:00 Test Item Value Reference Range Comments PHOSPHORUS (BEAKER) (test unum=668) 4.7 mg/dL 2.3-4.7 [id number] 05:22:00 Test Item Value Reference Range Comments MAGNESIUM (BEAKER) (test narr=915) 2.4 mg/dL 1.6-2.6 PT/[id number] 05:19:00 Test Item Value Reference Range Comments PROTIME (BEAKER) (test stah=715) 15.3 seconds 11.9-14.2 INR (BEAKER) (test vizv=915) 1.3 <=5.9 PARTIAL THROMBOPLASTIN TIME (BEAKER) (test 34.9 seconds 22.5-36.0 wzbn=736) Effective 07/29/2018: PT Reference Range ChangeNew: 11.9-14.2 Previous: 11.7- 14.7RECOMMENDED COUMADIN/WARFARIN INR THERAPY RANGESSTANDARD DOSE: 2.0-3.0 Includes: PROPHYLAXIS for venous thrombosis, systemic embolization; TREATMENT for venous thrombosis and/or pulmonary embolus.HIGH RISK: Target INR is2.5-3.5 for patients wiht mechanical heart valves.[id number] 05:02:00 Test Item Value Reference Range Comments AMMONIA (BEAKER) (test tksu=726) 35 mol/L 18-72 CBC W/PLT COUNT & AUTO [id number] 04:55:00 Test Item Value Reference Range Comments WHITE BLOOD CELL COUNT (BEAKER) (test wmcb=567) 7.9 K/ L 3.5-10.5 RED BLOOD CELL COUNT (BEAKER) (test kumx=703) 2.84 M/ L 4.63-6.08 HEMOGLOBIN (BEAKER) (test ihgr=174) 8.9 GM/DL 13.7-17.5 HEMATOCRIT (BEAKER) (test rvoa=698) 27.6 % 40.1-51.0 MEAN CORPUSCULAR VOLUME (BEAKER) (test kjij=799) 97.2 fL 79.0-92.2 MEAN CORPUSCULAR HEMOGLOBIN (BEAKER) (test 31.3 pg 25.7-32.2 ohkl=386) MEAN CORPUSCULAR HEMOGLOBIN CONC (BEAKER) (test 32.2 GM/DL 32.3-36.5 dmgl=201) RED CELL DISTRIBUTION WIDTH (BEAKER) (test 17.6 % 11.6-14.4 fbbx=702) PLATELET COUNT (BEAKER) (test fpce=628) 169 K/CU MM 150-450 MEAN PLATELET VOLUME (BEAKER) (test vnzf=555) 11.0 fL 9.4-12.4 NUCLEATED RED BLOOD CELLS (BEAKER) (test 0 /100 WBC 0-0 xozi=662) NEUTROPHILS RELATIVE PERCENT (BEAKER) (test 70 % rsfo=758) LYMPHOCYTES RELATIVE PERCENT (BEAKER) (test 10 % jcex=760) MONOCYTES RELATIVE PERCENT (BEAKER) (test 13 % xtwm=048) EOSINOPHILS RELATIVE PERCENT (BEAKER) (test 5 % ygso=663) BASOPHILS RELATIVE PERCENT (BEAKER) (test 1 % ozfp=871) NEUTROPHILS ABSOLUTE COUNT (BEAKER) (test 5.50 K/ L 1.78-5.38 ijsc=249) LYMPHOCYTES ABSOLUTE COUNT (BEAKER) (test 0.82 K/ L 1.32-3.57 gtpn=644) MONOCYTES ABSOLUTE COUNT (BEAKER) (test 1.06 K/ L 0.30-0.82 blhm=208) EOSINOPHILS ABSOLUTE COUNT (BEAKER) (test 0.36 K/ L 0.04-0.54 itfh=726) BASOPHILS ABSOLUTE COUNT (BEAKER) (test 0.08 K/ L 0.01-0.08 yfns=452) IMMATURE GRANULOCYTES-RELATIVE PERCENT (BEAKER) 1 % 0-1 (test zjlk=4403) POCT-GLUCOSE [id number] 21:46:00 Test Item Value Reference Range Comments POC-GLUCOSE METER (BEAKER) 167 mg/dL 70-110 TESTED AT [facility] [address] [facility] (test lcse=7064) [facility] [address] BASIC METABOLIC [id number] 19:16:00 Test Item Value Reference Range Comments SODIUM (BEAKER) (test 132 meq/L 136-145 epxa=039) POTASSIUM (BEAKER) (test 4.7 meq/L 3.5-5.1 dfea=622) CHLORIDE (BEAKER) (test 97 meq/L 98-107 gkje=061) CO2 (BEAKER) (test 24 meq/L 22-29 tnbt=801) BLOOD UREA NITROGEN 61 mg/dL 7-21 (BEAKER) (test mgsu=234) CREATININE (BEAKER) (test 7.73 mg/dL 0.57-1.25 fanz=131) GLUCOSE RANDOM (BEAKER) 144 mg/dL 70-105 (test gvxs=563) CALCIUM (BEAKER) (test 9.2 mg/dL 8.4-10.2 nsua=490) EGFR (BEAKER) (test 7 mL/min/1.73 sq m ESTIMATED GFR IS NOT fptk=9634) ACCURATE CREATININE CLEARANCE IN PREDICTING GLOMERULAR FILTRATION RATE. ESTIMATED GFR IS NOT APPLICABLE FOR DIALYSIS PATIENTS. POCT-GLUCOSE [id number] 16:57:00 Test Item Value Reference Range Comments POC-GLUCOSE METER (BEAKER) 118 mg/dL 70-110 TESTED AT [address] (test jruo=2401) [facility] [address] RAD, CHEST, 1 VIEW, NON [id number] 16:42:00Post-intubationReason for exam:-& gt;SOBShould this be performed [...] [place] Verified Date/Time: 08/18/2018 16:42:09 Reading Location: [address] Radiology Reading Room HEMOGLOBIN [id number] 13:45:00 Test Item Value Reference Range Comments HEMOGLOBIN A1C (BEAKER) (test lxln=481) 5.5 % 4.3-6.1 COMPREHENSIVE METABOLIC [id number] 13:03:00 Test Item Value Reference Range Comments TOTAL PROTEIN (BEAKER) 6.9 gm/dL 6.0-8.3 Specimen moderately (test rslt=334) hemolyzed ALBUMIN (BEAKER) (test 3.2 g/dL 3.5-5.0 Specimen moderately oqnr=7762) hemolyzed ALKALINE PHOSPHATASE 149 U/L 40-150 (BEAKER) (test uzst=430) BILIRUBIN TOTAL (BEAKER) 1.2 mg/dL 0.2-1.2 Specimen moderately (test eznn=330) hemolyzed SODIUM (BEAKER) (test 130 meq/L 136-145 ljub=255) POTASSIUM (BEAKER) (test 5.0 meq/L 3.5-5.1 Specimen moderately lmqo=008) hemolyzed CHLORIDE (BEAKER) (test 96 meq/L 98-107 umfr=836) CO2 (BEAKER) (test 25 meq/L 22-29 duyl=549) BLOOD UREA NITROGEN 57 mg/dL 7-21 (BEAKER) (test biig=213) CREATININE (BEAKER) (test 7.51 mg/dL 0.57-1.25 Specimen moderately fsqd=193) hemolyzed GLUCOSE RANDOM (BEAKER) 91 mg/dL 70-105 (test pmrj=855) CALCIUM (BEAKER) (test 9.2 mg/dL 8.4-10.2 yotw=229) AST (SGOT) (BEAKER) (test 46 U/L 5-34 Specimen moderately aueb=417) hemolyzed ALT (SGPT) (BEAKER) (test 46 U/L 6-55 Specimen moderately ukno=520) hemolyzed EGFR (BEAKER) (test 7 mL/min/1.73 sq m ESTIMATED GFR IS NOT rplj=2880) ACCURATE CREATININE CLEARANCE IN PREDICTING GLOMERULAR FILTRATION RATE. ESTIMATED GFR IS NOT APPLICABLE FOR DIALYSIS PATIENTS. [id number] 12:59:00 Test Item Value Reference Range Comments MAGNESIUM (BEAKER) (test 2.8 mg/dL 1.6-2.6 Specimen moderately hemolyzed ippj=245) [id number] 12:59:00 Test Item Value Reference Range Comments PHOSPHORUS (BEAKER) (test 4.2 mg/dL 2.3-4.7 Specimen moderately hemolyzed jbmd=272) [id number] 12:42:00 Test Item Value Reference Range Comments PROTIME (BEAKER) (test skiv=666) 19.1 seconds 11.9-14.2 INR (BEAKER) (test ixim=908) 1.7 <=5.9 PARTIAL THROMBOPLASTIN TIME (BEAKER) (test 36.7 seconds 22.5-36.0 ebek=976) Effective 07/29/2018: PT Reference Range ChangeNew: 11.9-14.2 Previous: 11.7- 14.7RECOMMENDED COUMADIN/WARFARIN INR THERAPY RANGESSTANDARD DOSE: 2.0-3.0 Includes: PROPHYLAXIS for venous thrombosis, systemic embolization; TREATMENT for venous thrombosis and/or pulmonary embolus.HIGH RISK: Target INR is2.5-3.5 for patients wiht mechanical heart valves.PROTHROMBIN [id number] 12:41: 00 Test Item Value Reference Range Comments PROTIME (BEAKER) (test rfrg=863) 19.1 seconds 11.9-14.2 INR (BEAKER) (test xlua=482) 1.7 <=5.9 Effective 07/29/2018: PT Reference Range ChangeNew: 11.9-14.2 Previous: 11.7- 14.7RECOMMENDED COUMADIN/WARFARIN INR THERAPY RANGESSTANDARD DOSE: 2.0-3.0 Includes: PROPHYLAXIS for venous thrombosis, systemic embolization; TREATMENT for venous thrombosis and/or pulmonary embolus.HIGH RISK: Target INR is2.5-3.5 for patients wiht mechanical heart valves.CBC W/PLT COUNT & AUTO [id number] 12:24:00 Test Item Value Reference Range Comments WHITE BLOOD CELL COUNT (BEAKER) (test vczp=183) 9.1 K/ L 3.5-10.5 RED BLOOD CELL COUNT (BEAKER) (test nfms=219) 3.40 M/ L 4.63-6.08 HEMOGLOBIN (BEAKER) (test pdmo=048) 10.6 GM/DL 13.7-17.5 HEMATOCRIT (BEAKER) (test ezge=875) 33.5 % 40.1-51.0 MEAN CORPUSCULAR VOLUME (BEAKER) (test qpaj=834) 98.5 fL 79.0-92.2 MEAN CORPUSCULAR HEMOGLOBIN (BEAKER) (test 31.2 pg 25.7-32.2 hlry=482) MEAN CORPUSCULAR HEMOGLOBIN CONC (BEAKER) (test 31.6 GM/DL 32.3-36.5 gcim=641) RED CELL DISTRIBUTION WIDTH (BEAKER) (test 17.4 % 11.6-14.4 niwx=739) PLATELET COUNT (BEAKER) (test ttrc=417) 200 K/CU MM 150-450 MEAN PLATELET VOLUME (BEAKER) (test ipxw=435) 11.0 fL 9.4-12.4 NUCLEATED RED BLOOD CELLS (BEAKER) (test 0 /100 WBC 0-0 etch=172) NEUTROPHILS RELATIVE PERCENT (BEAKER) (test 76 % vkkf=636) LYMPHOCYTES RELATIVE PERCENT (BEAKER) (test 9 % ldys=143) MONOCYTES RELATIVE PERCENT (BEAKER) (test 10 % nnql=465) EOSINOPHILS RELATIVE PERCENT (BEAKER) (test 4 % meld=220) BASOPHILS RELATIVE PERCENT (BEAKER) (test 1 % dhzj=953) NEUTROPHILS ABSOLUTE COUNT (BEAKER) (test 6.95 K/ L 1.78-5.38 yfwp=433) LYMPHOCYTES ABSOLUTE COUNT (BEAKER) (test 0.79 K/ L 1.32-3.57 pxsh=068) MONOCYTES ABSOLUTE COUNT (BEAKER) (test 0.88 K/ L 0.30-0.82 bsgg=940) EOSINOPHILS ABSOLUTE COUNT (BEAKER) (test 0.36 K/ L 0.04-0.54 sixz=271) BASOPHILS ABSOLUTE COUNT (BEAKER) (test 0.07 K/ L 0.01-0.08 pjkp=735) IMMATURE GRANULOCYTES-RELATIVE PERCENT (BEAKER) 1 % 0-1 (test fegt=6720) POCT-GLUCOSE [id number] 12:56:00 Test Item Value Reference Range Comments POC-GLUCOSE METER (BEAKER) 131 mg/dL 70-110 TESTED AT [address] (test vync=3457) [place] [address] POCT-GLUCOSE [id number] 07:42:00 Test Item Value Reference Range Comments POC-GLUCOSE METER (BEAKER) 132 mg/dL 70-110 TESTED AT [address] (test ghal=1174) [place] [address] BASIC METABOLIC [id number] 06:40:00 Test Item Value Reference Range Comments SODIUM (BEAKER) (test 137 meq/L 136-145 sozh=671) POTASSIUM (BEAKER) (test 4.4 meq/L 3.5-5.1 inxh=639) CHLORIDE (BEAKER) (test 99 meq/L 98-107 euyd=802) CO2 (BEAKER) (test 29 meq/L 22-29 xfju=303) BLOOD UREA NITROGEN 31 mg/dL 7-21 (BEAKER) (test frhz=485) CREATININE (BEAKER) (test 5.05 mg/dL 0.57-1.25 cprn=327) GLUCOSE RANDOM (BEAKER) 146 mg/dL 70-105 (test zusb=283) CALCIUM (BEAKER) (test 9.0 mg/dL 8.4-10.2 kzxv=804) EGFR (BEAKER) (test 11 mL/min/1.73 sq m ESTIMATED GFR IS NOT pmri=0545) ACCURATE CREATININE CLEARANCE IN PREDICTING GLOMERULAR FILTRATION RATE. ESTIMATED GFR IS NOT APPLICABLE FOR DIALYSIS PATIENTS. [id number] 06:39:00 Test Item Value Reference Range Comments PHOSPHORUS (BEAKER) (test acdp=050) 3.7 mg/dL 2.3-4.7 [id number] 06:39:00 Test Item Value Reference Range Comments MAGNESIUM (BEAKER) (test nrma=625) 2.6 mg/dL 1.6-2.6 CBC W/PLT COUNT & AUTO [id number] 06:38:00 Test Item Value Reference Range Comments WHITE BLOOD CELL COUNT (BEAKER) (test evpq=895) 9.4 K/ L 3.5-10.5 RED BLOOD CELL COUNT (BEAKER) (test zqpp=826) 3.25 M/ L 4.63-6.08 HEMOGLOBIN (BEAKER) (test pgjo=185) 10.2 GM/DL 13.7-17.5 HEMATOCRIT (BEAKER) (test bwqf=551) 33.0 % 40.1-51.0 MEAN CORPUSCULAR VOLUME (BEAKER) (test ohhb=983) 101.5 fL 79.0-92.2 MEAN CORPUSCULAR HEMOGLOBIN (BEAKER) (test 31.4 pg 25.7-32.2 gplx=419) MEAN CORPUSCULAR HEMOGLOBIN CONC (BEAKER) (test 30.9 GM/DL 32.3-36.5 phty=294) RED CELL DISTRIBUTION WIDTH (BEAKER) (test 18.5 % 11.6-14.4 ljgv=749) PLATELET COUNT (BEAKER) (test exam=354) 202 K/CU MM 150-450 MEAN PLATELET VOLUME (BEAKER) (test bfmy=696) 10.8 fL 9.4-12.4 NUCLEATED RED BLOOD CELLS (BEAKER) (test 0 /100 WBC 0-0 jgse=923) NEUTROPHILS RELATIVE PERCENT (BEAKER) (test 81 % dpmz=743) LYMPHOCYTES RELATIVE PERCENT (BEAKER) (test 7 % qief=830) MONOCYTES RELATIVE PERCENT (BEAKER) (test 8 % srwu=319) EOSINOPHILS RELATIVE PERCENT (BEAKER) (test 2 % wjbt=313) BASOPHILS RELATIVE PERCENT (BEAKER) (test 1 % xhpx=763) NEUTROPHILS ABSOLUTE COUNT (BEAKER) (test 7.63 K/ L 1.78-5.38 wcvy=761) LYMPHOCYTES ABSOLUTE COUNT (BEAKER) (test 0.70 K/ L 1.32-3.57 kipd=553) MONOCYTES ABSOLUTE COUNT (BEAKER) (test 0.78 K/ L 0.30-0.82 fgvg=370) EOSINOPHILS ABSOLUTE COUNT (BEAKER) (test 0.18 K/ L 0.04-0.54 xutm=626) BASOPHILS ABSOLUTE COUNT (BEAKER) (test 0.06 K/ L 0.01-0.08 tjxs=485) IMMATURE GRANULOCYTES-RELATIVE PERCENT (BEAKER) 1 % 0-1 (test pqjo=5686) PROTHROMBIN [id number] 06:25:00 Test Item Value Reference Range Comments PROTIME (BEAKER) (test mkyf=163) 18.4 seconds 11.9-14.2 INR (BEAKER) (test zehh=719) 1.6 <=5.9 Effective 07/29/2018: PT Reference Range ChangeNew: 11.9-14.2 Previous: 11.7- 14.7RECOMMENDED COUMADIN/WARFARIN INR THERAPY RANGESSTANDARD DOSE: 2.0-3.0 Includes: PROPHYLAXIS for venous thrombosis, systemic embolization; TREATMENT for venous thrombosis and/or pulmonary embolus.HIGH RISK: Target INR is2.5-3.5 for patients wiht mechanical heart valves.While on warfarin.POCT-GLUCOSE [id number] 21:17:00 Test Item Value Reference Range Comments POC-GLUCOSE METER (BEAKER) 143 mg/dL 70-110 TESTED AT [facility] [address] [facility] (test kwnu=8961) [facility] [address] POCT-GLUCOSE [id number] 18:22:00 Test Item Value Reference Range Comments POC-GLUCOSE METER (BEAKER) 67 mg/dL 70-110 TESTED AT [place] [id number] [facility] (test ydtj=0577) [facility] [address] POCT-GLUCOSE [id number] 12:29:00 Test Item Value Reference Range Comments POC-GLUCOSE METER (BEAKER) 154 mg/dL 70-110 TESTED AT [address] (test xcdf=0616) [facility] [address] POCT-GLUCOSE [id number] 07:50:00 Test Item Value Reference Range Comments POC-GLUCOSE METER (BEAKER) 107 mg/dL 70-110 TESTED AT [address] (test skym=5087) [facility] [address] BASIC METABOLIC [id number] 07:03:00 Test Item Value Reference Range Comments SODIUM (BEAKER) (test 130 meq/L 136-145 reqq=286) POTASSIUM (BEAKER) (test 4.5 meq/L 3.5-5.1 dnuu=906) CHLORIDE (BEAKER) (test 95 meq/L 98-107 atcr=382) CO2 (BEAKER) (test 25 meq/L 22-29 jyqu=751) BLOOD UREA NITROGEN 45 mg/dL 7-21 (BEAKER) (test xomg=835) CREATININE (BEAKER) (test 6.26 mg/dL 0.57-1.25 lwck=598) GLUCOSE RANDOM (BEAKER) 100 mg/dL 70-105 (test nhpo=700) CALCIUM (BEAKER) (test 9.2 mg/dL 8.4-10.2 dseg=550) EGFR (BEAKER) (test 9 mL/min/1.73 sq m ESTIMATED GFR IS NOT xsny=1987) ACCURATE CREATININE CLEARANCE IN PREDICTING GLOMERULAR FILTRATION RATE. ESTIMATED GFR IS NOT APPLICABLE FOR DIALYSIS PATIENTS. [id number] 07:01:00 Test Item Value Reference Range Comments PHOSPHORUS (BEAKER) (test hhca=575) 4.4 mg/dL 2.3-4.7 [id number] 07:01:00 Test Item Value Reference Range Comments MAGNESIUM (BEAKER) (test asfo=831) 2.8 mg/dL 1.6-2.6 [id number] 06:43:00 Test Item Value Reference Range Comments PARTIAL THROMBOPLASTIN TIME (BEAKER) (test 89.2 seconds 22.5-36.0 ruch=220) 4 hours after the start of continuous infusion and 4 hours after any rate changeWhile on warfarin.PROTHROMBIN [id number] 06:41:00 Test Item Value Reference Range Comments PROTIME (BEAKER) (test riws=818) 21.2 seconds 11.9-14.2 INR (BEAKER) (test dgry=680) 2.0 <=5.9 Effective 07/29/2018: PT Reference Range ChangeNew: 11.9-14.2 Previous: 11.7- 14.7RECOMMENDED COUMADIN/WARFARIN INR THERAPY RANGESSTANDARD DOSE: 2.0-3.0 Includes: PROPHYLAXIS for venous thrombosis, systemic embolization; TREATMENT for venous thrombosis and/or pulmonary embolus.HIGH RISK: Target INR is2.5-3.5 for patients wiht mechanical heart valves.4 hours after the start of continuous infusion and4 hours after any rate changeWhile on warfarin.CBC W/PLT COUNT &amp ; AUTO [id number] 06:38:00 Test Item Value Reference Range Comments WHITE BLOOD CELL COUNT (BEAKER) (test oqko=755) 10.7 K/ L 3.5-10.5 RED BLOOD CELL COUNT (BEAKER) (test erom=253) 3.21 M/ L 4.63-6.08 HEMOGLOBIN (BEAKER) (test mpbj=198) 10.1 GM/DL 13.7-17.5 HEMATOCRIT (BEAKER) (test eyot=422) 31.9 % 40.1-51.0 MEAN CORPUSCULAR VOLUME (BEAKER) (test sygq=620) 99.4 fL 79.0-92.2 MEAN CORPUSCULAR HEMOGLOBIN (BEAKER) (test 31.5 pg 25.7-32.2 iogj=320) MEAN CORPUSCULAR HEMOGLOBIN CONC (BEAKER) (test 31.7 GM/DL 32.3-36.5 qrrh=770) RED CELL DISTRIBUTION WIDTH (BEAKER) (test 18.2 % 11.6-14.4 tcay=130) PLATELET COUNT (BEAKER) (test iyxk=154) 205 K/CU MM 150-450 MEAN PLATELET VOLUME (BEAKER) (test typr=375) 11.0 fL 9.4-12.4 NUCLEATED RED BLOOD CELLS (BEAKER) (test 0 /100 WBC 0-0 tdth=432) NEUTROPHILS RELATIVE PERCENT (BEAKER) (test 81 % muxk=148) LYMPHOCYTES RELATIVE PERCENT (BEAKER) (test 8 % jnly=918) MONOCYTES RELATIVE PERCENT (BEAKER) (test 8 % eaqp=578) EOSINOPHILS RELATIVE PERCENT (BEAKER) (test 2 % gzqd=008) BASOPHILS RELATIVE PERCENT (BEAKER) (test 1 % bckh=977) NEUTROPHILS ABSOLUTE COUNT (BEAKER) (test 8.71 K/ L 1.78-5.38 xpew=654) LYMPHOCYTES ABSOLUTE COUNT (BEAKER) (test 0.83 K/ L 1.32-3.57 ihwu=130) MONOCYTES ABSOLUTE COUNT (BEAKER) (test 0.84 K/ L 0.30-0.82 xxyl=686) EOSINOPHILS ABSOLUTE COUNT (BEAKER) (test 0.20 K/ L 0.04-0.54 hobd=501) BASOPHILS ABSOLUTE COUNT (BEAKER) (test 0.05 K/ L 0.01-0.08 inlf=415) IMMATURE GRANULOCYTES-RELATIVE PERCENT (BEAKER) 1 % 0-1 (test sbsh=6945) POCT-GLUCOSE [id number] 21:28:00 Test Item Value Reference Range Comments POC-GLUCOSE METER (BEAKER) 176 mg/dL 70-110 TESTED AT [address] (test rwvb=7125) [place] [id number] POCT-GLUCOSE [id number] 17:49:00 Test Item Value Reference Range Comments POC-GLUCOSE METER (BEAKER) 131 mg/dL 70-110 TESTED AT [address] (test pgrw=0096) [place] [id number] POCT-GLUCOSE [id number] 12:14:00 Test Item Value Reference Range Comments POC-GLUCOSE METER (BEAKER) 189 mg/dL 70-110 TESTED AT [address] (test rfgn=4637) [place] [address] [id number] 09:14:00 Test Item Value Reference Range Comments PHOSPHORUS (BEAKER) (test lhrx=012) 3.7 mg/dL 2.3-4.7 [id number] 09:14:00 Test Item Value Reference Range Comments MAGNESIUM (BEAKER) (test jwjt=106) 2.7 mg/dL 1.6-2.6 BASIC METABOLIC [id number] 09:14:00 Test Item Value Reference Range Comments SODIUM (BEAKER) (test 130 meq/L 136-145 ewpy=934) POTASSIUM (BEAKER) (test 3.9 meq/L 3.5-5.1 hldx=409) CHLORIDE (BEAKER) (test 94 meq/L 98-107 gort=914) CO2 (BEAKER) (test 29 meq/L 22-29 oodm=123) BLOOD UREA NITROGEN 36 mg/dL 7-21 (BEAKER) (test rewg=382) CREATININE (BEAKER) (test 5.45 mg/dL 0.57-1.25 qtqc=080) GLUCOSE RANDOM (BEAKER) 127 mg/dL 70-105 (test wtss=044) CALCIUM (BEAKER) (test 8.7 mg/dL 8.4-10.2 luao=794) EGFR (BEAKER) (test 10 mL/min/1.73 sq m ESTIMATED GFR IS NOT oevt=3029) ACCURATE CREATININE CLEARANCE IN PREDICTING GLOMERULAR FILTRATION RATE. ESTIMATED GFR IS NOT APPLICABLE FOR DIALYSIS PATIENTS. Specimen slightly ictericPOCT-GLUCOSE [id number] 08:55:00 Test Item Value Reference Range Comments POC-GLUCOSE METER (BEAKER) 139 mg/dL 70-110 TESTED AT [address] (test inkr=7996) [facility] [address] CBC W/PLT COUNT & AUTO [id number] 06:21:00 Test Item Value Reference Range Comments WHITE BLOOD CELL COUNT (BEAKER) (test vlqi=940) 9.9 K/ L 3.5-10.5 RED BLOOD CELL COUNT (BEAKER) (test udsm=100) 3.18 M/ L 4.63-6.08 HEMOGLOBIN (BEAKER) (test iviy=077) 10.0 GM/DL 13.7-17.5 HEMATOCRIT (BEAKER) (test lyuw=308) 32.4 % 40.1-51.0 MEAN CORPUSCULAR VOLUME (BEAKER) (test wleu=545) 101.9 fL 79.0-92.2 MEAN CORPUSCULAR HEMOGLOBIN (BEAKER) (test 31.4 pg 25.7-32.2 pcbx=075) MEAN CORPUSCULAR HEMOGLOBIN CONC (BEAKER) (test 30.9 GM/DL 32.3-36.5 ftce=662) RED CELL DISTRIBUTION WIDTH (BEAKER) (test 18.6 % 11.6-14.4 cugt=699) PLATELET COUNT (BEAKER) (test eccr=791) 199 K/CU MM 150-450 MEAN PLATELET VOLUME (BEAKER) (test lufi=966) 10.3 fL 9.4-12.4 NUCLEATED RED BLOOD CELLS (BEAKER) (test 0 /100 WBC 0-0 ucds=169) NEUTROPHILS RELATIVE PERCENT (BEAKER) (test 83 % dgkt=721) LYMPHOCYTES RELATIVE PERCENT (BEAKER) (test 6 % ivhs=295) MONOCYTES RELATIVE PERCENT (BEAKER) (test 8 % uyuq=873) EOSINOPHILS RELATIVE PERCENT (BEAKER) (test 2 % ifvj=993) BASOPHILS RELATIVE PERCENT (BEAKER) (test 1 % onbe=354) NEUTROPHILS ABSOLUTE COUNT (BEAKER) (test 8.20 K/ L 1.78-5.38 zmzp=141) LYMPHOCYTES ABSOLUTE COUNT (BEAKER) (test 0.61 K/ L 1.32-3.57 ukwh=338) MONOCYTES ABSOLUTE COUNT (BEAKER) (test 0.79 K/ L 0.30-0.82 jofm=598) EOSINOPHILS ABSOLUTE COUNT (BEAKER) (test 0.18 K/ L 0.04-0.54 gvza=901) BASOPHILS ABSOLUTE COUNT (BEAKER) (test 0.06 K/ L 0.01-0.08 ivfd=214) IMMATURE GRANULOCYTES-RELATIVE PERCENT (BEAKER) 1 % 0-1 (test bvbu=6217) PROTHROMBIN [id number] 06:14:00 Test Item Value Reference Range Comments PROTIME (BEAKER) (test sirs=916) 19.5 seconds 11.9-14.2 INR (BEAKER) (test kugl=987) 1.8 <=5.9 Effective 07/29/2018: PT Reference Range ChangeNew: 11.9-14.2 Previous: 11.7- 14.7RECOMMENDED COUMADIN/WARFARIN INR THERAPY RANGESSTANDARD DOSE: 2.0-3.0 Includes: PROPHYLAXIS for venous thrombosis, systemic embolization; TREATMENT for venous thrombosis and/or pulmonary embolus.HIGH RISK: Target INR is2.5-3.5 for patients wiht mechanical heart valves.While on warfarin.[id number] 06:14 :00 Test Item Value Reference Range Comments PARTIAL THROMBOPLASTIN TIME (BEAKER) (test 77.3 seconds 22.5-36.0 uufl=862) POCT-GLUCOSE [id number] 21:26:00 Test Item Value Reference Range Comments POC-GLUCOSE METER (BEAKER) 147 mg/dL 70-110 TESTED AT [address] (test mntf=0947) [facility] [address] POCT-GLUCOSE [id number] 17:59:00 Test Item Value Reference Range Comments POC-GLUCOSE METER (BEAKER) 114 mg/dL 70-110 TESTED AT [address] (test edhh=4256) [facility] [address] POCT-GLUCOSE [id number] 14:16:00 Test Item Value Reference Range Comments POC-GLUCOSE METER (BEAKER) 141 mg/dL 70-110 TESTED AT [address] (test eang=5591) [facility] [address] CBC W/PLT COUNT & AUTO [id number] 12:14:00 Test Item Value Reference Range Comments WHITE BLOOD CELL COUNT (BEAKER) (test uqlx=220) 12.0 K/ L 3.5-10.5 RED BLOOD CELL COUNT (BEAKER) (test vams=406) 3.31 M/ L 4.63-6.08 HEMOGLOBIN (BEAKER) (test vntc=058) 10.5 GM/DL 13.7-17.5 HEMATOCRIT (BEAKER) (test sfgw=730) 32.9 % 40.1-51.0 MEAN CORPUSCULAR VOLUME (BEAKER) (test jpal=054) 99.4 fL 79.0-92.2 MEAN CORPUSCULAR HEMOGLOBIN (BEAKER) (test 31.7 pg 25.7-32.2 wysm=336) MEAN CORPUSCULAR HEMOGLOBIN CONC (BEAKER) (test 31.9 GM/DL 32.3-36.5 vyzm=101) RED CELL DISTRIBUTION WIDTH (BEAKER) (test 18.6 % 11.6-14.4 eaqh=422) PLATELET COUNT (BEAKER) (test rahb=041) 247 K/CU MM 150-450 MEAN PLATELET VOLUME (BEAKER) (test gagl=488) 11.0 fL 9.4-12.4 NUCLEATED RED BLOOD CELLS (BEAKER) (test 0 /100 WBC 0-0 qgty=824) NEUTROPHILS RELATIVE PERCENT (BEAKER) (test 85 % rimn=853) LYMPHOCYTES RELATIVE PERCENT (BEAKER) (test 7 % actc=538) MONOCYTES RELATIVE PERCENT (BEAKER) (test 6 % lfut=768) EOSINOPHILS RELATIVE PERCENT (BEAKER) (test 1 % vkhu=018) BASOPHILS RELATIVE PERCENT (BEAKER) (test 0 % higd=994) NEUTROPHILS ABSOLUTE COUNT (BEAKER) (test 10.21 K/ L 1.78-5.38 wxal=746) LYMPHOCYTES ABSOLUTE COUNT (BEAKER) (test 0.78 K/ L 1.32-3.57 ouzd=310) MONOCYTES ABSOLUTE COUNT (BEAKER) (test 0.72 K/ L 0.30-0.82 kmym=671) EOSINOPHILS ABSOLUTE COUNT (BEAKER) (test 0.16 K/ L 0.04-0.54 ulcl=810) BASOPHILS ABSOLUTE COUNT (BEAKER) (test 0.05 K/ L 0.01-0.08 yvzu=800) IMMATURE GRANULOCYTES-RELATIVE PERCENT (BEAKER) 1 % 0-1 (test rzsf=9469) POCT-GLUCOSE [id number] 11:22:00 Test Item Value Reference Range Comments POC-GLUCOSE METER (BEAKER) 137 mg/dL 70-110 TESTED AT [address] (test itep=8394) [place] [id number] POCT-GLUCOSE [id number] 09:39:00 Test Item Value Reference Range Comments POC-GLUCOSE METER (BEAKER) 118 mg/dL 70-110 TESTED AT [address] (test qnjd=1615) [place] [id number] 07:36:00 Test Item Value Reference Range Comments PARTIAL THROMBOPLASTIN TIME (BEAKER) (test 67.9 seconds 22.5-36.0 xkmf=177) While on warfarin.COMPREHENSIVE METABOLIC [id number] 06:51:00 Test Item Value Reference Range Comments TOTAL PROTEIN (BEAKER) 6.1 gm/dL 6.0-8.3 (test zrru=664) ALBUMIN (BEAKER) (test 3.1 g/dL 3.5-5.0 fppx=4679) ALKALINE PHOSPHATASE 131 U/L 40-150 (BEAKER) (test thqf=315) BILIRUBIN TOTAL (BEAKER) 2.7 mg/dL 0.2-1.2 (test kzhk=160) SODIUM (BEAKER) (test 132 meq/L 136-145 zvbj=380) POTASSIUM (BEAKER) (test 4.9 meq/L 3.5-5.1 royk=902) CHLORIDE (BEAKER) (test 95 meq/L 98-107 nrys=492) CO2 (BEAKER) (test 25 meq/L 22-29 dtln=245) BLOOD UREA NITROGEN 59 mg/dL 7-21 (BEAKER) (test jcaq=046) CREATININE (BEAKER) (test 7.24 mg/dL 0.57-1.25 fasr=898) GLUCOSE RANDOM (BEAKER) 138 mg/dL 70-105 (test rrrd=443) CALCIUM (BEAKER) (test 9.3 mg/dL 8.4-10.2 reme=707) AST (SGOT) (BEAKER) (test 38 U/L 5-34 iiyr=577) ALT (SGPT) (BEAKER) (test 86 U/L 6-55 rmet=129) EGFR (BEAKER) (test 7 mL/min/1.73 sq m ESTIMATED GFR IS NOT onau=9542) ACCURATE CREATININE CLEARANCE IN PREDICTING GLOMERULAR FILTRATION RATE. ESTIMATED GFR IS NOT APPLICABLE FOR DIALYSIS PATIENTS. Specimen slightly [id number] 06:32:00 Test Item Value Reference Range Comments MAGNESIUM (BEAKER) (test tppk=656) 3.2 mg/dL 1.6-2.6 CBC W/PLT COUNT & AUTO [id number] 05:57:00 Test Item Value Reference Range Comments WHITE BLOOD CELL COUNT (BEAKER) (test wpwc=732) 11.3 K/ L 3.5-10.5 RED BLOOD CELL COUNT (BEAKER) (test pzaj=103) 3.34 M/ L 4.63-6.08 HEMOGLOBIN (BEAKER) (test iewr=895) 10.4 GM/DL 13.7-17.5 HEMATOCRIT (BEAKER) (test qpxz=514) 32.9 % 40.1-51.0 MEAN CORPUSCULAR VOLUME (BEAKER) (test qrmt=127) 98.5 fL 79.0-92.2 MEAN CORPUSCULAR HEMOGLOBIN (BEAKER) (test 31.1 pg 25.7-32.2 zxwp=367) MEAN CORPUSCULAR HEMOGLOBIN CONC (BEAKER) (test 31.6 GM/DL 32.3-36.5 zujd=698) RED CELL DISTRIBUTION WIDTH (BEAKER) (test 18.6 % 11.6-14.4 bqtf=761) PLATELET COUNT (BEAKER) (test eowm=678) 206 K/CU MM 150-450 MEAN PLATELET VOLUME (BEAKER) (test rxdv=100) 10.8 fL 9.4-12.4 NUCLEATED RED BLOOD CELLS (BEAKER) (test 0 /100 WBC 0-0 gpdp=866) NEUTROPHILS RELATIVE PERCENT (BEAKER) (test 85 % blqq=582) LYMPHOCYTES RELATIVE PERCENT (BEAKER) (test 6 % bbrg=760) MONOCYTES RELATIVE PERCENT (BEAKER) (test 6 % wirz=542) EOSINOPHILS RELATIVE PERCENT (BEAKER) (test 2 % sznx=783) BASOPHILS RELATIVE PERCENT (BEAKER) (test 1 % yako=129) NEUTROPHILS ABSOLUTE COUNT (BEAKER) (test 9.61 K/ L 1.78-5.38 woat=670) LYMPHOCYTES ABSOLUTE COUNT (BEAKER) (test 0.63 K/ L 1.32-3.57 uall=914) MONOCYTES ABSOLUTE COUNT (BEAKER) (test 0.72 K/ L 0.30-0.82 yobr=865) EOSINOPHILS ABSOLUTE COUNT (BEAKER) (test 0.18 K/ L 0.04-0.54 lsvm=156) BASOPHILS ABSOLUTE COUNT (BEAKER) (test 0.06 K/ L 0.01-0.08 ohjp=865) IMMATURE GRANULOCYTES-RELATIVE PERCENT (BEAKER) 1 % 0-1 (test pxei=6048) PROTHROMBIN [id number] 05:52:00 Test Item Value Reference Range Comments PROTIME (BEAKER) (test gzvk=005) 23.2 seconds 11.9-14.2 INR (BEAKER) (test gtdw=975) 2.2 <=5.9 Effective 07/29/2018: PT Reference Range ChangeNew: 11.9-14.2 Previous: 11.7- 14.7RECOMMENDED COUMADIN/WARFARIN INR THERAPY RANGESSTANDARD DOSE: 2.0-3.0 Includes: PROPHYLAXIS for venous thrombosis, systemic embolization; TREATMENT for venous thrombosis and/or pulmonary embolus.HIGH RISK: Target INR is2.5-3.5 for patients wiht mechanical heart valves.While on warfarin.POCT-GLUCOSE [id number] 21:23:00 Test Item Value Reference Range Comments POC-GLUCOSE METER (BEAKER) 156 mg/dL 70-110 TESTED AT [address] (test etcj=5937) [place] [id number] POCT-GLUCOSE [id number] 17:07:00 Test Item Value Reference Range Comments POC-GLUCOSE METER (BEAKER) 158 mg/dL 70-110 TESTED AT [address] (test dcsb=3374) [place] [address] [id number] 13:25:00 Test Item Value Reference Range Comments PARTIAL THROMBOPLASTIN TIME (BEAKER) (test 89.3 seconds 22.5-36.0 jnck=844) POCT-GLUCOSE [id number] 12:20:00 Test Item Value Reference Range Comments POC-GLUCOSE METER (BEAKER) 167 mg/dL 70-110 TESTED AT [address] (test cikb=0803) [place] [id number] POCT-GLUCOSE [id number] 07:42:00 Test Item Value Reference Range Comments POC-GLUCOSE METER (BEAKER) 132 mg/dL 70-110 TESTED AT [address] (test ridn=4498) [place] [id number] COMPREHENSIVE METABOLIC [id number] 07:04:00 Test Item Value Reference Range Comments TOTAL PROTEIN (BEAKER) 6.6 gm/dL 6.0-8.3 (test gntx=276) ALBUMIN (BEAKER) (test 3.4 g/dL 3.5-5.0 rddq=0892) ALKALINE PHOSPHATASE 131 U/L 40-150 (BEAKER) (test zkdk=755) BILIRUBIN TOTAL (BEAKER) 3.4 mg/dL 0.2-1.2 (test iulq=753) SODIUM (BEAKER) (test 131 meq/L 136-145 jgmb=364) POTASSIUM (BEAKER) (test 4.4 meq/L 3.5-5.1 pxeg=407) CHLORIDE (BEAKER) (test 95 meq/L 98-107 juub=481) CO2 (BEAKER) (test 23 meq/L 22-29 muzj=238) BLOOD UREA NITROGEN 47 mg/dL 7-21 (BEAKER) (test fgbs=362) CREATININE (BEAKER) (test 6.18 mg/dL 0.57-1.25 oekd=266) GLUCOSE RANDOM (BEAKER) 120 mg/dL 70-105 (test ljdt=612) CALCIUM (BEAKER) (test 9.4 mg/dL 8.4-10.2 fyms=461) AST (SGOT) (BEAKER) (test 40 U/L 5-34 ocdb=032) ALT (SGPT) (BEAKER) (test 101 U/L 6-55 jbvu=063) EGFR (BEAKER) (test 9 mL/min/1.73 sq m ESTIMATED GFR IS NOT layq=0477) ACCURATE CREATININE CLEARANCE IN PREDICTING GLOMERULAR FILTRATION RATE. ESTIMATED GFR IS NOT APPLICABLE FOR DIALYSIS PATIENTS. Specimen slightly [id number] 07:01:00 Test Item Value Reference Range Comments MAGNESIUM (BEAKER) (test zxkp=539) 2.8 mg/dL 1.6-2.6 PROTHROMBIN [id number] 06:40:00 Test Item Value Reference Range Comments PROTIME (BEAKER) (test ltza=595) 18.5 seconds 11.9-14.2 INR (BEAKER) (test wxwh=114) 1.6 <=5.9 Effective 07/29/2018: PT Reference Range ChangeNew: 11.9-14.2 Previous: 11.7- 14.7RECOMMENDED COUMADIN/WARFARIN INR THERAPY RANGESSTANDARD DOSE: 2.0-3.0 Includes: PROPHYLAXIS for venous thrombosis, systemic embolization; TREATMENT for venous thrombosis and/or pulmonary embolus.HIGH RISK: Target INR is2.5-3.5 for patients wiht mechanical heart valves.While on warfarin.CBC W/PLT COUNT &amp ; AUTO [id number] 06:36:00 Test Item Value Reference Range Comments WHITE BLOOD CELL COUNT (BEAKER) (test uhqh=695) 11.2 K/ L 3.5-10.5 RED BLOOD CELL COUNT (BEAKER) (test fpuz=683) 3.72 M/ L 4.63-6.08 HEMOGLOBIN (BEAKER) (test zece=105) 11.7 GM/DL 13.7-17.5 HEMATOCRIT (BEAKER) (test zluz=297) 38.3 % 40.1-51.0 MEAN CORPUSCULAR VOLUME (BEAKER) (test pelj=553) 103.0 fL 79.0-92.2 MEAN CORPUSCULAR HEMOGLOBIN (BEAKER) (test 31.5 pg 25.7-32.2 besl=483) MEAN CORPUSCULAR HEMOGLOBIN CONC (BEAKER) (test 30.5 GM/DL 32.3-36.5 omoh=645) RED CELL DISTRIBUTION WIDTH (BEAKER) (test 19.1 % 11.6-14.4 bczf=131) PLATELET COUNT (BEAKER) (test kqpl=239) 205 K/CU MM 150-450 MEAN PLATELET VOLUME (BEAKER) (test vhyq=283) 11.3 fL 9.4-12.4 NUCLEATED RED BLOOD CELLS (BEAKER) (test 0 /100 WBC 0-0 rugx=376) NEUTROPHILS RELATIVE PERCENT (BEAKER) (test 82 % mpds=546) LYMPHOCYTES RELATIVE PERCENT (BEAKER) (test 7 % tyoy=880) MONOCYTES RELATIVE PERCENT (BEAKER) (test 8 % uyir=531) EOSINOPHILS RELATIVE PERCENT (BEAKER) (test 1 % vkwt=545) BASOPHILS RELATIVE PERCENT (BEAKER) (test 1 % qxwa=869) NEUTROPHILS ABSOLUTE COUNT (BEAKER) (test 9.19 K/ L 1.78-5.38 dkjb=693) LYMPHOCYTES ABSOLUTE COUNT (BEAKER) (test 0.79 K/ L 1.32-3.57 nmfm=928) MONOCYTES ABSOLUTE COUNT (BEAKER) (test 0.86 K/ L 0.30-0.82 eukd=218) EOSINOPHILS ABSOLUTE COUNT (BEAKER) (test 0.16 K/ L 0.04-0.54 jrna=995) BASOPHILS ABSOLUTE COUNT (BEAKER) (test 0.07 K/ L 0.01-0.08 nzos=517) IMMATURE GRANULOCYTES-RELATIVE PERCENT (BEAKER) 1 % 0-1 (test nvjx=7324) POCT-GLUCOSE [id number] 22:24:00 Test Item Value Reference Range Comments POC-GLUCOSE METER (BEAKER) 152 mg/dL 70-110 TESTED AT [facility] [address] [facility] (test wiqm=8210) [facility] [id number] POCT-GLUCOSE [id number] 17:15:00 Test Item Value Reference Range Comments POC-GLUCOSE METER (BEAKER) 157 mg/dL 70-110 TESTED AT [address] (test tpaz=3428) [facility] [address] RAD, CHEST, 1 VIEW, NON [id number] 15:38:00Reason for exam:->coughShould this be performed at the bedside?->YesFINAL REPORT Portable chest. CLINICAL HISTORY: cough. COMPARISON STUDY: July 31, 2018. FINDINGS: The cardiac silhouette is enlarged. The pulmonary parenchyma demonstrates mild interstitial markings. A left jugular line remains. No pneumothorax is seen. Degenerative changes are noted. IMPRESSION: No significant change. Signed: Daniel Gibbs MDReport Verified Date/Time: 2018 15:38:51 Reading Location: [address] Ortho Consult Reading Room POCT- GLUCOSE [id number] 07:50:00 Test Item Value Reference Range Comments POC-GLUCOSE METER (BEAKER) 132 mg/dL 70-110 TESTED AT [address] (test owxb=2629) [place] [id number] COMPREHENSIVE METABOLIC [id number] 07:16:00 Test Item Value Reference Range Comments TOTAL PROTEIN (BEAKER) 6.1 gm/dL 6.0-8.3 (test fhhl=050) ALBUMIN (BEAKER) (test 3.1 g/dL 3.5-5.0 tjgt=1655) ALKALINE PHOSPHATASE 123 U/L 40-150 (BEAKER) (test lgdc=106) BILIRUBIN TOTAL (BEAKER) 3.1 mg/dL 0.2-1.2 (test iaao=808) SODIUM (BEAKER) (test 136 meq/L 136-145 lelo=726) POTASSIUM (BEAKER) (test 4.0 meq/L 3.5-5.1 swbl=210) CHLORIDE (BEAKER) (test 99 meq/L 98-107 vtdq=036) CO2 (BEAKER) (test 27 meq/L 22-29 uaid=918) BLOOD UREA NITROGEN 37 mg/dL 7-21 (BEAKER) (test jeel=850) CREATININE (BEAKER) (test 5.17 mg/dL 0.57-1.25 nick=427) GLUCOSE RANDOM (BEAKER) 155 mg/dL 70-105 (test wwup=557) CALCIUM (BEAKER) (test 9.2 mg/dL 8.4-10.2 xxqa=447) AST (SGOT) (BEAKER) (test 53 U/L 5-34 nwji=289) ALT (SGPT) (BEAKER) (test 124 U/L 6-55 kydn=756) EGFR (BEAKER) (test 11 mL/min/1.73 sq m ESTIMATED GFR IS NOT bugq=9524) ACCURATE CREATININE CLEARANCE IN PREDICTING GLOMERULAR FILTRATION RATE. ESTIMATED GFR IS NOT APPLICABLE FOR DIALYSIS PATIENTS. Specimen slightly [id number] 07:02:00 Test Item Value Reference Range Comments PHOSPHORUS (BEAKER) (test olfh=554) 4.3 mg/dL 2.3-4.7 [id number] 07:02:00 Test Item Value Reference Range Comments MAGNESIUM (BEAKER) (test cngq=375) 2.5 mg/dL 1.6-2.6 CBC W/PLT COUNT & AUTO [id number] 06:31:00 Test Item Value Reference Range Comments WHITE BLOOD CELL COUNT (BEAKER) (test sprr=551) 10.8 K/ L 3.5-10.5 RED BLOOD CELL COUNT (BEAKER) (test aold=280) 3.47 M/ L 4.63-6.08 HEMOGLOBIN (BEAKER) (test zass=388) 10.7 GM/DL 13.7-17.5 HEMATOCRIT (BEAKER) (test srjb=968) 34.7 % 40.1-51.0 MEAN CORPUSCULAR VOLUME (BEAKER) (test fjhm=881) 100.0 fL 79.0-92.2 MEAN CORPUSCULAR HEMOGLOBIN (BEAKER) (test 30.8 pg 25.7-32.2 jvng=060) MEAN CORPUSCULAR HEMOGLOBIN CONC (BEAKER) (test 30.8 GM/DL 32.3-36.5 nxjm=817) RED CELL DISTRIBUTION WIDTH (BEAKER) (test 19.4 % 11.6-14.4 nlzg=748) PLATELET COUNT (BEAKER) (test aeie=770) 179 K/CU MM 150-450 MEAN PLATELET VOLUME (BEAKER) (test weog=961) 11.0 fL 9.4-12.4 NUCLEATED RED BLOOD CELLS (BEAKER) (test 0 /100 WBC 0-0 whao=476) NEUTROPHILS RELATIVE PERCENT (BEAKER) (test 82 % egli=855) LYMPHOCYTES RELATIVE PERCENT (BEAKER) (test 6 % jroa=080) MONOCYTES RELATIVE PERCENT (BEAKER) (test 10 % zgzj=882) EOSINOPHILS RELATIVE PERCENT (BEAKER) (test 2 % xkku=744) BASOPHILS RELATIVE PERCENT (BEAKER) (test 0 % uwna=106) NEUTROPHILS ABSOLUTE COUNT (BEAKER) (test 8.79 K/ L 1.78-5.38 hdta=938) LYMPHOCYTES ABSOLUTE COUNT (BEAKER) (test 0.67 K/ L 1.32-3.57 gthd=827) MONOCYTES ABSOLUTE COUNT (BEAKER) (test 1.03 K/ L 0.30-0.82 wsfy=706) EOSINOPHILS ABSOLUTE COUNT (BEAKER) (test 0.16 K/ L 0.04-0.54 cpww=825) BASOPHILS ABSOLUTE COUNT (BEAKER) (test 0.03 K/ L 0.01-0.08 rpue=739) IMMATURE GRANULOCYTES-RELATIVE PERCENT (BEAKER) 1 % 0-1 (test caut=8885) PT/[id number] 06:22:00 Test Item Value Reference Range Comments PROTIME (BEAKER) (test jceh=810) 17.6 seconds 11.9-14.2 INR (BEAKER) (test yjul=243) 1.5 <=5.9 PARTIAL THROMBOPLASTIN TIME (BEAKER) (test 69.4 seconds 22.5-36.0 eyfi=885) Effective 07/29/2018: PT Reference Range ChangeNew: 11.9-14.2 Previous: 11.7- 14.7RECOMMENDED COUMADIN/WARFARIN INR THERAPY RANGESSTANDARD DOSE: 2.0-3.0 Includes: PROPHYLAXIS for venous thrombosis, systemic embolization; TREATMENT for venous thrombosis and/or pulmonary embolus.HIGH RISK: Target INR is2.5-3.5 for patients wiht mechanical heart valves.While on warfarin.While on warfarin.PROTHROMBIN [id number] 06:21:00 Test Item Value Reference Range Comments PROTIME (BEAKER) (test lugc=743) 17.6 seconds 11.9-14.2 INR (BEAKER) (test ojik=756) 1.5 <=5.9 Effective 07/29/2018: PT Reference Range ChangeNew: 11.9-14.2 Previous: 11.7- 14.7RECOMMENDED COUMADIN/WARFARIN INR THERAPY RANGESSTANDARD DOSE: 2.0-3.0 Includes: PROPHYLAXIS for venous thrombosis, systemic embolization; TREATMENT for venous thrombosis and/or pulmonary embolus.HIGH RISK: Target INR is2.5-3.5 for patients wiht mechanical heart valves.POCT-GLUCOSE [id number] 21:12:00 Test Item Value Reference Range Comments POC-GLUCOSE METER (BEAKER) 129 mg/dL 70-110 TESTED AT [place] [id number] [facility] (test malv=2761) [place] [id number] POCT-GLUCOSE [id number] 17:43:00 Test Item Value Reference Range Comments POC-GLUCOSE METER (BEAKER) 192 mg/dL 70-110 TESTED AT [address] (test afcb=7951) [place] [address] ANG, AV-SHUNT, CATH INTRO WITH [id number] 16:46:00Reason for exam:-> clotted AVFFINAL REPORT Left upper extremity AV fistula declot. History: Thrombosed left upper extremity AV fistula. Modality: Ultrasound and fluoroscopy Sedation: None Anesthesia: Two percent Lidocaine without epinephrine. Approach: Left upper extremity AV fistula Estimated blood loss: < 5 cc. Specimen: None. hair machine operator: Jean-Claude Jones MD. Latin Professor: MD Deshaun. Fluoroscopy Time: 12.6 min.Reference Air [...] was removed. An 8 x 4 cm [place] balloon was then used to macerate the [...] MDReportVerified Date/ Time: 08/07/2018 16:46:54 Reading Location: [place] [address] Angio Body Reading Room LUPUS ANTICOAGULANT SCREEN WITH REFLEX TO [id number] 14:41:00 Test Item Value Reference Range Comments DRVV SCREEN RATIO (BEAKER) 1.21 <1.20 (test pmxn=9741) DRVV CONFIRM RATIO (test 1.09 vvjc=2861) DRVV NORMALIZED RATIO (test 1.11 <1.20 dyrk=6796) DRVV INTERPRETATION (BEAKER) Prolonged lupus sensitive PTT (test bnrp=9235) (PTT-La) DRVV INTERPRETATION (BEAKER) Positive Hexagonal (test wqot=827412) Phospholipid DRVV INTERPRETATION (BEAKER) Positive screen for Lupus (test lqec=842365) Anticoagulant. Suggest repeat testing in 12 weeks and when patient not receiving anticoagulant therapy. PROTIME (BEAKER) (test 14.9 seconds 11.9-14.2 fjon=770) INR (BEAKER) (test tvdw=504) 1.2 <=5.9 PARTIAL THROMBOPLASTIN TIME 44.9 seconds 22.5-36.0 (BEAKER) (test zyck=177) PTT-LA (BEAKER) (test 55.1 32.0-41.8 xldh=[id number]) FJBE-ZSKIIXMRSWY-946 (BEAKER) Maynor Hayward M.D. (test vvgs=8994) (electonic signature) HEXAGONAL [id number] 13:24:00 Test Item Value Reference Range Comments HEXAGONAL PHOSPHOLIPID (BEAKER) (test ttks=4919) Positive POCT-GLUCOSE [id number] 12:57:00 Test Item Value Reference Range Comments POC-GLUCOSE METER (BEAKER) 93 mg/dL 70-110 TESTED AT [facility] [address] [facility] (test tipr=1926) [facility] [address] COMPREHENSIVE METABOLIC [id number] 12:54:00 Test Item Value Reference Range Comments TOTAL PROTEIN (BEAKER) 6.3 gm/dL 6.0-8.3 (test xsrw=084) ALBUMIN (BEAKER) (test 3.1 g/dL 3.5-5.0 rmmd=4584) ALKALINE PHOSPHATASE 128 U/L 40-150 (BEAKER) (test mtpe=637) BILIRUBIN TOTAL (BEAKER) 3.9 mg/dL 0.2-1.2 (test ocvk=824) SODIUM (BEAKER) (test 138 meq/L 136-145 dlxv=482) POTASSIUM (BEAKER) (test 3.5 meq/L 3.5-5.1 oqlj=498) CHLORIDE (BEAKER) (test 101 meq/L 98-107 wbkd=742) CO2 (BEAKER) (test 28 meq/L 22-29 likx=597) BLOOD UREA NITROGEN 22 mg/dL 7-21 (BEAKER) (test zjxf=915) CREATININE (BEAKER) (test 3.20 mg/dL 0.57-1.25 ygew=974) GLUCOSE RANDOM (BEAKER) 103 mg/dL 70-105 (test fpkt=197) CALCIUM (BEAKER) (test 9.2 mg/dL 8.4-10.2 uzeu=664) AST (SGOT) (BEAKER) (test 54 U/L 5-34 rrij=531) ALT (SGPT) (BEAKER) (test 133 U/L 6-55 zgbt=029) EGFR (BEAKER) (test 19 mL/min/1.73 sq m ESTIMATED GFR IS NOT yoiy=4777) ACCURATE CREATININE CLEARANCE IN PREDICTING GLOMERULAR FILTRATION RATE. ESTIMATED GFR IS NOT APPLICABLE FOR DIALYSIS PATIENTS. Specimen moderately [id number] 12:37:00 Test Item Value Reference Range Comments MAGNESIUM (BEAKER) (test xbsn=155) 1.8 mg/dL 1.6-2.6 POCT-GLUCOSE [id number] 11:49:00 Test Item Value Reference Range Comments POC-GLUCOSE METER (BEAKER) 86 mg/dL 70-110 TESTED AT [address] (test xdvp=5312) [facility] [address] PT/[id number] 11:48:00 Test Item Value Reference Range Comments PROTIME (BEAKER) (test onub=752) 17.4 seconds 11.9-14.2 INR (BEAKER) (test qqkz=232) 1.5 <=5.9 PARTIAL THROMBOPLASTIN TIME (BEAKER) (test 66.0 seconds 22.5-36.0 mxlg=842) Effective 07/29/2018: PT Reference Range ChangeNew: 11.9-14.2 Previous: 11.7- 14.7RECOMMENDED COUMADIN/WARFARIN INR THERAPY RANGESSTANDARD DOSE: 2.0-3.0 Includes: PROPHYLAXIS for venous thrombosis, systemic embolization; TREATMENT for venous thrombosis and/or pulmonary embolus.HIGH RISK: Target INR is2.5-3.5 for patients wiht mechanical heart valves.CBC W/PLT COUNT & AUTO [id number] 11:40:00 Test Item Value Reference Range Comments WHITE BLOOD CELL COUNT (BEAKER) (test txop=401) 11.2 K/ L 3.5-10.5 RED BLOOD CELL COUNT (BEAKER) (test avjj=389) 3.51 M/ L 4.63-6.08 HEMOGLOBIN (BEAKER) (test pdhe=420) 11.2 GM/DL 13.7-17.5 HEMATOCRIT (BEAKER) (test ksqi=643) 34.1 % 40.1-51.0 MEAN CORPUSCULAR VOLUME (BEAKER) (test dkfz=278) 97.2 fL 79.0-92.2 MEAN CORPUSCULAR HEMOGLOBIN (BEAKER) (test 31.9 pg 25.7-32.2 ypva=692) MEAN CORPUSCULAR HEMOGLOBIN CONC (BEAKER) (test 32.8 GM/DL 32.3-36.5 blso=836) RED CELL DISTRIBUTION WIDTH (BEAKER) (test 19.6 % 11.6-14.4 tbxg=078) PLATELET COUNT (BEAKER) (test mrbw=765) 138 K/CU MM 150-450 MEAN PLATELET VOLUME (BEAKER) (test sbso=049) 10.7 fL 9.4-12.4 NUCLEATED RED BLOOD CELLS (BEAKER) (test 0 /100 WBC 0-0 hocf=011) NEUTROPHILS RELATIVE PERCENT (BEAKER) (test 81 % sfhr=895) LYMPHOCYTES RELATIVE PERCENT (BEAKER) (test 7 % eyad=137) MONOCYTES RELATIVE PERCENT (BEAKER) (test 10 % btrn=729) EOSINOPHILS RELATIVE PERCENT (BEAKER) (test 2 % nkwy=043) BASOPHILS RELATIVE PERCENT (BEAKER) (test 0 % vaqw=423) NEUTROPHILS ABSOLUTE COUNT (BEAKER) (test 9.02 K/ L 1.78-5.38 gmcq=199) LYMPHOCYTES ABSOLUTE COUNT (BEAKER) (test 0.73 K/ L 1.32-3.57 tlgt=144) MONOCYTES ABSOLUTE COUNT (BEAKER) (test 1.09 K/ L 0.30-0.82 fitw=276) EOSINOPHILS ABSOLUTE COUNT (BEAKER) (test 0.21 K/ L 0.04-0.54 yfco=047) BASOPHILS ABSOLUTE COUNT (BEAKER) (test 0.03 K/ L 0.01-0.08 alwv=867) IMMATURE GRANULOCYTES-RELATIVE PERCENT (BEAKER) 1 % 0-1 (test byvo=4383) 1:1 MIXING STUDY, [id number] 11:18:00 Test Item Value Reference Range Comments PROTIME (BEAKER) (test urhg=664) 14.9 seconds 11.9-14.2 PARTIAL THROMBOPLASTIN TIME (BEAKER) (test 44.9 seconds 22.5-36.0 nkob=662) PT 1/1 MIX (BEAKER) (test ypuj=0340) 13.6 SECS 11.7-14.7 PTT 1/1 MIX (BEAKER) (test yviq=8790) 34.8 SECS 22.5-36.0 THROMBIN [id number] 10:46:00 Test Item Value Reference Range Comments THROMBIN TIME (BEAKER) (test zpdb=356) 23.0 secs 13.8-20.0 POCT-GLUCOSE [id number] 21:46:00 Test Item Value Reference Range Comments POC-GLUCOSE METER (BEAKER) 169 mg/dL 70-110 TESTED AT [facility] [address] [facility] (test qraa=6844) [facility] [address] CT, CTA, [id number] 18:58:00Addendum BeginsREPORT STATUS:A ADDENDUM: Study reviewed by radiology. Agree with the nonvascular findings as described below. 1.4 cm right upper lobe groundglass opacity with ill-defined margins may be followed with CT in 6 months. Signed: Gallo Delgado MDReport Verified Date/Time: 08/06/2018 18:58:59 Reading Location: [place] [address] Angio Body Reading RoomAddendum EndsFINAL REPORT CT [...] 45.4 degrees. The angle of delivery is THAI 5 CAU 19. The minimal and perpendicular [...] dictated regarding the non-vascular findings by the [employer] Law Clerk Radiologist. Signed: Edgar Torres Verified Date/Time : 08/06/2018 17:20:23 Reading Location: [facility] P[address], CTA [id number] 18:58:00Addendum BeginsREPORT STATUS:A ADDENDUM: Study reviewed by radiology. Agree with the nonvascular findings as described below. 1.4 cm right upper lobe groundglass opacity with ill-defined margins may be followed with CT in 6 months. Signed: Gallo Delgado Verified Date/Time: 08/06/2018 18:58:59 Reading Location: [facility] B1 P048 Angio Body Reading RoomAddendum EndsFINAL [...] 45.4 degrees. The angle of delivery is THAI 5 CAU 19. The minimal and perpendicular [...] dictated regarding the non-vascular findings by the [employer] Law Clerk Radiologist. Signed: Edgar Torres Verified Date/Time : 08/06/2018 17:20:23 Reading Location: [place] [address] Cardiology MRI POCT- GLUCOSE [id number] 12:37:00 Test Item Value Reference Range Comments POC-GLUCOSE METER (BEAKER) 204 mg/dL 70-110 TESTED AT [address] (test gmjm=4065) [facility] [address] POCT-GLUCOSE [id number] 09:10:00 Test Item Value Reference Range Comments POC-GLUCOSE METER (BEAKER) 166 mg/dL 70-110 TESTED AT [address] (test cohd=5967) [facility] [address] COMPREHENSIVE METABOLIC [id number] 02:39:00 Test Item Value Reference Range Comments TOTAL PROTEIN (BEAKER) 6.0 gm/dL 6.0-8.3 (test safo=177) ALBUMIN (BEAKER) (test 3.0 g/dL 3.5-5.0 wovl=4476) ALKALINE PHOSPHATASE 140 U/L 40-150 (BEAKER) (test wmrl=024) BILIRUBIN TOTAL (BEAKER) 4.9 mg/dL 0.2-1.2 (test znkd=703) SODIUM (BEAKER) (test 135 meq/L 136-145 nyhc=560) POTASSIUM (BEAKER) (test 3.9 meq/L 3.5-5.1 mphz=423) CHLORIDE (BEAKER) (test 100 meq/L 98-107 fmkd=832) CO2 (BEAKER) (test 25 meq/L 22-29 lany=436) BLOOD UREA NITROGEN 41 mg/dL 7-21 (BEAKER) (test oker=792) CREATININE (BEAKER) (test 5.53 mg/dL 0.57-1.25 uxzw=871) GLUCOSE RANDOM (BEAKER) 182 mg/dL 70-105 (test lbld=125) CALCIUM (BEAKER) (test 9.3 mg/dL 8.4-10.2 rjpt=664) AST (SGOT) (BEAKER) (test 104 U/L 5-34 ahkg=683) ALT (SGPT) (BEAKER) (test 171 U/L 6-55 qllg=463) EGFR (BEAKER) (test 10 mL/min/1.73 sq m ESTIMATED GFR IS NOT ysxv=7033) ACCURATE CREATININE CLEARANCE IN PREDICTING GLOMERULAR FILTRATION RATE. ESTIMATED GFR IS NOT APPLICABLE FOR DIALYSIS PATIENTS. Specimen moderately [id number] 02:32:00 Test Item Value Reference Range Comments PHOSPHORUS (BEAKER) (test lbqj=865) 4.1 mg/dL 2.3-4.7 [id number] 02:32:00 Test Item Value Reference Range Comments MAGNESIUM (BEAKER) (test oqro=663) 2.0 mg/dL 1.6-2.6 [id number] 02:21:00 Test Item Value Reference Range Comments PARTIAL THROMBOPLASTIN TIME (BEAKER) (test 66.8 seconds 22.5-36.0 omin=991) 4 hours after the start of continuous infusion and 4 hours after any rate changeWhile on warfarin.PROTHROMBIN TIME/[id number] 02:20:00 Test Item Value Reference Range Comments PROTIME (BEAKER) (test tnjf=383) 19.0 seconds 11.9-14.2 INR (BEAKER) (test cztm=233) 1.7 <=5.9 Effective 07/29/2018: PT Reference Range ChangeNew: 11.9-14.2 Previous: 11.7- 14.7RECOMMENDED COUMADIN/WARFARIN INR THERAPY RANGESSTANDARD DOSE: 2.0-3.0 Includes: PROPHYLAXIS for venous thrombosis, systemic embolization; TREATMENT for venous thrombosis and/or pulmonary embolus.HIGH RISK: Target INR is2.5-3.5 for patients wiht mechanical heart valves.4 hours after the start of continuous infusion and4 hours after any rate changeWhile on warfarin.CBC W/PLT COUNT &amp ; AUTO [id number] 02:02:00 Test Item Value Reference Range Comments WHITE BLOOD CELL COUNT (BEAKER) (test gwjt=741) 10.6 K/ L 3.5-10.5 RED BLOOD CELL COUNT (BEAKER) (test fshz=069) 3.68 M/ L 4.63-6.08 HEMOGLOBIN (BEAKER) (test tbzi=777) 11.8 GM/DL 13.7-17.5 HEMATOCRIT (BEAKER) (test puaj=764) 35.7 % 40.1-51.0 MEAN CORPUSCULAR VOLUME (BEAKER) (test rpqq=077) 97.0 fL 79.0-92.2 MEAN CORPUSCULAR HEMOGLOBIN (BEAKER) (test 32.1 pg 25.7-32.2 nsau=084) MEAN CORPUSCULAR HEMOGLOBIN CONC (BEAKER) (test 33.1 GM/DL 32.3-36.5 yqut=556) RED CELL DISTRIBUTION WIDTH (BEAKER) (test 19.9 % 11.6-14.4 hhfp=180) PLATELET COUNT (BEAKER) (test kwfq=943) 115 K/CU MM 150-450 MEAN PLATELET VOLUME (BEAKER) (test xxge=637) 11.4 fL 9.4-12.4 NUCLEATED RED BLOOD CELLS (BEAKER) (test 0 /100 WBC 0-0 awuk=657) NEUTROPHILS RELATIVE PERCENT (BEAKER) (test 80 % cdkq=112) LYMPHOCYTES RELATIVE PERCENT (BEAKER) (test 5 % pido=979) MONOCYTES RELATIVE PERCENT (BEAKER) (test 12 % nenk=898) EOSINOPHILS RELATIVE PERCENT (BEAKER) (test 2 % jqin=994) BASOPHILS RELATIVE PERCENT (BEAKER) (test 0 % ipbm=081) NEUTROPHILS ABSOLUTE COUNT (BEAKER) (test 8.48 K/ L 1.78-5.38 fwax=495) LYMPHOCYTES ABSOLUTE COUNT (BEAKER) (test 0.50 K/ L 1.32-3.57 ehkk=526) MONOCYTES ABSOLUTE COUNT (BEAKER) (test 1.31 K/ L 0.30-0.82 lego=332) EOSINOPHILS ABSOLUTE COUNT (BEAKER) (test 0.17 K/ L 0.04-0.54 ldsz=933) BASOPHILS ABSOLUTE COUNT (BEAKER) (test 0.03 K/ L 0.01-0.08 mhim=195) IMMATURE GRANULOCYTES-RELATIVE PERCENT (BEAKER) 1 % 0-1 (test zimy=8319) POCT-GLUCOSE [id number] 21:39:00 Test Item Value Reference Range Comments POC-GLUCOSE METER (BEAKER) 216 mg/dL 70-110 TESTED AT [address] (test tlhw=1925) [place] [address] POCT-GLUCOSE [id number] 21:39:00 Test Item Value Reference Range Comments POC-GLUCOSE METER (BEAKER) 140 mg/dL 70-110 TESTED AT [address] (test ggax=3515) [place] [address] PROTEIN ELECTROPHORESIS, [id number] 15:47:00 Test Item Value Reference Range Comments ALBUMIN FRACTION (BEAKER) 2.8 g/dL 3.5-5.5 (test vhci=124) ALPHA 1 FRACTION (BEAKER) 0.4 g/dL 0.2-0.4 (test vmws=495) ALPHA 2 FRACTION (BEAKER) 0.6 g/dL 0.5-0.9 (test gvam=876) BETA FRACTION (BEAKER) (test 0.4 g/dL 0.6-1.1 ldqk=472) GAMMA GLOBULIN FRACTION 1.4 g/dL 0.7-1.7 (BEAKER) (test dlkw=705) INTERPRETATION-119 (BEAKER) Albumin decreased. Alpha (test dgnt=1727) globulin-1 percentage increased. This suggests an acute phase response. TMIA-IZCUAEIFSWR-992 (BEAKER) Maynor Hayward M.D. (electonic (test ytme=8602) signature) PROTEIN TOTAL SERUM, SPEP 5.6 gm/dL 6.0-8.3 (BEAKER) (test utdl=8827) Low beta globulin content also noted.POCT-GLUCOSE [id number] 09:01:00 Test Item Value Reference Range Comments POC-GLUCOSE METER (BEAKER) 175 mg/dL 70-110 TESTED AT [facility] [address] [facility] (test gnda=5096) [facility] [address] COMPREHENSIVE METABOLIC [id number] 02:05:00 Test Item Value Reference Range Comments TOTAL PROTEIN (BEAKER) 5.7 gm/dL 6.0-8.3 (test beyl=595) ALBUMIN (BEAKER) (test 2.9 g/dL 3.5-5.0 wuls=4127) ALKALINE PHOSPHATASE 89 U/L 40-150 (BEAKER) (test kxim=058) BILIRUBIN TOTAL (BEAKER) 5.7 mg/dL 0.2-1.2 (test jdmx=983) SODIUM (BEAKER) (test 137 meq/L 136-145 obxa=072) POTASSIUM (BEAKER) (test 4.0 meq/L 3.5-5.1 bthc=814) CHLORIDE (BEAKER) (test 98 meq/L 98-107 tbsx=577) CO2 (BEAKER) (test 26 meq/L 22-29 dsmw=648) BLOOD UREA NITROGEN 66 mg/dL 7-21 (BEAKER) (test iahc=234) CREATININE (BEAKER) (test 7.46 mg/dL 0.57-1.25 zmbo=082) GLUCOSE RANDOM (BEAKER) 177 mg/dL 70-105 (test lojm=574) CALCIUM (BEAKER) (test 9.2 mg/dL 8.4-10.2 tted=418) AST (SGOT) (BEAKER) (test 66 U/L 5-34 yqdu=333) ALT (SGPT) (BEAKER) (test 194 U/L 6-55 ufvx=856) EGFR (BEAKER) (test 7 mL/min/1.73 sq m ESTIMATED GFR IS NOT lrph=2136) ACCURATE CREATININE CLEARANCE IN PREDICTING GLOMERULAR FILTRATION RATE. ESTIMATED GFR IS NOT APPLICABLE FOR DIALYSIS PATIENTS. Specimen moderately [id number] 02:00:00 Test Item Value Reference Range Comments PHOSPHORUS (BEAKER) (test agta=502) 6.7 mg/dL 2.3-4.7 [id number] 02:00:00 Test Item Value Reference Range Comments MAGNESIUM (BEAKER) (test gyoa=383) 2.3 mg/dL 1.6-2.6 CBC W/PLT COUNT & AUTO [id number] 01:50:00 Test Item Value Reference Range Comments WHITE BLOOD CELL COUNT (BEAKER) (test oakf=271) 9.6 K/ L 3.5-10.5 RED BLOOD CELL COUNT (BEAKER) (test xtnc=953) 3.78 M/ L 4.63-6.08 HEMOGLOBIN (BEAKER) (test lyap=966) 11.9 GM/DL 13.7-17.5 HEMATOCRIT (BEAKER) (test smpx=151) 37.0 % 40.1-51.0 MEAN CORPUSCULAR VOLUME (BEAKER) (test qwak=225) 97.9 fL 79.0-92.2 MEAN CORPUSCULAR HEMOGLOBIN (BEAKER) (test 31.5 pg 25.7-32.2 uwfv=681) MEAN CORPUSCULAR HEMOGLOBIN CONC (BEAKER) (test 32.2 GM/DL 32.3-36.5 tmhj=131) RED CELL DISTRIBUTION WIDTH (BEAKER) (test 19.9 % 11.6-14.4 pvhw=771) PLATELET COUNT (BEAKER) (test ssna=379) 89 K/CU MM 150-450 MEAN PLATELET VOLUME (BEAKER) (test makm=391) 12.1 fL 9.4-12.4 NUCLEATED RED BLOOD CELLS (BEAKER) (test 0 /100 WBC 0-0 akne=973) NEUTROPHILS RELATIVE PERCENT (BEAKER) (test 79 % yurx=493) LYMPHOCYTES RELATIVE PERCENT (BEAKER) (test 5 % aesm=351) MONOCYTES RELATIVE PERCENT (BEAKER) (test 13 % xekv=778) EOSINOPHILS RELATIVE PERCENT (BEAKER) (test 2 % chae=770) BASOPHILS RELATIVE PERCENT (BEAKER) (test 0 % jozp=888) NEUTROPHILS ABSOLUTE COUNT (BEAKER) (test 7.57 K/ L 1.78-5.38 mhhk=234) LYMPHOCYTES ABSOLUTE COUNT (BEAKER) (test 0.51 K/ L 1.32-3.57 qiym=680) MONOCYTES ABSOLUTE COUNT (BEAKER) (test vmkr=570) 1.24 K/ L 0.30-0.82 EOSINOPHILS ABSOLUTE COUNT (BEAKER) (test 0.16 K/ L 0.04-0.54 axmo=422) BASOPHILS ABSOLUTE COUNT (BEAKER) (test lywa=696) 0.02 K/ L 0.01-0.08 IMMATURE GRANULOCYTES-RELATIVE PERCENT (BEAKER) 1 % 0-1 (test omne=0466) [id number] 01:49:00 Test Item Value Reference Range Comments PARTIAL THROMBOPLASTIN TIME (BEAKER) (test 71.2 seconds 22.5-36.0 atrx=187) While on warfarin.PROTHROMBIN [id number] 01:48:00 Test Item Value Reference Range Comments PROTIME (BEAKER) (test koon=312) 18.6 seconds 11.9-14.2 INR (BEAKER) (test prks=261) 1.6 <=5.9 Effective 07/29/2018: PT Reference Range ChangeNew: 11.9-14.2 Previous: 11.7- 14.7RECOMMENDED COUMADIN/WARFARIN INR THERAPY RANGESSTANDARD DOSE: 2.0-3.0 Includes: PROPHYLAXIS for venous thrombosis, systemic embolization; TREATMENT for venous thrombosis and/or pulmonary embolus.HIGH RISK: Target INR is2.5-3.5 for patients wiht mechanical heart valves.While on warfarin.POCT-GLUCOSE [id number] 21:44:00 Test Item Value Reference Range Comments POC-GLUCOSE METER (BEAKER) 242 mg/dL 70-110 TESTED AT [address] (test iofm=8796) [place] [id number] 21:02:00 Test Item Value Reference Range Comments PARTIAL THROMBOPLASTIN TIME (BEAKER) (test 59.9 seconds 22.5-36.0 udei=840) POCT-GLUCOSE [id number] 16:52:00 Test Item Value Reference Range Comments POC-GLUCOSE METER (BEAKER) 130 mg/dL 70-110 TESTED AT [address] (test yvlk=9724) [facility] [id number] [place]PAR[place] [id number] 14:23:00 Test Item Value Reference Range Comments HEPARIN ANTIBODY (BEAKER) Positive-See Serotonin Release Negative (test orzi=601) Assay for Confirmation HEPARIN ANTIBODY OD (BEAKER) 0.516 <0.400 (test orqg=7113) 4T TOTAL SCORE (BEAKER) 6 (test fzyk=5359) Probability of HIT based on scoring system: 6-8=High probability; 4-5= intermediate probability; 0-3=low probabilityPERIPHERAL BLOOD SMEAR - HOLD [id number] 14:09:00 Test Item Value Reference Range Comments PERIPHERAL SMEAR SAVE (BEAKER) (test tbkh=0394) SAVE [id number] 13:57:00 Test Item Value Reference Range Comments PARTIAL THROMBOPLASTIN TIME (BEAKER) (test 50.3 seconds 22.5-36.0 wxpo=497) POCT-GLUCOSE [id number] 12:31:00 Test Item Value Reference Range Comments POC-GLUCOSE METER (BEAKER) 90 mg/dL 70-110 TESTED AT [address] (test axkh=9536) [place] [address] CARDIOLIPIN ANTIBODIES, IGG AND [id number] 10:36:00 Test Item Value Reference Range Comments ANTICARDIOLIPIN IGG ANTIBODY (BEAKER) (test < GPL <20.0 zbxi=314) ANTICARDIOLIPIN IGM ANTIBODY (BEAKER) (test 0.6 MPL <20.0 oshp=973) Anticardiolipin IgG Result Interpretation: <20.0 GPL Normal>/=20.0 GPL PositiveAnticardiolipin IgM Result Interpretation: <20.0 MPL Normal>/= 20.0 MPL [id number] 08:20:00 Test Item Value Reference Range Comments PARTIAL THROMBOPLASTIN TIME (BEAKER) (test 47.3 seconds 22.5-36.0 ibos=875) POCT-GLUCOSE [id number] 07:52:00 Test Item Value Reference Range Comments POC-GLUCOSE METER (BEAKER) 90 mg/dL 70-110 TESTED AT [address] (test ffrx=0963) [place] [address] COMPREHENSIVE METABOLIC [id number] 04:34:00 Test Item Value Reference Range Comments TOTAL PROTEIN (BEAKER) 6.1 gm/dL 6.0-8.3 (test jpjw=478) ALBUMIN (BEAKER) (test 3.0 g/dL 3.5-5.0 kyjq=4068) ALKALINE PHOSPHATASE 81 U/L 40-150 (BEAKER) (test vups=475) BILIRUBIN TOTAL (BEAKER) 6.0 mg/dL 0.2-1.2 (test gfbp=383) SODIUM (BEAKER) (test 136 meq/L 136-145 plqs=490) POTASSIUM (BEAKER) (test 4.1 meq/L 3.5-5.1 pbko=370) CHLORIDE (BEAKER) (test 98 meq/L 98-107 gahy=974) CO2 (BEAKER) (test 26 meq/L 22-29 sdsi=767) BLOOD UREA NITROGEN 54 mg/dL 7-21 (BEAKER) (test mrcp=697) CREATININE (BEAKER) (test 6.38 mg/dL 0.57-1.25 zhsf=107) GLUCOSE RANDOM (BEAKER) 123 mg/dL 70-105 (test znsq=053) CALCIUM (BEAKER) (test 9.0 mg/dL 8.4-10.2 icxh=236) AST (SGOT) (BEAKER) (test 44 U/L 5-34 bsux=104) ALT (SGPT) (BEAKER) (test 224 U/L 6-55 yzzd=266) EGFR (BEAKER) (test 9 mL/min/1.73 sq m ESTIMATED GFR IS NOT sfwr=6594) ACCURATE CREATININE CLEARANCE IN PREDICTING GLOMERULAR FILTRATION RATE. ESTIMATED GFR IS NOT APPLICABLE FOR DIALYSIS PATIENTS. Specimen moderately [id number] 04:27:00 Test Item Value Reference Range Comments MAGNESIUM (BEAKER) (test tlnr=411) 2.1 mg/dL 1.6-2.6 CBC W/PLT COUNT & AUTO [id number] 03:53:00 Test Item Value Reference Range Comments WHITE BLOOD CELL COUNT (BEAKER) (test ykmv=294) 10.5 K/ L 3.5-10.5 RED BLOOD CELL COUNT (BEAKER) (test mins=851) 3.90 M/ L 4.63-6.08 HEMOGLOBIN (BEAKER) (test whvd=902) 12.2 GM/DL 13.7-17.5 HEMATOCRIT (BEAKER) (test wevn=796) 37.0 % 40.1-51.0 MEAN CORPUSCULAR VOLUME (BEAKER) (test fzuo=580) 94.9 fL 79.0-92.2 MEAN CORPUSCULAR HEMOGLOBIN (BEAKER) (test 31.3 pg 25.7-32.2 bjio=511) MEAN CORPUSCULAR HEMOGLOBIN CONC (BEAKER) (test 33.0 GM/DL 32.3-36.5 kiqa=457) RED CELL DISTRIBUTION WIDTH (BEAKER) (test 20.5 % 11.6-14.4 gcfk=295) PLATELET COUNT (BEAKER) (test hhpt=722) 87 K/CU MM 150-450 MEAN PLATELET VOLUME (BEAKER) (test zbtl=479) 11.5 fL 9.4-12.4 NUCLEATED RED BLOOD CELLS (BEAKER) (test 0 /100 WBC 0-0 rayh=957) NEUTROPHILS RELATIVE PERCENT (BEAKER) (test 84 % kixp=998) LYMPHOCYTES RELATIVE PERCENT (BEAKER) (test 4 % bzbl=626) MONOCYTES RELATIVE PERCENT (BEAKER) (test 10 % zhlg=760) EOSINOPHILS RELATIVE PERCENT (BEAKER) (test 1 % uzde=605) BASOPHILS RELATIVE PERCENT (BEAKER) (test 0 % ores=928) NEUTROPHILS ABSOLUTE COUNT (BEAKER) (test 8.79 K/ L 1.78-5.38 kibg=656) LYMPHOCYTES ABSOLUTE COUNT (BEAKER) (test 0.44 K/ L 1.32-3.57 poux=441) MONOCYTES ABSOLUTE COUNT (BEAKER) (test ttue=092) 1.03 K/ L 0.30-0.82 EOSINOPHILS ABSOLUTE COUNT (BEAKER) (test 0.11 K/ L 0.04-0.54 wpol=929) BASOPHILS ABSOLUTE COUNT (BEAKER) (test dmxm=591) 0.01 K/ L 0.01-0.08 IMMATURE GRANULOCYTES-RELATIVE PERCENT (BEAKER) 1 % 0-1 (test ulek=3631) [id number] 03:52:00 Test Item Value Reference Range Comments PARTIAL THROMBOPLASTIN TIME (BEAKER) (test 56.9 seconds 22.5-36.0 hvnz=097) 4 hours after the start of continuous infusion and 4 hours after any rate changeWhile on warfarin.PROTHROMBIN TIME/[id number] 03:51:00 Test Item Value Reference Range Comments PROTIME (BEAKER) (test fojr=229) 17.2 seconds 11.9-14.2 INR (BEAKER) (test tnzc=410) 1.5 <=5.9 Effective 07/29/2018: PT Reference Range ChangeNew: 11.9-14.2 Previous: 11.7- 14.7RECOMMENDED COUMADIN/WARFARIN INR THERAPY RANGESSTANDARD DOSE: 2.0-3.0 Includes: PROPHYLAXIS for venous thrombosis, systemic embolization; TREATMENT for venous thrombosis and/or pulmonary embolus.HIGH RISK: Target INR is2.5-3.5 for patients wiht mechanical heart valves.4 hours after the start of continuous infusion and4 hours after any rate changeWhile on warfarin.POCT-GLUCOSE [id number] 23:01:00 Test Item Value Reference Range Comments POC-GLUCOSE METER (BEAKER) 147 mg/dL 70-110 TESTED AT [facility] [address] [facility] (test auez=2700) [facility] [address] [id number] 21:35:00 Test Item Value Reference Range Comments PARTIAL THROMBOPLASTIN TIME (BEAKER) (test 33.6 seconds 22.5-36.0 ppqu=129) BLOOD [id number] 20:01:00 Test Item Value Reference Range Comments CULTURE (BEAKER) (test cebi=8380) No growth in 5 days PERIPHERAL BLOOD SMEAR - PATHOLOGIST [id number] 17:51:00 Test Item Value Reference Range Comments RBC MORPHOLOGY (BEAKER) Hypochromic, macrocytic (test ujab=4491) anemia with mild anisopoikilocytosis, including echinocytes and occasional elliptocytes. Rare schistocytes. Increased polychromasia. WBC MORPHOLOGY (BEAKER) Increased. Primarily (test gcri=3552) comprised by neutrophils, few with toxic granulation features. PLT MORPHOLOGY (BEAKER) Decrease with normal (test vmuo=9034) granular morphology. Occasional large and rare giant forms. No significant platelet aggregates/clumping identified. [id number] Jon Roger MD (BEAKER) (test uaan=6201) (electronic signature) [id number] 16:42:00 Test Item Value Reference Range Comments FERRITIN (BEAKER) (test kqnf=937) 3900 ng/mL 5-275 POCT-GLUCOSE [id number] 16:28:00 Test Item Value Reference Range Comments POC-GLUCOSE METER (BEAKER) 100 mg/dL 70-110 TESTED AT [address] (test ljrl=5866) [facility] [address] VITAMIN B12 AND [id number] 15:22:00 Test Item Value Reference Range Comments VITAMIN B12 (BEAKER) (test rgzi=095) > pg/mL 213-816 FOLATE (BEAKER) (test svql=539) 7.7 ng/mL >=7.0 IMMUNOGLOBULIN G (IGG)2018-08-03 14:38:00 Test Item Value Reference Range Comments IMMUNOGLOBULIN G (IGG) (BEAKER) (test zctv=597) 1163 mg/dL 540-1,822 IMMUNOGLOBULIN M (IGM)2018-08-03 14:38:00 Test Item Value Reference Range Comments IMMUNOGLOBULIN M (IGM) (BEAKER) (test amsw=961) 86 mg/dL 22-293 IMMUNOGLOBULIN A (IGA)2018-08-03 14:38:00 Test Item Value Reference Range Comments IMMUNOGLOBULIN A (IGA) (BEAKER) (test tmup=760) 222 mg/dL 63-484 IRON, TIBC, % SAT. (WITHOUT FERRITIN)2018-08-03 14:38:00 Test Item Value Reference Range Comments IRON (BEAKER) (test rxln=390) 29.0 ug/dL 40.0-160.0 TOTAL IRON BINDING CAPACITY (BEAKER) (test 186 ug/dL 250-450 qwpl=398) IRON % SATURATION (2) (BEAKER) (test ykzk=6842) 16 % 20-55 POCT-GLUCOSE [id number] 12:40:00 Test Item Value Reference Range Comments POC-GLUCOSE METER (BEAKER) 118 mg/dL 70-110 TESTED AT [address] (test jrwc=5893) [facility] [address] CBC W/PLT COUNT & AUTO [id number] 11:38:00 Test Item Value Reference Range Comments WHITE BLOOD CELL COUNT (BEAKER) (test lnch=212) 12.6 K/ L 3.5-10.5 RED BLOOD CELL COUNT (BEAKER) (test vucv=948) 3.87 M/ L 4.63-6.08 HEMOGLOBIN (BEAKER) (test hjgz=566) 12.4 GM/DL 13.7-17.5 HEMATOCRIT (BEAKER) (test apgl=992) 36.5 % 40.1-51.0 MEAN CORPUSCULAR VOLUME (BEAKER) (test yzkp=507) 94.3 fL 79.0-92.2 MEAN CORPUSCULAR HEMOGLOBIN (BEAKER) (test 32.0 pg 25.7-32.2 wqfm=816) MEAN CORPUSCULAR HEMOGLOBIN CONC (BEAKER) (test 34.0 GM/DL 32.3-36.5 mnvi=384) RED CELL DISTRIBUTION WIDTH (BEAKER) (test 20.3 % 11.6-14.4 arlt=069) PLATELET COUNT (BEAKER) (test nmck=450) 97 K/CU MM 150-450 MEAN PLATELET VOLUME (BEAKER) (test qhih=713) 11.5 fL 9.4-12.4 NUCLEATED RED BLOOD CELLS (BEAKER) (test 0 /100 WBC 0-0 fjjh=788) NEUTROPHILS RELATIVE PERCENT (BEAKER) (test 83 % ulbg=158) LYMPHOCYTES RELATIVE PERCENT (BEAKER) (test 5 % rizf=595) MONOCYTES RELATIVE PERCENT (BEAKER) (test 10 % zhkt=765) EOSINOPHILS RELATIVE PERCENT (BEAKER) (test 1 % wqtx=983) BASOPHILS RELATIVE PERCENT (BEAKER) (test 0 % seze=892) NEUTROPHILS ABSOLUTE COUNT (BEAKER) (test 10.45 K/ L 1.78-5.38 vtpr=958) LYMPHOCYTES ABSOLUTE COUNT (BEAKER) (test 0.63 K/ L 1.32-3.57 kzaj=970) MONOCYTES ABSOLUTE COUNT (BEAKER) (test cpys=685) 1.21 K/ L 0.30-0.82 EOSINOPHILS ABSOLUTE COUNT (BEAKER) (test 0.18 K/ L 0.04-0.54 hubf=647) BASOPHILS ABSOLUTE COUNT (BEAKER) (test xvvd=910) 0.01 K/ L 0.01-0.08 IMMATURE GRANULOCYTES-RELATIVE PERCENT (BEAKER) 1 % 0-1 (test unoz=2572) [id number] 09:34:00 Test Item Value Reference Range Comments PARTIAL THROMBOPLASTIN TIME (BEAKER) (test 56.9 seconds 22.5-36.0 wyzl=097) POCT-GLUCOSE [id number] 08:07:00 Test Item Value Reference Range Comments POC-GLUCOSE METER (BEAKER) 117 mg/dL 70-110 TESTED AT [facility] [address] (test eldg=1127) [facility] [address] COMPREHENSIVE METABOLIC [id number] 03:40:00 Test Item Value Reference Range Comments TOTAL PROTEIN (BEAKER) 6.0 gm/dL 6.0-8.3 (test wwiu=591) ALBUMIN (BEAKER) (test 3.1 g/dL 3.5-5.0 gblm=6317) ALKALINE PHOSPHATASE 87 U/L 40-150 (BEAKER) (test smfr=513) BILIRUBIN TOTAL (BEAKER) 5.1 mg/dL 0.2-1.2 (test tseu=448) SODIUM (BEAKER) (test 132 meq/L 136-145 xzuv=001) POTASSIUM (BEAKER) (test 4.8 meq/L 3.5-5.1 szdl=589) CHLORIDE (BEAKER) (test 95 meq/L 98-107 qfct=402) CO2 (BEAKER) (test 21 meq/L 22-29 ajim=185) BLOOD UREA NITROGEN 88 mg/dL 7-21 (BEAKER) (test bphn=146) CREATININE (BEAKER) (test 8.78 mg/dL 0.57-1.25 pklt=637) GLUCOSE RANDOM (BEAKER) 154 mg/dL 70-105 (test dann=565) CALCIUM (BEAKER) (test 9.2 mg/dL 8.4-10.2 usit=660) AST (SGOT) (BEAKER) (test 78 U/L 5-34 uazq=558) ALT (SGPT) (BEAKER) (test 320 U/L 6-55 lspl=608) EGFR (BEAKER) (test 6 mL/min/1.73 sq m ESTIMATED GFR IS NOT mupk=8257) ACCURATE CREATININE CLEARANCE IN PREDICTING GLOMERULAR FILTRATION RATE. ESTIMATED GFR IS NOT APPLICABLE FOR DIALYSIS PATIENTS. Specimen moderately [id number] 03:26:00 Test Item Value Reference Range Comments PHOSPHORUS (BEAKER) (test vgdf=053) 9.7 mg/dL 2.3-4.7 PROTHROMBIN [id number] 03:20:00 Test Item Value Reference Range Comments PROTIME (BEAKER) (test hqpp=326) 15.3 seconds 11.9-14.2 INR (BEAKER) (test lzex=381) 1.3 <=5.9 Effective 07/29/2018: PT Reference Range ChangeNew: 11.9-14.2 Previous: 11.7- 14.7RECOMMENDED COUMADIN/WARFARIN INR THERAPY RANGESSTANDARD DOSE: 2.0-3.0 Includes: PROPHYLAXIS for venous thrombosis, systemic embolization; TREATMENT for venous thrombosis and/or pulmonary embolus.HIGH RISK: Target INR is2.5-3.5 for patients wiht mechanical heart valves.While on warfarin.[id number] 02:42:00 Test Item Value Reference Range Comments MAGNESIUM (BEAKER) (test oemm=194) 2.6 mg/dL 1.6-2.6 [id number] 02:37:00 Test Item Value Reference Range Comments PARTIAL THROMBOPLASTIN TIME (BEAKER) (test 59.7 seconds 22.5-36.0 zmiv=828) POCT-GLUCOSE [id number] 21:25:00 Test Item Value Reference Range Comments POC-GLUCOSE METER (BEAKER) 153 mg/dL 70-110 TESTED AT [address] (test wkpc=3488) [place] [address] POCT-GLUCOSE [id number] 18:23:00 Test Item Value Reference Range Comments POC-GLUCOSE METER (BEAKER) 179 mg/dL 70-110 TESTED AT [address] (test ljgp=1880) [place] [address] POCT-GLUCOSE [id number] 14:45:00 Test Item Value Reference Range Comments POC-GLUCOSE METER (BEAKER) 198 mg/dL 70-110 TESTED AT [address] (test rsfm=8484) [place] [id number] POCT-GLUCOSE [id number] 09:20:00 Test Item Value Reference Range Comments POC-GLUCOSE METER (BEAKER) 196 mg/dL 70-110 TESTED AT [address] (test plyv=4668) [place] [address] CBC W/PLT COUNT & AUTO [id number] 05:23:00 Test Item Value Reference Range Comments WHITE BLOOD CELL COUNT (BEAKER) (test chfu=285) 13.2 K/ L 3.5-10.5 RED BLOOD CELL COUNT (BEAKER) (test owid=252) 4.01 M/ L 4.63-6.08 HEMOGLOBIN (BEAKER) (test jegk=996) 12.6 GM/DL 13.7-17.5 HEMATOCRIT (BEAKER) (test jque=715) 39.0 % 40.1-51.0 MEAN CORPUSCULAR VOLUME (BEAKER) (test xsnz=902) 97.3 fL 79.0-92.2 MEAN CORPUSCULAR HEMOGLOBIN (BEAKER) (test 31.4 pg 25.7-32.2 csri=904) MEAN CORPUSCULAR HEMOGLOBIN CONC (BEAKER) (test 32.3 GM/DL 32.3-36.5 cueu=493) RED CELL DISTRIBUTION WIDTH (BEAKER) (test 20.0 % 11.6-14.4 gguq=267) PLATELET COUNT (BEAKER) (test opow=984) 112 K/CU MM 150-450 MEAN PLATELET VOLUME (BEAKER) (test hkhx=078) 11.9 fL 9.4-12.4 NUCLEATED RED BLOOD CELLS (BEAKER) (test 0 /100 WBC 0-0 llgl=827) NEUTROPHILS RELATIVE PERCENT (BEAKER) (test 84 % wvcm=400) LYMPHOCYTES RELATIVE PERCENT (BEAKER) (test 4 % jxtr=002) MONOCYTES RELATIVE PERCENT (BEAKER) (test 10 % bwvc=999) EOSINOPHILS RELATIVE PERCENT (BEAKER) (test 1 % jcya=559) BASOPHILS RELATIVE PERCENT (BEAKER) (test 0 % pwcs=007) NEUTROPHILS ABSOLUTE COUNT (BEAKER) (test 11.13 K/ L 1.78-5.38 qjxz=235) LYMPHOCYTES ABSOLUTE COUNT (BEAKER) (test 0.55 K/ L 1.32-3.57 kwxl=481) MONOCYTES ABSOLUTE COUNT (BEAKER) (test 1.27 K/ L 0.30-0.82 hddc=318) EOSINOPHILS ABSOLUTE COUNT (BEAKER) (test 0.10 K/ L 0.04-0.54 vywp=813) BASOPHILS ABSOLUTE COUNT (BEAKER) (test 0.02 K/ L 0.01-0.08 exkf=953) IMMATURE GRANULOCYTES-RELATIVE PERCENT (BEAKER) 1 % 0-1 (test nsdk=2152) [id number] 05:14:00 Test Item Value Reference Range Comments PHOSPHORUS (BEAKER) (test uxjd=966) 9.0 mg/dL 2.3-4.7 COMPREHENSIVE METABOLIC [id number] 05:11:00 Test Item Value Reference Range Comments TOTAL PROTEIN (BEAKER) 6.1 gm/dL 6.0-8.3 (test ldjp=800) ALBUMIN (BEAKER) (test 3.2 g/dL 3.5-5.0 jyqt=4660) ALKALINE PHOSPHATASE 74 U/L 40-150 (BEAKER) (test cqhb=916) BILIRUBIN TOTAL (BEAKER) 4.8 mg/dL 0.2-1.2 (test zxrb=331) SODIUM (BEAKER) (test 134 meq/L 136-145 skao=377) POTASSIUM (BEAKER) (test 4.6 meq/L 3.5-5.1 igho=580) CHLORIDE (BEAKER) (test 98 meq/L 98-107 mgvf=373) CO2 (BEAKER) (test 21 meq/L 22-29 ghds=250) BLOOD UREA NITROGEN 72 mg/dL 7-21 (BEAKER) (test grmc=207) CREATININE (BEAKER) (test 8.05 mg/dL 0.57-1.25 qniu=561) GLUCOSE RANDOM (BEAKER) 176 mg/dL 70-105 (test sypy=849) CALCIUM (BEAKER) (test 9.4 mg/dL 8.4-10.2 duck=430) AST (SGOT) (BEAKER) (test 103 U/L 5-34 vokz=413) ALT (SGPT) (BEAKER) (test 471 U/L 6-55 hovv=634) EGFR (BEAKER) (test 7 mL/min/1.73 sq m ESTIMATED GFR IS NOT rnqo=7652) ACCURATE CREATININE CLEARANCE IN PREDICTING GLOMERULAR FILTRATION RATE. ESTIMATED GFR IS NOT APPLICABLE FOR DIALYSIS PATIENTS. Specimen moderately [id number] 05:09:00 Test Item Value Reference Range Comments MAGNESIUM (BEAKER) (test bluz=061) 2.4 mg/dL 1.6-2.6 [id number] 05:04:00 Test Item Value Reference Range Comments PARTIAL THROMBOPLASTIN TIME (BEAKER) (test 68.6 seconds 22.5-36.0 untt=021) While on warfarin.PROTHROMBIN TIME/[id number] 05:03:00 Test Item Value Reference Range Comments PROTIME (BEAKER) (test qbhb=911) 16.5 seconds 11.9-14.2 INR (BEAKER) (test hwnn=089) 1.4 <=5.9 Effective 07/29/2018: PT Reference Range ChangeNew: 11.9-14.2 Previous: 11.7- 14.7RECOMMENDED COUMADIN/WARFARIN INR THERAPY RANGESSTANDARD DOSE: 2.0-3.0 Includes: PROPHYLAXIS for venous thrombosis, systemic embolization; TREATMENT for venous thrombosis and/or pulmonary embolus.HIGH RISK: Target INR is2.5-3.5 for patients wiht mechanical heart valves.While on warfarin.POCT-GLUCOSE [id number] 17:50:00 Test Item Value Reference Range Comments POC-GLUCOSE METER (BEAKER) 202 mg/dL 70-110 TESTED AT [address] (test ehfr=8783) [place] [id number] POCT-GLUCOSE [id number] 11:57:00 Test Item Value Reference Range Comments POC-GLUCOSE METER (BEAKER) 144 mg/dL 70-110 TESTED AT [address] (test rjar=1695) [place] [id number] POCT-GLUCOSE [id number] 07:43:00 Test Item Value Reference Range Comments POC-GLUCOSE METER (BEAKER) 143 mg/dL 70-110 TESTED AT [address] (test oteu=1116) [facility] [address] COMPREHENSIVE METABOLIC [id number] 06:25:00 Test Item Value Reference Range Comments TOTAL PROTEIN (BEAKER) 5.8 gm/dL 6.0-8.3 (test igza=777) ALBUMIN (BEAKER) (test 3.1 g/dL 3.5-5.0 ccuf=8479) ALKALINE PHOSPHATASE 73 U/L 40-150 (BEAKER) (test cdve=861) BILIRUBIN TOTAL (BEAKER) 3.9 mg/dL 0.2-1.2 (test yuji=935) SODIUM (BEAKER) (test 139 meq/L 136-145 kaof=810) POTASSIUM (BEAKER) (test 4.5 meq/L 3.5-5.1 ctlk=586) CHLORIDE (BEAKER) (test 102 meq/L 98-107 eapj=247) CO2 (BEAKER) (test 23 meq/L 22-29 atjc=249) BLOOD UREA NITROGEN 54 mg/dL 7-21 (BEAKER) (test jmvp=265) CREATININE (BEAKER) (test 6.73 mg/dL 0.57-1.25 futr=427) GLUCOSE RANDOM (BEAKER) 134 mg/dL 70-105 (test menz=023) CALCIUM (BEAKER) (test 9.3 mg/dL 8.4-10.2 jjov=459) AST (SGOT) (BEAKER) (test 140 U/L 5-34 nmah=713) ALT (SGPT) (BEAKER) (test 598 U/L 6-55 dtrf=088) EGFR (BEAKER) (test 8 mL/min/1.73 sq m ESTIMATED GFR IS NOT bulg=6850) ACCURATE CREATININE CLEARANCE IN PREDICTING GLOMERULAR FILTRATION RATE. ESTIMATED GFR IS NOT APPLICABLE FOR DIALYSIS PATIENTS. Specimen slightly ictericHEPATIC FUNCTION [id number] 06:15:00 Test Item Value Reference Range Comments TOTAL PROTEIN (BEAKER) (test qbox=174) 5.8 gm/dL 6.0-8.3 ALBUMIN (BEAKER) (test mgsm=6219) 3.1 g/dL 3.5-5.0 BILIRUBIN TOTAL (BEAKER) (test ttah=094) 3.9 mg/dL 0.2-1.2 BILIRUBIN DIRECT (BEAKER) (test otoc=235) 2.4 mg/dL 0.1-0.5 ALKALINE PHOSPHATASE (BEAKER) (test zmqv=041) 73 U/L 40-150 AST (SGOT) (BEAKER) (test kafl=504) 140 U/L 5-34 ALT (SGPT) (BEAKER) (test mebq=793) 598 U/L 6-55 Specimen slightly ictericCBC W/PLT COUNT & AUTO [id number] 06:01 :00 Test Item Value Reference Range Comments WHITE BLOOD CELL COUNT (BEAKER) (test vsad=988) 12.1 K/ L 3.5-10.5 RED BLOOD CELL COUNT (BEAKER) (test efkc=325) 4.15 M/ L 4.63-6.08 HEMOGLOBIN (BEAKER) (test aylx=746) 12.9 GM/DL 13.7-17.5 HEMATOCRIT (BEAKER) (test agyy=286) 40.9 % 40.1-51.0 MEAN CORPUSCULAR VOLUME (BEAKER) (test lblx=592) 98.6 fL 79.0-92.2 MEAN CORPUSCULAR HEMOGLOBIN (BEAKER) (test 31.1 pg 25.7-32.2 dbvp=248) MEAN CORPUSCULAR HEMOGLOBIN CONC (BEAKER) (test 31.5 GM/DL 32.3-36.5 wsgg=707) RED CELL DISTRIBUTION WIDTH (BEAKER) (test 20.1 % 11.6-14.4 stgt=737) PLATELET COUNT (BEAKER) (test mejs=082) 105 K/CU MM 150-450 MEAN PLATELET VOLUME (BEAKER) (test vsep=170) 11.2 fL 9.4-12.4 NUCLEATED RED BLOOD CELLS (BEAKER) (test 1 /100 WBC 0-0 vabx=239) NEUTROPHILS RELATIVE PERCENT (BEAKER) (test 85 % mfxr=053) LYMPHOCYTES RELATIVE PERCENT (BEAKER) (test 4 % fivr=813) MONOCYTES RELATIVE PERCENT (BEAKER) (test 9 % dsyz=847) EOSINOPHILS RELATIVE PERCENT (BEAKER) (test 1 % wxeb=044) BASOPHILS RELATIVE PERCENT (BEAKER) (test 0 % hdux=196) NEUTROPHILS ABSOLUTE COUNT (BEAKER) (test 10.25 K/ L 1.78-5.38 tgtu=080) LYMPHOCYTES ABSOLUTE COUNT (BEAKER) (test 0.46 K/ L 1.32-3.57 irmx=413) MONOCYTES ABSOLUTE COUNT (BEAKER) (test 1.13 K/ L 0.30-0.82 bvsy=769) EOSINOPHILS ABSOLUTE COUNT (BEAKER) (test 0.10 K/ L 0.04-0.54 jnat=375) BASOPHILS ABSOLUTE COUNT (BEAKER) (test 0.03 K/ L 0.01-0.08 oncm=062) IMMATURE GRANULOCYTES-RELATIVE PERCENT (BEAKER) 1 % 0-1 (test kmcb=7137) [id number] 06:00:00 Test Item Value Reference Range Comments PARTIAL THROMBOPLASTIN TIME (BEAKER) (test 71.3 seconds 22.5-36.0 yigq=313) While on warfarin.PROTHROMBIN TIME/[id number] 05:59:00 Test Item Value Reference Range Comments PROTIME (BEAKER) (test mykk=372) 18.5 seconds 11.9-14.2 INR (BEAKER) (test tfvd=991) 1.6 <=5.9 Effective 07/29/2018: PT Reference Range ChangeNew: 11.9-14.2 Previous: 11.7- 14.7RECOMMENDED COUMADIN/WARFARIN INR THERAPY RANGESSTANDARD DOSE: 2.0-3.0 Includes: PROPHYLAXIS for venous thrombosis, systemic embolization; TREATMENT for venous thrombosis and/or pulmonary embolus.HIGH RISK: Target INR is2.5-3.5 for patients wiht mechanical heart valves.While on warfarin.BLOOD [id number] 02:00:00 Test Item Value Reference Range Comments CULTURE (BEAKER) (test qolp=2496) No growth in 5 days [id number] 00:14:00 Test Item Value Reference Range Comments PARTIAL THROMBOPLASTIN TIME (BEAKER) (test 90.2 seconds 22.5-36.0 gzof=158) POCT-GLUCOSE [id number] 23:48:00 Test Item Value Reference Range Comments POC-GLUCOSE METER (BEAKER) 130 mg/dL 70-110 TESTED AT [place] [id number] [facility] (test risz=3729) [facility] [address] POCT-GLUCOSE [id number] 18:15:00 Test Item Value Reference Range Comments POC-GLUCOSE METER (BEAKER) 122 mg/dL 70-110 TESTED AT [address] (test zxwb=8775) [facility] [address] [id number] 17:13:00 Test Item Value Reference Range Comments PARTIAL THROMBOPLASTIN TIME (BEAKER) (test 110.6 seconds 22.5-36.0 anrr=028) RAD, CHEST, 1 VIEW, NON [id number] 15:38:00Reason for exam:->Central line placementShould this be [...] MDReport Verified Date/Time: 07/31/2018 15:38:10 Reading Location: [facility] C013W Consult Reading Room [id number] 11:49:00 Test Item Value Reference Range Comments PARTIAL THROMBOPLASTIN TIME (BEAKER) (test 88.8 seconds 22.5-36.0 uizo=118) POCT-GLUCOSE [id number] 11:46:00 Test Item Value Reference Range Comments POC-GLUCOSE METER (BEAKER) 145 mg/dL 70-110 TESTED AT [address] (test qznh=6002) [facility] [address] CT, BRAIN, WITHOUT [id number] 10:24:00FINAL REPORT CT Head without contrast CLINICAL [...] Verified Date/Time: 07/31/2018 10 :24:48 Reading Location: [facility] C013V Neuro Reading Room [id number] 10:15:00 Test Item Value Reference Range Comments AMMONIA (BEAKER) (test ydmo=101) 46 mol/L 18-72 BLOOD GAS, [id number] 08:44:00 Test Item Value Reference Range Comments PH ARTERIAL (BEAKER) (test obak=681) 7.37 7.35-7.45 PCO2 ARTERIAL (BEAKER) (test fpuc=378) 44 mmHg 35-45 PO2 ARTERIAL (BEAKER) (test dcpl=120) 229 mmHg 80-90 O2 SATURATION ARTERIAL (BEAKER) (test cchq=335) 99.5 % 96.0-97.0 HCO3 ARTERIAL (BEAKER) (test lves=023) 25 mmol/L 21-29 BASE EXCESS ARTERIAL (BEAKER) (test wvoq=896) -0.7 mmol/L -2.0-3.0 PATIENT TEMPERATURE (BEAKER) (test ravw=7534) 37.0 C FIO2 (BEAKER) (test aaia=1693) 21.0 % POCT-GLUCOSE [id number] 08:22:00 Test Item Value Reference Range Comments POC-GLUCOSE METER (BEAKER) 170 mg/dL 70-110 TESTED AT [address] (test draq=6978) [facility] [address] POCT-GLUCOSE [id number] 05:39:00 Test Item Value Reference Range Comments POC-GLUCOSE METER (BEAKER) 163 mg/dL 70-110 TESTED AT [address] (test sevw=8290) [facility] [address] CBC W/PLT COUNT & AUTO [id number] 05:18:00 Test Item Value Reference Range Comments WHITE BLOOD CELL COUNT (BEAKER) (test suov=072) 11.9 K/ L 3.5-10.5 RED BLOOD CELL COUNT (BEAKER) (test acbf=018) 3.71 M/ L 4.63-6.08 HEMOGLOBIN (BEAKER) (test krmy=876) 11.4 GM/DL 13.7-17.5 HEMATOCRIT (BEAKER) (test fhse=456) 35.1 % 40.1-51.0 MEAN CORPUSCULAR VOLUME (BEAKER) (test lsud=748) 94.6 fL 79.0-92.2 MEAN CORPUSCULAR HEMOGLOBIN (BEAKER) (test 30.7 pg 25.7-32.2 daof=195) MEAN CORPUSCULAR HEMOGLOBIN CONC (BEAKER) (test 32.5 GM/DL 32.3-36.5 boha=083) RED CELL DISTRIBUTION WIDTH (BEAKER) (test 18.1 % 11.6-14.4 cwun=749) PLATELET COUNT (BEAKER) (test eilv=262) 112 K/CU MM 150-450 MEAN PLATELET VOLUME (BEAKER) (test pnyh=861) 10.8 fL 9.4-12.4 NUCLEATED RED BLOOD CELLS (BEAKER) (test 1 /100 WBC 0-0 mdyp=954) NEUTROPHILS RELATIVE PERCENT (BEAKER) (test 81 % pwut=122) LYMPHOCYTES RELATIVE PERCENT (BEAKER) (test 7 % aawl=242) MONOCYTES RELATIVE PERCENT (BEAKER) (test 9 % otyp=371) EOSINOPHILS RELATIVE PERCENT (BEAKER) (test 1 % evpa=771) BASOPHILS RELATIVE PERCENT (BEAKER) (test 0 % jfmw=584) NEUTROPHILS ABSOLUTE COUNT (BEAKER) (test 9.72 K/ L 1.78-5.38 loqk=884) LYMPHOCYTES ABSOLUTE COUNT (BEAKER) (test 0.86 K/ L 1.32-3.57 desl=341) MONOCYTES ABSOLUTE COUNT (BEAKER) (test 1.09 K/ L 0.30-0.82 izae=332) EOSINOPHILS ABSOLUTE COUNT (BEAKER) (test 0.09 K/ L 0.04-0.54 qyyl=057) BASOPHILS ABSOLUTE COUNT (BEAKER) (test 0.01 K/ L 0.01-0.08 qret=442) IMMATURE GRANULOCYTES-RELATIVE PERCENT (BEAKER) 1 % 0-1 (test kqce=9105) [id number] 05:12:00 Test Item Value Reference Range Comments PHOSPHORUS (BEAKER) (test 10.1 mg/dL 2.3-4.7 Specimen slightly hemolyzed ioco=354) COMPREHENSIVE METABOLIC [id number] 05:12:00 Test Item Value Reference Range Comments TOTAL PROTEIN (BEAKER) 5.4 gm/dL 6.0-8.3 Specimen slightly (test ciil=164) hemolyzed ALBUMIN (BEAKER) (test 3.0 g/dL 3.5-5.0 Specimen slightly gfkn=4524) hemolyzed ALKALINE PHOSPHATASE 66 U/L 40-150 (BEAKER) (test ornp=448) BILIRUBIN TOTAL (BEAKER) 3.6 mg/dL 0.2-1.2 Specimen slightly (test vqkp=691) hemolyzed SODIUM (BEAKER) (test 133 meq/L 136-145 pecx=775) POTASSIUM (BEAKER) (test 4.0 meq/L 3.5-5.1 Specimen slightly pspj=633) hemolyzed CHLORIDE (BEAKER) (test 95 meq/L 98-107 hodr=327) CO2 (BEAKER) (test 21 meq/L 22-29 ienz=254) BLOOD UREA NITROGEN 86 mg/dL 7-21 (BEAKER) (test hcnm=510) CREATININE (BEAKER) (test 8.92 mg/dL 0.57-1.25 Specimen slightly dclf=419) hemolyzed GLUCOSE RANDOM (BEAKER) 152 mg/dL 70-105 (test igah=069) CALCIUM (BEAKER) (test 9.2 mg/dL 8.4-10.2 unyq=562) AST (SGOT) (BEAKER) (test 182 U/L 5-34 Specimen slightly eatj=408) hemolyzed ALT (SGPT) (BEAKER) (test 694 U/L 6-55 Specimen slightly kxic=382) hemolyzed EGFR (BEAKER) (test 6 mL/min/1.73 sq m ESTIMATED GFR IS NOT vfcl=9329) ACCURATE CREATININE CLEARANCE IN PREDICTING GLOMERULAR FILTRATION RATE. ESTIMATED GFR IS NOT APPLICABLE FOR DIALYSIS PATIENTS. Specimen slightly [id number] 05:08:00 Test Item Value Reference Range Comments MAGNESIUM (BEAKER) (test 2.7 mg/dL 1.6-2.6 Specimen slightly hemolyzed eaan=812) [id number] 04:52:00 Test Item Value Reference Range Comments PARTIAL THROMBOPLASTIN TIME (BEAKER) (test 70.9 seconds 22.5-36.0 hkik=782) While on warfarin.PROTHROMBIN [id number] 04:51:00 Test Item Value Reference Range Comments PROTIME (BEAKER) (test cvxo=025) 19.8 seconds 11.9-14.2 INR (BEAKER) (test fhiq=346) 1.8 <=5.9 Effective 07/29/2018: PT Reference Range ChangeNew: 11.9-14.2 Previous: 11.7- 14.7RECOMMENDED COUMADIN/WARFARIN INR THERAPY RANGESSTANDARD DOSE: 2.0-3.0 Includes: PROPHYLAXIS for venous thrombosis, systemic embolization; TREATMENT for venous thrombosis and/or pulmonary embolus.HIGH RISK: Target INR is2.5-3.5 for patients wiht mechanical heart valves.While on warfarin.POCT-GLUCOSE [id number] 23:36:00 Test Item Value Reference Range Comments POC-GLUCOSE METER (BEAKER) 190 mg/dL 70-110 TESTED AT [address] (test iiyu=6216) [place] [address] [id number] 22:33:00 Test Item Value Reference Range Comments PARTIAL THROMBOPLASTIN TIME (BEAKER) (test 57.7 seconds 22.5-36.0 mocn=292) POCT-GLUCOSE [id number] 18:20:00 Test Item Value Reference Range Comments POC-GLUCOSE METER (BEAKER) 170 mg/dL 70-110 TESTED AT [address] (test isdh=7405) [place] [address] [id number] 16:52:00 Test Item Value Reference Range Comments PARTIAL THROMBOPLASTIN TIME (BEAKER) (test 24.5 seconds 22.5-36.0 pyfm=131) 6 hours after starting heparin infusion and as indicated per sliding scalePOCT- GLUCOSE [id number] 12:30:00 Test Item Value Reference Range Comments POC-GLUCOSE METER (BEAKER) 160 mg/dL 70-110 TESTED AT [address] (test vknb=7850) [place] [address] HIV-1 PCR, [id number] 10:23:00 Test Item Value Reference Range Comments HIV-1 NUMERIC RESULT (BEAKER) (test sfbr=5191) 1060 Cp/mL <20 This test uses a Real-Time Polymerase Chain Reaction (RT-PCR) methodology to detect a highly conserved region of the HIV-1 gag gene and was performed using the [employer] AmpliPrep/OLESYA TaqMan HIV-1 test kit version 2.0 ([employer]Reportable range for this assay is 20 - 10,000,000 copies per mL (1.3 - 7.0 Log copies/mL).COMPREHENSIVE METABOLIC [id number] 06:59:00 Test Item Value Reference Range Comments TOTAL PROTEIN (BEAKER) 6.1 gm/dL 6.0-8.3 Specimen slightly (test pwgo=101) hemolyzed ALBUMIN (BEAKER) (test 3.4 g/dL 3.5-5.0 Specimen slightly kpfo=9214) hemolyzed ALKALINE PHOSPHATASE 75 U/L 40-150 (BEAKER) (test zaoj=586) BILIRUBIN TOTAL (BEAKER) 3.7 mg/dL 0.2-1.2 Specimen slightly (test zwbh=309) hemolyzed SODIUM (BEAKER) (test 136 meq/L 136-145 vfix=838) POTASSIUM (BEAKER) (test 4.3 meq/L 3.5-5.1 Specimen slightly rofk=119) hemolyzed CHLORIDE (BEAKER) (test 97 meq/L 98-107 fout=303) CO2 (BEAKER) (test 20 meq/L 22-29 aqyp=233) BLOOD UREA NITROGEN 66 mg/dL 7-21 (BEAKER) (test ubmn=132) CREATININE (BEAKER) (test 7.56 mg/dL 0.57-1.25 Specimen slightly qokt=991) hemolyzed GLUCOSE RANDOM (BEAKER) 139 mg/dL 70-105 (test bqce=611) CALCIUM (BEAKER) (test 9.9 mg/dL 8.4-10.2 ltqv=431) AST (SGOT) (BEAKER) (test 376 U/L 5-34 Specimen slightly gdfh=255) hemolyzed ALT (SGPT) (BEAKER) (test 1109 U/L 6-55 Specimen slightly nztt=402) hemolyzed EGFR (BEAKER) (test 7 mL/min/1.73 sq m ESTIMATED GFR IS NOT pcxv=4898) ACCURATE CREATININE CLEARANCE IN PREDICTING GLOMERULAR FILTRATION RATE. ESTIMATED GFR IS NOT APPLICABLE FOR DIALYSIS PATIENTS. Specimen slightly [id number] 06:51:00 Test Item Value Reference Range Comments MAGNESIUM (BEAKER) (test 2.4 mg/dL 1.6-2.6 Specimen slightly hemolyzed htrz=096) PROTHROMBIN [id number] 06:44:00 Test Item Value Reference Range Comments PROTIME (BEAKER) (test chac=849) 20.7 seconds 11.9-14.2 INR (BEAKER) (test klzn=031) 1.9 <=5.9 Effective 07/29/2018: PT Reference Range ChangeNew: 11.9-14.2 Previous: 11.7- 14.7RECOMMENDED COUMADIN/WARFARIN INR THERAPY RANGESSTANDARD DOSE: 2.0-3.0 Includes: PROPHYLAXIS for venous thrombosis, systemic embolization; TREATMENT for venous thrombosis and/or pulmonary embolus.HIGH RISK: Target INR is2.5-3.5 for patients wiht mechanical heart valves.[id number] 06:37:00 Test Item Value Reference Range Comments AMMONIA (BEAKER) (test 65 mol/L 18-72 Specimen slightly hemolyzed qzuh=334) CBC W/PLT COUNT & AUTO [id number] 06:31:00 Test Item Value Reference Range Comments WHITE BLOOD CELL COUNT (BEAKER) (test klog=205) 15.7 K/ L 3.5-10.5 RED BLOOD CELL COUNT (BEAKER) (test iend=004) 3.96 M/ L 4.63-6.08 HEMOGLOBIN (BEAKER) (test pqun=556) 12.2 GM/DL 13.7-17.5 HEMATOCRIT (BEAKER) (test mcoh=900) 37.6 % 40.1-51.0 MEAN CORPUSCULAR VOLUME (BEAKER) (test wmjg=149) 94.9 fL 79.0-92.2 MEAN CORPUSCULAR HEMOGLOBIN (BEAKER) (test 30.8 pg 25.7-32.2 prrx=136) MEAN CORPUSCULAR HEMOGLOBIN CONC (BEAKER) (test 32.4 GM/DL 32.3-36.5 lblk=013) RED CELL DISTRIBUTION WIDTH (BEAKER) (test 17.7 % 11.6-14.4 yxtn=529) PLATELET COUNT (BEAKER) (test yfhb=193) 157 K/CU MM 150-450 MEAN PLATELET VOLUME (BEAKER) (test trvs=409) 11.1 fL 9.4-12.4 NUCLEATED RED BLOOD CELLS (BEAKER) (test 2 /100 WBC 0-0 kxcl=875) NEUTROPHILS RELATIVE PERCENT (BEAKER) (test 84 % inbs=550) LYMPHOCYTES RELATIVE PERCENT (BEAKER) (test 5 % jpjc=421) MONOCYTES RELATIVE PERCENT (BEAKER) (test 10 % vgfm=995) EOSINOPHILS RELATIVE PERCENT (BEAKER) (test 0 % mvwr=999) BASOPHILS RELATIVE PERCENT (BEAKER) (test 0 % tdpc=775) NEUTROPHILS ABSOLUTE COUNT (BEAKER) (test 13.20 K/ L 1.78-5.38 gvpe=235) LYMPHOCYTES ABSOLUTE COUNT (BEAKER) (test 0.73 K/ L 1.32-3.57 eyrl=653) MONOCYTES ABSOLUTE COUNT (BEAKER) (test 1.51 K/ L 0.30-0.82 etuf=601) EOSINOPHILS ABSOLUTE COUNT (BEAKER) (test 0.05 K/ L 0.04-0.54 yvvv=368) BASOPHILS ABSOLUTE COUNT (BEAKER) (test 0.03 K/ L 0.01-0.08 bwuy=606) IMMATURE GRANULOCYTES-RELATIVE PERCENT (BEAKER) 1 % 0-1 (test zkxu=1029) POCT-GLUCOSE [id number] 05:38:00 Test Item Value Reference Range Comments POC-GLUCOSE METER (BEAKER) 154 mg/dL 70-110 TESTED AT [address] (test okrd=1040) [place] [id number] POCT-GLUCOSE [id number] 00:02:00 Test Item Value Reference Range Comments POC-GLUCOSE METER (BEAKER) 160 mg/dL 70-110 TESTED AT [address] (test dkor=0611) [place] [id number] POCT-GLUCOSE [id number] 17:15:00 Test Item Value Reference Range Comments POC-GLUCOSE METER (BEAKER) 179 mg/dL 70-110 TESTED AT [address] (test yruh=2937) [facility] [address] POCT-GLUCOSE [id number] 05:46:00 Test Item Value Reference Range Comments POC-GLUCOSE METER (BEAKER) 126 mg/dL 70-110 TESTED AT [address] (test usae=9233) [facility] [address] CBC W/PLT COUNT & AUTO [id number] 04:13:00 Test Item Value Reference Range Comments WHITE BLOOD CELL COUNT (BEAKER) (test txlb=142) 16.9 K/ L 3.5-10.5 RED BLOOD CELL COUNT (BEAKER) (test bhdq=229) 4.16 M/ L 4.63-6.08 HEMOGLOBIN (BEAKER) (test jzmt=948) 13.1 GM/DL 13.7-17.5 HEMATOCRIT (BEAKER) (test ramc=146) 40.2 % 40.1-51.0 MEAN CORPUSCULAR VOLUME (BEAKER) (test nluo=341) 96.6 fL 79.0-92.2 MEAN CORPUSCULAR HEMOGLOBIN (BEAKER) (test 31.5 pg 25.7-32.2 rvqa=547) MEAN CORPUSCULAR HEMOGLOBIN CONC (BEAKER) (test 32.6 GM/DL 32.3-36.5 jujd=945) RED CELL DISTRIBUTION WIDTH (BEAKER) (test 17.1 % 11.6-14.4 svsp=821) PLATELET COUNT (BEAKER) (test pjdb=968) 202 K/CU MM 150-450 MEAN PLATELET VOLUME (BEAKER) (test cvkf=600) 11.0 fL 9.4-12.4 NUCLEATED RED BLOOD CELLS (BEAKER) (test 2 /100 WBC 0-0 kfyt=648) NEUTROPHILS RELATIVE PERCENT (BEAKER) (test 85 % nhne=115) LYMPHOCYTES RELATIVE PERCENT (BEAKER) (test 6 % cccs=696) MONOCYTES RELATIVE PERCENT (BEAKER) (test 8 % tnak=100) EOSINOPHILS RELATIVE PERCENT (BEAKER) (test 0 % gtex=365) BASOPHILS RELATIVE PERCENT (BEAKER) (test 0 % ulkt=091) NEUTROPHILS ABSOLUTE COUNT (BEAKER) (test 14.25 K/ L 1.78-5.38 abth=706) LYMPHOCYTES ABSOLUTE COUNT (BEAKER) (test 0.97 K/ L 1.32-3.57 symd=638) MONOCYTES ABSOLUTE COUNT (BEAKER) (test 1.30 K/ L 0.30-0.82 levl=341) EOSINOPHILS ABSOLUTE COUNT (BEAKER) (test 0.02 K/ L 0.04-0.54 ofsx=879) BASOPHILS ABSOLUTE COUNT (BEAKER) (test 0.04 K/ L 0.01-0.08 ytce=009) IMMATURE GRANULOCYTES-RELATIVE PERCENT (BEAKER) 2 % 0-1 (test yfvb=7465) TSH/FREE T4 IF [id number] 04:05:00 Test Item Value Reference Range Comments THYROID STIMULATING HORMONE (BEAKER) (test 0.85 uIU/mL 0.35-4.94 hsgy=380) [id number] 03:41:00 Test Item Value Reference Range Comments MAGNESIUM (BEAKER) (test laol=778) 2.5 mg/dL 1.6-2.6 COMPREHENSIVE METABOLIC [id number] 03:41:00 Test Item Value Reference Range Comments TOTAL PROTEIN (BEAKER) 6.4 gm/dL 6.0-8.3 (test fryv=901) ALBUMIN (BEAKER) (test 3.6 g/dL 3.5-5.0 zezg=5951) ALKALINE PHOSPHATASE 70 U/L 40-150 (BEAKER) (test lmkr=512) BILIRUBIN TOTAL (BEAKER) 3.3 mg/dL 0.2-1.2 (test nmlf=798) SODIUM (BEAKER) (test 136 meq/L 136-145 duib=290) POTASSIUM (BEAKER) (test 5.2 meq/L 3.5-5.1 isno=158) CHLORIDE (BEAKER) (test 92 meq/L 98-107 fygj=979) CO2 (BEAKER) (test 18 meq/L 22-29 zyvn=229) BLOOD UREA NITROGEN 85 mg/dL 7-21 (BEAKER) (test bzmg=223) CREATININE (BEAKER) (test 9.03 mg/dL 0.57-1.25 freu=175) GLUCOSE RANDOM (BEAKER) 130 mg/dL 70-105 (test hjjj=749) CALCIUM (BEAKER) (test 10.0 mg/dL 8.4-10.2 sqdg=446) AST (SGOT) (BEAKER) (test 859 U/L 5-34 tift=310) ALT (SGPT) (BEAKER) (test 1588 U/L 6-55 dkhg=032) EGFR (BEAKER) (test 6 mL/min/1.73 sq m ESTIMATED GFR IS NOT uwhj=0693) ACCURATE CREATININE CLEARANCE IN PREDICTING GLOMERULAR FILTRATION RATE. ESTIMATED GFR IS NOT APPLICABLE FOR DIALYSIS PATIENTS. Specimen slightly ictericPROTHROMBIN [id number] 03:29:00 Test Item Value Reference Range Comments PROTIME (BEAKER) (test uopu=590) 25.5 seconds 11.9-14.2 INR (BEAKER) (test ehhd=687) 2.5 <=5.9 RECOMMENDED COUMADIN/WARFARIN INR THERAPY RANGESSTANDARD DOSE: 2.0 - 3.0 Includes: PROPHYLAXIS forvenous thrombosis, systemic embolization; TREATMENT for venous thrombosis and/or pulmonary embolus.HIGH RISK: Target INR is 2.5-3.5 for patients with mechanical heart valves.POCT-GLUCOSE [id number] 23:42:00 Test Item Value Reference Range Comments POC-GLUCOSE METER (BEAKER) 79 mg/dL 70-110 TESTED AT [place] [id number] [facility] (test iurp=2285) [facility] [address] POCT-GLUCOSE [id number] 23:34:00 Test Item Value Reference Range Comments POC-GLUCOSE METER (BEAKER) 75 mg/dL 70-110 TESTED AT [address] (test pmvp=9944) [facility] [address] POCT-GLUCOSE [id number] 18:28:00 Test Item Value Reference Range Comments POC-GLUCOSE METER (BEAKER) 87 mg/dL 70-110 TESTED AT [address] (test bsaa=7939) [place] [id number] LACTIC ACID, [id number] 14:47:00 Test Item Value Reference Range Comments LACTATE BLOOD VENOUS (2) (BEAKER) (test 5.3 mmol/L 0.5-2.2 bllj=0994) Specimen slightly ictericBASIC METABOLIC [id number] 14:40:00 Test Item Value Reference Range Comments SODIUM (BEAKER) (test 138 meq/L 136-145 kphp=656) POTASSIUM (BEAKER) (test 5.0 meq/L 3.5-5.1 Specimen slightly ubbv=941) hemolyzed CHLORIDE (BEAKER) (test 94 meq/L 98-107 pwlk=142) CO2 (BEAKER) (test 21 meq/L 22-29 ezcx=732) BLOOD UREA NITROGEN 69 mg/dL 7-21 (BEAKER) (test klsv=612) CREATININE (BEAKER) (test 8.21 mg/dL 0.57-1.25 Specimen slightly wjor=337) hemolyzed GLUCOSE RANDOM (BEAKER) 84 mg/dL 70-105 (test dovm=310) CALCIUM (BEAKER) (test 9.6 mg/dL 8.4-10.2 qzul=680) EGFR (BEAKER) (test 6 mL/min/1.73 sq m ESTIMATED GFR IS NOT namf=4018) ACCURATE CREATININE CLEARANCE IN PREDICTING GLOMERULAR FILTRATION RATE. ESTIMATED GFR IS NOT APPLICABLE FOR DIALYSIS PATIENTS. Specimen slightly [id number] 14:34:00 Test Item Value Reference Range Comments PARTIAL THROMBOPLASTIN TIME (BEAKER) (test 91.0 seconds 22.5-36.0 vwbd=805) [id number] 14:30:00 Test Item Value Reference Range Comments AMMONIA (BEAKER) (test rfjo=012) 96 mol/L 18-72 POCT-GLUCOSE [id number] 13:06:00 Test Item Value Reference Range Comments POC-GLUCOSE METER (BEAKER) 87 mg/dL 70-110 TESTED AT [facility] [address] [facility] (test ggke=1570) [facility] [address] CD4 T CELL [id number] 09:28:00 Test Item Value Reference Range Comments TOTAL LYMPHOCYTES FC (BEAKER) (test vsvz=4571) 679 /cu mm CD3+ TOTAL T CELLS % FC (BEAKER) (test gwbh=8483) 81 % 49-84 CD3+ TOTAL T CELLS ABSOLUTE FC (BEAKER) (test 553 /cu mm 603-2,990 alye=4931) CD3+/CD8+ T SUPPRESSOR CELLS % FC (BEAKER) (test 13 % 10-40 ublm=2006) CD3+/CD8+ T SUPPRESSOR CELLS ABS FC (BEAKER) 86 /cu mm 125-1,312 (test biqe=7142) CD3+/CD4+ T HELPER CELLS % FC (BEAKER) (test 69 % 28-63 wlln=5970) CD3+/CD4+ T HELPER CELLS ABS FC (BEAKER) (test 468 /cu mm 441-2,156 cpes=0938) CD4/CD8 RATIO FC (BEAKER) (test sueg=1892) 5.46 0.70-3.23 CD16+/CD56+ NATURAL KILLER CELLS % FC (BEAKER) 11 % 4-25 (test jrap=1728) CD16+/CD56+ NATURAL KILLER CELLS ABS FC (BEAKER) 72 /cu mm 95-640 (test jqkk=3490) CD19+ TOTAL B CELLS % FC (BEAKER) (test 7 % 6-27 xvle=9702) CD19+ TOTAL B CELLS ABS FC (BEAKER) (test 49 /cu mm 107-698 sjdb=4292) CBC W/PLT COUNT & AUTO [id number] 08:53:00 Test Item Value Reference Range Comments WHITE BLOOD CELL COUNT (BEAKER) (test dovt=482) 19.6 K/ L 3.5-10.5 RED BLOOD CELL COUNT (BEAKER) (test cnwq=916) 4.06 M/ L 4.63-6.08 HEMOGLOBIN (BEAKER) (test mdod=625) 12.5 GM/DL 13.7-17.5 HEMATOCRIT (BEAKER) (test utle=647) 40.2 % 40.1-51.0 MEAN CORPUSCULAR VOLUME (BEAKER) (test zvlr=289) 99.0 fL 79.0-92.2 MEAN CORPUSCULAR HEMOGLOBIN (BEAKER) (test 30.8 pg 25.7-32.2 yczg=529) MEAN CORPUSCULAR HEMOGLOBIN CONC (BEAKER) (test 31.1 GM/DL 32.3-36.5 xrtq=078) RED CELL DISTRIBUTION WIDTH (BEAKER) (test 16.5 % 11.6-14.4 lkmo=894) PLATELET COUNT (BEAKER) (test saug=942) 170 K/CU MM 150-450 MEAN PLATELET VOLUME (BEAKER) (test ayys=281) 11.3 fL 9.4-12.4 NUCLEATED RED BLOOD CELLS (BEAKER) (test 2 /100 WBC 0-0 mcnl=216) (CELLAVISION MANUAL DIFF)[id number] 08:53:00 Test Item Value Reference Range Comments NEUTROPHILS - REL (CELLAVISION)(BEAKER) (test 90 % kexd=7919) LYMPHOCYTES - REL (CELLAVISION)(BEAKER) (test 3 % fzhq=5124) MONOCYTES - REL (CELLAVISION)(BEAKER) (test 4 % uwxh=3539) BANDS - REL (CELLAVISION)(BEAKER) (test 3 % 0-10 htkz=5970) NEUTROPHILS - ABS (CELLAVISION)(BEAKER) (test 17.64 K/ul 1.78-5.38 lzwz=3467) LYMPHOCYTES - ABS (CELLAVISION)(BEAKER) (test 0.59 K/ul 1.32-3.57 wwqt=1957) MONOCYTES - ABS (CELLAVISION)(BEAKER) (test 0.78 K/uL 0.30-0.82 sqeq=3959) BANDS - ABS (CELLAVISION)(BEAKER) (test 0.59 K/uL 0.00-0.80 xwjz=5669) TOTAL COUNTED (BEAKER) (test pxpt=9942) 100 WBC MORPHOLOGY (BEAKER) (test utci=731) Normal PLT MORPHOLOGY (BEAKER) (test uuvp=377) Normal ANISOCYTOSIS (BEAKER) (test hshf=520) 1+ few MACROCYTES (BEAKER) (test jsrw=264) 1+ few POIKILOCYTES (BEAKER) (test ljhc=960) 1+ few ARTIFACT (CELLAVISION)(BEAKER) (test zmcb=3964) Present PLATELET CONCENTRATION (CELLAVISION)(BEAKER) Adequate (test utog=4582) Received comment: User comments: Slide comments:[id number] 08:35:00 Test Item Value Reference Range Comments PARTIAL THROMBOPLASTIN TIME (BEAKER) (test 74.6 seconds 22.5-36.0 cerr=222) PROTHROMBIN [id number] 08:34:00 Test Item Value Reference Range Comments PROTIME (BEAKER) (test znpl=433) 25.2 seconds 11.7-14.7 INR (BEAKER) (test dfok=987) 2.4 <=5.9 RECOMMENDED COUMADIN/WARFARIN INR THERAPY RANGESSTANDARD DOSE: 2.0 - 3.0 Includes: PROPHYLAXIS forvenous thrombosis, systemic embolization; TREATMENT for venous thrombosis and/or pulmonary embolus.HIGH RISK: Target INR is 2.5-3.5 for patients with mechanical heart valves.LACTIC ACID, [id number] 08:32:00 Test Item Value Reference Range Comments LACTATE BLOOD VENOUS (2) 5.7 mmol/L 0.5-2.2 Specimen slightly hemolyzed (BEAKER) (test nfkl=0875) POCT-GLUCOSE [id number] 08:20:00 Test Item Value Reference Range Comments POC-GLUCOSE METER (BEAKER) 88 mg/dL 70-110 TESTED AT [facility] [address] [facility] (test ddzs=0623) [facility] [address] [id number] 05:11:00 Test Item Value Reference Range Comments PHOSPHORUS (BEAKER) (test ppaz=327) 10.5 mg/dL 2.3-4.7 COMPREHENSIVE METABOLIC [id number] 04:58:00 Test Item Value Reference Range Comments TOTAL PROTEIN (BEAKER) 6.3 gm/dL 6.0-8.3 (test aiyd=434) ALBUMIN (BEAKER) (test 3.5 g/dL 3.5-5.0 sczc=7984) ALKALINE PHOSPHATASE 65 U/L 40-150 (BEAKER) (test ykye=281) BILIRUBIN TOTAL (BEAKER) 2.3 mg/dL 0.2-1.2 (test kyxv=943) SODIUM (BEAKER) (test 139 meq/L 136-145 gmcb=382) POTASSIUM (BEAKER) (test 5.0 meq/L 3.5-5.1 scyd=917) CHLORIDE (BEAKER) (test 95 meq/L 98-107 dzsl=691) CO2 (BEAKER) (test 22 meq/L 22-29 xtyi=931) BLOOD UREA NITROGEN 61 mg/dL 7-21 (BEAKER) (test uwkr=538) CREATININE (BEAKER) (test 7.77 mg/dL 0.57-1.25 lcmm=224) GLUCOSE RANDOM (BEAKER) 79 mg/dL 70-105 (test xxtp=453) CALCIUM (BEAKER) (test 9.8 mg/dL 8.4-10.2 gsry=899) AST (SGOT) (BEAKER) (test 1175 U/L 5-34 pmyc=116) ALT (SGPT) (BEAKER) (test 1724 U/L 6-55 aaml=814) EGFR (BEAKER) (test 7 mL/min/1.73 sq m ESTIMATED GFR IS NOT zvxm=9596) ACCURATE CREATININE CLEARANCE IN PREDICTING GLOMERULAR FILTRATION RATE. ESTIMATED GFR IS NOT APPLICABLE FOR DIALYSIS PATIENTS. Specimen slightly ictericPTH, [id number] 04:57:00 Test Item Value Reference Range Comments PARATHYROID HORMONE INTACT (BEAKER) (test 578.6 pg/mL 8.5-72.5 sjkp=277) [id number] 02:13:00 Test Item Value Reference Range Comments PARTIAL THROMBOPLASTIN TIME (BEAKER) (test 53.4 seconds 22.5-36.0 gulo=742) [id number] 01:40:00 Test Item Value Reference Range Comments PARTIAL THROMBOPLASTIN TIME (BEAKER) (test > seconds 22.5-36.0 stby=652) BASIC METABOLIC [id number] 00:55:00 Test Item Value Reference Range Comments SODIUM (BEAKER) (test 136 meq/L 136-145 gfnu=787) POTASSIUM (BEAKER) (test 4.8 meq/L 3.5-5.1 spqk=300) CHLORIDE (BEAKER) (test 95 meq/L 98-107 luks=822) CO2 (BEAKER) (test 20 meq/L 22-29 thod=067) BLOOD UREA NITROGEN 54 mg/dL 7-21 (BEAKER) (test anog=987) CREATININE (BEAKER) (test 7.39 mg/dL 0.57-1.25 hviz=637) GLUCOSE RANDOM (BEAKER) 106 mg/dL 70-105 (test hxah=142) CALCIUM (BEAKER) (test 9.6 mg/dL 8.4-10.2 ggxy=630) EGFR (BEAKER) (test 7 mL/min/1.73 sq m ESTIMATED GFR IS NOT egyw=5205) ACCURATE CREATININE CLEARANCE IN PREDICTING GLOMERULAR FILTRATION RATE. ESTIMATED GFR IS NOT APPLICABLE FOR DIALYSIS PATIENTS. Specimen slightly ictericPOCT-GLUCOSE [id number] 00:15:00 Test Item Value Reference Range Comments POC-GLUCOSE METER (BEAKER) 123 mg/dL 70-110 TESTED AT [address] (test dleh=5476) [place] [address] POCT-GLUCOSE [id number] 18:01:00 Test Item Value Reference Range Comments POC-GLUCOSE METER (BEAKER) 90 mg/dL 70-110 TESTED AT [address] (test edqf=5109) [place] [address] [id number] 17:47:00 Test Item Value Reference Range Comments PARTIAL THROMBOPLASTIN TIME (BEAKER) (test 56.1 seconds 22.5-36.0 qlim=315) POCT-GLUCOSE [id number] 17:27:00 Test Item Value Reference Range Comments POC-GLUCOSE METER (BEAKER) 99 mg/dL 70-110 TESTED AT [address] (test gtmp=0241) [place] [id number] RESPIRATORY PANEL [id number] 10:42:00 Test Item Value Reference Range Comments HUMAN METAPNEUMOVIRUS (BEAKER) (test Not detected Not detected, Equivocal pfrd=5216) RHINOVIRUS (BEAKER) (test yglo=2938) Not detected Not detected, Equivocal INFLUENZA A (BEAKER) (test dejx=7196) Not detected Not detected, Equivocal INFLUENZA A (NO SUBTYPE) (test Not detected, Equivocal shbg=4491) INFLUENZA A SUBTYPE H1 (BEAKER) (test Not detected, Equivocal kpxh=5639) INFLUENZA A SUBTYPE H3 (BEAKER) (test Not detected, Equivocal yfpt=3190) INFLUENZA A SUBTYPE H1-2009 (BEAKER) Not detected, Equivocal (test vcqd=2842) INFLUENZA B (BEAKER) (test zici=8401) Not detected Not detected, Equivocal RESPIRATORY SYNCYTIAL VIRUS (BEAKER) Not detected Not detected, Equivocal (test fhyz=1419) PARAINFLUENZA VIRUS 1 (BEAKER) (test Not detected Not detected, Equivocal kffh=0408) PARAINFLUENZA VIRUS 2 (BEAKER) (test Not detected Not detected, Equivocal avxm=6652) PARAINFLUENZA VIRUS 3 (BEAKER) (test Not detected Not detected, Equivocal ticm=9266) PARAINFLUENZA VIRUS 4 (BEAKER) (test Not detected Not detected, Equivocal yrbs=4545) ADENOVIRUS (BEAKER) (test gwms=5051) Not detected Not detected, Equivocal CORONAVIRUS 229E (BEAKER) (test Not detected Not detected, Equivocal njgq=9021) CORONAVIRUS HKU1 (BEAKER) (test Not detected Not detected, Equivocal fpvn=3155) CORONAVIRUS NL63 (BEAKER) (test Not detected Not detected, Equivocal vykq=6691) CORONAVIRUS OC43 (BEAKER) (test Not detected Not detected, Equivocal ijjc=2186) BORDETELLA PERTUSSIS (BEAKER) (test Not detected Not detected, Equivocal kzgj=4712) CHLAMYDOPHILA PNEUMONIAE (BEAKER) (test Not detected Not detected, Equivocal bvif=9883) MYCOPLASMA PNEUMONIAE (BEAKER) (test Not detected Not detected, Equivocal reof=3914) Other viruses and bacteria not targeted by this PCR panel cannot be excluded; therefore clinical correlation and follow up of serology, culture results, and other molecular studies is required. The results are not intended to be used as the sole means for clinical diagnosis or patient management decisions. This sample was tested at the [facility] using the [employer]osharedArray Respiratory Panel. It is FDA cleared and has been verified and approved by the [facility] for clinical use on nasopharyngeal swab specimens.The performance of the FilmArrayRP has not been established in individuals who received influenza vaccine. Recent administration ofa nasal influenza vaccine may cause false positive results for Influenza A and/orInfluenza B.PT/[id number] 10:30:00 Test Item Value Reference Range Comments PROTIME (MARTIR) (test olan=309) 22.7 seconds 11.7-14.7 INR (BEAKER) (test xdmt=541) 2.1 <=5.9 PARTIAL THROMBOPLASTIN TIME (BEAKER) (test 51.6 seconds 22.5-36.0 hora=439) RECOMMENDED COUMADIN/WARFARIN INR THERAPY RANGESSTANDARD DOSE: 2.0 - 3.0 Includes: PROPHYLAXIS forvenous thrombosis, systemic embolization; TREATMENT for venous thrombosis and/or pulmonary embolus.HIGH RISK: Target INR is 2.5-3.5 for patients with mechanical heart valves.HEPATITIS B SURFACE [id number] 09:41:00 Test Item Value Reference Range Comments HEPATITIS B SURFACE ANTIGEN (2) (Skim[employer]it) (test Nonreactive Nonreactive vmvm=5861) For chronic HD patients, draw HBsAg with each admission then every 30 days.TROPONIN [id number] 07:24:00 Test Item Value Reference Range Comments TROPONIN I (BEAKER) (test fveb=020) 0.98 ng/mL 0.00-0.03 Troponin I (TnI) levels [...] acidosis, acute neurological disease, and persistent tachyarrhythmia.POCT-GLUCOSE [id number] 06:38:00 Test Item Value Reference Range Comments POC-GLUCOSE METER (Skim[employer]it) 108 mg/dL 70-110 TESTED AT [facility] [address] [facility] (test vxva=1324) [facility] [address] TROPONIN [id number] 02:40:00 Test Item Value Reference Range Comments TROPONIN I (BEAKER) (test zjdb=303) 1.10 ng/mL 0.00-0.03 Troponin I (TnI) levels [...] acute neurological disease, and persistent tachyarrhythmia.COMPREHENSIVE METABOLIC [id number] 02:40:00 Test Item Value Reference Range Comments TOTAL PROTEIN (BEAKER) 6.6 gm/dL 6.0-8.3 (test qxqn=690) ALBUMIN (BEAKER) (test 3.7 g/dL 3.5-5.0 gfms=4329) ALKALINE PHOSPHATASE 58 U/L 40-150 (BEAKER) (test uwws=647) BILIRUBIN TOTAL (BEAKER) 1.6 mg/dL 0.2-1.2 (test bgxs=812) SODIUM (BEAKER) (test 138 meq/L 136-145 qlrf=409) POTASSIUM (BEAKER) (test 4.9 meq/L 3.5-5.1 hbyw=518) CHLORIDE (BEAKER) (test 94 meq/L 98-107 juvh=060) CO2 (BEAKER) (test 21 meq/L 22-29 wkgz=530) BLOOD UREA NITROGEN 99 mg/dL 7-21 (BEAKER) (test logo=641) CREATININE (BEAKER) (test 10.86 mg/dL 0.57-1.25 iiad=907) GLUCOSE RANDOM (BEAKER) 126 mg/dL 70-105 (test qkfo=451) CALCIUM (BEAKER) (test 10.5 mg/dL 8.4-10.2 uopv=848) AST (SGOT) (BEAKER) (test 1853 U/L 5-34 efds=853) ALT (SGPT) (BEAKER) (test 1752 U/L 6-55 oeqc=904) EGFR (BEAKER) (test 5 mL/min/1.73 sq m ESTIMATED GFR IS NOT akhd=9689) ACCURATE CREATININE CLEARANCE IN PREDICTING GLOMERULAR FILTRATION RATE. ESTIMATED GFR IS NOT APPLICABLE FOR DIALYSIS PATIENTS. [id number] 02:39:00 Test Item Value Reference Range Comments PHOSPHORUS (BEAKER) (test qdhc=580) 12.8 mg/dL 2.3-4.7 CBC W/PLT COUNT & AUTO [id number] 02:33:00 Test Item Value Reference Range Comments WHITE BLOOD CELL COUNT (BEAKER) (test rawv=290) 13.2 K/ L 3.5-10.5 RED BLOOD CELL COUNT (BEAKER) (test fhau=238) 3.75 M/ L 4.63-6.08 HEMOGLOBIN (BEAKER) (test cehc=195) 11.6 GM/DL 13.7-17.5 HEMATOCRIT (BEAKER) (test xzzm=669) 35.4 % 40.1-51.0 MEAN CORPUSCULAR VOLUME (BEAKER) (test roti=661) 94.4 fL 79.0-92.2 MEAN CORPUSCULAR HEMOGLOBIN (BEAKER) (test 30.9 pg 25.7-32.2 xntf=909) MEAN CORPUSCULAR HEMOGLOBIN CONC (BEAKER) (test 32.8 GM/DL 32.3-36.5 vhsp=967) RED CELL DISTRIBUTION WIDTH (BEAKER) (test 15.4 % 11.6-14.4 tnfu=035) PLATELET COUNT (BEAKER) (test fdwc=856) 144 K/CU MM 150-450 MEAN PLATELET VOLUME (BEAKER) (test txfx=424) 11.1 fL 9.4-12.4 NUCLEATED RED BLOOD CELLS (BEAKER) (test 1 /100 WBC 0-0 mutf=127) NEUTROPHILS RELATIVE PERCENT (BEAKER) (test 82 % gces=515) LYMPHOCYTES RELATIVE PERCENT (BEAKER) (test 6 % hphb=515) MONOCYTES RELATIVE PERCENT (BEAKER) (test 10 % ajcd=474) EOSINOPHILS RELATIVE PERCENT (BEAKER) (test 1 % stap=343) BASOPHILS RELATIVE PERCENT (BEAKER) (test 0 % fhrj=674) NEUTROPHILS ABSOLUTE COUNT (BEAKER) (test 10.82 K/ L 1.78-5.38 hljo=424) LYMPHOCYTES ABSOLUTE COUNT (BEAKER) (test 0.84 K/ L 1.32-3.57 drrw=335) MONOCYTES ABSOLUTE COUNT (BEAKER) (test 1.32 K/ L 0.30-0.82 uehd=513) EOSINOPHILS ABSOLUTE COUNT (BEAKER) (test 0.08 K/ L 0.04-0.54 djdw=306) BASOPHILS ABSOLUTE COUNT (BEAKER) (test 0.04 K/ L 0.01-0.08 orku=218) IMMATURE GRANULOCYTES-RELATIVE PERCENT (BEAKER) 1 % 0-1 (test yjda=6172) BASIC METABOLIC [id number] 02:32:00 Test Item Value Reference Range Comments SODIUM (BEAKER) (test 138 meq/L 136-145 babb=994) POTASSIUM (BEAKER) (test 4.9 meq/L 3.5-5.1 fari=109) CHLORIDE (BEAKER) (test 94 meq/L 98-107 ypwv=370) CO2 (BEAKER) (test 21 meq/L 22-29 leue=902) BLOOD UREA NITROGEN 99 mg/dL 7-21 (BEAKER) (test mufs=151) CREATININE (BEAKER) (test 10.86 mg/dL 0.57-1.25 turm=403) GLUCOSE RANDOM (BEAKER) 126 mg/dL 70-105 (test micu=729) CALCIUM (BEAKER) (test 10.5 mg/dL 8.4-10.2 uovq=506) EGFR (BEAKER) (test 5 mL/min/1.73 sq m ESTIMATED GFR IS NOT ilkn=3252) ACCURATE CREATININE CLEARANCE IN PREDICTING GLOMERULAR FILTRATION RATE. ESTIMATED GFR IS NOT APPLICABLE FOR DIALYSIS PATIENTS. [id number] 02:26:00 Test Item Value Reference Range Comments PARTIAL THROMBOPLASTIN TIME (BEAKER) (test 49.1 seconds 22.5-36.0 lrza=241) LACTIC ACID, [id number] 02:00:00 Test Item Value Reference Range Comments LACTATE BLOOD VENOUS (2) (BEAKER) (test 2.7 mmol/L 0.5-2.2 maqo=8519) POCT-GLUCOSE [id number] 23:58:00 Test Item Value Reference Range Comments POC-GLUCOSE METER (BEAKER) 105 mg/dL 70-110 TESTED AT [facility] [address] [facility] (test hczq=6197) [facility] [address] BLOOD GAS, [id number] 22:15:00 Test Item Value Reference Range Comments PH ARTERIAL (BEAKER) (test dijx=485) 7.39 7.35-7.45 PCO2 ARTERIAL (BEAKER) (test thqr=016) 36 mmHg 35-45 PO2 ARTERIAL (BEAKER) (test debu=989) 209 mmHg 80-90 O2 SATURATION ARTERIAL (BEAKER) (test txoe=862) 99.4 % 96.0-97.0 HCO3 ARTERIAL (BEAKER) (test vfff=907) 21 mmol/L 21-29 BASE EXCESS ARTERIAL (BEAKER) (test xzhz=674) -3.3 mmol/L -2.0-3.0 PATIENT TEMPERATURE (BEAKER) (test ljga=2701) 36.5 C FIO2 (BEAKER) (test ahdh=0718) 50.0 % HEMOGLOBIN [id number] 21:35:00 Test Item Value Reference Range Comments HEMOGLOBIN A1C (BEAKER) (test jtcj=820) 5.8 % 4.3-6.1 TROPONIN [id number] 21:06:00 Test Item Value Reference Range Comments TROPONIN I (BEAKER) (test antw=586) 1.34 ng/mL 0.00-0.03 Troponin I (TnI) levels [...] acute neurological disease, and persistent tachyarrhythmia.BASIC METABOLIC [id number] 20:49:00 Test Item Value Reference Range Comments SODIUM (BEAKER) (test 136 meq/L 136-145 dtru=746) POTASSIUM (BEAKER) (test 5.9 meq/L 3.5-5.1 Specimen slightly zqrr=998) hemolyzed CHLORIDE (BEAKER) (test 94 meq/L 98-107 wxux=173) CO2 (BEAKER) (test 19 meq/L 22-29 sxzs=544) BLOOD UREA NITROGEN 93 mg/dL 7-21 (BEAKER) (test ydht=338) CREATININE (BEAKER) (test 10.26 mg/dL 0.57-1.25 Specimen slightly xuew=862) hemolyzed GLUCOSE RANDOM (BEAKER) 65 mg/dL 70-105 (test ackn=107) CALCIUM (BEAKER) (test 10.6 mg/dL 8.4-10.2 tedg=582) EGFR (BEAKER) (test 5 mL/min/1.73 sq m ESTIMATED GFR IS NOT gyhw=8822) ACCURATE CREATININE CLEARANCE IN PREDICTING GLOMERULAR FILTRATION RATE. ESTIMATED GFR IS NOT APPLICABLE FOR DIALYSIS PATIENTS. LACTIC ACID, [id number] 20:44:00 Test Item Value Reference Range Comments LACTATE BLOOD VENOUS (2) 3.1 mmol/L 0.5-2.2 Specimen slightly hemolyzed (BEAKER) (test bjxt=9775) [id number] 20:38:00 Test Item Value Reference Range Comments PARTIAL THROMBOPLASTIN TIME (BEAKER) (test 37.2 seconds 22.5-36.0 atxz=371) POCT-GLUCOSE [id number] 19:57:00 Test Item Value Reference Range Comments POC-GLUCOSE METER (BEAKER) 84 mg/dL 70-110 TESTED AT [address] (test qkcb=7834) [place] [address] [address], BRAIN, WITHOUT [id number] 19:39:00FINAL REPORT CT Head without contrast CLINICAL [...] Vega Verified Date/Time: 07/26/2018 19:39:58 Reading Location: [address] Reading Room POCT-GLUCOSE [id number] 19:06:00 Test Item Value Reference Range Comments POC-GLUCOSE METER (BEAKER) 61 mg/dL 70-110 TESTED AT [address] (test hgtu=9217) [place] [id number] POCT-GLUCOSE [id number] 14:25:00 Test Item Value Reference Range Comments POC-GLUCOSE METER (BEAKER) 85 mg/dL 70-110 TESTED AT [facility] [address] [facility] (test jsim=9996) [facility] [address] CBC W/PLT COUNT & AUTO [id number] 13:27:00 Test Item Value Reference Range Comments WHITE BLOOD CELL COUNT (BEAKER) (test ggob=560) 14.8 K/ L 3.5-10.5 RED BLOOD CELL COUNT (BEAKER) (test ztdz=838) 3.85 M/ L 4.63-6.08 HEMOGLOBIN (BEAKER) (test pavi=013) 12.0 GM/DL 13.7-17.5 HEMATOCRIT (BEAKER) (test wrcx=815) 36.5 % 40.1-51.0 MEAN CORPUSCULAR VOLUME (BEAKER) (test xarm=969) 94.8 fL 79.0-92.2 MEAN CORPUSCULAR HEMOGLOBIN (BEAKER) (test 31.2 pg 25.7-32.2 mmhf=612) MEAN CORPUSCULAR HEMOGLOBIN CONC (BEAKER) (test 32.9 GM/DL 32.3-36.5 owfw=105) RED CELL DISTRIBUTION WIDTH (BEAKER) (test 15.5 % 11.6-14.4 pqjf=333) PLATELET COUNT (BEAKER) (test imkr=069) 156 K/CU MM 150-450 MEAN PLATELET VOLUME (BEAKER) (test cpsw=931) 11.0 fL 9.4-12.4 NUCLEATED RED BLOOD CELLS (BEAKER) (test 0 /100 WBC 0-0 hxjz=708) (CELLAVISION MANUAL DIFF)2018-07-26 13:27:00 Test Item Value Reference Range Comments NEUTROPHILS - REL (CELLAVISION)(BEAKER) (test 86 % giwo=5768) LYMPHOCYTES - REL (CELLAVISION)(BEAKER) (test 2 % zljs=3606) MONOCYTES - REL (CELLAVISION)(BEAKER) (test 11 % hysb=8852) EOSINOPHILS - REL (CELLAVISION)(BEAKER) (test 1 % kuvw=1349) NEUTROPHILS - ABS (CELLAVISION)(BEAKER) (test 12.73 K/ul 1.78-5.38 qujv=8685) LYMPHOCYTES - ABS (CELLAVISION)(BEAKER) (test 0.30 K/ul 1.32-3.57 egcw=0550) MONOCYTES - ABS (CELLAVISION)(BEAKER) (test 1.63 K/uL 0.30-0.82 zsmk=3644) EOSINOPHILS - ABS (CELLAVISION)(BEAKER) (test 0.15 K/uL 0.04-0.54 ziat=0858) TOTAL COUNTED (BEAKER) (test ptrg=5771) 100 WBC MORPHOLOGY (BEAKER) (test rmff=071) Normal PLT MORPHOLOGY (BEAKER) (test psvj=152) Normal ANISOCYTOSIS (BEAKER) (test rdgx=630) 1+ few POIKILOCYTES (BEAKER) (test zdxy=775) 1+ few ARTIFACT (CELLAVISION)(BEAKER) (test yobj=9917) Present PLATELET CONCENTRATION (CELLAVISION)(BEAKER) Adequate (test svby=6453) Received comment: User comments: Slide comments:[id number] 13:23:00 Test Item Value Reference Range Comments PROCALCITONIN (BEAKER) (test lslj=2908) 0.72 ng/mL <0.05 SEPSIS RISK (ng/mL)Low: 0.05-0.50Intermediate: 0.51-2.00High: & gt;=2.01TROPONIN [id number] 12:55:00 Test Item Value Reference Range Comments TROPONIN I (BEAKER) (test pbpf=128) 1.34 ng/mL 0.00-0.03 Troponin I (TnI) levels [...] acute neurological disease, and persistent tachyarrhythmia.COMPREHENSIVE METABOLIC [id number] 12:50:00 Test Item Value Reference Range Comments TOTAL PROTEIN (BEAKER) 6.6 gm/dL 6.0-8.3 (test nduh=296) ALBUMIN (BEAKER) (test 3.8 g/dL 3.5-5.0 hrml=7700) ALKALINE PHOSPHATASE 56 U/L 40-150 (BEAKER) (test xthd=242) BILIRUBIN TOTAL (BEAKER) 1.4 mg/dL 0.2-1.2 (test kphl=859) SODIUM (BEAKER) (test 135 meq/L 136-145 ydjh=992) POTASSIUM (BEAKER) (test 5.7 meq/L 3.5-5.1 flhi=757) CHLORIDE (BEAKER) (test 94 meq/L 98-107 breu=897) CO2 (BEAKER) (test 19 meq/L 22-29 rnwa=006) BLOOD UREA NITROGEN 90 mg/dL 7-21 (BEAKER) (test cojc=212) CREATININE (BEAKER) (test 9.76 mg/dL 0.57-1.25 tzyf=804) GLUCOSE RANDOM (BEAKER) 88 mg/dL 70-105 (test fbio=687) CALCIUM (BEAKER) (test 10.4 mg/dL 8.4-10.2 wuby=296) AST (SGOT) (BEAKER) (test 2387 U/L 5-34 ypco=316) ALT (SGPT) (BEAKER) (test 1730 U/L 6-55 fxwq=800) EGFR (BEAKER) (test 5 mL/min/1.73 sq m ESTIMATED GFR IS NOT uxwu=2823) ACCURATE CREATININE CLEARANCE IN PREDICTING GLOMERULAR FILTRATION RATE. ESTIMATED GFR IS NOT APPLICABLE FOR DIALYSIS PATIENTS. PROTHROMBIN [id number] 12:47:00 Test Item Value Reference Range Comments PROTIME (BEAKER) (test oddd=129) 23.2 seconds 11.7-14.7 INR (BEAKER) (test clrj=310) 2.2 <=5.9 RECOMMENDED COUMADIN/WARFARIN INR THERAPY RANGESSTANDARD DOSE: 2.0 - 3.0 Includes: PROPHYLAXIS forvenous thrombosis, systemic embolization; TREATMENT for venous thrombosis and/or pulmonary embolus.HIGH RISK: Target INR is 2.5-3.5 for patients with mechanical heart valves.B-TYPE NATRIURETIC FACTOR (BNP)2018-07 12:47:00 Test Item Value Reference Range Comments B-TYPE NATRIURETIC PEPTIDE (BEAKER) (test 4832 pg/mL 0-100 lftd=003) [id number] 12:45:00 Test Item Value Reference Range Comments LIPASE (BEAKER) (test qxuh=787) 18 U/L 8-78 HEPATIC FUNCTION [id number] 12:45:00 Test Item Value Reference Range Comments TOTAL PROTEIN (BEAKER) (test wbtu=782) 6.6 gm/dL 6.0-8.3 ALBUMIN (BEAKER) (test sqcx=5880) 3.8 g/dL 3.5-5.0 BILIRUBIN TOTAL (BEAKER) (test vwol=615) 1.4 mg/dL 0.2-1.2 BILIRUBIN DIRECT (BEAKER) (test obyw=727) 1.1 mg/dL 0.1-0.5 ALKALINE PHOSPHATASE (BEAKER) (test khqh=705) 56 U/L 40-150 AST (SGOT) (BEAKER) (test nzzl=427) 2387 U/L 5-34 ALT (SGPT) (BEAKER) (test exmp=883) 1730 U/L 6-55 LACTIC ACID, [id number] 12:39:00 Test Item Value Reference Range Comments LACTATE BLOOD VENOUS (2) 3.2 mmol/L 0.5-2.2 Specimen slightly hemolyzed (BEAKER) (test lefm=6779) BLOOD GAS, [id number] 12:25:00 Test Item Value Reference Range Comments PH ARTERIAL (BEAKER) (test nrhf=023) 7.35 7.35-7.45 PCO2 ARTERIAL (BEAKER) (test mcaq=543) 41 mmHg 35-45 PO2 ARTERIAL (BEAKER) (test pnwq=765) 85 mmHg 80-90 O2 SATURATION ARTERIAL (BEAKER) (test lzvc=231) 96.2 % 96.0-97.0 HCO3 ARTERIAL (BEAKER) (test zetf=606) 22 mmol/L 21-29 BASE EXCESS ARTERIAL (BEAKER) (test pdlx=116) -3.4 mmol/L -2.0-3.0 PATIENT TEMPERATURE (BEAKER) (test bpkw=7244) 36.4 C FIO2 (BEAKER) (test bzza=2471) 28.0 % POCT-GLUCOSE [id number] 12:21:00 Test Item Value Reference Range Comments POC-GLUCOSE METER (BEAKER) 83 mg/dL 70-110 TESTED AT [address] (test rwmw=6364) [facility] [address] U/S, ABDOMINAL, [id number] 11:45:00Abdomen limited area? Add comment if clarification [...] Verified Date/Time : 07/26/2018 11:45:22 Reading Location: [facility] C013Y CT Body Reading Room RAD , CHEST, 1 VIEW, NON [id number] 11:10:00Reason for exam:->Persistent coughShould this be performed [...] Robert MDReport Verified Date/Time: 11:10:13 Reading Location: [facility] B1 C013V Neuro Reading Room RAD, CHEST, 2 [id number] 18:51:00Reason for exam:->ABNORMAL IMAGING RESULTFINAL REPORT Chest, [...] Delgado MDReport Verified Date/Time: 18:51:08 Reading Location: [address] Consult Reading Room Electronicallysigned by: GALLO DELGADO M.D. on 03/23/2018 06:51 PMB-TYPE NATRIURETIC FACTOR (BNP)2018-03-23 18:29:00 Test Item Value Reference Range Comments B-TYPE NATRIURETIC PEPTIDE (BEAKER) (test 1420 pg/mL 0-100 tzmk=335) RAPID [id number] 18:27:00 Test Item Value Reference Range Comments RAPID MYOGLOBIN (BEAKER) (test wabm=2429) 438 ng/mL <107 RAPID [id number] 18:27:00 Test Item Value Reference Range Comments RAPID CKMB (BEAKER) (test qncl=1634) 3.2 ng/mL 0.0-4.3 RAPID TROPONIN [id number] 18:27:00 Test Item Value Reference Range Comments RAPID TROPONIN I (BEAKER) (test torn=0475) < ng/mL <0.05 PT/[id number] 18:23:00 Test Item Value Reference Range Comments PROTIME (BEAKER) (test vdaq=776) 11.3 seconds 9.8-12.0 INR (BEAKER) (test qdfq=506) 1.1 <=5.9 PARTIAL THROMBOPLASTIN TIME (BEAKER) (test 22.5 seconds 25.8-34.5 vwom=749) RECOMMENDED COUMADIN/WARFARIN INR THERAPY RANGESSTANDARD DOSE: 2.0 - 3.0 Includes: PROPHYLAXIS forvenous thrombosis, systemic embolization; TREATMENT for venous thrombosis and/or pulmonary embolus.HIGH RISK: Target INR is 2.5-3.5 for patients with mechanical heart valves.BASIC METABOLIC [id number] 18:21: 00 Test Item Value Reference Range Comments SODIUM (BEAKER) (test 138 meq/L 135-148 zdvo=372) POTASSIUM (BEAKER) (test 4.7 meq/L 3.6-5.5 tjqi=893) CHLORIDE (BEAKER) (test 99 meq/L 98-106 hgfw=188) CO2 (BEAKER) (test 29 meq/L 24-32 pptm=053) BLOOD UREA NITROGEN 36 mg/dL 10-26 (BEAKER) (test dseu=342) CREATININE (BEAKER) (test 5.15 mg/dL 0.50-1.20 mbwi=783) GLUCOSE RANDOM (BEAKER) 94 mg/dL 70-110 (test bhfw=251) CALCIUM (BEAKER) (test 9.2 mg/dL 8.5-10.5 pfar=088) EGFR (BEAKER) (test 11 mL/min/1.73 sq m ESTIMATED GFR IS NOT myhg=2715) ACCURATE CREATININE CLEARANCE IN PREDICTING GLOMERULAR FILTRATION RATE. ESTIMATED GFR IS NOT APPLICABLE FOR DIALYSIS PATIENTS. [id number] 18:18:00 Test Item Value Reference Range Comments MAGNESIUM (BEAKER) (test kaaf=784) 2.3 mg/dL 1.5-3.0 CREATINE KINASE (CK)2018-03-23 18:18:00 Test Item Value Reference Range Comments CREATINE KINASE TOTAL (BEAKER) (test abwo=068) 50 U/L 40-250 CBC W/PLT COUNT & AUTO [id number] 18:15:00 Test Item Value Reference Range Comments WHITE BLOOD CELL COUNT (BEAKER) (test leqe=535) 9.3 K/ L 4.0-10.0 RED BLOOD CELL COUNT (BEAKER) (test fbbt=293) 3.48 M/ L 4.20-5.80 HEMOGLOBIN (BEAKER) (test mgib=159) 10.9 GM/DL 13.0-16.8 HEMATOCRIT (BEAKER) (test btxn=918) 33.0 % 40.0-50.0 MEAN CORPUSCULAR VOLUME (BEAKER) (test xfxl=037) 94.8 fL 82.0-98.0 MEAN CORPUSCULAR HEMOGLOBIN (BEAKER) (test 31.2 pg 27.0-33.0 kpmy=919) MEAN CORPUSCULAR HEMOGLOBIN CONC (BEAKER) (test 32.9 GM/DL 32.0-36.0 bsxq=160) RED CELL DISTRIBUTION WIDTH (BEAKER) (test 13.7 % 10.3-14.2 gzpl=278) PLATELET COUNT (BEAKER) (test onts=779) 277 K/CU MM 150-430 MEAN PLATELET VOLUME (BEAKER) (test xoay=981) 8.8 fL 6.5-10.5 NEUTROPHILS RELATIVE PERCENT (BEAKER) (test 72 % vaze=405) LYMPHOCYTES RELATIVE PERCENT (BEAKER) (test 15 % sexi=866) MONOCYTES RELATIVE PERCENT (BEAKER) (test 9 % rghv=744) EOSINOPHILS RELATIVE PERCENT (BEAKER) (test 3 % jffw=860) BASOPHILS RELATIVE PERCENT (BEAKER) (test 1 % clxd=838) NEUTROPHILS ABSOLUTE COUNT (BEAKER) (test 6.68 K/ L 1.80-8.00 khto=036) LYMPHOCYTES ABSOLUTE COUNT (BEAKER) (test 1.41 K/ L 1.48-4.50 utbu=898) MONOCYTES ABSOLUTE COUNT (BEAKER) (test 0.83 K/ L 0.00-1.30 pudg=331) EOSINOPHILS ABSOLUTE COUNT (BEAKER) (test 0.32 K/ L 0.00-0.50 tpch=357) BASOPHILS ABSOLUTE COUNT (BEAKER) (test 0.05 K/ L 0.00-0.20 ehvi=871)
--- NOTE | 2019-01-11 08:39 | EKG ---
Test Date: 2019-01-10 Test Time: 09:08:55 Waterproof Material Folder: FLOR MEASUREMENT RESULTS: Intervals: Rate: 73 MA: 262 QRSD: 108 QT: 446 QTc: 491 [place]: P: 18 MA: 262 QRS: -24 T: 85 INTERPRETIVE STATEMENTS: Sinus rhythm with 1st degree AV block Minimal voltage criteria for LVH, may be normal variant Nonspecific ST and T wave abnormality Prolonged QT Abnormal ECG Compared to ECG 12/28/2018 20:27:16 First degree AV block now present Prolonged QT interval now present Atrial fibrillation no longer present Possible ischemia no longer present ST (T wave) deviation still present Electronically Signed On 01-11-19 08:39:08 [employer] by Shahram eNlson
== END 2019-01-10 18:07 | disposition home or self-care (01) ==
LOC: ER 08:30 → ERHOLD 14:08
PROVIDERS: ADMIT Internal Medicine; ATTEND Internal Medicine
PROC: 5A1D70Z Performance of Urinary Filtration, Intermittent, Less than 6 Hours Per Day (ICD-10-PCS; principal; 2019-01-10)
DX: J81.1 Chronic pulmonary edema (principal); I48.20 Chronic atrial fibrillation, unspecified; E11.22 Type 2 diabetes mellitus with diabetic chronic kidney disease; I12.0 Hypertensive chronic kidney disease with stage 5 chronic kidney disease or end stage renal disease; N18.6 End stage renal disease; B20 Human immunodeficiency virus [HIV] disease; Z99.2 Dependence on renal dialysis
CPT/HCPCS: 93005; 87040 ×2; 85025; 80048; 36415; 83735; 82550; 85610; 85379; 80076; 85730; 84484; 82553; 83690; 83880; 71045; 96374; 99285; 90935; J1644; G0257; G0378 ×2